=== PATIENT | female | born 1930 | race Two or more races ===

== ENCOUNTER 2016-08-05 15:22 | Inpatient (IN) | payer OTHER ==
[~2016-08-05] VITALS: Ht 162.6 cm; Wt 86.4 kg
[~2016-08-05 15:22] MED LIST: ALLO100T PO; ASPI81TA50 PO; CARV25TA2 PO; CHOL2000 PO; CYCL10TA2 PO; DILT180C29 PO; FOLI0.8T3 PO; FURO80TA72 PO; HYDR-2868 PO; INSU100C4 SQ; INSU100V8 SQ; LATA2.5D3 OP; SEVE2.4P PO; SEVE800T9 PO; SIMV10TA3 PO
[2016-08-05 19:00] VITALS: BP 145/51
[2016-08-05] MEDS ORDERED: MAG HYDROX/ALUMINUM HYD/SIMETH 30 ML ORAL.SUSP PO PRN (20:00)
[2016-08-05] MEDS ORDERED: FENTANYL PF 100 MCG/2 ML VIAL. IV PRN (20:00)
[2016-08-05] MEDS ORDERED: CALCIUM CARBONATE 500 MG TAB.CHEW PO PRN (20:00)
[2016-08-05] MEDS ORDERED: OXYCODONE IR 5 MG TABLET. PO PRN (20:00)
[2016-08-05] MEDS ORDERED: MAGNESIUM HYDROXIDE 2,400 MG/30 ML ORAL.SUSP. PO PRN (20:00)
[2016-08-05] MEDS ORDERED: BISACODYL 10 MG SUPP.RECT. PR PRN (20:00)
[2016-08-05] MEDS ORDERED: PROCHLORPERAZINE 10 MG/2 ML VIAL. IV PRN (20:00)
[2016-08-05] MEDS ORDERED: ACETAMINOPHEN 325 MG TABLET. PO PRN (20:00)
[2016-08-05] MEDS ORDERED: ONDANSETRON PF 4 MG/2 ML VIAL. IV PRN (20:00)
[2016-08-05] MEDS ORDERED: LACTULOSE 20 GM/30 ML SOLUTION. PO PRN (20:00)
[2016-08-05] MEDS ORDERED: PROCHLORPERAZINE 25 MG SUPP.RECT. PR PRN (20:00)
[2016-08-05] MEDS ORDERED: SEVELAMER CARBONATE 800 MG TABLET. PO SCH (21:00)
[2016-08-05] MEDS: LATANOPROST 0.005% OPHTH SOLUTION 2.5ML BOTTLE. OU SCH (21:34)
[2016-08-05] MEDS: CEFTRIAXONE SODIUM 1 GM in IV NORMAL SALINE 50ML 50 ML IV SCH (21:34)
[2016-08-05] MEDS: CYCLOBENZAPRINE 10 MG TABLET. PO SCH (21:35)
[2016-08-05] MEDS: SEVELAMER CARBONATE 2.4 GM PACKET. PO SCH (21:35)
[2016-08-05] MEDS: DOCUSATE SODIUM 100 MG CAPSULE. PO SCH (21:35)
[2016-08-05] MEDS: BENZONATATE 100 MG CAPSULE. PO SCH (21:35)
[2016-08-05] MEDS: INSULIN DETEMIR 300 UNITS/3 ML INSULN.PEN. SQ SCH (21:46)
[2016-08-05] MEDS: HEPARIN PF for SUB-Q USE 5,000 UNIT/0.5 ML VIAL. SQ SCH (21:46)
[2016-08-05] MEDS: AZITHROMYCIN 250 MG in IV NORMAL SALINE 250ML 250 ML IV SCH (22:21)
[2016-08-05] MEDS: IPRATRPIUM/ALBUTEROL 0.5/2.5MG 3 ML NEBU. NEB SCH (22:26)
[2016-08-05] MEDS ORDERED: SODI15OR PO (22:38)
[2016-08-05] MEDS ORDERED: ONDA4TAB12 PO (22:38)
[2016-08-05 23:25] VITALS: BP 105/37
[2016-08-06 03:25] VITALS: BP 119/47
[2016-08-06 06:05] LABS: CALCIUM 7.6 mg/dL (8.5-10.1); CREATININE 6.8 mg/dL (0.6-1.0); GFR 5.8; POTASSIUM 4.9 mmol/L (3.5-5.1)
[2016-08-06] MEDS: HEPARIN PF for SUB-Q USE 5,000 UNIT/0.5 ML VIAL. SQ SCH ×4 (06:14→21:12)
[2016-08-06 07:00] VITALS: BP 115/67
[2016-08-06] MEDS: FUROSEMIDE 80 MG TABLET. PO SCH ×2 (08:01→14:00)
[2016-08-06] MEDS: DILTIAZEM HCL 180 MG CAP.ER.24H PO SCH (08:01)
[2016-08-06] MEDS: ASPIRIN ENTERIC COATED 81 MG TABLET.DR. PO SCH (08:01)
[2016-08-06] MEDS: DOCUSATE SODIUM 100 MG CAPSULE. PO SCH ×2 (08:01→21:03)
[2016-08-06] MEDS: BENZONATATE 100 MG CAPSULE. PO SCH ×3 (08:02→21:03)
[2016-08-06] MEDS: CHOLECALCIFEROL (VITAMIN D3) 1,000 UNIT TABLET PO SCH (08:02)
[2016-08-06] MEDS: CYCLOBENZAPRINE 10 MG TABLET. PO SCH ×3 (08:02→21:03)
[2016-08-06] MEDS: SEVELAMER CARBONATE 2.4 GM PACKET. PO SCH ×3 (08:02→21:03)
[2016-08-06] MEDS ORDERED: ACETAMINOPHEN 325 MG TABLET. PO PRN (09:00)
[2016-08-06] MEDS ORDERED: ALBUTEROL SULFATE 2.5 MG/3 ML NEBU. NEB PRN (09:00)
[2016-08-06] MEDS ORDERED: hydrALAZINE 20 MG/ML VIAL. IVP PRN (09:00)
[2016-08-06] MEDS ORDERED: ONDANSETRON PF 4 MG/2 ML VIAL. IV PRN (09:00)
--- NOTE | 2016-08-06 10:39 | PDOC1 ---
History and Physical Past Medical History Cardiovascular: CAD, HTN Pulmonary: Bronchitis GI: No pertinent hx Renal/: Chronic renal insuff, Chronic renal failure, UTI Endocrine: Diabetes Past Surgical History Past Surgical History: CABG Family History Family History: Heart Disease, High Cholestrol, Hypertension Social History ALCOHOL: none Drugs: None Current Problem List Problem List Problems Medical Problems: (1) ESRD (end stage renal disease) Status: Acute Current Medications Current Medications Current Medications Medications (Trade) Dose Ordered Sig/Homa Start Time Stop Time Status Last Admin Dose Admin Acetaminophen (Tylenol) 325 mg PRN Q6HRS PRN 08/06/16 09:00 Al Hydroxide/Mg Hydroxide (Mylanta Plus Xs) 30 ml PRN Q3HRS PRN 08/05/16 20:00 Albuterol Sulfate (Ventolin Neb Soln) 2.5 mg PRN Q4HRS PRN 08/06/16 09:00 Albuterol/ Ipratropium 3 ml 3 ml RTQID 08/05/16 20:00 08/05/16 22:26 3 ML Allopurinol (Zyloprim) 100 mg DAILYWSUP 08/06/16 17:00 Aspirin (Ecotrin) 81 mg DAILY 08/06/16 09:00 08/06/16 08:01 81 MG Azithromycin/ Sodium Chloride (Zithromax/Iv Sodium Chloride 0.9% 250ml) 250 ml @ 250 mls/hr Q24H 08/05/16 21:00 08/05/16 22:21 250 MLS/HR Benzonatate (Tessalon Perle) 100 mg [id number] 08/05/16 21:00 08/06/16 08:02 100 MG Bisacodyl (Dulcolax Supp) 10 mg PRN DAILY PRN 08/05/16 20:00 Calcium Carbonate/ Glycine (Tums) 500 mg PRN Q3HRS PRN 08/05/16 20:00 Carvedilol (Coreg) 12.5 mg DAILYWLUN 08/06/16 12:00 Ceftriaxone Sodium 1 gm/ Sodium Chloride 50 ml @ 100 mls/hr Q24H 08/05/16 20:00 08/05/16 21:34 100 MLS/HR Cyclobenzaprine HCl (Flexeril) 10 mg TID 08/05/16 21:00 08/06/16 08:02 10 MG Diltiazem HCl (Cardizem 24hr Cd) 180 mg DAILY 08/06/16 09:00 08/06/16 08:01 180 MG Docusate Sodium (Colace) 100 mg BID 08/05/16 21:00 08/06/16 08:01 100 MG Fentanyl Citrate (Fentanyl 2ml Vial) 25 mcg PRN Q2HR PRN 08/05/16 20:00 Furosemide (Lasix) 80 mg [id number] 08/06/16 09:00 08/06/16 08:01 80 MG Heparin Sodium (Porcine) 5,000 unit Q8HRS 08/05/16 22:00 08/06/16 06:14 5,000 UNIT Hydralazine HCl (Apresoline) 10 mg PRN Q4HRS PRN 08/06/16 09:00 Insulin Detemir (Levemir) 25 units QHS 08/05/16 21:00 08/05/16 21:46 25 UNITS Lactulose 20 gm PRN Q12HR PRN 08/05/16 20:00 Latanoprost (Xalatan) 1 drop HS 08/05/16 21:00 08/05/16 21:34 1 DROP Magnesium Hydroxide (Milk Of Magnesia) 2,400 mg PRN Q12HR PRN 08/05/16 20:00 Ondansetron HCl (Zofran) 4 mg PRN Q8HRS PRN 08/06/16 09:00 Oxycodone HCl (Roxicodone) 5 mg PRN Q3HRS PRN 08/05/16 20:00 Prochlorperazine (Compazine) 25 mg PRN Q12HR PRN 08/05/16 20:00 Prochlorperazine Edisylate (Compazine) 10 mg PRN Q6HRS PRN 08/05/16 20:00 Sevelamer Carbonate (Renvela) 400 mg TID 08/05/16 21:00 UNV Vitamin B Complex/ Vitamin C (Bela-Roland) 1 tab DAILYBFRSUP 08/06/16 17:00 Vitamin D (Vitamin D3) 2,000 unit DAILY 08/06/16 09:00 08/06/16 08:02 2,000 UNIT Allergies Allergies Allergies Coded Allergies Type Severity Reaction Last Updated Verified morphine Allergy Intermediate 10/25/14 Yes ROS Review of System CONSTITUTIONAL: No fever or chills EYES: No recent changes SKIN: No rash or itching CARDIOVASCULAR: No chest pain, syncope, palpitations, or edema RESPIRATORY: SOB or cough GASTROINTESTINAL: No nausea, vomiting or abdominal pain NEUROLOGICAL: No headaches or weakness ENDOCRINE: No cold or heat intolerance GENITOURINARY: No urgency or frequency of urination MUSCULOSKELETAL: No back pain or joint pain LYMPHATICS: No enlarged lymph nodes PSYCHIATRIC: No anxiety or depression Physical Exam Physical Exam GEN.: No apparent distress. Alert and oriented. HEENT: Head is normocephalic, atraumatic NECK: Supple. no JVD LUNGS: INSPIRATORY AND EXP WHEEZING. HEART: RRR, S1, S2 present. Peripheral pulses intact ABDOMEN: Soft, nontender. Positive bowel sounds. EXTREMITIES: Without any cyanosis. NEUROLOGIC: Normal speech, normal tone PSYCHIATRIC: Normal affect, normal mood. SKIN: No ulcerations Vitals Vitals Vital Signs Date Time Temp Pulse Resp B/P Pulse Ox O2 Delivery O2 Flow Rate FiO2 08/06/16 08:01 103 115/67 08/06/16 07:00 97.9 16 94 Nasal Cannula 2.0 97.9 Labs Labs Laboratory Tests Test 08/05/16 20:55 08/06/16 05:00 08/06/16 07:15 Glucose (Fingerstick) 297mg/dL (70-99) 259mg/dL (70-99) Sodium Level 137mmol/L (136-145) Potassium Level 4.9mmol/L (3.5-5.1) Chloride Level 96mmol/L (98-107) Carbon Dioxide Level 18mmol/L (21-32) Anion Gap 23 (6-14) Blood Urea Nitrogen 79mg/dL (7-20) Creatinine 6.8mg/dL (0.6-1.0) Estimated GFR (Cockcroft-Gault) 5.8 Glucose Level 320mg/dL (70-99) Calcium Level 7.6mg/dL (8.5-10.1) Laboratory Tests Test 08/05/16 20:55 08/06/16 05:00 08/06/16 07:15 Glucose (Fingerstick) 297mg/dL (70-99) 259mg/dL (70-99) Sodium Level 137mmol/L (136-145) Potassium Level 4.9mmol/L (3.5-5.1) Chloride Level 96mmol/L (98-107) Carbon Dioxide Level 18mmol/L (21-32) Anion Gap 23 (6-14) Blood Urea Nitrogen 79mg/dL (7-20) Creatinine 6.8mg/dL (0.6-1.0) Estimated GFR (Cockcroft-Gault) 5.8 Glucose Level 320mg/dL (70-99) Calcium Level 7.6mg/dL (8.5-10.1) VTE Prophylaxis Ordered VTE Prophylaxis Devices: Yes VTE Pharmacological Prophylaxi: Yes DIMAS LITTLEJOHN MD Aug 06, 2016 10:39
[2016-08-06] MEDS ORDERED: DEXTROSE 50% 25 GM / 50ML DISP.SYRIN. IV PRN (10:45)
[2016-08-06 10:49] VITALS: BP 107/60
[2016-08-06] MEDS ORDERED: GUAIFENESIN 200 MG/10 ML LIQUID. PO PRN (11:00)
[2016-08-06] MEDS: IPRATRPIUM/ALBUTEROL 0.5/2.5MG 3 ML NEBU. NEB SCH ×3 (11:22→20:01)
--- NOTE | 2016-08-06 11:27 | PDOC2 ---
CONSULT Date of Consult Date of Consult DATE: 08/06/16 TIME: 11:23 Reason for Consult Reason for Consult: ESRD Referring Physician Referring Physician: MOIZ Identification/Chief Complaint Chief Complaint SOB Source Source: Chart review, Patient History of Present Illness Reason for Visit: THIS IS AN 85 YR OLD ADMITTED WITH COUGHING AND SOB AND PROB DX OF CAP. SHE HAS ESRD AND IS ON HD IN [place] ON MWF. HER LAST TX WAS SATURDAY. LABS ARE C/W ESRD Past Medical History Cardiovascular: CAD, HTN Pulmonary: Bronchitis GI: No pertinent hx Musculoskeletal: low back pain Renal/: Chronic renal insuff, Chronic renal failure, UTI Endocrine: Diabetes, Hyperparathyroidism Past Surgical History Past Surgical History RIGHT ARM AVF Past Surgical History: CABG Family History Family History: Heart Disease, High Cholestrol, Hypertension Social History ALCOHOL: none Drugs: None Current Problem List Problem List Problems Medical Problems: (1) ESRD (end stage renal disease) Status: Acute Current Medications Current Medications Current Medications Ondansetron HCl (Zofran) 4 mg PRN Q6HRS PRN IV NAUSEA/VOMITING Last administered on 08/05/16 21:38; Start 08/05/16 at 20:00 Prochlorperazine Edisylate (Compazine) 10 mg PRN Q6HRS PRN IV NAUSEA/VOMITING; Start 08/05/16 at 20:00 Prochlorperazine (Compazine) 25 mg PRN Q12HR PRN [place] NAUSEA/VOMITING; Start 08/05 at 20:00 Al Hydroxide/Mg Hydroxide (Mylanta Plus Xs) 30 ml PRN Q3HRS PRN PO HEARTBURN / GAS; Start 08/05/16 at 20:00 Calcium Carbonate/ Glycine (Tums) 500 mg PRN Q3HRS PRN PO UPSET STOMACH; Start 08/05/16 at 20:00 Oxycodone HCl (Roxicodone) 5 mg PRN Q3HRS PRN PO BREAKTHROUGH PAIN; Start at 20:00 Acetaminophen (Tylenol) 650 mg PRN Q6HRS PRN PO MILD PAIN / TEMP; Start at 20:00 Docusate Sodium (Colace) 100 mg BID PO Last administered on 08/06/16 08:01; Start 08/05/16 at 21:00 Magnesium Hydroxide (Milk Of Magnesia) 2,400 mg PRN Q12HR PRN PO CONSTIPATION; Start 08/05/16 at 20:00 Lactulose 20 gm PRN Q12HR PRN PO CONSTIPATION; Start 08/05/16 at 20:00 Bisacodyl (Dulcolax Supp) 10 mg PRN DAILY PRN NH CONSTIPATION; Start 08/05/16 at 20:00 Heparin Sodium (Porcine) 5,000 unit Q8HRS SQ Last administered on 08/06/16 06: 14; Start 08/05/16 at 22:00 Albuterol/ Ipratropium 3 ml 3 ml RTQID NEB Last administered on 08/06/16 11:22 ; Start 08/05/16 at 20:00 Ceftriaxone Sodium 1 gm/ Sodium Chloride 50 ml @ 100 mls/hr Q24H IV Last administered on 08/05/16 21:34; Start 08/05/16 at 20:00 Azithromycin/ Sodium Chloride (Zithromax/Iv Sodium Chloride 0.9% 250ml) 250 ml @ 250 mls/hr Q24H IV Last administered on 08/05/16 22:21; Start 08/05/16 at 21: 00 Fentanyl Citrate (Fentanyl 2ml Vial) 25 mcg PRN Q2HR PRN IV PAIN; Start at 20:00 Allopurinol (Zyloprim) 100 mg DAILYWSUP PO ; Start 08/06/16 at 17:00 Aspirin (Ecotrin) 81 mg DAILY PO Last administered on 08/06/16 08:01; Start at 09:00 Cyclobenzaprine HCl (Flexeril) 10 mg TID PO Last administered on 08/06/16 08: 02; Start 08/05/16 at 21:00 Diltiazem HCl (Cardizem 24hr Cd) 180 mg DAILY PO Last administered on 08:01; Start 08/06/16 at 09:00 Vitamin B Complex/ Vitamin C (Bela-Roland) 1 tab DAILYBFRSUP PO ; Start 08/06/16 at 17:00 Furosemide (Lasix) 80 mg [id number] PO Last administered on 08/06/16 08:01; Start 08/06/16 at 09:00 Hydralazine HCl (Apresoline) 25 mg QTUTHSASU PO ; Start 08/07/16 at 16:00 Latanoprost (Xalatan) 1 drop HS OU Last administered on 08/05/16 21:34; Start 08/05/16 at 21:00 Sevelamer Carbonate (Renvela) 2.4 gm TID PO Last administered on 08/06/16 08: 02; Start 08/05/16 at 21:00 Sevelamer Carbonate (Renvela) 400 mg TID PO ; Start 08/05/16 at 21:00; Status UNV Carvedilol (Coreg) 12.5 mg DAILYWLUN PO ; Start 08/06/16 at 12:00 Vitamin D (Vitamin D3) 2,000 unit DAILY PO Last administered on 08/06/16 08:02 ; Start 08/06/16 at 09:00 Insulin Detemir (Levemir) 25 units QHS SQ Last administered on 08/05/16 21:46; Start 08/05/16 at 21:00 Benzonatate (Tessalon Perle) 100 mg [id number] PO Last administered on 08/06/16 08 :02; Start 08/05/16 at 21:00 Acetaminophen (Tylenol) 325 mg PRN Q6HRS PRN PO MILD PAIN / TEMP; Start at 09:00 Hydralazine HCl (Apresoline) 10 mg PRN Q4HRS PRN IVP ELEVATED BP, SEE COMMENTS ; Start 08/06/16 at 09:00 Ondansetron HCl (Zofran) 4 mg PRN Q8HRS PRN IV NAUSEA/VOMITING; Start 08/06/16 at 09:00 Albuterol Sulfate (Ventolin Neb Soln) 2.5 mg PRN Q4HRS PRN NEB SHORTNESS OF BREATH; Start 08/06/16 at 09:00 Heparin Sodium (Porcine) 5,000 unit Q8HRS SQ ; Start 08/06/16 at 14:00 Insulin Aspart (Novolog) 0-9 UNITS TIDWMEALS SQ ; Start 08/06/16 at 12:00 Dextrose (Dextrose 50%-Water Syringe) 12.5 gm PRN Q15MIN PRN IV SEE COMMENTS; Start 08/06/16 at 10:45 Guaifenesin (Robitussin) 200 mg PRN Q4HRS PRN PO COUGH; Start 08/06/16 at 11:00 Active Scripts Active Reported Ondansetron Odt (Ondansetron) 4 Mg Tab.rapdis 1 Tab PO PRN Q8HRS PRN Sodium Polystyrene Sulfonate 15 Gm/60 Ml Oral.susp 30 Gm PO WEEKLY Novolog (Insulin Aspart) 100 Unit/1 Ml Cartridge 0 SQ sliding scale: 140 - 180 = 1 unit 181 - 240 = 2 units 241 - 300 = 3 units 301 - 400 = 4 units 401 - 500 = 5 units Lantus (Insulin Glargine,Hum.rec.anlog) 100 Unit/1 Ml Vial 25 Unit SQ HS Renvela (Sevelamer Carbonate) 2.4 Gm Powd.pack 2.4 Gm PO TID take with 20 oz cranberry juice Nephro-Roland Tablet (Folic Acid/Vitamin B Comp W-C) 0.8 Mg Tablet 1 Tab PO DAILYBFRSUP Vitamin D (Cholecalciferol (Vitamin D3)) 2,000 Unit Capsule 1 Cap PO HS Latanoprost 2.5 Ml Drops 1 Drop OP HS Hydralazine Hcl 25 Mg Tablet 1 Tab PO QTUTHSASU Allopurinol 100 Mg Tablet 1 Tab PO DAILYWSUP Cyclobenzaprine Hcl 10 Mg Tablet 1 Tab PO TID Diltiazem 24HR Cd (Diltiazem Hcl) 180 Mg Cap.er.24h 1 Cap PO DAILY Lasix (Furosemide) 80 Mg Tablet 1 Tab PO BID Carvedilol 25 Mg Tablet 12.5 Tab PO DAILYWLUN Aspir-Low (Aspirin) 81 Mg Tablet. 1 Tab PO DAILY Allergies Allergies: Coded Allergies: morphine (Verified Allergy, Intermediate, 10/25/14) ROS General: YES: Fatigue, Malaise PSYCHOLOGICAL ROS: YES: Anxiety Eyes: Yes Blurry vision HEENT: YES: Heacaches Respiratory: YES: Cough, Shortness of breath, Sputum Changes Cardiovascular: yes Orthopnea Gastrointestinal: Yes Constipation Genitourinary: YES Other (ANURIA) Musculoskeletal: Yes Muscular Weakness Neurological: Yes Weakness Skin: Yes Dry Skin Physical Exam General: Alert, Cooperative HEENT: Atraumatic, PERRLA Lungs: Other (DECREASED AT BASES) Heart: Regular rate Abdomen: Normal bowel sounds Extremities: No clubbing, No edema Skin: No rashes Neuro: Normal speech, Cranial nerves 3-12 NL Psych/Mental Status: Mental status NL, Mood NL MUSCULOSKELETAL: No deformity, No swelling Vitals VITALS Vital Signs Date Time Temp Pulse Resp B/P Pulse Ox O2 Delivery O2 Flow Rate FiO2 08/06/16 10:49 97.9 104 17 107/60 100 Nasal Cannula 2.0 97.9 Labs Labs Laboratory Tests Test 08/05/16 20:55 08/06/16 05:00 08/06/16 07:15 Glucose (Fingerstick) 297mg/dL (70-99) 259mg/dL (70-99) Sodium Level 137mmol/L (136-145) Potassium Level 4.9mmol/L (3.5-5.1) Chloride Level 96mmol/L (98-107) Carbon Dioxide Level 18mmol/L (21-32) Anion Gap 23 (6-14) Blood Urea Nitrogen 79mg/dL (7-20) Creatinine 6.8mg/dL (0.6-1.0) Estimated GFR (Cockcroft-Gault) 5.8 Glucose Level 320mg/dL (70-99) Calcium Level 7.6mg/dL (8.5-10.1) Laboratory Tests Test 08/05/16 20:55 08/06/16 05:00 08/06/16 07:15 Glucose (Fingerstick) 297mg/dL (70-99) 259mg/dL (70-99) Sodium Level 137mmol/L (136-145) Potassium Level 4.9mmol/L (3.5-5.1) Chloride Level 96mmol/L (98-107) Carbon Dioxide Level 18mmol/L (21-32) Anion Gap 23 (6-14) Blood Urea Nitrogen 79mg/dL (7-20) Creatinine 6.8mg/dL (0.6-1.0) Estimated GFR (Cockcroft-Gault) 5.8 Glucose Level 320mg/dL (70-99) Calcium Level 7.6mg/dL (8.5-10.1) Assessment/Plan Assessment/Plan IMP CAP/BRONCHITIS ANEMIA ESRD PLAN ANTIBIOTICS HD TODAY UF TO [facility] UPDATED PT AND FAMILY NANCY CALERO MD Aug 06, 2016 11:27
[2016-08-06] MEDS: CARVEDILOL 12.5 MG TABLET. PO SCH (12:00)
[2016-08-06] MEDS: INSULIN ASPART 300 UNITS/3 ML INSULN.PEN SQ SCH ×2 (12:40→17:00)
[2016-08-06 13:17] LABS: OBC FLU VALID
--- NOTE | 2016-08-06 13:23 | HP ---
ADMIT DATE: 08/06/2016 CHIEF COMPLAINT: Cough, intractable. HISTORY OF PRESENT ILLNESS: An 85-year-old female patient with history of hypertension and diabetes who presented to the ER at [facility] for intractable cough. The patient has a history of end-stage renal disease, currently on hemodialysis. She says her complaints have been there from last Saturday. She is coughing up whitish expectoration. No other symptoms such as hematemesis or hemoptysis. She has never been diagnosed with COPD. 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 Initial chest x-ray did not show any signs of pneumonia. However, she has diffuse expiratory and inspiratory wheezes at the time of her presentation. At the time of my examination, the patient still complains of some cough and expectoration and difficulty to breathe. PAST MEDICAL HISTORY: Please see my electronic H and P. REVIEW OF SYSTEMS: Please see my electronic H and P. PHYSICAL EXAMINATION: Please see my electronic H and P. LABORATORY FINDINGS: Data reviewed from [facility]: WBC 14.6, hemoglobin 11.8, hematocrit is 35, MCV is 35, and platelets 90. Venous lactate is 2.8. Troponin is less than 0.01. Sodium is 140, potassium 4, chloride is 98, carbon dioxide 19, anion gap is 23, calcium is 8.1, and creatinine is 5.9. Chest x-ray: No acute process seen. ASSESSMENT AND PLAN: 1. Acute respiratory distress present on admission, unclear etiology, possible bronchitis with reactive airway disease versus any viral infectious process. 2. Diabetes mellitus with hyperglycemia. 3. End-stage renal disease. 4. History of coronary artery disease with coronary artery bypass graft. 5. Hypertension. PLAN: 1. The patient has been started on broad-spectrum antibiotics, and I will continue at this time and ask Pulmonary and Critical Care to evaluate her for further workup. 2. Nephrology has been consulted. 3. I will start her on home-dose of Levemir with sliding scale insulin. 4. Labs such as influenza PCR have been ordered. 5. DVT prophylaxis with heparin. 6. Repeat chest x-ray this morning is pending. 7. She has been kept on telemetry. Prognosis is guarded. Sputum cultures. Plan was discussed with the patient's daughter and the patient. They agreed with the current plan. DIMAS LITTLEJOHN MD DR: CAPO/regan JOB#: [id number] / [id number] YU
--- NOTE | 2016-08-06 14:24 | RAD ---
Portable chest, 08/06/2016: History: Pneumonia Comparison is made to a study from 11/30/2015. There has been a previous median sternotomy. The heart is enlarged. The pulmonary vascularity is normal. There is mild linear atelectasis in the right lung base and lingula, superimposed upon mild lingular scarring. No significant pleural fluid is identified. IMPRESSION: 1. Cardiomegaly and aortic atherosclerosis. 2. Mild right basilar and lingular atelectasis.
[2016-08-06 14:52] VITALS: BP 121/72
[2016-08-06 16:42] LABS: BASO # 0.1 x10^3/uL (0.0-0.2); BASO % 1 % (0-3); EOS % 0 % (0-3); HEMATOCRIT 31.5 % (36.0-47.0); HEMOGLOBIN 10.4 g/dL (12.0-15.5); LYMPH # 1.9 x10^3/uL (1.0-4.8); LYMPH % 20 % (24-48); MEAN CORPUSCULAR HEMOGLOBIN 36 pg (25-35); MEAN CORPUSCULAR HGB CONC 33 g/dL (31-37); MEAN CORPUSCULAR VOLUME 108 fL (79-100); MONO % 8 % (0-9); NEUT % 72 % (31-73); PLATELET COUNT 66 x10^3/uL (140-400); RED BLOOD COUNT 2.93 x10^6/uL (3.50-5.40); RED CELL DISTRIBUTION WIDTH 15.4 % (11.5-14.5); WHITE BLOOD COUNT 9.8 x10^3/uL (4.0-11.0)
[2016-08-06 16:55] LABS: INR 1.6 (0.8-1.1); PROTHROMBIN TIME PATIENT 17.7 SEC (11.7-14.0)
[2016-08-06] MEDS ORDERED: ALLOPURINOL 100 MG TABLET. PO SCH (17:00)
[2016-08-06] MEDS ORDERED: FOLIC/VIT B COMP W-C (RENAL) TABLET. PO SCH (17:00)
[2016-08-06 18:59] LABS: MAGNESIUM 2.3 mg/dL (1.8-2.4); PHOSPHORUS 8.1 mg/dL (2.6-4.7)
[2016-08-06 19:30] VITALS: BP 109/47
[2016-08-06] MEDS: CEFTRIAXONE SODIUM 1 GM in IV NORMAL SALINE 50ML 50 ML IV SCH (20:04)
--- NOTE | 2016-08-06 20:30 | PDOC ---
PULMONARY PROGRESS NOTES Vitals Vital Signs Date Time Temp Pulse Resp B/P Pulse Ox O2 Delivery O2 Flow Rate FiO2 08/06/16 20:02 Nasal Cannula 3.0 08/06/16 14:52 98.3 97 17 121/72 93 98.3 Lungs: Other Cardiovascular: S1, S2 Labs Laboratory Tests Test 08/05/16 20:55 08/06/16 05:00 08/06/16 07:15 08/06/16 11:11 Glucose (Fingerstick) 297mg/dL (70-99) 259mg/dL (70-99) 214mg/dL (70-99) Sodium Level 137mmol/L (136-145) Potassium Level 4.9mmol/L (3.5-5.1) Chloride Level 96mmol/L (98-107) Carbon Dioxide Level 18mmol/L (21-32) Anion Gap 23 (6-14) Blood Urea Nitrogen 79mg/dL (7-20) Creatinine 6.8mg/dL (0.6-1.0) Estimated GFR (Cockcroft-Gault) 5.8 Glucose Level 320mg/dL (70-99) Calcium Level 7.6mg/dL (8.5-10.1) Test 08/06/16 12:45 08/06/16 16:15 08/06/16 17:34 08/06/16 19:56 Influenza Type A Antigen Negative (NEGATIVE) Influenza Type B Antigen Negative (NEGATIVE) White Blood Count 9.8x10^3/uL (4.0-11.0) Red Blood Count 2.93x10^6/uL (3.50-5.40) Hemoglobin 10.4g/dL (12.0-15.5) Hematocrit 31.5% (36.0-47.0) Mean Corpuscular Volume 108fL (79-100) Mean Corpuscular Hemoglobin 36pg (25-35) Mean Corpuscular Hemoglobin Concent 33g/dL (31-37) Red Cell Distribution Width 15.4% (11.5-14.5) Platelet Count 66x10^3/uL (140-400) Neutrophils (%) (Auto) 72% (31-73) Lymphocytes (%) (Auto) 20% (24-48) Monocytes (%) (Auto) 8% (0-9) Eosinophils (%) (Auto) 0% (0-3) Basophils (%) (Auto) 1% (0-3) Neutrophils # (Auto) 7.0x10^3uL (1.8-7.7) Lymphocytes # (Auto) 1.9x10^3/uL (1.0-4.8) Monocytes # (Auto) 0.7x10^3/uL (0.0-1.1) Eosinophils # (Auto) 0.0x10^3/uL (0.0-0.7) Basophils # (Auto) 0.1x10^3/uL (0.0-0.2) Prothrombin Time 17.7SEC (11.7-14.0) Prothromb Time International Ratio 1.6 (0.8-1.1) Phosphorus Level 8.1mg/dL (2.6-4.7) Magnesium Level 2.3mg/dL (1.8-2.4) LN-Jml-A-Type Natriuretic Peptide > 13209ei/mL (0-449) Glucose (Fingerstick) 133mg/dL (70-99) 99mg/dL (70-99) Laboratory Tests Test 08/05/16 20:55 08/06/16 05:00 08/06/16 07:15 08/06/16 11:11 Glucose (Fingerstick) 297mg/dL (70-99) 259mg/dL (70-99) 214mg/dL (70-99) Sodium Level 137mmol/L (136-145) Potassium Level 4.9mmol/L (3.5-5.1) Chloride Level 96mmol/L (98-107) Carbon Dioxide Level 18mmol/L (21-32) Anion Gap 23 (6-14) Blood Urea Nitrogen 79mg/dL (7-20) Creatinine 6.8mg/dL (0.6-1.0) Estimated GFR (Cockcroft-Gault) 5.8 Glucose Level 320mg/dL (70-99) Calcium Level 7.6mg/dL (8.5-10.1) Test 08/06/16 12:45 08/06/16 16:15 08/06/16 17:34 08/06/16 19:56 Influenza Type A Antigen Negative (NEGATIVE) Influenza Type B Antigen Negative (NEGATIVE) White Blood Count 9.8x10^3/uL (4.0-11.0) Red Blood Count 2.93x10^6/uL (3.50-5.40) Hemoglobin 10.4g/dL (12.0-15.5) Hematocrit 31.5% (36.0-47.0) Mean Corpuscular Volume 108fL (79-100) Mean Corpuscular Hemoglobin 36pg (25-35) Mean Corpuscular Hemoglobin Concent 33g/dL (31-37) Red Cell Distribution Width 15.4% (11.5-14.5) Platelet Count 66x10^3/uL (140-400) Neutrophils (%) (Auto) 72% (31-73) Lymphocytes (%) (Auto) 20% (24-48) Monocytes (%) (Auto) 8% (0-9) Eosinophils (%) (Auto) 0% (0-3) Basophils (%) (Auto) 1% (0-3) Neutrophils # (Auto) 7.0x10^3uL (1.8-7.7) Lymphocytes # (Auto) 1.9x10^3/uL (1.0-4.8) Monocytes # (Auto) 0.7x10^3/uL (0.0-1.1) Eosinophils # (Auto) 0.0x10^3/uL (0.0-0.7) Basophils # (Auto) 0.1x10^3/uL (0.0-0.2) Prothrombin Time 17.7SEC (11.7-14.0) Prothromb Time International Ratio 1.6 (0.8-1.1) Phosphorus Level 8.1mg/dL (2.6-4.7) Magnesium Level 2.3mg/dL (1.8-2.4) PL-Yua-X-Type Natriuretic Peptide > 50567io/mL (0-449) Glucose (Fingerstick) 133mg/dL (70-99) 99mg/dL (70-99) Medications Active Scripts Medications Dose Route/Sig Days Date Category Dose Instructions Ondansetron Odt (Ondansetron) 4 Mg Tab.rapdis 1 Tab PO PRN Q8HRS PRN 08/05/16 Reported Sodium Polystyrene Sulfonate 15 Gm/60 Ml Oral.susp 30 Gm PO WEEKLY 08/05/16 Reported Novolog (Insulin Aspart) 100 Unit/1 Ml Cartridge 0 SQ 11/26/15 Reported sliding scale: 140 - 180 = 1 unit 181 - 240 = 2 units 241 - 300 = 3 units 301 - 400 = 4 units 401 - 500 = 5 units Lantus (Insulin Glargine,Hum.rec.anlog) 100 Unit/1 Ml Vial 25 Unit SQ HS 11/26/15 Reported Renvela (Sevelamer Carbonate) 2.4 Gm Powd.pack 2.4 Gm PO TID 11/26/15 Reported take with 20 oz cranberry juice Nephro-Roland Tablet (Folic Acid/Vitamin B Comp W-C) 0.8 Mg Tablet 1 Tab PO DAILYBFRSUP 11/26/15 Reported Vitamin D (Cholecalciferol (Vitamin D3)) 2,000 Unit Capsule 1 Cap PO HS 11/26/15 Reported Latanoprost 2.5 Ml Drops 1 Drop OP HS 11/26/15 Reported Hydralazine Hcl 25 Mg Tablet 1 Tab PO QTUTHSASU 11/26/15 Reported Allopurinol 100 Mg Tablet 1 Tab PO DAILYWSUP 11/26/15 Reported Cyclobenzaprine Hcl 10 Mg Tablet 1 Tab PO TID 11/26/15 Reported Diltiazem 24HR Cd (Diltiazem Hcl) 180 Mg Cap.er.24h 1 Cap PO DAILY 11/26/15 Reported Lasix (Furosemide) 80 Mg Tablet 1 Tab PO BID 11/26/15 Reported Carvedilol 25 Mg Tablet 12.5 Tab PO DAILYWLUN 11/26/15 Reported Aspir-Low (Aspirin) 81 Mg Tablet. 1 Tab PO DAILY 11/26/15 Reported Impression . FULL NOTE DICTATED AGREE WITH CURRENT RX OK OT D/C HOME IN AM ON PRED TAPER AND DOXY FOLLOW UP WITH PCP ADD PPI JULIANE MILLER MD Aug 06, 2016 20:30
[2016-08-06] MEDS ORDERED: DARBEPOETIN ALFA 60 MCG/0.3 ML DISP.SYRIN. SQ SCH (21:00)
[2016-08-06] MEDS: AZITHROMYCIN 250 MG in IV NORMAL SALINE 250ML 250 ML IV SCH (21:01)
[2016-08-06] MEDS: LATANOPROST 0.005% OPHTH SOLUTION 2.5ML BOTTLE. OU SCH (21:03)
[2016-08-06] MEDS: INSULIN DETEMIR 300 UNITS/3 ML INSULN.PEN. SQ SCH (21:06)
[2016-08-06 22:41] VITALS: BP 126/45
[2016-08-07 03:27] VITALS: BP 100/64
--- NOTE | 2016-08-07 05:48 | CONS ---
DATE OF CONSULTATION: 08/06/2016 ATTENDING PHYSICIAN: Dr. Miles. CONSULTING PHYSICIAN: Dr. Juliane Alonso. REASON FOR CONSULTATION: The patient is seen in Pulmonary consultation at the request of Dr. Miles for evaluation of cough and shortness of air. HISTORY OF PRESENT ILLNESS: The patient was admitted with coughing and shortness of air. She states that the cough has been severe to the point where it is interfering with sleep and most of her activities. She was also wheezing. She is normally on dialysis Saturday, Saturday and Saturday. She presented, had a chest x-ray, which I personally reviewed. The x-ray revealed some cardiomegaly with atelectasis, no infiltrates. The patient denies fever, chills or night sweats. She is up-to-date on her flu vaccination. PAST MEDICAL HISTORY: Otherwise remarkable for coronary artery disease; hypertension; bronchitis; chronic renal insufficiency, on hemodialysis; UTI; diabetes. PAST SURGICAL HISTORY: Status post coronary artery bypass grafting. FAMILY HISTORY: Heart disease, hyperlipidemia, hypertension. SOCIAL HISTORY: She has never smoked. Denies any alcohol intake. REVIEW OF SYSTEMS: As indicated above, otherwise, a 10-point system was reviewed and negative. The patient was ____ about reflux. She denies any reflux symptomatology. She does not drink lots of caffeinated beverages. ALLERGIES: MORPHINE. MEDICATIONS: List was reviewed. She is currently on antibiotics, nebulized treatments, Tessalon Perles, Coreg. She is not on an HENRY inhibitor. PHYSICAL EXAMINATION: GENERAL: She appears to be younger than stated age, in no respiratory distress. VITAL SIGNS: Stable, 2 liters of oxygen supplementation. HEENT: Eyes, the sclerae were nonicteric. NECK: Jugular venous distention was not elevated. No lymphadenopathy. CHEST: Full expansion. LUNGS: Adequate airway flow with no wheezes. CARDIOVASCULAR: Regular rate and rhythm with S1, S2, no S3. ABDOMEN: Soft, nontender, nondistended. EXTREMITIES: No clubbing, cyanosis or edema. NEUROLOGIC: The patient was awake, alert, following commands. A detailed neuro exam was not performed. LABORATORY DATA: Reviewed. Chest x-ray reviewed as indicated above. White count was normal. Electrolytes were noted. INR was 1.6. IMPRESSION: 1. Cough related to viral tracheobronchitis. 2. Abnormal x-ray with some atelectasis. 3. End-stage renal disease, on hemodialysis. 4. Possible reflux. PLAN: 1. Recommend switching to oral doxycycline and possibly discharge home in the a.m. on the taper prednisone. 2. Continue Tessalon Perles. 3. We will add a PPI. 4. The patient informed that the cough may last approximately 6-8 weeks, with time, it will certainly improve. I do appreciate the privilege in sharing in the patient's care. JULIANE ALONSO MD DR: [email or web address]/regan JOB#: [id number] / [id number]
[2016-08-07] MEDS: HEPARIN PF for SUB-Q USE 5,000 UNIT/0.5 ML VIAL. SQ SCH ×2 (05:54→14:00)
[2016-08-07 07:00] VITALS: BP 133/77
[2016-08-07] MEDS ORDERED: PANTOPRAZOLE 40 MG TABLET.DR. PO SCH (07:30)
[2016-08-07] MEDS: IPRATRPIUM/ALBUTEROL 0.5/2.5MG 3 ML NEBU. NEB SCH ×2 (07:30→11:27)
[2016-08-07] MEDS: INSULIN ASPART 300 UNITS/3 ML INSULN.PEN SQ SCH ×2 (07:51→12:45)
--- NOTE | 2016-08-07 09:01 | PDOC ---
PULMONARY PROGRESS NOTES Subjective pt better wants to go home Vitals Vital Signs Date Time Temp Pulse Resp B/P Pulse Ox O2 Delivery O2 Flow Rate FiO2 08/07/16 07:30 96 Nasal Cannula 3.0 08/07/16 07:00 98.4 122 16 133/77 98.4 ROS: No Nausea, No Chest Pain, No Abdominal Pain General: Alert Lungs: Crackles Cardiovascular: S1, S2 Abdomen: Soft Neuro Exam: Alert Extremities: No Edema Skin: Warm Labs Laboratory Tests Test 08/05/16 20:55 08/06/16 05:00 08/06/16 07:15 08/06/16 11:11 Glucose (Fingerstick) 297mg/dL (70-99) 259mg/dL (70-99) 214mg/dL (70-99) Sodium Level 137mmol/L (136-145) Potassium Level 4.9mmol/L (3.5-5.1) Chloride Level 96mmol/L (98-107) Carbon Dioxide Level 18mmol/L (21-32) Anion Gap 23 (6-14) Blood Urea Nitrogen 79mg/dL (7-20) Creatinine 6.8mg/dL (0.6-1.0) Estimated GFR (Cockcroft-Gault) 5.8 Glucose Level 320mg/dL (70-99) Calcium Level 7.6mg/dL (8.5-10.1) Test 08/06/16 12:45 08/06/16 16:15 08/06/16 17:34 08/06/16 19:56 Influenza Type A Antigen Negative (NEGATIVE) Influenza Type B Antigen Negative (NEGATIVE) White Blood Count 9.8x10^3/uL (4.0-11.0) Red Blood Count 2.93x10^6/uL (3.50-5.40) Hemoglobin 10.4g/dL (12.0-15.5) Hematocrit 31.5% (36.0-47.0) Mean Corpuscular Volume 108fL (79-100) Mean Corpuscular Hemoglobin 36pg (25-35) Mean Corpuscular Hemoglobin Concent 33g/dL (31-37) Red Cell Distribution Width 15.4% (11.5-14.5) Platelet Count 66x10^3/uL (140-400) Neutrophils (%) (Auto) 72% (31-73) Lymphocytes (%) (Auto) 20% (24-48) Monocytes (%) (Auto) 8% (0-9) Eosinophils (%) (Auto) 0% (0-3) Basophils (%) (Auto) 1% (0-3) Neutrophils # (Auto) 7.0x10^3uL (1.8-7.7) Lymphocytes # (Auto) 1.9x10^3/uL (1.0-4.8) Monocytes # (Auto) 0.7x10^3/uL (0.0-1.1) Eosinophils # (Auto) 0.0x10^3/uL (0.0-0.7) Basophils # (Auto) 0.1x10^3/uL (0.0-0.2) Prothrombin Time 17.7SEC (11.7-14.0) Prothromb Time International Ratio 1.6 (0.8-1.1) Phosphorus Level 8.1mg/dL (2.6-4.7) Magnesium Level 2.3mg/dL (1.8-2.4) VJ-Zfp-J-Type Natriuretic Peptide > 37675lh/mL (0-449) Glucose (Fingerstick) 133mg/dL (70-99) 99mg/dL (70-99) Test 08/07/16 07:13 08/07/16 07:29 Glucose (Fingerstick) 29mg/dL (70-99) 157mg/dL (70-99) Laboratory Tests Test 08/06/16 11:11 08/06/16 12:45 08/06/16 16:15 08/06/16 17:34 Glucose (Fingerstick) 214mg/dL (70-99) 133mg/dL (70-99) Influenza Type A Antigen Negative (NEGATIVE) Influenza Type B Antigen Negative (NEGATIVE) White Blood Count 9.8x10^3/uL (4.0-11.0) Red Blood Count 2.93x10^6/uL (3.50-5.40) Hemoglobin 10.4g/dL (12.0-15.5) Hematocrit 31.5% (36.0-47.0) Mean Corpuscular Volume 108fL (79-100) Mean Corpuscular Hemoglobin 36pg (25-35) Mean Corpuscular Hemoglobin Concent 33g/dL (31-37) Red Cell Distribution Width 15.4% (11.5-14.5) Platelet Count 66x10^3/uL (140-400) Neutrophils (%) (Auto) 72% (31-73) Lymphocytes (%) (Auto) 20% (24-48) Monocytes (%) (Auto) 8% (0-9) Eosinophils (%) (Auto) 0% (0-3) Basophils (%) (Auto) 1% (0-3) Neutrophils # (Auto) 7.0x10^3uL (1.8-7.7) Lymphocytes # (Auto) 1.9x10^3/uL (1.0-4.8) Monocytes # (Auto) 0.7x10^3/uL (0.0-1.1) Eosinophils # (Auto) 0.0x10^3/uL (0.0-0.7) Basophils # (Auto) 0.1x10^3/uL (0.0-0.2) Prothrombin Time 17.7SEC (11.7-14.0) Prothromb Time International Ratio 1.6 (0.8-1.1) Phosphorus Level 8.1mg/dL (2.6-4.7) Magnesium Level 2.3mg/dL (1.8-2.4) GZ-Tps-S-Type Natriuretic Peptide > 28974ap/mL (0-449) Test 08/06/16 19:56 08/07/16 07:13 08/07/16 07:29 Glucose (Fingerstick) 99mg/dL (70-99) 29mg/dL (70-99) 157mg/dL (70-99) Medications Active Scripts Medications Dose Route/Sig Days Date Category Dose Instructions Ondansetron Odt (Ondansetron) 4 Mg Tab.rapdis 1 Tab PO PRN Q8HRS PRN 08/05/16 Reported Sodium Polystyrene Sulfonate 15 Gm/60 Ml Oral.susp 30 Gm PO WEEKLY 08/05/16 Reported Novolog (Insulin Aspart) 100 Unit/1 Ml Cartridge 0 SQ 11/26/15 Reported sliding scale: 140 - 180 = 1 unit 181 - 240 = 2 units 241 - 300 = 3 units 301 - 400 = 4 units 401 - 500 = 5 units Lantus (Insulin Glargine,Hum.rec.anlog) 100 Unit/1 Ml Vial 25 Unit SQ HS 11/26/15 Reported Renvela (Sevelamer Carbonate) 2.4 Gm Powd.pack 2.4 Gm PO TID 11/26/15 Reported take with 20 oz cranberry juice Nephro-Roland Tablet (Folic Acid/Vitamin B Comp W-C) 0.8 Mg Tablet 1 Tab PO DAILYBFRSUP 11/26/15 Reported Vitamin D (Cholecalciferol (Vitamin D3)) 2,000 Unit Capsule 1 Cap PO HS 11/26/15 Reported Latanoprost 2.5 Ml Drops 1 Drop OP HS 11/26/15 Reported Hydralazine Hcl 25 Mg Tablet 1 Tab PO QTUTHSASU 11/26/15 Reported Allopurinol 100 Mg Tablet 1 Tab PO DAILYWSUP 11/26/15 Reported Cyclobenzaprine Hcl 10 Mg Tablet 1 Tab PO TID 11/26/15 Reported Diltiazem 24HR Cd (Diltiazem Hcl) 180 Mg Cap.er.24h 1 Cap PO DAILY 11/26/15 Reported Lasix (Furosemide) 80 Mg Tablet 1 Tab PO BID 11/26/15 Reported Carvedilol 25 Mg Tablet 12.5 Tab PO DAILYWLUN 11/26/15 Reported Aspir-Low (Aspirin) 81 Mg Tablet.dr 1 Tab PO DAILY 11/26/15 Reported Impression . 1. Cough related to viral tracheobronchitis. 2. Abnormal x-ray with some atelectasis. 3. End-stage renal disease, on hemodialysis. 4. Possible reflux. Plan . d/c home on current rx d/w and family at bedside 1. Recommend switching to oral doxycycline and pred 2. Continue Tessalon Perles. 3. continue PPI 4. The patient informed that the cough may last approximately 6-8 weeks, with time, it will certainly improve. JULIANE MILLER MD Aug 07, 2016 09:01
--- NOTE | 2016-08-07 09:18 | PDOC ---
PROGRESS NOTES Vitals Vitals Vital Signs Date Time Temp Pulse Resp B/P Pulse Ox O2 Delivery O2 Flow Rate FiO2 08/07/16 07:30 96 Nasal Cannula 3.0 08/07/16 07:00 98.4 122 16 133/77 98.4 Physical Exam General: Alert, Cooperative Heart: Regular rate Lungs: Other Abdomen: Normal bowel sounds Extremities: No clubbing, No edema Skin: No rashes Labs LABS Laboratory Tests Test 08/06/16 11:11 08/06/16 12:45 08/06/16 16:15 08/06/16 17:34 Glucose (Fingerstick) 214mg/dL (70-99) 133mg/dL (70-99) Influenza Type A Antigen Negative (NEGATIVE) Influenza Type B Antigen Negative (NEGATIVE) White Blood Count 9.8x10^3/uL (4.0-11.0) Red Blood Count 2.93x10^6/uL (3.50-5.40) Hemoglobin 10.4g/dL (12.0-15.5) Hematocrit 31.5% (36.0-47.0) Mean Corpuscular Volume 108fL (79-100) Mean Corpuscular Hemoglobin 36pg (25-35) Mean Corpuscular Hemoglobin Concent 33g/dL (31-37) Red Cell Distribution Width 15.4% (11.5-14.5) Platelet Count 66x10^3/uL (140-400) Neutrophils (%) (Auto) 72% (31-73) Lymphocytes (%) (Auto) 20% (24-48) Monocytes (%) (Auto) 8% (0-9) Eosinophils (%) (Auto) 0% (0-3) Basophils (%) (Auto) 1% (0-3) Neutrophils # (Auto) 7.0x10^3uL (1.8-7.7) Lymphocytes # (Auto) 1.9x10^3/uL (1.0-4.8) Monocytes # (Auto) 0.7x10^3/uL (0.0-1.1) Eosinophils # (Auto) 0.0x10^3/uL (0.0-0.7) Basophils # (Auto) 0.1x10^3/uL (0.0-0.2) Prothrombin Time 17.7SEC (11.7-14.0) Prothromb Time International Ratio 1.6 (0.8-1.1) Phosphorus Level 8.1mg/dL (2.6-4.7) Magnesium Level 2.3mg/dL (1.8-2.4) WJ-Xes-Y-Type Natriuretic Peptide > 87728fd/mL (0-449) Test 08/06/16 19:56 08/07/16 07:13 08/07/16 07:29 Glucose (Fingerstick) 99mg/dL (70-99) 29mg/dL (70-99) 157mg/dL (70-99) Assessment and Plan Assessmemt and Plan Problems Medical Problems: (1) ESRD (end stage renal disease) Status: Acute Problems: Comment Review of Relevant I have reviewed the following items smith (where applicable) has been applied. Labs Laboratory Tests Test 08/05/16 20:55 08/06/16 05:00 08/06/16 07:15 08/06/16 11:11 Glucose (Fingerstick) 297mg/dL (70-99) 259mg/dL (70-99) 214mg/dL (70-99) Sodium Level 137mmol/L (136-145) Potassium Level 4.9mmol/L (3.5-5.1) Chloride Level 96mmol/L (98-107) Carbon Dioxide Level 18mmol/L (21-32) Anion Gap 23 (6-14) Blood Urea Nitrogen 79mg/dL (7-20) Creatinine 6.8mg/dL (0.6-1.0) Estimated GFR (Cockcroft-Gault) 5.8 Glucose Level 320mg/dL (70-99) Calcium Level 7.6mg/dL (8.5-10.1) Test 08/06/16 12:45 08/06/16 16:15 08/06/16 17:34 08/06/16 19:56 Influenza Type A Antigen Negative (NEGATIVE) Influenza Type B Antigen Negative (NEGATIVE) White Blood Count 9.8x10^3/uL (4.0-11.0) Red Blood Count 2.93x10^6/uL (3.50-5.40) Hemoglobin 10.4g/dL (12.0-15.5) Hematocrit 31.5% (36.0-47.0) Mean Corpuscular Volume 108fL (79-100) Mean Corpuscular Hemoglobin 36pg (25-35) Mean Corpuscular Hemoglobin Concent 33g/dL (31-37) Red Cell Distribution Width 15.4% (11.5-14.5) Platelet Count 66x10^3/uL (140-400) Neutrophils (%) (Auto) 72% (31-73) Lymphocytes (%) (Auto) 20% (24-48) Monocytes (%) (Auto) 8% (0-9) Eosinophils (%) (Auto) 0% (0-3) Basophils (%) (Auto) 1% (0-3) Neutrophils # (Auto) 7.0x10^3uL (1.8-7.7) Lymphocytes # (Auto) 1.9x10^3/uL (1.0-4.8) Monocytes # (Auto) 0.7x10^3/uL (0.0-1.1) Eosinophils # (Auto) 0.0x10^3/uL (0.0-0.7) Basophils # (Auto) 0.1x10^3/uL (0.0-0.2) Prothrombin Time 17.7SEC (11.7-14.0) Prothromb Time International Ratio 1.6 (0.8-1.1) Phosphorus Level 8.1mg/dL (2.6-4.7) Magnesium Level 2.3mg/dL (1.8-2.4) FB-Mnj-C-Type Natriuretic Peptide > 39577kn/mL (0-449) Glucose (Fingerstick) 133mg/dL (70-99) 99mg/dL (70-99) Test 08/07/16 07:13 08/07/16 07:29 Glucose (Fingerstick) 29mg/dL (70-99) 157mg/dL (70-99) Laboratory Tests Test 08/06/16 11:11 08/06/16 12:45 08/06/16 16:15 08/06/16 17:34 Glucose (Fingerstick) 214mg/dL (70-99) 133mg/dL (70-99) Influenza Type A Antigen Negative (NEGATIVE) Influenza Type B Antigen Negative (NEGATIVE) White Blood Count 9.8x10^3/uL (4.0-11.0) Red Blood Count 2.93x10^6/uL (3.50-5.40) Hemoglobin 10.4g/dL (12.0-15.5) Hematocrit 31.5% (36.0-47.0) Mean Corpuscular Volume 108fL (79-100) Mean Corpuscular Hemoglobin 36pg (25-35) Mean Corpuscular Hemoglobin Concent 33g/dL (31-37) Red Cell Distribution Width 15.4% (11.5-14.5) Platelet Count 66x10^3/uL (140-400) Neutrophils (%) (Auto) 72% (31-73) Lymphocytes (%) (Auto) 20% (24-48) Monocytes (%) (Auto) 8% (0-9) Eosinophils (%) (Auto) 0% (0-3) Basophils (%) (Auto) 1% (0-3) Neutrophils # (Auto) 7.0x10^3uL (1.8-7.7) Lymphocytes # (Auto) 1.9x10^3/uL (1.0-4.8) Monocytes # (Auto) 0.7x10^3/uL (0.0-1.1) Eosinophils # (Auto) 0.0x10^3/uL (0.0-0.7) Basophils # (Auto) 0.1x10^3/uL (0.0-0.2) Prothrombin Time 17.7SEC (11.7-14.0) Prothromb Time International Ratio 1.6 (0.8-1.1) Phosphorus Level 8.1mg/dL (2.6-4.7) Magnesium Level 2.3mg/dL (1.8-2.4) NP-Hvq-T-Type Natriuretic Peptide > 68749pk/mL (0-449) Test 08/06/16 19:56 08/07/16 07:13 08/07/16 07:29 Glucose (Fingerstick) 99mg/dL (70-99) 29mg/dL (70-99) 157mg/dL (70-99) Medications Current Medications Ondansetron HCl (Zofran) 4 mg PRN Q6HRS PRN IV NAUSEA/VOMITING Last administered on 08/05/16t 21:38; Start 4/9/17 at 20:00; Stop 08/06/16 at 14:57; Status DC Prochlorperazine Edisylate (Compazine) 10 mg PRN Q6HRS PRN IV NAUSEA/VOMITING ( 2ND CHOICE); Start 08/05/16 at 20:00 Prochlorperazine (Compazine) 25 mg PRN Q12HR PRN GA NAUSEA/VOMITING; Start 08/05 at 20:00 Al Hydroxide/Mg Hydroxide (Mylanta Plus Xs) 30 ml PRN Q3HRS PRN PO HEARTBURN / GAS; Start 08/05/16 at 20:00 Calcium Carbonate/ Glycine (Tums) 500 mg PRN Q3HRS PRN PO UPSET STOMACH; Start 08/05/16 at 20:00 Oxycodone HCl (Roxicodone) 5 mg PRN Q3HRS PRN PO BREAKTHROUGH PAIN; Start at 20:00 Acetaminophen (Tylenol) 650 mg PRN Q6HRS PRN PO MILD PAIN / TEMP; Start at 20:00 Docusate Sodium (Colace) 100 mg BID PO Last administered on 08/06/16 21:03; Start 08/05/16 at 21:00 Magnesium Hydroxide (Milk Of Magnesia) 2,400 mg PRN Q12HR PRN PO CONSTIPATION; Start 08/05/16 at 20:00 Lactulose 20 gm PRN Q12HR PRN PO CONSTIPATION; Start 08/05/16 at 20:00 Bisacodyl (Dulcolax Supp) 10 mg PRN DAILY PRN GA CONSTIPATION; Start 08/05/16 at 20:00 Heparin Sodium (Porcine) 5,000 unit Q8HRS SQ Last administered on 08/06/16 14: 45; Start 08/05/16 at 22:00; Stop 08/06/16 at 14:57; Status DC Albuterol/ Ipratropium 3 ml 3 ml RTQID NEB Last administered on 08/07/16 07:30 ; Start 08/05/16 at 20:00 Ceftriaxone Sodium 1 gm/ Sodium Chloride 50 ml @ 100 mls/hr Q24H IV Last administered on 08/06/16 20:04; Start 08/05/16 at 20:00 Azithromycin/ Sodium Chloride (Zithromax/Iv Sodium Chloride 0.9% 250ml) 250 ml @ 250 mls/hr Q24H IV Last administered on 08/06/16 21:01; Start 08/05/16 at 21 :00 Fentanyl Citrate (Fentanyl 2ml Vial) 25 mcg PRN Q2HR PRN IV PAIN; Start at 20:00 Allopurinol (Zyloprim) 100 mg DAILYWSUP PO ; Start 08/06/16 at 17:00 Aspirin (Ecotrin) 81 mg DAILY PO Last administered on 08/06/16 08:01; Start at 09:00 Cyclobenzaprine HCl (Flexeril) 10 mg TID PO Last administered on 08/06/16 21: 03; Start 08/05/16 at 21:00 Diltiazem HCl (Cardizem 24hr Cd) 180 mg DAILY PO Last administered on 08:01; Start 08/06/16 at 09:00 Vitamin B Complex/ Vitamin C (Bela-Roland) 1 tab DAILYBFRSUP PO ; Start 08/06/16 at 17:00 Furosemide (Lasix) 80 mg [id number] PO Last administered on 08/06/16 08:01; Start 08/06/16 at 09:00 Hydralazine HCl (Apresoline) 25 mg QTUTHSASU PO ; Start 08/07/16 at 16:00 Latanoprost (Xalatan) 1 drop HS OU Last administered on 08/06/16 21:03; Start 08/05/16 at 21:00 Sevelamer Carbonate (Renvela) 2.4 gm TID PO Last administered on 08/06/16 21: 03; Start 08/05/16 at 21:00 Sevelamer Carbonate (Renvela) 400 mg TID PO ; Start 08/05/16 at 21:00; Status UNV Carvedilol (Coreg) 12.5 mg DAILYWLUN PO ; Start 08/06/16 at 12:00 Vitamin D (Vitamin D3) 2,000 unit DAILY PO Last administered on 08/06/16 08:02 ; Start 08/06/16 at 09:00 Insulin Detemir (Levemir) 25 units QHS SQ Last administered on 08/06/16 21:06 ; Start 08/05/16 at 21:00 Benzonatate (Tessalon Perle) 100 mg [id number] PO Last administered on 08/06/16 21 :03; Start 08/05/16 at 21:00 Acetaminophen (Tylenol) 325 mg PRN Q6HRS PRN PO MILD PAIN / TEMP; Start at 09:00 Hydralazine HCl (Apresoline) 10 mg PRN Q4HRS PRN IVP ELEVATED BP, SEE COMMENTS ; Start 08/06/16 at 09:00 Ondansetron HCl (Zofran) 4 mg PRN Q8HRS PRN IV NAUSEA/VOMITING (1ST CHOICE); Start 08/06/16 at 09:00 Albuterol Sulfate (Ventolin Neb Soln) 2.5 mg PRN Q4HRS PRN NEB SHORTNESS OF BREATH; Start 08/06/16 at 09:00 Heparin Sodium (Porcine) 5,000 unit Q8HRS SQ Last administered on 08/07/16 05: 54; Start 08/06/16 at 14:00 Insulin Aspart (Novolog) 0-9 UNITS TIDWMEALS SQ Last administered on 08/06/16 12:40; Start 08/06/16 at 12:00 Dextrose (Dextrose 50%-Water Syringe) 12.5 gm PRN Q15MIN PRN IV SEE COMMENTS Last administered on 08/07/16 07:17; Start 08/06/16 at 10:45 Guaifenesin (Robitussin) 200 mg PRN Q4HRS PRN PO COUGH; Start 08/06/16 at 11:00 Darbepoetin Donte (Aranesp) 60 mcg WEEKLYHS SQ Last administered on 08/06/16 21 :03; Start 08/06/16 at 21:00 Pantoprazole Sodium (Protonix) 40 mg DAILYAC PO ; Start 08/07/16 at 07:30 Active Scripts Active Reported Ondansetron Odt (Ondansetron) 4 Mg Tab.rapdis 1 Tab PO PRN Q8HRS PRN Sodium Polystyrene Sulfonate 15 Gm/60 Ml Oral.susp 30 Gm PO WEEKLY Novolog (Insulin Aspart) 100 Unit/1 Ml Cartridge 0 SQ sliding scale: 140 - 180 = 1 unit 181 - 240 = 2 units 241 - 300 = 3 units 301 - 400 = 4 units 401 - 500 = 5 units Lantus (Insulin Glargine,Hum.rec.anlog) 100 Unit/1 Ml Vial 25 Unit SQ HS Renvela (Sevelamer Carbonate) 2.4 Gm Powd.pack 2.4 Gm PO TID take with 20 oz cranberry juice Nephro-Roland Tablet (Folic Acid/Vitamin B Comp W-C) 0.8 Mg Tablet 1 Tab PO DAILYBFRSUP Vitamin D (Cholecalciferol (Vitamin D3)) 2,000 Unit Capsule 1 Cap PO HS Latanoprost 2.5 Ml Drops 1 Drop OP HS Hydralazine Hcl 25 Mg Tablet 1 Tab PO QTUTHSASU Allopurinol 100 Mg Tablet 1 Tab PO DAILYWSUP Cyclobenzaprine Hcl 10 Mg Tablet 1 Tab PO TID Diltiazem 24HR Cd (Diltiazem Hcl) 180 Mg Cap.er.24h 1 Cap PO DAILY Lasix (Furosemide) 80 Mg Tablet 1 Tab PO BID Carvedilol 25 Mg Tablet 12.5 Tab PO DAILYWLUN Aspir-Low (Aspirin) 81 Mg Tablet. 1 Tab PO DAILY Vitals/I & O Vital Sign - Last 24 Hours 08/06/16 08/06/16 08/06/16 08/06/16 10:49 11:22 12:00 14:52 Temp 97.9 98.3 97.9 98.3 Pulse 104 104 97 Resp B/P 107/60 107/60 121/72 Pulse Ox 100 96 93 O2 Delivery Nasal Cannula Nasal Cannula Nasal Cannula O2 Flow Rate 2.0 3.0 2.0 08/06/16 08/06/16 08/06/16 08/06/16 16:15 19:30 20:00 20:02 Temp 97.6 97.6 Pulse 96 Resp 18 B/P 109/47 Pulse Ox 95 O2 Delivery Nasal Cannula Nasal Cannula Nasal Cannula O2 Flow Rate 3.0 2.0 2.0 3.0 08/06/16 08/07/16 08/07/16 08/07/16 22:41 03:27 07:00 07:30 Temp 97.8 98.2 98.4 97.8 98.2 98.4 Pulse 101 76 122 Resp 18 18 16 B/P 126/45 100/64 133/77 Pulse Ox 95 98 95 96 O2 Delivery Nasal Cannula Nasal Cannula Nasal Cannula Nasal Cannula O2 Flow Rate 3.0 3.0 2.0 3.0 Intake and Output 08/06/16 08/06/16 08/07/16 14:59 22:59 06:59 Intake Total 360 ml 400 ml Balance 360 ml 400 ml DIMAS LITTLEJOHN MD Aug 07, 2016 09:18
[2016-08-07] MEDS: SEVELAMER CARBONATE 2.4 GM PACKET. PO SCH ×2 (09:21→15:03)
[2016-08-07] MEDS: ASPIRIN ENTERIC COATED 81 MG TABLET.DR. PO SCH (09:21)
[2016-08-07] MEDS: CHOLECALCIFEROL (VITAMIN D3) 1,000 UNIT TABLET PO SCH (09:21)
[2016-08-07] MEDS: FUROSEMIDE 80 MG TABLET. PO SCH ×2 (09:22→15:03)
[2016-08-07] MEDS: DILTIAZEM HCL 180 MG CAP.ER.24H PO SCH (09:22)
[2016-08-07] MEDS: BENZONATATE 100 MG CAPSULE. PO SCH ×2 (09:22→15:03)
[2016-08-07] MEDS: DOCUSATE SODIUM 100 MG CAPSULE. PO SCH (09:23)
[2016-08-07] MEDS: CYCLOBENZAPRINE 10 MG TABLET. PO SCH ×2 (09:23→15:03)
[2016-08-07 09:37] LABS: CALCIUM 8.3 mg/dL (8.5-10.1); CREATININE 4.7 mg/dL (0.6-1.0); GFR 8.9; POTASSIUM 3.4 mmol/L (3.5-5.1)
[2016-08-07 09:42] LABS: BASO # 0.1 x10^3/uL (0.0-0.2); BASO % 0 % (0-3); EOS % 0 % (0-3); HEMATOCRIT 37.6 % (36.0-47.0); HEMOGLOBIN 12.2 g/dL (12.0-15.5); LYMPH # 0.8 x10^3/uL (1.0-4.8); LYMPH % 6 % (24-48); MEAN CORPUSCULAR HEMOGLOBIN 34 pg (25-35); MEAN CORPUSCULAR HGB CONC 32 g/dL (31-37); MEAN CORPUSCULAR VOLUME 105 fL (79-100); MONO % 8 % (0-9); NEUT % 85 % (31-73); PLATELET COUNT 76 x10^3/uL (140-400); RED BLOOD COUNT 3.57 x10^6/uL (3.50-5.40); RED CELL DISTRIBUTION WIDTH 15.7 % (11.5-14.5); WHITE BLOOD COUNT 13.2 x10^3/uL (4.0-11.0)
[2016-08-07] MEDS ORDERED: DOXYCYCLINE HYCLATE 100 MG TABLET PO SCH (10:00)
[2016-08-07 11:00] VITALS: BP 113/63
[2016-08-07] MEDS ORDERED: PREDNISONE 20 MG TABLET PO ONE (11:30)
[2016-08-07] MEDS ORDERED: DEXT15CA37 PO (11:34)
[2016-08-07] MEDS ORDERED: DOXY100T PO (11:35)
--- NOTE | 2016-08-07 11:36 | PDOC ---
Renal-Progress Notes Subjective Notes Notes NONE History of Present Illness Hx of present illness NO CHANGE Vitals Vitals Vital Signs Date Time Temp Pulse Resp B/P Pulse Ox O2 Delivery O2 Flow Rate FiO2 08/07/16 11:27 91 Room Air 08/07/16 09:22 91 116/59 08/07/16 07:30 3.0 08/07/16 07:00 98.4 16 98.4 Weight Weight [ ] I.O. Intake and Output Intake and Output 08/07/16 06:59 Intake Total 760 ml Balance 760 ml Intake Oral 760 ml # Bowel Movements 1 Labs Labs Laboratory Tests Test 08/06/16 12:45 08/06/16 16:15 08/06/16 17:34 08/06/16 19:56 Influenza Type A Antigen Negative (NEGATIVE) Influenza Type B Antigen Negative (NEGATIVE) White Blood Count 9.8x10^3/uL (4.0-11.0) Red Blood Count 2.93x10^6/uL (3.50-5.40) Hemoglobin 10.4g/dL (12.0-15.5) Hematocrit 31.5% (36.0-47.0) Mean Corpuscular Volume 108fL (79-100) Mean Corpuscular Hemoglobin 36pg (25-35) Mean Corpuscular Hemoglobin Concent 33g/dL (31-37) Red Cell Distribution Width 15.4% (11.5-14.5) Platelet Count 66x10^3/uL (140-400) Neutrophils (%) (Auto) 72% (31-73) Lymphocytes (%) (Auto) 20% (24-48) Monocytes (%) (Auto) 8% (0-9) Eosinophils (%) (Auto) 0% (0-3) Basophils (%) (Auto) 1% (0-3) Neutrophils # (Auto) 7.0x10^3uL (1.8-7.7) Lymphocytes # (Auto) 1.9x10^3/uL (1.0-4.8) Monocytes # (Auto) 0.7x10^3/uL (0.0-1.1) Eosinophils # (Auto) 0.0x10^3/uL (0.0-0.7) Basophils # (Auto) 0.1x10^3/uL (0.0-0.2) Prothrombin Time 17.7SEC (11.7-14.0) Prothromb Time International Ratio 1.6 (0.8-1.1) Phosphorus Level 8.1mg/dL (2.6-4.7) Magnesium Level 2.3mg/dL (1.8-2.4) YF-Fsd-L-Type Natriuretic Peptide > 08003gc/mL (0-449) Glucose (Fingerstick) 133mg/dL (70-99) 99mg/dL (70-99) Test 08/07/16 07:13 08/07/16 07:29 08/07/16 08:55 08/07/16 11:00 Glucose (Fingerstick) 29mg/dL (70-99) 157mg/dL (70-99) 153mg/dL (70-99) White Blood Count 13.2x10^3/uL (4.0-11.0) Red Blood Count 3.57x10^6/uL (3.50-5.40) Hemoglobin 12.2g/dL (12.0-15.5) Hematocrit 37.6% (36.0-47.0) Mean Corpuscular Volume 105fL (79-100) Mean Corpuscular Hemoglobin 34pg (25-35) Mean Corpuscular Hemoglobin Concent 32g/dL (31-37) Red Cell Distribution Width 15.7% (11.5-14.5) Platelet Count 76x10^3/uL (140-400) Neutrophils (%) (Auto) 85% (31-73) Lymphocytes (%) (Auto) 6% (24-48) Monocytes (%) (Auto) 8% (0-9) Eosinophils (%) (Auto) 0% (0-3) Basophils (%) (Auto) 0% (0-3) Neutrophils # (Auto) 11.2x10^3uL (1.8-7.7) Lymphocytes # (Auto) 0.8x10^3/uL (1.0-4.8) Monocytes # (Auto) 1.1x10^3/uL (0.0-1.1) Eosinophils # (Auto) 0.0x10^3/uL (0.0-0.7) Basophils # (Auto) 0.1x10^3/uL (0.0-0.2) Sodium Level 143mmol/L (136-145) Potassium Level 3.4mmol/L (3.5-5.1) Chloride Level 98mmol/L (98-107) Carbon Dioxide Level 33mmol/L (21-32) Anion Gap 12 (6-14) Blood Urea Nitrogen 42mg/dL (7-20) Creatinine 4.7mg/dL (0.6-1.0) Estimated GFR (Cockcroft-Gault) 8.9 Glucose Level 82mg/dL (70-99) Calcium Level 8.3mg/dL (8.5-10.1) Review of Systems Constitutional: yes: alert Eyes: Yes: no symptom reported Cardiovascular: Yes no symptom reported Gastrointestional: Yes: no symptom reported Musculoskeletal: Yes: no symptom reported Psychiatric/Neurological: Yes: no symptom reported Physical Exam General Appearance: no apparent distress Respiratory: decreased breath sounds Heart: S1S2 Abdomen: soft, bowel sounds present Neurology: alert Assessment Assessment IMP BRONCHITIS ANEMIA ESRD PLAN ANTIBIOTICS HD TOMORROW NANCY CALERO MD Aug 07, 2016 11:36
[2016-08-07] MEDS: CARVEDILOL 12.5 MG TABLET. PO SCH (12:38)
[2016-08-07 14:54] VITALS: BP 113/57
[2016-08-07] MEDS ORDERED: HYDRALAZINE 25 MG TABLET PO SCH (16:00)
[2016-08-08] MEDS ORDERED: PREDNISONE 10 MG TABLET PO ONE (09:00)
== END 2016-08-07 15:45 | disposition home or self-care (01) | DRG 202 ==
LOC: 5 SOUTH 18:40
PROVIDERS: ADMIT Internal Medicine; ATTEND Internal Medicine
PROC: 5A1D00Z (ICD-10-PCS; principal; 2016-08-06)
DX: J20.8 Acute bronchitis due to other specified organisms (principal); N18.6 End stage renal disease; I13.2 Hypertensive heart and chronic kidney disease with heart failure and with stage 5 chronic kidney disease, or end stage renal disease; J98.11 Atelectasis; E11.22 Type 2 diabetes mellitus with diabetic chronic kidney disease; E11.65 Type 2 diabetes mellitus with hyperglycemia; D64.9 Anemia, unspecified; I25.10 Atherosclerotic heart disease of native coronary artery without angina pectoris; Z95.1 Presence of aortocoronary bypass graft; Z87.440 Personal history of urinary (tract) infections; Z99.2 Dependence on renal dialysis; Z82.49 Family history of ischemic heart disease and other diseases of the circulatory system
CPT/HCPCS: 36415; 71010; 80048; 82947; 83735; 83880; 84100; 85027; 85610; 87804; 94640; 94760; J0456; J0696; J0881; J1815; J2405; J7042; J7050; J7512; J7620; 97530; J7030

== ENCOUNTER 2016-08-12 17:35 | Inpatient (IN) | payer OTHER ==
[~2016-08-12] VITALS: Ht 162.6 cm; Wt 87.7 kg
[~2016-08-12 17:35] MED LIST changes: +DEXT15CA37 PO; +DOXY100T PO; +ONDA4TAB12 PO; +SODI15OR PO
[2016-08-12] MEDS ORDERED: IPRATRPIUM/ALBUTEROL 0.5/2.5MG 3 ML NEBU. NEB ONE (18:15)
--- NOTE | 2016-08-12 18:19 | PHYS DOC ---
Past Medical History Past Medical History: CHF, Diabetes-Type I, High Cholesterol, Renal Failure Past Surgical History: Coronary Bypass Surgery Additional Past Surgical Histo: CABG X5 2004, AV FISTULA RT ARM Alcohol Use: None Drug Use: None Adult General Chief Complaint Chief Complaint: MULTIPLE COMPLAINTS HPI HPI Patient is a 85 year old female who presents with complaint of shortness of breath. Patient states that she is has been having worsening symptoms over the past 2-3 days. Patient was recently admitted to the hospital on August 05, 2016 and treated for respiratory failure and renal failure. Patient was discharged on August 07, 2016. The patient has history of end-stage renal disease and last had dialysis on Saturday. Patient states over the weekend she has had worsening shortness of breath while at rest. The patient also notes that she has had worsening swelling to her legs and has had weeping edema from both feet. Patient has history congestive heart failure and has been on Lasix therapy the patient states that at this time she makes very little urine. Patient denies any chest pain or abdominal pain. Patient is wheelchair-bound and states that even at rest she is feeling very short of breath. Patient denies any fevers. Patient was discharged with doxycycline after being treated for pneumonia at her previous visit. Review of Systems Review of Systems Constitutional: Denies fever or chills [] Eyes: Denies change in visual acuity, redness, or eye pain [] HENT: Denies nasal congestion or sore throat [] Respiratory: Cough, shortness of breath [] Cardiovascular: Lower extremity edema, denies chest pain [] GI: Denies abdominal pain, nausea, vomiting, bloody stools or diarrhea [] : Denies dysuria or hematuria [] Musculoskeletal: Bilateral leg pain, Denies back pain or joint pain [] Integument: Denies rash or skin lesions [] Neurologic: Denies headache, focal weakness or sensory changes [] Current Medications Current Medications Current Medications Medications (Trade) Dose Ordered Sig/Homa Start Time Stop Time Status Last Admin Dose Admin Albuterol/ Ipratropium (Duoneb) 3 ml 1X ONCE 08/12/16 18:15 08/12/16 18:24 DC 08/12/16 18:29 3 ML Allergies Allergies Allergies Coded Allergies Type Severity Reaction Last Updated Verified morphine Allergy Intermediate 10/25/14 Yes Physical Exam Physical Exam Constitutional: Alert, afebrile, appears in moderate respiratory distress [] HENT: Normocephalic, atraumatic, bilateral external ears normal, oropharynx moist, no oral exudates, nose normal. [] Eyes: PERRLA, EOMI, conjunctiva normal, no discharge. [] Neck: Normal range of motion, no tenderness, supple, no stridor. [] Cardiovascular:Heart rate regular rhythm, no murmur [] Lungs & Thorax: Moderate to severe restriction of air movement bilaterally, expiratory wheezes bilaterally, rales bilaterally [] Abdomen: Bowel sounds normal, soft, no tenderness, no masses, no pulsatile masses. [] Skin: Warm, dry, no erythema, no rash. [] Back: No tenderness, no CVA tenderness. [] Extremities: Bilateral lower leg tenderness to palpation, no cyanosis, no clubbing, ROM intact, 3+ pitting edema with weeping present through bilateral feet. [] Neurologic: Alert and oriented X 3, normal motor function, normal sensory function, no focal deficits noted. [] Current Patient Data Vital Signs Vital Signs Date Time Temp Pulse Resp B/P Pulse Ox O2 Delivery O2 Flow Rate FiO2 08/12/16 18:31 92 Room Air 08/12/16 17:56 98.0 83 28 131/58 98.0 Lab Values Laboratory Tests Test 08/12/16 18:13 08/12/16 18:30 White Blood Count 12.1x10^3/uL (4.0-11.0) H Red Blood Count 3.56x10^6/uL (3.50-5.40) Hemoglobin 12.4g/dL (12.0-15.5) Hematocrit 38.2% (36.0-47.0) Mean Corpuscular Volume 107fL (79-100) H Mean Corpuscular Hemoglobin 35pg (25-35) Mean Corpuscular Hemoglobin Concent 32g/dL (31-37) Red Cell Distribution Width 16.0% (11.5-14.5) H Platelet Count 111x10^3/uL (140-400) L Neutrophils (%) (Auto) 74% (31-73) H Lymphocytes (%) (Auto) 14% (24-48) L Monocytes (%) (Auto) 8% (0-9) Eosinophils (%) (Auto) 4% (0-3) H Basophils (%) (Auto) 1% (0-3) Neutrophils # (Auto) 9.0x10^3uL (1.8-7.7) H Lymphocytes # (Auto) 1.6x10^3/uL (1.0-4.8) Monocytes # (Auto) 0.9x10^3/uL (0.0-1.1) Eosinophils # (Auto) 0.4x10^3/uL (0.0-0.7) Basophils # (Auto) 0.1x10^3/uL (0.0-0.2) Sodium Level 143mmol/L (136-145) Potassium Level 4.2mmol/L (3.5-5.1) Chloride Level 101mmol/L (98-107) Carbon Dioxide Level 25mmol/L (21-32) Anion Gap 17 (6-14) H Blood Urea Nitrogen 61mg/dL (7-20) H Creatinine 6.1mg/dL (0.6-1.0) H Estimated GFR (Cockcroft-Gault) 6.6 BUN/Creatinine Ratio 10 (6-20) Glucose Level 294mg/dL (70-99) H Calcium Level 8.4mg/dL (8.5-10.1) L Magnesium Level 1.9mg/dL (1.8-2.4) Total Bilirubin 0.8mg/dL (0.2-1.0) Aspartate Amino Transferase (AST) 44U/L (15-37) H Alanine Aminotransferase (ALT) 79U/L (14-59) H Alkaline Phosphatase 231U/L (46-116) H Creatine Kinase 76U/L (26-192) Creatine Kinase MB (Mass) 2.0ng/mL (0.0-3.6) Creatine Kinase MB Relative Index 2.6% (0-4) Troponin I Quantitative < 0.017ng/mL (0.000-0.055) UL-Pwh-J-Type Natriuretic Peptide > 17078ex/mL (0-449) H Total Protein 6.7g/dL (6.4-8.2) Albumin 3.4g/dL (3.4-5.0) Albumin/Globulin Ratio 1.0 (1.0-1.7) Laboratory Tests 08/12/16 18:13 Laboratory Tests 08/12/16 18:30 EKG EKG Interpreted by me: Heart rate 81, left bundle branch block, occasional PVCs, right axis deviation, no acute ST elevations or depression [] Radiology/Procedures Radiology/Procedures One view AP chest x-ray interpreted by me: Left lower lobe infiltrate versus atelectasis, cardiomegaly him no effusions [] Course & Med Decision Making Course & Med Decision Making Pertinent Labs and Imaging studies reviewed. (See chart for details) Patient given DuoNeb treatment in the emergency department with improvement in wheezing. Patient has clinical signs of fluid overload and due to worsening dyspnea at rest, the patient will need to be admitted to the hospital for further treatment. I spoke with Dr. Lutz who accepted care patient in hospital. Consults were placed to Dr. Giraldo of nephrology, Dr. Barbosa of cardiology, and Dr. Alonso of pulmonology to follow patient in hospital. Dragon Disclaimer Dragon Disclaimer This electronic medical record was generated, in whole or in part, using a voice recognition dictation system. Departure Departure Impression: Primary Impression: Fluid overload Additional Impressions: Congestive heart failure End stage renal disease Reactive airway disease Uncontrolled diabetes mellitus Disposition: ADMITTED INPATIENT Admitting Physician: Other Condition: GUARDED Referrals: UNKNOWN PCP NAME (PCP) Problem Qualifiers Primary Impression: Fluid overload Hypervolemia type: unspecified Qualified Code: E87.70 - Fluid overload, unspecified Additional Impressions: Congestive heart failure Congestive heart failure type: unspecified congestive heart failure type Congestive heart failure chronicity: unspecified congestive heart failure chronicity Qualified Code: I50.9 - Heart failure, unspecified Reactive airway disease Asthma severity: moderate persistent Asthma complication type: uncomplicated Qualified Code: J45.40 - Moderate persistent asthma, uncomplicated Uncontrolled diabetes mellitus Diabetes mellitus type: type 2 Diabetes mellitus complication status: with hyperglycemia Diabetes mellitus longterm insulin use: unspecified longterm insulin use status Qualified Code: E11.65 - Type 2 diabetes mellitus with hyperglycemia SARAH BOWLING MD Aug 12, 2016 18:19
[2016-08-12 18:40] LABS: BASO # 0.1 x10^3/uL (0.0-0.2); BASO % 1 % (0-3); EOS % 4 % (0-3); HEMATOCRIT 38.2 % (36.0-47.0); HEMOGLOBIN 12.4 g/dL (12.0-15.5); LYMPH # 1.6 x10^3/uL (1.0-4.8); LYMPH % 14 % (24-48); MEAN CORPUSCULAR HEMOGLOBIN 35 pg (25-35); MEAN CORPUSCULAR HGB CONC 32 g/dL (31-37); MEAN CORPUSCULAR VOLUME 107 fL (79-100); MONO % 8 % (0-9); NEUT % 74 % (31-73); PLATELET COUNT 111 x10^3/uL (140-400); RED BLOOD COUNT 3.56 x10^6/uL (3.50-5.40); WHITE BLOOD COUNT 12.1 x10^3/uL (4.0-11.0)
[2016-08-12 18:47] LABS: CALCIUM 8.4 mg/dL (8.5-10.1); CREATININE 6.1 mg/dL (0.6-1.0); GFR 6.6; POTASSIUM 4.2 mmol/L (3.5-5.1)
[2016-08-12 18:53] LABS: ALBUMIN 3.4 g/dL (3.4-5.0); MAGNESIUM 1.9 mg/dL (1.8-2.4); TOTAL BILIRUBIN 0.8 mg/dL (0.2-1.0); TOTAL PROTEIN 6.7 g/dL (6.4-8.2)
[2016-08-12 19:00] LABS: CKMB INDEX 2.6 % (0-4); CREATINE KINASE 76 U/L (26-192)
[2016-08-12] MEDS ORDERED: FENTANYL PF 100 MCG/2 ML VIAL. IV PRN (19:45)
[2016-08-12] MEDS ORDERED: ONDANSETRON PF 4 MG/2 ML VIAL. IV PRN (19:45)
[2016-08-12 20:05] VITALS: BP 119/67
[2016-08-12] MEDS: IPRATRPIUM/ALBUTEROL 0.5/2.5MG 3 ML NEBU. NEB SCH (20:25)
--- NOTE | 2016-08-12 20:42 | ACF ---
Admission Forms Criteria HEART FAILURE: COMMON COMPLICATIONS Clinical Indications for Inpatient Care (Place 'X' for any and all applicable criteria): Ongoing inpatient care may be indicated for heart failure with ANY ONE of the following (1)(2)(3)(4)(5): [ ]I. Ongoing need for care for primary condition requiring frequent therapy adjustments because of changes in cardiac function (eg, drug dosage changes for drugs that are renally metabolized) [ ]II. New-onset heart failure [ ]III. Heart failure with decreased urine output not responsive to attempts to optimize volume status [ ]IV. Acute cardiac ischemia causing or associated with failure [X]V. Complications of heart failure, including ANY ONE of the following: [ ]a) Pericardial effusion [ ]b) Symptomatic pleural effusion [ ]c) O2 saturation <90% or PO2 < 60 mm Hg (8.0 kPa) on room air or require baseline supplemental O2 [ ]d) Tachypnea [X]e) Dyspnea [ ]f) Syncope [ ]g) Change in mental status [ ]h) Acute renal insufficiency that is severe (reduction of more than 50% in estimated glomerular filtration rate from baseline) or progressive reduction of more than 25% in estimated glomerular filtration rate from baseline, with creatinine continuing to rise) [ ]i) Hemodynamic instability [ ]j) Anasarca [ ]k) Clinically significant metabolic abnormalities due to heart failure (eg, new-onset metabolic acidosis) Extended stay beyond goal length of stay for primary condition may be needed until ALL of the following are present(1)(3): [ ]a) Stable and effective diuretic regimen established (or patient on stable dialysis regimen if in chronic renal failure) [ ]b) Breathing comfortably at rest [ ]c) Saturation of arterial oxygen greater than 90% or at acceptable baseline [ ]d) Pulmonary edema absent or improved [ ]e) Hemodynamic stability [ ]f) Volume status acceptable on oral medication [ ]g) Peripheral or sacral edema absent or improved [ ]h) Renal function stable and manageable at a lower level of care [ ]i) Complications (eg, pleural effusion) resolved or manageable at a lower level of care [ ]j) Patient or caregiver has received written discharge instructions or educational material addressing activity level, diet, discharge medications, follow-up appointment, weight monitoring, and what to do if symptoms worsen The original [facility] content created by [employer] has been revised. The portions of the content which have been revised are identified through the use of italic text or in bold, and [facility] has neither reviewed nor approved the modified material.All other unmodified content is copyright [facility]. Please see references footnoted in the original [facility] edition 2016 Admission Criteria Met?: Yes JORGE MENA Aug 12, 2016 20:42
[2016-08-12 22:50] VITALS: BP 125/59
[2016-08-13 03:15] VITALS: BP 115/94
--- NOTE | 2016-08-13 06:17 | EKG ---
[facility] [address] [place] [address] Test Date: 2016-08-12 Test Time: 17:58:19 Pat Name: JOHNNY RENEE Department: Room: 201 1 Gender: F [employer]: : [id number] Requested By: SARAH BOWLING Order Number: [id number] Reading MD: Nila Rich Measurements Intervals [place] Rate: 81 P: MO: QRS: -101 QRSD: 128 T: 129 QT: 422 QTc: 496 Interpretive Statements ATRIAL FIBRILLATION PREMATURE VENTRICULAR CONTRACTION LOW LIMB LEAD VOLTAGE NON SPECIFIC INTRAVENTRICULAR BLOCK QRS(T) CONTOUR ABNORMALITY CONSISTENT WITH ANTERIOR INFARCT PROBABLY OLD Electronically Signed On 08-15-2016 10:16:51 CDT by Nila Rich
[2016-08-13 07:00] VITALS: BP 110/55
[2016-08-13] MEDS: IPRATRPIUM/ALBUTEROL 0.5/2.5MG 3 ML NEBU. NEB SCH ×4 (08:08→19:34)
--- NOTE | 2016-08-13 08:37 | RAD ---
Portable chest, 08/12/2016: History: Shortness of breath Comparison is made to a study from 08/06/2016. There has been a previous median sternotomy. The heart is enlarged. There is calcific plaquing of the aorta. The pulmonary vascularity is within normal limits. There is basilar linear scarring. There is mild discoid atelectasis in the right base. No pleural fluid is seen. IMPRESSION: 1. Cardiomegaly and aortic atherosclerosis. 2. Mild right basilar discoid atelectasis.
[2016-08-13] MEDS ORDERED: DEXTROMETHORPHAN HBR 15 MG PO PRN (09:45)
[2016-08-13] MEDS ORDERED: DEXTROSE 50% 25 GM / 50ML DISP.SYRIN. IV PRN (09:45)
[2016-08-13] MEDS ORDERED: ACETAMINOPHEN 325 MG TABLET. PO PRN (09:45)
[2016-08-13] MEDS ORDERED: TRAMADOL 50 MG TABLET. PO PRN (09:45)
[2016-08-13] MEDS ORDERED: ONDANSETRON PF 4 MG/2 ML VIAL. IV PRN (09:45)
[2016-08-13] MEDS: SEVELAMER CARBONATE 2.4 GM PACKET. PO SCH ×3 (10:00→18:18)
[2016-08-13] MEDS: CYCLOBENZAPRINE 10 MG TABLET. PO SCH ×3 (10:00→20:52)
[2016-08-13 10:58] VITALS: BP 136/67
[2016-08-13] MEDS ORDERED: INSULIN ASPART 300 UNITS/3 ML INSULN.PEN SQ SCH (12:00)
--- NOTE | 2016-08-13 12:41 | PDOC1 ---
History and Physical Date of Admission Date of Admission 08/13/16 Identification/Chief Complaint Chief Complaint bl feet edema Problems: Source Source: Chart review, Patient History of Present Illness History of Present Illness HPI HPI Patient is a 85 year old female with EF 20% last year, comes for bl feet edema. She was here 1 week ago for bronchitis, still dry cough, not getting worse. denies worsening sob. She feels bl feet getting more swelling with some wheeping since Sat and decided to come on Saturday. no fever, chills. Patient is wheelchair-bound and states that even at rest she is feeling very short of breath. Patient was discharged with doxycycline on 08/07. pt is on lasix bid, but produced urine output only 1-200 cc daily. oN HD MWF, not missing HD. Past Medical History Cardiovascular: CAD, HTN Pulmonary: Bronchitis GI: No pertinent hx Renal/: Chronic renal insuff, Chronic renal failure, UTI Endocrine: Diabetes, Hyperparathyroidism Past Surgical History Past Surgical History: CABG Family History Family History: Heart Disease, High Cholestrol, Hypertension Social History Smoke: No ALCOHOL: none Drugs: None Current Problem List Problem List Problems Medical Problems: (1) Congestive heart failure Status: Acute (2) End stage renal disease Status: Acute (3) Fluid overload Status: Acute (4) Reactive airway disease Status: Acute (5) Uncontrolled diabetes mellitus Status: Acute Current Medications Current Medications Current Medications Medications (Trade) Dose Ordered Sig/Homa Start Time Stop Time Status Last Admin Dose Admin Acetaminophen (Tylenol) 650 mg PRN Q6HRS PRN 08/13/16 09:45 Albuterol/ Ipratropium (Duoneb) 3 ml RTQID 08/12/16 20:00 08/13/16 19:59 08/13/16 11:55 3 ML Allopurinol (Zyloprim) 100 mg DAILYWSUP 08/13/16 17:00 Aspirin (Ecotrin) 81 mg DAILY 08/14/16 09:00 Carvedilol (Coreg) 12.5 mg DAILYWLUN 08/13/16 12:00 Cyclobenzaprine HCl (Flexeril) 10 mg TID 08/13/16 10:00 Dextrose (Dextrose 50%-Water Syringe) 12.5 gm PRN Q15MIN PRN 08/13/16 09:45 Diltiazem HCl (Cardizem 24hr Cd) 180 mg DAILY 08/13/16 10:00 Fentanyl Citrate (Fentanyl 2ml Vial) 50 mcg PRN Q2HR PRN 08/12/16 19:45 08/13/16 19:44 Furosemide (Lasix) 80 mg BID92 08/13/16 14:00 08/13/16 14:00 DC Guaifenesin/ Codeine Phosphate (Robitussin Ac) 5 ml PRN Q6HRS PRN 08/13/16 09:45 UNV Hydralazine HCl (Apresoline) 25 mg QTUTHSASU 08/14/16 16:00 Insulin Aspart (Novolog) 0-9 UNITS TIDWMEALS 08/13/16 12:00 Insulin Detemir (Levemir) 20 units QHS 08/13/16 21:00 Latanoprost (Xalatan) 1 drop HS 08/13/16 21:00 Non-Formulary Medication 30 gm WEEKLY 08/20/16 09:00 UNV Ondansetron HCl (Zofran) 4 mg PRN Q6HRS PRN 08/13/16 09:45 Sevelamer Carbonate (Renvela) 2.4 gm TID 08/13/16 10:00 Tramadol HCl (Ultram) 50 mg PRN Q6HRS PRN 08/13/16 09:45 UNV Vitamin B Complex/ Vitamin C (Bela-Roland) 1 tab DAILYBFRSUP 08/13/16 17:00 Vitamin D (Vitamin D3) 2,000 unit HS 08/13/16 21:00 Allergies Allergies Allergies Coded Allergies Type Severity Reaction Last Updated Verified morphine Allergy Intermediate 10/25/14 Yes ROS Review of System CONSTITUTIONAL: No fever or chills EYES: No recent changes SKIN: No rash or itching CARDIOVASCULAR: No chest pain, syncope, palpitations, or edema RESPIRATORY: No SOB or cough GASTROINTESTINAL: No nausea, vomiting or abdominal pain NEUROLOGICAL: No headaches or weakness ENDOCRINE: No cold or heat intolerance GENITOURINARY: No urgency or frequency of urination MUSCULOSKELETAL: No back pain or joint pain LYMPHATICS: No enlarged lymph nodes PSYCHIATRIC: No anxiety or depression Physical Exam Physical Exam GEN.: No apparent distress. Alert and oriented. HEENT: Head is normocephalic, atraumatic NECK: Supple. LUNGS: bl decreased bs, mild crackles HEART: RRR, S1, S2 present. Peripheral pulses intact ABDOMEN: Soft, nontender. Positive bowel sounds. EXTREMITIES: Without any cyanosis. bl leg , feet 3+ edema NEUROLOGIC: Normal speech, normal tone PSYCHIATRIC: Normal affect, normal mood. SKIN: No ulcerations Vitals Vitals Vital Signs Date Time Temp Pulse Resp B/P Pulse Ox O2 Delivery O2 Flow Rate FiO2 08/13/16 11:55 96 Nasal Cannula 2.0 08/13/16 10:58 97.7 84 16 136/67 97.7 Labs Labs Laboratory Tests Test 08/12/16 18:13 08/12/16 18:30 08/12/16 21:09 White Blood Count 12.1x10^3/uL (4.0-11.0) Red Blood Count 3.56x10^6/uL (3.50-5.40) Hemoglobin 12.4g/dL (12.0-15.5) Hematocrit 38.2% (36.0-47.0) Mean Corpuscular Volume 107fL (79-100) Mean Corpuscular Hemoglobin 35pg (25-35) Mean Corpuscular Hemoglobin Concent 32g/dL (31-37) Red Cell Distribution Width 16.0% (11.5-14.5) Platelet Count 111x10^3/uL (140-400) Neutrophils (%) (Auto) 74% (31-73) Lymphocytes (%) (Auto) 14% (24-48) Monocytes (%) (Auto) 8% (0-9) Eosinophils (%) (Auto) 4% (0-3) Basophils (%) (Auto) 1% (0-3) Neutrophils # (Auto) 9.0x10^3uL (1.8-7.7) Lymphocytes # (Auto) 1.6x10^3/uL (1.0-4.8) Monocytes # (Auto) 0.9x10^3/uL (0.0-1.1) Eosinophils # (Auto) 0.4x10^3/uL (0.0-0.7) Basophils # (Auto) 0.1x10^3/uL (0.0-0.2) Sodium Level 143mmol/L (136-145) Potassium Level 4.2mmol/L (3.5-5.1) Chloride Level 101mmol/L (98-107) Carbon Dioxide Level 25mmol/L (21-32) Anion Gap 17 (6-14) Blood Urea Nitrogen 61mg/dL (7-20) Creatinine 6.1mg/dL (0.6-1.0) Estimated GFR (Cockcroft-Gault) 6.6 BUN/Creatinine Ratio 10 (6-20) Glucose Level 294mg/dL (70-99) Calcium Level 8.4mg/dL (8.5-10.1) Magnesium Level 1.9mg/dL (1.8-2.4) Total Bilirubin 0.8mg/dL (0.2-1.0) Aspartate Amino Transf (AST/SGOT) 44U/L (15-37) Alanine Aminotransferase (ALT/SGPT) 79U/L (14-59) Alkaline Phosphatase 231U/L (46-116) Creatine Kinase 76U/L (26-192) Creatine Kinase MB (Mass) 2.0ng/mL (0.0-3.6) Creatine Kinase MB Relative Index 2.6% (0-4) Troponin I Quantitative < 0.017ng/mL (0.000-0.055) GP-Agm-O-Type Natriuretic Peptide > 20839fi/mL (0-449) Total Protein 6.7g/dL (6.4-8.2) Albumin 3.4g/dL (3.4-5.0) Albumin/Globulin Ratio 1.0 (1.0-1.7) Glucose (Fingerstick) 247mg/dL (70-99) Laboratory Tests Test 08/12/16 18:13 08/12/16 18:30 08/12/16 21:09 White Blood Count 12.1x10^3/uL (4.0-11.0) Red Blood Count 3.56x10^6/uL (3.50-5.40) Hemoglobin 12.4g/dL (12.0-15.5) Hematocrit 38.2% (36.0-47.0) Mean Corpuscular Volume 107fL (79-100) Mean Corpuscular Hemoglobin 35pg (25-35) Mean Corpuscular Hemoglobin Concent 32g/dL (31-37) Red Cell Distribution Width 16.0% (11.5-14.5) Platelet Count 111x10^3/uL (140-400) Neutrophils (%) (Auto) 74% (31-73) Lymphocytes (%) (Auto) 14% (24-48) Monocytes (%) (Auto) 8% (0-9) Eosinophils (%) (Auto) 4% (0-3) Basophils (%) (Auto) 1% (0-3) Neutrophils # (Auto) 9.0x10^3uL (1.8-7.7) Lymphocytes # (Auto) 1.6x10^3/uL (1.0-4.8) Monocytes # (Auto) 0.9x10^3/uL (0.0-1.1) Eosinophils # (Auto) 0.4x10^3/uL (0.0-0.7) Basophils # (Auto) 0.1x10^3/uL (0.0-0.2) Sodium Level 143mmol/L (136-145) Potassium Level 4.2mmol/L (3.5-5.1) Chloride Level 101mmol/L (98-107) Carbon Dioxide Level 25mmol/L (21-32) Anion Gap 17 (6-14) Blood Urea Nitrogen 61mg/dL (7-20) Creatinine 6.1mg/dL (0.6-1.0) Estimated GFR (Cockcroft-Gault) 6.6 BUN/Creatinine Ratio 10 (6-20) Glucose Level 294mg/dL (70-99) Calcium Level 8.4mg/dL (8.5-10.1) Magnesium Level 1.9mg/dL (1.8-2.4) Total Bilirubin 0.8mg/dL (0.2-1.0) Aspartate Amino Transf (AST/SGOT) 44U/L (15-37) Alanine Aminotransferase (ALT/SGPT) 79U/L (14-59) Alkaline Phosphatase 231U/L (46-116) Creatine Kinase 76U/L (26-192) Creatine Kinase MB (Mass) 2.0ng/mL (0.0-3.6) Creatine Kinase MB Relative Index 2.6% (0-4) Troponin I Quantitative < 0.017ng/mL (0.000-0.055) UA-Lsk-D-Type Natriuretic Peptide > 32542tm/mL (0-449) Total Protein 6.7g/dL (6.4-8.2) Albumin 3.4g/dL (3.4-5.0) Albumin/Globulin Ratio 1.0 (1.0-1.7) Glucose (Fingerstick) 247mg/dL (70-99) VTE Prophylaxis Ordered VTE Prophylaxis Devices: No VTE Pharmacological Prophylaxi: Yes Assessment/Plan Assessment/Plan 1. bl feet edema 2/2 fluid overloaded 2. chronic severe systolic/diastolic CHF 3. ESRDon HD mwf 4. DM1 5. htn 6. hld 7. h/o CAD post CABG 2003 8. Obesity 9. moderate MR, TR. PLAN: fu with annalise pulpaige, renal cont HD elevated bl feet cont home meds dvt ppx ptot KIM LAZAR MD Aug 13, 2016 12:41
--- NOTE | 2016-08-13 12:43 | PDOC2 ---
CONSULT Date of Consult Date of Consult DATE: 08/13/16 TIME: 12:34 Reason for Consult Reason for Consult: ESRD Referring Physician Referring Physician: DR. MASON Identification/Chief Complaint Chief Complaint SOB Problems: Source Source: Chart review, Patient History of Present Illness Reason for Visit: as dictated Past Medical History Cardiovascular: CAD, CHF (EF 20 % on most recent ECHO in our system), HTN, Valve insufficiency Pulmonary: Bronchitis GI: No pertinent hx Heme/Onc: Anemia NOS Renal/: Chronic renal insuff, Chronic renal failure, UTI Endocrine: Diabetes, Hyperparathyroidism Past Surgical History Past Surgical History: CABG Family History Family History: Heart Disease, High Cholestrol, Hypertension Social History ALCOHOL: none Drugs: None Current Problem List Problem List Problems Medical Problems: (1) Congestive heart failure Status: Acute (2) End stage renal disease Status: Acute (3) Fluid overload Status: Acute (4) Reactive airway disease Status: Acute (5) Uncontrolled diabetes mellitus Status: Acute Current Medications Current Medications Current Medications Albuterol/ Ipratropium (Duoneb) 3 ml 1X ONCE NEB Last administered on t 18:29; Start 08/12/16 at 18:15; Stop 08/12/16 at 18:24; Status DC Ondansetron HCl (Zofran) 4 mg PRN Q8HRS PRN IV NAUSEA/VOMITING; Start 08/12/16 at 19:45; Stop 08/13/16 at 19:44 Fentanyl Citrate (Fentanyl 2ml Vial) 50 mcg PRN Q2HR PRN IV PAIN; Start at 19:45; Stop 08/13/16 at 19:44 Albuterol/ Ipratropium (Duoneb) 3 ml RTQID NEB Last administered on 08/13/16t 11:55; Start 08/12/16 at 20:00; Stop 08/13/16 at 19:59 Allopurinol (Zyloprim) 100 mg DAILYWSUP PO ; Start 08/13/16 at 17:00 Aspirin (Ecotrin) 81 mg DAILY PO ; Start 08/14/16 at 09:00 Cyclobenzaprine HCl (Flexeril) 10 mg TID PO ; Start 08/13/16 at 10:00 Diltiazem HCl (Cardizem 24hr Cd) 180 mg DAILY PO ; Start 08/13/16 at 10:00 Vitamin B Complex/ Vitamin C (Bela-Roland) 1 tab DAILYBFRSUP PO ; Start 08/13/16 at 17:00 Furosemide (Lasix) 80 mg BID92 PO ; Start 08/13/16 at 14:00 Hydralazine HCl (Apresoline) 25 mg QTUTHSASU PO ; Start 08/14/16 at 16:00 Latanoprost (Xalatan) 1 drop HS OU ; Start 08/13/16 at 21:00 Sevelamer Carbonate (Renvela) 2.4 gm TID PO ; Start 08/13/16 at 10:00 Carvedilol (Coreg) 12.5 mg DAILYWLUN PO ; Start 08/13/16 at 12:00 Vitamin D (Vitamin D3) 2,000 unit HS PO ; Start 08/13/16 at 21:00 Non-Formulary Medication 15 mg TID PRN PRN PO COUGH; Start 08/13/16 at 09:45; Status UNV Non-Formulary Medication 25 unit HS SQ ; Start 08/13/16 at 21:00; Stop 08/13/16 at 21:00; Status DC Non-Formulary Medication 30 gm WEEKLY PO ; Start 08/20/16 at 09:00; Status UNV Insulin Detemir (Levemir) 20 units QHS SQ ; Start 08/13/16 at 21:00 Insulin Aspart (Novolog) 0-9 UNITS TIDWMEALS SQ ; Start 08/13/16 at 12:00 Dextrose (Dextrose 50%-Water Syringe) 12.5 gm PRN Q15MIN PRN IV SEE COMMENTS; Start 08/13/16 at 09:45 Acetaminophen (Tylenol) 650 mg PRN Q6HRS PRN PO FEVER; Start 08/13/16 at 09:45 Ondansetron HCl (Zofran) 4 mg PRN Q6HRS PRN IV NAUSEA/VOMITING; Start 08/13/16 at 09:45 Tramadol HCl (Ultram) 50 mg PRN Q6HRS PRN PO PAIN; Start 08/13/16 at 09:45; Status UNV Guaifenesin/ Codeine Phosphate (Robitussin Ac) 5 ml PRN Q6HRS PRN PO COUGH; Start 08/13/16 at 09:45; Status UNV Active Scripts Active Doxycycline Hyclate 100 Mg Tablet 100 Mg PO BID Robitussin (Dextromethorphan HBr) 15 Mg Capsule 15 Mg PO TID PRN PRN Reported Ondansetron Odt (Ondansetron) 4 Mg Tab.rapdis 1 Tab PO PRN Q8HRS PRN Sodium Polystyrene Sulfonate 15 Gm/60 Ml Oral.susp 30 Gm PO WEEKLY Novolog (Insulin Aspart) 100 Unit/1 Ml Cartridge 0 SQ sliding scale: 140 - 180 = 1 unit 181 - 240 = 2 units 241 - 300 = 3 units 301 - 400 = 4 units 401 - 500 = 5 units Lantus (Insulin Glargine,Hum.rec.anlog) 100 Unit/1 Ml Vial 25 Unit SQ HS Renvela (Sevelamer Carbonate) 2.4 Gm Powd.pack 2.4 Gm PO TID take with 20 oz cranberry juice Nephro-Roland Tablet (Folic Acid/Vitamin B Comp W-C) 0.8 Mg Tablet 1 Tab PO DAILYBFRSUP Vitamin D (Cholecalciferol (Vitamin D3)) 2,000 Unit Capsule 1 Cap PO HS Latanoprost 2.5 Ml Drops 1 Drop OP HS Hydralazine Hcl 25 Mg Tablet 1 Tab PO QTUTHSASU Allopurinol 100 Mg Tablet 1 Tab PO DAILYWSUP Cyclobenzaprine Hcl 10 Mg Tablet 1 Tab PO TID Diltiazem 24HR Cd (Diltiazem Hcl) 180 Mg Cap.er.24h 1 Cap PO DAILY Lasix (Furosemide) 80 Mg Tablet 1 Tab PO BID Carvedilol 25 Mg Tablet 12.5 Tab PO DAILYWLUN Aspir-Low (Aspirin) 81 Mg Tablet.dr 1 Tab PO DAILY Allergies Allergies: Coded Allergies: morphine (Verified Allergy, Intermediate, 10/25/14) ROS Review of System GEN: no Fevers no Chills EYES: no new Visual Complaints ENT: no EN Drainage no Hearing deficiets CVS: no Orthopnea no CP + Edema RESP: + SOB + EVANGELISTA GI: no Nausea no Vomiting : no Dysuria no Urgency HEME: no easy bruising no Palp Ly Nodes NEURO no Focal Weakness no Sz PSYCH: no Suicidal Ideation no Depression SKIN: no Rashes ENDO: no Polyuria or Polydipsia no Hot/Cold Intolerance MU SK: occ Arthraigia no Myalgia Physical Exam Physical Exam General Appearance: Awake Alert Oriented x 3 In no Distress Eyes: VIsion Unchanged Conjunctiva Normal EN: No EN Drainage Mucous Memb. moist Neck: no JVD + JVP Supple no Thyromegaly CVS: S1 S2 + Murmur No Gallop No Rub +3 Edema Resp: rare Rales + Rhonchi no Acc. Muscle use GI: BS +ve NO Bruit Non Tender Non Distended : no CVA tenderness; no Suprapubic Tenderness SKIN: no Rashes Breast Exam deferred Mu.Sk: Adequate ROM no Muscle Atrophy Heme: Unable to palpate Obvious LAD no palp Splenomegaly NEURO: Good Strength and Tone Cranial Nerves II - XII grossly intact Psych: ? Depressed no Active hallucination Vital Signs Vital Signs Date Time Temp Pulse Resp B/P Pulse Ox O2 Delivery O2 Flow Rate FiO2 08/13/16 11:55 96 Nasal Cannula 2.0 08/13/16 10:58 97.7 84 16 136/67 97.7 Assessment & Plan ESRD: Dialysis as below F 180 NR 3.5 Hrs 3 K 2.5 Ca 140 Na 40 HC03 Qb 350 + Qd 500+ Heparin 0 Units Uf 2-3 Kgs or to dry weight as tolerated May give 25-50 gms of 25% Albumin if needed to maintain Hemodynamic stability Treatment plan reviewed and discussed with representative Anemia: no Epogen for hgb > 10; Transfuse with next HD as needed. HTN: Current BP meds reviewed. See orders for changes. Bone & Mineral: follow phos and alter binder regimen prn SOB : CXR not revealing for obvious CHF per se; will challenge dry weight anyways Poor PO intake - ? FTT. - MAY HAVE CONTRIBUTED TO SOME WT LOSS TOO H/O CHF - clinically compensated currentlt ; ECHO to reval EF edema - Duplex to r/o DVTs. Await ECHO as ordered Discussed Plan of Care and prognosis etc. at length with family. Labs Labs Laboratory Tests Test 08/12/16 18:13 08/12/16 18:30 08/12/16 21:09 White Blood Count 12.1x10^3/uL (4.0-11.0) Red Blood Count 3.56x10^6/uL (3.50-5.40) Hemoglobin 12.4g/dL (12.0-15.5) Hematocrit 38.2% (36.0-47.0) Mean Corpuscular Volume 107fL (79-100) Mean Corpuscular Hemoglobin 35pg (25-35) Mean Corpuscular Hemoglobin Concent 32g/dL (31-37) Red Cell Distribution Width 16.0% (11.5-14.5) Platelet Count 111x10^3/uL (140-400) Neutrophils (%) (Auto) 74% (31-73) Lymphocytes (%) (Auto) 14% (24-48) Monocytes (%) (Auto) 8% (0-9) Eosinophils (%) (Auto) 4% (0-3) Basophils (%) (Auto) 1% (0-3) Neutrophils # (Auto) 9.0x10^3uL (1.8-7.7) Lymphocytes # (Auto) 1.6x10^3/uL (1.0-4.8) Monocytes # (Auto) 0.9x10^3/uL (0.0-1.1) Eosinophils # (Auto) 0.4x10^3/uL (0.0-0.7) Basophils # (Auto) 0.1x10^3/uL (0.0-0.2) Sodium Level 143mmol/L (136-145) Potassium Level 4.2mmol/L (3.5-5.1) Chloride Level 101mmol/L (98-107) Carbon Dioxide Level 25mmol/L (21-32) Anion Gap 17 (6-14) Blood Urea Nitrogen 61mg/dL (7-20) Creatinine 6.1mg/dL (0.6-1.0) Estimated GFR (Cockcroft-Gault) 6.6 BUN/Creatinine Ratio 10 (6-20) Glucose Level 294mg/dL (70-99) Calcium Level 8.4mg/dL (8.5-10.1) Magnesium Level 1.9mg/dL (1.8-2.4) Total Bilirubin 0.8mg/dL (0.2-1.0) Aspartate Amino Transf (AST/SGOT) 44U/L (15-37) Alanine Aminotransferase (ALT/SGPT) 79U/L (14-59) Alkaline Phosphatase 231U/L (46-116) Creatine Kinase 76U/L (26-192) Creatine Kinase MB (Mass) 2.0ng/mL (0.0-3.6) Creatine Kinase MB Relative Index 2.6% (0-4) Troponin I Quantitative < 0.017ng/mL (0.000-0.055) DK-Xpd-O-Type Natriuretic Peptide > 24352ge/mL (0-449) Total Protein 6.7g/dL (6.4-8.2) Albumin 3.4g/dL (3.4-5.0) Albumin/Globulin Ratio 1.0 (1.0-1.7) Glucose (Fingerstick) 247mg/dL (70-99) Laboratory Tests Test 08/12/16 18:13 08/12/16 18:30 08/12/16 21:09 White Blood Count 12.1x10^3/uL (4.0-11.0) Red Blood Count 3.56x10^6/uL (3.50-5.40) Hemoglobin 12.4g/dL (12.0-15.5) Hematocrit 38.2% (36.0-47.0) Mean Corpuscular Volume 107fL (79-100) Mean Corpuscular Hemoglobin 35pg (25-35) Mean Corpuscular Hemoglobin Concent 32g/dL (31-37) Red Cell Distribution Width 16.0% (11.5-14.5) Platelet Count 111x10^3/uL (140-400) Neutrophils (%) (Auto) 74% (31-73) Lymphocytes (%) (Auto) 14% (24-48) Monocytes (%) (Auto) 8% (0-9) Eosinophils (%) (Auto) 4% (0-3) Basophils (%) (Auto) 1% (0-3) Neutrophils # (Auto) 9.0x10^3uL (1.8-7.7) Lymphocytes # (Auto) 1.6x10^3/uL (1.0-4.8) Monocytes # (Auto) 0.9x10^3/uL (0.0-1.1) Eosinophils # (Auto) 0.4x10^3/uL (0.0-0.7) Basophils # (Auto) 0.1x10^3/uL (0.0-0.2) Sodium Level 143mmol/L (136-145) Potassium Level 4.2mmol/L (3.5-5.1) Chloride Level 101mmol/L (98-107) Carbon Dioxide Level 25mmol/L (21-32) Anion Gap 17 (6-14) Blood Urea Nitrogen 61mg/dL (7-20) Creatinine 6.1mg/dL (0.6-1.0) Estimated GFR (Cockcroft-Gault) 6.6 BUN/Creatinine Ratio 10 (6-20) Glucose Level 294mg/dL (70-99) Calcium Level 8.4mg/dL (8.5-10.1) Magnesium Level 1.9mg/dL (1.8-2.4) Total Bilirubin 0.8mg/dL (0.2-1.0) Aspartate Amino Transf (AST/SGOT) 44U/L (15-37) Alanine Aminotransferase (ALT/SGPT) 79U/L (14-59) Alkaline Phosphatase 231U/L (46-116) Creatine Kinase 76U/L (26-192) Creatine Kinase MB (Mass) 2.0ng/mL (0.0-3.6) Creatine Kinase MB Relative Index 2.6% (0-4) Troponin I Quantitative < 0.017ng/mL (0.000-0.055) YM-Ebb-Z-Type Natriuretic Peptide > 64878rd/mL (0-449) Total Protein 6.7g/dL (6.4-8.2) Albumin 3.4g/dL (3.4-5.0) Albumin/Globulin Ratio 1.0 (1.0-1.7) Glucose (Fingerstick) 247mg/dL (70-99) Images Images Portable chest, 08/12/2016: History: Shortness of breath Comparison is made to a study from 08/06/2016. There has been a previous median sternotomy. The heart is enlarged. There is calcific plaquing of the aorta. The pulmonary vascularity is within normal limits. There is basilar linear scarring. There is mild discoid atelectasis in the right base. No pleural fluid is seen. IMPRESSION: 1. Cardiomegaly and aortic atherosclerosis. 2. Mild right basilar discoid atelectasis. CHAO MOY MD Aug 13, 2016 12:43
--- NOTE | 2016-08-13 12:53 | PDOC2 ---
CONSULT Date of Consult Date of Consult DATE: 08/13/16 TIME: 12:52 Reason for Consult Reason for Consult: CHF, Fluid overload Identification/Chief Complaint Chief Complaint Lower extremity swelling Source Source: Chart review, Patient History of Present Illness Reason for Visit: 85 year old female who presents with shortness of breath with worsening symptoms over the past 2-3 days. Patient was recently admitted to the hospital on August 05, 2016 and treated for respiratory failure and renal failure. Patient was discharged on August 07, 2016 with doxycycline for pneumonia. The patient has PMH significant for CHF and ESRD with MWF schedule dialysis. She has not missed any sessions and her last dialysis session was Saturday. She makes very little urine. Patient states over the weekend she has had worsening shortness of breath while at rest. The patient also notes that she has had worsening swelling to her legs and has had weeping edema from both feet. She has been on lasix in the past with her CHF. Patient denies any chest pain or abdominal pain. Patient denies any fevers. She complains of a constant cough and of these itchy lesions throughout her chest and legs. Her PCP is Dr. Paulino. Dr. Epstein has recently prescribed her some medications for these "bites". Past Medical History Cardiovascular: CAD, CHF (EF 20 % on most recent ECHO in our system), HTN, Valve insufficiency Pulmonary: Bronchitis GI: No pertinent hx Heme/Onc: Anemia NOS Renal/: Chronic renal insuff, Chronic renal failure, UTI Endocrine: Diabetes, Hyperparathyroidism Past Surgical History Past Surgical History: CABG Family History Family History: Heart Disease, High Cholestrol, Hypertension Social History No ALCOHOL: none Drugs: None Current Problem List Problem List Problems Medical Problems: (1) Congestive heart failure Status: Acute (2) End stage renal disease Status: Acute (3) Fluid overload Status: Acute (4) Reactive airway disease Status: Acute (5) Uncontrolled diabetes mellitus Status: Acute Current Medications Current Medications Current Medications Albuterol/ Ipratropium (Duoneb) 3 ml 1X ONCE NEB Last administered on t 18:29; Start 08/12/16 at 18:15; Stop 08/12/16 at 18:24; Status DC Ondansetron HCl (Zofran) 4 mg PRN Q8HRS PRN IV NAUSEA/VOMITING; Start 08/12/16 at 19:45; Stop 08/13/16 at 19:44 Fentanyl Citrate (Fentanyl 2ml Vial) 50 mcg PRN Q2HR PRN IV PAIN; Start at 19:45; Stop 08/13/16 at 19:44 Albuterol/ Ipratropium (Duoneb) 3 ml RTQID NEB Last administered on 08/13/16t 11:55; Start 08/12/16 at 20:00; Stop 08/13/16 at 19:59 Allopurinol (Zyloprim) 100 mg DAILYWSUP PO ; Start 08/13/16 at 17:00 Aspirin (Ecotrin) 81 mg DAILY PO ; Start 08/14/16 at 09:00 Cyclobenzaprine HCl (Flexeril) 10 mg TID PO ; Start 08/13/16 at 10:00 Diltiazem HCl (Cardizem 24hr Cd) 180 mg DAILY PO ; Start 08/13/16 at 10:00 Vitamin B Complex/ Vitamin C (Bela-Roland) 1 tab DAILYBFRSUP PO ; Start 08/13/16 at 17:00 Furosemide (Lasix) 80 mg BID92 PO ; Start 08/13/16 at 14:00; Stop 08/13/16 at 14 :00; Status DC Hydralazine HCl (Apresoline) 25 mg QTUTHSASU PO ; Start 08/14/16 at 16:00 Latanoprost (Xalatan) 1 drop HS OU ; Start 08/13/16 at 21:00 Sevelamer Carbonate (Renvela) 2.4 gm TID PO ; Start 08/13/16 at 10:00 Carvedilol (Coreg) 12.5 mg DAILYWLUN PO ; Start 08/13/16 at 12:00 Vitamin D (Vitamin D3) 2,000 unit HS PO ; Start 08/13/16 at 21:00 Non-Formulary Medication 15 mg TID PRN PRN PO COUGH; Start 08/13/16 at 09:45; Status UNV Non-Formulary Medication 25 unit HS SQ ; Start 08/13/16 at 21:00; Stop 08/13/16 at 21:00; Status DC Non-Formulary Medication 30 gm WEEKLY PO ; Start 08/20/16 at 09:00; Status UNV Insulin Detemir (Levemir) 20 units QHS SQ ; Start 08/13/16 at 21:00 Insulin Aspart (Novolog) 0-9 UNITS TIDWMEALS SQ ; Start 08/13/16 at 12:00; Stop 08/13/16 at 12:44; Status DC Dextrose (Dextrose 50%-Water Syringe) 12.5 gm PRN Q15MIN PRN IV SEE COMMENTS; Start 08/13/16 at 09:45 Acetaminophen (Tylenol) 650 mg PRN Q6HRS PRN PO FEVER; Start 08/13/16 at 09:45 Ondansetron HCl (Zofran) 4 mg PRN Q6HRS PRN IV NAUSEA/VOMITING; Start 08/13/16 at 09:45 Tramadol HCl (Ultram) 50 mg PRN Q6HRS PRN PO PAIN; Start 08/13/16 at 09:45; Status UNV Guaifenesin/ Codeine Phosphate (Robitussin Ac) 5 ml PRN Q6HRS PRN PO COUGH; Start 08/13/16 at 09:45; Status UNV Insulin Aspart (Novolog) 0-9 UNITS QIDACHS SQ ; Start 08/13/16 at 16:30; Status UNV Heparin Sodium (Porcine) 5,000 unit Q8HRS SQ ; Start 08/13/16 at 14:00; Status UNV Active Scripts Active Doxycycline Hyclate 100 Mg Tablet 100 Mg PO BID Robitussin (Dextromethorphan HBr) 15 Mg Capsule 15 Mg PO TID PRN PRN Reported Ondansetron Odt (Ondansetron) 4 Mg Tab.rapdis 1 Tab PO PRN Q8HRS PRN Sodium Polystyrene Sulfonate 15 Gm/60 Ml Oral.susp 30 Gm PO WEEKLY Novolog (Insulin Aspart) 100 Unit/1 Ml Cartridge 0 SQ sliding scale: 140 - 180 = 1 unit 181 - 240 = 2 units 241 - 300 = 3 units 301 - 400 = 4 units 401 - 500 = 5 units Lantus (Insulin Glargine,Hum.rec.anlog) 100 Unit/1 Ml Vial 25 Unit SQ HS Renvela (Sevelamer Carbonate) 2.4 Gm Powd.pack 2.4 Gm PO TID take with 20 oz cranberry juice Nephro-Roland Tablet (Folic Acid/Vitamin B Comp W-C) 0.8 Mg Tablet 1 Tab PO DAILYBFRSUP Vitamin D (Cholecalciferol (Vitamin D3)) 2,000 Unit Capsule 1 Cap PO HS Latanoprost 2.5 Ml Drops 1 Drop OP HS Hydralazine Hcl 25 Mg Tablet 1 Tab PO QTUTHSASU Allopurinol 100 Mg Tablet 1 Tab PO DAILYWSUP Cyclobenzaprine Hcl 10 Mg Tablet 1 Tab PO TID Diltiazem 24HR Cd (Diltiazem Hcl) 180 Mg Cap.er.24h 1 Cap PO DAILY Lasix (Furosemide) 80 Mg Tablet 1 Tab PO BID Carvedilol 25 Mg Tablet 12.5 Tab PO DAILYWLUN Aspir-Low (Aspirin) 81 Mg Tablet.dr 1 Tab PO DAILY Allergies Allergies: Coded Allergies: morphine (Verified Allergy, Intermediate, 10/25/14) Physical Exam General: Alert, Oriented X3, Cooperative, No acute distress HEENT: Atraumatic, EOMI Lungs: Other (expiratory wheezes ) Heart: Regular rate, Normal S1, Normal S2 Abdomen: Normal bowel sounds, Soft, No tenderness Extremities: Other (3+ pitting edema lower extremities bilaterally; weeping bilaterally) Skin: Other (large patchy erythematous plaques on chest and lower extremities) Neuro: Normal speech, Normal tone Psych/Mental Status: Mental status NL, Mood NL Vitals VITALS Vital Signs Date Time Temp Pulse Resp B/P Pulse Ox O2 Delivery O2 Flow Rate FiO2 08/13/16 11:55 96 Nasal Cannula 2.0 08/13/16 10:58 97.7 84 16 136/67 97.7 Labs Labs Laboratory Tests Test 08/12/16 18:13 08/12/16 18:30 08/12/16 21:09 White Blood Count 12.1x10^3/uL (4.0-11.0) Red Blood Count 3.56x10^6/uL (3.50-5.40) Hemoglobin 12.4g/dL (12.0-15.5) Hematocrit 38.2% (36.0-47.0) Mean Corpuscular Volume 107fL (79-100) Mean Corpuscular Hemoglobin 35pg (25-35) Mean Corpuscular Hemoglobin Concent 32g/dL (31-37) Red Cell Distribution Width 16.0% (11.5-14.5) Platelet Count 111x10^3/uL (140-400) Neutrophils (%) (Auto) 74% (31-73) Lymphocytes (%) (Auto) 14% (24-48) Monocytes (%) (Auto) 8% (0-9) Eosinophils (%) (Auto) 4% (0-3) Basophils (%) (Auto) 1% (0-3) Neutrophils # (Auto) 9.0x10^3uL (1.8-7.7) Lymphocytes # (Auto) 1.6x10^3/uL (1.0-4.8) Monocytes # (Auto) 0.9x10^3/uL (0.0-1.1) Eosinophils # (Auto) 0.4x10^3/uL (0.0-0.7) Basophils # (Auto) 0.1x10^3/uL (0.0-0.2) Sodium Level 143mmol/L (136-145) Potassium Level 4.2mmol/L (3.5-5.1) Chloride Level 101mmol/L (98-107) Carbon Dioxide Level 25mmol/L (21-32) Anion Gap 17 (6-14) Blood Urea Nitrogen 61mg/dL (7-20) Creatinine 6.1mg/dL (0.6-1.0) Estimated GFR (Cockcroft-Gault) 6.6 BUN/Creatinine Ratio 10 (6-20) Glucose Level 294mg/dL (70-99) Calcium Level 8.4mg/dL (8.5-10.1) Magnesium Level 1.9mg/dL (1.8-2.4) Total Bilirubin 0.8mg/dL (0.2-1.0) Aspartate Amino Transf (AST/SGOT) 44U/L (15-37) Alanine Aminotransferase (ALT/SGPT) 79U/L (14-59) Alkaline Phosphatase 231U/L (46-116) Creatine Kinase 76U/L (26-192) Creatine Kinase MB (Mass) 2.0ng/mL (0.0-3.6) Creatine Kinase MB Relative Index 2.6% (0-4) Troponin I Quantitative < 0.017ng/mL (0.000-0.055) CV-Aiu-U-Type Natriuretic Peptide > 73568ow/mL (0-449) Total Protein 6.7g/dL (6.4-8.2) Albumin 3.4g/dL (3.4-5.0) Albumin/Globulin Ratio 1.0 (1.0-1.7) Glucose (Fingerstick) 247mg/dL (70-99) Laboratory Tests Test 08/12/16 18:13 08/12/16 18:30 08/12/16 21:09 White Blood Count 12.1x10^3/uL (4.0-11.0) Red Blood Count 3.56x10^6/uL (3.50-5.40) Hemoglobin 12.4g/dL (12.0-15.5) Hematocrit 38.2% (36.0-47.0) Mean Corpuscular Volume 107fL (79-100) Mean Corpuscular Hemoglobin 35pg (25-35) Mean Corpuscular Hemoglobin Concent 32g/dL (31-37) Red Cell Distribution Width 16.0% (11.5-14.5) Platelet Count 111x10^3/uL (140-400) Neutrophils (%) (Auto) 74% (31-73) Lymphocytes (%) (Auto) 14% (24-48) Monocytes (%) (Auto) 8% (0-9) Eosinophils (%) (Auto) 4% (0-3) Basophils (%) (Auto) 1% (0-3) Neutrophils # (Auto) 9.0x10^3uL (1.8-7.7) Lymphocytes # (Auto) 1.6x10^3/uL (1.0-4.8) Monocytes # (Auto) 0.9x10^3/uL (0.0-1.1) Eosinophils # (Auto) 0.4x10^3/uL (0.0-0.7) Basophils # (Auto) 0.1x10^3/uL (0.0-0.2) Sodium Level 143mmol/L (136-145) Potassium Level 4.2mmol/L (3.5-5.1) Chloride Level 101mmol/L (98-107) Carbon Dioxide Level 25mmol/L (21-32) Anion Gap 17 (6-14) Blood Urea Nitrogen 61mg/dL (7-20) Creatinine 6.1mg/dL (0.6-1.0) Estimated GFR (Cockcroft-Gault) 6.6 BUN/Creatinine Ratio 10 (6-20) Glucose Level 294mg/dL (70-99) Calcium Level 8.4mg/dL (8.5-10.1) Magnesium Level 1.9mg/dL (1.8-2.4) Total Bilirubin 0.8mg/dL (0.2-1.0) Aspartate Amino Transf (AST/SGOT) 44U/L (15-37) Alanine Aminotransferase (ALT/SGPT) 79U/L (14-59) Alkaline Phosphatase 231U/L (46-116) Creatine Kinase 76U/L (26-192) Creatine Kinase MB (Mass) 2.0ng/mL (0.0-3.6) Creatine Kinase MB Relative Index 2.6% (0-4) Troponin I Quantitative < 0.017ng/mL (0.000-0.055) KV-Zsh-H-Type Natriuretic Peptide > 43616xr/mL (0-449) Total Protein 6.7g/dL (6.4-8.2) Albumin 3.4g/dL (3.4-5.0) Albumin/Globulin Ratio 1.0 (1.0-1.7) Glucose (Fingerstick) 247mg/dL (70-99) Assessment/Plan Assessment/Plan Assessment: CHF CAD s/p CABG 2003 ESRD on MWF dialysis schedule HTN, controlled DM2 Plan: 1. Patient appears very fluid overloaded despite regular attendance at dialysis -Dialysis to remove excess fluid -D/C lasix 2. No echocardiogram recommended at this time. Echocardiogram 11/2015 - 20% EF, moderate MR, moderate TR, mild NE, elevated PA pressure at 43 3. Woundcare consult for itchy plaques and open sores on feet. Thank you for the opportunity to provide care for this patient. ELIAZAR TORRE MD Aug 13, 2016 12:53
[2016-08-13] MEDS ORDERED: IV NORMAL SALINE 1000ML BAG 1,000 ML IV PRN (13:11)
[2016-08-13] MEDS ORDERED: DIPHENHYDRAMINE 50 MG/ML VIAL. IV PRN ×2 (13:15)
[2016-08-13] MEDS ORDERED: CLONIDINE HCL 0.1 MG TABLET PO PRN (13:15)
[2016-08-13] MEDS ORDERED: ALBUMIN HUMAN 25% 200 ML IV PRN (13:15)
[2016-08-13] MEDS ORDERED: DIALYSIS PATIENT. MC PRN (13:15)
[2016-08-13] MEDS ORDERED: LABETALOL 20 MG/4 ML DISP.SYRIN. IVP PRN (13:15)
[2016-08-13] MEDS ORDERED: MAGNESIUM SULFATE 2GM 50 ML IV PRN (13:15)
[2016-08-13] MEDS ORDERED: ACETAMINOPHEN 500 MG TABLET PO PRN (13:15)
[2016-08-13] MEDS ORDERED: LIDOCAINE 1% PF 2 ML VIAL. ONE (13:35)
[2016-08-13] MEDS ORDERED: FUROSEMIDE 80 MG TABLET. PO SCH (14:00)
[2016-08-13] MEDS: HEPARIN PF for SUB-Q USE 5,000 UNIT/0.5 ML VIAL. SQ SCH ×2 (14:00→21:07)
[2016-08-13 14:12] LABS: BASO % 1 % (0-3); EOS % 6 % (0-3); HEMATOCRIT 34.1 % (36.0-47.0); HEMOGLOBIN 11.4 g/dL (12.0-15.5); LYMPH # 1.5 x10^3/uL (1.0-4.8); LYMPH % 31 % (24-48); MEAN CORPUSCULAR HEMOGLOBIN 35 pg (25-35); MEAN CORPUSCULAR HGB CONC 33 g/dL (31-37); MEAN CORPUSCULAR VOLUME 106 fL (79-100); MONO % 5 % (0-9); NEUT % 58 % (31-73); PLATELET COUNT 99 x10^3/uL (140-400); RED BLOOD COUNT 3.22 x10^6/uL (3.50-5.40); RED CELL DISTRIBUTION WIDTH 15.8 % (11.5-14.5); WHITE BLOOD COUNT 4.7 x10^3/uL (4.0-11.0)
[2016-08-13 14:19] LABS: CREATININE 5.9 mg/dL (0.6-1.0); GFR 6.8; POTASSIUM 3.4 mmol/L (3.5-5.1)
[2016-08-13 17:00] VITALS: BP 114/69
--- NOTE | 2016-08-13 17:58 | PDOC ---
PULMONARY PROGRESS NOTES Vitals Vital Signs Date Time Temp Pulse Resp B/P Pulse Ox O2 Delivery O2 Flow Rate FiO2 08/13/16 11:55 96 Nasal Cannula 2.0 08/13/16 10:58 97.7 84 16 136/67 97.7 General: Alert Lungs: Crackles Cardiovascular: S1, S2 Abdomen: Soft Extremities: No Edema Labs Laboratory Tests Test 08/12/16 18:13 08/12/16 18:30 08/12/16 21:09 08/13/16 08:17 White Blood Count 12.1x10^3/uL (4.0-11.0) Red Blood Count 3.56x10^6/uL (3.50-5.40) Hemoglobin 12.4g/dL (12.0-15.5) Hematocrit 38.2% (36.0-47.0) Mean Corpuscular Volume 107fL (79-100) Mean Corpuscular Hemoglobin 35pg (25-35) Mean Corpuscular Hemoglobin Concent 32g/dL (31-37) Red Cell Distribution Width 16.0% (11.5-14.5) Platelet Count 111x10^3/uL (140-400) Neutrophils (%) (Auto) 74% (31-73) Lymphocytes (%) (Auto) 14% (24-48) Monocytes (%) (Auto) 8% (0-9) Eosinophils (%) (Auto) 4% (0-3) Basophils (%) (Auto) 1% (0-3) Neutrophils # (Auto) 9.0x10^3uL (1.8-7.7) Lymphocytes # (Auto) 1.6x10^3/uL (1.0-4.8) Monocytes # (Auto) 0.9x10^3/uL (0.0-1.1) Eosinophils # (Auto) 0.4x10^3/uL (0.0-0.7) Basophils # (Auto) 0.1x10^3/uL (0.0-0.2) Sodium Level 143mmol/L (136-145) Potassium Level 4.2mmol/L (3.5-5.1) Chloride Level 101mmol/L (98-107) Carbon Dioxide Level 25mmol/L (21-32) Anion Gap 17 (6-14) Blood Urea Nitrogen 61mg/dL (7-20) Creatinine 6.1mg/dL (0.6-1.0) Estimated GFR (Cockcroft-Gault) 6.6 BUN/Creatinine Ratio 10 (6-20) Glucose Level 294mg/dL (70-99) Calcium Level 8.4mg/dL (8.5-10.1) Magnesium Level 1.9mg/dL (1.8-2.4) Total Bilirubin 0.8mg/dL (0.2-1.0) Aspartate Amino Transf (AST/SGOT) 44U/L (15-37) Alanine Aminotransferase (ALT/SGPT) 79U/L (14-59) Alkaline Phosphatase 231U/L (46-116) Creatine Kinase 76U/L (26-192) Creatine Kinase MB (Mass) 2.0ng/mL (0.0-3.6) Creatine Kinase MB Relative Index 2.6% (0-4) Troponin I Quantitative < 0.017ng/mL (0.000-0.055) QV-Srl-M-Type Natriuretic Peptide > 87641ys/mL (0-449) Total Protein 6.7g/dL (6.4-8.2) Albumin 3.4g/dL (3.4-5.0) Albumin/Globulin Ratio 1.0 (1.0-1.7) Glucose (Fingerstick) 247mg/dL (70-99) 244mg/dL (70-99) Test 08/13/16 12:17 08/13/16 13:50 Glucose (Fingerstick) 313mg/dL (70-99) White Blood Count 4.7x10^3/uL (4.0-11.0) Red Blood Count 3.22x10^6/uL (3.50-5.40) Hemoglobin 11.4g/dL (12.0-15.5) Hematocrit 34.1% (36.0-47.0) Mean Corpuscular Volume 106fL (79-100) Mean Corpuscular Hemoglobin 35pg (25-35) Mean Corpuscular Hemoglobin Concent 33g/dL (31-37) Red Cell Distribution Width 15.8% (11.5-14.5) Platelet Count 99x10^3/uL (140-400) Neutrophils (%) (Auto) 58% (31-73) Lymphocytes (%) (Auto) 31% (24-48) Monocytes (%) (Auto) 5% (0-9) Eosinophils (%) (Auto) 6% (0-3) Basophils (%) (Auto) 1% (0-3) Neutrophils # (Auto) 2.8x10^3uL (1.8-7.7) Lymphocytes # (Auto) 1.5x10^3/uL (1.0-4.8) Monocytes # (Auto) 0.2x10^3/uL (0.0-1.1) Eosinophils # (Auto) 0.3x10^3/uL (0.0-0.7) Basophils # (Auto) 0.0x10^3/uL (0.0-0.2) Sodium Level 142mmol/L (136-145) Potassium Level 3.4mmol/L (3.5-5.1) Chloride Level 101mmol/L (98-107) Carbon Dioxide Level 24mmol/L (21-32) Anion Gap 17 (6-14) Blood Urea Nitrogen 59mg/dL (7-20) Creatinine 5.9mg/dL (0.6-1.0) Estimated GFR (Cockcroft-Gault) 6.8 Glucose Level 284mg/dL (70-99) Calcium Level 8.0mg/dL (8.5-10.1) Laboratory Tests Test 08/12/16 18:13 08/12/16 18:30 08/12/16 21:09 08/13/16 08:17 White Blood Count 12.1x10^3/uL (4.0-11.0) Red Blood Count 3.56x10^6/uL (3.50-5.40) Hemoglobin 12.4g/dL (12.0-15.5) Hematocrit 38.2% (36.0-47.0) Mean Corpuscular Volume 107fL (79-100) Mean Corpuscular Hemoglobin 35pg (25-35) Mean Corpuscular Hemoglobin Concent 32g/dL (31-37) Red Cell Distribution Width 16.0% (11.5-14.5) Platelet Count 111x10^3/uL (140-400) Neutrophils (%) (Auto) 74% (31-73) Lymphocytes (%) (Auto) 14% (24-48) Monocytes (%) (Auto) 8% (0-9) Eosinophils (%) (Auto) 4% (0-3) Basophils (%) (Auto) 1% (0-3) Neutrophils # (Auto) 9.0x10^3uL (1.8-7.7) Lymphocytes # (Auto) 1.6x10^3/uL (1.0-4.8) Monocytes # (Auto) 0.9x10^3/uL (0.0-1.1) Eosinophils # (Auto) 0.4x10^3/uL (0.0-0.7) Basophils # (Auto) 0.1x10^3/uL (0.0-0.2) Sodium Level 143mmol/L (136-145) Potassium Level 4.2mmol/L (3.5-5.1) Chloride Level 101mmol/L (98-107) Carbon Dioxide Level 25mmol/L (21-32) Anion Gap 17 (6-14) Blood Urea Nitrogen 61mg/dL (7-20) Creatinine 6.1mg/dL (0.6-1.0) Estimated GFR (Cockcroft-Gault) 6.6 BUN/Creatinine Ratio 10 (6-20) Glucose Level 294mg/dL (70-99) Calcium Level 8.4mg/dL (8.5-10.1) Magnesium Level 1.9mg/dL (1.8-2.4) Total Bilirubin 0.8mg/dL (0.2-1.0) Aspartate Amino Transf (AST/SGOT) 44U/L (15-37) Alanine Aminotransferase (ALT/SGPT) 79U/L (14-59) Alkaline Phosphatase 231U/L (46-116) Creatine Kinase 76U/L (26-192) Creatine Kinase MB (Mass) 2.0ng/mL (0.0-3.6) Creatine Kinase MB Relative Index 2.6% (0-4) Troponin I Quantitative < 0.017ng/mL (0.000-0.055) QE-Cbh-P-Type Natriuretic Peptide > 15980qs/mL (0-449) Total Protein 6.7g/dL (6.4-8.2) Albumin 3.4g/dL (3.4-5.0) Albumin/Globulin Ratio 1.0 (1.0-1.7) Glucose (Fingerstick) 247mg/dL (70-99) 244mg/dL (70-99) Test 08/13/16 12:17 08/13/16 13:50 Glucose (Fingerstick) 313mg/dL (70-99) White Blood Count 4.7x10^3/uL (4.0-11.0) Red Blood Count 3.22x10^6/uL (3.50-5.40) Hemoglobin 11.4g/dL (12.0-15.5) Hematocrit 34.1% (36.0-47.0) Mean Corpuscular Volume 106fL (79-100) Mean Corpuscular Hemoglobin 35pg (25-35) Mean Corpuscular Hemoglobin Concent 33g/dL (31-37) Red Cell Distribution Width 15.8% (11.5-14.5) Platelet Count 99x10^3/uL (140-400) Neutrophils (%) (Auto) 58% (31-73) Lymphocytes (%) (Auto) 31% (24-48) Monocytes (%) (Auto) 5% (0-9) Eosinophils (%) (Auto) 6% (0-3) Basophils (%) (Auto) 1% (0-3) Neutrophils # (Auto) 2.8x10^3uL (1.8-7.7) Lymphocytes # (Auto) 1.5x10^3/uL (1.0-4.8) Monocytes # (Auto) 0.2x10^3/uL (0.0-1.1) Eosinophils # (Auto) 0.3x10^3/uL (0.0-0.7) Basophils # (Auto) 0.0x10^3/uL (0.0-0.2) Sodium Level 142mmol/L (136-145) Potassium Level 3.4mmol/L (3.5-5.1) Chloride Level 101mmol/L (98-107) Carbon Dioxide Level 24mmol/L (21-32) Anion Gap 17 (6-14) Blood Urea Nitrogen 59mg/dL (7-20) Creatinine 5.9mg/dL (0.6-1.0) Estimated GFR (Cockcroft-Gault) 6.8 Glucose Level 284mg/dL (70-99) Calcium Level 8.0mg/dL (8.5-10.1) Medications Active Scripts Medications Dose Route/Sig Days Date Category Dose Instructions Doxycycline Hyclate 100 Mg Tablet 100 Mg PO BID 08/07/16 Rx Robitussin (Dextromethorphan HBr) 15 Mg Capsule 15 Mg PO TID PRN PRN 08/07/16 Rx Ondansetron Odt (Ondansetron) 4 Mg Tab.rapdis 1 Tab PO PRN Q8HRS PRN 08/05/16 Reported Sodium Polystyrene Sulfonate 15 Gm/60 Ml Oral.susp 30 Gm PO WEEKLY 08/05/16 Reported Novolog (Insulin Aspart) 100 Unit/1 Ml Cartridge 0 SQ 11/26/15 Reported sliding scale: 140 - 180 = 1 unit 181 - 240 = 2 units 241 - 300 = 3 units 301 - 400 = 4 units 401 - 500 = 5 units Lantus (Insulin Glargine,Hum.rec.anlog) 100 Unit/1 Ml Vial 25 Unit SQ HS 11/26/15 Reported Renvela (Sevelamer Carbonate) 2.4 Gm Powd.pack 2.4 Gm PO TID 11/26/15 Reported take with 20 oz cranberry juice Nephro-Roland Tablet (Folic Acid/Vitamin B Comp W-C) 0.8 Mg Tablet 1 Tab PO DAILYBFRSUP 11/26/15 Reported Vitamin D (Cholecalciferol (Vitamin D3)) 2,000 Unit Capsule 1 Cap PO HS 11/26/15 Reported Latanoprost 2.5 Ml Drops 1 Drop OP HS 11/26/15 Reported Hydralazine Hcl 25 Mg Tablet 1 Tab PO QTUTHSASU 11/26/15 Reported Allopurinol 100 Mg Tablet 1 Tab PO DAILYWSUP 11/26/15 Reported Cyclobenzaprine Hcl 10 Mg Tablet 1 Tab PO TID 11/26/15 Reported Diltiazem 24HR Cd (Diltiazem Hcl) 180 Mg Cap.er.24h 1 Cap PO DAILY 11/26/15 Reported Lasix (Furosemide) 80 Mg Tablet 1 Tab PO BID 11/26/15 Reported Carvedilol 25 Mg Tablet 12.5 Tab PO DAILYWLUN 11/26/15 Reported Aspir-Low (Aspirin) 81 Mg Tablet.dr 1 Tab PO DAILY 11/26/15 Reported Impression . Paroxysmal coughing spells Possible viral in nature rule out aspiration see my consult JULIANE MILLER MD Aug 13, 2016 17:57
[2016-08-13] MEDS: ALLOPURINOL 100 MG TABLET. PO SCH (18:19)
[2016-08-13] MEDS: CARVEDILOL 12.5 MG TABLET. PO SCH (18:19)
[2016-08-13] MEDS: DILTIAZEM HCL 180 MG CAP.ER.24H PO SCH (18:19)
[2016-08-13] MEDS: FOLIC/VIT B COMP W-C (RENAL) TABLET. PO SCH (18:19)
[2016-08-13] MEDS: INSULIN ASPART 300 UNITS/3 ML INSULN.PEN SQ SCH ×2 (18:23→20:55)
[2016-08-13 19:15] VITALS: BP 128/62
[2016-08-13] MEDS: CHOLECALCIFEROL (VITAMIN D3) 1,000 UNIT TABLET PO SCH (20:52)
[2016-08-13] MEDS: LATANOPROST 0.005% OPHTH SOLUTION 2.5ML BOTTLE. OU SCH (20:52)
[2016-08-13] MEDS ORDERED: INSULIN DETEMIR 300 UNITS/3 ML INSULN.PEN. SQ SCH (21:00)
[2016-08-13] MEDS ORDERED: INSULIN GLARGINE HUM REC ANLOG 25 UNIT SQ SCH (21:00)
[2016-08-13 22:55] VITALS: BP 98/48
--- NOTE | 2016-08-14 00:04 | CONS ---
DATE OF CONSULTATION: HISTORY OF PRESENT ILLNESS: An 85-year-old fair-skinned female who I follow for her ESRD needs, she dialyzes Saturday, Saturday and Saturday was here about a week ago with increasing shortness of breath. She tells me she was diagnosed with pneumonia at that time. Discharge summary is not available at this time for evaluation. She is known to have an echocardiogram from 12/17/2015, shows an EF of 20%. ____ chest x-rays as reported and did not show significant vascular congestion per se. In this setting, she claims she had increasing shortness of breath ongoing issues with cough, some wheezing and she presented to the ER for further evaluation. She was admitted for the same. Today is her regular dialysis day. We were consulted for further evaluation of the same. She does admit to occasionally drinking fluids, but she did not think it is more excessive than what she used. She does not make as much urine, though at this time. She does admit to some amount of edema in her lower extremity; also, she thinks that this has been slowly gradually getting worse. Her LFTs are mildly elevated today. A recent echo was not available. This has been ordered and ____ findings of the same. CHAO MOY MD DR: YELITZA/regan JOB#: [id number] / [id number]
--- NOTE | 2016-08-14 01:47 | CONS ---
DATE OF CONSULTATION: 08/13/2016 ATTENDING PHYSICIAN: Dr. Lutz. REASON FOR CONSULTATION: The patient is seen in pulmonary consultation at the request of Dr. Lutz for shortness of air and wheezing. HISTORY OF PRESENT ILLNESS: The patient is an 85-year-old that is known to me from recent hospitalization. She was admitted back on 06 of August with significant paroxysmal coughing spells at that time. At that time, I felt that the cough was related to a viral tracheobronchitis. The patient presented now with increasing shortness of air, wheezing, cough, mostly nonproductive, abnormal x-ray compatible with CHF. She has end-stage renal disease. She just finished her dialysis. She is scheduled to undergo dialysis for the next 4 days. I queried her about reflux. She denies any reflux symptomatology. She only drinks one caffeinated beverage a day. She denies any postnasal drainage. She had no new medications have been added to her regimen. I reviewed her medication list. Nothing stands out that would cause the cough. She is currently not on an HENRY inhibitor. PAST MEDICAL HISTORY: End-stage renal disease, on hemodialysis, coronary artery disease, chronic congestive heart failure, hypertension, chronic diabetes. PAST SURGICAL HISTORY: Status post coronary artery bypass grafting. FAMILY HISTORY: Heart disease, hyperlipidemia, hypertension. SOCIAL HISTORY: She has never smoked. Denies any alcohol intake. ALLERGIES: MORPHINE. CURRENT MEDICATIONS: List was reviewed. Please see the MRAD. REVIEW OF SYSTEMS: As indicated above, otherwise a 10-point system was reviewed and negative. PHYSICAL EXAMINATION: VITAL SIGNS: The patient was in no significant respiratory distress on 2 L of oxygen supplementation, saturation greater than 92%. HEENT: Eyes, the sclerae were nonicteric. NECK: Jugular venous distention could not be assessed secondary to body habitus. CHEST: Full expansion. LUNGS: Crackles with no wheezes. CARDIOVASCULAR: Regular rate and rhythm with S1, S2, no S3. ABDOMEN: Soft, nontender, nondistended. EXTREMITIES: No clubbing, cyanosis or significant edema. NEUROLOGIC: The patient was awake, alert, following commands. A detailed neuro exam was not performed. LABORATORY DATA: Reviewed. White count was normal. Electrolytes were deranged. BUN and creatinine was elevated. Troponin was not elevated. BNP was elevated. Chest x-ray revealed some atelectasis in the right lower lobe with vascular congestion. IMPRESSION: 1. Paroxysmal coughing spells. The patient was admitted back on 08/06/2016. At that time, it was felt to be due to viral tracheobronchitis. At this juncture, I think it is multifactorial in nature secondary to acute on chronic CHF, possibly silent aspiration. No evidence of reflux or postnasal drainage. I reviewed her medication list, I do not see any medications that would be the culprit. 2. Acute on chronic heart failure. 3. Abnormal x-ray. 4. Bronchospasm, I suspect secondary to congestive heart failure. PLAN: 1. Continue negative fluid balance. 2. Consult Speech. 3. P.r.n. breathing treatments. 4. Follow clinical course and make further recommendations. I do appreciate the privilege in sharing the patient's care. JULIANE MILLER MD DR: JESÚS/regan JOB#: [id number] / [id number]
[2016-08-14] MEDS: GUAIFENESIN/CODEINE 100mg/10mg 5 ML LIQUID. PO PRN ×2 (02:33→21:01)
[2016-08-14 03:05] VITALS: BP 102/49
[2016-08-14 04:21] LABS: BASO # 0.1 x10^3/uL (0.0-0.2); BASO % 1 % (0-3); EOS % 4 % (0-3); HEMOGLOBIN 11.7 g/dL (12.0-15.5); LYMPH # 1.3 x10^3/uL (1.0-4.8); LYMPH % 12 % (24-48); MEAN CORPUSCULAR HEMOGLOBIN 35 pg (25-35); MEAN CORPUSCULAR HGB CONC 33 g/dL (31-37); MEAN CORPUSCULAR VOLUME 106 fL (79-100); MONO % 9 % (0-9); NEUT % 75 % (31-73); PLATELET COUNT 108 x10^3/uL (140-400); RED BLOOD COUNT 3.32 x10^6/uL (3.50-5.40); RED CELL DISTRIBUTION WIDTH 15.7 % (11.5-14.5); WHITE BLOOD COUNT 10.6 x10^3/uL (4.0-11.0)
[2016-08-14 04:33] LABS: ALBUMIN 2.9 g/dL (3.4-5.0); CALCIUM 8.5 mg/dL (8.5-10.1); CREATININE 4.3 mg/dL (0.6-1.0); GFR 9.8
[2016-08-14] MEDS: HEPARIN PF for SUB-Q USE 5,000 UNIT/0.5 ML VIAL. SQ SCH ×3 (05:27→21:14)
[2016-08-14 07:00] VITALS: BP 118/58
--- NOTE | 2016-08-14 07:27 | RAD ---
Bilateral lower extremity venous ultrasound, 08/13/2016: History: Bilateral leg swelling, shortness of breath Duplex evaluation of the deep veins in the lower extremities was performed including grayscale, color-flow and spectral Doppler analysis. The femoral and popliteal veins demonstrate normal compressibility and normal responses to distal augmentation maneuvers. The calf veins were incompletely delineated in this large patient. No calf vein DVT is seen. There is subcutaneous edema in the lower legs. IMPRESSION: There is no sonographic evidence of deep vein thrombosis in either lower extremity.
[2016-08-14] MEDS: INSULIN ASPART 300 UNITS/3 ML INSULN.PEN SQ SCH ×4 (07:30→21:16)
[2016-08-14] MEDS ORDERED: POTASSIUM CHLORIDE 20 MEQ TABLET.ER. PO ONE (09:00)
[2016-08-14] MEDS: DILTIAZEM HCL 180 MG CAP.ER.24H PO SCH (09:02)
[2016-08-14] MEDS: ASPIRIN ENTERIC COATED 81 MG TABLET.DR. PO SCH (09:03)
[2016-08-14] MEDS: CYCLOBENZAPRINE 10 MG TABLET. PO SCH ×3 (09:03→21:02)
[2016-08-14] MEDS: SEVELAMER CARBONATE 2.4 GM PACKET. PO SCH ×3 (09:08→21:03)
[2016-08-14] MEDS ORDERED: IV NORMAL SALINE 1000ML BAG 1,000 ML IV PRN ×2 (09:19)
[2016-08-14] MEDS ORDERED: LABETALOL 20 MG/4 ML DISP.SYRIN. IVP PRN (09:30)
[2016-08-14] MEDS ORDERED: ACETAMINOPHEN 500 MG TABLET PO PRN (09:30)
[2016-08-14] MEDS ORDERED: DIPHENHYDRAMINE 50 MG/ML VIAL. IV PRN ×2 (09:30)
[2016-08-14] MEDS ORDERED: DIALYSIS PATIENT. MC PRN (09:30)
[2016-08-14] MEDS ORDERED: CLONIDINE HCL 0.1 MG TABLET PO PRN (09:30)
[2016-08-14] MEDS ORDERED: LIDOCAINE 1% PF 2 ML VIAL. ONE (09:40)
--- NOTE | 2016-08-14 10:42 | PDOC ---
Dialysis Progress Note Dialysis Note Dialysis Note Seen on Hemodialysis, tolerating treatment Okay Vitals on Hemodialysis: 104/57 75 afeb General Appearance: Awake: Alert Oriented x 3 Neck: No JVD or JVP Chest: CTA Carlitos, rare post rales with occ rhonchi Heart: S1 S2 Abdomen - Soft NTND Extremities - No Edema ESRD: Dialysis as below F 180 NR 3.0 Hrs 4 K 2.5 Ca 140 Na 30 HC03 Qb 350 + Qd 500+ Heparin 0 Units Uf 2-3 Kgs or to dry weight as tolerated May give 25-50 gms of 25% Albumin if needed to maintain Hemodynamic stability Treatment plan reviewed and discussed with drum puller Vitals Vital Signs Vital Signs Date Time Temp Pulse Resp B/P Pulse Ox O2 Delivery O2 Flow Rate FiO2 08/14/16 09:02 87 118/57 08/14/16 08:05 Nasal Cannula 2.0 08/14/16 07:00 97.5 20 98 97.5 Labs Last Labs Laboratory Tests Test 08/12/16 18:13 08/12/16 18:30 08/12/16 21:09 08/13/16 08:17 White Blood Count 12.1x10^3/uL (4.0-11.0) Red Blood Count 3.56x10^6/uL (3.50-5.40) Hemoglobin 12.4g/dL (12.0-15.5) Hematocrit 38.2% (36.0-47.0) Mean Corpuscular Volume 107fL (79-100) Mean Corpuscular Hemoglobin 35pg (25-35) Mean Corpuscular Hemoglobin Concent 32g/dL (31-37) Red Cell Distribution Width 16.0% (11.5-14.5) Platelet Count 111x10^3/uL (140-400) Neutrophils (%) (Auto) 74% (31-73) Lymphocytes (%) (Auto) 14% (24-48) Monocytes (%) (Auto) 8% (0-9) Eosinophils (%) (Auto) 4% (0-3) Basophils (%) (Auto) 1% (0-3) Neutrophils # (Auto) 9.0x10^3uL (1.8-7.7) Lymphocytes # (Auto) 1.6x10^3/uL (1.0-4.8) Monocytes # (Auto) 0.9x10^3/uL (0.0-1.1) Eosinophils # (Auto) 0.4x10^3/uL (0.0-0.7) Basophils # (Auto) 0.1x10^3/uL (0.0-0.2) Sodium Level 143mmol/L (136-145) Potassium Level 4.2mmol/L (3.5-5.1) Chloride Level 101mmol/L (98-107) Carbon Dioxide Level 25mmol/L (21-32) Anion Gap 17 (6-14) Blood Urea Nitrogen 61mg/dL (7-20) Creatinine 6.1mg/dL (0.6-1.0) Estimated GFR (Cockcroft-Gault) 6.6 BUN/Creatinine Ratio 10 (6-20) Glucose Level 294mg/dL (70-99) Calcium Level 8.4mg/dL (8.5-10.1) Magnesium Level 1.9mg/dL (1.8-2.4) Total Bilirubin 0.8mg/dL (0.2-1.0) Aspartate Amino Transf (AST/SGOT) 44U/L (15-37) Alanine Aminotransferase (ALT/SGPT) 79U/L (14-59) Alkaline Phosphatase 231U/L (46-116) Creatine Kinase 76U/L (26-192) Creatine Kinase MB (Mass) 2.0ng/mL (0.0-3.6) Creatine Kinase MB Relative Index 2.6% (0-4) Troponin I Quantitative < 0.017ng/mL (0.000-0.055) LF-Ecu-T-Type Natriuretic Peptide > 19526hg/mL (0-449) Total Protein 6.7g/dL (6.4-8.2) Albumin 3.4g/dL (3.4-5.0) Albumin/Globulin Ratio 1.0 (1.0-1.7) Glucose (Fingerstick) 247mg/dL (70-99) 244mg/dL (70-99) Test 08/13/16 12:17 08/13/16 13:50 08/13/16 18:06 08/13/16 20:37 Glucose (Fingerstick) 313mg/dL (70-99) 196mg/dL (70-99) 262mg/dL (70-99) White Blood Count 4.7x10^3/uL (4.0-11.0) Red Blood Count 3.22x10^6/uL (3.50-5.40) Hemoglobin 11.4g/dL (12.0-15.5) Hematocrit 34.1% (36.0-47.0) Mean Corpuscular Volume 106fL (79-100) Mean Corpuscular Hemoglobin 35pg (25-35) Mean Corpuscular Hemoglobin Concent 33g/dL (31-37) Red Cell Distribution Width 15.8% (11.5-14.5) Platelet Count 99x10^3/uL (140-400) Neutrophils (%) (Auto) 58% (31-73) Lymphocytes (%) (Auto) 31% (24-48) Monocytes (%) (Auto) 5% (0-9) Eosinophils (%) (Auto) 6% (0-3) Basophils (%) (Auto) 1% (0-3) Neutrophils # (Auto) 2.8x10^3uL (1.8-7.7) Lymphocytes # (Auto) 1.5x10^3/uL (1.0-4.8) Monocytes # (Auto) 0.2x10^3/uL (0.0-1.1) Eosinophils # (Auto) 0.3x10^3/uL (0.0-0.7) Basophils # (Auto) 0.0x10^3/uL (0.0-0.2) Sodium Level 142mmol/L (136-145) Potassium Level 3.4mmol/L (3.5-5.1) Chloride Level 101mmol/L (98-107) Carbon Dioxide Level 24mmol/L (21-32) Anion Gap 17 (6-14) Blood Urea Nitrogen 59mg/dL (7-20) Creatinine 5.9mg/dL (0.6-1.0) Estimated GFR (Cockcroft-Gault) 6.8 Glucose Level 284mg/dL (70-99) Calcium Level 8.0mg/dL (8.5-10.1) Test 08/14/16 03:48 08/14/16 07:56 08/14/16 08:15 08/14/16 09:11 White Blood Count 10.6x10^3/uL (4.0-11.0) Red Blood Count 3.32x10^6/uL (3.50-5.40) Hemoglobin 11.7g/dL (12.0-15.5) Hematocrit 35.0% (36.0-47.0) Mean Corpuscular Volume 106fL (79-100) Mean Corpuscular Hemoglobin 35pg (25-35) Mean Corpuscular Hemoglobin Concent 33g/dL (31-37) Red Cell Distribution Width 15.7% (11.5-14.5) Platelet Count 108x10^3/uL (140-400) Neutrophils (%) (Auto) 75% (31-73) Lymphocytes (%) (Auto) 12% (24-48) Monocytes (%) (Auto) 9% (0-9) Eosinophils (%) (Auto) 4% (0-3) Basophils (%) (Auto) 1% (0-3) Neutrophils # (Auto) 7.9x10^3uL (1.8-7.7) Lymphocytes # (Auto) 1.3x10^3/uL (1.0-4.8) Monocytes # (Auto) 0.9x10^3/uL (0.0-1.1) Eosinophils # (Auto) 0.4x10^3/uL (0.0-0.7) Basophils # (Auto) 0.1x10^3/uL (0.0-0.2) Sodium Level 143mmol/L (136-145) Potassium Level 3.0mmol/L (3.5-5.1) Chloride Level 102mmol/L (98-107) Carbon Dioxide Level 34mmol/L (21-32) Anion Gap 7 (6-14) Blood Urea Nitrogen 34mg/dL (7-20) Creatinine 4.3mg/dL (0.6-1.0) Estimated GFR (Cockcroft-Gault) 9.8 Glucose Level 67mg/dL (70-99) Calcium Level 8.5mg/dL (8.5-10.1) Phosphorus Level 5.0mg/dL (2.6-4.7) Magnesium Level 1.9mg/dL (1.8-2.4) Albumin 2.9g/dL (3.4-5.0) Glucose (Fingerstick) 43mg/dL (70-99) 52mg/dL (70-99) 122mg/dL (70-99) Laboratory Tests Test 08/13/16 12:17 08/13/16 13:50 08/13/16 18:06 08/13/16 20:37 Glucose (Fingerstick) 313mg/dL (70-99) 196mg/dL (70-99) 262mg/dL (70-99) White Blood Count 4.7x10^3/uL (4.0-11.0) Red Blood Count 3.22x10^6/uL (3.50-5.40) Hemoglobin 11.4g/dL (12.0-15.5) Hematocrit 34.1% (36.0-47.0) Mean Corpuscular Volume 106fL (79-100) Mean Corpuscular Hemoglobin 35pg (25-35) Mean Corpuscular Hemoglobin Concent 33g/dL (31-37) Red Cell Distribution Width 15.8% (11.5-14.5) Platelet Count 99x10^3/uL (140-400) Neutrophils (%) (Auto) 58% (31-73) Lymphocytes (%) (Auto) 31% (24-48) Monocytes (%) (Auto) 5% (0-9) Eosinophils (%) (Auto) 6% (0-3) Basophils (%) (Auto) 1% (0-3) Neutrophils # (Auto) 2.8x10^3uL (1.8-7.7) Lymphocytes # (Auto) 1.5x10^3/uL (1.0-4.8) Monocytes # (Auto) 0.2x10^3/uL (0.0-1.1) Eosinophils # (Auto) 0.3x10^3/uL (0.0-0.7) Basophils # (Auto) 0.0x10^3/uL (0.0-0.2) Sodium Level 142mmol/L (136-145) Potassium Level 3.4mmol/L (3.5-5.1) Chloride Level 101mmol/L (98-107) Carbon Dioxide Level 24mmol/L (21-32) Anion Gap 17 (6-14) Blood Urea Nitrogen 59mg/dL (7-20) Creatinine 5.9mg/dL (0.6-1.0) Estimated GFR (Cockcroft-Gault) 6.8 Glucose Level 284mg/dL (70-99) Calcium Level 8.0mg/dL (8.5-10.1) Test 08/14/16 03:48 08/14/16 07:56 08/14/16 08:15 08/14/16 09:11 White Blood Count 10.6x10^3/uL (4.0-11.0) Red Blood Count 3.32x10^6/uL (3.50-5.40) Hemoglobin 11.7g/dL (12.0-15.5) Hematocrit 35.0% (36.0-47.0) Mean Corpuscular Volume 106fL (79-100) Mean Corpuscular Hemoglobin 35pg (25-35) Mean Corpuscular Hemoglobin Concent 33g/dL (31-37) Red Cell Distribution Width 15.7% (11.5-14.5) Platelet Count 108x10^3/uL (140-400) Neutrophils (%) (Auto) 75% (31-73) Lymphocytes (%) (Auto) 12% (24-48) Monocytes (%) (Auto) 9% (0-9) Eosinophils (%) (Auto) 4% (0-3) Basophils (%) (Auto) 1% (0-3) Neutrophils # (Auto) 7.9x10^3uL (1.8-7.7) Lymphocytes # (Auto) 1.3x10^3/uL (1.0-4.8) Monocytes # (Auto) 0.9x10^3/uL (0.0-1.1) Eosinophils # (Auto) 0.4x10^3/uL (0.0-0.7) Basophils # (Auto) 0.1x10^3/uL (0.0-0.2) Sodium Level 143mmol/L (136-145) Potassium Level 3.0mmol/L (3.5-5.1) Chloride Level 102mmol/L (98-107) Carbon Dioxide Level 34mmol/L (21-32) Anion Gap 7 (6-14) Blood Urea Nitrogen 34mg/dL (7-20) Creatinine 4.3mg/dL (0.6-1.0) Estimated GFR (Cockcroft-Gault) 9.8 Glucose Level 67mg/dL (70-99) Calcium Level 8.5mg/dL (8.5-10.1) Phosphorus Level 5.0mg/dL (2.6-4.7) Magnesium Level 1.9mg/dL (1.8-2.4) Albumin 2.9g/dL (3.4-5.0) Glucose (Fingerstick) 43mg/dL (70-99) 52mg/dL (70-99) 122mg/dL (70-99) Assessment Assessment Problems Medical Problems: (1) Congestive heart failure Status: Acute (2) End stage renal disease Status: Acute (3) Fluid overload Status: Acute (4) Reactive airway disease Status: Acute (5) Uncontrolled diabetes mellitus Status: Acute Problems: Plan Plan of Care Problems Medical Problems: (1) Congestive heart failure Status: Acute (2) End stage renal disease Status: Acute (3) Fluid overload Status: Acute (4) Reactive airway disease Status: Acute (5) Uncontrolled diabetes mellitus Status: Acute CHAO MOY MD Aug 14, 2016 10:42
[2016-08-14] MEDS: ALBUMIN HUMAN 25% 200 ML IV PRN ×2 (10:53→11:37)
[2016-08-14] MEDS ORDERED: LIDOCAINE 1% PF 2 ML VIAL. INJ ONE (11:00)
--- NOTE | 2016-08-14 12:33 | PDOC ---
PROGRESS NOTES Chief Complaint Chief Complaint 1. bl feet edema 2/2 fluid overloaded 2. chronic severe systolic/diastolic CHF 3. ESRDon HD mwf 4. DM1 5. htn 6. hld 7. h/o CAD post CABG 2003 8. Obesity 9. moderate MR, TR. 10. recent bronchitis with cough 11. hypokalemia PLAN: fu with card, pulm, renal cont HD daily as per renal x4ds elevated bl feet, wound care cont home meds replete K decrease levemir ot 15u qhs, SSI dvt ppx ptot History of Present Illness History of Present Illness still cough bl feet edema better with HD, no weeping hypoglycemia Vitals Vitals Vital Signs Date Time Temp Pulse Resp B/P Pulse Ox O2 Delivery O2 Flow Rate FiO2 08/14/16 09:02 87 118/57 08/14/16 08:05 Nasal Cannula 2.0 08/14/16 07:00 97.5 20 98 97.5 Physical Exam General: Alert, Oriented X3, Cooperative, No acute distress Heart: Regular rate, Normal S1, Normal S2 Lungs: Crackles Abdomen: Normal bowel sounds, Soft, No tenderness Extremities: Other (2+ pitting edema lower extremities bilaterally; weeping bilaterally) Skin: Other (large patchy erythematous plaques on chest and lower extremities) Labs LABS Laboratory Tests Test 08/13/16 13:50 08/13/16 18:06 08/13/16 20:37 08/14/16 03:48 White Blood Count 4.7x10^3/uL (4.0-11.0) 10.6x10^3/uL (4.0-11.0) Red Blood Count 3.22x10^6/uL (3.50-5.40) 3.32x10^6/uL (3.50-5.40) Hemoglobin 11.4g/dL (12.0-15.5) 11.7g/dL (12.0-15.5) Hematocrit 34.1% (36.0-47.0) 35.0% (36.0-47.0) Mean Corpuscular Volume 106fL (79-100) 106fL (79-100) Mean Corpuscular Hemoglobin 35pg (25-35) 35pg (25-35) Mean Corpuscular Hemoglobin Concent 33g/dL (31-37) 33g/dL (31-37) Red Cell Distribution Width 15.8% (11.5-14.5) 15.7% (11.5-14.5) Platelet Count 99x10^3/uL (140-400) 108x10^3/uL (140-400) Neutrophils (%) (Auto) 58% (31-73) 75% (31-73) Lymphocytes (%) (Auto) 31% (24-48) 12% (24-48) Monocytes (%) (Auto) 5% (0-9) 9% (0-9) Eosinophils (%) (Auto) 6% (0-3) 4% (0-3) Basophils (%) (Auto) 1% (0-3) 1% (0-3) Neutrophils # (Auto) 2.8x10^3uL (1.8-7.7) 7.9x10^3uL (1.8-7.7) Lymphocytes # (Auto) 1.5x10^3/uL (1.0-4.8) 1.3x10^3/uL (1.0-4.8) Monocytes # (Auto) 0.2x10^3/uL (0.0-1.1) 0.9x10^3/uL (0.0-1.1) Eosinophils # (Auto) 0.3x10^3/uL (0.0-0.7) 0.4x10^3/uL (0.0-0.7) Basophils # (Auto) 0.0x10^3/uL (0.0-0.2) 0.1x10^3/uL (0.0-0.2) Sodium Level 142mmol/L (136-145) 143mmol/L (136-145) Potassium Level 3.4mmol/L (3.5-5.1) 3.0mmol/L (3.5-5.1) Chloride Level 101mmol/L (98-107) 102mmol/L (98-107) Carbon Dioxide Level 24mmol/L (21-32) 34mmol/L (21-32) Anion Gap 17 (6-14) 7 (6-14) Blood Urea Nitrogen 59mg/dL (7-20) 34mg/dL (7-20) Creatinine 5.9mg/dL (0.6-1.0) 4.3mg/dL (0.6-1.0) Estimated GFR (Cockcroft-Gault) 6.8 9.8 Glucose Level 284mg/dL (70-99) 67mg/dL (70-99) Calcium Level 8.0mg/dL (8.5-10.1) 8.5mg/dL (8.5-10.1) Glucose (Fingerstick) 196mg/dL (70-99) 262mg/dL (70-99) Phosphorus Level 5.0mg/dL (2.6-4.7) Magnesium Level 1.9mg/dL (1.8-2.4) Albumin 2.9g/dL (3.4-5.0) Test 08/14/16 07:56 08/14/16 08:15 08/14/16 09:11 08/14/16 11:29 Glucose (Fingerstick) 43mg/dL (70-99) 52mg/dL (70-99) 122mg/dL (70-99) 176mg/dL (70-99) Review of Systems Review of Systems no fever, chills, sob or chest pain Assessment and Plan Assessmemt and Plan Problems Medical Problems: (1) Congestive heart failure Status: Acute (2) End stage renal disease Status: Acute (3) Fluid overload Status: Acute (4) Reactive airway disease Status: Acute (5) Uncontrolled diabetes mellitus Status: Acute Problems: Comment Review of Relevant I have reviewed the following items smith (where applicable) has been applied. Labs Laboratory Tests Test 08/12/16 18:13 08/12/16 18:30 08/12/16 21:09 08/13/16 08:17 White Blood Count 12.1x10^3/uL (4.0-11.0) Red Blood Count 3.56x10^6/uL (3.50-5.40) Hemoglobin 12.4g/dL (12.0-15.5) Hematocrit 38.2% (36.0-47.0) Mean Corpuscular Volume 107fL (79-100) Mean Corpuscular Hemoglobin 35pg (25-35) Mean Corpuscular Hemoglobin Concent 32g/dL (31-37) Red Cell Distribution Width 16.0% (11.5-14.5) Platelet Count 111x10^3/uL (140-400) Neutrophils (%) (Auto) 74% (31-73) Lymphocytes (%) (Auto) 14% (24-48) Monocytes (%) (Auto) 8% (0-9) Eosinophils (%) (Auto) 4% (0-3) Basophils (%) (Auto) 1% (0-3) Neutrophils # (Auto) 9.0x10^3uL (1.8-7.7) Lymphocytes # (Auto) 1.6x10^3/uL (1.0-4.8) Monocytes # (Auto) 0.9x10^3/uL (0.0-1.1) Eosinophils # (Auto) 0.4x10^3/uL (0.0-0.7) Basophils # (Auto) 0.1x10^3/uL (0.0-0.2) Sodium Level 143mmol/L (136-145) Potassium Level 4.2mmol/L (3.5-5.1) Chloride Level 101mmol/L (98-107) Carbon Dioxide Level 25mmol/L (21-32) Anion Gap 17 (6-14) Blood Urea Nitrogen 61mg/dL (7-20) Creatinine 6.1mg/dL (0.6-1.0) Estimated GFR (Cockcroft-Gault) 6.6 BUN/Creatinine Ratio 10 (6-20) Glucose Level 294mg/dL (70-99) Calcium Level 8.4mg/dL (8.5-10.1) Magnesium Level 1.9mg/dL (1.8-2.4) Total Bilirubin 0.8mg/dL (0.2-1.0) Aspartate Amino Transf (AST/SGOT) 44U/L (15-37) Alanine Aminotransferase (ALT/SGPT) 79U/L (14-59) Alkaline Phosphatase 231U/L (46-116) Creatine Kinase 76U/L (26-192) Creatine Kinase MB (Mass) 2.0ng/mL (0.0-3.6) Creatine Kinase MB Relative Index 2.6% (0-4) Troponin I Quantitative < 0.017ng/mL (0.000-0.055) WM-Ysn-[id number]-Type Natriuretic Peptide > 35295cu/mL (0-449) Total Protein 6.7g/dL (6.4-8.2) Albumin 3.4g/dL (3.4-5.0) Albumin/Globulin Ratio 1.0 (1.0-1.7) Glucose (Fingerstick) 247mg/dL (70-99) 244mg/dL (70-99) Test 08/13/16 12:17 08/13/16 13:50 08/13/16 18:06 08/13/16 20:37 Glucose (Fingerstick) 313mg/dL (70-99) 196mg/dL (70-99) 262mg/dL (70-99) White Blood Count 4.7x10^3/uL (4.0-11.0) Red Blood Count 3.22x10^6/uL (3.50-5.40) Hemoglobin 11.4g/dL (12.0-15.5) Hematocrit 34.1% (36.0-47.0) Mean Corpuscular Volume 106fL (79-100) Mean Corpuscular Hemoglobin 35pg (25-35) Mean Corpuscular Hemoglobin Concent 33g/dL (31-37) Red Cell Distribution Width 15.8% (11.5-14.5) Platelet Count 99x10^3/uL (140-400) Neutrophils (%) (Auto) 58% (31-73) Lymphocytes (%) (Auto) 31% (24-48) Monocytes (%) (Auto) 5% (0-9) Eosinophils (%) (Auto) 6% (0-3) Basophils (%) (Auto) 1% (0-3) Neutrophils # (Auto) 2.8x10^3uL (1.8-7.7) Lymphocytes # (Auto) 1.5x10^3/uL (1.0-4.8) Monocytes # (Auto) 0.2x10^3/uL (0.0-1.1) Eosinophils # (Auto) 0.3x10^3/uL (0.0-0.7) Basophils # (Auto) 0.0x10^3/uL (0.0-0.2) Sodium Level 142mmol/L (136-145) Potassium Level 3.4mmol/L (3.5-5.1) Chloride Level 101mmol/L (98-107) Carbon Dioxide Level 24mmol/L (21-32) Anion Gap 17 (6-14) Blood Urea Nitrogen 59mg/dL (7-20) Creatinine 5.9mg/dL (0.6-1.0) Estimated GFR (Cockcroft-Gault) 6.8 Glucose Level 284mg/dL (70-99) Calcium Level 8.0mg/dL (8.5-10.1) Test 08/14/16 03:48 08/14/16 07:56 08/14/16 08:15 08/14/16 09:11 White Blood Count 10.6x10^3/uL (4.0-11.0) Red Blood Count 3.32x10^6/uL (3.50-5.40) Hemoglobin 11.7g/dL (12.0-15.5) Hematocrit 35.0% (36.0-47.0) Mean Corpuscular Volume 106fL (79-100) Mean Corpuscular Hemoglobin 35pg (25-35) Mean Corpuscular Hemoglobin Concent 33g/dL (31-37) Red Cell Distribution Width 15.7% (11.5-14.5) Platelet Count 108x10^3/uL (140-400) Neutrophils (%) (Auto) 75% (31-73) Lymphocytes (%) (Auto) 12% (24-48) Monocytes (%) (Auto) 9% (0-9) Eosinophils (%) (Auto) 4% (0-3) Basophils (%) (Auto) 1% (0-3) Neutrophils # (Auto) 7.9x10^3uL (1.8-7.7) Lymphocytes # (Auto) 1.3x10^3/uL (1.0-4.8) Monocytes # (Auto) 0.9x10^3/uL (0.0-1.1) Eosinophils # (Auto) 0.4x10^3/uL (0.0-0.7) Basophils # (Auto) 0.1x10^3/uL (0.0-0.2) Sodium Level 143mmol/L (136-145) Potassium Level 3.0mmol/L (3.5-5.1) Chloride Level 102mmol/L (98-107) Carbon Dioxide Level 34mmol/L (21-32) Anion Gap 7 (6-14) Blood Urea Nitrogen 34mg/dL (7-20) Creatinine 4.3mg/dL (0.6-1.0) Estimated GFR (Cockcroft-Gault) 9.8 Glucose Level 67mg/dL (70-99) Calcium Level 8.5mg/dL (8.5-10.1) Phosphorus Level 5.0mg/dL (2.6-4.7) Magnesium Level 1.9mg/dL (1.8-2.4) Albumin 2.9g/dL (3.4-5.0) Glucose (Fingerstick) 43mg/dL (70-99) 52mg/dL (70-99) 122mg/dL (70-99) Test 08/14/16 11:29 Glucose (Fingerstick) 176mg/dL (70-99) Laboratory Tests Test 08/13/16 13:50 08/13/16 18:06 08/13/16 20:37 08/14/16 03:48 White Blood Count 4.7x10^3/uL (4.0-11.0) 10.6x10^3/uL (4.0-11.0) Red Blood Count 3.22x10^6/uL (3.50-5.40) 3.32x10^6/uL (3.50-5.40) Hemoglobin 11.4g/dL (12.0-15.5) 11.7g/dL (12.0-15.5) Hematocrit 34.1% (36.0-47.0) 35.0% (36.0-47.0) Mean Corpuscular Volume 106fL (79-100) 106fL (79-100) Mean Corpuscular Hemoglobin 35pg (25-35) 35pg (25-35) Mean Corpuscular Hemoglobin Concent 33g/dL (31-37) 33g/dL (31-37) Red Cell Distribution Width 15.8% (11.5-14.5) 15.7% (11.5-14.5) Platelet Count 99x10^3/uL (140-400) 108x10^3/uL (140-400) Neutrophils (%) (Auto) 58% (31-73) 75% (31-73) Lymphocytes (%) (Auto) 31% (24-48) 12% (24-48) Monocytes (%) (Auto) 5% (0-9) 9% (0-9) Eosinophils (%) (Auto) 6% (0-3) 4% (0-3) Basophils (%) (Auto) 1% (0-3) 1% (0-3) Neutrophils # (Auto) 2.8x10^3uL (1.8-7.7) 7.9x10^3uL (1.8-7.7) Lymphocytes # (Auto) 1.5x10^3/uL (1.0-4.8) 1.3x10^3/uL (1.0-4.8) Monocytes # (Auto) 0.2x10^3/uL (0.0-1.1) 0.9x10^3/uL (0.0-1.1) Eosinophils # (Auto) 0.3x10^3/uL (0.0-0.7) 0.4x10^3/uL (0.0-0.7) Basophils # (Auto) 0.0x10^3/uL (0.0-0.2) 0.1x10^3/uL (0.0-0.2) Sodium Level 142mmol/L (136-145) 143mmol/L (136-145) Potassium Level 3.4mmol/L (3.5-5.1) 3.0mmol/L (3.5-5.1) Chloride Level 101mmol/L (98-107) 102mmol/L (98-107) Carbon Dioxide Level 24mmol/L (21-32) 34mmol/L (21-32) Anion Gap 17 (6-14) 7 (6-14) Blood Urea Nitrogen 59mg/dL (7-20) 34mg/dL (7-20) Creatinine 5.9mg/dL (0.6-1.0) 4.3mg/dL (0.6-1.0) Estimated GFR (Cockcroft-Gault) 6.8 9.8 Glucose Level 284mg/dL (70-99) 67mg/dL (70-99) Calcium Level 8.0mg/dL (8.5-10.1) 8.5mg/dL (8.5-10.1) Glucose (Fingerstick) 196mg/dL (70-99) 262mg/dL (70-99) Phosphorus Level 5.0mg/dL (2.6-4.7) Magnesium Level 1.9mg/dL (1.8-2.4) Albumin 2.9g/dL (3.4-5.0) Test 08/14/16 07:56 08/14/16 08:15 08/14/16 09:11 08/14/16 11:29 Glucose (Fingerstick) 43mg/dL (70-99) 52mg/dL (70-99) 122mg/dL (70-99) 176mg/dL (70-99) Medications Current Medications Albuterol/ Ipratropium (Duoneb) 3 ml 1X ONCE NEB Last administered on 18:29; Start 08/12/16 at 18:15; Stop 08/12/16 at 18:24; Status DC Ondansetron HCl (Zofran) 4 mg PRN Q8HRS PRN IV NAUSEA/VOMITING; Start 08/12/16 at 19:45; Stop 08/13/16 at 19:44; Status DC Fentanyl Citrate (Fentanyl 2ml Vial) 50 mcg PRN Q2HR PRN IV PAIN; Start at 19:45; Stop 08/13/16 at 19:44; Status DC Albuterol/ Ipratropium (Duoneb) 3 ml RTQID NEB Last administered on 08/13/16 19:34; Start 08/12/16 at 20:00; Stop 08/13/16 at 19:59; Status DC Allopurinol (Zyloprim) 100 mg DAILYWSUP PO Last administered on 08/13/16 18:19 ; Start 08/13/16 at 17:00 Aspirin (Ecotrin) 81 mg DAILY PO Last administered on 08/14/16 09:03; Start at 09:00 Cyclobenzaprine HCl (Flexeril) 10 mg TID PO Last administered on 08/14/16 09: 03; Start 08/13/16 at 10:00 Diltiazem HCl (Cardizem 24hr Cd) 180 mg DAILY PO Last administered on 09:02; Start 08/13/16 at 10:00 Vitamin B Complex/ Vitamin C (Bela-Roland) 1 tab DAILYBFRSUP PO Last administered on 08/13/16 18:19; Start 08/13/16 at 17:00 Furosemide (Lasix) 80 mg BID92 PO ; Start 08/13/16 at 14:00; Stop 08/13/16 at 14 :00; Status DC Hydralazine HCl (Apresoline) 25 mg QTUTHSASU PO ; Start 08/14/16 at 16:00 Latanoprost (Xalatan) 1 drop HS OU Last administered on 08/13/16 20:52; Start 08/13/16 at 21:00 Sevelamer Carbonate (Renvela) 2.4 gm TID PO Last administered on 08/14/16 09: 08; Start 08/13/16 at 10:00 Carvedilol (Coreg) 12.5 mg DAILYWLUN PO Last administered on 08/13/16 18:19; Start 08/13/16 at 12:00 Vitamin D (Vitamin D3) 2,000 unit HS PO Last administered on 08/13/16 20:52; Start 08/13/16 at 21:00 Non-Formulary Medication 15 mg TID PRN PRN PO COUGH; Start 08/13/16 at 09:45; Status UNV Non-Formulary Medication 25 unit HS SQ ; Start 08/13/16 at 21:00; Stop 08/13/16 at 21:00; Status DC Sodium Polystyrene Sulfonate (Kayexalate) 30 gm WEEKLY PO ; Start 08/20/16 at 09 :00 Insulin Detemir (Levemir) 20 units QHS SQ Last administered on 08/13/16 20:54 ; Start 08/13/16 at 21:00; Stop 08/14/16 at 08:36; Status DC Insulin Aspart (Novolog) 0-9 UNITS TIDWMEALS SQ ; Start 08/13/16 at 12:00; Stop 08/13/16 at 12:44; Status DC Dextrose (Dextrose 50%-Water Syringe) 12.5 gm PRN Q15MIN PRN IV SEE COMMENTS; Start 08/13/16 at 09:45 Acetaminophen (Tylenol) 650 mg PRN Q6HRS PRN PO FEVER; Start 08/13/16 at 09:45 Ondansetron HCl (Zofran) 4 mg PRN Q6HRS PRN IV NAUSEA/VOMITING; Start 08/13/16 at 09:45 Tramadol HCl (Ultram) 50 mg PRN Q6HRS PRN PO PAIN; Start 08/13/16 at 09:45 Guaifenesin/ Codeine Phosphate (Robitussin Ac) 5 ml PRN Q6HRS PRN PO COUGH Last administered on 08/14/16 02:33; Start 08/13/16 at 09:45 Insulin Aspart (Novolog) 0-9 UNITS QIDACHS SQ Last administered on 08/13/16 20 :55; Start 08/13/16 at 16:30 Heparin Sodium (Porcine) 5000 unit 5,000 unit Q8HRS SQ Last administered on 05:27; Start 08/13/16 at 14:00 Magnesium Sulfate/ Dextrose 50 ml @ 25 mls/hr PRN DAILY PRN IV for Mag < 1.7 on am labs; Start 08/13/16 at 13:15 Sodium Chloride 1,000 ml @ 1,000 mls/hr Q1H PRN IV hypotension; Start 08/13/16 at 13:11; Stop 08/13/16 at 19:10; Status DC Albumin Human (Albuminar) 200 ml @ 200 mls/hr 1X PRN PRN IV Hypotension; Start 08/13/16 at 13:15; Stop 08/13/16 at 19:14; Status DC Acetaminophen (Tylenol) 500 mg 1X PRN PRN PO MILD PAIN / TEMP; Start 08/13/16 at 13:15; Stop 08/14/16 at 13:14 Diphenhydramine HCl (Benadryl) 25 mg 1X PRN PRN IV ITCHING; Start 08/13/16 at 13:15; Stop 08/14/16 at 13:14 Diphenhydramine HCl (Benadryl) 25 mg 1X PRN PRN IV ITCHING; Start 08/13/16 at 13:15; Stop 08/14/16 at 13:14 Labetalol HCl (Normodyne) 10 mg PRN Q1HR PRN IVP SBP > 180; Start 08/13/16 at 13:15; Stop 08/14/16 at 13:14 Clonidine HCl (Catapres) 0.1 mg 1X PRN PRN PO SBP > 180; Start 08/13/16 at 13: 15; Stop 08/14/16 at 13:14 Info (PHARMACY MONITORING -- do not chart) 1 each PRN DAILY PRN MC SEE COMMENTS ; Start 08/13/16 at 13:15 Lidocaine HCl (Xylocaine-Mpf 1% Vial) 2 ml STK-MED ONCE .ROUTE ; Start 08/13/16 at 13:35; Stop 08/13/16 at 13:36; Status DC Insulin Detemir (Levemir) 15 units QHS SQ ; Start 08/14/16 at 21:00 Potassium Chloride 40 meq 40 meq 1X ONCE PO ; Start 08/14/16 at 09:00; Stop at 09:00; Status DC Sodium Chloride 1,000 ml @ 1,000 mls/hr Q1H PRN IV hypotension; Start 08/14/16 at 09:19; Stop 08/14/16 at 15:18 Albumin Human (Albuminar) 200 ml @ 200 mls/hr 1X PRN PRN IV Hypotension Last administered on 08/14/16t 11:37; Start 08/14/16 at 09:30; Stop 08/14/16 at 15:29 Acetaminophen (Tylenol) 500 mg 1X PRN PRN PO MILD PAIN / TEMP; Start 08/14/16 at 09:30; Stop 08/15/16 at 09:29 Diphenhydramine HCl (Benadryl) 25 mg 1X PRN PRN IV ITCHING; Start 08/14/16 at 09:30; Stop 08/15/16 at 09:29 Diphenhydramine HCl (Benadryl) 25 mg 1X PRN PRN IV ITCHING; Start 08/14/16 at 09:30; Stop 08/15/16 at 09:29 Labetalol HCl (Normodyne) 10 mg PRN Q1HR PRN IVP SBP > 180; Start 08/14/16 at 09:30; Stop 08/15/16 at 09:29 Clonidine HCl 0.1 mg 0.1 mg 1X PRN PRN PO SBP > 180; Start 08/14/16 at 09:30; Stop 08/15/16 at 09:29 Sodium Chloride (Iv Sodium Chloride 0.9% 1000ml Bag) 1,000 ml @ 400 mls/hr Q2H30M PRN IV PATENCY; Start 08/14/16 at 09:19; Stop 08/14/16 at 21:18 Info (PHARMACY MONITORING -- do not chart) 1 each PRN DAILY PRN MC SEE COMMENTS ; Start 08/14/16 at 09:30 Lidocaine HCl (Xylocaine-Mpf 1% Vial) 2 ml STK-MED ONCE .ROUTE ; Start 08/14/16 at 09:40; Stop 08/14/16 at 09:41; Status DC Lidocaine HCl (Xylocaine-Mpf 1% Vial) 2 ml 1X ONCE INJ Last administered on t 10:54; Start 08/14/16 at 11:00; Stop 08/14/16 at 11:01; Status DC Active Scripts Active Doxycycline Hyclate 100 Mg Tablet 100 Mg PO BID Robitussin (Dextromethorphan HBr) 15 Mg Capsule 15 Mg PO TID PRN PRN Reported Ondansetron Odt (Ondansetron) 4 Mg Tab.rapdis 1 Tab PO PRN Q8HRS PRN Sodium Polystyrene Sulfonate 15 Gm/60 Ml Oral.susp 30 Gm PO WEEKLY Novolog (Insulin Aspart) 100 Unit/1 Ml Cartridge 0 SQ sliding scale: 140 - 180 = 1 unit 181 - 240 = 2 units 241 - 300 = 3 units 301 - 400 = 4 units 401 - 500 = 5 units Lantus (Insulin Glargine,Hum.rec.anlog) 100 Unit/1 Ml Vial 25 Unit SQ HS Renvela (Sevelamer Carbonate) 2.4 Gm Powd.pack 2.4 Gm PO TID take with 20 oz cranberry juice Nephro-Roland Tablet (Folic Acid/Vitamin B Comp W-C) 0.8 Mg Tablet 1 Tab PO DAILYBFRSUP Vitamin D (Cholecalciferol (Vitamin D3)) 2,000 Unit Capsule 1 Cap PO HS Latanoprost 2.5 Ml Drops 1 Drop OP HS Hydralazine Hcl 25 Mg Tablet 1 Tab PO QTUTHSASU Allopurinol 100 Mg Tablet 1 Tab PO DAILYWSUP Cyclobenzaprine Hcl 10 Mg Tablet 1 Tab PO TID Diltiazem 24HR Cd (Diltiazem Hcl) 180 Mg Cap.er.24h 1 Cap PO DAILY Lasix (Furosemide) 80 Mg Tablet 1 Tab PO BID Carvedilol 25 Mg Tablet 12.5 Tab PO DAILYWLUN Aspir-Low (Aspirin) 81 Mg Tablet.dr 1 Tab PO DAILY Vitals/I & O Vital Sign - Last 24 Hours 08/13/16 08/13/16 08/13/16 08/13/16 17:00 18:19 18:19 19:15 Temp 97.9 97.8 97.9 97.8 Pulse 108 108 108 104 Resp 16 22 B/P 114/69 114/69 114/69 128/62 Pulse Ox 98 94 O2 Delivery Nasal Cannula Nasal Cannula O2 Flow Rate 3.0 3.0 08/13/16 08/13/16 08/13/16 08/14/16 19:38 20:00 22:55 03:05 Temp 97.7 97.6 97.7 97.6 Pulse 92 81 Resp 20 B/P 98/48 102/49 Pulse Ox 98 94 97 O2 Delivery Nasal Cannula Nasal Cannula Nasal Cannula Nasal Cannula O2 Flow Rate 2.0 2.0 3.0 3.0 08/14/16 08/14/16 08/14/16 07:00 08:05 09:02 Temp 97.5 97.5 Pulse 72 87 Resp 20 B/P 118/58 118/57 Pulse Ox 98 O2 Delivery Nasal Cannula Nasal Cannula O2 Flow Rate 3.0 2.0 Intake and Output 08/13/16 08/13/16 08/14/16 15:00 23:00 07:00 Intake Total 90 ml 90 ml 380 ml Output Total 1 ml Balance 89 ml 90 ml 380 ml KIM LAZAR MD Aug 14, 2016 12:33
--- NOTE | 2016-08-14 13:32 | PDOC ---
PROGRESS NOTES Subjective Subjective Patient in dialysis today. Feeling better. SOB much improved, lower extremity swelling slightly improved. Easier to move in and out of bed now. Objective Objective Vital Signs Date Time Temp Pulse Resp B/P Pulse Ox O2 Delivery O2 Flow Rate FiO2 08/14/16 09:02 87 118/57 08/14/16 08:05 Nasal Cannula 2.0 08/14/16 07:00 97.5 20 98 97.5 Intake and Output 08/14/16 07:00 Intake Total 560 ml Output Total 1 ml Balance 559 ml Intake Oral 560 ml Output Stool Total 1 ml # Bowel Movements 1 Physical Exam Abdomen: Soft Heart: Regular rate, Normal S1, Normal S2 Extremities: Other (3+ pitting edema bilaterally lower extremities) General: Alert, Oriented X3, Cooperative, No acute distress HEENT: Atraumatic, EOMI Lungs: Clear to auscultation, Normal air movement Neuro: Normal speech Psych/Mental Status: Mental status NL, Mood NL Skin: Other COMMENT itchy erythematous areas on chest and feet, open sores on feet Assessment Assessment Assessment/Plan Assessment: CHF CAD s/p CABG 2003 ESRD on MWF dialysis schedule HTN, controlled DM2 Plan Plan of Care Plan: 1. Patient appears very fluid overloaded on admission despite regular attendance at dialysis. Now much improved. -Dialysis removed 2.6 L yesterday and 3L today. Will have dialysis again tomorrow following normal MWF schedule -D/C lasix 2. No echocardiogram recommended at this time. Echocardiogram 11/2015 - 20% EF, moderate MR, moderate TR, mild MO, elevated PA pressure at 43 3. Woundcare consult for itchy plaques and open sores on feet. Thank you for the opportunity to provide care for this patient. Comment Review of Relevant I have reviewed the following items smith (where applicable) has been applied. Labs Laboratory Tests Test 08/12/16 18:13 08/12/16 18:30 08/12/16 21:09 08/13/16 08:17 White Blood Count 12.1x10^3/uL (4.0-11.0) Red Blood Count 3.56x10^6/uL (3.50-5.40) Hemoglobin 12.4g/dL (12.0-15.5) Hematocrit 38.2% (36.0-47.0) Mean Corpuscular Volume 107fL (79-100) Mean Corpuscular Hemoglobin 35pg (25-35) Mean Corpuscular Hemoglobin Concent 32g/dL (31-37) Red Cell Distribution Width 16.0% (11.5-14.5) Platelet Count 111x10^3/uL (140-400) Neutrophils (%) (Auto) 74% (31-73) Lymphocytes (%) (Auto) 14% (24-48) Monocytes (%) (Auto) 8% (0-9) Eosinophils (%) (Auto) 4% (0-3) Basophils (%) (Auto) 1% (0-3) Neutrophils # (Auto) 9.0x10^3uL (1.8-7.7) Lymphocytes # (Auto) 1.6x10^3/uL (1.0-4.8) Monocytes # (Auto) 0.9x10^3/uL (0.0-1.1) Eosinophils # (Auto) 0.4x10^3/uL (0.0-0.7) Basophils # (Auto) 0.1x10^3/uL (0.0-0.2) Sodium Level 143mmol/L (136-145) Potassium Level 4.2mmol/L (3.5-5.1) Chloride Level 101mmol/L (98-107) Carbon Dioxide Level 25mmol/L (21-32) Anion Gap 17 (6-14) Blood Urea Nitrogen 61mg/dL (7-20) Creatinine 6.1mg/dL (0.6-1.0) Estimated GFR (Cockcroft-Gault) 6.6 BUN/Creatinine Ratio 10 (6-20) Glucose Level 294mg/dL (70-99) Calcium Level 8.4mg/dL (8.5-10.1) Magnesium Level 1.9mg/dL (1.8-2.4) Total Bilirubin 0.8mg/dL (0.2-1.0) Aspartate Amino Transf (AST/SGOT) 44U/L (15-37) Alanine Aminotransferase (ALT/SGPT) 79U/L (14-59) Alkaline Phosphatase 231U/L (46-116) Creatine Kinase 76U/L (26-192) Creatine Kinase MB (Mass) 2.0ng/mL (0.0-3.6) Creatine Kinase MB Relative Index 2.6% (0-4) Troponin I Quantitative < 0.017ng/mL (0.000-0.055) MU-Eyi-C-Type Natriuretic Peptide > 21827hq/mL (0-449) Total Protein 6.7g/dL (6.4-8.2) Albumin 3.4g/dL (3.4-5.0) Albumin/Globulin Ratio 1.0 (1.0-1.7) Glucose (Fingerstick) 247mg/dL (70-99) 244mg/dL (70-99) Test 08/13/16 12:17 08/13/16 13:50 08/13/16 18:06 08/13/16 20:37 Glucose (Fingerstick) 313mg/dL (70-99) 196mg/dL (70-99) 262mg/dL (70-99) White Blood Count 4.7x10^3/uL (4.0-11.0) Red Blood Count 3.22x10^6/uL (3.50-5.40) Hemoglobin 11.4g/dL (12.0-15.5) Hematocrit 34.1% (36.0-47.0) Mean Corpuscular Volume 106fL (79-100) Mean Corpuscular Hemoglobin 35pg (25-35) Mean Corpuscular Hemoglobin Concent 33g/dL (31-37) Red Cell Distribution Width 15.8% (11.5-14.5) Platelet Count 99x10^3/uL (140-400) Neutrophils (%) (Auto) 58% (31-73) Lymphocytes (%) (Auto) 31% (24-48) Monocytes (%) (Auto) 5% (0-9) Eosinophils (%) (Auto) 6% (0-3) Basophils (%) (Auto) 1% (0-3) Neutrophils # (Auto) 2.8x10^3uL (1.8-7.7) Lymphocytes # (Auto) 1.5x10^3/uL (1.0-4.8) Monocytes # (Auto) 0.2x10^3/uL (0.0-1.1) Eosinophils # (Auto) 0.3x10^3/uL (0.0-0.7) Basophils # (Auto) 0.0x10^3/uL (0.0-0.2) Sodium Level 142mmol/L (136-145) Potassium Level 3.4mmol/L (3.5-5.1) Chloride Level 101mmol/L (98-107) Carbon Dioxide Level 24mmol/L (21-32) Anion Gap 17 (6-14) Blood Urea Nitrogen 59mg/dL (7-20) Creatinine 5.9mg/dL (0.6-1.0) Estimated GFR (Cockcroft-Gault) 6.8 Glucose Level 284mg/dL (70-99) Calcium Level 8.0mg/dL (8.5-10.1) Test 08/14/16 03:48 08/14/16 07:56 08/14/16 08:15 08/14/16 09:11 White Blood Count 10.6x10^3/uL (4.0-11.0) Red Blood Count 3.32x10^6/uL (3.50-5.40) Hemoglobin 11.7g/dL (12.0-15.5) Hematocrit 35.0% (36.0-47.0) Mean Corpuscular Volume 106fL (79-100) Mean Corpuscular Hemoglobin 35pg (25-35) Mean Corpuscular Hemoglobin Concent 33g/dL (31-37) Red Cell Distribution Width 15.7% (11.5-14.5) Platelet Count 108x10^3/uL (140-400) Neutrophils (%) (Auto) 75% (31-73) Lymphocytes (%) (Auto) 12% (24-48) Monocytes (%) (Auto) 9% (0-9) Eosinophils (%) (Auto) 4% (0-3) Basophils (%) (Auto) 1% (0-3) Neutrophils # (Auto) 7.9x10^3uL (1.8-7.7) Lymphocytes # (Auto) 1.3x10^3/uL (1.0-4.8) Monocytes # (Auto) 0.9x10^3/uL (0.0-1.1) Eosinophils # (Auto) 0.4x10^3/uL (0.0-0.7) Basophils # (Auto) 0.1x10^3/uL (0.0-0.2) Sodium Level 143mmol/L (136-145) Potassium Level 3.0mmol/L (3.5-5.1) Chloride Level 102mmol/L (98-107) Carbon Dioxide Level 34mmol/L (21-32) Anion Gap 7 (6-14) Blood Urea Nitrogen 34mg/dL (7-20) Creatinine 4.3mg/dL (0.6-1.0) Estimated GFR (Cockcroft-Gault) 9.8 Glucose Level 67mg/dL (70-99) Calcium Level 8.5mg/dL (8.5-10.1) Phosphorus Level 5.0mg/dL (2.6-4.7) Magnesium Level 1.9mg/dL (1.8-2.4) Albumin 2.9g/dL (3.4-5.0) Glucose (Fingerstick) 43mg/dL (70-99) 52mg/dL (70-99) 122mg/dL (70-99) Test 08/14/16 11:29 Glucose (Fingerstick) 176mg/dL (70-99) Laboratory Tests Test 08/13/16 13:50 08/13/16 18:06 08/13/16 20:37 08/14/16 03:48 White Blood Count 4.7x10^3/uL (4.0-11.0) 10.6x10^3/uL (4.0-11.0) Red Blood Count 3.22x10^6/uL (3.50-5.40) 3.32x10^6/uL (3.50-5.40) Hemoglobin 11.4g/dL (12.0-15.5) 11.7g/dL (12.0-15.5) Hematocrit 34.1% (36.0-47.0) 35.0% (36.0-47.0) Mean Corpuscular Volume 106fL (79-100) 106fL (79-100) Mean Corpuscular Hemoglobin 35pg (25-35) 35pg (25-35) Mean Corpuscular Hemoglobin Concent 33g/dL (31-37) 33g/dL (31-37) Red Cell Distribution Width 15.8% (11.5-14.5) 15.7% (11.5-14.5) Platelet Count 99x10^3/uL (140-400) 108x10^3/uL (140-400) Neutrophils (%) (Auto) 58% (31-73) 75% (31-73) Lymphocytes (%) (Auto) 31% (24-48) 12% (24-48) Monocytes (%) (Auto) 5% (0-9) 9% (0-9) Eosinophils (%) (Auto) 6% (0-3) 4% (0-3) Basophils (%) (Auto) 1% (0-3) 1% (0-3) Neutrophils # (Auto) 2.8x10^3uL (1.8-7.7) 7.9x10^3uL (1.8-7.7) Lymphocytes # (Auto) 1.5x10^3/uL (1.0-4.8) 1.3x10^3/uL (1.0-4.8) Monocytes # (Auto) 0.2x10^3/uL (0.0-1.1) 0.9x10^3/uL (0.0-1.1) Eosinophils # (Auto) 0.3x10^3/uL (0.0-0.7) 0.4x10^3/uL (0.0-0.7) Basophils # (Auto) 0.0x10^3/uL (0.0-0.2) 0.1x10^3/uL (0.0-0.2) Sodium Level 142mmol/L (136-145) 143mmol/L (136-145) Potassium Level 3.4mmol/L (3.5-5.1) 3.0mmol/L (3.5-5.1) Chloride Level 101mmol/L (98-107) 102mmol/L (98-107) Carbon Dioxide Level 24mmol/L (21-32) 34mmol/L (21-32) Anion Gap 17 (6-14) 7 (6-14) Blood Urea Nitrogen 59mg/dL (7-20) 34mg/dL (7-20) Creatinine 5.9mg/dL (0.6-1.0) 4.3mg/dL (0.6-1.0) Estimated GFR (Cockcroft-Gault) 6.8 9.8 Glucose Level 284mg/dL (70-99) 67mg/dL (70-99) Calcium Level 8.0mg/dL (8.5-10.1) 8.5mg/dL (8.5-10.1) Glucose (Fingerstick) 196mg/dL (70-99) 262mg/dL (70-99) Phosphorus Level 5.0mg/dL (2.6-4.7) Magnesium Level 1.9mg/dL (1.8-2.4) Albumin 2.9g/dL (3.4-5.0) Test 08/14/16 07:56 08/14/16 08:15 08/14/16 09:11 08/14/16 11:29 Glucose (Fingerstick) 43mg/dL (70-99) 52mg/dL (70-99) 122mg/dL (70-99) 176mg/dL (70-99) Medications Current Medications Albuterol/ Ipratropium (Duoneb) 3 ml 1X ONCE NEB Last administered on 18:29; Start 08/12/16 at 18:15; Stop 08/12/16 at 18:24; Status DC Ondansetron HCl (Zofran) 4 mg PRN Q8HRS PRN IV NAUSEA/VOMITING; Start 08/12/16 at 19:45; Stop 08/13/16 at 19:44; Status DC Fentanyl Citrate (Fentanyl 2ml Vial) 50 mcg PRN Q2HR PRN IV PAIN; Start at 19:45; Stop 08/13/16 at 19:44; Status DC Albuterol/ Ipratropium (Duoneb) 3 ml RTQID NEB Last administered on 08/13/16 19:34; Start 08/12/16 at 20:00; Stop 08/13/16 at 19:59; Status DC Allopurinol (Zyloprim) 100 mg DAILYWSUP PO Last administered on 08/13/16 18:19 ; Start 08/13/16 at 17:00 Aspirin (Ecotrin) 81 mg DAILY PO Last administered on 08/14/16 09:03; Start at 09:00 Cyclobenzaprine HCl (Flexeril) 10 mg TID PO Last administered on 08/14/16 09: 03; Start 08/13/16 at 10:00 Diltiazem HCl (Cardizem 24hr Cd) 180 mg DAILY PO Last administered on 09:02; Start 08/13/16 at 10:00 Vitamin B Complex/ Vitamin C (Bela-Roland) 1 tab DAILYBFRSUP PO Last administered on 08/13/16 18:19; Start 08/13/16 at 17:00 Furosemide (Lasix) 80 mg BID92 PO ; Start 08/13/16 at 14:00; Stop 08/13/16 at 14 :00; Status DC Hydralazine HCl (Apresoline) 25 mg QTUTHSASU PO ; Start 08/14/16 at 16:00 Latanoprost (Xalatan) 1 drop HS OU Last administered on 08/13/16 20:52; Start 08/13/16 at 21:00 Sevelamer Carbonate (Renvela) 2.4 gm TID PO Last administered on 08/14/16 09: 08; Start 08/13/16 at 10:00 Carvedilol (Coreg) 12.5 mg DAILYWLUN PO Last administered on 08/13/16 18:19; Start 08/13/16 at 12:00 Vitamin D (Vitamin D3) 2,000 unit HS PO Last administered on 08/13/16 20:52; Start 08/13/16 at 21:00 Non-Formulary Medication 15 mg TID PRN PRN PO COUGH; Start 08/13/16 at 09:45; Status UNV Non-Formulary Medication 25 unit HS SQ ; Start 08/13/16 at 21:00; Stop 08/13/16 at 21:00; Status DC Sodium Polystyrene Sulfonate (Kayexalate) 30 gm WEEKLY PO ; Start 08/20/16 at 09 :00 Insulin Detemir (Levemir) 20 units QHS SQ Last administered on 08/13/16 20:54 ; Start 08/13/16 at 21:00; Stop 08/14/16 at 08:36; Status DC Insulin Aspart (Novolog) 0-9 UNITS TIDWMEALS SQ ; Start 08/13/16 at 12:00; Stop 08/13/16 at 12:44; Status DC Dextrose (Dextrose 50%-Water Syringe) 12.5 gm PRN Q15MIN PRN IV SEE COMMENTS; Start 08/13/16 at 09:45 Acetaminophen (Tylenol) 650 mg PRN Q6HRS PRN PO FEVER; Start 08/13/16 at 09:45 Ondansetron HCl (Zofran) 4 mg PRN Q6HRS PRN IV NAUSEA/VOMITING; Start 08/13/16 at 09:45 Tramadol HCl (Ultram) 50 mg PRN Q6HRS PRN PO PAIN; Start 08/13/16 at 09:45 Guaifenesin/ Codeine Phosphate (Robitussin Ac) 5 ml PRN Q6HRS PRN PO COUGH Last administered on 08/14/16 02:33; Start 08/13/16 at 09:45 Insulin Aspart (Novolog) 0-9 UNITS QIDACHS SQ Last administered on 08/13/16 20 :55; Start 08/13/16 at 16:30 Heparin Sodium (Porcine) 5000 unit 5,000 unit Q8HRS SQ Last administered on 05:27; Start 08/13/16 at 14:00 Magnesium Sulfate/ Dextrose 50 ml @ 25 mls/hr PRN DAILY PRN IV for Mag < 1.7 on am labs; Start 08/13/16 at 13:15 Sodium Chloride 1,000 ml @ 1,000 mls/hr Q1H PRN IV hypotension; Start 08/13/16 at 13:11; Stop 08/13/16 at 19:10; Status DC Albumin Human (Albuminar) 200 ml @ 200 mls/hr 1X PRN PRN IV Hypotension; Start 08/13/16 at 13:15; Stop 08/13/16 at 19:14; Status DC Acetaminophen (Tylenol) 500 mg 1X PRN PRN PO MILD PAIN / TEMP; Start 08/13/16 at 13:15; Stop 08/14/16 at 13:14; Status DC Diphenhydramine HCl (Benadryl) 25 mg 1X PRN PRN IV ITCHING; Start 08/13/16 at 13:15; Stop 08/14/16 at 13:14; Status DC Diphenhydramine HCl (Benadryl) 25 mg 1X PRN PRN IV ITCHING; Start 08/13/16 at 13:15; Stop 08/14/16 at 13:14; Status DC Labetalol HCl (Normodyne) 10 mg PRN Q1HR PRN IVP SBP > 180; Start 08/13/16 at 13:15; Stop 08/14/16 at 13:14; Status DC Clonidine HCl (Catapres) 0.1 mg 1X PRN PRN PO SBP > 180; Start 08/13/16 at 13: 15; Stop 08/14/16 at 13:14; Status DC Info (PHARMACY MONITORING -- do not chart) 1 each PRN DAILY PRN MC SEE COMMENTS ; Start 08/13/16 at 13:15 Lidocaine HCl (Xylocaine-Mpf 1% Vial) 2 ml STK-MED ONCE .ROUTE ; Start 08/13/16 at 13:35; Stop 08/13/16 at 13:36; Status DC Insulin Detemir (Levemir) 15 units QHS SQ ; Start 08/14/16 at 21:00 Potassium Chloride 40 meq 40 meq 1X ONCE PO ; Start 08/14/16 at 09:00; Stop at 09:00; Status DC Sodium Chloride 1,000 ml @ 1,000 mls/hr Q1H PRN IV hypotension; Start 08/14/16 at 09:19; Stop 08/14/16 at 15:18 Albumin Human (Albuminar) 200 ml @ 200 mls/hr 1X PRN PRN IV Hypotension Last administered on 08/14/16t 11:37; Start 08/14/16 at 09:30; Stop 08/14/16 at 15:29 Acetaminophen (Tylenol) 500 mg 1X PRN PRN PO MILD PAIN / TEMP; Start 08/14/16 at 09:30; Stop 08/15/16 at 09:29 Diphenhydramine HCl (Benadryl) 25 mg 1X PRN PRN IV ITCHING; Start 08/14/16 at 09:30; Stop 08/15/16 at 09:29 Diphenhydramine HCl (Benadryl) 25 mg 1X PRN PRN IV ITCHING; Start 08/14/16 at 09:30; Stop 08/15/16 at 09:29 Labetalol HCl (Normodyne) 10 mg PRN Q1HR PRN IVP SBP > 180; Start 08/14/16 at 09:30; Stop 08/15/16 at 09:29 Clonidine HCl 0.1 mg 0.1 mg 1X PRN PRN PO SBP > 180; Start 08/14/16 at 09:30; Stop 08/15/16 at 09:29 Sodium Chloride (Iv Sodium Chloride 0.9% 1000ml Bag) 1,000 ml @ 400 mls/hr Q2H30M PRN IV PATENCY; Start 08/14/16 at 09:19; Stop 08/14/16 at 21:18 Info (PHARMACY MONITORING -- do not chart) 1 each PRN DAILY PRN MC SEE COMMENTS ; Start 08/14/16 at 09:30 Lidocaine HCl (Xylocaine-Mpf 1% Vial) 2 ml STK-MED ONCE .ROUTE ; Start 08/14/16 at 09:40; Stop 08/14/16 at 09:41; Status DC Lidocaine HCl (Xylocaine-Mpf 1% Vial) 2 ml 1X ONCE INJ Last administered on t 10:54; Start 08/14/16 at 11:00; Stop 08/14/16 at 11:01; Status DC Active Scripts Active Doxycycline Hyclate 100 Mg Tablet 100 Mg PO BID Robitussin (Dextromethorphan HBr) 15 Mg Capsule 15 Mg PO TID PRN PRN Reported Ondansetron Odt (Ondansetron) 4 Mg Tab.rapdis 1 Tab PO PRN Q8HRS PRN Sodium Polystyrene Sulfonate 15 Gm/60 Ml Oral.susp 30 Gm PO WEEKLY Novolog (Insulin Aspart) 100 Unit/1 Ml Cartridge 0 SQ sliding scale: 140 - 180 = 1 unit 181 - 240 = 2 units 241 - 300 = 3 units 301 - 400 = 4 units 401 - 500 = 5 units Lantus (Insulin Glargine,Hum.rec.anlog) 100 Unit/1 Ml Vial 25 Unit SQ HS Renvela (Sevelamer Carbonate) 2.4 Gm Powd.pack 2.4 Gm PO TID take with 20 oz cranberry juice Nephro-Roland Tablet (Folic Acid/Vitamin B Comp W-C) 0.8 Mg Tablet 1 Tab PO DAILYBFRSUP Vitamin D (Cholecalciferol (Vitamin D3)) 2,000 Unit Capsule 1 Cap PO HS Latanoprost 2.5 Ml Drops 1 Drop OP HS Hydralazine Hcl 25 Mg Tablet 1 Tab PO QTUTHSASU Allopurinol 100 Mg Tablet 1 Tab PO DAILYWSUP Cyclobenzaprine Hcl 10 Mg Tablet 1 Tab PO TID Diltiazem 24HR Cd (Diltiazem Hcl) 180 Mg Cap.er.24h 1 Cap PO DAILY Lasix (Furosemide) 80 Mg Tablet 1 Tab PO BID Carvedilol 25 Mg Tablet 12.5 Tab PO DAILYWLUN Aspir-Low (Aspirin) 81 Mg Tablet. 1 Tab PO DAILY Vitals/I & O Vital Sign - Last 24 Hours 08/13/16 08/13/16 08/13/16 08/13/16 17:00 18:19 18:19 19:15 Temp 97.9 97.8 97.9 97.8 Pulse 108 108 108 104 Resp 16 22 B/P 114/69 114/69 114/69 128/62 Pulse Ox 98 94 O2 Delivery Nasal Cannula Nasal Cannula O2 Flow Rate 3.0 3.0 08/13/16 08/13/16 08/13/16 08/14/16 19:38 20:00 22:55 03:05 Temp 97.7 97.6 97.7 97.6 Pulse 92 81 Resp 22 20 B/P 98/48 102/49 Pulse Ox 98 94 97 O2 Delivery Nasal Cannula Nasal Cannula Nasal Cannula Nasal Cannula O2 Flow Rate 2.0 2.0 3.0 3.0 08/14/16 08/14/16 08/14/16 07:00 08:05 09:02 Temp 97.5 97.5 Pulse 72 87 Resp 20 B/P 118/58 118/57 Pulse Ox 98 O2 Delivery Nasal Cannula Nasal Cannula O2 Flow Rate 3.0 2.0 Intake and Output 08/13/16 08/13/16 08/14/16 15:00 23:00 07:00 Intake Total 90 ml 90 ml 380 ml Output Total 1 ml Balance 89 ml 90 ml 380 ml ELIAZAR TORRE MD Aug 14, 2016 13:31
[2016-08-14] MEDS: CARVEDILOL 12.5 MG TABLET. PO SCH (14:17)
[2016-08-14 15:00] VITALS: BP 115/63
[2016-08-14] MEDS: FOLIC/VIT B COMP W-C (RENAL) TABLET. PO SCH (15:17)
[2016-08-14] MEDS: HYDRALAZINE 25 MG TABLET PO SCH (15:17)
[2016-08-14] MEDS: ALLOPURINOL 100 MG TABLET. PO SCH (15:17)
--- NOTE | 2016-08-14 16:05 | PDOC ---
PULMONARY PROGRESS NOTES Subjective less cough Vitals Vital Signs Date Time Temp Pulse Resp B/P Pulse Ox O2 Delivery O2 Flow Rate FiO2 08/14/16 15:17 115/63 08/14/16 15:00 97.4 95 18 98 Nasal Cannula 3.0 97.4 General: Alert, No acute distress Lungs: Other (ant rhonchi) Cardiovascular: S1, S2 Abdomen: Soft Neuro Exam: Alert Extremities: Other (1=edema) Skin: Warm Labs Laboratory Tests Test 08/12/16 18:13 08/12/16 18:30 08/12/16 21:09 08/13/16 08:17 White Blood Count 12.1x10^3/uL (4.0-11.0) Red Blood Count 3.56x10^6/uL (3.50-5.40) Hemoglobin 12.4g/dL (12.0-15.5) Hematocrit 38.2% (36.0-47.0) Mean Corpuscular Volume 107fL (79-100) Mean Corpuscular Hemoglobin 35pg (25-35) Mean Corpuscular Hemoglobin Concent 32g/dL (31-37) Red Cell Distribution Width 16.0% (11.5-14.5) Platelet Count 111x10^3/uL (140-400) Neutrophils (%) (Auto) 74% (31-73) Lymphocytes (%) (Auto) 14% (24-48) Monocytes (%) (Auto) 8% (0-9) Eosinophils (%) (Auto) 4% (0-3) Basophils (%) (Auto) 1% (0-3) Neutrophils # (Auto) 9.0x10^3uL (1.8-7.7) Lymphocytes # (Auto) 1.6x10^3/uL (1.0-4.8) Monocytes # (Auto) 0.9x10^3/uL (0.0-1.1) Eosinophils # (Auto) 0.4x10^3/uL (0.0-0.7) Basophils # (Auto) 0.1x10^3/uL (0.0-0.2) Sodium Level 143mmol/L (136-145) Potassium Level 4.2mmol/L (3.5-5.1) Chloride Level 101mmol/L (98-107) Carbon Dioxide Level 25mmol/L (21-32) Anion Gap 17 (6-14) Blood Urea Nitrogen 61mg/dL (7-20) Creatinine 6.1mg/dL (0.6-1.0) Estimated GFR (Cockcroft-Gault) 6.6 BUN/Creatinine Ratio 10 (6-20) Glucose Level 294mg/dL (70-99) Calcium Level 8.4mg/dL (8.5-10.1) Magnesium Level 1.9mg/dL (1.8-2.4) Total Bilirubin 0.8mg/dL (0.2-1.0) Aspartate Amino Transf (AST/SGOT) 44U/L (15-37) Alanine Aminotransferase (ALT/SGPT) 79U/L (14-59) Alkaline Phosphatase 231U/L (46-116) Creatine Kinase 76U/L (26-192) Creatine Kinase MB (Mass) 2.0ng/mL (0.0-3.6) Creatine Kinase MB Relative Index 2.6% (0-4) Troponin I Quantitative < 0.017ng/mL (0.000-0.055) CB-Dve-Q-Type Natriuretic Peptide > 58167cm/mL (0-449) Total Protein 6.7g/dL (6.4-8.2) Albumin 3.4g/dL (3.4-5.0) Albumin/Globulin Ratio 1.0 (1.0-1.7) Glucose (Fingerstick) 247mg/dL (70-99) 244mg/dL (70-99) Test 08/13/16 12:17 08/13/16 13:50 08/13/16 18:06 08/13/16 20:37 Glucose (Fingerstick) 313mg/dL (70-99) 196mg/dL (70-99) 262mg/dL (70-99) White Blood Count 4.7x10^3/uL (4.0-11.0) Red Blood Count 3.22x10^6/uL (3.50-5.40) Hemoglobin 11.4g/dL (12.0-15.5) Hematocrit 34.1% (36.0-47.0) Mean Corpuscular Volume 106fL (79-100) Mean Corpuscular Hemoglobin 35pg (25-35) Mean Corpuscular Hemoglobin Concent 33g/dL (31-37) Red Cell Distribution Width 15.8% (11.5-14.5) Platelet Count 99x10^3/uL (140-400) Neutrophils (%) (Auto) 58% (31-73) Lymphocytes (%) (Auto) 31% (24-48) Monocytes (%) (Auto) 5% (0-9) Eosinophils (%) (Auto) 6% (0-3) Basophils (%) (Auto) 1% (0-3) Neutrophils # (Auto) 2.8x10^3uL (1.8-7.7) Lymphocytes # (Auto) 1.5x10^3/uL (1.0-4.8) Monocytes # (Auto) 0.2x10^3/uL (0.0-1.1) Eosinophils # (Auto) 0.3x10^3/uL (0.0-0.7) Basophils # (Auto) 0.0x10^3/uL (0.0-0.2) Sodium Level 142mmol/L (136-145) Potassium Level 3.4mmol/L (3.5-5.1) Chloride Level 101mmol/L (98-107) Carbon Dioxide Level 24mmol/L (21-32) Anion Gap 17 (6-14) Blood Urea Nitrogen 59mg/dL (7-20) Creatinine 5.9mg/dL (0.6-1.0) Estimated GFR (Cockcroft-Gault) 6.8 Glucose Level 284mg/dL (70-99) Calcium Level 8.0mg/dL (8.5-10.1) Test 08/14/16 03:48 08/14/16 07:56 08/14/16 08:15 08/14/16 09:11 White Blood Count 10.6x10^3/uL (4.0-11.0) Red Blood Count 3.32x10^6/uL (3.50-5.40) Hemoglobin 11.7g/dL (12.0-15.5) Hematocrit 35.0% (36.0-47.0) Mean Corpuscular Volume 106fL (79-100) Mean Corpuscular Hemoglobin 35pg (25-35) Mean Corpuscular Hemoglobin Concent 33g/dL (31-37) Red Cell Distribution Width 15.7% (11.5-14.5) Platelet Count 108x10^3/uL (140-400) Neutrophils (%) (Auto) 75% (31-73) Lymphocytes (%) (Auto) 12% (24-48) Monocytes (%) (Auto) 9% (0-9) Eosinophils (%) (Auto) 4% (0-3) Basophils (%) (Auto) 1% (0-3) Neutrophils # (Auto) 7.9x10^3uL (1.8-7.7) Lymphocytes # (Auto) 1.3x10^3/uL (1.0-4.8) Monocytes # (Auto) 0.9x10^3/uL (0.0-1.1) Eosinophils # (Auto) 0.4x10^3/uL (0.0-0.7) Basophils # (Auto) 0.1x10^3/uL (0.0-0.2) Sodium Level 143mmol/L (136-145) Potassium Level 3.0mmol/L (3.5-5.1) Chloride Level 102mmol/L (98-107) Carbon Dioxide Level 34mmol/L (21-32) Anion Gap 7 (6-14) Blood Urea Nitrogen 34mg/dL (7-20) Creatinine 4.3mg/dL (0.6-1.0) Estimated GFR (Cockcroft-Gault) 9.8 Glucose Level 67mg/dL (70-99) Calcium Level 8.5mg/dL (8.5-10.1) Phosphorus Level 5.0mg/dL (2.6-4.7) Magnesium Level 1.9mg/dL (1.8-2.4) Albumin 2.9g/dL (3.4-5.0) Glucose (Fingerstick) 43mg/dL (70-99) 52mg/dL (70-99) 122mg/dL (70-99) Test 08/14/16 11:29 08/14/16 14:15 Glucose (Fingerstick) 176mg/dL (70-99) 96mg/dL (70-99) Laboratory Tests Test 08/13/16 18:06 08/13/16 20:37 08/14/16 03:48 08/14/16 07:56 Glucose (Fingerstick) 196mg/dL (70-99) 262mg/dL (70-99) 43mg/dL (70-99) White Blood Count 10.6x10^3/uL (4.0-11.0) Red Blood Count 3.32x10^6/uL (3.50-5.40) Hemoglobin 11.7g/dL (12.0-15.5) Hematocrit 35.0% (36.0-47.0) Mean Corpuscular Volume 106fL (79-100) Mean Corpuscular Hemoglobin 35pg (25-35) Mean Corpuscular Hemoglobin Concent 33g/dL (31-37) Red Cell Distribution Width 15.7% (11.5-14.5) Platelet Count 108x10^3/uL (140-400) Neutrophils (%) (Auto) 75% (31-73) Lymphocytes (%) (Auto) 12% (24-48) Monocytes (%) (Auto) 9% (0-9) Eosinophils (%) (Auto) 4% (0-3) Basophils (%) (Auto) 1% (0-3) Neutrophils # (Auto) 7.9x10^3uL (1.8-7.7) Lymphocytes # (Auto) 1.3x10^3/uL (1.0-4.8) Monocytes # (Auto) 0.9x10^3/uL (0.0-1.1) Eosinophils # (Auto) 0.4x10^3/uL (0.0-0.7) Basophils # (Auto) 0.1x10^3/uL (0.0-0.2) Sodium Level 143mmol/L (136-145) Potassium Level 3.0mmol/L (3.5-5.1) Chloride Level 102mmol/L (98-107) Carbon Dioxide Level 34mmol/L (21-32) Anion Gap 7 (6-14) Blood Urea Nitrogen 34mg/dL (7-20) Creatinine 4.3mg/dL (0.6-1.0) Estimated GFR (Cockcroft-Gault) 9.8 Glucose Level 67mg/dL (70-99) Calcium Level 8.5mg/dL (8.5-10.1) Phosphorus Level 5.0mg/dL (2.6-4.7) Magnesium Level 1.9mg/dL (1.8-2.4) Albumin 2.9g/dL (3.4-5.0) Test 08/14/16 08:15 08/14/16 09:11 08/14/16 11:29 08/14/16 14:15 Glucose (Fingerstick) 52mg/dL (70-99) 122mg/dL (70-99) 176mg/dL (70-99) 96mg/dL (70-99) Medications Active Scripts Medications Dose Route/Sig Days Date Category Dose Instructions Doxycycline Hyclate 100 Mg Tablet 100 Mg PO BID 08/07/16 Rx Robitussin (Dextromethorphan HBr) 15 Mg Capsule 15 Mg PO TID PRN PRN 08/07/16 Rx Ondansetron Odt (Ondansetron) 4 Mg Tab.rapdis 1 Tab PO PRN Q8HRS PRN 08/05/16 Reported Sodium Polystyrene Sulfonate 15 Gm/60 Ml Oral.susp 30 Gm PO WEEKLY 08/05/16 Reported Novolog (Insulin Aspart) 100 Unit/1 Ml Cartridge 0 SQ 11/26/15 Reported sliding scale: 140 - 180 = 1 unit 181 - 240 = 2 units 241 - 300 = 3 units 301 - 400 = 4 units 401 - 500 = 5 units Lantus (Insulin Glargine,Hum.rec.anlog) 100 Unit/1 Ml Vial 25 Unit SQ HS 11/26/15 Reported Renvela (Sevelamer Carbonate) 2.4 Gm Powd.pack 2.4 Gm PO TID 11/26/15 Reported take with 20 oz cranberry juice Nephro-Roland Tablet (Folic Acid/Vitamin B Comp W-C) 0.8 Mg Tablet 1 Tab PO DAILYBFRSUP 11/26/15 Reported Vitamin D (Cholecalciferol (Vitamin D3)) 2,000 Unit Capsule 1 Cap PO HS 11/26/15 Reported Latanoprost 2.5 Ml Drops 1 Drop OP HS 11/26/15 Reported Hydralazine Hcl 25 Mg Tablet 1 Tab PO QTUTHSASU 11/26/15 Reported Allopurinol 100 Mg Tablet 1 Tab PO DAILYWSUP 11/26/15 Reported Cyclobenzaprine Hcl 10 Mg Tablet 1 Tab PO TID 11/26/15 Reported Diltiazem 24HR Cd (Diltiazem Hcl) 180 Mg Cap.er.24h 1 Cap PO DAILY 11/26/15 Reported Lasix (Furosemide) 80 Mg Tablet 1 Tab PO BID 11/26/15 Reported Carvedilol 25 Mg Tablet 12.5 Tab PO DAILYWLUN 11/26/15 Reported Aspir-Low (Aspirin) 81 Mg Tablet.dr 1 Tab PO DAILY 11/26/15 Reported Impression . 1. Paroxysmal coughing spells. The patient was admitted back on 08/06/2016. At that time, it was felt to be due to viral tracheobronchitis. At this juncture, I think it is multifactorial in nature . Possible bacterial bronchitis. possibly silent aspiration. No evidence of reflux or postnasal drainage. I reviewed her medication list, I do not see any medications that would be the culprit. No obvious CHF 2. Acute on chronic heart failure.EF 25% 3. Abnormal x-ray. 4. Bronchospasm, Plan . 1. Continue negative fluid balance. 2. Consult Speech. 3. add steroid Nebs 4. Follow clinical course and make further recommendations. 5. Antibiotic 6. Mucolytic GIAN SHAFFER MD Aug 14, 2016 16:05
--- NOTE | 2016-08-14 16:28 | CARD ---
APPROVED REPORT EXAM: Two-dimensional and M-mode echocardiogram with Doppler and color Doppler. Other Information Quality : Good INDICATION Dyspnea Congestive Heart Failure 2D DIMENSIONS RVDd3.3 (2.9-3.5cm)Left Atrium(2D)4.4 (1.6-4.0cm) IVSd1.1 (0.7-1.1cm)Aortic Root(2D)3.1 (2.0-3.7cm) LVDd5.0 (3.9-5.9cm)LVOT Diameter2.1 (1.8-2.4cm) PWd1.3 (0.7-1.1cm)LVDs4.5 (2.5-4.0cm) FS (%) 10.6 %SV27.5 ml LVEF(%)25.0 (>50%) Aortic Valve AoV Peak Manav.152.8cm/sAoV VTI27.6cm AO Peak GR.9.3mmHgLVOT Peak Manav.106.6cm/s LVOT VTI 19.00cmAO Mean GR.5mmHg SARAH (VMAX)2.98yi9GCX (VTI)2.45cm2 Tricuspid Valve TR P. Huwbdmyy101ea/sRAP [id number] TR Peak Gr.24ltDeQXTE33wmFl Pulmonary Vein S1 Wjamqvcc15.7cm/sD2 Cngbesni97.0cm/s LEFT VENTRICLE The left ventricle is normal size. There is mild concentric left ventricular hypertrophy. The Ejectio n Fraction is 25%. There is global hypokinesis of the left ventricle. Septal motion consistent with c onduction abnormality. RIGHT VENTRICLE The right ventricle is mildly hypertrophic The right ventricular systolic function is normal. ATRIA The left atrium is mildly dilated. The right atrium is mildly dilated. The interatrial septum is inta ct with no evidence for an atrial septal defect or patent foramen ovale as noted on 2-D or Doppler im aging. AORTIC VALVE The aortic valve is calcified but opens well. Doppler and Color Flow revealed no significant aortic r egurgitation. There is no significant aortic valvular stenosis. MITRAL VALVE The mitral valve is normal in structure There is no evidence of mitral valve prolapse. There is no mi tral valve stenosis. Doppler and Color-flow revealed mild to moderate mitral regurgitation. TRICUSPID VALVE The tricuspid valve is normal in structure Doppler and Color Flow revealed moderate to severe tricusp id regurgitation. There is moderate-severe pulmonary hypertension. The PA pressure was estimated at 5 3 mmHg. There is no tricuspid valve stenosis. PULMONIC VALVE The pulmonary valve is normal in structure Doppler and Color Flow revealed mild pulmonic valvular reg urgitation. There is no pulmonic valvular stenosis. GREAT VESSELS The aortic root is normal in size. The ascending aorta is normal in size. The IVC is dilated and jake apses <50% with inspiration. PERICARDIAL EFFUSION There is no evidence of significant pericardial effusion. Critical Notification Critical Value: No <Conclusion> The Ejection Fraction is 25%. There is global hypokinesis of the left ventricle. Septal motion consistent with conduction abnormality. There is mild concentric left ventricular hypertrophy. The right ventricle is mildly hypertrophic The left atrium is mildly dilated. The right atrium is mildly dilated. The aortic valve is calcified but opens well. Doppler and Color-flow revealed mild to moderate mitral regurgitation. Doppler and Color Flow revealed moderate to severe tricuspid regurgitation. There is moderate-severe pulmonary hypertension. The PA pressure was estimated at 53 mmHg. Doppler and Color Flow revealed mild pulmonic valvular regurgitation. There is no evidence of significant pericardial effusion.
[2016-08-14] MEDS: CEFTRIAXONE SODIUM 1 GM in IV NORMAL SALINE 50ML 50 ML IV SCH (16:47)
[2016-08-14] MEDS: IPRATRPIUM/ALBUTEROL 0.5/2.5MG 3 ML NEBU. NEB SCH (18:07)
[2016-08-14] MEDS: BUDESONIDE 0.5 MG/2 ML NEBU. NEB SCH (18:07)
[2016-08-14 19:15] VITALS: BP 98/55
[2016-08-14] MEDS: LATANOPROST 0.005% OPHTH SOLUTION 2.5ML BOTTLE. OU SCH (21:01)
[2016-08-14] MEDS: CHOLECALCIFEROL (VITAMIN D3) 1,000 UNIT TABLET PO SCH (21:02)
[2016-08-14] MEDS: GUAIFENESIN ER 600 MG TABLET.ER PO SCH (21:02)
[2016-08-14] MEDS: INSULIN DETEMIR 300 UNITS/3 ML INSULN.PEN. SQ SCH (21:15)
[2016-08-14 23:00] VITALS: BP 101/50
[2016-08-15 03:05] VITALS: BP 104/70
[2016-08-15] MEDS: HEPARIN PF for SUB-Q USE 5,000 UNIT/0.5 ML VIAL. SQ SCH ×3 (06:11→21:21)
[2016-08-15] MEDS: INSULIN ASPART 300 UNITS/3 ML INSULN.PEN SQ SCH ×4 (07:30→20:59)
[2016-08-15] MEDS: BUDESONIDE 0.5 MG/2 ML NEBU. NEB SCH ×2 (07:32→19:57)
[2016-08-15] MEDS: IPRATRPIUM/ALBUTEROL 0.5/2.5MG 3 ML NEBU. NEB SCH ×4 (07:32→19:57)
[2016-08-15] MEDS ORDERED: IV NORMAL SALINE 1000ML BAG 1,000 ML IV PRN ×2 (07:34)
[2016-08-15] MEDS ORDERED: LIDOCAINE 1% PF 2 ML VIAL. ONE (07:37)
[2016-08-15] MEDS ORDERED: CLONIDINE HCL 0.1 MG TABLET PO PRN (07:45)
[2016-08-15] MEDS ORDERED: DIPHENHYDRAMINE 50 MG/ML VIAL. IV PRN ×2 (07:45)
[2016-08-15] MEDS ORDERED: LABETALOL 20 MG/4 ML DISP.SYRIN. IVP PRN (07:45)
[2016-08-15] MEDS ORDERED: ALBUMIN HUMAN 25% 200 ML IV PRN (07:45)
[2016-08-15] MEDS ORDERED: ACETAMINOPHEN 500 MG TABLET PO PRN (07:45)
[2016-08-15] MEDS ORDERED: DIALYSIS PATIENT. MC PRN (07:45)
[2016-08-15] MEDS ORDERED: LIDOCAINE 1% PF 2 ML VIAL. INJ ONE (08:30)
[2016-08-15] MEDS: SEVELAMER CARBONATE 2.4 GM PACKET. PO SCH ×3 (09:00→20:53)
[2016-08-15] MEDS: CYCLOBENZAPRINE 10 MG TABLET. PO SCH ×3 (09:00→20:53)
--- NOTE | 2016-08-15 09:49 | PDOC ---
Dialysis Progress Note Dialysis Note Dialysis Note Seen on Hemodialysis, tolerating treatment Okay Vitals on Hemodialysis: 116/56 88 afeb General Appearance: Awake: Alert Oriented x 3 Neck: No JVD or JVP Chest: CTA Carlitos, rare post rales with occ rhonchi Heart: S1 S2 Abdomen - Soft NTND Extremities - No Edema ESRD: Dialysis as below F 180 NR 3.0 Hrs 3 K 2.5 Ca 140 Na 30 HC03 Qb 350 + Qd 500+ Heparin 0 Units Uf 2-3 Kgs or to dry weight as tolerated May give 25-50 gms of 25% Albumin if needed to maintain Hemodynamic stability Treatment plan reviewed and discussed with special delivery messenger Vitals Vital Signs Vital Signs Date Time Temp Pulse Resp B/P Pulse Ox O2 Delivery O2 Flow Rate FiO2 08/15/16 07:33 95 Nasal Cannula 2.0 08/15/16 03:05 98.0 93 18 104/70 98.0 Labs Last Labs Laboratory Tests Test 08/13/16 12:17 08/13/16 13:50 08/13/16 18:06 08/13/16 20:37 Glucose (Fingerstick) 313mg/dL (70-99) 196mg/dL (70-99) 262mg/dL (70-99) White Blood Count 4.7x10^3/uL (4.0-11.0) Red Blood Count 3.22x10^6/uL (3.50-5.40) Hemoglobin 11.4g/dL (12.0-15.5) Hematocrit 34.1% (36.0-47.0) Mean Corpuscular Volume 106fL (79-100) Mean Corpuscular Hemoglobin 35pg (25-35) Mean Corpuscular Hemoglobin Concent 33g/dL (31-37) Red Cell Distribution Width 15.8% (11.5-14.5) Platelet Count 99x10^3/uL (140-400) Neutrophils (%) (Auto) 58% (31-73) Lymphocytes (%) (Auto) 31% (24-48) Monocytes (%) (Auto) 5% (0-9) Eosinophils (%) (Auto) 6% (0-3) Basophils (%) (Auto) 1% (0-3) Neutrophils # (Auto) 2.8x10^3uL (1.8-7.7) Lymphocytes # (Auto) 1.5x10^3/uL (1.0-4.8) Monocytes # (Auto) 0.2x10^3/uL (0.0-1.1) Eosinophils # (Auto) 0.3x10^3/uL (0.0-0.7) Basophils # (Auto) 0.0x10^3/uL (0.0-0.2) Sodium Level 142mmol/L (136-145) Potassium Level 3.4mmol/L (3.5-5.1) Chloride Level 101mmol/L (98-107) Carbon Dioxide Level 24mmol/L (21-32) Anion Gap 17 (6-14) Blood Urea Nitrogen 59mg/dL (7-20) Creatinine 5.9mg/dL (0.6-1.0) Estimated GFR (Cockcroft-Gault) 6.8 Glucose Level 284mg/dL (70-99) Calcium Level 8.0mg/dL (8.5-10.1) Test 08/14/16 03:48 08/14/16 07:56 08/14/16 08:15 08/14/16 09:11 White Blood Count 10.6x10^3/uL (4.0-11.0) Red Blood Count 3.32x10^6/uL (3.50-5.40) Hemoglobin 11.7g/dL (12.0-15.5) Hematocrit 35.0% (36.0-47.0) Mean Corpuscular Volume 106fL (79-100) Mean Corpuscular Hemoglobin 35pg (25-35) Mean Corpuscular Hemoglobin Concent 33g/dL (31-37) Red Cell Distribution Width 15.7% (11.5-14.5) Platelet Count 108x10^3/uL (140-400) Neutrophils (%) (Auto) 75% (31-73) Lymphocytes (%) (Auto) 12% (24-48) Monocytes (%) (Auto) 9% (0-9) Eosinophils (%) (Auto) 4% (0-3) Basophils (%) (Auto) 1% (0-3) Neutrophils # (Auto) 7.9x10^3uL (1.8-7.7) Lymphocytes # (Auto) 1.3x10^3/uL (1.0-4.8) Monocytes # (Auto) 0.9x10^3/uL (0.0-1.1) Eosinophils # (Auto) 0.4x10^3/uL (0.0-0.7) Basophils # (Auto) 0.1x10^3/uL (0.0-0.2) Sodium Level 143mmol/L (136-145) Potassium Level 3.0mmol/L (3.5-5.1) Chloride Level 102mmol/L (98-107) Carbon Dioxide Level 34mmol/L (21-32) Anion Gap 7 (6-14) Blood Urea Nitrogen 34mg/dL (7-20) Creatinine 4.3mg/dL (0.6-1.0) Estimated GFR (Cockcroft-Gault) 9.8 Glucose Level 67mg/dL (70-99) Calcium Level 8.5mg/dL (8.5-10.1) Phosphorus Level 5.0mg/dL (2.6-4.7) Magnesium Level 1.9mg/dL (1.8-2.4) Albumin 2.9g/dL (3.4-5.0) Glucose (Fingerstick) 43mg/dL (70-99) 52mg/dL (70-99) 122mg/dL (70-99) Test 08/14/16 11:29 08/14/16 14:15 08/14/16 17:06 08/14/16 20:37 Glucose (Fingerstick) 176mg/dL (70-99) 96mg/dL (70-99) 193mg/dL (70-99) 189mg/dL (70-99) Laboratory Tests Test 08/14/16 11:29 08/14/16 14:15 08/14/16 17:06 08/14/16 20:37 Glucose (Fingerstick) 176mg/dL (70-99) 96mg/dL (70-99) 193mg/dL (70-99) 189mg/dL (70-99) Assessment Assessment Problems Medical Problems: (1) Congestive heart failure Status: Acute (2) End stage renal disease Status: Acute (3) Fluid overload Status: Acute (4) Reactive airway disease Status: Acute (5) Uncontrolled diabetes mellitus Status: Acute Problems: Plan Plan of Care Problems Medical Problems: (1) Congestive heart failure Status: Acute (2) End stage renal disease Status: Acute (3) Fluid overload Status: Acute (4) Reactive airway disease Status: Acute (5) Uncontrolled diabetes mellitus Status: Acute CHAO MOY MD Aug 15, 2016 09:49
[2016-08-15] MEDS ORDERED: BARIUM SULFATE 40% (APPLE) 148 GM PWD. PO ONE (12:15)
[2016-08-15 12:21] VITALS: BP 110/71
--- NOTE | 2016-08-15 12:33 | PDOC ---
PROGRESS NOTES Chief Complaint Chief Complaint 1. bl feet edema 2/2 fluid overloaded 2. chronic severe systolic/diastolic CHF 3. ESRDon HD mwf 4. DM1 5. htn 6. hld 7. h/o CAD post CABG 2003 8. Obesity 9. moderate MR, TR. 10. recent bronchitis with cough 11. hypokalemia PLAN: fu with card, pulm, renal cont HD daily as per renal x4ds elevated bl feet, wound care ceftriaxone as per pulm cont home meds replete K decrease levemir ot 15u qhs, SSI dvt ppx ptot hope dc tmr History of Present Illness History of Present Illness still cough bl feet edema better with HD, no weeping hypoglycemia Vitals Vitals Vital Signs Date Time Temp Pulse Resp B/P Pulse Ox O2 Delivery O2 Flow Rate FiO2 08/15/16 12:21 97.6 79 18 110/71 98 Nasal Cannula 3.0 97.6 Physical Exam General: Alert, Oriented X3, Cooperative, No acute distress Heart: Regular rate, Normal S1, Normal S2 Lungs: Other (ant rhonchi) Abdomen: Soft Extremities: Other (3+ pitting edema bilaterally lower extremities) Skin: Other Labs LABS Laboratory Tests Test 08/14/16 14:15 08/14/16 17:06 08/14/16 20:37 08/15/16 10:44 Glucose (Fingerstick) 96mg/dL (70-99) 193mg/dL (70-99) 189mg/dL (70-99) 88mg/dL (70-99) Test 08/15/16 11:51 Glucose (Fingerstick) 73mg/dL (70-99) Review of Systems Review of Systems no fever, chills, sob or chest pain Assessment and Plan Assessmemt and Plan Problems Medical Problems: (1) Congestive heart failure Status: Acute (2) End stage renal disease Status: Acute (3) Fluid overload Status: Acute (4) Reactive airway disease Status: Acute (5) Uncontrolled diabetes mellitus Status: Acute Problems: Comment Review of Relevant I have reviewed the following items smith (where applicable) has been applied. Labs Laboratory Tests Test 08/13/16 13:50 08/13/16 18:06 08/13/16 20:37 08/14/16 03:48 White Blood Count 4.7x10^3/uL (4.0-11.0) 10.6x10^3/uL (4.0-11.0) Red Blood Count 3.22x10^6/uL (3.50-5.40) 3.32x10^6/uL (3.50-5.40) Hemoglobin 11.4g/dL (12.0-15.5) 11.7g/dL (12.0-15.5) Hematocrit 34.1% (36.0-47.0) 35.0% (36.0-47.0) Mean Corpuscular Volume 106fL (79-100) 106fL (79-100) Mean Corpuscular Hemoglobin 35pg (25-35) 35pg (25-35) Mean Corpuscular Hemoglobin Concent 33g/dL (31-37) 33g/dL (31-37) Red Cell Distribution Width 15.8% (11.5-14.5) 15.7% (11.5-14.5) Platelet Count 99x10^3/uL (140-400) 108x10^3/uL (140-400) Neutrophils (%) (Auto) 58% (31-73) 75% (31-73) Lymphocytes (%) (Auto) 31% (24-48) 12% (24-48) Monocytes (%) (Auto) 5% (0-9) 9% (0-9) Eosinophils (%) (Auto) 6% (0-3) 4% (0-3) Basophils (%) (Auto) 1% (0-3) 1% (0-3) Neutrophils # (Auto) 2.8x10^3uL (1.8-7.7) 7.9x10^3uL (1.8-7.7) Lymphocytes # (Auto) 1.5x10^3/uL (1.0-4.8) 1.3x10^3/uL (1.0-4.8) Monocytes # (Auto) 0.2x10^3/uL (0.0-1.1) 0.9x10^3/uL (0.0-1.1) Eosinophils # (Auto) 0.3x10^3/uL (0.0-0.7) 0.4x10^3/uL (0.0-0.7) Basophils # (Auto) 0.0x10^3/uL (0.0-0.2) 0.1x10^3/uL (0.0-0.2) Sodium Level 142mmol/L (136-145) 143mmol/L (136-145) Potassium Level 3.4mmol/L (3.5-5.1) 3.0mmol/L (3.5-5.1) Chloride Level 101mmol/L (98-107) 102mmol/L (98-107) Carbon Dioxide Level 24mmol/L (21-32) 34mmol/L (21-32) Anion Gap 17 (6-14) 7 (6-14) Blood Urea Nitrogen 59mg/dL (7-20) 34mg/dL (7-20) Creatinine 5.9mg/dL (0.6-1.0) 4.3mg/dL (0.6-1.0) Estimated GFR (Cockcroft-Gault) 6.8 9.8 Glucose Level 284mg/dL (70-99) 67mg/dL (70-99) Calcium Level 8.0mg/dL (8.5-10.1) 8.5mg/dL (8.5-10.1) Glucose (Fingerstick) 196mg/dL (70-99) 262mg/dL (70-99) Phosphorus Level 5.0mg/dL (2.6-4.7) Magnesium Level 1.9mg/dL (1.8-2.4) Albumin 2.9g/dL (3.4-5.0) Test 08/14/16 07:56 08/14/16 08:15 08/14/16 09:11 08/14/16 11:29 Glucose (Fingerstick) 43mg/dL (70-99) 52mg/dL (70-99) 122mg/dL (70-99) 176mg/dL (70-99) Test 08/14/16 14:15 08/14/16 17:06 08/14/16 20:37 08/15/16 10:44 Glucose (Fingerstick) 96mg/dL (70-99) 193mg/dL (70-99) 189mg/dL (70-99) 88mg/dL (70-99) Test 08/15/16 11:51 Glucose (Fingerstick) 73mg/dL (70-99) Laboratory Tests Test 08/14/16 14:15 08/14/16 17:06 08/14/16 20:37 08/15/16 10:44 Glucose (Fingerstick) 96mg/dL (70-99) 193mg/dL (70-99) 189mg/dL (70-99) 88mg/dL (70-99) Test 08/15/16 11:51 Glucose (Fingerstick) 73mg/dL (70-99) Medications Current Medications Albuterol/ Ipratropium (Duoneb) 3 ml 1X ONCE NEB Last administered on 18:29; Start 08/12/16 at 18:15; Stop 08/12/16 at 18:24; Status DC Ondansetron HCl (Zofran) 4 mg PRN Q8HRS PRN IV NAUSEA/VOMITING; Start 08/12/16 at 19:45; Stop 08/13/16 at 19:44; Status DC Fentanyl Citrate (Fentanyl 2ml Vial) 50 mcg PRN Q2HR PRN IV PAIN; Start at 19:45; Stop 08/13/16 at 19:44; Status DC Albuterol/ Ipratropium (Duoneb) 3 ml RTQID NEB Last administered on 08/13/16 19:34; Start 08/12/16 at 20:00; Stop 08/13/16 at 19:59; Status DC Allopurinol (Zyloprim) 100 mg DAILYWSUP PO Last administered on 08/14/16 15:17 ; Start 08/13/16 at 17:00 Aspirin (Ecotrin) 81 mg DAILY PO Last administered on 08/14/16 09:03; Start at 09:00 Cyclobenzaprine HCl (Flexeril) 10 mg TID PO Last administered on 08/14/16 21: 02; Start 08/13/16 at 10:00 Diltiazem HCl (Cardizem 24hr Cd) 180 mg DAILY PO Last administered on 09:02; Start 08/13/16 at 10:00 Vitamin B Complex/ Vitamin C (Bela-Roland) 1 tab DAILYBFRSUP PO Last administered on 08/14/16 15:17; Start 08/13/16 at 17:00 Furosemide (Lasix) 80 mg BID92 PO ; Start 08/13/16 at 14:00; Stop 08/13/16 at 14 :00; Status DC Hydralazine HCl (Apresoline) 25 mg QTUTHSASU PO Last administered on 08/14/16 15:17; Start 08/14/16 at 16:00 Latanoprost (Xalatan) 1 drop HS OU Last administered on 08/14/16 21:01; Start 08/13/16 at 21:00 Sevelamer Carbonate (Renvela) 2.4 gm TID PO Last administered on 08/14/16 21: 03; Start 08/13/16 at 10:00 Carvedilol (Coreg) 12.5 mg DAILYWLUN PO Last administered on 08/14/16 14:17; Start 08/13/16 at 12:00 Vitamin D (Vitamin D3) 2,000 unit HS PO Last administered on 08/14/16 21:02; Start 08/13/16 at 21:00 Non-Formulary Medication 15 mg TID PRN PRN PO COUGH; Start 08/13/16 at 09:45; Status UNV Non-Formulary Medication 25 unit HS SQ ; Start 08/13/16 at 21:00; Stop 08/13/16 at 21:00; Status DC Sodium Polystyrene Sulfonate (Kayexalate) 30 gm WEEKLY PO ; Start 08/20/16 at 09 :00 Insulin Detemir (Levemir) 20 units QHS SQ Last administered on 08/13/16 20:54 ; Start 08/13/16 at 21:00; Stop 08/14/16 at 08:36; Status DC Insulin Aspart (Novolog) 0-9 UNITS TIDWMEALS SQ ; Start 08/13/16 at 12:00; Stop 08/13/16 at 12:44; Status DC Dextrose (Dextrose 50%-Water Syringe) 12.5 gm PRN Q15MIN PRN IV SEE COMMENTS; Start 08/13/16 at 09:45 Acetaminophen (Tylenol) 650 mg PRN Q6HRS PRN PO FEVER; Start 08/13/16 at 09:45 Ondansetron HCl (Zofran) 4 mg PRN Q6HRS PRN IV NAUSEA/VOMITING; Start 08/13/16 at 09:45 Tramadol HCl (Ultram) 50 mg PRN Q6HRS PRN PO PAIN; Start 08/13/16 at 09:45 Guaifenesin/ Codeine Phosphate (Robitussin Ac) 5 ml PRN Q6HRS PRN PO COUGH Last administered on 08/14/16 21:01; Start 08/13/16 at 09:45 Insulin Aspart (Novolog) 0-9 UNITS QIDACHS SQ Last administered on 08/14/16 21 :16; Start 08/13/16 at 16:30 Heparin Sodium (Porcine) 5000 unit 5,000 unit Q8HRS SQ Last administered on 06:11; Start 08/13/16 at 14:00 Magnesium Sulfate/ Dextrose 50 ml @ 25 mls/hr PRN DAILY PRN IV for Mag < 1.7 on am labs; Start 08/13/16 at 13:15 Sodium Chloride 1,000 ml @ 1,000 mls/hr Q1H PRN IV hypotension; Start 08/13/16 at 13:11; Stop 08/13/16 at 19:10; Status DC Albumin Human (Albuminar) 200 ml @ 200 mls/hr 1X PRN PRN IV Hypotension; Start 08/13/16 at 13:15; Stop 08/13/16 at 19:14; Status DC Acetaminophen (Tylenol) 500 mg 1X PRN PRN PO MILD PAIN / TEMP; Start 08/13/16 at 13:15; Stop 08/14/16 at 13:14; Status DC Diphenhydramine HCl (Benadryl) 25 mg 1X PRN PRN IV ITCHING; Start 08/13/16 at 13:15; Stop 08/14/16 at 13:14; Status DC Diphenhydramine HCl (Benadryl) 25 mg 1X PRN PRN IV ITCHING; Start 08/13/16 at 13:15; Stop 08/14/16 at 13:14; Status DC Labetalol HCl (Normodyne) 10 mg PRN Q1HR PRN IVP SBP > 180; Start 08/13/16 at 13:15; Stop 08/14/16 at 13:14; Status DC Clonidine HCl (Catapres) 0.1 mg 1X PRN PRN PO SBP > 180; Start 08/13/16 at 13: 15; Stop 08/14/16 at 13:14; Status DC Info (PHARMACY MONITORING -- do not chart) 1 each PRN DAILY PRN MC SEE COMMENTS ; Start 08/13/16 at 13:15; Stop 08/14/16 at 15:19; Status DC Lidocaine HCl (Xylocaine-Mpf 1% Vial) 2 ml STK-MED ONCE .ROUTE ; Start 08/13/16 at 13:35; Stop 08/13/16 at 13:36; Status DC Insulin Detemir (Levemir) 15 units QHS SQ Last administered on 08/14/16t 21:15 ; Start 08/14/16 at 21:00 Potassium Chloride 40 meq 40 meq 1X ONCE PO ; Start 08/14/16 at 09:00; Stop at 09:00; Status DC Sodium Chloride 1,000 ml @ 1,000 mls/hr Q1H PRN IV hypotension; Start 08/14/16 at 09:19; Stop 08/14/16 at 15:18; Status DC Albumin Human (Albuminar) 200 ml @ 200 mls/hr 1X PRN PRN IV Hypotension Last administered on 08/14/16t 11:37; Start 08/14/16 at 09:30; Stop 08/14/16 at 15:29 ; Status DC Acetaminophen (Tylenol) 500 mg 1X PRN PRN PO MILD PAIN / TEMP; Start 08/14/16 at 09:30; Stop 08/15/16 at 09:29; Status DC Diphenhydramine HCl (Benadryl) 25 mg 1X PRN PRN IV ITCHING; Start 08/14/16 at 09:30; Stop 08/15/16 at 09:29; Status DC Diphenhydramine HCl (Benadryl) 25 mg 1X PRN PRN IV ITCHING; Start 08/14/16 at 09:30; Stop 08/15/16 at 09:29; Status DC Labetalol HCl (Normodyne) 10 mg PRN Q1HR PRN IVP SBP > 180; Start 08/14/16 at 09:30; Stop 08/15/16 at 09:29; Status DC Clonidine HCl 0.1 mg 0.1 mg 1X PRN PRN PO SBP > 180; Start 08/14/16 at 09:30; Stop 08/15/16 at 09:29; Status DC Sodium Chloride (Iv Sodium Chloride 0.9% 1000ml Bag) 1,000 ml @ 400 mls/hr Q2H30M PRN IV PATENCY; Start 08/14/16 at 09:19; Stop 08/14/16 at 21:18; Status DC Info (PHARMACY MONITORING -- do not chart) 1 each PRN DAILY PRN MC SEE COMMENTS ; Start 08/14/16 at 09:30 Lidocaine HCl (Xylocaine-Mpf 1% Vial) 2 ml STK-MED ONCE .ROUTE ; Start 08/14/16 at 09:40; Stop 08/14/16 at 09:41; Status DC Lidocaine HCl 2 ml 2 ml 1X ONCE INJ Last administered on 08/14/16 10:54; Start 08/14/16 at 11:00; Stop 08/14/16 at 11:01; Status DC Ceftriaxone Sodium/Sodium Chloride (Rocephin/Iv Sodium Chloride 0.9% 50ml) 50 ml @ 100 mls/hr Q24H IV Last administered on 08/14/16 16:47; Start 08/14/16 at 16:30 Albuterol/ Ipratropium (Duoneb) 3 ml RTQID NEB Last administered on 08/15/16 07:32; Start 08/14/16 at 18:00 Budesonide (Pulmicort) 0.5 mg RTBID NEB Last administered on 08/15/16 07:32; Start 08/14/16 at 18:00 Guaifenesin 600 mg 600 mg BID PO Last administered on 08/14/16 21:02; Start at 21:00 Sodium Chloride 1,000 ml @ 1,000 mls/hr Q1H PRN IV hypotension; Start 08/15/16 at 07:34; Stop 08/15/16 at 13:33 Albumin Human (Albuminar) 200 ml @ 200 mls/hr 1X PRN PRN IV Hypotension; Start 08/15/16 at 07:45; Stop 08/15/16 at 13:44 Acetaminophen (Tylenol) 500 mg 1X PRN PRN PO MILD PAIN / TEMP; Start 08/15/16 at 07:45; Stop 08/16/16 at 07:44 Diphenhydramine HCl (Benadryl) 25 mg 1X PRN PRN IV ITCHING; Start 08/15/16 at 07:45; Stop 08/16/16 at 07:44 Diphenhydramine HCl (Benadryl) 25 mg 1X PRN PRN IV ITCHING; Start 08/15/16 at 07:45; Stop 08/16/16 at 07:44 Labetalol HCl (Normodyne) 10 mg PRN Q1HR PRN IVP SBP > 180; Start 08/15/16 at 07:45; Stop 08/16/16 at 07:44 Clonidine HCl 0.1 mg 0.1 mg 1X PRN PRN PO SBP > 180; Start 08/15/16 at 07:45; Stop 08/16/16 at 07:44 Sodium Chloride (Iv Sodium Chloride 0.9% 1000ml Bag) 1,000 ml @ 400 mls/hr Q2H30M PRN IV PATENCY; Start 08/15/16 at 07:34; Stop 08/15/16 at 19:33 Info (PHARMACY MONITORING -- do not chart) 1 each PRN DAILY PRN MC SEE COMMENTS ; Start 08/15/16 at 07:45 Lidocaine HCl (Xylocaine-Mpf 1% Vial) 2 ml STK-MED ONCE .ROUTE ; Start 08/15/16 at 07:37; Stop 08/15/16 at 07:38; Status DC Lidocaine HCl (Xylocaine-Mpf 1% Vial) 2 ml 1X ONCE INJ Last administered on t 08:30; Start 08/15/16 at 08:30; Stop 08/15/16 at 08:31; Status DC Barium Sulfate (Varibar Thin Liquid Apple) 148 gm 1X ONCE PO ; Start 08/15/16 at 12:15; Stop 08/15/16 at 12:16; Status DC Active Scripts Active Doxycycline Hyclate 100 Mg Tablet 100 Mg PO BID Robitussin (Dextromethorphan HBr) 15 Mg Capsule 15 Mg PO TID PRN PRN Reported Ondansetron Odt (Ondansetron) 4 Mg Tab.rapdis 1 Tab PO PRN Q8HRS PRN Sodium Polystyrene Sulfonate 15 Gm/60 Ml Oral.susp 30 Gm PO WEEKLY Novolog (Insulin Aspart) 100 Unit/1 Ml Cartridge 0 SQ sliding scale: 140 - 180 = 1 unit 181 - 240 = 2 units 241 - 300 = 3 units 301 - 400 = 4 units 401 - 500 = 5 units Lantus (Insulin Glargine,Hum.rec.anlog) 100 Unit/1 Ml Vial 25 Unit SQ HS Renvela (Sevelamer Carbonate) 2.4 Gm Powd.pack 2.4 Gm PO TID take with 20 oz cranberry juice Nephro-Roland Tablet (Folic Acid/Vitamin B Comp W-C) 0.8 Mg Tablet 1 Tab PO DAILYBFRSUP Vitamin D (Cholecalciferol (Vitamin D3)) 2,000 Unit Capsule 1 Cap PO HS Latanoprost 2.5 Ml Drops 1 Drop OP HS Hydralazine Hcl 25 Mg Tablet 1 Tab PO QTUTHSASU Allopurinol 100 Mg Tablet 1 Tab PO DAILYWSUP Cyclobenzaprine Hcl 10 Mg Tablet 1 Tab PO TID Diltiazem 24HR Cd (Diltiazem Hcl) 180 Mg Cap.er.24h 1 Cap PO DAILY Lasix (Furosemide) 80 Mg Tablet 1 Tab PO BID Carvedilol 25 Mg Tablet 12.5 Tab PO DAILYWLUN Aspir-Low (Aspirin) 81 Mg Tablet. 1 Tab PO DAILY Vitals/I & O Vital Sign - Last 24 Hours 08/14/16 08/14/16 08/14/16 08/14/16 14:17 15:00 15:17 18:08 Temp 97.4 97.4 Pulse 92 95 Resp 18 B/P 104/67 115/63 115/63 Pulse Ox 98 95 O2 Delivery Nasal Cannula Nasal Cannula O2 Flow Rate 3.0 2.0 08/14/16 08/14/16 08/14/16 08/15/16 19:15 19:15 23:00 03:05 Temp 97.7 98.0 98.0 97.7 98.0 98.0 Pulse 92 89 93 Resp 22 20 18 B/P 98/55 101/50 104/70 Pulse Ox 97 96 98 O2 Delivery Nasal Cannula Nasal Cannula Nasal Cannula Nasal Cannula O2 Flow Rate 2.0 3.0 3.0 3.0 08/15/16 08/15/16 08/15/16 07:33 08:00 12:21 Temp 97.6 97.6 Pulse 79 Resp 18 B/P 110/71 Pulse Ox 95 98 O2 Delivery Nasal Cannula Nasal Cannula Nasal Cannula O2 Flow Rate 2.0 2.0 3.0 Intake and Output 08/14/16 08/14/16 08/15/16 15:00 23:00 07:00 Intake Total 550 ml 240 ml Output Total 1 ml 0 ml Balance 549 ml 240 ml KIM LAZAR MD Aug 15, 2016 12:33
--- NOTE | 2016-08-15 13:28 | PDOC ---
PROGRESS NOTES Subjective Subjective Patient was in dialysis this AM. No complaints. Edema and SOB much improved. Objective Objective Vital Signs Date Time Temp Pulse Resp B/P Pulse Ox O2 Delivery O2 Flow Rate FiO2 08/15/16 12:21 97.6 79 18 110/71 98 Nasal Cannula 3.0 97.6 Intake and Output 08/15/16 07:00 Intake Total 790 ml Output Total 1 ml Balance 789 ml Intake Oral 790 ml Output Urine Total 0 ml Stool Total 1 ml # Voids 1 Physical Exam Abdomen: Soft Heart: Other (irregularly irregular) Extremities: Other (1+ pitting edema bilateral lower extremities) General: Alert, Oriented X3, Cooperative, No acute distress HEENT: Atraumatic, EOMI Lungs: Clear to auscultation Neuro: Normal speech Psych/Mental Status: Mental status NL, Mood NL Assessment Assessment CHF CAD s/p CABG 2003 ESRD on MWF dialysis schedule HTN, controlled DM2 Plan Plan of Care Patient appeared very fluid overloaded on admission despite regular attendance at dialysis. Now much improved. -Dialysis removed 2.6 L Saturday and 3L yesterday. Resume normal MWF schedule -D/C lasix No echocardiogram recommended at this time. -Echocardiogram 11/2015 - 20% EF, moderate MR, moderate TR, mild CT, elevated PA pressure at 43 Patient is stable from cardiac standpoint. May go home when Nephrology deems appropriate. Thank you for the opportunity to provide care for this patient. Comment Review of Relevant I have reviewed the following items smith (where applicable) has been applied. Labs Laboratory Tests Test 08/13/16 13:50 08/13/16 18:06 08/13/16 20:37 08/14/16 03:48 White Blood Count 4.7x10^3/uL (4.0-11.0) 10.6x10^3/uL (4.0-11.0) Red Blood Count 3.22x10^6/uL (3.50-5.40) 3.32x10^6/uL (3.50-5.40) Hemoglobin 11.4g/dL (12.0-15.5) 11.7g/dL (12.0-15.5) Hematocrit 34.1% (36.0-47.0) 35.0% (36.0-47.0) Mean Corpuscular Volume 106fL (79-100) 106fL (79-100) Mean Corpuscular Hemoglobin 35pg (25-35) 35pg (25-35) Mean Corpuscular Hemoglobin Concent 33g/dL (31-37) 33g/dL (31-37) Red Cell Distribution Width 15.8% (11.5-14.5) 15.7% (11.5-14.5) Platelet Count 99x10^3/uL (140-400) 108x10^3/uL (140-400) Neutrophils (%) (Auto) 58% (31-73) 75% (31-73) Lymphocytes (%) (Auto) 31% (24-48) 12% (24-48) Monocytes (%) (Auto) 5% (0-9) 9% (0-9) Eosinophils (%) (Auto) 6% (0-3) 4% (0-3) Basophils (%) (Auto) 1% (0-3) 1% (0-3) Neutrophils # (Auto) 2.8x10^3uL (1.8-7.7) 7.9x10^3uL (1.8-7.7) Lymphocytes # (Auto) 1.5x10^3/uL (1.0-4.8) 1.3x10^3/uL (1.0-4.8) Monocytes # (Auto) 0.2x10^3/uL (0.0-1.1) 0.9x10^3/uL (0.0-1.1) Eosinophils # (Auto) 0.3x10^3/uL (0.0-0.7) 0.4x10^3/uL (0.0-0.7) Basophils # (Auto) 0.0x10^3/uL (0.0-0.2) 0.1x10^3/uL (0.0-0.2) Sodium Level 142mmol/L (136-145) 143mmol/L (136-145) Potassium Level 3.4mmol/L (3.5-5.1) 3.0mmol/L (3.5-5.1) Chloride Level 101mmol/L (98-107) 102mmol/L (98-107) Carbon Dioxide Level 24mmol/L (21-32) 34mmol/L (21-32) Anion Gap 17 (6-14) 7 (6-14) Blood Urea Nitrogen 59mg/dL (7-20) 34mg/dL (7-20) Creatinine 5.9mg/dL (0.6-1.0) 4.3mg/dL (0.6-1.0) Estimated GFR (Cockcroft-Gault) 6.8 9.8 Glucose Level 284mg/dL (70-99) 67mg/dL (70-99) Calcium Level 8.0mg/dL (8.5-10.1) 8.5mg/dL (8.5-10.1) Glucose (Fingerstick) 196mg/dL (70-99) 262mg/dL (70-99) Phosphorus Level 5.0mg/dL (2.6-4.7) Magnesium Level 1.9mg/dL (1.8-2.4) Albumin 2.9g/dL (3.4-5.0) Test 08/14/16 07:56 08/14/16 08:15 08/14/16 09:11 08/14/16 11:29 Glucose (Fingerstick) 43mg/dL (70-99) 52mg/dL (70-99) 122mg/dL (70-99) 176mg/dL (70-99) Test 08/14/16 14:15 08/14/16 17:06 08/14/16 20:37 08/15/16 10:44 Glucose (Fingerstick) 96mg/dL (70-99) 193mg/dL (70-99) 189mg/dL (70-99) 88mg/dL (70-99) Test 08/15/16 11:51 Glucose (Fingerstick) 73mg/dL (70-99) Laboratory Tests Test 08/14/16 14:15 08/14/16 17:06 08/14/16 20:37 08/15/16 10:44 Glucose (Fingerstick) 96mg/dL (70-99) 193mg/dL (70-99) 189mg/dL (70-99) 88mg/dL (70-99) Test 08/15/16 11:51 Glucose (Fingerstick) 73mg/dL (70-99) Medications Current Medications Albuterol/ Ipratropium (Duoneb) 3 ml 1X ONCE NEB Last administered on 18:29; Start 08/12/16 at 18:15; Stop 08/12/16 at 18:24; Status DC Ondansetron HCl (Zofran) 4 mg PRN Q8HRS PRN IV NAUSEA/VOMITING; Start 08/12/16 at 19:45; Stop 08/13/16 at 19:44; Status DC Fentanyl Citrate (Fentanyl 2ml Vial) 50 mcg PRN Q2HR PRN IV PAIN; Start at 19:45; Stop 08/13/16 at 19:44; Status DC Albuterol/ Ipratropium (Duoneb) 3 ml RTQID NEB Last administered on 08/13/16 19:34; Start 08/12/16 at 20:00; Stop 08/13/16 at 19:59; Status DC Allopurinol (Zyloprim) 100 mg DAILYWSUP PO Last administered on 08/14/16 15:17 ; Start 08/13/16 at 17:00 Aspirin (Ecotrin) 81 mg DAILY PO Last administered on 08/14/16 09:03; Start at 09:00 Cyclobenzaprine HCl (Flexeril) 10 mg TID PO Last administered on 08/14/16 21: 02; Start 08/13/16 at 10:00 Diltiazem HCl (Cardizem 24hr Cd) 180 mg DAILY PO Last administered on 09:02; Start 08/13/16 at 10:00 Vitamin B Complex/ Vitamin C (Bela-Roland) 1 tab DAILYBFRSUP PO Last administered on 08/14/16 15:17; Start 08/13/16 at 17:00 Furosemide (Lasix) 80 mg BID92 PO ; Start 08/13/16 at 14:00; Stop 08/13/16 at 14 :00; Status DC Hydralazine HCl (Apresoline) 25 mg QTUTHSASU PO Last administered on 08/14/16 15:17; Start 08/14/16 at 16:00 Latanoprost (Xalatan) 1 drop HS OU Last administered on 08/14/16 21:01; Start 08/13/16 at 21:00 Sevelamer Carbonate (Renvela) 2.4 gm TID PO Last administered on 08/14/16 21: 03; Start 08/13/16 at 10:00 Carvedilol (Coreg) 12.5 mg DAILYWLUN PO Last administered on 08/14/16 14:17; Start 08/13/16 at 12:00 Vitamin D (Vitamin D3) 2,000 unit HS PO Last administered on 08/14/16 21:02; Start 08/13/16 at 21:00 Non-Formulary Medication 15 mg TID PRN PRN PO COUGH; Start 08/13/16 at 09:45; Status UNV Non-Formulary Medication 25 unit HS SQ ; Start 08/13/16 at 21:00; Stop 08/13/16 at 21:00; Status DC Sodium Polystyrene Sulfonate (Kayexalate) 30 gm WEEKLY PO ; Start 08/20/16 at 09 :00 Insulin Detemir (Levemir) 20 units QHS SQ Last administered on 08/13/16 20:54 ; Start 08/13/16 at 21:00; Stop 08/14/16 at 08:36; Status DC Insulin Aspart (Novolog) 0-9 UNITS TIDWMEALS SQ ; Start 08/13/16 at 12:00; Stop 08/13/16 at 12:44; Status DC Dextrose (Dextrose 50%-Water Syringe) 12.5 gm PRN Q15MIN PRN IV SEE COMMENTS; Start 08/13/16 at 09:45 Acetaminophen (Tylenol) 650 mg PRN Q6HRS PRN PO FEVER; Start 08/13/16 at 09:45 Ondansetron HCl (Zofran) 4 mg PRN Q6HRS PRN IV NAUSEA/VOMITING; Start 08/13/16 at 09:45 Tramadol HCl (Ultram) 50 mg PRN Q6HRS PRN PO PAIN; Start 08/13/16 at 09:45 Guaifenesin/ Codeine Phosphate (Robitussin Ac) 5 ml PRN Q6HRS PRN PO COUGH Last administered on 08/14/16 21:01; Start 08/13/16 at 09:45 Insulin Aspart (Novolog) 0-9 UNITS QIDACHS SQ Last administered on 08/14/16t 21 :16; Start 08/13/16 at 16:30 Heparin Sodium (Porcine) 5000 unit 5,000 unit Q8HRS SQ Last administered on t 06:11; Start 08/13/16 at 14:00 Magnesium Sulfate/ Dextrose 50 ml @ 25 mls/hr PRN DAILY PRN IV for Mag < 1.7 on am labs; Start 08/13/16 at 13:15 Sodium Chloride 1,000 ml @ 1,000 mls/hr Q1H PRN IV hypotension; Start 08/13/16 at 13:11; Stop 08/13/16 at 19:10; Status DC Albumin Human (Albuminar) 200 ml @ 200 mls/hr 1X PRN PRN IV Hypotension; Start 08/13/16 at 13:15; Stop 08/13/16 at 19:14; Status DC Acetaminophen (Tylenol) 500 mg 1X PRN PRN PO MILD PAIN / TEMP; Start 08/13/16 at 13:15; Stop 08/14/16 at 13:14; Status DC Diphenhydramine HCl (Benadryl) 25 mg 1X PRN PRN IV ITCHING; Start 08/13/16 at 13:15; Stop 08/14/16 at 13:14; Status DC Diphenhydramine HCl (Benadryl) 25 mg 1X PRN PRN IV ITCHING; Start 08/13/16 at 13:15; Stop 08/14/16 at 13:14; Status DC Labetalol HCl (Normodyne) 10 mg PRN Q1HR PRN IVP SBP > 180; Start 08/13/16 at 13:15; Stop 08/14/16 at 13:14; Status DC Clonidine HCl (Catapres) 0.1 mg 1X PRN PRN PO SBP > 180; Start 08/13/16 at 13: 15; Stop 08/14/16 at 13:14; Status DC Info (PHARMACY MONITORING -- do not chart) 1 each PRN DAILY PRN MC SEE COMMENTS ; Start 08/13/16 at 13:15; Stop 08/14/16 at 15:19; Status DC Lidocaine HCl (Xylocaine-Mpf 1% Vial) 2 ml STK-MED ONCE .ROUTE ; Start 08/13/16 at 13:35; Stop 08/13/16 at 13:36; Status DC Insulin Detemir (Levemir) 15 units QHS SQ Last administered on 08/14/16t 21:15 ; Start 08/14/16 at 21:00 Potassium Chloride 40 meq 40 meq 1X ONCE PO ; Start 08/14/16 at 09:00; Stop at 09:00; Status DC Sodium Chloride 1,000 ml @ 1,000 mls/hr Q1H PRN IV hypotension; Start 08/14/16 at 09:19; Stop 08/14/16 at 15:18; Status DC Albumin Human (Albuminar) 200 ml @ 200 mls/hr 1X PRN PRN IV Hypotension Last administered on 08/14/16 11:37; Start 08/14/16 at 09:30; Stop 08/14/16 at 15:29 ; Status DC Acetaminophen (Tylenol) 500 mg 1X PRN PRN PO MILD PAIN / TEMP; Start 08/14/16 at 09:30; Stop 08/15/16 at 09:29; Status DC Diphenhydramine HCl (Benadryl) 25 mg 1X PRN PRN IV ITCHING; Start 08/14/16 at 09:30; Stop 08/15/16 at 09:29; Status DC Diphenhydramine HCl (Benadryl) 25 mg 1X PRN PRN IV ITCHING; Start 08/14/16 at 09:30; Stop 08/15/16 at 09:29; Status DC Labetalol HCl (Normodyne) 10 mg PRN Q1HR PRN IVP SBP > 180; Start 08/14/16 at 09:30; Stop 08/15/16 at 09:29; Status DC Clonidine HCl 0.1 mg 0.1 mg 1X PRN PRN PO SBP > 180; Start 08/14/16 at 09:30; Stop 08/15/16 at 09:29; Status DC Sodium Chloride (Iv Sodium Chloride 0.9% 1000ml Bag) 1,000 ml @ 400 mls/hr Q2H30M PRN IV PATENCY; Start 08/14/16 at 09:19; Stop 08/14/16 at 21:18; Status DC Info (PHARMACY MONITORING -- do not chart) 1 each PRN DAILY PRN MC SEE COMMENTS ; Start 08/14/16 at 09:30; Stop 08/15/16 at 13:22; Status DC Lidocaine HCl (Xylocaine-Mpf 1% Vial) 2 ml STK-MED ONCE .ROUTE ; Start 08/14/16 at 09:40; Stop 08/14/16 at 09:41; Status DC Lidocaine HCl 2 ml 2 ml 1X ONCE INJ Last administered on 08/14/16 10:54; Start 08/14/16 at 11:00; Stop 08/14/16 at 11:01; Status DC Ceftriaxone Sodium/Sodium Chloride (Rocephin/Iv Sodium Chloride 0.9% 50ml) 50 ml @ 100 mls/hr Q24H IV Last administered on 08/14/16 16:47; Start 08/14/16 at 16:30 Albuterol/ Ipratropium (Duoneb) 3 ml RTQID NEB Last administered on 08/15/16 07:32; Start 08/14/16 at 18:00 Budesonide (Pulmicort) 0.5 mg RTBID NEB Last administered on 08/15/16 07:32; Start 08/14/16 at 18:00 Guaifenesin 600 mg 600 mg BID PO Last administered on 08/14/16 21:02; Start at 21:00 Sodium Chloride 1,000 ml @ 1,000 mls/hr Q1H PRN IV hypotension; Start 08/15/16 at 07:34; Stop 08/15/16 at 13:33 Albumin Human (Albuminar) 200 ml @ 200 mls/hr 1X PRN PRN IV Hypotension; Start 08/15/16 at 07:45; Stop 08/15/16 at 13:44 Acetaminophen (Tylenol) 500 mg 1X PRN PRN PO MILD PAIN / TEMP; Start 08/15/16 at 07:45; Stop 08/16/16 at 07:44 Diphenhydramine HCl (Benadryl) 25 mg 1X PRN PRN IV ITCHING; Start 08/15/16 at 07:45; Stop 08/16/16 at 07:44 Diphenhydramine HCl (Benadryl) 25 mg 1X PRN PRN IV ITCHING; Start 08/15/16 at 07:45; Stop 08/16/16 at 07:44 Labetalol HCl (Normodyne) 10 mg PRN Q1HR PRN IVP SBP > 180; Start 08/15/16 at 07:45; Stop 08/16/16 at 07:44 Clonidine HCl 0.1 mg 0.1 mg 1X PRN PRN PO SBP > 180; Start 08/15/16 at 07:45; Stop 08/16/16 at 07:44 Sodium Chloride (Iv Sodium Chloride 0.9% 1000ml Bag) 1,000 ml @ 400 mls/hr Q2H30M PRN IV PATENCY; Start 08/15/16 at 07:34; Stop 08/15/16 at 19:33 Info (PHARMACY MONITORING -- do not chart) 1 each PRN DAILY PRN MC SEE COMMENTS ; Start 08/15/16 at 07:45 Lidocaine HCl (Xylocaine-Mpf 1% Vial) 2 ml STK-MED ONCE .ROUTE ; Start 08/15/16 at 07:37; Stop 08/15/16 at 07:38; Status DC Lidocaine HCl (Xylocaine-Mpf 1% Vial) 2 ml 1X ONCE INJ Last administered on t 08:30; Start 08/15/16 at 08:30; Stop 08/15/16 at 08:31; Status DC Barium Sulfate (Varibar Thin Liquid Apple) 148 gm 1X ONCE PO ; Start 08/15/16 at 12:15; Stop 08/15/16 at 12:16; Status DC Active Scripts Active Doxycycline Hyclate 100 Mg Tablet 100 Mg PO BID Robitussin (Dextromethorphan HBr) 15 Mg Capsule 15 Mg PO TID PRN PRN Reported Ondansetron Odt (Ondansetron) 4 Mg Tab.rapdis 1 Tab PO PRN Q8HRS PRN Sodium Polystyrene Sulfonate 15 Gm/60 Ml Oral.susp 30 Gm PO WEEKLY Novolog (Insulin Aspart) 100 Unit/1 Ml Cartridge 0 SQ sliding scale: 140 - 180 = 1 unit 181 - 240 = 2 units 241 - 300 = 3 units 301 - 400 = 4 units 401 - 500 = 5 units Lantus (Insulin Glargine,Hum.rec.anlog) 100 Unit/1 Ml Vial 25 Unit SQ HS Renvela (Sevelamer Carbonate) 2.4 Gm Powd.pack 2.4 Gm PO TID take with 20 oz cranberry juice Nephro-Roland Tablet (Folic Acid/Vitamin B Comp W-C) 0.8 Mg Tablet 1 Tab PO DAILYBFRSUP Vitamin D (Cholecalciferol (Vitamin D3)) 2,000 Unit Capsule 1 Cap PO HS Latanoprost 2.5 Ml Drops 1 Drop OP HS Hydralazine Hcl 25 Mg Tablet 1 Tab PO QTUTHSASU Allopurinol 100 Mg Tablet 1 Tab PO DAILYWSUP Cyclobenzaprine Hcl 10 Mg Tablet 1 Tab PO TID Diltiazem 24HR Cd (Diltiazem Hcl) 180 Mg Cap.er.24h 1 Cap PO DAILY Lasix (Furosemide) 80 Mg Tablet 1 Tab PO BID Carvedilol 25 Mg Tablet 12.5 Tab PO DAILYWLUN Aspir-Low (Aspirin) 81 Mg Tablet.dr 1 Tab PO DAILY Vitals/I & O Vital Sign - Last 24 Hours 08/14/16 08/14/16 08/14/16 08/14/16 14:17 15:00 15:17 18:08 Temp 97.4 97.4 Pulse 92 95 Resp 18 B/P 104/67 115/63 115/63 Pulse Ox 98 95 O2 Delivery Nasal Cannula Nasal Cannula O2 Flow Rate 3.0 2.0 08/14/16 08/14/16 08/14/16 08/15/16 19:15 19:15 23:00 03:05 Temp 97.7 98.0 98.0 97.7 98.0 98.0 Pulse 92 89 93 Resp 22 20 18 B/P 98/55 101/50 104/70 Pulse Ox 97 96 98 O2 Delivery Nasal Cannula Nasal Cannula Nasal Cannula Nasal Cannula O2 Flow Rate 2.0 3.0 3.0 3.0 08/15/16 08/15/16 08/15/16 07:33 08:00 12:21 Temp 97.6 97.6 Pulse 79 Resp 18 B/P 110/71 Pulse Ox 95 98 O2 Delivery Nasal Cannula Nasal Cannula Nasal Cannula O2 Flow Rate 2.0 2.0 3.0 Intake and Output 08/14/16 08/14/16 08/15/16 15:00 23:00 07:00 Intake Total 550 ml 240 ml Output Total 1 ml 0 ml Balance 549 ml 240 ml ELIAZAR TORRE MD Aug 15, 2016 13:28
[2016-08-15] MEDS: GUAIFENESIN ER 600 MG TABLET.ER PO SCH ×2 (13:47→20:53)
[2016-08-15] MEDS: CARVEDILOL 12.5 MG TABLET. PO SCH (13:48)
[2016-08-15] MEDS: ASPIRIN ENTERIC COATED 81 MG TABLET.DR. PO SCH (13:48)
[2016-08-15] MEDS: DILTIAZEM HCL 180 MG CAP.ER.24H PO SCH (13:48)
[2016-08-15] MEDS: GUAIFENESIN/CODEINE 100mg/10mg 5 ML LIQUID. PO PRN (13:49)
[2016-08-15 14:14] LABS: ALBUMIN 3.5 g/dL (3.4-5.0); CALCIUM 9.2 mg/dL (8.5-10.1); CREATININE 2.2 mg/dL (0.6-1.0); GFR 21.3; PHOSPHORUS 2.9 mg/dL (2.6-4.7); POTASSIUM 3.6 mmol/L (3.5-5.1)
[2016-08-15 15:00] VITALS: BP 150/54
--- NOTE | 2016-08-15 15:57 | RAD ---
Video dysphasia study, 08/15/2016: History: Dysphasia The swallowing mechanism was examined fluoroscopically in the lateral projection while the patient ingested a variety of food materials mixed with barium. 2.2 minutes of fluoroscopy time was utilized. A single fluoroscopic video loop was recorded by a member of the speech Department. The patient demonstrated good oral control of the barium materials. When ingesting the thin liquids there was only transient laryngeal penetration. The majority of the barium bolus passed normally through the cervical esophagus. No aspiration was demonstrated. The patient ingested the thicker materials and barium coated solids without difficulty. There was only mild occasional vallecular or pyriform sinus residue. No aspiration was observed. IMPRESSION: No evidence of aspiration.
[2016-08-15] MEDS: FOLIC/VIT B COMP W-C (RENAL) TABLET. PO SCH (18:17)
[2016-08-15] MEDS: CEFTRIAXONE SODIUM 1 GM in IV NORMAL SALINE 50ML 50 ML IV SCH (18:17)
[2016-08-15] MEDS: ALLOPURINOL 100 MG TABLET. PO SCH (18:17)
[2016-08-15 19:00] VITALS: BP 111/49
[2016-08-15] MEDS: CHOLECALCIFEROL (VITAMIN D3) 1,000 UNIT TABLET PO SCH (20:53)
[2016-08-15] MEDS: LATANOPROST 0.005% OPHTH SOLUTION 2.5ML BOTTLE. OU SCH (20:53)
[2016-08-15] MEDS: INSULIN DETEMIR 300 UNITS/3 ML INSULN.PEN. SQ SCH (20:59)
[2016-08-15 22:50] VITALS: BP 105/51
[2016-08-16 03:16] VITALS: BP 100/55
[2016-08-16 04:22] LABS: ALBUMIN 3.4 g/dL (3.4-5.0); CALCIUM 9.2 mg/dL (8.5-10.1); CREATININE 3.3 mg/dL (0.6-1.0); GFR 13.3; PHOSPHORUS 4.2 mg/dL (2.6-4.7)
[2016-08-16] MEDS: HEPARIN PF for SUB-Q USE 5,000 UNIT/0.5 ML VIAL. SQ SCH ×2 (06:28→13:22)
[2016-08-16 07:00] VITALS: BP 113/56
[2016-08-16] MEDS: INSULIN ASPART 300 UNITS/3 ML INSULN.PEN SQ SCH ×3 (07:30→16:30)
[2016-08-16] MEDS: IPRATRPIUM/ALBUTEROL 0.5/2.5MG 3 ML NEBU. NEB SCH ×3 (07:36→15:48)
[2016-08-16] MEDS: BUDESONIDE 0.5 MG/2 ML NEBU. NEB SCH (07:37)
[2016-08-16] MEDS: CYCLOBENZAPRINE 10 MG TABLET. PO SCH ×2 (09:01→13:15)
[2016-08-16] MEDS: ASPIRIN ENTERIC COATED 81 MG TABLET.DR. PO SCH (09:01)
[2016-08-16] MEDS: DILTIAZEM HCL 180 MG CAP.ER.24H PO SCH (09:01)
[2016-08-16] MEDS: SEVELAMER CARBONATE 2.4 GM PACKET. PO SCH ×2 (09:02→13:15)
[2016-08-16] MEDS: GUAIFENESIN ER 600 MG TABLET.ER PO SCH (09:04)
--- NOTE | 2016-08-16 10:00 | PDOC ---
PULMONARY PROGRESS NOTES Subjective less cough Vitals Vital Signs Date Time Temp Pulse Resp B/P Pulse Ox O2 Delivery O2 Flow Rate FiO2 08/16/16 09:01 93 113/56 08/16/16 08:36 Nasal Cannula 2.0 08/16/16 07:00 97.4 19 98 97.4 General: Alert, No acute distress Lungs: Other (ant rhonchi) Cardiovascular: S1, S2 Abdomen: Soft Neuro Exam: Alert Extremities: Other (1=edema) Skin: Warm Labs Laboratory Tests Test 08/14/16 11:29 08/14/16 14:15 08/14/16 17:06 08/14/16 20:37 Glucose (Fingerstick) 176mg/dL (70-99) 96mg/dL (70-99) 193mg/dL (70-99) 189mg/dL (70-99) Test 08/15/16 10:44 08/15/16 11:51 08/15/16 13:45 08/15/16 17:02 Glucose (Fingerstick) 88mg/dL (70-99) 73mg/dL (70-99) 238mg/dL (70-99) Sodium Level 141mmol/L (136-145) Potassium Level 3.6mmol/L (3.5-5.1) Chloride Level 101mmol/L (98-107) Carbon Dioxide Level 31mmol/L (21-32) Anion Gap 9 (6-14) Blood Urea Nitrogen 10mg/dL (7-20) Creatinine 2.2mg/dL (0.6-1.0) Estimated GFR (Cockcroft-Gault) 21.3 Glucose Level 142mg/dL (70-99) Calcium Level 9.2mg/dL (8.5-10.1) Phosphorus Level 2.9mg/dL (2.6-4.7) Magnesium Level 1.5mg/dL (1.8-2.4) Albumin 3.5g/dL (3.4-5.0) Test 08/15/16 20:51 08/16/16 03:15 Glucose (Fingerstick) 121mg/dL (70-99) Sodium Level 140mmol/L (136-145) Potassium Level 4.0mmol/L (3.5-5.1) Chloride Level 101mmol/L (98-107) Carbon Dioxide Level 28mmol/L (21-32) Anion Gap 11 (6-14) Blood Urea Nitrogen 22mg/dL (7-20) Creatinine 3.3mg/dL (0.6-1.0) Estimated GFR (Cockcroft-Gault) 13.3 Glucose Level 62mg/dL (70-99) Calcium Level 9.2mg/dL (8.5-10.1) Phosphorus Level 4.2mg/dL (2.6-4.7) Magnesium Level 1.7mg/dL (1.8-2.4) Albumin 3.4g/dL (3.4-5.0) Laboratory Tests Test 08/15/16 10:44 08/15/16 11:51 08/15/16 13:45 08/15/16 17:02 Glucose (Fingerstick) 88mg/dL (70-99) 73mg/dL (70-99) 238mg/dL (70-99) Sodium Level 141mmol/L (136-145) Potassium Level 3.6mmol/L (3.5-5.1) Chloride Level 101mmol/L (98-107) Carbon Dioxide Level 31mmol/L (21-32) Anion Gap 9 (6-14) Blood Urea Nitrogen 10mg/dL (7-20) Creatinine 2.2mg/dL (0.6-1.0) Estimated GFR (Cockcroft-Gault) 21.3 Glucose Level 142mg/dL (70-99) Calcium Level 9.2mg/dL (8.5-10.1) Phosphorus Level 2.9mg/dL (2.6-4.7) Magnesium Level 1.5mg/dL (1.8-2.4) Albumin 3.5g/dL (3.4-5.0) Test 08/15/16 20:51 08/16/16 03:15 Glucose (Fingerstick) 121mg/dL (70-99) Sodium Level 140mmol/L (136-145) Potassium Level 4.0mmol/L (3.5-5.1) Chloride Level 101mmol/L (98-107) Carbon Dioxide Level 28mmol/L (21-32) Anion Gap 11 (6-14) Blood Urea Nitrogen 22mg/dL (7-20) Creatinine 3.3mg/dL (0.6-1.0) Estimated GFR (Cockcroft-Gault) 13.3 Glucose Level 62mg/dL (70-99) Calcium Level 9.2mg/dL (8.5-10.1) Phosphorus Level 4.2mg/dL (2.6-4.7) Magnesium Level 1.7mg/dL (1.8-2.4) Albumin 3.4g/dL (3.4-5.0) Medications Active Scripts Medications Dose Route/Sig Days Date Category Dose Instructions Doxycycline Hyclate 100 Mg Tablet 100 Mg PO BID 08/07/16 Rx Robitussin (Dextromethorphan HBr) 15 Mg Capsule 15 Mg PO TID PRN PRN 08/07/16 Rx Ondansetron Odt (Ondansetron) 4 Mg Tab.rapdis 1 Tab PO PRN Q8HRS PRN 08/05/16 Reported Sodium Polystyrene Sulfonate 15 Gm/60 Ml Oral.susp 30 Gm PO WEEKLY 08/05/16 Reported Novolog (Insulin Aspart) 100 Unit/1 Ml Cartridge 0 SQ 11/26/15 Reported sliding scale: 140 - 180 = 1 unit 181 - 240 = 2 units 241 - 300 = 3 units 301 - 400 = 4 units 401 - 500 = 5 units Lantus (Insulin Glargine,Hum.rec.anlog) 100 Unit/1 Ml Vial 25 Unit SQ HS 11/26/15 Reported Renvela (Sevelamer Carbonate) 2.4 Gm Powd.pack 2.4 Gm PO TID 11/26/15 Reported take with 20 oz cranberry juice Nephro-Roland Tablet (Folic Acid/Vitamin B Comp W-C) 0.8 Mg Tablet 1 Tab PO DAILYBFRSUP 11/26/15 Reported Vitamin D (Cholecalciferol (Vitamin D3)) 2,000 Unit Capsule 1 Cap PO HS 11/26/15 Reported Latanoprost 2.5 Ml Drops 1 Drop OP HS 11/26/15 Reported Hydralazine Hcl 25 Mg Tablet 1 Tab PO QTUTHSASU 11/26/15 Reported Allopurinol 100 Mg Tablet 1 Tab PO DAILYWSUP 11/26/15 Reported Cyclobenzaprine Hcl 10 Mg Tablet 1 Tab PO TID 11/26/15 Reported Diltiazem 24HR Cd (Diltiazem Hcl) 180 Mg Cap.er.24h 1 Cap PO DAILY 11/26/15 Reported Lasix (Furosemide) 80 Mg Tablet 1 Tab PO BID 11/26/15 Reported Carvedilol 25 Mg Tablet 12.5 Tab PO DAILYWLUN 11/26/15 Reported Aspir-Low (Aspirin) 81 Mg Tablet. 1 Tab PO DAILY 11/26/15 Reported Impression . 1. Paroxysmal coughing spells. The patient was admitted back on 08/06/2016. At that time, it was felt to be due to viral tracheobronchitis. At this juncture, I think it is multifactorial in nature . Possible bacterial bronchitis. possibly silent aspiration. No evidence of reflux or postnasal drainage. I reviewed her medication list, I do not see any medications that would be the culprit. No obvious CHF 2. Acute on chronic heart failure.EF 25% 3. Abnormal x-ray. 4. Bronchospasm, Plan . 1. Continue negative fluid balance. 2. Speech.f/u 3. steroid Nebs 4. clinically better 5. Antibiotic 6. Mucolytic ok with home GIAN SHAFFER MD Aug 16, 2016 10:00
[2016-08-16 10:39] VITALS: BP 111/59
--- NOTE | 2016-08-16 11:34 | PDOC ---
SUBJECTIVE ROS ESRD breathing better today, still coughing CVS: no Orthopnea, no CP RESP: no SOB, no EVANGELISTA GI: no Nausea, no Vomiting : no Dysuria, no Urgency OBJECTIVE Vital Signs Vital Signs Date Time Temp Pulse Resp B/P Pulse Ox O2 Delivery O2 Flow Rate FiO2 08/16/16 10:39 97.8 97 21 111/59 97 Nasal Cannula 2.0 97.8 I & 0 Intake and Output 08/16/16 06:59 Intake Total 850 ml Output Total 100 ml Balance 750 ml Intake Oral 850 ml Output Urine Total 100 ml PHYSICAL EXAM Physical Exam General Appearance: Awake Alert Oriented x 3 In no Distress Eyes: VIsion Unchanged Conjunctiva Normal EN: No EN Drainage Mucous Memb. moist Neck: no JVD + JVP Supple no Thyromegaly CVS: S1 S2 + Murmur No Gallop No Rub +3 Edema Resp: rare Rales + Rhonchi no Acc. Muscle use GI: BS +ve NO Bruit Non Tender Non Distended : no CVA tenderness; no Suprapubic Tenderness DIAGNOSIS/ASSESSMENT Assessment & Plan ESRD: Current fluid and E-lyte status does not necessitate emergent need for dialysis. Will re-evaluate for dialysis in the am and continue on MWF schedule. Anemia: no Epogen for hgb > 10; Transfuse with next HD as needed. Marginal BP: suspect due to Cardiomyopahty - defer to Cardiology to optimize Rx since Low BP will limit UF at OP HD Bone & Mineral: follow phos and alter binder regimen prn SOB : much improved after decreasing dry weight H/O CHF - EF 20-25 % noted edema - much improved with UF on HD Discussed Plan of Care and prognosis etc. at length with pt - OK to D/c From renal standpoint. Problems: COMMENT/RELEVANT DATA Meds Current Medications Medications (Trade) Dose Ordered Sig/Homa Start Time Stop Time Status Last Admin Dose Admin Acetaminophen (Tylenol) 500 mg 1X PRN PRN 08/15/16 07:45 08/16/16 07:44 DC Albumin Human (Albuminar) 200 ml @ 200 mls/hr 1X PRN PRN 08/15/16 07:45 08/15/16 13:44 DC Albuterol/ Ipratropium (Duoneb) 3 ml RTQID 08/14/16 18:00 08/16/16 07:36 3 ML Allopurinol (Zyloprim) 100 mg DAILYWSUP 08/13/16 17:00 08/15/16 18:17 100 MG Aspirin (Ecotrin) 81 mg DAILY 08/14/16 09:00 08/16/16 09:01 81 MG Barium Sulfate (Varibar Thin Liquid Apple) 148 gm 1X ONCE 08/15/16 12:15 08/15/16 12:16 DC 08/15/16 12:15 148 GM Budesonide (Pulmicort) 0.5 mg RTBID 08/14/16 18:00 08/16/16 07:37 0.5 MG Carvedilol (Coreg) 12.5 mg DAILYWLUN 08/13/16 12:00 08/15/16 13:48 12.5 MG Ceftriaxone Sodium/Sodium Chloride (Rocephin/Iv Sodium Chloride 0.9% 50ml) 50 ml @ 100 mls/hr Q24H 08/14/16 16:30 08/15/16 18:17 100 MLS/HR Clonidine HCl (Catapres) 0.1 mg 1X PRN PRN 08/14/16 09:30 08/15/16 09:29 DC Clonidine HCl 0.1 mg 0.1 mg 1X PRN PRN 08/15/16 07:45 08/16/16 07:44 DC Cyclobenzaprine HCl (Flexeril) 10 mg TID 08/13/16 10:00 08/16/16 09:01 10 MG Dextrose (Dextrose 50%-Water Syringe) 12.5 gm PRN Q15MIN PRN 08/13/16 09:45 Diltiazem HCl (Cardizem 24hr Cd) 180 mg DAILY 08/13/16 10:00 08/16/16 09:01 180 MG Diphenhydramine HCl (Benadryl) 25 mg 1X PRN PRN 08/15/16 07:45 08/16/16 07:44 DC Fentanyl Citrate (Fentanyl 2ml Vial) 50 mcg PRN Q2HR PRN 08/12/16 19:45 08/13/16 19:44 DC Furosemide (Lasix) 80 mg [id number] 08/13/16 14:00 08/13/16 14:00 DC Guaifenesin 600 mg 600 mg BID 08/14/16 21:00 08/16/16 09:04 600 MG Guaifenesin/ Codeine Phosphate (Robitussin Ac) 5 ml PRN Q6HRS PRN 08/13/16 09:45 08/15/16 13:49 5 ML Heparin Sodium (Porcine) 5000 unit 5,000 unit Q8HRS 08/13/16 14:00 08/16/16 06:28 5,000 UNIT Hydralazine HCl (Apresoline) 25 mg QTUTHSASU 08/14/16 16:00 08/14/16 15:17 25 MG Info (PHARMACY MONITORING -- do not chart) 1 each PRN DAILY PRN 08/15/16 07:45 Insulin Aspart (Novolog) 0-9 UNITS QIDACHS 08/13/16 16:30 08/15/16 18:16 5 UNITS Insulin Detemir (Levemir) 15 units QHS 08/14/16 21:00 08/15/16 20:59 15 UNITS Labetalol HCl (Normodyne) 10 mg PRN Q1HR PRN 08/15/16 07:45 08/16/16 07:44 DC Latanoprost (Xalatan) 1 drop HS 08/13/16 21:00 08/15/16 20:53 1 DROP Lidocaine HCl (Xylocaine-Mpf 1% Vial) 2 ml 1X ONCE 08/15/16 08:30 08/15/16 08:31 DC 08/15/16 08:30 2 ML Lidocaine HCl 2 ml 2 ml 1X ONCE 08/14/16 11:00 08/14/16 11:01 DC 08/14/16 10:54 2 ML Magnesium Sulfate/ Dextrose (Magnesium Sulfate PREMIX 2GM) 50 ml @ 25 mls/hr PRN DAILY PRN 08/13/16 13:15 Non-Formulary Medication 25 unit HS 08/13/16 21:00 08/13/16 21:00 DC Ondansetron HCl (Zofran) 4 mg PRN Q6HRS PRN 08/13/16 09:45 Potassium Chloride (Klor-Con) 40 meq 1X ONCE 08/14/16 09:00 08/14/16 09:00 DC Sevelamer Carbonate (Renvela) 2.4 gm TID 08/13/16 10:00 08/16/16 09:02 2.4 GM Sodium Polystyrene Sulfonate (Kayexalate) 30 gm WEEKLY 08/20/16 09:00 Sodium Chloride (Iv Sodium Chloride 0.9% 1000ml Bag) 1,000 ml @ 400 mls/hr Q2H30M PRN 08/15/16 07:34 08/15/16 19:33 DC Tramadol HCl (Ultram) 50 mg PRN Q6HRS PRN 08/13/16 09:45 Vitamin B Complex/ Vitamin C (Bela-Roland) 1 tab DAILYBFRSUP 08/13/16 17:00 08/15/16 18:17 1 TAB Vitamin D (Vitamin D3) 2,000 unit HS 08/13/16 21:00 08/15/16 20:53 2,000 UNIT Lab Laboratory Tests Test 08/15/16 11:51 08/15/16 13:45 08/15/16 17:02 08/15/16 20:51 Glucose (Fingerstick) 73mg/dL (70-99) 238mg/dL (70-99) 121mg/dL (70-99) Sodium Level 141mmol/L (136-145) Potassium Level 3.6mmol/L (3.5-5.1) Chloride Level 101mmol/L (98-107) Carbon Dioxide Level 31mmol/L (21-32) Anion Gap 9 (6-14) Blood Urea Nitrogen 10mg/dL (7-20) Creatinine 2.2mg/dL (0.6-1.0) Estimated GFR (Cockcroft-Gault) 21.3 Glucose Level 142mg/dL (70-99) Calcium Level 9.2mg/dL (8.5-10.1) Phosphorus Level 2.9mg/dL (2.6-4.7) Magnesium Level 1.5mg/dL (1.8-2.4) Albumin 3.5g/dL (3.4-5.0) Test 08/16/16 03:15 08/16/16 10:34 Sodium Level 140mmol/L (136-145) Potassium Level 4.0mmol/L (3.5-5.1) Chloride Level 101mmol/L (98-107) Carbon Dioxide Level 28mmol/L (21-32) Anion Gap 11 (6-14) Blood Urea Nitrogen 22mg/dL (7-20) Creatinine 3.3mg/dL (0.6-1.0) Estimated GFR (Cockcroft-Gault) 13.3 Glucose Level 62mg/dL (70-99) Calcium Level 9.2mg/dL (8.5-10.1) Phosphorus Level 4.2mg/dL (2.6-4.7) Magnesium Level 1.7mg/dL (1.8-2.4) Albumin 3.4g/dL (3.4-5.0) Glucose (Fingerstick) 147mg/dL (70-99) CHAO MOY MD Aug 16, 2016 11:34
[2016-08-16] MEDS ORDERED: INSU100I27 SQ (11:59)
[2016-08-16] MEDS ORDERED: AMOX1TAB11 PO (11:59)
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
[2016-08-16] MEDS ORDERED: AMOXICILLIN/K CLAV 500/125MG TABLET. PO SCH (13:00)
[2016-08-16] MEDS: CARVEDILOL 12.5 MG TABLET. PO SCH (13:15)
[2016-08-16] MEDS: GUAIFENESIN/CODEINE 100mg/10mg 5 ML LIQUID. PO PRN (13:23)
[2016-08-16 14:51] VITALS: BP 115/59
[2016-08-16 16:48] VITALS: BP 115/59
[2016-08-16] MEDS: HYDRALAZINE 25 MG TABLET PO SCH (16:48)
[2016-08-20] MEDS ORDERED: SODIUM POLYSTYRENE SULFONATE 15 GM/60 ML ORAL.SUSP. PO SCH (09:00)
== END 2016-08-16 17:19 | disposition home or self-care (01) | DRG 291 ==
LOC: ER 17:35 → 2 NORTH 18:57
PROVIDERS: ADMIT Internal Medicine Hematology & Oncology; ATTEND Internal Medicine Hematology & Oncology
PROC: 5A1D60Z (ICD-10-PCS; principal; 2016-08-13)
DX: I50.43 Acute on chronic combined systolic (congestive) and diastolic (congestive) heart failure (principal); N18.6 End stage renal disease; I13.2 Hypertensive heart and chronic kidney disease with heart failure and with stage 5 chronic kidney disease, or end stage renal disease; J98.11 Atelectasis; R65.10 Systemic inflammatory response syndrome (SIRS) of non-infectious origin without acute organ dysfunction; E10.22 Type 1 diabetes mellitus with diabetic chronic kidney disease; E10.649 Type 1 diabetes mellitus with hypoglycemia without coma; E10.65 Type 1 diabetes mellitus with hyperglycemia; E66.9 Obesity, unspecified; E78.00 Pure hypercholesterolemia, unspecified; I34.0 Nonrheumatic mitral (valve) insufficiency; I36.1 Nonrheumatic tricuspid (valve) insufficiency; E78.5 Hyperlipidemia, unspecified; E87.6 Hypokalemia; I25.10 Atherosclerotic heart disease of native coronary artery without angina pectoris; Z68.33 Body mass index [BMI] 33.0-33.9, adult; Z79.4 Long term (current) use of insulin; Z82.49 Family history of ischemic heart disease and other diseases of the circulatory system; Z95.1 Presence of aortocoronary bypass graft; Z99.2 Dependence on renal dialysis; Z99.3 Dependence on wheelchair; Z79.899 Other long term (current) drug therapy; Z88.5 Allergy status to narcotic agent
CPT/HCPCS: 36415; 71010; 74230; 80048; 80053; 80069; 82553; 82947; 83735; 83880; 84484; 85027; 93005; 93306; 93970; 94250; 94640; 94760; J0696; J1815; J7620; P9046; 92526; 92610; 92611; 97110; 97530; 97535; 99285-25

== ENCOUNTER 2017-05-02 11:56 | Inpatient (IN) | payer OTHER ==
[2017-05-02 12:46] LABS: ADD MAN DIFF? NO
[2017-05-02 12:52] LABS: BASO # 0.1 x10^3/uL (0.0-0.2); BASO % 1 % (0-3); EOS # 0.1 x10^3/uL (0.0-0.7); EOS % 0 % (0-3); HEMATOCRIT 33.9 % (36.0-47.0); HEMOGLOBIN 11.1 g/dL (12.0-15.5); LYMPH # 1.9 x10^3/uL (1.0-4.8); LYMPH % 15 % (24-48); MEAN CORPUSCULAR HEMOGLOBIN 36 pg (25-35); MEAN CORPUSCULAR HGB CONC 33 g/dL (31-37); MEAN CORPUSCULAR VOLUME 110 fL (79-100); MONO # 0.8 x10^3/uL (0.0-1.1); MONO % 6 % (0-9); NEUT % 78 % (31-73); PLATELET COUNT 120 x10^3/uL (140-400); RED BLOOD COUNT 3.09 x10^6/uL (3.50-5.40); RED CELL DISTRIBUTION WIDTH 15.7 % (11.5-14.5); WHITE BLOOD COUNT 12.8 x10^3/uL (4.0-11.0)
[2017-05-02 13:03] LABS: INR 1.4 (0.8-1.1); PROTHROMBIN TIME PATIENT 16.4 SEC (11.7-14.0)
[2017-05-02 13:19] LABS: ALBUMIN 2.9 g/dL (3.4-5.0); ALK PHOS 155 U/L (46-116); ALT (SGPT) 17 U/L (14-59); ANION GAP 16 (6-14); AST (SGOT) 31 U/L (15-37); BLOOD UREA NITROGEN 73 mg/dL (7-20); CALCIUM 7.7 mg/dL (8.5-10.1); CARBON DIOXIDE 25 mmol/L (21-32); CHLORIDE 93 mmol/L (98-107); CREATININE 7.6 mg/dL (0.6-1.0); DIRECT BILIRUBIN 0.3 mg/dL (0.0-0.2); GFR 5.1; GLUCOSE 95 mg/dL (70-99); LIPASE 96 U/L (73-393); MAGNESIUM 2.6 mg/dL (1.8-2.4); SODIUM 134 mmol/L (136-145); TOTAL PROTEIN 6.9 g/dL (6.4-8.2)
[2017-05-02 13:21] LABS: CKMB MASS 2.5 ng/mL (0.0-3.6); CREATINE KINASE 28 U/L (26-192)
[2017-05-02 13:22] LABS: TROPONINI 0.458 ng/mL (0.000-0.055)
[2017-05-02 13:23] LABS: NT-PRO BNP > 35000 pg/mL (0-449); THYROID STIM HORMONE (TSH) 1.914 uIU/mL (0.358-3.74)
[2017-05-02 13:23] LABS: POTASSIUM 6.3 mmol/L (3.5-5.1)
[2017-05-02] MEDS ORDERED: PIP/TAZO PER PHARMACY MC (14:00)
[2017-05-02] MEDS ORDERED: ONDANSETRON PF 4 MG/2 ML VIAL. IV (14:00)
[2017-05-02 14:05] LABS: POC GLUCOSE 59 mg/dL (70-99)
[2017-05-02] MEDS: VANCOMYCIN PER PHARMACY MC (14:12)
[2017-05-02] MEDS: VANCOMYCIN 1.5 GM in IV DEXTROSE 5 %-0.2 % NACL 500 ML IV (14:26)
[2017-05-02] MEDS: PIPERACILLIN/TAZO IV Push 3.375 GM VIAL. IVP (14:47)
[2017-05-02 14:52] LABS: POC GLUCOSE 88 mg/dL (70-99)
[2017-05-02] MEDS: IPRATRPIUM/ALBUTEROL 0.5/2.5MG 3 ML NEBU. NEB ×2 (16:26→21:00)
[2017-05-02] MEDS: LIDOCAINE (700MG/PATCH) PATCH. TP (16:30)
[2017-05-02] MEDS: ALLOPURINOL 100 MG TABLET. PO (16:30)
[2017-05-02 16:48] LABS: POC GLUCOSE 316 mg/dL (70-99)
[2017-05-02] MEDS: CHOLECALCIFEROL (VITAMIN D3) 1,000 UNIT TABLET PO (17:00)
[2017-05-02] MEDS: CYCLOBENZAPRINE 10 MG TABLET. PO ×2 (17:00→21:00)
[2017-05-02] MEDS: INSULIN ASPART 300 UNITS/3 ML INSULN.PEN SQ (17:00)
[2017-05-02] MEDS: CALCITRIOL 0.25 MCG CAPSULE. PO (17:00)
[2017-05-02] MEDS: FOLIC/VIT B COMP W-C (RENAL) TABLET. PO (17:00)
[2017-05-02] MEDS: SEVELAMER CARBONATE 2.4 GM PACKET. PO (17:00)
[2017-05-02] MEDS ORDERED: IV NORMAL SALINE 1000ML BAG 1,000 ML IV (17:38)
[2017-05-02] MEDS ORDERED: DIALYSIS PATIENT. MC ×2 (17:45)
[2017-05-02] MEDS: LATANOPROST 0.005% OPHTH SOLUTION 2.5ML BOTTLE. OU (21:00)
[2017-05-02] MEDS ORDERED: NON FORMULARY ITEM (Melatonin 6 MG) PO (21:00)
[2017-05-02] MEDS ORDERED: NON FORMULARY ITEM (Bimatoprost (Lumigan) 1 DROP) EACHEYE (21:00)
[2017-05-02 21:36] LABS: POC GLUCOSE 78 mg/dL (70-99)
[2017-05-02] MEDS: PIPERACILLIN/TAZO IV Push 2.25 GM VIAL. IVP (22:42)
[2017-05-02] MEDS: CARVEDILOL 12.5 MG TABLET. PO (22:43)
[2017-05-02] MEDS: ASPIRIN ENTERIC COATED 81 MG TABLET.DR. PO (22:43)
[2017-05-02] MEDS: AMITRIPTYLINE HCL 25 MG TABLET. PO (22:43)
[2017-05-02] MEDS: CINACALCET HCL 30 MG TABLET PO (22:43)
[2017-05-02] MEDS: DICLOFENAC SODIUM 1% TOPICAL GEL 100GM TUBE. TP ×2 (22:44→23:50)
[2017-05-02 23:17] LABS: TROPONINI 0.329 ng/mL (0.000-0.055)
[2017-05-03 03:15] LABS: ADD MAN DIFF? NO
[2017-05-03 03:30] LABS: BASO # 0.1 x10^3/uL (0.0-0.2); BASO % 1 % (0-3); EOS % 0 % (0-3); HEMATOCRIT 35.6 % (36.0-47.0); HEMOGLOBIN 11.5 g/dL (12.0-15.5); LYMPH # 1.7 x10^3/uL (1.0-4.8); LYMPH % 14 % (24-48); MEAN CORPUSCULAR HEMOGLOBIN 36 pg (25-35); MEAN CORPUSCULAR HGB CONC 32 g/dL (31-37); MEAN CORPUSCULAR VOLUME 111 fL (79-100); MONO # 0.7 x10^3/uL (0.0-1.1); MONO % 6 % (0-9); NEUT # 9.8 x10^3uL (1.8-7.7); NEUT % 79 % (31-73); PLATELET COUNT 124 x10^3/uL (140-400); RED BLOOD COUNT 3.21 x10^6/uL (3.50-5.40); RED CELL DISTRIBUTION WIDTH 15.6 % (11.5-14.5); WHITE BLOOD COUNT 12.3 x10^3/uL (4.0-11.0)
[2017-05-03 03:39] LABS: ANION GAP 10 (6-14); BLOOD UREA NITROGEN 28 mg/dL (7-20); CALCIUM 8.5 mg/dL (8.5-10.1); CARBON DIOXIDE 34 mmol/L (21-32); CHLORIDE 97 mmol/L (98-107); CREATININE 3.9 mg/dL (0.6-1.0); GLUCOSE 86 mg/dL (70-99); POTASSIUM 3.9 mmol/L (3.5-5.1); SODIUM 141 mmol/L (136-145)
[2017-05-03 03:48] LABS: TROPONINI 0.355 ng/mL (0.000-0.055)
[2017-05-03] MEDS: PIPERACILLIN/TAZO IV Push 2.25 GM VIAL. IVP ×3 (05:20→21:25)
[2017-05-03 08:25] LABS: POC GLUCOSE 192 mg/dL (70-99)
[2017-05-03] MEDS: ASPIRIN ENTERIC COATED 81 MG TABLET.DR. PO (08:55)
[2017-05-03] MEDS: DICLOFENAC SODIUM 1% TOPICAL GEL 100GM TUBE. TP ×4 (08:55→20:36)
[2017-05-03] MEDS: CARVEDILOL 12.5 MG TABLET. PO ×2 (08:56→17:00)
[2017-05-03] MEDS: CYCLOBENZAPRINE 10 MG TABLET. PO ×3 (08:56→20:36)
[2017-05-03] MEDS: CALCITRIOL 0.25 MCG CAPSULE. PO (08:56)
[2017-05-03] MEDS: ALLOPURINOL 100 MG TABLET. PO (08:56)
[2017-05-03] MEDS: CINACALCET HCL 30 MG TABLET PO (08:56)
[2017-05-03] MEDS: SEVELAMER CARBONATE 2.4 GM PACKET. PO ×3 (08:56→17:00)
[2017-05-03] MEDS: CHOLECALCIFEROL (VITAMIN D3) 1,000 UNIT TABLET PO (08:56)
[2017-05-03] MEDS: LACTOBACILLUS RHAMNOSUS GG 1 CAPSULE. PO ×2 (08:57→20:36)
[2017-05-03] MEDS: LIDOCAINE (700MG/PATCH) PATCH. TP (09:00)
[2017-05-03] MEDS: INSULIN ASPART 300 UNITS/3 ML INSULN.PEN SQ ×3 (09:02→17:00)
[2017-05-03] MEDS: INSULIN DETEMIR 300 UNITS/3 ML INSULN.PEN. SQ (09:03)
[2017-05-03] MEDS: IPRATRPIUM/ALBUTEROL 0.5/2.5MG 3 ML NEBU. NEB ×4 (10:02→20:54)
[2017-05-03] MEDS: traMADol 50 MG TABLET PO (10:29)
[2017-05-03] MEDS: VANCOMYCIN PER PHARMACY MC ×2 (10:43→16:14)
[2017-05-03] MEDS: FUROSEMIDE 40 MG/4 ML VIAL. IVP (11:30)
[2017-05-03 11:45] LABS: POC GLUCOSE 201 mg/dL (70-99)
[2017-05-03] MEDS ORDERED: IV NORMAL SALINE 1000ML BAG 1,000 ML IV (16:28)
[2017-05-03] MEDS ORDERED: ALBUMIN HUMAN 25% 200 ML IV (16:30)
[2017-05-03] MEDS ORDERED: DIALYSIS PATIENT. MC (16:30)
[2017-05-03] MEDS: FOLIC/VIT B COMP W-C (RENAL) TABLET. PO (17:00)
[2017-05-03] MEDS: VANCOMYCIN RANDOM LEVEL. MC (20:00)
[2017-05-03] MEDS: AMITRIPTYLINE HCL 25 MG TABLET. PO (20:36)
[2017-05-03] MEDS: LATANOPROST 0.005% OPHTH SOLUTION 2.5ML BOTTLE. OU (20:37)
[2017-05-03 22:15] LABS: MRSA BY PCR Negative (Negative)
[2017-05-03] MEDS: VANCOMYCIN 500 MG in IV NORMAL SALINE 100ML 100 ML IV (22:30)
[2017-05-04] MEDS: VANCOMYCIN PER PHARMACY MC ×2 (02:16→13:37)
[2017-05-04] MEDS: PIPERACILLIN/TAZO IV Push 2.25 GM VIAL. IVP ×3 (05:43→22:01)
[2017-05-04 05:46] LABS: ADD MAN DIFF? NO
[2017-05-04 06:19] LABS: BASO # 0.1 x10^3/uL (0.0-0.2); BASO % 1 % (0-3); EOS # 0.2 x10^3/uL (0.0-0.7); EOS % 2 % (0-3); HEMATOCRIT 30.4 % (36.0-47.0); HEMOGLOBIN 9.9 g/dL (12.0-15.5); LYMPH % 9 % (24-48); MEAN CORPUSCULAR HEMOGLOBIN 36 pg (25-35); MEAN CORPUSCULAR HGB CONC 33 g/dL (31-37); MEAN CORPUSCULAR VOLUME 111 fL (79-100); MONO # 0.7 x10^3/uL (0.0-1.1); MONO % 6 % (0-9); NEUT # 9.2 x10^3uL (1.8-7.7); NEUT % 83 % (31-73); PLATELET COUNT 97 x10^3/uL (140-400); RED BLOOD COUNT 2.74 x10^6/uL (3.50-5.40); RED CELL DISTRIBUTION WIDTH 15.7 % (11.5-14.5); WHITE BLOOD COUNT 11.1 x10^3/uL (4.0-11.0)
[2017-05-04 06:54] LABS: ALBUMIN 2.7 g/dL (3.4-5.0); ALBUMIN/GLOBULIN RATIO 0.9 (1.0-1.7); ALK PHOS 154 U/L (46-116); ALT (SGPT) 19 U/L (14-59); ANION GAP 9 (6-14); AST (SGOT) 23 U/L (15-37); BLOOD UREA NITROGEN 20 mg/dL (7-20); BUN/CREATININE RATIO 7 (6-20); CALCIUM 7.7 mg/dL (8.5-10.1); CARBON DIOXIDE 31 mmol/L (21-32); CHLORIDE 98 mmol/L (98-107); CREATININE 2.9 mg/dL (0.6-1.0); GFR 15.4; GLUCOSE 86 mg/dL (70-99); POTASSIUM 4.5 mmol/L (3.5-5.1); SODIUM 138 mmol/L (136-145); TOTAL PROTEIN 5.7 g/dL (6.4-8.2)
[2017-05-04] MEDS: IPRATRPIUM/ALBUTEROL 0.5/2.5MG 3 ML NEBU. NEB ×4 (07:15→19:22)
[2017-05-04] MEDS: INSULIN ASPART 300 UNITS/3 ML INSULN.PEN SQ ×3 (08:00→18:09)
[2017-05-04] MEDS: CARVEDILOL 12.5 MG TABLET. PO ×2 (08:00→18:05)
[2017-05-04 08:24] LABS: POC GLUCOSE 75 mg/dL (70-99)
[2017-05-04] MEDS: INSULIN DETEMIR 300 UNITS/3 ML INSULN.PEN. SQ (08:39)
[2017-05-04] MEDS: SEVELAMER CARBONATE 2.4 GM PACKET. PO ×3 (08:40→18:06)
[2017-05-04] MEDS: CALCITRIOL 0.25 MCG CAPSULE. PO (08:41)
[2017-05-04] MEDS: ASPIRIN ENTERIC COATED 81 MG TABLET.DR. PO (08:41)
[2017-05-04] MEDS: CYCLOBENZAPRINE 10 MG TABLET. PO ×3 (08:41→21:00)
[2017-05-04] MEDS: CINACALCET HCL 30 MG TABLET PO (08:41)
[2017-05-04] MEDS: ALLOPURINOL 100 MG TABLET. PO (08:41)
[2017-05-04] MEDS: CHOLECALCIFEROL (VITAMIN D3) 1,000 UNIT TABLET PO (08:41)
[2017-05-04] MEDS: DICLOFENAC SODIUM 1% TOPICAL GEL 100GM TUBE. TP ×4 (08:43→22:00)
[2017-05-04] MEDS: LIDOCAINE (700MG/PATCH) PATCH. TP (08:43)
[2017-05-04] MEDS: LACTOBACILLUS RHAMNOSUS GG 1 CAPSULE. PO ×2 (08:43→22:00)
[2017-05-04] MEDS: FUROSEMIDE 40 MG/4 ML VIAL. IVP (09:00)
[2017-05-04 11:48] LABS: POC GLUCOSE 138 mg/dL (70-99)
[2017-05-04 14:17] LABS: BASE EXCESS ABG 6 mmol/L (-3-3); HCO3 ABG 30 mmol/L (21-28); PCO2 ABG 38 mmHg (35-46); PH ABG 7.51 (7.35-7.45); PO2 ABG 51 mmHg (65-108); SAT O2 ABG 88 % (92-99)
[2017-05-04 14:21] LABS: FIO2 ABG 21
[2017-05-04] MEDS: VANCOMYCIN 500 MG in IV NORMAL SALINE 100ML 100 ML IV (16:00)
[2017-05-04 17:24] LABS: POC GLUCOSE 125 mg/dL (70-99)
[2017-05-04] MEDS: FOLIC/VIT B COMP W-C (RENAL) TABLET. PO (18:05)
[2017-05-04 20:11] LABS: POC GLUCOSE 69 mg/dL (70-99)
[2017-05-04 21:13] LABS: POC GLUCOSE 60 mg/dL (70-99)
[2017-05-04 21:36] LABS: POC GLUCOSE 97 mg/dL (70-99)
[2017-05-04] MEDS: AMITRIPTYLINE HCL 25 MG TABLET. PO (21:59)
[2017-05-04] MEDS: LATANOPROST 0.005% OPHTH SOLUTION 2.5ML BOTTLE. OU (22:00)
[2017-05-05 05:38] LABS: ADD MAN DIFF? NO
[2017-05-05 05:52] LABS: BASO # 0.1 x10^3/uL (0.0-0.2); BASO % 1 % (0-3); EOS # 0.3 x10^3/uL (0.0-0.7); EOS % 3 % (0-3); HEMATOCRIT 31.3 % (36.0-47.0); HEMOGLOBIN 10.3 g/dL (12.0-15.5); LYMPH # 1.6 x10^3/uL (1.0-4.8); LYMPH % 17 % (24-48); MEAN CORPUSCULAR HEMOGLOBIN 36 pg (25-35); MEAN CORPUSCULAR HGB CONC 33 g/dL (31-37); MEAN CORPUSCULAR VOLUME 111 fL (79-100); MONO # 0.7 x10^3/uL (0.0-1.1); MONO % 7 % (0-9); NEUT # 6.6 x10^3uL (1.8-7.7); NEUT % 71 % (31-73); PLATELET COUNT 84 x10^3/uL (140-400); RED BLOOD COUNT 2.83 x10^6/uL (3.50-5.40); RED CELL DISTRIBUTION WIDTH 15.8 % (11.5-14.5); WHITE BLOOD COUNT 9.3 x10^3/uL (4.0-11.0)
[2017-05-05] MEDS: PIPERACILLIN/TAZO IV Push 2.25 GM VIAL. IVP ×3 (06:14→21:30)
[2017-05-05 06:32] LABS: ALBUMIN 2.4 g/dL (3.4-5.0); ALBUMIN/GLOBULIN RATIO 0.7 (1.0-1.7); ALK PHOS 127 U/L (46-116); ALT (SGPT) 16 U/L (14-59); ANION GAP 10 (6-14); AST (SGOT) 19 U/L (15-37); BLOOD UREA NITROGEN 32 mg/dL (7-20); BUN/CREATININE RATIO 8 (6-20); CALCIUM 8.1 mg/dL (8.5-10.1); CARBON DIOXIDE 31 mmol/L (21-32); CHLORIDE 96 mmol/L (98-107); CREATININE 4.1 mg/dL (0.6-1.0); GFR 10.3; GLUCOSE 103 mg/dL (70-99); POTASSIUM 5.1 mmol/L (3.5-5.1); SODIUM 137 mmol/L (136-145); TOTAL BILIRUBIN 0.9 mg/dL (0.2-1.0); TOTAL PROTEIN 5.9 g/dL (6.4-8.2)
[2017-05-05] MEDS: IPRATRPIUM/ALBUTEROL 0.5/2.5MG 3 ML NEBU. NEB ×4 (07:29→19:41)
[2017-05-05] MEDS: INSULIN ASPART 300 UNITS/3 ML INSULN.PEN SQ ×3 (08:00→17:00)
[2017-05-05] MEDS: CARVEDILOL 12.5 MG TABLET. PO ×2 (08:00→17:00)
[2017-05-05 08:11] LABS: POC GLUCOSE 106 mg/dL (70-99)
[2017-05-05] MEDS: LACTOBACILLUS RHAMNOSUS GG 1 CAPSULE. PO ×2 (09:48→21:31)
[2017-05-05] MEDS: DICLOFENAC SODIUM 1% TOPICAL GEL 100GM TUBE. TP ×4 (09:48→21:31)
[2017-05-05] MEDS: INSULIN DETEMIR 300 UNITS/3 ML INSULN.PEN. SQ (09:48)
[2017-05-05] MEDS: ASPIRIN ENTERIC COATED 81 MG TABLET.DR. PO (09:49)
[2017-05-05] MEDS: CYCLOBENZAPRINE 10 MG TABLET. PO ×3 (09:49→21:31)
[2017-05-05] MEDS: CHOLECALCIFEROL (VITAMIN D3) 1,000 UNIT TABLET PO (09:49)
[2017-05-05] MEDS: SEVELAMER CARBONATE 2.4 GM PACKET. PO ×3 (09:49→18:50)
[2017-05-05] MEDS: ALLOPURINOL 100 MG TABLET. PO (09:49)
[2017-05-05] MEDS: CINACALCET HCL 30 MG TABLET PO (09:49)
[2017-05-05] MEDS: CALCITRIOL 0.25 MCG CAPSULE. PO (09:49)
[2017-05-05] MEDS: LIDOCAINE (700MG/PATCH) PATCH. TP (09:49)
[2017-05-05] MEDS ORDERED: NOREPINEPHRIN PREMIX 250 ML IV (10:00)
[2017-05-05 10:34] LABS: BASE EXCESS ABG 2 mmol/L (-3-3); HCO3 ABG 25 mmol/L (21-28); PCO2 ABG 34 mmHg (35-46); PH ABG 7.48 (7.35-7.45); PO2 ABG 61 mmHg (65-108); SAT O2 ABG 91 % (92-99)
[2017-05-05 13:12] LABS: POC GLUCOSE 181 mg/dL (70-99)
[2017-05-05] MEDS ORDERED: ONDANSETRON PF 4 MG/2 ML VIAL. (15:18)
[2017-05-05] MEDS: ONDANSETRON PF 4 MG/2 ML VIAL. IV (15:23)
[2017-05-05] MEDS: ALBUMIN HUMAN 25% 100 ML IV (15:58)
[2017-05-05] MEDS ORDERED: DIALYSIS PATIENT. MC ×2 (16:00)
[2017-05-05] MEDS ORDERED: IV NORMAL SALINE 1000ML BAG 1,000 ML IV ×2 (16:00)
[2017-05-05] MEDS: FOLIC/VIT B COMP W-C (RENAL) TABLET. PO (17:00)
[2017-05-05 17:44] LABS: POC GLUCOSE 80 mg/dL (70-99)
[2017-05-05] MEDS: LATANOPROST 0.005% OPHTH SOLUTION 2.5ML BOTTLE. OU (21:31)
[2017-05-05] MEDS: AMITRIPTYLINE HCL 25 MG TABLET. PO (21:31)
[2017-05-05] MEDS: ALBUTEROL SULFATE 2.5 MG/3 ML NEBU. NEB (23:14)
[2017-05-06 05:36] LABS: ADD MAN DIFF? NO
[2017-05-06 05:40] LABS: HEMATOCRIT 33.1 % (36.0-47.0); HEMOGLOBIN 10.8 g/dL (12.0-15.5); MEAN CORPUSCULAR VOLUME 113 fL (79-100); RED BLOOD COUNT 2.95 x10^6/uL (3.50-5.40); WHITE BLOOD COUNT 10.4 x10^3/uL (4.0-11.0)
[2017-05-06 05:41] LABS: BASO # 0.1 x10^3/uL (0.0-0.2); BASO % 1 % (0-3); EOS # 0.3 x10^3/uL (0.0-0.7); EOS % 3 % (0-3); LYMPH # 1.2 x10^3/uL (1.0-4.8); LYMPH % 12 % (24-48); MEAN CORPUSCULAR HEMOGLOBIN 37 pg (25-35); MEAN CORPUSCULAR HGB CONC 33 g/dL (31-37); MONO # 0.8 x10^3/uL (0.0-1.1); MONO % 8 % (0-9); NEUT # 7.9 x10^3uL (1.8-7.7); NEUT % 76 % (31-73); PLATELET COUNT 93 x10^3/uL (140-400); RED CELL DISTRIBUTION WIDTH 15.9 % (11.5-14.5)
[2017-05-06] MEDS: PIPERACILLIN/TAZO IV Push 2.25 GM VIAL. IVP ×3 (05:50→22:34)
[2017-05-06 06:07] LABS: ALBUMIN 2.8 g/dL (3.4-5.0); ALBUMIN/GLOBULIN RATIO 0.8 (1.0-1.7); ALK PHOS 147 U/L (46-116); ALT (SGPT) 15 U/L (14-59); ANION GAP 8 (6-14); AST (SGOT) 17 U/L (15-37); BLOOD UREA NITROGEN 20 mg/dL (7-20); BUN/CREATININE RATIO 7 (6-20); CALCIUM 8.6 mg/dL (8.5-10.1); CARBON DIOXIDE 31 mmol/L (21-32); CHLORIDE 100 mmol/L (98-107); GFR 14.8; GLUCOSE 109 mg/dL (70-99); POTASSIUM 4.4 mmol/L (3.5-5.1); SODIUM 139 mmol/L (136-145); TOTAL BILIRUBIN 0.8 mg/dL (0.2-1.0); TOTAL PROTEIN 6.4 g/dL (6.4-8.2)
[2017-05-06] MEDS: INSULIN ASPART 300 UNITS/3 ML INSULN.PEN SQ ×3 (08:00→17:13)
[2017-05-06] MEDS: CARVEDILOL 12.5 MG TABLET. PO ×2 (08:00→17:00)
[2017-05-06] MEDS: CINACALCET HCL 30 MG TABLET PO (08:07)
[2017-05-06] MEDS: SEVELAMER CARBONATE 2.4 GM PACKET. PO ×3 (08:08→17:05)
[2017-05-06] MEDS: ASPIRIN ENTERIC COATED 81 MG TABLET.DR. PO (08:08)
[2017-05-06] MEDS: CHOLECALCIFEROL (VITAMIN D3) 1,000 UNIT TABLET PO (08:08)
[2017-05-06] MEDS: LACTOBACILLUS RHAMNOSUS GG 1 CAPSULE. PO ×2 (08:08→20:45)
[2017-05-06] MEDS: CYCLOBENZAPRINE 10 MG TABLET. PO ×3 (08:08→20:45)
[2017-05-06] MEDS: ALLOPURINOL 100 MG TABLET. PO (08:08)
[2017-05-06] MEDS: CALCITRIOL 0.25 MCG CAPSULE. PO (08:08)
[2017-05-06] MEDS: INSULIN DETEMIR 300 UNITS/3 ML INSULN.PEN. SQ (08:12)
[2017-05-06] MEDS: DICLOFENAC SODIUM 1% TOPICAL GEL 100GM TUBE. TP ×4 (08:13→20:45)
[2017-05-06] MEDS: LIDOCAINE (700MG/PATCH) PATCH. TP (08:13)
[2017-05-06 08:24] LABS: POC GLUCOSE 90 mg/dL (70-99)
[2017-05-06] MEDS ORDERED: ACETAMINOPHEN 500 MG TABLET PO (08:30)
[2017-05-06] MEDS: IPRATRPIUM/ALBUTEROL 0.5/2.5MG 3 ML NEBU. NEB ×4 (08:59→19:57)
[2017-05-06] MEDS: VANCOMYCIN PER PHARMACY MC (11:25)
[2017-05-06] MEDS ORDERED: DIALYSIS PATIENT. MC ×2 (11:45)
[2017-05-06] MEDS: ALBUMIN HUMAN 25% 100 ML IV (12:33)
[2017-05-06 13:05] LABS: POC GLUCOSE 119 mg/dL (70-99)
[2017-05-06] MEDS: FOLIC/VIT B COMP W-C (RENAL) TABLET. PO (17:05)
[2017-05-06] MEDS: VANCOMYCIN 500 MG in IV NORMAL SALINE 100ML 100 ML IV (17:06)
[2017-05-06 17:23] LABS: POC GLUCOSE 201 mg/dL (70-99)
[2017-05-06] MEDS: traMADol 50 MG TABLET PO (19:08)
[2017-05-06] MEDS: LATANOPROST 0.005% OPHTH SOLUTION 2.5ML BOTTLE. OU (20:45)
[2017-05-06] MEDS: AMITRIPTYLINE HCL 25 MG TABLET. PO (20:45)
[2017-05-06 21:09] LABS: POC GLUCOSE 94 mg/dL (70-99)
[2017-05-07] MEDS: PIPERACILLIN/TAZO IV Push 2.25 GM VIAL. IVP (05:31)
[2017-05-07] MEDS ORDERED: IV NORMAL SALINE 1000ML BAG 1,000 ML IV (07:32)
[2017-05-07] MEDS: IPRATRPIUM/ALBUTEROL 0.5/2.5MG 3 ML NEBU. NEB ×4 (07:41→19:37)
[2017-05-07] MEDS ORDERED: DIALYSIS PATIENT. MC ×2 (07:45)
[2017-05-07] MEDS: CARVEDILOL 12.5 MG TABLET. PO ×2 (08:00→16:16)
[2017-05-07 08:05] LABS: ADD MAN DIFF? NO
[2017-05-07 08:10] LABS: BASO # 0.1 x10^3/uL (0.0-0.2); BASO % 1 % (0-3); EOS # 0.3 x10^3/uL (0.0-0.7); EOS % 3 % (0-3); LYMPH # 1.4 x10^3/uL (1.0-4.8); LYMPH % 14 % (24-48); MEAN CORPUSCULAR HEMOGLOBIN 37 pg (25-35); MEAN CORPUSCULAR HGB CONC 32 g/dL (31-37); MEAN CORPUSCULAR VOLUME 113 fL (79-100); MONO # 0.8 x10^3/uL (0.0-1.1); MONO % 8 % (0-9); NEUT # 7.2 x10^3uL (1.8-7.7); NEUT % 74 % (31-73); PLATELET COUNT 82 x10^3/uL (140-400); RED CELL DISTRIBUTION WIDTH 16.4 % (11.5-14.5); WHITE BLOOD COUNT 9.7 x10^3/uL (4.0-11.0)
[2017-05-07] MEDS: ASPIRIN ENTERIC COATED 81 MG TABLET.DR. PO (08:17)
[2017-05-07] MEDS: SEVELAMER CARBONATE 2.4 GM PACKET. PO ×3 (08:17→17:15)
[2017-05-07] MEDS: CHOLECALCIFEROL (VITAMIN D3) 1,000 UNIT TABLET PO (08:17)
[2017-05-07] MEDS: CALCITRIOL 0.25 MCG CAPSULE. PO (08:17)
[2017-05-07] MEDS: CYCLOBENZAPRINE 10 MG TABLET. PO ×3 (08:17→21:09)
[2017-05-07] MEDS: LACTOBACILLUS RHAMNOSUS GG 1 CAPSULE. PO ×2 (08:17→21:09)
[2017-05-07] MEDS: CINACALCET HCL 30 MG TABLET PO (08:17)
[2017-05-07] MEDS: LIDOCAINE (700MG/PATCH) PATCH. TP (08:18)
[2017-05-07] MEDS: DICLOFENAC SODIUM 1% TOPICAL GEL 100GM TUBE. TP ×5 (08:19→21:09)
[2017-05-07] MEDS: INSULIN ASPART 300 UNITS/3 ML INSULN.PEN SQ ×3 (08:21→17:00)
[2017-05-07] MEDS: INSULIN DETEMIR 300 UNITS/3 ML INSULN.PEN. SQ (08:22)
[2017-05-07] MEDS: ALLOPURINOL 100 MG TABLET. PO (08:27)
[2017-05-07 08:44] LABS: POC GLUCOSE 215 mg/dL (70-99)
[2017-05-07 09:06] LABS: ALBUMIN/GLOBULIN RATIO 0.9 (1.0-1.7); ALK PHOS 144 U/L (46-116); ALT (SGPT) 14 U/L (14-59); ANION GAP 10 (6-14); AST (SGOT) 17 U/L (15-37); BLOOD UREA NITROGEN 21 mg/dL (7-20); BUN/CREATININE RATIO 7 (6-20); CALCIUM 9.1 mg/dL (8.5-10.1); CARBON DIOXIDE 30 mmol/L (21-32); CHLORIDE 99 mmol/L (98-107); CREATININE 3.1 mg/dL (0.6-1.0); GFR 14.3; GLUCOSE 225 mg/dL (70-99); POTASSIUM 4.6 mmol/L (3.5-5.1); SODIUM 139 mmol/L (136-145); TOTAL BILIRUBIN 0.9 mg/dL (0.2-1.0); TOTAL PROTEIN 6.5 g/dL (6.4-8.2)
[2017-05-07] MEDS: cefTRIAXone IV Push 1 GM VIAL. IVP (11:12)
[2017-05-07 12:32] LABS: POC GLUCOSE 199 mg/dL (70-99)
[2017-05-07] MEDS: FOLIC/VIT B COMP W-C (RENAL) TABLET. PO (17:15)
[2017-05-07 17:30] LABS: POC GLUCOSE 96 mg/dL (70-99)
[2017-05-07] MEDS: AMITRIPTYLINE HCL 25 MG TABLET. PO (21:09)
[2017-05-07] MEDS: LATANOPROST 0.005% OPHTH SOLUTION 2.5ML BOTTLE. OU (21:10)
[2017-05-07 21:18] LABS: POC GLUCOSE 188 mg/dL (70-99)
[2017-05-08] MEDS: IPRATRPIUM/ALBUTEROL 0.5/2.5MG 3 ML NEBU. NEB ×4 (07:33→20:09)
[2017-05-08] MEDS: CARVEDILOL 12.5 MG TABLET. PO ×2 (08:00→17:32)
[2017-05-08] MEDS: SEVELAMER CARBONATE 2.4 GM PACKET. PO ×3 (08:00→17:32)
[2017-05-08] MEDS: INSULIN ASPART 300 UNITS/3 ML INSULN.PEN SQ ×3 (08:00→17:38)
[2017-05-08 08:01] LABS: ADD MAN DIFF? NO
[2017-05-08 08:21] LABS: BASO % 0 % (0-3); EOS # 0.4 x10^3/uL (0.0-0.7); EOS % 3 % (0-3); HEMATOCRIT 34.4 % (36.0-47.0); HEMOGLOBIN 11.1 g/dL (12.0-15.5); LYMPH # 1.5 x10^3/uL (1.0-4.8); LYMPH % 13 % (24-48); MEAN CORPUSCULAR HEMOGLOBIN 36 pg (25-35); MEAN CORPUSCULAR HGB CONC 32 g/dL (31-37); MEAN CORPUSCULAR VOLUME 112 fL (79-100); MONO # 0.8 x10^3/uL (0.0-1.1); MONO % 7 % (0-9); NEUT % 77 % (31-73); PLATELET COUNT 97 x10^3/uL (140-400); RED BLOOD COUNT 3.07 x10^6/uL (3.50-5.40); RED CELL DISTRIBUTION WIDTH 16.4 % (11.5-14.5); WHITE BLOOD COUNT 11.7 x10^3/uL (4.0-11.0)
[2017-05-08 08:24] LABS: ALBUMIN/GLOBULIN RATIO 0.8 (1.0-1.7); ALK PHOS 155 U/L (46-116); ALT (SGPT) 12 U/L (14-59); ANION GAP 14 (6-14); AST (SGOT) 15 U/L (15-37); BLOOD UREA NITROGEN 33 mg/dL (7-20); BUN/CREATININE RATIO 8 (6-20); CALCIUM 9.2 mg/dL (8.5-10.1); CARBON DIOXIDE 28 mmol/L (21-32); CHLORIDE 97 mmol/L (98-107); CREATININE 4.3 mg/dL (0.6-1.0); GFR 9.8; GLUCOSE 114 mg/dL (70-99); POTASSIUM 4.6 mmol/L (3.5-5.1); SODIUM 139 mmol/L (136-145); TOTAL BILIRUBIN 0.8 mg/dL (0.2-1.0); TOTAL PROTEIN 6.9 g/dL (6.4-8.2)
[2017-05-08] MEDS ORDERED: LIDOCAINE 1% PF 2 ML VIAL. (08:56)
[2017-05-08] MEDS: DICLOFENAC SODIUM 1% TOPICAL GEL 100GM TUBE. TP ×4 (09:00→20:50)
[2017-05-08] MEDS: CYCLOBENZAPRINE 10 MG TABLET. PO ×3 (09:00→20:50)
[2017-05-08] MEDS: LIDOCAINE 1% PF 2 ML VIAL. INJ (09:00)
[2017-05-08] MEDS: LACTOBACILLUS RHAMNOSUS GG 1 CAPSULE. PO ×2 (09:00→20:50)
[2017-05-08 11:57] LABS: PLT ESTIMATE DECREASED (ADEQUATE)
[2017-05-08 11:58] LABS: HYPOCHROMIA SLIGHT
[2017-05-08 12:44] LABS: POC GLUCOSE 116 mg/dL (70-99)
[2017-05-08] MEDS: CALCITRIOL 0.25 MCG CAPSULE. PO (13:14)
[2017-05-08] MEDS: ALLOPURINOL 100 MG TABLET. PO (13:14)
[2017-05-08] MEDS: CHOLECALCIFEROL (VITAMIN D3) 1,000 UNIT TABLET PO (13:14)
[2017-05-08] MEDS: CINACALCET HCL 30 MG TABLET PO (13:14)
[2017-05-08] MEDS: ASPIRIN ENTERIC COATED 81 MG TABLET.DR. PO (13:14)
[2017-05-08] MEDS: LIDOCAINE (700MG/PATCH) PATCH. TP (13:15)
[2017-05-08] MEDS: cefTRIAXone IV Push 1 GM VIAL. IVP (13:15)
[2017-05-08] MEDS: INSULIN DETEMIR 300 UNITS/3 ML INSULN.PEN. SQ (13:34)
[2017-05-08 13:36] LABS: POC GLUCOSE 117 mg/dL (70-99)
[2017-05-08] MEDS ORDERED: VANCOMYCIN 500 MG in IV NORMAL SALINE 100ML 100 ML IV (16:00)
[2017-05-08 16:50] LABS: POC GLUCOSE 195 mg/dL (70-99)
[2017-05-08] MEDS: FOLIC/VIT B COMP W-C (RENAL) TABLET. PO (17:31)
[2017-05-08] MEDS: AMITRIPTYLINE HCL 25 MG TABLET. PO (20:50)
[2017-05-08] MEDS: LATANOPROST 0.005% OPHTH SOLUTION 2.5ML BOTTLE. OU (20:50)
[2017-05-08 21:06] LABS: POC GLUCOSE 158 mg/dL (70-99)
[2017-05-09 06:41] LABS: ADD MAN DIFF? NO
[2017-05-09 06:49] LABS: BASO # 0.1 x10^3/uL (0.0-0.2); BASO % 1 % (0-3); EOS # 0.3 x10^3/uL (0.0-0.7); EOS % 3 % (0-3); HEMATOCRIT 32.9 % (36.0-47.0); HEMOGLOBIN 10.8 g/dL (12.0-15.5); LYMPH # 1.4 x10^3/uL (1.0-4.8); LYMPH % 15 % (24-48); MEAN CORPUSCULAR HEMOGLOBIN 37 pg (25-35); MEAN CORPUSCULAR HGB CONC 33 g/dL (31-37); MEAN CORPUSCULAR VOLUME 113 fL (79-100); MONO # 0.8 x10^3/uL (0.0-1.1); MONO % 9 % (0-9); NEUT # 6.9 x10^3uL (1.8-7.7); NEUT % 73 % (31-73); PLATELET COUNT 97 x10^3/uL (140-400); RED BLOOD COUNT 2.92 x10^6/uL (3.50-5.40); RED CELL DISTRIBUTION WIDTH 16.9 % (11.5-14.5); WHITE BLOOD COUNT 9.6 x10^3/uL (4.0-11.0)
[2017-05-09 07:14] LABS: ALBUMIN 2.8 g/dL (3.4-5.0); ALBUMIN/GLOBULIN RATIO 0.8 (1.0-1.7); ALK PHOS 151 U/L (46-116); ALT (SGPT) 13 U/L (14-59); ANION GAP 6 (6-14); AST (SGOT) 17 U/L (15-37); BLOOD UREA NITROGEN 23 mg/dL (7-20); BUN/CREATININE RATIO 8 (6-20); CALCIUM 9.7 mg/dL (8.5-10.1); CARBON DIOXIDE 32 mmol/L (21-32); CHLORIDE 102 mmol/L (98-107); GFR 14.8; GLUCOSE 83 mg/dL (70-99); POTASSIUM 4.3 mmol/L (3.5-5.1); SODIUM 140 mmol/L (136-145); TOTAL BILIRUBIN 0.9 mg/dL (0.2-1.0); TOTAL PROTEIN 6.3 g/dL (6.4-8.2)
[2017-05-09] MEDS: IPRATRPIUM/ALBUTEROL 0.5/2.5MG 3 ML NEBU. NEB ×2 (07:41→11:28)
[2017-05-09 08:06] LABS: POC GLUCOSE 80 mg/dL (70-99)
[2017-05-09] MEDS: ALLOPURINOL 100 MG TABLET. PO (08:08)
[2017-05-09] MEDS: CALCITRIOL 0.25 MCG CAPSULE. PO (08:08)
[2017-05-09] MEDS: ASPIRIN ENTERIC COATED 81 MG TABLET.DR. PO (08:09)
[2017-05-09] MEDS: LACTOBACILLUS RHAMNOSUS GG 1 CAPSULE. PO ×2 (08:09→20:33)
[2017-05-09] MEDS: CHOLECALCIFEROL (VITAMIN D3) 1,000 UNIT TABLET PO (08:09)
[2017-05-09] MEDS: CARVEDILOL 12.5 MG TABLET. PO ×2 (08:09→17:04)
[2017-05-09] MEDS: CINACALCET HCL 30 MG TABLET PO (08:10)
[2017-05-09] MEDS: CYCLOBENZAPRINE 10 MG TABLET. PO ×3 (08:10→20:33)
[2017-05-09] MEDS: LIDOCAINE (700MG/PATCH) PATCH. TP (08:10)
[2017-05-09] MEDS: SEVELAMER CARBONATE 2.4 GM PACKET. PO ×3 (08:11→17:03)
[2017-05-09] MEDS: INSULIN ASPART 300 UNITS/3 ML INSULN.PEN SQ ×3 (08:12→17:10)
[2017-05-09] MEDS: DICLOFENAC SODIUM 1% TOPICAL GEL 100GM TUBE. TP ×4 (08:13→20:33)
[2017-05-09 08:16] LABS: PROCALCITONIN 0.21 ng/mL (0.00-0.10)
[2017-05-09] MEDS: INSULIN DETEMIR 300 UNITS/3 ML INSULN.PEN. SQ (08:19)
[2017-05-09] MEDS: cefTRIAXone IV Push 1 GM VIAL. IVP (11:15)
[2017-05-09 11:44] LABS: POC GLUCOSE 208 mg/dL (70-99)
[2017-05-09 16:38] LABS: POC GLUCOSE 164 mg/dL (70-99)
[2017-05-09] MEDS: FOLIC/VIT B COMP W-C (RENAL) TABLET. PO (17:02)
[2017-05-09] MEDS: AMITRIPTYLINE HCL 25 MG TABLET. PO (20:33)
[2017-05-09] MEDS: LATANOPROST 0.005% OPHTH SOLUTION 2.5ML BOTTLE. OU (20:33)
[2017-05-09 20:54] LABS: POC GLUCOSE 119 mg/dL (70-99)
[2017-05-10] MEDS: INSULIN ASPART 300 UNITS/3 ML INSULN.PEN SQ ×3 (08:00→17:00)
[2017-05-10] MEDS: CARVEDILOL 12.5 MG TABLET. PO ×2 (08:00→17:00)
[2017-05-10 08:05] LABS: POC GLUCOSE 59 mg/dL (70-99)
[2017-05-10 08:05] LABS: POC GLUCOSE 81 mg/dL (70-99)
[2017-05-10 08:08] LABS: ADD MAN DIFF? NO
[2017-05-10 08:25] LABS: BASO # 0.1 x10^3/uL (0.0-0.2); BASO % 1 % (0-3); EOS # 0.4 x10^3/uL (0.0-0.7); EOS % 4 % (0-3); HEMATOCRIT 31.8 % (36.0-47.0); HEMOGLOBIN 10.4 g/dL (12.0-15.5); LYMPH # 1.5 x10^3/uL (1.0-4.8); LYMPH % 14 % (24-48); MEAN CORPUSCULAR HEMOGLOBIN 37 pg (25-35); MEAN CORPUSCULAR HGB CONC 33 g/dL (31-37); MEAN CORPUSCULAR VOLUME 113 fL (79-100); MONO # 0.9 x10^3/uL (0.0-1.1); MONO % 8 % (0-9); NEUT # 7.9 x10^3uL (1.8-7.7); NEUT % 73 % (31-73); PLATELET COUNT 101 x10^3/uL (140-400); RED BLOOD COUNT 2.81 x10^6/uL (3.50-5.40); RED CELL DISTRIBUTION WIDTH 17.5 % (11.5-14.5); WHITE BLOOD COUNT 10.8 x10^3/uL (4.0-11.0)
[2017-05-10 08:38] LABS: ALBUMIN 2.8 g/dL (3.4-5.0); ALBUMIN/GLOBULIN RATIO 0.8 (1.0-1.7); ALK PHOS 155 U/L (46-116); ANION GAP 9 (6-14); AST (SGOT) 12 U/L (15-37); BLOOD UREA NITROGEN 42 mg/dL (7-20); BUN/CREATININE RATIO 10 (6-20); CALCIUM 9.9 mg/dL (8.5-10.1); CARBON DIOXIDE 29 mmol/L (21-32); CHLORIDE 98 mmol/L (98-107); CREATININE 4.2 mg/dL (0.6-1.0); GFR 10.1; GLUCOSE 92 mg/dL (70-99); POTASSIUM 4.8 mmol/L (3.5-5.1); SODIUM 136 mmol/L (136-145); TOTAL BILIRUBIN 0.9 mg/dL (0.2-1.0); TOTAL PROTEIN 6.4 g/dL (6.4-8.2)
[2017-05-10] MEDS: CYCLOBENZAPRINE 10 MG TABLET. PO ×2 (08:43→14:00)
[2017-05-10] MEDS: LACTOBACILLUS RHAMNOSUS GG 1 CAPSULE. PO (08:43)
[2017-05-10] MEDS: CINACALCET HCL 30 MG TABLET PO (08:43)
[2017-05-10] MEDS: CALCITRIOL 0.25 MCG CAPSULE. PO (08:43)
[2017-05-10] MEDS: ASPIRIN ENTERIC COATED 81 MG TABLET.DR. PO (08:43)
[2017-05-10] MEDS: LIDOCAINE (700MG/PATCH) PATCH. TP (08:45)
[2017-05-10] MEDS: CHOLECALCIFEROL (VITAMIN D3) 1,000 UNIT TABLET PO (08:45)
[2017-05-10] MEDS: ALLOPURINOL 100 MG TABLET. PO (08:45)
[2017-05-10] MEDS: SEVELAMER CARBONATE 2.4 GM PACKET. PO ×3 (08:45→17:19)
[2017-05-10] MEDS: DICLOFENAC SODIUM 1% TOPICAL GEL 100GM TUBE. TP ×3 (08:45→17:00)
[2017-05-10] MEDS: INSULIN DETEMIR 300 UNITS/3 ML INSULN.PEN. SQ (08:46)
[2017-05-10 08:47] LABS: ALT (SGPT) 7 U/L (14-59)
[2017-05-10 11:20] LABS: POC GLUCOSE 102 mg/dL (70-99)
[2017-05-10] MEDS ORDERED: IV NORMAL SALINE 1000ML BAG 1,000 ML IV ×2 (12:58)
[2017-05-10] MEDS ORDERED: DIALYSIS PATIENT. MC (13:00)
[2017-05-10] MEDS: CEFPODOXIME PROXETIL 100 MG TABLET. PO (17:19)
[2017-05-10] MEDS: FOLIC/VIT B COMP W-C (RENAL) TABLET. PO (17:19)
[2017-05-10 19:02] LABS: POC GLUCOSE 76 mg/dL (70-99)
== END 2017-05-10 19:10 | disposition home or self-care (01) | DRG 871 ==
LOC: 1 WEST ICU 05-05 12:09 → 5 SOUTH 05-07 23:05 → ER 11:56 → 2 NORTH 12:30
PROC: 5A1D70Z Performance of Urinary Filtration, Intermittent, Less than 6 Hours Per Day (ICD-10-PCS; principal; 2017-05-02)
PROC: 5A1D70Z Performance of Urinary Filtration, Intermittent, Less than 6 Hours Per Day (ICD-10-PCS; 2017-05-03)
PROC: 5A1D70Z Performance of Urinary Filtration, Intermittent, Less than 6 Hours Per Day (ICD-10-PCS; 2017-05-05)
PROC: 5A1D70Z Performance of Urinary Filtration, Intermittent, Less than 6 Hours Per Day (ICD-10-PCS; 2017-05-06)
PROC: 5A1D70Z Performance of Urinary Filtration, Intermittent, Less than 6 Hours Per Day (ICD-10-PCS; 2017-05-07)
PROC: 5A1D70Z Performance of Urinary Filtration, Intermittent, Less than 6 Hours Per Day (ICD-10-PCS; 2017-05-10)
DX: A41.9 Sepsis, unspecified organism (principal); I50.43 Acute on chronic combined systolic (congestive) and diastolic (congestive) heart failure; J96.01 Acute respiratory failure with hypoxia; E43 Unspecified severe protein-calorie malnutrition; R65.21 Severe sepsis with septic shock; J15.6 Pneumonia due to other Gram-negative bacteria; D69.6 Thrombocytopenia, unspecified; E10.22 Type 1 diabetes mellitus with diabetic chronic kidney disease; I13.2 Hypertensive heart and chronic kidney disease with heart failure and with stage 5 chronic kidney disease, or end stage renal disease; E87.5 Hyperkalemia; N18.6 End stage renal disease; J44.0 Chronic obstructive pulmonary disease with (acute) lower respiratory infection; I24.8 Other forms of acute ischemic heart disease; D63.1 Anemia in chronic kidney disease; E78.5 Hyperlipidemia, unspecified; E86.1 Hypovolemia; F02.80 Dementia in other diseases classified elsewhere, unspecified severity, without behavioral disturbance, psychotic disturbance, mood disturbance, and anxiety; G30.9 Alzheimer's disease, unspecified; I25.10 Atherosclerotic heart disease of native coronary artery without angina pectoris; I25.5 Ischemic cardiomyopathy; I27.29 Other secondary pulmonary hypertension; I34.0 Nonrheumatic mitral (valve) insufficiency; J20.9 Acute bronchitis, unspecified; Z66 Do not resuscitate; Z79.4 Long term (current) use of insulin; Z79.82 Long term (current) use of aspirin; Z82.49 Family history of ischemic heart disease and other diseases of the circulatory system; Z83.3 Family history of diabetes mellitus; Z95.1 Presence of aortocoronary bypass graft; Z99.2 Dependence on renal dialysis; Z87.440 Personal history of urinary (tract) infections; Z88.8 Allergy status to other drugs, medicaments and biological substances
CPT/HCPCS: 36415; 36600; 71045; 80048; 80053; 80076; 80202; 82553; 82805; 82962; 83690; 83735; 83880; 84145; 84443; 84484; 85025; 85610; 87040; 87641; 93005; 93306; 94640; 94760; 96365; 96375; 97162-GP; 97166-GO; 97168-GO; 99285; 99285-25; J0696; J1815; J2405; J2543; J3370; J7613; J7620; P9046

== ENCOUNTER 2017-11-06 02:41 | Inpatient (IN) | payer OTHER, MEDICARE ==
[2017-11-06 03:05] LABS: POC GLUCOSE 203 mg/dL (70-99)
[2017-11-06 03:08] LABS: BILIRUBIN,URINE NEGATIVE (NEG); CLARITY,URINE CLOUDY; COLOR,URINE AMBER; GLUCOSE,URINE NEGATIVE (NEG); NITRITE,URINE NEGATIVE (NEG); PH,URINE 7.5; PROTEIN,URINE 100 mg/dL (NEG-TRACE); UROBILINOGEN,URINE 0.2 mg/dL (0.2 mg/dL)
[2017-11-06 03:15] LABS: ADD MAN DIFF? NO
[2017-11-06 03:20] LABS: BASO # 0.1 x10^3/uL (0.0-0.2); BASO % 1 % (0-3); EOS # 0.2 x10^3/uL (0.0-0.7); EOS % 2 % (0-3); HEMATOCRIT 33.1 % (36.0-47.0); HEMOGLOBIN 11.3 g/dL (12.0-15.5); LYMPH # 1.8 x10^3/uL (1.0-4.8); LYMPH % 15 % (24-48); MEAN CORPUSCULAR HEMOGLOBIN 38 pg (25-35); MEAN CORPUSCULAR HGB CONC 34 g/dL (31-37); MEAN CORPUSCULAR VOLUME 111 fL (79-100); MONO # 0.7 x10^3/uL (0.0-1.1); MONO % 6 % (0-9); NEUT # 9.6 x10^3uL (1.8-7.7); NEUT % 77 % (31-73); PLATELET COUNT 295 x10^3/uL (140-400); RED BLOOD COUNT 2.99 x10^6/uL (3.50-5.40); RED CELL DISTRIBUTION WIDTH 14.2 % (11.5-14.5); WHITE BLOOD COUNT 12.5 x10^3/uL (4.0-11.0)
[2017-11-06 03:21] LABS: AMORPHOUS SEDIMENT,UR PRESENT /HPF; BACTERIA,URINE FEW /HPF (0-FEW); RBC,URINE OCC /HPF (0-2); SQUAMOUS EPITHELIAL CELL,UR MOD /LPF; WBC,URINE TNTC /HPF (0-4)
[2017-11-06 03:31] LABS: INR 1.2 (0.8-1.1); PROTHROMBIN TIME PATIENT 14.4 SEC (11.7-14.0)
[2017-11-06 03:32] LABS: PARTIAL THROMBOPLASTIN TIME 39 SEC (24-38)
[2017-11-06 03:38] LABS: TROPONINI 0.038 ng/mL (0.000-0.055)
[2017-11-06 03:39] LABS: ANION GAP 9 (6-14); BLOOD UREA NITROGEN 52 mg/dL (7-20); BUN/CREATININE RATIO 9 (6-20); CALCIUM 10.2 mg/dL (8.5-10.1); CARBON DIOXIDE 30 mmol/L (21-32); CHLORIDE 98 mmol/L (98-107); CREATININE 5.7 mg/dL (0.6-1.0); GFR 7.1; GLUCOSE 226 mg/dL (70-99); POTASSIUM 4.8 mmol/L (3.5-5.1); SODIUM 137 mmol/L (136-145)
[2017-11-06 03:45] LABS: ALBUMIN/GLOBULIN RATIO 0.7 (1.0-1.7); ALK PHOS 264 U/L (46-116); ALT (SGPT) 17 U/L (14-59); AST (SGOT) 18 U/L (15-37); MAGNESIUM 2.3 mg/dL (1.8-2.4); TOTAL BILIRUBIN 0.6 mg/dL (0.2-1.0); TOTAL PROTEIN 7.2 g/dL (6.4-8.2)
[2017-11-06 04:43] LABS: PLT ESTIMATE ADEQUATE (ADEQUATE); POLYCHROMASIA SLIGHT
[2017-11-06] MEDS: cefTRIAXone IV Push 1 GM VIAL. IVP (05:03)
[2017-11-06] MEDS ORDERED: ONDANSETRON PF 4 MG/2 ML VIAL. IV (05:15)
[2017-11-06 05:28] LABS: POC GLUCOSE 174 mg/dL (70-99)
[2017-11-06 06:04] LABS: LACTIC ACID 1.6 mmol/L (0.4-2.0)
[2017-11-06] MEDS: IV NORMAL SALINE 500ML BAG 500 ML IV (06:15)
[2017-11-06] MEDS: NALOXONE 0.4 MG/ML VIAL. IV (06:16)
[2017-11-06] MEDS: VANCOMYCIN 750 MG in IV DEXTROSE 5% 250 ML IV (07:10)
[2017-11-06] MEDS ORDERED: DEXTROSE 50% 25 GM / 50ML DISP.SYRIN. IV (10:30)
[2017-11-06 11:41] LABS: POC GLUCOSE 172 mg/dL (70-99)
[2017-11-06] MEDS: INSULIN LISPRO 300 UNITS/3 ML INSULN.PEN. SQ ×2 (11:49→17:00)
[2017-11-06] MEDS: fentaNYL PF VIAL 100 MCG/2 ML VIAL IV ×3 (11:56→20:34)
[2017-11-06] MEDS ORDERED: IV NORMAL SALINE 1000ML BAG 1,000 ML IV ×2 (16:02)
[2017-11-06] MEDS ORDERED: ALBUMIN HUMAN 25% 200 ML IV (16:15)
[2017-11-06] MEDS ORDERED: ACETAMINOPHEN 500 MG TABLET PO (16:15)
[2017-11-06] MEDS ORDERED: diphenhydrAMINE 50 MG/ML VIAL IV ×2 (16:15)
[2017-11-06] MEDS ORDERED: cloNIDine HCL 0.1 MG TABLET PO (16:15)
[2017-11-06] MEDS ORDERED: DIALYSIS PATIENT. MC (16:15)
[2017-11-06] MEDS ORDERED: LABETALOL 20 MG/4 ML DISP.SYRIN. IVP (16:15)
[2017-11-06 17:10] LABS: POC GLUCOSE 142 mg/dL (70-99)
[2017-11-06] MEDS: DARBEPOETIN ALFA 60 MCG/0.3 ML DISP.SYRIN. SQ (20:33)
[2017-11-06 20:41] LABS: POC GLUCOSE 86 mg/dL (70-99)
[2017-11-06] MEDS: INSULIN GLARGINE 300 UNITS/3 ML INSULN.PEN. SQ (21:00)
[2017-11-07 02:15] LABS: MRSA BY PCR Negative (Negative)
[2017-11-07] MEDS ORDERED: cefTRIAXone IV Push 1 GM VIAL. IVP (05:00)
[2017-11-07] MEDS: CEFEPIME HCL IV (05:20)
[2017-11-07] MEDS: NORMAL SALINE IV (05:20)
[2017-11-07 05:26] LABS: ADD MAN DIFF? NO
[2017-11-07 05:34] LABS: BASO # 0.1 x10^3/uL (0.0-0.2); BASO % 1 % (0-3); EOS # 0.2 x10^3/uL (0.0-0.7); EOS % 2 % (0-3); HEMOGLOBIN 10.4 g/dL (12.0-15.5); LYMPH # 0.9 x10^3/uL (1.0-4.8); LYMPH % 8 % (24-48); MEAN CORPUSCULAR HEMOGLOBIN 37 pg (25-35); MEAN CORPUSCULAR HGB CONC 34 g/dL (31-37); MEAN CORPUSCULAR VOLUME 110 fL (79-100); MONO # 0.6 x10^3/uL (0.0-1.1); MONO % 5 % (0-9); NEUT # 9.3 x10^3uL (1.8-7.7); NEUT % 84 % (31-73); PLATELET COUNT 246 x10^3/uL (140-400); RED BLOOD COUNT 2.82 x10^6/uL (3.50-5.40); RED CELL DISTRIBUTION WIDTH 14.2 % (11.5-14.5)
[2017-11-07 05:54] LABS: ALBUMIN 2.5 g/dL (3.4-5.0); ALBUMIN/GLOBULIN RATIO 0.7 (1.0-1.7); ALK PHOS 166 U/L (46-116); ALT (SGPT) 13 U/L (14-59); ANION GAP 8 (6-14); AST (SGOT) 16 U/L (15-37); BLOOD UREA NITROGEN 25 mg/dL (7-20); BUN/CREATININE RATIO 7 (6-20); CALCIUM 9.3 mg/dL (8.5-10.1); CARBON DIOXIDE 28 mmol/L (21-32); CHLORIDE 104 mmol/L (98-107); CREATININE 3.5 mg/dL (0.6-1.0); GFR 12.4; GLUCOSE 111 mg/dL (70-99); POTASSIUM 4.8 mmol/L (3.5-5.1); SODIUM 140 mmol/L (136-145); TOTAL BILIRUBIN 0.6 mg/dL (0.2-1.0)
[2017-11-07] MEDS: INSULIN LISPRO 300 UNITS/3 ML INSULN.PEN. SQ ×3 (08:00→17:00)
[2017-11-07 08:43] LABS: POC GLUCOSE 132 mg/dL (70-99)
[2017-11-07 11:35] LABS: POC GLUCOSE 157 mg/dL (70-99)
[2017-11-07] MEDS ORDERED: oxyCODONE/APAP 10/325 1 TAB TABLET PO (12:45)
[2017-11-07] MEDS ORDERED: ONDANSETRON ODT 4 MG TAB.RAPDIS. PO (12:45)
[2017-11-07] MEDS: CYCLOBENZAPRINE 10 MG TABLET. PO ×3 (13:30→21:44)
[2017-11-07] MEDS: oxyCODONE ER 10 MG TAB.ER.12H PO (13:30)
[2017-11-07] MEDS: CINACALCET HCL 30 MG TABLET PO (14:45)
[2017-11-07] MEDS: PANTOPRAZOLE 40 MG TABLET.DR. PO (14:45)
[2017-11-07] MEDS: CALCITRIOL 0.25 MCG CAPSULE. PO (14:45)
[2017-11-07] MEDS: ASPIRIN ENTERIC COATED 81 MG TABLET.DR. PO (14:45)
[2017-11-07] MEDS: SEVELAMER CARBONATE 2.4 GM PACKET. PO ×2 (14:46→17:00)
[2017-11-07] MEDS: CHOLECALCIFEROL (VITAMIN D3) 1,000 UNIT TABLET PO (14:46)
[2017-11-07] MEDS: FOLIC/VIT B COMP W-C (RENAL) TABLET. PO (17:59)
[2017-11-07] MEDS: CARVEDILOL 12.5 MG TABLET. PO (17:59)
[2017-11-07] MEDS: DICLOFENAC SODIUM 1% TOPICAL GEL 100GM TUBE. TP (21:00)
[2017-11-07] MEDS ORDERED: LATANOPROST OP (21:00)
[2017-11-07 21:05] LABS: POC GLUCOSE 187 mg/dL (70-99)
[2017-11-07 21:05] LABS: POC GLUCOSE 214 mg/dL (70-99)
[2017-11-07] MEDS: LACTOBACILLUS RHAMNOSUS GG 1 CAPSULE. PO (21:43)
[2017-11-07] MEDS: LATANOPROST 0.005% OPHTH SOLUTION 2.5ML BOTTLE. OU (21:44)
[2017-11-07] MEDS: AMITRIPTYLINE HCL 25 MG TABLET. PO (21:44)
[2017-11-07] MEDS: INSULIN GLARGINE 300 UNITS/3 ML INSULN.PEN. SQ (21:55)
[2017-11-08 04:57] LABS: HEMATOCRIT 31.6 % (36.0-47.0); HEMOGLOBIN 10.7 g/dL (12.0-15.5); MEAN CORPUSCULAR HEMOGLOBIN 38 pg (25-35); MEAN CORPUSCULAR HGB CONC 34 g/dL (31-37); MEAN CORPUSCULAR VOLUME 111 fL (79-100); PLATELET COUNT 214 x10^3/uL (140-400); RED BLOOD COUNT 2.86 x10^6/uL (3.50-5.40); RED CELL DISTRIBUTION WIDTH 14.3 % (11.5-14.5)
[2017-11-08 05:04] LABS: ANION GAP 6 (6-14); BLOOD UREA NITROGEN 41 mg/dL (7-20); CALCIUM 9.1 mg/dL (8.5-10.1); CARBON DIOXIDE 27 mmol/L (21-32); CHLORIDE 101 mmol/L (98-107); CREATININE 5.1 mg/dL (0.6-1.0); GLUCOSE 198 mg/dL (70-99); POTASSIUM 5.6 mmol/L (3.5-5.1); SODIUM 134 mmol/L (136-145)
[2017-11-08] MEDS: NORMAL SALINE IV (05:17)
[2017-11-08] MEDS: CEFEPIME HCL IV (05:17)
[2017-11-08] MEDS: PANTOPRAZOLE 40 MG TABLET.DR. PO (07:30)
[2017-11-08] MEDS: SEVELAMER CARBONATE 2.4 GM PACKET. PO ×2 (08:00→12:00)
[2017-11-08] MEDS: CARVEDILOL 12.5 MG TABLET. PO (08:00)
[2017-11-08] MEDS: INSULIN LISPRO 300 UNITS/3 ML INSULN.PEN. SQ ×3 (08:00→17:00)
[2017-11-08 08:36] LABS: POC GLUCOSE 153 mg/dL (70-99)
[2017-11-08] MEDS ORDERED: IV NORMAL SALINE 1000ML BAG 1,000 ML IV ×2 (08:55)
[2017-11-08] MEDS ORDERED: DIALYSIS PATIENT. MC ×2 (09:00)
[2017-11-08] MEDS: CHOLECALCIFEROL (VITAMIN D3) 1,000 UNIT TABLET PO (09:00)
[2017-11-08] MEDS: CYCLOBENZAPRINE 10 MG TABLET. PO ×3 (09:00→17:00)
[2017-11-08] MEDS ORDERED: diphenhydrAMINE 50 MG/ML VIAL IV ×2 (09:00)
[2017-11-08] MEDS: DICLOFENAC SODIUM 1% TOPICAL GEL 100GM TUBE. TP (09:00)
[2017-11-08] MEDS: LACTOBACILLUS RHAMNOSUS GG 1 CAPSULE. PO (09:00)
[2017-11-08] MEDS: CINACALCET HCL 30 MG TABLET PO (14:52)
[2017-11-08] MEDS: CALCITRIOL 0.25 MCG CAPSULE. PO (14:52)
[2017-11-08] MEDS: ASPIRIN ENTERIC COATED 81 MG TABLET.DR. PO (14:52)
[2017-11-08] MEDS: traMADol 50 MG TABLET PO (14:52)
[2017-11-08] MEDS: IBUPROFEN 800 MG TABLET. PO (14:52)
[2017-11-08 16:42] LABS: POC GLUCOSE 138 mg/dL (70-99)
== END 2017-11-08 19:05 | DRG 871 ==
LOC: ER 02:41 → 2 SOUTH 11-07 17:45 → 1 WEST ICU 04:58
PROC: 5A1D70Z Performance of Urinary Filtration, Intermittent, Less than 6 Hours Per Day (ICD-10-PCS; principal; 2017-11-06)
PROC: 5A1D70Z Performance of Urinary Filtration, Intermittent, Less than 6 Hours Per Day (ICD-10-PCS; 2017-11-08)
DX: A41.9 Sepsis, unspecified organism (principal); G93.41 Metabolic encephalopathy; N18.6 End stage renal disease; I13.2 Hypertensive heart and chronic kidney disease with heart failure and with stage 5 chronic kidney disease, or end stage renal disease; N39.0 Urinary tract infection, site not specified; I50.32 Chronic diastolic (congestive) heart failure; E78.00 Pure hypercholesterolemia, unspecified; E78.5 Hyperlipidemia, unspecified; M19.90 Unspecified osteoarthritis, unspecified site; I25.10 Atherosclerotic heart disease of native coronary artery without angina pectoris; I25.2 Old myocardial infarction; J44.9 Chronic obstructive pulmonary disease, unspecified; E21.3 Hyperparathyroidism, unspecified; D64.9 Anemia, unspecified; E11.22 Type 2 diabetes mellitus with diabetic chronic kidney disease; K72.90 Hepatic failure, unspecified without coma; F03.90 Unspecified dementia, unspecified severity, without behavioral disturbance, psychotic disturbance, mood disturbance, and anxiety; I25.5 Ischemic cardiomyopathy; I48.91 Unspecified atrial fibrillation; S83.207A Unspecified tear of unspecified meniscus, current injury, left knee, initial encounter; X58.XXXA Exposure to other specified factors, initial encounter; Z95.1 Presence of aortocoronary bypass graft; Z88.5 Allergy status to narcotic agent; Z82.49 Family history of ischemic heart disease and other diseases of the circulatory system; Z99.2 Dependence on renal dialysis; Z79.4 Long term (current) use of insulin; Z83.3 Family history of diabetes mellitus; Z86.14 Personal history of Methicillin resistant Staphylococcus aureus infection; Y93.89 Activity, other specified; Y92.89 Other specified places as the place of occurrence of the external cause; Y99.8 Other external cause status
CPT/HCPCS: 36415; 70450; 71045; 72148; 80048; 80053; 81001; 82962; 83605; 83735; 84443; 84484; 85025; 85027; 85610; 85730; 87040; 87086; 87641; 92526-GN; 92610-GN; 93005; 96374; 96375; 97162-GP; 97166-GO; 99285; 99285-25; J0692; J0696; J0881; J1815; J2310; J3010; J3370; J7040

== ENCOUNTER 2018-04-16 14:46 | Emergency (ER) | payer OTHER ==
[~2018-04-16] VITALS: Ht 165.1 cm; Wt 82.1 kg
[2018-04-16 14:46] VITALS: BP 143/65
[~2018-04-16 14:46] MED LIST changes: +AMIT25TA PO; +AMOX1TAB11 PO; +BIMA2.5D EACHEYE; +BISA10SU55 RC; +CALC0.25 PO; +CARV12.511 PO; +CEFP100T PO; +CINA30TA2 PO; +DICL100G18 TP; +FERR325T14 PO; +GUAI118L13 PO; +HYDR-2761 PO; +HYDR28CR62 TP; +IBUP-1060 PO; +INSU100I13 SQ; +INSU100I27 SQ; +INSU100V13 SQ; +LATA2.5D3 EACHEYE; +LATA7.5D OP; +LIDO700A39 TP; +MAGN400O7 PO; +MELA5TAB21 PO; +ONDA4TAB10 PO; +OXYC10TA PO; +OXYC1TAB22 PO; +PANT20TA2 PO; +POTA10TA12 PO; +TRAM50TA PO
[2018-04-16] MEDS ORDERED: HYDROcodone/APAP 5/325MG 1 TAB TABLET PO ONE (15:30)
[2018-04-16] MEDS ORDERED: ONDANSETRON ODT 4 MG TAB.RAPDIS. PO ONE (15:30)
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
[2018-04-16] MEDS ORDERED: DIPHTH,PERTUSS(ACELL),TET TOX 0.5 ML DISP.SYRIN. VAX IM ONE (15:45)
[2018-04-16] MEDS ORDERED: LIDOCAINE WITH 8.4% SOD BICARB 3 ML DISP.SYRIN. INJ ONE (15:45)
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
[2018-04-16] MEDS ORDERED: ASPI325T8 PO (17:49)
== END 2018-04-16 18:58 | disposition home or self-care (01) ==
LOC: ER 14:46
DX: S90.411A Abrasion, right great toe, initial encounter (principal); M79.671 Pain in right foot; M25.512 Pain in left shoulder; Z88.5 Allergy status to narcotic agent; E78.00 Pure hypercholesterolemia, unspecified; I13.0 Hypertensive heart and chronic kidney disease with heart failure and stage 1 through stage 4 chronic kidney disease, or unspecified chronic kidney disease; E10.22 Type 1 diabetes mellitus with diabetic chronic kidney disease; N18.9 Chronic kidney disease, unspecified; I50.9 Heart failure, unspecified; Z95.1 Presence of aortocoronary bypass graft; V00.811A Fall from moving wheelchair (powered), initial encounter; Y93.89 Activity, other specified; Y92.89 Other specified places as the place of occurrence of the external cause; Y99.8 Other external cause status
CPT/HCPCS: 73030; 73630; 82962; 90471; 90715; 99284; Q0162

== ENCOUNTER 2018-07-10 12:18 | Inpatient (IN) | payer OTHER ==
[~2018-07-10] VITALS: Ht 165.1 cm; Wt 85.1 kg
[~2018-07-10 12:18] MED LIST changes: +ASPI325T8 PO
[2018-07-10] MEDS ORDERED: IPRATRPIUM/ALBUTEROL 0.5/2.5MG 3 ML NEBU. NEB ONE (13:30)
--- NOTE | 2018-07-10 14:02 | PHYS DOC ---
Past Medical History Past Medical History: CHF, Diabetes-Type I, High Cholesterol, Renal Failure Past Surgical History: Coronary Bypass Surgery Additional Past Surgical Histo: CABG X5 2004, AV FISTULA RT ARM Alcohol Use: None Drug Use: None Adult General Chief Complaint Chief Complaint: SHORTNESS OF BREATH [facility] HPI Patient is an 87-year-old female who arrives via EMS from her dialysis facility. She reportedly went for hemodialysis today, but she states she has had a cough for several weeks, and she was sent to the emergency department for evaluation of her cough. She does admit some shortness of breath. She denies any pain, including any chest pain, dizziness or lightheadedness. She has not had any nausea or vomiting. There are no alleviating or exacerbating factors to her symptoms otherwise. Review of Systems Review of Systems Constitutional: Denies fever or chills [] Eyes: Denies change in visual acuity, redness, or eye pain [] HENT: Denies nasal congestion or sore throat [] Respiratory: Reports cough and shortness of breath [] Cardiovascular: No additional information not addressed in HPI [] GI: Denies abdominal pain, nausea, vomiting, bloody stools or diarrhea [] : Denies dysuria or hematuria [] Musculoskeletal: Denies back pain or joint pain [] Integument: Denies rash or skin lesions [] Neurologic: Denies headache, focal weakness or sensory changes [] Endocrine: Denies polyuria or polydipsia [] All other systems were reviewed and found to be within normal limits, except as documented in this note. Current Medications Current Medications Current Medications Medications (Trade) Dose Ordered Sig/[facility] Start Time Stop Time Status Last Admin Dose Admin Albuterol/ Ipratropium (Duoneb) 3 ml 1X ONCE 07/10/18 13:30 07/10/18 13:31 DC 07/10/18 13:47 3 ML Allergies Allergies Allergies Coded Allergies Type Severity Reaction Last Updated Verified morphine Adverse Reaction Intermediate HALLUCINATIONS 08/13/16 Yes Physical Exam Physical Exam PHYSICAL EXAM: CONSTITUTIONAL: Well developed, well nourished HEAD: normocephalic, atraumatic EENT: PERRL, EOMI. Conjunctivae normal color, sclerae non-icteric; moist mucous membranes. NECK: Supple, non-tender; no meningismus. LUNGS: There are globally diminished breath sounds with some scattered wheezes. The patient is mildly dyspneic.. HEART: Irregularly irregular rhythm, no audible murmur CHEST: No deformity; non-tender ABDOMEN: The abdomen is soft, and non-tender, no masses or bruits. EXTREM: Normal ROM; no deformity, no calf tenderness. Normal pulses palpable in all extremities. There is 3+ bilateral tight pitting pedal edema. SKIN: No rash; no diaphoresis NEURO: Alert; normal speech and cognition; CN's grossly intact; strength grossly intact without focal deficit. BACK: No CVA TTP. Current Patient Data Vital Signs Vital Signs Date Time Temp Pulse Resp B/P (MAP) Pulse Ox O2 Delivery O2 Flow Rate FiO2 07/10/18 13:45 100 Room Air 07/10/18 12:24 99.5 85 18 111/55 (73) 99.5 Lab Values Laboratory Tests Test 07/10/18 13:38 07/10/18 13:47 Influenza Type A Antigen Negative (NEGATIVE) Influenza Type B Antigen Negative (NEGATIVE) White Blood Count 7.7 x10^3/uL (4.0-11.0) Red Blood Count 3.35 x10^6/uL (3.50-5.40) L Hemoglobin 11.8 g/dL (12.0-15.5) L Hematocrit 35.3 % (36.0-47.0) L Mean Corpuscular Volume 105 fL (79-100) H Mean Corpuscular Hemoglobin 35 pg (25-35) Mean Corpuscular Hemoglobin Concent 33 g/dL (31-37) Red Cell Distribution Width 15.3 % (11.5-14.5) H Platelet Count 117 x10^3/uL (140-400) L Neutrophils (%) (Auto) 78 % (31-73) H Lymphocytes (%) (Auto) 10 % (24-48) L Monocytes (%) (Auto) 11 % (0-9) H Eosinophils (%) (Auto) 0 % (0-3) Basophils (%) (Auto) 1 % (0-3) Neutrophils # (Auto) 6.0 x10^3uL (1.8-7.7) Lymphocytes # (Auto) 0.7 x10^3/uL (1.0-4.8) L Monocytes # (Auto) 0.9 x10^3/uL (0.0-1.1) Eosinophils # (Auto) 0.0 x10^3/uL (0.0-0.7) Basophils # (Auto) 0.1 x10^3/uL (0.0-0.2) Platelet Estimate Pending Prothrombin Time 15.3 SEC (11.7-14.0) H Prothrombin Time INR 1.2 (0.8-1.1) H Sodium Level 139 mmol/L (136-145) Potassium Level 5.6 mmol/L (3.5-5.1) H Chloride Level 99 mmol/L (98-107) Carbon Dioxide Level 29 mmol/L (21-32) Anion Gap 11 (6-14) Blood Urea Nitrogen 46 mg/dL (7-20) H Creatinine 6.4 mg/dL (0.6-1.0) H Estimated GFR (Cockcroft-Gault) 7.5 BUN/Creatinine Ratio 7 (6-20) Glucose Level 119 mg/dL (70-99) H Lactic Acid Level 1.8 mmol/L (0.4-2.0) Calcium Level 10.0 mg/dL (8.5-10.1) Total Bilirubin 0.9 mg/dL (0.2-1.0) Aspartate Amino Transferase (AST) 18 U/L (15-37) Alanine Aminotransferase (ALT) 12 U/L (14-59) L Alkaline Phosphatase 261 U/L (46-116) H Troponin I Quantitative 0.080 ng/mL (0.000-0.055) WG-Gtg-M-Type Natriuretic Peptide 70557 pg/mL (0-449) H Total Protein 6.9 g/dL (6.4-8.2) Albumin 3.1 g/dL (3.4-5.0) L Albumin/Globulin Ratio 0.8 (1.0-1.7) L Laboratory Tests 07/10/18 13:47 Laboratory Tests 07/10/18 13:47 EKG EKG [Atrial fibrillation at a rate of 94 beats for minute, normal axis, normal intervals, poor anterior R-wave progression with nonspecific ST/T changes.] EKG is not significantly changed compared to patient's prior EKG. Radiology/Procedures Radiology/Procedures [PROCEDURE: PORTABLE CHEST 1V PORTABLE CHEST 1V History: shortness of breath, cough. Comparison with November 06, 2017 heart size remains enlarged. Aortic calcification and ectasia is again identified. Interstitial opacities in both lungs are identified, slightly improved since previous exam. Left lung base opacity is are again identified although slightly improved as well. Probable small pleural effusions. No pneumothorax. Postsurgical changes again seen. No dense lobar airspace consolidation. IMPRESSION: 1. Cardiac silhouette remains enlarged. 2. Diffuse interstitial opacities are again identified although slightly improved. Compatible with chronic fibrosis with or without a component of mild acute edema. 3. Mild infiltrate or atelectasis in left lung base, improved since previous exam. ] Course & Med Decision Making Course & Med Decision Making Pertinent Labs and Imaging studies reviewed. (See chart for details) [2:45 PM:The patient's condition remains stable. I spoke with the hospitalist , who accepted the patient to the hospital for further evaluation and treatment. ] Dragon Disclaimer Dragon Disclaimer This electronic medical record was generated, in whole or in part, using a voice recognition dictation system. Departure Departure Impression: Primary Impression: Dyspnea Additional Impressions: Cough ESRD (end stage renal disease) Disposition: 09 ADMITTED INPATIENT Admitting Physician: Chela Escobar Condition: STABLE Referrals: KASSIE BAIG MD (PCP) Problem Qualifiers LATOSHA LEE MD Jul 10, 2018 14:02
[2018-07-10 14:03] LABS: BASO # 0.1 x10^3/uL (0.0-0.2); BASO % 1 % (0-3); EOS % 0 % (0-3); HEMATOCRIT 35.3 % (36.0-47.0); HEMOGLOBIN 11.8 g/dL (12.0-15.5); LYMPH # 0.7 x10^3/uL (1.0-4.8); LYMPH % 10 % (24-48); MEAN CORPUSCULAR HEMOGLOBIN 35 pg (25-35); MEAN CORPUSCULAR HGB CONC 33 g/dL (31-37); MEAN CORPUSCULAR VOLUME 105 fL (79-100); MONO # 0.9 x10^3/uL (0.0-1.1); MONO % 11 % (0-9); NEUT % 78 % (31-73); PLATELET COUNT 117 x10^3/uL (140-400); RED BLOOD COUNT 3.35 x10^6/uL (3.50-5.40); RED CELL DISTRIBUTION WIDTH 15.3 % (11.5-14.5); WHITE BLOOD COUNT 7.7 x10^3/uL (4.0-11.0)
[2018-07-10 14:06] LABS: PROTHROMBIN TIME PATIENT 15.3 SEC (11.7-14.0)
[2018-07-10 14:08] LABS: CREATININE 6.4 mg/dL (0.6-1.0); GFR 7.5; POTASSIUM 5.6 mmol/L (3.5-5.1)
[2018-07-10 14:15] LABS: ALBUMIN 3.1 g/dL (3.4-5.0); ALBUMIN/GLOBULIN RATIO 0.8 (1.0-1.7); TOTAL BILIRUBIN 0.9 mg/dL (0.2-1.0); TOTAL PROTEIN 6.9 g/dL (6.4-8.2)
[2018-07-10 14:18] LABS: INFLUENZA A PATIENT NEGATIVE (NEGATIVE); INFLUENZA B PATIENT NEGATIVE (NEGATIVE)
--- NOTE | 2018-07-10 14:32 | RAD ---
PORTABLE CHEST 1V History: shortness of breath, cough. Comparison with November 06, 2017 heart size remains enlarged. Aortic calcification and ectasia is again identified. Interstitial opacities in both lungs are identified, slightly improved since previous exam. Left lung base opacity is are again identified although slightly improved as well. Probable small pleural effusions. No pneumothorax. Postsurgical changes again seen. No dense lobar airspace consolidation. IMPRESSION: 1. Cardiac silhouette remains enlarged. 2. Diffuse interstitial opacities are again identified although slightly improved. Compatible with chronic fibrosis with or without a component of mild acute edema. 3. Mild infiltrate or atelectasis in left lung base, improved since previous exam. Electronically signed by: Daniel Yanes MD (07/10/2018 2:29 PM) [id number]
[2018-07-10] MEDS ORDERED: oxyCODONE/APAP 10/325 1 TAB TABLET PO PRN (15:15)
[2018-07-10] MEDS ORDERED: ONDANSETRON ODT 4 MG TAB.RAPDIS. PO PRN ×2 (15:15→15:30)
[2018-07-10] MEDS ORDERED: ONDANSETRON PF 4 MG/2 ML VIAL. IV PRN (15:30)
[2018-07-10] MEDS ORDERED: DEXTROSE 50% 25 GM / 50ML DISP.SYRIN. IV PRN (15:30)
[2018-07-10] MEDS ORDERED: CALCIUM CARBONATE 500 MG TAB.CHEW PO PRN (15:30)
--- NOTE | 2018-07-10 15:32 | PDOC1 ---
History and Physical Date of Admission Date of Admission DATE: 07/10/18 TIME: 15:27 Identification/Chief Complaint Chief Complaint soa, cough Source Source: Caregiver, Chart review, Patient History of Present Illness History of Present Illness 87 y.o Female, DNR, resident of [facility] x 1 yr now, HD today but did not finished bec of SOA and cough x few weeks, Denies known sick contact but lives in SNU. NO CP, no fevers. labs look ok. CXR shows congestion, Does not make urine really anymore, HD x 8 yrs now from DM and HTN. Admitted with renal to get hD, I will check for flu, Ambulates with wheelchair, . LEgs swollen, more tight than usual Past Medical History Cardiovascular: CAD, CHF, HTN, [place], Valve insufficiency Pulmonary: Bronchitis, COPD GI: No pertinent hx Heme/Onc: Anemia NOS Rheumatologic: No pertinent hx Infectious disease: No pertinent hx Renal/: Chronic renal insuff, UTI Endocrine: Diabetes, Hyperparathyroidism Past Surgical History Past Surgical History: CABG Family History Family History: Heart Disease, High Cholestrol, Hypertension Social History Smoke: No ALCOHOL: none Drugs: None Current Problem List Problem List Problems Medical Problems: (1) Cough Status: Acute (2) Dyspnea Status: Acute (3) ESRD (end stage renal disease) Status: Acute Current Medications Current Medications Current Medications Albuterol/ Ipratropium (Duoneb) 3 ml 1X ONCE NEB Last administered on at 13:47; Start 07/10/18 at 13:30; Stop 07/10/18 at 13:31; Status DC Amitriptyline HCl (Elavil) 25 mg QHS PO ; Start 07/10/18 at 21:00; Status UNV Aspirin (Tracee Aspirin) 325 mg DAILY PO ; Start 07/11/18 at 09:00; Status UNV Aspirin (Ecotrin) 81 mg DAILY PO ; Start 07/11/18 at 09:00; Status UNV Carvedilol (Coreg) 12.5 mg BIDWMEALS PO ; Start 07/10/18 at 17:00; Status UNV Cinacalcet (Sensipar) 30 mg DAILY PO ; Start 07/11/18 at 09:00; Status UNV Cyclobenzaprine HCl (Flexeril) 10 mg QID PO ; Start 07/10/18 at 17:00; Status UNV Diclofenac Sodium (Voltaren) 1 grisel BID TP ; Start 07/10/18 at 21:00; Status UNV Vitamin B Complex/ Vitamin C (Bela-Roland) 1 tab DAILYBFRSUP PO ; Start 07/10/18 at 17:00; Status UNV Ondansetron HCl (Zofran Odt) 4 mg Q6HRS PRN PO NAUSEA/VOMITING; Start 07/10/18 at 15:15; Status UNV Oxycodone/ Acetaminophen (Percocet 10/325) 1 tab PRN Q6HRS PRN PO PAIN; Start 07/10/18 at 15:15; Status UNV Sevelamer Carbonate (Renvela) 2.4 gm TIDWMEALS PO ; Start 07/10/18 at 17:00; Status UNV Tramadol HCl (Ultram) 50 mg PRN Q6HRS PO ; Start 07/10/18 at 15:15; Status UNV Non-Formulary Medication (Bimatoprost (Lumigan)) 1 drop QHS EACHEYE ; Start at 21:00; Status UNV Non-Formulary Medication (Calcitriol ) 1 cap DAILY PO ; Start 07/11/18 at 09:00 ; Status UNV Non-Formulary Medication (Cholecalciferol (Vitamin D3) (Vitamin D)) 1 cap DAILY PO ; Start 07/11/18 at 09:00; Status UNV Non-Formulary Medication (Ibuprofen ) 800 mg PRN Q8HRS PRN PO INFLAMMATION; Start 07/10/18 at 15:15; Status UNV Non-Formulary Medication (Insulin Aspart (Novolog)) 5 unit BIDAC SQ ; Start at 16:30; Status UNV Non-Formulary Medication (Latanoprost/Pf (Latanoprost 0.005% Eye Drop)) 7.5 ml QHS OP ; Start 07/10/18 at 21:00; Status UNV Non-Formulary Medication (Oxycodone Hcl (Oxycodone Hcl Immed.release)) 1 tab Q12HR PO ; Start 07/10/18 at 21:00; Status UNV Non-Formulary Medication (Pantoprazole Sodium (Protonix)) 40 mg DAILY PO ; Start 07/11/18 at 09:00; Status UNV Insulin Glargine (Lantus) 8 units QHS SQ ; Start 07/10/18 at 21:00; Status UNV Insulin Human Lispro (HumaLOG) 0-9 UNITS TIDWMEALS SQ ; Start 07/10/18 at 17:00 ; Status UNV Dextrose (Dextrose 50%-Water Syringe) 12.5 gm PRN Q15MIN PRN IV SEE COMMENTS; Start 07/10/18 at 15:30; Status UNV Acetaminophen (Tylenol) 500 mg PRN Q6HRS PRN PO MILD PAIN / TEMP; Start at 15:30; Status UNV Calcium Carbonate/ Glycine (Tums) 500 mg PRN AFTMEALHC PRN PO INDIGESTION; Start 07/10/18 at 15:30; Status UNV Ondansetron HCl (Zofran) 4 mg PRN Q6HRS PRN IV NAUSEA/VOMITING; Start 07/10/18 at 15:30; Status UNV Ondansetron HCl (Zofran Odt) 4 mg PRN Q6HRS PRN PO NAUSEA/VOMITING; Start 07/10 at 15:30; Status UNV Albuterol/ Ipratropium (Duoneb) 3 ml RTQID NEB ; Start 07/10/18 at 16:00; Status UNV Guaifenesin (Robitussin Dm) 10 ml PRN Q6HRS PRN PO COUGH; Start 07/10/18 at 15: 30; Status UNV Active Scripts Active Aspirin 325 Mg Tablet 1 Tab PO DAILY Tramadol Hcl 50 Mg Tablet 1 Tab PO PRN Q6HRS Reported Ibuprofen 800 Mg Tablet 800 Mg PO PRN Q8HRS PRN Percocet 10-325 Mg Tablet (Oxycodone/Acetaminophen) 1 Each Tablet 1 Tab PO PRN Q6HRS PRN Oxycodone Hcl Immed.release (Oxycodone Hcl) 10 Mg Tablet 1 Tab PO Q12HR Protonix (Pantoprazole Sodium) 20 Mg Tablet.dr 40 Mg PO DAILY Latanoprost 0.005% Eye Drop (Latanoprost/Pf) 7.5 Ml Drops 7.5 Ml OP QHS Voltaren (Diclofenac Sodium) 100 Gm Gel..gram. 1 Gm TP BID Levemir (Insulin Detemir) 100 Unit/1 Ml Vial 8 Unit SQ Novolog (Insulin Aspart) 100 Unit/1 Ml Cartridge 5 Unit SQ BIDAC Zofran Odt (Ondansetron) 4 Mg Tab.rapdis 4 Mg PO Q6HRS PRN Carvedilol (Carvedilol) 12.5 Mg Tablet 12.5 Mg PO BIDWMEALS Cortizone-10 1% Creme (Hydrocortisone/Aloe Vera) 28 Gm Cream..g. Unknown Dose TP PRN DAILY Sensipar (Cinacalcet Hcl) 30 Mg Tablet 1 Tab PO DAILY Renvela (Sevelamer Carbonate) 2.4 Gm Powd.pack 2.4 Gm PO TIDWMEALS Lumigan (Bimatoprost) 2.5 Ml Drops 1 Drop EACHEYE QHS Amitriptyline Hcl 25 Mg Tablet 1 Tab PO QHS Calcitriol 0.25 Mcg Capsule 1 Cap PO DAILY Nephro-Roland Tablet (Folic Acid/Vitamin B Comp W-C) 0.8 Mg Tablet 1 Tab PO DAILYBFRSUP Vitamin D (Cholecalciferol (Vitamin D3)) 2,000 Unit Capsule 1 Cap PO DAILY Cyclobenzaprine Hcl 10 Mg Tablet 1 Tab PO QID Aspir-Low (Aspirin) 81 Mg Tablet. 1 Tab PO DAILY Allergies Allergies: Coded Allergies: morphine (Verified Adverse Reaction, Intermediate, HALLUCINATIONS, 08/13/16 ) ROS Review of System as per HPI, all else neg 14 pt Physical Exam General: No acute distress, Other (coughing in phrases) HEENT: Atraumatic Lungs: Normal air movement, Other (dec SB, crackles, no wheezes, SCE) Heart: S1S2, RRR, no thrills, no rubs, no gallops, no murmurs Cardiovascular: S1, S2 Breasts: Normal, Rt breast nml w/o mass, Lt breast nml w/o mass, Nipples normal Abdomen: Normal bowel sounds, Soft, No tenderness, No hepatosplenomegaly, No masses Extremities: Other (tight and swollen, no breaks) Skin: No rashes, No breakdown, No significant lesion Neuro: Normal gait, Normal speech, Strength at 5/5 X4 ext, Normal tone, Sensation intact, Cranial nerves 3-12 NL, Reflexes 2+ Psych/Mental Status: Mental status NL, Mood NL Vitals Vitals Vital Signs Date Time Temp Pulse Resp B/P (MAP) Pulse Ox O2 Delivery O2 Flow Rate FiO2 07/10/18 13:45 100 Room Air 07/10/18 13:30 88 22 113/64 (80) 07/10/18 12:24 99.5 99.5 Labs Labs Laboratory Tests Test 07/10/18 13:38 07/10/18 13:47 Influenza Type A Antigen Negative (NEGATIVE) Influenza Type B Antigen Negative (NEGATIVE) White Blood Count 7.7 x10^3/uL (4.0-11.0) Red Blood Count 3.35 x10^6/uL (3.50-5.40) Hemoglobin 11.8 g/dL (12.0-15.5) Hematocrit 35.3 % (36.0-47.0) Mean Corpuscular Volume 105 fL (79-100) Mean Corpuscular Hemoglobin 35 pg (25-35) Mean Corpuscular Hemoglobin Concent 33 g/dL (31-37) Red Cell Distribution Width 15.3 % (11.5-14.5) Platelet Count 117 x10^3/uL (140-400) Neutrophils (%) (Auto) 78 % (31-73) Lymphocytes (%) (Auto) 10 % (24-48) Monocytes (%) (Auto) 11 % (0-9) Eosinophils (%) (Auto) 0 % (0-3) Basophils (%) (Auto) 1 % (0-3) Neutrophils # (Auto) 6.0 x10^3uL (1.8-7.7) Lymphocytes # (Auto) 0.7 x10^3/uL (1.0-4.8) Monocytes # (Auto) 0.9 x10^3/uL (0.0-1.1) Eosinophils # (Auto) 0.0 x10^3/uL (0.0-0.7) Basophils # (Auto) 0.1 x10^3/uL (0.0-0.2) Prothrombin Time 15.3 SEC (11.7-14.0) Prothromb Time International Ratio 1.2 (0.8-1.1) Sodium Level 139 mmol/L (136-145) Potassium Level 5.6 mmol/L (3.5-5.1) Chloride Level 99 mmol/L (98-107) Carbon Dioxide Level 29 mmol/L (21-32) Anion Gap 11 (6-14) Blood Urea Nitrogen 46 mg/dL (7-20) Creatinine 6.4 mg/dL (0.6-1.0) Estimated GFR (Cockcroft-Gault) 7.5 BUN/Creatinine Ratio 7 (6-20) Glucose Level 119 mg/dL (70-99) Lactic Acid Level 1.8 mmol/L (0.4-2.0) Calcium Level 10.0 mg/dL (8.5-10.1) Total Bilirubin 0.9 mg/dL (0.2-1.0) Aspartate Amino Transf (AST/SGOT) 18 U/L (15-37) Alanine Aminotransferase (ALT/SGPT) 12 U/L (14-59) Alkaline Phosphatase 261 U/L (46-116) Troponin I Quantitative 0.080 ng/mL (0.000-0.055) BJ-Vvd-B-Type Natriuretic Peptide 23575 pg/mL (0-449) Total Protein 6.9 g/dL (6.4-8.2) Albumin 3.1 g/dL (3.4-5.0) Albumin/Globulin Ratio 0.8 (1.0-1.7) Laboratory Tests Test 07/10/18 13:38 07/10/18 13:47 Influenza Type A Antigen Negative (NEGATIVE) Influenza Type B Antigen Negative (NEGATIVE) White Blood Count 7.7 x10^3/uL (4.0-11.0) Red Blood Count 3.35 x10^6/uL (3.50-5.40) Hemoglobin 11.8 g/dL (12.0-15.5) Hematocrit 35.3 % (36.0-47.0) Mean Corpuscular Volume 105 fL (79-100) Mean Corpuscular Hemoglobin 35 pg (25-35) Mean Corpuscular Hemoglobin Concent 33 g/dL (31-37) Red Cell Distribution Width 15.3 % (11.5-14.5) Platelet Count 117 x10^3/uL (140-400) Neutrophils (%) (Auto) 78 % (31-73) Lymphocytes (%) (Auto) 10 % (24-48) Monocytes (%) (Auto) 11 % (0-9) Eosinophils (%) (Auto) 0 % (0-3) Basophils (%) (Auto) 1 % (0-3) Neutrophils # (Auto) 6.0 x10^3uL (1.8-7.7) Lymphocytes # (Auto) 0.7 x10^3/uL (1.0-4.8) Monocytes # (Auto) 0.9 x10^3/uL (0.0-1.1) Eosinophils # (Auto) 0.0 x10^3/uL (0.0-0.7) Basophils # (Auto) 0.1 x10^3/uL (0.0-0.2) Prothrombin Time 15.3 SEC (11.7-14.0) Prothromb Time International Ratio 1.2 (0.8-1.1) Sodium Level 139 mmol/L (136-145) Potassium Level 5.6 mmol/L (3.5-5.1) Chloride Level 99 mmol/L (98-107) Carbon Dioxide Level 29 mmol/L (21-32) Anion Gap 11 (6-14) Blood Urea Nitrogen 46 mg/dL (7-20) Creatinine 6.4 mg/dL (0.6-1.0) Estimated GFR (Cockcroft-Gault) 7.5 BUN/Creatinine Ratio 7 (6-20) Glucose Level 119 mg/dL (70-99) Lactic Acid Level 1.8 mmol/L (0.4-2.0) Calcium Level 10.0 mg/dL (8.5-10.1) Total Bilirubin 0.9 mg/dL (0.2-1.0) Aspartate Amino Transf (AST/SGOT) 18 U/L (15-37) Alanine Aminotransferase (ALT/SGPT) 12 U/L (14-59) Alkaline Phosphatase 261 U/L (46-116) Troponin I Quantitative 0.080 ng/mL (0.000-0.055) CN-Mvn-W-Type Natriuretic Peptide 90259 pg/mL (0-449) Total Protein 6.9 g/dL (6.4-8.2) Albumin 3.1 g/dL (3.4-5.0) Albumin/Globulin Ratio 0.8 (1.0-1.7) VTE Prophylaxis Ordered VTE Prophylaxis Devices: Yes VTE Pharmacological Prophylaxi: Yes Assessment/Plan Assessment/Plan 1. ESRD on HD 2. CHF 3. AOCD 4. SNU resident 5. COugh, SOA 6. HX fibrosis?? 7. DM PLAN: Admit 2 mN, HD per renal Cant give lasix - no urine any more CHeck for flu 22 home meds reconciled Supprotive meds BAck to HCR on dc DNR ERINN ROCKWELL MD Jul 10, 2018 15:32
--- NOTE | 2018-07-10 15:48 | EKG ---
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
[2018-07-10 15:52] LABS: % BASOS 1 % (0-3); % LYMPHS 11 % (24-48); % MONOS 10 % (0-10); % SEGS 78 % (35-66)
[2018-07-10 15:53] LABS: PLT ESTIMATE DECREASED (ADEQUATE)
[2018-07-10] MEDS: ASPIRIN 325 MG TABLET PO SCH (16:00)
[2018-07-10] MEDS: CALCITRIOL 0.25 MCG CAPSULE. PO SCH (16:00)
[2018-07-10] MEDS: CINACALCET HCL 30 MG TABLET PO SCH ×2 (16:00→17:41)
[2018-07-10] MEDS: IPRATRPIUM/ALBUTEROL 0.5/2.5MG 3 ML NEBU. NEB SCH ×2 (16:00→19:59)
[2018-07-10 16:15] VITALS: BP 108/44
[2018-07-10] MEDS: PANTOPRAZOLE 40 MG TABLET.DR. PO SCH (16:30)
[2018-07-10] MEDS: INSULIN LISPRO 300 UNITS/3 ML INSULN.PEN. SQ SCH ×2 (17:00)
[2018-07-10] MEDS: guaiFENesin DM 200MG/20MG 10 ML SYRUP PO PRN (17:41)
[2018-07-10] MEDS: SEVELAMER CARBONATE 2.4 GM PACKET. PO SCH (17:43)
[2018-07-10] MEDS: CYCLOBENZAPRINE 10 MG TABLET. PO SCH ×2 (17:44→20:52)
[2018-07-10] MEDS: FOLIC/VIT B COMP W-C (RENAL) TABLET. PO SCH (17:44)
[2018-07-10] MEDS: CARVEDILOL 12.5 MG TABLET. PO SCH (17:55)
[2018-07-10 18:00] VITALS: BP 135/52
[2018-07-10 19:53] VITALS: BP 104/44
[2018-07-10] MEDS: LATANOPROST 0.005% OPHTH SOLUTION 2.5ML BOTTLE. OU SCH (20:51)
[2018-07-10] MEDS: AMITRIPTYLINE HCL 25 MG TABLET. PO SCH (20:51)
[2018-07-10] MEDS: DICLOFENAC SODIUM 1% TOPICAL GEL 100GM TUBE. TP SCH (20:52)
[2018-07-10] MEDS: INSULIN GLARGINE 300 UNITS/3 ML INSULN.PEN. SQ SCH (20:53)
[2018-07-10] MEDS ORDERED: NON FORMULARY ITEM (Bimatoprost (Lumigan) 1 DROP) EACHEYE SCH (21:00)
[2018-07-10] MEDS ORDERED: NON FORMULARY ITEM (Oxycodone Hcl (Oxycodone Hcl Immed.release) 1 TAB) PO SCH (21:00)
[2018-07-10 23:23] VITALS: BP 90/37
[2018-07-11] VITALS (9 sets, daily range): BP systolic 69–134; BP diastolic 31–62
[2018-07-11] MEDS ORDERED: IV NORMAL SALINE 1000ML BAG 1,000 ML IV PRN ×2 (07:22)
[2018-07-11] MEDS: IPRATRPIUM/ALBUTEROL 0.5/2.5MG 3 ML NEBU. NEB SCH ×4 (07:25→20:45)
[2018-07-11] MEDS ORDERED: DIALYSIS PATIENT. MC PRN ×2 (07:30)
--- NOTE | 2018-07-11 07:50 | NUR ---
Pt transported to dialysis per bed.
[2018-07-11] MEDS: SEVELAMER CARBONATE 2.4 GM PACKET. PO SCH ×3 (08:00→17:00)
[2018-07-11] MEDS: CARVEDILOL 12.5 MG TABLET. PO SCH ×2 (08:00→17:00)
[2018-07-11] MEDS: INSULIN LISPRO 300 UNITS/3 ML INSULN.PEN. SQ SCH ×5 (08:00→17:00)
[2018-07-11] MEDS: CYCLOBENZAPRINE 10 MG TABLET. PO SCH ×5 (09:00→21:05)
[2018-07-11] MEDS ORDERED: ASPIRIN ENTERIC COATED 81 MG TABLET.DR. PO SCH (09:00)
--- NOTE | 2018-07-11 11:08 | NUR ---
SW following pt for anticipated dc needs. Chart reviewed and discussed with RN. SW confirmed with Tati pt is [facility], phone: [phone]; fax [phone], and is able to return to upon dc. SW will continue to follow.
--- NOTE | 2018-07-11 11:14 | PDOC2 ---
CONSULT Date of Consult Date of Consult DATE: 07/11/18 TIME: 11:10 Reason for Consult Reason for Consult: SOB AND ESRD Referring Physician Referring Physician: MOIZ Identification/Chief Complaint Chief Complaint SOB Source Source: Chart review, Patient History of Present Illness Reason for Visit: THIS IS AN 87 YR OLD ESRD PT WITH SOB AND SOME CONFUSION PER HER HD UNIT. SHE HAS ESRD DUE TO DM II AND HTN. SHE WENT TO HER HD UNIT YESTERDAY AND HER PELLETISING EXTRUDER OPERATOR INFORMED THE UNIT STAFF THAT SHE WAS SOMEWHAT CONFUSED AND SHE WAS THEN SENT TO THE ER FOR EVALUATION. SHE IS ADMITTED FOR EVAL OF CONFUSION AND SOB. LABS C/W ESRD AND MILD HYPERKALEMIA Past Medical History Cardiovascular: CAD, CHF, HTN, [place], Valve insufficiency Pulmonary: Bronchitis, COPD GI: No pertinent hx Heme/Onc: Anemia NOS Rheumatologic: No pertinent hx Infectious disease: No pertinent hx Renal/: Chronic renal insuff, UTI Endocrine: Diabetes, Hyperparathyroidism Past Surgical History Past Surgical History: CABG Family History Family History: Heart Disease, High Cholestrol, Hypertension Social History No ALCOHOL: none Drugs: None Lives: Skilled Nursing Current Problem List Problem List Problems Medical Problems: (1) Cough Status: Acute (2) Dyspnea Status: Acute (3) ESRD (end stage renal disease) Status: Acute Current Medications Current Medications Current Medications Albuterol/ Ipratropium (Duoneb) 3 ml 1X ONCE NEB Last administered on at 13:47; Start 07/10/18 at 13:30; Stop 07/10/18 at 13:31; Status DC Amitriptyline HCl (Elavil) 25 mg QHS PO Last administered on 07/10/18at 20:51; Start 07/10/18 at 21:00 Aspirin (Tracee Aspirin) 325 mg DAILY PO ; Start 07/10/18 at 16:00 Aspirin (Ecotrin) 81 mg DAILY PO ; Start 07/11/18 at 09:00; Stop 07/11/18 at 09: 00; Status DC Carvedilol (Coreg) 12.5 mg BIDWMEALS PO Last administered on 07/10/18at 17:55; Start 07/10/18 at 17:00 Cinacalcet (Sensipar) 30 mg DAILY PO ; Start 07/10/18 at 16:00 Cyclobenzaprine HCl (Flexeril) 10 mg QID PO Last administered on 07/10/18at 20: 52; Start 07/10/18 at 17:00 Diclofenac Sodium (Voltaren) 1 grisel BID TP Last administered on 07/10/18at 20:52 ; Start 07/10/18 at 21:00 Vitamin B Complex/ Vitamin C (Bela-Roland) 1 tab DAILYBFRSUP PO Last administered on 07/10/18at 17:44; Start 07/10/18 at 17:00 Ondansetron HCl (Zofran Odt) 4 mg PRN Q6HRS PRN PO NAUSEA/VOMITING; Start 07/10 at 15:15; Status Cancel Oxycodone/ Acetaminophen (Percocet 10/325) 1 tab PRN Q6HRS PRN PO SEVERE PAIN; Start 07/10/18 at 15:15 Sevelamer Carbonate (Renvela) 2.4 gm TIDWMEALS PO Last administered on at 17:43; Start 07/10/18 at 17:00 Tramadol HCl (Ultram) 50 mg PRN Q6HRS PRN PO MILD TO MODERATE PAIN; Start 07/10 at 15:15 Non-Formulary Medication (Bimatoprost (Lumigan)) 1 drop QHS EACHEYE ; Start at 21:00; Stop 07/10/18 at 21:00; Status DC Calcitriol (Rocaltrol) 0.25 mcg DAILY PO ; Start 07/10/18 at 16:00 Vitamin D (Vitamin D3) 2,000 unit DAILY PO ; Start 07/11/18 at 09:00 Ibuprofen (Motrin) 800 mg PRN Q8HRS PRN PO INFLAMMATION; Start 07/10/18 at 15: 45 Insulin Human Lispro (HumaLOG) 5 units BIDWMEALS SQ ; Start 07/10/18 at 17:00 Latanoprost (Xalatan) 1 drop QHS OU Last administered on 07/10/18at 20:51; Start 07/10/18 at 21:00 Non-Formulary Medication (Oxycodone Hcl (Oxycodone Hcl Immed.release)) 1 tab Q12HR PO ; Start 07/10/18 at 21:00; Stop 07/10/18 at 21:00; Status DC Pantoprazole Sodium (Protonix) 40 mg DAILYAC PO ; Start 07/10/18 at 16:30 Insulin Glargine (Lantus) 8 units QHS SQ ; Start 07/10/18 at 21:00 Insulin Human Lispro (HumaLOG) 0-9 UNITS TIDWMEALS SQ ; Start 07/10/18 at 17:00 Dextrose (Dextrose 50%-Water Syringe) 12.5 gm PRN Q15MIN PRN IV SEE COMMENTS; Start 07/10/18 at 15:30 Acetaminophen (Tylenol) 500 mg PRN Q6HRS PRN PO MILD PAIN / TEMP; Start at 15:30 Calcium Carbonate/ Glycine (Tums) 500 mg PRN AFTMEALHC PRN PO INDIGESTION; Start 07/10/18 at 15:30 Ondansetron HCl (Zofran) 4 mg PRN Q6HRS PRN IV NAUSEA/VOMITING; Start 07/10/18 at 15:30 Ondansetron HCl (Zofran Odt) 4 mg PRN Q6HRS PRN PO NAUSEA/VOMITING; Start 07/10 at 15:30 Albuterol/ Ipratropium (Duoneb) 3 ml RTQID NEB Last administered on 07/11/18at 07:25; Start 07/10/18 at 16:00 Guaifenesin (Robitussin Dm) 10 ml PRN Q6HRS PRN PO COUGH Last administered on at 17:41; Start 07/10/18 at 15:30 Sodium Chloride 1,000 ml @ 1,000 mls/hr Q1H PRN IV hypotension; Start 07/11/18 at 07:22; Stop 07/11/18 at 13:21 Sodium Chloride 1,000 ml @ 400 mls/hr Q2H30M PRN IV PATENCY; Start 07/11/18 at 07:22; Stop 07/11/18 at 19:21 Info (PHARMACY MONITORING -- do not chart) 1 each PRN DAILY PRN MC SEE COMMENTS ; Start 07/11/18 at 07:30; Status UNV Info (PHARMACY MONITORING -- do not chart) 1 each PRN DAILY PRN MC SEE COMMENTS ; Start 07/11/18 at 07:30 Active Scripts Active Aspirin 325 Mg Tablet 1 Tab PO DAILY Tramadol Hcl 50 Mg Tablet 1 Tab PO PRN Q6HRS Reported Ibuprofen 800 Mg Tablet 800 Mg PO PRN Q8HRS PRN Percocet 10-325 Mg Tablet (Oxycodone/Acetaminophen) 1 Each Tablet 1 Tab PO PRN Q6HRS PRN Oxycodone Hcl Immed.release (Oxycodone Hcl) 10 Mg Tablet 1 Tab PO Q12HR Protonix (Pantoprazole Sodium) 20 Mg Tablet.dr 40 Mg PO DAILY Latanoprost 0.005% Eye Drop (Latanoprost/Pf) 7.5 Ml Drops 7.5 Ml OP QHS Voltaren (Diclofenac Sodium) 100 Gm Gel..gram. 1 Gm TP BID Levemir (Insulin Detemir) 100 Unit/1 Ml Vial 8 Unit SQ Novolog (Insulin Aspart) 100 Unit/1 Ml Cartridge 5 Unit SQ BIDAC Zofran Odt (Ondansetron) 4 Mg Tab.rapdis 4 Mg PO Q6HRS PRN Carvedilol (Carvedilol) 12.5 Mg Tablet 12.5 Mg PO BIDWMEALS Cortizone-10 1% Creme (Hydrocortisone/Aloe Vera) 28 Gm Cream..g. Unknown Dose TP PRN DAILY Sensipar (Cinacalcet Hcl) 30 Mg Tablet 1 Tab PO DAILY Renvela (Sevelamer Carbonate) 2.4 Gm Powd.pack 2.4 Gm PO TIDWMEALS Lumigan (Bimatoprost) 2.5 Ml Drops 1 Drop EACHEYE QHS Amitriptyline Hcl 25 Mg Tablet 1 Tab PO QHS Calcitriol 0.25 Mcg Capsule 1 Cap PO DAILY Nephro-Roland Tablet (Folic Acid/Vitamin B Comp W-C) 0.8 Mg Tablet 1 Tab PO DAILYBFRSUP Vitamin D (Cholecalciferol (Vitamin D3)) 2,000 Unit Capsule 1 Cap PO DAILY Cyclobenzaprine Hcl 10 Mg Tablet 1 Tab PO QID Aspir-Low (Aspirin) 81 Mg Tablet. 1 Tab PO DAILY Allergies Allergies: Coded Allergies: morphine (Verified Adverse Reaction, Intermediate, HALLUCINATIONS, 08/13/16 ) ROS Review of System UNRELIABLE EARLIER WITH SOME MILD CONFUSION Physical Exam General: Alert, Cooperative, No acute distress HEENT: Atraumatic, PERRLA Lungs: Clear to auscultation Heart: Regular rate, Normal S1, Normal S2, Gallops Abdomen: Normal bowel sounds, Soft, No tenderness Extremities: No clubbing, No cyanosis, Other (MILD CHRONIC LE EDEMA BILATERALLY ) Skin: No rashes, No breakdown Neuro: Other (MILD CONFUSION) Psych/Mental Status: Other (FLAT AFFECT) MUSCULOSKELETAL: No joint tenderness, No deformity Vitals VITALS Vital Signs Date Time Temp Pulse Resp B/P (MAP) Pulse Ox O2 Delivery O2 Flow Rate FiO2 07/11/18 07:29 92 Room Air 07/11/18 07:28 98.1 89 16 102/49 (66) 98.1 Labs Labs Laboratory Tests Test 07/10/18 13:38 07/10/18 13:47 07/10/18 16:56 07/10/18 20:38 Influenza Type A Antigen Negative (NEGATIVE) Influenza Type B Antigen Negative (NEGATIVE) White Blood Count 7.7 x10^3/uL (4.0-11.0) Red Blood Count 3.35 x10^6/uL (3.50-5.40) Hemoglobin 11.8 g/dL (12.0-15.5) Hematocrit 35.3 % (36.0-47.0) Mean Corpuscular Volume 105 fL (79-100) Mean Corpuscular Hemoglobin 35 pg (25-35) Mean Corpuscular Hemoglobin Concent 33 g/dL (31-37) Red Cell Distribution Width 15.3 % (11.5-14.5) Platelet Count 117 x10^3/uL (140-400) Neutrophils (%) (Auto) 78 % (31-73) Lymphocytes (%) (Auto) 10 % (24-48) Monocytes (%) (Auto) 11 % (0-9) Eosinophils (%) (Auto) 0 % (0-3) Basophils (%) (Auto) 1 % (0-3) Neutrophils # (Auto) 6.0 x10^3uL (1.8-7.7) Lymphocytes # (Auto) 0.7 x10^3/uL (1.0-4.8) Monocytes # (Auto) 0.9 x10^3/uL (0.0-1.1) Eosinophils # (Auto) 0.0 x10^3/uL (0.0-0.7) Basophils # (Auto) 0.1 x10^3/uL (0.0-0.2) Segmented Neutrophils % 78 % (35-66) Lymphocytes % 11 % (24-48) Monocytes % 10 % (0-10) Basophils % 1 % (0-3) Platelet Estimate Decreased (ADEQUATE) Macrocytosis Slight Prothrombin Time 15.3 SEC (11.7-14.0) Prothromb Time International Ratio 1.2 (0.8-1.1) Sodium Level 139 mmol/L (136-145) Potassium Level 5.6 mmol/L (3.5-5.1) Chloride Level 99 mmol/L (98-107) Carbon Dioxide Level 29 mmol/L (21-32) Anion Gap 11 (6-14) Blood Urea Nitrogen 46 mg/dL (7-20) Creatinine 6.4 mg/dL (0.6-1.0) Estimated GFR (Cockcroft-Gault) 7.5 BUN/Creatinine Ratio 7 (6-20) Glucose Level 119 mg/dL (70-99) Lactic Acid Level 1.8 mmol/L (0.4-2.0) Calcium Level 10.0 mg/dL (8.5-10.1) Total Bilirubin 0.9 mg/dL (0.2-1.0) Aspartate Amino Transf (AST/SGOT) 18 U/L (15-37) Alanine Aminotransferase (ALT/SGPT) 12 U/L (14-59) Alkaline Phosphatase 261 U/L (46-116) Troponin I Quantitative 0.080 ng/mL (0.000-0.055) RR-Izn-J-Type Natriuretic Peptide 88727 pg/mL (0-449) Total Protein 6.9 g/dL (6.4-8.2) Albumin 3.1 g/dL (3.4-5.0) Albumin/Globulin Ratio 0.8 (1.0-1.7) Glucose (Fingerstick) 124 mg/dL (70-99) 146 mg/dL (70-99) Test 07/11/18 07:25 Glucose (Fingerstick) 173 mg/dL (70-99) Laboratory Tests Test 07/10/18 13:38 07/10/18 13:47 07/10/18 16:56 07/10/18 20:38 Influenza Type A Antigen Negative (NEGATIVE) Influenza Type B Antigen Negative (NEGATIVE) White Blood Count 7.7 x10^3/uL (4.0-11.0) Red Blood Count 3.35 x10^6/uL (3.50-5.40) Hemoglobin 11.8 g/dL (12.0-15.5) Hematocrit 35.3 % (36.0-47.0) Mean Corpuscular Volume 105 fL (79-100) Mean Corpuscular Hemoglobin 35 pg (25-35) Mean Corpuscular Hemoglobin Concent 33 g/dL (31-37) Red Cell Distribution Width 15.3 % (11.5-14.5) Platelet Count 117 x10^3/uL (140-400) Neutrophils (%) (Auto) 78 % (31-73) Lymphocytes (%) (Auto) 10 % (24-48) Monocytes (%) (Auto) 11 % (0-9) Eosinophils (%) (Auto) 0 % (0-3) Basophils (%) (Auto) 1 % (0-3) Neutrophils # (Auto) 6.0 x10^3uL (1.8-7.7) Lymphocytes # (Auto) 0.7 x10^3/uL (1.0-4.8) Monocytes # (Auto) 0.9 x10^3/uL (0.0-1.1) Eosinophils # (Auto) 0.0 x10^3/uL (0.0-0.7) Basophils # (Auto) 0.1 x10^3/uL (0.0-0.2) Segmented Neutrophils % 78 % (35-66) Lymphocytes % 11 % (24-48) Monocytes % 10 % (0-10) Basophils % 1 % (0-3) Platelet Estimate Decreased (ADEQUATE) Macrocytosis Slight Prothrombin Time 15.3 SEC (11.7-14.0) Prothromb Time International Ratio 1.2 (0.8-1.1) Sodium Level 139 mmol/L (136-145) Potassium Level 5.6 mmol/L (3.5-5.1) Chloride Level 99 mmol/L (98-107) Carbon Dioxide Level 29 mmol/L (21-32) Anion Gap 11 (6-14) Blood Urea Nitrogen 46 mg/dL (7-20) Creatinine 6.4 mg/dL (0.6-1.0) Estimated GFR (Cockcroft-Gault) 7.5 BUN/Creatinine Ratio 7 (6-20) Glucose Level 119 mg/dL (70-99) Lactic Acid Level 1.8 mmol/L (0.4-2.0) Calcium Level 10.0 mg/dL (8.5-10.1) Total Bilirubin 0.9 mg/dL (0.2-1.0) Aspartate Amino Transf (AST/SGOT) 18 U/L (15-37) Alanine Aminotransferase (ALT/SGPT) 12 U/L (14-59) Alkaline Phosphatase 261 U/L (46-116) Troponin I Quantitative 0.080 ng/mL (0.000-0.055) LU-Mkz-[id number]-Type Natriuretic Peptide 92490 pg/mL (0-449) Total Protein 6.9 g/dL (6.4-8.2) Albumin 3.1 g/dL (3.4-5.0) Albumin/Globulin Ratio 0.8 (1.0-1.7) Glucose (Fingerstick) 124 mg/dL (70-99) 146 mg/dL (70-99) Test 07/11/18 07:25 Glucose (Fingerstick) 173 mg/dL (70-99) Assessment/Plan Assessment/Plan IMP ESRD ANEMIA DM II HTN ENCEPHALOPATHY-RESOLVED DYSPNEA-HYPERVOLEMIA PLAN HD TODAY UF TO DW HD AGAIN TOMORROW FOR TTS BASILIA WHEN NEEDED WILL FOLLOW NANCY CALERO MD Jul 11, 2018 11:14
[2018-07-11] MEDS: guaiFENesin DM 200MG/20MG 10 ML SYRUP PO PRN ×2 (12:37→19:49)
[2018-07-11] MEDS: DICLOFENAC SODIUM 1% TOPICAL GEL 100GM TUBE. TP SCH ×3 (12:52→20:03)
[2018-07-11] MEDS: PANTOPRAZOLE 40 MG TABLET.DR. PO SCH (12:52)
[2018-07-11] MEDS: CINACALCET HCL 30 MG TABLET PO SCH (12:53)
[2018-07-11] MEDS: CALCITRIOL 0.25 MCG CAPSULE. PO SCH (12:53)
[2018-07-11] MEDS: ASPIRIN 325 MG TABLET PO SCH (12:53)
[2018-07-11] MEDS: CHOLECALCIFEROL (VITAMIN D3) 1,000 UNIT TABLET PO SCH (12:53)
[2018-07-11] MEDS: BENZONATATE 100 MG CAPSULE. PO SCH ×2 (13:00→19:55)
--- NOTE | 2018-07-11 13:00 | NUR ---
Pt was complaining of abdominal pain related to a cough. Received instructions to give oxycodone from Dr Guerra to treat the pain. Medication was effective. Pt resting comfortable. Daughter was upset about pt receiving medication since she is on dialysis and does not clear narcotics quickly. I spoke to Dr Guerra and medication was discontinued and tramadol will be used. Vital signs remain stable. Will continue to monitor.
--- NOTE | 2018-07-11 14:30 | CONS ---
DATE OF CONSULTATION: PULMONARY CONSULTATION ATTENDING PHYSICIAN: Dr. Escobar. REASON FOR CONSULTATION: Dyspnea, abnormal chest x-ray. HISTORY OF PRESENT ILLNESS: The patient is an 87-year-old who has history of end-stage renal disease, on hemodialysis. She has a history of diastolic CHF. She was brought into the hospital after she had some subjective shortness of breath. She also had a cough for the last few weeks. No fever, no chills reported. No headaches, no nausea or vomiting, no diarrhea reported. She received narcotic pain medication, as a result she was sleepy and I could not obtain much history from the patient and her daughter answered most of the questions. I have reviewed the patient's chest x-ray and it reveals mildly prominent interstitial markings. The radiologist felt that it was fibrosis. There were some similar findings in October. I have been asked to see her for further evaluation. PAST MEDICAL HISTORY: History of CAD, history of diastolic CHF, hypertension, MT, valvular insufficiency, end-stage renal disease, on hemodialysis, diabetes and hyperparathyroidism. PAST SURGICAL HISTORY: CABG. FAMILY HISTORY: Heart disease, dyslipidemia, hypertension. SOCIAL HISTORY: Nonsmoker. ALLERGIES: MORPHINE. MEDICATIONS: All reviewed as listed in the MRAD including nebulizer. REVIEW OF SYSTEMS: Unable to obtain from the patient. PHYSICAL EXAMINATION: VITAL SIGNS: Reviewed. Pulse ox 96% on room air, afebrile. GENERAL: She does not respond to much questions, but she is arousable. NECK: Supple. LUNGS: Clear. CARDIOVASCULAR: With a regular rate. ABDOMEN: Soft, nontender. EXTREMITIES: With trace pitting edema. LABORATORY DATA: Reviewed. White cell count 7.7, hemoglobin 11.8. Influenza screen negative. INR 1.2. IMPRESSION: 1. Mildly prominent interstitial markings, probably related to mild interstitial edema. Clinically, less likely congestive heart failure. We will obtain noncontrast CT chest for further evaluation. 2. Encephalopathy, narcotic-induced. I have recommended to discontinue any narcotic pain medication. 3. End-stage renal disease, on hemodialysis. 4. Diastolic dysfunction. We will obtain echo to better assess for any valvular heart disease. RECOMMENDATIONS: 1. We will obtain noncontrast CT chest. 2. Discontinue all narcotics. 3. We will make further recommendations after review of the CT chest. 4. We would recommend increase ultrafiltration with hemodialysis. 5. P.r.n. nebulizer treatment. 6. Discussed with the patient's daughter and RN. We will follow along with you. GIAN SHAFFER MD DR: ERICKA/regan JOB#: [id number] / [id number]
--- NOTE | 2018-07-11 15:19 | PDOC ---
PROGRESS NOTES Chief Complaint Chief Complaint 1. ESRD on HD 2. CHF, with diastolic failrue 3. COPD with bronchitis, 4. [facility] resident, weakness and debility 5. COugh, SOA 6. pulmonary fibrosis 7. DM2 History of Present Illness History of Present Illness wheezing and cough today, cont anti-tussives, add, consult PULM, known fibrosis. PT and OT Supprotive meds DNR Vitals Vitals Vital Signs Date Time Temp Pulse Resp B/P (MAP) Pulse Ox O2 Delivery O2 Flow Rate FiO2 07/11/18 14:55 97.5 76 17 80/31 (47) 93 Room Air 2.0 97.5 Physical Exam General: Alert, Cooperative, No acute distress Heart: Regular rate, Normal S1, Normal S2, Gallops Lungs: Clear Abdomen: Normal bowel sounds, Soft, No tenderness Extremities: No clubbing, No cyanosis, Other (MILD CHRONIC LE EDEMA BILATERALLY ) Skin: No rashes, No breakdown Labs LABS Laboratory Tests Test 07/10/18 16:56 07/10/18 20:38 07/11/18 07:25 07/11/18 12:49 Glucose (Fingerstick) 124 mg/dL (70-99) 146 mg/dL (70-99) 173 mg/dL (70-99) 114 mg/dL (70-99) Assessment and Plan Assessmemt and Plan Problems Medical Problems: (1) Cough Status: Acute (2) Dyspnea Status: Acute (3) ESRD (end stage renal disease) Status: Acute Comment Review of Relevant I have reviewed the following items smith (where applicable) has been applied. Labs Laboratory Tests Test 07/10/18 13:38 07/10/18 13:47 07/10/18 16:56 07/10/18 20:38 Influenza Type A Antigen Negative (NEGATIVE) Influenza Type B Antigen Negative (NEGATIVE) White Blood Count 7.7 x10^3/uL (4.0-11.0) Red Blood Count 3.35 x10^6/uL (3.50-5.40) Hemoglobin 11.8 g/dL (12.0-15.5) Hematocrit 35.3 % (36.0-47.0) Mean Corpuscular Volume 105 fL (79-100) Mean Corpuscular Hemoglobin 35 pg (25-35) Mean Corpuscular Hemoglobin Concent 33 g/dL (31-37) Red Cell Distribution Width 15.3 % (11.5-14.5) Platelet Count 117 x10^3/uL (140-400) Neutrophils (%) (Auto) 78 % (31-73) Lymphocytes (%) (Auto) 10 % (24-48) Monocytes (%) (Auto) 11 % (0-9) Eosinophils (%) (Auto) 0 % (0-3) Basophils (%) (Auto) 1 % (0-3) Neutrophils # (Auto) 6.0 x10^3uL (1.8-7.7) Lymphocytes # (Auto) 0.7 x10^3/uL (1.0-4.8) Monocytes # (Auto) 0.9 x10^3/uL (0.0-1.1) Eosinophils # (Auto) 0.0 x10^3/uL (0.0-0.7) Basophils # (Auto) 0.1 x10^3/uL (0.0-0.2) Segmented Neutrophils % 78 % (35-66) Lymphocytes % 11 % (24-48) Monocytes % 10 % (0-10) Basophils % 1 % (0-3) Platelet Estimate Decreased (ADEQUATE) Macrocytosis Slight Prothrombin Time 15.3 SEC (11.7-14.0) Prothromb Time International Ratio 1.2 (0.8-1.1) Sodium Level 139 mmol/L (136-145) Potassium Level 5.6 mmol/L (3.5-5.1) Chloride Level 99 mmol/L (98-107) Carbon Dioxide Level 29 mmol/L (21-32) Anion Gap 11 (6-14) Blood Urea Nitrogen 46 mg/dL (7-20) Creatinine 6.4 mg/dL (0.6-1.0) Estimated GFR (Cockcroft-Gault) 7.5 BUN/Creatinine Ratio 7 (6-20) Glucose Level 119 mg/dL (70-99) Lactic Acid Level 1.8 mmol/L (0.4-2.0) Calcium Level 10.0 mg/dL (8.5-10.1) Total Bilirubin 0.9 mg/dL (0.2-1.0) Aspartate Amino Transf (AST/SGOT) 18 U/L (15-37) Alanine Aminotransferase (ALT/SGPT) 12 U/L (14-59) Alkaline Phosphatase 261 U/L (46-116) Troponin I Quantitative 0.080 ng/mL (0.000-0.055) BX-Hwa-H-Type Natriuretic Peptide 17922 pg/mL (0-449) Total Protein 6.9 g/dL (6.4-8.2) Albumin 3.1 g/dL (3.4-5.0) Albumin/Globulin Ratio 0.8 (1.0-1.7) Glucose (Fingerstick) 124 mg/dL (70-99) 146 mg/dL (70-99) Test 07/11/18 07:25 07/11/18 12:49 Glucose (Fingerstick) 173 mg/dL (70-99) 114 mg/dL (70-99) Laboratory Tests Test 07/10/18 16:56 07/10/18 20:38 07/11/18 07:25 07/11/18 12:49 Glucose (Fingerstick) 124 mg/dL (70-99) 146 mg/dL (70-99) 173 mg/dL (70-99) 114 mg/dL (70-99) Microbiology 07/10/18 Blood Culture - Preliminary, Resulted NO GROWTH AFTER 1 DAY Medications Current Medications Albuterol/ Ipratropium (Duoneb) 3 ml 1X ONCE NEB Last administered on at 13:47; Start 07/10/18 at 13:30; Stop 07/10/18 at 13:31; Status DC Amitriptyline HCl (Elavil) 25 mg QHS PO Last administered on 07/10/18at 20:51; Start 07/10/18 at 21:00 Aspirin (Tracee Aspirin) 325 mg DAILY PO Last administered on 07/11/18 12:53; Start 07/10/18 at 16:00 Aspirin (Ecotrin) 81 mg DAILY PO ; Start 07/11/18 at 09:00; Stop 07/11/18 at 09: 00; Status DC Carvedilol (Coreg) 12.5 mg BIDWMEALS PO Last administered on 07/10/18at 17:55; Start 07/10/18 at 17:00 Cinacalcet (Sensipar) 30 mg DAILY PO Last administered on 07/11/18at 12:53; Start 07/10/18 at 16:00 Cyclobenzaprine HCl (Flexeril) 10 mg QID PO Last administered on 07/11/18 13: 00; Start 07/10/18 at 17:00 Diclofenac Sodium (Voltaren) 1 grisel BID TP Last administered on 07/11/18 12:52 ; Start 07/10/18 at 21:00 Vitamin B Complex/ Vitamin C (Bela-Roland) 1 tab DAILYBFRSUP PO Last administered on 07/10/18at 17:44; Start 07/10/18 at 17:00 Ondansetron HCl (Zofran Odt) 4 mg PRN Q6HRS PRN PO NAUSEA/VOMITING; Start 07/10 at 15:15; Status Cancel Oxycodone/ Acetaminophen (Percocet 10/325) 1 tab PRN Q6HRS PRN PO SEVERE PAIN Last administered on 07/11/18 12:39; Start 07/10/18 at 15:15; Stop 07/11/18 at 13:50; Status DC Sevelamer Carbonate (Renvela) 2.4 gm TIDWMEALS PO Last administered on 12:53; Start 07/10/18 at 17:00 Tramadol HCl (Ultram) 50 mg PRN Q6HRS PRN PO MILD TO MODERATE PAIN; Start 07/10 at 15:15 Non-Formulary Medication (Bimatoprost (Lumigan)) 1 drop QHS EACHEYE ; Start at 21:00; Stop 07/10/18 at 21:00; Status DC Calcitriol (Rocaltrol) 0.25 mcg DAILY PO Last administered on 07/11/18at 12:53; Start 07/10/18 at 16:00 Vitamin D (Vitamin D3) 2,000 unit DAILY PO Last administered on 07/11/18 12:53 ; Start 07/11/18 at 09:00 Ibuprofen (Motrin) 800 mg PRN Q8HRS PRN PO INFLAMMATION; Start 07/10/18 at 15: 45 Insulin Human Lispro (HumaLOG) 5 units BIDWMEALS SQ ; Start 07/10/18 at 17:00 Latanoprost (Xalatan) 1 drop QHS OU Last administered on 07/10/18at 20:51; Start 07/10/18 at 21:00 Non-Formulary Medication (Oxycodone Hcl (Oxycodone Hcl Immed.release)) 1 tab Q12HR PO ; Start 07/10/18 at 21:00; Stop 07/10/18 at 21:00; Status DC Pantoprazole Sodium (Protonix) 40 mg DAILYAC PO Last administered on 07/11/18at 12:52; Start 07/10/18 at 16:30 Insulin Glargine (Lantus) 8 units QHS SQ ; Start 07/10/18 at 21:00 Insulin Human Lispro (HumaLOG) 0-9 UNITS TIDWMEALS SQ ; Start 07/10/18 at 17:00 Dextrose (Dextrose 50%-Water Syringe) 12.5 gm PRN Q15MIN PRN IV SEE COMMENTS; Start 07/10/18 at 15:30 Acetaminophen (Tylenol) 500 mg PRN Q6HRS PRN PO MILD PAIN / TEMP; Start at 15:30 Calcium Carbonate/ Glycine (Tums) 500 mg PRN AFTMEALHC PRN PO INDIGESTION; Start 07/10/18 at 15:30 Ondansetron HCl (Zofran) 4 mg PRN Q6HRS PRN IV NAUSEA/VOMITING; Start 07/10/18 at 15:30 Ondansetron HCl (Zofran Odt) 4 mg PRN Q6HRS PRN PO NAUSEA/VOMITING; Start 07/10 at 15:30 Albuterol/ Ipratropium (Duoneb) 3 ml RTQID NEB Last administered on 07/11/18at 12:37; Start 07/10/18 at 16:00 Guaifenesin (Robitussin Dm) 10 ml PRN Q6HRS PRN PO COUGH Last administered on at 12:37; Start 07/10/18 at 15:30 Sodium Chloride 1,000 ml @ 1,000 mls/hr Q1H PRN IV hypotension; Start 07/11/18 at 07:22; Stop 07/11/18 at 13:21; Status DC Sodium Chloride 1,000 ml @ 400 mls/hr Q2H30M PRN IV PATENCY; Start 07/11/18 at 07:22; Stop 07/11/18 at 19:21 Info (PHARMACY MONITORING -- do not chart) 1 each PRN DAILY PRN MC SEE COMMENTS ; Start 07/11/18 at 07:30; Status UNV Info (PHARMACY MONITORING -- do not chart) 1 each PRN DAILY PRN MC SEE COMMENTS ; Start 07/11/18 at 07:30 Benzonatate (Tessalon Perle) 100 mg [id number] PO Last administered on 07/11/18at 13 :00; Start 07/11/18 at 14:00 Active Scripts Active Aspirin 325 Mg Tablet 1 Tab PO DAILY Tramadol Hcl 50 Mg Tablet 1 Tab PO PRN Q6HRS Reported Ibuprofen 800 Mg Tablet 800 Mg PO PRN Q8HRS PRN Percocet 10-325 Mg Tablet (Oxycodone/Acetaminophen) 1 Each Tablet 1 Tab PO PRN Q6HRS PRN Oxycodone Hcl Immed.release (Oxycodone Hcl) 10 Mg Tablet 1 Tab PO Q12HR Protonix (Pantoprazole Sodium) 20 Mg Tablet.dr 40 Mg PO DAILY Latanoprost 0.005% Eye Drop (Latanoprost/Pf) 7.5 Ml Drops 7.5 Ml OP QHS Voltaren (Diclofenac Sodium) 100 Gm Gel..gram. 1 Gm TP BID Levemir (Insulin Detemir) 100 Unit/1 Ml Vial 8 Unit SQ Novolog (Insulin Aspart) 100 Unit/1 Ml Cartridge 5 Unit SQ BIDAC Zofran Odt (Ondansetron) 4 Mg Tab.rapdis 4 Mg PO Q6HRS PRN Carvedilol (Carvedilol) 12.5 Mg Tablet 12.5 Mg PO BIDWMEALS Cortizone-10 1% Creme (Hydrocortisone/Aloe Vera) 28 Gm Cream..g. Unknown Dose TP PRN DAILY Sensipar (Cinacalcet Hcl) 30 Mg Tablet 1 Tab PO DAILY Renvela (Sevelamer Carbonate) 2.4 Gm Powd.pack 2.4 Gm PO TIDWMEALS Lumigan (Bimatoprost) 2.5 Ml Drops 1 Drop EACHEYE QHS Amitriptyline Hcl 25 Mg Tablet 1 Tab PO QHS Calcitriol 0.25 Mcg Capsule 1 Cap PO DAILY Nephro-Roland Tablet (Folic Acid/Vitamin B Comp W-C) 0.8 Mg Tablet 1 Tab PO DAILYBFRSUP Vitamin D (Cholecalciferol (Vitamin D3)) 2,000 Unit Capsule 1 Cap PO DAILY Cyclobenzaprine Hcl 10 Mg Tablet 1 Tab PO QID Aspir-Low (Aspirin) 81 Mg Tablet. 1 Tab PO DAILY Vitals/I & O Vital Sign - Last 24 Hours 07/10/18 07/10/18 07/10/18 07/10/18 15:30 16:15 16:18 17:55 Temp 98.0 98.0 Pulse 86 63 87 Resp 22 18 B/P (MAP) 110/59 (76) 108/44 (65) 135/52 Pulse Ox 100 95 O2 Delivery Room Air Room Air Room Air 07/10/18 07/10/18 07/10/18 07/10/18 18:00 19:53 20:00 20:00 Temp 99.5 99.5 Pulse 87 82 Resp 17 16 B/P (MAP) 135/52 (79) 104/44 (64) Pulse Ox 94 94 100 O2 Delivery Room Air Room Air Room Air Room Air 07/10/18 07/11/18 07/11/18 07/11/18 23:23 03:04 07:00 07:28 Temp 98.1 97.9 98.1 98.1 97.9 98.1 Pulse 68 72 89 Resp 16 16 16 B/P (MAP) 90/37 (54) 94/40 (58) 102/49 (66) Pulse Ox 90 92 92 O2 Delivery Room Air Room Air Room Air Room Air 07/11/18 07/11/18 07/11/18 07/11/18 07:29 12:39 12:40 13:39 Resp 18 17 Pulse Ox 92 95 95 96 O2 Delivery Room Air Room Air Room Air Room Air 07/11/18 14:55 Temp 97.5 97.5 Pulse 76 Resp 17 B/P (MAP) 80/31 (47) Pulse Ox 93 O2 Delivery Room Air O2 Flow Rate 2.0 Intake and Output 07/10/18 07/10/18 07/11/18 14:59 22:59 06:59 Intake Total 50 ml 120 ml Balance 50 ml 120 ml PARKER MASON MD Jul 11, 2018 15:19
--- NOTE | 2018-07-11 16:18 | RAD ---
CT of the chest without contrast compared to portable chest x-ray dated July 10, 2018 for CHF versus fibrosis. TECHNIQUE: Contiguous helical 5 mm axial images are obtained from the thoracic inlet to the base of the diaphragm. No IV contrast was administered. FINDINGS: There is atelectasis in the lung bases. There is patchy diffuse ground glass opacification primarily in the bilateral upper lobes, with central peribronchial thickening throughout all distributions. Findings likely reflect infectious or inflammatory pneumonitis and bronchitis. No suspicious lung nodules or masses are seen. There is fullness of the central vascularity with cephalization, however no pleural effusions or Marilyn B lines are present to suggest pulmonary edema. The main pulmonary artery is enlarged relative to the aorta suggesting chronic pulmonary artery hypertension. Cardiomegaly is noted with a right atrial predominance. Extensive coronary artery calcifications are seen in multiple distributions. No suspicious mediastinal, hilar, or axillary lymphadenopathy is seen. Perihepatic and left upper quadrant ascites is present. Kidneys are diminutive and atrophic. There are extensive vascular calcifications throughout all arterial distributions including coronary, mesenteric, and renal. Evaluation of the upper abdominal organs is limited by lack of IV contrast. Pancreas is markedly atrophic. There are postsurgical changes of a median sternotomy. Compression deformities are seen at T12 and L1, age indeterminate. IMPRESSION: 1. Cardiomegaly with central vascular congestion, but no evidence of ronn pulmonary edema or congestive heart failure. 2. Patchy groundglass opacification predominantly involving both upper lobes, with diffuse perihilar bronchial thickening bilaterally. These findings suggest infectious or inflammatory bronchitis and pneumonitis. 3. Pulmonary hypertension. 4. Extensive multifocal vasculopathy involving the coronary, mesenteric, and renal arterial circulations. 5. Abdominal ascites. 6. Bilateral severe renal atrophy. 7. Age-indeterminate compression fractures of T12 and L1. PQRS Compliance Statement: One or more of the following individualized dose reduction techniques were utilized for this examination: 1. Automated exposure control 2. Adjustment of the mA and/or kV according to patient size 3. Use of iterative reconstruction technique Electronically signed by: George Walsh MD (07/11/2018 4:15 PM) [id number]
[2018-07-11] MEDS: FOLIC/VIT B COMP W-C (RENAL) TABLET. PO SCH (17:00)
--- NOTE | 2018-07-11 17:31 | CARD ---
MR#: [id number] Date of Study: 07/11/2018 Ordering Physician: ERINN ROCKWELL, Referring Physician: ERINN ROCKWELL Tech: Mavis Nunez [facility] APPROVED REPORT EXAM: Two-dimensional and M-mode echocardiogram with Doppler and color Doppler. Other Information Quality : Technically LimitedHR: 72bpm Rhythm : NSRTechnically limited study due to body habitus. INDICATION Dyspnea 2D DIMENSIONS RVDd4.1 (2.9-3.5cm)Left Atrium(2D)4.0 (1.6-4.0cm) IVSd1.1 (0.7-1.1cm)Aortic Root(2D)3.5 (2.0-3.7cm) LVDd4.7 (3.9-5.9cm)LVOT Diameter1.9 (1.8-2.4cm) PWd0.9 (0.7-1.1cm)LVDs3.9 (2.5-4.0cm) FS (%) 18.3 %SV39.3 ml LVEF(%)38.0 (>50%) Aortic Valve AoV Peak Manav.143.0cm/sAoV VTI25.6cm AO Peak GR.8.2mmHgLVOT VTI 19.03cm AO Mean GR.4mmHgAVA (VMAX)2.10cm2 SARAH (VTI)2.10cm2 Mitral Valve MV E Bymvmkpf53.4cm/sMV E Peak Gr.56mmHg MV DECEL [id number] A Gtqijopb99.4cm/s MV E Mean Gr.2mmHgE/A Ratio3.3 MV A [id number] Tricuspid Valve TR P. Gfzhnpnm333xg/sRAP [id number] TR Peak Gr.41ekVtJGAB21wvEw LEFT VENTRICLE The left ventricle is normal size. There is normal left ventricular wall thickness. The systolic func tion is mildly to moderately impaired. The Ejection Fraction is 40%. There is a flattened septum cons istent with right ventricle volume and pressure overload. There is global hypokinesis of the left grecia tricle. Tissue Doppler imaging reveals moderate left ventricular diastolic dysfunction. RIGHT VENTRICLE The right ventricle is moderately dilated. The right ventricle is mildly hypertrophied. Systolic func tion is mildly reduced. ATRIA The left atrium is mildly dilated. The right atrium is moderately dilated. The interatrial septum is intact with no evidence for an atrial septal defect or patent foramen ovale as noted on 2-D or Dopple r imaging. AORTIC VALVE The aortic valve is trileaflet. It appears sclerotic. Doppler and Color Flow revealed no significant aortic regurgitation. There is no significant aortic valvular stenosis. MITRAL VALVE Mitral annular calcification is mild to moderate. There is no evidence of mitral valve prolapse. Ther e is no mitral valve stenosis. Doppler and Color-flow revealed mild mitral regurgitation. TRICUSPID VALVE The tricuspid valve is normal in structure and function. Doppler and Color Flow revealed severe tricu spid regurgitation. The PA pressure was estimated to be at least 51 mmHg but probably underestimated due to the wide open appearing regurgitation. There is no tricuspid valve prolapse or vegetation. The re is no tricuspid valve stenosis. PULMONIC VALVE The pulmonic valve is not well visualized. GREAT VESSELS The aortic root is normal in size. The ascending aorta is normal in size. The IVC is dilated and jake apses <50% with inspiration. PERICARDIAL EFFUSION There is no evidence of significant pericardial effusion. Critical Notification Critical Value: No <Conclusion> The systolic function is mildly to moderately impaired. The Ejection Fraction is 40%. There is a flattened septum consistent with right ventricle volume and pressure overload. There is gl obal hypokinesis of the left ventricle. The right ventricle is moderately dilated. Doppler and Color Flow revealed severe tricuspid regurgitation. The PA pressure was estimated to be a t least 51 mmHg but probably underestimated due severe regurgitation. Signed by : Ryan Guerrero, Electronically Approved : 07/11/2018 17:31:00
--- NOTE | 2018-07-11 18:40 | NUR ---
Pt is awake and alert. Reports "she was sleeping good." Pt took some water but not interested in eating. Daughter is at bedside and visiting with pt.
[2018-07-11] MEDS: traMADol 50 MG TABLET PO PRN (19:54)
[2018-07-11] MEDS: LATANOPROST 0.005% OPHTH SOLUTION 2.5ML BOTTLE. OU SCH (19:54)
[2018-07-11] MEDS: AMITRIPTYLINE HCL 25 MG TABLET. PO SCH (19:55)
[2018-07-11] MEDS: INSULIN GLARGINE 300 UNITS/3 ML INSULN.PEN. SQ SCH (21:05)
[2018-07-12] MEDS: guaiFENesin DM 200MG/20MG 10 ML SYRUP PO PRN ×3 (02:47→20:21)
[2018-07-12] MEDS: traMADol 50 MG TABLET PO PRN (02:48)
[2018-07-12 03:10] VITALS: BP 98/30
[2018-07-12 05:44] LABS: BASO % 1 % (0-3); EOS # 0.1 x10^3/uL (0.0-0.7); EOS % 2 % (0-3); HEMATOCRIT 33.6 % (36.0-47.0); HEMOGLOBIN 11.1 g/dL (12.0-15.5); LYMPH # 0.4 x10^3/uL (1.0-4.8); LYMPH % 7 % (24-48); MEAN CORPUSCULAR HEMOGLOBIN 35 pg (25-35); MEAN CORPUSCULAR HGB CONC 33 g/dL (31-37); MEAN CORPUSCULAR VOLUME 106 fL (79-100); MONO # 0.7 x10^3/uL (0.0-1.1); MONO % 12 % (0-9); NEUT # 4.7 x10^3uL (1.8-7.7); NEUT % 80 % (31-73); PLATELET COUNT 104 x10^3/uL (140-400); RED BLOOD COUNT 3.15 x10^6/uL (3.50-5.40); RED CELL DISTRIBUTION WIDTH 15.7 % (11.5-14.5); WHITE BLOOD COUNT 5.9 x10^3/uL (4.0-11.0)
[2018-07-12 06:09] LABS: ALBUMIN 2.8 g/dL (3.4-5.0); ALBUMIN/GLOBULIN RATIO 0.8 (1.0-1.7); CALCIUM 8.5 mg/dL (8.5-10.1); GFR 9.9; POTASSIUM 4.9 mmol/L (3.5-5.1); TOTAL BILIRUBIN 0.9 mg/dL (0.2-1.0); TOTAL PROTEIN 6.3 g/dL (6.4-8.2)
[2018-07-12 07:00] VITALS: BP_SYST 145; BP_SYST 70; BP_DIAS 38; BP_DIAS 74
[2018-07-12] MEDS: IPRATRPIUM/ALBUTEROL 0.5/2.5MG 3 ML NEBU. NEB SCH ×4 (07:39→19:38)
[2018-07-12] MEDS ORDERED: IV NORMAL SALINE 1000ML BAG 1,000 ML IV PRN ×2 (07:48)
[2018-07-12] MEDS: SEVELAMER CARBONATE 2.4 GM PACKET. PO SCH ×3 (08:00→17:59)
[2018-07-12] MEDS: INSULIN LISPRO 300 UNITS/3 ML INSULN.PEN. SQ SCH ×5 (08:00→17:00)
[2018-07-12] MEDS: CARVEDILOL 12.5 MG TABLET. PO SCH (08:00)
[2018-07-12] MEDS ORDERED: DIALYSIS PATIENT. MC PRN ×2 (08:00)
[2018-07-12] MEDS: CYCLOBENZAPRINE 10 MG TABLET. PO SCH (09:00)
--- NOTE | 2018-07-12 09:36 | PDOC ---
PULMONARY PROGRESS NOTES Subjective on hd, is tired, bp low, has cough, sputum, no sob Vitals Vital Signs Date Time Temp Pulse Resp B/P (MAP) Pulse Ox O2 Delivery O2 Flow Rate FiO2 07/12/18 07:41 99 Nasal Cannula 2.0 07/12/18 07:00 98.3 77 18 70/38 (49) 98.3 ROS: No Nausea General: Alert, No acute distress HEENT: Other (nc at perrl) Lungs: Crackles Cardiovascular: S1, S2 Abdomen: Soft Neuro Exam: Alert Extremities: Other Skin: Warm Labs Laboratory Tests Test 07/10/18 13:38 07/10/18 13:47 07/10/18 16:00 07/10/18 16:56 Influenza Type A Antigen Negative (NEGATIVE) Influenza Type B Antigen Negative (NEGATIVE) White Blood Count 7.7 x10^3/uL (4.0-11.0) Red Blood Count 3.35 x10^6/uL (3.50-5.40) Hemoglobin 11.8 g/dL (12.0-15.5) Hematocrit 35.3 % (36.0-47.0) Mean Corpuscular Volume 105 fL (79-100) Mean Corpuscular Hemoglobin 35 pg (25-35) Mean Corpuscular Hemoglobin Concent 33 g/dL (31-37) Red Cell Distribution Width 15.3 % (11.5-14.5) Platelet Count 117 x10^3/uL (140-400) Neutrophils (%) (Auto) 78 % (31-73) Lymphocytes (%) (Auto) 10 % (24-48) Monocytes (%) (Auto) 11 % (0-9) Eosinophils (%) (Auto) 0 % (0-3) Basophils (%) (Auto) 1 % (0-3) Neutrophils # (Auto) 6.0 x10^3uL (1.8-7.7) Lymphocytes # (Auto) 0.7 x10^3/uL (1.0-4.8) Monocytes # (Auto) 0.9 x10^3/uL (0.0-1.1) Eosinophils # (Auto) 0.0 x10^3/uL (0.0-0.7) Basophils # (Auto) 0.1 x10^3/uL (0.0-0.2) Segmented Neutrophils % 78 % (35-66) Lymphocytes % 11 % (24-48) Monocytes % 10 % (0-10) Basophils % 1 % (0-3) Platelet Estimate Decreased (ADEQUATE) Macrocytosis Slight Prothrombin Time 15.3 SEC (11.7-14.0) Prothromb Time International Ratio 1.2 (0.8-1.1) Sodium Level 139 mmol/L (136-145) Potassium Level 5.6 mmol/L (3.5-5.1) Chloride Level 99 mmol/L (98-107) Carbon Dioxide Level 29 mmol/L (21-32) Anion Gap 11 (6-14) Blood Urea Nitrogen 46 mg/dL (7-20) Creatinine 6.4 mg/dL (0.6-1.0) Estimated GFR (Cockcroft-Gault) 7.5 BUN/Creatinine Ratio 7 (6-20) Glucose Level 119 mg/dL (70-99) Lactic Acid Level 1.8 mmol/L (0.4-2.0) Calcium Level 10.0 mg/dL (8.5-10.1) Total Bilirubin 0.9 mg/dL (0.2-1.0) Aspartate Amino Transf (AST/SGOT) 18 U/L (15-37) Alanine Aminotransferase (ALT/SGPT) 12 U/L (14-59) Alkaline Phosphatase 261 U/L (46-116) Troponin I Quantitative 0.080 ng/mL (0.000-0.055) UC-Ftm-L-Type Natriuretic Peptide 52969 pg/mL (0-449) Total Protein 6.9 g/dL (6.4-8.2) Albumin 3.1 g/dL (3.4-5.0) Albumin/Globulin Ratio 0.8 (1.0-1.7) Nasal Screen MRSA (PCR) Negative (Negative) Glucose (Fingerstick) 124 mg/dL (70-99) Test 07/10/18 20:38 07/11/18 07:25 07/11/18 12:49 07/11/18 16:39 Glucose (Fingerstick) 146 mg/dL (70-99) 173 mg/dL (70-99) 114 mg/dL (70-99) 103 mg/dL (70-99) Test 07/11/18 20:52 07/12/18 04:11 07/12/18 05:15 07/12/18 07:12 Glucose (Fingerstick) 109 mg/dL (70-99) 93 mg/dL (70-99) White Blood Count 5.9 x10^3/uL (4.0-11.0) Red Blood Count 3.15 x10^6/uL (3.50-5.40) Hemoglobin 11.1 g/dL (12.0-15.5) Hematocrit 33.6 % (36.0-47.0) Mean Corpuscular Volume 106 fL (79-100) Mean Corpuscular Hemoglobin 35 pg (25-35) Mean Corpuscular Hemoglobin Concent 33 g/dL (31-37) Red Cell Distribution Width 15.7 % (11.5-14.5) Platelet Count 104 x10^3/uL (140-400) Neutrophils (%) (Auto) 80 % (31-73) Lymphocytes (%) (Auto) 7 % (24-48) Monocytes (%) (Auto) 12 % (0-9) Eosinophils (%) (Auto) 2 % (0-3) Basophils (%) (Auto) 1 % (0-3) Neutrophils # (Auto) 4.7 x10^3uL (1.8-7.7) Lymphocytes # (Auto) 0.4 x10^3/uL (1.0-4.8) Monocytes # (Auto) 0.7 x10^3/uL (0.0-1.1) Eosinophils # (Auto) 0.1 x10^3/uL (0.0-0.7) Basophils # (Auto) 0.0 x10^3/uL (0.0-0.2) Sodium Level 137 mmol/L (136-145) Potassium Level 4.9 mmol/L (3.5-5.1) Chloride Level 98 mmol/L (98-107) Carbon Dioxide Level 32 mmol/L (21-32) Anion Gap 7 (6-14) Blood Urea Nitrogen 31 mg/dL (7-20) Creatinine 5.0 mg/dL (0.6-1.0) Estimated GFR (Cockcroft-Gault) 9.9 BUN/Creatinine Ratio 6 (6-20) Glucose Level 98 mg/dL (70-99) Calcium Level 8.5 mg/dL (8.5-10.1) Total Bilirubin 0.9 mg/dL (0.2-1.0) Aspartate Amino Transf (AST/SGOT) 34 U/L (15-37) Alanine Aminotransferase (ALT/SGPT) 16 U/L (14-59) Alkaline Phosphatase 200 U/L (46-116) Total Protein 6.3 g/dL (6.4-8.2) Albumin 2.8 g/dL (3.4-5.0) Albumin/Globulin Ratio 0.8 (1.0-1.7) Laboratory Tests Test 07/11/18 12:49 07/11/18 16:39 07/11/18 20:52 07/12/18 04:11 Glucose (Fingerstick) 114 mg/dL (70-99) 103 mg/dL (70-99) 109 mg/dL (70-99) White Blood Count 5.9 x10^3/uL (4.0-11.0) Red Blood Count 3.15 x10^6/uL (3.50-5.40) Hemoglobin 11.1 g/dL (12.0-15.5) Hematocrit 33.6 % (36.0-47.0) Mean Corpuscular Volume 106 fL (79-100) Mean Corpuscular Hemoglobin 35 pg (25-35) Mean Corpuscular Hemoglobin Concent 33 g/dL (31-37) Red Cell Distribution Width 15.7 % (11.5-14.5) Platelet Count 104 x10^3/uL (140-400) Neutrophils (%) (Auto) 80 % (31-73) Lymphocytes (%) (Auto) 7 % (24-48) Monocytes (%) (Auto) 12 % (0-9) Eosinophils (%) (Auto) 2 % (0-3) Basophils (%) (Auto) 1 % (0-3) Neutrophils # (Auto) 4.7 x10^3uL (1.8-7.7) Lymphocytes # (Auto) 0.4 x10^3/uL (1.0-4.8) Monocytes # (Auto) 0.7 x10^3/uL (0.0-1.1) Eosinophils # (Auto) 0.1 x10^3/uL (0.0-0.7) Basophils # (Auto) 0.0 x10^3/uL (0.0-0.2) Test 07/12/18 05:15 07/12/18 07:12 Sodium Level 137 mmol/L (136-145) Potassium Level 4.9 mmol/L (3.5-5.1) Chloride Level 98 mmol/L (98-107) Carbon Dioxide Level 32 mmol/L (21-32) Anion Gap 7 (6-14) Blood Urea Nitrogen 31 mg/dL (7-20) Creatinine 5.0 mg/dL (0.6-1.0) Estimated GFR (Cockcroft-Gault) 9.9 BUN/Creatinine Ratio 6 (6-20) Glucose Level 98 mg/dL (70-99) Calcium Level 8.5 mg/dL (8.5-10.1) Total Bilirubin 0.9 mg/dL (0.2-1.0) Aspartate Amino Transf (AST/SGOT) 34 U/L (15-37) Alanine Aminotransferase (ALT/SGPT) 16 U/L (14-59) Alkaline Phosphatase 200 U/L (46-116) Total Protein 6.3 g/dL (6.4-8.2) Albumin 2.8 g/dL (3.4-5.0) Albumin/Globulin Ratio 0.8 (1.0-1.7) Glucose (Fingerstick) 93 mg/dL (70-99) Medications Active Scripts Medications Dose Route/Sig Max Daily Dose Days Date Category Aspirin 325 Mg Tablet 1 Tab PO DAILY 04/16/18 Rx Ibuprofen 800 Mg Tablet 800 Mg PO PRN Q8HRS PRN 11/06/17 Reported Percocet 10-325 Mg Tablet (Oxycodone/Acetaminophen) 1 Each Tablet 1 Tab PO PRN Q6HRS PRN 11/06/17 Reported Oxycodone Hcl Immed.release (Oxycodone Hcl) 10 Mg Tablet 1 Tab PO Q12HR 11/06/17 Reported Protonix (Pantoprazole Sodium) 20 Mg Tablet.dr 40 Mg PO DAILY 11/06/17 Reported Latanoprost 0.005% Eye Drop (Latanoprost/Pf) 7.5 Ml Drops 7.5 Ml OP QHS 11/06/17 Reported Voltaren (Diclofenac Sodium) 100 Gm Gel..gram. 1 Gm TP BID 7/11/18 Reported Levemir (Insulin Detemir) 100 Unit/1 Ml Vial 8 Unit SQ 10/30/17 Reported Novolog (Insulin Aspart) 100 Unit/1 Ml Cartridge 5 Unit SQ BIDAC 10/30/17 Reported Zofran Odt (Ondansetron) 4 Mg Tab.rapdis 4 Mg PO Q6HRS PRN 10/30/17 Reported Carvedilol (Carvedilol) 12.5 Mg Tablet 12.5 Mg PO BIDWMEALS 10/30/17 Reported Tramadol Hcl 50 Mg Tablet 1 Tab PO PRN Q6HRS 03/28/17 Rx Cortizone-10 1% Creme (Hydrocortisone/Aloe Vera) 28 Gm Cream..g. Unknown Dose TP PRN DAILY 03/26/17 Reported Sensipar (Cinacalcet Hcl) 30 Mg Tablet 1 Tab PO DAILY 02/04/17 Reported Renvela (Sevelamer Carbonate) 2.4 Gm Powd.pack 2.4 Gm PO TIDWMEALS 02/04/17 Reported Lumigan (Bimatoprost) 2.5 Ml Drops 1 Drop EACHEYE QHS 02/04/17 Reported Amitriptyline Hcl 25 Mg Tablet 1 Tab PO QHS 01/18/17 Reported Calcitriol 0.25 Mcg Capsule 1 Cap PO DAILY 01/18/17 Reported Nephro-Roland Tablet (Folic Acid/Vitamin B Comp W-C) 0.8 Mg Tablet 1 Tab PO DAILYBFRSUP 11/26/15 Reported Vitamin D (Cholecalciferol (Vitamin D3)) 2,000 Unit Capsule 1 Cap PO DAILY 11/26/15 Reported Cyclobenzaprine Hcl 10 Mg Tablet 1 Tab PO QID 11/26/15 Reported Aspir-Low (Aspirin) 81 Mg Tablet.dr 1 Tab PO DAILY 11/26/[address] 1. Cardiomegaly with central vascular congestion, but no evidence of ronn pulmonary edema or congestive heart failure. 2. Patchy groundglass opacification predominantly involving both upper lobes, with diffuse perihilar bronchial thickening bilaterally. These findings suggest infectious or inflammatory bronchitis and pneumonitis. 3. Pulmonary hypertension. 4. Extensive multifocal vasculopathy involving the coronary, mesenteric, and renal arterial circulations. 5. Abdominal ascites. 6. Bilateral severe renal atrophy. Impression . IMPRESSION: 1. Mildly prominent interstitial markings, probably related to mild interstitial edema. Clinically, less likely congestive heart failure. ? pneumonitis, acute bronchitis 2. Encephalopathy, narcotic-induced. I have recommended to discontinue any narcotic pain medication. 3. End-stage renal disease, on hemodialysis. 4. Diastolic dysfunction. We will obtain echo to better assess for any valvular heart disease. Plan . RECOMMENDATIONS: 1. noncontrast CT chest reviewed, ?pneumonitis/bronchitis, will add rocephin. 2. Discontinue all narcotics. 3. add bronchodilator 4. ultrafiltration with hemodialysis per nephro. Discussed with RN. We will follow along with you. CLARITA GRANADOS MD Jul 12, 2018 09:36
--- NOTE | 2018-07-12 11:20 | PDOC ---
PROGRESS NOTES Chief Complaint Chief Complaint 1. ESRD on HD 2. CHF, with diastolic failrue 3. COPD with bronchitis, 4. [facility] resident, weakness and debility 5. COugh, SOA 6. pulmonary fibrosis 7. DM2 History of Present Illness History of Present Illness wheezing and cough today, she feels weak, has been lethargic, blood pressure low today, will change coreg dose to lowest, hold elavil and flexeril, consult CV due to HD this AM, some fluid overload on lung, but hypotensive PT and OT if able DNR Vitals Vitals Vital Signs Date Time Temp Pulse Resp B/P (MAP) Pulse Ox O2 Delivery O2 Flow Rate FiO2 07/12/18 08:00 Nasal Cannula 2.0 07/12/18 07:41 99 07/12/18 07:00 98.3 77 18 70/38 (49) 98.3 Physical Exam Physical Exam poorly oriented 06/02 General: Alert, Cooperative, No acute distress, mild distress Heart: Regular rate, Normal S1, Normal S2, Gallops Lungs: Crackles Abdomen: Normal bowel sounds, Soft, No tenderness Extremities: No clubbing, No cyanosis, Other (MILD CHRONIC LE EDEMA BILATERALLY ) Skin: No rashes, No breakdown Labs LABS Laboratory Tests Test 07/11/18 12:49 07/11/18 16:39 07/11/18 20:52 07/12/18 04:11 Glucose (Fingerstick) 114 mg/dL (70-99) 103 mg/dL (70-99) 109 mg/dL (70-99) White Blood Count 5.9 x10^3/uL (4.0-11.0) Red Blood Count 3.15 x10^6/uL (3.50-5.40) Hemoglobin 11.1 g/dL (12.0-15.5) Hematocrit 33.6 % (36.0-47.0) Mean Corpuscular Volume 106 fL (79-100) Mean Corpuscular Hemoglobin 35 pg (25-35) Mean Corpuscular Hemoglobin Concent 33 g/dL (31-37) Red Cell Distribution Width 15.7 % (11.5-14.5) Platelet Count 104 x10^3/uL (140-400) Neutrophils (%) (Auto) 80 % (31-73) Lymphocytes (%) (Auto) 7 % (24-48) Monocytes (%) (Auto) 12 % (0-9) Eosinophils (%) (Auto) 2 % (0-3) Basophils (%) (Auto) 1 % (0-3) Neutrophils # (Auto) 4.7 x10^3uL (1.8-7.7) Lymphocytes # (Auto) 0.4 x10^3/uL (1.0-4.8) Monocytes # (Auto) 0.7 x10^3/uL (0.0-1.1) Eosinophils # (Auto) 0.1 x10^3/uL (0.0-0.7) Basophils # (Auto) 0.0 x10^3/uL (0.0-0.2) Test 07/12/18 05:15 07/12/18 07:12 Sodium Level 137 mmol/L (136-145) Potassium Level 4.9 mmol/L (3.5-5.1) Chloride Level 98 mmol/L (98-107) Carbon Dioxide Level 32 mmol/L (21-32) Anion Gap 7 (6-14) Blood Urea Nitrogen 31 mg/dL (7-20) Creatinine 5.0 mg/dL (0.6-1.0) Estimated GFR (Cockcroft-Gault) 9.9 BUN/Creatinine Ratio 6 (6-20) Glucose Level 98 mg/dL (70-99) Calcium Level 8.5 mg/dL (8.5-10.1) Total Bilirubin 0.9 mg/dL (0.2-1.0) Aspartate Amino Transf (AST/SGOT) 34 U/L (15-37) Alanine Aminotransferase (ALT/SGPT) 16 U/L (14-59) Alkaline Phosphatase 200 U/L (46-116) Total Protein 6.3 g/dL (6.4-8.2) Albumin 2.8 g/dL (3.4-5.0) Albumin/Globulin Ratio 0.8 (1.0-1.7) Glucose (Fingerstick) 93 mg/dL (70-99) Assessment and Plan Assessmemt and Plan Problems Medical Problems: (1) Cough Status: Acute (2) Dyspnea Status: Acute (3) ESRD (end stage renal disease) Status: Acute Comment Review of Relevant I have reviewed the following items smith (where applicable) has been applied. Labs Laboratory Tests Test 07/10/18 13:38 07/10/18 13:47 07/10/18 16:00 07/10/18 16:56 Influenza Type A Antigen Negative (NEGATIVE) Influenza Type B Antigen Negative (NEGATIVE) White Blood Count 7.7 x10^3/uL (4.0-11.0) Red Blood Count 3.35 x10^6/uL (3.50-5.40) Hemoglobin 11.8 g/dL (12.0-15.5) Hematocrit 35.3 % (36.0-47.0) Mean Corpuscular Volume 105 fL (79-100) Mean Corpuscular Hemoglobin 35 pg (25-35) Mean Corpuscular Hemoglobin Concent 33 g/dL (31-37) Red Cell Distribution Width 15.3 % (11.5-14.5) Platelet Count 117 x10^3/uL (140-400) Neutrophils (%) (Auto) 78 % (31-73) Lymphocytes (%) (Auto) 10 % (24-48) Monocytes (%) (Auto) 11 % (0-9) Eosinophils (%) (Auto) 0 % (0-3) Basophils (%) (Auto) 1 % (0-3) Neutrophils # (Auto) 6.0 x10^3uL (1.8-7.7) Lymphocytes # (Auto) 0.7 x10^3/uL (1.0-4.8) Monocytes # (Auto) 0.9 x10^3/uL (0.0-1.1) Eosinophils # (Auto) 0.0 x10^3/uL (0.0-0.7) Basophils # (Auto) 0.1 x10^3/uL (0.0-0.2) Segmented Neutrophils % 78 % (35-66) Lymphocytes % 11 % (24-48) Monocytes % 10 % (0-10) Basophils % 1 % (0-3) Platelet Estimate Decreased (ADEQUATE) Macrocytosis Slight Prothrombin Time 15.3 SEC (11.7-14.0) Prothromb Time International Ratio 1.2 (0.8-1.1) Sodium Level 139 mmol/L (136-145) Potassium Level 5.6 mmol/L (3.5-5.1) Chloride Level 99 mmol/L (98-107) Carbon Dioxide Level 29 mmol/L (21-32) Anion Gap 11 (6-14) Blood Urea Nitrogen 46 mg/dL (7-20) Creatinine 6.4 mg/dL (0.6-1.0) Estimated GFR (Cockcroft-Gault) 7.5 BUN/Creatinine Ratio 7 (6-20) Glucose Level 119 mg/dL (70-99) Lactic Acid Level 1.8 mmol/L (0.4-2.0) Calcium Level 10.0 mg/dL (8.5-10.1) Total Bilirubin 0.9 mg/dL (0.2-1.0) Aspartate Amino Transf (AST/SGOT) 18 U/L (15-37) Alanine Aminotransferase (ALT/SGPT) 12 U/L (14-59) Alkaline Phosphatase 261 U/L (46-116) Troponin I Quantitative 0.080 ng/mL (0.000-0.055) SY-[id number]-M-Type Natriuretic Peptide 37806 pg/mL (0-449) Total Protein 6.9 g/dL (6.4-8.2) Albumin 3.1 g/dL (3.4-5.0) Albumin/Globulin Ratio 0.8 (1.0-1.7) Nasal Screen MRSA (PCR) Negative (Negative) Glucose (Fingerstick) 124 mg/dL (70-99) Test 07/10/18 20:38 07/11/18 07:25 07/11/18 12:49 07/11/18 16:39 Glucose (Fingerstick) 146 mg/dL (70-99) 173 mg/dL (70-99) 114 mg/dL (70-99) 103 mg/dL (70-99) Test 07/11/18 20:52 07/12/18 04:11 07/12/18 05:15 07/12/18 07:12 Glucose (Fingerstick) 109 mg/dL (70-99) 93 mg/dL (70-99) White Blood Count 5.9 x10^3/uL (4.0-11.0) Red Blood Count 3.15 x10^6/uL (3.50-5.40) Hemoglobin 11.1 g/dL (12.0-15.5) Hematocrit 33.6 % (36.0-47.0) Mean Corpuscular Volume 106 fL (79-100) Mean Corpuscular Hemoglobin 35 pg (25-35) Mean Corpuscular Hemoglobin Concent 33 g/dL (31-37) Red Cell Distribution Width 15.7 % (11.5-14.5) Platelet Count 104 x10^3/uL (140-400) Neutrophils (%) (Auto) 80 % (31-73) Lymphocytes (%) (Auto) 7 % (24-48) Monocytes (%) (Auto) 12 % (0-9) Eosinophils (%) (Auto) 2 % (0-3) Basophils (%) (Auto) 1 % (0-3) Neutrophils # (Auto) 4.7 x10^3uL (1.8-7.7) Lymphocytes # (Auto) 0.4 x10^3/uL (1.0-4.8) Monocytes # (Auto) 0.7 x10^3/uL (0.0-1.1) Eosinophils # (Auto) 0.1 x10^3/uL (0.0-0.7) Basophils # (Auto) 0.0 x10^3/uL (0.0-0.2) Sodium Level 137 mmol/L (136-145) Potassium Level 4.9 mmol/L (3.5-5.1) Chloride Level 98 mmol/L (98-107) Carbon Dioxide Level 32 mmol/L (21-32) Anion Gap 7 (6-14) Blood Urea Nitrogen 31 mg/dL (7-20) Creatinine 5.0 mg/dL (0.6-1.0) Estimated GFR (Cockcroft-Gault) 9.9 BUN/Creatinine Ratio 6 (6-20) Glucose Level 98 mg/dL (70-99) Calcium Level 8.5 mg/dL (8.5-10.1) Total Bilirubin 0.9 mg/dL (0.2-1.0) Aspartate Amino Transf (AST/SGOT) 34 U/L (15-37) Alanine Aminotransferase (ALT/SGPT) 16 U/L (14-59) Alkaline Phosphatase 200 U/L (46-116) Total Protein 6.3 g/dL (6.4-8.2) Albumin 2.8 g/dL (3.4-5.0) Albumin/Globulin Ratio 0.8 (1.0-1.7) Laboratory Tests Test 07/11/18 12:49 07/11/18 16:39 07/11/18 20:52 07/12/18 04:11 Glucose (Fingerstick) 114 mg/dL (70-99) 103 mg/dL (70-99) 109 mg/dL (70-99) White Blood Count 5.9 x10^3/uL (4.0-11.0) Red Blood Count 3.15 x10^6/uL (3.50-5.40) Hemoglobin 11.1 g/dL (12.0-15.5) Hematocrit 33.6 % (36.0-47.0) Mean Corpuscular Volume 106 fL (79-100) Mean Corpuscular Hemoglobin 35 pg (25-35) Mean Corpuscular Hemoglobin Concent 33 g/dL (31-37) Red Cell Distribution Width 15.7 % (11.5-14.5) Platelet Count 104 x10^3/uL (140-400) Neutrophils (%) (Auto) 80 % (31-73) Lymphocytes (%) (Auto) 7 % (24-48) Monocytes (%) (Auto) 12 % (0-9) Eosinophils (%) (Auto) 2 % (0-3) Basophils (%) (Auto) 1 % (0-3) Neutrophils # (Auto) 4.7 x10^3uL (1.8-7.7) Lymphocytes # (Auto) 0.4 x10^3/uL (1.0-4.8) Monocytes # (Auto) 0.7 x10^3/uL (0.0-1.1) Eosinophils # (Auto) 0.1 x10^3/uL (0.0-0.7) Basophils # (Auto) 0.0 x10^3/uL (0.0-0.2) Test 07/12/18 05:15 07/12/18 07:12 Sodium Level 137 mmol/L (136-145) Potassium Level 4.9 mmol/L (3.5-5.1) Chloride Level 98 mmol/L (98-107) Carbon Dioxide Level 32 mmol/L (21-32) Anion Gap 7 (6-14) Blood Urea Nitrogen 31 mg/dL (7-20) Creatinine 5.0 mg/dL (0.6-1.0) Estimated GFR (Cockcroft-Gault) 9.9 BUN/Creatinine Ratio 6 (6-20) Glucose Level 98 mg/dL (70-99) Calcium Level 8.5 mg/dL (8.5-10.1) Total Bilirubin 0.9 mg/dL (0.2-1.0) Aspartate Amino Transf (AST/SGOT) 34 U/L (15-37) Alanine Aminotransferase (ALT/SGPT) 16 U/L (14-59) Alkaline Phosphatase 200 U/L (46-116) Total Protein 6.3 g/dL (6.4-8.2) Albumin 2.8 g/dL (3.4-5.0) Albumin/Globulin Ratio 0.8 (1.0-1.7) Glucose (Fingerstick) 93 mg/dL (70-99) Microbiology 07/10/18 Blood Culture - Preliminary, Resulted NO GROWTH AFTER 1 DAY Medications Current Medications Albuterol/ Ipratropium (Duoneb) 3 ml 1X ONCE NEB Last administered on 13:47; Start 07/10/18 at 13:30; Stop 07/10/18 at 13:31; Status DC Amitriptyline HCl (Elavil) 25 mg QHS PO Last administered on 07/11/18 19:55; Start 07/10/18 at 21:00 Aspirin (Tracee Aspirin) 325 mg DAILY PO Last administered on 07/11/18 12:53; Start 07/10/18 at 16:00 Aspirin (Ecotrin) 81 mg DAILY PO ; Start 07/11/18 at 09:00; Stop 07/11/18 at 09: 00; Status DC Carvedilol (Coreg) 12.5 mg BIDWMEALS PO Last administered on 07/10/18 17:55; Start 07/10/18 at 17:00 Cinacalcet (Sensipar) 30 mg DAILY PO Last administered on 07/11/18 12:53; Start 07/10/18 at 16:00 Cyclobenzaprine HCl (Flexeril) 10 mg QID PO Last administered on 07/11/18 13: 00; Start 07/10/18 at 17:00 Diclofenac Sodium (Voltaren) 1 grisel BID TP Last administered on 3/15/19at 12:52 ; Start 07/10/18 at 21:00 Vitamin B Complex/ Vitamin C (Bela-Roland) 1 tab DAILYBFRSUP PO Last administered on 07/10/18at 17:44; Start 07/10/18 at 17:00 Ondansetron HCl (Zofran Odt) 4 mg PRN Q6HRS PRN PO NAUSEA/VOMITING; Start 07/10 at 15:15; Status Cancel Oxycodone/ Acetaminophen (Percocet 10/325) 1 tab PRN Q6HRS PRN PO SEVERE PAIN Last administered on 07/11/18 12:39; Start 07/10/18 at 15:15; Stop 07/11/18 at 13:50; Status DC Sevelamer Carbonate (Renvela) 2.4 gm TIDWMEALS PO Last administered on 12:53; Start 07/10/18 at 17:00 Tramadol HCl (Ultram) 50 mg PRN Q6HRS PRN PO MILD TO MODERATE PAIN Last administered on 07/12/18 02:48; Start 07/10/18 at 15:15 Non-Formulary Medication (Bimatoprost (Lumigan)) 1 drop QHS EACHEYE ; Start at 21:00; Stop 07/10/18 at 21:00; Status DC Calcitriol (Rocaltrol) 0.25 mcg DAILY PO Last administered on 07/11/18 12:53; Start 07/10/18 at 16:00 Vitamin D (Vitamin D3) 2,000 unit DAILY PO Last administered on 07/11/18 12:53 ; Start 07/11/18 at 09:00 Ibuprofen (Motrin) 800 mg PRN Q8HRS PRN PO INFLAMMATION; Start 07/10/18 at 15: 45 Insulin Human Lispro (HumaLOG) 5 units BIDWMEALS SQ ; Start 07/10/18 at 17:00 Latanoprost (Xalatan) 1 drop QHS OU Last administered on 07/11/18at 19:54; Start 07/10/18 at 21:00 Non-Formulary Medication (Oxycodone Hcl (Oxycodone Hcl Immed.release)) 1 tab Q12HR PO ; Start 07/10/18 at 21:00; Stop 07/10/18 at 21:00; Status DC Pantoprazole Sodium (Protonix) 40 mg DAILYAC PO Last administered on 07/11/18at 12:52; Start 07/10/18 at 16:30 Insulin Glargine (Lantus) 8 units QHS SQ ; Start 07/10/18 at 21:00 Insulin Human Lispro (HumaLOG) 0-9 UNITS TIDWMEALS SQ ; Start 07/10/18 at 17:00 Dextrose (Dextrose 50%-Water Syringe) 12.5 gm PRN Q15MIN PRN IV SEE COMMENTS; Start 07/10/18 at 15:30 Acetaminophen (Tylenol) 500 mg PRN Q6HRS PRN PO MILD PAIN / TEMP; Start at 15:30 Calcium Carbonate/ Glycine (Tums) 500 mg PRN AFTMEALHC PRN PO INDIGESTION; Start 07/10/18 at 15:30 Ondansetron HCl (Zofran) 4 mg PRN Q6HRS PRN IV NAUSEA/VOMITING; Start 07/10/18 at 15:30 Ondansetron HCl (Zofran Odt) 4 mg PRN Q6HRS PRN PO NAUSEA/VOMITING; Start 07/10 at 15:30 Albuterol/ Ipratropium (Duoneb) 3 ml RTQID NEB Last administered on 07/12/18at 07:39; Start 07/10/18 at 16:00 Guaifenesin (Robitussin Dm) 10 ml PRN Q6HRS PRN PO COUGH Last administered on at 02:47; Start 07/10/18 at 15:30 Sodium Chloride 1,000 ml @ 1,000 mls/hr Q1H PRN IV hypotension; Start 07/11/18 at 07:22; Stop 07/11/18 at 13:21; Status DC Sodium Chloride 1,000 ml @ 400 mls/hr Q2H30M PRN IV PATENCY; Start 07/11/18 at 07:22; Stop 07/11/18 at 19:21; Status DC Info (PHARMACY MONITORING -- do not chart) 1 each PRN DAILY PRN MC SEE COMMENTS ; Start 07/11/18 at 07:30; Status UNV Info (PHARMACY MONITORING -- do not chart) 1 each PRN DAILY PRN MC SEE COMMENTS ; Start 07/11/18 at 07:30; Stop 07/12/18 at 07:55; Status DC Benzonatate (Tessalon Perle) 100 mg [id number] PO Last administered on 07/11/18at 19 :55; Start 07/11/18 at 14:00 Sodium Chloride 1,000 ml @ 1,000 mls/hr Q1H PRN IV hypotension; Start 07/12/18 at 07:48; Stop 07/12/18 at 13:47 Sodium Chloride 1,000 ml @ 400 mls/hr Q2H30M PRN IV PATENCY; Start 07/12/18 at 07:48; Stop 07/12/18 at 19:47 Info (PHARMACY MONITORING -- do not chart) 1 each PRN DAILY PRN MC SEE COMMENTS ; Start 07/12/18 at 08:00 Info (PHARMACY MONITORING -- do not chart) 1 each PRN DAILY PRN MC SEE COMMENTS ; Start 07/12/18 at 08:00; Status UNV Ceftriaxone Sodium (Rocephin) 1 gm Q24H IVP ; Start 07/12/18 at 10:00 Albuterol/ Ipratropium (Duoneb) 3 ml RTQID NEB ; Start 07/12/18 at 12:00; Status UNV Active Scripts Active Aspirin 325 Mg Tablet 1 Tab PO DAILY Tramadol Hcl 50 Mg Tablet 1 Tab PO PRN Q6HRS Reported Ibuprofen 800 Mg Tablet 800 Mg PO PRN Q8HRS PRN Percocet 10-325 Mg Tablet (Oxycodone/Acetaminophen) 1 Each Tablet 1 Tab PO PRN Q6HRS PRN Oxycodone Hcl Immed.release (Oxycodone Hcl) 10 Mg Tablet 1 Tab PO Q12HR Protonix (Pantoprazole Sodium) 20 Mg Tablet.dr 40 Mg PO DAILY Latanoprost 0.005% Eye Drop (Latanoprost/Pf) 7.5 Ml Drops 7.5 Ml OP QHS Voltaren (Diclofenac Sodium) 100 Gm Gel..gram. 1 Gm TP BID Levemir (Insulin Detemir) 100 Unit/1 Ml Vial 8 Unit SQ Novolog (Insulin Aspart) 100 Unit/1 Ml Cartridge 5 Unit SQ BIDAC Zofran Odt (Ondansetron) 4 Mg Tab.rapdis 4 Mg PO Q6HRS PRN Carvedilol (Carvedilol) 12.5 Mg Tablet 12.5 Mg PO BIDWMEALS Cortizone-10 1% Creme (Hydrocortisone/Aloe Vera) 28 Gm Cream..g. Unknown Dose TP PRN DAILY Sensipar (Cinacalcet Hcl) 30 Mg Tablet 1 Tab PO DAILY Renvela (Sevelamer Carbonate) 2.4 Gm Powd.pack 2.4 Gm PO TIDWMEALS Lumigan (Bimatoprost) 2.5 Ml Drops 1 Drop EACHEYE QHS Amitriptyline Hcl 25 Mg Tablet 1 Tab PO QHS Calcitriol 0.25 Mcg Capsule 1 Cap PO DAILY Nephro-Roland Tablet (Folic Acid/Vitamin B Comp W-C) 0.8 Mg Tablet 1 Tab PO DAILYBFRSUP Vitamin D (Cholecalciferol (Vitamin D3)) 2,000 Unit Capsule 1 Cap PO DAILY Cyclobenzaprine Hcl 10 Mg Tablet 1 Tab PO QID Aspir-Low (Aspirin) 81 Mg Tablet. 1 Tab PO DAILY Vitals/I & O Vital Sign - Last 24 Hours 07/11/18 07/11/18 07/11/18 07/11/18 12:39 12:40 13:39 14:55 Temp 97.5 97.5 Pulse 76 Resp 18 17 17 B/P (MAP) 80/31 (47) Pulse Ox 95 95 96 93 O2 Delivery Room Air Room Air Room Air Room Air O2 Flow Rate 2.0 07/11/18 07/11/18 07/11/18 07/11/18 17:05 17:20 19:10 20:05 Temp 99.4 97.9 99.4 97.9 Pulse 70 75 Resp 18 B/P (MAP) 95/42 (59) 90/50 (63) Pulse Ox 100 99 92 O2 Delivery Nasal Cannula Nasal Cannula Nasal Cannula Nasal Cannula O2 Flow Rate 2.0 2.0 2.0 2.0 07/11/18 07/11/18 07/12/18 07/12/18 20:47 23:10 03:10 07:00 Temp 98.8 97.6 98.3 98.8 97.6 98.3 Pulse 76 63 77 Resp 20 20 18 B/P (MAP) 94/45 (61) 98/30 (52) 70/38 (49) Pulse Ox 98 95 93 96 O2 Delivery Nasal Cannula Nasal Cannula Nasal Cannula Nasal Cannula O2 Flow Rate 2.0 2.0 2.0 2.0 07/12/18 07/12/18 07:41 08:00 Pulse Ox 99 O2 Delivery Nasal Cannula Nasal Cannula O2 Flow Rate 2.0 2.0 Intake and Output 07/11/18 07/11/18 07/12/18 14:59 22:59 06:59 Intake Total 0 ml 100 ml 50 ml Output Total 0 ml 0 ml Balance 0 ml 100 ml 50 ml PARKER MASON MD Jul 12, 2018 11:20
--- NOTE | 2018-07-12 11:34 | PDOC ---
Renal-Progress Notes Subjective Notes Notes SOME COUGHING History of Present Illness Hx of present illness BETTER Vitals Vitals Vital Signs Date Time Temp Pulse Resp B/P (MAP) Pulse Ox O2 Delivery O2 Flow Rate FiO2 07/12/18 08:00 Nasal Cannula 2.0 07/12/18 07:41 99 07/12/18 07:00 98.3 77 18 70/38 (49) 98.3 Weight Weight [ ] I.O. Intake and Output Intake and Output 07/12/18 07:00 Intake Total 150 ml Output Total 0 ml Balance 150 ml Intake Oral 150 ml Output Urine Total 0 ml Labs Labs Laboratory Tests Test 07/11/18 12:49 07/11/18 16:39 07/11/18 20:52 07/12/18 04:11 Glucose (Fingerstick) 114 mg/dL (70-99) 103 mg/dL (70-99) 109 mg/dL (70-99) White Blood Count 5.9 x10^3/uL (4.0-11.0) Red Blood Count 3.15 x10^6/uL (3.50-5.40) Hemoglobin 11.1 g/dL (12.0-15.5) Hematocrit 33.6 % (36.0-47.0) Mean Corpuscular Volume 106 fL (79-100) Mean Corpuscular Hemoglobin 35 pg (25-35) Mean Corpuscular Hemoglobin Concent 33 g/dL (31-37) Red Cell Distribution Width 15.7 % (11.5-14.5) Platelet Count 104 x10^3/uL (140-400) Neutrophils (%) (Auto) 80 % (31-73) Lymphocytes (%) (Auto) 7 % (24-48) Monocytes (%) (Auto) 12 % (0-9) Eosinophils (%) (Auto) 2 % (0-3) Basophils (%) (Auto) 1 % (0-3) Neutrophils # (Auto) 4.7 x10^3uL (1.8-7.7) Lymphocytes # (Auto) 0.4 x10^3/uL (1.0-4.8) Monocytes # (Auto) 0.7 x10^3/uL (0.0-1.1) Eosinophils # (Auto) 0.1 x10^3/uL (0.0-0.7) Basophils # (Auto) 0.0 x10^3/uL (0.0-0.2) Test 07/12/18 05:15 07/12/18 07:12 Sodium Level 137 mmol/L (136-145) Potassium Level 4.9 mmol/L (3.5-5.1) Chloride Level 98 mmol/L (98-107) Carbon Dioxide Level 32 mmol/L (21-32) Anion Gap 7 (6-14) Blood Urea Nitrogen 31 mg/dL (7-20) Creatinine 5.0 mg/dL (0.6-1.0) Estimated GFR (Cockcroft-Gault) 9.9 BUN/Creatinine Ratio 6 (6-20) Glucose Level 98 mg/dL (70-99) Calcium Level 8.5 mg/dL (8.5-10.1) Total Bilirubin 0.9 mg/dL (0.2-1.0) Aspartate Amino Transf (AST/SGOT) 34 U/L (15-37) Alanine Aminotransferase (ALT/SGPT) 16 U/L (14-59) Alkaline Phosphatase 200 U/L (46-116) Total Protein 6.3 g/dL (6.4-8.2) Albumin 2.8 g/dL (3.4-5.0) Albumin/Globulin Ratio 0.8 (1.0-1.7) Glucose (Fingerstick) 93 mg/dL (70-99) Micro Micro Microbiology 07/10/18 Blood Culture - Preliminary, Resulted NO GROWTH AFTER 1 DAY Review of Systems Constitutional: yes: weakness, alert, oriented Ears/Nose/Throat: Yes: no symptom reported Pulmonary: Yes dyspnea Cardiovascular: Yes no symptom reported Gastrointestional: Yes: no symptom reported Genitourinary: Yes: no symptom reported Musculoskeletal: Yes: no symptom reported Skin: Yes no symptom reported Psychiatric/Neurological: Yes: no symptom reported Endocrine: Yes: no symptom reported Physical Exam General Appearance: no apparent distress Skin: warm Respiratory: decreased breath sounds Heart: S1S2 Abdomen: soft, bowel sounds present Genitourinary: bladder flat Extremities: pulses present Neurology: alert Assessment Assessment IMP ESRD ANEMIA DM II HTN ENCEPHALOPATHY-RESOLVED [id number] PLAN HD TODAY UF TO [facility] FOR TTS [facility] WHEN NEEDED WILL FOLLOW NANCY CALERO MD Jul 12, 2018 11:34
[2018-07-12] MEDS ORDERED: IPRATRPIUM/ALBUTEROL 0.5/2.5MG 3 ML NEBU. NEB SCH (12:00)
--- NOTE | 2018-07-12 12:49 | CONS ---
DATE OF CONSULTATION: 07/12/2018 REASON FOR CONSULTATION: Low blood pressure. HISTORY OF PRESENT ILLNESS: The patient is an 87-year-old woman with multiple comorbidities as noted below, presenting to the hospital with dyspnea. Cardiology was asked to evaluate her due to her history and low blood pressures. In speaking with the patient, she mostly complains of dyspnea at baseline and is mostly wheelchair dependent and lives in an assisted living facility with her . She has had, what she perceives to be, a cold and a cough for the last few weeks, which has been bothersome to her. She does have some orthopnea and lower extremity edema. She reports compliance with her medication and her dialysis sessions. PAST MEDICAL HISTORY: 1. Coronary artery disease, status post bypass, unknown grafts. 2. Hypertension. 3. End-stage renal disease. 4. Hypertension. 5. Diastolic heart failure. 6. Diabetes. FAMILY HISTORY: Noncontributory. SOCIAL HISTORY: No alcohol, tobacco or illicit drug use. She lives with her in an assisted living facility, as noted. ALLERGIES: MORPHINE. CURRENT CARDIAC MEDICATIONS: Carvedilol 3.125 mg b.i.d. REVIEW OF SYSTEMS: As noted above in the HPI, but otherwise negative. PHYSICAL EXAMINATION: VITAL SIGNS: Afebrile, 77, 18, 70/38 and 96% on 2 liters nasal cannula. GENERAL: She was alert and oriented to person, place and time. HEAD AND NECK EXAMINATION: Notable for elevated neck veins, suggestive of mild TR. HEART: Normal heart tones, but distant. LUNGS: Decreased breath sounds bilaterally. ABDOMEN: Obese, protuberant, tenderness to palpation in the lower quadrants. EXTREMITIES: With 1+ pitting edema bilaterally. NEUROLOGIC: No focal deficits, but overall she is quite weak. MUSCULOSKELETAL: No obvious trauma. DIAGNOSTIC STUDIES: Hemoglobin 11.1 and stable. Platelets 104,000. Potassium within normal limits. Initial troponin elevated at 0.80. CT of the chest performed yesterday reveals cardiomegaly with central vascular congestion. She has pulmonary hypertension and abdominal ascites. Echocardiogram performed on 07/11/2018 reveals mildly decreased ejection fraction at about 40%. She has right ventricular pressure overload and volume overload. She has severe tricuspid regurgitation as well. IMPRESSION: 1. [id number] systolic and diastolic heart failure in the setting of severe tricuspid regurgitation and cor pulmonale. 2. End-stage renal disease. 3. Hypotension. RECOMMENDATIONS: 1. At this present time, stop her carvedilol. 2. We will continue and try to dialyze as able. 3. If she has persistent hypotension, could add oral midodrine and/or put her on IV pressor therapy to decrease her volume, which should overall improve her cardiac efficiency. Thank you for this consultation. She is a complex patient with multiple comorbidities and I discussed everything with her at bedside. DENISE CRUZ MD DR: MICHAEL/regan JOB#: [id number] / [id number]
[2018-07-12] MEDS: BENZONATATE 100 MG CAPSULE. PO SCH ×3 (13:03→20:22)
[2018-07-12] MEDS: CINACALCET HCL 30 MG TABLET PO SCH (13:03)
[2018-07-12] MEDS: ASPIRIN 325 MG TABLET PO SCH (13:04)
[2018-07-12] MEDS: CALCITRIOL 0.25 MCG CAPSULE. PO SCH (13:04)
[2018-07-12] MEDS: CHOLECALCIFEROL (VITAMIN D3) 1,000 UNIT TABLET PO SCH (13:04)
[2018-07-12] MEDS: PANTOPRAZOLE 40 MG TABLET.DR. PO SCH (13:04)
[2018-07-12] MEDS: DICLOFENAC SODIUM 1% TOPICAL GEL 100GM TUBE. TP SCH ×2 (13:05→20:21)
[2018-07-12] MEDS: ACETAMINOPHEN 500 MG TABLET PO PRN (13:05)
[2018-07-12] MEDS: cefTRIAXone IV Push 1 GM VIAL. IVP SCH (13:14)
[2018-07-12 14:41] VITALS: BP 91/55
[2018-07-12] MEDS ORDERED: CARVEDILOL 3.125 MG TABLET. PO SCH (17:00)
[2018-07-12] MEDS: FOLIC/VIT B COMP W-C (RENAL) TABLET. PO SCH (18:00)
[2018-07-12 19:49] VITALS: BP 97/44
[2018-07-12] MEDS: LATANOPROST 0.005% OPHTH SOLUTION 2.5ML BOTTLE. OU SCH (20:21)
[2018-07-12] MEDS: INSULIN GLARGINE 300 UNITS/3 ML INSULN.PEN. SQ SCH (20:23)
[2018-07-12 23:49] VITALS: BP 96/41
[2018-07-13 03:40] VITALS: BP 81/48
[2018-07-13] MEDS: guaiFENesin DM 200MG/20MG 10 ML SYRUP PO PRN ×3 (03:54→20:59)
[2018-07-13] MEDS: IPRATRPIUM/ALBUTEROL 0.5/2.5MG 3 ML NEBU. NEB SCH ×4 (06:14→19:45)
[2018-07-13 07:00] VITALS: BP 98/37
[2018-07-13] MEDS: INSULIN LISPRO 300 UNITS/3 ML INSULN.PEN. SQ SCH ×5 (08:00→18:41)
[2018-07-13] MEDS: SEVELAMER CARBONATE 2.4 GM PACKET. PO SCH ×3 (08:06→18:34)
[2018-07-13] MEDS: BENZONATATE 100 MG CAPSULE. PO SCH ×3 (08:07→20:59)
[2018-07-13] MEDS: CINACALCET HCL 30 MG TABLET PO SCH (08:07)
[2018-07-13] MEDS: ASPIRIN 325 MG TABLET PO SCH (08:07)
[2018-07-13] MEDS: CHOLECALCIFEROL (VITAMIN D3) 1,000 UNIT TABLET PO SCH (08:08)
[2018-07-13] MEDS: IBUPROFEN 200 MG TABLET. PO PRN ×2 (08:08→18:34)
[2018-07-13] MEDS: CALCITRIOL 0.25 MCG CAPSULE. PO SCH (08:09)
[2018-07-13] MEDS: DICLOFENAC SODIUM 1% TOPICAL GEL 100GM TUBE. TP SCH ×2 (08:09→21:05)
[2018-07-13] MEDS: PANTOPRAZOLE 40 MG TABLET.DR. PO SCH (08:09)
--- NOTE | 2018-07-13 09:09 | PDOC ---
PULMONARY PROGRESS NOTES Subjective sob better, has cough, has back pain, is tired Vitals Vital Signs Date Time Temp Pulse Resp B/P (MAP) Pulse Ox O2 Delivery O2 Flow Rate FiO2 07/13/18 07:00 98.4 83 19 98/37 (57) 92 Nasal Cannula 2.0 98.4 ROS: No Nausea General: Alert, No acute distress HEENT: Other (nc at perrl) Lungs: Crackles Cardiovascular: S1, S2 Abdomen: Soft Neuro Exam: Alert Extremities: Other Skin: Warm Labs Laboratory Tests Test 07/11/18 12:49 07/11/18 16:39 07/11/18 20:52 07/12/18 04:11 Glucose (Fingerstick) 114 mg/dL (70-99) 103 mg/dL (70-99) 109 mg/dL (70-99) White Blood Count 5.9 x10^3/uL (4.0-11.0) Red Blood Count 3.15 x10^6/uL (3.50-5.40) Hemoglobin 11.1 g/dL (12.0-15.5) Hematocrit 33.6 % (36.0-47.0) Mean Corpuscular Volume 106 fL (79-100) Mean Corpuscular Hemoglobin 35 pg (25-35) Mean Corpuscular Hemoglobin Concent 33 g/dL (31-37) Red Cell Distribution Width 15.7 % (11.5-14.5) Platelet Count 104 x10^3/uL (140-400) Neutrophils (%) (Auto) 80 % (31-73) Lymphocytes (%) (Auto) 7 % (24-48) Monocytes (%) (Auto) 12 % (0-9) Eosinophils (%) (Auto) 2 % (0-3) Basophils (%) (Auto) 1 % (0-3) Neutrophils # (Auto) 4.7 x10^3uL (1.8-7.7) Lymphocytes # (Auto) 0.4 x10^3/uL (1.0-4.8) Monocytes # (Auto) 0.7 x10^3/uL (0.0-1.1) Eosinophils # (Auto) 0.1 x10^3/uL (0.0-0.7) Basophils # (Auto) 0.0 x10^3/uL (0.0-0.2) Test 07/12/18 05:15 07/12/18 07:12 07/12/18 16:18 07/12/18 20:22 Sodium Level 137 mmol/L (136-145) Potassium Level 4.9 mmol/L (3.5-5.1) Chloride Level 98 mmol/L (98-107) Carbon Dioxide Level 32 mmol/L (21-32) Anion Gap 7 (6-14) Blood Urea Nitrogen 31 mg/dL (7-20) Creatinine 5.0 mg/dL (0.6-1.0) Estimated GFR (Cockcroft-Gault) 9.9 BUN/Creatinine Ratio 6 (6-20) Glucose Level 98 mg/dL (70-99) Calcium Level 8.5 mg/dL (8.5-10.1) Total Bilirubin 0.9 mg/dL (0.2-1.0) Aspartate Amino Transf (AST/SGOT) 34 U/L (15-37) Alanine Aminotransferase (ALT/SGPT) 16 U/L (14-59) Alkaline Phosphatase 200 U/L (46-116) Total Protein 6.3 g/dL (6.4-8.2) Albumin 2.8 g/dL (3.4-5.0) Albumin/Globulin Ratio 0.8 (1.0-1.7) Glucose (Fingerstick) 93 mg/dL (70-99) 116 mg/dL (70-99) 87 mg/dL (70-99) Test 07/13/18 06:51 Glucose (Fingerstick) 97 mg/dL (70-99) Laboratory Tests Test 07/12/18 16:18 07/12/18 20:22 07/13/18 06:51 Glucose (Fingerstick) 116 mg/dL (70-99) 87 mg/dL (70-99) 97 mg/dL (70-99) Medications Active Scripts Medications Dose Route/Sig Max Daily Dose Days Date Category Aspirin 325 Mg Tablet 1 Tab PO DAILY 04/16/18 Rx Ibuprofen 800 Mg Tablet 800 Mg PO PRN Q8HRS PRN 11/06/17 Reported Percocet 10-325 Mg Tablet (Oxycodone/Acetaminophen) 1 Each Tablet 1 Tab PO PRN Q6HRS PRN 11/06/17 Reported Oxycodone Hcl Immed.release (Oxycodone Hcl) 10 Mg Tablet 1 Tab PO Q12HR 11/06/17 Reported Protonix (Pantoprazole Sodium) 20 Mg Tablet.dr 40 Mg PO DAILY 11/06/17 Reported Latanoprost 0.005% Eye Drop (Latanoprost/Pf) 7.5 Ml Drops 7.5 Ml OP QHS 11/06/17 Reported Voltaren (Diclofenac Sodium) 100 Gm Gel..gram. 1 Gm TP BID 11/06/17 Reported Levemir (Insulin Detemir) 100 Unit/1 Ml Vial 8 Unit SQ 10/30/17 Reported Novolog (Insulin Aspart) 100 Unit/1 Ml Cartridge 5 Unit SQ BIDAC 10/30/17 Reported Zofran Odt (Ondansetron) 4 Mg Tab.rapdis 4 Mg PO Q6HRS PRN 10/30/17 Reported Carvedilol (Carvedilol) 12.5 Mg Tablet 12.5 Mg PO BIDWMEALS 10/30/17 Reported Tramadol Hcl 50 Mg Tablet 1 Tab PO PRN Q6HRS 03/28/17 Rx Cortizone-10 1% Creme (Hydrocortisone/Aloe Vera) 28 Gm Cream..g. Unknown Dose TP PRN DAILY 03/26/17 Reported Sensipar (Cinacalcet Hcl) 30 Mg Tablet 1 Tab PO DAILY 02/04/17 Reported Renvela (Sevelamer Carbonate) 2.4 Gm Powd.pack 2.4 Gm PO TIDWMEALS 02/04/17 Reported Lumigan (Bimatoprost) 2.5 Ml Drops 1 Drop EACHEYE QHS 02/04/17 Reported Amitriptyline Hcl 25 Mg Tablet 1 Tab PO QHS 01/18/17 Reported Calcitriol 0.25 Mcg Capsule 1 Cap PO DAILY 01/18/17 Reported Nephro-Roland Tablet (Folic Acid/Vitamin B Comp W-C) 0.8 Mg Tablet 1 Tab PO DAILYBFRSUP 11/26/15 Reported Vitamin D (Cholecalciferol (Vitamin D3)) 2,000 Unit Capsule 1 Cap PO DAILY 11/26/15 Reported Cyclobenzaprine Hcl 10 Mg Tablet 1 Tab PO QID 11/26/15 Reported Aspir-Low (Aspirin) 81 Mg Tablet.dr 1 Tab PO DAILY 7/30/[address] 1. Cardiomegaly with central vascular congestion, but no evidence of ronn pulmonary edema or congestive heart failure. 2. Patchy groundglass opacification predominantly involving both upper lobes, with diffuse perihilar bronchial thickening bilaterally. These findings suggest infectious or inflammatory bronchitis and pneumonitis. 3. Pulmonary hypertension. 4. Extensive multifocal vasculopathy involving the coronary, mesenteric, and renal arterial circulations. 5. Abdominal ascites. 6. Bilateral severe renal atrophy. Impression . IMPRESSION: 1. Mildly prominent interstitial markings, probably related to mild interstitial edema. Clinically, less likely congestive heart failure. ? pneumonitis, acute bronchitis 2. Encephalopathy, narcotic-induced. I have recommended to discontinue any narcotic pain medication. 3. End-stage renal disease, on hemodialysis. 4. Diastolic dysfunction. We will obtain echo to better assess for any valvular heart disease. Plan . RECOMMENDATIONS: 1. noncontrast CT chest reviewed, ?pneumonitis/bronchitis, cont rocephin. 2. Discontinue all narcotics. 3. bronchodilator 4. ultrafiltration with hemodialysis per nephro. Discussed with RN. We will follow along with you. CLARITA GRANADOS MD Jul 13, 2018 09:09
[2018-07-13] MEDS: cefTRIAXone IV Push 1 GM VIAL. IVP SCH (10:28)
[2018-07-13] MEDS: ACETAMINOPHEN 500 MG TABLET PO PRN (10:28)
[2018-07-13 10:39] VITALS: BP 134/99
--- NOTE | 2018-07-13 11:51 | PDOC ---
Renal-Progress Notes Subjective Notes Notes LESS SOB History of Present Illness Hx of present illness STABLE Vitals Vitals Vital Signs Date Time Temp Pulse Resp B/P (MAP) Pulse Ox O2 Delivery O2 Flow Rate FiO2 07/13/18 11:11 97 Nasal Cannula 2.0 07/13/18 10:39 98.8 81 20 134/99 (111) 98.8 Weight Weight [ ] I.O. Intake and Output Intake and Output 07/13/18 06:59 Intake Total 690 ml Output Total 0 ml Balance 690 ml Intake Oral 690 ml Output Urine Total 0 ml Labs Labs Laboratory Tests Test 07/12/18 16:18 07/12/18 20:22 07/13/18 06:51 Glucose (Fingerstick) 116 mg/dL (70-99) 87 mg/dL (70-99) 97 mg/dL (70-99) Micro Micro Microbiology 07/10/18 Blood Culture - Preliminary, Resulted NO GROWTH AFTER 2 DAYS Review of Systems Constitutional: yes: weakness, alert, oriented Ears/Nose/Throat: Yes: no symptom reported Pulmonary: Yes dyspnea Cardiovascular: Yes no symptom reported Gastrointestional: Yes: no symptom reported Genitourinary: Yes: no symptom reported Musculoskeletal: Yes: no symptom reported Skin: Yes no symptom reported Psychiatric/Neurological: Yes: no symptom reported Endocrine: Yes: no symptom reported Physical Exam General Appearance: no apparent distress Skin: warm Respiratory: decreased breath sounds Heart: S1S2 Abdomen: soft, bowel sounds present Genitourinary: bladder flat Extremities: pulses present Neurology: alert Assessment Assessment IMP ESRD ANEMIA DM II HTN ENCEPHALOPATHY-RESOLVED [id number] PROB PNEUMONIA PLAN HD TTS BASILIA WHEN NEEDED ANTIBIOTIC FOR POSS PNEUMONIA WILL FOLLOW NANCY CALERO MD Jul 13, 2018 11:51
--- NOTE | 2018-07-13 12:56 | PDOC ---
Provider Note Provider Note I had a long discussion with the patient's daughter about her clinical status, current cardiac issues. She has known alf afib. We discussed anticoagulation. Patient and family wish to defer for now given risks. Very reasonable. Continue to hold coreg. Rate controlled. Supportive care for now. If tachy, consider metoprolol 12.5mg bid. Continue fluid removal through HD. Pls call with questions. f/u in the office in 4-6 weeks. Thanks DENISE CRUZ MD Jul 13, 2018 12:56
--- NOTE | 2018-07-13 13:25 | PDOC ---
PROGRESS NOTES Chief Complaint Chief Complaint 1. ESRD on HD 2. CHF, with diastolic failrue, with severe tricuspid regurgitation w . corpulmonale and pulm htn 3. COPD with bronchitis, 4. SNU resident, weakness and debility 5. COugh, SOA 6. pulmonary fibrosis 7. DM2 History of Present Illness History of Present Illness up with PT breathing easier family here again today to assist blood pressure much better today plan to SNU in AM, has been at resort, PT and OT if able DNR Vitals Vitals Vital Signs Date Time Temp Pulse Resp B/P (MAP) Pulse Ox O2 Delivery O2 Flow Rate FiO2 07/13/18 11:11 97 Nasal Cannula 2.0 07/13/18 10:39 98.8 81 20 134/99 (111) 98.8 Physical Exam Physical Exam poorly oriented 06/02 General: Alert, Cooperative, No acute distress, mild distress Heart: Regular rate, Normal S1, Normal S2, Gallops Lungs: Crackles Abdomen: Normal bowel sounds, Soft, No tenderness Extremities: No clubbing, No cyanosis, Other (MILD CHRONIC LE EDEMA BILATERALLY ) Skin: No rashes, No breakdown Labs LABS Laboratory Tests Test 07/12/18 16:18 07/12/18 20:22 07/13/18 06:51 07/13/18 11:52 Glucose (Fingerstick) 116 mg/dL (70-99) 87 mg/dL (70-99) 97 mg/dL (70-99) 215 mg/dL (70-99) Assessment and Plan Assessmemt and Plan Problems Medical Problems: (1) Cough Status: Acute (2) Dyspnea Status: Acute (3) ESRD (end stage renal disease) Status: Acute Comment Review of Relevant I have reviewed the following items smith (where applicable) has been applied. Labs Laboratory Tests Test 07/11/18 16:39 07/11/18 20:52 07/12/18 04:11 07/12/18 05:15 Glucose (Fingerstick) 103 mg/dL (70-99) 109 mg/dL (70-99) White Blood Count 5.9 x10^3/uL (4.0-11.0) Red Blood Count 3.15 x10^6/uL (3.50-5.40) Hemoglobin 11.1 g/dL (12.0-15.5) Hematocrit 33.6 % (36.0-47.0) Mean Corpuscular Volume 106 fL (79-100) Mean Corpuscular Hemoglobin 35 pg (25-35) Mean Corpuscular Hemoglobin Concent 33 g/dL (31-37) Red Cell Distribution Width 15.7 % (11.5-14.5) Platelet Count 104 x10^3/uL (140-400) Neutrophils (%) (Auto) 80 % (31-73) Lymphocytes (%) (Auto) 7 % (24-48) Monocytes (%) (Auto) 12 % (0-9) Eosinophils (%) (Auto) 2 % (0-3) Basophils (%) (Auto) 1 % (0-3) Neutrophils # (Auto) 4.7 x10^3uL (1.8-7.7) Lymphocytes # (Auto) 0.4 x10^3/uL (1.0-4.8) Monocytes # (Auto) 0.7 x10^3/uL (0.0-1.1) Eosinophils # (Auto) 0.1 x10^3/uL (0.0-0.7) Basophils # (Auto) 0.0 x10^3/uL (0.0-0.2) Sodium Level 137 mmol/L (136-145) Potassium Level 4.9 mmol/L (3.5-5.1) Chloride Level 98 mmol/L (98-107) Carbon Dioxide Level 32 mmol/L (21-32) Anion Gap 7 (6-14) Blood Urea Nitrogen 31 mg/dL (7-20) Creatinine 5.0 mg/dL (0.6-1.0) Estimated GFR (Cockcroft-Gault) 9.9 BUN/Creatinine Ratio 6 (6-20) Glucose Level 98 mg/dL (70-99) Calcium Level 8.5 mg/dL (8.5-10.1) Total Bilirubin 0.9 mg/dL (0.2-1.0) Aspartate Amino Transf (AST/SGOT) 34 U/L (15-37) Alanine Aminotransferase (ALT/SGPT) 16 U/L (14-59) Alkaline Phosphatase 200 U/L (46-116) Total Protein 6.3 g/dL (6.4-8.2) Albumin 2.8 g/dL (3.4-5.0) Albumin/Globulin Ratio 0.8 (1.0-1.7) Test 07/12/18 07:12 07/12/18 16:18 07/12/18 20:22 07/13/18 06:51 Glucose (Fingerstick) 93 mg/dL (70-99) 116 mg/dL (70-99) 87 mg/dL (70-99) 97 mg/dL (70-99) Test 07/13/18 11:52 Glucose (Fingerstick) 215 mg/dL (70-99) Laboratory Tests Test 07/12/18 16:18 07/12/18 20:22 07/13/18 06:51 07/13/18 11:52 Glucose (Fingerstick) 116 mg/dL (70-99) 87 mg/dL (70-99) 97 mg/dL (70-99) 215 mg/dL (70-99) Microbiology 07/10/18 Blood Culture - Preliminary, Resulted NO GROWTH AFTER 2 DAYS Medications Current Medications Albuterol/ Ipratropium (Duoneb) 3 ml 1X ONCE NEB Last administered on at 13:47; Start 07/10/18 at 13:30; Stop 07/10/18 at 13:31; Status DC Amitriptyline HCl (Elavil) 25 mg QHS PO Last administered on 07/11/18at 19:55; Start 07/10/18 at 21:00; Stop 07/12/18 at 11:19; Status DC Aspirin (Tracee Aspirin) 325 mg DAILY PO Last administered on 07/13/18at 08:07; Start 07/10/18 at 16:00 Aspirin (Ecotrin) 81 mg DAILY PO ; Start 07/11/18 at 09:00; Stop 07/11/18 at 09: 00; Status DC Carvedilol (Coreg) 12.5 mg BIDWMEALS PO Last administered on 07/10/18at 17:55; Start 07/10/18 at 17:00; Stop 07/12/18 at 11:19; Status DC Cinacalcet (Sensipar) 30 mg DAILY PO Last administered on 07/13/18at 08:07; Start 07/10/18 at 16:00 Cyclobenzaprine HCl (Flexeril) 10 mg QID PO Last administered on 07/11/18at 13: 00; Start 07/10/18 at 17:00; Stop 07/12/18 at 11:19; Status DC Diclofenac Sodium (Voltaren) 1 grisel BID TP Last administered on 07/13/18 08:09 ; Start 07/10/18 at 21:00 Vitamin B Complex/ Vitamin C (Bela-Roland) 1 tab DAILYBFRSUP PO Last administered on 07/12/18 18:00; Start 07/10/18 at 17:00 Ondansetron HCl (Zofran Odt) 4 mg PRN Q6HRS PRN PO NAUSEA/VOMITING; Start 07/10 at 15:15; Status Cancel Oxycodone/ Acetaminophen (Percocet 10/325) 1 tab PRN Q6HRS PRN PO SEVERE PAIN Last administered on 07/11/18at 12:39; Start 07/10/18 at 15:15; Stop 07/11/18 at 13:50; Status DC Sevelamer Carbonate (Renvela) 2.4 gm TIDWMEALS PO Last administered on at 12:01; Start 07/10/18 at 17:00 Tramadol HCl (Ultram) 50 mg PRN Q6HRS PRN PO MILD TO MODERATE PAIN Last administered on 07/12/18 02:48; Start 07/10/18 at 15:15 Non-Formulary Medication (Bimatoprost (Lumigan)) 1 drop QHS EACHEYE ; Start at 21:00; Stop 07/10/18 at 21:00; Status DC Calcitriol (Rocaltrol) 0.25 mcg DAILY PO Last administered on 07/13/18at 08:09; Start 07/10/18 at 16:00 Vitamin D (Vitamin D3) 2,000 unit DAILY PO Last administered on 07/13/18 08:08 ; Start 07/11/18 at 09:00 Ibuprofen (Motrin) 800 mg PRN Q8HRS PRN PO INFLAMMATION Last administered on 08:08; Start 07/10/18 at 15:45 Insulin Human Lispro (HumaLOG) 5 units BIDWMEALS SQ ; Start 07/10/18 at 17:00 Latanoprost (Xalatan) 1 drop QHS OU Last administered on 3/16/19at 20:21; Start 07/10/18 at 21:00 Non-Formulary Medication (Oxycodone Hcl (Oxycodone Hcl Immed.release)) 1 tab Q12HR PO ; Start 07/10/18 at 21:00; Stop 07/10/18 at 21:00; Status DC Pantoprazole Sodium (Protonix) 40 mg DAILYAC PO Last administered on 07/13/18 08:09; Start 07/10/18 at 16:30 Insulin Glargine (Lantus) 8 units QHS SQ ; Start 07/10/18 at 21:00 Insulin Human Lispro (HumaLOG) 0-9 UNITS TIDWMEALS SQ Last administered on 07/13at 13:14; Start 07/10/18 at 17:00 Dextrose (Dextrose 50%-Water Syringe) 12.5 gm PRN Q15MIN PRN IV SEE COMMENTS; Start 07/10/18 at 15:30 Acetaminophen (Tylenol) 500 mg PRN Q6HRS PRN PO MILD PAIN / TEMP Last administered on 07/13/18at 10:28; Start 07/10/18 at 15:30 Calcium Carbonate/ Glycine (Tums) 500 mg PRN AFTMEALHC PRN PO INDIGESTION; Start 07/10/18 at 15:30 Ondansetron HCl (Zofran) 4 mg PRN Q6HRS PRN IV NAUSEA/VOMITING; Start 07/10/18 at 15:30 Ondansetron HCl (Zofran Odt) 4 mg PRN Q6HRS PRN PO NAUSEA/VOMITING; Start 07/10 at 15:30 Albuterol/ Ipratropium (Duoneb) 3 ml RTQID NEB Last administered on 07/13/18at 11:11; Start 07/10/18 at 16:00 Guaifenesin (Robitussin Dm) 10 ml PRN Q6HRS PRN PO COUGH Last administered on at 10:28; Start 07/10/18 at 15:30 Sodium Chloride 1,000 ml @ 1,000 mls/hr Q1H PRN IV hypotension; Start 07/11/18 at 07:22; Stop 07/11/18 at 13:21; Status DC Sodium Chloride 1,000 ml @ 400 mls/hr Q2H30M PRN IV PATENCY; Start 07/11/18 at 07:22; Stop 07/11/18 at 19:21; Status DC Info (PHARMACY MONITORING -- do not chart) 1 each PRN DAILY PRN MC SEE COMMENTS ; Start 07/11/18 at 07:30; Status UNV Info (PHARMACY MONITORING -- do not chart) 1 each PRN DAILY PRN MC SEE COMMENTS ; Start 07/11/18 at 07:30; Stop 07/12/18 at 07:55; Status DC Benzonatate (Tessalon Perle) 100 mg [id number] PO Last administered on 07/13/18at 08 :07; Start 07/11/18 at 14:00 Sodium Chloride 1,000 ml @ 1,000 mls/hr Q1H PRN IV hypotension; Start 07/12/18 at 07:48; Stop 07/12/18 at 13:47; Status DC Sodium Chloride 1,000 ml @ 400 mls/hr Q2H30M PRN IV PATENCY; Start 07/12/18 at 07:48; Stop 07/12/18 at 19:47; Status DC Info (PHARMACY MONITORING -- do not chart) 1 each PRN DAILY PRN MC SEE COMMENTS ; Start 07/12/18 at 08:00 Info (PHARMACY MONITORING -- do not chart) 1 each PRN DAILY PRN MC SEE COMMENTS ; Start 07/12/18 at 08:00; Status UNV Ceftriaxone Sodium (Rocephin) 1 gm Q24H IVP Last administered on 07/13/18at 10: 28; Start 07/12/18 at 10:00 Albuterol/ Ipratropium (Duoneb) 3 ml RTQID NEB ; Start 07/12/18 at 12:00; Status UNV Carvedilol (Coreg) 3.125 mg BIDWMEALS PO ; Start 07/12/18 at 17:00; Stop at 17:00; Status DC Lactobacillus Rhamnosus (Culturelle) 1 cap BID PO ; Start 07/13/18 at 21:00 Active Scripts Active Aspirin 325 Mg Tablet 1 Tab PO DAILY Tramadol Hcl 50 Mg Tablet 1 Tab PO PRN Q6HRS Reported Ibuprofen 800 Mg Tablet 800 Mg PO PRN Q8HRS PRN Percocet 10-325 Mg Tablet (Oxycodone/Acetaminophen) 1 Each Tablet 1 Tab PO PRN Q6HRS PRN Oxycodone Hcl Immed.release (Oxycodone Hcl) 10 Mg Tablet 1 Tab PO Q12HR Protonix (Pantoprazole Sodium) 20 Mg Tablet.dr 40 Mg PO DAILY Latanoprost 0.005% Eye Drop (Latanoprost/Pf) 7.5 Ml Drops 7.5 Ml OP QHS Voltaren (Diclofenac Sodium) 100 Gm Gel..gram. 1 Gm TP BID Levemir (Insulin Detemir) 100 Unit/1 Ml Vial 8 Unit SQ Novolog (Insulin Aspart) 100 Unit/1 Ml Cartridge 5 Unit SQ BIDAC Zofran Odt (Ondansetron) 4 Mg Tab.rapdis 4 Mg PO Q6HRS PRN Carvedilol (Carvedilol) 12.5 Mg Tablet 12.5 Mg PO BIDWMEALS Cortizone-10 1% Creme (Hydrocortisone/Aloe Vera) 28 Gm Cream..g. Unknown Dose TP PRN DAILY Sensipar (Cinacalcet Hcl) 30 Mg Tablet 1 Tab PO DAILY Renvela (Sevelamer Carbonate) 2.4 Gm Powd.pack 2.4 Gm PO TIDWMEALS Lumigan (Bimatoprost) 2.5 Ml Drops 1 Drop EACHEYE QHS Amitriptyline Hcl 25 Mg Tablet 1 Tab PO QHS Calcitriol 0.25 Mcg Capsule 1 Cap PO DAILY Nephro-Roland Tablet (Folic Acid/Vitamin B Comp W-C) 0.8 Mg Tablet 1 Tab PO DAILYBFRSUP Vitamin D (Cholecalciferol (Vitamin D3)) 2,000 Unit Capsule 1 Cap PO DAILY Cyclobenzaprine Hcl 10 Mg Tablet 1 Tab PO QID Aspir-Low (Aspirin) 81 Mg Tablet. 1 Tab PO DAILY Vitals/I & O Vital Sign - Last 24 Hours 07/12/18 07/12/18 07/12/18 07/12/18 14:41 15:45 19:40 19:49 Temp 98.8 98.7 98.8 98.7 Pulse 57 89 Resp 18 16 B/P (MAP) 91/55 (67) 97/44 (61) Pulse Ox 95 97 97 92 O2 Delivery Nasal Cannula Nasal Cannula Nasal Cannula Nasal Cannula O2 Flow Rate 2.0 2.0 2.0 2.0 07/12/18 07/12/18 07/13/18 07/13/18 20:15 23:49 03:40 06:11 Temp 98.4 98.7 98.4 98.7 Pulse 81 85 Resp 16 20 B/P (MAP) 96/41 (59) 81/48 (59) Pulse Ox 93 91 97 O2 Delivery Nasal Cannula Nasal Cannula Nasal Cannula Nasal Cannula O2 Flow Rate 2.0 2.0 2.0 2.0 07/13/18 07/13/18 07/13/18 07/13/18 07:00 08:00 10:39 11:11 Temp 98.4 98.8 98.4 98.8 Pulse 83 81 Resp 19 20 B/P (MAP) 98/37 (57) 134/99 (111) Pulse Ox 92 100 97 O2 Delivery Nasal Cannula Nasal Cannula Nasal Cannula Nasal Cannula O2 Flow Rate 2.0 2.0 2.0 2.0 Intake and Output 07/12/18 07/12/18 07/13/18 15:00 23:00 07:00 Intake Total 0 ml 350 ml 340 ml Output Total 0 ml 0 ml Balance 0 ml 350 ml 340 ml PARKER MASON MD Jul 13, 2018 13:25
[2018-07-13 14:46] VITALS: BP 82/44
[2018-07-13] MEDS: FOLIC/VIT B COMP W-C (RENAL) TABLET. PO SCH (18:33)
[2018-07-13 19:20] VITALS: BP 76/39
[2018-07-13] MEDS: LATANOPROST 0.005% OPHTH SOLUTION 2.5ML BOTTLE. OU SCH (20:58)
[2018-07-13] MEDS: LACTOBACILLUS RHAMNOSUS GG 1 CAPSULE. PO SCH (20:59)
[2018-07-13] MEDS: INSULIN GLARGINE 300 UNITS/3 ML INSULN.PEN. SQ SCH (21:03)
[2018-07-13 23:46] VITALS: BP 83/37
[2018-07-14 03:03] VITALS: BP 86/50
[2018-07-14 07:00] VITALS: BP 89/43
[2018-07-14] MEDS: IPRATRPIUM/ALBUTEROL 0.5/2.5MG 3 ML NEBU. NEB SCH ×4 (07:26→19:36)
[2018-07-14] MEDS: INSULIN LISPRO 300 UNITS/3 ML INSULN.PEN. SQ SCH ×5 (08:00→17:00)
[2018-07-14] MEDS: SEVELAMER CARBONATE 2.4 GM PACKET. PO SCH ×3 (08:00→17:00)
[2018-07-14] MEDS: LACTOBACILLUS RHAMNOSUS GG 1 CAPSULE. PO SCH ×2 (09:00→21:49)
[2018-07-14] MEDS: BENZONATATE 100 MG CAPSULE. PO SCH ×3 (09:19→21:49)
[2018-07-14] MEDS: guaiFENesin DM 200MG/20MG 10 ML SYRUP PO PRN (09:23)
[2018-07-14] MEDS: DICLOFENAC SODIUM 1% TOPICAL GEL 100GM TUBE. TP SCH ×2 (09:23→21:49)
--- NOTE | 2018-07-14 09:51 | PDOC ---
PULMONARY PROGRESS NOTES Subjective sob better, has cough, has back pain, is tired Vitals Vital Signs Date Time Temp Pulse Resp B/P (MAP) Pulse Ox O2 Delivery O2 Flow Rate FiO2 07/14/18 07:27 93 Room Air 07/14/18 07:00 97.9 88 16 89/43 (58) 97.9 07/13/18 11:11 2.0 ROS: No Nausea General: Alert, No acute distress HEENT: Other (nc at perrl) Lungs: Wheezing (faint) Cardiovascular: S1, S2 Abdomen: Soft Neuro Exam: Alert Extremities: Other Skin: Warm Labs Laboratory Tests Test 07/12/18 16:18 07/12/18 20:22 07/13/18 06:51 07/13/18 11:52 Glucose (Fingerstick) 116 mg/dL (70-99) 87 mg/dL (70-99) 97 mg/dL (70-99) 215 mg/dL (70-99) Test 07/13/18 16:29 07/13/18 20:58 07/14/18 07:23 Glucose (Fingerstick) 139 mg/dL (70-99) 109 mg/dL (70-99) 97 mg/dL (70-99) Laboratory Tests Test 07/13/18 11:52 07/13/18 16:29 07/13/18 20:58 07/14/18 07:23 Glucose (Fingerstick) 215 mg/dL (70-99) 139 mg/dL (70-99) 109 mg/dL (70-99) 97 mg/dL (70-99) Medications Active Scripts Medications Dose Route/Sig Max Daily Dose Days Date Category Aspirin 325 Mg Tablet 1 Tab PO DAILY 04/16/18 Rx Ibuprofen 800 Mg Tablet 800 Mg PO PRN Q8HRS PRN 11/06/17 Reported Percocet 10-325 Mg Tablet (Oxycodone/Acetaminophen) 1 Each Tablet 1 Tab PO PRN Q6HRS PRN 11/06/17 Reported Oxycodone Hcl Immed.release (Oxycodone Hcl) 10 Mg Tablet 1 Tab PO Q12HR 11/06/17 Reported Protonix (Pantoprazole Sodium) 20 Mg Tablet.dr 40 Mg PO DAILY 11/06/17 Reported Latanoprost 0.005% Eye Drop (Latanoprost/Pf) 7.5 Ml Drops 7.5 Ml OP QHS 11/06/17 Reported Voltaren (Diclofenac Sodium) 100 Gm Gel..gram. 1 Gm TP BID 11/06/17 Reported Levemir (Insulin Detemir) 100 Unit/1 Ml Vial 8 Unit SQ 10/30/17 Reported Novolog (Insulin Aspart) 100 Unit/1 Ml Cartridge 5 Unit SQ BIDAC 10/30/17 Reported Zofran Odt (Ondansetron) 4 Mg Tab.rapdis 4 Mg PO Q6HRS PRN 10/30/17 Reported Carvedilol (Carvedilol) 12.5 Mg Tablet 12.5 Mg PO BIDWMEALS 10/30/17 Reported Tramadol Hcl 50 Mg Tablet 1 Tab PO PRN Q6HRS 03/28/17 Rx Cortizone-10 1% Creme (Hydrocortisone/Aloe Vera) 28 Gm Cream..g. Unknown Dose TP PRN DAILY 03/26/17 Reported Sensipar (Cinacalcet Hcl) 30 Mg Tablet 1 Tab PO DAILY 02/04/17 Reported Renvela (Sevelamer Carbonate) 2.4 Gm Powd.pack 2.4 Gm PO TIDWMEALS 02/04/17 Reported Lumigan (Bimatoprost) 2.5 Ml Drops 1 Drop EACHEYE QHS 02/04/17 Reported Amitriptyline Hcl 25 Mg Tablet 1 Tab PO QHS 01/18/17 Reported Calcitriol 0.25 Mcg Capsule 1 Cap PO DAILY 01/18/17 Reported Nephro-Roland Tablet (Folic Acid/Vitamin B Comp W-C) 0.8 Mg Tablet 1 Tab PO DAILYBFRSUP 11/26/15 Reported Vitamin D (Cholecalciferol (Vitamin D3)) 2,000 Unit Capsule 1 Cap PO DAILY 11/26/15 Reported Cyclobenzaprine Hcl 10 Mg Tablet 1 Tab PO QID 11/26/15 Reported Aspir-Low (Aspirin) 81 Mg Tablet.dr 1 Tab PO DAILY 11/26/[address] 1. Cardiomegaly with central vascular congestion, but no evidence of ronn pulmonary edema or congestive heart failure. 2. Patchy groundglass opacification predominantly involving both upper lobes, with diffuse perihilar bronchial thickening bilaterally. These findings suggest infectious or inflammatory bronchitis and pneumonitis. 3. Pulmonary hypertension. 4. Extensive multifocal vasculopathy involving the coronary, mesenteric, and renal arterial circulations. 5. Abdominal ascites. 6. Bilateral severe renal atrophy. Impression . IMPRESSION: 1. Mildly prominent interstitial markings, related to mild interstitial edema. 2. Encephalopathy, narcotic-induced. I have recommended to discontinue any narcotic pain medication. improved. 3. End-stage renal disease, on hemodialysis. 4. CMP (EF40%), Secondary pulmonary HTN 5. Abnormal ct chest c/w CHF Plan . RECOMMENDATIONS: 1. noncontrast CT chest reviewed, c/w CHF 2. Discontinued all narcotics. 3. bronchodilator 4. ultrafiltration with hemodialysis per nephro. 5. Mild wheezing due to CHF Discussed with RN. We will follow along with you. GIAN SHAFFER MD Jul 14, 2018 09:51
[2018-07-14] MEDS: CALCITRIOL 0.25 MCG CAPSULE. PO SCH (10:15)
[2018-07-14] MEDS: ASPIRIN 325 MG TABLET PO SCH (10:15)
[2018-07-14] MEDS: PANTOPRAZOLE 40 MG TABLET.DR. PO SCH (10:15)
[2018-07-14] MEDS: CINACALCET HCL 30 MG TABLET PO SCH (10:15)
[2018-07-14] MEDS: CHOLECALCIFEROL (VITAMIN D3) 1,000 UNIT TABLET PO SCH (10:15)
[2018-07-14 11:00] VITALS: BP 103/50
--- NOTE | 2018-07-14 11:14 | NUR ---
SW following pt. PT/OT recommends SNU. Palliative care consulted to address goals of care. RN reported pt wants to return to [facility] today. SW faxed updated clinicals to [facility]. Will continue to follow. Discussed with RN.
[2018-07-14] MEDS: cefTRIAXone IV Push 1 GM VIAL. IVP SCH (12:01)
[2018-07-14] MEDS ORDERED: HYDROmorphone 2 MG TABLET PO PRN (13:15)
--- NOTE | 2018-07-14 14:20 | NUR ---
AJKE spoke with Brady at [facility] [place] who will be coming to do bedside assessment. Will continue to follow. DOROTHY AMOR. Addendum: 07/14/18 at 1447 by ZEN JOSEPH JAKE requested Tati at [facility] [place] to submit for insurance auth. Discussed with pt's daughter extensively at bedside. Insurance auth for SNU pending. Will continue to follow.
[2018-07-14] MEDS ORDERED: HYDR2TAB31 PO (14:39)
[2018-07-14] MEDS ORDERED: ACET500T68 PO (14:39)
[2018-07-14] MEDS ORDERED: FENT1PAT13 TD (14:39)
--- NOTE | 2018-07-14 14:43 | SNU/HH DC ---
DISCHARGE ORDERS DISCHARGE INFORMATION: DISCHARGE DATE: Jul 15, 2018 FINAL DIAGNOSIS Problems Medical Problems: (1) Cough Status: Acute (2) Dyspnea Status: Acute (3) ESRD (end stage renal disease) Status: Acute CONDITION ON DISCHARGE: Stable CODE STATUS: Code Status: DNR/DNI POST DISCHARGE ORDERS: ACTIVITY ORDERS: Activity as tolerated WEIGHT BEARING STATUS: As tolerated BATHING ORDERS: Shower-keep dressing dry DIET AFTER DISCHARGE: Renal WOUND/INCISION CARE: Ice to area for comfort CHECKS AFTER DISCHARGE: CHECKS AFTER DISCHARGE: Check blood press - daily, Check blood sugar, ac/hs, Weigh Yourself Daily FOLLOW-UP: PHYSICIAN FOLLOW-UP: Nephrology - Dr. Jiang TREATMENT/EQUIPMENT ORDERS: ADAPTIVE EQUIPMENT NEEDED: Hemiwalker, Wheelchair Physical Therapy For: Evalulation/Treatment Occupational Therapy For: Evaluation/Treatment DISCHARGE MEDICATIONS: Home Meds Active Scripts Insulin Detemir (LEVEMIR) 100 Unit/1 Ml Vial, 5 UNIT SQ QHS for dm for 30 Days, #30 VIAL Hold for < 140mg/dL Prov:MAHSA REYNOSO MD 07/15/18 Insulin Aspart (NOVOLOG) 100 Unit/1 Ml Cartridge, 0-5 UNIT SQ TIDAC for DM for 30 Days, #30 EACH Sliding scale: 1u for every 50mg/dL > 150mg/dL Prov:MAHSA REYNOSO MD 07/15/18 Carvedilol (CARVEDILOL ) 12.5 Mg Tablet, 3.125 MG PO BIDWMEALS for CHF for 30 Days, #15 TAB Prov:MAHSA REYNOSO MD 07/15/18 Acetaminophen (ACETAMINOPHEN) 500 Mg Tablet, 500 MG PO PRN Q6HRS PRN for MILD PAIN / TEMP for 30 Days, #120 TAB Prov:MAHSA REYNOSO MD 07/14/18 Hydromorphone Hcl (DILAUDID) 2 Mg Tablet, 2 MG PO PRN TID PRN for SEVERE PAIN for 6 Days, #18 TAB Prov:MAHSA REYNOSO MD 07/14/18 Fentanyl (FENTANYL 12mcg/hr) 1 Each Patch.td72, 1 PATCH TD Q3DAYS for chronic pain for 30 Days, #10 PATCH Prov:MAHSA REYNOSO MD 07/14/18 Aspirin (ASPIRIN) 325 Mg Tablet, 1 TAB PO DAILY, #30 TAB 0 Refills Prov:ISERRA HOBBS MD 04/16/18 Reported Medications Pantoprazole Sodium (PROTONIX) 20 Mg Tablet.dr, 40 MG PO DAILY, TAB 11/06/17 Latanoprost/Pf (Latanoprost 0.005% Eye Drop) 7.5 Ml Drops, 7.5 ML OP QHS, DROP 11/06/17 Diclofenac Sodium (VOLTAREN) 100 Gm Gel..gram., 1 GM TP BID, #100 GM 2 Refills 11/06/17 Ondansetron (ZOFRAN ODT) 4 Mg Tab.rapdis, 4 MG PO Q6HRS PRN for NAUSEA/VOMITING , TAB 10/30/17 Cinacalcet Hcl (SENSIPAR) 30 Mg Tablet, 1 TAB PO DAILY, #30 TAB 11 Refills 02/04/17 Sevelamer Carbonate (RENVELA) 2.4 Gm Powd.pack, 2.4 GM PO TIDWMEALS, PACKET 02/04/17 Bimatoprost (LUMIGAN) 2.5 Ml Drops, 1 DROP EACHEYE QHS, #7.5 ML 3 Refills 02/04/17 Calcitriol (CALCITRIOL) 0.25 Mcg Capsule, 1 CAP PO DAILY for calcium replacement , #30 CAP 5 Refills 01/18/17 Folic Acid/Vitamin B Comp W-C (NEPHRO-RADHA TABLET) 0.8 Mg Tablet, 1 TAB PO DAILYBFRSUP, #90 TAB 3 Refills 11/26/15 Cholecalciferol (Vitamin D3) (VITAMIN D) 2,000 Unit Capsule, 1 CAP PO DAILY, # 30 CAP 3 Refills 11/26/15 Discontinued Reported Medications Ibuprofen (IBUPROFEN) 800 Mg Tablet, 800 MG PO PRN Q8HRS PRN for INFLAMMATION, TAB 11/06/17 Oxycodone/Apap 10-325 (PERCOCET 10-325 MG TABLET ) 1 Each Tablet, 1 TAB PO PRN Q6HRS PRN for PAIN, TAB 0 Refills 11/06/17 Oxycodone Hcl (OXYCODONE HCL IMMED.RELEASE) 10 Mg Tablet, 1 TAB PO Q12HR, #90 TAB 11/06/17 Hydrocortisone/Aloe Vera (Cortizone-10 1% Creme) 28 Gm Cream..g., TP PRN DAILY, EACH 03/26/17 Amitriptyline Hcl (AMITRIPTYLINE HCL) 25 Mg Tablet, 1 TAB PO QHS for depression , #30 TAB 5 Refills 01/18/17 Cyclobenzaprine Hcl (CYCLOBENZAPRINE HCL) 10 Mg Tablet, 1 TAB PO QID for muscle relaxer, #90 TAB 11/26/15 Aspirin (ASPIR-LOW) 81 Mg Tablet., 1 TAB PO DAILY for blood thinner, #30 TAB 3 Refills 11/26/15 MAHSA REYNOSO MD Jul 14, 2018 14:43
--- NOTE | 2018-07-14 14:58 | PDOC2 ---
PALLIATIVE CARE Palliative Care Note Palliative Care Requested by Dr. Guerrero/ Case Management to discuss goals of care. Patient admitted from [facility] on 07/10 with cough weakness, dyspnea. HX of ESRD--on dialysis x 8 years, CHF--EF 40% DM, HTN. Patient alert. Denies pain. Spoke with patient and daughter Racheal Reviewed current medical condition. Discussed with Dr. Clinton Daughter concerned about the amount of pain medication is receiving. Spoke with [facility] concerning amount of Tramadol patient had been receiving prior to admission. According to their records patient was taking Tramadol 50 mg tab on average every 2-4 days. (ordered every 6 hours prn) Patient has caregiver that comes to the [facility] every morning and every evening for a couple of hours to assist with care ( also lives there) Per Nancy at [facility] patient was requiring 2 person assist most of the time. Discussed options for care and difference between palliative and hospice. Patient and daughter want to continue with current treatment plan. (No Hospice) Returning to [facility]. Will need SNU for strengthening. Other options would be 19/11 care paid by pt/family. Confirmed DNR/DNI. Outside the Hospital form completed. Dr. Clinton discussed with daughter pain medication options. Plan: Return to [facility] ---SNU DNR/DNI per patient wishes. HARRISON STUART Jul 14, 2018 14:58
[2018-07-14 15:00] VITALS: BP 130/52
[2018-07-14] MEDS ORDERED: fentaNYL 12MCG/HR PATCH 1 PATCH PATCH.TD72 TD SCH (15:00)
[2018-07-14] MEDS: FOLIC/VIT B COMP W-C (RENAL) TABLET. PO SCH (17:00)
[2018-07-14 19:10] VITALS: BP 99/68
[2018-07-14] MEDS: LATANOPROST 0.005% OPHTH SOLUTION 2.5ML BOTTLE. OU SCH (21:49)
[2018-07-14] MEDS: INSULIN GLARGINE 300 UNITS/3 ML INSULN.PEN. SQ SCH (21:59)
--- NOTE | 2018-07-14 22:29 | PDOC ---
PROGRESS NOTES Chief Complaint Chief Complaint 1. ESRD on HD 2. CHF, with diastolic failrue, with severe tricuspid regurgitation w . corpulmonale and pulm htn 3. COPD with bronchitis, 4. SNU resident, weakness and debility 5. COugh, SOA 6. pulmonary fibrosis 7. DM2 History of Present Illness History of Present Illness up with PT breathing easier family here again today to assist blood pressure much better today Daughter bedside concerned her mother is confused. Patient simply concerned with her pain and states she is contemplating stopping dialysis. Long time spent discussing pain management. Fentanyl patch today 12mcg Palliative care to see. PT and OT if able for skilled services on D/C DNR/DNI Vitals Vitals Vital Signs Date Time Temp Pulse Resp B/P (MAP) Pulse Ox O2 Delivery O2 Flow Rate FiO2 07/14/18 19:38 94 Room Air 07/14/18 19:10 97.9 84 18 99/68 (78) 97.9 07/14/18 18:46 2.0 Physical Exam Physical Exam poorly oriented 2/ General: Alert, Cooperative, No acute distress, mild distress Heart: Regular rate, Normal S1, Normal S2, Gallops Lungs: Wheezing (faint) Abdomen: Normal bowel sounds, Soft, No tenderness Extremities: No clubbing, No cyanosis, Other (MILD CHRONIC LE EDEMA BILATERALLY ) Skin: No rashes, No breakdown Labs LABS Laboratory Tests Test 07/14/18 07:23 07/14/18 12:06 07/14/18 16:49 07/14/18 20:50 Glucose (Fingerstick) 97 mg/dL (70-99) 175 mg/dL (70-99) 171 mg/dL (70-99) 169 mg/dL (70-99) Assessment and Plan Assessmemt and Plan Problems Medical Problems: (1) Cough Status: Acute (2) Dyspnea Status: Acute (3) ESRD (end stage renal disease) Status: Acute Comment Review of Relevant I have reviewed the following items smith (where applicable) has been applied. Labs Laboratory Tests Test 07/13/18 06:51 07/13/18 11:52 07/13/18 16:29 07/13/18 20:58 Glucose (Fingerstick) 97 mg/dL (70-99) 215 mg/dL (70-99) 139 mg/dL (70-99) 109 mg/dL (70-99) Test 07/14/18 07:23 07/14/18 12:06 07/14/18 16:49 07/14/18 20:50 Glucose (Fingerstick) 97 mg/dL (70-99) 175 mg/dL (70-99) 171 mg/dL (70-99) 169 mg/dL (70-99) Laboratory Tests Test 07/14/18 07:23 07/14/18 12:06 07/14/18 16:49 07/14/18 20:50 Glucose (Fingerstick) 97 mg/dL (70-99) 175 mg/dL (70-99) 171 mg/dL (70-99) 169 mg/dL (70-99) Microbiology 07/10/18 Blood Culture - Preliminary, Resulted NO GROWTH AFTER 4 DAYS Medications Current Medications Albuterol/ Ipratropium (Duoneb) 3 ml 1X ONCE NEB Last administered on at 13:47; Start 07/10/18 at 13:30; Stop 07/10/18 at 13:31; Status DC Amitriptyline HCl (Elavil) 25 mg QHS PO Last administered on 07/11/18at 19:55; Start 07/10/18 at 21:00; Stop 07/12/18 at 11:19; Status DC Aspirin (Tracee Aspirin) 325 mg DAILY PO Last administered on 07/14/18at 10:15; Start 07/10/18 at 16:00 Aspirin (Ecotrin) 81 mg DAILY PO ; Start 07/11/18 at 09:00; Stop 07/11/18 at 09: 00; Status DC Carvedilol (Coreg) 12.5 mg BIDWMEALS PO Last administered on 07/10/18at 17:55; Start 07/10/18 at 17:00; Stop 07/12/18 at 11:19; Status DC Cinacalcet (Sensipar) 30 mg DAILY PO Last administered on 07/14/18at 10:15; Start 07/10/18 at 16:00 Cyclobenzaprine HCl (Flexeril) 10 mg QID PO Last administered on 07/11/18at 13: 00; Start 07/10/18 at 17:00; Stop 07/12/18 at 11:19; Status DC Diclofenac Sodium (Voltaren) 1 grisel BID TP Last administered on 07/14/18 21:49 ; Start 07/10/18 at 21:00 Vitamin B Complex/ Vitamin C (Bela-Roland) 1 tab DAILYBFRSUP PO Last administered on 07/14/18 17:00; Start 07/10/18 at 17:00 Ondansetron HCl (Zofran Odt) 4 mg PRN Q6HRS PRN PO NAUSEA/VOMITING; Start 07/10 at 15:15; Status Cancel Oxycodone/ Acetaminophen (Percocet 10/325) 1 tab PRN Q6HRS PRN PO SEVERE PAIN Last administered on 07/11/18 12:39; Start 07/10/18 at 15:15; Stop 07/11/18 at 13:50; Status DC Sevelamer Carbonate (Renvela) 2.4 gm TIDWMEALS PO Last administered on 17:00; Start 07/10/18 at 17:00 Tramadol HCl (Ultram) 50 mg PRN Q6HRS PRN PO MODERATE PAIN Last administered on 07/12/18 02:48; Start 07/10/18 at 15:15 Non-Formulary Medication (Bimatoprost (Lumigan)) 1 drop QHS EACHEYE ; Start at 21:00; Stop 07/10/18 at 21:00; Status DC Calcitriol (Rocaltrol) 0.25 mcg DAILY PO Last administered on 07/14/18 10:15; Start 07/10/18 at 16:00 Vitamin D (Vitamin D3) 2,000 unit DAILY PO Last administered on 07/14/18 10:15 ; Start 07/11/18 at 09:00 Ibuprofen (Motrin) 800 mg PRN Q8HRS PRN PO INFLAMMATION Last administered on 18:34; Start 07/10/18 at 15:45 Insulin Human Lispro (HumaLOG) 5 units BIDWMEALS SQ ; Start 07/10/18 at 17:00 Latanoprost (Xalatan) 1 drop QHS OU Last administered on 07/14/18 21:49; Start 07/10/18 at 21:00 Non-Formulary Medication (Oxycodone Hcl (Oxycodone Hcl Immed.release)) 1 tab Q12HR PO ; Start 07/10/18 at 21:00; Stop 07/10/18 at 21:00; Status DC Pantoprazole Sodium (Protonix) 40 mg DAILYAC PO Last administered on 07/14/18at 10:15; Start 07/10/18 at 16:30 Insulin Glargine (Lantus) 8 units QHS SQ Last administered on 07/14/18at 21:59; Start 07/10/18 at 21:00 Insulin Human Lispro (HumaLOG) 0-9 UNITS TIDWMEALS SQ Last administered on 07/13at 18:41; Start 07/10/18 at 17:00 Dextrose (Dextrose 50%-Water Syringe) 12.5 gm PRN Q15MIN PRN IV SEE COMMENTS; Start 07/10/18 at 15:30 Acetaminophen (Tylenol) 500 mg PRN Q6HRS PRN PO MILD PAIN / TEMP Last administered on 07/13/18at 10:28; Start 07/10/18 at 15:30 Calcium Carbonate/ Glycine (Tums) 500 mg PRN AFTMEALHC PRN PO INDIGESTION; Start 07/10/18 at 15:30 Ondansetron HCl (Zofran) 4 mg PRN Q6HRS PRN IV NAUSEA/VOMITING; Start 07/10/18 at 15:30 Ondansetron HCl (Zofran Odt) 4 mg PRN Q6HRS PRN PO NAUSEA/VOMITING; Start 07/10 at 15:30 Albuterol/ Ipratropium (Duoneb) 3 ml RTQID NEB Last administered on 07/14/18at 19:36; Start 07/10/18 at 16:00 Guaifenesin (Robitussin Dm) 10 ml PRN Q6HRS PRN PO COUGH Last administered on at 09:23; Start 07/10/18 at 15:30 Sodium Chloride 1,000 ml @ 1,000 mls/hr Q1H PRN IV hypotension; Start 07/11/18 at 07:22; Stop 07/11/18 at 13:21; Status DC Sodium Chloride 1,000 ml @ 400 mls/hr Q2H30M PRN IV PATENCY; Start 07/11/18 at 07:22; Stop 07/11/18 at 19:21; Status DC Info (PHARMACY MONITORING -- do not chart) 1 each PRN DAILY PRN MC SEE COMMENTS ; Start 07/11/18 at 07:30; Status UNV Info (PHARMACY MONITORING -- do not chart) 1 each PRN DAILY PRN MC SEE COMMENTS ; Start 07/11/18 at 07:30; Stop 07/12/18 at 07:55; Status DC Benzonatate (Tessalon Perle) 100 mg [id number] PO Last administered on 07/14/18at 21 :49; Start 07/11/18 at 14:00 Sodium Chloride 1,000 ml @ 1,000 mls/hr Q1H PRN IV hypotension; Start 07/12/18 at 07:48; Stop 07/12/18 at 13:47; Status DC Sodium Chloride 1,000 ml @ 400 mls/hr Q2H30M PRN IV PATENCY; Start 07/12/18 at 07:48; Stop 07/12/18 at 19:47; Status DC Info (PHARMACY MONITORING -- do not chart) 1 each PRN DAILY PRN MC SEE COMMENTS ; Start 07/12/18 at 08:00 Info (PHARMACY MONITORING -- do not chart) 1 each PRN DAILY PRN MC SEE COMMENTS ; Start 07/12/18 at 08:00; Status UNV Ceftriaxone Sodium (Rocephin) 1 gm Q24H IVP Last administered on 07/14/18at 12: 01; Start 07/12/18 at 10:00 Albuterol/ Ipratropium (Duoneb) 3 ml RTQID NEB ; Start 07/12/18 at 12:00; Status UNV Carvedilol (Coreg) 3.125 mg BIDWMEALS PO ; Start 07/12/18 at 17:00; Stop at 17:00; Status DC Lactobacillus Rhamnosus (Culturelle) 1 cap BID PO Last administered on at 21:49; Start 07/13/18 at 21:00 Hydromorphone HCl (Dilaudid) 2 mg PRN TID PRN PO SEVERE PAIN; Start 07/14/18 at 13:15 Fentanyl (Duragesic 12mcg/ Hr Patch) 1 patch Q3DAYS TD Last administered on at 14:46; Start 07/14/18 at 15:00 Active Scripts Active Acetaminophen 500 Mg Tablet 500 Mg PO PRN Q6HRS PRN 30 Days Dilaudid (Hydromorphone Hcl) 2 Mg Tablet 2 Mg PO PRN TID PRN 6 Days FENTANYL 12mcg/hr (Fentanyl) 1 Each Patch.td72 1 Patch TD Q3DAYS 30 Days Aspirin 325 Mg Tablet 1 Tab PO DAILY Tramadol Hcl 50 Mg Tablet 1 Tab PO PRN Q6HRS Reported Protonix (Pantoprazole Sodium) 20 Mg Tablet.dr 40 Mg PO DAILY Latanoprost 0.005% Eye Drop (Latanoprost/Pf) 7.5 Ml Drops 7.5 Ml OP QHS Voltaren (Diclofenac Sodium) 100 Gm Gel..gram. 1 Gm TP BID Levemir (Insulin Detemir) 100 Unit/1 Ml Vial 8 Unit SQ Novolog (Insulin Aspart) 100 Unit/1 Ml Cartridge 5 Unit SQ BIDAC Zofran Odt (Ondansetron) 4 Mg Tab.rapdis 4 Mg PO Q6HRS PRN Carvedilol (Carvedilol) 12.5 Mg Tablet 12.5 Mg PO BIDWMEALS Sensipar (Cinacalcet Hcl) 30 Mg Tablet 1 Tab PO DAILY Renvela (Sevelamer Carbonate) 2.4 Gm Powd.pack 2.4 Gm PO TIDWMEALS Lumigan (Bimatoprost) 2.5 Ml Drops 1 Drop EACHEYE QHS Calcitriol 0.25 Mcg Capsule 1 Cap PO DAILY Nephro-Roland Tablet (Folic Acid/Vitamin B Comp W-C) 0.8 Mg Tablet 1 Tab PO DAILYBFRSUP Vitamin D (Cholecalciferol (Vitamin D3)) 2,000 Unit Capsule 1 Cap PO DAILY Vitals/I & O Vital Sign - Last 24 Hours 07/13/18 07/14/18 07/14/18 07/14/18 23:46 03:03 07:00 07:27 Temp 97.5 98.1 97.9 97.5 98.1 97.9 Pulse 86 76 88 Resp 16 16 16 B/P (MAP) 83/37 (52) 86/50 (62) 89/43 (58) Pulse Ox 93 91 93 93 O2 Delivery Room Air Room Air Room Air Room Air 07/14/18 07/14/18 07/14/1819 08:00 11:00 11:11 14:46 Temp 98.5 98.5 Pulse 90 Resp 18 17 B/P (MAP) 103/50 (67) Pulse Ox 94 91 O2 Delivery Room Air Room Air Room Air Room Air O2 Flow Rate 2.0 07/14/18 07/14/18 07/14/18 07/14/18 15:00 15:53 18:46 19:10 Temp 98.2 97.9 98.2 97.9 Pulse 84 84 Resp 18 18 B/P (MAP) 130/52 (78) 99/68 (78) Pulse Ox 94 94 93 O2 Delivery Room Air Room Air Room Air Room Air O2 Flow Rate 2.0 07/14/18 19:38 Pulse Ox 94 O2 Delivery Room Air Intake and Output 07/13/18 07/13/18 07/14/18 15:00 23:00 07:00 Intake Total 200 ml 200 ml 200 ml Output Total 0 ml 0 ml Balance 200 ml 200 ml 200 ml MAHSA REYNOSO MD Jul 14, 2018 22:29
[2018-07-14 23:10] VITALS: BP 103/55
[2018-07-15 03:10] VITALS: BP 77/50
[2018-07-15 05:10] VITALS: BP 87/53
[2018-07-15 07:05] VITALS: BP 96/47
[2018-07-15] MEDS: IPRATRPIUM/ALBUTEROL 0.5/2.5MG 3 ML NEBU. NEB SCH ×2 (07:37→12:00)
[2018-07-15] MEDS ORDERED: IV NORMAL SALINE 1000ML BAG 1,000 ML IV PRN ×2 (07:41)
[2018-07-15] MEDS ORDERED: DIALYSIS PATIENT. MC PRN ×2 (07:45)
[2018-07-15 07:46] LABS: CALCIUM 7.5 mg/dL (8.5-10.1); CREATININE 6.2 mg/dL (0.6-1.0); GFR 7.7; POTASSIUM 4.7 mmol/L (3.5-5.1)
[2018-07-15] MEDS: INSULIN LISPRO 300 UNITS/3 ML INSULN.PEN. SQ SCH ×3 (08:00→12:00)
[2018-07-15] MEDS: SEVELAMER CARBONATE 2.4 GM PACKET. PO SCH ×2 (08:00→12:40)
--- NOTE | 2018-07-15 08:02 | PDOC ---
PROGRESS NOTES Chief Complaint Chief Complaint 1. ESRD on HD 2. CHF, with diastolic failrue, with severe tricuspid regurgitation w . corpulmonale and pulm htn 3. COPD with bronchitis, 4. SNU resident, weakness and debility 5. COugh, SOA 6. pulmonary fibrosis 7. DM2 History of Present Illness History of Present Illness 87 y.o Female, DNR, resident of [facility] x 1 yr now, HD today but did not finished bec of SOA and cough x few weeks, Denies known sick contact but lives in SNU. NO CP, no fevers. labs look ok. CXR shows congestion, Does not make urine really anymore, HD x 8 yrs now from DM and HTN. Admitted with renal to get HD, I will check for flu, Ambulates with wheelchair, . Legs swollen, more tight than usual up with PT breathing easier family here again today to assist blood pressure much better today Daughter bedside concerned her mother is confused. Patient simply concerned with her pain and states she is contemplating stopping dialysis. Long time spent discussing pain management and medications overall with her daughter, who has been difficult to work with nursing staff and very demanding, asking for us to manage her mother after discharge, I have reassured her that we can only manage her while inpatient here at [facility]. Fentanyl patch today 12mcg Palliative care to see. PT and OT if able for skilled services on D/C DNR/DNI Vitals Vitals Vital Signs Date Time Temp Pulse Resp B/P (MAP) Pulse Ox O2 Delivery O2 Flow Rate FiO2 07/15/18 07:38 94 Room Air 07/15/18 07:05 98.1 80 18 96/47 (63) 98.1 07/14/18 18:46 2.0 Physical Exam Physical Exam poorly oriented 06/02 General: Alert, Cooperative, No acute distress, mild distress Heart: Regular rate, Normal S1, Normal S2, Gallops Lungs: Wheezing (faint) Abdomen: Normal bowel sounds, Soft, No tenderness Extremities: No clubbing, No cyanosis, Other (MILD CHRONIC LE EDEMA BILATERALLY ) Skin: No rashes, No breakdown Labs LABS Laboratory Tests Test 07/14/18 12:06 07/14/18 16:49 07/14/18 20:50 07/15/18 04:30 Glucose (Fingerstick) 175 mg/dL (70-99) 171 mg/dL (70-99) 169 mg/dL (70-99) Sodium Level 133 mmol/L (136-145) Potassium Level 4.7 mmol/L (3.5-5.1) Chloride Level 95 mmol/L (98-107) Carbon Dioxide Level 26 mmol/L (21-32) Anion Gap 12 (6-14) Blood Urea Nitrogen 49 mg/dL (7-20) Creatinine 6.2 mg/dL (0.6-1.0) Estimated GFR (Cockcroft-Gault) 7.7 Glucose Level 154 mg/dL (70-99) Calcium Level 7.5 mg/dL (8.5-10.1) Test 07/15/18 07:10 Glucose (Fingerstick) 129 mg/dL (70-99) Assessment and Plan Assessmemt and Plan Problems Medical Problems: (1) Cough Status: Acute (2) Dyspnea Status: Acute (3) ESRD (end stage renal disease) Status: Acute Comment Review of Relevant I have reviewed the following items smith (where applicable) has been applied. Labs Laboratory Tests Test 07/13/18 11:52 07/13/18 16:29 07/13/18 20:58 07/14/18 07:23 Glucose (Fingerstick) 215 mg/dL (70-99) 139 mg/dL (70-99) 109 mg/dL (70-99) 97 mg/dL (70-99) Test 07/14/18 12:06 07/14/18 16:49 07/14/18 20:50 07/15/18 04:30 Glucose (Fingerstick) 175 mg/dL (70-99) 171 mg/dL (70-99) 169 mg/dL (70-99) Sodium Level 133 mmol/L (136-145) Potassium Level 4.7 mmol/L (3.5-5.1) Chloride Level 95 mmol/L (98-107) Carbon Dioxide Level 26 mmol/L (21-32) Anion Gap 12 (6-14) Blood Urea Nitrogen 49 mg/dL (7-20) Creatinine 6.2 mg/dL (0.6-1.0) Estimated GFR (Cockcroft-Gault) 7.7 Glucose Level 154 mg/dL (70-99) Calcium Level 7.5 mg/dL (8.5-10.1) Test 07/15/18 07:10 Glucose (Fingerstick) 129 mg/dL (70-99) Laboratory Tests Test 07/14/18 12:06 07/14/18 16:49 07/14/18 20:50 07/15/18 04:30 Glucose (Fingerstick) 175 mg/dL (70-99) 171 mg/dL (70-99) 169 mg/dL (70-99) Sodium Level 133 mmol/L (136-145) Potassium Level 4.7 mmol/L (3.5-5.1) Chloride Level 95 mmol/L (98-107) Carbon Dioxide Level 26 mmol/L (21-32) Anion Gap 12 (6-14) Blood Urea Nitrogen 49 mg/dL (7-20) Creatinine 6.2 mg/dL (0.6-1.0) Estimated GFR (Cockcroft-Gault) 7.7 Glucose Level 154 mg/dL (70-99) Calcium Level 7.5 mg/dL (8.5-10.1) Test 07/15/18 07:10 Glucose (Fingerstick) 129 mg/dL (70-99) Microbiology 07/10/18 Blood Culture - Preliminary, Resulted NO GROWTH AFTER 4 DAYS Medications Current Medications Albuterol/ Ipratropium (Duoneb) 3 ml 1X ONCE NEB Last administered on at 13:47; Start 07/10/18 at 13:30; Stop 07/10/18 at 13:31; Status DC Amitriptyline HCl (Elavil) 25 mg QHS PO Last administered on 07/11/18at 19:55; Start 07/10/18 at 21:00; Stop 07/12/18 at 11:19; Status DC Aspirin (Tracee Aspirin) 325 mg DAILY PO Last administered on 07/14/18at 10:15; Start 07/10/18 at 16:00 Aspirin (Ecotrin) 81 mg DAILY PO ; Start 07/11/18 at 09:00; Stop 07/11/18 at 09: 00; Status DC Carvedilol (Coreg) 12.5 mg BIDWMEALS PO Last administered on 07/10/18at 17:55; Start 07/10/18 at 17:00; Stop 07/12/18 at 11:19; Status DC Cinacalcet (Sensipar) 30 mg DAILY PO Last administered on 07/14/18 10:15; Start 07/10/18 at 16:00 Cyclobenzaprine HCl (Flexeril) 10 mg QID PO Last administered on 07/11/18 13: 00; Start 07/10/18 at 17:00; Stop 07/12/18 at 11:19; Status DC Diclofenac Sodium (Voltaren) 1 grisel BID TP Last administered on 07/14/18 21:49 ; Start 07/10/18 at 21:00 Vitamin B Complex/ Vitamin C (Bela-Roland) 1 tab DAILYBFRSUP PO Last administered on 07/14/18 17:00; Start 07/10/18 at 17:00 Ondansetron HCl (Zofran Odt) 4 mg PRN Q6HRS PRN PO NAUSEA/VOMITING; Start 07/10 at 15:15; Status Cancel Oxycodone/ Acetaminophen (Percocet 10/325) 1 tab PRN Q6HRS PRN PO SEVERE PAIN Last administered on 07/11/18 12:39; Start 07/10/18 at 15:15; Stop 07/11/18 at 13:50; Status DC Sevelamer Carbonate (Renvela) 2.4 gm TIDWMEALS PO Last administered on 17:00; Start 07/10/18 at 17:00 Tramadol HCl (Ultram) 50 mg PRN Q6HRS PRN PO MODERATE PAIN Last administered on 07/12/18 02:48; Start 07/10/18 at 15:15 Non-Formulary Medication (Bimatoprost (Lumigan)) 1 drop QHS EACHEYE ; Start at 21:00; Stop 07/10/18 at 21:00; Status DC Calcitriol (Rocaltrol) 0.25 mcg DAILY PO Last administered on 07/14/18 10:15; Start 07/10/18 at 16:00 Vitamin D (Vitamin D3) 2,000 unit DAILY PO Last administered on 07/14/18 10:15 ; Start 07/11/18 at 09:00 Ibuprofen (Motrin) 800 mg PRN Q8HRS PRN PO INFLAMMATION Last administered on at 18:34; Start 07/10/18 at 15:45 Insulin Human Lispro (HumaLOG) 5 units BIDWMEALS SQ ; Start 07/10/18 at 17:00 Latanoprost (Xalatan) 1 drop QHS OU Last administered on 07/14/18 21:49; Start 07/10/18 at 21:00 Non-Formulary Medication (Oxycodone Hcl (Oxycodone Hcl Immed.release)) 1 tab Q12HR PO ; Start 07/10/18 at 21:00; Stop 07/10/18 at 21:00; Status DC Pantoprazole Sodium (Protonix) 40 mg DAILYAC PO Last administered on 07/14/18 10:15; Start 07/10/18 at 16:30 Insulin Glargine (Lantus) 8 units QHS SQ Last administered on 07/14/18 21:59; Start 07/10/18 at 21:00 Insulin Human Lispro (HumaLOG) 0-9 UNITS TIDWMEALS SQ Last administered on 07/13 18:41; Start 07/10/18 at 17:00 Dextrose (Dextrose 50%-Water Syringe) 12.5 gm PRN Q15MIN PRN IV SEE COMMENTS; Start 07/10/18 at 15:30 Acetaminophen (Tylenol) 500 mg PRN Q6HRS PRN PO MILD PAIN / TEMP Last administered on 07/13/18 10:28; Start 07/10/18 at 15:30 Calcium Carbonate/ Glycine (Tums) 500 mg PRN AFTMEALHC PRN PO INDIGESTION; Start 07/10/18 at 15:30 Ondansetron HCl (Zofran) 4 mg PRN Q6HRS PRN IV NAUSEA/VOMITING; Start 07/10/18 at 15:30 Ondansetron HCl (Zofran Odt) 4 mg PRN Q6HRS PRN PO NAUSEA/VOMITING; Start 07/10 at 15:30 Albuterol/ Ipratropium (Duoneb) 3 ml RTQID NEB Last administered on 07/15/18at 07:37; Start 07/10/18 at 16:00 Guaifenesin (Robitussin Dm) 10 ml PRN Q6HRS PRN PO COUGH Last administered on 09:23; Start 07/10/18 at 15:30 Sodium Chloride 1,000 ml @ 1,000 mls/hr Q1H PRN IV hypotension; Start 07/11/18 at 07:22; Stop 07/11/18 at 13:21; Status DC Sodium Chloride 1,000 ml @ 400 mls/hr Q2H30M PRN IV PATENCY; Start 07/11/18 at 07:22; Stop 07/11/18 at 19:21; Status DC Info (PHARMACY MONITORING -- do not chart) 1 each PRN DAILY PRN MC SEE COMMENTS ; Start 07/11/18 at 07:30; Status UNV Info (PHARMACY MONITORING -- do not chart) 1 each PRN DAILY PRN MC SEE COMMENTS ; Start 07/11/18 at 07:30; Stop 07/12/18 at 07:55; Status DC Benzonatate (Tessalon Perle) 100 mg [id number] PO Last administered on 07/14/18at 21 :49; Start 07/11/18 at 14:00 Sodium Chloride 1,000 ml @ 1,000 mls/hr Q1H PRN IV hypotension; Start 07/12/18 at 07:48; Stop 07/12/18 at 13:47; Status DC Sodium Chloride 1,000 ml @ 400 mls/hr Q2H30M PRN IV PATENCY; Start 07/12/18 at 07:48; Stop 07/12/18 at 19:47; Status DC Info (PHARMACY MONITORING -- do not chart) 1 each PRN DAILY PRN MC SEE COMMENTS ; Start 07/12/18 at 08:00; Status Cancel Info (PHARMACY MONITORING -- do not chart) 1 each PRN DAILY PRN MC SEE COMMENTS ; Start 07/12/18 at 08:00; Status UNV Ceftriaxone Sodium (Rocephin) 1 gm Q24H IVP Last administered on 07/14/18at 12: 01; Start 07/12/18 at 10:00 Albuterol/ Ipratropium (Duoneb) 3 ml RTQID NEB ; Start 07/12/18 at 12:00; Status UNV Carvedilol (Coreg) 3.125 mg BIDWMEALS PO ; Start 07/12/18 at 17:00; Stop at 17:00; Status DC Lactobacillus Rhamnosus (Culturelle) 1 cap BID PO Last administered on at 21:49; Start 07/13/18 at 21:00 Hydromorphone HCl (Dilaudid) 2 mg PRN TID PRN PO SEVERE PAIN; Start 07/14/18 at 13:15 Fentanyl (Duragesic 12mcg/ Hr Patch) 1 patch Q3DAYS TD Last administered on at 14:46; Start 07/14/18 at 15:00 Sodium Chloride 1,000 ml @ 1,000 mls/hr Q1H PRN IV hypotension; Start 07/15/18 at 07:41; Stop 07/15/18 at 13:40 Sodium Chloride 1,000 ml @ 400 mls/hr Q2H30M PRN IV PATENCY; Start 07/15/18 at 07:41; Stop 07/15/18 at 19:40 Info (PHARMACY MONITORING -- do not chart) 1 each PRN DAILY PRN MC SEE COMMENTS ; Start 07/15/18 at 07:45; Status UNV Info (PHARMACY MONITORING -- do not chart) 1 each PRN DAILY PRN MC SEE COMMENTS ; Start 07/15/18 at 07:45 Active Scripts Active Acetaminophen 500 Mg Tablet 500 Mg PO PRN Q6HRS PRN 30 Days Dilaudid (Hydromorphone Hcl) 2 Mg Tablet 2 Mg PO PRN TID PRN 6 Days FENTANYL 12mcg/hr (Fentanyl) 1 Each Patch.td72 1 Patch TD Q3DAYS 30 Days Aspirin 325 Mg Tablet 1 Tab PO DAILY Tramadol Hcl 50 Mg Tablet 1 Tab PO PRN Q6HRS Reported Protonix (Pantoprazole Sodium) 20 Mg Tablet.dr 40 Mg PO DAILY Latanoprost 0.005% Eye Drop (Latanoprost/Pf) 7.5 Ml Drops 7.5 Ml OP QHS Voltaren (Diclofenac Sodium) 100 Gm Gel..gram. 1 Gm TP BID Levemir (Insulin Detemir) 100 Unit/1 Ml Vial 8 Unit SQ Novolog (Insulin Aspart) 100 Unit/1 Ml Cartridge 5 Unit SQ BIDAC Zofran Odt (Ondansetron) 4 Mg Tab.rapdis 4 Mg PO Q6HRS PRN Carvedilol (Carvedilol) 12.5 Mg Tablet 12.5 Mg PO BIDWMEALS Sensipar (Cinacalcet Hcl) 30 Mg Tablet 1 Tab PO DAILY Renvela (Sevelamer Carbonate) 2.4 Gm Powd.pack 2.4 Gm PO TIDWMEALS Lumigan (Bimatoprost) 2.5 Ml Drops 1 Drop EACHEYE QHS Calcitriol 0.25 Mcg Capsule 1 Cap PO DAILY Nephro-Roland Tablet (Folic Acid/Vitamin B Comp W-C) 0.8 Mg Tablet 1 Tab PO DAILYBFRSUP Vitamin D (Cholecalciferol (Vitamin D3)) 2,000 Unit Capsule 1 Cap PO DAILY Vitals/I & O Vital Sign - Last 24 Hours 07/14/18 07/14/18 07/14/18 07/14/18 11:00 11:11 14:46 15:00 Temp 98.5 98.2 98.5 98.2 Pulse 90 84 Resp 18 17 18 B/P (MAP) 103/50 (67) 130/52 (78) Pulse Ox 94 91 94 O2 Delivery Room Air Room Air Room Air Room Air 07/14/18 07/14/18 07/14/18 07/14/18 15:53 18:46 19:10 19:38 Temp 97.9 97.9 Pulse 84 Resp 18 B/P (MAP) 99/68 (78) Pulse Ox 94 93 94 O2 Delivery Room Air Room Air Room Air Room Air O2 Flow Rate 2.0 07/14/18 07/14/18 07/15/18 07/15/18 20:00 23:10 03:10 05:10 Temp 98.0 98.1 98.0 98.1 Pulse 91 81 81 Resp 18 18 18 B/P (MAP) 103/55 (71) 77/50 (59) 87/53 (64) Pulse Ox 92 90 O2 Delivery Room Air Room Air Room Air 07/15/18 07/15/18 07:05 07:38 Temp 98.1 98.1 Pulse 80 Resp 18 B/P (MAP) 96/47 (63) Pulse Ox 91 94 O2 Delivery Room Air Room Air Intake and Output 07/14/18 07/14/18 07/15/18 15:00 23:00 07:00 Intake Total 230 ml 360 ml 120 ml Output Total 0 ml Balance 230 ml 360 ml 120 ml MAHSA REYNOSO MD Jul 15, 2018 08:02
[2018-07-15] MEDS: DICLOFENAC SODIUM 1% TOPICAL GEL 100GM TUBE. TP SCH (09:00)
[2018-07-15] MEDS: BENZONATATE 100 MG CAPSULE. PO SCH ×2 (09:00→12:42)
--- NOTE | 2018-07-15 09:36 | PDOC ---
SUBJECTIVE ROS Seen on HD, tolerating well, No complaints OBJECTIVE Vital Signs Vital Signs Date Time Temp Pulse Resp B/P (MAP) Pulse Ox O2 Delivery O2 Flow Rate FiO2 07/15/18 07:38 94 Room Air 07/15/18 07:05 98.1 80 18 96/47 (63) 98.1 07/14/18 18:46 2.0 I & 0 Intake and Output 07/15/18 06:59 Intake Total 710 ml Output Total 0 ml Balance 710 ml Intake Oral 710 ml Output Urine Total 0 ml PHYSICAL EXAM Physical Exam General: No acute distress HEENT- OM moist Heart: Regular rate, Normal S1, Normal S2, Gallops Lungs: CTA bilat, Non labored Abdomen:Soft, No tenderness Extremities: Mild Chr LE edema Skin: No rashe No Jeffers DIAGNOSIS/ASSESSMENT Assessment & Plan ESRD- On HD TTS- Dr. Jiang Seen on HD, tolerating well, continue as ordered Discussed with carriage feeder Anemia- Hgb stable No indication for BASILIA Hyponatremia- Mild CHF- with diastolic failrue Severe tricuspid regurgitation/ corpulmonale and pulm htn COPD with bronchitis, Pulmonary fibrosis DM2 COMMENT/RELEVANT DATA Meds Current Medications Medications (Trade) Dose Ordered Sig/Homa Start Time Stop Time Status Last Admin Dose Admin Acetaminophen (Tylenol) 500 mg PRN Q6HRS PRN 07/10/18 15:30 07/13/18 10:28 500 MG Albuterol/ Ipratropium (Duoneb) 3 ml RTQID 07/12/18 12:00 UNV Amitriptyline HCl (Elavil) 25 mg QHS 07/10/18 21:00 07/12/18 11:19 DC 07/11/18 19:55 25 MG Aspirin (Tracee Aspirin) 325 mg DAILY 07/10/18 16:00 07/14/18 10:15 325 MG Aspirin (Ecotrin) 81 mg DAILY 07/11/18 09:00 07/11/18 09:00 DC Benzonatate (Tessalon Perle) 100 mg [id number] 07/11/18 14:00 07/14/18 21:49 100 MG Calcitriol (Rocaltrol) 0.25 mcg DAILY 07/10/18 16:00 07/14/18 10:15 0.25 MCG Calcium Carbonate/ Glycine (Tums) 500 mg PRN AFTMEALHC PRN 07/10/18 15:30 Carvedilol (Coreg) 3.125 mg BIDWMEALS 07/12/18 17:00 07/12/18 17:00 DC Ceftriaxone Sodium (Rocephin) 1 gm Q24H 07/12/18 10:00 07/14/18 12:01 1 GM Cinacalcet (Sensipar) 30 mg DAILY 07/10/18 16:00 07/14/18 10:15 30 MG Cyclobenzaprine HCl (Flexeril) 10 mg QID 07/10/18 17:00 07/12/18 11:19 DC 07/11/18 13:00 10 MG Dextrose (Dextrose 50%-Water Syringe) 12.5 gm PRN Q15MIN PRN 07/10/18 15:30 Diclofenac Sodium (Voltaren) 1 grisel BID 07/10/18 21:00 07/14/18 21:49 1 GRISEL Fentanyl (Duragesic 12mcg/ Hr Patch) 1 patch Q3DAYS 07/14/18 15:00 07/14/18 14:46 1 PATCH Guaifenesin (Robitussin Dm) 10 ml PRN Q6HRS PRN 07/10/18 15:30 07/14/18 09:23 10 ML Hydromorphone HCl (Dilaudid) 2 mg PRN TID PRN 07/14/18 13:15 Ibuprofen (Motrin) 800 mg PRN Q8HRS PRN 07/10/18 15:45 07/13/18 18:34 800 MG Info (PHARMACY MONITORING -- do not chart) 1 each PRN DAILY PRN 07/15/18 07:45 Insulin Glargine (Lantus) 8 units QHS 07/10/18 21:00 07/14/18 21:59 8 UNITS Insulin Human Lispro (HumaLOG) 0-9 UNITS TIDWMEALS 07/10/18 17:00 07/13/18 18:41 3 UNITS Lactobacillus Rhamnosus (Culturelle) 1 cap BID 07/13/18 21:00 07/14/18 21:49 1 CAP Latanoprost (Xalatan) 1 drop QHS 07/10/18 21:00 07/14/18 21:49 1 DROP Non-Formulary Medication (Bimatoprost (Lumigan)) 1 drop QHS 07/10/18 21:00 07/10/18 21:00 DC Non-Formulary Medication (Oxycodone Hcl (Oxycodone Hcl Immed.release)) 1 tab Q12HR 07/10/18 21:00 07/10/18 21:00 DC Ondansetron HCl (Zofran Odt) 4 mg PRN Q6HRS PRN 07/10/18 15:30 Ondansetron HCl (Zofran) 4 mg PRN Q6HRS PRN 07/10/18 15:30 Oxycodone/ Acetaminophen (Percocet 10/325) 1 tab PRN Q6HRS PRN 07/10/18 15:15 07/11/18 13:50 DC 07/11/18 12:39 1 TAB Pantoprazole Sodium (Protonix) 40 mg DAILYAC 07/10/18 16:30 07/14/18 10:15 40 MG Sevelamer Carbonate (Renvela) 2.4 gm TIDWMEALS 07/10/18 17:00 07/14/18 17:00 2.4 GM Sodium Chloride 1,000 ml @ 400 mls/hr Q2H30M PRN 07/15/18 07:41 07/15/18 19:40 Tramadol HCl (Ultram) 50 mg PRN Q6HRS PRN 07/10/18 15:15 07/12/18 02:48 50 MG Vitamin B Complex/ Vitamin C (Bela-Roland) 1 tab DAILYBFRSUP 07/10/18 17:00 07/14/18 17:00 1 TAB Vitamin D (Vitamin D3) 2,000 unit DAILY 07/11/18 09:00 07/14/18 10:15 2,000 UNIT Lab Laboratory Tests Test 07/14/18 12:06 07/14/18 16:49 07/14/18 20:50 07/15/18 04:30 Glucose (Fingerstick) 175 mg/dL (70-99) 171 mg/dL (70-99) 169 mg/dL (70-99) Sodium Level 133 mmol/L (136-145) Potassium Level 4.7 mmol/L (3.5-5.1) Chloride Level 95 mmol/L (98-107) Carbon Dioxide Level 26 mmol/L (21-32) Anion Gap 12 (6-14) Blood Urea Nitrogen 49 mg/dL (7-20) Creatinine 6.2 mg/dL (0.6-1.0) Estimated GFR (Cockcroft-Gault) 7.7 Glucose Level 154 mg/dL (70-99) Calcium Level 7.5 mg/dL (8.5-10.1) Test 07/15/18 07:10 Glucose (Fingerstick) 129 mg/dL (70-99) Results All relevant outside records, renal labs, imaging studies, telemetry/EKG's were reviewed. ASHU GARDINER MD Jul 15, 2018 09:36
[2018-07-15] MEDS: cefTRIAXone IV Push 1 GM VIAL. IVP SCH (10:00)
[2018-07-15] MEDS: CALCITRIOL 0.25 MCG CAPSULE. PO SCH (12:42)
[2018-07-15] MEDS: CINACALCET HCL 30 MG TABLET PO SCH (12:43)
[2018-07-15] MEDS: CHOLECALCIFEROL (VITAMIN D3) 1,000 UNIT TABLET PO SCH (12:43)
[2018-07-15] MEDS: PANTOPRAZOLE 40 MG TABLET.DR. PO SCH (12:43)
[2018-07-15] MEDS: ASPIRIN 325 MG TABLET PO SCH (12:43)
[2018-07-15] MEDS: LACTOBACILLUS RHAMNOSUS GG 1 CAPSULE. PO SCH (12:43)
[2018-07-15] MEDS ORDERED: CARV12.511 PO (13:29)
[2018-07-15] MEDS ORDERED: INSU100V13 SQ (13:29)
[2018-07-15] MEDS ORDERED: INSU100C4 SQ (13:29)
--- NOTE | 2018-07-15 13:31 | NUR ---
JAKE following pt. Insurance has approved SNU. Orders faxed to [facility]. Pt will transport via [facility] at 1400. Pt's choice and rights forms signed by pt's daughter and copies placed on chart. Pt's daughter was upset a applications sales representative from [facility] did not visit pt yesterday. JAKE notified concerns to Tati at [facility] and requested to have someone from [facility] call daughter. RN notified. Packet on chart.
[2018-07-15 14:15] VITALS: BP 106/63
--- NOTE | 2018-07-15 14:47 | NUR ---
Discharge Note: JOHNNY RENEE [address] [place] [address] Discharge instructions and discharge home medications reviewed with Other facility and a copy given. All questions have been answered and understanding verbalized. The following instructions and handouts were given: Diet, activity, medication list and follow up instructions called to [facility]. Report called to Glenna AMOR. Daughter also updated on these instructions. Discontinued lines and drains: Peripheral IV discontinued on 07/14/18. Patient discharged to Assisted Facility with Ambulance Personnel via [facility]
--- NOTE | 2018-07-15 15:49 | PDOC3 ---
Discharge Summary Visit Information Date of Admission: Jul 10, 2018 Date of Discharge: Jul 15, 2018 Admitting Diagnosis: Bronchitis, confusion, ESRD on HD Final Diagnosis Problems Medical Problems: (1) Cough Status: Acute (2) Dyspnea Status: Acute (3) ESRD (end stage renal disease) Status: Acute Brief Hospital Course Allergies Allergies Coded Allergies Type Severity Reaction Last Updated Verified morphine Adverse Reaction Intermediate HALLUCINATIONS 08/13/16 Yes Vital Signs Vital Signs Date Time Temp Pulse Resp B/P (MAP) Pulse Ox O2 Delivery O2 Flow Rate FiO2 07/15/18 14:15 88 17 106/63 (77) 92 Room Air 07/15/18 07:05 98.1 98.1 07/14/18 18:46 2.0 Lab Results Laboratory Tests Test 07/13/18 16:29 07/13/18 20:58 07/14/18 07:23 07/14/18 12:06 Glucose (Fingerstick) 139 mg/dL (70-99) 109 mg/dL (70-99) 97 mg/dL (70-99) 175 mg/dL (70-99) Test 07/14/18 16:49 07/14/18 20:50 07/15/18 04:30 07/15/18 07:10 Glucose (Fingerstick) 171 mg/dL (70-99) 169 mg/dL (70-99) 129 mg/dL (70-99) Sodium Level 133 mmol/L (136-145) Potassium Level 4.7 mmol/L (3.5-5.1) Chloride Level 95 mmol/L (98-107) Carbon Dioxide Level 26 mmol/L (21-32) Anion Gap 12 (6-14) Blood Urea Nitrogen 49 mg/dL (7-20) Creatinine 6.2 mg/dL (0.6-1.0) Estimated GFR (Cockcroft-Gault) 7.7 Glucose Level 154 mg/dL (70-99) Calcium Level 7.5 mg/dL (8.5-10.1) Test 07/15/18 12:30 Glucose (Fingerstick) 82 mg/dL (70-99) Laboratory Tests Test 07/14/18 16:49 07/14/18 20:50 07/15/18 04:30 07/15/18 07:10 Glucose (Fingerstick) 171 mg/dL (70-99) 169 mg/dL (70-99) 129 mg/dL (70-99) Sodium Level 133 mmol/L (136-145) Potassium Level 4.7 mmol/L (3.5-5.1) Chloride Level 95 mmol/L (98-107) Carbon Dioxide Level 26 mmol/L (21-32) Anion Gap 12 (6-14) Blood Urea Nitrogen 49 mg/dL (7-20) Creatinine 6.2 mg/dL (0.6-1.0) Estimated GFR (Cockcroft-Gault) 7.7 Glucose Level 154 mg/dL (70-99) Calcium Level 7.5 mg/dL (8.5-10.1) Test 07/15/18 12:30 Glucose (Fingerstick) 82 mg/dL (70-99) Brief Hospital Course The patient is an 87-year-old who has history of end-stage renal disease, on hemodialysis. She has a history of diastolic CHF. She was brought into the hospital after she had some subjective shortness of breath. She also had a cough for the last few weeks. No fever, no chills reported. No headaches, no nausea or vomiting, no diarrhea reported. She received narcotic pain medication , as a result she was sleepy and I could not obtain much history from the patient and her daughter answered most of the questions. I have reviewed the patient's chest x-ray and it reveals mildly prominent interstitial markings. The radiologist felt that it was fibrosis. There were some similar findings in October. Seen by pulmonology and ID, treated for bronchitis. Was seen by nephrology and palliative care as well. She improved with 5 days of treatment inpatient. Greater than 30 minutes spent on discharge including counseling her daughter. 1. ESRD on HD 2. CHF, with diastolic failrue, with severe tricuspid regurgitation w . corpulmonale and pulm htn 3. COPD with bronchitis, 4. SNU resident, weakness and debility 5. COugh, SOA 6. pulmonary fibrosis 7. DM2 Denies known sick contact but lives in SNU. NO CP, no fevers. labs look ok. CXR shows congestion, Does not make urine really anymore, HD x 8 yrs now from DM and HTN. Admitted with renal to get hD, I will check for flu, Ambulates with wheelchair, . LEgs swollen, more tight than usual up with PT breathing easier family here again today to assist blood pressure much better today Daughter bedside concerned her mother is confused. Patient simply concerned with her pain and states she is contemplating stopping dialysis. Long time spent discussing pain management. Fentanyl patch today 12mcg Palliative care to see. PT and OT for skilled services on D/C DNR/DNI Discharge Information Condition at Discharge: Improved Follow Up: Weeks (2) Disposition/Orders: D/C to Another Facility (HCR) Scheduled Aspirin (Aspirin) 325 Mg Tablet, 1 TAB PO DAILY, #30 Ref 0 Prescribed by: SIERRA HOBBS MD on 04/16/18 1749 Last Action: Continued on 07/10/181515 by ERINN ROCKWELL Bimatoprost (Lumigan) 2.5 Ml Drops, 1 DROP EACHEYE QHS, #7.5 Ref 3 (Reported) Entered as Reported by: MUNDO TODD on 02/04/171833 Last Action: Converted on 07/10/181515 by ERINN ROCKWELL Calcitriol (Calcitriol) 0.25 Mcg Capsule, 1 CAP PO DAILY for calcium replacement , #30 Ref 5 (Reported) Entered as Reported by: ESTEE MYERS on 01/18/171515 Last Action: Converted on 07/10/181515 by ERINN ROCKWELL Carvedilol (Carvedilol ) 12.5 Mg Tablet, 3.125 MG PO BIDWMEALS for CHF for 30 Days, #15 Prescribed by: MAHSA REYNOSO MD on 07/15/18 1329 Cholecalciferol (Vitamin D3) (Vitamin D) 2,000 Unit Capsule, 1 CAP PO DAILY, # 30 Ref 3 (Reported) Entered as Reported by: HECTOR CLEVELAND on 11/26/151950 Last Action: Converted on 07/10/181515 by ERINN ROCKWELL Cinacalcet Hcl (Sensipar) 30 Mg Tablet, 1 TAB PO DAILY, #30 Ref 11 (Reported) Entered as Reported by: MUNDO TODD on 02/04/171833 Last Action: Continued on 07/10/181515 by ERINN ROCKWELL Diclofenac Sodium (Voltaren) 100 Gm Gel..gram., 1 GM TP BID, #100 Ref 2 ( Reported) Entered as Reported by: COLLEEN PAREDES on 11/06/17754 Last Action: Continued on 07/10/181515 by ERINN ROCKWELL Fentanyl (FENTANYL 12mcg/hr) 1 Each Patch.td72, 1 PATCH TD Q3DAYS for chronic pain for 30 Days, #10 Prescribed by: MAHSA REYNOSO MD on 07/14/18 1439 Folic Acid/Vitamin B Comp W-C (Nephro-Roland Tablet) 0.8 Mg Tablet, 1 TAB PO DAILYBFRSUP, #90 Ref 3 (Reported) Entered as Reported by: HECTOR CLEVELAND on 11/26/151950 Last Action: Continued on 07/10/181515 by ERINN ROCKWELL Insulin Aspart (Novolog) 100 Unit/1 Ml Cartridge, 0-5 UNIT SQ TIDAC for DM for 30 Days, #30 Sliding scale: 1u for every 50mg/dL > 150mg/dL Prescribed by: MAHSA REYNOSO MD on 07/15/18 1329 Insulin Detemir (Levemir) 100 Unit/1 Ml Vial, 5 UNIT SQ QHS for dm for 30 Days, #30 Hold for < 140mg/dL Prescribed by: MAHSA REYNOSO MD on 07/15/18 1329 Latanoprost/Pf (Latanoprost 0.005% Eye Drop) 7.5 Ml Drops, 7.5 ML OP QHS, ( Reported) Entered as Reported by: COLLEEN PAREDES on 11/06/17754 Last Action: Converted on 07/10/181515 by ERINN ROCKWELL Pantoprazole Sodium (Protonix) 20 Mg Tablet.dr, 40 MG PO DAILY, (Reported) Entered as Reported by: COLLEEN PAREDES on 11/06/17754 Last Action: Converted on 07/10/181515 by ERINN ROCKWELL Sevelamer Carbonate (Renvela) 2.4 Gm Powd.pack, 2.4 GM PO TIDWMEALS, (Reported) Entered as Reported by: MUNDO TODD on 02/04/17 5426 Last Action: Continued on 07/10/181515 by ERINN ROCKWELL Scheduled PRN Acetaminophen (Acetaminophen) 500 Mg Tablet, 500 MG PO PRN Q6HRS PRN for MILD PAIN / TEMP for 30 Days, #120 Prescribed by: MAHSA REYNOSO MD on 07/14/18 1439 Hydromorphone Hcl (Dilaudid) 2 Mg Tablet, 2 MG PO PRN TID PRN for SEVERE PAIN for 6 Days, #18 Prescribed by: MAHSA REYNOSO MD on 07/14/18 1439 Ondansetron (Zofran Odt) 4 Mg Tab.rapdis, 4 MG PO Q6HRS PRN for NAUSEA/VOMITING, (Reported) Entered as Reported by: SONG PATTON on 10/30/17 0831 Last Action: Continued on 07/10/181515 by ERINN ROCKWELL Discontinued Medications Amitriptyline Hcl (Amitriptyline Hcl) 25 Mg Tablet, 1 TAB PO QHS for depression , #30 Ref 5 (Reported) Entered as Reported by: ESETE MYERS on 01/18/171515 Last Action: Continued on 07/10/181515 by ERINN ROCKWELL Aspirin (Aspir-Low) 81 Mg Tablet.dr, 1 TAB PO DAILY for blood thinner, #30 Ref 3 (Reported) Entered as Reported by: HECTOR CLEVELAND on 11/26/151950 Last Action: Continued on 07/10/181515 by ERINN ROCKWELL Cyclobenzaprine Hcl (Cyclobenzaprine Hcl) 10 Mg Tablet, 1 TAB PO QID for muscle relaxer, #90 (Reported) Entered as Reported by: HECTOR CLEVELAND on 11/26/151950 Last Action: Continued on 07/10/181515 by ERINN ROCKWELL Hydrocortisone/Aloe Vera (Cortizone-10 1% Creme) 28 Gm Cream..g., Unknown Dose TP PRN DAILY, (Reported) Entered as Reported by: ANTWON HODGE on 03/26/17 1643 Last Action: HELD on 07/10/181515 by ERINN ROCKWELL Ibuprofen (Ibuprofen) 800 Mg Tablet, 800 MG PO PRN Q8HRS PRN for INFLAMMATION, ( Reported) Entered as Reported by: COLLEEN PAREDES on 11/06/17 0755 Last Action: Converted on 07/10/181515 by ERINN ROCKWELL Oxycodone Hcl (Oxycodone Hcl Immed.release) 10 Mg Tablet, 1 TAB PO Q12HR, #90 ( Reported) Entered as Reported by: COLLEEN PAREDES on 11/06/17754 Last Action: Converted on 07/10/181515 by ERINN ROCKWELL Oxycodone/Apap 10-325 (Percocet 10-325 Mg Tablet ) 1 Each Tablet, 1 TAB PO PRN Q6HRS PRN for PAIN, Ref 0 (Reported) Entered as Reported by: COLLEEN PAREDES on 11/06/17754 Last Action: Continued on 07/10/181515 by MAHSA MILLER MD Jul 15, 2018 15:49
== END 2018-07-15 14:30 | DRG 91 ==
LOC: ER 12:18 → 6 SOUTH 15:00
PROVIDERS: ADMIT Internal Medicine; ATTEND Internal Medicine
PROC: 5A1D70Z Performance of Urinary Filtration, Intermittent, Less than 6 Hours Per Day (ICD-10-PCS; principal; 2018-07-11)
PROC: 5A1D70Z Performance of Urinary Filtration, Intermittent, Less than 6 Hours Per Day (ICD-10-PCS; 2018-07-12)
PROC: 5A1D70Z Performance of Urinary Filtration, Intermittent, Less than 6 Hours Per Day (ICD-10-PCS; 2018-07-15)
DX: G92 Toxic encephalopathy (principal); I50.43 Acute on chronic combined systolic (congestive) and diastolic (congestive) heart failure; N18.6 End stage renal disease; I13.2 Hypertensive heart and chronic kidney disease with heart failure and with stage 5 chronic kidney disease, or end stage renal disease; J44.0 Chronic obstructive pulmonary disease with (acute) lower respiratory infection; D63.8 Anemia in other chronic diseases classified elsewhere; E87.5 Hyperkalemia; J20.9 Acute bronchitis, unspecified; E78.00 Pure hypercholesterolemia, unspecified; Z66 Do not resuscitate; I25.10 Atherosclerotic heart disease of native coronary artery without angina pectoris; E21.3 Hyperparathyroidism, unspecified; E11.22 Type 2 diabetes mellitus with diabetic chronic kidney disease; I25.2 Old myocardial infarction; T40.605A Adverse effect of unspecified narcotics, initial encounter; I95.9 Hypotension, unspecified; Z51.5 Encounter for palliative care; I07.1 Rheumatic tricuspid insufficiency; I27.81 Cor pulmonale (chronic); I27.29 Other secondary pulmonary hypertension; J84.10 Pulmonary fibrosis, unspecified; Z79.4 Long term (current) use of insulin; Z82.49 Family history of ischemic heart disease and other diseases of the circulatory system; Y92.89 Other specified places as the place of occurrence of the external cause; Z99.2 Dependence on renal dialysis; Z95.1 Presence of aortocoronary bypass graft; Z88.5 Allergy status to narcotic agent; Z99.3 Dependence on wheelchair
CPT/HCPCS: 36415; 71045; 71250; 80048; 80053; 82962; 83605; 83880; 84484; 85007; 85025; 85610; 87040; 87641; 87804; 93005; 93306; 94640; 94760; J0696; J1815; J7620; 97110; 97530; 99285-25

== ENCOUNTER 2018-07-19 12:34 | Inpatient (IN) | payer OTHER ==
[~2018-07-19] VITALS: Ht 165.1 cm; Wt 85.9 kg
[~2018-07-19 12:34] MED LIST changes: +ACET500T68 PO; +FENT1PAT13 TD; +HYDR2TAB31 PO
[2018-07-19] MEDS ORDERED: IPRATRPIUM/ALBUTEROL 0.5/2.5MG 3 ML NEBU. NEB ONE (12:45)
--- NOTE | 2018-07-19 12:47 | PHYS DOC ---
Past Medical History Past Medical History: CHF, Diabetes-Type I, High Cholesterol, Renal Failure Past Surgical History: Coronary Bypass Surgery Additional Past Surgical Histo: CABG X5 2004, AV FISTULA RT ARM Alcohol Use: None Drug Use: None Adult General HPI HPI Patient is a 87 year old female who presents with difficulty breathing for the past week, and low blood pressure while at dialysis today. Patient was not dialyzed because the facility was unable to access her fistula. This is been present for at least a week. Patient was recently treated for pneumonia. Patient denies any fevers. She resides at an assisted care facility. Nothing seems to make the symptoms better or worse.[] Review of Systems Review of Systems Constitutional: Denies fever or chills [] Eyes: Denies change in visual acuity, redness, or eye pain [] HENT: Denies nasal congestion or sore throat [] Respiratory: See history of present illness[] Cardiovascular: No chest pain or palpitations[] GI: Denies abdominal pain, nausea, vomiting, bloody stools or diarrhea [] : Denies dysuria or hematuria [] Musculoskeletal: Denies back pain or joint pain [] Integument: Denies rash or skin lesions [] Neurologic: Denies headache, focal weakness or sensory changes [] Endocrine: Denies polyuria or polydipsia [] All other systems were reviewed and found to be within normal limits, except as documented in this note. Current Medications Current Medications Current Medications Medications (Trade) Dose Ordered Sig/Homa Start Time Stop Time Status Last Admin Dose Admin Albuterol/ Ipratropium (Duoneb) 3 ml 1X ONCE 07/19/18 12:45 07/19/18 12:46 DC 07/19/18 12:57 3 ML Allergies Allergies Allergies Coded Allergies Type Severity Reaction Last Updated Verified morphine Adverse Reaction Intermediate HALLUCINATIONS 08/13/16 Yes Physical Exam Physical Exam Constitutional: Well developed, well nourished, no acute distress, non-toxic appearance. [] HENT: Normocephalic, atraumatic, bilateral external ears normal, oropharynx moist, no oral exudates, nose normal. [] Eyes: PERRLA, EOMI, conjunctiva normal, no discharge. [] Neck: Normal range of motion, no tenderness, supple, no stridor. [] Cardiovascular:Heart rate regular rhythm, no murmur [] Lungs & Thorax: Bilateral breath sounds with wheezes and rails throughout.[] Abdomen: Bowel sounds normal, soft, no tenderness, no masses, no pulsatile masses. [] Skin: Warm, dry, no erythema, no rash. [] Back: No tenderness, no CVA tenderness. [] Extremities: No tenderness, no cyanosis, no clubbing, ROM intact, 1-2+ pretibial edema. There is a thrill in the right arm fistula. [] Neurologic: Alert and oriented X 3, normal motor function, normal sensory function, no focal deficits noted. [] Psychologic: Affect normal, judgement normal, mood normal. [] Current Patient Data Vital Signs Vital Signs Date Time Temp Pulse Resp B/P (MAP) Pulse Ox O2 Delivery O2 Flow Rate FiO2 07/19/18 12:58 Nasal Cannula 2.0 07/19/18 12:34 97.6 72 26 91/54 (66) 87 97.6 Lab Values Laboratory Tests Test 07/19/18 13:11 07/19/18 13:18 Influenza Type A Antigen Negative (NEGATIVE) Influenza Type B Antigen Negative (NEGATIVE) White Blood Count 11.3 x10^3/uL (4.0-11.0) H Red Blood Count 3.38 x10^6/uL (3.50-5.40) L Hemoglobin 11.5 g/dL (12.0-15.5) L Hematocrit 35.5 % (36.0-47.0) L Mean Corpuscular Volume 105 fL (79-100) H Mean Corpuscular Hemoglobin 34 pg (25-35) Mean Corpuscular Hemoglobin Concent 32 g/dL (31-37) Red Cell Distribution Width 15.9 % (11.5-14.5) H Platelet Count 146 x10^3/uL (140-400) Neutrophils (%) (Auto) 83 % (31-73) H Lymphocytes (%) (Auto) 8 % (24-48) L Monocytes (%) (Auto) 7 % (0-9) Eosinophils (%) (Auto) 2 % (0-3) Basophils (%) (Auto) 1 % (0-3) Neutrophils # (Auto) 9.4 x10^3uL (1.8-7.7) H Lymphocytes # (Auto) 0.9 x10^3/uL (1.0-4.8) L Monocytes # (Auto) 0.8 x10^3/uL (0.0-1.1) Eosinophils # (Auto) 0.2 x10^3/uL (0.0-0.7) Basophils # (Auto) 0.1 x10^3/uL (0.0-0.2) Prothrombin Time 16.5 SEC (11.7-14.0) H Prothrombin Time INR 1.4 (0.8-1.1) H Sodium Level 134 mmol/L (136-145) L Potassium Level 3.7 mmol/L (3.5-5.1) Chloride Level 96 mmol/L (98-107) L Carbon Dioxide Level 29 mmol/L (21-32) Anion Gap 9 (6-14) Blood Urea Nitrogen 32 mg/dL (7-20) H Creatinine 4.7 mg/dL (0.6-1.0) H Estimated GFR (Cockcroft-Gault) 10.7 BUN/Creatinine Ratio 7 (6-20) Glucose Level 186 mg/dL (70-99) H Calcium Level 8.2 mg/dL (8.5-10.1) L Total Bilirubin 1.0 mg/dL (0.2-1.0) Aspartate Amino Transferase (AST) 36 U/L (15-37) Alanine Aminotransferase (ALT) 19 U/L (14-59) Alkaline Phosphatase 202 U/L (46-116) H Troponin I Quantitative 0.027 ng/mL (0.000-0.055) TC-Bzf-B-Type Natriuretic Peptide > 52088 pg/mL (0-449) H Total Protein 6.2 g/dL (6.4-8.2) L Albumin 2.3 g/dL (3.4-5.0) L Albumin/Globulin Ratio 0.6 (1.0-1.7) L Laboratory Tests 07/19/18 13:18 Laboratory Tests 07/19/18 13:18 EKG EKG EKG shows atrial fibrillation, 73 bpm, right axis, QTC of 489 ms, no ST elevation, when compared with EKG of 07/10/2018 no acute changes. Interpreted by me at 1253[] Radiology/Procedures Radiology/Procedures PORTABLE CHEST 1V History: SHORT OF BREATH, COUGH Comparison: July 10, 2018 Findings: AP portable view of the chest is submitted. Cardiac silhouette is enlarged although stable. There again has been sternotomy. Mildly opacity of the mid left hemithorax is stable to less prominent. There is no new infiltrate. There is no significant pleural fluid or pneumothorax. Impression: 1. Mild linear atelectasis or fibrotic change of the mid left hemithorax is stable to less prominent. There is again enlargement of the pericardial cardiac silhouette.[] Course & Med Decision Making Course & Med Decision Making Pertinent Labs and Imaging studies reviewed. (See chart for details) ED course: Patient arrived, was placed in bed, and tolerated exam well. Patient' s blood pressure improved to the 130s systolic without any intervention. Her BNP and chest x-ray are noted. The hospitalist was consulted for admission along with nephrology for dialysis given that the patient seems to be in a fluid overloaded state and by previous records review does not respond to Lasix by making urine. Findings were discussed with the patient who voiced understanding. All questions were answered. She was admitted in improved condition. Medical decision making: Patient with hypotensive episode and was still mildly hypotensive with the 90s systolic blood pressure when she arrived, that improved over time. This does not appear to be evidence of an acute infection, no evidence of an acute coronary syndrome at this time. Believe this to be more of a volume overloaded state.[] Dragon Disclaimer Dragon Disclaimer This electronic medical record was generated, in whole or in part, using a voice recognition dictation system. Departure Departure Impression: Primary Impression: Congestive heart failure Additional Impression: ESRD (end stage renal disease) on dialysis Disposition: ADMITTED INPATIENT Admitting Physician: Chela Escobar Condition: IMPROVED Referrals: KASSIE BAIG MD (PCP) Problem Qualifiers Primary Impression: Congestive heart failure Heart failure type: unspecified Heart failure chronicity: unspecified Qualified Codes: I50.9 - Heart failure, unspecified JULI CHACON DO Jul 19, 2018 12:47
--- NOTE | 2018-07-19 13:08 | RAD ---
PORTABLE CHEST 1V History: SHORT OF BREATH, COUGH Comparison: July 10, 2018 Findings: AP portable view of the chest is submitted. Cardiac silhouette is enlarged although stable. There again has been sternotomy. Mildly opacity of the mid left hemithorax is stable to less prominent. There is no new infiltrate. There is no significant pleural fluid or pneumothorax. Impression: 1. Mild linear atelectasis or fibrotic change of the mid left hemithorax is stable to less prominent. There is again enlargement of the pericardial cardiac silhouette. Electronically signed by: Sly Rubi MD (07/19/2018 1:05 PM) [facility]
[2018-07-19 13:28] LABS: BASO # 0.1 x10^3/uL (0.0-0.2); BASO % 1 % (0-3); EOS # 0.2 x10^3/uL (0.0-0.7); EOS % 2 % (0-3); HEMATOCRIT 35.5 % (36.0-47.0); HEMOGLOBIN 11.5 g/dL (12.0-15.5); LYMPH # 0.9 x10^3/uL (1.0-4.8); LYMPH % 8 % (24-48); MEAN CORPUSCULAR HEMOGLOBIN 34 pg (25-35); MEAN CORPUSCULAR HGB CONC 32 g/dL (31-37); MEAN CORPUSCULAR VOLUME 105 fL (79-100); MONO # 0.8 x10^3/uL (0.0-1.1); MONO % 7 % (0-9); NEUT # 9.4 x10^3uL (1.8-7.7); NEUT % 83 % (31-73); PLATELET COUNT 146 x10^3/uL (140-400); RED BLOOD COUNT 3.38 x10^6/uL (3.50-5.40); RED CELL DISTRIBUTION WIDTH 15.9 % (11.5-14.5); WHITE BLOOD COUNT 11.3 x10^3/uL (4.0-11.0)
[2018-07-19 13:34] LABS: INFLUENZA A PATIENT NEGATIVE (NEGATIVE); INFLUENZA B PATIENT NEGATIVE (NEGATIVE)
[2018-07-19 13:38] LABS: CALCIUM 8.2 mg/dL (8.5-10.1); CREATININE 4.7 mg/dL (0.6-1.0); GFR 10.7; POTASSIUM 3.7 mmol/L (3.5-5.1)
[2018-07-19 13:44] LABS: ALBUMIN 2.3 g/dL (3.4-5.0); ALBUMIN/GLOBULIN RATIO 0.6 (1.0-1.7); TOTAL PROTEIN 6.2 g/dL (6.4-8.2)
[2018-07-19 13:51] LABS: PROTHROMBIN TIME PATIENT 16.5 SEC (11.7-14.0)
[2018-07-19] MEDS ORDERED: ONDANSETRON PF 4 MG/2 ML VIAL. IV PRN (14:30)
[2018-07-19] MEDS ORDERED: ACETAMINOPHEN 325 MG TABLET. PO PRN (14:30)
[2018-07-19] MEDS ORDERED: NITROGLYCERIN SUBLINGUAL 0.4 MG BOTTLE OF 25. SL PRN (14:30)
--- NOTE | 2018-07-19 14:38 | PDOC1 ---
History and Physical Date of Admission Date of Admission DATE: 07/19/18 TIME: 14:35 Identification/Chief Complaint Chief Complaint SOA, cough, low BP, did not finish dialysis Source Source: Caregiver, Chart review, Patient History of Present Illness History of Present Illness 87-year-old female whom I just admitted from 07/10 thru 07/15, discharge 4 days ago to [facility], [facility] resident, comes back in again because of the above chief complaint. Did not finish dialysis because could not feel a bruit? There was also some reports of hypotension but now blood pressure 130s with no intervention at the ER The chest x-ray maybe showed some fluid overload, BNP 35,000, the rest of the labs are chronic stable. Potassium okay bicarbonate okay. Patient is a minimal historian, full code per chart, no family at bedside. Past Medical History Cardiovascular: CAD, CHF, HTN, AK, Valve insufficiency Pulmonary: Bronchitis, COPD GI: No pertinent hx Heme/Onc: Anemia NOS Rheumatologic: No pertinent hx Infectious disease: No pertinent hx Renal/: Chronic renal insuff, UTI Endocrine: Diabetes, Hyperparathyroidism Past Surgical History Past Surgical History: CABG Family History Family History: Heart Disease, High Cholestrol, Hypertension Social History Smoke: No ALCOHOL: none Drugs: None Current Problem List Problem List Problems Medical Problems: (1) Congestive heart failure Status: Acute Current Medications Current Medications Current Medications Albuterol/ Ipratropium (Duoneb) 3 ml 1X ONCE NEB Last administered on at 12:57; Start 07/19/18 at 12:45; Stop 07/19/18 at 12:46; Status DC Ondansetron HCl (Zofran) 4 mg PRN Q8HRS PRN IV NAUSEA/VOMITING; Start 07/19/18 at 14:30; Stop 07/20/18 at 14:29 Acetaminophen (Tylenol) 650 mg PRN Q4HRS PRN PO FEVER; Start 07/19/18 at 14:30 ; Stop 07/20/18 at 14:29 Nitroglycerin (Nitrostat) 0.4 mg PRN Q5MIN PRN SL CHEST PAIN; Start 07/19/18 at 14:30; Stop 07/20/18 at 14:29 Albuterol/ Ipratropium (Duoneb) 3 ml RTQID NEB ; Start 07/19/18 at 16:00; Stop 07/20/18 at 15:59 Aspirin (Tracee Aspirin) 325 mg DAILY PO ; Start 07/20/18 at 09:00; Status UNV Carvedilol (Coreg) 3.125 mg BIDWMEALS PO ; Start 07/19/18 at 17:00; Status UNV Cinacalcet (Sensipar) 30 mg DAILY PO ; Start 07/20/18 at 09:00; Status UNV Diclofenac Sodium (Voltaren) 1 grisel BID TP ; Start 07/19/18 at 21:00; Status UNV Fentanyl (Duragesic 12mcg/ Hr Patch) 1 patch Q3DAYS TD ; Start 07/22/18 at 09:00 ; Status UNV Vitamin B Complex/ Vitamin C (Bela-Roland) 1 tab DAILYBFRSUP PO ; Start 07/19/18 at 17:00; Status UNV Ondansetron HCl (Zofran Odt) 4 mg Q6HRS PRN PO NAUSEA/VOMITING; Start 07/19/18 at 14:45; Status UNV Sevelamer Carbonate (Renvela) 2.4 gm TIDWMEALS PO ; Start 07/19/18 at 17:00; Status UNV Non-Formulary Medication (Acetaminophen ) 500 mg PRN Q6HRS PRN PO MILD PAIN / TEMP; Start 07/19/18 at 14:45; Status UNV Non-Formulary Medication (Bimatoprost (Lumigan)) 1 drop QHS EACHEYE ; Start at 21:00; Status UNV Non-Formulary Medication (Calcitriol ) 1 cap DAILY PO ; Start 07/20/18 at 09:00 ; Status UNV Non-Formulary Medication (Cholecalciferol (Vitamin D3) (Vitamin D)) 1 cap DAILY PO ; Start 07/20/18 at 09:00; Status UNV Non-Formulary Medication (Hydromorphone Hcl (Dilaudid)) 2 mg PRN TID PRN PO SEVERE PAIN; Start 07/19/18 at 14:45; Status UNV Non-Formulary Medication (Insulin Detemir (Levemir)) 5 unit QHS SQ ; Start 07/19 at 21:00; Status UNV Non-Formulary Medication (Latanoprost/Pf (Latanoprost 0.005% Eye Drop)) 7.5 ml QHS OP ; Start 07/19/18 at 21:00; Status UNV Non-Formulary Medication (Pantoprazole Sodium (Protonix)) 40 mg DAILY PO ; Start 07/20/18 at 09:00; Status UNV Active Scripts Active Levemir (Insulin Detemir) 100 Unit/1 Ml Vial 5 Unit SQ QHS 30 Days Hold for < 140mg/dL Novolog (Insulin Aspart) 100 Unit/1 Ml Cartridge 0-5 Unit SQ TIDAC 30 Days Sliding scale: 1u for every 50mg/dL > 150mg/dL Carvedilol (Carvedilol) 12.5 Mg Tablet 3.125 Mg PO BIDWMEALS 30 Days Acetaminophen 500 Mg Tablet 500 Mg PO PRN Q6HRS PRN 30 Days Dilaudid (Hydromorphone Hcl) 2 Mg Tablet 2 Mg PO PRN TID PRN 6 Days FENTANYL 12mcg/hr (Fentanyl) 1 Each Patch.td72 1 Patch TD Q3DAYS 30 Days Aspirin 325 Mg Tablet 1 Tab PO DAILY Reported Protonix (Pantoprazole Sodium) 20 Mg Tablet.dr 40 Mg PO DAILY Latanoprost 0.005% Eye Drop (Latanoprost/Pf) 7.5 Ml Drops 7.5 Ml OP QHS Voltaren (Diclofenac Sodium) 100 Gm Gel..gram. 1 Gm TP BID Zofran Odt (Ondansetron) 4 Mg Tab.rapdis 4 Mg PO Q6HRS PRN Sensipar (Cinacalcet Hcl) 30 Mg Tablet 1 Tab PO DAILY Renvela (Sevelamer Carbonate) 2.4 Gm Powd.pack 2.4 Gm PO TIDWMEALS Lumigan (Bimatoprost) 2.5 Ml Drops 1 Drop EACHEYE QHS Calcitriol 0.25 Mcg Capsule 1 Cap PO DAILY Nephro-Roland Tablet (Folic Acid/Vitamin B Comp W-C) 0.8 Mg Tablet 1 Tab PO DAILYBFRSUP Vitamin D (Cholecalciferol (Vitamin D3)) 2,000 Unit Capsule 1 Cap PO DAILY Allergies Allergies: Coded Allergies: morphine (Verified Adverse Reaction, Intermediate, HALLUCINATIONS, 08/13/16 ) ROS Review of System Cough, weak, limited otherwise because of age Physical Exam General: No acute distress, Other (coughing) HEENT: Atraumatic, PERRLA Lungs: Normal air movement, Other (diminished bases but no wheezing) Cardiovascular: S1, S2 Breasts: Normal Abdomen: Normal bowel sounds, Soft, No tenderness, No hepatosplenomegaly, No masses Rectal Exam: not examined PELVIC: Nml ext genitalia Extremities: No clubbing, No cyanosis, No edema, Normal pulses, No tenderness/ swelling Skin: No rashes, No breakdown, No significant lesion Neuro: Normal gait, Normal speech, Strength at 5/5 X4 ext, Normal tone, Sensation intact, Cranial nerves 3-12 NL, Reflexes 2+ Psych/Mental Status: Mental status NL, Mood NL Vitals Vitals Vital Signs Date Time Temp Pulse Resp B/P (MAP) Pulse Ox O2 Delivery O2 Flow Rate FiO2 07/19/18 12:58 Nasal Cannula 2.0 07/19/18 12:34 97.6 72 26 91/54 (66) 87 97.6 Labs Labs Laboratory Tests Test 07/19/18 13:11 07/19/18 13:18 Influenza Type A Antigen Negative (NEGATIVE) Influenza Type B Antigen Negative (NEGATIVE) White Blood Count 11.3 x10^3/uL (4.0-11.0) Red Blood Count 3.38 x10^6/uL (3.50-5.40) Hemoglobin 11.5 g/dL (12.0-15.5) Hematocrit 35.5 % (36.0-47.0) Mean Corpuscular Volume 105 fL (79-100) Mean Corpuscular Hemoglobin 34 pg (25-35) Mean Corpuscular Hemoglobin Concent 32 g/dL (31-37) Red Cell Distribution Width 15.9 % (11.5-14.5) Platelet Count 146 x10^3/uL (140-400) Neutrophils (%) (Auto) 83 % (31-73) Lymphocytes (%) (Auto) 8 % (24-48) Monocytes (%) (Auto) 7 % (0-9) Eosinophils (%) (Auto) 2 % (0-3) Basophils (%) (Auto) 1 % (0-3) Neutrophils # (Auto) 9.4 x10^3uL (1.8-7.7) Lymphocytes # (Auto) 0.9 x10^3/uL (1.0-4.8) Monocytes # (Auto) 0.8 x10^3/uL (0.0-1.1) Eosinophils # (Auto) 0.2 x10^3/uL (0.0-0.7) Basophils # (Auto) 0.1 x10^3/uL (0.0-0.2) Prothrombin Time 16.5 SEC (11.7-14.0) Prothromb Time International Ratio 1.4 (0.8-1.1) Sodium Level 134 mmol/L (136-145) Potassium Level 3.7 mmol/L (3.5-5.1) Chloride Level 96 mmol/L (98-107) Carbon Dioxide Level 29 mmol/L (21-32) Anion Gap 9 (6-14) Blood Urea Nitrogen 32 mg/dL (7-20) Creatinine 4.7 mg/dL (0.6-1.0) Estimated GFR (Cockcroft-Gault) 10.7 BUN/Creatinine Ratio 7 (6-20) Glucose Level 186 mg/dL (70-99) Calcium Level 8.2 mg/dL (8.5-10.1) Total Bilirubin 1.0 mg/dL (0.2-1.0) Aspartate Amino Transf (AST/SGOT) 36 U/L (15-37) Alanine Aminotransferase (ALT/SGPT) 19 U/L (14-59) Alkaline Phosphatase 202 U/L (46-116) Troponin I Quantitative 0.027 ng/mL (0.000-0.055) RP-Arr-R-Type Natriuretic Peptide > 94170 pg/mL (0-449) Total Protein 6.2 g/dL (6.4-8.2) Albumin 2.3 g/dL (3.4-5.0) Albumin/Globulin Ratio 0.6 (1.0-1.7) Laboratory Tests Test 07/19/18 13:11 07/19/18 13:18 Influenza Type A Antigen Negative (NEGATIVE) Influenza Type B Antigen Negative (NEGATIVE) White Blood Count 11.3 x10^3/uL (4.0-11.0) Red Blood Count 3.38 x10^6/uL (3.50-5.40) Hemoglobin 11.5 g/dL (12.0-15.5) Hematocrit 35.5 % (36.0-47.0) Mean Corpuscular Volume 105 fL (79-100) Mean Corpuscular Hemoglobin 34 pg (25-35) Mean Corpuscular Hemoglobin Concent 32 g/dL (31-37) Red Cell Distribution Width 15.9 % (11.5-14.5) Platelet Count 146 x10^3/uL (140-400) Neutrophils (%) (Auto) 83 % (31-73) Lymphocytes (%) (Auto) 8 % (24-48) Monocytes (%) (Auto) 7 % (0-9) Eosinophils (%) (Auto) 2 % (0-3) Basophils (%) (Auto) 1 % (0-3) Neutrophils # (Auto) 9.4 x10^3uL (1.8-7.7) Lymphocytes # (Auto) 0.9 x10^3/uL (1.0-4.8) Monocytes # (Auto) 0.8 x10^3/uL (0.0-1.1) Eosinophils # (Auto) 0.2 x10^3/uL (0.0-0.7) Basophils # (Auto) 0.1 x10^3/uL (0.0-0.2) Prothrombin Time 16.5 SEC (11.7-14.0) Prothromb Time International Ratio 1.4 (0.8-1.1) Sodium Level 134 mmol/L (136-145) Potassium Level 3.7 mmol/L (3.5-5.1) Chloride Level 96 mmol/L (98-107) Carbon Dioxide Level 29 mmol/L (21-32) Anion Gap 9 (6-14) Blood Urea Nitrogen 32 mg/dL (7-20) Creatinine 4.7 mg/dL (0.6-1.0) Estimated GFR (Cockcroft-Gault) 10.7 BUN/Creatinine Ratio 7 (6-20) Glucose Level 186 mg/dL (70-99) Calcium Level 8.2 mg/dL (8.5-10.1) Total Bilirubin 1.0 mg/dL (0.2-1.0) Aspartate Amino Transf (AST/SGOT) 36 U/L (15-37) Alanine Aminotransferase (ALT/SGPT) 19 U/L (14-59) Alkaline Phosphatase 202 U/L (46-116) Troponin I Quantitative 0.027 ng/mL (0.000-0.055) KV-Hll-F-Type Natriuretic Peptide > 15663 pg/mL (0-449) Total Protein 6.2 g/dL (6.4-8.2) Albumin 2.3 g/dL (3.4-5.0) Albumin/Globulin Ratio 0.6 (1.0-1.7) VTE Prophylaxis Ordered VTE Prophylaxis Devices: Yes VTE Pharmacological Prophylaxi: Yes Assessment/Plan Assessment/Plan SOA, fluid overload-cannot rule out HCAP ESRD on dialysis-did not finish dialysis Existing AV fistula with good bruit Hypotension, resolved now hypertension Anemia of chronic disease Generalized weakness SNU resident Diabetes type 2 on low-dose insulin PLAN: Okay to cont all home meds - I have reconciled PT OT Sliding-scale insulin moderate dose Renal diet Renal consult for dialysis Zosyn per pharmacy Follow cultures Labs again tomorrow Back to [facility] and discharged Full code seen at ERINN SINGH MD Jul 19, 2018 14:38
[2018-07-19] MEDS ORDERED: FUROSEMIDE 40 MG/4 ML VIAL. IVP ONE (14:45)
[2018-07-19] MEDS ORDERED: PIP/TAZO PER PHARMACY MC PRN (14:45)
[2018-07-19] MEDS ORDERED: ACETAMINOPHEN 500 MG TABLET PO PRN (14:45)
[2018-07-19] MEDS ORDERED: ONDANSETRON ODT 4 MG TAB.RAPDIS. PO PRN (14:45)
[2018-07-19] MEDS: ASPIRIN 325 MG TABLET PO SCH (14:52)
[2018-07-19 15:00] VITALS: BP 130/40
[2018-07-19] MEDS ORDERED: fentaNYL 12MCG/HR PATCH 1 PATCH PATCH.TD72 TD SCH (15:00)
[2018-07-19] MEDS ORDERED: HYDROmorphone 2 MG TABLET PO PRN (15:00)
--- NOTE | 2018-07-19 15:30 | NUR ---
Patient arrived to room 200 from the ER around 1530. Patient A&OX3. No complaints of pain. Patient does have cough. 2L O2 NC placed on patient. The patient, JOHNNY BENÍTEZ, 87 y/o, F admitted by ERINN ROCKWELL MD, was given written information regarding hospital policies, unit procedures and contact persons. Valuables were checked and noted. Consults to cardiology & nephrology called. Family notified & has been up to see patient. [facility] also notified. Will continue to monitor.
[2018-07-19] MEDS ORDERED: IPRATRPIUM/ALBUTEROL 0.5/2.5MG 3 ML NEBU. NEB SCH (16:00)
[2018-07-19] MEDS: IPRATRPIUM/ALBUTEROL 0.5/2.5MG 3 ML NEBU. NEB SCH ×2 (16:18→19:54)
[2018-07-19] MEDS: guaiFENesin DM 200MG/20MG 10 ML SYRUP PO SCH ×2 (16:52→21:53)
[2018-07-19] MEDS: CINACALCET HCL 30 MG TABLET PO SCH (16:52)
[2018-07-19] MEDS: FOLIC/VIT B COMP W-C (RENAL) TABLET. PO SCH (16:52)
[2018-07-19] MEDS: SEVELAMER CARBONATE 2.4 GM PACKET. PO SCH (16:53)
[2018-07-19] MEDS: INSULIN LISPRO 300 UNITS/3 ML INSULN.PEN. SQ SCH (16:58)
[2018-07-19] MEDS: PIPERACILLIN/TAZOBACTAM 2.25 GM in IV NORMAL SALINE 50ML 50 ML IV SCH (16:59)
[2018-07-19] MEDS ORDERED: DOCU100C28 PO (17:00)
[2018-07-19] MEDS ORDERED: NA P133E2 RC (17:00)
[2018-07-19] MEDS ORDERED: MAGN400O7 PO (17:00)
[2018-07-19] MEDS ORDERED: POLY17PO29 PO (17:00)
[2018-07-19] MEDS ORDERED: BISA10SU55 RC (17:00)
[2018-07-19] MEDS ORDERED: CARV12.511 PO (17:00)
[2018-07-19] MEDS ORDERED: CARVEDILOL 3.125 MG TABLET. PO SCH (17:00)
[2018-07-19] MEDS ORDERED: IPRA3AMP29 NEB (17:00)
[2018-07-19] MEDS ORDERED: SENN-80 PO (17:00)
[2018-07-19] MEDS ORDERED: INSU100I17 SQ (17:00)
[2018-07-19] MEDS ORDERED: SODIUM PHOSPHATES 19/7GM 133 ML ENEMA. RC PRN (19:45)
[2018-07-19] MEDS ORDERED: MAGNESIUM HYDROXIDE 2,400 MG/30 ML ORAL.SUSP. PO PRN (19:45)
[2018-07-19] MEDS ORDERED: BISACODYL 10 MG SUPP.RECT. PR PRN (19:45)
[2018-07-19 20:45] VITALS: BP_SYST 73; BP_SYST 77; BP_DIAS 36; BP_DIAS 64
[2018-07-19] MEDS ORDERED: LATANOPROST OP SCH (21:00)
[2018-07-19] MEDS: POLYETHYLENE GLYCOL 3350 17 GM PACKET. PO SCH (21:54)
[2018-07-19] MEDS: INSULIN GLARGINE 300 UNITS/3 ML INSULN.PEN. SQ SCH (21:54)
[2018-07-19] MEDS: LATANOPROST 0.005% OPHTH SOLUTION 2.5ML BOTTLE. OU SCH (21:54)
[2018-07-19] MEDS: DOCUSATE SODIUM 100 MG CAPSULE. PO SCH (21:54)
[2018-07-19] MEDS: DICLOFENAC SODIUM 1% TOPICAL GEL 100GM TUBE. TP SCH (22:10)
[2018-07-19 22:11] VITALS: BP 84/40
[2018-07-20] VITALS (30 sets, daily range): BP systolic 77–133; BP diastolic 35–89
--- NOTE | 2018-07-20 | NUR ---
Dr. Saez contacted earlier and alerted of pt.s b/p. No new orders taken at this time and will continue to monitor.
[2018-07-20] MEDS: PIPERACILLIN/TAZOBACTAM 2.25 GM in IV NORMAL SALINE 50ML 50 ML IV SCH ×4 (00:07→21:52)
[2018-07-20 06:37] LABS: BASO % 0 % (0-3); EOS # 0.2 x10^3/uL (0.0-0.7); EOS % 2 % (0-3); HEMATOCRIT 32.4 % (36.0-47.0); HEMOGLOBIN 10.9 g/dL (12.0-15.5); LYMPH # 0.7 x10^3/uL (1.0-4.8); LYMPH % 7 % (24-48); MEAN CORPUSCULAR HEMOGLOBIN 35 pg (25-35); MEAN CORPUSCULAR HGB CONC 34 g/dL (31-37); MEAN CORPUSCULAR VOLUME 105 fL (79-100); MONO # 0.8 x10^3/uL (0.0-1.1); MONO % 8 % (0-9); NEUT # 8.5 x10^3uL (1.8-7.7); NEUT % 83 % (31-73); PLATELET COUNT 140 x10^3/uL (140-400); RED CELL DISTRIBUTION WIDTH 15.6 % (11.5-14.5); WHITE BLOOD COUNT 10.2 x10^3/uL (4.0-11.0)
[2018-07-20 06:55] LABS: ALBUMIN 2.1 g/dL (3.4-5.0); ALBUMIN/GLOBULIN RATIO 0.5 (1.0-1.7); CALCIUM 8.3 mg/dL (8.5-10.1); CREATININE 5.2 mg/dL (0.6-1.0); GFR 7.8; POTASSIUM 3.9 mmol/L (3.5-5.1); TOTAL BILIRUBIN 1.1 mg/dL (0.2-1.0)
[2018-07-20] MEDS: INSULIN LISPRO 300 UNITS/3 ML INSULN.PEN. SQ SCH ×3 (08:00→17:00)
[2018-07-20] MEDS: SEVELAMER CARBONATE 2.4 GM PACKET. PO SCH ×3 (08:00→17:23)
[2018-07-20] MEDS: guaiFENesin DM 200MG/20MG 10 ML SYRUP PO SCH ×4 (09:00→21:52)
--- NOTE | 2018-07-20 09:39 | NUR ---
Updated patient's daughter Ila on the phone this morning. She states that patient cannot have any pain medication & that last time she was here it almost "killed her". Discontinued all pain medication that was ordered.
--- NOTE | 2018-07-20 09:41 | NUR ---
Patient very tired/lethargic this morning. Responding but falls right back to sleep. Patient coughing more than yesterday too. Notified Dr. Ortega. Orders received. Will continue to monitor.
[2018-07-20] MEDS ORDERED: MAGNESIUM SULFATE 2GM 50 ML IV PRN (09:45)
--- NOTE | 2018-07-20 09:53 | PDOC2 ---
CONSULT Date of Consult Date of Consult DATE: 07/20/18 TIME: 09:36 Reason for Consult Reason for Consult: ESRD Referring Physician Referring Physician: Chela Escobar Identification/Chief Complaint Chief Complaint Patient is a pleasant 87-year-old female with significant past medical history is reviewed below. She is known to have been on dialysis for approximately 8 years. She is currently under the care of Dr. Jiang and dialyzes on a Saturday schedule at [facility]. She was at dialysis yesterday and developed hypotension. It was also felt that her fistula may not be working as well. She was also noted to be wheezing and was sent to the hospital for further evaluation. It should be noted that patient was recently admitted to this facility earlier this month and is now residing [place] [facility] facility to assist with rehabilitation and strengthening. It should be noted from prior discharge summary that it is felt that patient is contemplating stopping dialysis. She is currently in no respiratory distress but does have some wheezing and coughing. She is not orthopneic and is laying flat in bed currently. She denies fevers chills per se. She has not experienced any other problems with dialysis that she reports. On arrival here patient was noted to be somewhat hypotensive but appears to have rebounded from that currently. Source Source: Chart review, Patient Past Medical History Cardiovascular: CAD, CHF, HTN, RI, Valve insufficiency Pulmonary: Bronchitis, COPD GI: No pertinent hx Heme/Onc: Anemia NOS Rheumatologic: No pertinent hx Infectious disease: No pertinent hx Renal/: Chronic renal insuff, UTI Endocrine: Diabetes, Hyperparathyroidism Past Surgical History Past Surgical History: CABG Family History Family History: Heart Disease, High Cholestrol, Hypertension Social History No ALCOHOL: none Drugs: None Lives: Snf Current Problem List Problem List Problems Medical Problems: (1) Congestive heart failure Status: Acute Current Medications Current Medications Current Medications Albuterol/ Ipratropium (Duoneb) 3 ml 1X ONCE NEB Last administered on at 12:57; Start 07/19/18 at 12:45; Stop 07/19/18 at 12:46; Status DC Ondansetron HCl (Zofran) 4 mg PRN Q8HRS PRN IV NAUSEA/VOMITING; Start 07/19/18 at 14:30; Stop 07/20/18 at 14:29 Acetaminophen (Tylenol) 650 mg PRN Q4HRS PRN PO FEVER; Start 07/19/18 at 14:30 ; Stop 07/20/18 at 08:37; Status DC Nitroglycerin (Nitrostat) 0.4 mg PRN Q5MIN PRN SL CHEST PAIN; Start 07/19/18 at 14:30; Stop 07/20/18 at 14:29 Albuterol/ Ipratropium (Duoneb) 3 ml RTQID NEB ; Start 07/19/18 at 16:00; Stop 07/20/18 at 15:59; Status Cancel Aspirin (Tracee Aspirin) 325 mg DAILY PO Last administered on 07/19/18at 14:52; Start 07/19/18 at 15:00 Carvedilol (Coreg) 3.125 mg BIDWMEALS PO ; Start 07/19/18 at 17:00; Stop at 19:42; Status DC Cinacalcet (Sensipar) 30 mg DAILY PO Last administered on 07/19/18at 16:52; Start 07/19/18 at 15:00 Diclofenac Sodium (Voltaren) 1 grisel BID TP Last administered on 07/19/18at 22:10 ; Start 07/19/18 at 21:00 Fentanyl (Duragesic 12mcg/ Hr Patch) 1 patch Q3DAYS TD ; Start 07/19/18 at 15:00 ; Stop 07/19/18 at 19:42; Status DC Vitamin B Complex/ Vitamin C (Bela-Roland) 1 tab DAILYBFRSUP PO Last administered on 07/19/18at 16:52; Start 07/19/18 at 17:00 Ondansetron HCl (Zofran Odt) 4 mg PRN Q6HRS PRN PO NAUSEA/VOMITING; Start 07/19 at 14:45 Sevelamer Carbonate (Renvela) 2.4 gm TIDWMEALS PO Last administered on at 16:53; Start 07/19/18 at 17:00 Acetaminophen (Tylenol) 500 mg PRN Q6HRS PRN PO MILD PAIN / TEMP; Start at 14:45 Latanoprost (Xalatan) 1 drop QHS OU Last administered on 07/19/18at 21:54; Start 07/19/18 at 21:00 Calcitriol (Rocaltrol) 0.25 mcg DAILY PO ; Start 07/20/18 at 09:00 Vitamin D (Vitamin D3) 1,000 unit DAILY PO ; Start 07/20/18 at 09:00 Hydromorphone HCl (Dilaudid) 2 mg PRN Q8HRS PRN PO MODERATE PAIN, SEVERE PAIN; Start 07/19/18 at 15:00; Stop 07/20/18 at 09:31; Status DC Insulin Glargine (Lantus) 5 units QHS SQ Last administered on 07/19/18at 21:54; Start 07/19/18 at 21:00 Non-Formulary Medication (Latanoprost/Pf (Latanoprost 0.005% Eye Drop)) 7.5 ml QHS OP ; Start 07/19/18 at 21:00; Status UNV Pantoprazole Sodium (Protonix) 40 mg DAILYAC PO ; Start 07/20/18 at 07:30 Piperacillin Sod/ Tazobactam Sod (Zosyn Per Pharmacy) 1 each PRN DAILY PRN MC SEE COMMENTS; Start 07/19/18 at 14:45 Albuterol/ Ipratropium (Duoneb) 3 ml RTQID NEB Last administered on 07/19/18at 19:54; Start 07/19/18 at 16:00 Guaifenesin (Robitussin Dm) 10 ml QID PO Last administered on 07/19/18at 21:53; Start 07/19/18 at 17:00 Temazepam (Restoril) 7.5 mg PRN QHS PRN PO INSOMNIA; Start 07/19/18 at 14:45 Insulin Human Lispro (HumaLOG) 0-7 UNITS TIDWMEALS SQ Last administered on 07/19at 16:58; Start 07/19/18 at 17:00 Dextrose (Dextrose 50%-Water Syringe) 12.5 gm PRN Q15MIN PRN IV SEE COMMENTS; Start 07/19/18 at 14:45 Piperacillin Sod/ Tazobactam Sod 2.25 gm/Sodium Chloride 50 ml @ 100 mls/hr Q8H IV Last administered on 07/20/18at 08:20; Start 07/19/18 at 16:00 Furosemide (Lasix) 40 mg 1X ONCE IVP Last administered on 07/19/18at 14:52; Start 07/19/18 at 14:45; Stop 07/19/18 at 14:52; Status DC Docusate Sodium (Colace) 100 mg BID PO Last administered on 07/19/18at 21:54; Start 07/19/18 at 21:00 Magnesium Hydroxide (Milk Of Magnesia) 2,400 mg PRN DAILY PRN PO CONSTIPATION; Start 07/19/18 at 19:45 Sodium Monofluorophosphate (Fleet Adult) 133 ml PRN DAILY PRN RC CONSTIPATION; Start 07/19/18 at 19:45 Bisacodyl (Dulcolax Supp) 10 mg PRN DAILY PRN [place] CONSTIPATION; Start 07/19/18 at 19:45 Polyethylene Glycol (miraLAX PACKET) 17 gm BID PO Last administered on at 21:54; Start 07/19/18 at 21:00 Sennosides (Senna) 8.6 mg DAILY PO ; Start 07/20/18 at 09:00 Lactobacillus Rhamnosus (Culturelle) 1 cap BID PO ; Start 07/20/18 at 21:00 Active Scripts Active Levemir (Insulin Detemir) 100 Unit/1 Ml Vial 5 Unit SQ QHS 30 Days Hold for < 140mg/dL Acetaminophen 500 Mg Tablet 500 Mg PO PRN Q6HRS PRN 30 Days Aspirin 325 Mg Tablet 1 Tab PO DAILY Reported Senna (Sennosides) 8.6 Mg Tablet 8.6 Mg PO DAILY Novolog Flexpen (Insulin Aspart) 100 Unit/1 Ml Insuln.pen 1 Unit SQ TIDAC Miralax (Polyethylene Glycol 3350) 17 Gm Powd.pack 1 Packet PO BID Milk Of Magnesia (Magnesium Hydroxide) 400 Mg/5 Ml Oral.susp 30 Ml PO PRN DAILY Duoneb 0.5-3(2.5) Mg/3 Ml (Albuterol/Ipratropium) 3 Ml Ampul.neb 3 Ml NEB TID Fleet Enema (Na Phos,M-B/Na Phos,Di-Ba) 133 Ml Enema 1 Each RC PRN DAILY PRN Dulcolax (Bisacodyl) 10 Mg Supp.rect 10 Mg RC PRN DAILY PRN Docusate Sodium 100 Mg Capsule 1 Cap PO BID Carvedilol (Carvedilol) 12.5 Mg Tablet 12.5 Mg PO BIDWMEALS Protonix (Pantoprazole Sodium) 20 Mg Tablet.dr 40 Mg PO DAILY Voltaren (Diclofenac Sodium) 100 Gm Gel..gram. 1 Gm TP BID Zofran Odt (Ondansetron) 4 Mg Tab.rapdis 4 Mg PO Q6HRS PRN Sensipar (Cinacalcet Hcl) 30 Mg Tablet 1 Tab PO DAILY Renvela (Sevelamer Carbonate) 2.4 Gm Powd.pack 2.4 Gm PO TIDWMEALS Lumigan (Bimatoprost) 2.5 Ml Drops 1 Drop EACHEYE QHS Calcitriol 0.25 Mcg Capsule 1 Cap PO DAILY Nephro-Roland Tablet (Folic Acid/Vitamin B Comp W-C) 0.8 Mg Tablet 1 Tab PO DAILYBFRSUP Vitamin D (Cholecalciferol (Vitamin D3)) 2,000 Unit Capsule 1 Cap PO DAILY Allergies Allergies: Coded Allergies: morphine (Verified Adverse Reaction, Intermediate, HALLUCINATIONS, 08/13/16 ) ROS Review of System (Point review of systems conducted with the patient is grossly negative other than as mentioned in history of present illness Physical Exam Physical Exam General Appearance: Awake Alert Oriented x 3 In no visible Distress Eyes: VIsion Unchanged Conjunctiva Normal EN: No EN Drainage Mucous Memb. moist Neck: no JVD + JVP Supple no Thyromegaly CVS: S1 S2 Sys Murmur No Gallop No Rub no Edema Resp: ? Rales occ Rhonchi no Acc. Muscle use GI: BAS +ve NO Bruit Non Tender Non Distended : no CVA tenderness; no Suprapubic Tenderness SKIN: no visible Rashes Breast Exam deferred Mu.Sk: Adequate ROM no Muscle Atrophy, right upper arm AV fistula with good bruit and thrill Heme: Unable to palpate Obvious LAD no palp Splenomegaly NEURO: Good Strength and Tone Cranial Nerves II - XII grossly intact Psych: somewhat Depressed no Active hallucination Vital Signs Vital Signs Date Time Temp Pulse Resp B/P (MAP) Pulse Ox O2 Delivery O2 Flow Rate FiO2 07/20/18 08:20 94 Nasal Cannula 2.0 07/20/18 07:00 98.1 78 18 105/75 (85) 98.1 Assessment & Plan ESRD : Current FLuid and E-lyte status does not necessitate emergent need for Dialysis. Will re-evaluate for Dialysis in am and continue on TTSat schedule. Anemia of CKD/ ESRD: Epogen as ordered. Transfuse with next HD as needed. HypoTN: Doubt related to hypovolemia. Small IV 5% albumin boluses can be administered if maps dropped below 65. Not sure if vasculopathy is contributing to the same. She however does appear somewhat symptomatic with lethargy as described previously. Not sure if lethargy is attributable to upper respiratory tract infection or to lowish blood pressures currently. Hypoalbuminemia: IV albumin administration as above. Patient has had numerous hospitalizations in the recent past and some amount of failure to thrive due to the same as expected. Bone & Mineral: Follow phosphorus levels and alter binder regimen based on by mouth intake Discussed Plan of Care and prognosis etc. at length with Dr Paula Labs Labs Laboratory Tests Test 07/19/18 13:11 07/19/18 13:18 07/19/18 16:28 07/19/18 20:54 Influenza Type A Antigen Negative (NEGATIVE) Influenza Type B Antigen Negative (NEGATIVE) White Blood Count 11.3 x10^3/uL (4.0-11.0) Red Blood Count 3.38 x10^6/uL (3.50-5.40) Hemoglobin 11.5 g/dL (12.0-15.5) Hematocrit 35.5 % (36.0-47.0) Mean Corpuscular Volume 105 fL (79-100) Mean Corpuscular Hemoglobin 34 pg (25-35) Mean Corpuscular Hemoglobin Concent 32 g/dL (31-37) Red Cell Distribution Width 15.9 % (11.5-14.5) Platelet Count 146 x10^3/uL (140-400) Neutrophils (%) (Auto) 83 % (31-73) Lymphocytes (%) (Auto) 8 % (24-48) Monocytes (%) (Auto) 7 % (0-9) Eosinophils (%) (Auto) 2 % (0-3) Basophils (%) (Auto) 1 % (0-3) Neutrophils # (Auto) 9.4 x10^3uL (1.8-7.7) Lymphocytes # (Auto) 0.9 x10^3/uL (1.0-4.8) Monocytes # (Auto) 0.8 x10^3/uL (0.0-1.1) Eosinophils # (Auto) 0.2 x10^3/uL (0.0-0.7) Basophils # (Auto) 0.1 x10^3/uL (0.0-0.2) Prothrombin Time 16.5 SEC (11.7-14.0) Prothromb Time International Ratio 1.4 (0.8-1.1) Sodium Level 134 mmol/L (136-145) Potassium Level 3.7 mmol/L (3.5-5.1) Chloride Level 96 mmol/L (98-107) Carbon Dioxide Level 29 mmol/L (21-32) Anion Gap 9 (6-14) Blood Urea Nitrogen 32 mg/dL (7-20) Creatinine 4.7 mg/dL (0.6-1.0) Estimated GFR (Cockcroft-Gault) 10.7 BUN/Creatinine Ratio 7 (6-20) Glucose Level 186 mg/dL (70-99) Calcium Level 8.2 mg/dL (8.5-10.1) Total Bilirubin 1.0 mg/dL (0.2-1.0) Aspartate Amino Transf (AST/SGOT) 36 U/L (15-37) Alanine Aminotransferase (ALT/SGPT) 19 U/L (14-59) Alkaline Phosphatase 202 U/L (46-116) Troponin I Quantitative 0.027 ng/mL (0.000-0.055) PP-Ifk-F-Type Natriuretic Peptide > 73673 pg/mL (0-449) Total Protein 6.2 g/dL (6.4-8.2) Albumin 2.3 g/dL (3.4-5.0) Albumin/Globulin Ratio 0.6 (1.0-1.7) Glucose (Fingerstick) 155 mg/dL (70-99) 105 mg/dL (70-99) Test 07/20/18 04:55 07/20/18 08:14 White Blood Count 10.2 x10^3/uL (4.0-11.0) Red Blood Count 3.10 x10^6/uL (3.50-5.40) Hemoglobin 10.9 g/dL (12.0-15.5) Hematocrit 32.4 % (36.0-47.0) Mean Corpuscular Volume 105 fL (79-100) Mean Corpuscular Hemoglobin 35 pg (25-35) Mean Corpuscular Hemoglobin Concent 34 g/dL (31-37) Red Cell Distribution Width 15.6 % (11.5-14.5) Platelet Count 140 x10^3/uL (140-400) Neutrophils (%) (Auto) 83 % (31-73) Lymphocytes (%) (Auto) 7 % (24-48) Monocytes (%) (Auto) 8 % (0-9) Eosinophils (%) (Auto) 2 % (0-3) Basophils (%) (Auto) 0 % (0-3) Neutrophils # (Auto) 8.5 x10^3uL (1.8-7.7) Lymphocytes # (Auto) 0.7 x10^3/uL (1.0-4.8) Monocytes # (Auto) 0.8 x10^3/uL (0.0-1.1) Eosinophils # (Auto) 0.2 x10^3/uL (0.0-0.7) Basophils # (Auto) 0.0 x10^3/uL (0.0-0.2) Sodium Level 134 mmol/L (136-145) Potassium Level 3.9 mmol/L (3.5-5.1) Chloride Level 97 mmol/L (98-107) Carbon Dioxide Level 31 mmol/L (21-32) Anion Gap 6 (6-14) Blood Urea Nitrogen 37 mg/dL (7-20) Creatinine 5.2 mg/dL (0.6-1.0) Estimated GFR (Cockcroft-Gault) 7.8 BUN/Creatinine Ratio 7 (6-20) Glucose Level 86 mg/dL (70-99) Calcium Level 8.3 mg/dL (8.5-10.1) Total Bilirubin 1.1 mg/dL (0.2-1.0) Aspartate Amino Transf (AST/SGOT) 30 U/L (15-37) Alanine Aminotransferase (ALT/SGPT) 15 U/L (14-59) Alkaline Phosphatase 176 U/L (46-116) Total Protein 6.0 g/dL (6.4-8.2) Albumin 2.1 g/dL (3.4-5.0) Albumin/Globulin Ratio 0.5 (1.0-1.7) Glucose (Fingerstick) 92 mg/dL (70-99) Laboratory Tests Test 07/19/18 13:11 07/19/18 13:18 07/19/18 16:28 07/19/18 20:54 Influenza Type A Antigen Negative (NEGATIVE) Influenza Type B Antigen Negative (NEGATIVE) White Blood Count 11.3 x10^3/uL (4.0-11.0) Red Blood Count 3.38 x10^6/uL (3.50-5.40) Hemoglobin 11.5 g/dL (12.0-15.5) Hematocrit 35.5 % (36.0-47.0) Mean Corpuscular Volume 105 fL (79-100) Mean Corpuscular Hemoglobin 34 pg (25-35) Mean Corpuscular Hemoglobin Concent 32 g/dL (31-37) Red Cell Distribution Width 15.9 % (11.5-14.5) Platelet Count 146 x10^3/uL (140-400) Neutrophils (%) (Auto) 83 % (31-73) Lymphocytes (%) (Auto) 8 % (24-48) Monocytes (%) (Auto) 7 % (0-9) Eosinophils (%) (Auto) 2 % (0-3) Basophils (%) (Auto) 1 % (0-3) Neutrophils # (Auto) 9.4 x10^3uL (1.8-7.7) Lymphocytes # (Auto) 0.9 x10^3/uL (1.0-4.8) Monocytes # (Auto) 0.8 x10^3/uL (0.0-1.1) Eosinophils # (Auto) 0.2 x10^3/uL (0.0-0.7) Basophils # (Auto) 0.1 x10^3/uL (0.0-0.2) Prothrombin Time 16.5 SEC (11.7-14.0) Prothromb Time International Ratio 1.4 (0.8-1.1) Sodium Level 134 mmol/L (136-145) Potassium Level 3.7 mmol/L (3.5-5.1) Chloride Level 96 mmol/L (98-107) Carbon Dioxide Level 29 mmol/L (21-32) Anion Gap 9 (6-14) Blood Urea Nitrogen 32 mg/dL (7-20) Creatinine 4.7 mg/dL (0.6-1.0) Estimated GFR (Cockcroft-Gault) 10.7 BUN/Creatinine Ratio 7 (6-20) Glucose Level 186 mg/dL (70-99) Calcium Level 8.2 mg/dL (8.5-10.1) Total Bilirubin 1.0 mg/dL (0.2-1.0) Aspartate Amino Transf (AST/SGOT) 36 U/L (15-37) Alanine Aminotransferase (ALT/SGPT) 19 U/L (14-59) Alkaline Phosphatase 202 U/L (46-116) Troponin I Quantitative 0.027 ng/mL (0.000-0.055) LH-Pfz-J-Type Natriuretic Peptide > 06570 pg/mL (0-449) Total Protein 6.2 g/dL (6.4-8.2) Albumin 2.3 g/dL (3.4-5.0) Albumin/Globulin Ratio 0.6 (1.0-1.7) Glucose (Fingerstick) 155 mg/dL (70-99) 105 mg/dL (70-99) Test 07/20/18 04:55 07/20/18 08:14 White Blood Count 10.2 x10^3/uL (4.0-11.0) Red Blood Count 3.10 x10^6/uL (3.50-5.40) Hemoglobin 10.9 g/dL (12.0-15.5) Hematocrit 32.4 % (36.0-47.0) Mean Corpuscular Volume 105 fL (79-100) Mean Corpuscular Hemoglobin 35 pg (25-35) Mean Corpuscular Hemoglobin Concent 34 g/dL (31-37) Red Cell Distribution Width 15.6 % (11.5-14.5) Platelet Count 140 x10^3/uL (140-400) Neutrophils (%) (Auto) 83 % (31-73) Lymphocytes (%) (Auto) 7 % (24-48) Monocytes (%) (Auto) 8 % (0-9) Eosinophils (%) (Auto) 2 % (0-3) Basophils (%) (Auto) 0 % (0-3) Neutrophils # (Auto) 8.5 x10^3uL (1.8-7.7) Lymphocytes # (Auto) 0.7 x10^3/uL (1.0-4.8) Monocytes # (Auto) 0.8 x10^3/uL (0.0-1.1) Eosinophils # (Auto) 0.2 x10^3/uL (0.0-0.7) Basophils # (Auto) 0.0 x10^3/uL (0.0-0.2) Sodium Level 134 mmol/L (136-145) Potassium Level 3.9 mmol/L (3.5-5.1) Chloride Level 97 mmol/L (98-107) Carbon Dioxide Level 31 mmol/L (21-32) Anion Gap 6 (6-14) Blood Urea Nitrogen 37 mg/dL (7-20) Creatinine 5.2 mg/dL (0.6-1.0) Estimated GFR (Cockcroft-Gault) 7.8 BUN/Creatinine Ratio 7 (6-20) Glucose Level 86 mg/dL (70-99) Calcium Level 8.3 mg/dL (8.5-10.1) Total Bilirubin 1.1 mg/dL (0.2-1.0) Aspartate Amino Transf (AST/SGOT) 30 U/L (15-37) Alanine Aminotransferase (ALT/SGPT) 15 U/L (14-59) Alkaline Phosphatase 176 U/L (46-116) Total Protein 6.0 g/dL (6.4-8.2) Albumin 2.1 g/dL (3.4-5.0) Albumin/Globulin Ratio 0.5 (1.0-1.7) Glucose (Fingerstick) 92 mg/dL (70-99) Review All relevant outside records, renal labs, imaging studies, telemetry/EKG's were reviewed. Images Images ECHO The systolic function is mildly to moderately impaired. The Ejection Fraction is 40%. There is a flattened septum consistent with right ventricle volume and pressure overload. There is global hypokinesis of the left ventricle. The right ventricle is moderately dilated. Doppler and Color Flow revealed severe tricuspid regurgitation. The PA pressure was estimated to be at least 51 mmHg but probably underestimated due severe regurgitation. Most recent chest x-ray Impression: 1. Mild linear atelectasis or fibrotic change of the mid left hemithorax is stable to less prominent. There is again enlargement of the pericardial cardiac silhouette. CHAO MOY MD Jul 20, 2018 09:53
--- NOTE | 2018-07-20 10:01 | CONS ---
DATE OF CONSULTATION: 07/20/2018 ATTENDING PHYSICIAN: Dr. Alfredo. Misha REASON FOR CONSULTATION: Dyspnea. HISTORY OF PRESENT ILLNESS: The patient is an 87-year-old female with history of end-stage renal disease. She was discharged from 07/10/2018-07/15/2018 after 4 days of hospitalization. She went to [place]. She came back with complaint of shortness of breath, some wheezing and also a cough which has been nonproductive. She was noted to have low blood pressure. As a result, she could not finish the dialysis. During her recent stay, CT chest was reviewed by me and it shows some ground glass upper lobe infiltrates suggesting pneumonitis. There was mild evidence of CHF at that time. Her chest x-ray on this admission does not appear to have significant CHF. No nausea, vomiting, no headaches, no diarrhea, no dysuria, no focal weakness. PAST MEDICAL HISTORY: History of CAD, history of cardiomyopathy with an EF of 40%, history of secondary pulmonary hypertension, history of CHF, history of UTIs, diabetes, hyperparathyroidism, end-stage renal disease, on hemodialysis. PAST SURGICAL HISTORY: CABG. FAMILY HISTORY: Heart disease and hypertension. SOCIAL HISTORY: She does not smoke cigarettes. ALLERGIES: MORPHINE. CURRENT MEDICATIONS: Reviewed as listed in the MRAD including antibiotics, Zosyn. REVIEW OF SYSTEMS: Twelve-point system obtained. Pertinent positives discussed in my history of present illness, otherwise noncontributory. All systems that were negative were reviewed as well. PHYSICAL EXAMINATION: VITAL SIGNS: Her vital signs were reviewed. Blood pressure 105/71. She is afebrile, pulse ox is 94% on 2 liters. NECK: Supple. LUNGS: With faint expiratory wheezes. CARDIOVASCULAR: Regular rate and rhythm. ABDOMEN: Soft, nontender. EXTREMITIES: With no pitting edema. LABORATORY DATA: Reviewed. Influenza screen is negative. BUN 37, creatinine 5.2, albumin is 2.1, sodium 134. White cell count now 10.2, was 11.3 on admission. IMPRESSION: 1. Dyspnea with cough and mild bronchospasm, likely related to viral pneumonitis, triggering bronchospasm. She may have adult onset reactive airway disease. Clinically, less likely congestive heart failure. She was hypotensive during dialysis. 2. Recent abnormal CT chest on 07/11 suggesting upper lobe viral pneumonitis. She has some ground glass infiltrates at that time. 3. End-stage renal disease, on hemodialysis. 4. Underlying obesity. 5. Chronic hypoxic respiratory failure, on home oxygen 2 liters. RECOMMENDATIONS: 1. Continue with present oxygen. 2. Continue DuoNebs. 3. Add low dose Solu-Medrol. 4. Hemodialysis per Renal. 5. Continue antibiotics, Zosyn. 6. Discussed with RN and discussed with Dr. Hoang Grialdo. We will follow along with you. GIAN SHAFFER MD DR: ERICKA/regan JOB#: [id number] / [id number]
--- NOTE | 2018-07-20 10:48 | PDOC ---
PROGRESS NOTES Chief Complaint Chief Complaint 87-year-old female //admitted from 07/10 thru 07/15, discharge 4 days ago to [facility] , [facility] resident, Did not finish dialysis because could not feel a bruit? hypotension but now blood pressure 130s somewhat symptomatic with lethargy History of Present Illness History of Present Illness Assessment/Plan Assessment/Plan SOA, fluid overload-cannot rule out HCAP ESRD on dialysis-did not finish dialysis Existing AV fistula with good bruit Hypotension, resolved now hypertension Anemia of chronic disease Generalized weakness SNU resident Diabetes type 2 on low-dose insulin symptomatic with lethargy hypotension PLAN: DIALYSIS- PT OT Sliding-scale insulin moderate dose Renal diet Renal consult Zosyn per pharmacy Follow cultures FREQUENT LABS Back to [facility] on d/c Small IV 5% albumin boluses can be administered if maps dropped below 65 Full code 47 min visit time, pt exam chart review > 50% time with exam, chart review pt care coordination Vitals Vitals Vital Signs Date Time Temp Pulse Resp B/P (MAP) Pulse Ox O2 Delivery O2 Flow Rate FiO2 07/20/18 08:20 94 Nasal Cannula 2.0 07/20/18 07:00 98.1 78 18 105/75 (85) 98.1 Physical Exam Physical Exam Abdomen: Normal bowel sounds, Soft, No tenderness, No hepatosplenomegaly, No masses Rectal Exam: not examined Extremities: No clubbing, No cyanosis, No edema, Normal pulses, No tenderness/ swelling Skin: No rashes, No breakdown, No significant lesion Neuro: Normal speech, Strength at 5/5 X4 ext, Normal tone, Sensation intact, Cranial nerves 3-12 NL,GROSSLY Psych/Mental Status: Mental status NL, Mood NL General: Alert, Cooperative, No acute distress, Other (coughing) Lungs: Wheezing Abdomen: Normal bowel sounds, Soft, No tenderness, No hepatosplenomegaly, No masses Extremities: No clubbing, No cyanosis, No edema, Normal pulses, No tenderness/ swelling Skin: No rashes, No breakdown, No significant lesion Labs LABS Laboratory Tests Test 07/19/18 13:11 07/19/18 13:18 07/19/18 16:28 07/19/18 20:54 Influenza Type A Antigen Negative (NEGATIVE) Influenza Type B Antigen Negative (NEGATIVE) White Blood Count 11.3 x10^3/uL (4.0-11.0) Red Blood Count 3.38 x10^6/uL (3.50-5.40) Hemoglobin 11.5 g/dL (12.0-15.5) Hematocrit 35.5 % (36.0-47.0) Mean Corpuscular Volume 105 fL (79-100) Mean Corpuscular Hemoglobin 34 pg (25-35) Mean Corpuscular Hemoglobin Concent 32 g/dL (31-37) Red Cell Distribution Width 15.9 % (11.5-14.5) Platelet Count 146 x10^3/uL (140-400) Neutrophils (%) (Auto) 83 % (31-73) Lymphocytes (%) (Auto) 8 % (24-48) Monocytes (%) (Auto) 7 % (0-9) Eosinophils (%) (Auto) 2 % (0-3) Basophils (%) (Auto) 1 % (0-3) Neutrophils # (Auto) 9.4 x10^3uL (1.8-7.7) Lymphocytes # (Auto) 0.9 x10^3/uL (1.0-4.8) Monocytes # (Auto) 0.8 x10^3/uL (0.0-1.1) Eosinophils # (Auto) 0.2 x10^3/uL (0.0-0.7) Basophils # (Auto) 0.1 x10^3/uL (0.0-0.2) Prothrombin Time 16.5 SEC (11.7-14.0) Prothromb Time International Ratio 1.4 (0.8-1.1) Sodium Level 134 mmol/L (136-145) Potassium Level 3.7 mmol/L (3.5-5.1) Chloride Level 96 mmol/L (98-107) Carbon Dioxide Level 29 mmol/L (21-32) Anion Gap 9 (6-14) Blood Urea Nitrogen 32 mg/dL (7-20) Creatinine 4.7 mg/dL (0.6-1.0) Estimated GFR (Cockcroft-Gault) 10.7 BUN/Creatinine Ratio 7 (6-20) Glucose Level 186 mg/dL (70-99) Calcium Level 8.2 mg/dL (8.5-10.1) Total Bilirubin 1.0 mg/dL (0.2-1.0) Aspartate Amino Transf (AST/SGOT) 36 U/L (15-37) Alanine Aminotransferase (ALT/SGPT) 19 U/L (14-59) Alkaline Phosphatase 202 U/L (46-116) Troponin I Quantitative 0.027 ng/mL (0.000-0.055) SC-Flf-M-Type Natriuretic Peptide > 94079 pg/mL (0-449) Total Protein 6.2 g/dL (6.4-8.2) Albumin 2.3 g/dL (3.4-5.0) Albumin/Globulin Ratio 0.6 (1.0-1.7) Glucose (Fingerstick) 155 mg/dL (70-99) 105 mg/dL (70-99) Test 07/20/18 04:55 07/20/18 08:14 White Blood Count 10.2 x10^3/uL (4.0-11.0) Red Blood Count 3.10 x10^6/uL (3.50-5.40) Hemoglobin 10.9 g/dL (12.0-15.5) Hematocrit 32.4 % (36.0-47.0) Mean Corpuscular Volume 105 fL (79-100) Mean Corpuscular Hemoglobin 35 pg (25-35) Mean Corpuscular Hemoglobin Concent 34 g/dL (31-37) Red Cell Distribution Width 15.6 % (11.5-14.5) Platelet Count 140 x10^3/uL (140-400) Neutrophils (%) (Auto) 83 % (31-73) Lymphocytes (%) (Auto) 7 % (24-48) Monocytes (%) (Auto) 8 % (0-9) Eosinophils (%) (Auto) 2 % (0-3) Basophils (%) (Auto) 0 % (0-3) Neutrophils # (Auto) 8.5 x10^3uL (1.8-7.7) Lymphocytes # (Auto) 0.7 x10^3/uL (1.0-4.8) Monocytes # (Auto) 0.8 x10^3/uL (0.0-1.1) Eosinophils # (Auto) 0.2 x10^3/uL (0.0-0.7) Basophils # (Auto) 0.0 x10^3/uL (0.0-0.2) Sodium Level 134 mmol/L (136-145) Potassium Level 3.9 mmol/L (3.5-5.1) Chloride Level 97 mmol/L (98-107) Carbon Dioxide Level 31 mmol/L (21-32) Anion Gap 6 (6-14) Blood Urea Nitrogen 37 mg/dL (7-20) Creatinine 5.2 mg/dL (0.6-1.0) Estimated GFR (Cockcroft-Gault) 7.8 BUN/Creatinine Ratio 7 (6-20) Glucose Level 86 mg/dL (70-99) Calcium Level 8.3 mg/dL (8.5-10.1) Total Bilirubin 1.1 mg/dL (0.2-1.0) Aspartate Amino Transf (AST/SGOT) 30 U/L (15-37) Alanine Aminotransferase (ALT/SGPT) 15 U/L (14-59) Alkaline Phosphatase 176 U/L (46-116) Total Protein 6.0 g/dL (6.4-8.2) Albumin 2.1 g/dL (3.4-5.0) Albumin/Globulin Ratio 0.5 (1.0-1.7) Glucose (Fingerstick) 92 mg/dL (70-99) Assessment and Plan Assessmemt and Plan Problems Medical Problems: (1) Congestive heart failure Status: Acute Comment Review of Relevant I have reviewed the following items smith (where applicable) has been applied. Labs Laboratory Tests Test 07/19/18 13:11 07/19/18 13:18 07/19/18 16:28 07/19/18 20:54 Influenza Type A Antigen Negative (NEGATIVE) Influenza Type B Antigen Negative (NEGATIVE) White Blood Count 11.3 x10^3/uL (4.0-11.0) Red Blood Count 3.38 x10^6/uL (3.50-5.40) Hemoglobin 11.5 g/dL (12.0-15.5) Hematocrit 35.5 % (36.0-47.0) Mean Corpuscular Volume 105 fL (79-100) Mean Corpuscular Hemoglobin 34 pg (25-35) Mean Corpuscular Hemoglobin Concent 32 g/dL (31-37) Red Cell Distribution Width 15.9 % (11.5-14.5) Platelet Count 146 x10^3/uL (140-400) Neutrophils (%) (Auto) 83 % (31-73) Lymphocytes (%) (Auto) 8 % (24-48) Monocytes (%) (Auto) 7 % (0-9) Eosinophils (%) (Auto) 2 % (0-3) Basophils (%) (Auto) 1 % (0-3) Neutrophils # (Auto) 9.4 x10^3uL (1.8-7.7) Lymphocytes # (Auto) 0.9 x10^3/uL (1.0-4.8) Monocytes # (Auto) 0.8 x10^3/uL (0.0-1.1) Eosinophils # (Auto) 0.2 x10^3/uL (0.0-0.7) Basophils # (Auto) 0.1 x10^3/uL (0.0-0.2) Prothrombin Time 16.5 SEC (11.7-14.0) Prothromb Time International Ratio 1.4 (0.8-1.1) Sodium Level 134 mmol/L (136-145) Potassium Level 3.7 mmol/L (3.5-5.1) Chloride Level 96 mmol/L (98-107) Carbon Dioxide Level 29 mmol/L (21-32) Anion Gap 9 (6-14) Blood Urea Nitrogen 32 mg/dL (7-20) Creatinine 4.7 mg/dL (0.6-1.0) Estimated GFR (Cockcroft-Gault) 10.7 BUN/Creatinine Ratio 7 (6-20) Glucose Level 186 mg/dL (70-99) Calcium Level 8.2 mg/dL (8.5-10.1) Total Bilirubin 1.0 mg/dL (0.2-1.0) Aspartate Amino Transf (AST/SGOT) 36 U/L (15-37) Alanine Aminotransferase (ALT/SGPT) 19 U/L (14-59) Alkaline Phosphatase 202 U/L (46-116) Troponin I Quantitative 0.027 ng/mL (0.000-0.055) WE-Ezk-X-Type Natriuretic Peptide > 90504 pg/mL (0-449) Total Protein 6.2 g/dL (6.4-8.2) Albumin 2.3 g/dL (3.4-5.0) Albumin/Globulin Ratio 0.6 (1.0-1.7) Glucose (Fingerstick) 155 mg/dL (70-99) 105 mg/dL (70-99) Test 07/20/18 04:55 07/20/18 08:14 White Blood Count 10.2 x10^3/uL (4.0-11.0) Red Blood Count 3.10 x10^6/uL (3.50-5.40) Hemoglobin 10.9 g/dL (12.0-15.5) Hematocrit 32.4 % (36.0-47.0) Mean Corpuscular Volume 105 fL (79-100) Mean Corpuscular Hemoglobin 35 pg (25-35) Mean Corpuscular Hemoglobin Concent 34 g/dL (31-37) Red Cell Distribution Width 15.6 % (11.5-14.5) Platelet Count 140 x10^3/uL (140-400) Neutrophils (%) (Auto) 83 % (31-73) Lymphocytes (%) (Auto) 7 % (24-48) Monocytes (%) (Auto) 8 % (0-9) Eosinophils (%) (Auto) 2 % (0-3) Basophils (%) (Auto) 0 % (0-3) Neutrophils # (Auto) 8.5 x10^3uL (1.8-7.7) Lymphocytes # (Auto) 0.7 x10^3/uL (1.0-4.8) Monocytes # (Auto) 0.8 x10^3/uL (0.0-1.1) Eosinophils # (Auto) 0.2 x10^3/uL (0.0-0.7) Basophils # (Auto) 0.0 x10^3/uL (0.0-0.2) Sodium Level 134 mmol/L (136-145) Potassium Level 3.9 mmol/L (3.5-5.1) Chloride Level 97 mmol/L (98-107) Carbon Dioxide Level 31 mmol/L (21-32) Anion Gap 6 (6-14) Blood Urea Nitrogen 37 mg/dL (7-20) Creatinine 5.2 mg/dL (0.6-1.0) Estimated GFR (Cockcroft-Gault) 7.8 BUN/Creatinine Ratio 7 (6-20) Glucose Level 86 mg/dL (70-99) Calcium Level 8.3 mg/dL (8.5-10.1) Total Bilirubin 1.1 mg/dL (0.2-1.0) Aspartate Amino Transf (AST/SGOT) 30 U/L (15-37) Alanine Aminotransferase (ALT/SGPT) 15 U/L (14-59) Alkaline Phosphatase 176 U/L (46-116) Total Protein 6.0 g/dL (6.4-8.2) Albumin 2.1 g/dL (3.4-5.0) Albumin/Globulin Ratio 0.5 (1.0-1.7) Glucose (Fingerstick) 92 mg/dL (70-99) Laboratory Tests Test 07/19/18 13:11 07/19/18 13:18 07/19/18 16:28 07/19/18 20:54 Influenza Type A Antigen Negative (NEGATIVE) Influenza Type B Antigen Negative (NEGATIVE) White Blood Count 11.3 x10^3/uL (4.0-11.0) Red Blood Count 3.38 x10^6/uL (3.50-5.40) Hemoglobin 11.5 g/dL (12.0-15.5) Hematocrit 35.5 % (36.0-47.0) Mean Corpuscular Volume 105 fL (79-100) Mean Corpuscular Hemoglobin 34 pg (25-35) Mean Corpuscular Hemoglobin Concent 32 g/dL (31-37) Red Cell Distribution Width 15.9 % (11.5-14.5) Platelet Count 146 x10^3/uL (140-400) Neutrophils (%) (Auto) 83 % (31-73) Lymphocytes (%) (Auto) 8 % (24-48) Monocytes (%) (Auto) 7 % (0-9) Eosinophils (%) (Auto) 2 % (0-3) Basophils (%) (Auto) 1 % (0-3) Neutrophils # (Auto) 9.4 x10^3uL (1.8-7.7) Lymphocytes # (Auto) 0.9 x10^3/uL (1.0-4.8) Monocytes # (Auto) 0.8 x10^3/uL (0.0-1.1) Eosinophils # (Auto) 0.2 x10^3/uL (0.0-0.7) Basophils # (Auto) 0.1 x10^3/uL (0.0-0.2) Prothrombin Time 16.5 SEC (11.7-14.0) Prothromb Time International Ratio 1.4 (0.8-1.1) Sodium Level 134 mmol/L (136-145) Potassium Level 3.7 mmol/L (3.5-5.1) Chloride Level 96 mmol/L (98-107) Carbon Dioxide Level 29 mmol/L (21-32) Anion Gap 9 (6-14) Blood Urea Nitrogen 32 mg/dL (7-20) Creatinine 4.7 mg/dL (0.6-1.0) Estimated GFR (Cockcroft-Gault) 10.7 BUN/Creatinine Ratio 7 (6-20) Glucose Level 186 mg/dL (70-99) Calcium Level 8.2 mg/dL (8.5-10.1) Total Bilirubin 1.0 mg/dL (0.2-1.0) Aspartate Amino Transf (AST/SGOT) 36 U/L (15-37) Alanine Aminotransferase (ALT/SGPT) 19 U/L (14-59) Alkaline Phosphatase 202 U/L (46-116) Troponin I Quantitative 0.027 ng/mL (0.000-0.055) SA-Vvf-H-Type Natriuretic Peptide > 50325 pg/mL (0-449) Total Protein 6.2 g/dL (6.4-8.2) Albumin 2.3 g/dL (3.4-5.0) Albumin/Globulin Ratio 0.6 (1.0-1.7) Glucose (Fingerstick) 155 mg/dL (70-99) 105 mg/dL (70-99) Test 07/20/18 04:55 07/20/18 08:14 White Blood Count 10.2 x10^3/uL (4.0-11.0) Red Blood Count 3.10 x10^6/uL (3.50-5.40) Hemoglobin 10.9 g/dL (12.0-15.5) Hematocrit 32.4 % (36.0-47.0) Mean Corpuscular Volume 105 fL (79-100) Mean Corpuscular Hemoglobin 35 pg (25-35) Mean Corpuscular Hemoglobin Concent 34 g/dL (31-37) Red Cell Distribution Width 15.6 % (11.5-14.5) Platelet Count 140 x10^3/uL (140-400) Neutrophils (%) (Auto) 83 % (31-73) Lymphocytes (%) (Auto) 7 % (24-48) Monocytes (%) (Auto) 8 % (0-9) Eosinophils (%) (Auto) 2 % (0-3) Basophils (%) (Auto) 0 % (0-3) Neutrophils # (Auto) 8.5 x10^3uL (1.8-7.7) Lymphocytes # (Auto) 0.7 x10^3/uL (1.0-4.8) Monocytes # (Auto) 0.8 x10^3/uL (0.0-1.1) Eosinophils # (Auto) 0.2 x10^3/uL (0.0-0.7) Basophils # (Auto) 0.0 x10^3/uL (0.0-0.2) Sodium Level 134 mmol/L (136-145) Potassium Level 3.9 mmol/L (3.5-5.1) Chloride Level 97 mmol/L (98-107) Carbon Dioxide Level 31 mmol/L (21-32) Anion Gap 6 (6-14) Blood Urea Nitrogen 37 mg/dL (7-20) Creatinine 5.2 mg/dL (0.6-1.0) Estimated GFR (Cockcroft-Gault) 7.8 BUN/Creatinine Ratio 7 (6-20) Glucose Level 86 mg/dL (70-99) Calcium Level 8.3 mg/dL (8.5-10.1) Total Bilirubin 1.1 mg/dL (0.2-1.0) Aspartate Amino Transf (AST/SGOT) 30 U/L (15-37) Alanine Aminotransferase (ALT/SGPT) 15 U/L (14-59) Alkaline Phosphatase 176 U/L (46-116) Total Protein 6.0 g/dL (6.4-8.2) Albumin 2.1 g/dL (3.4-5.0) Albumin/Globulin Ratio 0.5 (1.0-1.7) Glucose (Fingerstick) 92 mg/dL (70-99) Medications Current Medications Albuterol/ Ipratropium (Duoneb) 3 ml 1X ONCE NEB Last administered on at 12:57; Start 07/19/18 at 12:45; Stop 07/19/18 at 12:46; Status DC Ondansetron HCl (Zofran) 4 mg PRN Q8HRS PRN IV NAUSEA/VOMITING; Start 07/19/18 at 14:30; Stop 07/20/18 at 14:29 Acetaminophen (Tylenol) 650 mg PRN Q4HRS PRN PO FEVER; Start 07/19/18 at 14:30 ; Stop 07/20/18 at 08:37; Status DC Nitroglycerin (Nitrostat) 0.4 mg PRN Q5MIN PRN SL CHEST PAIN; Start 07/19/18 at 14:30; Stop 07/20/18 at 14:29 Albuterol/ Ipratropium (Duoneb) 3 ml RTQID NEB ; Start 07/19/18 at 16:00; Stop 07/20/18 at 15:59; Status Cancel Aspirin (Tracee Aspirin) 325 mg DAILY PO Last administered on 07/19/18at 14:52; Start 07/19/18 at 15:00 Carvedilol (Coreg) 3.125 mg BIDWMEALS PO ; Start 07/19/18 at 17:00; Stop at 19:42; Status DC Cinacalcet (Sensipar) 30 mg DAILY PO Last administered on 07/19/18at 16:52; Start 07/19/18 at 15:00 Diclofenac Sodium (Voltaren) 1 grisel BID TP Last administered on 07/19/18at 22:10 ; Start 07/19/18 at 21:00 Fentanyl (Duragesic 12mcg/ Hr Patch) 1 patch Q3DAYS TD ; Start 07/19/18 at 15:00 ; Stop 07/19/18 at 19:42; Status DC Vitamin B Complex/ Vitamin C (Bela-Roland) 1 tab DAILYBFRSUP PO Last administered on 07/19/18at 16:52; Start 07/19/18 at 17:00 Ondansetron HCl (Zofran Odt) 4 mg PRN Q6HRS PRN PO NAUSEA/VOMITING; Start 07/19 at 14:45 Sevelamer Carbonate (Renvela) 2.4 gm TIDWMEALS PO Last administered on at 16:53; Start 07/19/18 at 17:00 Acetaminophen (Tylenol) 500 mg PRN Q6HRS PRN PO MILD PAIN / TEMP; Start at 14:45 Latanoprost (Xalatan) 1 drop QHS OU Last administered on 07/19/18at 21:54; Start 07/19/18 at 21:00 Calcitriol (Rocaltrol) 0.25 mcg DAILY PO ; Start 07/20/18 at 09:00 Vitamin D (Vitamin D3) 1,000 unit DAILY PO ; Start 07/20/18 at 09:00 Hydromorphone HCl (Dilaudid) 2 mg PRN Q8HRS PRN PO MODERATE PAIN, SEVERE PAIN; Start 07/19/18 at 15:00; Stop 07/20/18 at 09:31; Status DC Insulin Glargine (Lantus) 5 units QHS SQ Last administered on 07/19/18at 21:54; Start 07/19/18 at 21:00 Non-Formulary Medication (Latanoprost/Pf (Latanoprost 0.005% Eye Drop)) 7.5 ml QHS OP ; Start 07/19/18 at 21:00; Status UNV Pantoprazole Sodium (Protonix) 40 mg DAILYAC PO ; Start 07/20/18 at 07:30 Piperacillin Sod/ Tazobactam Sod (Zosyn Per Pharmacy) 1 each PRN DAILY PRN MC SEE COMMENTS; Start 07/19/18 at 14:45 Albuterol/ Ipratropium (Duoneb) 3 ml RTQID NEB Last administered on 07/19/18at 19:54; Start 07/19/18 at 16:00 Guaifenesin (Robitussin Dm) 10 ml QID PO Last administered on 07/19/18at 21:53; Start 07/19/18 at 17:00 Temazepam (Restoril) 7.5 mg PRN QHS PRN PO INSOMNIA; Start 07/19/18 at 14:45 Insulin Human Lispro (HumaLOG) 0-7 UNITS TIDWMEALS SQ Last administered on 07/19at 16:58; Start 07/19/18 at 17:00 Dextrose (Dextrose 50%-Water Syringe) 12.5 gm PRN Q15MIN PRN IV SEE COMMENTS; Start 07/19/18 at 14:45 Piperacillin Sod/ Tazobactam Sod 2.25 gm/Sodium Chloride 50 ml @ 100 mls/hr Q8H IV Last administered on 07/20/18at 08:20; Start 07/19/18 at 16:00 Furosemide (Lasix) 40 mg 1X ONCE IVP Last administered on 07/19/18at 14:52; Start 07/19/18 at 14:45; Stop 07/19/18 at 14:52; Status DC Docusate Sodium (Colace) 100 mg BID PO Last administered on 07/19/18at 21:54; Start 07/19/18 at 21:00 Magnesium Hydroxide (Milk Of Magnesia) 2,400 mg PRN DAILY PRN PO CONSTIPATION; Start 07/19/18 at 19:45 Sodium Monofluorophosphate (Fleet Adult) 133 ml PRN DAILY PRN RC CONSTIPATION; Start 07/19/18 at 19:45 Bisacodyl (Dulcolax Supp) 10 mg PRN DAILY PRN AR CONSTIPATION; Start 07/19/18 at 19:45 Polyethylene Glycol (miraLAX PACKET) 17 gm BID PO Last administered on at 21:54; Start 07/19/18 at 21:00 Sennosides (Senna) 8.6 mg DAILY PO ; Start 07/20/18 at 09:00 Lactobacillus Rhamnosus (Culturelle) 1 cap BID PO ; Start 07/20/18 at 21:00 Methylprednisolone Sodium Succinate (SOLU-Medrol 40MG VIAL) 40 mg Q8HRS IV ; Start 07/20/18 at 14:00 Albumin Human 250 ml @ 62.5 mls/hr PRN Q6HRS PRN IV for MAP < 65; Start at 09:45 Magnesium Sulfate 50 ml @ 25 mls/hr PRN DAILY PRN IV for Mag < 1.7 on am labs; Start 07/20/18 at 09:45 Active Scripts Active Levemir (Insulin Detemir) 100 Unit/1 Ml Vial 5 Unit SQ QHS 30 Days Hold for < 140mg/dL Acetaminophen 500 Mg Tablet 500 Mg PO PRN Q6HRS PRN 30 Days Aspirin 325 Mg Tablet 1 Tab PO DAILY Reported Senna (Sennosides) 8.6 Mg Tablet 8.6 Mg PO DAILY Novolog Flexpen (Insulin Aspart) 100 Unit/1 Ml Insuln.pen 1 Unit SQ TIDAC Miralax (Polyethylene Glycol 3350) 17 Gm Powd.pack 1 Packet PO BID Milk Of Magnesia (Magnesium Hydroxide) 400 Mg/5 Ml Oral.susp 30 Ml PO PRN DAILY Duoneb 0.5-3(2.5) Mg/3 Ml (Albuterol/Ipratropium) 3 Ml Ampul.neb 3 Ml NEB TID Fleet Enema (Na Phos,M-B/Na Phos,Di-Ba) 133 Ml Enema 1 Each RC PRN DAILY PRN Dulcolax (Bisacodyl) 10 Mg Supp.rect 10 Mg RC PRN DAILY PRN Docusate Sodium 100 Mg Capsule 1 Cap PO BID Carvedilol (Carvedilol) 12.5 Mg Tablet 12.5 Mg PO BIDWMEALS Protonix (Pantoprazole Sodium) 20 Mg Tablet.dr 40 Mg PO DAILY Voltaren (Diclofenac Sodium) 100 Gm Gel..gram. 1 Gm TP BID Zofran Odt (Ondansetron) 4 Mg Tab.rapdis 4 Mg PO Q6HRS PRN Sensipar (Cinacalcet Hcl) 30 Mg Tablet 1 Tab PO DAILY Renvela (Sevelamer Carbonate) 2.4 Gm Powd.pack 2.4 Gm PO TIDWMEALS Lumigan (Bimatoprost) 2.5 Ml Drops 1 Drop EACHEYE QHS Calcitriol 0.25 Mcg Capsule 1 Cap PO DAILY Nephro-Roland Tablet (Folic Acid/Vitamin B Comp W-C) 0.8 Mg Tablet 1 Tab PO DAILYBFRSUP Vitamin D (Cholecalciferol (Vitamin D3)) 2,000 Unit Capsule 1 Cap PO DAILY Vitals/I & O Vital Sign - Last 24 Hours 07/19/18 07/19/18 07/19/18 07/19/18 12:34 12:58 13:21 13:42 Temp 97.6 97.6 Pulse 72 64 Resp 26 B/P (MAP) 91/54 (66) 150/58 (88) 132/51 (78) Pulse Ox 87 100 O2 Delivery Room Air Nasal Cannula Nasal Cannula Nasal Cannula O2 Flow Rate 2.0 2.0 2.0 07/19/18 07/19/18 07/19/18 07/19/18 14:42 15:00 15:21 15:30 Temp 97.5 97.5 Pulse 68 65 66 Resp 20 B/P (MAP) 96/45 (62) 130/40 (70) 111/48 (69) Pulse Ox 100 99 O2 Delivery Nasal Cannula Nasal Cannula Nasal Cannula O2 Flow Rate 2.0 2.0 2.0 07/19/18 07/19/18 07/19/18 07/19/18 16:18 19:54 19:55 20:00 Temp 98.1 98.1 Pulse 65 Resp 19 B/P (MAP) Pulse Ox 91 94 98 O2 Delivery Nasal Cannula Nasal Cannula Nasal Cannula Nasal Cannula O2 Flow Rate 2.0 2.0 2.0 2.0 07/19/18 07/19/18 07/19/18 07/20/18 20:45 22:11 23:12 03:00 Temp 98.0 97.7 98.0 97.7 Pulse 65 60 78 Resp 20 22 B/P (MAP) 73/36 (48) 84/40 (55) 133/89 (104) Pulse Ox 99 98 O2 Delivery Nasal Cannula Nasal Cannula O2 Flow Rate 2.0 2.0 07/20/18 07/20/18 07/20/18 07:00 08:00 08:20 Temp 98.1 98.1 Pulse 78 Resp 18 B/P (MAP) 105/75 (85) Pulse Ox 97 94 O2 Delivery Room Air Nasal Cannula Nasal Cannula O2 Flow Rate 2.0 2.0 Intake and Output 07/19/18 07/19/18 07/20/18 15:00 23:00 07:00 Intake Total 200 ml 200 ml Balance 200 ml 200 ml DAY ROSADO MD Jul 20, 2018 10:48
--- NOTE | 2018-07-20 10:50 | RAD ---
Examination: PORTABLE CHEST 1V History: COUGH Comparison/Correlation: 07/19/2018 portable chest x-ray exam Findings: Portable upright frontal view chest was obtained. Sternal wires and mediastinal clips are present. Heart size is borderline to slightly enlarged. No pneumothorax. No infiltrate or pleural effusion. Osteopenia noted. Impression: No acute process. Cardiomegaly. Electronically signed by: Clifford Bey MD (07/20/2018 10:47 AM) [facility]
--- NOTE | 2018-07-20 11:25 | EKG ---
[facility] [address] [place] [address] Test Date: 2018-07-19 Test Time: 12:52:02 Pat Name: JOHNNY BENÍTEZ Department: Room: 200 1 Gender: Female Faculty Administrator: : [id number] Requested By: JULI CHACON Order Number: [id number] Reading MD: Ryan Guerrero MD Measurements Intervals [place] Rate: 73 P: [place]: QRS: -176 QRSD: 118 T: 93 QT: 440 QTc: 488 Interpretive Statements ATRIAL FIBRILLATION * POSSIBLE REVERSAL OF THE ARM LEADS LBBB PRIOR ANTERIOR INFARCT PROBABLE Electronically Signed On 07-21-2018 10:16:56 CDT by Ryan Guerrero MD
[2018-07-20] MEDS: IPRATRPIUM/ALBUTEROL 0.5/2.5MG 3 ML NEBU. NEB SCH ×3 (11:31→19:34)
[2018-07-20] MEDS: POLYETHYLENE GLYCOL 3350 17 GM PACKET. PO SCH ×2 (11:46→21:53)
[2018-07-20] MEDS: PANTOPRAZOLE 40 MG TABLET.DR. PO SCH (11:46)
[2018-07-20] MEDS: SENNOSIDES 8.6 MG TABLET PO SCH (11:47)
[2018-07-20] MEDS: CINACALCET HCL 30 MG TABLET PO SCH (11:48)
[2018-07-20] MEDS: ASPIRIN 325 MG TABLET PO SCH (11:48)
[2018-07-20] MEDS: CHOLECALCIFEROL (VITAMIN D3) 1,000 UNIT TABLET PO SCH (11:48)
[2018-07-20] MEDS: DOCUSATE SODIUM 100 MG CAPSULE. PO SCH ×2 (11:48→21:54)
[2018-07-20] MEDS: CALCITRIOL 0.25 MCG CAPSULE. PO SCH (11:48)
[2018-07-20] MEDS: DICLOFENAC SODIUM 1% TOPICAL GEL 100GM TUBE. TP SCH ×2 (11:53→21:53)
[2018-07-20] MEDS: methylPREDNISolone SOD SUCC PF 40 MG/ML VIAL. IV SCH ×2 (14:25→21:52)
--- NOTE | 2018-07-20 16:18 | PDOC2 ---
CONSULT Date of Consult Date of Consult DATE: 07/20/18 TIME: 16:13 Reason for Consult Reason for Consult: Hypotension and coronary artery disease. Referring Physician Referring Physician: Dr. Escobar Identification/Chief Complaint Chief Complaint Fatigue Source Source: Chart review, Patient History of Present Illness Reason for Visit: The patient is an 87-year-old female who was admitted through the emergency room due to episodes of hypotension and the inability to complete dialysis treatment. The patient has an extensive cardiac history including previous bypass surgery, hypertension and heart failure. An echocardiogram done on she was a mildly decreased ejection fraction 40% with severe tricuspid cuspid regurgitation and pulmonary artery pressure 51 mmHg. Patient continues to have borderline hypotension despite holding medications included factors. She is being evaluated by the renal service for possible hemodialysis. Past Medical History Cardiovascular: CAD, CHF, HTN, MO, Valve insufficiency Pulmonary: Bronchitis, COPD GI: No pertinent hx Heme/Onc: Anemia NOS Rheumatologic: No pertinent hx Infectious disease: No pertinent hx Renal/: Chronic renal insuff, UTI Endocrine: Diabetes, Hyperparathyroidism Past Surgical History Past Surgical History: CABG Family History Family History: Heart Disease, High Cholestrol, Hypertension Social History No ALCOHOL: none Drugs: None Lives: [facility] Current Problem List Problem List Problems Medical Problems: (1) Congestive heart failure Status: Acute Current Medications Current Medications Current Medications Albuterol/ Ipratropium (Duoneb) 3 ml 1X ONCE NEB Last administered on at 12:57; Start 07/19/18 at 12:45; Stop 07/19/18 at 12:46; Status DC Ondansetron HCl (Zofran) 4 mg PRN Q8HRS PRN IV NAUSEA/VOMITING; Start 07/19/18 at 14:30; Stop 07/20/18 at 14:29; Status DC Acetaminophen (Tylenol) 650 mg PRN Q4HRS PRN PO FEVER; Start 07/19/18 at 14:30 ; Stop 07/20/18 at 08:37; Status DC Nitroglycerin (Nitrostat) 0.4 mg PRN Q5MIN PRN SL CHEST PAIN; Start 07/19/18 at 14:30; Stop 07/20/18 at 14:29; Status DC Albuterol/ Ipratropium (Duoneb) 3 ml RTQID NEB ; Start 07/19/18 at 16:00; Stop 07/20/18 at 15:59; Status Cancel Aspirin (Tracee Aspirin) 325 mg DAILY PO Last administered on 07/20/18 11:48; Start 07/19/18 at 15:00 Carvedilol (Coreg) 3.125 mg BIDWMEALS PO ; Start 07/19/18 at 17:00; Stop at 19:42; Status DC Cinacalcet (Sensipar) 30 mg DAILY PO Last administered on 07/20/18 11:48; Start 07/19/18 at 15:00 Diclofenac Sodium (Voltaren) 1 grisel BID TP Last administered on 07/20/18 11:53 ; Start 07/19/18 at 21:00 Fentanyl (Duragesic 12mcg/ Hr Patch) 1 patch Q3DAYS TD ; Start 07/19/18 at 15:00 ; Stop 07/19/18 at 19:42; Status DC Vitamin B Complex/ Vitamin C (Bela-Roland) 1 tab DAILYBFRSUP PO Last administered on 07/19/18 16:52; Start 07/19/18 at 17:00 Ondansetron HCl (Zofran Odt) 4 mg PRN Q6HRS PRN PO NAUSEA/VOMITING; Start 07/19 at 14:45 Sevelamer Carbonate (Renvela) 2.4 gm TIDWMEALS PO Last administered on 11:56; Start 07/19/18 at 17:00 Acetaminophen (Tylenol) 500 mg PRN Q6HRS PRN PO MILD PAIN / TEMP; Start at 14:45 Latanoprost (Xalatan) 1 drop QHS OU Last administered on 07/19/18 21:54; Start 07/19/18 at 21:00 Calcitriol (Rocaltrol) 0.25 mcg DAILY PO Last administered on 07/20/18 11:48; Start 07/20/18 at 09:00 Vitamin D (Vitamin D3) 1,000 unit DAILY PO Last administered on 07/20/18 11:48 ; Start 07/20/18 at 09:00 Hydromorphone HCl (Dilaudid) 2 mg PRN Q8HRS PRN PO MODERATE PAIN, SEVERE PAIN; Start 07/19/18 at 15:00; Stop 07/20/18 at 09:31; Status DC Insulin Glargine (Lantus) 5 units QHS SQ Last administered on 07/19/18at 21:54; Start 07/19/18 at 21:00 Non-Formulary Medication (Latanoprost/Pf (Latanoprost 0.005% Eye Drop)) 7.5 ml QHS OP ; Start 07/19/18 at 21:00; Status UNV Pantoprazole Sodium (Protonix) 40 mg DAILYAC PO Last administered on 07/20/18at 11:46; Start 07/20/18 at 07:30 Piperacillin Sod/ Tazobactam Sod (Zosyn Per Pharmacy) 1 each PRN DAILY PRN MC SEE COMMENTS; Start 07/19/18 at 14:45 Albuterol/ Ipratropium (Duoneb) 3 ml RTQID NEB Last administered on 07/20/18at 15:51; Start 07/19/18 at 16:00 Guaifenesin (Robitussin Dm) 10 ml QID PO Last administered on 07/19/18at 21:53; Start 07/19/18 at 17:00 Temazepam (Restoril) 7.5 mg PRN QHS PRN PO INSOMNIA; Start 07/19/18 at 14:45 Insulin Human Lispro (HumaLOG) 0-7 UNITS TIDWMEALS SQ Last administered on 07/19at 16:58; Start 07/19/18 at 17:00 Dextrose (Dextrose 50%-Water Syringe) 12.5 gm PRN Q15MIN PRN IV SEE COMMENTS; Start 07/19/18 at 14:45 Piperacillin Sod/ Tazobactam Sod 2.25 gm/Sodium Chloride 50 ml @ 100 mls/hr Q8H IV Last administered on 07/20/18at 08:20; Start 07/19/18 at 16:00 Furosemide (Lasix) 40 mg 1X ONCE IVP Last administered on 07/19/18at 14:52; Start 07/19/18 at 14:45; Stop 07/19/18 at 14:52; Status DC Docusate Sodium (Colace) 100 mg BID PO Last administered on 07/20/18at 11:48; Start 07/19/18 at 21:00 Magnesium Hydroxide (Milk Of Magnesia) 2,400 mg PRN DAILY PRN PO CONSTIPATION; Start 07/19/18 at 19:45 Sodium Monofluorophosphate (Fleet Adult) 133 ml PRN DAILY PRN RC CONSTIPATION; Start 07/19/18 at 19:45 Bisacodyl (Dulcolax Supp) 10 mg PRN DAILY PRN MA CONSTIPATION; Start 07/19/18 at 19:45 Polyethylene Glycol (miraLAX PACKET) 17 gm BID PO Last administered on at 11:46; Start 07/19/18 at 21:00 Sennosides (Senna) 8.6 mg DAILY PO Last administered on 07/20/18at 11:47; Start 07/20/18 at 09:00 Lactobacillus Rhamnosus (Culturelle) 1 cap BID PO ; Start 07/20/18 at 21:00 Methylprednisolone Sodium Succinate (SOLU-Medrol 40MG VIAL) 40 mg Q8HRS IV Last administered on 07/20/18at 14:25; Start 07/20/18 at 14:00 Albumin Human 250 ml @ 62.5 mls/hr PRN Q6HRS PRN IV for MAP < 65; Start at 09:45 Magnesium Sulfate 50 ml @ 25 mls/hr PRN DAILY PRN IV for Mag < 1.7 on am labs; Start 07/20/18 at 09:45 Dopamine HCl/ Dextrose 250 ml @ 6.124 mls/ hr CONT PRN IV SEE I/O RECORD Last administered on 07/20/18at 12:51; Start 07/20/18 at 12:00 Active Scripts Active Levemir (Insulin Detemir) 100 Unit/1 Ml Vial 5 Unit SQ QHS 30 Days Hold for < 140mg/dL Acetaminophen 500 Mg Tablet 500 Mg PO PRN Q6HRS PRN 30 Days Aspirin 325 Mg Tablet 1 Tab PO DAILY Reported Senna (Sennosides) 8.6 Mg Tablet 8.6 Mg PO DAILY Novolog Flexpen (Insulin Aspart) 100 Unit/1 Ml Insuln.pen 1 Unit SQ TIDAC Miralax (Polyethylene Glycol 3350) 17 Gm Powd.pack 1 Packet PO BID Milk Of Magnesia (Magnesium Hydroxide) 400 Mg/5 Ml Oral.susp 30 Ml PO PRN DAILY Duoneb 0.5-3(2.5) Mg/3 Ml (Albuterol/Ipratropium) 3 Ml Ampul.neb 3 Ml NEB TID Fleet Enema (Na Phos,M-B/Na Phos,Di-Ba) 133 Ml Enema 1 Each RC PRN DAILY PRN Dulcolax (Bisacodyl) 10 Mg Supp.rect 10 Mg RC PRN DAILY PRN Docusate Sodium 100 Mg Capsule 1 Cap PO BID Carvedilol (Carvedilol) 12.5 Mg Tablet 12.5 Mg PO BIDWMEALS Protonix (Pantoprazole Sodium) 20 Mg Tablet.dr 40 Mg PO DAILY Voltaren (Diclofenac Sodium) 100 Gm Gel..gram. 1 Gm TP BID Zofran Odt (Ondansetron) 4 Mg Tab.rapdis 4 Mg PO Q6HRS PRN Sensipar (Cinacalcet Hcl) 30 Mg Tablet 1 Tab PO DAILY Renvela (Sevelamer Carbonate) 2.4 Gm Powd.pack 2.4 Gm PO TIDWMEALS Lumigan (Bimatoprost) 2.5 Ml Drops 1 Drop EACHEYE QHS Calcitriol 0.25 Mcg Capsule 1 Cap PO DAILY Nephro-Roland Tablet (Folic Acid/Vitamin B Comp W-C) 0.8 Mg Tablet 1 Tab PO DAILYBFRSUP Vitamin D (Cholecalciferol (Vitamin D3)) 2,000 Unit Capsule 1 Cap PO DAILY Allergies Allergies: Coded Allergies: morphine (Verified Adverse Reaction, Intermediate, HALLUCINATIONS, 08/13/16 ) ROS General: YES: Fatigue, Malaise Respiratory: YES: SOB with excertion Physical Exam General: mild distress HEENT: Atraumatic Lungs: Other (mildly decreased breath sounds) Heart: Regular rate Abdomen: Normal bowel sounds Vitals VITALS Vital Signs Date Time Temp Pulse Resp B/P (MAP) Pulse Ox O2 Delivery O2 Flow Rate FiO2 07/20/18 15:52 Nasal Cannula 2.0 07/20/18 14:50 98.1 76 78/46 (57) 97 98.1 07/20/18 11:00 16 Labs Labs Laboratory Tests Test 07/19/18 13:11 07/19/18 13:18 07/19/18 16:00 07/19/18 16:28 Influenza Type A Antigen Negative (NEGATIVE) Influenza Type B Antigen Negative (NEGATIVE) White Blood Count 11.3 x10^3/uL (4.0-11.0) Red Blood Count 3.38 x10^6/uL (3.50-5.40) Hemoglobin 11.5 g/dL (12.0-15.5) Hematocrit 35.5 % (36.0-47.0) Mean Corpuscular Volume 105 fL (79-100) Mean Corpuscular Hemoglobin 34 pg (25-35) Mean Corpuscular Hemoglobin Concent 32 g/dL (31-37) Red Cell Distribution Width 15.9 % (11.5-14.5) Platelet Count 146 x10^3/uL (140-400) Neutrophils (%) (Auto) 83 % (31-73) Lymphocytes (%) (Auto) 8 % (24-48) Monocytes (%) (Auto) 7 % (0-9) Eosinophils (%) (Auto) 2 % (0-3) Basophils (%) (Auto) 1 % (0-3) Neutrophils # (Auto) 9.4 x10^3uL (1.8-7.7) Lymphocytes # (Auto) 0.9 x10^3/uL (1.0-4.8) Monocytes # (Auto) 0.8 x10^3/uL (0.0-1.1) Eosinophils # (Auto) 0.2 x10^3/uL (0.0-0.7) Basophils # (Auto) 0.1 x10^3/uL (0.0-0.2) Prothrombin Time 16.5 SEC (11.7-14.0) Prothromb Time International Ratio 1.4 (0.8-1.1) Sodium Level 134 mmol/L (136-145) Potassium Level 3.7 mmol/L (3.5-5.1) Chloride Level 96 mmol/L (98-107) Carbon Dioxide Level 29 mmol/L (21-32) Anion Gap 9 (6-14) Blood Urea Nitrogen 32 mg/dL (7-20) Creatinine 4.7 mg/dL (0.6-1.0) Estimated GFR (Cockcroft-Gault) 10.7 BUN/Creatinine Ratio 7 (6-20) Glucose Level 186 mg/dL (70-99) Calcium Level 8.2 mg/dL (8.5-10.1) Total Bilirubin 1.0 mg/dL (0.2-1.0) Aspartate Amino Transf (AST/SGOT) 36 U/L (15-37) Alanine Aminotransferase (ALT/SGPT) 19 U/L (14-59) Alkaline Phosphatase 202 U/L (46-116) Troponin I Quantitative 0.027 ng/mL (0.000-0.055) SV-Orx-V-Type Natriuretic Peptide > 93786 pg/mL (0-449) Total Protein 6.2 g/dL (6.4-8.2) Albumin 2.3 g/dL (3.4-5.0) Albumin/Globulin Ratio 0.6 (1.0-1.7) Nasal Screen MRSA (PCR) Negative (Negative) Glucose (Fingerstick) 155 mg/dL (70-99) Test 07/19/18 20:54 07/20/18 04:55 07/20/18 08:14 07/20/18 10:59 Glucose (Fingerstick) 105 mg/dL (70-99) 92 mg/dL (70-99) 108 mg/dL (70-99) White Blood Count 10.2 x10^3/uL (4.0-11.0) Red Blood Count 3.10 x10^6/uL (3.50-5.40) Hemoglobin 10.9 g/dL (12.0-15.5) Hematocrit 32.4 % (36.0-47.0) Mean Corpuscular Volume 105 fL (79-100) Mean Corpuscular Hemoglobin 35 pg (25-35) Mean Corpuscular Hemoglobin Concent 34 g/dL (31-37) Red Cell Distribution Width 15.6 % (11.5-14.5) Platelet Count 140 x10^3/uL (140-400) Neutrophils (%) (Auto) 83 % (31-73) Lymphocytes (%) (Auto) 7 % (24-48) Monocytes (%) (Auto) 8 % (0-9) Eosinophils (%) (Auto) 2 % (0-3) Basophils (%) (Auto) 0 % (0-3) Neutrophils # (Auto) 8.5 x10^3uL (1.8-7.7) Lymphocytes # (Auto) 0.7 x10^3/uL (1.0-4.8) Monocytes # (Auto) 0.8 x10^3/uL (0.0-1.1) Eosinophils # (Auto) 0.2 x10^3/uL (0.0-0.7) Basophils # (Auto) 0.0 x10^3/uL (0.0-0.2) Sodium Level 134 mmol/L (136-145) Potassium Level 3.9 mmol/L (3.5-5.1) Chloride Level 97 mmol/L (98-107) Carbon Dioxide Level 31 mmol/L (21-32) Anion Gap 6 (6-14) Blood Urea Nitrogen 37 mg/dL (7-20) Creatinine 5.2 mg/dL (0.6-1.0) Estimated GFR (Cockcroft-Gault) 7.8 BUN/Creatinine Ratio 7 (6-20) Glucose Level 86 mg/dL (70-99) Calcium Level 8.3 mg/dL (8.5-10.1) Total Bilirubin 1.1 mg/dL (0.2-1.0) Aspartate Amino Transf (AST/SGOT) 30 U/L (15-37) Alanine Aminotransferase (ALT/SGPT) 15 U/L (14-59) Alkaline Phosphatase 176 U/L (46-116) Total Protein 6.0 g/dL (6.4-8.2) Albumin 2.1 g/dL (3.4-5.0) Albumin/Globulin Ratio 0.5 (1.0-1.7) Laboratory Tests Test 07/19/18 16:28 07/19/18 20:54 07/20/18 04:55 07/20/18 08:14 Glucose (Fingerstick) 155 mg/dL (70-99) 105 mg/dL (70-99) 92 mg/dL (70-99) White Blood Count 10.2 x10^3/uL (4.0-11.0) Red Blood Count 3.10 x10^6/uL (3.50-5.40) Hemoglobin 10.9 g/dL (12.0-15.5) Hematocrit 32.4 % (36.0-47.0) Mean Corpuscular Volume 105 fL (79-100) Mean Corpuscular Hemoglobin 35 pg (25-35) Mean Corpuscular Hemoglobin Concent 34 g/dL (31-37) Red Cell Distribution Width 15.6 % (11.5-14.5) Platelet Count 140 x10^3/uL (140-400) Neutrophils (%) (Auto) 83 % (31-73) Lymphocytes (%) (Auto) 7 % (24-48) Monocytes (%) (Auto) 8 % (0-9) Eosinophils (%) (Auto) 2 % (0-3) Basophils (%) (Auto) 0 % (0-3) Neutrophils # (Auto) 8.5 x10^3uL (1.8-7.7) Lymphocytes # (Auto) 0.7 x10^3/uL (1.0-4.8) Monocytes # (Auto) 0.8 x10^3/uL (0.0-1.1) Eosinophils # (Auto) 0.2 x10^3/uL (0.0-0.7) Basophils # (Auto) 0.0 x10^3/uL (0.0-0.2) Sodium Level 134 mmol/L (136-145) Potassium Level 3.9 mmol/L (3.5-5.1) Chloride Level 97 mmol/L (98-107) Carbon Dioxide Level 31 mmol/L (21-32) Anion Gap 6 (6-14) Blood Urea Nitrogen 37 mg/dL (7-20) Creatinine 5.2 mg/dL (0.6-1.0) Estimated GFR (Cockcroft-Gault) 7.8 BUN/Creatinine Ratio 7 (6-20) Glucose Level 86 mg/dL (70-99) Calcium Level 8.3 mg/dL (8.5-10.1) Total Bilirubin 1.1 mg/dL (0.2-1.0) Aspartate Amino Transf (AST/SGOT) 30 U/L (15-37) Alanine Aminotransferase (ALT/SGPT) 15 U/L (14-59) Alkaline Phosphatase 176 U/L (46-116) Total Protein 6.0 g/dL (6.4-8.2) Albumin 2.1 g/dL (3.4-5.0) Albumin/Globulin Ratio 0.5 (1.0-1.7) Test 07/20/18 10:59 Glucose (Fingerstick) 108 mg/dL (70-99) Assessment/Plan Assessment/Plan 1. Hypotension. Patient reports feeling better than yesterday. Recent echo shows an ejection fraction only mildly decreased at 40% but with severe tricuspid regurgitation and a pulmonary artery pressure 51 mmHg. Dialysis has been held due to hypotension. We'll continue to monitor lab. If the patient remains hypotensive we will start low-dose dopamine. 2. History of coronary bypass surgery. Ejection fraction of 40% as above. No chest pain. Continue present treatment. 3. Hypertension. Antihypertensive medications on hold. 4. End-stage renal disease. Hemodialysis as tolerated per the renal service. 5. Diabetes mellitus as per the primary service. Thank you for allowing us to participate in the care of your patient. NYA LAWRENCE MD Jul 20, 2018 16:18
[2018-07-20] MEDS: FOLIC/VIT B COMP W-C (RENAL) TABLET. PO SCH (17:23)
--- NOTE | 2018-07-20 18:04 | NUR ---
Dopamine drip was started at 1251 today, but was stopped around 1445 due to IV leaking, unsure of how much patient actually received due to this. BP still low. New IV access finally achieved by anesthesia at 1614 & Dopamine drip restarted. Will continue to monitor BP.
[2018-07-20] MEDS: INSULIN GLARGINE 300 UNITS/3 ML INSULN.PEN. SQ SCH (21:00)
[2018-07-20] MEDS: LATANOPROST 0.005% OPHTH SOLUTION 2.5ML BOTTLE. OU SCH (21:00)
[2018-07-20] MEDS: TEMAZEPAM 7.5 MG CAPSULE PO PRN (21:52)
[2018-07-20] MEDS: ALBUMIN HUMAN 5% 250 ML IV PRN (21:52)
[2018-07-20] MEDS: LACTOBACILLUS RHAMNOSUS GG 1 CAPSULE. PO SCH (21:53)
[2018-07-21] VITALS (7 sets, daily range): BP systolic 81–104; BP diastolic 33–67
--- NOTE | 2018-07-21 01:37 | RAD ---
AP portable chest radiograph 07/21/2018 Clinical History: PICC line placement. Two AP erect portable digital radiographs of the chest were obtained. Comparison study is dated 07/20/2018. A left arm PICC has been placed. The tip of the catheter overlies the right atrium of heart on the initial chest radiograph. This catheter was repositioned and a second chest radiograph was obtained. The tip of the left arm PICC after repositioning of the catheter overlies SVC/right atrial junction. The patient is post CABG procedure. The cardiac silhouette is mild to moderately enlarged. Atherosclerotic calcification of the thoracic aorta is seen. The thoracic aorta is tortuous. Prominence of pulmonary vasculature is seen consistent with CHF. Left lower lobe atelectasis and or infiltrate is noted. No pneumothorax or pleural effusion is seen. The osseous structures are unchanged. IMPRESSION: The tip of the left arm PICC overlies the SVC/right atrial junction. Electronically signed by: Wes Maddox MD (07/21/2018 1:34 AM) [id number]
[2018-07-21 05:30] LABS: BASO % 0 % (0-3); EOS % 0 % (0-3); HEMATOCRIT 34.6 % (36.0-47.0); HEMOGLOBIN 11.1 g/dL (12.0-15.5); LYMPH # 0.4 x10^3/uL (1.0-4.8); LYMPH % 4 % (24-48); MEAN CORPUSCULAR HEMOGLOBIN 34 pg (25-35); MEAN CORPUSCULAR HGB CONC 32 g/dL (31-37); MEAN CORPUSCULAR VOLUME 105 fL (79-100); MONO # 0.2 x10^3/uL (0.0-1.1); MONO % 2 % (0-9); NEUT # 11.1 x10^3uL (1.8-7.7); NEUT % 94 % (31-73); PLATELET COUNT 163 x10^3/uL (140-400); RED CELL DISTRIBUTION WIDTH 15.7 % (11.5-14.5); WHITE BLOOD COUNT 11.8 x10^3/uL (4.0-11.0)
[2018-07-21 05:47] LABS: ALBUMIN 2.4 g/dL (3.4-5.0); CALCIUM 7.9 mg/dL (8.5-10.1); CREATININE 6.4 mg/dL (0.6-1.0); GFR 6.2; MAGNESIUM 2.8 mg/dL (1.8-2.4); PHOSPHORUS 4.7 mg/dL (2.6-4.7); POTASSIUM 5.1 mmol/L (3.5-5.1)
[2018-07-21] MEDS: methylPREDNISolone SOD SUCC PF 40 MG/ML VIAL. IV SCH ×3 (06:14→19:36)
[2018-07-21] MEDS: IPRATRPIUM/ALBUTEROL 0.5/2.5MG 3 ML NEBU. NEB SCH ×3 (07:25→15:45)
[2018-07-21 07:41] LABS: % LYMPHS 4 % (24-48); % MONOS 2 % (0-10); % SEGS 94 % (35-66)
[2018-07-21 07:42] LABS: ANISOCYTOSIS SLIGHT; PLT ESTIMATE ADEQUATE (ADEQUATE)
[2018-07-21] MEDS: CHOLECALCIFEROL (VITAMIN D3) 1,000 UNIT TABLET PO SCH (08:37)
[2018-07-21] MEDS: ASPIRIN 325 MG TABLET PO SCH (08:37)
[2018-07-21] MEDS: DOCUSATE SODIUM 100 MG CAPSULE. PO SCH ×2 (08:37→19:37)
[2018-07-21] MEDS: SENNOSIDES 8.6 MG TABLET PO SCH (08:37)
[2018-07-21] MEDS: CINACALCET HCL 30 MG TABLET PO SCH (08:37)
[2018-07-21] MEDS: CALCITRIOL 0.25 MCG CAPSULE. PO SCH (08:37)
[2018-07-21] MEDS: FOLIC/VIT B COMP W-C (RENAL) TABLET. PO SCH (08:37)
[2018-07-21] MEDS: POLYETHYLENE GLYCOL 3350 17 GM PACKET. PO SCH ×2 (08:37→19:36)
[2018-07-21] MEDS: LACTOBACILLUS RHAMNOSUS GG 1 CAPSULE. PO SCH ×2 (08:37→19:36)
[2018-07-21] MEDS: PANTOPRAZOLE 40 MG TABLET.DR. PO SCH (08:37)
[2018-07-21] MEDS: guaiFENesin DM 200MG/20MG 10 ML SYRUP PO SCH ×4 (08:37→19:35)
[2018-07-21] MEDS: SEVELAMER CARBONATE 2.4 GM PACKET. PO SCH ×3 (08:37→17:50)
[2018-07-21] MEDS: DICLOFENAC SODIUM 1% TOPICAL GEL 100GM TUBE. TP SCH ×2 (08:38→19:36)
[2018-07-21] MEDS: PIPERACILLIN/TAZOBACTAM 2.25 GM in IV NORMAL SALINE 50ML 50 ML IV SCH ×2 (08:38→17:50)
[2018-07-21] MEDS: INSULIN LISPRO 300 UNITS/3 ML INSULN.PEN. SQ SCH ×3 (08:55→17:58)
--- NOTE | 2018-07-21 09:27 | PDOC ---
PULMONARY PROGRESS NOTES Vitals Vital Signs Date Time Temp Pulse Resp B/P (MAP) Pulse Ox O2 Delivery O2 Flow Rate FiO2 07/21/18 09:18 68 92/41 (58) 07/21/18 07:57 97.9 19 96 Nasal Cannula 3.0 97.9 General: Alert, No acute distress HEENT: Other Lungs: Wheezing Cardiovascular: S1, S2 Abdomen: Soft Extremities: Other Labs Laboratory Tests Test 07/19/18 13:11 07/19/18 13:18 07/19/18 16:00 07/19/18 16:28 Influenza Type A Antigen Negative (NEGATIVE) Influenza Type B Antigen Negative (NEGATIVE) White Blood Count 11.3 x10^3/uL (4.0-11.0) Red Blood Count 3.38 x10^6/uL (3.50-5.40) Hemoglobin 11.5 g/dL (12.0-15.5) Hematocrit 35.5 % (36.0-47.0) Mean Corpuscular Volume 105 fL (79-100) Mean Corpuscular Hemoglobin 34 pg (25-35) Mean Corpuscular Hemoglobin Concent 32 g/dL (31-37) Red Cell Distribution Width 15.9 % (11.5-14.5) Platelet Count 146 x10^3/uL (140-400) Neutrophils (%) (Auto) 83 % (31-73) Lymphocytes (%) (Auto) 8 % (24-48) Monocytes (%) (Auto) 7 % (0-9) Eosinophils (%) (Auto) 2 % (0-3) Basophils (%) (Auto) 1 % (0-3) Neutrophils # (Auto) 9.4 x10^3uL (1.8-7.7) Lymphocytes # (Auto) 0.9 x10^3/uL (1.0-4.8) Monocytes # (Auto) 0.8 x10^3/uL (0.0-1.1) Eosinophils # (Auto) 0.2 x10^3/uL (0.0-0.7) Basophils # (Auto) 0.1 x10^3/uL (0.0-0.2) Prothrombin Time 16.5 SEC (11.7-14.0) Prothromb Time International Ratio 1.4 (0.8-1.1) Sodium Level 134 mmol/L (136-145) Potassium Level 3.7 mmol/L (3.5-5.1) Chloride Level 96 mmol/L (98-107) Carbon Dioxide Level 29 mmol/L (21-32) Anion Gap 9 (6-14) Blood Urea Nitrogen 32 mg/dL (7-20) Creatinine 4.7 mg/dL (0.6-1.0) Estimated GFR (Cockcroft-Gault) 10.7 BUN/Creatinine Ratio 7 (6-20) Glucose Level 186 mg/dL (70-99) Calcium Level 8.2 mg/dL (8.5-10.1) Total Bilirubin 1.0 mg/dL (0.2-1.0) Aspartate Amino Transf (AST/SGOT) 36 U/L (15-37) Alanine Aminotransferase (ALT/SGPT) 19 U/L (14-59) Alkaline Phosphatase 202 U/L (46-116) Troponin I Quantitative 0.027 ng/mL (0.000-0.055) QK-Cys-S-Type Natriuretic Peptide > 46152 pg/mL (0-449) Total Protein 6.2 g/dL (6.4-8.2) Albumin 2.3 g/dL (3.4-5.0) Albumin/Globulin Ratio 0.6 (1.0-1.7) Nasal Screen MRSA (PCR) Negative (Negative) Glucose (Fingerstick) 155 mg/dL (70-99) Test 07/19/18 20:54 07/20/18 04:55 07/20/18 08:14 07/20/18 10:59 Glucose (Fingerstick) 105 mg/dL (70-99) 92 mg/dL (70-99) 108 mg/dL (70-99) White Blood Count 10.2 x10^3/uL (4.0-11.0) Red Blood Count 3.10 x10^6/uL (3.50-5.40) Hemoglobin 10.9 g/dL (12.0-15.5) Hematocrit 32.4 % (36.0-47.0) Mean Corpuscular Volume 105 fL (79-100) Mean Corpuscular Hemoglobin 35 pg (25-35) Mean Corpuscular Hemoglobin Concent 34 g/dL (31-37) Red Cell Distribution Width 15.6 % (11.5-14.5) Platelet Count 140 x10^3/uL (140-400) Neutrophils (%) (Auto) 83 % (31-73) Lymphocytes (%) (Auto) 7 % (24-48) Monocytes (%) (Auto) 8 % (0-9) Eosinophils (%) (Auto) 2 % (0-3) Basophils (%) (Auto) 0 % (0-3) Neutrophils # (Auto) 8.5 x10^3uL (1.8-7.7) Lymphocytes # (Auto) 0.7 x10^3/uL (1.0-4.8) Monocytes # (Auto) 0.8 x10^3/uL (0.0-1.1) Eosinophils # (Auto) 0.2 x10^3/uL (0.0-0.7) Basophils # (Auto) 0.0 x10^3/uL (0.0-0.2) Sodium Level 134 mmol/L (136-145) Potassium Level 3.9 mmol/L (3.5-5.1) Chloride Level 97 mmol/L (98-107) Carbon Dioxide Level 31 mmol/L (21-32) Anion Gap 6 (6-14) Blood Urea Nitrogen 37 mg/dL (7-20) Creatinine 5.2 mg/dL (0.6-1.0) Estimated GFR (Cockcroft-Gault) 7.8 BUN/Creatinine Ratio 7 (6-20) Glucose Level 86 mg/dL (70-99) Calcium Level 8.3 mg/dL (8.5-10.1) Total Bilirubin 1.1 mg/dL (0.2-1.0) Aspartate Amino Transf (AST/SGOT) 30 U/L (15-37) Alanine Aminotransferase (ALT/SGPT) 15 U/L (14-59) Alkaline Phosphatase 176 U/L (46-116) Total Protein 6.0 g/dL (6.4-8.2) Albumin 2.1 g/dL (3.4-5.0) Albumin/Globulin Ratio 0.5 (1.0-1.7) Test 07/20/18 16:54 07/20/18 20:48 07/21/18 04:25 07/21/18 07:25 Glucose (Fingerstick) 140 mg/dL (70-99) 208 mg/dL (70-99) 293 mg/dL (70-99) White Blood Count 11.8 x10^3/uL (4.0-11.0) Red Blood Count 3.30 x10^6/uL (3.50-5.40) Hemoglobin 11.1 g/dL (12.0-15.5) Hematocrit 34.6 % (36.0-47.0) Mean Corpuscular Volume 105 fL (79-100) Mean Corpuscular Hemoglobin 34 pg (25-35) Mean Corpuscular Hemoglobin Concent 32 g/dL (31-37) Red Cell Distribution Width 15.7 % (11.5-14.5) Platelet Count 163 x10^3/uL (140-400) Neutrophils (%) (Auto) 94 % (31-73) Lymphocytes (%) (Auto) 4 % (24-48) Monocytes (%) (Auto) 2 % (0-9) Eosinophils (%) (Auto) 0 % (0-3) Basophils (%) (Auto) 0 % (0-3) Neutrophils # (Auto) 11.1 x10^3uL (1.8-7.7) Lymphocytes # (Auto) 0.4 x10^3/uL (1.0-4.8) Monocytes # (Auto) 0.2 x10^3/uL (0.0-1.1) Eosinophils # (Auto) 0.0 x10^3/uL (0.0-0.7) Basophils # (Auto) 0.0 x10^3/uL (0.0-0.2) Segmented Neutrophils % 94 % (35-66) Lymphocytes % 4 % (24-48) Monocytes % 2 % (0-10) Platelet Estimate Adequate (ADEQUATE) Anisocytosis Slight Sodium Level 132 mmol/L (136-145) Potassium Level 5.1 mmol/L (3.5-5.1) Chloride Level 93 mmol/L (98-107) Carbon Dioxide Level 25 mmol/L (21-32) Anion Gap 14 (6-14) Blood Urea Nitrogen 53 mg/dL (7-20) Creatinine 6.4 mg/dL (0.6-1.0) Estimated GFR (Cockcroft-Gault) 6.2 Glucose Level 319 mg/dL (70-99) Calcium Level 7.9 mg/dL (8.5-10.1) Phosphorus Level 4.7 mg/dL (2.6-4.7) Magnesium Level 2.8 mg/dL (1.8-2.4) Albumin 2.4 g/dL (3.4-5.0) Laboratory Tests Test 07/20/18 10:59 07/20/18 16:54 07/20/18 20:48 07/21/18 04:25 Glucose (Fingerstick) 108 mg/dL (70-99) 140 mg/dL (70-99) 208 mg/dL (70-99) White Blood Count 11.8 x10^3/uL (4.0-11.0) Red Blood Count 3.30 x10^6/uL (3.50-5.40) Hemoglobin 11.1 g/dL (12.0-15.5) Hematocrit 34.6 % (36.0-47.0) Mean Corpuscular Volume 105 fL (79-100) Mean Corpuscular Hemoglobin 34 pg (25-35) Mean Corpuscular Hemoglobin Concent 32 g/dL (31-37) Red Cell Distribution Width 15.7 % (11.5-14.5) Platelet Count 163 x10^3/uL (140-400) Neutrophils (%) (Auto) 94 % (31-73) Lymphocytes (%) (Auto) 4 % (24-48) Monocytes (%) (Auto) 2 % (0-9) Eosinophils (%) (Auto) 0 % (0-3) Basophils (%) (Auto) 0 % (0-3) Neutrophils # (Auto) 11.1 x10^3uL (1.8-7.7) Lymphocytes # (Auto) 0.4 x10^3/uL (1.0-4.8) Monocytes # (Auto) 0.2 x10^3/uL (0.0-1.1) Eosinophils # (Auto) 0.0 x10^3/uL (0.0-0.7) Basophils # (Auto) 0.0 x10^3/uL (0.0-0.2) Segmented Neutrophils % 94 % (35-66) Lymphocytes % 4 % (24-48) Monocytes % 2 % (0-10) Platelet Estimate Adequate (ADEQUATE) Anisocytosis Slight Sodium Level 132 mmol/L (136-145) Potassium Level 5.1 mmol/L (3.5-5.1) Chloride Level 93 mmol/L (98-107) Carbon Dioxide Level 25 mmol/L (21-32) Anion Gap 14 (6-14) Blood Urea Nitrogen 53 mg/dL (7-20) Creatinine 6.4 mg/dL (0.6-1.0) Estimated GFR (Cockcroft-Gault) 6.2 Glucose Level 319 mg/dL (70-99) Calcium Level 7.9 mg/dL (8.5-10.1) Phosphorus Level 4.7 mg/dL (2.6-4.7) Magnesium Level 2.8 mg/dL (1.8-2.4) Albumin 2.4 g/dL (3.4-5.0) Test 07/21/18 07:25 Glucose (Fingerstick) 293 mg/dL (70-99) Medications Active Scripts Medications Dose Route/Sig Max Daily Dose Days Date Category Dose Instructions Senna (Sennosides) 8.6 Mg Tablet 8.6 Mg PO DAILY 07/19/18 Reported Novolog Flexpen (Insulin Aspart) 100 Unit/1 Ml Insuln.pen 1 Unit SQ TIDAC 07/19/18 Reported Miralax (Polyethylene Glycol 3350) 17 Gm Powd.pack 1 Packet PO BID 07/19/18 Reported Milk Of Magnesia (Magnesium Hydroxide) 400 Mg/5 Ml Oral.susp 30 Ml PO PRN DAILY 07/19/18 Reported Duoneb 0.5-3(2.5) Mg/3 Ml (Albuterol/Ipratropium) 3 Ml Ampul.neb 3 Ml NEB TID 07/19/18 Reported Fleet Enema (Na Phos,M-B/Na Phos,Di-Ba) 133 Ml Enema 1 Each RC PRN DAILY PRN 07/19/18 Reported Dulcolax (Bisacodyl) 10 Mg Supp.rect 10 Mg RC PRN DAILY PRN 07/19/18 Reported Docusate Sodium 100 Mg Capsule 1 Cap PO BID 07/19/18 Reported Carvedilol (Carvedilol) 12.5 Mg Tablet 12.5 Mg PO BIDWMEALS 07/19/18 Reported Levemir (Insulin Detemir) 100 Unit/1 Ml Vial 5 Unit SQ QHS 30 07/15/18 Rx Hold for < 140mg/dL Acetaminophen 500 Mg Tablet 500 Mg PO PRN Q6HRS PRN 30 07/14/18 Rx Aspirin 325 Mg Tablet 1 Tab PO DAILY 04/16/18 Rx Protonix (Pantoprazole Sodium) 20 Mg Tablet.dr 40 Mg PO DAILY 11/06/17 Reported Voltaren (Diclofenac Sodium) 100 Gm Gel..gram. 1 Gm TP BID 11/06/17 Reported Zofran Odt (Ondansetron) 4 Mg Tab.rapdis 4 Mg PO Q6HRS PRN 10/30/17 Reported Sensipar (Cinacalcet Hcl) 30 Mg Tablet 1 Tab PO DAILY 02/04/17 Reported Renvela (Sevelamer Carbonate) 2.4 Gm Powd.pack 2.4 Gm PO TIDWMEALS 02/04/17 Reported Lumigan (Bimatoprost) 2.5 Ml Drops 1 Drop EACHEYE QHS 02/04/17 Reported Calcitriol 0.25 Mcg Capsule 1 Cap PO DAILY 01/18/17 Reported Nephro-Roland Tablet (Folic Acid/Vitamin B Comp W-C) 0.8 Mg Tablet 1 Tab PO DAILYBFRSUP 11/26/15 Reported Vitamin D (Cholecalciferol (Vitamin D3)) 2,000 Unit Capsule 1 Cap PO DAILY 11/26/15 Reported JULIANE MILLER MD Jul 21, 2018 09:27
--- NOTE | 2018-07-21 10:43 | NUR ---
SS following for discharge planning. SS reviewed pt chart. Pt is from [facility] and has an apartment in there assisted living. SS contacted [facility], ; fax [phone], and was notified that pt has been a skilled rehabilitation resident and will need to return to skilled at discharge. PT/OT ordered. SS will await PT/OT evaluations and will phone and fax referral to [facility] once received. Pt has [employer] and will need insurance authorization to return to skilled.
--- NOTE | 2018-07-21 12:24 | PDOC ---
Renal-Progress Notes Subjective Notes Notes TIRED History of Present Illness Hx of present illness STABLE Vitals Vitals Vital Signs Date Time Temp Pulse Resp B/P (MAP) Pulse Ox O2 Delivery O2 Flow Rate FiO2 07/21/18 11:22 98 Nasal Cannula 2.0 07/21/18 11:00 97.6 68 18 95/40 (58) 97.6 Weight Weight [ ] I.O. Intake and Output Intake and Output 07/21/18 06:59 Intake Total 100 ml Output Total 0 ml Balance 100 ml Intake Oral 100 ml Output Urine Total 0 ml # Bowel Movements 1 Labs Labs Laboratory Tests Test 07/20/18 16:54 07/20/18 20:48 07/21/18 04:25 07/21/18 07:25 Glucose (Fingerstick) 140 mg/dL (70-99) 208 mg/dL (70-99) 293 mg/dL (70-99) White Blood Count 11.8 x10^3/uL (4.0-11.0) Red Blood Count 3.30 x10^6/uL (3.50-5.40) Hemoglobin 11.1 g/dL (12.0-15.5) Hematocrit 34.6 % (36.0-47.0) Mean Corpuscular Volume 105 fL (79-100) Mean Corpuscular Hemoglobin 34 pg (25-35) Mean Corpuscular Hemoglobin Concent 32 g/dL (31-37) Red Cell Distribution Width 15.7 % (11.5-14.5) Platelet Count 163 x10^3/uL (140-400) Neutrophils (%) (Auto) 94 % (31-73) Lymphocytes (%) (Auto) 4 % (24-48) Monocytes (%) (Auto) 2 % (0-9) Eosinophils (%) (Auto) 0 % (0-3) Basophils (%) (Auto) 0 % (0-3) Neutrophils # (Auto) 11.1 x10^3uL (1.8-7.7) Lymphocytes # (Auto) 0.4 x10^3/uL (1.0-4.8) Monocytes # (Auto) 0.2 x10^3/uL (0.0-1.1) Eosinophils # (Auto) 0.0 x10^3/uL (0.0-0.7) Basophils # (Auto) 0.0 x10^3/uL (0.0-0.2) Segmented Neutrophils % 94 % (35-66) Lymphocytes % 4 % (24-48) Monocytes % 2 % (0-10) Platelet Estimate Adequate (ADEQUATE) Anisocytosis Slight Sodium Level 132 mmol/L (136-145) Potassium Level 5.1 mmol/L (3.5-5.1) Chloride Level 93 mmol/L (98-107) Carbon Dioxide Level 25 mmol/L (21-32) Anion Gap 14 (6-14) Blood Urea Nitrogen 53 mg/dL (7-20) Creatinine 6.4 mg/dL (0.6-1.0) Estimated GFR (Cockcroft-Gault) 6.2 Glucose Level 319 mg/dL (70-99) Calcium Level 7.9 mg/dL (8.5-10.1) Phosphorus Level 4.7 mg/dL (2.6-4.7) Magnesium Level 2.8 mg/dL (1.8-2.4) Albumin 2.4 g/dL (3.4-5.0) Test 07/21/18 11:41 Glucose (Fingerstick) 285 mg/dL (70-99) Review of Systems Constitutional: yes: weakness, alert Ears/Nose/Throat: Yes: dysphagia Cardiovascular: Yes no symptom reported Gastrointestional: Yes: constipation Genitourinary: Yes: no symptom reported Musculoskeletal: Yes: muscle stiffness Skin: Yes no symptom reported Psychiatric/Neurological: Yes: no symptom reported Endocrine: Yes: no symptom reported Physical Exam General Appearance: no apparent distress Skin: warm Respiratory: decreased breath sounds Heart: S1S2, RRR Abdomen: soft Genitourinary: bladder flat, no mass Extremities: pulses present, no edema, atrophy Neurology: alert, oriented Assessment Assessment IMP MILD HYPERVOLEMIA ESRD-TTS ANEMIA HYPOTENSION-RESOLVED DECONDITIONING DM II PLAN HD TODAY UF TO DW [facility] WHEN NEEDED WILL FOLLOW NANCY CALERO MD Jul 21, 2018 12:24
[2018-07-21] MEDS ORDERED: IV NORMAL SALINE 1000ML BAG 1,000 ML IV PRN ×2 (13:00)
--- NOTE | 2018-07-21 13:27 | PDOC ---
CARDIO Progress Notes Date and Time Date of Service 07/21/18 Time of Evaluation 1140 Subjective Subjective: No Chest Pain, No shortness of breath Vitals Vitals Vital Signs Date Time Temp Pulse Resp B/P (MAP) Pulse Ox O2 Delivery O2 Flow Rate FiO2 07/21/18 11:22 98 Nasal Cannula 2.0 07/21/18 11:00 97.6 68 18 95/40 (58) 97.6 Weight Weight [ ] Input and Output Intake and Output Intake and Output 07/21/18 07:00 Intake Total 100 ml Output Total 0 ml Balance 100 ml Intake Oral 100 ml Output Urine Total 0 ml # Bowel Movements 1 Laboratory Labs Laboratory Tests Test 07/20/18 16:54 07/20/18 20:48 07/21/18 04:25 07/21/18 07:25 Glucose (Fingerstick) 140 mg/dL (70-99) 208 mg/dL (70-99) 293 mg/dL (70-99) White Blood Count 11.8 x10^3/uL (4.0-11.0) Red Blood Count 3.30 x10^6/uL (3.50-5.40) Hemoglobin 11.1 g/dL (12.0-15.5) Hematocrit 34.6 % (36.0-47.0) Mean Corpuscular Volume 105 fL (79-100) Mean Corpuscular Hemoglobin 34 pg (25-35) Mean Corpuscular Hemoglobin Concent 32 g/dL (31-37) Red Cell Distribution Width 15.7 % (11.5-14.5) Platelet Count 163 x10^3/uL (140-400) Neutrophils (%) (Auto) 94 % (31-73) Lymphocytes (%) (Auto) 4 % (24-48) Monocytes (%) (Auto) 2 % (0-9) Eosinophils (%) (Auto) 0 % (0-3) Basophils (%) (Auto) 0 % (0-3) Neutrophils # (Auto) 11.1 x10^3uL (1.8-7.7) Lymphocytes # (Auto) 0.4 x10^3/uL (1.0-4.8) Monocytes # (Auto) 0.2 x10^3/uL (0.0-1.1) Eosinophils # (Auto) 0.0 x10^3/uL (0.0-0.7) Basophils # (Auto) 0.0 x10^3/uL (0.0-0.2) Segmented Neutrophils % 94 % (35-66) Lymphocytes % 4 % (24-48) Monocytes % 2 % (0-10) Platelet Estimate Adequate (ADEQUATE) Anisocytosis Slight Sodium Level 132 mmol/L (136-145) Potassium Level 5.1 mmol/L (3.5-5.1) Chloride Level 93 mmol/L (98-107) Carbon Dioxide Level 25 mmol/L (21-32) Anion Gap 14 (6-14) Blood Urea Nitrogen 53 mg/dL (7-20) Creatinine 6.4 mg/dL (0.6-1.0) Estimated GFR (Cockcroft-Gault) 6.2 Glucose Level 319 mg/dL (70-99) Calcium Level 7.9 mg/dL (8.5-10.1) Phosphorus Level 4.7 mg/dL (2.6-4.7) Magnesium Level 2.8 mg/dL (1.8-2.4) Albumin 2.4 g/dL (3.4-5.0) Test 07/21/18 11:41 Glucose (Fingerstick) 285 mg/dL (70-99) Review of Systems Constitutional: yes: weakness, alert Ears/Nose/Throat: Yes: dysphagia Cardiovascular: Yes no symptom reported Gastrointestional: Yes: constipation Genitourinary: Yes: no symptom reported Musculoskeletal: Yes: muscle stiffness Skin: Yes no symptom reported Psychiatric/Neurological: Yes: no symptom reported Endocrine: Yes: no symptom reported Physical Exam HEENT: Neck Supple W Full Motion Chest: Symmetric Heart: S1S2, irregularly irregular Neurology: alert, oriented Assessment Assessment 1. Hypotension. BP remains marginal. Received albumin in HD. Remains on dopamine. Recent echo with LVEF 40% with severe TR. 2. H/o CAD s/p CABG CABG. Ejection fraction of 40% as above. CP free 3. Hypertension; with present hypotension as noted above 4. ESRD on HD 5. Chronic diastolic HF; appears compensated 6. Probable PNA 7. DM, II; uncontrolled. as per PCP 8. Persistent AFIB; rate controlled without therapy. ASA for stroke prophylaxis. Poor candidate for OAC DOMINIC AMARO APRN Jul 21, 2018 13:27
[2018-07-21] MEDS ORDERED: DIALYSIS PATIENT. MC PRN ×2 (13:30)
[2018-07-21] MEDS ORDERED: ALBUMIN HUMAN 25% 100 ML IV ONE (13:30)
--- NOTE | 2018-07-21 13:54 | PDOC ---
PROGRESS NOTES Chief Complaint Chief Complaint 87-year-old female //admitted from 07/10 thru 07/15, discharge 4 days [employer] to [facility] , [facility] resident, Did not finish dialysis because could not feel a bruit? hypotension but now blood pressure 90'Ss somewhat symptomatic with lethargy History of Present Illness History of Present Illness Assessment/Plan Assessment/Plan SOA, fluid overload-cannot rule out HCAP ESRD on dialysis-did not finish dialysis Existing AV fistula with good bruit Hypotension, resolved now hypertension Anemia of chronic disease Generalized weakness SNU resident Diabetes type 2 on low-dose insulin symptomatic with lethargy hypotension CXR 07/21 The patient is post CABG procedure. The cardiac silhouette is mild to moderately enlarged. Atherosclerotic calcification of the thoracic aorta is seen. The thoracic aorta is tortuous. Prominence of pulmonary vasculature is seen consistent with CHF. Left lower lobe atelectasis and or infiltrate is noted. No pneumothorax or pleural effusion is seen. The osseous structures are unchanged.? ASPIRATION SILENT PLAN: DOPAMINE DRIP BP SUPPORT ID CONSULT VIRAL RESP PANEL RSV DIALYSIS- PT OT Sliding-scale insulin moderate dose Renal diet Renal consult Zosyn per pharmacy Follow cultures FREQUENT LABS Back to [facility] on d/c Small IV 5% albumin boluses can be administered if maps dropped below 65 Full code SWALLOW EVAL PASSED 43 min visit time, pt exam chart review > 50% time with exam, chart review pt care coordination, GUARDED PROGNOSIS PER MY CHART REVIEW Vitals Vitals Vital Signs Date Time Temp Pulse Resp B/P (MAP) Pulse Ox O2 Delivery O2 Flow Rate FiO2 07/21/18 11:22 98 Nasal Cannula 2.0 07/21/18 11:00 97.6 68 18 95/40 (58) 97.6 Physical Exam Physical Exam Abdomen: Normal bowel sounds, Soft, No tenderness, No hepatosplenomegaly, No masses Rectal Exam: not examined Extremities: No clubbing, No cyanosis, No edema, Normal pulses, No tenderness/ swelling Skin: No rashes, No breakdown, No significant lesion Neuro: Normal speech, Strength at 5/5 X4 ext, Normal tone, Sensation intact, Cranial nerves 3-12 NL,GROSSLY Psych/Mental Status: Mental status NL, Mood NL General: Alert, Oriented X3, Cooperative, mild distress Heart: Regular rate Lungs: Wheezing, Crackles Abdomen: Normal bowel sounds Extremities: No clubbing, No cyanosis, No edema, Normal pulses, No tenderness/ swelling Skin: No rashes, No breakdown, No significant lesion Labs LABS Laboratory Tests Test 07/20/18 16:54 07/20/18 20:48 07/21/18 04:25 07/21/18 07:25 Glucose (Fingerstick) 140 mg/dL (70-99) 208 mg/dL (70-99) 293 mg/dL (70-99) White Blood Count 11.8 x10^3/uL (4.0-11.0) Red Blood Count 3.30 x10^6/uL (3.50-5.40) Hemoglobin 11.1 g/dL (12.0-15.5) Hematocrit 34.6 % (36.0-47.0) Mean Corpuscular Volume 105 fL (79-100) Mean Corpuscular Hemoglobin 34 pg (25-35) Mean Corpuscular Hemoglobin Concent 32 g/dL (31-37) Red Cell Distribution Width 15.7 % (11.5-14.5) Platelet Count 163 x10^3/uL (140-400) Neutrophils (%) (Auto) 94 % (31-73) Lymphocytes (%) (Auto) 4 % (24-48) Monocytes (%) (Auto) 2 % (0-9) Eosinophils (%) (Auto) 0 % (0-3) Basophils (%) (Auto) 0 % (0-3) Neutrophils # (Auto) 11.1 x10^3uL (1.8-7.7) Lymphocytes # (Auto) 0.4 x10^3/uL (1.0-4.8) Monocytes # (Auto) 0.2 x10^3/uL (0.0-1.1) Eosinophils # (Auto) 0.0 x10^3/uL (0.0-0.7) Basophils # (Auto) 0.0 x10^3/uL (0.0-0.2) Segmented Neutrophils % 94 % (35-66) Lymphocytes % 4 % (24-48) Monocytes % 2 % (0-10) Platelet Estimate Adequate (ADEQUATE) Anisocytosis Slight Sodium Level 132 mmol/L (136-145) Potassium Level 5.1 mmol/L (3.5-5.1) Chloride Level 93 mmol/L (98-107) Carbon Dioxide Level 25 mmol/L (21-32) Anion Gap 14 (6-14) Blood Urea Nitrogen 53 mg/dL (7-20) Creatinine 6.4 mg/dL (0.6-1.0) Estimated GFR (Cockcroft-Gault) 6.2 Glucose Level 319 mg/dL (70-99) Calcium Level 7.9 mg/dL (8.5-10.1) Phosphorus Level 4.7 mg/dL (2.6-4.7) Magnesium Level 2.8 mg/dL (1.8-2.4) Albumin 2.4 g/dL (3.4-5.0) Test 07/21/18 11:41 Glucose (Fingerstick) 285 mg/dL (70-99) Assessment and Plan Assessmemt and Plan Problems Medical Problems: (1) Congestive heart failure Status: Acute Comment Review of Relevant I have reviewed the following items smith (where applicable) has been applied. Labs Laboratory Tests Test 07/19/18 16:00 07/19/18 16:28 07/19/18 20:54 07/20/18 04:55 Nasal Screen MRSA (PCR) Negative (Negative) Glucose (Fingerstick) 155 mg/dL (70-99) 105 mg/dL (70-99) White Blood Count 10.2 x10^3/uL (4.0-11.0) Red Blood Count 3.10 x10^6/uL (3.50-5.40) Hemoglobin 10.9 g/dL (12.0-15.5) Hematocrit 32.4 % (36.0-47.0) Mean Corpuscular Volume 105 fL (79-100) Mean Corpuscular Hemoglobin 35 pg (25-35) Mean Corpuscular Hemoglobin Concent 34 g/dL (31-37) Red Cell Distribution Width 15.6 % (11.5-14.5) Platelet Count 140 x10^3/uL (140-400) Neutrophils (%) (Auto) 83 % (31-73) Lymphocytes (%) (Auto) 7 % (24-48) Monocytes (%) (Auto) 8 % (0-9) Eosinophils (%) (Auto) 2 % (0-3) Basophils (%) (Auto) 0 % (0-3) Neutrophils # (Auto) 8.5 x10^3uL (1.8-7.7) Lymphocytes # (Auto) 0.7 x10^3/uL (1.0-4.8) Monocytes # (Auto) 0.8 x10^3/uL (0.0-1.1) Eosinophils # (Auto) 0.2 x10^3/uL (0.0-0.7) Basophils # (Auto) 0.0 x10^3/uL (0.0-0.2) Sodium Level 134 mmol/L (136-145) Potassium Level 3.9 mmol/L (3.5-5.1) Chloride Level 97 mmol/L (98-107) Carbon Dioxide Level 31 mmol/L (21-32) Anion Gap 6 (6-14) Blood Urea Nitrogen 37 mg/dL (7-20) Creatinine 5.2 mg/dL (0.6-1.0) Estimated GFR (Cockcroft-Gault) 7.8 BUN/Creatinine Ratio 7 (6-20) Glucose Level 86 mg/dL (70-99) Calcium Level 8.3 mg/dL (8.5-10.1) Total Bilirubin 1.1 mg/dL (0.2-1.0) Aspartate Amino Transf (AST/SGOT) 30 U/L (15-37) Alanine Aminotransferase (ALT/SGPT) 15 U/L (14-59) Alkaline Phosphatase 176 U/L (46-116) Total Protein 6.0 g/dL (6.4-8.2) Albumin 2.1 g/dL (3.4-5.0) Albumin/Globulin Ratio 0.5 (1.0-1.7) Test 07/20/18 08:14 07/20/18 10:59 07/20/18 16:54 07/20/18 20:48 Glucose (Fingerstick) 92 mg/dL (70-99) 108 mg/dL (70-99) 140 mg/dL (70-99) 208 mg/dL (70-99) Test 07/21/18 04:25 07/21/18 07:25 07/21/18 11:41 White Blood Count 11.8 x10^3/uL (4.0-11.0) Red Blood Count 3.30 x10^6/uL (3.50-5.40) Hemoglobin 11.1 g/dL (12.0-15.5) Hematocrit 34.6 % (36.0-47.0) Mean Corpuscular Volume 105 fL (79-100) Mean Corpuscular Hemoglobin 34 pg (25-35) Mean Corpuscular Hemoglobin Concent 32 g/dL (31-37) Red Cell Distribution Width 15.7 % (11.5-14.5) Platelet Count 163 x10^3/uL (140-400) Neutrophils (%) (Auto) 94 % (31-73) Lymphocytes (%) (Auto) 4 % (24-48) Monocytes (%) (Auto) 2 % (0-9) Eosinophils (%) (Auto) 0 % (0-3) Basophils (%) (Auto) 0 % (0-3) Neutrophils # (Auto) 11.1 x10^3uL (1.8-7.7) Lymphocytes # (Auto) 0.4 x10^3/uL (1.0-4.8) Monocytes # (Auto) 0.2 x10^3/uL (0.0-1.1) Eosinophils # (Auto) 0.0 x10^3/uL (0.0-0.7) Basophils # (Auto) 0.0 x10^3/uL (0.0-0.2) Segmented Neutrophils % 94 % (35-66) Lymphocytes % 4 % (24-48) Monocytes % 2 % (0-10) Platelet Estimate Adequate (ADEQUATE) Anisocytosis Slight Sodium Level 132 mmol/L (136-145) Potassium Level 5.1 mmol/L (3.5-5.1) Chloride Level 93 mmol/L (98-107) Carbon Dioxide Level 25 mmol/L (21-32) Anion Gap 14 (6-14) Blood Urea Nitrogen 53 mg/dL (7-20) Creatinine 6.4 mg/dL (0.6-1.0) Estimated GFR (Cockcroft-Gault) 6.2 Glucose Level 319 mg/dL (70-99) Calcium Level 7.9 mg/dL (8.5-10.1) Phosphorus Level 4.7 mg/dL (2.6-4.7) Magnesium Level 2.8 mg/dL (1.8-2.4) Albumin 2.4 g/dL (3.4-5.0) Glucose (Fingerstick) 293 mg/dL (70-99) 285 mg/dL (70-99) Laboratory Tests Test 07/20/18 16:54 07/20/18 20:48 07/21/18 04:25 07/21/18 07:25 Glucose (Fingerstick) 140 mg/dL (70-99) 208 mg/dL (70-99) 293 mg/dL (70-99) White Blood Count 11.8 x10^3/uL (4.0-11.0) Red Blood Count 3.30 x10^6/uL (3.50-5.40) Hemoglobin 11.1 g/dL (12.0-15.5) Hematocrit 34.6 % (36.0-47.0) Mean Corpuscular Volume 105 fL (79-100) Mean Corpuscular Hemoglobin 34 pg (25-35) Mean Corpuscular Hemoglobin Concent 32 g/dL (31-37) Red Cell Distribution Width 15.7 % (11.5-14.5) Platelet Count 163 x10^3/uL (140-400) Neutrophils (%) (Auto) 94 % (31-73) Lymphocytes (%) (Auto) 4 % (24-48) Monocytes (%) (Auto) 2 % (0-9) Eosinophils (%) (Auto) 0 % (0-3) Basophils (%) (Auto) 0 % (0-3) Neutrophils # (Auto) 11.1 x10^3uL (1.8-7.7) Lymphocytes # (Auto) 0.4 x10^3/uL (1.0-4.8) Monocytes # (Auto) 0.2 x10^3/uL (0.0-1.1) Eosinophils # (Auto) 0.0 x10^3/uL (0.0-0.7) Basophils # (Auto) 0.0 x10^3/uL (0.0-0.2) Segmented Neutrophils % 94 % (35-66) Lymphocytes % 4 % (24-48) Monocytes % 2 % (0-10) Platelet Estimate Adequate (ADEQUATE) Anisocytosis Slight Sodium Level 132 mmol/L (136-145) Potassium Level 5.1 mmol/L (3.5-5.1) Chloride Level 93 mmol/L (98-107) Carbon Dioxide Level 25 mmol/L (21-32) Anion Gap 14 (6-14) Blood Urea Nitrogen 53 mg/dL (7-20) Creatinine 6.4 mg/dL (0.6-1.0) Estimated GFR (Cockcroft-Gault) 6.2 Glucose Level 319 mg/dL (70-99) Calcium Level 7.9 mg/dL (8.5-10.1) Phosphorus Level 4.7 mg/dL (2.6-4.7) Magnesium Level 2.8 mg/dL (1.8-2.4) Albumin 2.4 g/dL (3.4-5.0) Test 07/21/18 11:41 Glucose (Fingerstick) 285 mg/dL (70-99) Medications Current Medications Albuterol/ Ipratropium (Duoneb) 3 ml 1X ONCE NEB Last administered on at 12:57; Start 07/19/18 at 12:45; Stop 07/19/18 at 12:46; Status DC Ondansetron HCl (Zofran) 4 mg PRN Q8HRS PRN IV NAUSEA/VOMITING; Start 07/19/18 at 14:30; Stop 07/20/18 at 14:29; Status DC Acetaminophen (Tylenol) 650 mg PRN Q4HRS PRN PO FEVER; Start 07/19/18 at 14:30 ; Stop 07/20/18 at 08:37; Status DC Nitroglycerin (Nitrostat) 0.4 mg PRN Q5MIN PRN SL CHEST PAIN; Start 07/19/18 at 14:30; Stop 07/20/18 at 14:29; Status DC Albuterol/ Ipratropium (Duoneb) 3 ml RTQID NEB ; Start 07/19/18 at 16:00; Stop 07/20/18 at 15:59; Status Cancel Aspirin (Tracee Aspirin) 325 mg DAILY PO Last administered on 07/21/18at 08:37; Start 07/19/18 at 15:00 Carvedilol (Coreg) 3.125 mg BIDWMEALS PO ; Start 07/19/18 at 17:00; Stop at 19:42; Status DC Cinacalcet (Sensipar) 30 mg DAILY PO Last administered on 07/21/18at 08:37; Start 07/19/18 at 15:00 Diclofenac Sodium (Voltaren) 1 grisel BID TP Last administered on 07/21/18 08:38 ; Start 07/19/18 at 21:00 Fentanyl (Duragesic 12mcg/ Hr Patch) 1 patch Q3DAYS TD ; Start 07/19/18 at 15:00 ; Stop 07/19/18 at 19:42; Status DC Vitamin B Complex/ Vitamin C (Bela-Roland) 1 tab DAILYBFRSUP PO Last administered on 07/21/18 08:37; Start 07/19/18 at 17:00 Ondansetron HCl (Zofran Odt) 4 mg PRN Q6HRS PRN PO NAUSEA/VOMITING; Start 07/19 at 14:45 Sevelamer Carbonate (Renvela) 2.4 gm TIDWMEALS PO Last administered on 08:37; Start 07/19/18 at 17:00 Acetaminophen (Tylenol) 500 mg PRN Q6HRS PRN PO MILD PAIN / TEMP; Start at 14:45 Latanoprost (Xalatan) 1 drop QHS OU Last administered on 07/19/18 21:54; Start 07/19/18 at 21:00 Calcitriol (Rocaltrol) 0.25 mcg DAILY PO Last administered on 07/21/18 08:37; Start 07/20/18 at 09:00 Vitamin D (Vitamin D3) 1,000 unit DAILY PO Last administered on 07/21/18 08:37 ; Start 07/20/18 at 09:00 Hydromorphone HCl (Dilaudid) 2 mg PRN Q8HRS PRN PO MODERATE PAIN, SEVERE PAIN; Start 07/19/18 at 15:00; Stop 07/20/18 at 09:31; Status DC Insulin Glargine (Lantus) 5 units QHS SQ Last administered on 07/19/18 21:54; Start 07/19/18 at 21:00 Non-Formulary Medication (Latanoprost/Pf (Latanoprost 0.005% Eye Drop)) 7.5 ml QHS OP ; Start 07/19/18 at 21:00; Status UNV Pantoprazole Sodium (Protonix) 40 mg DAILYAC PO Last administered on 07/21/18 08:37; Start 07/20/18 at 07:30 Piperacillin Sod/ Tazobactam Sod (Zosyn Per Pharmacy) 1 each PRN DAILY PRN MC SEE COMMENTS; Start 07/19/18 at 14:45 Albuterol/ Ipratropium (Duoneb) 3 ml RTQID NEB Last administered on 07/21/18 11:31; Start 07/19/18 at 16:00 Guaifenesin (Robitussin Dm) 10 ml QID PO Last administered on 07/21/18 08:37; Start 07/19/18 at 17:00 Temazepam (Restoril) 7.5 mg PRN QHS PRN PO INSOMNIA Last administered on 21:52; Start 07/19/18 at 14:45 Insulin Human Lispro (HumaLOG) 0-7 UNITS TIDWMEALS SQ Last administered on 07/21 08:55; Start 07/19/18 at 17:00 Dextrose (Dextrose 50%-Water Syringe) 12.5 gm PRN Q15MIN PRN IV SEE COMMENTS; Start 07/19/18 at 14:45 Piperacillin Sod/ Tazobactam Sod 2.25 gm/Sodium Chloride 50 ml @ 100 mls/hr Q8H IV Last administered on 07/21/18 08:38; Start 07/19/18 at 16:00 Furosemide (Lasix) 40 mg 1X ONCE IVP Last administered on 07/19/18at 14:52; Start 07/19/18 at 14:45; Stop 07/19/18 at 14:52; Status DC Docusate Sodium (Colace) 100 mg BID PO Last administered on 07/21/18 08:37; Start 07/19/18 at 21:00 Magnesium Hydroxide (Milk Of Magnesia) 2,400 mg PRN DAILY PRN PO CONSTIPATION; Start 07/19/18 at 19:45 Sodium Monofluorophosphate (Fleet Adult) 133 ml PRN DAILY PRN RC CONSTIPATION; Start 07/19/18 at 19:45 Bisacodyl (Dulcolax Supp) 10 mg PRN DAILY PRN WV CONSTIPATION; Start 07/19/18 at 19:45 Polyethylene Glycol (miraLAX PACKET) 17 gm BID PO Last administered on 3/25/ 19at 08:37; Start 07/19/18 at 21:00 Sennosides (Senna) 8.6 mg DAILY PO Last administered on 07/21/18 08:37; Start 07/20/18 at 09:00 Lactobacillus Rhamnosus (Culturelle) 1 cap BID PO Last administered on 08:37; Start 07/20/18 at 21:00 Methylprednisolone Sodium Succinate (SOLU-Medrol 40MG VIAL) 40 mg Q8HRS IV Last administered on 07/21/18at 06:14; Start 07/20/18 at 14:00 Albumin Human 250 ml @ 62.5 mls/hr PRN Q6HRS PRN IV for MAP < 65 Last administered on 07/20/18at 21:52; Start 07/20/18 at 09:45 Magnesium Sulfate 50 ml @ 25 mls/hr PRN DAILY PRN IV for Mag < 1.7 on am labs; Start 07/20/18 at 09:45 Dopamine HCl/ Dextrose 250 ml @ 6.124 mls/ hr CONT PRN IV SEE I/O RECORD Last administered on 07/21/18at 06:15; Start 07/20/18 at 12:00 Sodium Chloride 1,000 ml @ 1,000 mls/hr Q1H PRN IV hypotension; Start 07/21/18 at 13:00; Stop 07/21/18 at 18:59 Sodium Chloride 1,000 ml @ 400 mls/hr Q2H30M PRN IV PATENCY; Start 07/21/18 at 13:00; Stop 07/22/18 at 00:59 Info (PHARMACY MONITORING -- do not chart) 1 each PRN DAILY PRN MC SEE COMMENTS ; Start 07/21/18 at 13:30; Status UNV Info (PHARMACY MONITORING -- do not chart) 1 each PRN DAILY PRN MC SEE COMMENTS ; Start 07/21/18 at 13:30 Albumin Human 100 ml @ 100 mls/hr 1X ONCE IV ; Start 07/21/18 at 13:30; Stop 07/21/18 at 14:29 Active Scripts Active Levemir (Insulin Detemir) 100 Unit/1 Ml Vial 5 Unit SQ QHS 30 Days Hold for < 140mg/dL Acetaminophen 500 Mg Tablet 500 Mg PO PRN Q6HRS PRN 30 Days Aspirin 325 Mg Tablet 1 Tab PO DAILY Reported Senna (Sennosides) 8.6 Mg Tablet 8.6 Mg PO DAILY Novolog Flexpen (Insulin Aspart) 100 Unit/1 Ml Insuln.pen 1 Unit SQ TIDAC Miralax (Polyethylene Glycol 3350) 17 Gm Powd.pack 1 Packet PO BID Milk Of Magnesia (Magnesium Hydroxide) 400 Mg/5 Ml Oral.susp 30 Ml PO PRN DAILY Duoneb 0.5-3(2.5) Mg/3 Ml (Albuterol/Ipratropium) 3 Ml Ampul.neb 3 Ml NEB TID Fleet Enema (Na Phos,M-B/Na Phos,Di-Ba) 133 Ml Enema 1 Each RC PRN DAILY PRN Dulcolax (Bisacodyl) 10 Mg Supp.rect 10 Mg RC PRN DAILY PRN Docusate Sodium 100 Mg Capsule 1 Cap PO BID Carvedilol (Carvedilol) 12.5 Mg Tablet 12.5 Mg PO BIDWMEALS Protonix (Pantoprazole Sodium) 20 Mg Tablet.dr 40 Mg PO DAILY Voltaren (Diclofenac Sodium) 100 Gm Gel..gram. 1 Gm TP BID Zofran Odt (Ondansetron) 4 Mg Tab.rapdis 4 Mg PO Q6HRS PRN Sensipar (Cinacalcet Hcl) 30 Mg Tablet 1 Tab PO DAILY Renvela (Sevelamer Carbonate) 2.4 Gm Powd.pack 2.4 Gm PO TIDWMEALS Lumigan (Bimatoprost) 2.5 Ml Drops 1 Drop EACHEYE QHS Calcitriol 0.25 Mcg Capsule 1 Cap PO DAILY Nephro-Roland Tablet (Folic Acid/Vitamin B Comp W-C) 0.8 Mg Tablet 1 Tab PO DAILYBFRSUP Vitamin D (Cholecalciferol (Vitamin D3)) 2,000 Unit Capsule 1 Cap PO DAILY Vitals/I & O Vital Sign - Last 24 Hours 07/20/18 07/20/18 07/20/18 07/20/18 14:02 14:06 14:17 14:32 Pulse 76 78 78 76 B/P (MAP) 81/35 (50) 78/46 (57) 78/44 (55) 89/41 (57) 07/20/18 07/20/18 07/20/18 07/20/18 14:50 15:22 15:52 16:30 Temp 98.1 98.1 Pulse 76 74 76 B/P (MAP) 78/46 (57) 91/37 (55) 102/47 (65) Pulse Ox 97 O2 Delivery Nasal Cannula Nasal Cannula O2 Flow Rate 2.0 2.0 07/20/18 07/20/18 07/20/18 07/20/18 16:45 17:00 17:15 17:30 Pulse 74 76 92 90 B/P (MAP) 86/45 (59) 84/52 (63) 95/61 (72) 105/48 (67) 07/20/18 07/20/18 07/20/18 07/20/18 17:45 18:00 18:15 18:30 Pulse 84 82 80 82 B/P (MAP) 107/51 (69) 109/49 (69) 87/50 (62) 96/50 (65) 07/20/18 07/20/18 07/20/18 07/20/18 18:45 19:00 19:15 19:30 Pulse 84 84 82 84 B/P (MAP) 98/55 (69) 96/41 (59) 93/47 (62) 84/44 (57) 07/20/18 07/20/18 07/20/18 07/20/18 19:34 20:00 20:19 23:52 Temp 98.5 98.2 98.5 98.2 Pulse 85 97 Resp 22 22 B/P (MAP) 82/41 (55) 99/47 (64) Pulse Ox 94 94 95 O2 Delivery Nasal Cannula Nasal Cannula Nasal Cannula Nasal Cannula O2 Flow Rate 2.0 3.0 3.0 3.0 07/21/18 07/21/18 07/21/18 07/21/18 03:30 07:25 07:43 07:45 Temp 98.0 98.0 Pulse 72 70 Resp 22 B/P (MAP) 104/67 (79) 93/33 (53) Pulse Ox 93 96 O2 Delivery Nasal Cannula Nasal Cannula Nasal Cannula O2 Flow Rate 3.0 2.0 2.0 07/21/18 07/21/18 07/21/18 07/21/18 07:57 09:18 11:00 11:22 Temp 97.9 97.6 97.9 97.6 Pulse 68 68 68 Resp 19 18 B/P (MAP) 92/41 (58) 95/40 (58) Pulse Ox 96 98 98 O2 Delivery Nasal Cannula Nasal Cannula Nasal Cannula O2 Flow Rate 3.0 3.0 2.0 Intake and Output 07/20/18 07/20/18 07/21/18 14:59 22:59 06:59 Intake Total 100 ml Output Total 0 ml 0 ml 0 ml Balance 0 ml 0 ml 100 ml DAY ROSADO MD Jul 21, 2018 13:54
[2018-07-21] MEDS: TEMAZEPAM 7.5 MG CAPSULE PO PRN (19:35)
[2018-07-21] MEDS: LATANOPROST 0.005% OPHTH SOLUTION 2.5ML BOTTLE. OU SCH (19:36)
[2018-07-21] MEDS: ALBUMIN HUMAN 5% 250 ML IV PRN (20:45)
[2018-07-21] MEDS: INSULIN GLARGINE 300 UNITS/3 ML INSULN.PEN. SQ SCH (20:55)
[2018-07-22 03:35] VITALS: BP 102/54
[2018-07-22] MEDS: PIPERACILLIN/TAZOBACTAM 2.25 GM in IV NORMAL SALINE 50ML 50 ML IV SCH ×4 (05:10→20:59)
[2018-07-22] MEDS: methylPREDNISolone SOD SUCC PF 40 MG/ML VIAL. IV SCH ×3 (05:10→21:00)
[2018-07-22 05:32] LABS: BASO # 0.1 x10^3/uL (0.0-0.2); BASO % 1 % (0-3); EOS % 0 % (0-3); HEMATOCRIT 32.7 % (36.0-47.0); HEMOGLOBIN 10.8 g/dL (12.0-15.5); LYMPH # 0.5 x10^3/uL (1.0-4.8); LYMPH % 4 % (24-48); MEAN CORPUSCULAR HEMOGLOBIN 34 pg (25-35); MEAN CORPUSCULAR HGB CONC 33 g/dL (31-37); MEAN CORPUSCULAR VOLUME 103 fL (79-100); MONO # 0.6 x10^3/uL (0.0-1.1); MONO % 5 % (0-9); NEUT # 10.9 x10^3uL (1.8-7.7); NEUT % 90 % (31-73); PLATELET COUNT 138 x10^3/uL (140-400); RED BLOOD COUNT 3.16 x10^6/uL (3.50-5.40); RED CELL DISTRIBUTION WIDTH 15.4 % (11.5-14.5); WHITE BLOOD COUNT 12.2 x10^3/uL (4.0-11.0)
[2018-07-22 05:45] LABS: ALBUMIN 3.1 g/dL (3.4-5.0); CALCIUM 7.9 mg/dL (8.5-10.1); CREATININE 4.1 mg/dL (0.6-1.0); GFR 10.3; MAGNESIUM 2.6 mg/dL (1.8-2.4); POTASSIUM 4.3 mmol/L (3.5-5.1)
[2018-07-22 07:00] VITALS: BP 95/56
[2018-07-22] MEDS: IPRATRPIUM/ALBUTEROL 0.5/2.5MG 3 ML NEBU. NEB SCH ×5 (07:29→20:00)
[2018-07-22] MEDS: SEVELAMER CARBONATE 2.4 GM PACKET. PO SCH ×3 (07:59→17:15)
[2018-07-22] MEDS: CALCITRIOL 0.25 MCG CAPSULE. PO SCH (08:00)
[2018-07-22] MEDS: CINACALCET HCL 30 MG TABLET PO SCH (08:00)
[2018-07-22] MEDS: ASPIRIN 325 MG TABLET PO SCH (08:00)
[2018-07-22] MEDS: CHOLECALCIFEROL (VITAMIN D3) 1,000 UNIT TABLET PO SCH (08:00)
[2018-07-22] MEDS: LACTOBACILLUS RHAMNOSUS GG 1 CAPSULE. PO SCH ×2 (08:01→20:42)
[2018-07-22] MEDS: DOCUSATE SODIUM 100 MG CAPSULE. PO SCH ×2 (08:01→20:42)
[2018-07-22] MEDS: PANTOPRAZOLE 40 MG TABLET.DR. PO SCH (08:01)
[2018-07-22] MEDS: SENNOSIDES 8.6 MG TABLET PO SCH (08:02)
[2018-07-22] MEDS: DICLOFENAC SODIUM 1% TOPICAL GEL 100GM TUBE. TP SCH ×2 (08:02→20:42)
[2018-07-22] MEDS: guaiFENesin DM 200MG/20MG 10 ML SYRUP PO SCH ×4 (08:02→20:42)
[2018-07-22] MEDS: POLYETHYLENE GLYCOL 3350 17 GM PACKET. PO SCH ×2 (08:02→20:42)
[2018-07-22] MEDS: INSULIN LISPRO 300 UNITS/3 ML INSULN.PEN. SQ SCH ×3 (08:12→17:23)
--- NOTE | 2018-07-22 09:19 | PDOC ---
PULMONARY PROGRESS NOTES Subjective PT NOT MORE SOA NOT DIZZY ON DOPAMINE FOR HYPOTENSION Vitals Vital Signs Date Time Temp Pulse Resp B/P (MAP) Pulse Ox O2 Delivery O2 Flow Rate FiO2 07/22/18 08:00 Nasal Cannula 2.0 07/22/18 07:00 98.1 76 20 95/56 (69) 97 98.1 ROS: No Nausea, No Chest Pain, No Abdominal Pain, No Increase Cough General: Alert, No acute distress Lungs: Wheezing Cardiovascular: S1, S2 Abdomen: Soft Neuro Exam: Alert Extremities: Other Skin: Warm Labs Laboratory Tests Test 07/20/18 10:59 07/20/18 16:54 07/20/18 20:48 07/21/18 04:25 Glucose (Fingerstick) 108 mg/dL (70-99) 140 mg/dL (70-99) 208 mg/dL (70-99) White Blood Count 11.8 x10^3/uL (4.0-11.0) Red Blood Count 3.30 x10^6/uL (3.50-5.40) Hemoglobin 11.1 g/dL (12.0-15.5) Hematocrit 34.6 % (36.0-47.0) Mean Corpuscular Volume 105 fL (79-100) Mean Corpuscular Hemoglobin 34 pg (25-35) Mean Corpuscular Hemoglobin Concent 32 g/dL (31-37) Red Cell Distribution Width 15.7 % (11.5-14.5) Platelet Count 163 x10^3/uL (140-400) Neutrophils (%) (Auto) 94 % (31-73) Lymphocytes (%) (Auto) 4 % (24-48) Monocytes (%) (Auto) 2 % (0-9) Eosinophils (%) (Auto) 0 % (0-3) Basophils (%) (Auto) 0 % (0-3) Neutrophils # (Auto) 11.1 x10^3uL (1.8-7.7) Lymphocytes # (Auto) 0.4 x10^3/uL (1.0-4.8) Monocytes # (Auto) 0.2 x10^3/uL (0.0-1.1) Eosinophils # (Auto) 0.0 x10^3/uL (0.0-0.7) Basophils # (Auto) 0.0 x10^3/uL (0.0-0.2) Segmented Neutrophils % 94 % (35-66) Lymphocytes % 4 % (24-48) Monocytes % 2 % (0-10) Platelet Estimate Adequate (ADEQUATE) Anisocytosis Slight Sodium Level 132 mmol/L (136-145) Potassium Level 5.1 mmol/L (3.5-5.1) Chloride Level 93 mmol/L (98-107) Carbon Dioxide Level 25 mmol/L (21-32) Anion Gap 14 (6-14) Blood Urea Nitrogen 53 mg/dL (7-20) Creatinine 6.4 mg/dL (0.6-1.0) Estimated GFR (Cockcroft-Gault) 6.2 Glucose Level 319 mg/dL (70-99) Calcium Level 7.9 mg/dL (8.5-10.1) Phosphorus Level 4.7 mg/dL (2.6-4.7) Magnesium Level 2.8 mg/dL (1.8-2.4) Albumin 2.4 g/dL (3.4-5.0) Test 07/21/18 07:25 07/21/18 11:41 07/21/18 16:32 07/21/18 17:50 Glucose (Fingerstick) 293 mg/dL (70-99) 285 mg/dL (70-99) 156 mg/dL (70-99) 201 mg/dL (70-99) Test 07/21/18 20:53 07/22/18 05:05 07/22/18 07:12 Glucose (Fingerstick) 240 mg/dL (70-99) 297 mg/dL (70-99) White Blood Count 12.2 x10^3/uL (4.0-11.0) Red Blood Count 3.16 x10^6/uL (3.50-5.40) Hemoglobin 10.8 g/dL (12.0-15.5) Hematocrit 32.7 % (36.0-47.0) Mean Corpuscular Volume 103 fL (79-100) Mean Corpuscular Hemoglobin 34 pg (25-35) Mean Corpuscular Hemoglobin Concent 33 g/dL (31-37) Red Cell Distribution Width 15.4 % (11.5-14.5) Platelet Count 138 x10^3/uL (140-400) Neutrophils (%) (Auto) 90 % (31-73) Lymphocytes (%) (Auto) 4 % (24-48) Monocytes (%) (Auto) 5 % (0-9) Eosinophils (%) (Auto) 0 % (0-3) Basophils (%) (Auto) 1 % (0-3) Neutrophils # (Auto) 10.9 x10^3uL (1.8-7.7) Lymphocytes # (Auto) 0.5 x10^3/uL (1.0-4.8) Monocytes # (Auto) 0.6 x10^3/uL (0.0-1.1) Eosinophils # (Auto) 0.0 x10^3/uL (0.0-0.7) Basophils # (Auto) 0.1 x10^3/uL (0.0-0.2) Sodium Level 135 mmol/L (136-145) Potassium Level 4.3 mmol/L (3.5-5.1) Chloride Level 95 mmol/L (98-107) Carbon Dioxide Level 27 mmol/L (21-32) Anion Gap 13 (6-14) Blood Urea Nitrogen 34 mg/dL (7-20) Creatinine 4.1 mg/dL (0.6-1.0) Estimated GFR (Cockcroft-Gault) 10.3 Glucose Level 328 mg/dL (70-99) Calcium Level 7.9 mg/dL (8.5-10.1) Phosphorus Level 4.0 mg/dL (2.6-4.7) Magnesium Level 2.6 mg/dL (1.8-2.4) Albumin 3.1 g/dL (3.4-5.0) Laboratory Tests Test 07/21/18 11:41 07/21/18 16:32 07/21/18 17:50 07/21/18 20:53 Glucose (Fingerstick) 285 mg/dL (70-99) 156 mg/dL (70-99) 201 mg/dL (70-99) 240 mg/dL (70-99) Test 07/22/18 05:05 07/22/18 07:12 White Blood Count 12.2 x10^3/uL (4.0-11.0) Red Blood Count 3.16 x10^6/uL (3.50-5.40) Hemoglobin 10.8 g/dL (12.0-15.5) Hematocrit 32.7 % (36.0-47.0) Mean Corpuscular Volume 103 fL (79-100) Mean Corpuscular Hemoglobin 34 pg (25-35) Mean Corpuscular Hemoglobin Concent 33 g/dL (31-37) Red Cell Distribution Width 15.4 % (11.5-14.5) Platelet Count 138 x10^3/uL (140-400) Neutrophils (%) (Auto) 90 % (31-73) Lymphocytes (%) (Auto) 4 % (24-48) Monocytes (%) (Auto) 5 % (0-9) Eosinophils (%) (Auto) 0 % (0-3) Basophils (%) (Auto) 1 % (0-3) Neutrophils # (Auto) 10.9 x10^3uL (1.8-7.7) Lymphocytes # (Auto) 0.5 x10^3/uL (1.0-4.8) Monocytes # (Auto) 0.6 x10^3/uL (0.0-1.1) Eosinophils # (Auto) 0.0 x10^3/uL (0.0-0.7) Basophils # (Auto) 0.1 x10^3/uL (0.0-0.2) Sodium Level 135 mmol/L (136-145) Potassium Level 4.3 mmol/L (3.5-5.1) Chloride Level 95 mmol/L (98-107) Carbon Dioxide Level 27 mmol/L (21-32) Anion Gap 13 (6-14) Blood Urea Nitrogen 34 mg/dL (7-20) Creatinine 4.1 mg/dL (0.6-1.0) Estimated GFR (Cockcroft-Gault) 10.3 Glucose Level 328 mg/dL (70-99) Calcium Level 7.9 mg/dL (8.5-10.1) Phosphorus Level 4.0 mg/dL (2.6-4.7) Magnesium Level 2.6 mg/dL (1.8-2.4) Albumin 3.1 g/dL (3.4-5.0) Glucose (Fingerstick) 297 mg/dL (70-99) Medications Active Scripts Medications Dose Route/Sig Max Daily Dose Days Date Category Dose Instructions Senna (Sennosides) 8.6 Mg Tablet 8.6 Mg PO DAILY 07/19/18 Reported Novolog Flexpen (Insulin Aspart) 100 Unit/1 Ml Insuln.pen 1 Unit SQ TIDAC 07/19/18 Reported Miralax (Polyethylene Glycol 3350) 17 Gm Powd.pack 1 Packet PO BID 07/19/18 Reported Milk Of Magnesia (Magnesium Hydroxide) 400 Mg/5 Ml Oral.susp 30 Ml PO PRN DAILY 07/19/18 Reported Duoneb 0.5-3(2.5) Mg/3 Ml (Albuterol/Ipratropium) 3 Ml Ampul.neb 3 Ml NEB TID 07/19/18 Reported Fleet Enema (Na Phos,M-B/Na Phos,Di-Ba) 133 Ml Enema 1 Each RC PRN DAILY PRN 07/19/18 Reported Dulcolax (Bisacodyl) 10 Mg Supp.rect 10 Mg RC PRN DAILY PRN 07/19/18 Reported Docusate Sodium 100 Mg Capsule 1 Cap PO BID 07/19/18 Reported Carvedilol (Carvedilol) 12.5 Mg Tablet 12.5 Mg PO BIDWMEALS 07/19/18 Reported Levemir (Insulin Detemir) 100 Unit/1 Ml Vial 5 Unit SQ QHS 30 07/15/18 Rx Hold for < 140mg/dL Acetaminophen 500 Mg Tablet 500 Mg PO PRN Q6HRS PRN 30 07/14/18 Rx Aspirin 325 Mg Tablet 1 Tab PO DAILY 04/16/18 Rx Protonix (Pantoprazole Sodium) 20 Mg Tablet.dr 40 Mg PO DAILY 11/06/17 Reported Voltaren (Diclofenac Sodium) 100 Gm Gel..gram. 1 Gm TP BID 11/06/17 Reported Zofran Odt (Ondansetron) 4 Mg Tab.rapdis 4 Mg PO Q6HRS PRN 10/30/17 Reported Sensipar (Cinacalcet Hcl) 30 Mg Tablet 1 Tab PO DAILY 02/04/17 Reported Renvela (Sevelamer Carbonate) 2.4 Gm Powd.pack 2.4 Gm PO TIDWMEALS 02/04/17 Reported Lumigan (Bimatoprost) 2.5 Ml Drops 1 Drop EACHEYE QHS 02/04/17 Reported Calcitriol 0.25 Mcg Capsule 1 Cap PO DAILY 01/18/17 Reported Nephro-Roland Tablet (Folic Acid/Vitamin B Comp W-C) 0.8 Mg Tablet 1 Tab PO DAILYBFRSUP 11/26/15 Reported Vitamin D (Cholecalciferol (Vitamin D3)) 2,000 Unit Capsule 1 Cap PO DAILY 11/26/15 Reported Impression . IMPRESSION: 1. Dyspnea with cough and mild bronchospasm, likely related to viral pneumonitis, triggering bronchospasm. She may have adult onset reactive airway disease. 2. Recent abnormal CT chest on 07/11 suggesting upper lobe viral pneumonitis. She has some ground glass infiltrates at that time. 3. End-stage renal disease, on hemodialysis. 4. Underlying obesity. 5. Chronic hypoxic respiratory failure, on home oxygen 2 liters. 6 HYPOTENSION Plan . PRESSORS CONTINUE THE SAME SPOKE WITH PALLIATIVE CARE 1. Continue with present oxygen. 2. Continue DuoNebs. 3. Add low dose Solu-Medrol. 4. Hemodialysis per Renal. 5. Continue antibiotics, Zosyn. JULIANE MILLER MD Jul 22, 2018 09:19
--- NOTE | 2018-07-22 09:39 | PDOC ---
Provider Note Provider Note ID consult dictated CHRISTOPH MOY MD Jul 22, 2018 09:39
--- NOTE | 2018-07-22 10:48 | PDOC ---
CARDIO Progress Notes Date and Time Date of Service Time of Evaluation 1020 Subjective Subjective: No Chest Pain, No shortness of breath, No Palpitations, No Dizziness Vitals Vitals Vital Signs Date Time Temp Pulse Resp B/P (MAP) Pulse Ox O2 Delivery O2 Flow Rate FiO2 07/22/18 08:00 Nasal Cannula 2.0 07/22/18 07:00 98.1 76 20 95/56 (69) 97 98.1 Weight Weight [ ] Input and Output Intake and Output Intake and Output 07/22/18 06:59 Intake Total 560 ml Output Total 0 ml Balance 560 ml Intake Oral 560 ml Output Urine Total 0 ml # Bowel Movements 1 Laboratory Labs Laboratory Tests Test 07/21/18 11:41 07/21/18 16:32 07/21/18 17:50 07/21/18 20:53 Glucose (Fingerstick) 285 mg/dL (70-99) 156 mg/dL (70-99) 201 mg/dL (70-99) 240 mg/dL (70-99) Test 07/22/18 05:05 07/22/18 07:12 White Blood Count 12.2 x10^3/uL (4.0-11.0) Red Blood Count 3.16 x10^6/uL (3.50-5.40) Hemoglobin 10.8 g/dL (12.0-15.5) Hematocrit 32.7 % (36.0-47.0) Mean Corpuscular Volume 103 fL (79-100) Mean Corpuscular Hemoglobin 34 pg (25-35) Mean Corpuscular Hemoglobin Concent 33 g/dL (31-37) Red Cell Distribution Width 15.4 % (11.5-14.5) Platelet Count 138 x10^3/uL (140-400) Neutrophils (%) (Auto) 90 % (31-73) Lymphocytes (%) (Auto) 4 % (24-48) Monocytes (%) (Auto) 5 % (0-9) Eosinophils (%) (Auto) 0 % (0-3) Basophils (%) (Auto) 1 % (0-3) Neutrophils # (Auto) 10.9 x10^3uL (1.8-7.7) Lymphocytes # (Auto) 0.5 x10^3/uL (1.0-4.8) Monocytes # (Auto) 0.6 x10^3/uL (0.0-1.1) Eosinophils # (Auto) 0.0 x10^3/uL (0.0-0.7) Basophils # (Auto) 0.1 x10^3/uL (0.0-0.2) Sodium Level 135 mmol/L (136-145) Potassium Level 4.3 mmol/L (3.5-5.1) Chloride Level 95 mmol/L (98-107) Carbon Dioxide Level 27 mmol/L (21-32) Anion Gap 13 (6-14) Blood Urea Nitrogen 34 mg/dL (7-20) Creatinine 4.1 mg/dL (0.6-1.0) Estimated GFR (Cockcroft-Gault) 10.3 Glucose Level 328 mg/dL (70-99) Calcium Level 7.9 mg/dL (8.5-10.1) Phosphorus Level 4.0 mg/dL (2.6-4.7) Magnesium Level 2.6 mg/dL (1.8-2.4) Albumin 3.1 g/dL (3.4-5.0) Glucose (Fingerstick) 297 mg/dL (70-99) Review of Systems Constitutional: yes: weakness, alert Ears/Nose/Throat: Yes: dysphagia Cardiovascular: Yes no symptom reported Gastrointestional: Yes: constipation Genitourinary: Yes: no symptom reported Musculoskeletal: Yes: muscle stiffness Skin: Yes no symptom reported Psychiatric/Neurological: Yes: no symptom reported Endocrine: Yes: no symptom reported Physical Exam HEENT: Neck Supple W Full Motion Chest: Symmetric LUNGS: Other (basilar crackles) Heart: S1S2, irregularly irregular (AFIB rate controlled) Extremities: Other (trace LE edema) Neurology: alert, oriented, follow commands Assessment Assessment 1. Hypotension. Bp stable but still marginal.. Recent echo with LVEF 40% with severe TR. poor surgical candidate. 2. H/o CAD s/p CABG CABG. Ejection fraction of 40% as above. CP free 3. Hypertension; with present hypotension as noted above 4. ESRD on HD 5. Chronic diastolic CHF; Compensated 6. Probable PNA 7. DM, II; uncontrolled. as per PCP 8. Persistent AFIB; rate controlled without therapy 9. Debility/WC bound Recommendations 1. Continue to hold BP meds. Titrate off dopamine and note response. 2. Poor PO intake, discussed with RN, push fluids. 3. Awaiting CT chest 4. Up in chair, OT/PT 5. ASA for stroke prophylaxis. Noted to be poor candidate for OAC. 6. Goals of care need addressed with palliative if not yet done. 7. IV bolus. Will likely end up with midodrine. Will start on digoxin PO to be given after HD TIW. NATHAN TRINH APRN Jul 22, 2018 10:48
--- NOTE | 2018-07-22 10:53 | PDOC ---
PROGRESS NOTES Chief Complaint Chief Complaint 87-year-old female //admitted from 07/10 thru 07/15, discharge 4 days [facility] to [facility] , [facility] resident, Did not finish dialysis because could not feel a bruit? hypotension but now blood pressure 90'Ss somewhat symptomatic with lethargy History of Present Illness History of Present Illness Assessment/Plan Assessment/Plan SOA, fluid overload-cannot rule out HCAP ESRD on dialysis-did not finish dialysis Existing AV fistula with good bruit Hypotension, resolved now hypertension Anemia of chronic disease Generalized weakness SNU resident Diabetes type 2 on low-dose insulin symptomatic with lethargy hypotension not improved CXR 07/21 The patient is post CABG procedure. The cardiac silhouette is mild to moderately enlarged. Atherosclerotic calcification of the thoracic aorta is seen. The thoracic aorta is tortuous. Prominence of pulmonary vasculature is seen consistent with CHF. Left lower lobe atelectasis and or infiltrate is noted. No pneumothorax or pleural effusion is seen. The osseous structures are unchanged.? ASPIRATION SILENT 07/22 ct chest patchy ground glass opacification of the lungs. Interval development of small pleural effusions right greater than left, with underlying atelectasis. The appearance suggests mild congestive failure, however an atypical infectious process, or inflammatory etiology is possible. PLAN: DOPAMINE DRIP BP SUPPORT ID CONSULT VIRAL RESP PANEL RSV DIALYSIS- PT OT Sliding-scale insulin moderate dose Renal diet Renal consult Zosyn per pharmacy Follow cultures FREQUENT LABS Back to [facility] on d/c Small IV 5% albumin boluses can be administered if maps dropped below 65 Full code SWALLOW EVAL PASSED 46 min visit time, pt exam chart review > 50% time with exam, chart review pt care coordination, GUARDED PROGNOSIS PER MY CHART REVIEW Vitals Vitals Vital Signs Date Time Temp Pulse Resp B/P (MAP) Pulse Ox O2 Delivery O2 Flow Rate FiO2 07/22/18 08:00 Nasal Cannula 2.0 07/22/18 07:00 98.1 76 20 95/56 (69) 97 98.1 Physical Exam Physical Exam Abdomen: Normal bowel sounds, Soft, No tenderness, No hepatosplenomegaly, No masses Rectal Exam: not examined Extremities: No clubbing, No cyanosis, No edema, Normal pulses, No tenderness/ swelling Skin: No rashes, No breakdown, No significant lesion Neuro: Normal speech, Strength at 5/5 X4 ext, Normal tone, Sensation intact, Cranial nerves 3-12 NL,GROSSLY Psych/Mental Status: Mental status NL, Mood NL General: Alert, Oriented X3, Cooperative, mild distress Heart: Regular rate, Normal S1 Lungs: Wheezing, Crackles (less crackles) Abdomen: Normal bowel sounds, No masses Extremities: No clubbing, No cyanosis, No edema, Normal pulses, No tenderness/ swelling Skin: No rashes, No breakdown, No significant lesion Labs LABS CT of the chest without contrast 07/22/2018 INDICATION: Pneumonia. COMPARISON STUDY: CT of the chest without contrast July 11, 2018. TECHNIQUE: Multidetector CT imaging of the chest was performed without contrast FINDINGS: Significant cardiomegaly again noted.. Severe diffuse coronary calcification is again noted. Ectasia of ascending thoracic aorta is seen. Diffuse vascular vascular disease noted. No significant pericardial effusion is identified. Pulmonary arteries are top normal in diameter. Findings can be associated with pulmonary hypertension in the appropriate setting. Scattered mild mediastinal adenopathy is unchanged. There is been interval development of small bilateral pleural effusions right greater than left. Underlying atelectasis is noted. Persistent mild consolidation in the right middle lobe and lower lobe is seen. Mild heterogenous attenuation of the lungs again noted. Mild areas of intralobular septal thickening are seen. 6 mm groundglass nodule in the right upper lobe is unchanged. Limited visualization of the upper abdomen demonstrates minimal perihepatic ascites no acute osseous changes are identified. Compression deformity of the T12 and L1 vertebra noted. This is unchanged. IMPRESSION: 1. Cardiomegaly and central vascular congestion with mild intralobular septal thickening and patchy ground glass opacification of the lungs. Interval development of small pleural effusions right greater than left, with underlying atelectasis. The appearance suggests mild congestive failure, however an atypical infectious process, or inflammatory etiology is possible. 2. 6 mm groundglass nodule, right lobe is unchanged. 6 month follow-up CT recommended Laboratory Tests Test 07/21/18 11:41 07/21/18 16:32 07/21/18 17:50 07/21/18 20:53 Glucose (Fingerstick) 285 mg/dL (70-99) 156 mg/dL (70-99) 201 mg/dL (70-99) 240 mg/dL (70-99) Test 07/22/18 05:05 07/22/18 07:12 White Blood Count 12.2 x10^3/uL (4.0-11.0) Red Blood Count 3.16 x10^6/uL (3.50-5.40) Hemoglobin 10.8 g/dL (12.0-15.5) Hematocrit 32.7 % (36.0-47.0) Mean Corpuscular Volume 103 fL (79-100) Mean Corpuscular Hemoglobin 34 pg (25-35) Mean Corpuscular Hemoglobin Concent 33 g/dL (31-37) Red Cell Distribution Width 15.4 % (11.5-14.5) Platelet Count 138 x10^3/uL (140-400) Neutrophils (%) (Auto) 90 % (31-73) Lymphocytes (%) (Auto) 4 % (24-48) Monocytes (%) (Auto) 5 % (0-9) Eosinophils (%) (Auto) 0 % (0-3) Basophils (%) (Auto) 1 % (0-3) Neutrophils # (Auto) 10.9 x10^3uL (1.8-7.7) Lymphocytes # (Auto) 0.5 x10^3/uL (1.0-4.8) Monocytes # (Auto) 0.6 x10^3/uL (0.0-1.1) Eosinophils # (Auto) 0.0 x10^3/uL (0.0-0.7) Basophils # (Auto) 0.1 x10^3/uL (0.0-0.2) Sodium Level 135 mmol/L (136-145) Potassium Level 4.3 mmol/L (3.5-5.1) Chloride Level 95 mmol/L (98-107) Carbon Dioxide Level 27 mmol/L (21-32) Anion Gap 13 (6-14) Blood Urea Nitrogen 34 mg/dL (7-20) Creatinine 4.1 mg/dL (0.6-1.0) Estimated GFR (Cockcroft-Gault) 10.3 Glucose Level 328 mg/dL (70-99) Calcium Level 7.9 mg/dL (8.5-10.1) Phosphorus Level 4.0 mg/dL (2.6-4.7) Magnesium Level 2.6 mg/dL (1.8-2.4) Albumin 3.1 g/dL (3.4-5.0) Glucose (Fingerstick) 297 mg/dL (70-99) Assessment and Plan Assessmemt and Plan Problems Medical Problems: (1) Congestive heart failure Status: Acute Comment Review of Relevant I have reviewed the following items smith (where applicable) has been applied. Labs Laboratory Tests Test 07/20/18 10:59 07/20/18 16:54 07/20/18 20:48 07/21/18 04:25 Glucose (Fingerstick) 108 mg/dL (70-99) 140 mg/dL (70-99) 208 mg/dL (70-99) White Blood Count 11.8 x10^3/uL (4.0-11.0) Red Blood Count 3.30 x10^6/uL (3.50-5.40) Hemoglobin 11.1 g/dL (12.0-15.5) Hematocrit 34.6 % (36.0-47.0) Mean Corpuscular Volume 105 fL (79-100) Mean Corpuscular Hemoglobin 34 pg (25-35) Mean Corpuscular Hemoglobin Concent 32 g/dL (31-37) Red Cell Distribution Width 15.7 % (11.5-14.5) Platelet Count 163 x10^3/uL (140-400) Neutrophils (%) (Auto) 94 % (31-73) Lymphocytes (%) (Auto) 4 % (24-48) Monocytes (%) (Auto) 2 % (0-9) Eosinophils (%) (Auto) 0 % (0-3) Basophils (%) (Auto) 0 % (0-3) Neutrophils # (Auto) 11.1 x10^3uL (1.8-7.7) Lymphocytes # (Auto) 0.4 x10^3/uL (1.0-4.8) Monocytes # (Auto) 0.2 x10^3/uL (0.0-1.1) Eosinophils # (Auto) 0.0 x10^3/uL (0.0-0.7) Basophils # (Auto) 0.0 x10^3/uL (0.0-0.2) Segmented Neutrophils % 94 % (35-66) Lymphocytes % 4 % (24-48) Monocytes % 2 % (0-10) Platelet Estimate Adequate (ADEQUATE) Anisocytosis Slight Sodium Level 132 mmol/L (136-145) Potassium Level 5.1 mmol/L (3.5-5.1) Chloride Level 93 mmol/L (98-107) Carbon Dioxide Level 25 mmol/L (21-32) Anion Gap 14 (6-14) Blood Urea Nitrogen 53 mg/dL (7-20) Creatinine 6.4 mg/dL (0.6-1.0) Estimated GFR (Cockcroft-Gault) 6.2 Glucose Level 319 mg/dL (70-99) Calcium Level 7.9 mg/dL (8.5-10.1) Phosphorus Level 4.7 mg/dL (2.6-4.7) Magnesium Level 2.8 mg/dL (1.8-2.4) Albumin 2.4 g/dL (3.4-5.0) Test 07/21/18 07:25 07/21/18 11:41 07/21/18 16:32 07/21/18 17:50 Glucose (Fingerstick) 293 mg/dL (70-99) 285 mg/dL (70-99) 156 mg/dL (70-99) 201 mg/dL (70-99) Test 07/21/18 20:53 07/22/18 05:05 07/22/18 07:12 Glucose (Fingerstick) 240 mg/dL (70-99) 297 mg/dL (70-99) White Blood Count 12.2 x10^3/uL (4.0-11.0) Red Blood Count 3.16 x10^6/uL (3.50-5.40) Hemoglobin 10.8 g/dL (12.0-15.5) Hematocrit 32.7 % (36.0-47.0) Mean Corpuscular Volume 103 fL (79-100) Mean Corpuscular Hemoglobin 34 pg (25-35) Mean Corpuscular Hemoglobin Concent 33 g/dL (31-37) Red Cell Distribution Width 15.4 % (11.5-14.5) Platelet Count 138 x10^3/uL (140-400) Neutrophils (%) (Auto) 90 % (31-73) Lymphocytes (%) (Auto) 4 % (24-48) Monocytes (%) (Auto) 5 % (0-9) Eosinophils (%) (Auto) 0 % (0-3) Basophils (%) (Auto) 1 % (0-3) Neutrophils # (Auto) 10.9 x10^3uL (1.8-7.7) Lymphocytes # (Auto) 0.5 x10^3/uL (1.0-4.8) Monocytes # (Auto) 0.6 x10^3/uL (0.0-1.1) Eosinophils # (Auto) 0.0 x10^3/uL (0.0-0.7) Basophils # (Auto) 0.1 x10^3/uL (0.0-0.2) Sodium Level 135 mmol/L (136-145) Potassium Level 4.3 mmol/L (3.5-5.1) Chloride Level 95 mmol/L (98-107) Carbon Dioxide Level 27 mmol/L (21-32) Anion Gap 13 (6-14) Blood Urea Nitrogen 34 mg/dL (7-20) Creatinine 4.1 mg/dL (0.6-1.0) Estimated GFR (Cockcroft-Gault) 10.3 Glucose Level 328 mg/dL (70-99) Calcium Level 7.9 mg/dL (8.5-10.1) Phosphorus Level 4.0 mg/dL (2.6-4.7) Magnesium Level 2.6 mg/dL (1.8-2.4) Albumin 3.1 g/dL (3.4-5.0) Laboratory Tests Test 07/21/18 11:41 07/21/18 16:32 07/21/18 17:50 07/21/18 20:53 Glucose (Fingerstick) 285 mg/dL (70-99) 156 mg/dL (70-99) 201 mg/dL (70-99) 240 mg/dL (70-99) Test 07/22/18 05:05 07/22/18 07:12 White Blood Count 12.2 x10^3/uL (4.0-11.0) Red Blood Count 3.16 x10^6/uL (3.50-5.40) Hemoglobin 10.8 g/dL (12.0-15.5) Hematocrit 32.7 % (36.0-47.0) Mean Corpuscular Volume 103 fL (79-100) Mean Corpuscular Hemoglobin 34 pg (25-35) Mean Corpuscular Hemoglobin Concent 33 g/dL (31-37) Red Cell Distribution Width 15.4 % (11.5-14.5) Platelet Count 138 x10^3/uL (140-400) Neutrophils (%) (Auto) 90 % (31-73) Lymphocytes (%) (Auto) 4 % (24-48) Monocytes (%) (Auto) 5 % (0-9) Eosinophils (%) (Auto) 0 % (0-3) Basophils (%) (Auto) 1 % (0-3) Neutrophils # (Auto) 10.9 x10^3uL (1.8-7.7) Lymphocytes # (Auto) 0.5 x10^3/uL (1.0-4.8) Monocytes # (Auto) 0.6 x10^3/uL (0.0-1.1) Eosinophils # (Auto) 0.0 x10^3/uL (0.0-0.7) Basophils # (Auto) 0.1 x10^3/uL (0.0-0.2) Sodium Level 135 mmol/L (136-145) Potassium Level 4.3 mmol/L (3.5-5.1) Chloride Level 95 mmol/L (98-107) Carbon Dioxide Level 27 mmol/L (21-32) Anion Gap 13 (6-14) Blood Urea Nitrogen 34 mg/dL (7-20) Creatinine 4.1 mg/dL (0.6-1.0) Estimated GFR (Cockcroft-Gault) 10.3 Glucose Level 328 mg/dL (70-99) Calcium Level 7.9 mg/dL (8.5-10.1) Phosphorus Level 4.0 mg/dL (2.6-4.7) Magnesium Level 2.6 mg/dL (1.8-2.4) Albumin 3.1 g/dL (3.4-5.0) Glucose (Fingerstick) 297 mg/dL (70-99) Medications Current Medications Albuterol/ Ipratropium (Duoneb) 3 ml 1X ONCE NEB Last administered on at 12:57; Start 07/19/18 at 12:45; Stop 07/19/18 at 12:46; Status DC Ondansetron HCl (Zofran) 4 mg PRN Q8HRS PRN IV NAUSEA/VOMITING; Start 07/19/18 at 14:30; Stop 07/20/18 at 14:29; Status DC Acetaminophen (Tylenol) 650 mg PRN Q4HRS PRN PO FEVER; Start 07/19/18 at 14:30 ; Stop 07/20/18 at 08:37; Status DC Nitroglycerin (Nitrostat) 0.4 mg PRN Q5MIN PRN SL CHEST PAIN; Start 07/19/18 at 14:30; Stop 07/20/18 at 14:29; Status DC Albuterol/ Ipratropium (Duoneb) 3 ml RTQID NEB ; Start 07/19/18 at 16:00; Stop 07/20/18 at 15:59; Status Cancel Aspirin (Tracee Aspirin) 325 mg DAILY PO Last administered on 07/22/18at 08:00; Start 07/19/18 at 15:00 Carvedilol (Coreg) 3.125 mg BIDWMEALS PO ; Start 07/19/18 at 17:00; Stop at 19:42; Status DC Cinacalcet (Sensipar) 30 mg DAILY PO Last administered on 07/22/18at 08:00; Start 07/19/18 at 15:00 Diclofenac Sodium (Voltaren) 1 grisel BID TP Last administered on 07/21/18at 19:36 ; Start 07/19/18 at 21:00 Fentanyl (Duragesic 12mcg/ Hr Patch) 1 patch Q3DAYS TD ; Start 07/19/18 at 15:00 ; Stop 07/19/18 at 19:42; Status DC Vitamin B Complex/ Vitamin C (Bela-Roland) 1 tab DAILYBFRSUP PO Last administered on 07/21/18at 08:37; Start 07/19/18 at 17:00 Ondansetron HCl (Zofran Odt) 4 mg PRN Q6HRS PRN PO NAUSEA/VOMITING; Start 07/19 at 14:45 Sevelamer Carbonate (Renvela) 2.4 gm TIDWMEALS PO Last administered on at 07:59; Start 07/19/18 at 17:00 Acetaminophen (Tylenol) 500 mg PRN Q6HRS PRN PO MILD PAIN / TEMP; Start at 14:45 Latanoprost (Xalatan) 1 drop QHS OU Last administered on 07/21/18 19:36; Start 07/19/18 at 21:00 Calcitriol (Rocaltrol) 0.25 mcg DAILY PO Last administered on 07/22/18 08:00; Start 07/20/18 at 09:00 Vitamin D (Vitamin D3) 1,000 unit DAILY PO Last administered on 07/22/18 08:00 ; Start 07/20/18 at 09:00 Hydromorphone HCl (Dilaudid) 2 mg PRN Q8HRS PRN PO MODERATE PAIN, SEVERE PAIN; Start 07/19/18 at 15:00; Stop 07/20/18 at 09:31; Status DC Insulin Glargine (Lantus) 5 units QHS SQ Last administered on 07/21/18 20:55; Start 07/19/18 at 21:00 Non-Formulary Medication (Latanoprost/Pf (Latanoprost 0.005% Eye Drop)) 7.5 ml QHS OP ; Start 07/19/18 at 21:00; Status UNV Pantoprazole Sodium (Protonix) 40 mg DAILYAC PO Last administered on 07/22/18 08:01; Start 07/20/18 at 07:30 Piperacillin Sod/ Tazobactam Sod (Zosyn Per Pharmacy) 1 each PRN DAILY PRN MC SEE COMMENTS; Start 07/19/18 at 14:45 Albuterol/ Ipratropium (Duoneb) 3 ml RTQID NEB Last administered on 07/22/18 07:29; Start 07/19/18 at 16:00 Guaifenesin (Robitussin Dm) 10 ml QID PO Last administered on 07/21/18 19:35; Start 07/19/18 at 17:00 Temazepam (Restoril) 7.5 mg PRN QHS PRN PO INSOMNIA Last administered on 19:35; Start 07/19/18 at 14:45 Insulin Human Lispro (HumaLOG) 0-7 UNITS TIDWMEALS SQ Last administered on 07/22at 08:12; Start 07/19/18 at 17:00 Dextrose (Dextrose 50%-Water Syringe) 12.5 gm PRN Q15MIN PRN IV SEE COMMENTS; Start 07/19/18 at 14:45 Piperacillin Sod/ Tazobactam Sod 2.25 gm/Sodium Chloride 50 ml @ 100 mls/hr Q8H IV Last administered on 07/22/18 08:01; Start 07/19/18 at 16:00 Furosemide (Lasix) 40 mg 1X ONCE IVP Last administered on 07/19/18 14:52; Start 07/19/18 at 14:45; Stop 07/19/18 at 14:52; Status DC Docusate Sodium (Colace) 100 mg BID PO Last administered on 07/22/18 08:01; Start 07/19/18 at 21:00 Magnesium Hydroxide (Milk Of Magnesia) 2,400 mg PRN DAILY PRN PO CONSTIPATION; Start 07/19/18 at 19:45 Sodium Monofluorophosphate (Fleet Adult) 133 ml PRN DAILY PRN RC CONSTIPATION; Start 07/19/18 at 19:45 Bisacodyl (Dulcolax Supp) 10 mg PRN DAILY PRN NC CONSTIPATION; Start 07/19/18 at 19:45 Polyethylene Glycol (miraLAX PACKET) 17 gm BID PO Last administered on 19:36; Start 07/19/18 at 21:00 Sennosides (Senna) 8.6 mg DAILY PO Last administered on 07/21/18 08:37; Start 07/20/18 at 09:00 Lactobacillus Rhamnosus (Culturelle) 1 cap BID PO Last administered on 08:01; Start 07/20/18 at 21:00 Methylprednisolone Sodium Succinate (SOLU-Medrol 40MG VIAL) 40 mg Q8HRS IV Last administered on 07/22/18 05:10; Start 07/20/18 at 14:00 Albumin Human 250 ml @ 62.5 mls/hr PRN Q6HRS PRN IV for MAP < 65 Last administered on 07/21/18 20:45; Start 07/20/18 at 09:45 Magnesium Sulfate 50 ml @ 25 mls/hr PRN DAILY PRN IV for Mag < 1.7 on am labs; Start 07/20/18 at 09:45 Dopamine HCl/ Dextrose 250 ml @ 6.124 mls/ hr CONT PRN IV SEE I/O RECORD Last administered on 3/25/19at 20:44; Start 07/20/18 at 12:00 Sodium Chloride 1,000 ml @ 1,000 mls/hr Q1H PRN IV hypotension; Start 07/21/18 at 13:00; Stop 07/21/18 at 18:59; Status DC Sodium Chloride 1,000 ml @ 400 mls/hr Q2H30M PRN IV PATENCY; Start 07/21/18 at 13:00; Stop 07/22/18 at 00:59; Status DC Info (PHARMACY MONITORING -- do not chart) 1 each PRN DAILY PRN MC SEE COMMENTS ; Start 07/21/18 at 13:30; Status UNV Info (PHARMACY MONITORING -- do not chart) 1 each PRN DAILY PRN MC SEE COMMENTS ; Start 07/21/18 at 13:30 Albumin Human 100 ml @ 100 mls/hr 1X ONCE IV Last administered on 07/21/18at 14:00; Start 07/21/18 at 13:30; Stop 07/21/18 at 14:29; Status DC Active Scripts Active Levemir (Insulin Detemir) 100 Unit/1 Ml Vial 5 Unit SQ QHS 30 Days Hold for < 140mg/dL Acetaminophen 500 Mg Tablet 500 Mg PO PRN Q6HRS PRN 30 Days Aspirin 325 Mg Tablet 1 Tab PO DAILY Reported Senna (Sennosides) 8.6 Mg Tablet 8.6 Mg PO DAILY Novolog Flexpen (Insulin Aspart) 100 Unit/1 Ml Insuln.pen 1 Unit SQ TIDAC Miralax (Polyethylene Glycol 3350) 17 Gm Powd.pack 1 Packet PO BID Milk Of Magnesia (Magnesium Hydroxide) 400 Mg/5 Ml Oral.susp 30 Ml PO PRN DAILY Duoneb 0.5-3(2.5) Mg/3 Ml (Albuterol/Ipratropium) 3 Ml Ampul.neb 3 Ml NEB TID Fleet Enema (Na Phos,M-B/Na Phos,Di-Ba) 133 Ml Enema 1 Each RC PRN DAILY PRN Dulcolax (Bisacodyl) 10 Mg Supp.rect 10 Mg RC PRN DAILY PRN Docusate Sodium 100 Mg Capsule 1 Cap PO BID Carvedilol (Carvedilol) 12.5 Mg Tablet 12.5 Mg PO BIDWMEALS Protonix (Pantoprazole Sodium) 20 Mg Tablet.dr 40 Mg PO DAILY Voltaren (Diclofenac Sodium) 100 Gm Gel..gram. 1 Gm TP BID Zofran Odt (Ondansetron) 4 Mg Tab.rapdis 4 Mg PO Q6HRS PRN Sensipar (Cinacalcet Hcl) 30 Mg Tablet 1 Tab PO DAILY Renvela (Sevelamer Carbonate) 2.4 Gm Powd.pack 2.4 Gm PO TIDWMEALS Lumigan (Bimatoprost) 2.5 Ml Drops 1 Drop EACHEYE QHS Calcitriol 0.25 Mcg Capsule 1 Cap PO DAILY Nephro-Roland Tablet (Folic Acid/Vitamin B Comp W-C) 0.8 Mg Tablet 1 Tab PO DAILYBFRSUP Vitamin D (Cholecalciferol (Vitamin D3)) 2,000 Unit Capsule 1 Cap PO DAILY Vitals/I & O Vital Sign - Last 24 Hours 07/21/18 07/21/18 07/21/18 07/21/18 11:00 11:22 15:00 17:09 Temp 97.6 97.6 Pulse 68 82 Resp 18 B/P (MAP) 95/40 (58) 95/39 (57) Pulse Ox 98 98 O2 Delivery Nasal Cannula Nasal Cannula Room Air O2 Flow Rate 3.0 2.0 07/21/18 07/21/18 07/21/18 07/21/18 19:10 20:00 20:08 23:05 Temp 97.6 98.5 97.6 98.5 Pulse 77 73 Resp 20 18 B/P (MAP) 81/57 (65) 93/47 (62) Pulse Ox 96 99 94 O2 Delivery Nasal Cannula Nasal Cannula Nasal Cannula Nasal Cannula O2 Flow Rate 2.0 2.0 2.0 2.0 07/22/18 07/22/18 07/22/18 03:35 07:00 08:00 Temp 98.1 98.1 98.1 98.1 Pulse 81 76 Resp 18 20 B/P (MAP) 102/54 (70) 95/56 (69) Pulse Ox 96 97 O2 Delivery Nasal Cannula Nasal Cannula Nasal Cannula O2 Flow Rate 2.0 2.0 2.0 Intake and Output 07/21/18 07/21/18 07/22/18 14:59 22:59 06:59 Intake Total 240 ml 100 ml 220 ml Output Total 0 ml Balance 240 ml 100 ml 220 ml DAY ROSADO MD Jul 22, 2018 10:53
[2018-07-22 11:00] VITALS: BP 77/40
[2018-07-22] MEDS ORDERED: IV NORMAL SALINE 500ML BAG 500 ML IV ONE (11:15)
--- NOTE | 2018-07-22 11:28 | RAD ---
CT of the chest without contrast 07/22/2018 INDICATION: Pneumonia. COMPARISON STUDY: CT of the chest without contrast July 11, 2018. TECHNIQUE: Multidetector CT imaging of the chest was performed without contrast FINDINGS: Significant cardiomegaly again noted.. Severe diffuse coronary calcification is again noted. Ectasia of ascending thoracic aorta is seen. Diffuse vascular vascular disease noted. No significant pericardial effusion is identified. Pulmonary arteries are top normal in diameter. Findings can be associated with pulmonary hypertension in the appropriate setting. Scattered mild mediastinal adenopathy is unchanged. There is been interval development of small bilateral pleural effusions right greater than left. Underlying atelectasis is noted. Persistent mild consolidation in the right middle lobe and lower lobe is seen. Mild heterogenous attenuation of the lungs again noted. Mild areas of intralobular septal thickening are seen. 6 mm groundglass nodule in the right upper lobe is unchanged. Limited visualization of the upper abdomen demonstrates minimal perihepatic ascites no acute osseous changes are identified. Compression deformity of the T12 and L1 vertebra noted. This is unchanged. IMPRESSION: 1. Cardiomegaly and central vascular congestion with mild intralobular septal thickening and patchy ground glass opacification of the lungs. Interval development of small pleural effusions right greater than left, with underlying atelectasis. The appearance suggests mild congestive failure, however an atypical infectious process, or inflammatory etiology is possible. 2. 6 mm groundglass nodule, right lobe is unchanged. 6 month follow-up CT recommended CT DOSING PQRS STATEMENT: One or more of the following individualized dose reduction techniques were utilized for this examination: 1. Automated exposure control 2. Adjustment of the mA and/or kV according to patient size 3. Use of iterative reconstruction technique Electronically signed by: Wally Rascon MD (07/22/2018 11:26 AM) [id number]
[2018-07-22] MEDS ORDERED: DIGOXIN 125 MCG TABLET. PO ONE (12:00)
--- NOTE | 2018-07-22 12:15 | PDOC ---
Renal-Progress Notes Subjective Notes Notes TIRED History of Present Illness Hx of present illness NO CHANGE Vitals Vitals Vital Signs Date Time Temp Pulse Resp B/P (MAP) Pulse Ox O2 Delivery O2 Flow Rate FiO2 07/22/18 11:00 98.0 72 18 77/40 (52) 96 Nasal Cannula 2.0 98.0 Weight Weight [ ] I.O. Intake and Output Intake and Output 07/22/18 06:59 Intake Total 560 ml Output Total 0 ml Balance 560 ml Intake Oral 560 ml Output Urine Total 0 ml # Bowel Movements 1 Labs Labs Laboratory Tests Test 07/21/18 16:32 07/21/18 17:50 07/21/18 20:53 07/22/18 05:05 Glucose (Fingerstick) 156 mg/dL (70-99) 201 mg/dL (70-99) 240 mg/dL (70-99) White Blood Count 12.2 x10^3/uL (4.0-11.0) Red Blood Count 3.16 x10^6/uL (3.50-5.40) Hemoglobin 10.8 g/dL (12.0-15.5) Hematocrit 32.7 % (36.0-47.0) Mean Corpuscular Volume 103 fL (79-100) Mean Corpuscular Hemoglobin 34 pg (25-35) Mean Corpuscular Hemoglobin Concent 33 g/dL (31-37) Red Cell Distribution Width 15.4 % (11.5-14.5) Platelet Count 138 x10^3/uL (140-400) Neutrophils (%) (Auto) 90 % (31-73) Lymphocytes (%) (Auto) 4 % (24-48) Monocytes (%) (Auto) 5 % (0-9) Eosinophils (%) (Auto) 0 % (0-3) Basophils (%) (Auto) 1 % (0-3) Neutrophils # (Auto) 10.9 x10^3uL (1.8-7.7) Lymphocytes # (Auto) 0.5 x10^3/uL (1.0-4.8) Monocytes # (Auto) 0.6 x10^3/uL (0.0-1.1) Eosinophils # (Auto) 0.0 x10^3/uL (0.0-0.7) Basophils # (Auto) 0.1 x10^3/uL (0.0-0.2) Sodium Level 135 mmol/L (136-145) Potassium Level 4.3 mmol/L (3.5-5.1) Chloride Level 95 mmol/L (98-107) Carbon Dioxide Level 27 mmol/L (21-32) Anion Gap 13 (6-14) Blood Urea Nitrogen 34 mg/dL (7-20) Creatinine 4.1 mg/dL (0.6-1.0) Estimated GFR (Cockcroft-Gault) 10.3 Glucose Level 328 mg/dL (70-99) Calcium Level 7.9 mg/dL (8.5-10.1) Phosphorus Level 4.0 mg/dL (2.6-4.7) Magnesium Level 2.6 mg/dL (1.8-2.4) Albumin 3.1 g/dL (3.4-5.0) Test 07/22/18 07:12 07/22/18 11:26 Glucose (Fingerstick) 297 mg/dL (70-99) 252 mg/dL (70-99) Review of Systems Constitutional: yes: weakness, alert Ears/Nose/Throat: Yes: dysphagia Cardiovascular: Yes no symptom reported Gastrointestional: Yes: constipation Genitourinary: Yes: no symptom reported Musculoskeletal: Yes: muscle stiffness Skin: Yes no symptom reported Psychiatric/Neurological: Yes: no symptom reported Endocrine: Yes: no symptom reported Physical Exam General Appearance: no apparent distress Skin: warm Respiratory: decreased breath sounds Heart: S1S2, RRR Abdomen: soft Genitourinary: bladder flat, no mass Extremities: pulses present, no edema, atrophy Neurology: alert, oriented, follow commands Assessment Assessment IMP HYPOTENSION MILD HYPERVOLEMIA-RESOLVED ESRD-TTS ANEMIA DECONDITIONING DM II PLAN NO HD TODAY NEXT HD ON SATURDAY FLUID BOLUS D/W CARDIOLOGY NANCY NICHOLSON MD Jul 22, 2018 12:15
--- NOTE | 2018-07-22 12:44 | PDOC2 ---
PALLIATIVE CARE Palliative Care Note Palliative Care Consult requested by Dr. Ortega to address goals of care Patient know to PC from previous admission. Medical Assessment per medical record; SOA, fluid overload-cannot rule out HCAP ESRD on dialysis-did not finish dialysis Existing AV fistula with good bruit Hypotension, Anemia of chronic disease Generalized weakness [facility] resident Diabetes type 2 on low-dose insulin symptomatic with lethargy hypotension Patient on Dopamine gtt B/P 70's. Encourage fluids Patient more alert. Denies pain or SOB Patient wants to continue with full aggressive care including dialysis and management of cardiac conditions. Daughter from [facility]. at bedside. Code Status; DNR/DNI confirmed. Spoke with Dr. Jiang and Cardiology [employer]. Addition/adjustment made to medications. No dialysis today or tomorrow. Will confirm plan when daughter arrives. 1430 Spoke with family (, daughter, son). Reviewed medical condition and plans from cardiology and nephrology. Family wants to continue current treatment plan. HARRISON STUART Jul 22, 2018 12:44
[2018-07-22] MEDS: MIDODRINE 2.5 MG TABLET PO SCH ×2 (14:12→19:07)
[2018-07-22 15:00] VITALS: BP 93/41
[2018-07-22] MEDS ORDERED: ACET325T9 PO (15:15)
[2018-07-22] MEDS ORDERED: AMLO10TA8 PO (15:15)
[2018-07-22] MEDS: FOLIC/VIT B COMP W-C (RENAL) TABLET. PO SCH (17:16)
[2018-07-22 19:00] VITALS: BP 95/45
--- NOTE | 2018-07-22 19:57 | NUR ---
This RN spoke with Dr Nair. Smith to do an over the wire exchange to secure double lumen PICC. Patient currently has single lumen PICC now. RN notified [employer] for contact to [facility].
[2018-07-22] MEDS: LATANOPROST 0.005% OPHTH SOLUTION 2.5ML BOTTLE. OU SCH (20:41)
[2018-07-22] MEDS: TEMAZEPAM 7.5 MG CAPSULE PO PRN (20:42)
[2018-07-22] MEDS: INSULIN GLARGINE 300 UNITS/3 ML INSULN.PEN. SQ SCH (20:44)
[2018-07-22 23:00] VITALS: BP 93/63
--- NOTE | 2018-07-22 23:15 | CONS ---
DATE OF CONSULTATION: 07/22/2018 REFERRING PHYSICIAN: Dr. Ortega. REASON FOR CONSULTATION: Pneumonitis. HISTORY OF PRESENT ILLNESS: An 87-year-old female with history of end-stage renal disease, on hemodialysis, who missed her dialysis session, presented to the ER on 07/19/2018 with difficulty breathing week prior to admission and was found to have low blood pressure while at dialysis the same day. The patient was recently treated for pneumonia. She denied any fevers or chills. She is a custodial resident. The patient had leukocytosis with a high BNP. Influenza screen was negative. Chest x-ray showed mild linear atelectasis or fibrotic change of the mid left hemothorax. There is enlargement of the pericardial cardiac silhouette. The patient was admitted with a working diagnosis of CHF. She also had some wheezing. Pulmonary was consulted. She was started on IV Zosyn and received Solu-Medrol. Recent CT on 07/11 had suggested upper lobe viral pneumonitis with ground-glass infiltrate at that time. ID consult has been requested for antibiotic management. Today, the patient says she is feeling better, still has some cough. Breathing has improved. No wheezing. Denies any fevers, chills, nausea, vomiting, diarrhea, abdominal pain, headache, visual disturbances, oral sores, difficulty swallowing, focal weakness. PAST MEDICAL HISTORY: End-stage renal disease, on hemodialysis through right upper extremity fistula; hyperparathyroidism; diabetes; history of UTIs; history of CHF; secondary pulmonary hypertension; coronary artery disease; cardiomyopathy, status post CABG. FAMILY HISTORY: As per HPI. SOCIAL HISTORY: Denies smoking, ETOH, or illicit drug use. [facility] resident. ALLERGIES: MORPHINE. CURRENT MEDICATIONS: Zosyn. Other medications reviewed in medication list. REVIEW OF SYSTEMS: Negative except for above in HPI. PHYSICAL EXAMINATION: VITAL SIGNS: Temperature 98.1, pulse 76, respiration rate 20, blood pressure 95/56, oxygen saturation 97% on 2 liters nasal cannula. GENERAL: Alert, oriented x 3 female, lying in bed comfortably, in no acute distress, cooperative. HEENT: Normocephalic, atraumatic, anicteric. No thrush. Oral mucosa moist. NECK: Supple. No JVD. LUNGS: A few expiratory wheezing. HEART: S1, S2. No gallops or murmurs. ABDOMEN: Soft, obese. Bowel sounds present. EXTREMITIES: No edema, no cyanosis. DERMATOLOGIC: No generalized rash. Chronic skin changes present in both lower extremities. No evidence of infection. Right upper extremity fistula site looks okay. CENTRAL NERVOUS SYSTEM: Alert and oriented. Grossly nonfocal. LABORATORY DATA: Reviewed. Influenza screen negative. WBC 12.2, hemoglobin 10.8, hematocrit 32.7, platelets 138. Sodium 135, potassium 4.3, chloride 95, bicarbonate 27, BUN 34, creatinine 4.1, glucose 328. BNP is greater than 35,000. MRSA screen negative. MICROBIOLOGY: None. IMAGING: CT chest pending at this time. Chest x-ray shows the tip of the left arm PICC overlies SVC and right atrial junction. Left lower lobe atelectasis and/or infiltrate is noted. No pneumothorax or pleural effusion is seen. Atherosclerotic calcification of the thoracic aorta is seen. IMPRESSION: 1. Dyspnea with cough and bronchospasm with recent viral pneumonia with possible secondary infection, also had high BNP. 2. Hypotensive during dialysis. 3. Leukocytosis, on steroids. 4. End-stage renal disease, on hemodialysis. 5. Obesity. 6. Chronic hypoxic respiratory failure, on home O2 at 2 liters. 7. Anemia of chronic kidney disease. RECOMMENDATIONS: 1. Continue Zosyn. 2. Follow up CT chest. 3. We will deescalate soon. 4. Continue supportive care. 5. Follow up labs and cultures. 6. Discussed with RN. Thank you for consulting Infectious Diseases to participate in this patient's care. CHRISTOPH MOY MD DR: NENO/regan JOB#: [id number] / [id number]
[2018-07-23] VITALS (12 sets, daily range): BP systolic 70–138; BP diastolic 42–84
--- NOTE | 2018-07-23 03:15 | RAD ---
AP portable chest radiograph 07/23/2018 Clinical History: Post PICC line placement. An AP erect portable digital radiograph of the chest was obtained. Comparison study is dated 07/21/2018. The left arm PICC has apparently been replaced. The tip of the catheter extends to overlie the SVC/right atrial junction. The patient is post CABG procedure. The cardiac silhouette is mild to moderately enlarged. Atherosclerotic calcification of the thoracic aorta is seen. The thoracic aorta is tortuous. Prominence of pulmonary vasculature is seen involving both lungs consistent with CHF essentially unchanged. Left midlung subsegmental atelectasis and left lower lobe subsegmental atelectasis is again seen. There are probable small bilateral pleural effusions. No pneumothorax is seen. The osseous structures are unchanged. Impression: The tip of the left arm PICC extends to overlie the SVC/right atrial junction. Electronically signed by: Wes Maddox MD (07/23/2018 3:11 AM) [id number]
[2018-07-23] MEDS: methylPREDNISolone SOD SUCC PF 40 MG/ML VIAL. IV SCH ×3 (05:22→21:49)
[2018-07-23] MEDS: MIDODRINE 2.5 MG TABLET PO SCH ×3 (05:24→17:57)
[2018-07-23 05:41] LABS: BASO % 0 % (0-3); EOS % 0 % (0-3); HEMATOCRIT 36.5 % (36.0-47.0); HEMOGLOBIN 11.6 g/dL (12.0-15.5); LYMPH # 0.6 x10^3/uL (1.0-4.8); LYMPH % 4 % (24-48); MEAN CORPUSCULAR HEMOGLOBIN 33 pg (25-35); MEAN CORPUSCULAR HGB CONC 32 g/dL (31-37); MEAN CORPUSCULAR VOLUME 104 fL (79-100); MONO # 0.4 x10^3/uL (0.0-1.1); MONO % 3 % (0-9); NEUT # 11.7 x10^3uL (1.8-7.7); NEUT % 92 % (31-73); PLATELET COUNT 143 x10^3/uL (140-400); RED BLOOD COUNT 3.51 x10^6/uL (3.50-5.40); WHITE BLOOD COUNT 12.7 x10^3/uL (4.0-11.0)
[2018-07-23 05:53] LABS: ALBUMIN 2.7 g/dL (3.4-5.0); CALCIUM 8.2 mg/dL (8.5-10.1); CREATININE 4.7 mg/dL (0.6-1.0); GFR 8.8; MAGNESIUM 2.7 mg/dL (1.8-2.4); PHOSPHORUS 3.5 mg/dL (2.6-4.7); POTASSIUM 4.6 mmol/L (3.5-5.1)
[2018-07-23] MEDS: IPRATRPIUM/ALBUTEROL 0.5/2.5MG 3 ML NEBU. NEB SCH ×4 (07:42→19:52)
[2018-07-23] MEDS: CALCITRIOL 0.25 MCG CAPSULE. PO SCH (08:34)
[2018-07-23] MEDS: LACTOBACILLUS RHAMNOSUS GG 1 CAPSULE. PO SCH ×2 (08:34→21:48)
[2018-07-23] MEDS: CINACALCET HCL 30 MG TABLET PO SCH (08:34)
[2018-07-23] MEDS: DOCUSATE SODIUM 100 MG CAPSULE. PO SCH ×2 (08:34→21:48)
[2018-07-23] MEDS: PANTOPRAZOLE 40 MG TABLET.DR. PO SCH (08:35)
[2018-07-23] MEDS: ASPIRIN 325 MG TABLET PO SCH (08:35)
[2018-07-23] MEDS: CHOLECALCIFEROL (VITAMIN D3) 1,000 UNIT TABLET PO SCH (08:35)
[2018-07-23] MEDS: PIPERACILLIN/TAZOBACTAM 2.25 GM in IV NORMAL SALINE 50ML 50 ML IV SCH ×2 (08:36→15:49)
[2018-07-23] MEDS: SEVELAMER CARBONATE 2.4 GM PACKET. PO SCH ×3 (08:37→17:58)
[2018-07-23] MEDS: INSULIN LISPRO 300 UNITS/3 ML INSULN.PEN. SQ SCH ×3 (08:37→18:06)
[2018-07-23] MEDS: guaiFENesin DM 200MG/20MG 10 ML SYRUP PO SCH ×4 (08:38→21:00)
[2018-07-23] MEDS: SENNOSIDES 8.6 MG TABLET PO SCH (08:38)
[2018-07-23] MEDS: POLYETHYLENE GLYCOL 3350 17 GM PACKET. PO SCH ×2 (08:42→21:00)
--- NOTE | 2018-07-23 08:57 | PDOC ---
Infectious Disease Note Subjective: Subjective Pt without complaints still has some cough no fever or chills ROS: ROS Negative except for above. Vital Signs: Vital Signs Vital Signs Date Time Temp Pulse Resp B/P (MAP) Pulse Ox O2 Delivery O2 Flow Rate FiO2 07/23/18 07:42 95 Room Air 07/23/18 07:00 98.2 82 18 112/48 (69) 2.0 98.2 Physical Exam: PHYSICAL EXAM GENERAL: Alert, oriented x 3 female, lying in bed comfortably, in no acute distress, cooperative. HEENT: Normocephalic, atraumatic, anicteric. No thrush. Oral mucosa moist. NECK: Supple. No JVD. LUNGS: A few expiratory wheezing. HEART: S1, S2. No gallops or murmurs. ABDOMEN: Soft, obese. Bowel sounds present. EXTREMITIES: No edema, no cyanosis. DERMATOLOGIC: No generalized rash. Chronic skin changes present in both lower extremities. No evidence of infection. Right upper extremity fistula site looks okay. CENTRAL NERVOUS SYSTEM: Alert and oriented. Grossly nonfocal. Medications: Inpatient Meds: Current Medications Medications (Trade) Dose Ordered Sig/Homa Start Time Stop Time Status Last Admin Dose Admin Acetaminophen (Tylenol) 500 mg PRN Q6HRS PRN 07/19/18 14:45 Albumin Human 100 ml @ 100 mls/hr 1X ONCE 07/21/18 13:30 07/21/18 14:29 DC 07/21/18 14:00 100 MLS/HR Albuterol/ Ipratropium (Duoneb) 3 ml RTQID 07/19/18 16:00 07/23/18 07:42 3 ML Aspirin (Tracee Aspirin) 325 mg DAILY 07/19/18 15:00 07/23/18 08:35 325 MG Bisacodyl (Dulcolax Supp) 10 mg PRN DAILY PRN 07/19/18 19:45 Calcitriol (Rocaltrol) 0.25 mcg DAILY 07/20/18 09:00 07/23/18 08:34 0.25 MCG Carvedilol (Coreg) 3.125 mg BIDWMEALS 07/19/18 17:00 07/19/18 19:42 DC Cinacalcet (Sensipar) 30 mg DAILY 07/19/18 15:00 07/23/18 08:34 30 MG Dextrose (Dextrose 50%-Water Syringe) 12.5 gm PRN Q15MIN PRN 07/19/18 14:45 Diclofenac Sodium (Voltaren) 1 grisel BID 07/19/18 21:00 07/22/18 20:42 1 GRISEL Digoxin (Lanoxin) 125 mcg 1X ONCE 07/22/18 12:00 07/22/18 12:01 DC 07/22/18 12:26 125 MCG Docusate Sodium (Colace) 100 mg BID 07/19/18 21:00 07/23/18 08:34 100 MG Dopamine HCl/ Dextrose 250 ml @ 6.124 mls/ hr CONT PRN 07/20/18 12:00 07/22/18 17:13 15.309 MLS/HR Fentanyl (Duragesic 12mcg/ Hr Patch) 1 patch Q3DAYS 07/19/18 15:00 07/19/18 19:42 DC Furosemide (Lasix) 40 mg 1X ONCE 07/19/18 14:45 07/19/18 14:52 DC 07/19/18 14:52 40 MG Guaifenesin (Robitussin Dm) 10 ml QID 07/19/18 17:00 07/22/18 20:42 10 ML Hydromorphone HCl (Dilaudid) 2 mg PRN Q8HRS PRN 07/19/18 15:00 07/20/18 09:31 DC Info (PHARMACY MONITORING -- do not chart) 1 each PRN DAILY PRN 07/21/18 13:30 Insulin Glargine (Lantus) 5 units QHS 07/19/18 21:00 07/22/18 20:44 5 UNITS Insulin Human Lispro (HumaLOG) 0-7 UNITS TIDWMEALS 07/19/18 17:00 07/23/18 08:37 7 UNITS Lactobacillus Rhamnosus (Culturelle) 1 cap BID 07/20/18 21:00 07/23/18 08:34 1 CAP Latanoprost (Xalatan) 1 drop QHS 07/19/18 21:00 07/22/18 20:41 1 DROP Magnesium Hydroxide (Milk Of Magnesia) 2,400 mg PRN DAILY PRN 07/19/18 19:45 Magnesium Sulfate 50 ml @ 25 mls/hr PRN DAILY PRN 07/20/18 09:45 Methylprednisolone Sodium Succinate (SOLU-Medrol 40MG VIAL) 40 mg Q8HRS 07/20/18 14:00 07/23/18 05:22 40 MG Midodrine (Proamatine) 2.5 mg [id number] 07/22/18 13:00 07/23/18 05:24 2.5 MG Nitroglycerin (Nitrostat) 0.4 mg PRN Q5MIN PRN 07/19/18 14:30 07/20/18 14:29 DC Non-Formulary Medication (Latanoprost/Pf (Latanoprost 0.005% Eye Drop)) 7.5 ml QHS 07/19/18 21:00 UNV Ondansetron HCl (Zofran Odt) 4 mg PRN Q6HRS PRN 07/19/18 14:45 Ondansetron HCl (Zofran) 4 mg PRN Q8HRS PRN 07/19/18 14:30 07/20/18 14:29 DC Pantoprazole Sodium (Protonix) 40 mg DAILYAC 07/20/18 07:30 07/23/18 08:35 40 MG Piperacillin Sod/ Tazobactam Sod (Zosyn Per Pharmacy) 1 each PRN DAILY PRN 07/19/18 14:45 Piperacillin Sod/ Tazobactam Sod 2.25 gm/Sodium Chloride 50 ml @ 100 mls/hr Q8H 07/19/18 16:00 07/23/18 08:36 100 MLS/HR Polyethylene Glycol (miraLAX PACKET) 17 gm BID 07/19/18 21:00 07/23/18 08:42 17 GM Sennosides (Senna) 8.6 mg DAILY 07/20/18 09:00 07/21/18 08:37 8.6 MG Sevelamer Carbonate (Renvela) 2.4 gm TIDWMEALS 07/19/18 17:00 07/23/18 08:37 2.4 GM Sodium Monofluorophosphate (Fleet Adult) 133 ml PRN DAILY PRN 07/19/18 19:45 07/22/18 12:17 DC Sodium Chloride 500 ml @ 500 mls/hr 1X ONCE 07/22/18 11:15 07/22/18 12:14 DC 07/22/18 11:14 500 MLS/HR Temazepam (Restoril) 7.5 mg PRN QHS PRN 07/19/18 14:45 07/22/18 20:42 7.5 MG Vitamin B Complex/ Vitamin C (Bela-Roland) 1 tab DAILYBFRSUP 07/19/18 17:00 07/22/18 17:16 1 TAB Vitamin D (Vitamin D3) 1,000 unit DAILY 07/20/18 09:00 07/23/18 08:35 1,000 UNIT Labs: Lab Laboratory Tests Test 07/22/18 11:26 07/22/18 16:33 07/22/18 20:35 07/23/18 05:20 Glucose (Fingerstick) 252 mg/dL (70-99) 272 mg/dL (70-99) 275 mg/dL (70-99) White Blood Count 12.7 x10^3/uL (4.0-11.0) Red Blood Count 3.51 x10^6/uL (3.50-5.40) Hemoglobin 11.6 g/dL (12.0-15.5) Hematocrit 36.5 % (36.0-47.0) Mean Corpuscular Volume 104 fL (79-100) Mean Corpuscular Hemoglobin 33 pg (25-35) Mean Corpuscular Hemoglobin Concent 32 g/dL (31-37) Red Cell Distribution Width 16.0 % (11.5-14.5) Platelet Count 143 x10^3/uL (140-400) Neutrophils (%) (Auto) 92 % (31-73) Lymphocytes (%) (Auto) 4 % (24-48) Monocytes (%) (Auto) 3 % (0-9) Eosinophils (%) (Auto) 0 % (0-3) Basophils (%) (Auto) 0 % (0-3) Neutrophils # (Auto) 11.7 x10^3uL (1.8-7.7) Lymphocytes # (Auto) 0.6 x10^3/uL (1.0-4.8) Monocytes # (Auto) 0.4 x10^3/uL (0.0-1.1) Eosinophils # (Auto) 0.0 x10^3/uL (0.0-0.7) Basophils # (Auto) 0.0 x10^3/uL (0.0-0.2) Sodium Level 131 mmol/L (136-145) Potassium Level 4.6 mmol/L (3.5-5.1) Chloride Level 92 mmol/L (98-107) Carbon Dioxide Level 27 mmol/L (21-32) Anion Gap 12 (6-14) Blood Urea Nitrogen 52 mg/dL (7-20) Creatinine 4.7 mg/dL (0.6-1.0) Estimated GFR (Cockcroft-Gault) 8.8 Glucose Level 338 mg/dL (70-99) Calcium Level 8.2 mg/dL (8.5-10.1) Phosphorus Level 3.5 mg/dL (2.6-4.7) Magnesium Level 2.7 mg/dL (1.8-2.4) Albumin 2.7 g/dL (3.4-5.0) Test 07/23/18 08:15 Glucose (Fingerstick) 304 mg/dL (70-99) Objective: Assessment: 1. Dyspnea with cough and bronchospasm with recent viral pneumonia with possible secondary infection, also had high BNP. 2. Hypotensive during dialysis. on dopamine 3. Leukocytosis, on steroids. 4. End-stage renal disease, on hemodialysis. 5. Obesity. 6. Chronic hypoxic respiratory failure, on home O2 at 2 liters. 7. Anemia of chronic kidney disease. Plan: Plan of Care CONT Zosyn for now, deescalate soon Elevate LUE Continue supportive care. Follow up labs and cultures. D/W family at bedside CHRISTOPH MOY MD Jul 23, 2018 08:57
[2018-07-23] MEDS: DICLOFENAC SODIUM 1% TOPICAL GEL 100GM TUBE. TP SCH ×2 (09:00→21:49)
--- NOTE | 2018-07-23 09:20 | PDOC ---
PULMONARY PROGRESS NOTES Subjective PT NOT MORE SOA UPPE EXT SWELLING ON LEFT DAUGHTER CONCERNED NOT DIZZY ON DOPAMINE FOR HYPOTENSION Vitals Vital Signs Date Time Temp Pulse Resp B/P (MAP) Pulse Ox O2 Delivery O2 Flow Rate FiO2 07/23/18 07:42 95 Room Air 07/23/18 07:00 98.2 82 18 112/48 (69) 2.0 98.2 ROS: No Nausea, No Chest Pain, No Abdominal Pain, No Increase Cough General: Alert, No acute distress Lungs: Wheezing, Crackles (less crackles) Cardiovascular: S1, S2 Abdomen: Soft Neuro Exam: Alert Extremities: Other (EDEMA L) Skin: Warm Labs Laboratory Tests Test 07/21/18 11:41 07/21/18 16:32 07/21/18 17:50 07/21/18 20:53 Glucose (Fingerstick) 285 mg/dL (70-99) 156 mg/dL (70-99) 201 mg/dL (70-99) 240 mg/dL (70-99) Test 07/22/18 05:05 07/22/18 07:12 07/22/18 11:26 07/22/18 16:33 White Blood Count 12.2 x10^3/uL (4.0-11.0) Red Blood Count 3.16 x10^6/uL (3.50-5.40) Hemoglobin 10.8 g/dL (12.0-15.5) Hematocrit 32.7 % (36.0-47.0) Mean Corpuscular Volume 103 fL (79-100) Mean Corpuscular Hemoglobin 34 pg (25-35) Mean Corpuscular Hemoglobin Concent 33 g/dL (31-37) Red Cell Distribution Width 15.4 % (11.5-14.5) Platelet Count 138 x10^3/uL (140-400) Neutrophils (%) (Auto) 90 % (31-73) Lymphocytes (%) (Auto) 4 % (24-48) Monocytes (%) (Auto) 5 % (0-9) Eosinophils (%) (Auto) 0 % (0-3) Basophils (%) (Auto) 1 % (0-3) Neutrophils # (Auto) 10.9 x10^3uL (1.8-7.7) Lymphocytes # (Auto) 0.5 x10^3/uL (1.0-4.8) Monocytes # (Auto) 0.6 x10^3/uL (0.0-1.1) Eosinophils # (Auto) 0.0 x10^3/uL (0.0-0.7) Basophils # (Auto) 0.1 x10^3/uL (0.0-0.2) Sodium Level 135 mmol/L (136-145) Potassium Level 4.3 mmol/L (3.5-5.1) Chloride Level 95 mmol/L (98-107) Carbon Dioxide Level 27 mmol/L (21-32) Anion Gap 13 (6-14) Blood Urea Nitrogen 34 mg/dL (7-20) Creatinine 4.1 mg/dL (0.6-1.0) Estimated GFR (Cockcroft-Gault) 10.3 Glucose Level 328 mg/dL (70-99) Calcium Level 7.9 mg/dL (8.5-10.1) Phosphorus Level 4.0 mg/dL (2.6-4.7) Magnesium Level 2.6 mg/dL (1.8-2.4) Albumin 3.1 g/dL (3.4-5.0) Glucose (Fingerstick) 297 mg/dL (70-99) 252 mg/dL (70-99) 272 mg/dL (70-99) Test 07/22/18 20:35 07/23/18 05:20 07/23/18 08:15 Glucose (Fingerstick) 275 mg/dL (70-99) 304 mg/dL (70-99) White Blood Count 12.7 x10^3/uL (4.0-11.0) Red Blood Count 3.51 x10^6/uL (3.50-5.40) Hemoglobin 11.6 g/dL (12.0-15.5) Hematocrit 36.5 % (36.0-47.0) Mean Corpuscular Volume 104 fL (79-100) Mean Corpuscular Hemoglobin 33 pg (25-35) Mean Corpuscular Hemoglobin Concent 32 g/dL (31-37) Red Cell Distribution Width 16.0 % (11.5-14.5) Platelet Count 143 x10^3/uL (140-400) Neutrophils (%) (Auto) 92 % (31-73) Lymphocytes (%) (Auto) 4 % (24-48) Monocytes (%) (Auto) 3 % (0-9) Eosinophils (%) (Auto) 0 % (0-3) Basophils (%) (Auto) 0 % (0-3) Neutrophils # (Auto) 11.7 x10^3uL (1.8-7.7) Lymphocytes # (Auto) 0.6 x10^3/uL (1.0-4.8) Monocytes # (Auto) 0.4 x10^3/uL (0.0-1.1) Eosinophils # (Auto) 0.0 x10^3/uL (0.0-0.7) Basophils # (Auto) 0.0 x10^3/uL (0.0-0.2) Sodium Level 131 mmol/L (136-145) Potassium Level 4.6 mmol/L (3.5-5.1) Chloride Level 92 mmol/L (98-107) Carbon Dioxide Level 27 mmol/L (21-32) Anion Gap 12 (6-14) Blood Urea Nitrogen 52 mg/dL (7-20) Creatinine 4.7 mg/dL (0.6-1.0) Estimated GFR (Cockcroft-Gault) 8.8 Glucose Level 338 mg/dL (70-99) Calcium Level 8.2 mg/dL (8.5-10.1) Phosphorus Level 3.5 mg/dL (2.6-4.7) Magnesium Level 2.7 mg/dL (1.8-2.4) Albumin 2.7 g/dL (3.4-5.0) Laboratory Tests Test 07/22/18 11:26 07/22/18 16:33 07/22/18 20:35 07/23/18 05:20 Glucose (Fingerstick) 252 mg/dL (70-99) 272 mg/dL (70-99) 275 mg/dL (70-99) White Blood Count 12.7 x10^3/uL (4.0-11.0) Red Blood Count 3.51 x10^6/uL (3.50-5.40) Hemoglobin 11.6 g/dL (12.0-15.5) Hematocrit 36.5 % (36.0-47.0) Mean Corpuscular Volume 104 fL (79-100) Mean Corpuscular Hemoglobin 33 pg (25-35) Mean Corpuscular Hemoglobin Concent 32 g/dL (31-37) Red Cell Distribution Width 16.0 % (11.5-14.5) Platelet Count 143 x10^3/uL (140-400) Neutrophils (%) (Auto) 92 % (31-73) Lymphocytes (%) (Auto) 4 % (24-48) Monocytes (%) (Auto) 3 % (0-9) Eosinophils (%) (Auto) 0 % (0-3) Basophils (%) (Auto) 0 % (0-3) Neutrophils # (Auto) 11.7 x10^3uL (1.8-7.7) Lymphocytes # (Auto) 0.6 x10^3/uL (1.0-4.8) Monocytes # (Auto) 0.4 x10^3/uL (0.0-1.1) Eosinophils # (Auto) 0.0 x10^3/uL (0.0-0.7) Basophils # (Auto) 0.0 x10^3/uL (0.0-0.2) Sodium Level 131 mmol/L (136-145) Potassium Level 4.6 mmol/L (3.5-5.1) Chloride Level 92 mmol/L (98-107) Carbon Dioxide Level 27 mmol/L (21-32) Anion Gap 12 (6-14) Blood Urea Nitrogen 52 mg/dL (7-20) Creatinine 4.7 mg/dL (0.6-1.0) Estimated GFR (Cockcroft-Gault) 8.8 Glucose Level 338 mg/dL (70-99) Calcium Level 8.2 mg/dL (8.5-10.1) Phosphorus Level 3.5 mg/dL (2.6-4.7) Magnesium Level 2.7 mg/dL (1.8-2.4) Albumin 2.7 g/dL (3.4-5.0) Test 07/23/18 08:15 Glucose (Fingerstick) 304 mg/dL (70-99) Medications Active Scripts Medications Dose Route/Sig Max Daily Dose Days Date Category Dose Instructions Senna (Sennosides) 8.6 Mg Tablet 8.6 Mg PO DAILY 07/19/18 Reported Novolog Flexpen (Insulin Aspart) 100 Unit/1 Ml Insuln.pen 1 Unit SQ TIDAC 07/19/18 Reported Miralax (Polyethylene Glycol 3350) 17 Gm Powd.pack 1 Packet PO BID 07/19/18 Reported Milk Of Magnesia (Magnesium Hydroxide) 400 Mg/5 Ml Oral.susp 30 Ml PO PRN DAILY 07/19/18 Reported Duoneb 0.5-3(2.5) Mg/3 Ml (Albuterol/Ipratropium) 3 Ml Ampul.neb 3 Ml NEB TID 07/19/18 Reported Fleet Enema (Na Phos,M-B/Na Phos,Di-Ba) 133 Ml Enema 1 Each RC PRN DAILY PRN 07/19/18 Reported Dulcolax (Bisacodyl) 10 Mg Supp.rect 10 Mg RC PRN DAILY PRN 07/19/18 Reported Docusate Sodium 100 Mg Capsule 1 Cap PO BID 07/19/18 Reported Carvedilol (Carvedilol) 12.5 Mg Tablet 12.5 Mg PO BIDWMEALS 07/19/18 Reported Levemir (Insulin Detemir) 100 Unit/1 Ml Vial 5 Unit SQ QHS 30 07/15/18 Rx Hold for < 140mg/dL Acetaminophen 500 Mg Tablet 500 Mg PO PRN Q6HRS PRN 30 07/14/18 Rx Aspirin 325 Mg Tablet 1 Tab PO DAILY 04/16/18 Rx Protonix (Pantoprazole Sodium) 20 Mg Tablet.dr 40 Mg PO DAILY 11/06/17 Reported Voltaren (Diclofenac Sodium) 100 Gm Gel..gram. 1 Gm TP BID 11/06/17 Reported Zofran Odt (Ondansetron) 4 Mg Tab.rapdis 4 Mg PO Q6HRS PRN 10/30/17 Reported Sensipar (Cinacalcet Hcl) 30 Mg Tablet 1 Tab PO DAILY 02/04/17 Reported Renvela (Sevelamer Carbonate) 2.4 Gm Powd.pack 2.4 Gm PO TIDWMEALS 02/04/17 Reported Lumigan (Bimatoprost) 2.5 Ml Drops 1 Drop EACHEYE QHS 02/04/17 Reported Calcitriol 0.25 Mcg Capsule 1 Cap PO DAILY 01/18/17 Reported Nephro-Roland Tablet (Folic Acid/Vitamin B Comp W-C) 0.8 Mg Tablet 1 Tab PO DAILYBFRSUP 11/26/15 Reported Vitamin D (Cholecalciferol (Vitamin D3)) 2,000 Unit Capsule 1 Cap PO DAILY 11/26/15 Reported Impression . IMPRESSION: 1. Dyspnea with cough and mild bronchospasm, likely related to viral pneumonitis, triggering bronchospasm. She may have adult onset reactive airway disease. 2. Recent abnormal CT chest on 07/11 suggesting upper lobe viral pneumonitis. She has some ground glass infiltrates at that time. 3. End-stage renal disease, on hemodialysis. 4. Underlying obesity. 5. Chronic hypoxic respiratory failure, on home oxygen 2 liters. 6 HYPOTENSION 7. LEONIE EXT EDEMA Plan . WILL RULE OUT DVT UPPER EXT PRESSORS CONTINUE THE SAME SPOKE WITH PALLIATIVE CARE D/W DAUGHTER AT BEDSIDE JULIANE MILLER MD Jul 23, 2018 09:20
--- NOTE | 2018-07-23 09:28 | PDOC ---
CARDIO Progress Notes Date and Time Date of Service 07/23/2018 Time of Evaluation 0910 Subjective Subjective: No Chest Pain, No shortness of breath, No Palpitations Vitals Vitals Vital Signs Date Time Temp Pulse Resp B/P (MAP) Pulse Ox O2 Delivery O2 Flow Rate FiO2 07/23/18 07:42 95 Room Air 07/23/18 07:00 98.2 82 18 112/48 (69) 2.0 98.2 Weight Weight [ ] Input and Output Intake and Output Intake and Output 07/23/18 07:00 Intake Total 120 ml Output Total 0 ml Balance 120 ml Intake Oral 120 ml Output Urine Total 0 ml Laboratory Labs Laboratory Tests Test 07/22/18 11:26 07/22/18 16:33 07/22/18 20:35 07/23/18 05:20 Glucose (Fingerstick) 252 mg/dL (70-99) 272 mg/dL (70-99) 275 mg/dL (70-99) White Blood Count 12.7 x10^3/uL (4.0-11.0) Red Blood Count 3.51 x10^6/uL (3.50-5.40) Hemoglobin 11.6 g/dL (12.0-15.5) Hematocrit 36.5 % (36.0-47.0) Mean Corpuscular Volume 104 fL (79-100) Mean Corpuscular Hemoglobin 33 pg (25-35) Mean Corpuscular Hemoglobin Concent 32 g/dL (31-37) Red Cell Distribution Width 16.0 % (11.5-14.5) Platelet Count 143 x10^3/uL (140-400) Neutrophils (%) (Auto) 92 % (31-73) Lymphocytes (%) (Auto) 4 % (24-48) Monocytes (%) (Auto) 3 % (0-9) Eosinophils (%) (Auto) 0 % (0-3) Basophils (%) (Auto) 0 % (0-3) Neutrophils # (Auto) 11.7 x10^3uL (1.8-7.7) Lymphocytes # (Auto) 0.6 x10^3/uL (1.0-4.8) Monocytes # (Auto) 0.4 x10^3/uL (0.0-1.1) Eosinophils # (Auto) 0.0 x10^3/uL (0.0-0.7) Basophils # (Auto) 0.0 x10^3/uL (0.0-0.2) Sodium Level 131 mmol/L (136-145) Potassium Level 4.6 mmol/L (3.5-5.1) Chloride Level 92 mmol/L (98-107) Carbon Dioxide Level 27 mmol/L (21-32) Anion Gap 12 (6-14) Blood Urea Nitrogen 52 mg/dL (7-20) Creatinine 4.7 mg/dL (0.6-1.0) Estimated GFR (Cockcroft-Gault) 8.8 Glucose Level 338 mg/dL (70-99) Calcium Level 8.2 mg/dL (8.5-10.1) Phosphorus Level 3.5 mg/dL (2.6-4.7) Magnesium Level 2.7 mg/dL (1.8-2.4) Albumin 2.7 g/dL (3.4-5.0) Test 07/23/18 08:15 Glucose (Fingerstick) 304 mg/dL (70-99) Review of Systems Constitutional: yes: weakness, alert Ears/Nose/Throat: Yes: dysphagia Cardiovascular: Yes no symptom reported Gastrointestional: Yes: constipation Genitourinary: Yes: no symptom reported Musculoskeletal: Yes: muscle stiffness Skin: Yes no symptom reported Psychiatric/Neurological: Yes: no symptom reported Endocrine: Yes: no symptom reported Physical Exam HEENT: Neck Supple W Full Motion Chest: Symmetric LUNGS: Other (basilar crackles) Heart: S1S2, irregularly irregular (AFIB rate controlled) Extremities: Other (trace LE edema) Neurology: alert, oriented, follow commands Assessment Assessment 1. Hypotension. BP better 2. H/o CAD s/p CABG CABG. Ejection fraction of 40% as above. CP free 3. Hypertension; with present hypotension as noted above 4. ESRD on HD 5. Chronic diastolic CHF; Compensated 6. DM, II; uncontrolled. as per PCP 7. Persistent AFIB; rate controlled 8. Debility/WC bound 9. Severe TR: poor surgical candidate Recommendations 1. Continue to hold BP meds. Wean off dopamine. Start on midodrine and note response. 2. Continue to push PO fluids 3. ASA for stroke prophylaxis. Noted to be poor candidate for OAC. 4. Fluid off loading per HD 5. Continue digoxin PO to be given after HD TIW. 6. Follow up in office. NATHAN TRINH APRN Jul 23, 2018 09:28
--- NOTE | 2018-07-23 11:04 | PDOC ---
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 hypotension but now blood pressure 90'Ss somewhat symptomatic with lethargy 07/23 INC DYSPHONIA NEEDS SWALLOW STUDY History of Present Illness History of Present Illness Assessment/Plan Assessment/Plan SOA, fluid overload-cannot rule out HCAP ESRD on dialysis-did not finish dialysis Existing AV fistula with good bruit Hypotension, resolved now hypertension Anemia of chronic disease Generalized weakness SNU resident Diabetes type 2 on low-dose insulin symptomatic with lethargy hypotension not improved CXR 07/21 The patient is post CABG procedure. The cardiac silhouette is mild to moderately enlarged. Atherosclerotic calcification of the thoracic aorta is seen. The thoracic aorta is tortuous. Prominence of pulmonary vasculature is seen consistent with CHF. Left lower lobe atelectasis and or infiltrate is noted. No pneumothorax or pleural effusion is seen. The osseous structures are unchanged.? ASPIRATION SILENT 07/22 ct chest patchy ground glass opacification of the lungs. Interval development of small pleural effusions right greater than left, with underlying atelectasis. The appearance suggests mild congestive failure, however an atypical infectious process, or inflammatory etiology is possible. MOD-SEVERE protein-caloric malnutrition PLAN: DOPAMINE DRIP BP SUPPORT WEAN ID CONSULT VIRAL RESP PANEL RSV DIALYSIS- PT OT Sliding-scale insulin moderate dose Renal diet Renal FOLLOWING Zosyn per pharmacy Follow cultures FREQUENT LABS Back to [facility] on d/c Small IV 5% albumin boluses can be administered if maps dropped below 65 Full code SWALLOW , VIDEO TOMORROW D/W ST 36 min visit time, pt exam chart review > 50% time with exam, chart review pt care coordination, GUARDED PROGNOSIS PER MY CHART REVIEW Vitals Vitals Vital Signs Date Time Temp Pulse Resp B/P (MAP) Pulse Ox O2 Delivery O2 Flow Rate FiO2 07/23/18 08:00 Nasal Cannula 2.0 07/23/18 07:42 95 07/23/18 07:00 98.2 82 18 112/48 (69) 98.2 Physical Exam Physical Exam GENERAL: Alert, oriented x 3 female, lying in bed comfortably, in no acute distress, cooperative. HEENT: Normocephalic, atraumatic, anicteric. No thrush. Oral mucosa moist. NECK: Supple. No JVD. LUNGS: A few expiratory wheezing. HEART: S1, S2. No gallops or murmurs. ABDOMEN: Soft, obese. Bowel sounds present. EXTREMITIES: No edema, no cyanosis. DERMATOLOGIC: No generalized rash. Chronic skin changes present in both lower extremities. No evidence of infection. Right upper extremity fistula site looks okay. CENTRAL NERVOUS SYSTEM: Alert and oriented. Grossly nonfocal. General: Alert, Oriented X3, Cooperative, mild distress Heart: Regular rate, Normal S1 Lungs: Wheezing, Crackles (less crackles) Abdomen: Normal bowel sounds, No masses Extremities: No clubbing, No cyanosis, No edema, Normal pulses, No tenderness/ swelling Skin: No rashes, No breakdown, No significant lesion Labs LABS AP portable chest radiograph 07/23/2018 Clinical History: Post PICC line placement. An AP erect portable digital radiograph of the chest was obtained. Comparison study is dated 07/21/2018. The left arm PICC has apparently been replaced. The tip of the catheter extends to overlie the SVC/right atrial junction. The patient is post CABG procedure. The cardiac silhouette is mild to moderately enlarged. Atherosclerotic calcification of the thoracic aorta is seen. The thoracic aorta is tortuous. Prominence of pulmonary vasculature is seen involving both lungs consistent with CHF essentially unchanged. Left midlung subsegmental atelectasis and left lower lobe subsegmental atelectasis is again seen. There are probable small bilateral pleural effusions. No pneumothorax is seen. The osseous structures are unchanged. Impression: The tip of the left arm PICC extends to overlie the SVC/right atrial junction. Electronically signed by: Wes Maddox MD (07/23/2018 3:11 AM) [facility] Laboratory Tests Test 07/22/18 11:26 07/22/18 16:33 07/22/18 20:35 07/23/18 05:20 Glucose (Fingerstick) 252 mg/dL (70-99) 272 mg/dL (70-99) 275 mg/dL (70-99) White Blood Count 12.7 x10^3/uL (4.0-11.0) Red Blood Count 3.51 x10^6/uL (3.50-5.40) Hemoglobin 11.6 g/dL (12.0-15.5) Hematocrit 36.5 % (36.0-47.0) Mean Corpuscular Volume 104 fL (79-100) Mean Corpuscular Hemoglobin 33 pg (25-35) Mean Corpuscular Hemoglobin Concent 32 g/dL (31-37) Red Cell Distribution Width 16.0 % (11.5-14.5) Platelet Count 143 x10^3/uL (140-400) Neutrophils (%) (Auto) 92 % (31-73) Lymphocytes (%) (Auto) 4 % (24-48) Monocytes (%) (Auto) 3 % (0-9) Eosinophils (%) (Auto) 0 % (0-3) Basophils (%) (Auto) 0 % (0-3) Neutrophils # (Auto) 11.7 x10^3uL (1.8-7.7) Lymphocytes # (Auto) 0.6 x10^3/uL (1.0-4.8) Monocytes # (Auto) 0.4 x10^3/uL (0.0-1.1) Eosinophils # (Auto) 0.0 x10^3/uL (0.0-0.7) Basophils # (Auto) 0.0 x10^3/uL (0.0-0.2) Sodium Level 131 mmol/L (136-145) Potassium Level 4.6 mmol/L (3.5-5.1) Chloride Level 92 mmol/L (98-107) Carbon Dioxide Level 27 mmol/L (21-32) Anion Gap 12 (6-14) Blood Urea Nitrogen 52 mg/dL (7-20) Creatinine 4.7 mg/dL (0.6-1.0) Estimated GFR (Cockcroft-Gault) 8.8 Glucose Level 338 mg/dL (70-99) Calcium Level 8.2 mg/dL (8.5-10.1) Phosphorus Level 3.5 mg/dL (2.6-4.7) Magnesium Level 2.7 mg/dL (1.8-2.4) Albumin 2.7 g/dL (3.4-5.0) Test 07/23/18 08:15 Glucose (Fingerstick) 304 mg/dL (70-99) Assessment and Plan Assessmemt and Plan Problems Medical Problems: (1) Congestive heart failure Status: Acute Comment Review of Relevant I have reviewed the following items smith (where applicable) has been applied. Labs Laboratory Tests Test 07/21/18 11:41 07/21/18 16:32 07/21/18 17:50 07/21/18 20:53 Glucose (Fingerstick) 285 mg/dL (70-99) 156 mg/dL (70-99) 201 mg/dL (70-99) 240 mg/dL (70-99) Test 07/22/18 05:05 07/22/18 07:12 07/22/18 11:26 07/22/18 16:33 White Blood Count 12.2 x10^3/uL (4.0-11.0) Red Blood Count 3.16 x10^6/uL (3.50-5.40) Hemoglobin 10.8 g/dL (12.0-15.5) Hematocrit 32.7 % (36.0-47.0) Mean Corpuscular Volume 103 fL (79-100) Mean Corpuscular Hemoglobin 34 pg (25-35) Mean Corpuscular Hemoglobin Concent 33 g/dL (31-37) Red Cell Distribution Width 15.4 % (11.5-14.5) Platelet Count 138 x10^3/uL (140-400) Neutrophils (%) (Auto) 90 % (31-73) Lymphocytes (%) (Auto) 4 % (24-48) Monocytes (%) (Auto) 5 % (0-9) Eosinophils (%) (Auto) 0 % (0-3) Basophils (%) (Auto) 1 % (0-3) Neutrophils # (Auto) 10.9 x10^3uL (1.8-7.7) Lymphocytes # (Auto) 0.5 x10^3/uL (1.0-4.8) Monocytes # (Auto) 0.6 x10^3/uL (0.0-1.1) Eosinophils # (Auto) 0.0 x10^3/uL (0.0-0.7) Basophils # (Auto) 0.1 x10^3/uL (0.0-0.2) Sodium Level 135 mmol/L (136-145) Potassium Level 4.3 mmol/L (3.5-5.1) Chloride Level 95 mmol/L (98-107) Carbon Dioxide Level 27 mmol/L (21-32) Anion Gap 13 (6-14) Blood Urea Nitrogen 34 mg/dL (7-20) Creatinine 4.1 mg/dL (0.6-1.0) Estimated GFR (Cockcroft-Gault) 10.3 Glucose Level 328 mg/dL (70-99) Calcium Level 7.9 mg/dL (8.5-10.1) Phosphorus Level 4.0 mg/dL (2.6-4.7) Magnesium Level 2.6 mg/dL (1.8-2.4) Albumin 3.1 g/dL (3.4-5.0) Glucose (Fingerstick) 297 mg/dL (70-99) 252 mg/dL (70-99) 272 mg/dL (70-99) Test 07/22/18 20:35 07/23/18 05:20 07/23/18 08:15 Glucose (Fingerstick) 275 mg/dL (70-99) 304 mg/dL (70-99) White Blood Count 12.7 x10^3/uL (4.0-11.0) Red Blood Count 3.51 x10^6/uL (3.50-5.40) Hemoglobin 11.6 g/dL (12.0-15.5) Hematocrit 36.5 % (36.0-47.0) Mean Corpuscular Volume 104 fL (79-100) Mean Corpuscular Hemoglobin 33 pg (25-35) Mean Corpuscular Hemoglobin Concent 32 g/dL (31-37) Red Cell Distribution Width 16.0 % (11.5-14.5) Platelet Count 143 x10^3/uL (140-400) Neutrophils (%) (Auto) 92 % (31-73) Lymphocytes (%) (Auto) 4 % (24-48) Monocytes (%) (Auto) 3 % (0-9) Eosinophils (%) (Auto) 0 % (0-3) Basophils (%) (Auto) 0 % (0-3) Neutrophils # (Auto) 11.7 x10^3uL (1.8-7.7) Lymphocytes # (Auto) 0.6 x10^3/uL (1.0-4.8) Monocytes # (Auto) 0.4 x10^3/uL (0.0-1.1) Eosinophils # (Auto) 0.0 x10^3/uL (0.0-0.7) Basophils # (Auto) 0.0 x10^3/uL (0.0-0.2) Sodium Level 131 mmol/L (136-145) Potassium Level 4.6 mmol/L (3.5-5.1) Chloride Level 92 mmol/L (98-107) Carbon Dioxide Level 27 mmol/L (21-32) Anion Gap 12 (6-14) Blood Urea Nitrogen 52 mg/dL (7-20) Creatinine 4.7 mg/dL (0.6-1.0) Estimated GFR (Cockcroft-Gault) 8.8 Glucose Level 338 mg/dL (70-99) Calcium Level 8.2 mg/dL (8.5-10.1) Phosphorus Level 3.5 mg/dL (2.6-4.7) Magnesium Level 2.7 mg/dL (1.8-2.4) Albumin 2.7 g/dL (3.4-5.0) Laboratory Tests Test 07/22/18 11:26 07/22/18 16:33 07/22/18 20:35 07/23/18 05:20 Glucose (Fingerstick) 252 mg/dL (70-99) 272 mg/dL (70-99) 275 mg/dL (70-99) White Blood Count 12.7 x10^3/uL (4.0-11.0) Red Blood Count 3.51 x10^6/uL (3.50-5.40) Hemoglobin 11.6 g/dL (12.0-15.5) Hematocrit 36.5 % (36.0-47.0) Mean Corpuscular Volume 104 fL (79-100) Mean Corpuscular Hemoglobin 33 pg (25-35) Mean Corpuscular Hemoglobin Concent 32 g/dL (31-37) Red Cell Distribution Width 16.0 % (11.5-14.5) Platelet Count 143 x10^3/uL (140-400) Neutrophils (%) (Auto) 92 % (31-73) Lymphocytes (%) (Auto) 4 % (24-48) Monocytes (%) (Auto) 3 % (0-9) Eosinophils (%) (Auto) 0 % (0-3) Basophils (%) (Auto) 0 % (0-3) Neutrophils # (Auto) 11.7 x10^3uL (1.8-7.7) Lymphocytes # (Auto) 0.6 x10^3/uL (1.0-4.8) Monocytes # (Auto) 0.4 x10^3/uL (0.0-1.1) Eosinophils # (Auto) 0.0 x10^3/uL (0.0-0.7) Basophils # (Auto) 0.0 x10^3/uL (0.0-0.2) Sodium Level 131 mmol/L (136-145) Potassium Level 4.6 mmol/L (3.5-5.1) Chloride Level 92 mmol/L (98-107) Carbon Dioxide Level 27 mmol/L (21-32) Anion Gap 12 (6-14) Blood Urea Nitrogen 52 mg/dL (7-20) Creatinine 4.7 mg/dL (0.6-1.0) Estimated GFR (Cockcroft-Gault) 8.8 Glucose Level 338 mg/dL (70-99) Calcium Level 8.2 mg/dL (8.5-10.1) Phosphorus Level 3.5 mg/dL (2.6-4.7) Magnesium Level 2.7 mg/dL (1.8-2.4) Albumin 2.7 g/dL (3.4-5.0) Test 07/23/18 08:15 Glucose (Fingerstick) 304 mg/dL (70-99) Medications Current Medications Albuterol/ Ipratropium (Duoneb) 3 ml 1X ONCE NEB Last administered on at 12:57; Start 07/19/18 at 12:45; Stop 07/19/18 at 12:46; Status DC Ondansetron HCl (Zofran) 4 mg PRN Q8HRS PRN IV NAUSEA/VOMITING; Start 07/19/18 at 14:30; Stop 07/20/18 at 14:29; Status DC Acetaminophen (Tylenol) 650 mg PRN Q4HRS PRN PO FEVER; Start 07/19/18 at 14:30 ; Stop 07/20/18 at 08:37; Status DC Nitroglycerin (Nitrostat) 0.4 mg PRN Q5MIN PRN SL CHEST PAIN; Start 07/19/18 at 14:30; Stop 07/20/18 at 14:29; Status DC Albuterol/ Ipratropium (Duoneb) 3 ml RTQID NEB ; Start 07/19/18 at 16:00; Stop 07/20/18 at 15:59; Status Cancel Aspirin (Tracee Aspirin) 325 mg DAILY PO Last administered on 07/23/18 08:35; Start 07/19/18 at 15:00 Carvedilol (Coreg) 3.125 mg BIDWMEALS PO ; Start 07/19/18 at 17:00; Stop at 19:42; Status DC Cinacalcet (Sensipar) 30 mg DAILY PO Last administered on 07/23/18 08:34; Start 07/19/18 at 15:00 Diclofenac Sodium (Voltaren) 1 grisel BID TP Last administered on 07/22/18 20:42 ; Start 07/19/18 at 21:00 Fentanyl (Duragesic 12mcg/ Hr Patch) 1 patch Q3DAYS TD ; Start 07/19/18 at 15:00 ; Stop 07/19/18 at 19:42; Status DC Vitamin B Complex/ Vitamin C (Bela-Roland) 1 tab DAILYBFRSUP PO Last administered on 07/22/18 17:16; Start 07/19/18 at 17:00 Ondansetron HCl (Zofran Odt) 4 mg PRN Q6HRS PRN PO NAUSEA/VOMITING; Start 07/19 at 14:45 Sevelamer Carbonate (Renvela) 2.4 gm TIDWMEALS PO Last administered on 08:37; Start 07/19/18 at 17:00 Acetaminophen (Tylenol) 500 mg PRN Q6HRS PRN PO MILD PAIN / TEMP; Start at 14:45 Latanoprost (Xalatan) 1 drop QHS OU Last administered on 07/22/18 20:41; Start 07/19/18 at 21:00 Calcitriol (Rocaltrol) 0.25 mcg DAILY PO Last administered on 07/23/18 08:34; Start 07/20/18 at 09:00 Vitamin D (Vitamin D3) 1,000 unit DAILY PO Last administered on 07/23/18 08:35 ; Start 07/20/18 at 09:00 Hydromorphone HCl (Dilaudid) 2 mg PRN Q8HRS PRN PO MODERATE PAIN, SEVERE PAIN; Start 07/19/18 at 15:00; Stop 07/20/18 at 09:31; Status DC Insulin Glargine (Lantus) 5 units QHS SQ Last administered on 07/22/18 20:44; Start 07/19/18 at 21:00 Non-Formulary Medication (Latanoprost/Pf (Latanoprost 0.005% Eye Drop)) 7.5 ml QHS OP ; Start 07/19/18 at 21:00; Status UNV Pantoprazole Sodium (Protonix) 40 mg DAILYAC PO Last administered on 07/23/18 08:35; Start 07/20/18 at 07:30 Piperacillin Sod/ Tazobactam Sod (Zosyn Per Pharmacy) 1 each PRN DAILY PRN MC SEE COMMENTS; Start 07/19/18 at 14:45 Albuterol/ Ipratropium (Duoneb) 3 ml RTQID NEB Last administered on 07/23/18 07:42; Start 07/19/18 at 16:00 Guaifenesin (Robitussin Dm) 10 ml QID PO Last administered on 07/22/18 20:42; Start 07/19/18 at 17:00 Temazepam (Restoril) 7.5 mg PRN QHS PRN PO INSOMNIA Last administered on 20:42; Start 07/19/18 at 14:45 Insulin Human Lispro (HumaLOG) 0-7 UNITS TIDWMEALS SQ Last administered on 07/23 08:37; Start 07/19/18 at 17:00 Dextrose (Dextrose 50%-Water Syringe) 12.5 gm PRN Q15MIN PRN IV SEE COMMENTS; Start 07/19/18 at 14:45 Piperacillin Sod/ Tazobactam Sod 2.25 gm/Sodium Chloride 50 ml @ 100 mls/hr Q8H IV Last administered on 07/23/18 08:36; Start 07/19/18 at 16:00 Furosemide (Lasix) 40 mg 1X ONCE IVP Last administered on 07/19/18 14:52; Start 07/19/18 at 14:45; Stop 07/19/18 at 14:52; Status DC Docusate Sodium (Colace) 100 mg BID PO Last administered on 07/23/18 08:34; Start 07/19/18 at 21:00 Magnesium Hydroxide (Milk Of Magnesia) 2,400 mg PRN DAILY PRN PO CONSTIPATION; Start 07/19/18 at 19:45 Sodium Monofluorophosphate (Fleet Adult) 133 ml PRN DAILY PRN RC CONSTIPATION; Start 07/19/18 at 19:45; Stop 07/22/18 at 12:17; Status DC Bisacodyl (Dulcolax Supp) 10 mg PRN DAILY PRN MO CONSTIPATION 1ST CHOICE; Start 07/19/18 at 19:45 Polyethylene Glycol (miraLAX PACKET) 17 gm BID PO Last administered on at 08:42; Start 07/19/18 at 21:00 Sennosides (Senna) 8.6 mg DAILY PO Last administered on 07/21/18 08:37; Start 07/20/18 at 09:00 Lactobacillus Rhamnosus (Culturelle) 1 cap BID PO Last administered on 08:34; Start 07/20/18 at 21:00 Methylprednisolone Sodium Succinate (SOLU-Medrol 40MG VIAL) 40 mg Q8HRS IV Last administered on 07/23/18at 05:22; Start 07/20/18 at 14:00 Albumin Human 250 ml @ 62.5 mls/hr PRN Q6HRS PRN IV for MAP < 65 Last administered on 07/21/18 20:45; Start 07/20/18 at 09:45 Magnesium Sulfate 50 ml @ 25 mls/hr PRN DAILY PRN IV for Mag < 1.7 on am labs; Start 07/20/18 at 09:45 Dopamine HCl/ Dextrose 250 ml @ 6.124 mls/ hr CONT PRN IV SEE I/O RECORD Last administered on 07/22/18at 17:13; Start 07/20/18 at 12:00 Sodium Chloride 1,000 ml @ 1,000 mls/hr Q1H PRN IV hypotension; Start 07/21/18 at 13:00; Stop 07/21/18 at 18:59; Status DC Sodium Chloride 1,000 ml @ 400 mls/hr Q2H30M PRN IV PATENCY; Start 07/21/18 at 13:00; Stop 07/22/18 at 00:59; Status DC Info (PHARMACY MONITORING -- do not chart) 1 each PRN DAILY PRN MC SEE COMMENTS ; Start 07/21/18 at 13:30; Status UNV Info (PHARMACY MONITORING -- do not chart) 1 each PRN DAILY PRN MC SEE COMMENTS ; Start 07/21/18 at 13:30 Albumin Human 100 ml @ 100 mls/hr 1X ONCE IV Last administered on 07/21/18at 14:00; Start 07/21/18 at 13:30; Stop 07/21/18 at 14:29; Status DC Sodium Chloride 500 ml @ 500 mls/hr 1X ONCE IV Last administered on at 11:14; Start 07/22/18 at 11:15; Stop 07/22/18 at 12:14; Status DC Digoxin (Lanoxin) 125 mcg QMWF@1600 PO ; Start 07/23/18 at 16:00 Digoxin (Lanoxin) 125 mcg 1X ONCE PO Last administered on 07/22/18at 12:26; Start 07/22/18 at 12:00; Stop 07/22/18 at 12:01; Status DC Midodrine (Proamatine) 2.5 mg [id number] PO Last administered on 07/23/18at 05:24; Start 07/22/18 at 13:00 Active Scripts Active Levemir (Insulin Detemir) 100 Unit/1 Ml Vial 5 Unit SQ QHS 30 Days Hold for < 140mg/dL Aspirin 325 Mg Tablet 1 Tab PO DAILY Reported Amlodipine Besylate 10 Mg Tablet 10 Mg PO DAILY Tylenol (Acetaminophen) 325 Mg Tablet 2 Tab PO PRN Q6HRS PRN Senna (Sennosides) 8.6 Mg Tablet 8.6 Mg PO DAILY Novolog Flexpen (Insulin Aspart) 100 Unit/1 Ml Insuln.pen 1 Unit SQ TIDAC Miralax (Polyethylene Glycol 3350) 17 Gm Powd.pack 1 Packet PO BID Milk Of Magnesia (Magnesium Hydroxide) 400 Mg/5 Ml Oral.susp 30 Ml PO PRN DAILY Duoneb 0.5-3(2.5) Mg/3 Ml (Albuterol/Ipratropium) 3 Ml Ampul.neb 3 Ml NEB TID Fleet Enema (Na Phos,M-B/Na Phos,Di-Ba) 133 Ml Enema 1 Each RC PRN DAILY PRN Dulcolax (Bisacodyl) 10 Mg Supp.rect 10 Mg RC PRN DAILY PRN Docusate Sodium 100 Mg Capsule 1 Cap PO BID Carvedilol (Carvedilol) 12.5 Mg Tablet 12.5 Mg PO BIDWMEALS Protonix (Pantoprazole Sodium) 20 Mg Tablet.dr 40 Mg PO DAILY Voltaren (Diclofenac Sodium) 100 Gm Gel..gram. 1 Gm TP BID Zofran Odt (Ondansetron) 4 Mg Tab.rapdis 4 Mg PO Q6HRS PRN Sensipar (Cinacalcet Hcl) 30 Mg Tablet 1 Tab PO DAILY Renvela (Sevelamer Carbonate) 2.4 Gm Powd.pack 2.4 Gm PO TIDWMEALS Lumigan (Bimatoprost) 2.5 Ml Drops 1 Drop EACHEYE QHS Calcitriol 0.25 Mcg Capsule 1 Cap PO DAILY Nephro-Roland Tablet (Folic Acid/Vitamin B Comp W-C) 0.8 Mg Tablet 1 Tab PO DAILYBFRSUP Vitamin D (Cholecalciferol (Vitamin D3)) 2,000 Unit Capsule 1 Cap PO DAILY Vitals/I & O Vital Sign - Last 24 Hours 07/22/18 07/22/18 07/22/18 07/22/18 12:26 13:04 14:12 15:00 Temp 98.2 98.2 Pulse 84 80 89 Resp 18 B/P (MAP) 77/40 93/41 93/41 (58) Pulse Ox 96 O2 Delivery Nasal Cannula Nasal Cannula O2 Flow Rate 2.0 2.0 07/22/18 07/22/18 07/22/18 07/22/18 15:57 19:00 19:07 20:00 Temp 98.2 98.2 Pulse 82 85 Resp 18 B/P (MAP) 95/45 (62) 83/61 Pulse Ox 93 O2 Delivery Room Air Nasal Cannula Nasal Cannula O2 Flow Rate 2.0 2.0 07/22/18 07/23/18 07/23/18 07/23/18 23:00 03:00 05:24 07:00 Temp 98.3 97.6 98.2 98.3 97.6 98.2 Pulse 88 82 82 82 Resp 18 18 18 B/P (MAP) 93/63 (73) 138/57 (84) 138/57 112/48 (69) Pulse Ox 93 90 91 O2 Delivery Nasal Cannula Nasal Cannula Nasal Cannula O2 Flow Rate 2.0 2.0 2.0 07/23/18 07/23/18 07:42 08:00 Pulse Ox 95 O2 Delivery Room Air Nasal Cannula O2 Flow Rate 2.0 Intake and Output 07/22/18 07/22/18 07/23/18 15:00 23:00 07:00 Intake Total 120 ml Output Total 0 ml 0 ml Balance 120 ml 0 ml DAY ROSADO MD Jul 23, 2018 11:04
--- NOTE | 2018-07-23 12:10 | NUR ---
SS following up with discharge planning. SS discussed with Palliative Care RN. SS phoned and faxed screen to [facility], ; fax [phone], to check insurance benefits with [employer]. SS will await insurance determination and will proceed accordingly. Physician notified.
--- NOTE | 2018-07-23 13:50 | PDOC ---
Renal-Progress Notes Subjective Notes Notes HAVING DIFFICULTY SWALLOWING STILL WITH COUGHING History of Present Illness Hx of present illness STILL HYPOTENSIVE BUT STABLE Vitals Vitals Vital Signs Date Time Temp Pulse Resp B/P (MAP) Pulse Ox O2 Delivery O2 Flow Rate FiO2 07/23/18 13:09 72 82/42 07/23/18 11:55 Room Air 07/23/18 11:00 98.0 18 92 2.0 98.0 Weight Weight [ ] I.O. Intake and Output Intake and Output 07/23/18 07:00 Intake Total 120 ml Output Total 0 ml Balance 120 ml Intake Oral 120 ml Output Urine Total 0 ml Labs Labs Laboratory Tests Test 07/22/18 16:33 07/22/18 20:35 07/23/18 05:20 07/23/18 08:15 Glucose (Fingerstick) 272 mg/dL (70-99) 275 mg/dL (70-99) 304 mg/dL (70-99) White Blood Count 12.7 x10^3/uL (4.0-11.0) Red Blood Count 3.51 x10^6/uL (3.50-5.40) Hemoglobin 11.6 g/dL (12.0-15.5) Hematocrit 36.5 % (36.0-47.0) Mean Corpuscular Volume 104 fL (79-100) Mean Corpuscular Hemoglobin 33 pg (25-35) Mean Corpuscular Hemoglobin Concent 32 g/dL (31-37) Red Cell Distribution Width 16.0 % (11.5-14.5) Platelet Count 143 x10^3/uL (140-400) Neutrophils (%) (Auto) 92 % (31-73) Lymphocytes (%) (Auto) 4 % (24-48) Monocytes (%) (Auto) 3 % (0-9) Eosinophils (%) (Auto) 0 % (0-3) Basophils (%) (Auto) 0 % (0-3) Neutrophils # (Auto) 11.7 x10^3uL (1.8-7.7) Lymphocytes # (Auto) 0.6 x10^3/uL (1.0-4.8) Monocytes # (Auto) 0.4 x10^3/uL (0.0-1.1) Eosinophils # (Auto) 0.0 x10^3/uL (0.0-0.7) Basophils # (Auto) 0.0 x10^3/uL (0.0-0.2) Sodium Level 131 mmol/L (136-145) Potassium Level 4.6 mmol/L (3.5-5.1) Chloride Level 92 mmol/L (98-107) Carbon Dioxide Level 27 mmol/L (21-32) Anion Gap 12 (6-14) Blood Urea Nitrogen 52 mg/dL (7-20) Creatinine 4.7 mg/dL (0.6-1.0) Estimated GFR (Cockcroft-Gault) 8.8 Glucose Level 338 mg/dL (70-99) Calcium Level 8.2 mg/dL (8.5-10.1) Phosphorus Level 3.5 mg/dL (2.6-4.7) Magnesium Level 2.7 mg/dL (1.8-2.4) Albumin 2.7 g/dL (3.4-5.0) Test 07/23/18 11:47 Glucose (Fingerstick) 265 mg/dL (70-99) Review of Systems Constitutional: yes: weakness, alert Ears/Nose/Throat: Yes: dysphagia Cardiovascular: Yes no symptom reported Gastrointestional: Yes: constipation Genitourinary: Yes: no symptom reported Musculoskeletal: Yes: muscle stiffness Skin: Yes no symptom reported Psychiatric/Neurological: Yes: no symptom reported Endocrine: Yes: no symptom reported Physical Exam General Appearance: no apparent distress Skin: warm Respiratory: decreased breath sounds Heart: S1S2, RRR Abdomen: soft Genitourinary: bladder flat, no mass Extremities: pulses present, no edema, atrophy Neurology: alert, oriented, follow commands Assessment Assessment IMP HYPOTENSION MILD HYPERVOLEMIA-RESOLVED ESRD-TTS ANEMIA DECONDITIONING DM II DYSPHAGIA PLAN HD TOMORROW MIDODRINE MAY NEED TO REPEAT SWALLOW NANCY EASTMAN MD Jul 23, 2018 13:50
[2018-07-23] MEDS ORDERED: IV NORMAL SALINE 500ML BAG 500 ML IV ONE (15:00)
[2018-07-23] MEDS ORDERED: DIGOXIN 125 MCG TABLET. PO SCH (16:00)
[2018-07-23] MEDS: FOLIC/VIT B COMP W-C (RENAL) TABLET. PO SCH (17:57)
--- NOTE | 2018-07-23 18:56 | NUR ---
Report given to MT Moon in ICU. Patient transferred to room 115 under stable condition with 3 RN's at bedside.
[2018-07-23] MEDS: LATANOPROST 0.005% OPHTH SOLUTION 2.5ML BOTTLE. OU SCH (21:49)
[2018-07-23] MEDS: INSULIN GLARGINE 300 UNITS/3 ML INSULN.PEN. SQ SCH (21:54)
[2018-07-24] VITALS (31 sets, daily range): BP systolic 77–143; BP diastolic 40–103
[2018-07-24] MEDS: PIPERACILLIN/TAZOBACTAM 2.25 GM in IV NORMAL SALINE 50ML 50 ML IV SCH (00:10)
[2018-07-24 05:20] LABS: BASO # 0.1 x10^3/uL (0.0-0.2); BASO % 0 % (0-3); EOS % 0 % (0-3); HEMATOCRIT 37.9 % (36.0-47.0); HEMOGLOBIN 12.1 g/dL (12.0-15.5); LYMPH # 0.8 x10^3/uL (1.0-4.8); LYMPH % 6 % (24-48); MEAN CORPUSCULAR HEMOGLOBIN 33 pg (25-35); MEAN CORPUSCULAR HGB CONC 32 g/dL (31-37); MEAN CORPUSCULAR VOLUME 103 fL (79-100); MONO # 0.7 x10^3/uL (0.0-1.1); MONO % 5 % (0-9); NEUT % 89 % (31-73); PLATELET COUNT 148 x10^3/uL (140-400); RED BLOOD COUNT 3.67 x10^6/uL (3.50-5.40); RED CELL DISTRIBUTION WIDTH 15.7 % (11.5-14.5); WHITE BLOOD COUNT 13.6 x10^3/uL (4.0-11.0)
[2018-07-24 05:33] LABS: ALBUMIN 2.8 g/dL (3.4-5.0); ALBUMIN/GLOBULIN RATIO 0.8 (1.0-1.7); CALCIUM 8.1 mg/dL (8.5-10.1); CREATININE 5.5 mg/dL (0.6-1.0); GFR 7.4; MAGNESIUM 2.6 mg/dL (1.8-2.4); PHOSPHORUS 3.7 mg/dL (2.6-4.7); POTASSIUM 5.1 mmol/L (3.5-5.1); TOTAL BILIRUBIN 1.2 mg/dL (0.2-1.0); TOTAL PROTEIN 6.4 g/dL (6.4-8.2)
[2018-07-24] MEDS: methylPREDNISolone SOD SUCC PF 40 MG/ML VIAL. IV SCH ×3 (06:20→22:12)
[2018-07-24] MEDS: MIDODRINE 2.5 MG TABLET PO SCH ×3 (06:22→17:40)
[2018-07-24] MEDS ORDERED: IV NORMAL SALINE 1000ML BAG 1,000 ML IV PRN ×2 (06:59)
[2018-07-24] MEDS ORDERED: DIALYSIS PATIENT. MC PRN ×2 (07:00)
[2018-07-24] MEDS ORDERED: ALBUMIN HUMAN 25% 200 ML IV PRN (07:00)
[2018-07-24] MEDS: SEVELAMER CARBONATE 2.4 GM PACKET. PO SCH ×3 (08:00→17:00)
[2018-07-24] MEDS: INSULIN LISPRO 300 UNITS/3 ML INSULN.PEN. SQ SCH ×3 (08:00→17:29)
--- NOTE | 2018-07-24 08:00 | PDOC ---
Infectious Disease Note Subjective: Subjective Pt is transferred to ICU for hypotension Pt this am is undergoing dialysis, she has no complaints says cough has improved no fever or chills no n/v/d/sob ROS: ROS D/W RN Vital Signs: Vital Signs Vital Signs Date Time Temp Pulse Resp B/P (MAP) Pulse Ox O2 Delivery O2 Flow Rate FiO2 07/24/18 06:30 86 134/103 (113) 07/24/18 06:00 27 99 Nasal Cannula 4.0 07/24/18 04:00 97.4 97.4 Physical Exam: PHYSICAL EXAM GENERAL: Alert, oriented x 3 female, lying in bed comfortably, in no acute distress, cooperative. HEENT: Normocephalic, atraumatic, anicteric. No thrush. Oral mucosa dry NECK: Supple. No JVD. LUNGS: Dec bs at bases otherwise clear anteriorly HEART: S1, S2. No gallops or murmurs. ABDOMEN: Soft, obese. Bowel sounds present. EXTREMITIES: No edema, no cyanosis. DERMATOLOGIC: No generalized rash. Chronic skin changes present in both lower extremities. No evidence of infection. Right upper extremity fistula site looks okay. CENTRAL NERVOUS SYSTEM: Alert and oriented. Grossly nonfocal. Medications: Inpatient Meds: Current Medications Medications (Trade) Dose Ordered Sig/Homa Start Time Stop Time Status Last Admin Dose Admin Acetaminophen (Tylenol) 500 mg PRN Q6HRS PRN 07/19/18 14:45 Albumin Human 200 ml @ 200 mls/hr 1X PRN PRN 07/24/18 07:00 07/24/18 12:59 Albuterol/ Ipratropium (Duoneb) 3 ml RTQID 07/19/18 16:00 07/23/18 19:52 3 ML Aspirin (Tracee Aspirin) 325 mg DAILY 07/19/18 15:00 07/23/18 08:35 325 MG Bisacodyl (Dulcolax Supp) 10 mg PRN DAILY PRN 07/19/18 19:45 Calcitriol (Rocaltrol) 0.25 mcg DAILY 07/20/18 09:00 07/23/18 08:34 0.25 MCG Carvedilol (Coreg) 3.125 mg BIDWMEALS 07/19/18 17:00 07/19/18 19:42 DC Cinacalcet (Sensipar) 30 mg DAILY 07/19/18 15:00 07/23/18 08:34 30 MG Dextrose (Dextrose 50%-Water Syringe) 12.5 gm PRN Q15MIN PRN 07/19/18 14:45 Diclofenac Sodium (Voltaren) 1 grisel BID 07/19/18 21:00 07/23/18 21:49 1 GRISEL Digoxin (Lanoxin) 125 mcg QTUTHSA 07/24/18 16:00 Docusate Sodium (Colace) 100 mg BID 07/19/18 21:00 07/23/18 21:48 100 MG Dopamine HCl/ Dextrose 250 ml @ 6.124 mls/ hr CONT PRN 07/20/18 12:00 07/24/18 00:09 45.926 MLS/HR Fentanyl (Duragesic 12mcg/ Hr Patch) 1 patch Q3DAYS 07/19/18 15:00 07/19/18 19:42 DC Furosemide (Lasix) 40 mg 1X ONCE 07/19/18 14:45 07/19/18 14:52 DC 07/19/18 14:52 40 MG Guaifenesin (Robitussin Dm) 10 ml QID 07/19/18 17:00 07/23/18 17:58 10 ML Hydromorphone HCl (Dilaudid) 2 mg PRN Q8HRS PRN 07/19/18 15:00 07/20/18 09:31 DC Info (PHARMACY MONITORING -- do not chart) 1 each PRN DAILY PRN 07/24/18 07:00 UNV Insulin Glargine (Lantus) 5 units QHS 07/19/18 21:00 07/23/18 21:54 5 UNITS Insulin Human Lispro (HumaLOG) 0-7 UNITS TIDWMEALS 07/19/18 17:00 07/23/18 18:06 6 UNITS Lactobacillus Rhamnosus (Culturelle) 1 cap BID 07/20/18 21:00 07/23/18 21:48 1 CAP Latanoprost (Xalatan) 1 drop QHS 07/19/18 21:00 07/23/18 21:49 1 DROP Magnesium Hydroxide (Milk Of Magnesia) 2,400 mg PRN DAILY PRN 07/19/18 19:45 Magnesium Sulfate 50 ml @ 25 mls/hr PRN DAILY PRN 07/20/18 09:45 Methylprednisolone Sodium Succinate (SOLU-Medrol 40MG VIAL) 40 mg Q8HRS 07/20/18 14:00 07/24/18 06:20 40 MG Midodrine (Proamatine) 2.5 mg [id number] 07/22/18 13:00 07/24/18 06:22 2.5 MG Nitroglycerin (Nitrostat) 0.4 mg PRN Q5MIN PRN 07/19/18 14:30 07/20/18 14:29 DC Non-Formulary Medication (Latanoprost/Pf (Latanoprost 0.005% Eye Drop)) 7.5 ml QHS 07/19/18 21:00 UNV Ondansetron HCl (Zofran Odt) 4 mg PRN Q6HRS PRN 07/19/18 14:45 Ondansetron HCl (Zofran) 4 mg PRN Q8HRS PRN 07/19/18 14:30 07/20/18 14:29 DC Pantoprazole Sodium (Protonix) 40 mg DAILYAC 07/20/18 07:30 07/23/18 08:35 40 MG Piperacillin Sod/ Tazobactam Sod (Zosyn Per Pharmacy) 1 each PRN DAILY PRN 07/19/18 14:45 Piperacillin Sod/ Tazobactam Sod 2.25 gm/Sodium Chloride 50 ml @ 100 mls/hr Q8H 07/19/18 16:00 07/24/18 00:10 100 MLS/HR Polyethylene Glycol (miraLAX PACKET) 17 gm BID 07/19/18 21:00 07/23/18 08:42 17 GM Sennosides (Senna) 8.6 mg DAILY 07/20/18 09:00 07/21/18 08:37 8.6 MG Sevelamer Carbonate (Renvela) 2.4 gm TIDWMEALS 07/19/18 17:00 07/23/18 17:58 2.4 GM Sodium Monofluorophosphate (Fleet Adult) 133 ml PRN DAILY PRN 07/19/18 19:45 07/22/18 12:17 DC Sodium Chloride 1,000 ml @ 400 mls/hr Q2H30M PRN 07/24/18 06:59 07/24/18 18:58 Temazepam (Restoril) 7.5 mg PRN QHS PRN 07/19/18 14:45 07/22/18 20:42 7.5 MG Vitamin B Complex/ Vitamin C (Bela-Roland) 1 tab DAILYBFRSUP 07/19/18 17:00 07/23/18 17:57 1 TAB Vitamin D (Vitamin D3) 1,000 unit DAILY 07/20/18 09:00 07/23/18 08:35 1,000 UNIT Labs: Lab Laboratory Tests Test 07/23/18 08:15 07/23/18 11:47 07/23/18 17:14 07/23/18 21:46 Glucose (Fingerstick) 304 mg/dL (70-99) 265 mg/dL (70-99) 259 mg/dL (70-99) 235 mg/dL (70-99) Test 07/24/18 04:45 White Blood Count 13.6 x10^3/uL (4.0-11.0) Red Blood Count 3.67 x10^6/uL (3.50-5.40) Hemoglobin 12.1 g/dL (12.0-15.5) Hematocrit 37.9 % (36.0-47.0) Mean Corpuscular Volume 103 fL (79-100) Mean Corpuscular Hemoglobin 33 pg (25-35) Mean Corpuscular Hemoglobin Concent 32 g/dL (31-37) Red Cell Distribution Width 15.7 % (11.5-14.5) Platelet Count 148 x10^3/uL (140-400) Neutrophils (%) (Auto) 89 % (31-73) Lymphocytes (%) (Auto) 6 % (24-48) Monocytes (%) (Auto) 5 % (0-9) Eosinophils (%) (Auto) 0 % (0-3) Basophils (%) (Auto) 0 % (0-3) Neutrophils # (Auto) 12.0 x10^3uL (1.8-7.7) Lymphocytes # (Auto) 0.8 x10^3/uL (1.0-4.8) Monocytes # (Auto) 0.7 x10^3/uL (0.0-1.1) Eosinophils # (Auto) 0.0 x10^3/uL (0.0-0.7) Basophils # (Auto) 0.1 x10^3/uL (0.0-0.2) Sodium Level 132 mmol/L (136-145) Potassium Level 5.1 mmol/L (3.5-5.1) Chloride Level 92 mmol/L (98-107) Carbon Dioxide Level 22 mmol/L (21-32) Anion Gap 18 (6-14) Blood Urea Nitrogen 68 mg/dL (7-20) Creatinine 5.5 mg/dL (0.6-1.0) Estimated GFR (Cockcroft-Gault) 7.4 BUN/Creatinine Ratio 12 (6-20) Glucose Level 297 mg/dL (70-99) Calcium Level 8.1 mg/dL (8.5-10.1) Phosphorus Level 3.7 mg/dL (2.6-4.7) Magnesium Level 2.6 mg/dL (1.8-2.4) Total Bilirubin 1.2 mg/dL (0.2-1.0) Aspartate Amino Transf (AST/SGOT) 24 U/L (15-37) Alanine Aminotransferase (ALT/SGPT) 12 U/L (14-59) Alkaline Phosphatase 166 U/L (46-116) Total Protein 6.4 g/dL (6.4-8.2) Albumin 2.8 g/dL (3.4-5.0) Albumin/Globulin Ratio 0.8 (1.0-1.7) Objective: Assessment: 1. Dyspnea with cough and bronchospasm with recent viral pneumonia with possible secondary infection, also had high BNP. 2. Hypotensive during dialysis. cont to require pressors 3. Leukocytosis, on steroids. 4. End-stage renal disease, on hemodialysis. 5. Obesity. 6. Chronic hypoxic respiratory failure, on home O2 at 2 liters. 7. Anemia of chronic kidney disease. Plan: Plan of Care DC Zosyn start augmentin,monitor closely Elevate LUE F/U U/S LUE Continue supportive care. Follow up labs and cultures. D/W Nursing CHRISTOPH MOY MD Jul 24, 2018 08:00
[2018-07-24] MEDS: IPRATRPIUM/ALBUTEROL 0.5/2.5MG 3 ML NEBU. NEB SCH ×4 (08:08→20:15)
[2018-07-24] MEDS: guaiFENesin DM 200MG/20MG 10 ML SYRUP PO SCH ×4 (09:00→20:34)
[2018-07-24] MEDS: POLYETHYLENE GLYCOL 3350 17 GM PACKET. PO SCH ×2 (09:00→20:34)
--- NOTE | 2018-07-24 09:19 | PDOC ---
PROGRESS NOTES Chief Complaint Chief Complaint 87-year-old female //admitted from 07/10 thru 07/15, discharge 4 days [facility] to [facility] , [facility] resident, Did not finish dialysis because could not feel a bruit? hypotension but now blood pressure 90'Ss somewhat symptomatic with lethargy 07/23 INC DYSPHONIA NEEDS SWALLOW STUDY 07/24 d/w pat, CONSIDER Palliative care transition, family meeting needed History of Present Illness History of Present Illness Assessment/Plan Assessment/Plan SOA, fluid overload-cannot rule out HCAP ESRD on dialysis-did not finish dialysis Existing AV fistula with good bruit Hypotension, resolved now hypertension Anemia of chronic disease Generalized weakness SNU resident Diabetes type 2 on low-dose insulin symptomatic with lethargy hypotension not improved on dopamine, not able to wean CXR 07/21 The patient is post CABG procedure. The cardiac silhouette is mild to moderately enlarged. Atherosclerotic calcification of the thoracic aorta is seen. The thoracic aorta is tortuous. Prominence of pulmonary vasculature is seen consistent with CHF. Left lower lobe atelectasis and or infiltrate is noted. No pneumothorax or pleural effusion is seen. The osseous structures are unchanged.? ASPIRATION SILENT 07/22 ct chest patchy ground glass opacification of the lungs. Interval development of small pleural effusions right greater than left, with underlying atelectasis. The appearance suggests mild congestive failure, however an atypical infectious process, or inflammatory etiology is possible. MOD-SEVERE protein-caloric malnutrition PLAN: DOPAMINE DRIP BP SUPPORT, WEANING not successful ID CONSULT VIRAL RESP PANEL RSV DIALYSIS- PT OT Sliding-scale insulin moderate dose Renal diet Renal FOLLOWING Zosyn per pharmacy Follow cultures FREQUENT LABS Back to [facility] on d/c Small IV 5% albumin boluses can be administered if maps dropped below 65 Full code SWALLOW , VIDEO on hold D/W ST 38 min visit time, pt exam chart review > 50% time with exam, chart review pt care coordination, GUARDED // poor PROGNOSIS PER MY CHART REVIEW Vitals Vitals Vital Signs Date Time Temp Pulse Resp B/P (MAP) Pulse Ox O2 Delivery O2 Flow Rate FiO2 07/24/18 08:08 93 Nasal Cannula 2.0 07/24/18 06:30 86 134/103 (113) 07/24/18 06:00 27 07/24/18 04:00 97.4 97.4 Physical Exam Physical Exam GENERAL: Alert, oriented x 3 female, lying in bed comfortably, in no acute distress, cooperative. HEENT: Normocephalic, atraumatic, anicteric. No thrush. Oral mucosa dry NECK: Supple. No JVD. LUNGS: Dec bs at bases otherwise clear anteriorly HEART: S1, S2. No gallops or murmurs. ABDOMEN: Soft, obese. Bowel sounds present. EXTREMITIES: No edema, no cyanosis. DERMATOLOGIC: No generalized rash. Chronic skin changes present in both lower extremities. No evidence of infection. Right upper extremity fistula site looks okay. CENTRAL NERVOUS SYSTEM: Alert and oriented. Grossly nonfocal. General: Alert, Oriented X3, Cooperative, mild distress Heart: Regular rate, Normal S1 Lungs: Wheezing, Crackles (less crackles) Abdomen: Normal bowel sounds, No masses Extremities: No clubbing, No cyanosis, No edema, Normal pulses, No tenderness/ swelling Skin: No rashes, No breakdown, No significant lesion Labs LABS Laboratory Tests Test 07/23/18 11:47 07/23/18 17:14 07/23/18 21:46 07/24/18 04:45 Glucose (Fingerstick) 265 mg/dL (70-99) 259 mg/dL (70-99) 235 mg/dL (70-99) White Blood Count 13.6 x10^3/uL (4.0-11.0) Red Blood Count 3.67 x10^6/uL (3.50-5.40) Hemoglobin 12.1 g/dL (12.0-15.5) Hematocrit 37.9 % (36.0-47.0) Mean Corpuscular Volume 103 fL (79-100) Mean Corpuscular Hemoglobin 33 pg (25-35) Mean Corpuscular Hemoglobin Concent 32 g/dL (31-37) Red Cell Distribution Width 15.7 % (11.5-14.5) Platelet Count 148 x10^3/uL (140-400) Neutrophils (%) (Auto) 89 % (31-73) Lymphocytes (%) (Auto) 6 % (24-48) Monocytes (%) (Auto) 5 % (0-9) Eosinophils (%) (Auto) 0 % (0-3) Basophils (%) (Auto) 0 % (0-3) Neutrophils # (Auto) 12.0 x10^3uL (1.8-7.7) Lymphocytes # (Auto) 0.8 x10^3/uL (1.0-4.8) Monocytes # (Auto) 0.7 x10^3/uL (0.0-1.1) Eosinophils # (Auto) 0.0 x10^3/uL (0.0-0.7) Basophils # (Auto) 0.1 x10^3/uL (0.0-0.2) Sodium Level 132 mmol/L (136-145) Potassium Level 5.1 mmol/L (3.5-5.1) Chloride Level 92 mmol/L (98-107) Carbon Dioxide Level 22 mmol/L (21-32) Anion Gap 18 (6-14) Blood Urea Nitrogen 68 mg/dL (7-20) Creatinine 5.5 mg/dL (0.6-1.0) Estimated GFR (Cockcroft-Gault) 7.4 BUN/Creatinine Ratio 12 (6-20) Glucose Level 297 mg/dL (70-99) Calcium Level 8.1 mg/dL (8.5-10.1) Phosphorus Level 3.7 mg/dL (2.6-4.7) Magnesium Level 2.6 mg/dL (1.8-2.4) Total Bilirubin 1.2 mg/dL (0.2-1.0) Aspartate Amino Transf (AST/SGOT) 24 U/L (15-37) Alanine Aminotransferase (ALT/SGPT) 12 U/L (14-59) Alkaline Phosphatase 166 U/L (46-116) Total Protein 6.4 g/dL (6.4-8.2) Albumin 2.8 g/dL (3.4-5.0) Albumin/Globulin Ratio 0.8 (1.0-1.7) Test 07/24/18 08:39 Glucose (Fingerstick) 191 mg/dL (70-99) Assessment and Plan Assessmemt and Plan Problems Medical Problems: (1) Congestive heart failure Status: Acute Comment Review of Relevant I have reviewed the following items smith (where applicable) has been applied. Labs Laboratory Tests Test 07/22/18 10:30 07/22/18 11:26 07/22/18 16:33 07/22/18 20:35 Miscellaneous Test Comment (.) Glucose (Fingerstick) 252 mg/dL (70-99) 272 mg/dL (70-99) 275 mg/dL (70-99) Test 07/23/18 05:20 07/23/18 08:15 07/23/18 11:47 07/23/18 17:14 White Blood Count 12.7 x10^3/uL (4.0-11.0) Red Blood Count 3.51 x10^6/uL (3.50-5.40) Hemoglobin 11.6 g/dL (12.0-15.5) Hematocrit 36.5 % (36.0-47.0) Mean Corpuscular Volume 104 fL (79-100) Mean Corpuscular Hemoglobin 33 pg (25-35) Mean Corpuscular Hemoglobin Concent 32 g/dL (31-37) Red Cell Distribution Width 16.0 % (11.5-14.5) Platelet Count 143 x10^3/uL (140-400) Neutrophils (%) (Auto) 92 % (31-73) Lymphocytes (%) (Auto) 4 % (24-48) Monocytes (%) (Auto) 3 % (0-9) Eosinophils (%) (Auto) 0 % (0-3) Basophils (%) (Auto) 0 % (0-3) Neutrophils # (Auto) 11.7 x10^3uL (1.8-7.7) Lymphocytes # (Auto) 0.6 x10^3/uL (1.0-4.8) Monocytes # (Auto) 0.4 x10^3/uL (0.0-1.1) Eosinophils # (Auto) 0.0 x10^3/uL (0.0-0.7) Basophils # (Auto) 0.0 x10^3/uL (0.0-0.2) Sodium Level 131 mmol/L (136-145) Potassium Level 4.6 mmol/L (3.5-5.1) Chloride Level 92 mmol/L (98-107) Carbon Dioxide Level 27 mmol/L (21-32) Anion Gap 12 (6-14) Blood Urea Nitrogen 52 mg/dL (7-20) Creatinine 4.7 mg/dL (0.6-1.0) Estimated GFR (Cockcroft-Gault) 8.8 Glucose Level 338 mg/dL (70-99) Calcium Level 8.2 mg/dL (8.5-10.1) Phosphorus Level 3.5 mg/dL (2.6-4.7) Magnesium Level 2.7 mg/dL (1.8-2.4) Albumin 2.7 g/dL (3.4-5.0) Glucose (Fingerstick) 304 mg/dL (70-99) 265 mg/dL (70-99) 259 mg/dL (70-99) Test 07/23/18 21:46 07/24/18 04:45 07/24/18 08:39 Glucose (Fingerstick) 235 mg/dL (70-99) 191 mg/dL (70-99) White Blood Count 13.6 x10^3/uL (4.0-11.0) Red Blood Count 3.67 x10^6/uL (3.50-5.40) Hemoglobin 12.1 g/dL (12.0-15.5) Hematocrit 37.9 % (36.0-47.0) Mean Corpuscular Volume 103 fL (79-100) Mean Corpuscular Hemoglobin 33 pg (25-35) Mean Corpuscular Hemoglobin Concent 32 g/dL (31-37) Red Cell Distribution Width 15.7 % (11.5-14.5) Platelet Count 148 x10^3/uL (140-400) Neutrophils (%) (Auto) 89 % (31-73) Lymphocytes (%) (Auto) 6 % (24-48) Monocytes (%) (Auto) 5 % (0-9) Eosinophils (%) (Auto) 0 % (0-3) Basophils (%) (Auto) 0 % (0-3) Neutrophils # (Auto) 12.0 x10^3uL (1.8-7.7) Lymphocytes # (Auto) 0.8 x10^3/uL (1.0-4.8) Monocytes # (Auto) 0.7 x10^3/uL (0.0-1.1) Eosinophils # (Auto) 0.0 x10^3/uL (0.0-0.7) Basophils # (Auto) 0.1 x10^3/uL (0.0-0.2) Sodium Level 132 mmol/L (136-145) Potassium Level 5.1 mmol/L (3.5-5.1) Chloride Level 92 mmol/L (98-107) Carbon Dioxide Level 22 mmol/L (21-32) Anion Gap 18 (6-14) Blood Urea Nitrogen 68 mg/dL (7-20) Creatinine 5.5 mg/dL (0.6-1.0) Estimated GFR (Cockcroft-Gault) 7.4 BUN/Creatinine Ratio 12 (6-20) Glucose Level 297 mg/dL (70-99) Calcium Level 8.1 mg/dL (8.5-10.1) Phosphorus Level 3.7 mg/dL (2.6-4.7) Magnesium Level 2.6 mg/dL (1.8-2.4) Total Bilirubin 1.2 mg/dL (0.2-1.0) Aspartate Amino Transf (AST/SGOT) 24 U/L (15-37) Alanine Aminotransferase (ALT/SGPT) 12 U/L (14-59) Alkaline Phosphatase 166 U/L (46-116) Total Protein 6.4 g/dL (6.4-8.2) Albumin 2.8 g/dL (3.4-5.0) Albumin/Globulin Ratio 0.8 (1.0-1.7) Laboratory Tests Test 07/23/18 11:47 07/23/18 17:14 07/23/18 21:46 07/24/18 04:45 Glucose (Fingerstick) 265 mg/dL (70-99) 259 mg/dL (70-99) 235 mg/dL (70-99) White Blood Count 13.6 x10^3/uL (4.0-11.0) Red Blood Count 3.67 x10^6/uL (3.50-5.40) Hemoglobin 12.1 g/dL (12.0-15.5) Hematocrit 37.9 % (36.0-47.0) Mean Corpuscular Volume 103 fL (79-100) Mean Corpuscular Hemoglobin 33 pg (25-35) Mean Corpuscular Hemoglobin Concent 32 g/dL (31-37) Red Cell Distribution Width 15.7 % (11.5-14.5) Platelet Count 148 x10^3/uL (140-400) Neutrophils (%) (Auto) 89 % (31-73) Lymphocytes (%) (Auto) 6 % (24-48) Monocytes (%) (Auto) 5 % (0-9) Eosinophils (%) (Auto) 0 % (0-3) Basophils (%) (Auto) 0 % (0-3) Neutrophils # (Auto) 12.0 x10^3uL (1.8-7.7) Lymphocytes # (Auto) 0.8 x10^3/uL (1.0-4.8) Monocytes # (Auto) 0.7 x10^3/uL (0.0-1.1) Eosinophils # (Auto) 0.0 x10^3/uL (0.0-0.7) Basophils # (Auto) 0.1 x10^3/uL (0.0-0.2) Sodium Level 132 mmol/L (136-145) Potassium Level 5.1 mmol/L (3.5-5.1) Chloride Level 92 mmol/L (98-107) Carbon Dioxide Level 22 mmol/L (21-32) Anion Gap 18 (6-14) Blood Urea Nitrogen 68 mg/dL (7-20) Creatinine 5.5 mg/dL (0.6-1.0) Estimated GFR (Cockcroft-Gault) 7.4 BUN/Creatinine Ratio 12 (6-20) Glucose Level 297 mg/dL (70-99) Calcium Level 8.1 mg/dL (8.5-10.1) Phosphorus Level 3.7 mg/dL (2.6-4.7) Magnesium Level 2.6 mg/dL (1.8-2.4) Total Bilirubin 1.2 mg/dL (0.2-1.0) Aspartate Amino Transf (AST/SGOT) 24 U/L (15-37) Alanine Aminotransferase (ALT/SGPT) 12 U/L (14-59) Alkaline Phosphatase 166 U/L (46-116) Total Protein 6.4 g/dL (6.4-8.2) Albumin 2.8 g/dL (3.4-5.0) Albumin/Globulin Ratio 0.8 (1.0-1.7) Test 07/24/18 08:39 Glucose (Fingerstick) 191 mg/dL (70-99) Medications Current Medications Albuterol/ Ipratropium (Duoneb) 3 ml 1X ONCE NEB Last administered on at 12:57; Start 07/19/18 at 12:45; Stop 07/19/18 at 12:46; Status DC Ondansetron HCl (Zofran) 4 mg PRN Q8HRS PRN IV NAUSEA/VOMITING; Start 07/19/18 at 14:30; Stop 07/20/18 at 14:29; Status DC Acetaminophen (Tylenol) 650 mg PRN Q4HRS PRN PO FEVER; Start 07/19/18 at 14:30 ; Stop 07/20/18 at 08:37; Status DC Nitroglycerin (Nitrostat) 0.4 mg PRN Q5MIN PRN SL CHEST PAIN; Start 07/19/18 at 14:30; Stop 07/20/18 at 14:29; Status DC Albuterol/ Ipratropium (Duoneb) 3 ml RTQID NEB ; Start 07/19/18 at 16:00; Stop 07/20/18 at 15:59; Status Cancel Aspirin (Tracee Aspirin) 325 mg DAILY PO Last administered on 07/23/18at 08:35; Start 07/19/18 at 15:00 Carvedilol (Coreg) 3.125 mg BIDWMEALS PO ; Start 07/19/18 at 17:00; Stop at 19:42; Status DC Cinacalcet (Sensipar) 30 mg DAILY PO Last administered on 07/23/18at 08:34; Start 07/19/18 at 15:00 Diclofenac Sodium (Voltaren) 1 grisel BID TP Last administered on 07/23/18 21:49 ; Start 07/19/18 at 21:00 Fentanyl (Duragesic 12mcg/ Hr Patch) 1 patch Q3DAYS TD ; Start 07/19/18 at 15:00 ; Stop 07/19/18 at 19:42; Status DC Vitamin B Complex/ Vitamin C (Bela-Roland) 1 tab DAILYBFRSUP PO Last administered on 07/23/18 17:57; Start 07/19/18 at 17:00 Ondansetron HCl (Zofran Odt) 4 mg PRN Q6HRS PRN PO NAUSEA/VOMITING; Start 07/19 at 14:45 Sevelamer Carbonate (Renvela) 2.4 gm TIDWMEALS PO Last administered on 17:58; Start 07/19/18 at 17:00 Acetaminophen (Tylenol) 500 mg PRN Q6HRS PRN PO MILD PAIN / TEMP; Start at 14:45 Latanoprost (Xalatan) 1 drop QHS OU Last administered on 07/23/18 21:49; Start 07/19/18 at 21:00 Calcitriol (Rocaltrol) 0.25 mcg DAILY PO Last administered on 07/23/18 08:34; Start 07/20/18 at 09:00 Vitamin D (Vitamin D3) 1,000 unit DAILY PO Last administered on 07/23/18 08:35 ; Start 07/20/18 at 09:00 Hydromorphone HCl (Dilaudid) 2 mg PRN Q8HRS PRN PO MODERATE PAIN, SEVERE PAIN; Start 07/19/18 at 15:00; Stop 07/20/18 at 09:31; Status DC Insulin Glargine (Lantus) 5 units QHS SQ Last administered on 07/23/18 21:54; Start 07/19/18 at 21:00 Non-Formulary Medication (Latanoprost/Pf (Latanoprost 0.005% Eye Drop)) 7.5 ml QHS OP ; Start 07/19/18 at 21:00; Status UNV Pantoprazole Sodium (Protonix) 40 mg DAILYAC PO Last administered on 07/23/18 08:35; Start 07/20/18 at 07:30 Piperacillin Sod/ Tazobactam Sod (Zosyn Per Pharmacy) 1 each PRN DAILY PRN MC SEE COMMENTS; Start 07/19/18 at 14:45 Albuterol/ Ipratropium (Duoneb) 3 ml RTQID NEB Last administered on 07/24/18 08:08; Start 07/19/18 at 16:00 Guaifenesin (Robitussin Dm) 10 ml QID PO Last administered on 07/23/18 17:58; Start 07/19/18 at 17:00 Temazepam (Restoril) 7.5 mg PRN QHS PRN PO INSOMNIA Last administered on 20:42; Start 07/19/18 at 14:45 Insulin Human Lispro (HumaLOG) 0-7 UNITS TIDWMEALS SQ Last administered on 07/23 18:06; Start 07/19/18 at 17:00 Dextrose (Dextrose 50%-Water Syringe) 12.5 gm PRN Q15MIN PRN IV SEE COMMENTS; Start 07/19/18 at 14:45 Piperacillin Sod/ Tazobactam Sod 2.25 gm/Sodium Chloride 50 ml @ 100 mls/hr Q8H IV Last administered on 07/24/18at 00:10; Start 07/19/18 at 16:00; Stop at 08:08; Status DC Furosemide (Lasix) 40 mg 1X ONCE IVP Last administered on 07/19/18at 14:52; Start 07/19/18 at 14:45; Stop 07/19/18 at 14:52; Status DC Docusate Sodium (Colace) 100 mg BID PO Last administered on 07/23/18 21:48; Start 07/19/18 at 21:00 Magnesium Hydroxide (Milk Of Magnesia) 2,400 mg PRN DAILY PRN PO CONSTIPATION; Start 07/19/18 at 19:45 Sodium Monofluorophosphate (Fleet Adult) 133 ml PRN DAILY PRN RC CONSTIPATION; Start 07/19/18 at 19:45; Stop 07/22/18 at 12:17; Status DC Bisacodyl (Dulcolax Supp) 10 mg PRN DAILY PRN CA CONSTIPATION 1ST CHOICE; Start 07/19/18 at 19:45 Polyethylene Glycol (miraLAX PACKET) 17 gm BID PO Last administered on at 08:42; Start 07/19/18 at 21:00 Sennosides (Senna) 8.6 mg DAILY PO Last administered on 07/21/18at 08:37; Start 07/20/18 at 09:00 Lactobacillus Rhamnosus (Culturelle) 1 cap BID PO Last administered on 21:48; Start 07/20/18 at 21:00 Methylprednisolone Sodium Succinate (SOLU-Medrol 40MG VIAL) 40 mg Q8HRS IV Last administered on 07/24/18 06:20; Start 07/20/18 at 14:00 Albumin Human 250 ml @ 62.5 mls/hr PRN Q6HRS PRN IV for MAP < 65 Last administered on 07/21/18at 20:45; Start 07/20/18 at 09:45 Magnesium Sulfate 50 ml @ 25 mls/hr PRN DAILY PRN IV for Mag < 1.7 on am labs; Start 07/20/18 at 09:45 Dopamine HCl/ Dextrose 250 ml @ 6.124 mls/ hr CONT PRN IV SEE I/O RECORD Last administered on 07/24/18at 08:43; Start 07/20/18 at 12:00 Sodium Chloride 1,000 ml @ 1,000 mls/hr Q1H PRN IV hypotension; Start 07/21/18 at 13:00; Stop 07/21/18 at 18:59; Status DC Sodium Chloride 1,000 ml @ 400 mls/hr Q2H30M PRN IV PATENCY; Start 07/21/18 at 13:00; Stop 07/22/18 at 00:59; Status DC Info (PHARMACY MONITORING -- do not chart) 1 each PRN DAILY PRN MC SEE COMMENTS ; Start 07/21/18 at 13:30; Status UNV Info (PHARMACY MONITORING -- do not chart) 1 each PRN DAILY PRN MC SEE COMMENTS ; Start 07/21/18 at 13:30; Stop 07/24/18 at 07:10; Status DC Albumin Human 100 ml @ 100 mls/hr 1X ONCE IV Last administered on 07/21/18at 14:00; Start 07/21/18 at 13:30; Stop 07/21/18 at 14:29; Status DC Sodium Chloride 500 ml @ 500 mls/hr 1X ONCE IV Last administered on at 11:14; Start 07/22/18 at 11:15; Stop 07/22/18 at 12:14; Status DC Digoxin (Lanoxin) 125 mcg QMWF@1600 PO ; Start 07/23/18 at 16:00; Stop 07/23/18 at 16:00; Status DC Digoxin (Lanoxin) 125 mcg 1X ONCE PO Last administered on 07/22/18at 12:26; Start 07/22/18 at 12:00; Stop 07/22/18 at 12:01; Status DC Midodrine (Proamatine) 2.5 mg [id number] PO Last administered on 07/24/18at 06:22; Start 07/22/18 at 13:00 Digoxin (Lanoxin) 125 mcg QTUTHSA PO ; Start 07/24/18 at 16:00 Sodium Chloride 500 ml @ 500 mls/hr 1X ONCE IV Last administered on at 15:42; Start 07/23/18 at 15:00; Stop 07/23/18 at 15:59; Status DC Sodium Chloride 1,000 ml @ 1,000 mls/hr Q1H PRN IV hypotension; Start 07/24/18 at 06:59; Stop 07/24/18 at 12:58 Albumin Human 200 ml @ 200 mls/hr 1X PRN PRN IV Hypotension Last administered on 07/24/18at 08:09; Start 07/24/18 at 07:00; Stop 07/24/18 at 12:59 Sodium Chloride 1,000 ml @ 400 mls/hr Q2H30M PRN IV PATENCY; Start 07/24/18 at 06:59; Stop 07/24/18 at 18:58 Info (PHARMACY MONITORING -- do not chart) 1 each PRN DAILY PRN MC SEE COMMENTS ; Start 07/24/18 at 07:00 Info (PHARMACY MONITORING -- do not chart) 1 each PRN DAILY PRN MC SEE COMMENTS ; Start 07/24/18 at 07:00; Status UNV Amoxicillin/ Clavulanate Potassium (Augmentin 500/ 125mg) 1 tab BID PO ; Start 07/24/18 at 09:00 Active Scripts Active Levemir (Insulin Detemir) 100 Unit/1 Ml Vial 5 Unit SQ QHS 30 Days Hold for < 140mg/dL Aspirin 325 Mg Tablet 1 Tab PO DAILY Reported Amlodipine Besylate 10 Mg Tablet 10 Mg PO DAILY Tylenol (Acetaminophen) 325 Mg Tablet 2 Tab PO PRN Q6HRS PRN Senna (Sennosides) 8.6 Mg Tablet 8.6 Mg PO DAILY Novolog Flexpen (Insulin Aspart) 100 Unit/1 Ml Insuln.pen 1 Unit SQ TIDAC Miralax (Polyethylene Glycol 3350) 17 Gm Powd.pack 1 Packet PO BID Milk Of Magnesia (Magnesium Hydroxide) 400 Mg/5 Ml Oral.susp 30 Ml PO PRN DAILY Duoneb 0.5-3(2.5) Mg/3 Ml (Albuterol/Ipratropium) 3 Ml Ampul.neb 3 Ml NEB TID Fleet Enema (Na Phos,M-B/Na Phos,Di-Ba) 133 Ml Enema 1 Each RC PRN DAILY PRN Dulcolax (Bisacodyl) 10 Mg Supp.rect 10 Mg RC PRN DAILY PRN Docusate Sodium 100 Mg Capsule 1 Cap PO BID Carvedilol (Carvedilol) 12.5 Mg Tablet 12.5 Mg PO BIDWMEALS Protonix (Pantoprazole Sodium) 20 Mg Tablet.dr 40 Mg PO DAILY Voltaren (Diclofenac Sodium) 100 Gm Gel..gram. 1 Gm TP BID Zofran Odt (Ondansetron) 4 Mg Tab.rapdis 4 Mg PO Q6HRS PRN Sensipar (Cinacalcet Hcl) 30 Mg Tablet 1 Tab PO DAILY Renvela (Sevelamer Carbonate) 2.4 Gm Powd.pack 2.4 Gm PO TIDWMEALS Lumigan (Bimatoprost) 2.5 Ml Drops 1 Drop EACHEYE QHS Calcitriol 0.25 Mcg Capsule 1 Cap PO DAILY Nephro-Roland Tablet (Folic Acid/Vitamin B Comp W-C) 0.8 Mg Tablet 1 Tab PO DAILYBFRSUP Vitamin D (Cholecalciferol (Vitamin D3)) 2,000 Unit Capsule 1 Cap PO DAILY Vitals/I & O Vital Sign - Last 24 Hours 07/23/18 07/23/18 07/23/18 07/23/18 11:00 11:55 13:09 15:00 Temp 98.0 98.0 98.0 98.0 Pulse 72 72 69 Resp 18 14 B/P (MAP) 82/42 73/52 (59) Pulse Ox 92 91 O2 Delivery Nasal Cannula Room Air Nasal Cannula O2 Flow Rate 2.0 2.0 07/23/18 07/23/18 07/23/18 07/23/18 15:52 17:29 17:57 19:00 Pulse 83 87 85 Resp 18 B/P (MAP) 70/42 (51) 96/68 Pulse Ox 90 O2 Delivery Room Air Room Air 07/23/18 07/23/18 07/23/18 07/23/18 19:15 19:45 19:54 20:00 Pulse 88 86 B/P (MAP) 127/84 (98) 128/81 (97) Pulse Ox 94 O2 Delivery Nasal Cannula Nasal Cannula O2 Flow Rate 2.0 2.0 07/23/18 07/23/18 07/23/18 07/23/18 20:00 20:45 21:00 21:45 Temp 96.8 96.8 Pulse 85 96 92 90 Resp B/P (MAP) 107/74 (85) 81/44 (56) 91/66 (74) Pulse Ox 94 93 O2 Delivery Nasal Cannula Nasal Cannula O2 Flow Rate 2.0 2.0 07/23/18 07/23/18 07/23/18 07/24/18 22:00 22:45 23:00 00:00 Pulse 90 86 94 Resp B/P (MAP) 98/75 (83) 77/44 (55) 92/66 (75) Pulse Ox 94 95 O2 Delivery Nasal Cannula Nasal Cannula Nasal Cannula O2 Flow Rate 2.0 2.0 4.0 07/24/18 07/24/18 07/24/18 07/24/18 00:00 00:15 00:45 01:00 Temp 97.1 97.1 Pulse 96 92 90 90 B/P (MAP) 136/66 (89) 114/77 (89) 143/67 (92) 96/64 (75) Pulse Ox 96 97 O2 Delivery Nasal Cannula Nasal Cannula O2 Flow Rate 4.0 4.0 07/24/18 07/24/18 07/24/18 07/24/18 01:15 01:45 02:00 03:00 Pulse 84 85 98 88 Resp B/P (MAP) 119/67 (84) 128/58 (81) 125/47 (73) 106/51 (69) Pulse Ox 98 98 O2 Delivery Nasal Cannula Nasal Cannula O2 Flow Rate 4.0 4.0 07/24/18 07/24/18 07/24/18 07/24/18 04:00 04:00 05:00 06:00 Temp 97.4 97.4 Pulse 90 94 92 Resp B/P (MAP) 127/94 (105) 87/62 (70) 111/80 (90) Pulse Ox 99 100 99 O2 Delivery Nasal Cannula Nasal Cannula Nasal Cannula Nasal Cannula O2 Flow Rate 4.0 4.0 4.0 4.0 07/24/18 07/24/18 07/24/18 07/24/18 06:15 06:22 06:30 08:08 Pulse 90 96 86 B/P (MAP) 130/60 (83) 130/60 134/103 (113) Pulse Ox 93 O2 Delivery Nasal Cannula O2 Flow Rate 2.0 Intake and Output 07/23/18 07/23/18 07/24/18 15:00 23:00 07:00 Intake Total 586 ml Output Total 0 ml 0 ml Balance 0 ml 586 ml DAY ROSADO MD Jul 24, 2018 09:19
--- NOTE | 2018-07-24 11:03 | PDOC ---
PULMONARY PROGRESS NOTES Subjective PT TRANSFERRED TO ICU FOR HYPOTENSION ON DOPAMINE Vitals Vital Signs Date Time Temp Pulse Resp B/P (MAP) Pulse Ox O2 Delivery O2 Flow Rate FiO2 07/24/18 10:00 81 18 111/48 (69) 100 Nasal Cannula 2.0 07/24/18 07:00 97.6 97.6 ROS: No Nausea, No Chest Pain, No Abdominal Pain, No Increase Cough General: Alert, No acute distress Lungs: Wheezing, Crackles (less crackles) Cardiovascular: S1, S2 Abdomen: Soft Neuro Exam: Alert Extremities: Other (EDEMA L) Skin: Warm Labs Laboratory Tests Test 07/22/18 11:26 07/22/18 16:33 07/22/18 20:35 07/23/18 05:20 Glucose (Fingerstick) 252 mg/dL (70-99) 272 mg/dL (70-99) 275 mg/dL (70-99) White Blood Count 12.7 x10^3/uL (4.0-11.0) Red Blood Count 3.51 x10^6/uL (3.50-5.40) Hemoglobin 11.6 g/dL (12.0-15.5) Hematocrit 36.5 % (36.0-47.0) Mean Corpuscular Volume 104 fL (79-100) Mean Corpuscular Hemoglobin 33 pg (25-35) Mean Corpuscular Hemoglobin Concent 32 g/dL (31-37) Red Cell Distribution Width 16.0 % (11.5-14.5) Platelet Count 143 x10^3/uL (140-400) Neutrophils (%) (Auto) 92 % (31-73) Lymphocytes (%) (Auto) 4 % (24-48) Monocytes (%) (Auto) 3 % (0-9) Eosinophils (%) (Auto) 0 % (0-3) Basophils (%) (Auto) 0 % (0-3) Neutrophils # (Auto) 11.7 x10^3uL (1.8-7.7) Lymphocytes # (Auto) 0.6 x10^3/uL (1.0-4.8) Monocytes # (Auto) 0.4 x10^3/uL (0.0-1.1) Eosinophils # (Auto) 0.0 x10^3/uL (0.0-0.7) Basophils # (Auto) 0.0 x10^3/uL (0.0-0.2) Sodium Level 131 mmol/L (136-145) Potassium Level 4.6 mmol/L (3.5-5.1) Chloride Level 92 mmol/L (98-107) Carbon Dioxide Level 27 mmol/L (21-32) Anion Gap 12 (6-14) Blood Urea Nitrogen 52 mg/dL (7-20) Creatinine 4.7 mg/dL (0.6-1.0) Estimated GFR (Cockcroft-Gault) 8.8 Glucose Level 338 mg/dL (70-99) Calcium Level 8.2 mg/dL (8.5-10.1) Phosphorus Level 3.5 mg/dL (2.6-4.7) Magnesium Level 2.7 mg/dL (1.8-2.4) Albumin 2.7 g/dL (3.4-5.0) Test 07/23/18 08:15 07/23/18 11:47 07/23/18 17:14 07/23/18 21:46 Glucose (Fingerstick) 304 mg/dL (70-99) 265 mg/dL (70-99) 259 mg/dL (70-99) 235 mg/dL (70-99) Test 07/24/18 04:45 07/24/18 08:39 White Blood Count 13.6 x10^3/uL (4.0-11.0) Red Blood Count 3.67 x10^6/uL (3.50-5.40) Hemoglobin 12.1 g/dL (12.0-15.5) Hematocrit 37.9 % (36.0-47.0) Mean Corpuscular Volume 103 fL (79-100) Mean Corpuscular Hemoglobin 33 pg (25-35) Mean Corpuscular Hemoglobin Concent 32 g/dL (31-37) Red Cell Distribution Width 15.7 % (11.5-14.5) Platelet Count 148 x10^3/uL (140-400) Neutrophils (%) (Auto) 89 % (31-73) Lymphocytes (%) (Auto) 6 % (24-48) Monocytes (%) (Auto) 5 % (0-9) Eosinophils (%) (Auto) 0 % (0-3) Basophils (%) (Auto) 0 % (0-3) Neutrophils # (Auto) 12.0 x10^3uL (1.8-7.7) Lymphocytes # (Auto) 0.8 x10^3/uL (1.0-4.8) Monocytes # (Auto) 0.7 x10^3/uL (0.0-1.1) Eosinophils # (Auto) 0.0 x10^3/uL (0.0-0.7) Basophils # (Auto) 0.1 x10^3/uL (0.0-0.2) Sodium Level 132 mmol/L (136-145) Potassium Level 5.1 mmol/L (3.5-5.1) Chloride Level 92 mmol/L (98-107) Carbon Dioxide Level 22 mmol/L (21-32) Anion Gap 18 (6-14) Blood Urea Nitrogen 68 mg/dL (7-20) Creatinine 5.5 mg/dL (0.6-1.0) Estimated GFR (Cockcroft-Gault) 7.4 BUN/Creatinine Ratio 12 (6-20) Glucose Level 297 mg/dL (70-99) Calcium Level 8.1 mg/dL (8.5-10.1) Phosphorus Level 3.7 mg/dL (2.6-4.7) Magnesium Level 2.6 mg/dL (1.8-2.4) Total Bilirubin 1.2 mg/dL (0.2-1.0) Aspartate Amino Transf (AST/SGOT) 24 U/L (15-37) Alanine Aminotransferase (ALT/SGPT) 12 U/L (14-59) Alkaline Phosphatase 166 U/L (46-116) Total Protein 6.4 g/dL (6.4-8.2) Albumin 2.8 g/dL (3.4-5.0) Albumin/Globulin Ratio 0.8 (1.0-1.7) Glucose (Fingerstick) 191 mg/dL (70-99) Laboratory Tests Test 07/23/18 11:47 07/23/18 17:14 07/23/18 21:46 07/24/18 04:45 Glucose (Fingerstick) 265 mg/dL (70-99) 259 mg/dL (70-99) 235 mg/dL (70-99) White Blood Count 13.6 x10^3/uL (4.0-11.0) Red Blood Count 3.67 x10^6/uL (3.50-5.40) Hemoglobin 12.1 g/dL (12.0-15.5) Hematocrit 37.9 % (36.0-47.0) Mean Corpuscular Volume 103 fL (79-100) Mean Corpuscular Hemoglobin 33 pg (25-35) Mean Corpuscular Hemoglobin Concent 32 g/dL (31-37) Red Cell Distribution Width 15.7 % (11.5-14.5) Platelet Count 148 x10^3/uL (140-400) Neutrophils (%) (Auto) 89 % (31-73) Lymphocytes (%) (Auto) 6 % (24-48) Monocytes (%) (Auto) 5 % (0-9) Eosinophils (%) (Auto) 0 % (0-3) Basophils (%) (Auto) 0 % (0-3) Neutrophils # (Auto) 12.0 x10^3uL (1.8-7.7) Lymphocytes # (Auto) 0.8 x10^3/uL (1.0-4.8) Monocytes # (Auto) 0.7 x10^3/uL (0.0-1.1) Eosinophils # (Auto) 0.0 x10^3/uL (0.0-0.7) Basophils # (Auto) 0.1 x10^3/uL (0.0-0.2) Sodium Level 132 mmol/L (136-145) Potassium Level 5.1 mmol/L (3.5-5.1) Chloride Level 92 mmol/L (98-107) Carbon Dioxide Level 22 mmol/L (21-32) Anion Gap 18 (6-14) Blood Urea Nitrogen 68 mg/dL (7-20) Creatinine 5.5 mg/dL (0.6-1.0) Estimated GFR (Cockcroft-Gault) 7.4 BUN/Creatinine Ratio 12 (6-20) Glucose Level 297 mg/dL (70-99) Calcium Level 8.1 mg/dL (8.5-10.1) Phosphorus Level 3.7 mg/dL (2.6-4.7) Magnesium Level 2.6 mg/dL (1.8-2.4) Total Bilirubin 1.2 mg/dL (0.2-1.0) Aspartate Amino Transf (AST/SGOT) 24 U/L (15-37) Alanine Aminotransferase (ALT/SGPT) 12 U/L (14-59) Alkaline Phosphatase 166 U/L (46-116) Total Protein 6.4 g/dL (6.4-8.2) Albumin 2.8 g/dL (3.4-5.0) Albumin/Globulin Ratio 0.8 (1.0-1.7) Test 07/24/18 08:39 Glucose (Fingerstick) 191 mg/dL (70-99) Medications Active Scripts Medications Dose Route/Sig Max Daily Dose Days Date Category Dose Instructions Senna (Sennosides) 8.6 Mg Tablet 8.6 Mg PO DAILY 07/19/18 Reported Novolog Flexpen (Insulin Aspart) 100 Unit/1 Ml Insuln.pen 1 Unit SQ TIDAC 07/19/18 Reported Miralax (Polyethylene Glycol 3350) 17 Gm Powd.pack 1 Packet PO BID 07/19/18 Reported Milk Of Magnesia (Magnesium Hydroxide) 400 Mg/5 Ml Oral.susp 30 Ml PO PRN DAILY 07/19/18 Reported Duoneb 0.5-3(2.5) Mg/3 Ml (Albuterol/Ipratropium) 3 Ml Ampul.neb 3 Ml NEB TID 07/19/18 Reported Fleet Enema (Na Phos,M-B/Na Phos,Di-Ba) 133 Ml Enema 1 Each RC PRN DAILY PRN 07/19/18 Reported Dulcolax (Bisacodyl) 10 Mg Supp.rect 10 Mg RC PRN DAILY PRN 07/19/18 Reported Docusate Sodium 100 Mg Capsule 1 Cap PO BID 07/19/18 Reported Carvedilol (Carvedilol) 12.5 Mg Tablet 12.5 Mg PO BIDWMEALS 07/19/18 Reported Levemir (Insulin Detemir) 100 Unit/1 Ml Vial 5 Unit SQ QHS 30 07/15/18 Rx Hold for < 140mg/dL Acetaminophen 500 Mg Tablet 500 Mg PO PRN Q6HRS PRN 30 07/14/18 Rx Aspirin 325 Mg Tablet 1 Tab PO DAILY 04/16/18 Rx Protonix (Pantoprazole Sodium) 20 Mg Tablet.dr 40 Mg PO DAILY 11/06/17 Reported Voltaren (Diclofenac Sodium) 100 Gm Gel..gram. 1 Gm TP BID 11/06/17 Reported Zofran Odt (Ondansetron) 4 Mg Tab.rapdis 4 Mg PO Q6HRS PRN 10/30/17 Reported Sensipar (Cinacalcet Hcl) 30 Mg Tablet 1 Tab PO DAILY 02/04/17 Reported Renvela (Sevelamer Carbonate) 2.4 Gm Powd.pack 2.4 Gm PO TIDWMEALS 02/04/17 Reported Lumigan (Bimatoprost) 2.5 Ml Drops 1 Drop EACHEYE QHS 02/04/17 Reported Calcitriol 0.25 Mcg Capsule 1 Cap PO DAILY 01/18/17 Reported Nephro-Roland Tablet (Folic Acid/Vitamin B Comp W-C) 0.8 Mg Tablet 1 Tab PO DAILYBFRSUP 11/26/15 Reported Vitamin D (Cholecalciferol (Vitamin D3)) 2,000 Unit Capsule 1 Cap PO DAILY 11/26/15 Reported Impression . IMPRESSION: 1. Dyspnea with cough and mild bronchospasm, likely related to viral pneumonitis, triggering bronchospasm. She may have adult onset reactive airway disease. 2. Recent abnormal CT chest on 07/11 suggesting upper lobe viral pneumonitis. She has some ground glass infiltrates at that time. 3. End-stage renal disease, on hemodialysis. 4. Underlying obesity. 5. Chronic hypoxic respiratory failure, on home oxygen 2 liters. 6 HYPOTENSION 7. LEONIE EXT EDEMA Plan . WILL RULE OUT DVT UPPER EXT PENDING DOPAMINE MAP GREATER THAN 60 SPOKE WITH PALLIATIVE CARE JULIANE MILLER MD Jul 24, 2018 11:03
[2018-07-24] MEDS: CHOLECALCIFEROL (VITAMIN D3) 1,000 UNIT TABLET PO SCH (11:16)
[2018-07-24] MEDS: ASPIRIN 325 MG TABLET PO SCH (11:16)
[2018-07-24] MEDS: CINACALCET HCL 30 MG TABLET PO SCH (11:16)
[2018-07-24] MEDS: AMOXICILLIN/K CLAV 500/125MG TABLET. PO SCH ×2 (11:16→20:33)
[2018-07-24] MEDS: SENNOSIDES 8.6 MG TABLET PO SCH (11:16)
[2018-07-24] MEDS: FOLIC/VIT B COMP W-C (RENAL) TABLET. PO SCH (11:17)
[2018-07-24] MEDS: PANTOPRAZOLE 40 MG TABLET.DR. PO SCH (11:17)
[2018-07-24] MEDS: CALCITRIOL 0.25 MCG CAPSULE. PO SCH (11:17)
[2018-07-24] MEDS: DICLOFENAC SODIUM 1% TOPICAL GEL 100GM TUBE. TP SCH ×2 (11:17→20:36)
[2018-07-24] MEDS: DOCUSATE SODIUM 100 MG CAPSULE. PO SCH ×2 (11:17→20:33)
[2018-07-24] MEDS: LACTOBACILLUS RHAMNOSUS GG 1 CAPSULE. PO SCH ×2 (11:18→20:33)
--- NOTE | 2018-07-24 11:36 | PDOC ---
Renal-Progress Notes Subjective Notes Notes SOB History of Present Illness Hx of present illness SAME AND SOMEWHAT WORSE Vitals Vitals Vital Signs Date Time Temp Pulse Resp B/P (MAP) Pulse Ox O2 Delivery O2 Flow Rate FiO2 07/24/18 10:00 81 18 111/48 (69) 100 Nasal Cannula 2.0 07/24/18 07:00 97.6 97.6 Weight Weight [ ] I.O. Intake and Output Intake and Output 07/24/18 07:00 Intake Total 586 ml Output Total 0 ml Balance 586 ml IV Total 586 ml Output Urine Total 0 ml Labs Labs Laboratory Tests Test 07/23/18 11:47 07/23/18 17:14 07/23/18 21:46 07/24/18 04:45 Glucose (Fingerstick) 265 mg/dL (70-99) 259 mg/dL (70-99) 235 mg/dL (70-99) White Blood Count 13.6 x10^3/uL (4.0-11.0) Red Blood Count 3.67 x10^6/uL (3.50-5.40) Hemoglobin 12.1 g/dL (12.0-15.5) Hematocrit 37.9 % (36.0-47.0) Mean Corpuscular Volume 103 fL (79-100) Mean Corpuscular Hemoglobin 33 pg (25-35) Mean Corpuscular Hemoglobin Concent 32 g/dL (31-37) Red Cell Distribution Width 15.7 % (11.5-14.5) Platelet Count 148 x10^3/uL (140-400) Neutrophils (%) (Auto) 89 % (31-73) Lymphocytes (%) (Auto) 6 % (24-48) Monocytes (%) (Auto) 5 % (0-9) Eosinophils (%) (Auto) 0 % (0-3) Basophils (%) (Auto) 0 % (0-3) Neutrophils # (Auto) 12.0 x10^3uL (1.8-7.7) Lymphocytes # (Auto) 0.8 x10^3/uL (1.0-4.8) Monocytes # (Auto) 0.7 x10^3/uL (0.0-1.1) Eosinophils # (Auto) 0.0 x10^3/uL (0.0-0.7) Basophils # (Auto) 0.1 x10^3/uL (0.0-0.2) Sodium Level 132 mmol/L (136-145) Potassium Level 5.1 mmol/L (3.5-5.1) Chloride Level 92 mmol/L (98-107) Carbon Dioxide Level 22 mmol/L (21-32) Anion Gap 18 (6-14) Blood Urea Nitrogen 68 mg/dL (7-20) Creatinine 5.5 mg/dL (0.6-1.0) Estimated GFR (Cockcroft-Gault) 7.4 BUN/Creatinine Ratio 12 (6-20) Glucose Level 297 mg/dL (70-99) Calcium Level 8.1 mg/dL (8.5-10.1) Phosphorus Level 3.7 mg/dL (2.6-4.7) Magnesium Level 2.6 mg/dL (1.8-2.4) Total Bilirubin 1.2 mg/dL (0.2-1.0) Aspartate Amino Transf (AST/SGOT) 24 U/L (15-37) Alanine Aminotransferase (ALT/SGPT) 12 U/L (14-59) Alkaline Phosphatase 166 U/L (46-116) Total Protein 6.4 g/dL (6.4-8.2) Albumin 2.8 g/dL (3.4-5.0) Albumin/Globulin Ratio 0.8 (1.0-1.7) Test 07/24/18 08:39 Glucose (Fingerstick) 191 mg/dL (70-99) Review of Systems Constitutional: yes: weakness, alert Ears/Nose/Throat: Yes: dysphagia Cardiovascular: Yes no symptom reported Gastrointestional: Yes: constipation Genitourinary: Yes: no symptom reported Musculoskeletal: Yes: muscle stiffness Skin: Yes no symptom reported Psychiatric/Neurological: Yes: no symptom reported Endocrine: Yes: no symptom reported Physical Exam General Appearance: no apparent distress Skin: warm Respiratory: decreased breath sounds Heart: S1S2, RRR Abdomen: soft Genitourinary: bladder flat, no mass Extremities: pulses present, no edema, atrophy Neurology: alert, oriented, follow commands Assessment Assessment IMP HYPOTENSION MILD HYPERVOLEMIA-RESOLVED ESRD-TTS ANEMIA DECONDITIONING DM II DYSPHAGIA PLAN HD TODAY UF ABOUT 2.5 TOLERATED PRESSORS NEEDED WILL HD AGAIN TOMORROW MIDODRINE MAY NEED TO REPEAT SWALLOW EVAL CALERO,NANCY S MD Jul 24, 2018 11:36
--- NOTE | 2018-07-24 11:52 | PDOC ---
CARDIO Progress Notes Date and Time Date of Service 07/24/18 Time of Evaluation 1115 Subjective Subjective: No Chest Pain, No shortness of breath, No Palpitations Vitals Vitals Vital Signs Date Time Temp Pulse Resp B/P (MAP) Pulse Ox O2 Delivery O2 Flow Rate FiO2 07/24/18 11:49 98 Nasal Cannula 2.0 07/24/18 11:00 92 17 107/55 (72) 07/24/18 07:00 97.6 97.6 Weight Weight [ ] Input and Output Intake and Output Intake and Output 07/24/18 07:00 Intake Total 586 ml Output Total 0 ml Balance 586 ml IV Total 586 ml Output Urine Total 0 ml Laboratory Labs Laboratory Tests Test 07/23/18 17:14 07/23/18 21:46 07/24/18 04:45 07/24/18 08:39 Glucose (Fingerstick) 259 mg/dL (70-99) 235 mg/dL (70-99) 191 mg/dL (70-99) White Blood Count 13.6 x10^3/uL (4.0-11.0) Red Blood Count 3.67 x10^6/uL (3.50-5.40) Hemoglobin 12.1 g/dL (12.0-15.5) Hematocrit 37.9 % (36.0-47.0) Mean Corpuscular Volume 103 fL (79-100) Mean Corpuscular Hemoglobin 33 pg (25-35) Mean Corpuscular Hemoglobin Concent 32 g/dL (31-37) Red Cell Distribution Width 15.7 % (11.5-14.5) Platelet Count 148 x10^3/uL (140-400) Neutrophils (%) (Auto) 89 % (31-73) Lymphocytes (%) (Auto) 6 % (24-48) Monocytes (%) (Auto) 5 % (0-9) Eosinophils (%) (Auto) 0 % (0-3) Basophils (%) (Auto) 0 % (0-3) Neutrophils # (Auto) 12.0 x10^3uL (1.8-7.7) Lymphocytes # (Auto) 0.8 x10^3/uL (1.0-4.8) Monocytes # (Auto) 0.7 x10^3/uL (0.0-1.1) Eosinophils # (Auto) 0.0 x10^3/uL (0.0-0.7) Basophils # (Auto) 0.1 x10^3/uL (0.0-0.2) Sodium Level 132 mmol/L (136-145) Potassium Level 5.1 mmol/L (3.5-5.1) Chloride Level 92 mmol/L (98-107) Carbon Dioxide Level 22 mmol/L (21-32) Anion Gap 18 (6-14) Blood Urea Nitrogen 68 mg/dL (7-20) Creatinine 5.5 mg/dL (0.6-1.0) Estimated GFR (Cockcroft-Gault) 7.4 BUN/Creatinine Ratio 12 (6-20) Glucose Level 297 mg/dL (70-99) Calcium Level 8.1 mg/dL (8.5-10.1) Phosphorus Level 3.7 mg/dL (2.6-4.7) Magnesium Level 2.6 mg/dL (1.8-2.4) Total Bilirubin 1.2 mg/dL (0.2-1.0) Aspartate Amino Transf (AST/SGOT) 24 U/L (15-37) Alanine Aminotransferase (ALT/SGPT) 12 U/L (14-59) Alkaline Phosphatase 166 U/L (46-116) Total Protein 6.4 g/dL (6.4-8.2) Albumin 2.8 g/dL (3.4-5.0) Albumin/Globulin Ratio 0.8 (1.0-1.7) Review of Systems Constitutional: yes: weakness, alert Ears/Nose/Throat: Yes: dysphagia Cardiovascular: Yes no symptom reported Gastrointestional: Yes: constipation Genitourinary: Yes: no symptom reported Musculoskeletal: Yes: muscle stiffness Skin: Yes no symptom reported Psychiatric/Neurological: Yes: no symptom reported Endocrine: Yes: no symptom reported Physical Exam HEENT: Neck Supple W Full Motion Chest: Symmetric LUNGS: Other (basilar crackles) Heart: S1S2, irregularly irregular (AFIB rate controlled) Extremities: Other (trace LE edema) Neurology: alert, follow commands Assessment Assessment 1. Hypotension. transferred to ICU overnight for same. BP remains marginal. Receiving albumin. Recent echo with LVEF 40% with severe TR. 2. H/o CAD s/p CABG CABG. Ejection fraction of 40% as above. CP free 3. Hypertension; with present hypotension as noted above 4. ESRD on HD 5. Chronic diastolic HF; appears compensated 6. Probable PNA 7. DM, II; uncontrolled. as per PCP 8. Persistent AFIB; rate controlled without therapy. ASA for stroke prophylaxis. Poor candidate for OAC DOMINIC AMARO APRN Jul 24, 2018 11:52
--- NOTE | 2018-07-24 13:16 | NUR ---
SS following up with discharge planning. Pt accepted clinically at [facility]. SS will await insurance determination with [employer] and will proceed accordingly.
--- NOTE | 2018-07-24 13:41 | PDOC2 ---
PALLIATIVE CARE Palliative Care Note Palliative Care Patient drowsy, slightly confused at times. Not sure what she would want if she declined more. Not sure if she would want a PEG tube if she were unable to swallow safely. Waiting for daughter to come in. Dialysis this am. Doesn't remember having dialysis today. Code Status; DNR/DNI Continue current treatment plan. Patient has been accept clinically at [facility]. Awaiting Insurance confirmation. HARRISON STUART Jul 24, 2018 13:41
[2018-07-24] MEDS: DIGOXIN 125 MCG TABLET. PO SCH (16:00)
--- NOTE | 2018-07-24 16:14 | RAD ---
Left upper extremity venous ultrasound, 07/23/2018: History: Arm edema, possible clot The study is just now being presented for review due to PACS issues. Duplex evaluation of the major veins in the left upper extremity was performed including grayscale, color-flow and spectral Doppler analysis. The left internal jugular, subclavian and axillary veins are patent. There is occlusive thrombus in one of the brachial veins in the left upper arm related to a PICC line. The other brachial vein is patent. Patent basilic and cephalic veins are present in the upper arm. Patent radial and ulnar veins are evident in the forearm. Subcutaneous edema is evident in the forearm. IMPRESSION: Occlusive thrombus in one brachial vein in the left upper arm surrounding an indwelling PICC line. Note: The cardiac cath lab technologist reports having given these findings to the patient's nurse at the time of the exam.
--- NOTE | 2018-07-24 16:27 | PDOC2 ---
PALLIATIVE CARE Palliative Care Note Palliative Care Spoke with patient and daughter in separate conversations. Reviewed need to continue with Dopamine. Swallow concerns discussed. Unable to do video swallow evaluation today. Patient undecided if she would want a PEG tube. Now NPO Daughter aware of [facility] Screen and transfer if decision is made to continue current aggressive care. Code Status; DNR/DNI Patient and daughter aware of progressive decline. HARRISON STUART Jul 24, 2018 16:27
[2018-07-24] MEDS: AMINO AC 3%/ELECTROLYTE/GLYCER 1,000 ML IV SCH (17:28)
[2018-07-24] MEDS ORDERED: HEPARIN for IV BOLUS 10,000 UNIT/10 ML VIAL. IV ONE (19:30)
[2018-07-24] MEDS ORDERED: HEPARIN 25,000UTS/500ML PREMIX 500 ML IV PRN ×2 (19:30)
[2018-07-24] MEDS ORDERED: HEPARIN for IV BOLUS 10,000 UNIT/10 ML VIAL. IV PRN ×2 (19:30)
--- NOTE | 2018-07-24 19:30 | NUR ---
Patient's ultrasound of R arm resulted--occluding clot in brachial vein. No call received about this result. Dr. Escobar paged, orders received to get PICC line removed, get central line placed if OK with renal, and start Heparin gtt for DVT protocol. Dr. Alonso also paged, page returned. Orders received to start Heparin gtt via DVT protocol, OK to continue using PICC line for tonight--no need to remove immediately, and we can look more into a central line in the AM.
[2018-07-24] MEDS: HEPARIN 25,000UTS/500ML PREMIX 500 ML IV PRN (19:45)
[2018-07-24] MEDS: LATANOPROST 0.005% OPHTH SOLUTION 2.5ML BOTTLE. OU SCH (20:36)
[2018-07-24] MEDS: INSULIN GLARGINE 300 UNITS/3 ML INSULN.PEN. SQ SCH (20:37)
[2018-07-25] VITALS (23 sets, daily range): BP systolic 84–146; BP diastolic 36–82
[2018-07-25 01:03] LABS: HEMATOCRIT 38.1 % (36.0-47.0); HEMOGLOBIN 12.6 g/dL (12.0-15.5); RED BLOOD COUNT 3.71 x10^6/uL (3.50-5.40); RED CELL DISTRIBUTION WIDTH 15.7 % (11.5-14.5); WHITE BLOOD COUNT 13.3 x10^3/uL (4.0-11.0)
[2018-07-25 05:36] LABS: BASO # 0.1 x10^3/uL (0.0-0.2); BASO % 1 % (0-3); EOS % 0 % (0-3); HEMATOCRIT 34.6 % (36.0-47.0); HEMOGLOBIN 11.8 g/dL (12.0-15.5); LYMPH # 0.7 x10^3/uL (1.0-4.8); LYMPH % 7 % (24-48); MEAN CORPUSCULAR HEMOGLOBIN 35 pg (25-35); MEAN CORPUSCULAR HGB CONC 34 g/dL (31-37); MEAN CORPUSCULAR VOLUME 103 fL (79-100); MONO # 0.9 x10^3/uL (0.0-1.1); MONO % 9 % (0-9); NEUT # 8.5 x10^3uL (1.8-7.7); NEUT % 84 % (31-73); PLATELET COUNT 161 x10^3/uL (140-400); RED BLOOD COUNT 3.37 x10^6/uL (3.50-5.40); RED CELL DISTRIBUTION WIDTH 15.8 % (11.5-14.5); WHITE BLOOD COUNT 10.2 x10^3/uL (4.0-11.0)
[2018-07-25 05:52] LABS: ALBUMIN 2.5 g/dL (3.4-5.0); CALCIUM 7.9 mg/dL (8.5-10.1); CREATININE 3.9 mg/dL (0.6-1.0); GFR 10.9; MAGNESIUM 2.6 mg/dL (1.8-2.4); POTASSIUM 4.1 mmol/L (3.5-5.1)
[2018-07-25] MEDS: methylPREDNISolone SOD SUCC PF 40 MG/ML VIAL. IV SCH ×3 (06:23→21:21)
[2018-07-25] MEDS: MIDODRINE 2.5 MG TABLET PO SCH ×3 (06:30→18:00)
[2018-07-25] MEDS: PANTOPRAZOLE 40 MG TABLET.DR. PO SCH (07:30)
[2018-07-25] MEDS: SEVELAMER CARBONATE 2.4 GM PACKET. PO SCH ×3 (08:00→17:00)
[2018-07-25] MEDS: IPRATRPIUM/ALBUTEROL 0.5/2.5MG 3 ML NEBU. NEB SCH ×4 (08:06→20:13)
[2018-07-25] MEDS: AMINO AC 3%/ELECTROLYTE/GLYCER 1,000 ML IV SCH (08:07)
[2018-07-25] MEDS: INSULIN LISPRO 300 UNITS/3 ML INSULN.PEN. SQ SCH ×3 (08:18→17:32)
[2018-07-25] MEDS: AMOXICILLIN/K CLAV 500/125MG TABLET. PO SCH (08:19)
[2018-07-25] MEDS: guaiFENesin DM 200MG/20MG 10 ML SYRUP PO SCH ×4 (08:20→20:31)
[2018-07-25] MEDS: CALCITRIOL 0.25 MCG CAPSULE. PO SCH (08:20)
[2018-07-25] MEDS: CINACALCET HCL 30 MG TABLET PO SCH (08:20)
[2018-07-25] MEDS: DOCUSATE SODIUM 100 MG CAPSULE. PO SCH ×2 (08:20→20:31)
[2018-07-25] MEDS: CHOLECALCIFEROL (VITAMIN D3) 1,000 UNIT TABLET PO SCH (08:20)
[2018-07-25] MEDS: POLYETHYLENE GLYCOL 3350 17 GM PACKET. PO SCH ×2 (08:20→20:31)
[2018-07-25] MEDS: ASPIRIN 325 MG TABLET PO SCH (08:20)
[2018-07-25] MEDS: SENNOSIDES 8.6 MG TABLET PO SCH (08:20)
[2018-07-25] MEDS: LACTOBACILLUS RHAMNOSUS GG 1 CAPSULE. PO SCH ×2 (08:20→20:31)
[2018-07-25] MEDS ORDERED: IV NORMAL SALINE 1000ML BAG 1,000 ML IV PRN ×2 (08:22)
[2018-07-25] MEDS ORDERED: DIALYSIS PATIENT. MC PRN (08:30)
[2018-07-25] MEDS ORDERED: ALBUMIN HUMAN 25% 200 ML IV ONE (08:30)
[2018-07-25] MEDS ORDERED: diphenhydrAMINE 50 MG/ML VIAL IV PRN ×2 (08:30)
--- NOTE | 2018-07-25 08:37 | NUR ---
SS following up with discharge planning. SS phoned and faxed clinical updates to [facility], ; fax [phone]. SS continuing to await insurance determination from [facility] and will proceed accordingly.
--- NOTE | 2018-07-25 09:04 | PDOC ---
Infectious Disease Note Subjective: Subjective Pt is off dopamin undergoing dialysis, says cough continues but has improved no fevers/n/v/d/abdo pain NPO D/W RN ROS: ROS Negative except for above. Vital Signs: Vital Signs Vital Signs Date Time Temp Pulse Resp B/P (MAP) Pulse Ox O2 Delivery O2 Flow Rate FiO2 07/25/18 08:06 100 Nasal Cannula 0.5 07/25/18 06:00 65 14 110/46 (67) 07/25/18 04:00 98.0 98.0 Physical Exam: PHYSICAL EXAM GENERAL: Alert, oriented x 3 female, lying in bed comfortably, in no acute distress, cooperative. HEENT: Normocephalic, atraumatic, anicteric. No thrush. Oral mucosa dry NECK: Supple. No JVD. LUNGS: Dec bs at bases otherwise clear anteriorly HEART: S1, S2. No gallops or murmurs. ABDOMEN: Soft, obese. Bowel sounds present. EXTREMITIES: No edema, no cyanosis. DERMATOLOGIC: No generalized rash. Chronic skin changes present in both lower extremities. No evidence of infection. Right upper extremity fistula site looks okay. CENTRAL NERVOUS SYSTEM: Alert and oriented. Grossly nonfocal. Medications: Inpatient Meds: Current Medications Medications (Trade) Dose Ordered Sig/Homa Start Time Stop Time Status Last Admin Dose Admin Acetaminophen (Tylenol) 500 mg PRN Q6HRS PRN 07/19/18 14:45 Albumin Human 200 ml @ 200 mls/hr 1X ONCE 07/25/18 08:30 07/25/18 09:29 07/25/18 08:49 200 MLS/HR Albuterol/ Ipratropium (Duoneb) 3 ml RTQID 07/19/18 16:00 07/25/18 08:06 3 ML Amino Acids/ Glycerin/ Electrolytes 1,000 ml @ 50 mls/hr Q20H 07/24/18 17:00 07/25/18 08:07 50 MLS/HR Amoxicillin/ Clavulanate Potassium (Augmentin 500/ 125mg) 1 tab BID 07/24/18 09:00 07/24/18 11:16 1 TAB Aspirin (Tracee Aspirin) 325 mg DAILY 07/19/18 15:00 07/24/18 11:16 325 MG Bisacodyl (Dulcolax Supp) 10 mg PRN DAILY PRN 3/23/19 19:45 Calcitriol (Rocaltrol) 0.25 mcg DAILY 07/20/18 09:00 07/24/18 11:17 0.25 MCG Carvedilol (Coreg) 3.125 mg BIDWMEALS 07/19/18 17:00 07/19/18 19:42 DC Cinacalcet (Sensipar) 30 mg DAILY 07/19/18 15:00 07/24/18 11:16 30 MG Dextrose (Dextrose 50%-Water Syringe) 12.5 gm PRN Q15MIN PRN 07/19/18 14:45 Diclofenac Sodium (Voltaren) 1 grisel BID 07/19/18 21:00 07/24/18 20:36 1 GRISEL Digoxin (Lanoxin) 125 mcg QTUTHSA 07/24/18 16:00 Diphenhydramine HCl (Benadryl) 25 mg 1X PRN PRN 07/25/18 08:30 07/26/18 08:29 Docusate Sodium (Colace) 100 mg BID 07/19/18 21:00 07/24/18 11:17 100 MG Dopamine HCl/ Dextrose 250 ml @ 6.124 mls/ hr CONT PRN 07/20/18 12:00 07/24/18 20:37 30.618 MLS/HR Fentanyl (Duragesic 12mcg/ Hr Patch) 1 patch Q3DAYS 07/19/18 15:00 07/19/18 19:42 DC Furosemide (Lasix) 40 mg 1X ONCE 07/19/18 14:45 07/19/18 14:52 DC 07/19/18 14:52 40 MG Guaifenesin (Robitussin Dm) 10 ml QID 07/19/18 17:00 07/23/18 17:58 10 ML Heparin Sodium (Porcine) (Heparin Sodium) 1,300 unit PRN Q6HRS PRN 07/24/18 19:30 Heparin Sodium/ Dextrose 500 ml @ 0 mls/hr CONT PRN 07/24/18 19:45 07/24/18 19:45 27.4 MLS/HR Hydromorphone HCl (Dilaudid) 2 mg PRN Q8HRS PRN 07/19/18 15:00 07/20/18 09:31 DC Info (PHARMACY MONITORING -- do not chart) 1 each PRN DAILY PRN 07/25/18 08:30 Insulin Glargine (Lantus) 5 units QHS 07/19/18 21:00 07/24/18 20:37 5 UNITS Insulin Human Lispro (HumaLOG) 0-7 UNITS TIDWMEALS 07/19/18 17:00 07/25/18 08:18 4 UNITS Lactobacillus Rhamnosus (Culturelle) 1 cap BID 07/20/18 21:00 07/24/18 11:18 1 CAP Latanoprost (Xalatan) 1 drop QHS 07/19/18 21:00 07/24/18 20:36 1 DROP Magnesium Hydroxide (Milk Of Magnesia) 2,400 mg PRN DAILY PRN 07/19/18 19:45 Magnesium Sulfate 50 ml @ 25 mls/hr PRN DAILY PRN 07/20/18 09:45 Methylprednisolone Sodium Succinate (SOLU-Medrol 40MG VIAL) 40 mg Q8HRS 07/20/18 14:00 07/25/18 06:23 40 MG Midodrine (Proamatine) 2.5 mg [id number] 07/22/18 13:00 07/24/18 13:22 2.5 MG Nitroglycerin (Nitrostat) 0.4 mg PRN Q5MIN PRN 07/19/18 14:30 07/20/18 14:29 DC Non-Formulary Medication (Latanoprost/Pf (Latanoprost 0.005% Eye Drop)) 7.5 ml QHS 07/19/18 21:00 UNV Ondansetron HCl (Zofran Odt) 4 mg PRN Q6HRS PRN 07/19/18 14:45 Ondansetron HCl (Zofran) 4 mg PRN Q8HRS PRN 07/19/18 14:30 07/20/18 14:29 DC Pantoprazole Sodium (Protonix) 40 mg DAILYAC 07/20/18 07:30 07/24/18 11:17 40 MG Piperacillin Sod/ Tazobactam Sod (Zosyn Per Pharmacy) 1 each PRN DAILY PRN 07/19/18 14:45 07/24/18 11:11 DC Piperacillin Sod/ Tazobactam Sod 2.25 gm/Sodium Chloride 50 ml @ 100 mls/hr Q8H 07/19/18 16:00 07/24/18 08:08 DC 07/24/18 00:10 100 MLS/HR Polyethylene Glycol (miraLAX PACKET) 17 gm BID 07/19/18 21:00 07/23/18 08:42 17 GM Sennosides (Senna) 8.6 mg DAILY 07/20/18 09:00 07/24/18 11:16 8.6 MG Sevelamer Carbonate (Renvela) 2.4 gm TIDWMEALS 07/19/18 17:00 07/23/18 17:58 2.4 GM Sodium Monofluorophosphate (Fleet Adult) 133 ml PRN DAILY PRN 07/19/18 19:45 07/22/18 12:17 DC Sodium Chloride 1,000 ml @ 400 mls/hr Q2H30M PRN 07/25/18 08:22 07/25/18 20:21 Temazepam (Restoril) 7.5 mg PRN QHS PRN 07/19/18 14:45 07/22/18 20:42 7.5 MG Vitamin B Complex/ Vitamin C (Bela-Roland) 1 tab DAILYBFRSUP 07/19/18 17:00 07/24/18 11:17 1 TAB Vitamin D (Vitamin D3) 1,000 unit DAILY 07/20/18 09:00 07/24/18 11:16 1,000 UNIT Labs: Lab Laboratory Tests Test 07/24/18 12:07 07/24/18 17:26 07/24/18 20:36 07/25/18 00:55 Glucose (Fingerstick) 182 mg/dL (70-99) 264 mg/dL (70-99) 236 mg/dL (70-99) White Blood Count 13.3 x10^3/uL (4.0-11.0) Red Blood Count 3.71 x10^6/uL (3.50-5.40) Hemoglobin 12.6 g/dL (12.0-15.5) Hematocrit 38.1 % (36.0-47.0) Mean Corpuscular Volume 103 fL (79-100) Mean Corpuscular Hemoglobin 34 pg (25-35) Mean Corpuscular Hemoglobin Concent 33 g/dL (31-37) Red Cell Distribution Width 15.7 % (11.5-14.5) Platelet Count 203 x10^3/uL (140-400) Heparin Anti-Xa Act, Unfractionated 1.07 IU/mL (0.30-0.70) Test 07/25/18 05:10 07/25/18 08:16 White Blood Count 10.2 x10^3/uL (4.0-11.0) Red Blood Count 3.37 x10^6/uL (3.50-5.40) Hemoglobin 11.8 g/dL (12.0-15.5) Hematocrit 34.6 % (36.0-47.0) Mean Corpuscular Volume 103 fL (79-100) Mean Corpuscular Hemoglobin 35 pg (25-35) Mean Corpuscular Hemoglobin Concent 34 g/dL (31-37) Red Cell Distribution Width 15.8 % (11.5-14.5) Platelet Count 161 x10^3/uL (140-400) Neutrophils (%) (Auto) 84 % (31-73) Lymphocytes (%) (Auto) 7 % (24-48) Monocytes (%) (Auto) 9 % (0-9) Eosinophils (%) (Auto) 0 % (0-3) Basophils (%) (Auto) 1 % (0-3) Neutrophils # (Auto) 8.5 x10^3uL (1.8-7.7) Lymphocytes # (Auto) 0.7 x10^3/uL (1.0-4.8) Monocytes # (Auto) 0.9 x10^3/uL (0.0-1.1) Eosinophils # (Auto) 0.0 x10^3/uL (0.0-0.7) Basophils # (Auto) 0.1 x10^3/uL (0.0-0.2) Sodium Level 132 mmol/L (136-145) Potassium Level 4.1 mmol/L (3.5-5.1) Chloride Level 94 mmol/L (98-107) Carbon Dioxide Level 26 mmol/L (21-32) Anion Gap 12 (6-14) Blood Urea Nitrogen 53 mg/dL (7-20) Creatinine 3.9 mg/dL (0.6-1.0) Estimated GFR (Cockcroft-Gault) 10.9 Glucose Level 324 mg/dL (70-99) Calcium Level 7.9 mg/dL (8.5-10.1) Phosphorus Level 3.0 mg/dL (2.6-4.7) Magnesium Level 2.6 mg/dL (1.8-2.4) Albumin 2.5 g/dL (3.4-5.0) Glucose (Fingerstick) 245 mg/dL (70-99) Objective: Assessment: 1. Dyspnea with cough and bronchospasm with recent viral pneumonia with possible secondary infection, also had high BNP. 2. Hypotensive during dialysis. cont to require pressors 3. Leukocytosis, on steroids. 4. End-stage renal disease, on hemodialysis. 5. Obesity. 6. Chronic hypoxic respiratory failure, on home O2 at 2 liters. 7. Anemia of chronic kidney disease. 8. ? aspiration Plan: Plan of Care Restart Zosyn pt is NPO will wean off soon Elevate LUE Continue supportive care. Follow up labs and cultures. D/W Nursing CHRISTOPH MOY MD Jul 25, 2018 09:04
[2018-07-25] MEDS: PIPERACILLIN/TAZOBACTAM 2.25 GM in IV NORMAL SALINE 50ML 50 ML IV SCH ×3 (09:30→21:21)
--- NOTE | 2018-07-25 09:30 | PDOC ---
PULMONARY PROGRESS NOTES Subjective NOW OFF PRESSORS TOLERATED HD OK Vitals Vital Signs Date Time Temp Pulse Resp B/P (MAP) Pulse Ox O2 Delivery O2 Flow Rate FiO2 07/25/18 09:00 77 14 109/54 (72) 99 Room Air 07/25/18 08:06 0.5 07/25/18 04:00 98.0 98.0 ROS: No Nausea, No Chest Pain, No Abdominal Pain, No Increase Cough General: Alert, No acute distress Lungs: Wheezing, Crackles (less crackles) Cardiovascular: S1, S2 Abdomen: Soft Neuro Exam: Alert Extremities: Other (EDEMA L) Skin: Warm Labs Laboratory Tests Test 07/23/18 11:47 07/23/18 17:14 07/23/18 21:46 07/24/18 04:45 Glucose (Fingerstick) 265 mg/dL (70-99) 259 mg/dL (70-99) 235 mg/dL (70-99) White Blood Count 13.6 x10^3/uL (4.0-11.0) Red Blood Count 3.67 x10^6/uL (3.50-5.40) Hemoglobin 12.1 g/dL (12.0-15.5) Hematocrit 37.9 % (36.0-47.0) Mean Corpuscular Volume 103 fL (79-100) Mean Corpuscular Hemoglobin 33 pg (25-35) Mean Corpuscular Hemoglobin Concent 32 g/dL (31-37) Red Cell Distribution Width 15.7 % (11.5-14.5) Platelet Count 148 x10^3/uL (140-400) Neutrophils (%) (Auto) 89 % (31-73) Lymphocytes (%) (Auto) 6 % (24-48) Monocytes (%) (Auto) 5 % (0-9) Eosinophils (%) (Auto) 0 % (0-3) Basophils (%) (Auto) 0 % (0-3) Neutrophils # (Auto) 12.0 x10^3uL (1.8-7.7) Lymphocytes # (Auto) 0.8 x10^3/uL (1.0-4.8) Monocytes # (Auto) 0.7 x10^3/uL (0.0-1.1) Eosinophils # (Auto) 0.0 x10^3/uL (0.0-0.7) Basophils # (Auto) 0.1 x10^3/uL (0.0-0.2) Sodium Level 132 mmol/L (136-145) Potassium Level 5.1 mmol/L (3.5-5.1) Chloride Level 92 mmol/L (98-107) Carbon Dioxide Level 22 mmol/L (21-32) Anion Gap 18 (6-14) Blood Urea Nitrogen 68 mg/dL (7-20) Creatinine 5.5 mg/dL (0.6-1.0) Estimated GFR (Cockcroft-Gault) 7.4 BUN/Creatinine Ratio 12 (6-20) Glucose Level 297 mg/dL (70-99) Calcium Level 8.1 mg/dL (8.5-10.1) Phosphorus Level 3.7 mg/dL (2.6-4.7) Magnesium Level 2.6 mg/dL (1.8-2.4) Total Bilirubin 1.2 mg/dL (0.2-1.0) Aspartate Amino Transf (AST/SGOT) 24 U/L (15-37) Alanine Aminotransferase (ALT/SGPT) 12 U/L (14-59) Alkaline Phosphatase 166 U/L (46-116) Total Protein 6.4 g/dL (6.4-8.2) Albumin 2.8 g/dL (3.4-5.0) Albumin/Globulin Ratio 0.8 (1.0-1.7) Test 07/24/18 08:39 07/24/18 12:07 07/24/18 17:26 07/24/18 20:36 Glucose (Fingerstick) 191 mg/dL (70-99) 182 mg/dL (70-99) 264 mg/dL (70-99) 236 mg/dL (70-99) Test 07/25/18 00:55 07/25/18 05:10 07/25/18 08:16 White Blood Count 13.3 x10^3/uL (4.0-11.0) 10.2 x10^3/uL (4.0-11.0) Red Blood Count 3.71 x10^6/uL (3.50-5.40) 3.37 x10^6/uL (3.50-5.40) Hemoglobin 12.6 g/dL (12.0-15.5) 11.8 g/dL (12.0-15.5) Hematocrit 38.1 % (36.0-47.0) 34.6 % (36.0-47.0) Mean Corpuscular Volume 103 fL (79-100) 103 fL (79-100) Mean Corpuscular Hemoglobin 34 pg (25-35) 35 pg (25-35) Mean Corpuscular Hemoglobin Concent 33 g/dL (31-37) 34 g/dL (31-37) Red Cell Distribution Width 15.7 % (11.5-14.5) 15.8 % (11.5-14.5) Platelet Count 203 x10^3/uL (140-400) 161 x10^3/uL (140-400) Heparin Anti-Xa Act, Unfractionated 1.07 IU/mL (0.30-0.70) Neutrophils (%) (Auto) 84 % (31-73) Lymphocytes (%) (Auto) 7 % (24-48) Monocytes (%) (Auto) 9 % (0-9) Eosinophils (%) (Auto) 0 % (0-3) Basophils (%) (Auto) 1 % (0-3) Neutrophils # (Auto) 8.5 x10^3uL (1.8-7.7) Lymphocytes # (Auto) 0.7 x10^3/uL (1.0-4.8) Monocytes # (Auto) 0.9 x10^3/uL (0.0-1.1) Eosinophils # (Auto) 0.0 x10^3/uL (0.0-0.7) Basophils # (Auto) 0.1 x10^3/uL (0.0-0.2) Sodium Level 132 mmol/L (136-145) Potassium Level 4.1 mmol/L (3.5-5.1) Chloride Level 94 mmol/L (98-107) Carbon Dioxide Level 26 mmol/L (21-32) Anion Gap 12 (6-14) Blood Urea Nitrogen 53 mg/dL (7-20) Creatinine 3.9 mg/dL (0.6-1.0) Estimated GFR (Cockcroft-Gault) 10.9 Glucose Level 324 mg/dL (70-99) Calcium Level 7.9 mg/dL (8.5-10.1) Phosphorus Level 3.0 mg/dL (2.6-4.7) Magnesium Level 2.6 mg/dL (1.8-2.4) Albumin 2.5 g/dL (3.4-5.0) Glucose (Fingerstick) 245 mg/dL (70-99) Laboratory Tests Test 07/24/18 12:07 07/24/18 17:26 07/24/18 20:36 07/25/18 00:55 Glucose (Fingerstick) 182 mg/dL (70-99) 264 mg/dL (70-99) 236 mg/dL (70-99) White Blood Count 13.3 x10^3/uL (4.0-11.0) Red Blood Count 3.71 x10^6/uL (3.50-5.40) Hemoglobin 12.6 g/dL (12.0-15.5) Hematocrit 38.1 % (36.0-47.0) Mean Corpuscular Volume 103 fL (79-100) Mean Corpuscular Hemoglobin 34 pg (25-35) Mean Corpuscular Hemoglobin Concent 33 g/dL (31-37) Red Cell Distribution Width 15.7 % (11.5-14.5) Platelet Count 203 x10^3/uL (140-400) Heparin Anti-Xa Act, Unfractionated 1.07 IU/mL (0.30-0.70) Test 07/25/18 05:10 07/25/18 08:16 White Blood Count 10.2 x10^3/uL (4.0-11.0) Red Blood Count 3.37 x10^6/uL (3.50-5.40) Hemoglobin 11.8 g/dL (12.0-15.5) Hematocrit 34.6 % (36.0-47.0) Mean Corpuscular Volume 103 fL (79-100) Mean Corpuscular Hemoglobin 35 pg (25-35) Mean Corpuscular Hemoglobin Concent 34 g/dL (31-37) Red Cell Distribution Width 15.8 % (11.5-14.5) Platelet Count 161 x10^3/uL (140-400) Neutrophils (%) (Auto) 84 % (31-73) Lymphocytes (%) (Auto) 7 % (24-48) Monocytes (%) (Auto) 9 % (0-9) Eosinophils (%) (Auto) 0 % (0-3) Basophils (%) (Auto) 1 % (0-3) Neutrophils # (Auto) 8.5 x10^3uL (1.8-7.7) Lymphocytes # (Auto) 0.7 x10^3/uL (1.0-4.8) Monocytes # (Auto) 0.9 x10^3/uL (0.0-1.1) Eosinophils # (Auto) 0.0 x10^3/uL (0.0-0.7) Basophils # (Auto) 0.1 x10^3/uL (0.0-0.2) Sodium Level 132 mmol/L (136-145) Potassium Level 4.1 mmol/L (3.5-5.1) Chloride Level 94 mmol/L (98-107) Carbon Dioxide Level 26 mmol/L (21-32) Anion Gap 12 (6-14) Blood Urea Nitrogen 53 mg/dL (7-20) Creatinine 3.9 mg/dL (0.6-1.0) Estimated GFR (Cockcroft-Gault) 10.9 Glucose Level 324 mg/dL (70-99) Calcium Level 7.9 mg/dL (8.5-10.1) Phosphorus Level 3.0 mg/dL (2.6-4.7) Magnesium Level 2.6 mg/dL (1.8-2.4) Albumin 2.5 g/dL (3.4-5.0) Glucose (Fingerstick) 245 mg/dL (70-99) Medications Active Scripts Medications Dose Route/Sig Max Daily Dose Days Date Category Dose Instructions Senna (Sennosides) 8.6 Mg Tablet 8.6 Mg PO DAILY 07/19/18 Reported Novolog Flexpen (Insulin Aspart) 100 Unit/1 Ml Insuln.pen 1 Unit SQ TIDAC 07/19/18 Reported Miralax (Polyethylene Glycol 3350) 17 Gm Powd.pack 1 Packet PO BID 07/19/18 Reported Milk Of Magnesia (Magnesium Hydroxide) 400 Mg/5 Ml Oral.susp 30 Ml PO PRN DAILY 07/19/18 Reported Duoneb 0.5-3(2.5) Mg/3 Ml (Albuterol/Ipratropium) 3 Ml Ampul.neb 3 Ml NEB TID 07/19/18 Reported Fleet Enema (Na Phos,M-B/Na Phos,Di-Ba) 133 Ml Enema 1 Each RC PRN DAILY PRN 07/19/18 Reported Dulcolax (Bisacodyl) 10 Mg Supp.rect 10 Mg RC PRN DAILY PRN 07/19/18 Reported Docusate Sodium 100 Mg Capsule 1 Cap PO BID 07/19/18 Reported Carvedilol (Carvedilol) 12.5 Mg Tablet 12.5 Mg PO BIDWMEALS 07/19/18 Reported Levemir (Insulin Detemir) 100 Unit/1 Ml Vial 5 Unit SQ QHS 30 07/15/18 Rx Hold for < 140mg/dL Acetaminophen 500 Mg Tablet 500 Mg PO PRN Q6HRS PRN 30 07/14/18 Rx Aspirin 325 Mg Tablet 1 Tab PO DAILY 04/16/18 Rx Protonix (Pantoprazole Sodium) 20 Mg Tablet.dr 40 Mg PO DAILY 11/06/17 Reported Voltaren (Diclofenac Sodium) 100 Gm Gel..gram. 1 Gm TP BID 11/06/17 Reported Zofran Odt (Ondansetron) 4 Mg Tab.rapdis 4 Mg PO Q6HRS PRN 10/30/17 Reported Sensipar (Cinacalcet Hcl) 30 Mg Tablet 1 Tab PO DAILY 02/04/17 Reported Renvela (Sevelamer Carbonate) 2.4 Gm Powd.pack 2.4 Gm PO TIDWMEALS 02/04/17 Reported Lumigan (Bimatoprost) 2.5 Ml Drops 1 Drop EACHEYE QHS 02/04/17 Reported Calcitriol 0.25 Mcg Capsule 1 Cap PO DAILY 01/18/17 Reported Nephro-Roland Tablet (Folic Acid/Vitamin B Comp W-C) 0.8 Mg Tablet 1 Tab PO DAILYBFRSUP 11/26/15 Reported Vitamin D (Cholecalciferol (Vitamin D3)) 2,000 Unit Capsule 1 Cap PO DAILY 11/26/15 Reported Impression . IMPRESSION: 1. Dyspnea with cough and mild bronchospasm, likely related to viral pneumonitis, triggering bronchospasm. She may have adult onset reactive airway disease. 2. Recent abnormal CT chest on 07/11 suggesting upper lobe viral pneumonitis. She has some ground glass infiltrates at that time. 3. End-stage renal disease, on hemodialysis. 4. Underlying obesity. 5. Chronic hypoxic respiratory failure, on home oxygen 2 liters. 6 HYPOTENSION IMPROVED 7. LEONIE EXT BRACHIAL CLOT Plan . STARTED ON HEPARIN FOR BRACHIAL CLOT OK TO TRANSFER TO FLOOR NEEDS PICC REMOVED CENTRAL LINE NEEDED AGREE WITH DR CALERO PALLIATIVE CARE WOULD BE APPROPRIATE FOR THIS PATIENT JULIANE MILLER MD Jul 25, 2018 09:30
--- NOTE | 2018-07-25 10:15 | PDOC2 ---
GI CONSULT Reason For Consult: Rectal bleeding HPI: HPI: 87 y/o female w/ PMH as below. Admitted this time w/ hypotension. Imaging showed occlusive thrombus in one brachial vein in the left upper arm surrounding an indwelling PICC line. Was given Heparin, then noted overnight with "blood trickling from the rectum." Chronic anemia - chart indicates anemia of chronic disease though can't see ever had anemia parameters - Hgb stable. Heparin stopped, no bleeding this morning. She was dialyzing when I saw - briefly opened one eye and shook head to give yes/no answers (and denied pain), no history beyond this. PMH: PMH: CAD, A Fib, CHF, HTN, DE, valvular disease, COPD, anemia, ESRD on HD, UTI, DM, hyperparathyroidism, CABG, RUE fistula FH: Family History: CAD, Other (unabel to obtain) Social History: Smoke: No ALCOHOL: none Drugs: None ROS: Denies pain. Vitals: Vitals: Vital Signs Date Time Temp Pulse Resp B/P (MAP) Pulse Ox O2 Delivery O2 Flow Rate FiO2 07/25/18 09:00 77 14 109/54 (72) 99 Room Air 07/25/18 08:06 0.5 07/25/18 04:00 98.0 98.0 Labs: Labs: Laboratory Tests Test 07/24/18 12:07 07/24/18 17:26 07/24/18 20:36 07/25/18 00:55 Glucose (Fingerstick) 182 mg/dL (70-99) 264 mg/dL (70-99) 236 mg/dL (70-99) White Blood Count 13.3 x10^3/uL (4.0-11.0) Red Blood Count 3.71 x10^6/uL (3.50-5.40) Hemoglobin 12.6 g/dL (12.0-15.5) Hematocrit 38.1 % (36.0-47.0) Mean Corpuscular Volume 103 fL (79-100) Mean Corpuscular Hemoglobin 34 pg (25-35) Mean Corpuscular Hemoglobin Concent 33 g/dL (31-37) Red Cell Distribution Width 15.7 % (11.5-14.5) Platelet Count 203 x10^3/uL (140-400) Heparin Anti-Xa Act, Unfractionated 1.07 IU/mL (0.30-0.70) Test 07/25/18 05:10 07/25/18 08:16 White Blood Count 10.2 x10^3/uL (4.0-11.0) Red Blood Count 3.37 x10^6/uL (3.50-5.40) Hemoglobin 11.8 g/dL (12.0-15.5) Hematocrit 34.6 % (36.0-47.0) Mean Corpuscular Volume 103 fL (79-100) Mean Corpuscular Hemoglobin 35 pg (25-35) Mean Corpuscular Hemoglobin Concent 34 g/dL (31-37) Red Cell Distribution Width 15.8 % (11.5-14.5) Platelet Count 161 x10^3/uL (140-400) Neutrophils (%) (Auto) 84 % (31-73) Lymphocytes (%) (Auto) 7 % (24-48) Monocytes (%) (Auto) 9 % (0-9) Eosinophils (%) (Auto) 0 % (0-3) Basophils (%) (Auto) 1 % (0-3) Neutrophils # (Auto) 8.5 x10^3uL (1.8-7.7) Lymphocytes # (Auto) 0.7 x10^3/uL (1.0-4.8) Monocytes # (Auto) 0.9 x10^3/uL (0.0-1.1) Eosinophils # (Auto) 0.0 x10^3/uL (0.0-0.7) Basophils # (Auto) 0.1 x10^3/uL (0.0-0.2) Sodium Level 132 mmol/L (136-145) Potassium Level 4.1 mmol/L (3.5-5.1) Chloride Level 94 mmol/L (98-107) Carbon Dioxide Level 26 mmol/L (21-32) Anion Gap 12 (6-14) Blood Urea Nitrogen 53 mg/dL (7-20) Creatinine 3.9 mg/dL (0.6-1.0) Estimated GFR (Cockcroft-Gault) 10.9 Glucose Level 324 mg/dL (70-99) Calcium Level 7.9 mg/dL (8.5-10.1) Phosphorus Level 3.0 mg/dL (2.6-4.7) Magnesium Level 2.6 mg/dL (1.8-2.4) Albumin 2.5 g/dL (3.4-5.0) Glucose (Fingerstick) 245 mg/dL (70-99) Allergies: Coded Allergies: morphine (Verified Adverse Reaction, Intermediate, HALLUCINATIONS, 08/13/16 ) Medications: Current Medications Medications (Trade) Dose Ordered Sig/Homa Route PRN Reason Start Time Stop Time Status Last Admin Dose Admin Amino Acids/ Glycerin/ Electrolytes 1,000 ml @ 50 mls/hr Q20H IV 07/24/18 17:00 07/25/18 08:07 Heparin Sodium (Porcine) (Heparin Sodium) 6,850 unit 1X ONCE IV 07/24/18 19:30 07/24/18 19:33 DC 07/24/18 19:38 Heparin Sodium/ Dextrose 500 ml @ 0 mls/hr CONT PRN IV SEE I/O RECORD 07/24/18 19:45 07/24/18 19:45 Albumin Human 200 ml @ 200 mls/hr 1X ONCE IV 07/25/18 08:30 07/25/18 09:29 DC 07/25/18 08:49 Imaging: Imaging: LUE US IMPRESSION: Occlusive thrombus in one brachial vein in the left upper arm surrounding an indwelling PICC line. Chest CT IMPRESSION: 1. Cardiomegaly and central vascular congestion with mild intralobular septal thickening and patchy ground glass opacification of the lungs. Interval development of small pleural effusions right greater than left, with underlying atelectasis. The appearance suggests mild congestive failure, however an atypical infectious process, or inflammatory etiology is possible. 2. 6 mm groundglass nodule, right lobe is unchanged. 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 DW pt's dtr Ila at bedside. Pt now w/increased audible upper airway congestion and aphonia. Able to produce phonation w/effort but < 3 syllables per breath unit w/ max effort. Non-productive cough. Remainder of exam largely unchange. IMPRESSIONS: Increased upper airway congestion. Pt generally weak, and at risk of aspiration, though current assessment does not find any indication of this when pt seated at 90*. Would con't current diet but avoid straw use. Feel pt would benefit from videoswallow study to further examine swallow function in r/ t respiratory status. PE: GEN: dialyzing HEENT: Atraumatic, eyes closed LUNGS: room air HEART: RRR ABD: NABS, S/ND/NT EXTREMITY: No edema SKIN: No rashes, no jaundice NEURO/PSYCH: shakes head no, doesn't speak A/P: A/P: LUE thrombus s/p Heparin, rectal bleeding - resolved Chronic anemia - Hgb not below baseline Hypotension, CAD, CHF, COPD, ESRD on HD CRC screen - unclear -- Agree w/ PPI - change to IV if needed. Monitor for recurrent bleeding. 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 REDD NAVARRO Jul 25, 2018 10:15
--- NOTE | 2018-07-25 10:32 | PDOC ---
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 , SNU resident, hypotension but now blood pressure 90'Ss symptomatic with lethargy 07/23 INC DYSPHONIA NEEDS SWALLOW STUDY 07/24 d/w pat, CONSIDER Palliative care transition, family meeting needed History of Present Illness History of Present Illness Assessment/Plan Assessment/Plan SOA, fluid overload-cannot rule out HCAP ESRD on dialysis-did not finish dialysis Existing AV fistula with good bruit Hypotension, resolved now hypertension Anemia of chronic disease Generalized weakness SNU resident Diabetes type 2 on low-dose insulin symptomatic with lethargy hypotension not improved on dopamine, not able to wean CXR 07/21 The patient is post CABG procedure. The cardiac silhouette is mild to moderately enlarged. Atherosclerotic calcification of the thoracic aorta is seen. The thoracic aorta is tortuous. Prominence of pulmonary vasculature is seen consistent with CHF. Left lower lobe atelectasis and or infiltrate is noted. No pneumothorax or pleural effusion is seen. The osseous structures are unchanged.? ASPIRATION SILENT 07/22 ct chest patchy ground glass opacification of the lungs. Interval development of small pleural effusions right greater than left, with underlying atelectasis. The appearance suggests mild congestive failure, however an atypical infectious process, or inflammatory etiology is possible. MOD-SEVERE protein-caloric malnutrition PLAN: DOPAMINE DRIP BP SUPPORT, WEANING not successful ID CONSULT VIRAL RESP PANEL RSV DIALYSIS- PT OT Sliding-scale insulin moderate dose Renal diet Renal FOLLOWING Zosyn per pharmacy Follow cultures FREQUENT LABS Back to HCR on d/c Small IV 5% albumin boluses can be administered if maps dropped below 65 Full code SWALLOW , VIDEO on hold D/W ST transfer to select when insurance approves 38 min visit time, pt exam chart review > 50% time with exam, chart review pt care coordination, GUARDED // poor PROGNOSIS PER MY CHART REVIEW Vitals Vitals Vital Signs Date Time Temp Pulse Resp B/P (MAP) Pulse Ox O2 Delivery O2 Flow Rate FiO2 07/25/18 09:00 77 14 109/54 (72) 99 Room Air 07/25/18 08:06 0.5 07/25/18 04:00 98.0 98.0 Physical Exam Physical Exam GENERAL: Alert, oriented x 3 female, lying in bed comfortably, in no acute distress, cooperative. HEENT: Normocephalic, atraumatic, anicteric. No thrush. Oral mucosa dry NECK: Supple. No JVD. LUNGS: Dec bs at bases otherwise clear anteriorly HEART: S1, S2. No gallops or murmurs. ABDOMEN: Soft, obese. Bowel sounds present. EXTREMITIES: No edema, no cyanosis. DERMATOLOGIC: No generalized rash. Chronic skin changes present in both lower extremities. No evidence of infection. Right upper extremity fistula site looks okay. CENTRAL NERVOUS SYSTEM: Alert and oriented. Grossly nonfocal. General: Alert, Oriented X3, Cooperative, mild distress Heart: Regular rate, Normal S1 Lungs: Wheezing, Crackles (less crackles) Abdomen: Normal bowel sounds, No masses Extremities: No clubbing, No cyanosis, No edema, Normal pulses, No tenderness/ swelling Skin: No rashes, No breakdown, No significant lesion Labs LABS Laboratory Tests Test 07/24/18 12:07 07/24/18 17:26 07/24/18 20:36 07/25/18 00:55 Glucose (Fingerstick) 182 mg/dL (70-99) 264 mg/dL (70-99) 236 mg/dL (70-99) White Blood Count 13.3 x10^3/uL (4.0-11.0) Red Blood Count 3.71 x10^6/uL (3.50-5.40) Hemoglobin 12.6 g/dL (12.0-15.5) Hematocrit 38.1 % (36.0-47.0) Mean Corpuscular Volume 103 fL (79-100) Mean Corpuscular Hemoglobin 34 pg (25-35) Mean Corpuscular Hemoglobin Concent 33 g/dL (31-37) Red Cell Distribution Width 15.7 % (11.5-14.5) Platelet Count 203 x10^3/uL (140-400) Heparin Anti-Xa Act, Unfractionated 1.07 IU/mL (0.30-0.70) Test 07/25/18 05:10 07/25/18 08:16 White Blood Count 10.2 x10^3/uL (4.0-11.0) Red Blood Count 3.37 x10^6/uL (3.50-5.40) Hemoglobin 11.8 g/dL (12.0-15.5) Hematocrit 34.6 % (36.0-47.0) Mean Corpuscular Volume 103 fL (79-100) Mean Corpuscular Hemoglobin 35 pg (25-35) Mean Corpuscular Hemoglobin Concent 34 g/dL (31-37) Red Cell Distribution Width 15.8 % (11.5-14.5) Platelet Count 161 x10^3/uL (140-400) Neutrophils (%) (Auto) 84 % (31-73) Lymphocytes (%) (Auto) 7 % (24-48) Monocytes (%) (Auto) 9 % (0-9) Eosinophils (%) (Auto) 0 % (0-3) Basophils (%) (Auto) 1 % (0-3) Neutrophils # (Auto) 8.5 x10^3uL (1.8-7.7) Lymphocytes # (Auto) 0.7 x10^3/uL (1.0-4.8) Monocytes # (Auto) 0.9 x10^3/uL (0.0-1.1) Eosinophils # (Auto) 0.0 x10^3/uL (0.0-0.7) Basophils # (Auto) 0.1 x10^3/uL (0.0-0.2) Sodium Level 132 mmol/L (136-145) Potassium Level 4.1 mmol/L (3.5-5.1) Chloride Level 94 mmol/L (98-107) Carbon Dioxide Level 26 mmol/L (21-32) Anion Gap 12 (6-14) Blood Urea Nitrogen 53 mg/dL (7-20) Creatinine 3.9 mg/dL (0.6-1.0) Estimated GFR (Cockcroft-Gault) 10.9 Glucose Level 324 mg/dL (70-99) Calcium Level 7.9 mg/dL (8.5-10.1) Phosphorus Level 3.0 mg/dL (2.6-4.7) Magnesium Level 2.6 mg/dL (1.8-2.4) Albumin 2.5 g/dL (3.4-5.0) Glucose (Fingerstick) 245 mg/dL (70-99) Assessment and Plan Assessmemt and Plan Problems Medical Problems: (1) Congestive heart failure Status: Acute Comment Review of Relevant I have reviewed the following items smith (where applicable) has been applied. Labs Laboratory Tests Test 07/23/18 11:47 07/23/18 17:14 07/23/18 21:46 07/24/18 04:45 Glucose (Fingerstick) 265 mg/dL (70-99) 259 mg/dL (70-99) 235 mg/dL (70-99) White Blood Count 13.6 x10^3/uL (4.0-11.0) Red Blood Count 3.67 x10^6/uL (3.50-5.40) Hemoglobin 12.1 g/dL (12.0-15.5) Hematocrit 37.9 % (36.0-47.0) Mean Corpuscular Volume 103 fL (79-100) Mean Corpuscular Hemoglobin 33 pg (25-35) Mean Corpuscular Hemoglobin Concent 32 g/dL (31-37) Red Cell Distribution Width 15.7 % (11.5-14.5) Platelet Count 148 x10^3/uL (140-400) Neutrophils (%) (Auto) 89 % (31-73) Lymphocytes (%) (Auto) 6 % (24-48) Monocytes (%) (Auto) 5 % (0-9) Eosinophils (%) (Auto) 0 % (0-3) Basophils (%) (Auto) 0 % (0-3) Neutrophils # (Auto) 12.0 x10^3uL (1.8-7.7) Lymphocytes # (Auto) 0.8 x10^3/uL (1.0-4.8) Monocytes # (Auto) 0.7 x10^3/uL (0.0-1.1) Eosinophils # (Auto) 0.0 x10^3/uL (0.0-0.7) Basophils # (Auto) 0.1 x10^3/uL (0.0-0.2) Sodium Level 132 mmol/L (136-145) Potassium Level 5.1 mmol/L (3.5-5.1) Chloride Level 92 mmol/L (98-107) Carbon Dioxide Level 22 mmol/L (21-32) Anion Gap 18 (6-14) Blood Urea Nitrogen 68 mg/dL (7-20) Creatinine 5.5 mg/dL (0.6-1.0) Estimated GFR (Cockcroft-Gault) 7.4 BUN/Creatinine Ratio 12 (6-20) Glucose Level 297 mg/dL (70-99) Calcium Level 8.1 mg/dL (8.5-10.1) Phosphorus Level 3.7 mg/dL (2.6-4.7) Magnesium Level 2.6 mg/dL (1.8-2.4) Total Bilirubin 1.2 mg/dL (0.2-1.0) Aspartate Amino Transf (AST/SGOT) 24 U/L (15-37) Alanine Aminotransferase (ALT/SGPT) 12 U/L (14-59) Alkaline Phosphatase 166 U/L (46-116) Total Protein 6.4 g/dL (6.4-8.2) Albumin 2.8 g/dL (3.4-5.0) Albumin/Globulin Ratio 0.8 (1.0-1.7) Test 07/24/18 08:39 07/24/18 12:07 07/24/18 17:26 07/24/18 20:36 Glucose (Fingerstick) 191 mg/dL (70-99) 182 mg/dL (70-99) 264 mg/dL (70-99) 236 mg/dL (70-99) Test 07/25/18 00:55 07/25/18 05:10 07/25/18 08:16 White Blood Count 13.3 x10^3/uL (4.0-11.0) 10.2 x10^3/uL (4.0-11.0) Red Blood Count 3.71 x10^6/uL (3.50-5.40) 3.37 x10^6/uL (3.50-5.40) Hemoglobin 12.6 g/dL (12.0-15.5) 11.8 g/dL (12.0-15.5) Hematocrit 38.1 % (36.0-47.0) 34.6 % (36.0-47.0) Mean Corpuscular Volume 103 fL (79-100) 103 fL (79-100) Mean Corpuscular Hemoglobin 34 pg (25-35) 35 pg (25-35) Mean Corpuscular Hemoglobin Concent 33 g/dL (31-37) 34 g/dL (31-37) Red Cell Distribution Width 15.7 % (11.5-14.5) 15.8 % (11.5-14.5) Platelet Count 203 x10^3/uL (140-400) 161 x10^3/uL (140-400) Heparin Anti-Xa Act, Unfractionated 1.07 IU/mL (0.30-0.70) Neutrophils (%) (Auto) 84 % (31-73) Lymphocytes (%) (Auto) 7 % (24-48) Monocytes (%) (Auto) 9 % (0-9) Eosinophils (%) (Auto) 0 % (0-3) Basophils (%) (Auto) 1 % (0-3) Neutrophils # (Auto) 8.5 x10^3uL (1.8-7.7) Lymphocytes # (Auto) 0.7 x10^3/uL (1.0-4.8) Monocytes # (Auto) 0.9 x10^3/uL (0.0-1.1) Eosinophils # (Auto) 0.0 x10^3/uL (0.0-0.7) Basophils # (Auto) 0.1 x10^3/uL (0.0-0.2) Sodium Level 132 mmol/L (136-145) Potassium Level 4.1 mmol/L (3.5-5.1) Chloride Level 94 mmol/L (98-107) Carbon Dioxide Level 26 mmol/L (21-32) Anion Gap 12 (6-14) Blood Urea Nitrogen 53 mg/dL (7-20) Creatinine 3.9 mg/dL (0.6-1.0) Estimated GFR (Cockcroft-Gault) 10.9 Glucose Level 324 mg/dL (70-99) Calcium Level 7.9 mg/dL (8.5-10.1) Phosphorus Level 3.0 mg/dL (2.6-4.7) Magnesium Level 2.6 mg/dL (1.8-2.4) Albumin 2.5 g/dL (3.4-5.0) Glucose (Fingerstick) 245 mg/dL (70-99) Laboratory Tests Test 07/24/18 12:07 07/24/18 17:26 07/24/18 20:36 07/25/18 00:55 Glucose (Fingerstick) 182 mg/dL (70-99) 264 mg/dL (70-99) 236 mg/dL (70-99) White Blood Count 13.3 x10^3/uL (4.0-11.0) Red Blood Count 3.71 x10^6/uL (3.50-5.40) Hemoglobin 12.6 g/dL (12.0-15.5) Hematocrit 38.1 % (36.0-47.0) Mean Corpuscular Volume 103 fL (79-100) Mean Corpuscular Hemoglobin 34 pg (25-35) Mean Corpuscular Hemoglobin Concent 33 g/dL (31-37) Red Cell Distribution Width 15.7 % (11.5-14.5) Platelet Count 203 x10^3/uL (140-400) Heparin Anti-Xa Act, Unfractionated 1.07 IU/mL (0.30-0.70) Test 07/25/18 05:10 07/25/18 08:16 White Blood Count 10.2 x10^3/uL (4.0-11.0) Red Blood Count 3.37 x10^6/uL (3.50-5.40) Hemoglobin 11.8 g/dL (12.0-15.5) Hematocrit 34.6 % (36.0-47.0) Mean Corpuscular Volume 103 fL (79-100) Mean Corpuscular Hemoglobin 35 pg (25-35) Mean Corpuscular Hemoglobin Concent 34 g/dL (31-37) Red Cell Distribution Width 15.8 % (11.5-14.5) Platelet Count 161 x10^3/uL (140-400) Neutrophils (%) (Auto) 84 % (31-73) Lymphocytes (%) (Auto) 7 % (24-48) Monocytes (%) (Auto) 9 % (0-9) Eosinophils (%) (Auto) 0 % (0-3) Basophils (%) (Auto) 1 % (0-3) Neutrophils # (Auto) 8.5 x10^3uL (1.8-7.7) Lymphocytes # (Auto) 0.7 x10^3/uL (1.0-4.8) Monocytes # (Auto) 0.9 x10^3/uL (0.0-1.1) Eosinophils # (Auto) 0.0 x10^3/uL (0.0-0.7) Basophils # (Auto) 0.1 x10^3/uL (0.0-0.2) Sodium Level 132 mmol/L (136-145) Potassium Level 4.1 mmol/L (3.5-5.1) Chloride Level 94 mmol/L (98-107) Carbon Dioxide Level 26 mmol/L (21-32) Anion Gap 12 (6-14) Blood Urea Nitrogen 53 mg/dL (7-20) Creatinine 3.9 mg/dL (0.6-1.0) Estimated GFR (Cockcroft-Gault) 10.9 Glucose Level 324 mg/dL (70-99) Calcium Level 7.9 mg/dL (8.5-10.1) Phosphorus Level 3.0 mg/dL (2.6-4.7) Magnesium Level 2.6 mg/dL (1.8-2.4) Albumin 2.5 g/dL (3.4-5.0) Glucose (Fingerstick) 245 mg/dL (70-99) Medications Current Medications Albuterol/ Ipratropium (Duoneb) 3 ml 1X ONCE NEB Last administered on at 12:57; Start 07/19/18 at 12:45; Stop 07/19/18 at 12:46; Status DC Ondansetron HCl (Zofran) 4 mg PRN Q8HRS PRN IV NAUSEA/VOMITING; Start 07/19/18 at 14:30; Stop 07/20/18 at 14:29; Status DC Acetaminophen (Tylenol) 650 mg PRN Q4HRS PRN PO FEVER; Start 07/19/18 at 14:30 ; Stop 07/20/18 at 08:37; Status DC Nitroglycerin (Nitrostat) 0.4 mg PRN Q5MIN PRN SL CHEST PAIN; Start 07/19/18 at 14:30; Stop 07/20/18 at 14:29; Status DC Albuterol/ Ipratropium (Duoneb) 3 ml RTQID NEB ; Start 07/19/18 at 16:00; Stop 07/20/18 at 15:59; Status Cancel Aspirin (Tracee Aspirin) 325 mg DAILY PO Last administered on 07/24/18at 11:16; Start 07/19/18 at 15:00 Carvedilol (Coreg) 3.125 mg BIDWMEALS PO ; Start 07/19/18 at 17:00; Stop at 19:42; Status DC Cinacalcet (Sensipar) 30 mg DAILY PO Last administered on 07/24/18 11:16; Start 07/19/18 at 15:00 Diclofenac Sodium (Voltaren) 1 grisel BID TP Last administered on 07/24/18 20:36 ; Start 07/19/18 at 21:00 Fentanyl (Duragesic 12mcg/ Hr Patch) 1 patch Q3DAYS TD ; Start 07/19/18 at 15:00 ; Stop 07/19/18 at 19:42; Status DC Vitamin B Complex/ Vitamin C (Bela-Roland) 1 tab DAILYBFRSUP PO Last administered on 07/24/18 11:17; Start 07/19/18 at 17:00 Ondansetron HCl (Zofran Odt) 4 mg PRN Q6HRS PRN PO NAUSEA/VOMITING; Start 07/19 at 14:45 Sevelamer Carbonate (Renvela) 2.4 gm TIDWMEALS PO Last administered on 17:58; Start 07/19/18 at 17:00 Acetaminophen (Tylenol) 500 mg PRN Q6HRS PRN PO MILD PAIN / TEMP; Start at 14:45 Latanoprost (Xalatan) 1 drop QHS OU Last administered on 07/24/18 20:36; Start 07/19/18 at 21:00 Calcitriol (Rocaltrol) 0.25 mcg DAILY PO Last administered on 07/24/18 11:17; Start 07/20/18 at 09:00 Vitamin D (Vitamin D3) 1,000 unit DAILY PO Last administered on 07/24/18 11:16 ; Start 07/20/18 at 09:00 Hydromorphone HCl (Dilaudid) 2 mg PRN Q8HRS PRN PO MODERATE PAIN, SEVERE PAIN; Start 07/19/18 at 15:00; Stop 07/20/18 at 09:31; Status DC Insulin Glargine (Lantus) 5 units QHS SQ Last administered on 07/24/18 20:37; Start 07/19/18 at 21:00 Non-Formulary Medication (Latanoprost/Pf (Latanoprost 0.005% Eye Drop)) 7.5 ml QHS OP ; Start 07/19/18 at 21:00; Status UNV Pantoprazole Sodium (Protonix) 40 mg DAILYAC PO Last administered on 07/24/18at 11:17; Start 07/20/18 at 07:30 Piperacillin Sod/ Tazobactam Sod (Zosyn Per Pharmacy) 1 each PRN DAILY PRN MC SEE COMMENTS; Start 07/19/18 at 14:45; Stop 07/24/18 at 11:11; Status DC Albuterol/ Ipratropium (Duoneb) 3 ml RTQID NEB Last administered on 07/25/18at 08:06; Start 07/19/18 at 16:00 Guaifenesin (Robitussin Dm) 10 ml QID PO Last administered on 07/23/18at 17:58; Start 07/19/18 at 17:00 Temazepam (Restoril) 7.5 mg PRN QHS PRN PO INSOMNIA Last administered on at 20:42; Start 07/19/18 at 14:45 Insulin Human Lispro (HumaLOG) 0-7 UNITS TIDWMEALS SQ Last administered on 07/25 08:18; Start 07/19/18 at 17:00 Dextrose (Dextrose 50%-Water Syringe) 12.5 gm PRN Q15MIN PRN IV SEE COMMENTS; Start 07/19/18 at 14:45 Piperacillin Sod/ Tazobactam Sod 2.25 gm/Sodium Chloride 50 ml @ 100 mls/hr Q8H IV Last administered on 07/24/18at 00:10; Start 07/19/18 at 16:00; Stop at 08:08; Status DC Furosemide (Lasix) 40 mg 1X ONCE IVP Last administered on 07/19/18at 14:52; Start 07/19/18 at 14:45; Stop 07/19/18 at 14:52; Status DC Docusate Sodium (Colace) 100 mg BID PO Last administered on 07/24/18at 11:17; Start 07/19/18 at 21:00 Magnesium Hydroxide (Milk Of Magnesia) 2,400 mg PRN DAILY PRN PO CONSTIPATION; Start 07/19/18 at 19:45 Sodium Monofluorophosphate (Fleet Adult) 133 ml PRN DAILY PRN RC CONSTIPATION; Start 07/19/18 at 19:45; Stop 07/22/18 at 12:17; Status DC Bisacodyl (Dulcolax Supp) 10 mg PRN DAILY PRN [place] CONSTIPATION 1ST CHOICE; Start 07/19/18 at 19:45 Polyethylene Glycol (miraLAX PACKET) 17 gm BID PO Last administered on at 08:42; Start 07/19/18 at 21:00 Sennosides (Senna) 8.6 mg DAILY PO Last administered on 07/24/18at 11:16; Start 07/20/18 at 09:00 Lactobacillus Rhamnosus (Culturelle) 1 cap BID PO Last administered on at 11:18; Start 07/20/18 at 21:00 Methylprednisolone Sodium Succinate (SOLU-Medrol 40MG VIAL) 40 mg Q8HRS IV Last administered on 07/25/18at 06:23; Start 07/20/18 at 14:00 Albumin Human 250 ml @ 62.5 mls/hr PRN Q6HRS PRN IV for MAP < 65 Last administered on 07/21/18at 20:45; Start 07/20/18 at 09:45 Magnesium Sulfate 50 ml @ 25 mls/hr PRN DAILY PRN IV for Mag < 1.7 on am labs; Start 07/20/18 at 09:45 Dopamine HCl/ Dextrose 250 ml @ 6.124 mls/ hr CONT PRN IV SEE I/O RECORD Last administered on 07/24/18at 20:37; Start 07/20/18 at 12:00 Sodium Chloride 1,000 ml @ 1,000 mls/hr Q1H PRN IV hypotension; Start 07/21/18 at 13:00; Stop 07/21/18 at 18:59; Status DC Sodium Chloride 1,000 ml @ 400 mls/hr Q2H30M PRN IV PATENCY; Start 07/21/18 at 13:00; Stop 07/22/18 at 00:59; Status DC Info (PHARMACY MONITORING -- do not chart) 1 each PRN DAILY PRN MC SEE COMMENTS ; Start 07/21/18 at 13:30; Status UNV Info (PHARMACY MONITORING -- do not chart) 1 each PRN DAILY PRN MC SEE COMMENTS ; Start 07/21/18 at 13:30; Stop 07/24/18 at 07:10; Status DC Albumin Human 100 ml @ 100 mls/hr 1X ONCE IV Last administered on 07/21/18at 14:00; Start 07/21/18 at 13:30; Stop 07/21/18 at 14:29; Status DC Sodium Chloride 500 ml @ 500 mls/hr 1X ONCE IV Last administered on at 11:14; Start 07/22/18 at 11:15; Stop 07/22/18 at 12:14; Status DC Digoxin (Lanoxin) 125 mcg QMWF@1600 PO ; Start 07/23/18 at 16:00; Stop 07/23/18 at 16:00; Status DC Digoxin (Lanoxin) 125 mcg 1X ONCE PO Last administered on 07/22/18at 12:26; Start 07/22/18 at 12:00; Stop 07/22/18 at 12:01; Status DC Midodrine (Proamatine) 2.5 mg [id number] PO Last administered on 07/24/18at 13:22; Start 07/22/18 at 13:00 Digoxin (Lanoxin) 125 mcg QTUTHSA PO ; Start 07/24/18 at 16:00 Sodium Chloride 500 ml @ 500 mls/hr 1X ONCE IV Last administered on at 15:42; Start 07/23/18 at 15:00; Stop 07/23/18 at 15:59; Status DC Sodium Chloride 1,000 ml @ 1,000 mls/hr Q1H PRN IV hypotension; Start 07/24/18 at 06:59; Stop 07/24/18 at 12:58; Status DC Albumin Human 200 ml @ 200 mls/hr 1X PRN PRN IV Hypotension Last administered on 07/24/18at 08:09; Start 07/24/18 at 07:00; Stop 07/24/18 at 12:59; Status DC Sodium Chloride 1,000 ml @ 400 mls/hr Q2H30M PRN IV PATENCY; Start 07/24/18 at 06:59; Stop 07/24/18 at 18:58; Status DC Info (PHARMACY MONITORING -- do not chart) 1 each PRN DAILY PRN MC SEE COMMENTS ; Start 07/24/18 at 07:00 Info (PHARMACY MONITORING -- do not chart) 1 each PRN DAILY PRN MC SEE COMMENTS ; Start 07/24/18 at 07:00; Status UNV Amoxicillin/ Clavulanate Potassium (Augmentin 500/ 125mg) 1 tab BID PO Last administered on 07/24/18at 11:16; Start 07/24/18 at 09:00; Stop 07/25/18 at 09:21 ; Status DC Amino Acids/ Glycerin/ Electrolytes 1,000 ml @ 50 mls/hr Q20H IV Last administered on 07/25/18at 08:07; Start 07/24/18 at 17:00 Heparin Sodium/ Dextrose 500 ml @ 0 mls/hr CONT PRN IV SEE I/O RECORD; Start at 19:30; Status Cancel Heparin Sodium (Porcine) (Heparin Sodium) 6,850 unit 1X ONCE IV Last administered on 07/24/18at 19:38; Start 07/24/18 at 19:30; Stop 07/24/18 at 19:33 ; Status DC Heparin Sodium/ Dextrose 500 ml @ 0 mls/hr CONT PRN IV SEE I/O RECORD; Start at 19:30; Status UNV Heparin Sodium (Porcine) (Heparin Sodium) 2,550 unit PRN Q6HRS PRN IV FOR UFH LEVEL LESS THAN 0.2; Start 07/24/18 at 19:30 Heparin Sodium (Porcine) (Heparin Sodium) 1,300 unit PRN Q6HRS PRN IV FOR UFH LEVEL 0.2 - 0.29; Start 07/24/18 at 19:30 Heparin Sodium/ Dextrose 500 ml @ 0 mls/hr CONT PRN IV SEE I/O RECORD Last administered on 07/24/18at 19:45; Start 07/24/18 at 19:45 Sodium Chloride 1,000 ml @ 1,000 mls/hr Q1H PRN IV hypotension; Start 07/25/18 at 08:22; Stop 07/25/18 at 14:21 Albumin Human 200 ml @ 200 mls/hr 1X ONCE IV Last administered on 07/25/18at 08:49; Start 07/25/18 at 08:30; Stop 07/25/18 at 09:29; Status DC Diphenhydramine HCl (Benadryl) 25 mg 1X PRN PRN IV ITCHING; Start 07/25/18 at 08:30; Stop 07/26/18 at 08:29 Diphenhydramine HCl (Benadryl) 25 mg 1X PRN PRN IV ITCHING; Start 07/25/18 at 08:30; Stop 07/26/18 at 08:29 Sodium Chloride 1,000 ml @ 400 mls/hr Q2H30M PRN IV PATENCY; Start 07/25/18 at 08:22; Stop 07/25/18 at 20:21 Info (PHARMACY MONITORING -- do not chart) 1 each PRN DAILY PRN MC SEE COMMENTS ; Start 07/25/18 at 08:30 Piperacillin Sod/ Tazobactam Sod 2.25 gm/Sodium Chloride 50 ml @ 100 mls/hr Q8HRS IV ; Start 07/25/18 at 09:30 Active Scripts Active Levemir (Insulin Detemir) 100 Unit/1 Ml Vial 5 Unit SQ QHS 30 Days Hold for < 140mg/dL Aspirin 325 Mg Tablet 1 Tab PO DAILY Reported Amlodipine Besylate 10 Mg Tablet 10 Mg PO DAILY Tylenol (Acetaminophen) 325 Mg Tablet 2 Tab PO PRN Q6HRS PRN Senna (Sennosides) 8.6 Mg Tablet 8.6 Mg PO DAILY Novolog Flexpen (Insulin Aspart) 100 Unit/1 Ml Insuln.pen 1 Unit SQ TIDAC Miralax (Polyethylene Glycol 3350) 17 Gm Powd.pack 1 Packet PO BID Milk Of Magnesia (Magnesium Hydroxide) 400 Mg/5 Ml Oral.susp 30 Ml PO PRN DAILY Duoneb 0.5-3(2.5) Mg/3 Ml (Albuterol/Ipratropium) 3 Ml Ampul.neb 3 Ml NEB TID Fleet Enema (Na Phos,M-B/Na Phos,Di-Ba) 133 Ml Enema 1 Each RC PRN DAILY PRN Dulcolax (Bisacodyl) 10 Mg Supp.rect 10 Mg RC PRN DAILY PRN Docusate Sodium 100 Mg Capsule 1 Cap PO BID Carvedilol (Carvedilol) 12.5 Mg Tablet 12.5 Mg PO BIDWMEALS Protonix (Pantoprazole Sodium) 20 Mg Tablet.dr 40 Mg PO DAILY Voltaren (Diclofenac Sodium) 100 Gm Gel..gram. 1 Gm TP BID Zofran Odt (Ondansetron) 4 Mg Tab.rapdis 4 Mg PO Q6HRS PRN Sensipar (Cinacalcet Hcl) 30 Mg Tablet 1 Tab PO DAILY Renvela (Sevelamer Carbonate) 2.4 Gm Powd.pack 2.4 Gm PO TIDWMEALS Lumigan (Bimatoprost) 2.5 Ml Drops 1 Drop EACHEYE QHS Calcitriol 0.25 Mcg Capsule 1 Cap PO DAILY Nephro-Roland Tablet (Folic Acid/Vitamin B Comp W-C) 0.8 Mg Tablet 1 Tab PO DAILYBFRSUP Vitamin D (Cholecalciferol (Vitamin D3)) 2,000 Unit Capsule 1 Cap PO DAILY Vitals/I & O Vital Sign - Last 24 Hours 07/24/18 07/24/18 07/24/18 07/24/18 11:00 11:46 11:49 12:00 Temp 97.8 97.8 Pulse 92 96 Resp 17 20 B/P (MAP) 107/55 (72) 105/40 (61) Pulse Ox 100 98 100 O2 Delivery Nasal Cannula Nasal Cannula Nasal Cannula Nasal Cannula O2 Flow Rate 2.0 2.0 2.0 2.0 07/24/18 07/24/18 07/24/18 07/24/18 13:00 13:22 14:00 15:00 Pulse 92 101 87 87 Resp 20 21 14 B/P (MAP) 102/73 (83) 102/73 97/48 (64) 98/83 (88) Pulse Ox 100 100 100 O2 Delivery Nasal Cannula Nasal Cannula Nasal Cannula O2 Flow Rate 2.0 2.0 2.0 07/24/18 07/24/18 07/24/18 07/24/18 16:00 16:00 16:31 17:00 Temp 97.6 97.6 Pulse 92 92 Resp 21 26 B/P (MAP) 97/48 (64) 108/81 (90) Pulse Ox 100 100 100 O2 Delivery Nasal Cannula Nasal Cannula Nasal Cannula Nasal Cannula O2 Flow Rate 2.0 2.0 2.0 2.0 07/24/18 07/24/18 07/24/18 07/24/18 18:00 19:00 19:15 20:00 Pulse 96 90 90 Resp 17 22 B/P (MAP) 101/58 (72) 77/49 (58) 91/47 (62) Pulse Ox 100 99 O2 Delivery Nasal Cannula Nasal Cannula Nasal Cannula O2 Flow Rate 2.0 2.0 2.0 07/24/18 07/24/18 07/24/18 07/24/18 20:00 20:13 21:00 22:00 Temp 97.8 97.8 Pulse 90 91 92 Resp 18 19 20 B/P (MAP) 119/79 (92) 109/55 (73) 110/54 (72) Pulse Ox 97 100 99 97 O2 Delivery Nasal Cannula Nasal Cannula Nasal Cannula Nasal Cannula O2 Flow Rate 2.0 0.5 2.0 2.0 07/24/18 07/25/18 07/25/18 07/25/18 23:00 00:00 00:00 01:00 Temp 97.1 97.1 Pulse 90 93 88 Resp 25 25 B/P (MAP) 118/68 (85) 118/82 (94) 142/61 (88) Pulse Ox 97 98 96 O2 Delivery Nasal Cannula Nasal Cannula Nasal Cannula Nasal Cannula O2 Flow Rate 2.0 2.0 2.0 2.0 07/25/18 07/25/18 07/25/18 07/25/18 02:00 02:30 02:45 03:00 Pulse 92 88 90 90 Resp 24 B/P (MAP) 140/69 (92) 146/54 (84) 123/69 (87) 100/66 (77) Pulse Ox 93 97 O2 Delivery Nasal Cannula Nasal Cannula O2 Flow Rate 2.0 2.0 07/25/18 07/25/18 07/25/18 07/25/18 03:45 04:00 04:00 04:30 Temp 98.0 98.0 Pulse 85 81 84 Resp 23 B/P (MAP) 138/64 (88) 127/67 (87) 127/65 (85) Pulse Ox 95 O2 Delivery Room Air Room Air 07/25/18 07/25/18 07/25/18 07/25/18 04:45 05:00 05:15 05:30 Pulse 82 80 76 71 Resp 20 B/P (MAP) 118/52 (74) 125/64 (84) 118/59 (78) 107/44 (65) Pulse Ox 97 O2 Delivery Room Air 3/2907/25/18 07/25/18 07/25/18 06:00 07:00 08:00 08:00 Pulse 65 64 64 Resp 14 13 16 B/P (MAP) 110/46 (67) 114/46 (68) 133/58 (83) Pulse Ox 97 96 97 O2 Delivery Room Air Room Air Room Air Room Air 07/25/18 07/25/18 08:06 09:00 Pulse 77 Resp 14 B/P (MAP) 109/54 (72) Pulse Ox 100 99 O2 Delivery Nasal Cannula Room Air O2 Flow Rate 0.5 Intake and Output 07/24/18 07/24/18 07/25/18 15:00 23:00 07:00 Intake Total 120 ml 373 ml 1223 ml Output Total 0 ml 0 ml 0 ml Balance 120 ml 373 ml 1223 ml DAY ROSADO MD Jul 25, 2018 10:32
[2018-07-25] MEDS: ANTI-COAG MONITOR BY PHARMACY. MC PRN ×2 (11:21→12:26)
--- NOTE | 2018-07-25 11:35 | PDOC ---
Renal-Progress Notes Subjective Notes Notes STILL SOB History of Present Illness Hx of present illness NOT ANY BETTER Vitals Vitals Vital Signs Date Time Temp Pulse Resp B/P (MAP) Pulse Ox O2 Delivery O2 Flow Rate FiO2 07/25/18 09:00 77 14 109/54 (72) 99 Room Air 07/25/18 08:06 0.5 07/25/18 04:00 98.0 98.0 Weight Weight [ ] I.O. Intake and Output Intake and Output 07/25/18 07:00 Intake Total 1716 ml Output Total 0 ml Balance 1716 ml Intake Oral 120 ml IV Total 1596 ml Output Urine Total 0 ml # Bowel Movements 1 Labs Labs Laboratory Tests Test 07/24/18 12:07 07/24/18 17:26 07/24/18 20:36 07/25/18 00:55 Glucose (Fingerstick) 182 mg/dL (70-99) 264 mg/dL (70-99) 236 mg/dL (70-99) White Blood Count 13.3 x10^3/uL (4.0-11.0) Red Blood Count 3.71 x10^6/uL (3.50-5.40) Hemoglobin 12.6 g/dL (12.0-15.5) Hematocrit 38.1 % (36.0-47.0) Mean Corpuscular Volume 103 fL (79-100) Mean Corpuscular Hemoglobin 34 pg (25-35) Mean Corpuscular Hemoglobin Concent 33 g/dL (31-37) Red Cell Distribution Width 15.7 % (11.5-14.5) Platelet Count 203 x10^3/uL (140-400) Heparin Anti-Xa Act, Unfractionated 1.07 IU/mL (0.30-0.70) Test 07/25/18 05:10 07/25/18 08:16 White Blood Count 10.2 x10^3/uL (4.0-11.0) Red Blood Count 3.37 x10^6/uL (3.50-5.40) Hemoglobin 11.8 g/dL (12.0-15.5) Hematocrit 34.6 % (36.0-47.0) Mean Corpuscular Volume 103 fL (79-100) Mean Corpuscular Hemoglobin 35 pg (25-35) Mean Corpuscular Hemoglobin Concent 34 g/dL (31-37) Red Cell Distribution Width 15.8 % (11.5-14.5) Platelet Count 161 x10^3/uL (140-400) Neutrophils (%) (Auto) 84 % (31-73) Lymphocytes (%) (Auto) 7 % (24-48) Monocytes (%) (Auto) 9 % (0-9) Eosinophils (%) (Auto) 0 % (0-3) Basophils (%) (Auto) 1 % (0-3) Neutrophils # (Auto) 8.5 x10^3uL (1.8-7.7) Lymphocytes # (Auto) 0.7 x10^3/uL (1.0-4.8) Monocytes # (Auto) 0.9 x10^3/uL (0.0-1.1) Eosinophils # (Auto) 0.0 x10^3/uL (0.0-0.7) Basophils # (Auto) 0.1 x10^3/uL (0.0-0.2) Sodium Level 132 mmol/L (136-145) Potassium Level 4.1 mmol/L (3.5-5.1) Chloride Level 94 mmol/L (98-107) Carbon Dioxide Level 26 mmol/L (21-32) Anion Gap 12 (6-14) Blood Urea Nitrogen 53 mg/dL (7-20) Creatinine 3.9 mg/dL (0.6-1.0) Estimated GFR (Cockcroft-Gault) 10.9 Glucose Level 324 mg/dL (70-99) Calcium Level 7.9 mg/dL (8.5-10.1) Phosphorus Level 3.0 mg/dL (2.6-4.7) Magnesium Level 2.6 mg/dL (1.8-2.4) Albumin 2.5 g/dL (3.4-5.0) Glucose (Fingerstick) 245 mg/dL (70-99) Review of Systems Constitutional: yes: weakness, alert Ears/Nose/Throat: Yes: dysphagia Cardiovascular: Yes no symptom reported Gastrointestional: Yes: constipation Genitourinary: Yes: no symptom reported Musculoskeletal: Yes: muscle stiffness Skin: Yes no symptom reported Psychiatric/Neurological: Yes: no symptom reported Endocrine: Yes: no symptom reported Physical Exam General Appearance: no apparent distress Skin: warm Respiratory: decreased breath sounds Heart: S1S2, RRR Abdomen: soft Genitourinary: bladder flat, no mass Extremities: pulses present, no edema, atrophy Neurology: alert, follow commands Assessment Assessment IMP DYSPNEA HYPOTENSION HYPERVOLEMIA ESRD-TTS ANEMIA DECONDITIONING DM II DYSPHAGIA PLAN HD AGAIN TODAY UF ABOUT 2.5 TOLERATED PRESSORS NEEDED WILL HD AGAIN TOMORROW MIDODRINE COMFORT CARE WOULD BE APPROPRIATE ATTEMPTED TO CONTACT DAUGHTER TODAY BUT NO ANSWER NANCY CALERO MD Jul 25, 2018 11:35
[2018-07-25] MEDS: DICLOFENAC SODIUM 1% TOPICAL GEL 100GM TUBE. TP SCH ×2 (13:08→21:21)
--- NOTE | 2018-07-25 14:55 | NUR ---
SS following up with discharge planning. [facility] declined LTAC and stated that pt was too acute and needed to remain in the hospital. Peer to peer offered and case management has until 07/28/2018 at 1300 to contact and schedule peer to peer if physician in agreement to complete. Case management notified. Palliative care continuing to work with family.
--- NOTE | 2018-07-25 15:43 | RAD ---
Chest radiograph 07/25/2018 3:18 PM INDICATION: Central line placement COMPARISON: July 23, 2018 TECHNIQUE: Frontal view of the chest is provided. FINDINGS: The cardiomediastinal silhouette is similar in appearance. Right IJ central venous catheter is identified with the distal tip projecting over the superior right atrium. Median sternotomy changes are present. Left upper extremity PICC is identified in similar position. There is mild pulmonary vascular congestion. No significant pleural effusions or pneumothorax. Patchy density at the left lung base appears similar. There is a skinfold projecting over the right lateral chest wall which mimics a pneumothorax. IMPRESSION: New right IJ central venous catheter is identified with the distal tip projecting over the right atrium. No definite pneumothorax. Electronically signed by: Parris Flores MD (07/25/2018 3:40 PM) [id number]
--- NOTE | 2018-07-25 15:52 | PDOC2 ---
PALLIATIVE CARE Palliative Care Note Palliative Care Spoke with patient's daughter Racheal She wants to continue with current treatment plan. Will need more information of LTAC. Will continue to follow and discuss plan of care HARRISON STUART Jul 25, 2018 15:52
--- NOTE | 2018-07-25 16:15 | PDOC ---
PROGRESS NOTES Subjective Subjective Patient seen and examined Mildly more responsive this morning. Objective Objective Vital Signs Date Time Temp Pulse Resp B/P (MAP) Pulse Ox O2 Delivery O2 Flow Rate FiO2 07/25/18 15:00 97.8 64 17 90/53 (65) 97 Room Air 97.8 07/25/18 11:53 0.5 Intake and Output 07/25/18 07:00 Intake Total 1716 ml Output Total 0 ml Balance 1716 ml Intake Oral 120 ml IV Total 1596 ml Output Urine Total 0 ml # Bowel Movements 1 Physical Exam Abdomen: Normal bowel sounds Heart: Regular rate General: mild distress Lungs: Clear to auscultation (mildly decreased breath sounds) Assessment Assessment Problems Medical Problems: (1) Congestive heart failure Status: Acute 1. Hypotension. transferred to ICU yesterday. Attempting to wean off dopamine. Albumin as per the renal service. Echocardiogram with an LV ejection fraction 40 % with severe tricuspid regurgitation. 2. H/o CAD s/p CABG CABG. Ejection fraction of 40% as above. CP free 3. History of hypertension. Now with resistant hypotension as noted above. 4. ESRD . HD as per the renal service and as pressures allow. 5. Chronic diastolic HF; appears compensated 6. Probable PNA 7. DM, II; uncontrolled. as per PCP 8. Persistent AFIB; rate controlled without therapy. ASA for stroke prophylaxis. Poor candidate for OAC Comment Review of Relevant I have reviewed the following items smith (where applicable) has been applied. Labs Laboratory Tests Test 07/23/18 17:14 07/23/18 21:46 07/24/18 04:45 07/24/18 08:39 Glucose (Fingerstick) 259 mg/dL (70-99) 235 mg/dL (70-99) 191 mg/dL (70-99) White Blood Count 13.6 x10^3/uL (4.0-11.0) Red Blood Count 3.67 x10^6/uL (3.50-5.40) Hemoglobin 12.1 g/dL (12.0-15.5) Hematocrit 37.9 % (36.0-47.0) Mean Corpuscular Volume 103 fL (79-100) Mean Corpuscular Hemoglobin 33 pg (25-35) Mean Corpuscular Hemoglobin Concent 32 g/dL (31-37) Red Cell Distribution Width 15.7 % (11.5-14.5) Platelet Count 148 x10^3/uL (140-400) Neutrophils (%) (Auto) 89 % (31-73) Lymphocytes (%) (Auto) 6 % (24-48) Monocytes (%) (Auto) 5 % (0-9) Eosinophils (%) (Auto) 0 % (0-3) Basophils (%) (Auto) 0 % (0-3) Neutrophils # (Auto) 12.0 x10^3uL (1.8-7.7) Lymphocytes # (Auto) 0.8 x10^3/uL (1.0-4.8) Monocytes # (Auto) 0.7 x10^3/uL (0.0-1.1) Eosinophils # (Auto) 0.0 x10^3/uL (0.0-0.7) Basophils # (Auto) 0.1 x10^3/uL (0.0-0.2) Sodium Level 132 mmol/L (136-145) Potassium Level 5.1 mmol/L (3.5-5.1) Chloride Level 92 mmol/L (98-107) Carbon Dioxide Level 22 mmol/L (21-32) Anion Gap 18 (6-14) Blood Urea Nitrogen 68 mg/dL (7-20) Creatinine 5.5 mg/dL (0.6-1.0) Estimated GFR (Cockcroft-Gault) 7.4 BUN/Creatinine Ratio 12 (6-20) Glucose Level 297 mg/dL (70-99) Calcium Level 8.1 mg/dL (8.5-10.1) Phosphorus Level 3.7 mg/dL (2.6-4.7) Magnesium Level 2.6 mg/dL (1.8-2.4) Total Bilirubin 1.2 mg/dL (0.2-1.0) Aspartate Amino Transf (AST/SGOT) 24 U/L (15-37) Alanine Aminotransferase (ALT/SGPT) 12 U/L (14-59) Alkaline Phosphatase 166 U/L (46-116) Total Protein 6.4 g/dL (6.4-8.2) Albumin 2.8 g/dL (3.4-5.0) Albumin/Globulin Ratio 0.8 (1.0-1.7) Test 07/24/18 12:07 07/24/18 17:26 07/24/18 20:36 07/25/18 00:55 Glucose (Fingerstick) 182 mg/dL (70-99) 264 mg/dL (70-99) 236 mg/dL (70-99) White Blood Count 13.3 x10^3/uL (4.0-11.0) Red Blood Count 3.71 x10^6/uL (3.50-5.40) Hemoglobin 12.6 g/dL (12.0-15.5) Hematocrit 38.1 % (36.0-47.0) Mean Corpuscular Volume 103 fL (79-100) Mean Corpuscular Hemoglobin 34 pg (25-35) Mean Corpuscular Hemoglobin Concent 33 g/dL (31-37) Red Cell Distribution Width 15.7 % (11.5-14.5) Platelet Count 203 x10^3/uL (140-400) Heparin Anti-Xa Act, Unfractionated 1.07 IU/mL (0.30-0.70) Test 07/25/18 05:10 07/25/18 08:16 07/25/18 13:05 White Blood Count 10.2 x10^3/uL (4.0-11.0) Red Blood Count 3.37 x10^6/uL (3.50-5.40) Hemoglobin 11.8 g/dL (12.0-15.5) Hematocrit 34.6 % (36.0-47.0) Mean Corpuscular Volume 103 fL (79-100) Mean Corpuscular Hemoglobin 35 pg (25-35) Mean Corpuscular Hemoglobin Concent 34 g/dL (31-37) Red Cell Distribution Width 15.8 % (11.5-14.5) Platelet Count 161 x10^3/uL (140-400) Neutrophils (%) (Auto) 84 % (31-73) Lymphocytes (%) (Auto) 7 % (24-48) Monocytes (%) (Auto) 9 % (0-9) Eosinophils (%) (Auto) 0 % (0-3) Basophils (%) (Auto) 1 % (0-3) Neutrophils # (Auto) 8.5 x10^3uL (1.8-7.7) Lymphocytes # (Auto) 0.7 x10^3/uL (1.0-4.8) Monocytes # (Auto) 0.9 x10^3/uL (0.0-1.1) Eosinophils # (Auto) 0.0 x10^3/uL (0.0-0.7) Basophils # (Auto) 0.1 x10^3/uL (0.0-0.2) Sodium Level 132 mmol/L (136-145) Potassium Level 4.1 mmol/L (3.5-5.1) Chloride Level 94 mmol/L (98-107) Carbon Dioxide Level 26 mmol/L (21-32) Anion Gap 12 (6-14) Blood Urea Nitrogen 53 mg/dL (7-20) Creatinine 3.9 mg/dL (0.6-1.0) Estimated GFR (Cockcroft-Gault) 10.9 Glucose Level 324 mg/dL (70-99) Calcium Level 7.9 mg/dL (8.5-10.1) Phosphorus Level 3.0 mg/dL (2.6-4.7) Magnesium Level 2.6 mg/dL (1.8-2.4) Albumin 2.5 g/dL (3.4-5.0) Glucose (Fingerstick) 245 mg/dL (70-99) 119 mg/dL (70-99) Laboratory Tests Test 07/24/18 17:26 07/24/18 20:36 07/25/18 00:55 07/25/18 05:10 Glucose (Fingerstick) 264 mg/dL (70-99) 236 mg/dL (70-99) White Blood Count 13.3 x10^3/uL (4.0-11.0) 10.2 x10^3/uL (4.0-11.0) Red Blood Count 3.71 x10^6/uL (3.50-5.40) 3.37 x10^6/uL (3.50-5.40) Hemoglobin 12.6 g/dL (12.0-15.5) 11.8 g/dL (12.0-15.5) Hematocrit 38.1 % (36.0-47.0) 34.6 % (36.0-47.0) Mean Corpuscular Volume 103 fL (79-100) 103 fL (79-100) Mean Corpuscular Hemoglobin 34 pg (25-35) 35 pg (25-35) Mean Corpuscular Hemoglobin Concent 33 g/dL (31-37) 34 g/dL (31-37) Red Cell Distribution Width 15.7 % (11.5-14.5) 15.8 % (11.5-14.5) Platelet Count 203 x10^3/uL (140-400) 161 x10^3/uL (140-400) Heparin Anti-Xa Act, Unfractionated 1.07 IU/mL (0.30-0.70) Neutrophils (%) (Auto) 84 % (31-73) Lymphocytes (%) (Auto) 7 % (24-48) Monocytes (%) (Auto) 9 % (0-9) Eosinophils (%) (Auto) 0 % (0-3) Basophils (%) (Auto) 1 % (0-3) Neutrophils # (Auto) 8.5 x10^3uL (1.8-7.7) Lymphocytes # (Auto) 0.7 x10^3/uL (1.0-4.8) Monocytes # (Auto) 0.9 x10^3/uL (0.0-1.1) Eosinophils # (Auto) 0.0 x10^3/uL (0.0-0.7) Basophils # (Auto) 0.1 x10^3/uL (0.0-0.2) Sodium Level 132 mmol/L (136-145) Potassium Level 4.1 mmol/L (3.5-5.1) Chloride Level 94 mmol/L (98-107) Carbon Dioxide Level 26 mmol/L (21-32) Anion Gap 12 (6-14) Blood Urea Nitrogen 53 mg/dL (7-20) Creatinine 3.9 mg/dL (0.6-1.0) Estimated GFR (Cockcroft-Gault) 10.9 Glucose Level 324 mg/dL (70-99) Calcium Level 7.9 mg/dL (8.5-10.1) Phosphorus Level 3.0 mg/dL (2.6-4.7) Magnesium Level 2.6 mg/dL (1.8-2.4) Albumin 2.5 g/dL (3.4-5.0) Test 07/25/18 08:16 07/25/18 13:05 Glucose (Fingerstick) 245 mg/dL (70-99) 119 mg/dL (70-99) Medications Current Medications Albuterol/ Ipratropium (Duoneb) 3 ml 1X ONCE NEB Last administered on 12:57; Start 07/19/18 at 12:45; Stop 07/19/18 at 12:46; Status DC Ondansetron HCl (Zofran) 4 mg PRN Q8HRS PRN IV NAUSEA/VOMITING; Start 07/19/18 at 14:30; Stop 07/20/18 at 14:29; Status DC Acetaminophen (Tylenol) 650 mg PRN Q4HRS PRN PO FEVER; Start 07/19/18 at 14:30 ; Stop 07/20/18 at 08:37; Status DC Nitroglycerin (Nitrostat) 0.4 mg PRN Q5MIN PRN SL CHEST PAIN; Start 07/19/18 at 14:30; Stop 07/20/18 at 14:29; Status DC Albuterol/ Ipratropium (Duoneb) 3 ml RTQID NEB ; Start 07/19/18 at 16:00; Stop 07/20/18 at 15:59; Status Cancel Aspirin (Tracee Aspirin) 325 mg DAILY PO Last administered on 07/24/18 11:16; Start 07/19/18 at 15:00 Carvedilol (Coreg) 3.125 mg BIDWMEALS PO ; Start 07/19/18 at 17:00; Stop at 19:42; Status DC Cinacalcet (Sensipar) 30 mg DAILY PO Last administered on 07/24/18at 11:16; Start 07/19/18 at 15:00 Diclofenac Sodium (Voltaren) 1 grisel BID TP Last administered on 07/25/18 13:08 ; Start 07/19/18 at 21:00 Fentanyl (Duragesic 12mcg/ Hr Patch) 1 patch Q3DAYS TD ; Start 07/19/18 at 15:00 ; Stop 07/19/18 at 19:42; Status DC Vitamin B Complex/ Vitamin C (Bela-Roland) 1 tab DAILYBFRSUP PO Last administered on 07/24/18at 11:17; Start 07/19/18 at 17:00 Ondansetron HCl (Zofran Odt) 4 mg PRN Q6HRS PRN PO NAUSEA/VOMITING; Start 07/19 at 14:45 Sevelamer Carbonate (Renvela) 2.4 gm TIDWMEALS PO Last administered on at 17:58; Start 07/19/18 at 17:00 Acetaminophen (Tylenol) 500 mg PRN Q6HRS PRN PO MILD PAIN / TEMP; Start at 14:45 Latanoprost (Xalatan) 1 drop QHS OU Last administered on 07/24/18at 20:36; Start 07/19/18 at 21:00 Calcitriol (Rocaltrol) 0.25 mcg DAILY PO Last administered on 07/24/18 11:17; Start 07/20/18 at 09:00 Vitamin D (Vitamin D3) 1,000 unit DAILY PO Last administered on 07/24/18 11:16 ; Start 07/20/18 at 09:00 Hydromorphone HCl (Dilaudid) 2 mg PRN Q8HRS PRN PO MODERATE PAIN, SEVERE PAIN; Start 07/19/18 at 15:00; Stop 07/20/18 at 09:31; Status DC Insulin Glargine (Lantus) 5 units QHS SQ Last administered on 07/24/18at 20:37; Start 07/19/18 at 21:00 Non-Formulary Medication (Latanoprost/Pf (Latanoprost 0.005% Eye Drop)) 7.5 ml QHS OP ; Start 07/19/18 at 21:00; Status UNV Pantoprazole Sodium (Protonix) 40 mg DAILYAC PO Last administered on 07/24/18at 11:17; Start 07/20/18 at 07:30 Piperacillin Sod/ Tazobactam Sod (Zosyn Per Pharmacy) 1 each PRN DAILY PRN MC SEE COMMENTS; Start 07/19/18 at 14:45; Stop 07/24/18 at 11:11; Status DC Albuterol/ Ipratropium (Duoneb) 3 ml RTQID NEB Last administered on 07/25/18at 16:09; Start 07/19/18 at 16:00 Guaifenesin (Robitussin Dm) 10 ml QID PO Last administered on 07/23/18 17:58; Start 07/19/18 at 17:00 Temazepam (Restoril) 7.5 mg PRN QHS PRN PO INSOMNIA Last administered on at 20:42; Start 07/19/18 at 14:45 Insulin Human Lispro (HumaLOG) 0-7 UNITS TIDWMEALS SQ Last administered on 07/25 08:18; Start 07/19/18 at 17:00 Dextrose (Dextrose 50%-Water Syringe) 12.5 gm PRN Q15MIN PRN IV SEE COMMENTS; Start 07/19/18 at 14:45 Piperacillin Sod/ Tazobactam Sod 2.25 gm/Sodium Chloride 50 ml @ 100 mls/hr Q8H IV Last administered on 07/24/18 00:10; Start 07/19/18 at 16:00; Stop at 08:08; Status DC Furosemide (Lasix) 40 mg 1X ONCE IVP Last administered on 07/19/18at 14:52; Start 07/19/18 at 14:45; Stop 07/19/18 at 14:52; Status DC Docusate Sodium (Colace) 100 mg BID PO Last administered on 07/24/18 11:17; Start 07/19/18 at 21:00 Magnesium Hydroxide (Milk Of Magnesia) 2,400 mg PRN DAILY PRN PO CONSTIPATION; Start 07/19/18 at 19:45 Sodium Monofluorophosphate (Fleet Adult) 133 ml PRN DAILY PRN RC CONSTIPATION; Start 07/19/18 at 19:45; Stop 07/22/18 at 12:17; Status DC Bisacodyl (Dulcolax Supp) 10 mg PRN DAILY PRN SC CONSTIPATION 1ST CHOICE; Start 07/19/18 at 19:45 Polyethylene Glycol (miraLAX PACKET) 17 gm BID PO Last administered on 08:42; Start 07/19/18 at 21:00 Sennosides (Senna) 8.6 mg DAILY PO Last administered on 07/24/18 11:16; Start 07/20/18 at 09:00 Lactobacillus Rhamnosus (Culturelle) 1 cap BID PO Last administered on 11:18; Start 07/20/18 at 21:00 Methylprednisolone Sodium Succinate (SOLU-Medrol 40MG VIAL) 40 mg Q8HRS IV Last administered on 07/25/18at 15:48; Start 07/20/18 at 14:00 Albumin Human 250 ml @ 62.5 mls/hr PRN Q6HRS PRN IV for MAP < 65 Last administered on 07/21/18at 20:45; Start 07/20/18 at 09:45 Magnesium Sulfate 50 ml @ 25 mls/hr PRN DAILY PRN IV for Mag < 1.7 on am labs; Start 07/20/18 at 09:45 Dopamine HCl/ Dextrose 250 ml @ 6.124 mls/ hr CONT PRN IV SEE I/O RECORD Last administered on 07/24/18at 20:37; Start 07/20/18 at 12:00 Sodium Chloride 1,000 ml @ 1,000 mls/hr Q1H PRN IV hypotension; Start 07/21/18 at 13:00; Stop 07/21/18 at 18:59; Status DC Sodium Chloride 1,000 ml @ 400 mls/hr Q2H30M PRN IV PATENCY; Start 07/21/18 at 13:00; Stop 07/22/18 at 00:59; Status DC Info (PHARMACY MONITORING -- do not chart) 1 each PRN DAILY PRN MC SEE COMMENTS ; Start 07/21/18 at 13:30; Status UNV Info (PHARMACY MONITORING -- do not chart) 1 each PRN DAILY PRN MC SEE COMMENTS ; Start 07/21/18 at 13:30; Stop 07/24/18 at 07:10; Status DC Albumin Human 100 ml @ 100 mls/hr 1X ONCE IV Last administered on 07/21/18at 14:00; Start 07/21/18 at 13:30; Stop 07/21/18 at 14:29; Status DC Sodium Chloride 500 ml @ 500 mls/hr 1X ONCE IV Last administered on at 11:14; Start 07/22/18 at 11:15; Stop 07/22/18 at 12:14; Status DC Digoxin (Lanoxin) 125 mcg QMWF@1600 PO ; Start 07/23/18 at 16:00; Stop 07/23/18 at 16:00; Status DC Digoxin (Lanoxin) 125 mcg 1X ONCE PO Last administered on 07/22/18at 12:26; Start 07/22/18 at 12:00; Stop 07/22/18 at 12:01; Status DC Midodrine (Proamatine) 2.5 mg [id number] PO Last administered on 07/24/18at 13:22; Start 07/22/18 at 13:00 Digoxin (Lanoxin) 125 mcg QTUTHSA PO ; Start 07/24/18 at 16:00 Sodium Chloride 500 ml @ 500 mls/hr 1X ONCE IV Last administered on at 15:42; Start 07/23/18 at 15:00; Stop 07/23/18 at 15:59; Status DC Sodium Chloride 1,000 ml @ 1,000 mls/hr Q1H PRN IV hypotension; Start 07/24/18 at 06:59; Stop 07/24/18 at 12:58; Status DC Albumin Human 200 ml @ 200 mls/hr 1X PRN PRN IV Hypotension Last administered on 07/24/18at 08:09; Start 07/24/18 at 07:00; Stop 07/24/18 at 12:59; Status DC Sodium Chloride 1,000 ml @ 400 mls/hr Q2H30M PRN IV PATENCY; Start 07/24/18 at 06:59; Stop 07/24/18 at 18:58; Status DC Info (PHARMACY MONITORING -- do not chart) 1 each PRN DAILY PRN MC SEE COMMENTS ; Start 07/24/18 at 07:00; Stop 07/25/18 at 11:17; Status DC Info (PHARMACY MONITORING -- do not chart) 1 each PRN DAILY PRN MC SEE COMMENTS ; Start 07/24/18 at 07:00; Status UNV Amoxicillin/ Clavulanate Potassium (Augmentin 500/ 125mg) 1 tab BID PO Last administered on 07/24/18at 11:16; Start 07/24/18 at 09:00; Stop 07/25/18 at 09:21 ; Status DC Amino Acids/ Glycerin/ Electrolytes 1,000 ml @ 50 mls/hr Q20H IV Last administered on 07/25/18at 08:07; Start 07/24/18 at 17:00 Heparin Sodium/ Dextrose 500 ml @ 0 mls/hr CONT PRN IV SEE I/O RECORD; Start at 19:30; Status Cancel Heparin Sodium (Porcine) (Heparin Sodium) 6,850 unit 1X ONCE IV Last administered on 07/24/18at 19:38; Start 07/24/18 at 19:30; Stop 07/24/18 at 19:33 ; Status DC Heparin Sodium/ Dextrose 500 ml @ 0 mls/hr CONT PRN IV SEE I/O RECORD; Start at 19:30; Status UNV Heparin Sodium (Porcine) (Heparin Sodium) 2,550 unit PRN Q6HRS PRN IV FOR UFH LEVEL LESS THAN 0.2; Start 07/24/18 at 19:30 Heparin Sodium (Porcine) (Heparin Sodium) 1,300 unit PRN Q6HRS PRN IV FOR UFH LEVEL 0.2 - 0.29; Start 07/24/18 at 19:30 Heparin Sodium/ Dextrose 500 ml @ 0 mls/hr CONT PRN IV SEE I/O RECORD Last administered on 07/24/18at 19:45; Start 07/24/18 at 19:45 Sodium Chloride 1,000 ml @ 1,000 mls/hr Q1H PRN IV hypotension; Start 07/25/18 at 08:22; Stop 07/25/18 at 14:21; Status DC Albumin Human 200 ml @ 200 mls/hr 1X ONCE IV Last administered on 07/25/18at 08:49; Start 07/25/18 at 08:30; Stop 07/25/18 at 09:29; Status DC Diphenhydramine HCl (Benadryl) 25 mg 1X PRN PRN IV ITCHING; Start 07/25/18 at 08:30; Stop 07/26/18 at 08:29 Diphenhydramine HCl (Benadryl) 25 mg 1X PRN PRN IV ITCHING; Start 07/25/18 at 08:30; Stop 07/26/18 at 08:29 Sodium Chloride 1,000 ml @ 400 mls/hr Q2H30M PRN IV PATENCY; Start 07/25/18 at 08:22; Stop 07/25/18 at 20:21 Info (PHARMACY MONITORING -- do not chart) 1 each PRN DAILY PRN MC SEE COMMENTS ; Start 07/25/18 at 08:30 Piperacillin Sod/ Tazobactam Sod 2.25 gm/Sodium Chloride 50 ml @ 100 mls/hr Q8HRS IV Last administered on 07/25/18at 15:47; Start 07/25/18 at 09:30 Info (Anti-Coagulation Monitoring By Pharmacy) 1 each PRN DAILY PRN MC SEE COMMENTS Last administered on 07/25/18at 12:26; Start 07/25/18 at 11:30 Active Scripts Active Levemir (Insulin Detemir) 100 Unit/1 Ml Vial 5 Unit SQ QHS 30 Days Hold for < 140mg/dL Aspirin 325 Mg Tablet 1 Tab PO DAILY Reported Amlodipine Besylate 10 Mg Tablet 10 Mg PO DAILY Tylenol (Acetaminophen) 325 Mg Tablet 2 Tab PO PRN Q6HRS PRN Senna (Sennosides) 8.6 Mg Tablet 8.6 Mg PO DAILY Novolog Flexpen (Insulin Aspart) 100 Unit/1 Ml Insuln.pen 1 Unit SQ TIDAC Miralax (Polyethylene Glycol 3350) 17 Gm Powd.pack 1 Packet PO BID Milk Of Magnesia (Magnesium Hydroxide) 400 Mg/5 Ml Oral.susp 30 Ml PO PRN DAILY Duoneb 0.5-3(2.5) Mg/3 Ml (Albuterol/Ipratropium) 3 Ml Ampul.neb 3 Ml NEB TID Fleet Enema (Na Phos,M-B/Na Phos,Di-Ba) 133 Ml Enema 1 Each RC PRN DAILY PRN Dulcolax (Bisacodyl) 10 Mg Supp.rect 10 Mg RC PRN DAILY PRN Docusate Sodium 100 Mg Capsule 1 Cap PO BID Carvedilol (Carvedilol) 12.5 Mg Tablet 12.5 Mg PO BIDWMEALS Protonix (Pantoprazole Sodium) 20 Mg Tablet.dr 40 Mg PO DAILY Voltaren (Diclofenac Sodium) 100 Gm Gel..gram. 1 Gm TP BID Zofran Odt (Ondansetron) 4 Mg Tab.rapdis 4 Mg PO Q6HRS PRN Sensipar (Cinacalcet Hcl) 30 Mg Tablet 1 Tab PO DAILY Renvela (Sevelamer Carbonate) 2.4 Gm Powd.pack 2.4 Gm PO TIDWMEALS Lumigan (Bimatoprost) 2.5 Ml Drops 1 Drop EACHEYE QHS Calcitriol 0.25 Mcg Capsule 1 Cap PO DAILY Nephro-Roland Tablet (Folic Acid/Vitamin B Comp W-C) 0.8 Mg Tablet 1 Tab PO DAILYBFRSUP Vitamin D (Cholecalciferol (Vitamin D3)) 2,000 Unit Capsule 1 Cap PO DAILY Vitals/I & O Vital Sign - Last 24 Hours 07/24/18 07/24/18 07/24/18 07/24/18 16:31 17:00 18:00 19:00 Pulse 92 96 90 Resp 17 22 B/P (MAP) 108/81 (90) 101/58 (72) 77/49 (58) Pulse Ox 100 100 100 99 O2 Delivery Nasal Cannula Nasal Cannula Nasal Cannula Nasal Cannula O2 Flow Rate 2.0 2.0 2.0 2.0 07/24/18 07/24/18 07/24/18 07/24/18 19:15 20:00 20:00 20:13 Temp 97.8 97.8 Pulse 90 90 Resp 18 B/P (MAP) 91/47 (62) 119/79 (92) Pulse Ox 97 100 O2 Delivery Nasal Cannula Nasal Cannula Nasal Cannula O2 Flow Rate 2.0 2.0 0.5 07/24/18 07/24/18 07/24/18 07/25/18 21:00 22:00 23:00 00:00 Temp 97.1 97.1 Pulse 91 92 90 93 Resp 19 20 25 21 B/P (MAP) 109/55 (73) 110/54 (72) 118/68 (85) 118/82 (94) Pulse Ox 99 97 97 98 O2 Delivery Nasal Cannula Nasal Cannula Nasal Cannula Nasal Cannula O2 Flow Rate 2.0 2.0 2.0 2.0 07/25/18 07/25/18 07/25/18 07/25/18 00:00 01:00 02:00 02:30 Pulse 88 92 88 Resp 25 B/P (MAP) 142/61 (88) 140/69 (92) 146/54 (84) Pulse Ox 96 93 O2 Delivery Nasal Cannula Nasal Cannula Nasal Cannula O2 Flow Rate 2.0 2.0 2.0 07/25/18 07/25/18 07/25/18 07/25/18 02:45 03:00 03:45 04:00 Temp 98.0 98.0 Pulse 90 90 85 81 Resp 23 B/P (MAP) 123/69 (87) 100/66 (77) 138/64 (88) 127/67 (87) Pulse Ox 97 95 O2 Delivery Nasal Cannula Room Air O2 Flow Rate 2.0 07/25/18 07/25/18 07/25/18 07/25/18 04:00 04:30 04:45 05:00 Pulse 84 82 80 Resp 20 B/P (MAP) 127/65 (85) 118/52 (74) 125/64 (84) Pulse Ox 97 O2 Delivery Room Air Room Air 07/25/18 07/25/18 07/25/18 07/25/18 05:15 05:30 06:00 07:00 Pulse 76 71 65 64 Resp 14 13 B/P (MAP) 118/59 (78) 107/44 (65) 110/46 (67) 114/46 (68) Pulse Ox 97 96 O2 Delivery Room Air Room Air 07/25/18 07/25/18 07/25/18 07/25/18 08:00 08:00 08:06 09:00 Pulse 64 77 Resp 16 14 B/P (MAP) 133/58 (83) 109/54 (72) Pulse Ox 97 100 99 O2 Delivery Room Air Room Air Nasal Cannula Room Air O2 Flow Rate 0.5 07/25/18 07/25/18 07/25/18 07/25/18 10:00 11:00 11:53 12:00 Temp 97.5 97.5 Pulse 62 74 70 Resp 13 14 16 B/P (MAP) 100/36 (57) 93/49 (64) 98/67 (77) Pulse Ox 99 100 98 100 O2 Delivery Room Air Room Air Nasal Cannula Room Air O2 Flow Rate 0.5 07/25/18 07/25/18 12:00 15:00 Temp 97.8 97.8 Pulse 64 Resp 17 B/P (MAP) 90/53 (65) Pulse Ox 97 O2 Delivery Room Air Room Air Intake and Output 07/24/18 07/24/18 07/25/18 15:00 23:00 07:00 Intake Total 120 ml 373 ml 1223 ml Output Total 0 ml 0 ml 0 ml Balance 120 ml 373 ml 1223 ml NYA LAWRENCE MD Jul 25, 2018 16:15
--- NOTE | 2018-07-25 16:21 | RAD ---
Procedure: Ultrasound-guided placement of right internal jugular central venous catheter07/25/2018 4:17 PM Clinical Indication: Need for central venous access. Patient in ICU, critically ill. Multiple IV medications. Discussion: The risks and benefits of the procedure were discussed the patient and/or their scheduling representative. Informed consent was obtained. A timeout procedure was performed. All elements of maximal sterile barrier technique including the use of a cap, mask, sterile gown, sterile gloves, large sterile sheet, appropriate hand hygiene, and 2% chlorhexidine for cutaneous antisepsis (or acceptable alternative antiseptic per current guidelines) were followed for this procedure. The patient was prepped and draped in the usual sterile fashion. Ultrasound interrogation of the right neck revealed patency and compressibility of the right internal jugular vein. A 21-gauge micropuncture was then used to gain access to this vein under ultrasound guidance. A hard copy ultrasound image was recorded. A guidewire was advanced centrally. 5 Salvadorean sheath was placed. Over a wire following dilatation, a triple-lumen central venous catheter was advanced centrally. Catheter was found to flush and aspirate normally. Follow-up chest radiograph demonstrates tip at the cavoatrial junction. Catheter secured in place and a sterile dressing was applied. No immediate complications were identified. Impression: Successful ultrasound-guided placement of right internal jugular triple-lumen central venous catheter
[2018-07-25] MEDS: FOLIC/VIT B COMP W-C (RENAL) TABLET. PO SCH (17:00)
[2018-07-25] MEDS: LATANOPROST 0.005% OPHTH SOLUTION 2.5ML BOTTLE. OU SCH (21:21)
[2018-07-25] MEDS: INSULIN GLARGINE 300 UNITS/3 ML INSULN.PEN. SQ SCH (21:34)
--- NOTE | 2018-07-25 23:20 | NUR ---
report called to [facility] on [facility] for pt transfer. pt updated on plan of care, voices understanding. daughter phoned and notified of pt's new room assignment. all of pt's personal belongings taken with her upon transfer, pt also in stable condition upon transfer as well.
[2018-07-26 00:10] VITALS: BP 132/58
[2018-07-26 03:00] VITALS: BP 109/54
[2018-07-26] MEDS: AMINO AC 3%/ELECTROLYTE/GLYCER 1,000 ML IV SCH (04:10)
[2018-07-26] MEDS: HEPARIN 25,000UTS/500ML PREMIX 500 ML IV PRN (04:14)
[2018-07-26] MEDS: PIPERACILLIN/TAZOBACTAM 2.25 GM in IV NORMAL SALINE 50ML 50 ML IV SCH ×3 (05:47→21:30)
[2018-07-26] MEDS: methylPREDNISolone SOD SUCC PF 40 MG/ML VIAL. IV SCH ×3 (05:47→21:29)
[2018-07-26 06:23] LABS: CALCIUM 8.1 mg/dL (8.5-10.1); GFR 14.8; PHOSPHORUS 2.7 mg/dL (2.6-4.7); POTASSIUM 4.2 mmol/L (3.5-5.1)
[2018-07-26 07:00] VITALS: BP 150/59
[2018-07-26] MEDS: MIDODRINE 2.5 MG TABLET PO SCH ×3 (07:00→17:23)
[2018-07-26] MEDS: PANTOPRAZOLE 40 MG TABLET.DR. PO SCH (07:18)
[2018-07-26] MEDS: SEVELAMER CARBONATE 2.4 GM PACKET. PO SCH ×3 (08:00→16:56)
[2018-07-26] MEDS: IPRATRPIUM/ALBUTEROL 0.5/2.5MG 3 ML NEBU. NEB SCH ×4 (08:08→19:58)
[2018-07-26] MEDS ORDERED: DIALYSIS PATIENT. MC PRN ×2 (08:15)
[2018-07-26] MEDS: INSULIN LISPRO 300 UNITS/3 ML INSULN.PEN. SQ SCH ×3 (08:37→17:25)
[2018-07-26] MEDS: DICLOFENAC SODIUM 1% TOPICAL GEL 100GM TUBE. TP SCH ×2 (09:00→21:30)
[2018-07-26] MEDS: guaiFENesin DM 200MG/20MG 10 ML SYRUP PO SCH ×4 (09:00→21:29)
[2018-07-26] MEDS: SENNOSIDES 8.6 MG TABLET PO SCH (09:00)
[2018-07-26] MEDS: CALCITRIOL 0.25 MCG CAPSULE. PO SCH (09:00)
[2018-07-26] MEDS: LACTOBACILLUS RHAMNOSUS GG 1 CAPSULE. PO SCH ×2 (09:00→21:29)
[2018-07-26] MEDS: CHOLECALCIFEROL (VITAMIN D3) 1,000 UNIT TABLET PO SCH (09:00)
[2018-07-26] MEDS: CINACALCET HCL 30 MG TABLET PO SCH (09:00)
[2018-07-26] MEDS: ASPIRIN 325 MG TABLET PO SCH (09:00)
[2018-07-26] MEDS: POLYETHYLENE GLYCOL 3350 17 GM PACKET. PO SCH ×2 (09:00→21:29)
[2018-07-26] MEDS: DOCUSATE SODIUM 100 MG CAPSULE. PO SCH ×2 (09:00→21:29)
--- NOTE | 2018-07-26 09:58 | PDOC ---
Infectious Disease Note Subjective Subjective Tired, says hasn't slept well in 3 days, "worrying" Hopes to see her daughter soon Cough with phlegm production PPN - NPO Denies F/C/S/aches Denies N/V/D Denies CP/SOA ROS ROS per HPI otherwise negative Vital Sign Vital Signs Vital Signs Date Time Temp Pulse Resp B/P (MAP) Pulse Ox O2 Delivery O2 Flow Rate FiO2 07/26/18 08:10 95 Room Air 07/26/18 07:00 98.1 68 16 150/59 (89) 98.1 07/25/18 16:09 0.5 Physical Exam PHYSICAL EXAM GENERAL: Propped up in bed, alert, dialyzing - Up in chair currently HEENT: PATRICIA, Oropharynx dry LUNGS: Diminished aeration bases, no wheezes HEART: S1, S2. ABDOMEN: Obese, soft and nontender. EXTREMITIES: No edema, no cyanosis. SKIN: No generalized rash. Chronic skin changes present in both lower extremities. No evidence of infection. Right upper extremity fistula site looks okay. CENTRAL NERVOUS SYSTEM: Alert and oriented. Grossly nonfocal. RIJ (07/25) without signs of any complications Labs Lab Laboratory Tests Test 07/25/18 13:05 07/25/18 17:24 07/25/18 21:24 07/25/18 22:00 Glucose (Fingerstick) 119 mg/dL (70-99) 152 mg/dL (70-99) 165 mg/dL (70-99) Heparin Anti-Xa Act, Unfractionated 0.20 IU/mL (0.30-0.70) Test 07/26/18 05:55 07/26/18 08:18 Heparin Anti-Xa Act, Unfractionated 0.53 IU/mL (0.30-0.70) Sodium Level 133 mmol/L (136-145) Potassium Level 4.2 mmol/L (3.5-5.1) Chloride Level 94 mmol/L (98-107) Carbon Dioxide Level 27 mmol/L (21-32) Anion Gap 12 (6-14) Blood Urea Nitrogen 36 mg/dL (7-20) Creatinine 3.0 mg/dL (0.6-1.0) Estimated GFR (Cockcroft-Gault) 14.8 Glucose Level 268 mg/dL (70-99) Calcium Level 8.1 mg/dL (8.5-10.1) Phosphorus Level 2.7 mg/dL (2.6-4.7) Albumin 3.0 g/dL (3.4-5.0) Glucose (Fingerstick) 285 mg/dL (70-99) Objective Assessment Dyspnea with cough and bronchospasm with recent viral pneumonia with possible secondary infection, also had high BNP. Just passed her swallow study Hypotensive during dialysis. Leukocytosis, on steroids.- better End-stage renal disease, on hemodialysis. Obesity. Chronic hypoxic respiratory failure, on home O2 at 2 liters. Anemia of chronic kidney disease. ? aspiration Plan Plan of Care Zosyn since 07/19, wean soon Elevate LUE Supportive care D/w family/nursing and speech Attending Co-Sign Attending Co-Sign The patient was seen and interviewed as well as examined at the bedside. The chart was reviewed. The case was discussed. Agree with the plan of care. MOISES BARKER APRN Jul 26, 2018 09:58 TRACY HERNANDEZ MD Jul 26, 2018 14:21
--- NOTE | 2018-07-26 12:15 | PDOC ---
PULMONARY PROGRESS NOTES Subjective SEE DURING HD OFF PRESSORS NOT MORE SOA Vitals Vital Signs Date Time Temp Pulse Resp B/P (MAP) Pulse Ox O2 Delivery O2 Flow Rate FiO2 07/26/18 08:10 95 Room Air 07/26/18 07:00 98.1 68 16 150/59 (89) 98.1 07/25/18 16:09 0.5 ROS: No Nausea, No Chest Pain, No Abdominal Pain, No Increase Cough General: Alert, No acute distress Lungs: Wheezing, Crackles (less crackles) Cardiovascular: S1, S2 Abdomen: Soft Neuro Exam: Alert Extremities: Other (EDEMA L) Skin: Warm Labs Laboratory Tests Test 07/24/18 17:26 07/24/18 20:36 07/25/18 00:55 07/25/18 05:10 Glucose (Fingerstick) 264 mg/dL (70-99) 236 mg/dL (70-99) White Blood Count 13.3 x10^3/uL (4.0-11.0) 10.2 x10^3/uL (4.0-11.0) Red Blood Count 3.71 x10^6/uL (3.50-5.40) 3.37 x10^6/uL (3.50-5.40) Hemoglobin 12.6 g/dL (12.0-15.5) 11.8 g/dL (12.0-15.5) Hematocrit 38.1 % (36.0-47.0) 34.6 % (36.0-47.0) Mean Corpuscular Volume 103 fL (79-100) 103 fL (79-100) Mean Corpuscular Hemoglobin 34 pg (25-35) 35 pg (25-35) Mean Corpuscular Hemoglobin Concent 33 g/dL (31-37) 34 g/dL (31-37) Red Cell Distribution Width 15.7 % (11.5-14.5) 15.8 % (11.5-14.5) Platelet Count 203 x10^3/uL (140-400) 161 x10^3/uL (140-400) Heparin Anti-Xa Act, Unfractionated 1.07 IU/mL (0.30-0.70) Neutrophils (%) (Auto) 84 % (31-73) Lymphocytes (%) (Auto) 7 % (24-48) Monocytes (%) (Auto) 9 % (0-9) Eosinophils (%) (Auto) 0 % (0-3) Basophils (%) (Auto) 1 % (0-3) Neutrophils # (Auto) 8.5 x10^3uL (1.8-7.7) Lymphocytes # (Auto) 0.7 x10^3/uL (1.0-4.8) Monocytes # (Auto) 0.9 x10^3/uL (0.0-1.1) Eosinophils # (Auto) 0.0 x10^3/uL (0.0-0.7) Basophils # (Auto) 0.1 x10^3/uL (0.0-0.2) Sodium Level 132 mmol/L (136-145) Potassium Level 4.1 mmol/L (3.5-5.1) Chloride Level 94 mmol/L (98-107) Carbon Dioxide Level 26 mmol/L (21-32) Anion Gap 12 (6-14) Blood Urea Nitrogen 53 mg/dL (7-20) Creatinine 3.9 mg/dL (0.6-1.0) Estimated GFR (Cockcroft-Gault) 10.9 Glucose Level 324 mg/dL (70-99) Calcium Level 7.9 mg/dL (8.5-10.1) Phosphorus Level 3.0 mg/dL (2.6-4.7) Magnesium Level 2.6 mg/dL (1.8-2.4) Albumin 2.5 g/dL (3.4-5.0) Test 07/25/18 08:16 07/25/18 13:05 07/25/18 17:24 07/25/18 21:24 Glucose (Fingerstick) 245 mg/dL (70-99) 119 mg/dL (70-99) 152 mg/dL (70-99) 165 mg/dL (70-99) Test 07/25/18 22:00 07/26/18 05:55 07/26/18 08:18 Heparin Anti-Xa Act, Unfractionated 0.20 IU/mL (0.30-0.70) 0.53 IU/mL (0.30-0.70) Sodium Level 133 mmol/L (136-145) Potassium Level 4.2 mmol/L (3.5-5.1) Chloride Level 94 mmol/L (98-107) Carbon Dioxide Level 27 mmol/L (21-32) Anion Gap 12 (6-14) Blood Urea Nitrogen 36 mg/dL (7-20) Creatinine 3.0 mg/dL (0.6-1.0) Estimated GFR (Cockcroft-Gault) 14.8 Glucose Level 268 mg/dL (70-99) Calcium Level 8.1 mg/dL (8.5-10.1) Phosphorus Level 2.7 mg/dL (2.6-4.7) Albumin 3.0 g/dL (3.4-5.0) Glucose (Fingerstick) 285 mg/dL (70-99) Laboratory Tests Test 07/25/18 13:05 07/25/18 17:24 07/25/18 21:24 07/25/18 22:00 Glucose (Fingerstick) 119 mg/dL (70-99) 152 mg/dL (70-99) 165 mg/dL (70-99) Heparin Anti-Xa Act, Unfractionated 0.20 IU/mL (0.30-0.70) Test 07/26/18 05:55 07/26/18 08:18 Heparin Anti-Xa Act, Unfractionated 0.53 IU/mL (0.30-0.70) Sodium Level 133 mmol/L (136-145) Potassium Level 4.2 mmol/L (3.5-5.1) Chloride Level 94 mmol/L (98-107) Carbon Dioxide Level 27 mmol/L (21-32) Anion Gap 12 (6-14) Blood Urea Nitrogen 36 mg/dL (7-20) Creatinine 3.0 mg/dL (0.6-1.0) Estimated GFR (Cockcroft-Gault) 14.8 Glucose Level 268 mg/dL (70-99) Calcium Level 8.1 mg/dL (8.5-10.1) Phosphorus Level 2.7 mg/dL (2.6-4.7) Albumin 3.0 g/dL (3.4-5.0) Glucose (Fingerstick) 285 mg/dL (70-99) Medications Active Scripts Medications Dose Route/Sig Max Daily Dose Days Date Category Dose Instructions Senna (Sennosides) 8.6 Mg Tablet 8.6 Mg PO DAILY 07/19/18 Reported Novolog Flexpen (Insulin Aspart) 100 Unit/1 Ml Insuln.pen 1 Unit SQ TIDAC 07/19/18 Reported Miralax (Polyethylene Glycol 3350) 17 Gm Powd.pack 1 Packet PO BID 07/19/18 Reported Milk Of Magnesia (Magnesium Hydroxide) 400 Mg/5 Ml Oral.susp 30 Ml PO PRN DAILY 07/19/18 Reported Duoneb 0.5-3(2.5) Mg/3 Ml (Albuterol/Ipratropium) 3 Ml Ampul.neb 3 Ml NEB TID 07/19/18 Reported Fleet Enema (Na Phos,M-B/Na Phos,Di-Ba) 133 Ml Enema 1 Each RC PRN DAILY PRN 07/19/18 Reported Dulcolax (Bisacodyl) 10 Mg Supp.rect 10 Mg RC PRN DAILY PRN 07/19/18 Reported Docusate Sodium 100 Mg Capsule 1 Cap PO BID 07/19/18 Reported Carvedilol (Carvedilol) 12.5 Mg Tablet 12.5 Mg PO BIDWMEALS 07/19/18 Reported Levemir (Insulin Detemir) 100 Unit/1 Ml Vial 5 Unit SQ QHS 30 07/15/18 Rx Hold for < 140mg/dL Acetaminophen 500 Mg Tablet 500 Mg PO PRN Q6HRS PRN 30 07/14/18 Rx Aspirin 325 Mg Tablet 1 Tab PO DAILY 04/16/18 Rx Protonix (Pantoprazole Sodium) 20 Mg Tablet.dr 40 Mg PO DAILY 11/06/17 Reported Voltaren (Diclofenac Sodium) 100 Gm Gel..gram. 1 Gm TP BID 11/06/17 Reported Zofran Odt (Ondansetron) 4 Mg Tab.rapdis 4 Mg PO Q6HRS PRN 10/30/17 Reported Sensipar (Cinacalcet Hcl) 30 Mg Tablet 1 Tab PO DAILY 02/04/17 Reported Renvela (Sevelamer Carbonate) 2.4 Gm Powd.pack 2.4 Gm PO TIDWMEALS 02/04/17 Reported Lumigan (Bimatoprost) 2.5 Ml Drops 1 Drop EACHEYE QHS 02/04/17 Reported Calcitriol 0.25 Mcg Capsule 1 Cap PO DAILY 01/18/17 Reported Nephro-Roland Tablet (Folic Acid/Vitamin B Comp W-C) 0.8 Mg Tablet 1 Tab PO DAILYBFRSUP 11/26/15 Reported Vitamin D (Cholecalciferol (Vitamin D3)) 2,000 Unit Capsule 1 Cap PO DAILY 11/26/15 Reported Impression . IMPRESSION: 1. Dyspnea with cough and mild bronchospasm, likely related to viral pneumonitis, triggering bronchospasm. She may have adult onset reactive airway disease. 2. Recent abnormal CT chest on 07/11 suggesting upper lobe viral pneumonitis. She has some ground glass infiltrates at that time. 3. End-stage renal disease, on hemodialysis. 4. Underlying obesity. 5. Chronic hypoxic respiratory failure, on home oxygen 2 liters. 6 HYPOTENSION IMPROVED 7. LEONIE EXT BRACHIAL CLOT SEE BELOW PICC REMOVED 07/25 CENTRAL LINE 07/25 Impression: Successful ultrasound-guided placement of right internal jugular triple-lumen central venous catheter Plan . CONTINUE THE SAME STARTED ON HEPARIN FOR BRACHIAL CLOT AGREE WITH DR CALERO PALLIATIVE CARE WOULD BE APPROPRIATE FOR THIS PATIENT JULIANE MILLER MD Jul 26, 2018 12:15
[2018-07-26] MEDS ORDERED: BARIUM SULFATE 40% (APPLE) 148 GM PWD. PO ONE (13:30)
[2018-07-26] MEDS: ANTI-COAG MONITOR BY PHARMACY. MC PRN (14:14)
--- NOTE | 2018-07-26 14:26 | RAD ---
Video swallowing examination History: Dysphagia Findings: Fluoroscopy time, fluoroscopy images: 2.4 minutes, 0 images Patient was given a variety of consistencies of barium with a member of the speech pathology department present. There was laryngeal penetration with thin consistencies with larger boluses, not seen with smaller boluses. No episodes of aspiration were identified with the various tested consistencies. Impression: 1. There was laryngeal pressure of thin inconsistency with larger bolus. Electronically signed by: Sly Rubi MD (07/26/2018 2:23 PM) [facility]
[2018-07-26 15:00] VITALS: BP 147/67
--- NOTE | 2018-07-26 15:09 | PDOC ---
PROGRESS NOTES Chief Complaint Chief Complaint SOA, fluid overload and treating HCAP ESRD on dialysis-did not finish dialysis Existing AV fistula Hypotension, resolved now hypertension Anemia of chronic disease Generalized weakness SNU resident Diabetes type 2 on low-dose insulin symptomatic with lethargy hypotension dysphagia, malnutrition 87-year-old female //admitted from 07/10 thru 07/15, discharge 4 days [employer] to [employer] , SNU resident, sepsis to ICU, now improved, swallow eval today may start diet History of Present Illness History of Present Illness patchy ground glass opacification of the lungs. dysphagia and aspiration . MOD-SEVERE protein-caloric malnutrition try to transfer to LTAC Vitals Vitals Vital Signs Date Time Temp Pulse Resp B/P (MAP) Pulse Ox O2 Delivery O2 Flow Rate FiO2 07/26/18 14:43 89 126/67 07/26/18 12:32 Room Air 07/26/18 08:10 95 07/26/18 07:00 98.1 16 98.1 07/25/18 16:09 0.5 Physical Exam Physical Exam GENERAL: Propped up in bed, alert, dialyzing - Up in chair currently HEENT: PATRICIA, Oropharynx dry LUNGS: Diminished aeration bases, no wheezes HEART: S1, S2. ABDOMEN: Obese, soft and nontender. EXTREMITIES: No edema, no cyanosis. SKIN: No generalized rash. Chronic skin changes present in both lower extremities. No evidence of infection. Right upper extremity fistula site looks okay. CENTRAL NERVOUS SYSTEM: Alert and oriented. Grossly nonfocal. RIJ (07/25) without signs of any complications General: Alert, No acute distress, mild distress Heart: Regular rate Lungs: Wheezing, Crackles (less crackles) Abdomen: Normal bowel sounds Extremities: No clubbing, No cyanosis, No edema, Normal pulses, No tenderness/ swelling Skin: No rashes, No breakdown, No significant lesion Labs LABS Laboratory Tests Test 07/25/18 17:24 07/25/18 21:24 07/25/18 22:00 07/26/18 05:55 Glucose (Fingerstick) 152 mg/dL (70-99) 165 mg/dL (70-99) Heparin Anti-Xa Act, Unfractionated 0.20 IU/mL (0.30-0.70) 0.53 IU/mL (0.30-0.70) Sodium Level 133 mmol/L (136-145) Potassium Level 4.2 mmol/L (3.5-5.1) Chloride Level 94 mmol/L (98-107) Carbon Dioxide Level 27 mmol/L (21-32) Anion Gap 12 (6-14) Blood Urea Nitrogen 36 mg/dL (7-20) Creatinine 3.0 mg/dL (0.6-1.0) Estimated GFR (Cockcroft-Gault) 14.8 Glucose Level 268 mg/dL (70-99) Calcium Level 8.1 mg/dL (8.5-10.1) Phosphorus Level 2.7 mg/dL (2.6-4.7) Albumin 3.0 g/dL (3.4-5.0) Test 07/26/18 08:18 Glucose (Fingerstick) 285 mg/dL (70-99) Review of Systems Review of Systems some weaknes no n.v.d Assessment and Plan Assessmemt and Plan Problems Medical Problems: (1) Congestive heart failure Status: Acute Comment Review of Relevant I have reviewed the following items smith (where applicable) has been applied. Labs Laboratory Tests Test 07/24/18 17:26 07/24/18 20:36 07/25/18 00:55 07/25/18 05:10 Glucose (Fingerstick) 264 mg/dL (70-99) 236 mg/dL (70-99) White Blood Count 13.3 x10^3/uL (4.0-11.0) 10.2 x10^3/uL (4.0-11.0) Red Blood Count 3.71 x10^6/uL (3.50-5.40) 3.37 x10^6/uL (3.50-5.40) Hemoglobin 12.6 g/dL (12.0-15.5) 11.8 g/dL (12.0-15.5) Hematocrit 38.1 % (36.0-47.0) 34.6 % (36.0-47.0) Mean Corpuscular Volume 103 fL (79-100) 103 fL (79-100) Mean Corpuscular Hemoglobin 34 pg (25-35) 35 pg (25-35) Mean Corpuscular Hemoglobin Concent 33 g/dL (31-37) 34 g/dL (31-37) Red Cell Distribution Width 15.7 % (11.5-14.5) 15.8 % (11.5-14.5) Platelet Count 203 x10^3/uL (140-400) 161 x10^3/uL (140-400) Heparin Anti-Xa Act, Unfractionated 1.07 IU/mL (0.30-0.70) Neutrophils (%) (Auto) 84 % (31-73) Lymphocytes (%) (Auto) 7 % (24-48) Monocytes (%) (Auto) 9 % (0-9) Eosinophils (%) (Auto) 0 % (0-3) Basophils (%) (Auto) 1 % (0-3) Neutrophils # (Auto) 8.5 x10^3uL (1.8-7.7) Lymphocytes # (Auto) 0.7 x10^3/uL (1.0-4.8) Monocytes # (Auto) 0.9 x10^3/uL (0.0-1.1) Eosinophils # (Auto) 0.0 x10^3/uL (0.0-0.7) Basophils # (Auto) 0.1 x10^3/uL (0.0-0.2) Sodium Level 132 mmol/L (136-145) Potassium Level 4.1 mmol/L (3.5-5.1) Chloride Level 94 mmol/L (98-107) Carbon Dioxide Level 26 mmol/L (21-32) Anion Gap 12 (6-14) Blood Urea Nitrogen 53 mg/dL (7-20) Creatinine 3.9 mg/dL (0.6-1.0) Estimated GFR (Cockcroft-Gault) 10.9 Glucose Level 324 mg/dL (70-99) Calcium Level 7.9 mg/dL (8.5-10.1) Phosphorus Level 3.0 mg/dL (2.6-4.7) Magnesium Level 2.6 mg/dL (1.8-2.4) Albumin 2.5 g/dL (3.4-5.0) Test 07/25/18 08:16 07/25/18 13:05 07/25/18 17:24 07/25/18 21:24 Glucose (Fingerstick) 245 mg/dL (70-99) 119 mg/dL (70-99) 152 mg/dL (70-99) 165 mg/dL (70-99) Test 07/25/18 22:00 07/26/18 05:55 07/26/18 08:18 Heparin Anti-Xa Act, Unfractionated 0.20 IU/mL (0.30-0.70) 0.53 IU/mL (0.30-0.70) Sodium Level 133 mmol/L (136-145) Potassium Level 4.2 mmol/L (3.5-5.1) Chloride Level 94 mmol/L (98-107) Carbon Dioxide Level 27 mmol/L (21-32) Anion Gap 12 (6-14) Blood Urea Nitrogen 36 mg/dL (7-20) Creatinine 3.0 mg/dL (0.6-1.0) Estimated GFR (Cockcroft-Gault) 14.8 Glucose Level 268 mg/dL (70-99) Calcium Level 8.1 mg/dL (8.5-10.1) Phosphorus Level 2.7 mg/dL (2.6-4.7) Albumin 3.0 g/dL (3.4-5.0) Glucose (Fingerstick) 285 mg/dL (70-99) Laboratory Tests Test 07/25/18 17:24 07/25/18 21:24 07/25/18 22:00 07/26/18 05:55 Glucose (Fingerstick) 152 mg/dL (70-99) 165 mg/dL (70-99) Heparin Anti-Xa Act, Unfractionated 0.20 IU/mL (0.30-0.70) 0.53 IU/mL (0.30-0.70) Sodium Level 133 mmol/L (136-145) Potassium Level 4.2 mmol/L (3.5-5.1) Chloride Level 94 mmol/L (98-107) Carbon Dioxide Level 27 mmol/L (21-32) Anion Gap 12 (6-14) Blood Urea Nitrogen 36 mg/dL (7-20) Creatinine 3.0 mg/dL (0.6-1.0) Estimated GFR (Cockcroft-Gault) 14.8 Glucose Level 268 mg/dL (70-99) Calcium Level 8.1 mg/dL (8.5-10.1) Phosphorus Level 2.7 mg/dL (2.6-4.7) Albumin 3.0 g/dL (3.4-5.0) Test 07/26/18 08:18 Glucose (Fingerstick) 285 mg/dL (70-99) Medications Current Medications Albuterol/ Ipratropium (Duoneb) 3 ml 1X ONCE NEB Last administered on at 12:57; Start 07/19/18 at 12:45; Stop 07/19/18 at 12:46; Status DC Ondansetron HCl (Zofran) 4 mg PRN Q8HRS PRN IV NAUSEA/VOMITING; Start 07/19/18 at 14:30; Stop 07/20/18 at 14:29; Status DC Acetaminophen (Tylenol) 650 mg PRN Q4HRS PRN PO FEVER; Start 07/19/18 at 14:30 ; Stop 07/20/18 at 08:37; Status DC Nitroglycerin (Nitrostat) 0.4 mg PRN Q5MIN PRN SL CHEST PAIN; Start 07/19/18 at 14:30; Stop 07/20/18 at 14:29; Status DC Albuterol/ Ipratropium (Duoneb) 3 ml RTQID NEB ; Start 07/19/18 at 16:00; Stop 07/20/18 at 15:59; Status Cancel Aspirin (Tracee Aspirin) 325 mg DAILY PO Last administered on 07/24/18at 11:16; Start 07/19/18 at 15:00 Carvedilol (Coreg) 3.125 mg BIDWMEALS PO ; Start 07/19/18 at 17:00; Stop at 19:42; Status DC Cinacalcet (Sensipar) 30 mg DAILY PO Last administered on 07/24/18at 11:16; Start 07/19/18 at 15:00 Diclofenac Sodium (Voltaren) 1 grisel BID TP Last administered on 07/25/18 21:21 ; Start 07/19/18 at 21:00 Fentanyl (Duragesic 12mcg/ Hr Patch) 1 patch Q3DAYS TD ; Start 07/19/18 at 15:00 ; Stop 07/19/18 at 19:42; Status DC Vitamin B Complex/ Vitamin C (Bela-Roland) 1 tab DAILYBFRSUP PO Last administered on 07/24/18at 11:17; Start 07/19/18 at 17:00 Ondansetron HCl (Zofran Odt) 4 mg PRN Q6HRS PRN PO NAUSEA/VOMITING; Start 07/19 at 14:45 Sevelamer Carbonate (Renvela) 2.4 gm TIDWMEALS PO Last administered on at 17:58; Start 07/19/18 at 17:00 Acetaminophen (Tylenol) 500 mg PRN Q6HRS PRN PO MILD PAIN / TEMP; Start at 14:45 Latanoprost (Xalatan) 1 drop QHS OU Last administered on 07/25/18 21:21; Start 07/19/18 at 21:00 Calcitriol (Rocaltrol) 0.25 mcg DAILY PO Last administered on 07/24/18 11:17; Start 07/20/18 at 09:00 Vitamin D (Vitamin D3) 1,000 unit DAILY PO Last administered on 07/24/18 11:16 ; Start 07/20/18 at 09:00 Hydromorphone HCl (Dilaudid) 2 mg PRN Q8HRS PRN PO MODERATE PAIN, SEVERE PAIN; Start 07/19/18 at 15:00; Stop 07/20/18 at 09:31; Status DC Insulin Glargine (Lantus) 5 units QHS SQ Last administered on 07/25/18at 21:34; Start 07/19/18 at 21:00 Non-Formulary Medication (Latanoprost/Pf (Latanoprost 0.005% Eye Drop)) 7.5 ml QHS OP ; Start 07/19/18 at 21:00; Status UNV Pantoprazole Sodium (Protonix) 40 mg DAILYAC PO Last administered on 07/24/18 11:17; Start 07/20/18 at 07:30 Piperacillin Sod/ Tazobactam Sod (Zosyn Per Pharmacy) 1 each PRN DAILY PRN MC SEE COMMENTS; Start 07/19/18 at 14:45; Stop 07/24/18 at 11:11; Status DC Albuterol/ Ipratropium (Duoneb) 3 ml RTQID NEB Last administered on 07/26/18at 12:31; Start 07/19/18 at 16:00 Guaifenesin (Robitussin Dm) 10 ml QID PO Last administered on 07/26/18 14:43; Start 07/19/18 at 17:00 Temazepam (Restoril) 7.5 mg PRN QHS PRN PO INSOMNIA Last administered on at 20:42; Start 07/19/18 at 14:45 Insulin Human Lispro (HumaLOG) 0-7 UNITS TIDWMEALS SQ Last administered on 07/26 08:37; Start 07/19/18 at 17:00 Dextrose (Dextrose 50%-Water Syringe) 12.5 gm PRN Q15MIN PRN IV SEE COMMENTS; Start 07/19/18 at 14:45 Piperacillin Sod/ Tazobactam Sod 2.25 gm/Sodium Chloride 50 ml @ 100 mls/hr Q8H IV Last administered on 07/24/18at 00:10; Start 07/19/18 at 16:00; Stop at 08:08; Status DC Furosemide (Lasix) 40 mg 1X ONCE IVP Last administered on 07/19/18at 14:52; Start 07/19/18 at 14:45; Stop 07/19/18 at 14:52; Status DC Docusate Sodium (Colace) 100 mg BID PO Last administered on 07/24/18 11:17; Start 07/19/18 at 21:00 Magnesium Hydroxide (Milk Of Magnesia) 2,400 mg PRN DAILY PRN PO CONSTIPATION; Start 07/19/18 at 19:45 Sodium Monofluorophosphate (Fleet Adult) 133 ml PRN DAILY PRN RC CONSTIPATION; Start 07/19/18 at 19:45; Stop 07/22/18 at 12:17; Status DC Bisacodyl (Dulcolax Supp) 10 mg PRN DAILY PRN NM CONSTIPATION 1ST CHOICE; Start 07/19/18 at 19:45 Polyethylene Glycol (miraLAX PACKET) 17 gm BID PO Last administered on 08:42; Start 07/19/18 at 21:00 Sennosides (Senna) 8.6 mg DAILY PO Last administered on 07/24/18 11:16; Start 07/20/18 at 09:00 Lactobacillus Rhamnosus (Culturelle) 1 cap BID PO Last administered on 11:18; Start 07/20/18 at 21:00 Methylprednisolone Sodium Succinate (SOLU-Medrol 40MG VIAL) 40 mg Q8HRS IV Last administered on 07/26/18at 14:43; Start 07/20/18 at 14:00 Albumin Human 250 ml @ 62.5 mls/hr PRN Q6HRS PRN IV for MAP < 65 Last administered on 07/21/18at 20:45; Start 07/20/18 at 09:45 Magnesium Sulfate 50 ml @ 25 mls/hr PRN DAILY PRN IV for Mag < 1.7 on am labs; Start 07/20/18 at 09:45 Dopamine HCl/ Dextrose 250 ml @ 6.124 mls/ hr CONT PRN IV SEE I/O RECORD Last administered on 07/24/18at 20:37; Start 07/20/18 at 12:00; Stop 07/26/18 at 14:13 ; Status DC Sodium Chloride 1,000 ml @ 1,000 mls/hr Q1H PRN IV hypotension; Start 07/21/18 at 13:00; Stop 07/21/18 at 18:59; Status DC Sodium Chloride 1,000 ml @ 400 mls/hr Q2H30M PRN IV PATENCY; Start 07/21/18 at 13:00; Stop 07/22/18 at 00:59; Status DC Info (PHARMACY MONITORING -- do not chart) 1 each PRN DAILY PRN MC SEE COMMENTS ; Start 07/21/18 at 13:30; Status UNV Info (PHARMACY MONITORING -- do not chart) 1 each PRN DAILY PRN MC SEE COMMENTS ; Start 07/21/18 at 13:30; Stop 07/24/18 at 07:10; Status DC Albumin Human 100 ml @ 100 mls/hr 1X ONCE IV Last administered on 07/21/18at 14:00; Start 07/21/18 at 13:30; Stop 07/21/18 at 14:29; Status DC Sodium Chloride 500 ml @ 500 mls/hr 1X ONCE IV Last administered on at 11:14; Start 07/22/18 at 11:15; Stop 07/22/18 at 12:14; Status DC Digoxin (Lanoxin) 125 mcg QMWF@1600 PO ; Start 07/23/18 at 16:00; Stop 07/23/18 at 16:00; Status DC Digoxin (Lanoxin) 125 mcg 1X ONCE PO Last administered on 07/22/18at 12:26; Start 07/22/18 at 12:00; Stop 07/22/18 at 12:01; Status DC Midodrine (Proamatine) 2.5 mg [id number] PO Last administered on 07/26/18at 14:43; Start 07/22/18 at 13:00 Digoxin (Lanoxin) 125 mcg QTUTHSA PO ; Start 07/24/18 at 16:00 Sodium Chloride 500 ml @ 500 mls/hr 1X ONCE IV Last administered on at 15:42; Start 07/23/18 at 15:00; Stop 07/23/18 at 15:59; Status DC Sodium Chloride 1,000 ml @ 1,000 mls/hr Q1H PRN IV hypotension; Start 07/24/18 at 06:59; Stop 07/24/18 at 12:58; Status DC Albumin Human 200 ml @ 200 mls/hr 1X PRN PRN IV Hypotension Last administered on 07/24/18at 08:09; Start 07/24/18 at 07:00; Stop 07/24/18 at 12:59; Status DC Sodium Chloride 1,000 ml @ 400 mls/hr Q2H30M PRN IV PATENCY; Start 07/24/18 at 06:59; Stop 07/24/18 at 18:58; Status DC Info (PHARMACY MONITORING -- do not chart) 1 each PRN DAILY PRN MC SEE COMMENTS ; Start 07/24/18 at 07:00; Stop 07/25/18 at 11:17; Status DC Info (PHARMACY MONITORING -- do not chart) 1 each PRN DAILY PRN MC SEE COMMENTS ; Start 07/24/18 at 07:00; Status UNV Amoxicillin/ Clavulanate Potassium (Augmentin 500/ 125mg) 1 tab BID PO Last administered on 07/24/18at 11:16; Start 07/24/18 at 09:00; Stop 07/25/18 at 09:21 ; Status DC Amino Acids/ Glycerin/ Electrolytes 1,000 ml @ 50 mls/hr Q20H IV Last administered on 07/26/18at 04:10; Start 07/24/18 at 17:00 Heparin Sodium/ Dextrose 500 ml @ 0 mls/hr CONT PRN IV SEE I/O RECORD; Start at 19:30; Status Cancel Heparin Sodium (Porcine) (Heparin Sodium) 6,850 unit 1X ONCE IV Last administered on 07/24/18at 19:38; Start 07/24/18 at 19:30; Stop 07/24/18 at 19:33 ; Status DC Heparin Sodium/ Dextrose 500 ml @ 0 mls/hr CONT PRN IV SEE I/O RECORD; Start at 19:30; Status UNV Heparin Sodium (Porcine) (Heparin Sodium) 2,550 unit PRN Q6HRS PRN IV FOR UFH LEVEL LESS THAN 0.2; Start 07/24/18 at 19:30 Heparin Sodium (Porcine) (Heparin Sodium) 1,300 unit PRN Q6HRS PRN IV FOR UFH LEVEL 0.2 - 0.29 Last administered on 07/25/18at 23:25; Start 07/24/18 at 19:30 Heparin Sodium/ Dextrose 500 ml @ 0 mls/hr CONT PRN IV SEE I/O RECORD Last administered on 07/26/18at 04:14; Start 07/24/18 at 19:45 Sodium Chloride 1,000 ml @ 1,000 mls/hr Q1H PRN IV hypotension; Start 07/25/18 at 08:22; Stop 07/25/18 at 14:21; Status DC Albumin Human 200 ml @ 200 mls/hr 1X ONCE IV Last administered on 07/25/18at 08:49; Start 07/25/18 at 08:30; Stop 07/25/18 at 09:29; Status DC Diphenhydramine HCl (Benadryl) 25 mg 1X PRN PRN IV ITCHING; Start 07/25/18 at 08:30; Stop 07/26/18 at 08:29; Status DC Diphenhydramine HCl (Benadryl) 25 mg 1X PRN PRN IV ITCHING; Start 07/25/18 at 08:30; Stop 07/26/18 at 08:29; Status DC Sodium Chloride 1,000 ml @ 400 mls/hr Q2H30M PRN IV PATENCY; Start 07/25/18 at 08:22; Stop 07/25/18 at 20:21; Status DC Info (PHARMACY MONITORING -- do not chart) 1 each PRN DAILY PRN MC SEE COMMENTS ; Start 07/25/18 at 08:30; Stop 07/26/18 at 14:10; Status DC Piperacillin Sod/ Tazobactam Sod 2.25 gm/Sodium Chloride 50 ml @ 100 mls/hr Q8HRS IV Last administered on 07/26/18at 14:44; Start 07/25/18 at 09:30 Info (Anti-Coagulation Monitoring By Pharmacy) 1 each PRN DAILY PRN MC SEE COMMENTS Last administered on 07/26/18at 14:14; Start 07/25/18 at 11:30 Info (PHARMACY MONITORING -- do not chart) 1 each PRN DAILY PRN MC SEE COMMENTS ; Start 07/26/18 at 08:15 Info (PHARMACY MONITORING -- do not chart) 1 each PRN DAILY PRN MC SEE COMMENTS ; Start 07/26/18 at 08:15; Stop 07/26/18 at 08:17; Status DC Barium Sulfate (Varibar Thin Liquid Apple) 148 gm 1X ONCE PO Last administered on 07/26/18at 13:30; Start 07/26/18 at 13:30; Stop 07/26/18 at 13:31 ; Status DC Active Scripts Active Levemir (Insulin Detemir) 100 Unit/1 Ml Vial 5 Unit SQ QHS 30 Days Hold for < 140mg/dL Aspirin 325 Mg Tablet 1 Tab PO DAILY Reported Amlodipine Besylate 10 Mg Tablet 10 Mg PO DAILY Tylenol (Acetaminophen) 325 Mg Tablet 2 Tab PO PRN Q6HRS PRN Senna (Sennosides) 8.6 Mg Tablet 8.6 Mg PO DAILY Novolog Flexpen (Insulin Aspart) 100 Unit/1 Ml Insuln.pen 1 Unit SQ TIDAC Miralax (Polyethylene Glycol 3350) 17 Gm Powd.pack 1 Packet PO BID Milk Of Magnesia (Magnesium Hydroxide) 400 Mg/5 Ml Oral.susp 30 Ml PO PRN DAILY Duoneb 0.5-3(2.5) Mg/3 Ml (Albuterol/Ipratropium) 3 Ml Ampul.neb 3 Ml NEB TID Fleet Enema (Na Phos,M-B/Na Phos,Di-Ba) 133 Ml Enema 1 Each RC PRN DAILY PRN Dulcolax (Bisacodyl) 10 Mg Supp.rect 10 Mg RC PRN DAILY PRN Docusate Sodium 100 Mg Capsule 1 Cap PO BID Carvedilol (Carvedilol) 12.5 Mg Tablet 12.5 Mg PO BIDWMEALS Protonix (Pantoprazole Sodium) 20 Mg Tablet.dr 40 Mg PO DAILY Voltaren (Diclofenac Sodium) 100 Gm Gel..gram. 1 Gm TP BID Zofran Odt (Ondansetron) 4 Mg Tab.rapdis 4 Mg PO Q6HRS PRN Sensipar (Cinacalcet Hcl) 30 Mg Tablet 1 Tab PO DAILY Renvela (Sevelamer Carbonate) 2.4 Gm Powd.pack 2.4 Gm PO TIDWMEALS Lumigan (Bimatoprost) 2.5 Ml Drops 1 Drop EACHEYE QHS Calcitriol 0.25 Mcg Capsule 1 Cap PO DAILY Nephro-Roland Tablet (Folic Acid/Vitamin B Comp W-C) 0.8 Mg Tablet 1 Tab PO DAILYBFRSUP Vitamin D (Cholecalciferol (Vitamin D3)) 2,000 Unit Capsule 1 Cap PO DAILY Vitals/I & O Vital Sign - Last 24 Hours 07/25/18 07/25/18 07/25/18 07/25/18 16:09 19:00 20:00 20:11 Temp 98.1 98.1 Pulse 76 Resp 17 B/P (MAP) 84/44 (57) Pulse Ox 98 96 95 O2 Delivery Nasal Cannula Room Air Room Air Room Air O2 Flow Rate 0.5 07/25/18 07/26/18 07/26/18 07/26/18 23:00 00:10 00:24 03:00 Temp 98.0 98.0 98.0 98.0 98.0 98.0 Pulse 76 92 94 Resp 14 24 21 B/P (MAP) 86/57 (67) 132/58 (82) 109/54 (72) Pulse Ox 98 98 98 O2 Delivery Room Air Room Air Room Air Room Air 07/26/18 07/26/18 07/26/18 07/26/18 07:00 07:31 08:10 12:32 Temp 98.1 98.1 Pulse 68 Resp 16 B/P (MAP) 150/59 (89) Pulse Ox 95 95 O2 Delivery Room Air Room Air Room Air Room Air 07/26/18 14:43 Pulse 89 B/P (MAP) 126/67 Intake and Output 3/29/19 3/29/19 3/30/19 14:59 22:59 06:59 Intake Total 708.6 ml Output Total 0 ml 0 ml 0 ml Balance 0 ml 708.6 ml 0 ml PARKER MASON MD Jul 26, 2018 15:09
--- NOTE | 2018-07-26 15:14 | NUR ---
Videoswallow evaluation: Please refer to full report for additional details. Impressions: Mild oropharyngeal dysphagia w/ pt demonstrating prolonged chewing and decreased oral transit w/ solids, premature spillage of all consistencies to the vallecula and mild swallow delay. Penetration of thin liquids w/ large drinks via cup, chin tuck and straw drinking were observed. Decreasing bolus size, keeping head in neutral position and alternating or utilizing a dry swallow were all effective strategies. No aspiration was observed during this evaluation. Recommendations: Dysphagia II diet w/ thin liquids, no straws, use swallow strategies (d/w RN, pt and family). Crush meds. ST f/u for dysphagia.
--- NOTE | 2018-07-26 15:38 | PDOC ---
PROGRESS NOTES Subjective Subjective SEEN IN FOLLOW UP OF ESRD Objective Objective Vital Signs Date Time Temp Pulse Resp B/P (MAP) Pulse Ox O2 Delivery O2 Flow Rate FiO2 07/26/18 15:00 98.1 90 16 147/67 (93) 95 Room Air 98.1 07/25/18 16:09 0.5 Intake and Output 07/26/18 06:59 Intake Total 708.6 ml Output Total 0 ml Balance 708.6 ml Intake Oral 0 ml IV Total 708.6 ml Output Urine Total 0 ml # Bowel Movements 1 Physical Exam Abdomen: Normal bowel sounds, Soft, No tenderness, No hepatosplenomegaly, No masses Heart: Regular rate, Normal S1, Normal S2, No murmurs, Gallops Extremities: No clubbing, No cyanosis, No edema, Normal pulses, No tenderness/ swelling General: Alert, Oriented X3, Cooperative, No acute distress Lungs: Clear to auscultation, Normal air movement Psych/Mental Status: Mental status NL, Mood NL Diagnosis RENAL FAILURE: ESRD Assessment Assessment Problems Medical Problems: (1) Congestive heart failure Status: Acute Plan Plan of Care DIALYSIS TODAY AND TOLERATED WELL. ? HOME SOON Comment Review of Relevant I have reviewed the following items smith (where applicable) has been applied. Labs Laboratory Tests Test 07/24/18 17:26 07/24/18 20:36 07/25/18 00:55 07/25/18 05:10 Glucose (Fingerstick) 264 mg/dL (70-99) 236 mg/dL (70-99) White Blood Count 13.3 x10^3/uL (4.0-11.0) 10.2 x10^3/uL (4.0-11.0) Red Blood Count 3.71 x10^6/uL (3.50-5.40) 3.37 x10^6/uL (3.50-5.40) Hemoglobin 12.6 g/dL (12.0-15.5) 11.8 g/dL (12.0-15.5) Hematocrit 38.1 % (36.0-47.0) 34.6 % (36.0-47.0) Mean Corpuscular Volume 103 fL (79-100) 103 fL (79-100) Mean Corpuscular Hemoglobin 34 pg (25-35) 35 pg (25-35) Mean Corpuscular Hemoglobin Concent 33 g/dL (31-37) 34 g/dL (31-37) Red Cell Distribution Width 15.7 % (11.5-14.5) 15.8 % (11.5-14.5) Platelet Count 203 x10^3/uL (140-400) 161 x10^3/uL (140-400) Heparin Anti-Xa Act, Unfractionated 1.07 IU/mL (0.30-0.70) Neutrophils (%) (Auto) 84 % (31-73) Lymphocytes (%) (Auto) 7 % (24-48) Monocytes (%) (Auto) 9 % (0-9) Eosinophils (%) (Auto) 0 % (0-3) Basophils (%) (Auto) 1 % (0-3) Neutrophils # (Auto) 8.5 x10^3uL (1.8-7.7) Lymphocytes # (Auto) 0.7 x10^3/uL (1.0-4.8) Monocytes # (Auto) 0.9 x10^3/uL (0.0-1.1) Eosinophils # (Auto) 0.0 x10^3/uL (0.0-0.7) Basophils # (Auto) 0.1 x10^3/uL (0.0-0.2) Sodium Level 132 mmol/L (136-145) Potassium Level 4.1 mmol/L (3.5-5.1) Chloride Level 94 mmol/L (98-107) Carbon Dioxide Level 26 mmol/L (21-32) Anion Gap 12 (6-14) Blood Urea Nitrogen 53 mg/dL (7-20) Creatinine 3.9 mg/dL (0.6-1.0) Estimated GFR (Cockcroft-Gault) 10.9 Glucose Level 324 mg/dL (70-99) Calcium Level 7.9 mg/dL (8.5-10.1) Phosphorus Level 3.0 mg/dL (2.6-4.7) Magnesium Level 2.6 mg/dL (1.8-2.4) Albumin 2.5 g/dL (3.4-5.0) Test 07/25/18 08:16 07/25/18 13:05 07/25/18 17:24 07/25/18 21:24 Glucose (Fingerstick) 245 mg/dL (70-99) 119 mg/dL (70-99) 152 mg/dL (70-99) 165 mg/dL (70-99) Test 07/25/18 22:00 07/26/18 05:55 07/26/18 08:18 Heparin Anti-Xa Act, Unfractionated 0.20 IU/mL (0.30-0.70) 0.53 IU/mL (0.30-0.70) Sodium Level 133 mmol/L (136-145) Potassium Level 4.2 mmol/L (3.5-5.1) Chloride Level 94 mmol/L (98-107) Carbon Dioxide Level 27 mmol/L (21-32) Anion Gap 12 (6-14) Blood Urea Nitrogen 36 mg/dL (7-20) Creatinine 3.0 mg/dL (0.6-1.0) Estimated GFR (Cockcroft-Gault) 14.8 Glucose Level 268 mg/dL (70-99) Calcium Level 8.1 mg/dL (8.5-10.1) Phosphorus Level 2.7 mg/dL (2.6-4.7) Albumin 3.0 g/dL (3.4-5.0) Glucose (Fingerstick) 285 mg/dL (70-99) Laboratory Tests Test 07/25/18 17:24 07/25/18 21:24 07/25/18 22:00 07/26/18 05:55 Glucose (Fingerstick) 152 mg/dL (70-99) 165 mg/dL (70-99) Heparin Anti-Xa Act, Unfractionated 0.20 IU/mL (0.30-0.70) 0.53 IU/mL (0.30-0.70) Sodium Level 133 mmol/L (136-145) Potassium Level 4.2 mmol/L (3.5-5.1) Chloride Level 94 mmol/L (98-107) Carbon Dioxide Level 27 mmol/L (21-32) Anion Gap 12 (6-14) Blood Urea Nitrogen 36 mg/dL (7-20) Creatinine 3.0 mg/dL (0.6-1.0) Estimated GFR (Cockcroft-Gault) 14.8 Glucose Level 268 mg/dL (70-99) Calcium Level 8.1 mg/dL (8.5-10.1) Phosphorus Level 2.7 mg/dL (2.6-4.7) Albumin 3.0 g/dL (3.4-5.0) Test 07/26/18 08:18 Glucose (Fingerstick) 285 mg/dL (70-99) Medications Current Medications Albuterol/ Ipratropium (Duoneb) 3 ml 1X ONCE NEB Last administered on at 12:57; Start 07/19/18 at 12:45; Stop 07/19/18 at 12:46; Status DC Ondansetron HCl (Zofran) 4 mg PRN Q8HRS PRN IV NAUSEA/VOMITING; Start 07/19/18 at 14:30; Stop 07/20/18 at 14:29; Status DC Acetaminophen (Tylenol) 650 mg PRN Q4HRS PRN PO FEVER; Start 07/19/18 at 14:30 ; Stop 07/20/18 at 08:37; Status DC Nitroglycerin (Nitrostat) 0.4 mg PRN Q5MIN PRN SL CHEST PAIN; Start 07/19/18 at 14:30; Stop 07/20/18 at 14:29; Status DC Albuterol/ Ipratropium (Duoneb) 3 ml RTQID NEB ; Start 07/19/18 at 16:00; Stop 07/20/18 at 15:59; Status Cancel Aspirin (Tracee Aspirin) 325 mg DAILY PO Last administered on 07/24/18at 11:16; Start 07/19/18 at 15:00 Carvedilol (Coreg) 3.125 mg BIDWMEALS PO ; Start 07/19/18 at 17:00; Stop at 19:42; Status DC Cinacalcet (Sensipar) 30 mg DAILY PO Last administered on 07/24/18at 11:16; Start 07/19/18 at 15:00 Diclofenac Sodium (Voltaren) 1 grisel BID TP Last administered on 07/25/18at 21:21 ; Start 07/19/18 at 21:00 Fentanyl (Duragesic 12mcg/ Hr Patch) 1 patch Q3DAYS TD ; Start 07/19/18 at 15:00 ; Stop 07/19/18 at 19:42; Status DC Vitamin B Complex/ Vitamin C (Bela-Roland) 1 tab DAILYBFRSUP PO Last administered on 07/24/18at 11:17; Start 07/19/18 at 17:00 Ondansetron HCl (Zofran Odt) 4 mg PRN Q6HRS PRN PO NAUSEA/VOMITING; Start 07/19 at 14:45 Sevelamer Carbonate (Renvela) 2.4 gm TIDWMEALS PO Last administered on at 17:58; Start 07/19/18 at 17:00 Acetaminophen (Tylenol) 500 mg PRN Q6HRS PRN PO MILD PAIN / TEMP; Start at 14:45 Latanoprost (Xalatan) 1 drop QHS OU Last administered on 07/25/18at 21:21; Start 07/19/18 at 21:00 Calcitriol (Rocaltrol) 0.25 mcg DAILY PO Last administered on 07/24/18 11:17; Start 07/20/18 at 09:00 Vitamin D (Vitamin D3) 1,000 unit DAILY PO Last administered on 07/24/18at 11:16 ; Start 07/20/18 at 09:00 Hydromorphone HCl (Dilaudid) 2 mg PRN Q8HRS PRN PO MODERATE PAIN, SEVERE PAIN; Start 07/19/18 at 15:00; Stop 07/20/18 at 09:31; Status DC Insulin Glargine (Lantus) 5 units QHS SQ Last administered on 07/25/18at 21:34; Start 07/19/18 at 21:00 Non-Formulary Medication (Latanoprost/Pf (Latanoprost 0.005% Eye Drop)) 7.5 ml QHS OP ; Start 07/19/18 at 21:00; Status UNV Pantoprazole Sodium (Protonix) 40 mg DAILYAC PO Last administered on 07/24/18at 11:17; Start 07/20/18 at 07:30 Piperacillin Sod/ Tazobactam Sod (Zosyn Per Pharmacy) 1 each PRN DAILY PRN MC SEE COMMENTS; Start 07/19/18 at 14:45; Stop 07/24/18 at 11:11; Status DC Albuterol/ Ipratropium (Duoneb) 3 ml RTQID NEB Last administered on 07/26/18 12:31; Start 07/19/18 at 16:00 Guaifenesin (Robitussin Dm) 10 ml QID PO Last administered on 07/26/18 14:43; Start 07/19/18 at 17:00 Temazepam (Restoril) 7.5 mg PRN QHS PRN PO INSOMNIA Last administered on at 20:42; Start 07/19/18 at 14:45 Insulin Human Lispro (HumaLOG) 0-7 UNITS TIDWMEALS SQ Last administered on 07/26 08:37; Start 07/19/18 at 17:00 Dextrose (Dextrose 50%-Water Syringe) 12.5 gm PRN Q15MIN PRN IV SEE COMMENTS; Start 07/19/18 at 14:45 Piperacillin Sod/ Tazobactam Sod 2.25 gm/Sodium Chloride 50 ml @ 100 mls/hr Q8H IV Last administered on 07/24/18at 00:10; Start 07/19/18 at 16:00; Stop at 08:08; Status DC Furosemide (Lasix) 40 mg 1X ONCE IVP Last administered on 07/19/18 14:52; Start 07/19/18 at 14:45; Stop 07/19/18 at 14:52; Status DC Docusate Sodium (Colace) 100 mg BID PO Last administered on 07/24/18at 11:17; Start 07/19/18 at 21:00 Magnesium Hydroxide (Milk Of Magnesia) 2,400 mg PRN DAILY PRN PO CONSTIPATION; Start 07/19/18 at 19:45 Sodium Monofluorophosphate (Fleet Adult) 133 ml PRN DAILY PRN RC CONSTIPATION; Start 07/19/18 at 19:45; Stop 07/22/18 at 12:17; Status DC Bisacodyl (Dulcolax Supp) 10 mg PRN DAILY PRN LA CONSTIPATION 1ST CHOICE; Start 07/19/18 at 19:45 Polyethylene Glycol (miraLAX PACKET) 17 gm BID PO Last administered on 08:42; Start 07/19/18 at 21:00 Sennosides (Senna) 8.6 mg DAILY PO Last administered on 07/24/18at 11:16; Start 07/20/18 at 09:00 Lactobacillus Rhamnosus (Culturelle) 1 cap BID PO Last administered on at 11:18; Start 07/20/18 at 21:00 Methylprednisolone Sodium Succinate (SOLU-Medrol 40MG VIAL) 40 mg Q8HRS IV Last administered on 07/26/18at 14:43; Start 07/20/18 at 14:00 Albumin Human 250 ml @ 62.5 mls/hr PRN Q6HRS PRN IV for MAP < 65 Last administered on 07/21/18at 20:45; Start 07/20/18 at 09:45 Magnesium Sulfate 50 ml @ 25 mls/hr PRN DAILY PRN IV for Mag < 1.7 on am labs; Start 07/20/18 at 09:45 Dopamine HCl/ Dextrose 250 ml @ 6.124 mls/ hr CONT PRN IV SEE I/O RECORD Last administered on 07/24/18at 20:37; Start 07/20/18 at 12:00; Stop 07/26/18 at 14:13 ; Status DC Sodium Chloride 1,000 ml @ 1,000 mls/hr Q1H PRN IV hypotension; Start 07/21/18 at 13:00; Stop 07/21/18 at 18:59; Status DC Sodium Chloride 1,000 ml @ 400 mls/hr Q2H30M PRN IV PATENCY; Start 07/21/18 at 13:00; Stop 07/22/18 at 00:59; Status DC Info (PHARMACY MONITORING -- do not chart) 1 each PRN DAILY PRN MC SEE COMMENTS ; Start 07/21/18 at 13:30; Status UNV Info (PHARMACY MONITORING -- do not chart) 1 each PRN DAILY PRN MC SEE COMMENTS ; Start 07/21/18 at 13:30; Stop 07/24/18 at 07:10; Status DC Albumin Human 100 ml @ 100 mls/hr 1X ONCE IV Last administered on 07/21/18at 14:00; Start 07/21/18 at 13:30; Stop 07/21/18 at 14:29; Status DC Sodium Chloride 500 ml @ 500 mls/hr 1X ONCE IV Last administered on at 11:14; Start 07/22/18 at 11:15; Stop 07/22/18 at 12:14; Status DC Digoxin (Lanoxin) 125 mcg QMWF@1600 PO ; Start 07/23/18 at 16:00; Stop 07/23/18 at 16:00; Status DC Digoxin (Lanoxin) 125 mcg 1X ONCE PO Last administered on 07/22/18at 12:26; Start 07/22/18 at 12:00; Stop 07/22/18 at 12:01; Status DC Midodrine (Proamatine) 2.5 mg [id number] PO Last administered on 07/26/18at 14:43; Start 07/22/18 at 13:00 Digoxin (Lanoxin) 125 mcg QTUTHSA PO ; Start 07/24/18 at 16:00 Sodium Chloride 500 ml @ 500 mls/hr 1X ONCE IV Last administered on at 15:42; Start 07/23/18 at 15:00; Stop 07/23/18 at 15:59; Status DC Sodium Chloride 1,000 ml @ 1,000 mls/hr Q1H PRN IV hypotension; Start 07/24/18 at 06:59; Stop 07/24/18 at 12:58; Status DC Albumin Human 200 ml @ 200 mls/hr 1X PRN PRN IV Hypotension Last administered on 07/24/18at 08:09; Start 07/24/18 at 07:00; Stop 07/24/18 at 12:59; Status DC Sodium Chloride 1,000 ml @ 400 mls/hr Q2H30M PRN IV PATENCY; Start 07/24/18 at 06:59; Stop 07/24/18 at 18:58; Status DC Info (PHARMACY MONITORING -- do not chart) 1 each PRN DAILY PRN MC SEE COMMENTS ; Start 07/24/18 at 07:00; Stop 07/25/18 at 11:17; Status DC Info (PHARMACY MONITORING -- do not chart) 1 each PRN DAILY PRN MC SEE COMMENTS ; Start 07/24/18 at 07:00; Status UNV Amoxicillin/ Clavulanate Potassium (Augmentin 500/ 125mg) 1 tab BID PO Last administered on 07/24/18at 11:16; Start 07/24/18 at 09:00; Stop 07/25/18 at 09:21 ; Status DC Amino Acids/ Glycerin/ Electrolytes 1,000 ml @ 50 mls/hr Q20H IV Last administered on 07/26/18at 04:10; Start 07/24/18 at 17:00 Heparin Sodium/ Dextrose 500 ml @ 0 mls/hr CONT PRN IV SEE I/O RECORD; Start at 19:30; Status Cancel Heparin Sodium (Porcine) (Heparin Sodium) 6,850 unit 1X ONCE IV Last administered on 07/24/18at 19:38; Start 07/24/18 at 19:30; Stop 07/24/18 at 19:33 ; Status DC Heparin Sodium/ Dextrose 500 ml @ 0 mls/hr CONT PRN IV SEE I/O RECORD; Start at 19:30; Status UNV Heparin Sodium (Porcine) (Heparin Sodium) 2,550 unit PRN Q6HRS PRN IV FOR UFH LEVEL LESS THAN 0.2; Start 07/24/18 at 19:30 Heparin Sodium (Porcine) (Heparin Sodium) 1,300 unit PRN Q6HRS PRN IV FOR UFH LEVEL 0.2 - 0.29 Last administered on 07/25/18at 23:25; Start 07/24/18 at 19:30 Heparin Sodium/ Dextrose 500 ml @ 0 mls/hr CONT PRN IV SEE I/O RECORD Last administered on 07/26/18at 04:14; Start 07/24/18 at 19:45 Sodium Chloride 1,000 ml @ 1,000 mls/hr Q1H PRN IV hypotension; Start 07/25/18 at 08:22; Stop 07/25/18 at 14:21; Status DC Albumin Human 200 ml @ 200 mls/hr 1X ONCE IV Last administered on 07/25/18at 08:49; Start 07/25/18 at 08:30; Stop 07/25/18 at 09:29; Status DC Diphenhydramine HCl (Benadryl) 25 mg 1X PRN PRN IV ITCHING; Start 07/25/18 at 08:30; Stop 07/26/18 at 08:29; Status DC Diphenhydramine HCl (Benadryl) 25 mg 1X PRN PRN IV ITCHING; Start 07/25/18 at 08:30; Stop 07/26/18 at 08:29; Status DC Sodium Chloride 1,000 ml @ 400 mls/hr Q2H30M PRN IV PATENCY; Start 07/25/18 at 08:22; Stop 07/25/18 at 20:21; Status DC Info (PHARMACY MONITORING -- do not chart) 1 each PRN DAILY PRN MC SEE COMMENTS ; Start 07/25/18 at 08:30; Stop 07/26/18 at 14:10; Status DC Piperacillin Sod/ Tazobactam Sod 2.25 gm/Sodium Chloride 50 ml @ 100 mls/hr Q8HRS IV Last administered on 07/26/18at 14:44; Start 07/25/18 at 09:30 Info (Anti-Coagulation Monitoring By Pharmacy) 1 each PRN DAILY PRN MC SEE COMMENTS Last administered on 07/26/18at 14:14; Start 07/25/18 at 11:30 Info (PHARMACY MONITORING -- do not chart) 1 each PRN DAILY PRN MC SEE COMMENTS ; Start 07/26/18 at 08:15 Info (PHARMACY MONITORING -- do not chart) 1 each PRN DAILY PRN MC SEE COMMENTS ; Start 07/26/18 at 08:15; Stop 07/26/18 at 08:17; Status DC Barium Sulfate (Varibar Thin Liquid Apple) 148 gm 1X ONCE PO Last administered on 07/26/18at 13:30; Start 07/26/18 at 13:30; Stop 07/26/18 at 13:31 ; Status DC Active Scripts Active Levemir (Insulin Detemir) 100 Unit/1 Ml Vial 5 Unit SQ QHS 30 Days Hold for < 140mg/dL Aspirin 325 Mg Tablet 1 Tab PO DAILY Reported Amlodipine Besylate 10 Mg Tablet 10 Mg PO DAILY Tylenol (Acetaminophen) 325 Mg Tablet 2 Tab PO PRN Q6HRS PRN Senna (Sennosides) 8.6 Mg Tablet 8.6 Mg PO DAILY Novolog Flexpen (Insulin Aspart) 100 Unit/1 Ml Insuln.pen 1 Unit SQ TIDAC Miralax (Polyethylene Glycol 3350) 17 Gm Powd.pack 1 Packet PO BID Milk Of Magnesia (Magnesium Hydroxide) 400 Mg/5 Ml Oral.susp 30 Ml PO PRN DAILY Duoneb 0.5-3(2.5) Mg/3 Ml (Albuterol/Ipratropium) 3 Ml Ampul.neb 3 Ml NEB TID Fleet Enema (Na Phos,M-B/Na Phos,Di-Ba) 133 Ml Enema 1 Each RC PRN DAILY PRN Dulcolax (Bisacodyl) 10 Mg Supp.rect 10 Mg RC PRN DAILY PRN Docusate Sodium 100 Mg Capsule 1 Cap PO BID Carvedilol (Carvedilol) 12.5 Mg Tablet 12.5 Mg PO BIDWMEALS Protonix (Pantoprazole Sodium) 20 Mg Tablet.dr 40 Mg PO DAILY Voltaren (Diclofenac Sodium) 100 Gm Gel..gram. 1 Gm TP BID Zofran Odt (Ondansetron) 4 Mg Tab.rapdis 4 Mg PO Q6HRS PRN Sensipar (Cinacalcet Hcl) 30 Mg Tablet 1 Tab PO DAILY Renvela (Sevelamer Carbonate) 2.4 Gm Powd.pack 2.4 Gm PO TIDWMEALS Lumigan (Bimatoprost) 2.5 Ml Drops 1 Drop EACHEYE QHS Calcitriol 0.25 Mcg Capsule 1 Cap PO DAILY Nephro-Roland Tablet (Folic Acid/Vitamin B Comp W-C) 0.8 Mg Tablet 1 Tab PO DAILYBFRSUP Vitamin D (Cholecalciferol (Vitamin D3)) 2,000 Unit Capsule 1 Cap PO DAILY Vitals/I & O Vital Sign - Last 24 Hours 07/25/18 07/25/18 07/25/18 07/25/18 16:09 19:00 20:00 20:11 Temp 98.1 98.1 Pulse 76 Resp 17 B/P (MAP) 84/44 (57) Pulse Ox 98 96 95 O2 Delivery Nasal Cannula Room Air Room Air Room Air O2 Flow Rate 0.5 07/25/18 07/26/18 07/26/18 07/26/18 23:00 00:10 00:24 03:00 Temp 98.0 98.0 98.0 98.0 98.0 98.0 Pulse 76 92 94 Resp 14 24 21 B/P (MAP) 86/57 (67) 132/58 (82) 109/54 (72) Pulse Ox 98 98 98 O2 Delivery Room Air Room Air Room Air Room Air 07/26/18 07/26/18 07/26/18 07/26/18 07:00 07:31 08:10 12:32 Temp 98.1 98.1 Pulse 68 Resp 16 B/P (MAP) 150/59 (89) Pulse Ox 95 95 O2 Delivery Room Air Room Air Room Air Room Air 07/26/18 07/26/18 14:43 15:00 Temp 98.1 98.1 Pulse 89 90 Resp 16 B/P (MAP) 126/67 147/67 (93) Pulse Ox 95 O2 Delivery Room Air Intake and Output 07/25/18 07/25/18 07/26/18 14:59 22:59 06:59 Intake Total 708.6 ml Output Total 0 ml 0 ml 0 ml Balance 0 ml 708.6 ml 0 ml CLYDE MAHONEY MD Jul 26, 2018 15:38
[2018-07-26] MEDS: FOLIC/VIT B COMP W-C (RENAL) TABLET. PO SCH (16:56)
[2018-07-26] MEDS: DIGOXIN 125 MCG TABLET. PO SCH (16:58)
[2018-07-26 19:20] VITALS: BP 127/49
[2018-07-26] MEDS: LATANOPROST 0.005% OPHTH SOLUTION 2.5ML BOTTLE. OU SCH (21:28)
[2018-07-26] MEDS: INSULIN GLARGINE 300 UNITS/3 ML INSULN.PEN. SQ SCH (21:46)
[2018-07-26 23:34] VITALS: BP 118/43
[2018-07-27] MEDS: AMINO AC 3%/ELECTROLYTE/GLYCER 1,000 ML IV SCH ×2 (00:55→20:49)
[2018-07-27] MEDS: HEPARIN 25,000UTS/500ML PREMIX 500 ML IV PRN (00:56)
[2018-07-27 03:00] VITALS: BP 126/57
[2018-07-27] MEDS: methylPREDNISolone SOD SUCC PF 40 MG/ML VIAL. IV SCH ×3 (05:14→20:49)
[2018-07-27] MEDS: PIPERACILLIN/TAZOBACTAM 2.25 GM in IV NORMAL SALINE 50ML 50 ML IV SCH ×3 (05:15→20:50)
[2018-07-27] MEDS: MIDODRINE 2.5 MG TABLET PO SCH ×3 (05:16→17:24)
[2018-07-27 06:30] LABS: CALCIUM 7.9 mg/dL (8.5-10.1); CREATININE 2.4 mg/dL (0.6-1.0); GFR 19.1; PHOSPHORUS 2.7 mg/dL (2.6-4.7); POTASSIUM 4.3 mmol/L (3.5-5.1)
[2018-07-27 07:23] VITALS: BP 141/62
[2018-07-27] MEDS: PANTOPRAZOLE 40 MG TABLET.DR. PO SCH (07:30)
[2018-07-27] MEDS: CINACALCET HCL 30 MG TABLET PO SCH (08:30)
[2018-07-27] MEDS: DOCUSATE SODIUM 100 MG CAPSULE. PO SCH ×2 (08:30→20:53)
[2018-07-27] MEDS: POLYETHYLENE GLYCOL 3350 17 GM PACKET. PO SCH ×2 (08:33→20:53)
[2018-07-27] MEDS: CHOLECALCIFEROL (VITAMIN D3) 1,000 UNIT TABLET PO SCH (08:37)
[2018-07-27] MEDS: guaiFENesin DM 200MG/20MG 10 ML SYRUP PO SCH ×4 (08:38→21:07)
[2018-07-27] MEDS: LACTOBACILLUS RHAMNOSUS GG 1 CAPSULE. PO SCH ×2 (08:38→20:50)
[2018-07-27] MEDS: SEVELAMER CARBONATE 2.4 GM PACKET. PO SCH ×3 (08:38→17:23)
[2018-07-27] MEDS: SENNOSIDES 8.6 MG TABLET PO SCH (08:38)
[2018-07-27] MEDS: ASPIRIN 325 MG TABLET PO SCH (08:38)
[2018-07-27] MEDS: DICLOFENAC SODIUM 1% TOPICAL GEL 100GM TUBE. TP SCH ×2 (08:39→20:52)
[2018-07-27] MEDS: IPRATRPIUM/ALBUTEROL 0.5/2.5MG 3 ML NEBU. NEB SCH ×4 (08:41→20:47)
[2018-07-27] MEDS: INSULIN LISPRO 300 UNITS/3 ML INSULN.PEN. SQ SCH ×5 (08:55→17:34)
[2018-07-27] MEDS: CALCITRIOL 0.25 MCG CAPSULE. PO SCH (09:00)
[2018-07-27 10:13] VITALS: BP 162/72
--- NOTE | 2018-07-27 10:19 | NUR ---
PATIENTS HEPARIN GTT ON HOLD FOR [address] MASON ORDERS DUE TO BLEEDING AT DIALYSIS FISTULA AND IJ SITE. WILL CONTINUE TO MONITOR PATIENT.
--- NOTE | 2018-07-27 10:33 | PDOC ---
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 dysphagia and aspiration . MOD-SEVERE protein-caloric malnutrition try to transfer to LTAC Vitals Vitals Vital Signs Date Time Temp Pulse Resp B/P (MAP) Pulse Ox O2 Delivery O2 Flow Rate FiO2 07/27/18 10:13 98.3 80 20 162/72 (102) 95 Room Air 98.3 Physical Exam Physical Exam GENERAL: Propped up in bed, falls asleep, more lethargic today HEENT: PATRICIA, Oropharynx dry LUNGS: Diminished aeration bases, no wheezes HEART: S1, S2. ABDOMEN: , soft and nontender. EXTREMITIES: No edema, no cyanosis. SKIN: No generalized rash. Chronic skin changes present in both lower extremities. No evidence of infection. Right upper extremity fistula site looks okay. CENTRAL NERVOUS SYSTEM: Alert and oriented. Grossly nonfocal. RIJ (07/25) without signs of any complications General: Alert, Oriented X3, Cooperative, No acute distress Heart: Regular rate, Normal S1, Normal S2, No murmurs, Gallops Lungs: Wheezing, Crackles (less crackles) Abdomen: Normal bowel sounds, Soft, No tenderness, No hepatosplenomegaly, No masses Extremities: No clubbing, No cyanosis, No edema, Normal pulses, No tenderness/ swelling Skin: No rashes, No breakdown, No significant lesion Labs LABS Laboratory Tests Test 07/26/18 17:00 07/26/18 17:13 07/26/18 20:46 07/27/18 05:45 Heparin Anti-Xa Act, Unfractionated 0.67 IU/mL (0.30-0.70) 0.80 IU/mL (0.30-0.70) Glucose (Fingerstick) 286 mg/dL (70-99) 238 mg/dL (70-99) Sodium Level 135 mmol/L (136-145) Potassium Level 4.3 mmol/L (3.5-5.1) Chloride Level 95 mmol/L (98-107) Carbon Dioxide Level 29 mmol/L (21-32) Anion Gap 11 (6-14) Blood Urea Nitrogen 27 mg/dL (7-20) Creatinine 2.4 mg/dL (0.6-1.0) Estimated GFR (Cockcroft-Gault) 19.1 Glucose Level 322 mg/dL (70-99) Calcium Level 7.9 mg/dL (8.5-10.1) Phosphorus Level 2.7 mg/dL (2.6-4.7) Albumin 3.0 g/dL (3.4-5.0) Test 07/27/18 08:05 Glucose (Fingerstick) 286 mg/dL (70-99) Assessment and Plan Assessmemt and Plan Problems Medical Problems: (1) Congestive heart failure Status: Acute Comment Review of Relevant I have reviewed the following items smith (where applicable) has been applied. Labs Laboratory Tests Test 07/25/18 13:05 07/25/18 17:24 07/25/18 21:24 07/25/18 22:00 Glucose (Fingerstick) 119 mg/dL (70-99) 152 mg/dL (70-99) 165 mg/dL (70-99) Heparin Anti-Xa Act, Unfractionated 0.20 IU/mL (0.30-0.70) Test 07/26/18 05:55 07/26/18 08:18 07/26/18 17:00 07/26/18 17:13 Heparin Anti-Xa Act, Unfractionated 0.53 IU/mL (0.30-0.70) 0.67 IU/mL (0.30-0.70) Sodium Level 133 mmol/L (136-145) Potassium Level 4.2 mmol/L (3.5-5.1) Chloride Level 94 mmol/L (98-107) Carbon Dioxide Level 27 mmol/L (21-32) Anion Gap 12 (6-14) Blood Urea Nitrogen 36 mg/dL (7-20) Creatinine 3.0 mg/dL (0.6-1.0) Estimated GFR (Cockcroft-Gault) 14.8 Glucose Level 268 mg/dL (70-99) Calcium Level 8.1 mg/dL (8.5-10.1) Phosphorus Level 2.7 mg/dL (2.6-4.7) Albumin 3.0 g/dL (3.4-5.0) Glucose (Fingerstick) 285 mg/dL (70-99) 286 mg/dL (70-99) Test 07/26/18 20:46 07/27/18 05:45 07/27/18 08:05 Glucose (Fingerstick) 238 mg/dL (70-99) 286 mg/dL (70-99) Heparin Anti-Xa Act, Unfractionated 0.80 IU/mL (0.30-0.70) Sodium Level 135 mmol/L (136-145) Potassium Level 4.3 mmol/L (3.5-5.1) Chloride Level 95 mmol/L (98-107) Carbon Dioxide Level 29 mmol/L (21-32) Anion Gap 11 (6-14) Blood Urea Nitrogen 27 mg/dL (7-20) Creatinine 2.4 mg/dL (0.6-1.0) Estimated GFR (Cockcroft-Gault) 19.1 Glucose Level 322 mg/dL (70-99) Calcium Level 7.9 mg/dL (8.5-10.1) Phosphorus Level 2.7 mg/dL (2.6-4.7) Albumin 3.0 g/dL (3.4-5.0) Laboratory Tests Test 07/26/18 17:00 07/26/18 17:13 07/26/18 20:46 07/27/18 05:45 Heparin Anti-Xa Act, Unfractionated 0.67 IU/mL (0.30-0.70) 0.80 IU/mL (0.30-0.70) Glucose (Fingerstick) 286 mg/dL (70-99) 238 mg/dL (70-99) Sodium Level 135 mmol/L (136-145) Potassium Level 4.3 mmol/L (3.5-5.1) Chloride Level 95 mmol/L (98-107) Carbon Dioxide Level 29 mmol/L (21-32) Anion Gap 11 (6-14) Blood Urea Nitrogen 27 mg/dL (7-20) Creatinine 2.4 mg/dL (0.6-1.0) Estimated GFR (Cockcroft-Gault) 19.1 Glucose Level 322 mg/dL (70-99) Calcium Level 7.9 mg/dL (8.5-10.1) Phosphorus Level 2.7 mg/dL (2.6-4.7) Albumin 3.0 g/dL (3.4-5.0) Test 07/27/18 08:05 Glucose (Fingerstick) 286 mg/dL (70-99) Medications Current Medications Albuterol/ Ipratropium (Duoneb) 3 ml 1X ONCE NEB Last administered on at 12:57; Start 07/19/18 at 12:45; Stop 07/19/18 at 12:46; Status DC Ondansetron HCl (Zofran) 4 mg PRN Q8HRS PRN IV NAUSEA/VOMITING; Start 07/19/18 at 14:30; Stop 07/20/18 at 14:29; Status DC Acetaminophen (Tylenol) 650 mg PRN Q4HRS PRN PO FEVER; Start 07/19/18 at 14:30 ; Stop 07/20/18 at 08:37; Status DC Nitroglycerin (Nitrostat) 0.4 mg PRN Q5MIN PRN SL CHEST PAIN; Start 07/19/18 at 14:30; Stop 07/20/18 at 14:29; Status DC Albuterol/ Ipratropium (Duoneb) 3 ml RTQID NEB ; Start 07/19/18 at 16:00; Stop 07/20/18 at 15:59; Status Cancel Aspirin (Tracee Aspirin) 325 mg DAILY PO Last administered on 07/27/18at 08:38; Start 07/19/18 at 15:00 Carvedilol (Coreg) 3.125 mg BIDWMEALS PO ; Start 07/19/18 at 17:00; Stop at 19:42; Status DC Cinacalcet (Sensipar) 30 mg DAILY PO Last administered on 07/24/18at 11:16; Start 07/19/18 at 15:00 Diclofenac Sodium (Voltaren) 1 grisel BID TP Last administered on 07/27/18at 08:39 ; Start 07/19/18 at 21:00 Fentanyl (Duragesic 12mcg/ Hr Patch) 1 patch Q3DAYS TD ; Start 07/19/18 at 15:00 ; Stop 07/19/18 at 19:42; Status DC Vitamin B Complex/ Vitamin C (Bela-Roland) 1 tab DAILYBFRSUP PO Last administered on 07/26/18at 16:56; Start 07/19/18 at 17:00 Ondansetron HCl (Zofran Odt) 4 mg PRN Q6HRS PRN PO NAUSEA/VOMITING; Start 07/19 at 14:45 Sevelamer Carbonate (Renvela) 2.4 gm TIDWMEALS PO Last administered on 08:38; Start 07/19/18 at 17:00 Acetaminophen (Tylenol) 500 mg PRN Q6HRS PRN PO MILD PAIN / TEMP; Start at 14:45 Latanoprost (Xalatan) 1 drop QHS OU Last administered on 07/26/18 21:28; Start 07/19/18 at 21:00 Calcitriol (Rocaltrol) 0.25 mcg DAILY PO Last administered on 07/24/18 11:17; Start 07/20/18 at 09:00 Vitamin D (Vitamin D3) 1,000 unit DAILY PO Last administered on 07/27/18 08:37 ; Start 07/20/18 at 09:00 Hydromorphone HCl (Dilaudid) 2 mg PRN Q8HRS PRN PO MODERATE PAIN, SEVERE PAIN; Start 07/19/18 at 15:00; Stop 07/20/18 at 09:31; Status DC Insulin Glargine (Lantus) 5 units QHS SQ Last administered on 07/26/18at 21:46; Start 07/19/18 at 21:00; Stop 07/27/18 at 10:00; Status DC Non-Formulary Medication (Latanoprost/Pf (Latanoprost 0.005% Eye Drop)) 7.5 ml QHS OP ; Start 07/19/18 at 21:00; Status UNV Pantoprazole Sodium (Protonix) 40 mg DAILYAC PO Last administered on 07/24/18 11:17; Start 07/20/18 at 07:30; Stop 07/27/18 at 09:10; Status DC Piperacillin Sod/ Tazobactam Sod (Zosyn Per Pharmacy) 1 each PRN DAILY PRN MC SEE COMMENTS; Start 07/19/18 at 14:45; Stop 07/24/18 at 11:11; Status DC Albuterol/ Ipratropium (Duoneb) 3 ml RTQID NEB Last administered on 07/27/18at 08:41; Start 07/19/18 at 16:00 Guaifenesin (Robitussin Dm) 10 ml QID PO Last administered on 07/27/18at 08:38; Start 07/19/18 at 17:00 Temazepam (Restoril) 7.5 mg PRN QHS PRN PO INSOMNIA Last administered on at 20:42; Start 07/19/18 at 14:45 Insulin Human Lispro (HumaLOG) 0-7 UNITS TIDWMEALS SQ Last administered on 07/27at 08:55; Start 07/19/18 at 17:00 Dextrose (Dextrose 50%-Water Syringe) 12.5 gm PRN Q15MIN PRN IV SEE COMMENTS; Start 07/19/18 at 14:45 Piperacillin Sod/ Tazobactam Sod 2.25 gm/Sodium Chloride 50 ml @ 100 mls/hr Q8H IV Last administered on 07/24/18at 00:10; Start 07/19/18 at 16:00; Stop at 08:08; Status DC Furosemide (Lasix) 40 mg 1X ONCE IVP Last administered on 07/19/18at 14:52; Start 07/19/18 at 14:45; Stop 07/19/18 at 14:52; Status DC Docusate Sodium (Colace) 100 mg BID PO Last administered on 07/26/18at 21:29; Start 07/19/18 at 21:00 Magnesium Hydroxide (Milk Of Magnesia) 2,400 mg PRN DAILY PRN PO CONSTIPATION; Start 07/19/18 at 19:45 Sodium Monofluorophosphate (Fleet Adult) 133 ml PRN DAILY PRN RC CONSTIPATION; Start 07/19/18 at 19:45; Stop 07/22/18 at 12:17; Status DC Bisacodyl (Dulcolax Supp) 10 mg PRN DAILY PRN IA CONSTIPATION 1ST CHOICE; Start 07/19/18 at 19:45 Polyethylene Glycol (miraLAX PACKET) 17 gm BID PO Last administered on 21:29; Start 07/19/18 at 21:00 Sennosides (Senna) 8.6 mg DAILY PO Last administered on 07/24/18at 11:16; Start 07/20/18 at 09:00 Lactobacillus Rhamnosus (Culturelle) 1 cap BID PO Last administered on 08:38; Start 07/20/18 at 21:00 Methylprednisolone Sodium Succinate (SOLU-Medrol 40MG VIAL) 40 mg Q8HRS IV Last administered on 07/27/18at 05:14; Start 07/20/18 at 14:00 Albumin Human 250 ml @ 62.5 mls/hr PRN Q6HRS PRN IV for MAP < 65 Last administered on 07/21/18at 20:45; Start 07/20/18 at 09:45 Magnesium Sulfate 50 ml @ 25 mls/hr PRN DAILY PRN IV for Mag < 1.7 on am labs; Start 07/20/18 at 09:45 Dopamine HCl/ Dextrose 250 ml @ 6.124 mls/ hr CONT PRN IV SEE I/O RECORD Last administered on 07/24/18at 20:37; Start 07/20/18 at 12:00; Stop 07/26/18 at 14:13 ; Status DC Sodium Chloride 1,000 ml @ 1,000 mls/hr Q1H PRN IV hypotension; Start 07/21/18 at 13:00; Stop 07/21/18 at 18:59; Status DC Sodium Chloride 1,000 ml @ 400 mls/hr Q2H30M PRN IV PATENCY; Start 07/21/18 at 13:00; Stop 07/22/18 at 00:59; Status DC Info (PHARMACY MONITORING -- do not chart) 1 each PRN DAILY PRN MC SEE COMMENTS ; Start 07/21/18 at 13:30; Status UNV Info (PHARMACY MONITORING -- do not chart) 1 each PRN DAILY PRN MC SEE COMMENTS ; Start 07/21/18 at 13:30; Stop 07/24/18 at 07:10; Status DC Albumin Human 100 ml @ 100 mls/hr 1X ONCE IV Last administered on 07/21/18at 14:00; Start 07/21/18 at 13:30; Stop 07/21/18 at 14:29; Status DC Sodium Chloride 500 ml @ 500 mls/hr 1X ONCE IV Last administered on at 11:14; Start 07/22/18 at 11:15; Stop 07/22/18 at 12:14; Status DC Digoxin (Lanoxin) 125 mcg QMWF@1600 PO ; Start 07/23/18 at 16:00; Stop 07/23/18 at 16:00; Status DC Digoxin (Lanoxin) 125 mcg 1X ONCE PO Last administered on 07/22/18at 12:26; Start 07/22/18 at 12:00; Stop 07/22/18 at 12:01; Status DC Midodrine (Proamatine) 2.5 mg [id number] PO Last administered on 07/27/18at 05:16; Start 07/22/18 at 13:00 Digoxin (Lanoxin) 125 mcg QTUTHSA PO Last administered on 07/26/18at 16:58; Start 07/24/18 at 16:00 Sodium Chloride 500 ml @ 500 mls/hr 1X ONCE IV Last administered on at 15:42; Start 07/23/18 at 15:00; Stop 07/23/18 at 15:59; Status DC Sodium Chloride 1,000 ml @ 1,000 mls/hr Q1H PRN IV hypotension; Start 07/24/18 at 06:59; Stop 07/24/18 at 12:58; Status DC Albumin Human 200 ml @ 200 mls/hr 1X PRN PRN IV Hypotension Last administered on 07/24/18at 08:09; Start 07/24/18 at 07:00; Stop 07/24/18 at 12:59; Status DC Sodium Chloride 1,000 ml @ 400 mls/hr Q2H30M PRN IV PATENCY; Start 07/24/18 at 06:59; Stop 07/24/18 at 18:58; Status DC Info (PHARMACY MONITORING -- do not chart) 1 each PRN DAILY PRN MC SEE COMMENTS ; Start 07/24/18 at 07:00; Stop 07/25/18 at 11:17; Status DC Info (PHARMACY MONITORING -- do not chart) 1 each PRN DAILY PRN MC SEE COMMENTS ; Start 07/24/18 at 07:00; Status UNV Amoxicillin/ Clavulanate Potassium (Augmentin 500/ 125mg) 1 tab BID PO Last administered on 07/24/18at 11:16; Start 07/24/18 at 09:00; Stop 07/25/18 at 09:21 ; Status DC Amino Acids/ Glycerin/ Electrolytes 1,000 ml @ 50 mls/hr Q20H IV Last administered on 07/27/18at 00:55; Start 07/24/18 at 17:00 Heparin Sodium/ Dextrose 500 ml @ 0 mls/hr CONT PRN IV SEE I/O RECORD; Start at 19:30; Status Cancel Heparin Sodium (Porcine) (Heparin Sodium) 6,850 unit 1X ONCE IV Last administered on 07/24/18at 19:38; Start 07/24/18 at 19:30; Stop 07/24/18 at 19:33 ; Status DC Heparin Sodium/ Dextrose 500 ml @ 0 mls/hr CONT PRN IV SEE I/O RECORD; Start at 19:30; Status UNV Heparin Sodium (Porcine) (Heparin Sodium) 2,550 unit PRN Q6HRS PRN IV FOR UFH LEVEL LESS THAN 0.2; Start 07/24/18 at 19:30 Heparin Sodium (Porcine) (Heparin Sodium) 1,300 unit PRN Q6HRS PRN IV FOR UFH LEVEL 0.2 - 0.29 Last administered on 07/25/18at 23:25; Start 07/24/18 at 19:30 Heparin Sodium/ Dextrose 500 ml @ 0 mls/hr CONT PRN IV SEE I/O RECORD Last administered on 07/27/18at 00:56; Start 07/24/18 at 19:45 Sodium Chloride 1,000 ml @ 1,000 mls/hr Q1H PRN IV hypotension; Start 07/25/18 at 08:22; Stop 07/25/18 at 14:21; Status DC Albumin Human 200 ml @ 200 mls/hr 1X ONCE IV Last administered on 07/25/18at 08:49; Start 07/25/18 at 08:30; Stop 07/25/18 at 09:29; Status DC Diphenhydramine HCl (Benadryl) 25 mg 1X PRN PRN IV ITCHING; Start 07/25/18 at 08:30; Stop 07/26/18 at 08:29; Status DC Diphenhydramine HCl (Benadryl) 25 mg 1X PRN PRN IV ITCHING; Start 07/25/18 at 08:30; Stop 07/26/18 at 08:29; Status DC Sodium Chloride 1,000 ml @ 400 mls/hr Q2H30M PRN IV PATENCY; Start 07/25/18 at 08:22; Stop 07/25/18 at 20:21; Status DC Info (PHARMACY MONITORING -- do not chart) 1 each PRN DAILY PRN MC SEE COMMENTS ; Start 07/25/18 at 08:30; Stop 07/26/18 at 14:10; Status DC Piperacillin Sod/ Tazobactam Sod 2.25 gm/Sodium Chloride 50 ml @ 100 mls/hr Q8HRS IV Last administered on 07/27/18at 05:15; Start 07/25/18 at 09:30 Info (Anti-Coagulation Monitoring By Pharmacy) 1 each PRN DAILY PRN MC SEE COMMENTS Last administered on 07/26/18at 14:14; Start 07/25/18 at 11:30 Info (PHARMACY MONITORING -- do not chart) 1 each PRN DAILY PRN MC SEE COMMENTS ; Start 07/26/18 at 08:15 Info (PHARMACY MONITORING -- do not chart) 1 each PRN DAILY PRN MC SEE COMMENTS ; Start 07/26/18 at 08:15; Stop 07/26/18 at 08:17; Status DC Barium Sulfate (Varibar Thin Liquid Apple) 148 gm 1X ONCE PO Last administered on 07/26/18at 13:30; Start 07/26/18 at 13:30; Stop 07/26/18 at 13:31 ; Status DC Pantoprazole Sodium (PROTONIX VIAL for IV PUSH) 40 mg DAILYAC IVP ; Start at 11:30 Insulin Glargine (Lantus) 9 units QHS SQ ; Start 07/27/18 at 21:00 Insulin Human Lispro (HumaLOG) 4 units TIDWMEALS SQ ; Start 07/27/18 at 12:00 Active Scripts Active Levemir (Insulin Detemir) 100 Unit/1 Ml Vial 5 Unit SQ QHS 30 Days Hold for < 140mg/dL Aspirin 325 Mg Tablet 1 Tab PO DAILY Reported Amlodipine Besylate 10 Mg Tablet 10 Mg PO DAILY Tylenol (Acetaminophen) 325 Mg Tablet 2 Tab PO PRN Q6HRS PRN Senna (Sennosides) 8.6 Mg Tablet 8.6 Mg PO DAILY Novolog Flexpen (Insulin Aspart) 100 Unit/1 Ml Insuln.pen 1 Unit SQ TIDAC Miralax (Polyethylene Glycol 3350) 17 Gm Powd.pack 1 Packet PO BID Milk Of Magnesia (Magnesium Hydroxide) 400 Mg/5 Ml Oral.susp 30 Ml PO PRN DAILY Duoneb 0.5-3(2.5) Mg/3 Ml (Albuterol/Ipratropium) 3 Ml Ampul.neb 3 Ml NEB TID Fleet Enema (Na Phos,M-B/Na Phos,Di-Ba) 133 Ml Enema 1 Each RC PRN DAILY PRN Dulcolax (Bisacodyl) 10 Mg Supp.rect 10 Mg RC PRN DAILY PRN Docusate Sodium 100 Mg Capsule 1 Cap PO BID Carvedilol (Carvedilol) 12.5 Mg Tablet 12.5 Mg PO BIDWMEALS Protonix (Pantoprazole Sodium) 20 Mg Tablet.dr 40 Mg PO DAILY Voltaren (Diclofenac Sodium) 100 Gm Gel..gram. 1 Gm TP BID Zofran Odt (Ondansetron) 4 Mg Tab.rapdis 4 Mg PO Q6HRS PRN Sensipar (Cinacalcet Hcl) 30 Mg Tablet 1 Tab PO DAILY Renvela (Sevelamer Carbonate) 2.4 Gm Powd.pack 2.4 Gm PO TIDWMEALS Lumigan (Bimatoprost) 2.5 Ml Drops 1 Drop EACHEYE QHS Calcitriol 0.25 Mcg Capsule 1 Cap PO DAILY Nephro-Roland Tablet (Folic Acid/Vitamin B Comp W-C) 0.8 Mg Tablet 1 Tab PO DAILYBFRSUP Vitamin D (Cholecalciferol (Vitamin D3)) 2,000 Unit Capsule 1 Cap PO DAILY Vitals/I & O Vital Sign - Last 24 Hours 07/26/18 07/26/18 07/26/18 07/26/18 12:32 14:43 15:00 16:58 Temp 98.1 98.1 Pulse 89 90 83 Resp 16 B/P (MAP) 126/67 147/67 (93) 145/70 Pulse Ox 95 O2 Delivery Room Air Room Air 07/26/18 07/26/18 07/26/18 07/26/18 17:03 17:23 19:20 19:45 Temp 97.8 97.8 Pulse 85 79 Resp 17 B/P (MAP) 145/70 127/49 (75) Pulse Ox 95 95 O2 Delivery Room Air Room Air Room Air 07/26/18 07/26/18 07/27/18 07/27/18 19:54 23:34 03:00 05:16 Temp 97.9 98.0 97.9 98.0 Pulse 82 84 70 Resp 21 17 B/P (MAP) 118/43 (68) 126/57 (80) 126/57 Pulse Ox 94 97 O2 Delivery Room Air Room Air Room Air 07/27/18 07/27/18 07/27/18 07/27/18 07:23 07:40 08:42 10:13 Temp 98.1 98.3 98.1 98.3 Pulse 70 80 Resp 17 20 B/P (MAP) 141/62 (88) 162/72 (102) Pulse Ox 97 97 95 O2 Delivery Room Air Room Air Room Air Room Air Intake and Output 07/26/18 07/26/18 07/27/18 15:00 23:00 07:00 Intake Total 100 ml 60 ml Balance 100 ml 60 ml PARKER MASON MD Jul 27, 2018 10:33
--- NOTE | 2018-07-27 10:49 | PDOC ---
Infectious Disease Note Subjective Subjective Not very verbal this morning AVF bleeding No fevers reported Vital Sign Vital Signs Vital Signs Date Time Temp Pulse Resp B/P (MAP) Pulse Ox O2 Delivery O2 Flow Rate FiO2 07/27/18 10:13 98.3 80 20 162/72 (102) 95 Room Air 98.3 Physical Exam PHYSICAL EXAM GENERAL: Propped up in bed, awake, quiet HEENT: Oropharynx dry LUNGS: Mild congestion, right HEART: S1, S2. ABDOMEN: , soft and nontender. EXTREMITIES: No edema, no cyanosis. SKIN: No generalized rash. Chronic skin changes present in both lower extremities. 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 RIJ (07/25) without signs of any complications AVF bandaged/bleeding Labs Lab Laboratory Tests Test 07/26/18 17:00 07/26/18 17:13 07/26/18 20:46 07/27/18 05:45 Heparin Anti-Xa Act, Unfractionated 0.67 IU/mL (0.30-0.70) 0.80 IU/mL (0.30-0.70) Glucose (Fingerstick) 286 mg/dL (70-99) 238 mg/dL (70-99) Sodium Level 135 mmol/L (136-145) Potassium Level 4.3 mmol/L (3.5-5.1) Chloride Level 95 mmol/L (98-107) Carbon Dioxide Level 29 mmol/L (21-32) Anion Gap 11 (6-14) Blood Urea Nitrogen 27 mg/dL (7-20) Creatinine 2.4 mg/dL (0.6-1.0) Estimated GFR (Cockcroft-Gault) 19.1 Glucose Level 322 mg/dL (70-99) Calcium Level 7.9 mg/dL (8.5-10.1) Phosphorus Level 2.7 mg/dL (2.6-4.7) Albumin 3.0 g/dL (3.4-5.0) Test 07/27/18 08:05 Glucose (Fingerstick) 286 mg/dL (70-99) Objective Assessment Dyspnea with cough and bronchospasm with recent viral pneumonia with possible secondary infection, also had high BNP. Passed her swallow study Hypotensive during dialysis. Leukocytosis, on steroids.- better End-stage renal disease, on hemodialysis. AVF bleeding Obesity. Chronic hypoxic respiratory failure, on home O2 at 2 liters. Anemia of chronic kidney disease. ? aspiration Plan Plan of Care Zosyn since 07/19, wean soon Elevate LUE Supportive care f/u am labs Supportive care D/w nursing D/w MOISES Pacheco APRN Jul 27, 2018 10:49
[2018-07-27] MEDS: PANTOPRAZOLE IV PUSH 40 MG VIAL. IVP SCH (12:21)
--- NOTE | 2018-07-27 12:28 | PDOC ---
PULMONARY PROGRESS NOTES Subjective NOT MORE SOA Vitals Vital Signs Date Time Temp Pulse Resp B/P (MAP) Pulse Ox O2 Delivery O2 Flow Rate FiO2 07/27/18 12:21 80 162/72 07/27/18 12:20 96 Room Air 07/27/18 10:13 98.3 20 98.3 ROS: No Nausea, No Chest Pain, No Abdominal Pain, No Increase Cough General: Alert, No acute distress Lungs: Wheezing, Crackles (less crackles) Cardiovascular: S1, S2 Abdomen: Soft Neuro Exam: Alert Extremities: Other (EDEMA L) Skin: Warm Labs Laboratory Tests Test 07/25/18 13:05 07/25/18 17:24 07/25/18 21:24 07/25/18 22:00 Glucose (Fingerstick) 119 mg/dL (70-99) 152 mg/dL (70-99) 165 mg/dL (70-99) Heparin Anti-Xa Act, Unfractionated 0.20 IU/mL (0.30-0.70) Test 07/26/18 05:55 07/26/18 08:18 07/26/18 17:00 07/26/18 17:13 Heparin Anti-Xa Act, Unfractionated 0.53 IU/mL (0.30-0.70) 0.67 IU/mL (0.30-0.70) Sodium Level 133 mmol/L (136-145) Potassium Level 4.2 mmol/L (3.5-5.1) Chloride Level 94 mmol/L (98-107) Carbon Dioxide Level 27 mmol/L (21-32) Anion Gap 12 (6-14) Blood Urea Nitrogen 36 mg/dL (7-20) Creatinine 3.0 mg/dL (0.6-1.0) Estimated GFR (Cockcroft-Gault) 14.8 Glucose Level 268 mg/dL (70-99) Calcium Level 8.1 mg/dL (8.5-10.1) Phosphorus Level 2.7 mg/dL (2.6-4.7) Albumin 3.0 g/dL (3.4-5.0) Glucose (Fingerstick) 285 mg/dL (70-99) 286 mg/dL (70-99) Test 07/26/18 20:46 07/27/18 05:45 07/27/18 08:05 07/27/18 12:09 Glucose (Fingerstick) 238 mg/dL (70-99) 286 mg/dL (70-99) 302 mg/dL (70-99) Heparin Anti-Xa Act, Unfractionated 0.80 IU/mL (0.30-0.70) Sodium Level 135 mmol/L (136-145) Potassium Level 4.3 mmol/L (3.5-5.1) Chloride Level 95 mmol/L (98-107) Carbon Dioxide Level 29 mmol/L (21-32) Anion Gap 11 (6-14) Blood Urea Nitrogen 27 mg/dL (7-20) Creatinine 2.4 mg/dL (0.6-1.0) Estimated GFR (Cockcroft-Gault) 19.1 Glucose Level 322 mg/dL (70-99) Calcium Level 7.9 mg/dL (8.5-10.1) Phosphorus Level 2.7 mg/dL (2.6-4.7) Albumin 3.0 g/dL (3.4-5.0) Laboratory Tests Test 07/26/18 17:00 07/26/18 17:13 07/26/18 20:46 07/27/18 05:45 Heparin Anti-Xa Act, Unfractionated 0.67 IU/mL (0.30-0.70) 0.80 IU/mL (0.30-0.70) Glucose (Fingerstick) 286 mg/dL (70-99) 238 mg/dL (70-99) Sodium Level 135 mmol/L (136-145) Potassium Level 4.3 mmol/L (3.5-5.1) Chloride Level 95 mmol/L (98-107) Carbon Dioxide Level 29 mmol/L (21-32) Anion Gap 11 (6-14) Blood Urea Nitrogen 27 mg/dL (7-20) Creatinine 2.4 mg/dL (0.6-1.0) Estimated GFR (Cockcroft-Gault) 19.1 Glucose Level 322 mg/dL (70-99) Calcium Level 7.9 mg/dL (8.5-10.1) Phosphorus Level 2.7 mg/dL (2.6-4.7) Albumin 3.0 g/dL (3.4-5.0) Test 07/27/18 08:05 07/27/18 12:09 Glucose (Fingerstick) 286 mg/dL (70-99) 302 mg/dL (70-99) Medications Active Scripts Medications Dose Route/Sig Max Daily Dose Days Date Category Dose Instructions Senna (Sennosides) 8.6 Mg Tablet 8.6 Mg PO DAILY 07/19/18 Reported Novolog Flexpen (Insulin Aspart) 100 Unit/1 Ml Insuln.pen 1 Unit SQ TIDAC 07/19/18 Reported Miralax (Polyethylene Glycol 3350) 17 Gm Powd.pack 1 Packet PO BID 07/19/18 Reported Milk Of Magnesia (Magnesium Hydroxide) 400 Mg/5 Ml Oral.susp 30 Ml PO PRN DAILY 07/19/18 Reported Duoneb 0.5-3(2.5) Mg/3 Ml (Albuterol/Ipratropium) 3 Ml Ampul.neb 3 Ml NEB TID 07/19/18 Reported Fleet Enema (Na Phos,M-B/Na Phos,Di-Ba) 133 Ml Enema 1 Each RC PRN DAILY PRN 07/19/18 Reported Dulcolax (Bisacodyl) 10 Mg Supp.rect 10 Mg RC PRN DAILY PRN 07/19/18 Reported Docusate Sodium 100 Mg Capsule 1 Cap PO BID 07/19/18 Reported Carvedilol (Carvedilol) 12.5 Mg Tablet 12.5 Mg PO BIDWMEALS 07/19/18 Reported Levemir (Insulin Detemir) 100 Unit/1 Ml Vial 5 Unit SQ QHS 30 07/15/18 Rx Hold for < 140mg/dL Acetaminophen 500 Mg Tablet 500 Mg PO PRN Q6HRS PRN 30 07/14/18 Rx Aspirin 325 Mg Tablet 1 Tab PO DAILY 04/16/18 Rx Protonix (Pantoprazole Sodium) 20 Mg Tablet.dr 40 Mg PO DAILY 11/06/17 Reported Voltaren (Diclofenac Sodium) 100 Gm Gel..gram. 1 Gm TP BID 11/06/17 Reported Zofran Odt (Ondansetron) 4 Mg Tab.rapdis 4 Mg PO Q6HRS PRN 10/30/17 Reported Sensipar (Cinacalcet Hcl) 30 Mg Tablet 1 Tab PO DAILY 02/04/17 Reported Renvela (Sevelamer Carbonate) 2.4 Gm Powd.pack 2.4 Gm PO TIDWMEALS 02/04/17 Reported Lumigan (Bimatoprost) 2.5 Ml Drops 1 Drop EACHEYE QHS 02/04/17 Reported Calcitriol 0.25 Mcg Capsule 1 Cap PO DAILY 01/18/17 Reported Nephro-Roland Tablet (Folic Acid/Vitamin B Comp W-C) 0.8 Mg Tablet 1 Tab PO DAILYBFRSUP 11/26/15 Reported Vitamin D (Cholecalciferol (Vitamin D3)) 2,000 Unit Capsule 1 Cap PO DAILY 11/26/15 Reported Impression . IMPRESSION: 1. Dyspnea with cough and mild bronchospasm, likely related to viral pneumonitis, triggering bronchospasm. She may have adult onset reactive airway disease. 2. Recent abnormal CT chest on 07/11 suggesting upper lobe viral pneumonitis. She has some ground glass infiltrates at that time. 3. End-stage renal disease, on hemodialysis. 4. Underlying obesity. 5. Chronic hypoxic respiratory failure, on home oxygen 2 liters. 6 HYPOTENSION IMPROVED 7. LEONIE EXT BRACHIAL CLOT SEE BELOW PICC REMOVED 07/25 CENTRAL LINE 07/25 Impression: Successful ultrasound-guided placement of right internal jugular triple-lumen central venous catheter Plan . RESP STATUS IMPROVING CONTINUE THE SAME STARTED ON HEPARIN FOR BRACHIAL CLOT AGREE WITH DR CALERO PALLIATIVE CARE WOULD BE APPROPRIATE FOR THIS PATIENT JULIANE MILLER MD Jul 27, 2018 12:28
[2018-07-27] MEDS: ANTI-COAG MONITOR BY PHARMACY. MC PRN (13:16)
[2018-07-27 14:40] VITALS: BP 140/63
[2018-07-27 14:52] LABS: BASO # 0.1 x10^3/uL (0.0-0.2); BASO % 1 % (0-3); EOS % 0 % (0-3); HEMATOCRIT 32.7 % (36.0-47.0); HEMOGLOBIN 10.7 g/dL (12.0-15.5); LYMPH # 1.1 x10^3/uL (1.0-4.8); LYMPH % 8 % (24-48); MEAN CORPUSCULAR HEMOGLOBIN 34 pg (25-35); MEAN CORPUSCULAR HGB CONC 33 g/dL (31-37); MEAN CORPUSCULAR VOLUME 104 fL (79-100); MONO # 0.5 x10^3/uL (0.0-1.1); MONO % 4 % (0-9); NEUT # 12.8 x10^3uL (1.8-7.7); NEUT % 88 % (31-73); PLATELET COUNT 170 x10^3/uL (140-400); RED BLOOD COUNT 3.15 x10^6/uL (3.50-5.40); RED CELL DISTRIBUTION WIDTH 15.7 % (11.5-14.5); WHITE BLOOD COUNT 14.5 x10^3/uL (4.0-11.0)
[2018-07-27] MEDS: FOLIC/VIT B COMP W-C (RENAL) TABLET. PO SCH (17:23)
[2018-07-27 19:50] VITALS: BP 126/59
[2018-07-27] MEDS: LATANOPROST 0.005% OPHTH SOLUTION 2.5ML BOTTLE. OU SCH (20:50)
[2018-07-27] MEDS ORDERED: INSULIN GLARGINE 300 UNITS/3 ML INSULN.PEN. SQ SCH (21:00)
[2018-07-27 23:27] VITALS: BP 143/61
[2018-07-28 03:27] VITALS: BP 120/55
[2018-07-28] MEDS: methylPREDNISolone SOD SUCC PF 40 MG/ML VIAL. IV SCH ×3 (05:07→21:15)
[2018-07-28] MEDS: PIPERACILLIN/TAZOBACTAM 2.25 GM in IV NORMAL SALINE 50ML 50 ML IV SCH (05:07)
[2018-07-28] MEDS: MIDODRINE 2.5 MG TABLET PO SCH ×3 (05:10→18:00)
[2018-07-28] MEDS: HEPARIN 25,000UTS/500ML PREMIX 500 ML IV PRN (05:11)
[2018-07-28 05:35] LABS: BASO # 0.1 x10^3/uL (0.0-0.2); BASO % 0 % (0-3); EOS % 0 % (0-3); HEMATOCRIT 32.4 % (36.0-47.0); HEMOGLOBIN 10.6 g/dL (12.0-15.5); LYMPH # 0.9 x10^3/uL (1.0-4.8); LYMPH % 5 % (24-48); MEAN CORPUSCULAR HEMOGLOBIN 34 pg (25-35); MEAN CORPUSCULAR HGB CONC 33 g/dL (31-37); MEAN CORPUSCULAR VOLUME 104 fL (79-100); MONO # 0.6 x10^3/uL (0.0-1.1); MONO % 3 % (0-9); NEUT # 16.3 x10^3uL (1.8-7.7); NEUT % 91 % (31-73); PLATELET COUNT 160 x10^3/uL (140-400); RED BLOOD COUNT 3.11 x10^6/uL (3.50-5.40); RED CELL DISTRIBUTION WIDTH 16.2 % (11.5-14.5); WHITE BLOOD COUNT 17.9 x10^3/uL (4.0-11.0)
[2018-07-28 05:56] LABS: ALBUMIN 2.7 g/dL (3.4-5.0); ALBUMIN/GLOBULIN RATIO 0.9 (1.0-1.7); CALCIUM 7.9 mg/dL (8.5-10.1); CREATININE 3.2 mg/dL (0.6-1.0); GFR 13.7; POTASSIUM 4.6 mmol/L (3.5-5.1); TOTAL BILIRUBIN 1.2 mg/dL (0.2-1.0); TOTAL PROTEIN 5.7 g/dL (6.4-8.2)
[2018-07-28 06:16] LABS: PARTIAL THROMBOPLASTIN TIME > 150 SEC (24-38)
[2018-07-28 07:25] VITALS: BP 118/49
[2018-07-28] MEDS: PANTOPRAZOLE IV PUSH 40 MG VIAL. IVP SCH (07:54)
[2018-07-28] MEDS: IPRATRPIUM/ALBUTEROL 0.5/2.5MG 3 ML NEBU. NEB SCH ×4 (08:12→19:28)
[2018-07-28] MEDS: SEVELAMER CARBONATE 2.4 GM PACKET. PO SCH ×3 (08:51→17:19)
[2018-07-28] MEDS: FOLIC/VIT B COMP W-C (RENAL) TABLET. PO SCH (08:53)
[2018-07-28] MEDS: LACTOBACILLUS RHAMNOSUS GG 1 CAPSULE. PO SCH ×2 (08:53→21:15)
[2018-07-28] MEDS: ASPIRIN 325 MG TABLET PO SCH (08:53)
[2018-07-28] MEDS: CALCITRIOL 0.25 MCG CAPSULE. PO SCH (08:53)
[2018-07-28] MEDS: CHOLECALCIFEROL (VITAMIN D3) 1,000 UNIT TABLET PO SCH (08:54)
[2018-07-28] MEDS: guaiFENesin DM 200MG/20MG 10 ML SYRUP PO SCH ×4 (08:55→21:15)
[2018-07-28] MEDS: DICLOFENAC SODIUM 1% TOPICAL GEL 100GM TUBE. TP SCH ×2 (08:58→21:14)
[2018-07-28] MEDS: POLYETHYLENE GLYCOL 3350 17 GM PACKET. PO SCH ×2 (09:00→21:00)
[2018-07-28] MEDS: SENNOSIDES 8.6 MG TABLET PO SCH (09:00)
[2018-07-28] MEDS: DOCUSATE SODIUM 100 MG CAPSULE. PO SCH ×2 (09:01→21:15)
[2018-07-28] MEDS: CINACALCET HCL 30 MG TABLET PO SCH (09:01)
--- NOTE | 2018-07-28 09:01 | PDOC ---
PULMONARY PROGRESS NOTES Subjective NOT MORE SOA Vitals Vital Signs Date Time Temp Pulse Resp B/P (MAP) Pulse Ox O2 Delivery O2 Flow Rate FiO2 07/28/18 08:11 97 Room Air 07/28/18 07:25 97.3 78 18 118/49 (72) 97.3 ROS: No Nausea, No Chest Pain, No Abdominal Pain, No Increase Cough General: Alert, No acute distress Lungs: Wheezing, Crackles (less crackles) Cardiovascular: S1, S2 Abdomen: Soft Neuro Exam: Alert Extremities: Other (EDEMA L) Skin: Warm Labs Laboratory Tests Test 07/26/18 17:00 07/26/18 17:13 07/26/18 20:46 07/27/18 05:45 Heparin Anti-Xa Act, Unfractionated 0.67 IU/mL (0.30-0.70) 0.80 IU/mL (0.30-0.70) Glucose (Fingerstick) 286 mg/dL (70-99) 238 mg/dL (70-99) Sodium Level 135 mmol/L (136-145) Potassium Level 4.3 mmol/L (3.5-5.1) Chloride Level 95 mmol/L (98-107) Carbon Dioxide Level 29 mmol/L (21-32) Anion Gap 11 (6-14) Blood Urea Nitrogen 27 mg/dL (7-20) Creatinine 2.4 mg/dL (0.6-1.0) Estimated GFR (Cockcroft-Gault) 19.1 Glucose Level 322 mg/dL (70-99) Calcium Level 7.9 mg/dL (8.5-10.1) Phosphorus Level 2.7 mg/dL (2.6-4.7) Albumin 3.0 g/dL (3.4-5.0) Test 07/27/18 08:05 07/27/18 12:09 07/27/18 14:45 07/27/18 17:16 Glucose (Fingerstick) 286 mg/dL (70-99) 302 mg/dL (70-99) 336 mg/dL (70-99) White Blood Count 14.5 x10^3/uL (4.0-11.0) Red Blood Count 3.15 x10^6/uL (3.50-5.40) Hemoglobin 10.7 g/dL (12.0-15.5) Hematocrit 32.7 % (36.0-47.0) Mean Corpuscular Volume 104 fL (79-100) Mean Corpuscular Hemoglobin 34 pg (25-35) Mean Corpuscular Hemoglobin Concent 33 g/dL (31-37) Red Cell Distribution Width 15.7 % (11.5-14.5) Platelet Count 170 x10^3/uL (140-400) Neutrophils (%) (Auto) 88 % (31-73) Lymphocytes (%) (Auto) 8 % (24-48) Monocytes (%) (Auto) 4 % (0-9) Eosinophils (%) (Auto) 0 % (0-3) Basophils (%) (Auto) 1 % (0-3) Neutrophils # (Auto) 12.8 x10^3uL (1.8-7.7) Lymphocytes # (Auto) 1.1 x10^3/uL (1.0-4.8) Monocytes # (Auto) 0.5 x10^3/uL (0.0-1.1) Eosinophils # (Auto) 0.0 x10^3/uL (0.0-0.7) Basophils # (Auto) 0.1 x10^3/uL (0.0-0.2) Test 07/27/18 20:47 07/28/18 00:01 07/28/18 05:00 07/28/18 07:03 Glucose (Fingerstick) 311 mg/dL (70-99) 344 mg/dL (70-99) Heparin Anti-Xa Act, Unfractionated 0.51 IU/mL (0.30-0.70) 0.60 IU/mL (0.30-0.70) White Blood Count 17.9 x10^3/uL (4.0-11.0) Red Blood Count 3.11 x10^6/uL (3.50-5.40) Hemoglobin 10.6 g/dL (12.0-15.5) Hematocrit 32.4 % (36.0-47.0) Mean Corpuscular Volume 104 fL (79-100) Mean Corpuscular Hemoglobin 34 pg (25-35) Mean Corpuscular Hemoglobin Concent 33 g/dL (31-37) Red Cell Distribution Width 16.2 % (11.5-14.5) Platelet Count 160 x10^3/uL (140-400) Neutrophils (%) (Auto) 91 % (31-73) Lymphocytes (%) (Auto) 5 % (24-48) Monocytes (%) (Auto) 3 % (0-9) Eosinophils (%) (Auto) 0 % (0-3) Basophils (%) (Auto) 0 % (0-3) Neutrophils # (Auto) 16.3 x10^3uL (1.8-7.7) Lymphocytes # (Auto) 0.9 x10^3/uL (1.0-4.8) Monocytes # (Auto) 0.6 x10^3/uL (0.0-1.1) Eosinophils # (Auto) 0.0 x10^3/uL (0.0-0.7) Basophils # (Auto) 0.1 x10^3/uL (0.0-0.2) Prothrombin Time 19.0 SEC (11.7-14.0) Prothromb Time International Ratio 1.6 (0.8-1.1) Activated Partial Thromboplast Time > 150 SEC (24-38) Sodium Level 130 mmol/L (136-145) Potassium Level 4.6 mmol/L (3.5-5.1) Chloride Level 93 mmol/L (98-107) Carbon Dioxide Level 27 mmol/L (21-32) Anion Gap 10 (6-14) Blood Urea Nitrogen 44 mg/dL (7-20) Creatinine 3.2 mg/dL (0.6-1.0) Estimated GFR (Cockcroft-Gault) 13.7 BUN/Creatinine Ratio 14 (6-20) Glucose Level 360 mg/dL (70-99) Calcium Level 7.9 mg/dL (8.5-10.1) Total Bilirubin 1.2 mg/dL (0.2-1.0) Aspartate Amino Transf (AST/SGOT) 16 U/L (15-37) Alanine Aminotransferase (ALT/SGPT) 17 U/L (14-59) Alkaline Phosphatase 144 U/L (46-116) Total Protein 5.7 g/dL (6.4-8.2) Albumin 2.7 g/dL (3.4-5.0) Albumin/Globulin Ratio 0.9 (1.0-1.7) Laboratory Tests Test 07/27/18 12:09 07/27/18 14:45 07/27/18 17:16 07/27/18 20:47 Glucose (Fingerstick) 302 mg/dL (70-99) 336 mg/dL (70-99) 311 mg/dL (70-99) White Blood Count 14.5 x10^3/uL (4.0-11.0) Red Blood Count 3.15 x10^6/uL (3.50-5.40) Hemoglobin 10.7 g/dL (12.0-15.5) Hematocrit 32.7 % (36.0-47.0) Mean Corpuscular Volume 104 fL (79-100) Mean Corpuscular Hemoglobin 34 pg (25-35) Mean Corpuscular Hemoglobin Concent 33 g/dL (31-37) Red Cell Distribution Width 15.7 % (11.5-14.5) Platelet Count 170 x10^3/uL (140-400) Neutrophils (%) (Auto) 88 % (31-73) Lymphocytes (%) (Auto) 8 % (24-48) Monocytes (%) (Auto) 4 % (0-9) Eosinophils (%) (Auto) 0 % (0-3) Basophils (%) (Auto) 1 % (0-3) Neutrophils # (Auto) 12.8 x10^3uL (1.8-7.7) Lymphocytes # (Auto) 1.1 x10^3/uL (1.0-4.8) Monocytes # (Auto) 0.5 x10^3/uL (0.0-1.1) Eosinophils # (Auto) 0.0 x10^3/uL (0.0-0.7) Basophils # (Auto) 0.1 x10^3/uL (0.0-0.2) Test 07/28/18 00:01 07/28/18 05:00 07/28/18 07:03 Heparin Anti-Xa Act, Unfractionated 0.51 IU/mL (0.30-0.70) 0.60 IU/mL (0.30-0.70) White Blood Count 17.9 x10^3/uL (4.0-11.0) Red Blood Count 3.11 x10^6/uL (3.50-5.40) Hemoglobin 10.6 g/dL (12.0-15.5) Hematocrit 32.4 % (36.0-47.0) Mean Corpuscular Volume 104 fL (79-100) Mean Corpuscular Hemoglobin 34 pg (25-35) Mean Corpuscular Hemoglobin Concent 33 g/dL (31-37) Red Cell Distribution Width 16.2 % (11.5-14.5) Platelet Count 160 x10^3/uL (140-400) Neutrophils (%) (Auto) 91 % (31-73) Lymphocytes (%) (Auto) 5 % (24-48) Monocytes (%) (Auto) 3 % (0-9) Eosinophils (%) (Auto) 0 % (0-3) Basophils (%) (Auto) 0 % (0-3) Neutrophils # (Auto) 16.3 x10^3uL (1.8-7.7) Lymphocytes # (Auto) 0.9 x10^3/uL (1.0-4.8) Monocytes # (Auto) 0.6 x10^3/uL (0.0-1.1) Eosinophils # (Auto) 0.0 x10^3/uL (0.0-0.7) Basophils # (Auto) 0.1 x10^3/uL (0.0-0.2) Prothrombin Time 19.0 SEC (11.7-14.0) Prothromb Time International Ratio 1.6 (0.8-1.1) Activated Partial Thromboplast Time > 150 SEC (24-38) Sodium Level 130 mmol/L (136-145) Potassium Level 4.6 mmol/L (3.5-5.1) Chloride Level 93 mmol/L (98-107) Carbon Dioxide Level 27 mmol/L (21-32) Anion Gap 10 (6-14) Blood Urea Nitrogen 44 mg/dL (7-20) Creatinine 3.2 mg/dL (0.6-1.0) Estimated GFR (Cockcroft-Gault) 13.7 BUN/Creatinine Ratio 14 (6-20) Glucose Level 360 mg/dL (70-99) Calcium Level 7.9 mg/dL (8.5-10.1) Total Bilirubin 1.2 mg/dL (0.2-1.0) Aspartate Amino Transf (AST/SGOT) 16 U/L (15-37) Alanine Aminotransferase (ALT/SGPT) 17 U/L (14-59) Alkaline Phosphatase 144 U/L (46-116) Total Protein 5.7 g/dL (6.4-8.2) Albumin 2.7 g/dL (3.4-5.0) Albumin/Globulin Ratio 0.9 (1.0-1.7) Glucose (Fingerstick) 344 mg/dL (70-99) Medications Active Scripts Medications Dose Route/Sig Max Daily Dose Days Date Category Dose Instructions Senna (Sennosides) 8.6 Mg Tablet 8.6 Mg PO DAILY 07/19/18 Reported Novolog Flexpen (Insulin Aspart) 100 Unit/1 Ml Insuln.pen 1 Unit SQ TIDAC 07/19/18 Reported Miralax (Polyethylene Glycol 3350) 17 Gm Powd.pack 1 Packet PO BID 07/19/18 Reported Milk Of Magnesia (Magnesium Hydroxide) 400 Mg/5 Ml Oral.susp 30 Ml PO PRN DAILY 07/19/18 Reported Duoneb 0.5-3(2.5) Mg/3 Ml (Albuterol/Ipratropium) 3 Ml Ampul.neb 3 Ml NEB TID 07/19/18 Reported Fleet Enema (Na Phos,M-B/Na Phos,Di-Ba) 133 Ml Enema 1 Each RC PRN DAILY PRN 07/19/18 Reported Dulcolax (Bisacodyl) 10 Mg Supp.rect 10 Mg RC PRN DAILY PRN 07/19/18 Reported Docusate Sodium 100 Mg Capsule 1 Cap PO BID 07/19/18 Reported Carvedilol (Carvedilol) 12.5 Mg Tablet 12.5 Mg PO BIDWMEALS 07/19/18 Reported Levemir (Insulin Detemir) 100 Unit/1 Ml Vial 5 Unit SQ QHS 30 07/15/18 Rx Hold for < 140mg/dL Acetaminophen 500 Mg Tablet 500 Mg PO PRN Q6HRS PRN 30 07/14/18 Rx Aspirin 325 Mg Tablet 1 Tab PO DAILY 04/16/18 Rx Protonix (Pantoprazole Sodium) 20 Mg Tablet.dr 40 Mg PO DAILY 11/06/17 Reported Voltaren (Diclofenac Sodium) 100 Gm Gel..gram. 1 Gm TP BID 11/06/17 Reported Zofran Odt (Ondansetron) 4 Mg Tab.rapdis 4 Mg PO Q6HRS PRN 10/30/17 Reported Sensipar (Cinacalcet Hcl) 30 Mg Tablet 1 Tab PO DAILY 02/04/17 Reported Renvela (Sevelamer Carbonate) 2.4 Gm Powd.pack 2.4 Gm PO TIDWMEALS 02/04/17 Reported Lumigan (Bimatoprost) 2.5 Ml Drops 1 Drop EACHEYE QHS 02/04/17 Reported Calcitriol 0.25 Mcg Capsule 1 Cap PO DAILY 01/18/17 Reported Nephro-Roland Tablet (Folic Acid/Vitamin B Comp W-C) 0.8 Mg Tablet 1 Tab PO DAILYBFRSUP 11/26/15 Reported Vitamin D (Cholecalciferol (Vitamin D3)) 2,000 Unit Capsule 1 Cap PO DAILY 11/26/15 Reported Impression . IMPRESSION: 1. Dyspnea with cough and mild bronchospasm, likely related to viral pneumonitis, triggering bronchospasm. She may have adult onset reactive airway disease. 2. Recent abnormal CT chest on 07/11 suggesting upper lobe viral pneumonitis. She has some ground glass infiltrates at that time. 3. End-stage renal disease, on hemodialysis. 4. Underlying obesity. 5. Chronic hypoxic respiratory failure, on home oxygen 2 liters. 6 HYPOTENSION IMPROVED 7. LEONIE EXT BRACHIAL CLOT SEE BELOW PICC REMOVED 07/25 CENTRAL LINE 07/25 Impression: Successful ultrasound-guided placement of right internal jugular triple-lumen central venous catheter Plan . RESP STATUS IMPROVING, AT TIME TENUOUS NEEDS HIGH LEVEL OF CARE NOT A CANDIDATE FOR SNU, LTAC IS APPROPRIATE CONTINUE THE SAME STARTED ON HEPARIN FOR BRACHIAL CLOT JULIANE MILLER MD Jul 28, 2018 09:01
[2018-07-28] MEDS: INSULIN LISPRO 300 UNITS/3 ML INSULN.PEN. SQ SCH ×6 (09:04→17:33)
--- NOTE | 2018-07-28 09:31 | PDOC ---
Infectious Disease Note Subjective Subjective Doing ok. cough is slightly better No F/C/S/N/V/D/Rash ROS ROS o/w neg Vital Sign Vital Signs Vital Signs Date Time Temp Pulse Resp B/P (MAP) Pulse Ox O2 Delivery O2 Flow Rate FiO2 07/28/18 08:54 78 118/49 07/28/18 08:11 97 Room Air 07/28/18 07:25 97.3 18 97.3 Physical Exam PHYSICAL EXAM GENERAL: Propped up in bed, awake, Looks well HEENT: Oropharynx dry LUNGS: Mild congestion, right HEART: S1, S2. ABDOMEN: , soft and nontender. EXTREMITIES: No edema, no cyanosis. SKIN: No generalized rash. Chronic skin changes present in both lower extremities. 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 RIJ (07/25) without signs of any complications AVF bandaged/bleeding Labs Lab Laboratory Tests Test 07/27/18 12:09 07/27/18 14:45 07/27/18 17:16 07/27/18 20:47 Glucose (Fingerstick) 302 mg/dL (70-99) 336 mg/dL (70-99) 311 mg/dL (70-99) White Blood Count 14.5 x10^3/uL (4.0-11.0) Red Blood Count 3.15 x10^6/uL (3.50-5.40) Hemoglobin 10.7 g/dL (12.0-15.5) Hematocrit 32.7 % (36.0-47.0) Mean Corpuscular Volume 104 fL (79-100) Mean Corpuscular Hemoglobin 34 pg (25-35) Mean Corpuscular Hemoglobin Concent 33 g/dL (31-37) Red Cell Distribution Width 15.7 % (11.5-14.5) Platelet Count 170 x10^3/uL (140-400) Neutrophils (%) (Auto) 88 % (31-73) Lymphocytes (%) (Auto) 8 % (24-48) Monocytes (%) (Auto) 4 % (0-9) Eosinophils (%) (Auto) 0 % (0-3) Basophils (%) (Auto) 1 % (0-3) Neutrophils # (Auto) 12.8 x10^3uL (1.8-7.7) Lymphocytes # (Auto) 1.1 x10^3/uL (1.0-4.8) Monocytes # (Auto) 0.5 x10^3/uL (0.0-1.1) Eosinophils # (Auto) 0.0 x10^3/uL (0.0-0.7) Basophils # (Auto) 0.1 x10^3/uL (0.0-0.2) Test 07/28/18 00:01 07/28/18 05:00 07/28/18 07:03 Heparin Anti-Xa Act, Unfractionated 0.51 IU/mL (0.30-0.70) 0.60 IU/mL (0.30-0.70) White Blood Count 17.9 x10^3/uL (4.0-11.0) Red Blood Count 3.11 x10^6/uL (3.50-5.40) Hemoglobin 10.6 g/dL (12.0-15.5) Hematocrit 32.4 % (36.0-47.0) Mean Corpuscular Volume 104 fL (79-100) Mean Corpuscular Hemoglobin 34 pg (25-35) Mean Corpuscular Hemoglobin Concent 33 g/dL (31-37) Red Cell Distribution Width 16.2 % (11.5-14.5) Platelet Count 160 x10^3/uL (140-400) Neutrophils (%) (Auto) 91 % (31-73) Lymphocytes (%) (Auto) 5 % (24-48) Monocytes (%) (Auto) 3 % (0-9) Eosinophils (%) (Auto) 0 % (0-3) Basophils (%) (Auto) 0 % (0-3) Neutrophils # (Auto) 16.3 x10^3uL (1.8-7.7) Lymphocytes # (Auto) 0.9 x10^3/uL (1.0-4.8) Monocytes # (Auto) 0.6 x10^3/uL (0.0-1.1) Eosinophils # (Auto) 0.0 x10^3/uL (0.0-0.7) Basophils # (Auto) 0.1 x10^3/uL (0.0-0.2) Prothrombin Time 19.0 SEC (11.7-14.0) Prothromb Time International Ratio 1.6 (0.8-1.1) Activated Partial Thromboplast Time > 150 SEC (24-38) Sodium Level 130 mmol/L (136-145) Potassium Level 4.6 mmol/L (3.5-5.1) Chloride Level 93 mmol/L (98-107) Carbon Dioxide Level 27 mmol/L (21-32) Anion Gap 10 (6-14) Blood Urea Nitrogen 44 mg/dL (7-20) Creatinine 3.2 mg/dL (0.6-1.0) Estimated GFR (Cockcroft-Gault) 13.7 BUN/Creatinine Ratio 14 (6-20) Glucose Level 360 mg/dL (70-99) Calcium Level 7.9 mg/dL (8.5-10.1) Total Bilirubin 1.2 mg/dL (0.2-1.0) Aspartate Amino Transf (AST/SGOT) 16 U/L (15-37) Alanine Aminotransferase (ALT/SGPT) 17 U/L (14-59) Alkaline Phosphatase 144 U/L (46-116) Total Protein 5.7 g/dL (6.4-8.2) Albumin 2.7 g/dL (3.4-5.0) Albumin/Globulin Ratio 0.9 (1.0-1.7) Glucose (Fingerstick) 344 mg/dL (70-99) Objective Assessment Dyspnea with cough and bronchospasm with recent viral pneumonia with possible secondary infection- improving Hypotensive during dialysis. Leukocytosis, on steroids. End-stage renal disease, on hemodialysis. Obesity. Chronic hypoxic respiratory failure, on home O2 at 2 liters. Anemia of chronic kidney disease. ? aspiration Plan Plan of Care D/c Zosyn since 07/19 Elevate LUE Supportive care f/u am labs D/w nursing TRACY HERNANDEZ MD Jul 28, 2018 09:31
--- NOTE | 2018-07-28 10:44 | PDOC ---
Subjective: Subjective: Denies pain and bleeding. Daughter has questions about "what department" evaluates swallowing. Objective: Objective: Per RN - no bleeding, stooled this morning. Coughs when eats. Doing better overall. On Heparin. Vital Signs: Vital Signs Date Time Temp Pulse Resp B/P (MAP) Pulse Ox O2 Delivery O2 Flow Rate FiO2 07/28/18 08:54 78 118/49 07/28/18 08:11 97 Room Air 07/28/18 07:25 97.3 18 97.3 Labs: Laboratory Tests Test 07/27/18 12:09 07/27/18 14:45 07/27/18 17:16 07/27/18 20:47 Glucose (Fingerstick) 302 mg/dL 336 mg/dL 311 mg/dL White Blood Count 14.5 x10^3/uL Red Blood Count 3.15 x10^6/uL Hemoglobin 10.7 g/dL Hematocrit 32.7 % Mean Corpuscular Volume 104 fL Mean Corpuscular Hemoglobin 34 pg Mean Corpuscular Hemoglobin Concent 33 g/dL Red Cell Distribution Width 15.7 % Platelet Count 170 x10^3/uL Neutrophils (%) (Auto) 88 % Lymphocytes (%) (Auto) 8 % Monocytes (%) (Auto) 4 % Eosinophils (%) (Auto) 0 % Basophils (%) (Auto) 1 % Neutrophils # (Auto) 12.8 x10^3uL Lymphocytes # (Auto) 1.1 x10^3/uL Monocytes # (Auto) 0.5 x10^3/uL Eosinophils # (Auto) 0.0 x10^3/uL Basophils # (Auto) 0.1 x10^3/uL Test 07/28/18 00:01 07/28/18 05:00 07/28/18 07:03 Heparin Anti-Xa Act, Unfractionated 0.51 IU/mL 0.60 IU/mL White Blood Count 17.9 x10^3/uL Red Blood Count 3.11 x10^6/uL Hemoglobin 10.6 g/dL Hematocrit 32.4 % Mean Corpuscular Volume 104 fL Mean Corpuscular Hemoglobin 34 pg Mean Corpuscular Hemoglobin Concent 33 g/dL Red Cell Distribution Width 16.2 % Platelet Count 160 x10^3/uL Neutrophils (%) (Auto) 91 % Lymphocytes (%) (Auto) 5 % Monocytes (%) (Auto) 3 % Eosinophils (%) (Auto) 0 % Basophils (%) (Auto) 0 % Neutrophils # (Auto) 16.3 x10^3uL Lymphocytes # (Auto) 0.9 x10^3/uL Monocytes # (Auto) 0.6 x10^3/uL Eosinophils # (Auto) 0.0 x10^3/uL Basophils # (Auto) 0.1 x10^3/uL Prothrombin Time 19.0 SEC Prothromb Time International Ratio 1.6 Activated Partial Thromboplast Time > 150 SEC Sodium Level 130 mmol/L Potassium Level 4.6 mmol/L Chloride Level 93 mmol/L Carbon Dioxide Level 27 mmol/L Anion Gap 10 Blood Urea Nitrogen 44 mg/dL Creatinine 3.2 mg/dL Estimated GFR (Cockcroft-Gault) 13.7 BUN/Creatinine Ratio 14 Glucose Level 360 mg/dL Calcium Level 7.9 mg/dL Total Bilirubin 1.2 mg/dL Aspartate Amino Transf (AST/SGOT) 16 U/L Alanine Aminotransferase (ALT/SGPT) 17 U/L Alkaline Phosphatase 144 U/L Total Protein 5.7 g/dL Albumin 2.7 g/dL Albumin/Globulin Ratio 0.9 Glucose (Fingerstick) 344 mg/dL Imaging: Videoswallow 07/26 Impression: 1. There was laryngeal pressure of thin inconsistency with larger bolus. Videoswallow evaluation: Please refer to full report for additional details. Impressions: Mild oropharyngeal dysphagia w/ pt demonstrating prolonged chewing and decreased oral transit w/ solids, premature spillage of all consistencies to the vallecula and mild swallow delay. Penetration of thin liquids w/ large drinks via cup, chin tuck and straw drinking were observed. Decreasing bolus size, keeping head in neutral position and alternating or utilizing a dry swallow were all effective strategies. No aspiration was observed during this evaluation. Recommendations: Dysphagia II diet w/ thin liquids, no straws, use swallow strategies (d/w RN, pt and family). Crush meds. ST f/u for dysphagia. PE: GEN: NAD LUNGS: room air HEART: RRR ABD: S/ND/NT NEURO/PSYCH: A & O 3 - will only nod or shake head, doesn't speak A/P: Rectal bleeding - resolved Chronic anemia Oropharyngeal dysphagia -- No recurrent bleeding. Change to PO PPI since eating. Continue diet per [employer]OR [employer]IC[employer]. REDD NAVARRO Jul 28, 2018 10:44
[2018-07-28 11:00] VITALS: BP 134/66
--- NOTE | 2018-07-28 13:54 | PDOC ---
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 Decreasing bolus size, keeping head in neutral position and alternating or utilizing a dry swallow were all effective strategies. No aspiration was observed during this evaluation. Occlusive thrombus in one brachial vein in the left upper arm surrounding an indwelling PICC line, on heparin for clot Dysphagia II diet w/ thin liquids, AGREE WITH LTAC PLANS REMAINS TO HAVE MARKED DECLINES SLOW TO IMPROVE, High risk of additional complications History of Present Illness History of Present Illness bleeding from HD fistula, heparin level high will hold heparin gtt for 6 hours, replace wound dressing patchy ground glass opacification of the lungs. dysphagia and aspiration . MOD-SEVERE protein-caloric malnutrition try to transfer to LTAC Vitals Vitals Vital Signs Date Time Temp Pulse Resp B/P (MAP) Pulse Ox O2 Delivery O2 Flow Rate FiO2 07/28/18 11:48 97 Room Air 07/28/18 11:00 97.9 82 18 134/66 (88) 97.9 07/28/18 08:00 2.0 Physical Exam Physical Exam GENERAL: Propped up in bed, awake, Looks well HEENT: Oropharynx dry LUNGS: Mild congestion, right HEART: S1, S2. ABDOMEN: , soft and nontender. EXTREMITIES: No edema, no cyanosis. SKIN: No generalized rash. Chronic skin changes present in both lower extremities. FILM CUTTER: Awake, appropriate RIJ (07/25) without signs of any complications AVF bandaged/bleeding General: Alert, Oriented X3, Cooperative, No acute distress Heart: Regular rate, Normal S1, Normal S2, No murmurs, Gallops Lungs: Wheezing, Crackles (less crackles) Abdomen: Normal bowel sounds, Soft, No tenderness, No hepatosplenomegaly, No masses Extremities: No clubbing, No cyanosis, No edema, Normal pulses, No tenderness/ swelling Skin: No rashes, No breakdown, No significant lesion Labs LABS Left upper extremity venous ultrasound, 07/23/2018: History: Arm edema, possible clot The study is just now being presented for review due to PACS issues. Duplex evaluation of the major veins in the left upper extremity was performed including grayscale, color-flow and spectral Doppler analysis. The left internal jugular, subclavian and axillary veins are patent. There is occlusive thrombus in one of the brachial veins in the left upper arm related to a PICC line. The other brachial vein is patent. Patent basilic and cephalic veins are present in the upper arm. Patent radial and ulnar veins are evident in the forearm. Subcutaneous edema is evident in the forearm. IMPRESSION: Occlusive thrombus in one brachial vein in the left upper arm surrounding an indwelling PICC line. Note: The nuclear medicine technologist reports having given these findings to the patient's nurse at the time of the exam. DICTATED and SIGNED BY: AYE SOLIS MD DATE: 07/24/18 1605 Video swallowing examination History: Dysphagia Findings: Fluoroscopy time, fluoroscopy images: 2.4 minutes, 0 images Patient was given a variety of consistencies of barium with a member of the speech pathology department present. There was laryngeal penetration with thin consistencies with larger boluses, not seen with smaller boluses. No episodes of aspiration were identified with the various tested consistencies. Impression: 1. There was laryngeal pressure of thin inconsistency with larger bolus. Electronically signed by: Sly Rubi MD (07/26/2018 2:23 PM) [facility] Laboratory Tests Test 07/27/18 14:45 07/27/18 17:16 07/27/18 20:47 07/28/18 00:01 White Blood Count 14.5 x10^3/uL (4.0-11.0) Red Blood Count 3.15 x10^6/uL (3.50-5.40) Hemoglobin 10.7 g/dL (12.0-15.5) Hematocrit 32.7 % (36.0-47.0) Mean Corpuscular Volume 104 fL (79-100) Mean Corpuscular Hemoglobin 34 pg (25-35) Mean Corpuscular Hemoglobin Concent 33 g/dL (31-37) Red Cell Distribution Width 15.7 % (11.5-14.5) Platelet Count 170 x10^3/uL (140-400) Neutrophils (%) (Auto) 88 % (31-73) Lymphocytes (%) (Auto) 8 % (24-48) Monocytes (%) (Auto) 4 % (0-9) Eosinophils (%) (Auto) 0 % (0-3) Basophils (%) (Auto) 1 % (0-3) Neutrophils # (Auto) 12.8 x10^3uL (1.8-7.7) Lymphocytes # (Auto) 1.1 x10^3/uL (1.0-4.8) Monocytes # (Auto) 0.5 x10^3/uL (0.0-1.1) Eosinophils # (Auto) 0.0 x10^3/uL (0.0-0.7) Basophils # (Auto) 0.1 x10^3/uL (0.0-0.2) Glucose (Fingerstick) 336 mg/dL (70-99) 311 mg/dL (70-99) Heparin Anti-Xa Act, Unfractionated 0.51 IU/mL (0.30-0.70) Test 07/28/18 05:00 07/28/18 07:03 07/28/18 11:26 White Blood Count 17.9 x10^3/uL (4.0-11.0) Red Blood Count 3.11 x10^6/uL (3.50-5.40) Hemoglobin 10.6 g/dL (12.0-15.5) Hematocrit 32.4 % (36.0-47.0) Mean Corpuscular Volume 104 fL (79-100) Mean Corpuscular Hemoglobin 34 pg (25-35) Mean Corpuscular Hemoglobin Concent 33 g/dL (31-37) Red Cell Distribution Width 16.2 % (11.5-14.5) Platelet Count 160 x10^3/uL (140-400) Neutrophils (%) (Auto) 91 % (31-73) Lymphocytes (%) (Auto) 5 % (24-48) Monocytes (%) (Auto) 3 % (0-9) Eosinophils (%) (Auto) 0 % (0-3) Basophils (%) (Auto) 0 % (0-3) Neutrophils # (Auto) 16.3 x10^3uL (1.8-7.7) Lymphocytes # (Auto) 0.9 x10^3/uL (1.0-4.8) Monocytes # (Auto) 0.6 x10^3/uL (0.0-1.1) Eosinophils # (Auto) 0.0 x10^3/uL (0.0-0.7) Basophils # (Auto) 0.1 x10^3/uL (0.0-0.2) Prothrombin Time 19.0 SEC (11.7-14.0) Prothromb Time International Ratio 1.6 (0.8-1.1) Activated Partial Thromboplast Time > 150 SEC (24-38) Heparin Anti-Xa Act, Unfractionated 0.60 IU/mL (0.30-0.70) Sodium Level 130 mmol/L (136-145) Potassium Level 4.6 mmol/L (3.5-5.1) Chloride Level 93 mmol/L (98-107) Carbon Dioxide Level 27 mmol/L (21-32) Anion Gap 10 (6-14) Blood Urea Nitrogen 44 mg/dL (7-20) Creatinine 3.2 mg/dL (0.6-1.0) Estimated GFR (Cockcroft-Gault) 13.7 BUN/Creatinine Ratio 14 (6-20) Glucose Level 360 mg/dL (70-99) Calcium Level 7.9 mg/dL (8.5-10.1) Total Bilirubin 1.2 mg/dL (0.2-1.0) Aspartate Amino Transf (AST/SGOT) 16 U/L (15-37) Alanine Aminotransferase (ALT/SGPT) 17 U/L (14-59) Alkaline Phosphatase 144 U/L (46-116) Total Protein 5.7 g/dL (6.4-8.2) Albumin 2.7 g/dL (3.4-5.0) Albumin/Globulin Ratio 0.9 (1.0-1.7) Glucose (Fingerstick) 344 mg/dL (70-99) 367 mg/dL (70-99) Assessment and Plan Assessmemt and Plan Problems Medical Problems: (1) Congestive heart failure Status: Acute Comment Review of Relevant I have reviewed the following items smith (where applicable) has been applied. Labs Laboratory Tests Test 07/26/18 17:00 07/26/18 17:13 07/26/18 20:46 07/27/18 05:45 Heparin Anti-Xa Act, Unfractionated 0.67 IU/mL (0.30-0.70) 0.80 IU/mL (0.30-0.70) Glucose (Fingerstick) 286 mg/dL (70-99) 238 mg/dL (70-99) Sodium Level 135 mmol/L (136-145) Potassium Level 4.3 mmol/L (3.5-5.1) Chloride Level 95 mmol/L (98-107) Carbon Dioxide Level 29 mmol/L (21-32) Anion Gap 11 (6-14) Blood Urea Nitrogen 27 mg/dL (7-20) Creatinine 2.4 mg/dL (0.6-1.0) Estimated GFR (Cockcroft-Gault) 19.1 Glucose Level 322 mg/dL (70-99) Calcium Level 7.9 mg/dL (8.5-10.1) Phosphorus Level 2.7 mg/dL (2.6-4.7) Albumin 3.0 g/dL (3.4-5.0) Test 07/27/18 08:05 07/27/18 12:09 07/27/18 14:45 07/27/18 17:16 Glucose (Fingerstick) 286 mg/dL (70-99) 302 mg/dL (70-99) 336 mg/dL (70-99) White Blood Count 14.5 x10^3/uL (4.0-11.0) Red Blood Count 3.15 x10^6/uL (3.50-5.40) Hemoglobin 10.7 g/dL (12.0-15.5) Hematocrit 32.7 % (36.0-47.0) Mean Corpuscular Volume 104 fL (79-100) Mean Corpuscular Hemoglobin 34 pg (25-35) Mean Corpuscular Hemoglobin Concent 33 g/dL (31-37) Red Cell Distribution Width 15.7 % (11.5-14.5) Platelet Count 170 x10^3/uL (140-400) Neutrophils (%) (Auto) 88 % (31-73) Lymphocytes (%) (Auto) 8 % (24-48) Monocytes (%) (Auto) 4 % (0-9) Eosinophils (%) (Auto) 0 % (0-3) Basophils (%) (Auto) 1 % (0-3) Neutrophils # (Auto) 12.8 x10^3uL (1.8-7.7) Lymphocytes # (Auto) 1.1 x10^3/uL (1.0-4.8) Monocytes # (Auto) 0.5 x10^3/uL (0.0-1.1) Eosinophils # (Auto) 0.0 x10^3/uL (0.0-0.7) Basophils # (Auto) 0.1 x10^3/uL (0.0-0.2) Test 07/27/18 20:47 07/28/18 00:01 07/28/18 05:00 07/28/18 07:03 Glucose (Fingerstick) 311 mg/dL (70-99) 344 mg/dL (70-99) Heparin Anti-Xa Act, Unfractionated 0.51 IU/mL (0.30-0.70) 0.60 IU/mL (0.30-0.70) White Blood Count 17.9 x10^3/uL (4.0-11.0) Red Blood Count 3.11 x10^6/uL (3.50-5.40) Hemoglobin 10.6 g/dL (12.0-15.5) Hematocrit 32.4 % (36.0-47.0) Mean Corpuscular Volume 104 fL (79-100) Mean Corpuscular Hemoglobin 34 pg (25-35) Mean Corpuscular Hemoglobin Concent 33 g/dL (31-37) Red Cell Distribution Width 16.2 % (11.5-14.5) Platelet Count 160 x10^3/uL (140-400) Neutrophils (%) (Auto) 91 % (31-73) Lymphocytes (%) (Auto) 5 % (24-48) Monocytes (%) (Auto) 3 % (0-9) Eosinophils (%) (Auto) 0 % (0-3) Basophils (%) (Auto) 0 % (0-3) Neutrophils # (Auto) 16.3 x10^3uL (1.8-7.7) Lymphocytes # (Auto) 0.9 x10^3/uL (1.0-4.8) Monocytes # (Auto) 0.6 x10^3/uL (0.0-1.1) Eosinophils # (Auto) 0.0 x10^3/uL (0.0-0.7) Basophils # (Auto) 0.1 x10^3/uL (0.0-0.2) Prothrombin Time 19.0 SEC (11.7-14.0) Prothromb Time International Ratio 1.6 (0.8-1.1) Activated Partial Thromboplast Time > 150 SEC (24-38) Sodium Level 130 mmol/L (136-145) Potassium Level 4.6 mmol/L (3.5-5.1) Chloride Level 93 mmol/L (98-107) Carbon Dioxide Level 27 mmol/L (21-32) Anion Gap 10 (6-14) Blood Urea Nitrogen 44 mg/dL (7-20) Creatinine 3.2 mg/dL (0.6-1.0) Estimated GFR (Cockcroft-Gault) 13.7 BUN/Creatinine Ratio 14 (6-20) Glucose Level 360 mg/dL (70-99) Calcium Level 7.9 mg/dL (8.5-10.1) Total Bilirubin 1.2 mg/dL (0.2-1.0) Aspartate Amino Transf (AST/SGOT) 16 U/L (15-37) Alanine Aminotransferase (ALT/SGPT) 17 U/L (14-59) Alkaline Phosphatase 144 U/L (46-116) Total Protein 5.7 g/dL (6.4-8.2) Albumin 2.7 g/dL (3.4-5.0) Albumin/Globulin Ratio 0.9 (1.0-1.7) Test 07/28/18 11:26 Glucose (Fingerstick) 367 mg/dL (70-99) Laboratory Tests Test 07/27/18 14:45 07/27/18 17:16 07/27/18 20:47 07/28/18 00:01 White Blood Count 14.5 x10^3/uL (4.0-11.0) Red Blood Count 3.15 x10^6/uL (3.50-5.40) Hemoglobin 10.7 g/dL (12.0-15.5) Hematocrit 32.7 % (36.0-47.0) Mean Corpuscular Volume 104 fL (79-100) Mean Corpuscular Hemoglobin 34 pg (25-35) Mean Corpuscular Hemoglobin Concent 33 g/dL (31-37) Red Cell Distribution Width 15.7 % (11.5-14.5) Platelet Count 170 x10^3/uL (140-400) Neutrophils (%) (Auto) 88 % (31-73) Lymphocytes (%) (Auto) 8 % (24-48) Monocytes (%) (Auto) 4 % (0-9) Eosinophils (%) (Auto) 0 % (0-3) Basophils (%) (Auto) 1 % (0-3) Neutrophils # (Auto) 12.8 x10^3uL (1.8-7.7) Lymphocytes # (Auto) 1.1 x10^3/uL (1.0-4.8) Monocytes # (Auto) 0.5 x10^3/uL (0.0-1.1) Eosinophils # (Auto) 0.0 x10^3/uL (0.0-0.7) Basophils # (Auto) 0.1 x10^3/uL (0.0-0.2) Glucose (Fingerstick) 336 mg/dL (70-99) 311 mg/dL (70-99) Heparin Anti-Xa Act, Unfractionated 0.51 IU/mL (0.30-0.70) Test 07/28/18 05:00 07/28/18 07:03 07/28/18 11:26 White Blood Count 17.9 x10^3/uL (4.0-11.0) Red Blood Count 3.11 x10^6/uL (3.50-5.40) Hemoglobin 10.6 g/dL (12.0-15.5) Hematocrit 32.4 % (36.0-47.0) Mean Corpuscular Volume 104 fL (79-100) Mean Corpuscular Hemoglobin 34 pg (25-35) Mean Corpuscular Hemoglobin Concent 33 g/dL (31-37) Red Cell Distribution Width 16.2 % (11.5-14.5) Platelet Count 160 x10^3/uL (140-400) Neutrophils (%) (Auto) 91 % (31-73) Lymphocytes (%) (Auto) 5 % (24-48) Monocytes (%) (Auto) 3 % (0-9) Eosinophils (%) (Auto) 0 % (0-3) Basophils (%) (Auto) 0 % (0-3) Neutrophils # (Auto) 16.3 x10^3uL (1.8-7.7) Lymphocytes # (Auto) 0.9 x10^3/uL (1.0-4.8) Monocytes # (Auto) 0.6 x10^3/uL (0.0-1.1) Eosinophils # (Auto) 0.0 x10^3/uL (0.0-0.7) Basophils # (Auto) 0.1 x10^3/uL (0.0-0.2) Prothrombin Time 19.0 SEC (11.7-14.0) Prothromb Time International Ratio 1.6 (0.8-1.1) Activated Partial Thromboplast Time > 150 SEC (24-38) Heparin Anti-Xa Act, Unfractionated 0.60 IU/mL (0.30-0.70) Sodium Level 130 mmol/L (136-145) Potassium Level 4.6 mmol/L (3.5-5.1) Chloride Level 93 mmol/L (98-107) Carbon Dioxide Level 27 mmol/L (21-32) Anion Gap 10 (6-14) Blood Urea Nitrogen 44 mg/dL (7-20) Creatinine 3.2 mg/dL (0.6-1.0) Estimated GFR (Cockcroft-Gault) 13.7 BUN/Creatinine Ratio 14 (6-20) Glucose Level 360 mg/dL (70-99) Calcium Level 7.9 mg/dL (8.5-10.1) Total Bilirubin 1.2 mg/dL (0.2-1.0) Aspartate Amino Transf (AST/SGOT) 16 U/L (15-37) Alanine Aminotransferase (ALT/SGPT) 17 U/L (14-59) Alkaline Phosphatase 144 U/L (46-116) Total Protein 5.7 g/dL (6.4-8.2) Albumin 2.7 g/dL (3.4-5.0) Albumin/Globulin Ratio 0.9 (1.0-1.7) Glucose (Fingerstick) 344 mg/dL (70-99) 367 mg/dL (70-99) Medications Current Medications Albuterol/ Ipratropium (Duoneb) 3 ml 1X ONCE NEB Last administered on at 12:57; Start 07/19/18 at 12:45; Stop 07/19/18 at 12:46; Status DC Ondansetron HCl (Zofran) 4 mg PRN Q8HRS PRN IV NAUSEA/VOMITING; Start 07/19/18 at 14:30; Stop 07/20/18 at 14:29; Status DC Acetaminophen (Tylenol) 650 mg PRN Q4HRS PRN PO FEVER; Start 07/19/18 at 14:30 ; Stop 07/20/18 at 08:37; Status DC Nitroglycerin (Nitrostat) 0.4 mg PRN Q5MIN PRN SL CHEST PAIN; Start 07/19/18 at 14:30; Stop 07/20/18 at 14:29; Status DC Albuterol/ Ipratropium (Duoneb) 3 ml RTQID NEB ; Start 07/19/18 at 16:00; Stop 07/20/18 at 15:59; Status Cancel Aspirin (Tracee Aspirin) 325 mg DAILY PO Last administered on 07/28/18at 08:53; Start 07/19/18 at 15:00 Carvedilol (Coreg) 3.125 mg BIDWMEALS PO ; Start 07/19/18 at 17:00; Stop at 19:42; Status DC Cinacalcet (Sensipar) 30 mg DAILY PO Last administered on 07/28/18at 09:01; Start 07/19/18 at 15:00 Diclofenac Sodium (Voltaren) 1 grisel BID TP Last administered on 07/28/18at 08:58; Start 07/19/18 at 21:00 Fentanyl (Duragesic 12mcg/ Hr Patch) 1 patch Q3DAYS TD ; Start 07/19/18 at 15:00 ; Stop 07/19/18 at 19:42; Status DC Vitamin B Complex/ Vitamin C (Bela-Roland) 1 tab DAILYBFRSUP PO Last administered on 07/28/18at 08:53; Start 07/19/18 at 17:00 Ondansetron HCl (Zofran Odt) 4 mg PRN Q6HRS PRN PO NAUSEA/VOMITING; Start 07/19 at 14:45 Sevelamer Carbonate (Renvela) 2.4 gm TIDWMEALS PO Last administered on at 12:24; Start 07/19/18 at 17:00 Acetaminophen (Tylenol) 500 mg PRN Q6HRS PRN PO MILD PAIN / TEMP; Start at 14:45 Latanoprost (Xalatan) 1 drop QHS OU Last administered on 07/27/18at 20:50; Start 07/19/18 at 21:00 Calcitriol (Rocaltrol) 0.25 mcg DAILY PO Last administered on 07/28/18at 08:53; Start 07/20/18 at 09:00 Vitamin D (Vitamin D3) 1,000 unit DAILY PO Last administered on 07/28/18at 08:54 ; Start 07/20/18 at 09:00 Hydromorphone HCl (Dilaudid) 2 mg PRN Q8HRS PRN PO MODERATE PAIN, SEVERE PAIN; Start 07/19/18 at 15:00; Stop 07/20/18 at 09:31; Status DC Insulin Glargine (Lantus) 5 units QHS SQ Last administered on 07/26/18at 21:46; Start 07/19/18 at 21:00; Stop 07/27/18 at 10:00; Status DC Non-Formulary Medication (Latanoprost/Pf (Latanoprost 0.005% Eye Drop)) 7.5 ml QHS OP ; Start 07/19/18 at 21:00; Status UNV Pantoprazole Sodium (Protonix) 40 mg DAILYAC PO Last administered on 07/24/18at 11:17; Start 07/20/18 at 07:30; Stop 07/27/18 at 09:10; Status DC Piperacillin Sod/ Tazobactam Sod (Zosyn Per Pharmacy) 1 each PRN DAILY PRN MC SEE COMMENTS; Start 07/19/18 at 14:45; Stop 07/24/18 at 11:11; Status DC Albuterol/ Ipratropium (Duoneb) 3 ml RTQID NEB Last administered on 07/28/18at 11 :47; Start 07/19/18 at 16:00 Guaifenesin (Robitussin Dm) 10 ml QID PO Last administered on 07/28/18 12:24; Start 07/19/18 at 17:00 Temazepam (Restoril) 7.5 mg PRN QHS PRN PO INSOMNIA Last administered on at 20:42; Start 07/19/18 at 14:45 Insulin Human Lispro (HumaLOG) 0-7 UNITS TIDWMEALS SQ Last administered on 12:39; Start 07/19/18 at 17:00 Dextrose (Dextrose 50%-Water Syringe) 12.5 gm PRN Q15MIN PRN IV SEE COMMENTS; Start 07/19/18 at 14:45 Piperacillin Sod/ Tazobactam Sod 2.25 gm/Sodium Chloride 50 ml @ 100 mls/hr Q8H IV Last administered on 07/24/18 00:10; Start 07/19/18 at 16:00; Stop at 08:08; Status DC Furosemide (Lasix) 40 mg 1X ONCE IVP Last administered on 07/19/18at 14:52; Start 07/19/18 at 14:45; Stop 07/19/18 at 14:52; Status DC Docusate Sodium (Colace) 100 mg BID PO Last administered on 07/28/18 09:01; Start 07/19/18 at 21:00 Magnesium Hydroxide (Milk Of Magnesia) 2,400 mg PRN DAILY PRN PO CONSTIPATION; Start 07/19/18 at 19:45 Sodium Monofluorophosphate (Fleet Adult) 133 ml PRN DAILY PRN RC CONSTIPATION; Start 07/19/18 at 19:45; Stop 07/22/18 at 12:17; Status DC Bisacodyl (Dulcolax Supp) 10 mg PRN DAILY PRN [place] CONSTIPATION 1ST CHOICE; Start 07/19/18 at 19:45 Polyethylene Glycol (miraLAX PACKET) 17 gm BID PO Last administered on 21:29; Start 07/19/18 at 21:00 Sennosides (Senna) 8.6 mg DAILY PO Last administered on 07/24/18 11:16; Start 07/20/18 at 09:00 Lactobacillus Rhamnosus (Culturelle) 1 cap BID PO Last administered on at 08:53; Start 07/20/18 at 21:00 Methylprednisolone Sodium Succinate (SOLU-Medrol 40MG VIAL) 40 mg Q8HRS IV Last administered on 07/28/18at 05:07; Start 07/20/18 at 14:00 Albumin Human 250 ml @ 62.5 mls/hr PRN Q6HRS PRN IV for MAP < 65 Last administered on 07/21/18at 20:45; Start 07/20/18 at 09:45 Magnesium Sulfate 50 ml @ 25 mls/hr PRN DAILY PRN IV for Mag < 1.7 on am labs; Start 07/20/18 at 09:45 Dopamine HCl/ Dextrose 250 ml @ 6.124 mls/ hr CONT PRN IV SEE I/O RECORD Last administered on 07/24/18at 20:37; Start 07/20/18 at 12:00; Stop 07/26/18 at 14:13 ; Status DC Sodium Chloride 1,000 ml @ 1,000 mls/hr Q1H PRN IV hypotension; Start 07/21/18 at 13:00; Stop 07/21/18 at 18:59; Status DC Sodium Chloride 1,000 ml @ 400 mls/hr Q2H30M PRN IV PATENCY; Start 07/21/18 at 13:00; Stop 07/22/18 at 00:59; Status DC Info (PHARMACY MONITORING -- do not chart) 1 each PRN DAILY PRN MC SEE COMMENTS ; Start 07/21/18 at 13:30; Status UNV Info (PHARMACY MONITORING -- do not chart) 1 each PRN DAILY PRN MC SEE COMMENTS ; Start 07/21/18 at 13:30; Stop 07/24/18 at 07:10; Status DC Albumin Human 100 ml @ 100 mls/hr 1X ONCE IV Last administered on 07/21/18at 14:00; Start 07/21/18 at 13:30; Stop 07/21/18 at 14:29; Status DC Sodium Chloride 500 ml @ 500 mls/hr 1X ONCE IV Last administered on at 11:14; Start 07/22/18 at 11:15; Stop 07/22/18 at 12:14; Status DC Digoxin (Lanoxin) 125 mcg QMWF@1600 PO ; Start 07/23/18 at 16:00; Stop 07/23/18 at 16:00; Status DC Digoxin (Lanoxin) 125 mcg 1X ONCE PO Last administered on 07/22/18 12:26; Start 07/22/18 at 12:00; Stop 07/22/18 at 12:01; Status DC Midodrine (Proamatine) 2.5 mg [id number] PO Last administered on 07/28/18at 08:54; Start 07/22/18 at 13:00 Digoxin (Lanoxin) 125 mcg QTUTHSA PO Last administered on 07/26/18at 16:58; Start 07/24/18 at 16:00 Sodium Chloride 500 ml @ 500 mls/hr 1X ONCE IV Last administered on at 15:42; Start 07/23/18 at 15:00; Stop 07/23/18 at 15:59; Status DC Sodium Chloride 1,000 ml @ 1,000 mls/hr Q1H PRN IV hypotension; Start 07/24/18 at 06:59; Stop 07/24/18 at 12:58; Status DC Albumin Human 200 ml @ 200 mls/hr 1X PRN PRN IV Hypotension Last administered on 07/24/18at 08:09; Start 07/24/18 at 07:00; Stop 07/24/18 at 12:59; Status DC Sodium Chloride 1,000 ml @ 400 mls/hr Q2H30M PRN IV PATENCY; Start 07/24/18 at 06:59; Stop 07/24/18 at 18:58; Status DC Info (PHARMACY MONITORING -- do not chart) 1 each PRN DAILY PRN MC SEE COMMENTS ; Start 07/24/18 at 07:00; Stop 07/25/18 at 11:17; Status DC Info (PHARMACY MONITORING -- do not chart) 1 each PRN DAILY PRN MC SEE COMMENTS ; Start 07/24/18 at 07:00; Status UNV Amoxicillin/ Clavulanate Potassium (Augmentin 500/ 125mg) 1 tab BID PO Last administered on 07/24/18at 11:16; Start 07/24/18 at 09:00; Stop 07/25/18 at 09:21 ; Status DC Amino Acids/ Glycerin/ Electrolytes 1,000 ml @ 50 mls/hr Q20H IV Last administered on 07/27/18at 20:49; Start 07/24/18 at 17:00 Heparin Sodium/ Dextrose 500 ml @ 0 mls/hr CONT PRN IV SEE I/O RECORD; Start at 19:30; Status Cancel Heparin Sodium (Porcine) (Heparin Sodium) 6,850 unit 1X ONCE IV Last administered on 07/24/18at 19:38; Start 07/24/18 at 19:30; Stop 07/24/18 at 19:33 ; Status DC Heparin Sodium/ Dextrose 500 ml @ 0 mls/hr CONT PRN IV SEE I/O RECORD; Start at 19:30; Status UNV Heparin Sodium (Porcine) (Heparin Sodium) 2,550 unit PRN Q6HRS PRN IV FOR UFH LEVEL LESS THAN 0.2; Start 07/24/18 at 19:30 Heparin Sodium (Porcine) (Heparin Sodium) 1,300 unit PRN Q6HRS PRN IV FOR UFH LEVEL 0.2 - 0.29 Last administered on 07/25/18at 23:25; Start 07/24/18 at 19:30 Heparin Sodium/ Dextrose 500 ml @ 0 mls/hr CONT PRN IV SEE I/O RECORD Last administered on 07/28/18at 05:11; Start 07/24/18 at 19:45 Sodium Chloride 1,000 ml @ 1,000 mls/hr Q1H PRN IV hypotension; Start 07/25/18 at 08:22; Stop 07/25/18 at 14:21; Status DC Albumin Human 200 ml @ 200 mls/hr 1X ONCE IV Last administered on 07/25/18at 08:49; Start 07/25/18 at 08:30; Stop 07/25/18 at 09:29; Status DC Diphenhydramine HCl (Benadryl) 25 mg 1X PRN PRN IV ITCHING; Start 07/25/18 at 08:30; Stop 07/26/18 at 08:29; Status DC Diphenhydramine HCl (Benadryl) 25 mg 1X PRN PRN IV ITCHING; Start 07/25/18 at 08:30; Stop 07/26/18 at 08:29; Status DC Sodium Chloride 1,000 ml @ 400 mls/hr Q2H30M PRN IV PATENCY; Start 07/25/18 at 08:22; Stop 07/25/18 at 20:21; Status DC Info (PHARMACY MONITORING -- do not chart) 1 each PRN DAILY PRN MC SEE COMMENTS ; Start 07/25/18 at 08:30; Stop 07/26/18 at 14:10; Status DC Piperacillin Sod/ Tazobactam Sod 2.25 gm/Sodium Chloride 50 ml @ 100 mls/hr Q8HRS IV Last administered on 07/28/18at 05:07; Start 07/25/18 at 09:30; Stop 07/28/18 at 09:31; Status DC Info (Anti-Coagulation Monitoring By Pharmacy) 1 each PRN DAILY PRN MC SEE COMMENTS Last administered on 07/27/18at 13:16; Start 07/25/18 at 11:30 Info (PHARMACY MONITORING -- do not chart) 1 each PRN DAILY PRN MC SEE COMMENTS ; Start 07/26/18 at 08:15 Info (PHARMACY MONITORING -- do not chart) 1 each PRN DAILY PRN MC SEE COMMENTS ; Start 07/26/18 at 08:15; Stop 07/26/18 at 08:17; Status DC Barium Sulfate (Varibar Thin Liquid Apple) 148 gm 1X ONCE PO Last administered on 07/26/18at 13:30; Start 07/26/18 at 13:30; Stop 07/26/18 at 13:31 ; Status DC Pantoprazole Sodium (PROTONIX VIAL for IV PUSH) 40 mg DAILYAC IVP Last administered on 07/28/18at 07:54; Start 07/27/18 at 11:30; Stop 07/28/18 at 10:43; Status DC Insulin Glargine (Lantus) 9 units QHS SQ Last administered on 07/27/18at 20:52; Start 07/27/18 at 21:00 Insulin Human Lispro (HumaLOG) 4 units TIDWMEALS SQ Last administered on at 12:37; Start 07/27/18 at 12:00 Pantoprazole Sodium (Protonix) 40 mg DAILYAC PO ; Start 07/29/18 at 07:30 Active Scripts Active Levemir (Insulin Detemir) 100 Unit/1 Ml Vial 5 Unit SQ QHS 30 Days Hold for < 140mg/dL Aspirin 325 Mg Tablet 1 Tab PO DAILY Reported Amlodipine Besylate 10 Mg Tablet 10 Mg PO DAILY Tylenol (Acetaminophen) 325 Mg Tablet 2 Tab PO PRN Q6HRS PRN Senna (Sennosides) 8.6 Mg Tablet 8.6 Mg PO DAILY Novolog Flexpen (Insulin Aspart) 100 Unit/1 Ml Insuln.pen 1 Unit SQ TIDAC Miralax (Polyethylene Glycol 3350) 17 Gm Powd.pack 1 Packet PO BID Milk Of Magnesia (Magnesium Hydroxide) 400 Mg/5 Ml Oral.susp 30 Ml PO PRN DAILY Duoneb 0.5-3(2.5) Mg/3 Ml (Albuterol/Ipratropium) 3 Ml Ampul.neb 3 Ml NEB TID Fleet Enema (Na Phos,M-B/Na Phos,Di-Ba) 133 Ml Enema 1 Each RC PRN DAILY PRN Dulcolax (Bisacodyl) 10 Mg Supp.rect 10 Mg RC PRN DAILY PRN Docusate Sodium 100 Mg Capsule 1 Cap PO BID Carvedilol (Carvedilol) 12.5 Mg Tablet 12.5 Mg PO BIDWMEALS Protonix (Pantoprazole Sodium) 20 Mg Tablet.dr 40 Mg PO DAILY Voltaren (Diclofenac Sodium) 100 Gm Gel..gram. 1 Gm TP BID Zofran Odt (Ondansetron) 4 Mg Tab.rapdis 4 Mg PO Q6HRS PRN Sensipar (Cinacalcet Hcl) 30 Mg Tablet 1 Tab PO DAILY Renvela (Sevelamer Carbonate) 2.4 Gm Powd.pack 2.4 Gm PO TIDWMEALS Lumigan (Bimatoprost) 2.5 Ml Drops 1 Drop EACHEYE QHS Calcitriol 0.25 Mcg Capsule 1 Cap PO DAILY Nephro-Roland Tablet (Folic Acid/Vitamin B Comp W-C) 0.8 Mg Tablet 1 Tab PO DAILYBFRSUP Vitamin D (Cholecalciferol (Vitamin D3)) 2,000 Unit Capsule 1 Cap PO DAILY Vitals/I & O Vital Sign - Last 24 Hours 07/27/18 07/27/18 07/27/18 07/27/18 14:40 17:03 17:24 19:39 Temp 97.2 97.2 Pulse 80 Resp 20 B/P (MAP) 140/63 (88) 140/63 Pulse Ox 97 97 O2 Delivery Room Air Room Air Room Air 07/27/18 07/27/18 07/27/18 07/28/18 19:50 20:48 23:27 03:27 Temp 97.5 97.8 98.0 97.5 97.8 98.0 Pulse 81 76 96 Resp 18 18 16 B/P (MAP) 126/59 (81) 143/61 (88) 120/55 (76) Pulse Ox 96 97 96 97 O2 Delivery Room Air Room Air Room Air Room Air 07/28/18 07/28/18 07/28/18 07/28/18 05:10 07:25 08:00 08:11 Temp 97.3 97.3 Pulse 96 78 Resp 18 B/P (MAP) 120/55 118/49 (72) Pulse Ox 96 97 O2 Delivery Room Air Room Air Room Air O2 Flow Rate 2.0 07/28/18 07/28/18 07/28/18 08:54 11:00 11:48 Temp 97.9 97.9 Pulse 78 82 Resp 18 B/P (MAP) 118/49 134/66 (88) Pulse Ox 96 97 O2 Delivery Room Air Room Air Intake and Output 07/27/18 07/27/18 07/28/18 15:00 23:00 07:00 Intake Total 220 ml Balance 220 ml DAY ROSADO MD Jul 28, 2018 13:54
--- NOTE | 2018-07-28 14:02 | NUR ---
SS following up with discharge planning. Peer to peer scheduled at 1445 for LTAC denial. SS will await peer to peer results and will proceed accordingly. SS awaiting updated PT/OT notes and will fax clinical updates to [facility], ; fax [phone]. SS discussed with pt and pt's daughter in room. Pt's RN notified.
--- NOTE | 2018-07-28 14:06 | PDOC ---
Renal-Progress Notes Subjective Notes Notes FEELING BETTER History of Present Illness Hx of present illness IMPROVED Vitals Vitals Vital Signs Date Time Temp Pulse Resp B/P (MAP) Pulse Ox O2 Delivery O2 Flow Rate FiO2 07/28/18 11:48 97 Room Air 07/28/18 11:00 97.9 82 18 134/66 (88) 97.9 07/28/18 08:00 2.0 Weight Weight [ ] I.O. Intake and Output Intake and Output 07/28/18 07:00 Intake Total 220 ml Balance 220 ml Intake Oral 220 ml # Bowel Movements 4 Labs Labs Laboratory Tests Test 07/27/18 14:45 07/27/18 17:16 07/27/18 20:47 07/28/18 00:01 White Blood Count 14.5 x10^3/uL (4.0-11.0) Red Blood Count 3.15 x10^6/uL (3.50-5.40) Hemoglobin 10.7 g/dL (12.0-15.5) Hematocrit 32.7 % (36.0-47.0) Mean Corpuscular Volume 104 fL (79-100) Mean Corpuscular Hemoglobin 34 pg (25-35) Mean Corpuscular Hemoglobin Concent 33 g/dL (31-37) Red Cell Distribution Width 15.7 % (11.5-14.5) Platelet Count 170 x10^3/uL (140-400) Neutrophils (%) (Auto) 88 % (31-73) Lymphocytes (%) (Auto) 8 % (24-48) Monocytes (%) (Auto) 4 % (0-9) Eosinophils (%) (Auto) 0 % (0-3) Basophils (%) (Auto) 1 % (0-3) Neutrophils # (Auto) 12.8 x10^3uL (1.8-7.7) Lymphocytes # (Auto) 1.1 x10^3/uL (1.0-4.8) Monocytes # (Auto) 0.5 x10^3/uL (0.0-1.1) Eosinophils # (Auto) 0.0 x10^3/uL (0.0-0.7) Basophils # (Auto) 0.1 x10^3/uL (0.0-0.2) Glucose (Fingerstick) 336 mg/dL (70-99) 311 mg/dL (70-99) Heparin Anti-Xa Act, Unfractionated 0.51 IU/mL (0.30-0.70) Test 07/28/18 05:00 07/28/18 07:03 07/28/18 11:26 White Blood Count 17.9 x10^3/uL (4.0-11.0) Red Blood Count 3.11 x10^6/uL (3.50-5.40) Hemoglobin 10.6 g/dL (12.0-15.5) Hematocrit 32.4 % (36.0-47.0) Mean Corpuscular Volume 104 fL (79-100) Mean Corpuscular Hemoglobin 34 pg (25-35) Mean Corpuscular Hemoglobin Concent 33 g/dL (31-37) Red Cell Distribution Width 16.2 % (11.5-14.5) Platelet Count 160 x10^3/uL (140-400) Neutrophils (%) (Auto) 91 % (31-73) Lymphocytes (%) (Auto) 5 % (24-48) Monocytes (%) (Auto) 3 % (0-9) Eosinophils (%) (Auto) 0 % (0-3) Basophils (%) (Auto) 0 % (0-3) Neutrophils # (Auto) 16.3 x10^3uL (1.8-7.7) Lymphocytes # (Auto) 0.9 x10^3/uL (1.0-4.8) Monocytes # (Auto) 0.6 x10^3/uL (0.0-1.1) Eosinophils # (Auto) 0.0 x10^3/uL (0.0-0.7) Basophils # (Auto) 0.1 x10^3/uL (0.0-0.2) Prothrombin Time 19.0 SEC (11.7-14.0) Prothromb Time International Ratio 1.6 (0.8-1.1) Activated Partial Thromboplast Time > 150 SEC (24-38) Heparin Anti-Xa Act, Unfractionated 0.60 IU/mL (0.30-0.70) Sodium Level 130 mmol/L (136-145) Potassium Level 4.6 mmol/L (3.5-5.1) Chloride Level 93 mmol/L (98-107) Carbon Dioxide Level 27 mmol/L (21-32) Anion Gap 10 (6-14) Blood Urea Nitrogen 44 mg/dL (7-20) Creatinine 3.2 mg/dL (0.6-1.0) Estimated GFR (Cockcroft-Gault) 13.7 BUN/Creatinine Ratio 14 (6-20) Glucose Level 360 mg/dL (70-99) Calcium Level 7.9 mg/dL (8.5-10.1) Total Bilirubin 1.2 mg/dL (0.2-1.0) Aspartate Amino Transf (AST/SGOT) 16 U/L (15-37) Alanine Aminotransferase (ALT/SGPT) 17 U/L (14-59) Alkaline Phosphatase 144 U/L (46-116) Total Protein 5.7 g/dL (6.4-8.2) Albumin 2.7 g/dL (3.4-5.0) Albumin/Globulin Ratio 0.9 (1.0-1.7) Glucose (Fingerstick) 344 mg/dL (70-99) 367 mg/dL (70-99) Review of Systems Constitutional: yes: weakness, alert Ears/Nose/Throat: Yes: dysphagia Cardiovascular: Yes no symptom reported Gastrointestional: Yes: constipation Genitourinary: Yes: no symptom reported Musculoskeletal: Yes: muscle stiffness Skin: Yes no symptom reported Psychiatric/Neurological: Yes: no symptom reported Endocrine: Yes: no symptom reported Physical Exam General Appearance: no apparent distress Skin: warm Respiratory: decreased breath sounds Heart: S1S2, RRR Abdomen: soft Genitourinary: bladder flat, no mass Extremities: pulses present, no edema, atrophy Neurology: alert, follow commands Assessment Assessment IMP DYSPNEA HYPOTENSION HYPERVOLEMIA ESRD-TTS ANEMIA DECONDITIONING DM II DYSPHAGIA PLAN HD TOMORROW MIDODRINE DOING BETTER UPDATED DAUGHTER NEEDS LTAC NANCY CALERO MD Jul 28, 2018 14:06
--- NOTE | 2018-07-28 14:17 | PDOC ---
CARDIO Progress Notes Date and Time Date of Service 07/28/18 Time of Evaluation 1410 Subjective Subjective: No Chest Pain, No shortness of breath, No Palpitations Vitals Vitals Vital Signs Date Time Temp Pulse Resp B/P (MAP) Pulse Ox O2 Delivery O2 Flow Rate FiO2 07/28/18 11:48 97 Room Air 07/28/18 11:00 97.9 82 18 134/66 (88) 97.9 07/28/18 08:00 2.0 Weight Weight [ ] Input and Output Intake and Output Intake and Output 07/28/18 06:59 Intake Total 220 ml Balance 220 ml Intake Oral 220 ml # Bowel Movements 4 Laboratory Labs Laboratory Tests Test 07/27/18 14:45 07/27/18 17:16 07/27/18 20:47 07/28/18 00:01 White Blood Count 14.5 x10^3/uL (4.0-11.0) Red Blood Count 3.15 x10^6/uL (3.50-5.40) Hemoglobin 10.7 g/dL (12.0-15.5) Hematocrit 32.7 % (36.0-47.0) Mean Corpuscular Volume 104 fL (79-100) Mean Corpuscular Hemoglobin 34 pg (25-35) Mean Corpuscular Hemoglobin Concent 33 g/dL (31-37) Red Cell Distribution Width 15.7 % (11.5-14.5) Platelet Count 170 x10^3/uL (140-400) Neutrophils (%) (Auto) 88 % (31-73) Lymphocytes (%) (Auto) 8 % (24-48) Monocytes (%) (Auto) 4 % (0-9) Eosinophils (%) (Auto) 0 % (0-3) Basophils (%) (Auto) 1 % (0-3) Neutrophils # (Auto) 12.8 x10^3uL (1.8-7.7) Lymphocytes # (Auto) 1.1 x10^3/uL (1.0-4.8) Monocytes # (Auto) 0.5 x10^3/uL (0.0-1.1) Eosinophils # (Auto) 0.0 x10^3/uL (0.0-0.7) Basophils # (Auto) 0.1 x10^3/uL (0.0-0.2) Glucose (Fingerstick) 336 mg/dL (70-99) 311 mg/dL (70-99) Heparin Anti-Xa Act, Unfractionated 0.51 IU/mL (0.30-0.70) Test 07/28/18 05:00 07/28/18 07:03 07/28/18 11:26 White Blood Count 17.9 x10^3/uL (4.0-11.0) Red Blood Count 3.11 x10^6/uL (3.50-5.40) Hemoglobin 10.6 g/dL (12.0-15.5) Hematocrit 32.4 % (36.0-47.0) Mean Corpuscular Volume 104 fL (79-100) Mean Corpuscular Hemoglobin 34 pg (25-35) Mean Corpuscular Hemoglobin Concent 33 g/dL (31-37) Red Cell Distribution Width 16.2 % (11.5-14.5) Platelet Count 160 x10^3/uL (140-400) Neutrophils (%) (Auto) 91 % (31-73) Lymphocytes (%) (Auto) 5 % (24-48) Monocytes (%) (Auto) 3 % (0-9) Eosinophils (%) (Auto) 0 % (0-3) Basophils (%) (Auto) 0 % (0-3) Neutrophils # (Auto) 16.3 x10^3uL (1.8-7.7) Lymphocytes # (Auto) 0.9 x10^3/uL (1.0-4.8) Monocytes # (Auto) 0.6 x10^3/uL (0.0-1.1) Eosinophils # (Auto) 0.0 x10^3/uL (0.0-0.7) Basophils # (Auto) 0.1 x10^3/uL (0.0-0.2) Prothrombin Time 19.0 SEC (11.7-14.0) Prothromb Time International Ratio 1.6 (0.8-1.1) Activated Partial Thromboplast Time > 150 SEC (24-38) Heparin Anti-Xa Act, Unfractionated 0.60 IU/mL (0.30-0.70) Sodium Level 130 mmol/L (136-145) Potassium Level 4.6 mmol/L (3.5-5.1) Chloride Level 93 mmol/L (98-107) Carbon Dioxide Level 27 mmol/L (21-32) Anion Gap 10 (6-14) Blood Urea Nitrogen 44 mg/dL (7-20) Creatinine 3.2 mg/dL (0.6-1.0) Estimated GFR (Cockcroft-Gault) 13.7 BUN/Creatinine Ratio 14 (6-20) Glucose Level 360 mg/dL (70-99) Calcium Level 7.9 mg/dL (8.5-10.1) Total Bilirubin 1.2 mg/dL (0.2-1.0) Aspartate Amino Transf (AST/SGOT) 16 U/L (15-37) Alanine Aminotransferase (ALT/SGPT) 17 U/L (14-59) Alkaline Phosphatase 144 U/L (46-116) Total Protein 5.7 g/dL (6.4-8.2) Albumin 2.7 g/dL (3.4-5.0) Albumin/Globulin Ratio 0.9 (1.0-1.7) Glucose (Fingerstick) 344 mg/dL (70-99) 367 mg/dL (70-99) Review of Systems Constitutional: yes: weakness, alert Ears/Nose/Throat: Yes: dysphagia Cardiovascular: Yes no symptom reported Gastrointestional: Yes: constipation Genitourinary: Yes: no symptom reported Musculoskeletal: Yes: muscle stiffness Skin: Yes no symptom reported Psychiatric/Neurological: Yes: no symptom reported Endocrine: Yes: no symptom reported Physical Exam HEENT: Neck Supple W Full Motion Chest: Symmetric LUNGS: Other (diminished bases) Heart: S1S2, irregularly irregular (AFIB rate controlled) Extremities: Other (trace LE edema) Neurology: alert, follow commands Assessment Assessment 1. Hypotension. Off dopamine. BP maintaining. Echocardiogram with an LV ejection fraction 40% with severe tricuspid regurgitation. Continue midodrine 2. H/o CAD s/p CABG CABG. Ejection fraction of 40% as above. CP free 3. History of hypertension. Now with resistant hypotension as noted above. 4. ESRD . HD as per the renal service 5. Chronic diastolic HF; appears compensated 6. Probable PNA 7. DM, II; uncontrolled. as per PCP 8. Persistent AFIB; rate controlled without therapy. ASA for stroke prophylaxis. Poor candidate for OAC DOMINIC AMARO APRN Jul 28, 2018 14:17
[2018-07-28 14:49] VITALS: BP 126/66
[2018-07-28] MEDS: ANTI-COAG MONITOR BY PHARMACY. MC PRN (15:54)
[2018-07-28 19:21] VITALS: BP 152/81
[2018-07-28] MEDS: AMINO AC 3%/ELECTROLYTE/GLYCER 1,000 ML IV SCH (21:12)
[2018-07-28] MEDS: LATANOPROST 0.005% OPHTH SOLUTION 2.5ML BOTTLE. OU SCH (21:16)
[2018-07-28] MEDS: INSULIN GLARGINE 300 UNITS/3 ML INSULN.PEN. SQ SCH (21:20)
[2018-07-28 22:05] VITALS: BP 127/61
[2018-07-29 03:18] VITALS: BP 130/74
[2018-07-29] MEDS: HEPARIN 25,000UTS/500ML PREMIX 500 ML IV PRN (03:52)
[2018-07-29] MEDS: methylPREDNISolone SOD SUCC PF 40 MG/ML VIAL. IV SCH ×3 (05:17→21:56)
[2018-07-29] MEDS: MIDODRINE 2.5 MG TABLET PO SCH ×3 (05:43→18:26)
[2018-07-29 05:55] LABS: BASO # 0.1 x10^3/uL (0.0-0.2); BASO % 1 % (0-3); EOS % 0 % (0-3); HEMATOCRIT 34.1 % (36.0-47.0); HEMOGLOBIN 11.2 g/dL (12.0-15.5); LYMPH # 1.1 x10^3/uL (1.0-4.8); LYMPH % 5 % (24-48); MEAN CORPUSCULAR HEMOGLOBIN 34 pg (25-35); MEAN CORPUSCULAR HGB CONC 33 g/dL (31-37); MEAN CORPUSCULAR VOLUME 105 fL (79-100); MONO # 0.9 x10^3/uL (0.0-1.1); MONO % 5 % (0-9); NEUT # 17.9 x10^3uL (1.8-7.7); NEUT % 89 % (31-73); PLATELET COUNT 168 x10^3/uL (140-400); RED BLOOD COUNT 3.25 x10^6/uL (3.50-5.40); RED CELL DISTRIBUTION WIDTH 16.2 % (11.5-14.5)
[2018-07-29 06:42] LABS: ALBUMIN 2.7 g/dL (3.4-5.0); ALBUMIN/GLOBULIN RATIO 0.8 (1.0-1.7); CALCIUM 7.9 mg/dL (8.5-10.1); CREATININE 3.8 mg/dL (0.6-1.0); GFR 11.3; POTASSIUM 4.7 mmol/L (3.5-5.1); TOTAL BILIRUBIN 1.2 mg/dL (0.2-1.0); TOTAL PROTEIN 5.9 g/dL (6.4-8.2)
[2018-07-29 07:00] VITALS: BP 137/60
[2018-07-29] MEDS: IPRATRPIUM/ALBUTEROL 0.5/2.5MG 3 ML NEBU. NEB SCH ×4 (07:30→20:02)
--- NOTE | 2018-07-29 07:49 | PDOC ---
Infectious Disease Note Subjective Subjective Feeling better Had a good night. cough is slightly better No F/C/S/N/V/D/Rash ROS ROS o/w neg Vital Sign Vital Signs Vital Signs Date Time Temp Pulse Resp B/P (MAP) Pulse Ox O2 Delivery O2 Flow Rate FiO2 07/29/18 07:30 100 Room Air 07/29/18 07:00 97.5 76 19 137/60 (85) 97.5 07/28/18 19:20 2.0 Physical Exam PHYSICAL EXAM GENERAL: Propped up in bed, awake, Looks well HEENT: anicteric getting breathing treatment LUNGS: Mild congestion - bilat HEART: S1, S2. ABDOMEN: , soft and nontender. EXTREMITIES: No edema, no cyanosis. SKIN: No generalized rash. Chronic skin changes present in both lower extremities. DECK MATE: Awake, appropriate RIJ (07/25) without signs of any complications AVF bandaged/bleeding Labs Lab Laboratory Tests Test 07/28/18 11:26 07/28/18 17:16 07/28/18 20:42 07/29/18 05:40 Glucose (Fingerstick) 367 mg/dL (70-99) 347 mg/dL (70-99) 306 mg/dL (70-99) White Blood Count 20.0 x10^3/uL (4.0-11.0) Red Blood Count 3.25 x10^6/uL (3.50-5.40) Hemoglobin 11.2 g/dL (12.0-15.5) Hematocrit 34.1 % (36.0-47.0) Mean Corpuscular Volume 105 fL (79-100) Mean Corpuscular Hemoglobin 34 pg (25-35) Mean Corpuscular Hemoglobin Concent 33 g/dL (31-37) Red Cell Distribution Width 16.2 % (11.5-14.5) Platelet Count 168 x10^3/uL (140-400) Neutrophils (%) (Auto) 89 % (31-73) Lymphocytes (%) (Auto) 5 % (24-48) Monocytes (%) (Auto) 5 % (0-9) Eosinophils (%) (Auto) 0 % (0-3) Basophils (%) (Auto) 1 % (0-3) Neutrophils # (Auto) 17.9 x10^3uL (1.8-7.7) Lymphocytes # (Auto) 1.1 x10^3/uL (1.0-4.8) Monocytes # (Auto) 0.9 x10^3/uL (0.0-1.1) Eosinophils # (Auto) 0.0 x10^3/uL (0.0-0.7) Basophils # (Auto) 0.1 x10^3/uL (0.0-0.2) Heparin Anti-Xa Act, Unfractionated 0.85 IU/mL (0.30-0.70) Sodium Level 128 mmol/L (136-145) Potassium Level 4.7 mmol/L (3.5-5.1) Chloride Level 89 mmol/L (98-107) Carbon Dioxide Level 23 mmol/L (21-32) Anion Gap 16 (6-14) Blood Urea Nitrogen 59 mg/dL (7-20) Creatinine 3.8 mg/dL (0.6-1.0) Estimated GFR (Cockcroft-Gault) 11.3 BUN/Creatinine Ratio 16 (6-20) Glucose Level 240 mg/dL (70-99) Calcium Level 7.9 mg/dL (8.5-10.1) Total Bilirubin 1.2 mg/dL (0.2-1.0) Aspartate Amino Transf (AST/SGOT) 16 U/L (15-37) Alanine Aminotransferase (ALT/SGPT) 16 U/L (14-59) Alkaline Phosphatase 144 U/L (46-116) Total Protein 5.9 g/dL (6.4-8.2) Albumin 2.7 g/dL (3.4-5.0) Albumin/Globulin Ratio 0.8 (1.0-1.7) Test 07/29/18 07:19 Glucose (Fingerstick) 236 mg/dL (70-99) Objective Assessment Dyspnea with cough and bronchospasm with recent viral pneumonia with possible secondary infection- improving off abx Leukocytosis, on steroids. End-stage renal disease, on hemodialysis. Obesity. Chronic hypoxic respiratory failure, on home O2 at 2 liters. Anemia of chronic kidney disease. ? aspiration Plan Plan of Care Doing well ID to sign off D/w nursing TRACY HERNANDEZ MD Jul 29, 2018 07:49
[2018-07-29 08:21] LABS: % LYMPHS 2 % (24-48); % MONOS 4 % (0-10); % SEGS 94 % (35-66); PLT ESTIMATE ADEQUATE (ADEQUATE)
[2018-07-29 08:25] LABS: TEAR DROP CELLS OCC
[2018-07-29 08:26] LABS: ANISOCYTOSIS SLIGHT
--- NOTE | 2018-07-29 08:26 | NUR ---
SS following up with discharge planning. [facility] upheld denial from peer to peer with Dr. Acosta for [facility]. SS phoned and faxed referral to [facility], ; fax [phone]. [facility] notified SS that pt will need to be off PPN and Heparin drip prior to coming for skilled services. Pt's RN notified. SS will await insurance determination from [facility] for prison unit and will proceed accordingly.
[2018-07-29] MEDS: CALCITRIOL 0.25 MCG CAPSULE. PO SCH (08:32)
[2018-07-29] MEDS: SEVELAMER CARBONATE 2.4 GM PACKET. PO SCH ×3 (08:32→17:00)
[2018-07-29] MEDS: guaiFENesin DM 200MG/20MG 10 ML SYRUP PO SCH ×4 (08:32→21:53)
[2018-07-29] MEDS: PANTOPRAZOLE 40 MG TABLET.DR. PO SCH (08:32)
[2018-07-29] MEDS: CINACALCET HCL 30 MG TABLET PO SCH (08:32)
[2018-07-29] MEDS: CHOLECALCIFEROL (VITAMIN D3) 1,000 UNIT TABLET PO SCH (08:32)
[2018-07-29] MEDS: ASPIRIN 325 MG TABLET PO SCH (08:33)
[2018-07-29] MEDS: LACTOBACILLUS RHAMNOSUS GG 1 CAPSULE. PO SCH ×2 (08:33→21:57)
[2018-07-29] MEDS: DICLOFENAC SODIUM 1% TOPICAL GEL 100GM TUBE. TP SCH ×2 (08:34→21:55)
[2018-07-29] MEDS: POLYETHYLENE GLYCOL 3350 17 GM PACKET. PO SCH ×2 (08:36→21:57)
[2018-07-29] MEDS: INSULIN LISPRO 300 UNITS/3 ML INSULN.PEN. SQ SCH ×6 (08:45→17:00)
[2018-07-29] MEDS: SENNOSIDES 8.6 MG TABLET PO SCH (08:46)
[2018-07-29] MEDS: DOCUSATE SODIUM 100 MG CAPSULE. PO SCH ×2 (08:46→21:00)
--- NOTE | 2018-07-29 08:58 | PDOC ---
PROGRESS NOTES Chief Complaint Chief Complaint SOA, fluid overload and treating HCAP ESRD on dialysis-did not finish dialysis Existing AV fistula Hypotension, resolved now hypertension Anemia of chronic disease severe Generalized weakness SNU resident Diabetes type 2 on low-dose insulin uncontrolled// inc lantus to 14 units sq hs symptomatic with lethargy hypotension dysphagia, malnutrition MARKED DEBILITY, WEAKNESS Penetration of thin liquids w/ large drinks via cup, chin tuck and straw drinking were observed. Decreasing bolus size, keeping head in neutral position and alternating or utilizing a dry swallow were all effective strategies. No aspiration was observed during this evaluation. 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 Dysphagia and aspiration She is due for dialysis today . MOD-SEVERE protein-caloric malnutrition - on PPN, eating 50% and more from her meals, may benefit from backing off PPN as she is getting fluid overloaded. Vitals Vitals Vital Signs Date Time Temp Pulse Resp B/P (MAP) Pulse Ox O2 Delivery O2 Flow Rate FiO2 07/29/18 07:30 100 Room Air 07/29/18 07:00 97.5 76 19 137/60 (85) 97.5 07/28/18 19:20 2.0 Physical Exam Physical Exam GENERAL: Propped up in bed, awake, Looks well HEENT: anicteric getting breathing treatment LUNGS: Mild congestion - bilat HEART: S1, S2. ABDOMEN: , soft and nontender. EXTREMITIES: No edema, no cyanosis. SKIN: No generalized rash. Chronic skin changes present in both lower extremities. MC KAY STITCHER: Awake, appropriate RIJ (07/25) without signs of any complications AVF bandaged/bleeding General: Alert, Oriented X3, Cooperative, No acute distress Heart: Regular rate, Normal S1, Normal S2, No murmurs, Gallops Lungs: Wheezing, Crackles (less crackles) Abdomen: Normal bowel sounds, Soft, No tenderness, No hepatosplenomegaly, No masses Extremities: No clubbing, No cyanosis, No edema, Normal pulses, No tenderness/ swelling Skin: No rashes, No breakdown, No significant lesion Labs LABS Laboratory Tests Test 07/28/18 11:26 07/28/18 17:16 07/28/18 20:42 07/29/18 05:40 Glucose (Fingerstick) 367 mg/dL (70-99) 347 mg/dL (70-99) 306 mg/dL (70-99) White Blood Count 20.0 x10^3/uL (4.0-11.0) Red Blood Count 3.25 x10^6/uL (3.50-5.40) Hemoglobin 11.2 g/dL (12.0-15.5) Hematocrit 34.1 % (36.0-47.0) Mean Corpuscular Volume 105 fL (79-100) Mean Corpuscular Hemoglobin 34 pg (25-35) Mean Corpuscular Hemoglobin Concent 33 g/dL (31-37) Red Cell Distribution Width 16.2 % (11.5-14.5) Platelet Count 168 x10^3/uL (140-400) Neutrophils (%) (Auto) 89 % (31-73) Lymphocytes (%) (Auto) 5 % (24-48) Monocytes (%) (Auto) 5 % (0-9) Eosinophils (%) (Auto) 0 % (0-3) Basophils (%) (Auto) 1 % (0-3) Neutrophils # (Auto) 17.9 x10^3uL (1.8-7.7) Lymphocytes # (Auto) 1.1 x10^3/uL (1.0-4.8) Monocytes # (Auto) 0.9 x10^3/uL (0.0-1.1) Eosinophils # (Auto) 0.0 x10^3/uL (0.0-0.7) Basophils # (Auto) 0.1 x10^3/uL (0.0-0.2) Segmented Neutrophils % 94 % (35-66) Lymphocytes % 2 % (24-48) Monocytes % 4 % (0-10) Platelet Estimate Adequate (ADEQUATE) Large Platelets Occ Anisocytosis Slight Macrocytosis Slight Tear Drop Cells Occ Heparin Anti-Xa Act, Unfractionated 0.85 IU/mL (0.30-0.70) Sodium Level 128 mmol/L (136-145) Potassium Level 4.7 mmol/L (3.5-5.1) Chloride Level 89 mmol/L (98-107) Carbon Dioxide Level 23 mmol/L (21-32) Anion Gap 16 (6-14) Blood Urea Nitrogen 59 mg/dL (7-20) Creatinine 3.8 mg/dL (0.6-1.0) Estimated GFR (Cockcroft-Gault) 11.3 BUN/Creatinine Ratio 16 (6-20) Glucose Level 240 mg/dL (70-99) Calcium Level 7.9 mg/dL (8.5-10.1) Total Bilirubin 1.2 mg/dL (0.2-1.0) Aspartate Amino Transf (AST/SGOT) 16 U/L (15-37) Alanine Aminotransferase (ALT/SGPT) 16 U/L (14-59) Alkaline Phosphatase 144 U/L (46-116) Total Protein 5.9 g/dL (6.4-8.2) Albumin 2.7 g/dL (3.4-5.0) Albumin/Globulin Ratio 0.8 (1.0-1.7) Test 07/29/18 07:19 Glucose (Fingerstick) 236 mg/dL (70-99) Assessment and Plan Assessmemt and Plan Problems Medical Problems: (1) Congestive heart failure Status: Acute Comment Review of Relevant I have reviewed the following items smith (where applicable) has been applied. Labs Laboratory Tests Test 07/27/18 12:09 07/27/18 14:45 07/27/18 17:16 07/27/18 20:47 Glucose (Fingerstick) 302 mg/dL (70-99) 336 mg/dL (70-99) 311 mg/dL (70-99) White Blood Count 14.5 x10^3/uL (4.0-11.0) Red Blood Count 3.15 x10^6/uL (3.50-5.40) Hemoglobin 10.7 g/dL (12.0-15.5) Hematocrit 32.7 % (36.0-47.0) Mean Corpuscular Volume 104 fL (79-100) Mean Corpuscular Hemoglobin 34 pg (25-35) Mean Corpuscular Hemoglobin Concent 33 g/dL (31-37) Red Cell Distribution Width 15.7 % (11.5-14.5) Platelet Count 170 x10^3/uL (140-400) Neutrophils (%) (Auto) 88 % (31-73) Lymphocytes (%) (Auto) 8 % (24-48) Monocytes (%) (Auto) 4 % (0-9) Eosinophils (%) (Auto) 0 % (0-3) Basophils (%) (Auto) 1 % (0-3) Neutrophils # (Auto) 12.8 x10^3uL (1.8-7.7) Lymphocytes # (Auto) 1.1 x10^3/uL (1.0-4.8) Monocytes # (Auto) 0.5 x10^3/uL (0.0-1.1) Eosinophils # (Auto) 0.0 x10^3/uL (0.0-0.7) Basophils # (Auto) 0.1 x10^3/uL (0.0-0.2) Test 07/28/18 00:01 07/28/18 05:00 07/28/18 07:03 07/28/18 11:26 Heparin Anti-Xa Act, Unfractionated 0.51 IU/mL (0.30-0.70) 0.60 IU/mL (0.30-0.70) White Blood Count 17.9 x10^3/uL (4.0-11.0) Red Blood Count 3.11 x10^6/uL (3.50-5.40) Hemoglobin 10.6 g/dL (12.0-15.5) Hematocrit 32.4 % (36.0-47.0) Mean Corpuscular Volume 104 fL (79-100) Mean Corpuscular Hemoglobin 34 pg (25-35) Mean Corpuscular Hemoglobin Concent 33 g/dL (31-37) Red Cell Distribution Width 16.2 % (11.5-14.5) Platelet Count 160 x10^3/uL (140-400) Neutrophils (%) (Auto) 91 % (31-73) Lymphocytes (%) (Auto) 5 % (24-48) Monocytes (%) (Auto) 3 % (0-9) Eosinophils (%) (Auto) 0 % (0-3) Basophils (%) (Auto) 0 % (0-3) Neutrophils # (Auto) 16.3 x10^3uL (1.8-7.7) Lymphocytes # (Auto) 0.9 x10^3/uL (1.0-4.8) Monocytes # (Auto) 0.6 x10^3/uL (0.0-1.1) Eosinophils # (Auto) 0.0 x10^3/uL (0.0-0.7) Basophils # (Auto) 0.1 x10^3/uL (0.0-0.2) Prothrombin Time 19.0 SEC (11.7-14.0) Prothromb Time International Ratio 1.6 (0.8-1.1) Activated Partial Thromboplast Time > 150 SEC (24-38) Sodium Level 130 mmol/L (136-145) Potassium Level 4.6 mmol/L (3.5-5.1) Chloride Level 93 mmol/L (98-107) Carbon Dioxide Level 27 mmol/L (21-32) Anion Gap 10 (6-14) Blood Urea Nitrogen 44 mg/dL (7-20) Creatinine 3.2 mg/dL (0.6-1.0) Estimated GFR (Cockcroft-Gault) 13.7 BUN/Creatinine Ratio 14 (6-20) Glucose Level 360 mg/dL (70-99) Calcium Level 7.9 mg/dL (8.5-10.1) Total Bilirubin 1.2 mg/dL (0.2-1.0) Aspartate Amino Transf (AST/SGOT) 16 U/L (15-37) Alanine Aminotransferase (ALT/SGPT) 17 U/L (14-59) Alkaline Phosphatase 144 U/L (46-116) Total Protein 5.7 g/dL (6.4-8.2) Albumin 2.7 g/dL (3.4-5.0) Albumin/Globulin Ratio 0.9 (1.0-1.7) Glucose (Fingerstick) 344 mg/dL (70-99) 367 mg/dL (70-99) Test 07/28/18 17:16 07/28/18 20:42 07/29/18 05:40 07/29/18 07:19 Glucose (Fingerstick) 347 mg/dL (70-99) 306 mg/dL (70-99) 236 mg/dL (70-99) White Blood Count 20.0 x10^3/uL (4.0-11.0) Red Blood Count 3.25 x10^6/uL (3.50-5.40) Hemoglobin 11.2 g/dL (12.0-15.5) Hematocrit 34.1 % (36.0-47.0) Mean Corpuscular Volume 105 fL (79-100) Mean Corpuscular Hemoglobin 34 pg (25-35) Mean Corpuscular Hemoglobin Concent 33 g/dL (31-37) Red Cell Distribution Width 16.2 % (11.5-14.5) Platelet Count 168 x10^3/uL (140-400) Neutrophils (%) (Auto) 89 % (31-73) Lymphocytes (%) (Auto) 5 % (24-48) Monocytes (%) (Auto) 5 % (0-9) Eosinophils (%) (Auto) 0 % (0-3) Basophils (%) (Auto) 1 % (0-3) Neutrophils # (Auto) 17.9 x10^3uL (1.8-7.7) Lymphocytes # (Auto) 1.1 x10^3/uL (1.0-4.8) Monocytes # (Auto) 0.9 x10^3/uL (0.0-1.1) Eosinophils # (Auto) 0.0 x10^3/uL (0.0-0.7) Basophils # (Auto) 0.1 x10^3/uL (0.0-0.2) Segmented Neutrophils % 94 % (35-66) Lymphocytes % 2 % (24-48) Monocytes % 4 % (0-10) Platelet Estimate Adequate (ADEQUATE) Large Platelets Occ Anisocytosis Slight Macrocytosis Slight Tear Drop Cells Occ Heparin Anti-Xa Act, Unfractionated 0.85 IU/mL (0.30-0.70) Sodium Level 128 mmol/L (136-145) Potassium Level 4.7 mmol/L (3.5-5.1) Chloride Level 89 mmol/L (98-107) Carbon Dioxide Level 23 mmol/L (21-32) Anion Gap 16 (6-14) Blood Urea Nitrogen 59 mg/dL (7-20) Creatinine 3.8 mg/dL (0.6-1.0) Estimated GFR (Cockcroft-Gault) 11.3 BUN/Creatinine Ratio 16 (6-20) Glucose Level 240 mg/dL (70-99) Calcium Level 7.9 mg/dL (8.5-10.1) Total Bilirubin 1.2 mg/dL (0.2-1.0) Aspartate Amino Transf (AST/SGOT) 16 U/L (15-37) Alanine Aminotransferase (ALT/SGPT) 16 U/L (14-59) Alkaline Phosphatase 144 U/L (46-116) Total Protein 5.9 g/dL (6.4-8.2) Albumin 2.7 g/dL (3.4-5.0) Albumin/Globulin Ratio 0.8 (1.0-1.7) Laboratory Tests Test 07/28/18 11:26 07/28/18 17:16 07/28/18 20:42 07/29/18 05:40 Glucose (Fingerstick) 367 mg/dL (70-99) 347 mg/dL (70-99) 306 mg/dL (70-99) White Blood Count 20.0 x10^3/uL (4.0-11.0) Red Blood Count 3.25 x10^6/uL (3.50-5.40) Hemoglobin 11.2 g/dL (12.0-15.5) Hematocrit 34.1 % (36.0-47.0) Mean Corpuscular Volume 105 fL (79-100) Mean Corpuscular Hemoglobin 34 pg (25-35) Mean Corpuscular Hemoglobin Concent 33 g/dL (31-37) Red Cell Distribution Width 16.2 % (11.5-14.5) Platelet Count 168 x10^3/uL (140-400) Neutrophils (%) (Auto) 89 % (31-73) Lymphocytes (%) (Auto) 5 % (24-48) Monocytes (%) (Auto) 5 % (0-9) Eosinophils (%) (Auto) 0 % (0-3) Basophils (%) (Auto) 1 % (0-3) Neutrophils # (Auto) 17.9 x10^3uL (1.8-7.7) Lymphocytes # (Auto) 1.1 x10^3/uL (1.0-4.8) Monocytes # (Auto) 0.9 x10^3/uL (0.0-1.1) Eosinophils # (Auto) 0.0 x10^3/uL (0.0-0.7) Basophils # (Auto) 0.1 x10^3/uL (0.0-0.2) Segmented Neutrophils % 94 % (35-66) Lymphocytes % 2 % (24-48) Monocytes % 4 % (0-10) Platelet Estimate Adequate (ADEQUATE) Large Platelets Occ Anisocytosis Slight Macrocytosis Slight Tear Drop Cells Occ Heparin Anti-Xa Act, Unfractionated 0.85 IU/mL (0.30-0.70) Sodium Level 128 mmol/L (136-145) Potassium Level 4.7 mmol/L (3.5-5.1) Chloride Level 89 mmol/L (98-107) Carbon Dioxide Level 23 mmol/L (21-32) Anion Gap 16 (6-14) Blood Urea Nitrogen 59 mg/dL (7-20) Creatinine 3.8 mg/dL (0.6-1.0) Estimated GFR (Cockcroft-Gault) 11.3 BUN/Creatinine Ratio 16 (6-20) Glucose Level 240 mg/dL (70-99) Calcium Level 7.9 mg/dL (8.5-10.1) Total Bilirubin 1.2 mg/dL (0.2-1.0) Aspartate Amino Transf (AST/SGOT) 16 U/L (15-37) Alanine Aminotransferase (ALT/SGPT) 16 U/L (14-59) Alkaline Phosphatase 144 U/L (46-116) Total Protein 5.9 g/dL (6.4-8.2) Albumin 2.7 g/dL (3.4-5.0) Albumin/Globulin Ratio 0.8 (1.0-1.7) Test 07/29/18 07:19 Glucose (Fingerstick) 236 mg/dL (70-99) Medications Current Medications Albuterol/ Ipratropium (Duoneb) 3 ml 1X ONCE NEB Last administered on at 12:57; Start 07/19/18 at 12:45; Stop 07/19/18 at 12:46; Status DC Ondansetron HCl (Zofran) 4 mg PRN Q8HRS PRN IV NAUSEA/VOMITING; Start 07/19/18 at 14:30; Stop 07/20/18 at 14:29; Status DC Acetaminophen (Tylenol) 650 mg PRN Q4HRS PRN PO FEVER; Start 07/19/18 at 14:30 ; Stop 07/20/18 at 08:37; Status DC Nitroglycerin (Nitrostat) 0.4 mg PRN Q5MIN PRN SL CHEST PAIN; Start 07/19/18 at 14:30; Stop 07/20/18 at 14:29; Status DC Albuterol/ Ipratropium (Duoneb) 3 ml RTQID NEB ; Start 07/19/18 at 16:00; Stop 07/20/18 at 15:59; Status Cancel Aspirin (Tracee Aspirin) 325 mg DAILY PO Last administered on 07/29/18 08:33; Start 07/19/18 at 15:00 Carvedilol (Coreg) 3.125 mg BIDWMEALS PO ; Start 07/19/18 at 17:00; Stop at 19:42; Status DC Cinacalcet (Sensipar) 30 mg DAILY PO Last administered on 07/29/18 08:32; Start 07/19/18 at 15:00 Diclofenac Sodium (Voltaren) 1 grisel BID TP Last administered on 07/29/18 08:34; Start 07/19/18 at 21:00 Fentanyl (Duragesic 12mcg/ Hr Patch) 1 patch Q3DAYS TD ; Start 07/19/18 at 15:00 ; Stop 07/19/18 at 19:42; Status DC Vitamin B Complex/ Vitamin C (Bela-Roland) 1 tab DAILYBFRSUP PO Last administered on 07/28/18 08:53; Start 07/19/18 at 17:00 Ondansetron HCl (Zofran Odt) 4 mg PRN Q6HRS PRN PO NAUSEA/VOMITING; Start 07/19 at 14:45 Sevelamer Carbonate (Renvela) 2.4 gm TIDWMEALS PO Last administered on 08:32; Start 07/19/18 at 17:00 Acetaminophen (Tylenol) 500 mg PRN Q6HRS PRN PO MILD PAIN / TEMP; Start at 14:45 Latanoprost (Xalatan) 1 drop QHS OU Last administered on 07/28/18 21:16; Start 07/19/18 at 21:00 Calcitriol (Rocaltrol) 0.25 mcg DAILY PO Last administered on 07/29/18 08:32; Start 07/20/18 at 09:00 Vitamin D (Vitamin D3) 1,000 unit DAILY PO Last administered on 07/29/18 08:32 ; Start 07/20/18 at 09:00 Hydromorphone HCl (Dilaudid) 2 mg PRN Q8HRS PRN PO MODERATE PAIN, SEVERE PAIN; Start 07/19/18 at 15:00; Stop 07/20/18 at 09:31; Status DC Insulin Glargine (Lantus) 5 units QHS SQ Last administered on 07/26/18 21:46; Start 07/19/18 at 21:00; Stop 07/27/18 at 10:00; Status DC Non-Formulary Medication (Latanoprost/Pf (Latanoprost 0.005% Eye Drop)) 7.5 ml QHS OP ; Start 07/19/18 at 21:00; Status UNV Pantoprazole Sodium (Protonix) 40 mg DAILYAC PO Last administered on 07/24/18 11:17; Start 07/20/18 at 07:30; Stop 07/27/18 at 09:10; Status DC Piperacillin Sod/ Tazobactam Sod (Zosyn Per Pharmacy) 1 each PRN DAILY PRN MC SEE COMMENTS; Start 07/19/18 at 14:45; Stop 07/24/18 at 11:11; Status DC Albuterol/ Ipratropium (Duoneb) 3 ml RTQID NEB Last administered on 07/29/18 07 :30; Start 07/19/18 at 16:00 Guaifenesin (Robitussin Dm) 10 ml QID PO Last administered on 07/29/18 08:32; Start 07/19/18 at 17:00 Temazepam (Restoril) 7.5 mg PRN QHS PRN PO INSOMNIA Last administered on at 20:42; Start 07/19/18 at 14:45 Insulin Human Lispro (HumaLOG) 0-7 UNITS TIDWMEALS SQ Last administered on at 08:46; Start 07/19/18 at 17:00 Dextrose (Dextrose 50%-Water Syringe) 12.5 gm PRN Q15MIN PRN IV SEE COMMENTS; Start 07/19/18 at 14:45 Piperacillin Sod/ Tazobactam Sod 2.25 gm/Sodium Chloride 50 ml @ 100 mls/hr Q8H IV Last administered on 07/24/18at 00:10; Start 07/19/18 at 16:00; Stop at 08:08; Status DC Furosemide (Lasix) 40 mg 1X ONCE IVP Last administered on 07/19/18at 14:52; Start 07/19/18 at 14:45; Stop 07/19/18 at 14:52; Status DC Docusate Sodium (Colace) 100 mg BID PO Last administered on 07/28/18at 21:15; Start 07/19/18 at 21:00 Magnesium Hydroxide (Milk Of Magnesia) 2,400 mg PRN DAILY PRN PO CONSTIPATION; Start 07/19/18 at 19:45 Sodium Monofluorophosphate (Fleet Adult) 133 ml PRN DAILY PRN RC CONSTIPATION; Start 07/19/18 at 19:45; Stop 07/22/18 at 12:17; Status DC Bisacodyl (Dulcolax Supp) 10 mg PRN DAILY PRN MA CONSTIPATION 1ST CHOICE; Start 07/19/18 at 19:45 Polyethylene Glycol (miraLAX PACKET) 17 gm BID PO Last administered on at 08:36; Start 07/19/18 at 21:00 Sennosides (Senna) 8.6 mg DAILY PO Last administered on 07/24/18at 11:16; Start 07/20/18 at 09:00 Lactobacillus Rhamnosus (Culturelle) 1 cap BID PO Last administered on at 08:33; Start 07/20/18 at 21:00 Methylprednisolone Sodium Succinate (SOLU-Medrol 40MG VIAL) 40 mg Q8HRS IV Last administered on 07/29/18at 05:17; Start 07/20/18 at 14:00 Albumin Human 250 ml @ 62.5 mls/hr PRN Q6HRS PRN IV for MAP < 65 Last administered on 07/21/18at 20:45; Start 07/20/18 at 09:45 Magnesium Sulfate 50 ml @ 25 mls/hr PRN DAILY PRN IV for Mag < 1.7 on am labs; Start 07/20/18 at 09:45 Dopamine HCl/ Dextrose 250 ml @ 6.124 mls/ hr CONT PRN IV SEE I/O RECORD Last administered on 07/24/18at 20:37; Start 07/20/18 at 12:00; Stop 07/26/18 at 14:13 ; Status DC Sodium Chloride 1,000 ml @ 1,000 mls/hr Q1H PRN IV hypotension; Start 07/21/18 at 13:00; Stop 07/21/18 at 18:59; Status DC Sodium Chloride 1,000 ml @ 400 mls/hr Q2H30M PRN IV PATENCY; Start 07/21/18 at 13:00; Stop 07/22/18 at 00:59; Status DC Info (PHARMACY MONITORING -- do not chart) 1 each PRN DAILY PRN MC SEE COMMENTS ; Start 07/21/18 at 13:30; Status UNV Info (PHARMACY MONITORING -- do not chart) 1 each PRN DAILY PRN MC SEE COMMENTS ; Start 07/21/18 at 13:30; Stop 07/24/18 at 07:10; Status DC Albumin Human 100 ml @ 100 mls/hr 1X ONCE IV Last administered on 07/21/18at 14:00; Start 07/21/18 at 13:30; Stop 07/21/18 at 14:29; Status DC Sodium Chloride 500 ml @ 500 mls/hr 1X ONCE IV Last administered on at 11:14; Start 07/22/18 at 11:15; Stop 07/22/18 at 12:14; Status DC Digoxin (Lanoxin) 125 mcg QMWF@1600 PO ; Start 07/23/18 at 16:00; Stop 07/23/18 at 16:00; Status DC Digoxin (Lanoxin) 125 mcg 1X ONCE PO Last administered on 07/22/18at 12:26; Start 07/22/18 at 12:00; Stop 07/22/18 at 12:01; Status DC Midodrine (Proamatine) 2.5 mg [id number] PO Last administered on 07/28/18at 08:54; Start 07/22/18 at 13:00 Digoxin (Lanoxin) 125 mcg QTUTHSA PO Last administered on 07/26/18at 16:58; Start 07/24/18 at 16:00 Sodium Chloride 500 ml @ 500 mls/hr 1X ONCE IV Last administered on at 15:42; Start 07/23/18 at 15:00; Stop 07/23/18 at 15:59; Status DC Sodium Chloride 1,000 ml @ 1,000 mls/hr Q1H PRN IV hypotension; Start 07/24/18 at 06:59; Stop 07/24/18 at 12:58; Status DC Albumin Human 200 ml @ 200 mls/hr 1X PRN PRN IV Hypotension Last administered on 07/24/18at 08:09; Start 07/24/18 at 07:00; Stop 07/24/18 at 12:59; Status DC Sodium Chloride 1,000 ml @ 400 mls/hr Q2H30M PRN IV PATENCY; Start 07/24/18 at 06:59; Stop 07/24/18 at 18:58; Status DC Info (PHARMACY MONITORING -- do not chart) 1 each PRN DAILY PRN MC SEE COMMENTS ; Start 07/24/18 at 07:00; Stop 07/25/18 at 11:17; Status DC Info (PHARMACY MONITORING -- do not chart) 1 each PRN DAILY PRN MC SEE COMMENTS ; Start 07/24/18 at 07:00; Status UNV Amoxicillin/ Clavulanate Potassium (Augmentin 500/ 125mg) 1 tab BID PO Last administered on 07/24/18at 11:16; Start 07/24/18 at 09:00; Stop 07/25/18 at 09:21 ; Status DC Amino Acids/ Glycerin/ Electrolytes 1,000 ml @ 50 mls/hr Q20H IV Last administered on 07/28/18at 21:12; Start 07/24/18 at 17:00 Heparin Sodium/ Dextrose 500 ml @ 0 mls/hr CONT PRN IV SEE I/O RECORD; Start at 19:30; Status Cancel Heparin Sodium (Porcine) (Heparin Sodium) 6,850 unit 1X ONCE IV Last administered on 07/24/18at 19:38; Start 07/24/18 at 19:30; Stop 07/24/18 at 19:33 ; Status DC Heparin Sodium/ Dextrose 500 ml @ 0 mls/hr CONT PRN IV SEE I/O RECORD; Start at 19:30; Status UNV Heparin Sodium (Porcine) (Heparin Sodium) 2,550 unit PRN Q6HRS PRN IV FOR UFH LEVEL LESS THAN 0.2; Start 07/24/18 at 19:30 Heparin Sodium (Porcine) (Heparin Sodium) 1,300 unit PRN Q6HRS PRN IV FOR UFH LEVEL 0.2 - 0.29 Last administered on 07/25/18at 23:25; Start 07/24/18 at 19:30 Heparin Sodium/ Dextrose 500 ml @ 0 mls/hr CONT PRN IV SEE I/O RECORD Last administered on 07/29/18at 03:52; Start 07/24/18 at 19:45 Sodium Chloride 1,000 ml @ 1,000 mls/hr Q1H PRN IV hypotension; Start 07/25/18 at 08:22; Stop 07/25/18 at 14:21; Status DC Albumin Human 200 ml @ 200 mls/hr 1X ONCE IV Last administered on 07/25/18at 08:49; Start 07/25/18 at 08:30; Stop 07/25/18 at 09:29; Status DC Diphenhydramine HCl (Benadryl) 25 mg 1X PRN PRN IV ITCHING; Start 07/25/18 at 08:30; Stop 07/26/18 at 08:29; Status DC Diphenhydramine HCl (Benadryl) 25 mg 1X PRN PRN IV ITCHING; Start 07/25/18 at 08:30; Stop 07/26/18 at 08:29; Status DC Sodium Chloride 1,000 ml @ 400 mls/hr Q2H30M PRN IV PATENCY; Start 07/25/18 at 08:22; Stop 07/25/18 at 20:21; Status DC Info (PHARMACY MONITORING -- do not chart) 1 each PRN DAILY PRN MC SEE COMMENTS ; Start 07/25/18 at 08:30; Stop 07/26/18 at 14:10; Status DC Piperacillin Sod/ Tazobactam Sod 2.25 gm/Sodium Chloride 50 ml @ 100 mls/hr Q8HRS IV Last administered on 07/28/18at 05:07; Start 07/25/18 at 09:30; Stop 07/28/18 at 09:31; Status DC Info (Anti-Coagulation Monitoring By Pharmacy) 1 each PRN DAILY PRN MC SEE COMMENTS Last administered on 07/28/18at 15:54; Start 07/25/18 at 11:30 Info (PHARMACY MONITORING -- do not chart) 1 each PRN DAILY PRN MC SEE COMMENTS ; Start 07/26/18 at 08:15 Info (PHARMACY MONITORING -- do not chart) 1 each PRN DAILY PRN MC SEE COMMENTS ; Start 07/26/18 at 08:15; Stop 07/26/18 at 08:17; Status DC Barium Sulfate (Varibar Thin Liquid Apple) 148 gm 1X ONCE PO Last administered on 07/26/18at 13:30; Start 07/26/18 at 13:30; Stop 07/26/18 at 13:31 ; Status DC Pantoprazole Sodium (PROTONIX VIAL for IV PUSH) 40 mg DAILYAC IVP Last administered on 07/28/18at 07:54; Start 07/27/18 at 11:30; Stop 07/28/18 at 10:43; Status DC Insulin Glargine (Lantus) 9 units QHS SQ Last administered on 07/27/18at 20:52; Start 07/27/18 at 21:00; Stop 07/28/18 at 14:03; Status DC Insulin Human Lispro (HumaLOG) 4 units TIDWMEALS SQ Last administered on at 08:45; Start 07/27/18 at 12:00 Pantoprazole Sodium (Protonix) 40 mg DAILYAC PO Last administered on 07/29/18at 08:32; Start 07/29/18 at 07:30 Insulin Glargine (Lantus) 14 units QHS SQ Last administered on 07/28/18at 21:20; Start 07/28/18 at 21:00 Active Scripts Active Levemir (Insulin Detemir) 100 Unit/1 Ml Vial 5 Unit SQ QHS 30 Days Hold for < 140mg/dL Aspirin 325 Mg Tablet 1 Tab PO DAILY Reported Amlodipine Besylate 10 Mg Tablet 10 Mg PO DAILY Tylenol (Acetaminophen) 325 Mg Tablet 2 Tab PO PRN Q6HRS PRN Senna (Sennosides) 8.6 Mg Tablet 8.6 Mg PO DAILY Novolog Flexpen (Insulin Aspart) 100 Unit/1 Ml Insuln.pen 1 Unit SQ TIDAC Miralax (Polyethylene Glycol 3350) 17 Gm Powd.pack 1 Packet PO BID Milk Of Magnesia (Magnesium Hydroxide) 400 Mg/5 Ml Oral.susp 30 Ml PO PRN DAILY Duoneb 0.5-3(2.5) Mg/3 Ml (Albuterol/Ipratropium) 3 Ml Ampul.neb 3 Ml NEB TID Fleet Enema (Na Phos,M-B/Na Phos,Di-Ba) 133 Ml Enema 1 Each RC PRN DAILY PRN Dulcolax (Bisacodyl) 10 Mg Supp.rect 10 Mg RC PRN DAILY PRN Docusate Sodium 100 Mg Capsule 1 Cap PO BID Carvedilol (Carvedilol) 12.5 Mg Tablet 12.5 Mg PO BIDWMEALS Protonix (Pantoprazole Sodium) 20 Mg Tablet.dr 40 Mg PO DAILY Voltaren (Diclofenac Sodium) 100 Gm Gel..gram. 1 Gm TP BID Zofran Odt (Ondansetron) 4 Mg Tab.rapdis 4 Mg PO Q6HRS PRN Sensipar (Cinacalcet Hcl) 30 Mg Tablet 1 Tab PO DAILY Renvela (Sevelamer Carbonate) 2.4 Gm Powd.pack 2.4 Gm PO TIDWMEALS Lumigan (Bimatoprost) 2.5 Ml Drops 1 Drop EACHEYE QHS Calcitriol 0.25 Mcg Capsule 1 Cap PO DAILY Nephro-Roland Tablet (Folic Acid/Vitamin B Comp W-C) 0.8 Mg Tablet 1 Tab PO DAILYBFRSUP Vitamin D (Cholecalciferol (Vitamin D3)) 2,000 Unit Capsule 1 Cap PO DAILY Vitals/I & O Vital Sign - Last 24 Hours 07/28/18 07/28/18 07/28/18 07/28/18 08:54 11:00 11:48 14:49 Temp 97.9 97.6 97.9 97.6 Pulse 78 82 68 Resp 18 18 B/P (MAP) 118/49 134/66 (88) 126/66 (86) Pulse Ox 96 97 92 O2 Delivery Room Air Room Air Room Air 07/28/18 07/28/18 07/28/18 07/28/18 16:03 18:00 19:20 19:21 Temp 97.8 97.8 Pulse 89 88 Resp 20 B/P (MAP) 152/81 152/81 (104) Pulse Ox 97 98 O2 Delivery Room Air Room Air Room Air O2 Flow Rate 2.0 07/28/18 07/28/18 07/29/18 07/29/18 19:28 22:05 03:18 05:43 Temp 97.7 98.0 97.7 98.0 Pulse 79 78 79 Resp 18 18 B/P (MAP) 127/61 (83) 130/74 (92) 125/76 Pulse Ox 96 97 97 O2 Delivery Room Air Room Air Room Air 07/29/18 07/29/18 07:00 07:30 Temp 97.5 97.5 Pulse 76 Resp 19 B/P (MAP) 137/60 (85) Pulse Ox 97 100 O2 Delivery Room Air Room Air Intake and Output 07/28/18 07/28/18 07/29/18 15:00 23:00 07:00 Intake Total 50 ml 832.98 ml Balance 50 ml 832.98 ml MAHSA REYNOSO MD Jul 29, 2018 08:58
[2018-07-29] MEDS: ANTI-COAG MONITOR BY PHARMACY. MC PRN (09:27)
--- NOTE | 2018-07-29 09:29 | NUR ---
Pharmacy Warfarin Dosing Note S:Pharmacy consulted to assist with anticoagulation therapy started with target INR: 2 -3 O:JOHNNY BENÍTEZ is a 87 year old F with DVT/PE UPPER EXTREMITY DVT LABS: Last INR: 1.6 4/1 Last HGB: 11.2 Last HCT: 34.1 Last PLT: 168 Last dose of given on at Previous Regimen: Vitamin K given: Drug Interaction Changes: Ongoing Drug Interactions: A:INR of 1.6 4/1 is below desired range. Target range for this patient is: 2 -3 P: Warfarin dose: 2 mg Today at 1600 [address] Therapy: Heparin Therapeutic CONT Next INR due TOMORROW. Pharmacy anticoagulation service will continue to follow. MADELIN MONTERROSO [facility], 07/29/18 [id number]
--- NOTE | 2018-07-29 10:48 | PDOC ---
Objective: Objective: Reviewed w/ RN - no bleeding, loose stools w/ Miralax, eating better w/ less coughing. Vital Signs: Vital Signs Date Time Temp Pulse Resp B/P (MAP) Pulse Ox O2 Delivery O2 Flow Rate FiO2 07/29/18 07:30 100 Room Air 07/29/18 07:00 97.5 76 19 137/60 (85) 97.5 07/28/18 19:20 2.0 Labs: Laboratory Tests Test 07/28/18 11:26 07/28/18 17:16 07/28/18 20:42 07/29/18 05:40 Glucose (Fingerstick) 367 mg/dL 347 mg/dL 306 mg/dL White Blood Count 20.0 x10^3/uL Red Blood Count 3.25 x10^6/uL Hemoglobin 11.2 g/dL Hematocrit 34.1 % Mean Corpuscular Volume 105 fL Mean Corpuscular Hemoglobin 34 pg Mean Corpuscular Hemoglobin Concent 33 g/dL Red Cell Distribution Width 16.2 % Platelet Count 168 x10^3/uL Neutrophils (%) (Auto) 89 % Lymphocytes (%) (Auto) 5 % Monocytes (%) (Auto) 5 % Eosinophils (%) (Auto) 0 % Basophils (%) (Auto) 1 % Neutrophils # (Auto) 17.9 x10^3uL Lymphocytes # (Auto) 1.1 x10^3/uL Monocytes # (Auto) 0.9 x10^3/uL Eosinophils # (Auto) 0.0 x10^3/uL Basophils # (Auto) 0.1 x10^3/uL Segmented Neutrophils % 94 % Lymphocytes % 2 % Monocytes % 4 % Platelet Estimate Adequate Large Platelets Occ Anisocytosis Slight Macrocytosis Slight Tear Drop Cells Occ Heparin Anti-Xa Act, Unfractionated 0.85 IU/mL Sodium Level 128 mmol/L Potassium Level 4.7 mmol/L Chloride Level 89 mmol/L Carbon Dioxide Level 23 mmol/L Anion Gap 16 Blood Urea Nitrogen 59 mg/dL Creatinine 3.8 mg/dL Estimated GFR (Cockcroft-Gault) 11.3 BUN/Creatinine Ratio 16 Glucose Level 240 mg/dL Calcium Level 7.9 mg/dL Total Bilirubin 1.2 mg/dL Aspartate Amino Transf (AST/SGOT) 16 U/L Alanine Aminotransferase (ALT/SGPT) 16 U/L Alkaline Phosphatase 144 U/L Total Protein 5.9 g/dL Albumin 2.7 g/dL Albumin/Globulin Ratio 0.8 Test 07/29/18 07:19 Glucose (Fingerstick) 236 mg/dL PE: GEN: NAD NEURO/PSYCH: sleeping, not awakened A/P: Rectal bleeding - resolved Chronic anemia Oropharyngeal dysphagia - tolerating PO -- Stable GI-haley, await discharge plans. REDD NAVARRO Jul 29, 2018 10:48
[2018-07-29 11:17] VITALS: BP 122/62
--- NOTE | 2018-07-29 12:50 | PDOC ---
PULMONARY PROGRESS NOTES Subjective NOT MORE SOA Vitals Vital Signs Date Time Temp Pulse Resp B/P (MAP) Pulse Ox O2 Delivery O2 Flow Rate FiO2 07/29/18 11:17 97.3 80 20 122/62 (82) 97 Room Air 97.3 07/28/18 19:20 2.0 ROS: No Nausea, No Chest Pain, No Abdominal Pain, No Increase Cough General: Alert, No acute distress Lungs: Crackles (less crackles) Cardiovascular: S1, S2 Abdomen: Soft Neuro Exam: Alert Extremities: Other (EDEMA L) Skin: Warm Labs Laboratory Tests Test 07/27/18 14:45 07/27/18 17:16 07/27/18 20:47 07/28/18 00:01 White Blood Count 14.5 x10^3/uL (4.0-11.0) Red Blood Count 3.15 x10^6/uL (3.50-5.40) Hemoglobin 10.7 g/dL (12.0-15.5) Hematocrit 32.7 % (36.0-47.0) Mean Corpuscular Volume 104 fL (79-100) Mean Corpuscular Hemoglobin 34 pg (25-35) Mean Corpuscular Hemoglobin Concent 33 g/dL (31-37) Red Cell Distribution Width 15.7 % (11.5-14.5) Platelet Count 170 x10^3/uL (140-400) Neutrophils (%) (Auto) 88 % (31-73) Lymphocytes (%) (Auto) 8 % (24-48) Monocytes (%) (Auto) 4 % (0-9) Eosinophils (%) (Auto) 0 % (0-3) Basophils (%) (Auto) 1 % (0-3) Neutrophils # (Auto) 12.8 x10^3uL (1.8-7.7) Lymphocytes # (Auto) 1.1 x10^3/uL (1.0-4.8) Monocytes # (Auto) 0.5 x10^3/uL (0.0-1.1) Eosinophils # (Auto) 0.0 x10^3/uL (0.0-0.7) Basophils # (Auto) 0.1 x10^3/uL (0.0-0.2) Glucose (Fingerstick) 336 mg/dL (70-99) 311 mg/dL (70-99) Heparin Anti-Xa Act, Unfractionated 0.51 IU/mL (0.30-0.70) Test 07/28/18 05:00 07/28/18 07:03 07/28/18 11:26 07/28/18 17:16 White Blood Count 17.9 x10^3/uL (4.0-11.0) Red Blood Count 3.11 x10^6/uL (3.50-5.40) Hemoglobin 10.6 g/dL (12.0-15.5) Hematocrit 32.4 % (36.0-47.0) Mean Corpuscular Volume 104 fL (79-100) Mean Corpuscular Hemoglobin 34 pg (25-35) Mean Corpuscular Hemoglobin Concent 33 g/dL (31-37) Red Cell Distribution Width 16.2 % (11.5-14.5) Platelet Count 160 x10^3/uL (140-400) Neutrophils (%) (Auto) 91 % (31-73) Lymphocytes (%) (Auto) 5 % (24-48) Monocytes (%) (Auto) 3 % (0-9) Eosinophils (%) (Auto) 0 % (0-3) Basophils (%) (Auto) 0 % (0-3) Neutrophils # (Auto) 16.3 x10^3uL (1.8-7.7) Lymphocytes # (Auto) 0.9 x10^3/uL (1.0-4.8) Monocytes # (Auto) 0.6 x10^3/uL (0.0-1.1) Eosinophils # (Auto) 0.0 x10^3/uL (0.0-0.7) Basophils # (Auto) 0.1 x10^3/uL (0.0-0.2) Prothrombin Time 19.0 SEC (11.7-14.0) Prothromb Time International Ratio 1.6 (0.8-1.1) Activated Partial Thromboplast Time > 150 SEC (24-38) Heparin Anti-Xa Act, Unfractionated 0.60 IU/mL (0.30-0.70) Sodium Level 130 mmol/L (136-145) Potassium Level 4.6 mmol/L (3.5-5.1) Chloride Level 93 mmol/L (98-107) Carbon Dioxide Level 27 mmol/L (21-32) Anion Gap 10 (6-14) Blood Urea Nitrogen 44 mg/dL (7-20) Creatinine 3.2 mg/dL (0.6-1.0) Estimated GFR (Cockcroft-Gault) 13.7 BUN/Creatinine Ratio 14 (6-20) Glucose Level 360 mg/dL (70-99) Calcium Level 7.9 mg/dL (8.5-10.1) Total Bilirubin 1.2 mg/dL (0.2-1.0) Aspartate Amino Transf (AST/SGOT) 16 U/L (15-37) Alanine Aminotransferase (ALT/SGPT) 17 U/L (14-59) Alkaline Phosphatase 144 U/L (46-116) Total Protein 5.7 g/dL (6.4-8.2) Albumin 2.7 g/dL (3.4-5.0) Albumin/Globulin Ratio 0.9 (1.0-1.7) Glucose (Fingerstick) 344 mg/dL (70-99) 367 mg/dL (70-99) 347 mg/dL (70-99) Test 07/28/18 20:42 07/29/18 05:40 07/29/18 07:19 07/29/18 11:50 Glucose (Fingerstick) 306 mg/dL (70-99) 236 mg/dL (70-99) 247 mg/dL (70-99) White Blood Count 20.0 x10^3/uL (4.0-11.0) Red Blood Count 3.25 x10^6/uL (3.50-5.40) Hemoglobin 11.2 g/dL (12.0-15.5) Hematocrit 34.1 % (36.0-47.0) Mean Corpuscular Volume 105 fL (79-100) Mean Corpuscular Hemoglobin 34 pg (25-35) Mean Corpuscular Hemoglobin Concent 33 g/dL (31-37) Red Cell Distribution Width 16.2 % (11.5-14.5) Platelet Count 168 x10^3/uL (140-400) Neutrophils (%) (Auto) 89 % (31-73) Lymphocytes (%) (Auto) 5 % (24-48) Monocytes (%) (Auto) 5 % (0-9) Eosinophils (%) (Auto) 0 % (0-3) Basophils (%) (Auto) 1 % (0-3) Neutrophils # (Auto) 17.9 x10^3uL (1.8-7.7) Lymphocytes # (Auto) 1.1 x10^3/uL (1.0-4.8) Monocytes # (Auto) 0.9 x10^3/uL (0.0-1.1) Eosinophils # (Auto) 0.0 x10^3/uL (0.0-0.7) Basophils # (Auto) 0.1 x10^3/uL (0.0-0.2) Segmented Neutrophils % 94 % (35-66) Lymphocytes % 2 % (24-48) Monocytes % 4 % (0-10) Platelet Estimate Adequate (ADEQUATE) Large Platelets Occ Anisocytosis Slight Macrocytosis Slight Tear Drop Cells Occ Heparin Anti-Xa Act, Unfractionated 0.85 IU/mL (0.30-0.70) 0.73 IU/mL (0.30-0.70) Sodium Level 128 mmol/L (136-145) Potassium Level 4.7 mmol/L (3.5-5.1) Chloride Level 89 mmol/L (98-107) Carbon Dioxide Level 23 mmol/L (21-32) Anion Gap 16 (6-14) Blood Urea Nitrogen 59 mg/dL (7-20) Creatinine 3.8 mg/dL (0.6-1.0) Estimated GFR (Cockcroft-Gault) 11.3 BUN/Creatinine Ratio 16 (6-20) Glucose Level 240 mg/dL (70-99) Calcium Level 7.9 mg/dL (8.5-10.1) Total Bilirubin 1.2 mg/dL (0.2-1.0) Aspartate Amino Transf (AST/SGOT) 16 U/L (15-37) Alanine Aminotransferase (ALT/SGPT) 16 U/L (14-59) Alkaline Phosphatase 144 U/L (46-116) Total Protein 5.9 g/dL (6.4-8.2) Albumin 2.7 g/dL (3.4-5.0) Albumin/Globulin Ratio 0.8 (1.0-1.7) Laboratory Tests Test 07/28/18 17:16 07/28/18 20:42 07/29/18 05:40 07/29/18 07:19 Glucose (Fingerstick) 347 mg/dL (70-99) 306 mg/dL (70-99) 236 mg/dL (70-99) White Blood Count 20.0 x10^3/uL (4.0-11.0) Red Blood Count 3.25 x10^6/uL (3.50-5.40) Hemoglobin 11.2 g/dL (12.0-15.5) Hematocrit 34.1 % (36.0-47.0) Mean Corpuscular Volume 105 fL (79-100) Mean Corpuscular Hemoglobin 34 pg (25-35) Mean Corpuscular Hemoglobin Concent 33 g/dL (31-37) Red Cell Distribution Width 16.2 % (11.5-14.5) Platelet Count 168 x10^3/uL (140-400) Neutrophils (%) (Auto) 89 % (31-73) Lymphocytes (%) (Auto) 5 % (24-48) Monocytes (%) (Auto) 5 % (0-9) Eosinophils (%) (Auto) 0 % (0-3) Basophils (%) (Auto) 1 % (0-3) Neutrophils # (Auto) 17.9 x10^3uL (1.8-7.7) Lymphocytes # (Auto) 1.1 x10^3/uL (1.0-4.8) Monocytes # (Auto) 0.9 x10^3/uL (0.0-1.1) Eosinophils # (Auto) 0.0 x10^3/uL (0.0-0.7) Basophils # (Auto) 0.1 x10^3/uL (0.0-0.2) Segmented Neutrophils % 94 % (35-66) Lymphocytes % 2 % (24-48) Monocytes % 4 % (0-10) Platelet Estimate Adequate (ADEQUATE) Large Platelets Occ Anisocytosis Slight Macrocytosis Slight Tear Drop Cells Occ Heparin Anti-Xa Act, Unfractionated 0.85 IU/mL (0.30-0.70) Sodium Level 128 mmol/L (136-145) Potassium Level 4.7 mmol/L (3.5-5.1) Chloride Level 89 mmol/L (98-107) Carbon Dioxide Level 23 mmol/L (21-32) Anion Gap 16 (6-14) Blood Urea Nitrogen 59 mg/dL (7-20) Creatinine 3.8 mg/dL (0.6-1.0) Estimated GFR (Cockcroft-Gault) 11.3 BUN/Creatinine Ratio 16 (6-20) Glucose Level 240 mg/dL (70-99) Calcium Level 7.9 mg/dL (8.5-10.1) Total Bilirubin 1.2 mg/dL (0.2-1.0) Aspartate Amino Transf (AST/SGOT) 16 U/L (15-37) Alanine Aminotransferase (ALT/SGPT) 16 U/L (14-59) Alkaline Phosphatase 144 U/L (46-116) Total Protein 5.9 g/dL (6.4-8.2) Albumin 2.7 g/dL (3.4-5.0) Albumin/Globulin Ratio 0.8 (1.0-1.7) Test 07/29/18 11:50 Heparin Anti-Xa Act, Unfractionated 0.73 IU/mL (0.30-0.70) Glucose (Fingerstick) 247 mg/dL (70-99) Medications Active Scripts Medications Dose Route/Sig Max Daily Dose Days Date Category Dose Instructions Senna (Sennosides) 8.6 Mg Tablet 8.6 Mg PO DAILY 07/19/18 Reported Novolog Flexpen (Insulin Aspart) 100 Unit/1 Ml Insuln.pen 1 Unit SQ TIDAC 07/19/18 Reported Miralax (Polyethylene Glycol 3350) 17 Gm Powd.pack 1 Packet PO BID 07/19/18 Reported Milk Of Magnesia (Magnesium Hydroxide) 400 Mg/5 Ml Oral.susp 30 Ml PO PRN DAILY 07/19/18 Reported Duoneb 0.5-3(2.5) Mg/3 Ml (Albuterol/Ipratropium) 3 Ml Ampul.neb 3 Ml NEB TID 07/19/18 Reported Fleet Enema (Na Phos,M-B/Na Phos,Di-Ba) 133 Ml Enema 1 Each RC PRN DAILY PRN 07/19/18 Reported Dulcolax (Bisacodyl) 10 Mg Supp.rect 10 Mg RC PRN DAILY PRN 07/19/18 Reported Docusate Sodium 100 Mg Capsule 1 Cap PO BID 07/19/18 Reported Carvedilol (Carvedilol) 12.5 Mg Tablet 12.5 Mg PO BIDWMEALS 07/19/18 Reported Levemir (Insulin Detemir) 100 Unit/1 Ml Vial 5 Unit SQ QHS 30 07/15/18 Rx Hold for < 140mg/dL Acetaminophen 500 Mg Tablet 500 Mg PO PRN Q6HRS PRN 30 07/14/18 Rx Aspirin 325 Mg Tablet 1 Tab PO DAILY 04/16/18 Rx Protonix (Pantoprazole Sodium) 20 Mg Tablet.dr 40 Mg PO DAILY 11/06/17 Reported Voltaren (Diclofenac Sodium) 100 Gm Gel..gram. 1 Gm TP BID 11/06/17 Reported Zofran Odt (Ondansetron) 4 Mg Tab.rapdis 4 Mg PO Q6HRS PRN 10/30/17 Reported Sensipar (Cinacalcet Hcl) 30 Mg Tablet 1 Tab PO DAILY 02/04/17 Reported Renvela (Sevelamer Carbonate) 2.4 Gm Powd.pack 2.4 Gm PO TIDWMEALS 02/04/17 Reported Lumigan (Bimatoprost) 2.5 Ml Drops 1 Drop EACHEYE QHS 02/04/17 Reported Calcitriol 0.25 Mcg Capsule 1 Cap PO DAILY 01/18/17 Reported Nephro-Roland Tablet (Folic Acid/Vitamin B Comp W-C) 0.8 Mg Tablet 1 Tab PO DAILYBFRSUP 11/26/15 Reported Vitamin D (Cholecalciferol (Vitamin D3)) 2,000 Unit Capsule 1 Cap PO DAILY 11/26/15 Reported Impression . IMPRESSION: 1. Dyspnea with cough and mild bronchospasm, likely related to viral pneumonitis, triggering bronchospasm POA. She may have adult onset reactive airway disease. resolved now 2. Recent abnormal CT chest on 07/11 suggesting upper lobe viral pneumonitis. She has some ground glass infiltrates at that time. 3. End-stage renal disease, on hemodialysis. 4. Underlying obesity. 5. Chronic hypoxic respiratory failure, on home oxygen 2 liters. 6 HYPOTENSION IMPROVED 7. LEONIE EXT BRACHIAL CLOT SEE BELOW PICC REMOVED 07/25 CENTRAL LINE 07/25 Impression: Successful ultrasound-guided placement of right internal jugular triple-lumen central venous catheter Plan . RESP STATUS IMPROVED NEEDS HIGH LEVEL OF CARE. NOT A CANDIDATE FOR SNU, LTAC IS APPROPRIATE/ INSURANCE DENIED AT PRESENT CONTINUE THE SAME STARTED ON HEPARIN/ COUMADIN FOR BRACHIAL CLOT/ NEEDS SHORT TERM AC ( 2-4 WEEKS REPEAT US IN FEW WEEKS GIAN SHAFFER MD Jul 29, 2018 12:50
--- NOTE | 2018-07-29 13:00 | PDOC ---
Renal-Progress Notes Subjective Notes Notes FEELS A BIT STRONGER History of Present Illness Hx of present illness OVERALL SLIGHTLY BETTER BUT STILL HAS SEVERE WEAKNESS Vitals Vitals Vital Signs Date Time Temp Pulse Resp B/P (MAP) Pulse Ox O2 Delivery O2 Flow Rate FiO2 07/29/18 11:17 97.3 80 20 122/62 (82) 97 Room Air 97.3 07/28/18 19:20 2.0 Weight Weight [ ] I.O. Intake and Output Intake and Output 07/29/18 07:00 Intake Total 882.98 ml Balance 882.98 ml Intake Oral 30 ml IV Total 852.98 ml # Voids 1 # Bowel Movements 3 Labs Labs Laboratory Tests Test 07/28/18 17:16 07/28/18 20:42 07/29/18 05:40 07/29/18 07:19 Glucose (Fingerstick) 347 mg/dL (70-99) 306 mg/dL (70-99) 236 mg/dL (70-99) White Blood Count 20.0 x10^3/uL (4.0-11.0) Red Blood Count 3.25 x10^6/uL (3.50-5.40) Hemoglobin 11.2 g/dL (12.0-15.5) Hematocrit 34.1 % (36.0-47.0) Mean Corpuscular Volume 105 fL (79-100) Mean Corpuscular Hemoglobin 34 pg (25-35) Mean Corpuscular Hemoglobin Concent 33 g/dL (31-37) Red Cell Distribution Width 16.2 % (11.5-14.5) Platelet Count 168 x10^3/uL (140-400) Neutrophils (%) (Auto) 89 % (31-73) Lymphocytes (%) (Auto) 5 % (24-48) Monocytes (%) (Auto) 5 % (0-9) Eosinophils (%) (Auto) 0 % (0-3) Basophils (%) (Auto) 1 % (0-3) Neutrophils # (Auto) 17.9 x10^3uL (1.8-7.7) Lymphocytes # (Auto) 1.1 x10^3/uL (1.0-4.8) Monocytes # (Auto) 0.9 x10^3/uL (0.0-1.1) Eosinophils # (Auto) 0.0 x10^3/uL (0.0-0.7) Basophils # (Auto) 0.1 x10^3/uL (0.0-0.2) Segmented Neutrophils % 94 % (35-66) Lymphocytes % 2 % (24-48) Monocytes % 4 % (0-10) Platelet Estimate Adequate (ADEQUATE) Large Platelets Occ Anisocytosis Slight Macrocytosis Slight Tear Drop Cells Occ Heparin Anti-Xa Act, Unfractionated 0.85 IU/mL (0.30-0.70) Sodium Level 128 mmol/L (136-145) Potassium Level 4.7 mmol/L (3.5-5.1) Chloride Level 89 mmol/L (98-107) Carbon Dioxide Level 23 mmol/L (21-32) Anion Gap 16 (6-14) Blood Urea Nitrogen 59 mg/dL (7-20) Creatinine 3.8 mg/dL (0.6-1.0) Estimated GFR (Cockcroft-Gault) 11.3 BUN/Creatinine Ratio 16 (6-20) Glucose Level 240 mg/dL (70-99) Calcium Level 7.9 mg/dL (8.5-10.1) Total Bilirubin 1.2 mg/dL (0.2-1.0) Aspartate Amino Transf (AST/SGOT) 16 U/L (15-37) Alanine Aminotransferase (ALT/SGPT) 16 U/L (14-59) Alkaline Phosphatase 144 U/L (46-116) Total Protein 5.9 g/dL (6.4-8.2) Albumin 2.7 g/dL (3.4-5.0) Albumin/Globulin Ratio 0.8 (1.0-1.7) Test 07/29/18 11:50 Heparin Anti-Xa Act, Unfractionated 0.73 IU/mL (0.30-0.70) Glucose (Fingerstick) 247 mg/dL (70-99) Review of Systems Constitutional: yes: weakness, alert Ears/Nose/Throat: Yes: dysphagia Cardiovascular: Yes no symptom reported Gastrointestional: Yes: constipation Genitourinary: Yes: no symptom reported Musculoskeletal: Yes: muscle stiffness Skin: Yes no symptom reported Psychiatric/Neurological: Yes: no symptom reported Endocrine: Yes: no symptom reported Physical Exam General Appearance: no apparent distress Skin: warm Respiratory: decreased breath sounds Heart: S1S2, RRR Abdomen: soft Genitourinary: bladder flat, no mass Extremities: pulses present, no edema, atrophy Neurology: alert, follow commands Assessment Assessment IMP DYSPNEA HYPOTENSION HYPERVOLEMIA ESRD-TTS ANEMIA DECONDITIONING DM II DYSPHAGIA PLAN HD TODAY UF TO [facility] COMBS DOING BETTER UPDATED DAUGHTER NEEDS LTAC OR SHE WILL PROB [employer] INSURANCE COMPANY DENYING SELECT NANCY CALERO MD Jul 29, 2018 13:00
[2018-07-29] MEDS ORDERED: IV NORMAL SALINE 1000ML BAG 1,000 ML IV PRN (13:50)
[2018-07-29] MEDS ORDERED: DIALYSIS PATIENT. MC PRN ×2 (14:00)
[2018-07-29] MEDS ORDERED: WARFARIN 2 MG TABLET. PO ONE (16:00)
[2018-07-29] MEDS ORDERED: WARFARIN 2.5 MG TABLET. PO SCH (16:00)
[2018-07-29] MEDS: FOLIC/VIT B COMP W-C (RENAL) TABLET. PO SCH (18:25)
[2018-07-29] MEDS: DIGOXIN 125 MCG TABLET. PO SCH (18:26)
[2018-07-29 19:48] VITALS: BP 130/67
[2018-07-29] MEDS: LATANOPROST 0.005% OPHTH SOLUTION 2.5ML BOTTLE. OU SCH (21:53)
[2018-07-29] MEDS: INSULIN GLARGINE 300 UNITS/3 ML INSULN.PEN. SQ SCH (22:01)
[2018-07-29 23:15] VITALS: BP 103/52
[2018-07-30] VITALS (7 sets, daily range): BP systolic 114–141; BP diastolic 42–64
[2018-07-30 00:27] LABS: PROTHROMBIN TIME PATIENT 18.3 SEC (11.7-14.0)
[2018-07-30 00:28] LABS: UNFRACTIONATED HEPARIN TESTING 0.4 IU/mL (0.30-0.70)
[2018-07-30] MEDS: HEPARIN 25,000UTS/500ML PREMIX 500 ML IV PRN (04:32)
[2018-07-30] MEDS: methylPREDNISolone SOD SUCC PF 40 MG/ML VIAL. IV SCH ×3 (06:12→22:00)
[2018-07-30] MEDS: MIDODRINE 2.5 MG TABLET PO SCH ×3 (06:20→18:15)
--- NOTE | 2018-07-30 06:21 | NUR ---
proamatene held pt bp 120/50, hr 80 will cont to monitor pt. pmrn
[2018-07-30] MEDS: INSULIN LISPRO 300 UNITS/3 ML INSULN.PEN. SQ SCH ×6 (08:00→18:21)
[2018-07-30] MEDS: IPRATRPIUM/ALBUTEROL 0.5/2.5MG 3 ML NEBU. NEB SCH ×4 (08:00→20:43)
--- NOTE | 2018-07-30 08:08 | PDOC ---
PROGRESS NOTES Chief Complaint Chief Complaint SOA, fluid overload and treating HCAP ESRD on dialysis-did not finish dialysis Existing AV fistula Hypotension, resolved now hypertension Anemia of chronic disease severe Generalized weakness SNU resident Diabetes type 2 on low-dose insulin uncontrolled// inc lantus to 14 units sq hs symptomatic with lethargy hypotension dysphagia, malnutrition MARKED DEBILITY, WEAKNESS Penetration of thin liquids w/ large drinks via cup, chin tuck and straw drinking were observed. Decreasing bolus size, keeping head in neutral position and alternating or utilizing a dry swallow were all effective strategies. No aspiration was observed during this evaluation. Occlusive thrombus in one brachial vein in the left upper arm surrounding an indwelling PICC line, on heparin for clot Dysphagia II diet w/ thin liquids, AGREE WITH LTAC/SNF PLANS REMAINS TO HAVE MARKED DECLINES SLOW TO IMPROVE, High risk of additional complications History of Present Illness History of Present Illness 87-year-old female //admitted from 07/10 thru 07/15, discharge 4 days [employer] to [employer] , 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 Bleeding from HD fistula, heparin level high, INR was up but has not been on coumadin which was started last night. Patchy ground glass opacification of the lungs. Dysphagia and aspiration She is not speaking much today. her AV fistula started spurting blood again last night. She is still very weak and dejected today. Denies CP, has shortness of breath and c/o dysphagia, encouraged to sit up in bed. Plan: MOD-SEVERE protein-caloric malnutrition - on PPN, eating 50% and more from her meals, may benefit from backing off PPN as she is getting fluid overloaded. She may need to get back on PPN/TPN based on not eating again today. LTAC may actually be most appropriate for her. Vitals Vitals Vital Signs Date Time Temp Pulse Resp B/P (MAP) Pulse Ox O2 Delivery O2 Flow Rate FiO2 07/30/18 07:56 97.9 85 16 120/50 (73) 97 Room Air 97.9 Physical Exam Physical Exam GENERAL: Propped up in bed, awake, Looks well HEENT: anicteric getting breathing treatment LUNGS: Mild congestion - bilat HEART: S1, S2. ABDOMEN: , soft and nontender. EXTREMITIES: No edema, no cyanosis. SKIN: No generalized rash. Chronic skin changes present in both lower extremities. 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, appropriate RIJ (07/25) without signs of any complications AVF bandaged/bleeding General: Alert, Oriented X3, Cooperative, No acute distress Heart: Regular rate, Normal S1, Normal S2, No murmurs, Gallops Lungs: Crackles (less crackles) Abdomen: Normal bowel sounds, Soft, No tenderness, No hepatosplenomegaly, No masses Extremities: No clubbing, No cyanosis, No edema, Normal pulses, No tenderness/ swelling Skin: No rashes, No breakdown, No significant lesion Labs LABS Laboratory Tests Test 07/29/18 11:50 07/29/18 17:56 07/29/18 20:38 07/30/18 00:05 Heparin Anti-Xa Act, Unfractionated 0.73 IU/mL (0.30-0.70) 0.40 IU/mL (0.30-0.70) Glucose (Fingerstick) 247 mg/dL (70-99) 121 mg/dL (70-99) 190 mg/dL (70-99) Prothrombin Time 18.3 SEC (11.7-14.0) Prothromb Time International Ratio 1.6 (0.8-1.1) Test 07/30/18 06:15 Heparin Anti-Xa Act, Unfractionated 0.37 IU/mL (0.30-0.70) Assessment and Plan Assessmemt and Plan Problems Medical Problems: (1) Congestive heart failure Status: Acute Comment Review of Relevant I have reviewed the following items smith (where applicable) has been applied. Labs Laboratory Tests Test 07/28/18 11:26 07/28/18 17:16 07/28/18 20:42 07/29/18 05:40 Glucose (Fingerstick) 367 mg/dL (70-99) 347 mg/dL (70-99) 306 mg/dL (70-99) White Blood Count 20.0 x10^3/uL (4.0-11.0) Red Blood Count 3.25 x10^6/uL (3.50-5.40) Hemoglobin 11.2 g/dL (12.0-15.5) Hematocrit 34.1 % (36.0-47.0) Mean Corpuscular Volume 105 fL (79-100) Mean Corpuscular Hemoglobin 34 pg (25-35) Mean Corpuscular Hemoglobin Concent 33 g/dL (31-37) Red Cell Distribution Width 16.2 % (11.5-14.5) Platelet Count 168 x10^3/uL (140-400) Neutrophils (%) (Auto) 89 % (31-73) Lymphocytes (%) (Auto) 5 % (24-48) Monocytes (%) (Auto) 5 % (0-9) Eosinophils (%) (Auto) 0 % (0-3) Basophils (%) (Auto) 1 % (0-3) Neutrophils # (Auto) 17.9 x10^3uL (1.8-7.7) Lymphocytes # (Auto) 1.1 x10^3/uL (1.0-4.8) Monocytes # (Auto) 0.9 x10^3/uL (0.0-1.1) Eosinophils # (Auto) 0.0 x10^3/uL (0.0-0.7) Basophils # (Auto) 0.1 x10^3/uL (0.0-0.2) Segmented Neutrophils % 94 % (35-66) Lymphocytes % 2 % (24-48) Monocytes % 4 % (0-10) Platelet Estimate Adequate (ADEQUATE) Large Platelets Occ Anisocytosis Slight Macrocytosis Slight Tear Drop Cells Occ Heparin Anti-Xa Act, Unfractionated 0.85 IU/mL (0.30-0.70) Sodium Level 128 mmol/L (136-145) Potassium Level 4.7 mmol/L (3.5-5.1) Chloride Level 89 mmol/L (98-107) Carbon Dioxide Level 23 mmol/L (21-32) Anion Gap 16 (6-14) Blood Urea Nitrogen 59 mg/dL (7-20) Creatinine 3.8 mg/dL (0.6-1.0) Estimated GFR (Cockcroft-Gault) 11.3 BUN/Creatinine Ratio 16 (6-20) Glucose Level 240 mg/dL (70-99) Calcium Level 7.9 mg/dL (8.5-10.1) Total Bilirubin 1.2 mg/dL (0.2-1.0) Aspartate Amino Transf (AST/SGOT) 16 U/L (15-37) Alanine Aminotransferase (ALT/SGPT) 16 U/L (14-59) Alkaline Phosphatase 144 U/L (46-116) Total Protein 5.9 g/dL (6.4-8.2) Albumin 2.7 g/dL (3.4-5.0) Albumin/Globulin Ratio 0.8 (1.0-1.7) Test 07/29/18 07:19 07/29/18 11:50 07/29/18 17:56 07/29/18 20:38 Glucose (Fingerstick) 236 mg/dL (70-99) 247 mg/dL (70-99) 121 mg/dL (70-99) 190 mg/dL (70-99) Heparin Anti-Xa Act, Unfractionated 0.73 IU/mL (0.30-0.70) Test 07/30/18 00:05 07/30/18 06:15 Prothrombin Time 18.3 SEC (11.7-14.0) Prothromb Time International Ratio 1.6 (0.8-1.1) Heparin Anti-Xa Act, Unfractionated 0.40 IU/mL (0.30-0.70) 0.37 IU/mL (0.30-0.70) Laboratory Tests Test 07/29/18 11:50 07/29/18 17:56 07/29/18 20:38 07/30/18 00:05 Heparin Anti-Xa Act, Unfractionated 0.73 IU/mL (0.30-0.70) 0.40 IU/mL (0.30-0.70) Glucose (Fingerstick) 247 mg/dL (70-99) 121 mg/dL (70-99) 190 mg/dL (70-99) Prothrombin Time 18.3 SEC (11.7-14.0) Prothromb Time International Ratio 1.6 (0.8-1.1) Test 07/30/18 06:15 Heparin Anti-Xa Act, Unfractionated 0.37 IU/mL (0.30-0.70) Medications Current Medications Albuterol/ Ipratropium (Duoneb) 3 ml 1X ONCE NEB Last administered on at 12:57; Start 07/19/18 at 12:45; Stop 07/19/18 at 12:46; Status DC Ondansetron HCl (Zofran) 4 mg PRN Q8HRS PRN IV NAUSEA/VOMITING; Start 07/19/18 at 14:30; Stop 07/20/18 at 14:29; Status DC Acetaminophen (Tylenol) 650 mg PRN Q4HRS PRN PO FEVER; Start 07/19/18 at 14:30 ; Stop 07/20/18 at 08:37; Status DC Nitroglycerin (Nitrostat) 0.4 mg PRN Q5MIN PRN SL CHEST PAIN; Start 07/19/18 at 14:30; Stop 07/20/18 at 14:29; Status DC Albuterol/ Ipratropium (Duoneb) 3 ml RTQID NEB ; Start 07/19/18 at 16:00; Stop 07/20/18 at 15:59; Status Cancel Aspirin (Tracee Aspirin) 325 mg DAILY PO Last administered on 07/29/18 08:33; Start 07/19/18 at 15:00 Carvedilol (Coreg) 3.125 mg BIDWMEALS PO ; Start 07/19/18 at 17:00; Stop at 19:42; Status DC Cinacalcet (Sensipar) 30 mg DAILY PO Last administered on 07/29/18 08:32; Start 07/19/18 at 15:00 Diclofenac Sodium (Voltaren) 1 grisel BID TP Last administered on 07/29/18 21:55; Start 07/19/18 at 21:00 Fentanyl (Duragesic 12mcg/ Hr Patch) 1 patch Q3DAYS TD ; Start 07/19/18 at 15:00 ; Stop 07/19/18 at 19:42; Status DC Vitamin B Complex/ Vitamin C (Bela-Roland) 1 tab DAILYBFRSUP PO Last administered on 07/29/18 18:25; Start 07/19/18 at 17:00 Ondansetron HCl (Zofran Odt) 4 mg PRN Q6HRS PRN PO NAUSEA/VOMITING; Start 07/19 at 14:45 Sevelamer Carbonate (Renvela) 2.4 gm TIDWMEALS PO Last administered on 17:00; Start 07/19/18 at 17:00 Acetaminophen (Tylenol) 500 mg PRN Q6HRS PRN PO MILD PAIN / TEMP; Start at 14:45 Latanoprost (Xalatan) 1 drop QHS OU Last administered on 07/29/18 21:53; Start 07/19/18 at 21:00 Calcitriol (Rocaltrol) 0.25 mcg DAILY PO Last administered on 07/29/18 08:32; Start 07/20/18 at 09:00 Vitamin D (Vitamin D3) 1,000 unit DAILY PO Last administered on 07/29/18 08:32 ; Start 07/20/18 at 09:00 Hydromorphone HCl (Dilaudid) 2 mg PRN Q8HRS PRN PO MODERATE PAIN, SEVERE PAIN; Start 07/19/18 at 15:00; Stop 07/20/18 at 09:31; Status DC Insulin Glargine (Lantus) 5 units QHS SQ Last administered on 07/26/18 21:46; Start 07/19/18 at 21:00; Stop 07/27/18 at 10:00; Status DC Non-Formulary Medication (Latanoprost/Pf (Latanoprost 0.005% Eye Drop)) 7.5 ml QHS OP ; Start 07/19/18 at 21:00; Status UNV Pantoprazole Sodium (Protonix) 40 mg DAILYAC PO Last administered on 07/24/18 11:17; Start 07/20/18 at 07:30; Stop 07/27/18 at 09:10; Status DC Piperacillin Sod/ Tazobactam Sod (Zosyn Per Pharmacy) 1 each PRN DAILY PRN MC SEE COMMENTS; Start 07/19/18 at 14:45; Stop 07/24/18 at 11:11; Status DC Albuterol/ Ipratropium (Duoneb) 3 ml RTQID NEB Last administered on 07/29/18 20 :02; Start 07/19/18 at 16:00 Guaifenesin (Robitussin Dm) 10 ml QID PO Last administered on 07/29/18 21:53; Start 07/19/18 at 17:00 Temazepam (Restoril) 7.5 mg PRN QHS PRN PO INSOMNIA Last administered on 20:42; Start 07/19/18 at 14:45 Insulin Human Lispro (HumaLOG) 0-7 UNITS TIDWMEALS SQ Last administered on 12:50; Start 07/19/18 at 17:00 Dextrose (Dextrose 50%-Water Syringe) 12.5 gm PRN Q15MIN PRN IV SEE COMMENTS; Start 07/19/18 at 14:45 Piperacillin Sod/ Tazobactam Sod 2.25 gm/Sodium Chloride 50 ml @ 100 mls/hr Q8H IV Last administered on 07/24/18at 00:10; Start 07/19/18 at 16:00; Stop at 08:08; Status DC Furosemide (Lasix) 40 mg 1X ONCE IVP Last administered on 07/19/18at 14:52; Start 07/19/18 at 14:45; Stop 07/19/18 at 14:52; Status DC Docusate Sodium (Colace) 100 mg BID PO Last administered on 07/28/18at 21:15; Start 07/19/18 at 21:00 Magnesium Hydroxide (Milk Of Magnesia) 2,400 mg PRN DAILY PRN PO CONSTIPATION; Start 07/19/18 at 19:45 Sodium Monofluorophosphate (Fleet Adult) 133 ml PRN DAILY PRN RC CONSTIPATION; Start 07/19/18 at 19:45; Stop 07/22/18 at 12:17; Status DC Bisacodyl (Dulcolax Supp) 10 mg PRN DAILY PRN AK CONSTIPATION 1ST CHOICE; Start 07/19/18 at 19:45 Polyethylene Glycol (miraLAX PACKET) 17 gm BID PO Last administered on at 21:57; Start 07/19/18 at 21:00 Sennosides (Senna) 8.6 mg DAILY PO Last administered on 07/24/18at 11:16; Start 07/20/18 at 09:00 Lactobacillus Rhamnosus (Culturelle) 1 cap BID PO Last administered on 21:57; Start 07/20/18 at 21:00 Methylprednisolone Sodium Succinate (SOLU-Medrol 40MG VIAL) 40 mg Q8HRS IV Last administered on 07/30/18at 06:12; Start 07/20/18 at 14:00 Albumin Human 250 ml @ 62.5 mls/hr PRN Q6HRS PRN IV for MAP < 65 Last administered on 07/21/18at 20:45; Start 07/20/18 at 09:45 Magnesium Sulfate 50 ml @ 25 mls/hr PRN DAILY PRN IV for Mag < 1.7 on am labs; Start 07/20/18 at 09:45 Dopamine HCl/ Dextrose 250 ml @ 6.124 mls/ hr CONT PRN IV SEE I/O RECORD Last administered on 07/24/18at 20:37; Start 07/20/18 at 12:00; Stop 07/26/18 at 14:13 ; Status DC Sodium Chloride 1,000 ml @ 1,000 mls/hr Q1H PRN IV hypotension; Start 07/21/18 at 13:00; Stop 07/21/18 at 18:59; Status DC Sodium Chloride 1,000 ml @ 400 mls/hr Q2H30M PRN IV PATENCY; Start 07/21/18 at 13:00; Stop 07/22/18 at 00:59; Status DC Info (PHARMACY MONITORING -- do not chart) 1 each PRN DAILY PRN MC SEE COMMENTS ; Start 07/21/18 at 13:30; Status UNV Info (PHARMACY MONITORING -- do not chart) 1 each PRN DAILY PRN MC SEE COMMENTS ; Start 07/21/18 at 13:30; Stop 07/24/18 at 07:10; Status DC Albumin Human 100 ml @ 100 mls/hr 1X ONCE IV Last administered on 07/21/18at 14:00; Start 07/21/18 at 13:30; Stop 07/21/18 at 14:29; Status DC Sodium Chloride 500 ml @ 500 mls/hr 1X ONCE IV Last administered on at 11:14; Start 07/22/18 at 11:15; Stop 07/22/18 at 12:14; Status DC Digoxin (Lanoxin) 125 mcg QMWF@1600 PO ; Start 07/23/18 at 16:00; Stop 07/23/18 at 16:00; Status DC Digoxin (Lanoxin) 125 mcg 1X ONCE PO Last administered on 07/22/18at 12:26; Start 07/22/18 at 12:00; Stop 07/22/18 at 12:01; Status DC Midodrine (Proamatine) 2.5 mg [id number] PO Last administered on 07/29/18 18:26; Start 07/22/18 at 13:00 Digoxin (Lanoxin) 125 mcg QTUTHSA PO Last administered on 07/29/18at 18:26; Start 07/24/18 at 16:00 Sodium Chloride 500 ml @ 500 mls/hr 1X ONCE IV Last administered on at 15:42; Start 07/23/18 at 15:00; Stop 07/23/18 at 15:59; Status DC Sodium Chloride 1,000 ml @ 1,000 mls/hr Q1H PRN IV hypotension; Start 07/24/18 at 06:59; Stop 07/24/18 at 12:58; Status DC Albumin Human 200 ml @ 200 mls/hr 1X PRN PRN IV Hypotension Last administered on 07/24/18at 08:09; Start 07/24/18 at 07:00; Stop 07/24/18 at 12:59; Status DC Sodium Chloride 1,000 ml @ 400 mls/hr Q2H30M PRN IV PATENCY; Start 07/24/18 at 06:59; Stop 07/24/18 at 18:58; Status DC Info (PHARMACY MONITORING -- do not chart) 1 each PRN DAILY PRN MC SEE COMMENTS ; Start 07/24/18 at 07:00; Stop 07/25/18 at 11:17; Status DC Info (PHARMACY MONITORING -- do not chart) 1 each PRN DAILY PRN MC SEE COMMENTS ; Start 07/24/18 at 07:00; Status UNV Amoxicillin/ Clavulanate Potassium (Augmentin 500/ 125mg) 1 tab BID PO Last administered on 07/24/18at 11:16; Start 07/24/18 at 09:00; Stop 07/25/18 at 09:21 ; Status DC Amino Acids/ Glycerin/ Electrolytes 1,000 ml @ 50 mls/hr Q20H IV Last administered on 07/28/18at 21:12; Start 07/24/18 at 17:00; Stop 07/29/18 at 08:56; Status DC Heparin Sodium/ Dextrose 500 ml @ 0 mls/hr CONT PRN IV SEE I/O RECORD; Start at 19:30; Status Cancel Heparin Sodium (Porcine) (Heparin Sodium) 6,850 unit 1X ONCE IV Last administered on 07/24/18at 19:38; Start 07/24/18 at 19:30; Stop 07/24/18 at 19:33 ; Status DC Heparin Sodium/ Dextrose 500 ml @ 0 mls/hr CONT PRN IV SEE I/O RECORD; Start at 19:30; Status UNV Heparin Sodium (Porcine) (Heparin Sodium) 2,550 unit PRN Q6HRS PRN IV FOR UFH LEVEL LESS THAN 0.2; Start 07/24/18 at 19:30 Heparin Sodium (Porcine) (Heparin Sodium) 1,300 unit PRN Q6HRS PRN IV FOR UFH LEVEL 0.2 - 0.29 Last administered on 07/25/18at 23:25; Start 07/24/18 at 19:30 Heparin Sodium/ Dextrose 500 ml @ 0 mls/hr CONT PRN IV SEE I/O RECORD Last administered on 07/30/18at 04:32; Start 07/24/18 at 19:45 Sodium Chloride 1,000 ml @ 1,000 mls/hr Q1H PRN IV hypotension; Start 07/25/18 at 08:22; Stop 07/25/18 at 14:21; Status DC Albumin Human 200 ml @ 200 mls/hr 1X ONCE IV Last administered on 07/25/18at 08:49; Start 07/25/18 at 08:30; Stop 07/25/18 at 09:29; Status DC Diphenhydramine HCl (Benadryl) 25 mg 1X PRN PRN IV ITCHING; Start 07/25/18 at 08:30; Stop 07/26/18 at 08:29; Status DC Diphenhydramine HCl (Benadryl) 25 mg 1X PRN PRN IV ITCHING; Start 07/25/18 at 08:30; Stop 07/26/18 at 08:29; Status DC Sodium Chloride 1,000 ml @ 400 mls/hr Q2H30M PRN IV PATENCY; Start 07/25/18 at 08:22; Stop 07/25/18 at 20:21; Status DC Info (PHARMACY MONITORING -- do not chart) 1 each PRN DAILY PRN MC SEE COMMENTS ; Start 07/25/18 at 08:30; Stop 07/26/18 at 14:10; Status DC Piperacillin Sod/ Tazobactam Sod 2.25 gm/Sodium Chloride 50 ml @ 100 mls/hr Q8HRS IV Last administered on 07/28/18at 05:07; Start 07/25/18 at 09:30; Stop 07/28/18 at 09:31; Status DC Info (Anti-Coagulation Monitoring By Pharmacy) 1 each PRN DAILY PRN MC SEE COMMENTS Last administered on 07/29/18at 09:27; Start 07/25/18 at 11:30 Info (PHARMACY MONITORING -- do not chart) 1 each PRN DAILY PRN MC SEE COMMENTS ; Start 07/26/18 at 08:15 Info (PHARMACY MONITORING -- do not chart) 1 each PRN DAILY PRN MC SEE COMMENTS ; Start 07/26/18 at 08:15; Stop 07/26/18 at 08:17; Status DC Barium Sulfate (Varibar Thin Liquid Apple) 148 gm 1X ONCE PO Last administered on 07/26/18at 13:30; Start 07/26/18 at 13:30; Stop 07/26/18 at 13:31 ; Status DC Pantoprazole Sodium (PROTONIX VIAL for IV PUSH) 40 mg DAILYAC IVP Last administered on 07/28/18at 07:54; Start 07/27/18 at 11:30; Stop 07/28/18 at 10:43; Status DC Insulin Glargine (Lantus) 9 units QHS SQ Last administered on 07/27/18at 20:52; Start 07/27/18 at 21:00; Stop 07/28/18 at 14:03; Status DC Insulin Human Lispro (HumaLOG) 4 units TIDWMEALS SQ Last administered on at 12:51; Start 07/27/18 at 12:00 Pantoprazole Sodium (Protonix) 40 mg DAILYAC PO Last administered on 07/29/18at 08:32; Start 07/29/18 at 07:30 Insulin Glargine (Lantus) 14 units QHS SQ Last administered on 07/29/18at 22:01; Start 07/28/18 at 21:00 Warfarin Sodium (Coumadin) 2.5 mg DAILY16 PO ; Start 07/29/18 at 16:00; Stop 07/29 at 16:00; Status DC Warfarin Sodium (Coumadin Per Pharmacy) 1 each PRN DAILY PRN MC SEE COMMENTS Last administered on 07/29/18at 09:25; Start 07/29/18 at 09:00 Warfarin Sodium (Coumadin) 2 mg 1X WARF ONCE PO Last administered on 4/2/19at 18:27; Start 07/29/18 at 16:00; Stop 07/29/18 at 16:01; Status DC Sodium Chloride 1,000 ml @ 1,000 mls/hr Q1H PRN IV hypotension; Start 07/29/18 at 13:50; Stop 07/29/18 at 19:49; Status DC Info (PHARMACY MONITORING -- do not chart) 1 each PRN DAILY PRN MC SEE COMMENTS ; Start 07/29/18 at 14:00 Info (PHARMACY MONITORING -- do not chart) 1 each PRN DAILY PRN MC SEE COMMENTS ; Start 07/29/18 at 14:00; Status UNV Warfarin Sodium (Coumadin) 2 mg 1X WARF ONCE PO ; Start 07/30/18 at 16:00; Stop 07/30/18 at 16:01 Active Scripts Active Levemir (Insulin Detemir) 100 Unit/1 Ml Vial 5 Unit SQ QHS 30 Days Hold for < 140mg/dL Aspirin 325 Mg Tablet 1 Tab PO DAILY Reported Amlodipine Besylate 10 Mg Tablet 10 Mg PO DAILY Tylenol (Acetaminophen) 325 Mg Tablet 2 Tab PO PRN Q6HRS PRN Senna (Sennosides) 8.6 Mg Tablet 8.6 Mg PO DAILY Novolog Flexpen (Insulin Aspart) 100 Unit/1 Ml Insuln.pen 1 Unit SQ TIDAC Miralax (Polyethylene Glycol 3350) 17 Gm Powd.pack 1 Packet PO BID Milk Of Magnesia (Magnesium Hydroxide) 400 Mg/5 Ml Oral.susp 30 Ml PO PRN DAILY Duoneb 0.5-3(2.5) Mg/3 Ml (Albuterol/Ipratropium) 3 Ml Ampul.neb 3 Ml NEB TID Fleet Enema (Na Phos,M-B/Na Phos,Di-Ba) 133 Ml Enema 1 Each RC PRN DAILY PRN Dulcolax (Bisacodyl) 10 Mg Supp.rect 10 Mg RC PRN DAILY PRN Docusate Sodium 100 Mg Capsule 1 Cap PO BID Carvedilol (Carvedilol) 12.5 Mg Tablet 12.5 Mg PO BIDWMEALS Protonix (Pantoprazole Sodium) 20 Mg Tablet.dr 40 Mg PO DAILY Voltaren (Diclofenac Sodium) 100 Gm Gel..gram. 1 Gm TP BID Zofran Odt (Ondansetron) 4 Mg Tab.rapdis 4 Mg PO Q6HRS PRN Sensipar (Cinacalcet Hcl) 30 Mg Tablet 1 Tab PO DAILY Renvela (Sevelamer Carbonate) 2.4 Gm Powd.pack 2.4 Gm PO TIDWMEALS Lumigan (Bimatoprost) 2.5 Ml Drops 1 Drop EACHEYE QHS Calcitriol 0.25 Mcg Capsule 1 Cap PO DAILY Nephro-Roland Tablet (Folic Acid/Vitamin B Comp W-C) 0.8 Mg Tablet 1 Tab PO DAILYBFRSUP Vitamin D (Cholecalciferol (Vitamin D3)) 2,000 Unit Capsule 1 Cap PO DAILY Vitals/I & O Vital Sign - Last 24 Hours 07/29/18 07/29/18 07/29/18 07/29/18 11:17 18:26 18:26 19:35 Temp 97.3 97.3 Pulse 80 87 75 Resp 20 B/P (MAP) 122/62 (82) 125/58 125/58 Pulse Ox 97 O2 Delivery Room Air Room Air 07/29/18 07/29/18 07/29/18 07/30/18 19:48 20:02 23:15 03:59 Temp 97.9 98.0 97.9 97.9 98.0 97.9 Pulse 84 77 76 Resp 16 16 16 B/P (MAP) 130/67 (88) 103/52 (69) 114/54 (74) Pulse Ox 97 100 96 92 O2 Delivery Room Air Room Air Room Air Room Air 07/30/18 07/30/18 06:20 07:56 Temp 97.9 97.9 Pulse 80 85 Resp 16 B/P (MAP) 120/50 120/50 (73) Pulse Ox 97 O2 Delivery Room Air Intake and Output 07/29/18 07/29/18 07/30/18 15:00 23:00 07:00 Intake Total 470 ml 120 ml 100 ml Balance 470 ml 120 ml 100 ml MAHSA REYNOSO MD Jul 30, 2018 08:08
[2018-07-30] MEDS: POLYETHYLENE GLYCOL 3350 17 GM PACKET. PO SCH ×2 (09:00→21:59)
[2018-07-30] MEDS: PANTOPRAZOLE 40 MG TABLET.DR. PO SCH (09:36)
[2018-07-30] MEDS: SEVELAMER CARBONATE 2.4 GM PACKET. PO SCH ×3 (09:36→17:59)
[2018-07-30] MEDS: CINACALCET HCL 30 MG TABLET PO SCH (09:37)
[2018-07-30] MEDS: LACTOBACILLUS RHAMNOSUS GG 1 CAPSULE. PO SCH ×2 (09:37→21:58)
[2018-07-30] MEDS: SENNOSIDES 8.6 MG TABLET PO SCH (09:37)
[2018-07-30] MEDS: DOCUSATE SODIUM 100 MG CAPSULE. PO SCH ×2 (09:37→21:00)
[2018-07-30] MEDS: CALCITRIOL 0.25 MCG CAPSULE. PO SCH (09:38)
[2018-07-30] MEDS: ASPIRIN 325 MG TABLET PO SCH (09:38)
[2018-07-30] MEDS: CHOLECALCIFEROL (VITAMIN D3) 1,000 UNIT TABLET PO SCH (09:38)
[2018-07-30] MEDS: guaiFENesin DM 200MG/20MG 10 ML SYRUP PO SCH ×4 (09:38→21:59)
[2018-07-30] MEDS: DICLOFENAC SODIUM 1% TOPICAL GEL 100GM TUBE. TP SCH ×2 (09:39→21:59)
--- NOTE | 2018-07-30 12:15 | PDOC ---
Subjective: Subjective: Nods and shakes head when I ask her how she's feeling. I asked if she's always this quiet and she says "there's nothing to talk about." Indicates no bleeding and indicates she is tolerating diet. Daughter says cough remains the same. Objective: Vital Signs: Vital Signs Date Time Temp Pulse Resp B/P (MAP) Pulse Ox O2 Delivery O2 Flow Rate FiO2 07/30/18 10:53 97.4 79 16 141/60 (87) 95 Room Air 97.4 Labs: Laboratory Tests Test 07/29/18 17:56 07/29/18 20:38 07/30/18 00:05 07/30/18 06:15 Glucose (Fingerstick) 121 mg/dL 190 mg/dL Prothrombin Time 18.3 SEC Prothromb Time International Ratio 1.6 Heparin Anti-Xa Act, Unfractionated 0.40 IU/mL 0.37 IU/mL Test 07/30/18 07:42 07/30/18 11:35 Glucose (Fingerstick) 118 mg/dL 174 mg/dL PE: GEN: NAD, up to chair LUNGS: deep cough, clear anteriorly HEART: RRR ABD: S/ND/NT NEURO/PSYCH: A & O 3 A/P: Chronic anemia - no further GI bleeding on Warfarin and Heparin, on PPI -- Stable from GI standpoint. REDD NAVARRO Jul 30, 2018 12:15
--- NOTE | 2018-07-30 12:24 | PDOC ---
Renal-Progress Notes Subjective Notes Notes STILL VERY WEAK History of Present Illness Hx of present illness STABLE BUT WEAK Vitals Vitals Vital Signs Date Time Temp Pulse Resp B/P (MAP) Pulse Ox O2 Delivery O2 Flow Rate FiO2 07/30/18 12:18 90 Room Air 07/30/18 10:53 97.4 79 16 141/60 (87) 97.4 Weight Weight [ ] I.O. Intake and Output Intake and Output 07/30/18 06:59 Intake Total 690 ml Balance 690 ml Intake Oral 340 ml IV Total 350 ml # Voids 2 # Bowel Movements 4 Labs Labs Laboratory Tests Test 07/29/18 17:56 07/29/18 20:38 07/30/18 00:05 07/30/18 06:15 Glucose (Fingerstick) 121 mg/dL (70-99) 190 mg/dL (70-99) Prothrombin Time 18.3 SEC (11.7-14.0) Prothromb Time International Ratio 1.6 (0.8-1.1) Heparin Anti-Xa Act, Unfractionated 0.40 IU/mL (0.30-0.70) 0.37 IU/mL (0.30-0.70) Test 07/30/18 07:42 07/30/18 11:35 Glucose (Fingerstick) 118 mg/dL (70-99) 174 mg/dL (70-99) Review of Systems Constitutional: yes: weakness, alert Ears/Nose/Throat: Yes: dysphagia Cardiovascular: Yes no symptom reported Gastrointestional: Yes: constipation Genitourinary: Yes: no symptom reported Musculoskeletal: Yes: muscle stiffness Skin: Yes no symptom reported Psychiatric/Neurological: Yes: no symptom reported Endocrine: Yes: no symptom reported Physical Exam General Appearance: no apparent distress Skin: warm Respiratory: decreased breath sounds Heart: S1S2, RRR Abdomen: soft Genitourinary: bladder flat, no mass Extremities: pulses present, no edema, atrophy Neurology: alert, follow commands Assessment Assessment IMP DYSPNEA HYPOTENSION HYPERVOLEMIA ESRD-TTS ANEMIA DECONDITIONING DM II DYSPHAGIA PLAN HD TOMORROW MIDODRINE DOING BETTER UPDATED DAUGHTER NEEDS LTAC OR SHE WILL PROB [employer] DENYING [facility] PROB GOING TO [facility] WILL FOLLOW NANCY CALERO MD Jul 30, 2018 12:24
--- NOTE | 2018-07-30 14:50 | NUR ---
SS following up with discharge planning. [facility] denied LTAC and is still pending authorization for snf unit at this time. SS phoned and faxed clinical updates to [facility], ; fax [phone] per [facility] request. Family requesting full aggressive care at this time. SS will continue to follow for discharge planning.
[2018-07-30] MEDS: ANTI-COAG MONITOR BY PHARMACY. MC PRN (15:03)
--- NOTE | 2018-07-30 15:09 | NUR ---
Pharmacy Warfarin Dosing Note S:Pharmacy consulted to assist with anticoagulation therapy started with target INR: 2 -3 O:JOHNNY BENÍTEZ is a 87 year old F with UPPER EXTREMITY DVT LABS: Last INR: 1.6 Last HGB: 11.2 Last HCT: 34.1 Last PLT: 168 Last dose of 2 mg given on 07/29/18 at 1827 Previous Regimen: NA Vitamin K given: N Drug Interaction Changes: Same Interacting Drug Ongoing Drug Interactions: ASA A:INR of 1.6 is below desired range. Target range for this patient is: 2 -3 P: Warfarin dose: 2 mg Today at 1600 [address] Therapy: Heparin Therapeutic CONT Next INR due 07/31/18 Pharmacy anticoagulation service will continue to follow. JOSE ALEJANDRO KEENE, [facility], 07/30/18 [id number]
[2018-07-30] MEDS ORDERED: WARFARIN 2 MG TABLET. PO ONE (16:00)
[2018-07-30] MEDS: FOLIC/VIT B COMP W-C (RENAL) TABLET. PO SCH (17:59)
--- NOTE | 2018-07-30 19:30 | NUR ---
DR SCHULTZ CONSULTED REGARDING PTS CONTINUAL BLEEDING ON RIGHT ARM AT DIALYSIS ACCESS POINTS WELL BRUISING AND SWELLING. ORDERS GIVEN TO HOLD HEPARIN, COUMADIN AND US FOR AM OF RIGHT ARM AND VPADS, GAUZE AND HENRY WARP TO ARM.
[2018-07-30] MEDS: LATANOPROST 0.005% OPHTH SOLUTION 2.5ML BOTTLE. OU SCH (21:58)
[2018-07-30] MEDS: INSULIN GLARGINE 300 UNITS/3 ML INSULN.PEN. SQ SCH (22:01)
[2018-07-31 03:59] VITALS: BP 135/58
[2018-07-31 06:13] LABS: BASO % 0 % (0-3); EOS % 0 % (0-3); HEMOGLOBIN 9.3 g/dL (12.0-15.5); LYMPH # 0.6 x10^3/uL (1.0-4.8); LYMPH % 4 % (24-48); MEAN CORPUSCULAR HEMOGLOBIN 35 pg (25-35); MEAN CORPUSCULAR HGB CONC 33 g/dL (31-37); MEAN CORPUSCULAR VOLUME 106 fL (79-100); MONO % 6 % (0-9); NEUT # 15.7 x10^3uL (1.8-7.7); NEUT % 91 % (31-73); PLATELET COUNT 144 x10^3/uL (140-400); RED BLOOD COUNT 2.64 x10^6/uL (3.50-5.40); WHITE BLOOD COUNT 17.3 x10^3/uL (4.0-11.0)
[2018-07-31] MEDS: methylPREDNISolone SOD SUCC PF 40 MG/ML VIAL. IV SCH ×3 (06:16→21:45)
[2018-07-31] MEDS: MIDODRINE 2.5 MG TABLET PO SCH ×3 (06:20→18:11)
[2018-07-31 06:24] LABS: PROTHROMBIN TIME PATIENT 16.1 SEC (11.7-14.0)
[2018-07-31 06:31] LABS: ALBUMIN 2.7 g/dL (3.4-5.0); CALCIUM 7.6 mg/dL (8.5-10.1); CREATININE 3.6 mg/dL (0.6-1.0); PHOSPHORUS 3.1 mg/dL (2.6-4.7); POTASSIUM 5.1 mmol/L (3.5-5.1)
[2018-07-31 07:00] VITALS: BP 97/55
[2018-07-31] MEDS: IPRATRPIUM/ALBUTEROL 0.5/2.5MG 3 ML NEBU. NEB SCH ×4 (08:00→20:17)
[2018-07-31] MEDS: INSULIN LISPRO 300 UNITS/3 ML INSULN.PEN. SQ SCH ×6 (08:00→17:00)
--- NOTE | 2018-07-31 08:11 | PDOC ---
PROGRESS NOTES Chief Complaint Chief Complaint SOA, fluid overload and treating HCAP ESRD on dialysis-did not finish dialysis Existing AV fistula Hypotension, resolved now hypertension Anemia of chronic disease severe Generalized weakness SNU resident Diabetes type 2 on low-dose insulin uncontrolled// inc lantus to 14 units sq hs symptomatic with lethargy hypotension dysphagia, malnutrition MARKED DEBILITY, WEAKNESS Penetration of thin liquids w/ large drinks via cup, chin tuck and straw drinking were observed. Decreasing bolus size, keeping head in neutral position and alternating or utilizing a dry swallow were all effective strategies. No aspiration was observed during this evaluation. Occlusive thrombus in one brachial vein in the left upper arm surrounding an indwelling PICC line, on heparin for clot Dysphagia II diet w/ thin liquids, AGREE WITH LTAC/ PLANS REMAINS TO HAVE MARKED DECLINES SLOW TO IMPROVE with variability day to day, High risk of additional complications and readmission History of Present Illness History of Present Illness 87-year-old female //admitted from 07/10 thru 07/15, discharge 4 days [employer] to [facility] , 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 Bleeding from HD fistula, heparin level high, INR was up but has not been on coumadin which was started last night. Patchy ground glass opacification of the lungs. Dysphagia and aspiration 07/30: She is not speaking much today. her AV fistula started spurting blood again last night. She is still very weak and dejected today. Held heparin and coumadin for AV fistula bleeding > 24 hours. This morning she is still in poor spirits. Denies CP, has shortness of breath and c/o dysphagia, encouraged to sit up in bed. AV fistula bleeding seems to have stopped. She is more weak today, requiring some assistance even with eating. Plan: MOD-SEVERE protein-caloric malnutrition - on PPN, eating 50% and more from her meals, may benefit from backing off PPN as she is getting fluid overloaded. She may need to get back on PPN/TPN based on not eating again today. LTAC may actually be most appropriate for her. US RUE: 1. Patent AV fistula in the right upper arm containing a small bit of thrombus. 2. Small hypoechoic process adjacent to the fistula at the lateral antecubital fossa level, most likely representing a small hematoma. Vitals Vitals Vital Signs Date Time Temp Pulse Resp B/P (MAP) Pulse Ox O2 Delivery O2 Flow Rate FiO2 07/31/18 07:00 97.5 74 18 97/55 (69) 98 Room Air 97.5 Physical Exam Physical Exam GENERAL: Propped up in bed, awake, Looks well HEENT: anicteric getting breathing treatment LUNGS: Mild congestion - bilat HEART: S1, S2. ABDOMEN: , soft and nontender. EXTREMITIES: No edema, no cyanosis. SKIN: No generalized rash. Chronic skin changes present in both lower extremities. PET WALKER: Awake, appropriate RIJ (07/25) without signs of any complications AVF bandaged/bleeding General: Alert, Oriented X3, Cooperative, No acute distress Heart: Regular rate, Normal S1, Normal S2, No murmurs, Gallops Lungs: Crackles (less crackles) Abdomen: Normal bowel sounds, Soft, No tenderness, No hepatosplenomegaly, No masses Extremities: No clubbing, No cyanosis, No edema, Normal pulses, No tenderness/ swelling Skin: No rashes, No breakdown, No significant lesion Labs LABS Laboratory Tests Test 07/30/18 11:35 07/30/18 12:29 07/30/18 17:38 07/30/18 20:36 Glucose (Fingerstick) 174 mg/dL (70-99) 211 mg/dL (70-99) 165 mg/dL (70-99) Heparin Anti-Xa Act, Unfractionated 0.56 IU/mL (0.30-0.70) Test 07/31/18 05:50 07/31/18 07:16 White Blood Count 17.3 x10^3/uL (4.0-11.0) Red Blood Count 2.64 x10^6/uL (3.50-5.40) Hemoglobin 9.3 g/dL (12.0-15.5) Hematocrit 28.0 % (36.0-47.0) Mean Corpuscular Volume 106 fL (79-100) Mean Corpuscular Hemoglobin 35 pg (25-35) Mean Corpuscular Hemoglobin Concent 33 g/dL (31-37) Red Cell Distribution Width 17.0 % (11.5-14.5) Platelet Count 144 x10^3/uL (140-400) Neutrophils (%) (Auto) 91 % (31-73) Lymphocytes (%) (Auto) 4 % (24-48) Monocytes (%) (Auto) 6 % (0-9) Eosinophils (%) (Auto) 0 % (0-3) Basophils (%) (Auto) 0 % (0-3) Neutrophils # (Auto) 15.7 x10^3uL (1.8-7.7) Lymphocytes # (Auto) 0.6 x10^3/uL (1.0-4.8) Monocytes # (Auto) 1.0 x10^3/uL (0.0-1.1) Eosinophils # (Auto) 0.0 x10^3/uL (0.0-0.7) Basophils # (Auto) 0.0 x10^3/uL (0.0-0.2) Prothrombin Time 16.1 SEC (11.7-14.0) Prothromb Time International Ratio 1.3 (0.8-1.1) Sodium Level 136 mmol/L (136-145) Potassium Level 5.1 mmol/L (3.5-5.1) Chloride Level 97 mmol/L (98-107) Carbon Dioxide Level 27 mmol/L (21-32) Anion Gap 12 (6-14) Blood Urea Nitrogen 46 mg/dL (7-20) Creatinine 3.6 mg/dL (0.6-1.0) Estimated GFR (Cockcroft-Gault) 12.0 Glucose Level 72 mg/dL (70-99) Calcium Level 7.6 mg/dL (8.5-10.1) Phosphorus Level 3.1 mg/dL (2.6-4.7) Albumin 2.7 g/dL (3.4-5.0) Glucose (Fingerstick) 70 mg/dL (70-99) Assessment and Plan Assessmemt and Plan Problems Medical Problems: (1) Congestive heart failure Status: Acute Comment Review of Relevant I have reviewed the following items smith (where applicable) has been applied. Labs Laboratory Tests Test 07/29/18 11:50 07/29/18 17:56 07/29/18 20:38 07/30/18 00:05 Heparin Anti-Xa Act, Unfractionated 0.73 IU/mL (0.30-0.70) 0.40 IU/mL (0.30-0.70) Glucose (Fingerstick) 247 mg/dL (70-99) 121 mg/dL (70-99) 190 mg/dL (70-99) Prothrombin Time 18.3 SEC (11.7-14.0) Prothromb Time International Ratio 1.6 (0.8-1.1) Test 07/30/18 06:15 07/30/18 07:42 07/30/18 11:35 07/30/18 12:29 Heparin Anti-Xa Act, Unfractionated 0.37 IU/mL (0.30-0.70) 0.56 IU/mL (0.30-0.70) Glucose (Fingerstick) 118 mg/dL (70-99) 174 mg/dL (70-99) Test 07/30/18 17:38 07/30/18 20:36 07/31/18 05:50 07/31/18 07:16 Glucose (Fingerstick) 211 mg/dL (70-99) 165 mg/dL (70-99) 70 mg/dL (70-99) White Blood Count 17.3 x10^3/uL (4.0-11.0) Red Blood Count 2.64 x10^6/uL (3.50-5.40) Hemoglobin 9.3 g/dL (12.0-15.5) Hematocrit 28.0 % (36.0-47.0) Mean Corpuscular Volume 106 fL (79-100) Mean Corpuscular Hemoglobin 35 pg (25-35) Mean Corpuscular Hemoglobin Concent 33 g/dL (31-37) Red Cell Distribution Width 17.0 % (11.5-14.5) Platelet Count 144 x10^3/uL (140-400) Neutrophils (%) (Auto) 91 % (31-73) Lymphocytes (%) (Auto) 4 % (24-48) Monocytes (%) (Auto) 6 % (0-9) Eosinophils (%) (Auto) 0 % (0-3) Basophils (%) (Auto) 0 % (0-3) Neutrophils # (Auto) 15.7 x10^3uL (1.8-7.7) Lymphocytes # (Auto) 0.6 x10^3/uL (1.0-4.8) Monocytes # (Auto) 1.0 x10^3/uL (0.0-1.1) Eosinophils # (Auto) 0.0 x10^3/uL (0.0-0.7) Basophils # (Auto) 0.0 x10^3/uL (0.0-0.2) Prothrombin Time 16.1 SEC (11.7-14.0) Prothromb Time International Ratio 1.3 (0.8-1.1) Sodium Level 136 mmol/L (136-145) Potassium Level 5.1 mmol/L (3.5-5.1) Chloride Level 97 mmol/L (98-107) Carbon Dioxide Level 27 mmol/L (21-32) Anion Gap 12 (6-14) Blood Urea Nitrogen 46 mg/dL (7-20) Creatinine 3.6 mg/dL (0.6-1.0) Estimated GFR (Cockcroft-Gault) 12.0 Glucose Level 72 mg/dL (70-99) Calcium Level 7.6 mg/dL (8.5-10.1) Phosphorus Level 3.1 mg/dL (2.6-4.7) Albumin 2.7 g/dL (3.4-5.0) Laboratory Tests Test 07/30/18 11:35 07/30/18 12:29 07/30/18 17:38 07/30/18 20:36 Glucose (Fingerstick) 174 mg/dL (70-99) 211 mg/dL (70-99) 165 mg/dL (70-99) Heparin Anti-Xa Act, Unfractionated 0.56 IU/mL (0.30-0.70) Test 07/31/18 05:50 07/31/18 07:16 White Blood Count 17.3 x10^3/uL (4.0-11.0) Red Blood Count 2.64 x10^6/uL (3.50-5.40) Hemoglobin 9.3 g/dL (12.0-15.5) Hematocrit 28.0 % (36.0-47.0) Mean Corpuscular Volume 106 fL (79-100) Mean Corpuscular Hemoglobin 35 pg (25-35) Mean Corpuscular Hemoglobin Concent 33 g/dL (31-37) Red Cell Distribution Width 17.0 % (11.5-14.5) Platelet Count 144 x10^3/uL (140-400) Neutrophils (%) (Auto) 91 % (31-73) Lymphocytes (%) (Auto) 4 % (24-48) Monocytes (%) (Auto) 6 % (0-9) Eosinophils (%) (Auto) 0 % (0-3) Basophils (%) (Auto) 0 % (0-3) Neutrophils # (Auto) 15.7 x10^3uL (1.8-7.7) Lymphocytes # (Auto) 0.6 x10^3/uL (1.0-4.8) Monocytes # (Auto) 1.0 x10^3/uL (0.0-1.1) Eosinophils # (Auto) 0.0 x10^3/uL (0.0-0.7) Basophils # (Auto) 0.0 x10^3/uL (0.0-0.2) Prothrombin Time 16.1 SEC (11.7-14.0) Prothromb Time International Ratio 1.3 (0.8-1.1) Sodium Level 136 mmol/L (136-145) Potassium Level 5.1 mmol/L (3.5-5.1) Chloride Level 97 mmol/L (98-107) Carbon Dioxide Level 27 mmol/L (21-32) Anion Gap 12 (6-14) Blood Urea Nitrogen 46 mg/dL (7-20) Creatinine 3.6 mg/dL (0.6-1.0) Estimated GFR (Cockcroft-Gault) 12.0 Glucose Level 72 mg/dL (70-99) Calcium Level 7.6 mg/dL (8.5-10.1) Phosphorus Level 3.1 mg/dL (2.6-4.7) Albumin 2.7 g/dL (3.4-5.0) Glucose (Fingerstick) 70 mg/dL (70-99) Medications Current Medications Albuterol/ Ipratropium (Duoneb) 3 ml 1X ONCE NEB Last administered on at 12:57; Start 07/19/18 at 12:45; Stop 07/19/18 at 12:46; Status DC Ondansetron HCl (Zofran) 4 mg PRN Q8HRS PRN IV NAUSEA/VOMITING; Start 07/19/18 at 14:30; Stop 07/20/18 at 14:29; Status DC Acetaminophen (Tylenol) 650 mg PRN Q4HRS PRN PO FEVER; Start 07/19/18 at 14:30 ; Stop 07/20/18 at 08:37; Status DC Nitroglycerin (Nitrostat) 0.4 mg PRN Q5MIN PRN SL CHEST PAIN; Start 07/19/18 at 14:30; Stop 07/20/18 at 14:29; Status DC Albuterol/ Ipratropium (Duoneb) 3 ml RTQID NEB ; Start 07/19/18 at 16:00; Stop 07/20/18 at 15:59; Status Cancel Aspirin (Tracee Aspirin) 325 mg DAILY PO Last administered on 07/30/18 09:38; Start 07/19/18 at 15:00 Carvedilol (Coreg) 3.125 mg BIDWMEALS PO ; Start 07/19/18 at 17:00; Stop at 19:42; Status DC Cinacalcet (Sensipar) 30 mg DAILY PO Last administered on 07/30/18 09:37; Start 07/19/18 at 15:00 Diclofenac Sodium (Voltaren) 1 grisel BID TP Last administered on 07/30/18 21:59; Start 07/19/18 at 21:00 Fentanyl (Duragesic 12mcg/ Hr Patch) 1 patch Q3DAYS TD ; Start 07/19/18 at 15:00 ; Stop 07/19/18 at 19:42; Status DC Vitamin B Complex/ Vitamin C (Bela-Roland) 1 tab DAILYBFRSUP PO Last administered on 07/30/18 17:59; Start 07/19/18 at 17:00 Ondansetron HCl (Zofran Odt) 4 mg PRN Q6HRS PRN PO NAUSEA/VOMITING; Start 07/19 at 14:45 Sevelamer Carbonate (Renvela) 2.4 gm TIDWMEALS PO Last administered on 17:59; Start 07/19/18 at 17:00 Acetaminophen (Tylenol) 500 mg PRN Q6HRS PRN PO MILD PAIN / TEMP; Start at 14:45 Latanoprost (Xalatan) 1 drop QHS OU Last administered on 07/30/18 21:58; Start 07/19/18 at 21:00 Calcitriol (Rocaltrol) 0.25 mcg DAILY PO Last administered on 07/30/18 09:38; Start 07/20/18 at 09:00 Vitamin D (Vitamin D3) 1,000 unit DAILY PO Last administered on 07/30/18 09:38 ; Start 07/20/18 at 09:00 Hydromorphone HCl (Dilaudid) 2 mg PRN Q8HRS PRN PO MODERATE PAIN, SEVERE PAIN; Start 07/19/18 at 15:00; Stop 07/20/18 at 09:31; Status DC Insulin Glargine (Lantus) 5 units QHS SQ Last administered on 07/26/18 21:46; Start 07/19/18 at 21:00; Stop 07/27/18 at 10:00; Status DC Non-Formulary Medication (Latanoprost/Pf (Latanoprost 0.005% Eye Drop)) 7.5 ml QHS OP ; Start 07/19/18 at 21:00; Status UNV Pantoprazole Sodium (Protonix) 40 mg DAILYAC PO Last administered on 07/24/18at 11:17; Start 07/20/18 at 07:30; Stop 07/27/18 at 09:10; Status DC Piperacillin Sod/ Tazobactam Sod (Zosyn Per Pharmacy) 1 each PRN DAILY PRN MC SEE COMMENTS; Start 07/19/18 at 14:45; Stop 07/24/18 at 11:11; Status DC Albuterol/ Ipratropium (Duoneb) 3 ml RTQID NEB Last administered on 07/30/18 20 :43; Start 07/19/18 at 16:00 Guaifenesin (Robitussin Dm) 10 ml QID PO Last administered on 07/30/18 21:59; Start 07/19/18 at 17:00 Temazepam (Restoril) 7.5 mg PRN QHS PRN PO INSOMNIA Last administered on 20:42; Start 07/19/18 at 14:45 Insulin Human Lispro (HumaLOG) 0-7 UNITS TIDWMEALS SQ Last administered on at 18:20; Start 07/19/18 at 17:00 Dextrose (Dextrose 50%-Water Syringe) 12.5 gm PRN Q15MIN PRN IV SEE COMMENTS; Start 07/19/18 at 14:45 Piperacillin Sod/ Tazobactam Sod 2.25 gm/Sodium Chloride 50 ml @ 100 mls/hr Q8H IV Last administered on 07/24/18at 00:10; Start 07/19/18 at 16:00; Stop at 08:08; Status DC Furosemide (Lasix) 40 mg 1X ONCE IVP Last administered on 07/19/18at 14:52; Start 07/19/18 at 14:45; Stop 07/19/18 at 14:52; Status DC Docusate Sodium (Colace) 100 mg BID PO Last administered on 07/30/18 09:37; Start 07/19/18 at 21:00 Magnesium Hydroxide (Milk Of Magnesia) 2,400 mg PRN DAILY PRN PO CONSTIPATION; Start 07/19/18 at 19:45 Sodium Monofluorophosphate (Fleet Adult) 133 ml PRN DAILY PRN RC CONSTIPATION; Start 07/19/18 at 19:45; Stop 07/22/18 at 12:17; Status DC Bisacodyl (Dulcolax Supp) 10 mg PRN DAILY PRN ND CONSTIPATION 1ST CHOICE; Start 07/19/18 at 19:45 Polyethylene Glycol (miraLAX PACKET) 17 gm BID PO Last administered on 21:59; Start 07/19/18 at 21:00 Sennosides (Senna) 8.6 mg DAILY PO Last administered on 07/30/18 09:37; Start 07/20/18 at 09:00 Lactobacillus Rhamnosus (Culturelle) 1 cap BID PO Last administered on 21:58; Start 07/20/18 at 21:00 Methylprednisolone Sodium Succinate (SOLU-Medrol 40MG VIAL) 40 mg Q8HRS IV Last administered on 07/31/18 06:16; Start 07/20/18 at 14:00 Albumin Human 250 ml @ 62.5 mls/hr PRN Q6HRS PRN IV for MAP < 65 Last administered on 07/21/18 20:45; Start 07/20/18 at 09:45 Magnesium Sulfate 50 ml @ 25 mls/hr PRN DAILY PRN IV for Mag < 1.7 on am labs; Start 07/20/18 at 09:45 Dopamine HCl/ Dextrose 250 ml @ 6.124 mls/ hr CONT PRN IV SEE I/O RECORD Last administered on 07/24/18at 20:37; Start 07/20/18 at 12:00; Stop 07/26/18 at 14:13 ; Status DC Sodium Chloride 1,000 ml @ 1,000 mls/hr Q1H PRN IV hypotension; Start 07/21/18 at 13:00; Stop 07/21/18 at 18:59; Status DC Sodium Chloride 1,000 ml @ 400 mls/hr Q2H30M PRN IV PATENCY; Start 07/21/18 at 13:00; Stop 07/22/18 at 00:59; Status DC Info (PHARMACY MONITORING -- do not chart) 1 each PRN DAILY PRN MC SEE COMMENTS ; Start 07/21/18 at 13:30; Status UNV Info (PHARMACY MONITORING -- do not chart) 1 each PRN DAILY PRN MC SEE COMMENTS ; Start 07/21/18 at 13:30; Stop 07/24/18 at 07:10; Status DC Albumin Human 100 ml @ 100 mls/hr 1X ONCE IV Last administered on 07/21/18at 14:00; Start 07/21/18 at 13:30; Stop 07/21/18 at 14:29; Status DC Sodium Chloride 500 ml @ 500 mls/hr 1X ONCE IV Last administered on at 11:14; Start 07/22/18 at 11:15; Stop 07/22/18 at 12:14; Status DC Digoxin (Lanoxin) 125 mcg QMWF@1600 PO ; Start 07/23/18 at 16:00; Stop 07/23/18 at 16:00; Status DC Digoxin (Lanoxin) 125 mcg 1X ONCE PO Last administered on 07/22/18at 12:26; Start 07/22/18 at 12:00; Stop 07/22/18 at 12:01; Status DC Midodrine (Proamatine) 2.5 mg [id number] PO Last administered on 07/31/18at 06:20; Start 07/22/18 at 13:00 Digoxin (Lanoxin) 125 mcg QTUTHSA PO Last administered on 07/29/18at 18:26; Start 07/24/18 at 16:00 Sodium Chloride 500 ml @ 500 mls/hr 1X ONCE IV Last administered on at 15:42; Start 07/23/18 at 15:00; Stop 07/23/18 at 15:59; Status DC Sodium Chloride 1,000 ml @ 1,000 mls/hr Q1H PRN IV hypotension; Start 07/24/18 at 06:59; Stop 07/24/18 at 12:58; Status DC Albumin Human 200 ml @ 200 mls/hr 1X PRN PRN IV Hypotension Last administered on 07/24/18at 08:09; Start 07/24/18 at 07:00; Stop 07/24/18 at 12:59; Status DC Sodium Chloride 1,000 ml @ 400 mls/hr Q2H30M PRN IV PATENCY; Start 07/24/18 at 06:59; Stop 07/24/18 at 18:58; Status DC Info (PHARMACY MONITORING -- do not chart) 1 each PRN DAILY PRN MC SEE COMMENTS ; Start 07/24/18 at 07:00; Stop 07/25/18 at 11:17; Status DC Info (PHARMACY MONITORING -- do not chart) 1 each PRN DAILY PRN MC SEE COMMENTS ; Start 07/24/18 at 07:00; Status UNV Amoxicillin/ Clavulanate Potassium (Augmentin 500/ 125mg) 1 tab BID PO Last administered on 07/24/18at 11:16; Start 07/24/18 at 09:00; Stop 07/25/18 at 09:21 ; Status DC Amino Acids/ Glycerin/ Electrolytes 1,000 ml @ 50 mls/hr Q20H IV Last administered on 07/28/18at 21:12; Start 07/24/18 at 17:00; Stop 07/29/18 at 08:56; Status DC Heparin Sodium/ Dextrose 500 ml @ 0 mls/hr CONT PRN IV SEE I/O RECORD; Start at 19:30; Status Cancel Heparin Sodium (Porcine) (Heparin Sodium) 6,850 unit 1X ONCE IV Last administered on 07/24/18at 19:38; Start 07/24/18 at 19:30; Stop 07/24/18 at 19:33 ; Status DC Heparin Sodium/ Dextrose 500 ml @ 0 mls/hr CONT PRN IV SEE I/O RECORD; Start at 19:30; Status UNV Heparin Sodium (Porcine) (Heparin Sodium) 2,550 unit PRN Q6HRS PRN IV FOR UFH LEVEL LESS THAN 0.2; Start 07/24/18 at 19:30 Heparin Sodium (Porcine) (Heparin Sodium) 1,300 unit PRN Q6HRS PRN IV FOR UFH LEVEL 0.2 - 0.29 Last administered on 07/25/18at 23:25; Start 07/24/18 at 19:30 Heparin Sodium/ Dextrose 500 ml @ 0 mls/hr CONT PRN IV SEE I/O RECORD Last administered on 07/30/18at 04:32; Start 07/24/18 at 19:45 Sodium Chloride 1,000 ml @ 1,000 mls/hr Q1H PRN IV hypotension; Start 07/25/18 at 08:22; Stop 07/25/18 at 14:21; Status DC Albumin Human 200 ml @ 200 mls/hr 1X ONCE IV Last administered on 07/25/18at 08:49; Start 07/25/18 at 08:30; Stop 07/25/18 at 09:29; Status DC Diphenhydramine HCl (Benadryl) 25 mg 1X PRN PRN IV ITCHING; Start 07/25/18 at 08:30; Stop 07/26/18 at 08:29; Status DC Diphenhydramine HCl (Benadryl) 25 mg 1X PRN PRN IV ITCHING; Start 07/25/18 at 08:30; Stop 07/26/18 at 08:29; Status DC Sodium Chloride 1,000 ml @ 400 mls/hr Q2H30M PRN IV PATENCY; Start 07/25/18 at 08:22; Stop 07/25/18 at 20:21; Status DC Info (PHARMACY MONITORING -- do not chart) 1 each PRN DAILY PRN MC SEE COMMENTS ; Start 07/25/18 at 08:30; Stop 07/26/18 at 14:10; Status DC Piperacillin Sod/ Tazobactam Sod 2.25 gm/Sodium Chloride 50 ml @ 100 mls/hr Q8HRS IV Last administered on 07/28/18at 05:07; Start 07/25/18 at 09:30; Stop 07/28/18 at 09:31; Status DC Info (Anti-Coagulation Monitoring By Pharmacy) 1 each PRN DAILY PRN MC SEE COMMENTS Last administered on 07/30/18at 15:03; Start 07/25/18 at 11:30 Info (PHARMACY MONITORING -- do not chart) 1 each PRN DAILY PRN MC SEE COMMENTS ; Start 07/26/18 at 08:15 Info (PHARMACY MONITORING -- do not chart) 1 each PRN DAILY PRN MC SEE COMMENTS ; Start 07/26/18 at 08:15; Stop 07/26/18 at 08:17; Status DC Barium Sulfate (Varibar Thin Liquid Apple) 148 gm 1X ONCE PO Last administered on 07/26/18at 13:30; Start 07/26/18 at 13:30; Stop 07/26/18 at 13:31 ; Status DC Pantoprazole Sodium (PROTONIX VIAL for IV PUSH) 40 mg DAILYAC IVP Last administered on 07/28/18at 07:54; Start 07/27/18 at 11:30; Stop 07/28/18 at 10:43; Status DC Insulin Glargine (Lantus) 9 units QHS SQ Last administered on 07/27/18at 20:52; Start 07/27/18 at 21:00; Stop 07/28/18 at 14:03; Status DC Insulin Human Lispro (HumaLOG) 4 units TIDWMEALS SQ Last administered on 18:21; Start 07/27/18 at 12:00 Pantoprazole Sodium (Protonix) 40 mg DAILYAC PO Last administered on 07/30/18at 09:36; Start 07/29/18 at 07:30 Insulin Glargine (Lantus) 14 units QHS SQ Last administered on 07/30/18at 22:01; Start 07/28/18 at 21:00 Warfarin Sodium (Coumadin) 2.5 mg DAILY16 PO ; Start 07/29/18 at 16:00; Stop 07/29 at 16:00; Status DC Warfarin Sodium (Coumadin Per Pharmacy) 1 each PRN DAILY PRN MC SEE COMMENTS Last administered on 07/30/18at 15:03; Start 07/29/18 at 09:00 Warfarin Sodium (Coumadin) 2 mg 1X WARF ONCE PO Last administered on 07/29/18 18:27; Start 07/29/18 at 16:00; Stop 4/2/19 at 16:01; Status DC Sodium Chloride 1,000 ml @ 1,000 mls/hr Q1H PRN IV hypotension; Start 07/29/18 at 13:50; Stop 07/29/18 at 19:49; Status DC Info (PHARMACY MONITORING -- do not chart) 1 each PRN DAILY PRN MC SEE COMMENTS ; Start 07/29/18 at 14:00 Info (PHARMACY MONITORING -- do not chart) 1 each PRN DAILY PRN MC SEE COMMENTS ; Start 07/29/18 at 14:00; Status UNV Warfarin Sodium (Coumadin) 2 mg 1X WARF ONCE PO ; Start 07/30/18 at 16:00; Stop 07/30/18 at 16:01; Status DC Active Scripts Active Levemir (Insulin Detemir) 100 Unit/1 Ml Vial 5 Unit SQ QHS 30 Days Hold for < 140mg/dL Aspirin 325 Mg Tablet 1 Tab PO DAILY Reported Amlodipine Besylate 10 Mg Tablet 10 Mg PO DAILY Tylenol (Acetaminophen) 325 Mg Tablet 2 Tab PO PRN Q6HRS PRN Senna (Sennosides) 8.6 Mg Tablet 8.6 Mg PO DAILY Novolog Flexpen (Insulin Aspart) 100 Unit/1 Ml Insuln.pen 1 Unit SQ TIDAC Miralax (Polyethylene Glycol 3350) 17 Gm Powd.pack 1 Packet PO BID Milk Of Magnesia (Magnesium Hydroxide) 400 Mg/5 Ml Oral.susp 30 Ml PO PRN DAILY Duoneb 0.5-3(2.5) Mg/3 Ml (Albuterol/Ipratropium) 3 Ml Ampul.neb 3 Ml NEB TID Fleet Enema (Na Phos,M-B/Na Phos,Di-Ba) 133 Ml Enema 1 Each RC PRN DAILY PRN Dulcolax (Bisacodyl) 10 Mg Supp.rect 10 Mg RC PRN DAILY PRN Docusate Sodium 100 Mg Capsule 1 Cap PO BID Carvedilol (Carvedilol) 12.5 Mg Tablet 12.5 Mg PO BIDWMEALS Protonix (Pantoprazole Sodium) 20 Mg Tablet.dr 40 Mg PO DAILY Voltaren (Diclofenac Sodium) 100 Gm Gel..gram. 1 Gm TP BID Zofran Odt (Ondansetron) 4 Mg Tab.rapdis 4 Mg PO Q6HRS PRN Sensipar (Cinacalcet Hcl) 30 Mg Tablet 1 Tab PO DAILY Renvela (Sevelamer Carbonate) 2.4 Gm Powd.pack 2.4 Gm PO TIDWMEALS Lumigan (Bimatoprost) 2.5 Ml Drops 1 Drop EACHEYE QHS Calcitriol 0.25 Mcg Capsule 1 Cap PO DAILY Nephro-Roland Tablet (Folic Acid/Vitamin B Comp W-C) 0.8 Mg Tablet 1 Tab PO DAILYBFRSUP Vitamin D (Cholecalciferol (Vitamin D3)) 2,000 Unit Capsule 1 Cap PO DAILY Vitals/I & O Vital Sign - Last 24 Hours 07/30/18 07/30/18 07/30/18 07/30/18 10:53 12:18 13:17 13:36 Temp 97.4 97.4 Pulse 79 79 84 Resp 16 18 B/P (MAP) 141/60 (87) 141/60 124/64 (84) Pulse Ox 95 90 O2 Delivery Room Air Room Air Room Air 07/30/18 07/30/18 07/30/18 07/30/18 14:52 16:01 18:15 19:50 Temp 97.3 97.3 Pulse 74 77 Resp 16 B/P (MAP) 124/57 (79) 138/63 Pulse Ox 94 94 O2 Delivery Room Air Room Air Room Air 07/30/18 07/30/18 07/30/18 07/31/18 19:53 20:37 22:23 03:59 Temp 98.2 98.2 97.5 98.2 98.2 97.5 Pulse 99 78 76 Resp 16 18 16 B/P (MAP) 122/51 (74) 119/42 (67) 135/58 (83) Pulse Ox 96 94 97 96 O2 Delivery Room Air Room Air Room Air Room Air 07/31/18 07/31/18 06:20 07:00 Temp 97.5 97.5 Pulse 78 74 Resp 18 B/P (MAP) 117/71 97/55 (69) Pulse Ox 98 O2 Delivery Room Air Intake and Output 07/30/18 07/30/18 07/31/18 15:00 23:00 07:00 Intake Total 120 ml 120 ml Output Total 0 ml Balance 120 ml 120 ml MAHSA REYNOSO MD Jul 31, 2018 08:11
[2018-07-31] MEDS: POLYETHYLENE GLYCOL 3350 17 GM PACKET. PO SCH ×2 (09:00→20:52)
--- NOTE | 2018-07-31 09:02 | RAD ---
Right upper extremity arterial ultrasound, 07/31/2018: HISTORY: Right arm discoloration and swelling, AV fistula Duplex evaluation of the right upper extremity was performed including grayscale, color-flow and spectral Doppler analysis. An AV fistula is present. Just below the antecubital fossa there is an anastomosis between what appears to be the radial artery and the cephalic vein. The anastomosis is patent demonstrating a peak systolic velocity of 317 cm/s. The fistula is patent throughout the right upper arm and attaches superiorly to the subclavian vein. This anastomosis is widely patent. There is a segment of the fistula in the mid upper arm which is dilated. It contains a small bit of mural thrombus measuring 3 x 8 mm. A small elongated hypoechoic process is seen adjacent to the fistula along the lateral aspect of the antecubital fossa, likely representing a small hematoma. It measures 2.9 x 2.6 x 0.9 cm. No other abnormal fluid collection or mass is seen. IMPRESSION: 1. Patent AV fistula in the right upper arm containing a small bit of thrombus. 2. Small hypoechoic process adjacent to the fistula at the lateral antecubital fossa level, most likely representing a small hematoma. Electronically signed by: Ty Hussein MD (07/31/2018 8:59 AM) [facility]
[2018-07-31] MEDS: guaiFENesin DM 200MG/20MG 10 ML SYRUP PO SCH ×4 (09:46→20:52)
[2018-07-31] MEDS: CALCITRIOL 0.25 MCG CAPSULE. PO SCH (09:47)
[2018-07-31] MEDS: LACTOBACILLUS RHAMNOSUS GG 1 CAPSULE. PO SCH ×2 (09:47→20:52)
[2018-07-31] MEDS: PANTOPRAZOLE 40 MG TABLET.DR. PO SCH (09:47)
[2018-07-31] MEDS: ASPIRIN 325 MG TABLET PO SCH (09:47)
[2018-07-31] MEDS: SENNOSIDES 8.6 MG TABLET PO SCH (09:47)
[2018-07-31] MEDS: DOCUSATE SODIUM 100 MG CAPSULE. PO SCH ×2 (09:48→20:52)
[2018-07-31] MEDS: SEVELAMER CARBONATE 2.4 GM PACKET. PO SCH ×3 (09:48→18:05)
[2018-07-31] MEDS: CINACALCET HCL 30 MG TABLET PO SCH (09:48)
[2018-07-31] MEDS: LATANOPROST 0.005% OPHTH SOLUTION 2.5ML BOTTLE. OU SCH (09:48)
[2018-07-31] MEDS: DICLOFENAC SODIUM 1% TOPICAL GEL 100GM TUBE. TP SCH ×2 (09:48→15:34)
[2018-07-31] MEDS: CHOLECALCIFEROL (VITAMIN D3) 1,000 UNIT TABLET PO SCH (09:49)
[2018-07-31] MEDS ORDERED: IV NORMAL SALINE 1000ML BAG 1,000 ML IV PRN ×2 (09:54)
[2018-07-31] MEDS ORDERED: DIALYSIS PATIENT. MC PRN ×2 (10:00)
[2018-07-31] MEDS ORDERED: ALBUMIN HUMAN 25% 200 ML IV PRN (10:00)
--- NOTE | 2018-07-31 10:13 | PDOC ---
Subjective: Subjective: No complaints. Objective: Objective: Reviewed w/ RN - UE bleeding from dialysis points, vascular asked to see, holding Heparin and Warfarin. Vital Signs: Vital Signs Date Time Temp Pulse Resp B/P (MAP) Pulse Ox O2 Delivery O2 Flow Rate FiO2 07/31/18 07:00 97.5 74 18 97/55 (69) 98 Room Air 97.5 Labs: Laboratory Tests Test 07/30/18 11:35 07/30/18 17:38 07/30/18 20:36 07/31/18 07:16 Glucose (Fingerstick) 174 mg/dL (70-99) 211 mg/dL (70-99) 165 mg/dL (70-99) 70 mg/dL (70-99) Imaging: UE US IMPRESSION: 1. Patent AV fistula in the right upper arm containing a small bit of thrombus. 2. Small hypoechoic process adjacent to the fistula at the lateral antecubital fossa level, most likely representing a small hematoma. PE: GEN: NAD, eating breakfast LUNGS: room air HEART: RRR ABD: S/ND/NT NEURO/PSYCH: A & O 3 - a bit more talkative today A/P: Chronic anemia - UE bleeding yesterday, no GI bleeding -- Stable GI-haley. REDD NAVARRO Jul 31, 2018 10:13
--- NOTE | 2018-07-31 10:33 | NUR ---
Patient left the floor for dialysis at approx 1000. Daughter here this morning however left to go back to [place] for the day and will return this weekend.
--- NOTE | 2018-07-31 11:50 | PDOC ---
SUBJECTIVE ROS Seen on HD , No new concerns OBJECTIVE Vital Signs Vital Signs Date Time Temp Pulse Resp B/P (MAP) Pulse Ox O2 Delivery O2 Flow Rate FiO2 07/31/18 07:00 97.5 74 18 97/55 (69) 98 Room Air 97.5 I & 0 Intake and Output 07/31/18 07:00 Intake Total 240 ml Output Total 0 ml Balance 240 ml Intake Oral 240 ml Output Urine Total 0 ml # Bowel Movements 2 PHYSICAL EXAM Physical Exam General: Alert, No acute distress Lungs: Crackles (less crackles) Cardiovascular: S1, S2 Abdomen: Soft Neuro Exam: Alert Extremities: Other (EDEMA L) Skin: Warm DIAGNOSIS/ASSESSMENT Assessment & Plan ESRD- TTS Seen on HD, 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 Patent AV fistula in the right upper arm containing a small bit of thrombus. 2. Small hypoechoic process adjacent to the fistula at the lateral antecubital fossa level, most likely representing a small hematoma. COMMENT/RELEVANT DATA Meds Current Medications Medications (Trade) Dose Ordered Sig/Homa Start Time Stop Time Status Last Admin Dose Admin Acetaminophen (Tylenol) 500 mg PRN Q6HRS PRN 07/19/18 14:45 Albumin Human 200 ml @ 200 mls/hr 1X PRN PRN 07/31/18 10:00 07/31/18 15:59 Albuterol/ Ipratropium (Duoneb) 3 ml RTQID 07/19/18 16:00 07/30/18 20:43 3 ML Amino Acids/ Glycerin/ Electrolytes 1,000 ml @ 50 mls/hr Q20H 07/24/18 17:00 07/29/18 08:56 DC 07/28/18 21:12 50 MLS/HR Amoxicillin/ Clavulanate Potassium (Augmentin 500/ 125mg) 1 tab BID 07/24/18 09:00 07/25/18 09:21 DC 07/24/18 11:16 1 TAB Aspirin (Tracee Aspirin) 325 mg DAILY 07/19/18 15:00 07/31/18 09:47 325 MG Barium Sulfate (Varibar Thin Liquid Apple) 148 gm 1X ONCE 07/26/18 13:30 07/26/18 13:31 DC 07/26/18 13:30 148 GM Bisacodyl (Dulcolax Supp) 10 mg PRN DAILY PRN 07/19/18 19:45 Calcitriol (Rocaltrol) 0.25 mcg DAILY 07/20/18 09:00 07/31/18 09:47 0.25 MCG Carvedilol (Coreg) 3.125 mg BIDWMEALS 07/19/18 17:00 07/19/18 19:42 DC Cinacalcet (Sensipar) 30 mg DAILY 07/19/18 15:00 07/31/18 09:48 30 MG Dextrose (Dextrose 50%-Water Syringe) 12.5 gm PRN Q15MIN PRN 07/19/18 14:45 Diclofenac Sodium (Voltaren) 1 grisel BID 07/19/18 21:00 07/31/18 09:48 1 GRISEL Digoxin (Lanoxin) 125 mcg QTUTHSA 07/24/18 16:00 07/29/18 18:26 125 MCG Diphenhydramine HCl (Benadryl) 25 mg 1X PRN PRN 07/25/18 08:30 07/26/18 08:29 DC Docusate Sodium (Colace) 100 mg BID 07/19/18 21:00 07/31/18 09:48 100 MG Dopamine HCl/ Dextrose 250 ml @ 6.124 mls/ hr CONT PRN 07/20/18 12:00 07/26/18 14:13 DC 07/24/18 20:37 30.618 MLS/HR Fentanyl (Duragesic 12mcg/ Hr Patch) 1 patch Q3DAYS 07/19/18 15:00 07/19/18 19:42 DC Furosemide (Lasix) 40 mg 1X ONCE 07/19/18 14:45 07/19/18 14:52 DC 07/19/18 14:52 40 MG Guaifenesin (Robitussin Dm) 10 ml QID 07/19/18 17:00 07/31/18 09:46 10 ML Heparin Sodium (Porcine) (Heparin Sodium) 1,300 unit PRN Q6HRS PRN 07/24/18 19:30 07/25/18 23:25 1,300 UNIT Heparin Sodium/ Dextrose 500 ml @ 0 mls/hr CONT PRN 07/24/18 19:45 07/30/18 04:32 18.8 MLS/HR Hydromorphone HCl (Dilaudid) 2 mg PRN Q8HRS PRN 07/19/18 15:00 07/20/18 09:31 DC Info (Anti-Coagulation Monitoring By Pharmacy) 1 each PRN DAILY PRN 07/25/18 11:30 07/30/18 15:03 1 EACH Info (PHARMACY MONITORING -- do not chart) 1 each PRN DAILY PRN 07/31/18 10:00 Insulin Glargine (Lantus) 14 units QHS 07/28/18 21:00 07/30/18 22:01 14 UNITS Insulin Human Lispro (HumaLOG) 4 units TIDWMEALS 07/27/18 12:00 07/30/18 18:21 4 UNITS Lactobacillus Rhamnosus (Culturelle) 1 cap BID 07/20/18 21:00 07/31/18 09:47 1 CAP Latanoprost (Xalatan) 1 drop QHS 07/19/18 21:00 07/31/18 09:48 1 DROP Magnesium Hydroxide (Milk Of Magnesia) 2,400 mg PRN DAILY PRN 07/19/18 19:45 Magnesium Sulfate 50 ml @ 25 mls/hr PRN DAILY PRN 07/20/18 09:45 Methylprednisolone Sodium Succinate (SOLU-Medrol 40MG VIAL) 40 mg Q8HRS 07/20/18 14:00 07/31/18 06:16 40 MG Midodrine (Proamatine) 2.5 mg [id number] 07/22/18 13:00 07/31/18 06:20 2.5 MG Nitroglycerin (Nitrostat) 0.4 mg PRN Q5MIN PRN 07/19/18 14:30 07/20/18 14:29 DC Non-Formulary Medication (Latanoprost/Pf (Latanoprost 0.005% Eye Drop)) 7.5 ml QHS 07/19/18 21:00 UNV Ondansetron HCl (Zofran Odt) 4 mg PRN Q6HRS PRN 07/19/18 14:45 Ondansetron HCl (Zofran) 4 mg PRN Q8HRS PRN 07/19/18 14:30 07/20/18 14:29 DC Pantoprazole Sodium (PROTONIX VIAL for IV PUSH) 40 mg DAILYAC 07/27/18 11:30 07/28/18 10:43 DC 07/28/18 07:54 40 MG Pantoprazole Sodium (Protonix) 40 mg DAILYAC 07/29/18 07:30 07/31/18 09:47 40 MG Piperacillin Sod/ Tazobactam Sod (Zosyn Per Pharmacy) 1 each PRN DAILY PRN 07/19/18 14:45 07/24/18 11:11 DC Piperacillin Sod/ Tazobactam Sod 2.25 gm/Sodium Chloride 50 ml @ 100 mls/hr Q8HRS 07/25/18 09:30 07/28/18 09:31 DC 07/28/18 05:07 100 MLS/HR Polyethylene Glycol (miraLAX PACKET) 17 gm BID 07/19/18 21:00 07/30/18 21:59 17 GM Sennosides (Senna) 8.6 mg DAILY 07/20/18 09:00 07/31/18 09:47 8.6 MG Sevelamer Carbonate (Renvela) 2.4 gm TIDWMEALS 07/19/18 17:00 07/31/18 09:48 2.4 GM Sodium Monofluorophosphate (Fleet Adult) 133 ml PRN DAILY PRN 07/19/18 19:45 07/22/18 12:17 DC Sodium Chloride 1,000 ml @ 400 mls/hr Q2H30M PRN 07/31/18 09:54 07/31/18 21:53 Temazepam (Restoril) 7.5 mg PRN QHS PRN 07/19/18 14:45 07/22/18 20:42 7.5 MG Vitamin B Complex/ Vitamin C (Bela-Roland) 1 tab DAILYBFRSUP 07/19/18 17:00 07/30/18 17:59 1 TAB Vitamin D (Vitamin D3) 1,000 unit DAILY 07/20/18 09:00 07/31/18 09:49 1,000 UNIT Warfarin Sodium (Coumadin Per Pharmacy) 1 each PRN DAILY PRN 07/29/18 09:00 07/30/18 15:03 1 EACH Warfarin Sodium (Coumadin) 2 mg 1X WARF ONCE 07/30/18 16:00 07/30/18 16:01 DC Lab Laboratory Tests Test 07/30/18 12:29 07/30/18 17:38 07/30/18 20:36 07/31/18 05:50 Heparin Anti-Xa Act, Unfractionated 0.56 IU/mL (0.30-0.70) Glucose (Fingerstick) 211 mg/dL (70-99) 165 mg/dL (70-99) White Blood Count 17.3 x10^3/uL (4.0-11.0) Red Blood Count 2.64 x10^6/uL (3.50-5.40) Hemoglobin 9.3 g/dL (12.0-15.5) Hematocrit 28.0 % (36.0-47.0) Mean Corpuscular Volume 106 fL (79-100) Mean Corpuscular Hemoglobin 35 pg (25-35) Mean Corpuscular Hemoglobin Concent 33 g/dL (31-37) Red Cell Distribution Width 17.0 % (11.5-14.5) Platelet Count 144 x10^3/uL (140-400) Neutrophils (%) (Auto) 91 % (31-73) Lymphocytes (%) (Auto) 4 % (24-48) Monocytes (%) (Auto) 6 % (0-9) Eosinophils (%) (Auto) 0 % (0-3) Basophils (%) (Auto) 0 % (0-3) Neutrophils # (Auto) 15.7 x10^3uL (1.8-7.7) Lymphocytes # (Auto) 0.6 x10^3/uL (1.0-4.8) Monocytes # (Auto) 1.0 x10^3/uL (0.0-1.1) Eosinophils # (Auto) 0.0 x10^3/uL (0.0-0.7) Basophils # (Auto) 0.0 x10^3/uL (0.0-0.2) Prothrombin Time 16.1 SEC (11.7-14.0) Prothromb Time International Ratio 1.3 (0.8-1.1) Sodium Level 136 mmol/L (136-145) Potassium Level 5.1 mmol/L (3.5-5.1) Chloride Level 97 mmol/L (98-107) Carbon Dioxide Level 27 mmol/L (21-32) Anion Gap 12 (6-14) Blood Urea Nitrogen 46 mg/dL (7-20) Creatinine 3.6 mg/dL (0.6-1.0) Estimated GFR (Cockcroft-Gault) 12.0 Glucose Level 72 mg/dL (70-99) Calcium Level 7.6 mg/dL (8.5-10.1) Phosphorus Level 3.1 mg/dL (2.6-4.7) Albumin 2.7 g/dL (3.4-5.0) Test 07/31/18 07:16 Glucose (Fingerstick) 70 mg/dL (70-99) Results All relevant outside records, renal labs, imaging studies, telemetry/EKG's were reviewed. ASHU GARDINER MD Jul 31, 2018 11:50
--- NOTE | 2018-07-31 13:30 | PDOC2 ---
CONSULT Date of Consult Date of Consult DATE: 07/31/18 TIME: 13:03 Reason for Consult Reason for Consult: Bleeding arterio-venous fistula right arm. Left arm brachial vein thrombus on anticoagulation of heparin gtt and Warfarin. Referring Physician Referring Physician: Dr. Paniagua Identification/Chief Complaint Chief Complaint Shortness of air, hypotension now presenting with bleeding arterio-venous fistula right upper arm. Source Source: Chart review, Patient History of Present Illness Reason for Visit: 87 year old female admitted with shortness of air, cough, weakness and hypotension. Patient has end stage renal disease on dialysis via a right upper arm arteriovenous fistula. Patient has had the arteriovenous fistula for more than 8 years. She has had issues with bleeding from the fistula since initiation of anticoagulation for a left arm DVT. The patient is cooperative but provides minimal medical history. She denies any arm pain. Currently she is not actively bleeding from her fistula. Heparin and Warfarin have been stopped. There is no aneurysmal dilatation of her arteriovenous fistula and is patent by ultrasound. Ultrasound imaging obtained on July 23 demonstrated occlusive thrombus surround a PICC line in her left brachial vein. The PICC line has been removed. Past Medical History Cardiovascular: CAD, CHF, HTN, [place], Valve insufficiency Pulmonary: Bronchitis, COPD GI: No pertinent hx Heme/Onc: Anemia NOS Rheumatologic: No pertinent hx Infectious disease: No pertinent hx Renal/: Chronic renal insuff, UTI Endocrine: Diabetes, Hyperparathyroidism Past Surgical History Past Surgical History: CABG, Other (right upper arm arteriovenous fistula) Family History Family History: Heart Disease, High Cholestrol, Hypertension Social History No ALCOHOL: none Drugs: None Lives: [facility] Current Problem List Problem List Problems Medical Problems: (1) Congestive heart failure Status: Acute Current Medications Current Medications Current Medications Albuterol/ Ipratropium (Duoneb) 3 ml 1X ONCE NEB Last administered on at 12:57; Start 07/19/18 at 12:45; Stop 07/19/18 at 12:46; Status DC Ondansetron HCl (Zofran) 4 mg PRN Q8HRS PRN IV NAUSEA/VOMITING; Start 07/19/18 at 14:30; Stop 07/20/18 at 14:29; Status DC Acetaminophen (Tylenol) 650 mg PRN Q4HRS PRN PO FEVER; Start 07/19/18 at 14:30 ; Stop 07/20/18 at 08:37; Status DC Nitroglycerin (Nitrostat) 0.4 mg PRN Q5MIN PRN SL CHEST PAIN; Start 07/19/18 at 14:30; Stop 07/20/18 at 14:29; Status DC Albuterol/ Ipratropium (Duoneb) 3 ml RTQID NEB ; Start 07/19/18 at 16:00; Stop 07/20/18 at 15:59; Status Cancel Aspirin (Tracee Aspirin) 325 mg DAILY PO Last administered on 07/31/18 09:47; Start 07/19/18 at 15:00 Carvedilol (Coreg) 3.125 mg BIDWMEALS PO ; Start 07/19/18 at 17:00; Stop at 19:42; Status DC Cinacalcet (Sensipar) 30 mg DAILY PO Last administered on 07/31/18 09:48; Start 07/19/18 at 15:00 Diclofenac Sodium (Voltaren) 1 grisel BID TP Last administered on 07/31/18 09:48; Start 07/19/18 at 21:00 Fentanyl (Duragesic 12mcg/ Hr Patch) 1 patch Q3DAYS TD ; Start 07/19/18 at 15:00 ; Stop 07/19/18 at 19:42; Status DC Vitamin B Complex/ Vitamin C (Bela-Roland) 1 tab DAILYBFRSUP PO Last administered on 07/30/18 17:59; Start 07/19/18 at 17:00 Ondansetron HCl (Zofran Odt) 4 mg PRN Q6HRS PRN PO NAUSEA/VOMITING; Start 07/19 at 14:45 Sevelamer Carbonate (Renvela) 2.4 gm TIDWMEALS PO Last administered on 09:48; Start 07/19/18 at 17:00 Acetaminophen (Tylenol) 500 mg PRN Q6HRS PRN PO MILD PAIN / TEMP; Start at 14:45 Latanoprost (Xalatan) 1 drop QHS OU Last administered on 07/31/18 09:48; Start 07/19/18 at 21:00 Calcitriol (Rocaltrol) 0.25 mcg DAILY PO Last administered on 07/31/18 09:47; Start 07/20/18 at 09:00 Vitamin D (Vitamin D3) 1,000 unit DAILY PO Last administered on 07/31/18 09:49 ; Start 07/20/18 at 09:00 Hydromorphone HCl (Dilaudid) 2 mg PRN Q8HRS PRN PO MODERATE PAIN, SEVERE PAIN; Start 07/19/18 at 15:00; Stop 07/20/18 at 09:31; Status DC Insulin Glargine (Lantus) 5 units QHS SQ Last administered on 07/26/18at 21:46; Start 07/19/18 at 21:00; Stop 07/27/18 at 10:00; Status DC Non-Formulary Medication (Latanoprost/Pf (Latanoprost 0.005% Eye Drop)) 7.5 ml QHS OP ; Start 07/19/18 at 21:00; Status UNV Pantoprazole Sodium (Protonix) 40 mg DAILYAC PO Last administered on 07/24/18at 11:17; Start 07/20/18 at 07:30; Stop 07/27/18 at 09:10; Status DC Piperacillin Sod/ Tazobactam Sod (Zosyn Per Pharmacy) 1 each PRN DAILY PRN MC SEE COMMENTS; Start 07/19/18 at 14:45; Stop 07/24/18 at 11:11; Status DC Albuterol/ Ipratropium (Duoneb) 3 ml RTQID NEB Last administered on 07/30/18at 20 :43; Start 07/19/18 at 16:00 Guaifenesin (Robitussin Dm) 10 ml QID PO Last administered on 07/31/18 09:46; Start 07/19/18 at 17:00 Temazepam (Restoril) 7.5 mg PRN QHS PRN PO INSOMNIA Last administered on 20:42; Start 07/19/18 at 14:45 Insulin Human Lispro (HumaLOG) 0-7 UNITS TIDWMEALS SQ Last administered on 18:20; Start 07/19/18 at 17:00 Dextrose (Dextrose 50%-Water Syringe) 12.5 gm PRN Q15MIN PRN IV SEE COMMENTS; Start 07/19/18 at 14:45 Piperacillin Sod/ Tazobactam Sod 2.25 gm/Sodium Chloride 50 ml @ 100 mls/hr Q8H IV Last administered on 07/24/18 00:10; Start 07/19/18 at 16:00; Stop at 08:08; Status DC Furosemide (Lasix) 40 mg 1X ONCE IVP Last administered on 07/19/18 14:52; Start 07/19/18 at 14:45; Stop 07/19/18 at 14:52; Status DC Docusate Sodium (Colace) 100 mg BID PO Last administered on 07/31/18 09:48; Start 07/19/18 at 21:00 Magnesium Hydroxide (Milk Of Magnesia) 2,400 mg PRN DAILY PRN PO CONSTIPATION; Start 07/19/18 at 19:45 Sodium Monofluorophosphate (Fleet Adult) 133 ml PRN DAILY PRN RC CONSTIPATION; Start 07/19/18 at 19:45; Stop 07/22/18 at 12:17; Status DC Bisacodyl (Dulcolax Supp) 10 mg PRN DAILY PRN MT CONSTIPATION 1ST CHOICE; Start 07/19/18 at 19:45 Polyethylene Glycol (miraLAX PACKET) 17 gm BID PO Last administered on 21:59; Start 07/19/18 at 21:00 Sennosides (Senna) 8.6 mg DAILY PO Last administered on 07/31/18 09:47; Start 07/20/18 at 09:00 Lactobacillus Rhamnosus (Culturelle) 1 cap BID PO Last administered on 09:47; Start 07/20/18 at 21:00 Methylprednisolone Sodium Succinate (SOLU-Medrol 40MG VIAL) 40 mg Q8HRS IV Last administered on 07/31/18 06:16; Start 07/20/18 at 14:00 Albumin Human 250 ml @ 62.5 mls/hr PRN Q6HRS PRN IV for MAP < 65 Last administered on 07/21/18 20:45; Start 07/20/18 at 09:45 Magnesium Sulfate 50 ml @ 25 mls/hr PRN DAILY PRN IV for Mag < 1.7 on am labs; Start 07/20/18 at 09:45 Dopamine HCl/ Dextrose 250 ml @ 6.124 mls/ hr CONT PRN IV SEE I/O RECORD Last administered on 07/24/18at 20:37; Start 07/20/18 at 12:00; Stop 07/26/18 at 14:13 ; Status DC Sodium Chloride 1,000 ml @ 1,000 mls/hr Q1H PRN IV hypotension; Start 07/21/18 at 13:00; Stop 07/21/18 at 18:59; Status DC Sodium Chloride 1,000 ml @ 400 mls/hr Q2H30M PRN IV PATENCY; Start 07/21/18 at 13:00; Stop 07/22/18 at 00:59; Status DC Info (PHARMACY MONITORING -- do not chart) 1 each PRN DAILY PRN MC SEE COMMENTS ; Start 07/21/18 at 13:30; Status UNV Info (PHARMACY MONITORING -- do not chart) 1 each PRN DAILY PRN MC SEE COMMENTS ; Start 07/21/18 at 13:30; Stop 07/24/18 at 07:10; Status DC Albumin Human 100 ml @ 100 mls/hr 1X ONCE IV Last administered on 07/21/18at 14:00; Start 07/21/18 at 13:30; Stop 07/21/18 at 14:29; Status DC Sodium Chloride 500 ml @ 500 mls/hr 1X ONCE IV Last administered on at 11:14; Start 07/22/18 at 11:15; Stop 07/22/18 at 12:14; Status DC Digoxin (Lanoxin) 125 mcg QMWF@1600 PO ; Start 07/23/18 at 16:00; Stop 07/23/18 at 16:00; Status DC Digoxin (Lanoxin) 125 mcg 1X ONCE PO Last administered on 07/22/18at 12:26; Start 07/22/18 at 12:00; Stop 07/22/18 at 12:01; Status DC Midodrine (Proamatine) 2.5 mg [id number] PO Last administered on 07/31/18at 06:20; Start 07/22/18 at 13:00 Digoxin (Lanoxin) 125 mcg QTUTHSA PO Last administered on 07/29/18at 18:26; Start 07/24/18 at 16:00 Sodium Chloride 500 ml @ 500 mls/hr 1X ONCE IV Last administered on at 15:42; Start 07/23/18 at 15:00; Stop 07/23/18 at 15:59; Status DC Sodium Chloride 1,000 ml @ 1,000 mls/hr Q1H PRN IV hypotension; Start 07/24/18 at 06:59; Stop 07/24/18 at 12:58; Status DC Albumin Human 200 ml @ 200 mls/hr 1X PRN PRN IV Hypotension Last administered on 07/24/18at 08:09; Start 07/24/18 at 07:00; Stop 07/24/18 at 12:59; Status DC Sodium Chloride 1,000 ml @ 400 mls/hr Q2H30M PRN IV PATENCY; Start 07/24/18 at 06:59; Stop 07/24/18 at 18:58; Status DC Info (PHARMACY MONITORING -- do not chart) 1 each PRN DAILY PRN MC SEE COMMENTS ; Start 07/24/18 at 07:00; Stop 07/25/18 at 11:17; Status DC Info (PHARMACY MONITORING -- do not chart) 1 each PRN DAILY PRN MC SEE COMMENTS ; Start 07/24/18 at 07:00; Status UNV Amoxicillin/ Clavulanate Potassium (Augmentin 500/ 125mg) 1 tab BID PO Last administered on 07/24/18at 11:16; Start 07/24/18 at 09:00; Stop 07/25/18 at 09:21 ; Status DC Amino Acids/ Glycerin/ Electrolytes 1,000 ml @ 50 mls/hr Q20H IV Last administered on 07/28/18at 21:12; Start 07/24/18 at 17:00; Stop 07/29/18 at 08:56; Status DC Heparin Sodium/ Dextrose 500 ml @ 0 mls/hr CONT PRN IV SEE I/O RECORD; Start at 19:30; Status Cancel Heparin Sodium (Porcine) (Heparin Sodium) 6,850 unit 1X ONCE IV Last administered on 07/24/18at 19:38; Start 07/24/18 at 19:30; Stop 07/24/18 at 19:33 ; Status DC Heparin Sodium/ Dextrose 500 ml @ 0 mls/hr CONT PRN IV SEE I/O RECORD; Start at 19:30; Status UNV Heparin Sodium (Porcine) (Heparin Sodium) 2,550 unit PRN Q6HRS PRN IV FOR UFH LEVEL LESS THAN 0.2; Start 07/24/18 at 19:30 Heparin Sodium (Porcine) (Heparin Sodium) 1,300 unit PRN Q6HRS PRN IV FOR UFH LEVEL 0.2 - 0.29 Last administered on 07/25/18at 23:25; Start 07/24/18 at 19:30 Heparin Sodium/ Dextrose 500 ml @ 0 mls/hr CONT PRN IV SEE I/O RECORD Last administered on 07/30/18at 04:32; Start 07/24/18 at 19:45 Sodium Chloride 1,000 ml @ 1,000 mls/hr Q1H PRN IV hypotension; Start 07/25/18 at 08:22; Stop 07/25/18 at 14:21; Status DC Albumin Human 200 ml @ 200 mls/hr 1X ONCE IV Last administered on 07/25/18at 08:49; Start 07/25/18 at 08:30; Stop 07/25/18 at 09:29; Status DC Diphenhydramine HCl (Benadryl) 25 mg 1X PRN PRN IV ITCHING; Start 07/25/18 at 08:30; Stop 07/26/18 at 08:29; Status DC Diphenhydramine HCl (Benadryl) 25 mg 1X PRN PRN IV ITCHING; Start 07/25/18 at 08:30; Stop 07/26/18 at 08:29; Status DC Sodium Chloride 1,000 ml @ 400 mls/hr Q2H30M PRN IV PATENCY; Start 07/25/18 at 08:22; Stop 07/25/18 at 20:21; Status DC Info (PHARMACY MONITORING -- do not chart) 1 each PRN DAILY PRN MC SEE COMMENTS ; Start 07/25/18 at 08:30; Stop 07/26/18 at 14:10; Status DC Piperacillin Sod/ Tazobactam Sod 2.25 gm/Sodium Chloride 50 ml @ 100 mls/hr Q8HRS IV Last administered on 07/28/18at 05:07; Start 07/25/18 at 09:30; Stop 07/28/18 at 09:31; Status DC Info (Anti-Coagulation Monitoring By Pharmacy) 1 each PRN DAILY PRN MC SEE COMMENTS Last administered on 07/30/18at 15:03; Start 07/25/18 at 11:30 Info (PHARMACY MONITORING -- do not chart) 1 each PRN DAILY PRN MC SEE COMMENTS ; Start 07/26/18 at 08:15; Status Cancel Info (PHARMACY MONITORING -- do not chart) 1 each PRN DAILY PRN MC SEE COMMENTS ; Start 07/26/18 at 08:15; Stop 07/26/18 at 08:17; Status DC Barium Sulfate (Varibar Thin Liquid Apple) 148 gm 1X ONCE PO Last administered on 07/26/18at 13:30; Start 07/26/18 at 13:30; Stop 07/26/18 at 13:31 ; Status DC Pantoprazole Sodium (PROTONIX VIAL for IV PUSH) 40 mg DAILYAC IVP Last administered on 07/28/18at 07:54; Start 07/27/18 at 11:30; Stop 07/28/18 at 10:43; Status DC Insulin Glargine (Lantus) 9 units QHS SQ Last administered on 07/27/18at 20:52; Start 07/27/18 at 21:00; Stop 07/28/18 at 14:03; Status DC Insulin Human Lispro (HumaLOG) 4 units TIDWMEALS SQ Last administered on 18:21; Start 07/27/18 at 12:00 Pantoprazole Sodium (Protonix) 40 mg DAILYAC PO Last administered on 07/31/18 09:47; Start 07/29/18 at 07:30 Insulin Glargine (Lantus) 14 units QHS SQ Last administered on 07/30/18at 22:01; Start 07/28/18 at 21:00 Warfarin Sodium (Coumadin) 2.5 mg DAILY16 PO ; Start 07/29/18 at 16:00; Stop 07/29 at 16:00; Status DC Warfarin Sodium (Coumadin Per Pharmacy) 1 each PRN DAILY PRN MC SEE COMMENTS Last administered on 07/30/18 15:03; Start 07/29/18 at 09:00 Warfarin Sodium (Coumadin) 2 mg 1X WARF ONCE PO Last administered on 07/29/18 18:27; Start 07/29/18 at 16:00; Stop 07/29/18 at 16:01; Status DC Sodium Chloride 1,000 ml @ 1,000 mls/hr Q1H PRN IV hypotension; Start 07/29/18 at 13:50; Stop 07/29/18 at 19:49; Status DC Info (PHARMACY MONITORING -- do not chart) 1 each PRN DAILY PRN MC SEE COMMENTS ; Start 07/29/18 at 14:00; Status Cancel Info (PHARMACY MONITORING -- do not chart) 1 each PRN DAILY PRN MC SEE COMMENTS ; Start 07/29/18 at 14:00; Status UNV Warfarin Sodium (Coumadin) 2 mg 1X WARF ONCE PO ; Start 07/30/18 at 16:00; Stop 07/30/18 at 16:01; Status DC Sodium Chloride 1,000 ml @ 1,000 mls/hr Q1H PRN IV hypotension; Start 07/31/18 at 09:54; Stop 07/31/18 at 15:53 Albumin Human 200 ml @ 200 mls/hr 1X PRN PRN IV Hypotension; Start 07/31/18 at 10:00; Stop 07/31/18 at 15:59 Sodium Chloride 1,000 ml @ 400 mls/hr Q2H30M PRN IV PATENCY; Start 07/31/18 at 09:54; Stop 07/31/18 at 21:53 Info (PHARMACY MONITORING -- do not chart) 1 each PRN DAILY PRN MC SEE COMMENTS ; Start 07/31/18 at 10:00; Status UNV Info (PHARMACY MONITORING -- do not chart) 1 each PRN DAILY PRN MC SEE COMMENTS ; Start 07/31/18 at 10:00 Active Scripts Active Levemir (Insulin Detemir) 100 Unit/1 Ml Vial 5 Unit SQ QHS 30 Days Hold for < 140mg/dL Aspirin 325 Mg Tablet 1 Tab PO DAILY Reported Amlodipine Besylate 10 Mg Tablet 10 Mg PO DAILY Tylenol (Acetaminophen) 325 Mg Tablet 2 Tab PO PRN Q6HRS PRN Senna (Sennosides) 8.6 Mg Tablet 8.6 Mg PO DAILY Novolog Flexpen (Insulin Aspart) 100 Unit/1 Ml Insuln.pen 1 Unit SQ TIDAC Miralax (Polyethylene Glycol 3350) 17 Gm Powd.pack 1 Packet PO BID Milk Of Magnesia (Magnesium Hydroxide) 400 Mg/5 Ml Oral.susp 30 Ml PO PRN DAILY Duoneb 0.5-3(2.5) Mg/3 Ml (Albuterol/Ipratropium) 3 Ml Ampul.neb 3 Ml NEB TID Fleet Enema (Na Phos,M-B/Na Phos,Di-Ba) 133 Ml Enema 1 Each RC PRN DAILY PRN Dulcolax (Bisacodyl) 10 Mg Supp.rect 10 Mg RC PRN DAILY PRN Docusate Sodium 100 Mg Capsule 1 Cap PO BID Carvedilol (Carvedilol) 12.5 Mg Tablet 12.5 Mg PO BIDWMEALS Protonix (Pantoprazole Sodium) 20 Mg Tablet.dr 40 Mg PO DAILY Voltaren (Diclofenac Sodium) 100 Gm Gel..gram. 1 Gm TP BID Zofran Odt (Ondansetron) 4 Mg Tab.rapdis 4 Mg PO Q6HRS PRN Sensipar (Cinacalcet Hcl) 30 Mg Tablet 1 Tab PO DAILY Renvela (Sevelamer Carbonate) 2.4 Gm Powd.pack 2.4 Gm PO TIDWMEALS Lumigan (Bimatoprost) 2.5 Ml Drops 1 Drop EACHEYE QHS Calcitriol 0.25 Mcg Capsule 1 Cap PO DAILY Nephro-Roland Tablet (Folic Acid/Vitamin B Comp W-C) 0.8 Mg Tablet 1 Tab PO DAILYBFRSUP Vitamin D (Cholecalciferol (Vitamin D3)) 2,000 Unit Capsule 1 Cap PO DAILY Allergies Allergies: Coded Allergies: morphine (Verified Adverse Reaction, Intermediate, HALLUCINATIONS, 08/13/16 ) ROS Review of System Difficult to obtain due to patient's mental status Constitutional: No current fever or chills. Fatigue is present. Respiratory: Cough. Cardiovascular: Peripheral edema. Gastrointestinal: No abdominal pain, nausea, constipation or diarrhea. Integumentary/breast: Sever ecchymosis bilateral upper extremities. Right greater than left. Musculoskeletal: As per HPI Neurological: No gross deficits All other reviews systems negative except history of present illness. Physical Exam General: Alert, No acute distress Lungs: Normal air movement Heart: Regular rate Abdomen: Other (obese) Extremities: Other (RUE: Palpable thrill in fistula, no obvious aneurysmal dilatiation, mild swelling in forearm and hand, severe ecchymosis, no active bleeding. Motor function and sensation intact. LLE: Mild swelling in forearm and hand, palpable brahial pulse. Motor function and sensation intact.) Skin: Other (as above, no open lesions.) Vitals VITALS Vital Signs Date Time Temp Pulse Resp B/P (MAP) Pulse Ox O2 Delivery O2 Flow Rate FiO2 07/31/18 07:00 97.5 74 18 97/55 (69) 98 Room Air 97.5 Labs Labs Laboratory Tests Test 07/29/18 17:56 07/29/18 20:38 07/30/18 00:05 07/30/18 06:15 Glucose (Fingerstick) 121 mg/dL (70-99) 190 mg/dL (70-99) Prothrombin Time 18.3 SEC (11.7-14.0) Prothromb Time International Ratio 1.6 (0.8-1.1) Heparin Anti-Xa Act, Unfractionated 0.40 IU/mL (0.30-0.70) 0.37 IU/mL (0.30-0.70) Test 07/30/18 07:42 07/30/18 11:35 07/30/18 12:29 07/30/18 17:38 Glucose (Fingerstick) 118 mg/dL (70-99) 174 mg/dL (70-99) 211 mg/dL (70-99) Heparin Anti-Xa Act, Unfractionated 0.56 IU/mL (0.30-0.70) Test 07/30/18 20:36 07/31/18 05:50 07/31/18 07:16 Glucose (Fingerstick) 165 mg/dL (70-99) 70 mg/dL (70-99) White Blood Count 17.3 x10^3/uL (4.0-11.0) Red Blood Count 2.64 x10^6/uL (3.50-5.40) Hemoglobin 9.3 g/dL (12.0-15.5) Hematocrit 28.0 % (36.0-47.0) Mean Corpuscular Volume 106 fL (79-100) Mean Corpuscular Hemoglobin 35 pg (25-35) Mean Corpuscular Hemoglobin Concent 33 g/dL (31-37) Red Cell Distribution Width 17.0 % (11.5-14.5) Platelet Count 144 x10^3/uL (140-400) Neutrophils (%) (Auto) 91 % (31-73) Lymphocytes (%) (Auto) 4 % (24-48) Monocytes (%) (Auto) 6 % (0-9) Eosinophils (%) (Auto) 0 % (0-3) Basophils (%) (Auto) 0 % (0-3) Neutrophils # (Auto) 15.7 x10^3uL (1.8-7.7) Lymphocytes # (Auto) 0.6 x10^3/uL (1.0-4.8) Monocytes # (Auto) 1.0 x10^3/uL (0.0-1.1) Eosinophils # (Auto) 0.0 x10^3/uL (0.0-0.7) Basophils # (Auto) 0.0 x10^3/uL (0.0-0.2) Prothrombin Time 16.1 SEC (11.7-14.0) Prothromb Time International Ratio 1.3 (0.8-1.1) Sodium Level 136 mmol/L (136-145) Potassium Level 5.1 mmol/L (3.5-5.1) Chloride Level 97 mmol/L (98-107) Carbon Dioxide Level 27 mmol/L (21-32) Anion Gap 12 (6-14) Blood Urea Nitrogen 46 mg/dL (7-20) Creatinine 3.6 mg/dL (0.6-1.0) Estimated GFR (Cockcroft-Gault) 12.0 Glucose Level 72 mg/dL (70-99) Calcium Level 7.6 mg/dL (8.5-10.1) Phosphorus Level 3.1 mg/dL (2.6-4.7) Albumin 2.7 g/dL (3.4-5.0) Laboratory Tests Test 07/30/18 17:38 07/30/18 20:36 07/31/18 05:50 07/31/18 07:16 Glucose (Fingerstick) 211 mg/dL (70-99) 165 mg/dL (70-99) 70 mg/dL (70-99) White Blood Count 17.3 x10^3/uL (4.0-11.0) Red Blood Count 2.64 x10^6/uL (3.50-5.40) Hemoglobin 9.3 g/dL (12.0-15.5) Hematocrit 28.0 % (36.0-47.0) Mean Corpuscular Volume 106 fL (79-100) Mean Corpuscular Hemoglobin 35 pg (25-35) Mean Corpuscular Hemoglobin Concent 33 g/dL (31-37) Red Cell Distribution Width 17.0 % (11.5-14.5) Platelet Count 144 x10^3/uL (140-400) Neutrophils (%) (Auto) 91 % (31-73) Lymphocytes (%) (Auto) 4 % (24-48) Monocytes (%) (Auto) 6 % (0-9) Eosinophils (%) (Auto) 0 % (0-3) Basophils (%) (Auto) 0 % (0-3) Neutrophils # (Auto) 15.7 x10^3uL (1.8-7.7) Lymphocytes # (Auto) 0.6 x10^3/uL (1.0-4.8) Monocytes # (Auto) 1.0 x10^3/uL (0.0-1.1) Eosinophils # (Auto) 0.0 x10^3/uL (0.0-0.7) Basophils # (Auto) 0.0 x10^3/uL (0.0-0.2) Prothrombin Time 16.1 SEC (11.7-14.0) Prothromb Time International Ratio 1.3 (0.8-1.1) Sodium Level 136 mmol/L (136-145) Potassium Level 5.1 mmol/L (3.5-5.1) Chloride Level 97 mmol/L (98-107) Carbon Dioxide Level 27 mmol/L (21-32) Anion Gap 12 (6-14) Blood Urea Nitrogen 46 mg/dL (7-20) Creatinine 3.6 mg/dL (0.6-1.0) Estimated GFR (Cockcroft-Gault) 12.0 Glucose Level 72 mg/dL (70-99) Calcium Level 7.6 mg/dL (8.5-10.1) Phosphorus Level 3.1 mg/dL (2.6-4.7) Albumin 2.7 g/dL (3.4-5.0) Assessment/Plan Assessment/Plan 87-year-old female with end-stage renal disease on dialysis via a right upper arm AV fistula. The patient was evaluated while on dialysis and the fistula appears to be functioning well, there is no active bleeding and there appears to be no aneurysmal dilatation of the fistula. The patient does have severe ecchymosis and some mild swelling. Ultrasound examination demonstrates that the fistula is patent. There is a small area of mural thrombus. In addition she has a small hematoma along the fistula probably related to the recent bleeding. Ultrasound examination on 23 July demonstrated some brachial vein thrombus surrounding a PICC line in the left arm. The PICC has been removed. She now has a right jugular vein central line. She has minimal arm swelling and denies pain or discomfort. In addition she has motor and sensation intact. Discussed history and examination with Dr. Barbosa, he has reviewed the images and we recommend continuing to hold anticoagulation. Recommend continued elevation of the left arm if she has swelling. If patient continues to have issues with bleeding recommend right upper arm fistulogram. MISSY GROSSMAN APRN Jul 31, 2018 13:29
--- NOTE | 2018-07-31 13:50 | NUR ---
SS following up with discharge planning. [facility] completing a written appeal to [employer] in hopes of having LTAC denial overturned. Pt's family wanting full aggressive care at this time. If pt is denied for LTAC pt will be able to go to halfway unit at [facility] once TPN/PPN and drips are discontinued. SS will await secondary appeal for LTAC and will proceed accordingly with discharge planning.
[2018-07-31] MEDS: ANTI-COAG MONITOR BY PHARMACY. MC PRN (15:00)
--- NOTE | 2018-07-31 15:03 | NUR ---
Pharmacy Warfarin Dosing Note S:Pharmacy consulted to assist with anticoagulation therapy with target INR: 2 -3 O:JOHNNY BENÍTEZ is a 87 year old F with UPPER EXTREMITY DVT LABS: Last INR: 1.3 Last HGB: 9.3 Last HCT: 28 Last PLT: 144 Last dose of Hold given on 07/30/18 at 1600 Previous Regimen: Vitamin K given: N Drug Interaction Changes: Same Interacting Drug A:INR of 1.3 is below desired range. Target range for this patient is: 2 -3 P: Warfarin dose: HOLD PER VASCULAR REC'S Bridge Therapy: Heparin Therapeutic - HELD Pharmacy anticoagulation service will continue to follow. Raven Chen RPH, 07/31/18 [id number]
[2018-07-31 15:12] VITALS: BP 128/61
[2018-07-31] MEDS ORDERED: WARFARIN 2 MG TABLET. PO ONE (16:00)
[2018-07-31] MEDS: FOLIC/VIT B COMP W-C (RENAL) TABLET. PO SCH (18:11)
[2018-07-31] MEDS: DIGOXIN 125 MCG TABLET. PO SCH (18:14)
[2018-07-31 19:46] VITALS: BP 110/38
[2018-07-31] MEDS: INSULIN GLARGINE 300 UNITS/3 ML INSULN.PEN. SQ SCH (21:00)
[2018-07-31] MEDS ORDERED: INSULIN LISPRO 300 UNITS/3 ML INSULN.PEN. SQ ONE (22:15)
--- NOTE | 2018-07-31 22:15 | NUR ---
called placed to Dr. Arceo regarding patient BS [phone] no sliding scale ordered for HS. Orders received.
[2018-07-31 22:57] VITALS: BP 118/40
[2018-08-01] VITALS (7 sets, daily range): BP systolic 107–140; BP diastolic 54–77
[2018-08-01 05:39] LABS: BASO # 0.1 x10^3/uL (0.0-0.2); BASO % 1 % (0-3); EOS % 0 % (0-3); HEMATOCRIT 28.2 % (36.0-47.0); HEMOGLOBIN 9.2 g/dL (12.0-15.5); LYMPH # 0.5 x10^3/uL (1.0-4.8); LYMPH % 4 % (24-48); MEAN CORPUSCULAR HEMOGLOBIN 35 pg (25-35); MEAN CORPUSCULAR HGB CONC 33 g/dL (31-37); MEAN CORPUSCULAR VOLUME 107 fL (79-100); MONO # 1.2 x10^3/uL (0.0-1.1); MONO % 8 % (0-9); NEUT # 12.5 x10^3uL (1.8-7.7); NEUT % 88 % (31-73); PLATELET COUNT 122 x10^3/uL (140-400); RED BLOOD COUNT 2.65 x10^6/uL (3.50-5.40); RED CELL DISTRIBUTION WIDTH 20.2 % (11.5-14.5); WHITE BLOOD COUNT 14.3 x10^3/uL (4.0-11.0)
[2018-08-01 05:44] LABS: PROTHROMBIN TIME PATIENT 15.7 SEC (11.7-14.0)
[2018-08-01 06:04] LABS: ALBUMIN 2.8 g/dL (3.4-5.0); CALCIUM 7.7 mg/dL (8.5-10.1); CREATININE 2.7 mg/dL (0.6-1.0); GFR 16.7; PHOSPHORUS 2.9 mg/dL (2.6-4.7); POTASSIUM 4.7 mmol/L (3.5-5.1)
[2018-08-01] MEDS: methylPREDNISolone SOD SUCC PF 40 MG/ML VIAL. IV SCH (06:05)
[2018-08-01] MEDS: PANTOPRAZOLE 40 MG TABLET.DR. PO SCH (06:07)
[2018-08-01] MEDS: MIDODRINE 2.5 MG TABLET PO SCH ×3 (06:07→17:49)
[2018-08-01] MEDS: IPRATRPIUM/ALBUTEROL 0.5/2.5MG 3 ML NEBU. NEB SCH ×4 (08:10→19:58)
--- NOTE | 2018-08-01 08:19 | PDOC ---
PROGRESS NOTES Chief Complaint Chief Complaint SOA, fluid overload and treating HCAP ESRD on dialysis-did not finish dialysis Existing AV fistula Hypotension, resolved now hypertension Anemia of chronic disease severe Generalized weakness SNU resident Diabetes type 2 on low-dose insulin uncontrolled// inc lantus to 14 units sq hs symptomatic with lethargy hypotension dysphagia, malnutrition MARKED DEBILITY, WEAKNESS Penetration of thin liquids w/ large drinks via cup, chin tuck and straw drinking were observed. Decreasing bolus size, keeping head in neutral position and alternating or utilizing a dry swallow were all effective strategies. No aspiration was observed during this evaluation. Occlusive thrombus in one brachial vein in the left upper arm surrounding an indwelling PICC line, on heparin for clot Dysphagia II diet w/ thin liquids, AGREE WITH LTAC/ PLANS REMAINS TO HAVE MARKED DECLINES SLOW TO IMPROVE with variability day to day, High risk of additional complications and readmission History of Present Illness History of Present Illness 87-year-old female //admitted from 07/10 thru 07/15, discharge 4 days [facility] to [facility] , 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 Bleeding from HD fistula, heparin level high, INR was up but has not been on coumadin which was started last night. Patchy ground glass opacification of the lungs. Dysphagia and aspiration /: She is not speaking much today. her AV fistula started spurting blood again last night. She is still very weak and dejected today. Held heparin and coumadin for AV fistula bleeding > 24 hours. This morning she is still in poor spirits. Denies CP, has shortness of breath and c/o dysphagia, encouraged to sit up in bed. AV fistula bleeding seems to have stopped. She is more weak today, requiring some assistance even with eating. She has been eating a lot of ice cream the past few days, glycemic control has been more difficult. Right arm very bruised. Tolerated dialysis well yesterday Plan: MOD-SEVERE protein-caloric malnutrition - on PPN, eating 50% and more from her meals, may benefit from backing off PPN as she is getting fluid overloaded. She may need to get back on PPN/TPN based on not eating again today. LTAC may actually be most appropriate for her. US RUE: 1. Patent AV fistula in the right upper arm containing a small bit of thrombus. 2. Small hypoechoic process adjacent to the fistula at the lateral antecubital fossa level, most likely representing a small hematoma. Vitals Vitals Vital Signs Date Time Temp Pulse Resp B/P (MAP) Pulse Ox O2 Delivery O2 Flow Rate FiO2 08/01/18 07:25 97.5 80 18 107/54 (71) 95 Room Air 97.5 Physical Exam Physical Exam GENERAL: Propped up in bed, awake, Looks well HEENT: anicteric getting breathing treatment LUNGS: Mild congestion - bilat HEART: S1, S2. ABDOMEN: , soft and nontender. EXTREMITIES: No edema, no cyanosis. SKIN: No generalized rash. Chronic skin changes present in both lower extremities. BEEF TRIMMER: Awake, appropriate RIJ (07/25) without signs of any complications AVF bandaged/bleeding General: Alert, No acute distress Heart: Regular rate Lungs: Crackles (less crackles) Abdomen: Other (obese) Extremities: Other (RUE: Palpable thrill in fistula, no obvious aneurysmal dilatiation, mild swelling in forearm and hand, severe ecchymosis, no active bleeding. Motor function and sensation intact. LLE: Mild swelling in forearm and hand, palpable brahial pulse. Motor function and sensation intact.) Skin: Other (as above, no open lesions.) Labs LABS Laboratory Tests Test 07/31/18 13:32 07/31/18 16:34 07/31/18 20:52 08/01/18 05:00 Glucose (Fingerstick) 119 mg/dL (70-99) 130 mg/dL (70-99) 360 mg/dL (70-99) White Blood Count 14.3 x10^3/uL (4.0-11.0) Red Blood Count 2.65 x10^6/uL (3.50-5.40) Hemoglobin 9.2 g/dL (12.0-15.5) Hematocrit 28.2 % (36.0-47.0) Mean Corpuscular Volume 107 fL (79-100) Mean Corpuscular Hemoglobin 35 pg (25-35) Mean Corpuscular Hemoglobin Concent 33 g/dL (31-37) Red Cell Distribution Width 20.2 % (11.5-14.5) Platelet Count 122 x10^3/uL (140-400) Neutrophils (%) (Auto) 88 % (31-73) Lymphocytes (%) (Auto) 4 % (24-48) Monocytes (%) (Auto) 8 % (0-9) Eosinophils (%) (Auto) 0 % (0-3) Basophils (%) (Auto) 1 % (0-3) Neutrophils # (Auto) 12.5 x10^3uL (1.8-7.7) Lymphocytes # (Auto) 0.5 x10^3/uL (1.0-4.8) Monocytes # (Auto) 1.2 x10^3/uL (0.0-1.1) Eosinophils # (Auto) 0.0 x10^3/uL (0.0-0.7) Basophils # (Auto) 0.1 x10^3/uL (0.0-0.2) Prothrombin Time 15.7 SEC (11.7-14.0) Prothromb Time International Ratio 1.3 (0.8-1.1) Sodium Level 137 mmol/L (136-145) Potassium Level 4.7 mmol/L (3.5-5.1) Chloride Level 98 mmol/L (98-107) Carbon Dioxide Level 29 mmol/L (21-32) Anion Gap 10 (6-14) Blood Urea Nitrogen 28 mg/dL (7-20) Creatinine 2.7 mg/dL (0.6-1.0) Estimated GFR (Cockcroft-Gault) 16.7 Glucose Level 195 mg/dL (70-99) Calcium Level 7.7 mg/dL (8.5-10.1) Phosphorus Level 2.9 mg/dL (2.6-4.7) Albumin 2.8 g/dL (3.4-5.0) Test 08/01/18 07:14 Glucose (Fingerstick) 242 mg/dL (70-99) Assessment and Plan Assessmemt and Plan Problems Medical Problems: (1) Congestive heart failure Status: Acute Comment Review of Relevant I have reviewed the following items smith (where applicable) has been applied. Labs Laboratory Tests Test 07/30/18 11:35 07/30/18 12:29 07/30/18 17:38 07/30/18 20:36 Glucose (Fingerstick) 174 mg/dL (70-99) 211 mg/dL (70-99) 165 mg/dL (70-99) Heparin Anti-Xa Act, Unfractionated 0.56 IU/mL (0.30-0.70) Test 07/30/18 22:20 07/31/18 05:50 07/31/18 07:16 07/31/18 13:32 Nasal Screen MRSA (PCR) Negative (Negative) White Blood Count 17.3 x10^3/uL (4.0-11.0) Red Blood Count 2.64 x10^6/uL (3.50-5.40) Hemoglobin 9.3 g/dL (12.0-15.5) Hematocrit 28.0 % (36.0-47.0) Mean Corpuscular Volume 106 fL (79-100) Mean Corpuscular Hemoglobin 35 pg (25-35) Mean Corpuscular Hemoglobin Concent 33 g/dL (31-37) Red Cell Distribution Width 17.0 % (11.5-14.5) Platelet Count 144 x10^3/uL (140-400) Neutrophils (%) (Auto) 91 % (31-73) Lymphocytes (%) (Auto) 4 % (24-48) Monocytes (%) (Auto) 6 % (0-9) Eosinophils (%) (Auto) 0 % (0-3) Basophils (%) (Auto) 0 % (0-3) Neutrophils # (Auto) 15.7 x10^3uL (1.8-7.7) Lymphocytes # (Auto) 0.6 x10^3/uL (1.0-4.8) Monocytes # (Auto) 1.0 x10^3/uL (0.0-1.1) Eosinophils # (Auto) 0.0 x10^3/uL (0.0-0.7) Basophils # (Auto) 0.0 x10^3/uL (0.0-0.2) Prothrombin Time 16.1 SEC (11.7-14.0) Prothromb Time International Ratio 1.3 (0.8-1.1) Sodium Level 136 mmol/L (136-145) Potassium Level 5.1 mmol/L (3.5-5.1) Chloride Level 97 mmol/L (98-107) Carbon Dioxide Level 27 mmol/L (21-32) Anion Gap 12 (6-14) Blood Urea Nitrogen 46 mg/dL (7-20) Creatinine 3.6 mg/dL (0.6-1.0) Estimated GFR (Cockcroft-Gault) 12.0 Glucose Level 72 mg/dL (70-99) Calcium Level 7.6 mg/dL (8.5-10.1) Phosphorus Level 3.1 mg/dL (2.6-4.7) Albumin 2.7 g/dL (3.4-5.0) Glucose (Fingerstick) 70 mg/dL (70-99) 119 mg/dL (70-99) Test 07/31/18 16:34 07/31/18 20:52 08/01/18 05:00 08/01/18 07:14 Glucose (Fingerstick) 130 mg/dL (70-99) 360 mg/dL (70-99) 242 mg/dL (70-99) White Blood Count 14.3 x10^3/uL (4.0-11.0) Red Blood Count 2.65 x10^6/uL (3.50-5.40) Hemoglobin 9.2 g/dL (12.0-15.5) Hematocrit 28.2 % (36.0-47.0) Mean Corpuscular Volume 107 fL (79-100) Mean Corpuscular Hemoglobin 35 pg (25-35) Mean Corpuscular Hemoglobin Concent 33 g/dL (31-37) Red Cell Distribution Width 20.2 % (11.5-14.5) Platelet Count 122 x10^3/uL (140-400) Neutrophils (%) (Auto) 88 % (31-73) Lymphocytes (%) (Auto) 4 % (24-48) Monocytes (%) (Auto) 8 % (0-9) Eosinophils (%) (Auto) 0 % (0-3) Basophils (%) (Auto) 1 % (0-3) Neutrophils # (Auto) 12.5 x10^3uL (1.8-7.7) Lymphocytes # (Auto) 0.5 x10^3/uL (1.0-4.8) Monocytes # (Auto) 1.2 x10^3/uL (0.0-1.1) Eosinophils # (Auto) 0.0 x10^3/uL (0.0-0.7) Basophils # (Auto) 0.1 x10^3/uL (0.0-0.2) Prothrombin Time 15.7 SEC (11.7-14.0) Prothromb Time International Ratio 1.3 (0.8-1.1) Sodium Level 137 mmol/L (136-145) Potassium Level 4.7 mmol/L (3.5-5.1) Chloride Level 98 mmol/L (98-107) Carbon Dioxide Level 29 mmol/L (21-32) Anion Gap 10 (6-14) Blood Urea Nitrogen 28 mg/dL (7-20) Creatinine 2.7 mg/dL (0.6-1.0) Estimated GFR (Cockcroft-Gault) 16.7 Glucose Level 195 mg/dL (70-99) Calcium Level 7.7 mg/dL (8.5-10.1) Phosphorus Level 2.9 mg/dL (2.6-4.7) Albumin 2.8 g/dL (3.4-5.0) Laboratory Tests Test 07/31/18 13:32 07/31/18 16:34 07/31/18 20:52 08/01/18 05:00 Glucose (Fingerstick) 119 mg/dL (70-99) 130 mg/dL (70-99) 360 mg/dL (70-99) White Blood Count 14.3 x10^3/uL (4.0-11.0) Red Blood Count 2.65 x10^6/uL (3.50-5.40) Hemoglobin 9.2 g/dL (12.0-15.5) Hematocrit 28.2 % (36.0-47.0) Mean Corpuscular Volume 107 fL (79-100) Mean Corpuscular Hemoglobin 35 pg (25-35) Mean Corpuscular Hemoglobin Concent 33 g/dL (31-37) Red Cell Distribution Width 20.2 % (11.5-14.5) Platelet Count 122 x10^3/uL (140-400) Neutrophils (%) (Auto) 88 % (31-73) Lymphocytes (%) (Auto) 4 % (24-48) Monocytes (%) (Auto) 8 % (0-9) Eosinophils (%) (Auto) 0 % (0-3) Basophils (%) (Auto) 1 % (0-3) Neutrophils # (Auto) 12.5 x10^3uL (1.8-7.7) Lymphocytes # (Auto) 0.5 x10^3/uL (1.0-4.8) Monocytes # (Auto) 1.2 x10^3/uL (0.0-1.1) Eosinophils # (Auto) 0.0 x10^3/uL (0.0-0.7) Basophils # (Auto) 0.1 x10^3/uL (0.0-0.2) Prothrombin Time 15.7 SEC (11.7-14.0) Prothromb Time International Ratio 1.3 (0.8-1.1) Sodium Level 137 mmol/L (136-145) Potassium Level 4.7 mmol/L (3.5-5.1) Chloride Level 98 mmol/L (98-107) Carbon Dioxide Level 29 mmol/L (21-32) Anion Gap 10 (6-14) Blood Urea Nitrogen 28 mg/dL (7-20) Creatinine 2.7 mg/dL (0.6-1.0) Estimated GFR (Cockcroft-Gault) 16.7 Glucose Level 195 mg/dL (70-99) Calcium Level 7.7 mg/dL (8.5-10.1) Phosphorus Level 2.9 mg/dL (2.6-4.7) Albumin 2.8 g/dL (3.4-5.0) Test 08/01/18 07:14 Glucose (Fingerstick) 242 mg/dL (70-99) Medications Current Medications Albuterol/ Ipratropium (Duoneb) 3 ml 1X ONCE NEB Last administered on at 12:57; Start 07/19/18 at 12:45; Stop 07/19/18 at 12:46; Status DC Ondansetron HCl (Zofran) 4 mg PRN Q8HRS PRN IV NAUSEA/VOMITING; Start 07/19/18 at 14:30; Stop 07/20/18 at 14:29; Status DC Acetaminophen (Tylenol) 650 mg PRN Q4HRS PRN PO FEVER; Start 07/19/18 at 14:30 ; Stop 07/20/18 at 08:37; Status DC Nitroglycerin (Nitrostat) 0.4 mg PRN Q5MIN PRN SL CHEST PAIN; Start 07/19/18 at 14:30; Stop 07/20/18 at 14:29; Status DC Albuterol/ Ipratropium (Duoneb) 3 ml RTQID NEB ; Start 07/19/18 at 16:00; Stop 07/20/18 at 15:59; Status Cancel Aspirin (Tracee Aspirin) 325 mg DAILY PO Last administered on 07/31/18 09:47; Start 07/19/18 at 15:00 Carvedilol (Coreg) 3.125 mg BIDWMEALS PO ; Start 07/19/18 at 17:00; Stop at 19:42; Status DC Cinacalcet (Sensipar) 30 mg DAILY PO Last administered on 07/31/18 09:48; Start 07/19/18 at 15:00 Diclofenac Sodium (Voltaren) 1 grisel BID TP Last administered on 07/31/18 09:48; Start 07/19/18 at 21:00 Fentanyl (Duragesic 12mcg/ Hr Patch) 1 patch Q3DAYS TD ; Start 07/19/18 at 15:00 ; Stop 07/19/18 at 19:42; Status DC Vitamin B Complex/ Vitamin C (Bela-Roland) 1 tab DAILYBFRSUP PO Last administered on 07/31/18 18:11; Start 07/19/18 at 17:00 Ondansetron HCl (Zofran Odt) 4 mg PRN Q6HRS PRN PO NAUSEA/VOMITING; Start 07/19 at 14:45 Sevelamer Carbonate (Renvela) 2.4 gm TIDWMEALS PO Last administered on 18:05; Start 07/19/18 at 17:00 Acetaminophen (Tylenol) 500 mg PRN Q6HRS PRN PO MILD PAIN / TEMP; Start at 14:45 Latanoprost (Xalatan) 1 drop QHS OU Last administered on 07/31/18 09:48; Start 07/19/18 at 21:00 Calcitriol (Rocaltrol) 0.25 mcg DAILY PO Last administered on 07/31/18 09:47; Start 07/20/18 at 09:00 Vitamin D (Vitamin D3) 1,000 unit DAILY PO Last administered on 07/31/18 09:49 ; Start 07/20/18 at 09:00 Hydromorphone HCl (Dilaudid) 2 mg PRN Q8HRS PRN PO MODERATE PAIN, SEVERE PAIN; Start 07/19/18 at 15:00; Stop 07/20/18 at 09:31; Status DC Insulin Glargine (Lantus) 5 units QHS SQ Last administered on 07/26/18at 21:46; Start 07/19/18 at 21:00; Stop 07/27/18 at 10:00; Status DC Non-Formulary Medication (Latanoprost/Pf (Latanoprost 0.005% Eye Drop)) 7.5 ml QHS OP ; Start 07/19/18 at 21:00; Status UNV Pantoprazole Sodium (Protonix) 40 mg DAILYAC PO Last administered on 07/24/18at 11:17; Start 07/20/18 at 07:30; Stop 07/27/18 at 09:10; Status DC Piperacillin Sod/ Tazobactam Sod (Zosyn Per Pharmacy) 1 each PRN DAILY PRN MC SEE COMMENTS; Start 07/19/18 at 14:45; Stop 07/24/18 at 11:11; Status DC Albuterol/ Ipratropium (Duoneb) 3 ml RTQID NEB Last administered on 07/31/18 20 :17; Start 07/19/18 at 16:00 Guaifenesin (Robitussin Dm) 10 ml QID PO Last administered on 07/31/18at 20:52; Start 07/19/18 at 17:00 Temazepam (Restoril) 7.5 mg PRN QHS PRN PO INSOMNIA Last administered on at 20:42; Start 07/19/18 at 14:45 Insulin Human Lispro (HumaLOG) 0-7 UNITS TIDWMEALS SQ Last administered on at 18:20; Start 07/19/18 at 17:00 Dextrose (Dextrose 50%-Water Syringe) 12.5 gm PRN Q15MIN PRN IV SEE COMMENTS; Start 07/19/18 at 14:45 Piperacillin Sod/ Tazobactam Sod 2.25 gm/Sodium Chloride 50 ml @ 100 mls/hr Q8H IV Last administered on 07/24/18at 00:10; Start 07/19/18 at 16:00; Stop at 08:08; Status DC Furosemide (Lasix) 40 mg 1X ONCE IVP Last administered on 07/19/18 14:52; Start 07/19/18 at 14:45; Stop 07/19/18 at 14:52; Status DC Docusate Sodium (Colace) 100 mg BID PO Last administered on 07/31/18 20:52; Start 07/19/18 at 21:00 Magnesium Hydroxide (Milk Of Magnesia) 2,400 mg PRN DAILY PRN PO CONSTIPATION; Start 07/19/18 at 19:45 Sodium Monofluorophosphate (Fleet Adult) 133 ml PRN DAILY PRN RC CONSTIPATION; Start 07/19/18 at 19:45; Stop 07/22/18 at 12:17; Status DC Bisacodyl (Dulcolax Supp) 10 mg PRN DAILY PRN WI CONSTIPATION 1ST CHOICE; Start 07/19/18 at 19:45 Polyethylene Glycol (miraLAX PACKET) 17 gm BID PO Last administered on 20:52; Start 07/19/18 at 21:00 Sennosides (Senna) 8.6 mg DAILY PO Last administered on 07/31/18 09:47; Start 07/20/18 at 09:00 Lactobacillus Rhamnosus (Culturelle) 1 cap BID PO Last administered on 20:52; Start 07/20/18 at 21:00 Methylprednisolone Sodium Succinate (SOLU-Medrol 40MG VIAL) 40 mg Q8HRS IV Last administered on 08/01/18 06:05; Start 07/20/18 at 14:00 Albumin Human 250 ml @ 62.5 mls/hr PRN Q6HRS PRN IV for MAP < 65 Last administered on 07/21/18 20:45; Start 07/20/18 at 09:45 Magnesium Sulfate 50 ml @ 25 mls/hr PRN DAILY PRN IV for Mag < 1.7 on am labs; Start 07/20/18 at 09:45 Dopamine HCl/ Dextrose 250 ml @ 6.124 mls/ hr CONT PRN IV SEE I/O RECORD Last administered on 07/24/18at 20:37; Start 07/20/18 at 12:00; Stop 07/26/18 at 14:13 ; Status DC Sodium Chloride 1,000 ml @ 1,000 mls/hr Q1H PRN IV hypotension; Start 07/21/18 at 13:00; Stop 07/21/18 at 18:59; Status DC Sodium Chloride 1,000 ml @ 400 mls/hr Q2H30M PRN IV PATENCY; Start 07/21/18 at 13:00; Stop 07/22/18 at 00:59; Status DC Info (PHARMACY MONITORING -- do not chart) 1 each PRN DAILY PRN MC SEE COMMENTS ; Start 07/21/18 at 13:30; Status UNV Info (PHARMACY MONITORING -- do not chart) 1 each PRN DAILY PRN MC SEE COMMENTS ; Start 07/21/18 at 13:30; Stop 07/24/18 at 07:10; Status DC Albumin Human 100 ml @ 100 mls/hr 1X ONCE IV Last administered on 07/21/18at 14:00; Start 07/21/18 at 13:30; Stop 07/21/18 at 14:29; Status DC Sodium Chloride 500 ml @ 500 mls/hr 1X ONCE IV Last administered on at 11:14; Start 07/22/18 at 11:15; Stop 07/22/18 at 12:14; Status DC Digoxin (Lanoxin) 125 mcg QMWF@1600 PO ; Start 07/23/18 at 16:00; Stop 07/23/18 at 16:00; Status DC Digoxin (Lanoxin) 125 mcg 1X ONCE PO Last administered on 07/22/18at 12:26; Start 07/22/18 at 12:00; Stop 07/22/18 at 12:01; Status DC Midodrine (Proamatine) 2.5 mg [id number] PO Last administered on 08/01/18at 06:07; Start 07/22/18 at 13:00 Digoxin (Lanoxin) 125 mcg QTUTHSA PO Last administered on 07/31/18at 18:14; Start 07/24/18 at 16:00 Sodium Chloride 500 ml @ 500 mls/hr 1X ONCE IV Last administered on at 15:42; Start 07/23/18 at 15:00; Stop 07/23/18 at 15:59; Status DC Sodium Chloride 1,000 ml @ 1,000 mls/hr Q1H PRN IV hypotension; Start 07/24/18 at 06:59; Stop 07/24/18 at 12:58; Status DC Albumin Human 200 ml @ 200 mls/hr 1X PRN PRN IV Hypotension Last administered on 07/24/18at 08:09; Start 07/24/18 at 07:00; Stop 07/24/18 at 12:59; Status DC Sodium Chloride 1,000 ml @ 400 mls/hr Q2H30M PRN IV PATENCY; Start 07/24/18 at 06:59; Stop 07/24/18 at 18:58; Status DC Info (PHARMACY MONITORING -- do not chart) 1 each PRN DAILY PRN MC SEE COMMENTS ; Start 07/24/18 at 07:00; Stop 07/25/18 at 11:17; Status DC Info (PHARMACY MONITORING -- do not chart) 1 each PRN DAILY PRN MC SEE COMMENTS ; Start 07/24/18 at 07:00; Status UNV Amoxicillin/ Clavulanate Potassium (Augmentin 500/ 125mg) 1 tab BID PO Last administered on 07/24/18at 11:16; Start 07/24/18 at 09:00; Stop 07/25/18 at 09:21 ; Status DC Amino Acids/ Glycerin/ Electrolytes 1,000 ml @ 50 mls/hr Q20H IV Last administered on 07/28/18at 21:12; Start 07/24/18 at 17:00; Stop 07/29/18 at 08:56; Status DC Heparin Sodium/ Dextrose 500 ml @ 0 mls/hr CONT PRN IV SEE I/O RECORD; Start at 19:30; Status Cancel Heparin Sodium (Porcine) (Heparin Sodium) 6,850 unit 1X ONCE IV Last administered on 07/24/18at 19:38; Start 07/24/18 at 19:30; Stop 07/24/18 at 19:33 ; Status DC Heparin Sodium/ Dextrose 500 ml @ 0 mls/hr CONT PRN IV SEE I/O RECORD; Start at 19:30; Status UNV Heparin Sodium (Porcine) (Heparin Sodium) 2,550 unit PRN Q6HRS PRN IV FOR UFH LEVEL LESS THAN 0.2; Start 07/24/18 at 19:30 Heparin Sodium (Porcine) (Heparin Sodium) 1,300 unit PRN Q6HRS PRN IV FOR UFH LEVEL 0.2 - 0.29 Last administered on 07/25/18at 23:25; Start 07/24/18 at 19:30 Heparin Sodium/ Dextrose 500 ml @ 0 mls/hr CONT PRN IV SEE I/O RECORD Last administered on 07/30/18at 04:32; Start 07/24/18 at 19:45 Sodium Chloride 1,000 ml @ 1,000 mls/hr Q1H PRN IV hypotension; Start 07/25/18 at 08:22; Stop 07/25/18 at 14:21; Status DC Albumin Human 200 ml @ 200 mls/hr 1X ONCE IV Last administered on 07/25/18at 08:49; Start 07/25/18 at 08:30; Stop 07/25/18 at 09:29; Status DC Diphenhydramine HCl (Benadryl) 25 mg 1X PRN PRN IV ITCHING; Start 07/25/18 at 08:30; Stop 07/26/18 at 08:29; Status DC Diphenhydramine HCl (Benadryl) 25 mg 1X PRN PRN IV ITCHING; Start 07/25/18 at 08:30; Stop 07/26/18 at 08:29; Status DC Sodium Chloride 1,000 ml @ 400 mls/hr Q2H30M PRN IV PATENCY; Start 07/25/18 at 08:22; Stop 07/25/18 at 20:21; Status DC Info (PHARMACY MONITORING -- do not chart) 1 each PRN DAILY PRN MC SEE COMMENTS ; Start 07/25/18 at 08:30; Stop 07/26/18 at 14:10; Status DC Piperacillin Sod/ Tazobactam Sod 2.25 gm/Sodium Chloride 50 ml @ 100 mls/hr Q8HRS IV Last administered on 07/28/18at 05:07; Start 07/25/18 at 09:30; Stop 07/28/18 at 09:31; Status DC Info (Anti-Coagulation Monitoring By Pharmacy) 1 each PRN DAILY PRN MC SEE COMMENTS Last administered on 07/31/18at 15:00; Start 07/25/18 at 11:30 Info (PHARMACY MONITORING -- do not chart) 1 each PRN DAILY PRN MC SEE COMMENTS ; Start 07/26/18 at 08:15; Status Cancel Info (PHARMACY MONITORING -- do not chart) 1 each PRN DAILY PRN MC SEE COMMENTS ; Start 07/26/18 at 08:15; Stop 07/26/18 at 08:17; Status DC Barium Sulfate (Varibar Thin Liquid Apple) 148 gm 1X ONCE PO Last administered on 07/26/18at 13:30; Start 07/26/18 at 13:30; Stop 07/26/18 at 13:31 ; Status DC Pantoprazole Sodium (PROTONIX VIAL for IV PUSH) 40 mg DAILYAC IVP Last administered on 07/28/18at 07:54; Start 07/27/18 at 11:30; Stop 07/28/18 at 10:43; Status DC Insulin Glargine (Lantus) 9 units QHS SQ Last administered on 07/27/18at 20:52; Start 07/27/18 at 21:00; Stop 07/28/18 at 14:03; Status DC Insulin Human Lispro (HumaLOG) 4 units TIDWMEALS SQ Last administered on 18:21; Start 07/27/18 at 12:00 Pantoprazole Sodium (Protonix) 40 mg DAILYAC PO Last administered on 08/01/18 06:07; Start 07/29/18 at 07:30 Insulin Glargine (Lantus) 14 units QHS SQ Last administered on 07/31/18at 21:00; Start 07/28/18 at 21:00 Warfarin Sodium (Coumadin) 2.5 mg DAILY16 PO ; Start 07/29/18 at 16:00; Stop 07/29 at 16:00; Status DC Warfarin Sodium (Coumadin Per Pharmacy) 1 each PRN DAILY PRN MC SEE COMMENTS Last administered on 07/31/18at 14:57; Start 07/29/18 at 09:00 Warfarin Sodium (Coumadin) 2 mg 1X WARF ONCE PO Last administered on 07/29/18 18:27; Start 07/29/18 at 16:00; Stop 07/29/18 at 16:01; Status DC Sodium Chloride 1,000 ml @ 1,000 mls/hr Q1H PRN IV hypotension; Start 07/29/18 at 13:50; Stop 07/29/18 at 19:49; Status DC Info (PHARMACY MONITORING -- do not chart) 1 each PRN DAILY PRN MC SEE COMMENTS ; Start 07/29/18 at 14:00; Status Cancel Info (PHARMACY MONITORING -- do not chart) 1 each PRN DAILY PRN MC SEE COMMENTS ; Start 07/29/18 at 14:00; Status UNV Warfarin Sodium (Coumadin) 2 mg 1X WARF ONCE PO ; Start 07/30/18 at 16:00; Stop 07/30/18 at 16:01; Status DC Sodium Chloride 1,000 ml @ 1,000 mls/hr Q1H PRN IV hypotension; Start 07/31/18 at 09:54; Stop 07/31/18 at 15:53; Status DC Albumin Human 200 ml @ 200 mls/hr 1X PRN PRN IV Hypotension; Start 07/31/18 at 10:00; Stop 07/31/18 at 15:59; Status DC Sodium Chloride 1,000 ml @ 400 mls/hr Q2H30M PRN IV PATENCY; Start 07/31/18 at 09:54; Stop 07/31/18 at 21:53; Status DC Info (PHARMACY MONITORING -- do not chart) 1 each PRN DAILY PRN MC SEE COMMENTS ; Start 07/31/18 at 10:00; Status UNV Info (PHARMACY MONITORING -- do not chart) 1 each PRN DAILY PRN MC SEE COMMENTS ; Start 07/31/18 at 10:00 Warfarin Sodium (Coumadin) 2 mg 1X WARF ONCE PO ; Start 07/31/18 at 16:00; Stop 07/31/18 at 16:01; Status Cancel Insulin Human Lispro (HumaLOG) 7 units 1X ONCE SQ Last administered on at 23:20; Start 07/31/18 at 22:15; Stop 07/31/18 at 22:16; Status DC Active Scripts Active Levemir (Insulin Detemir) 100 Unit/1 Ml Vial 5 Unit SQ QHS 30 Days Hold for < 140mg/dL Aspirin 325 Mg Tablet 1 Tab PO DAILY Reported Amlodipine Besylate 10 Mg Tablet 10 Mg PO DAILY Tylenol (Acetaminophen) 325 Mg Tablet 2 Tab PO PRN Q6HRS PRN Senna (Sennosides) 8.6 Mg Tablet 8.6 Mg PO DAILY Novolog Flexpen (Insulin Aspart) 100 Unit/1 Ml Insuln.pen 1 Unit SQ TIDAC Miralax (Polyethylene Glycol 3350) 17 Gm Powd.pack 1 Packet PO BID Milk Of Magnesia (Magnesium Hydroxide) 400 Mg/5 Ml Oral.susp 30 Ml PO PRN DAILY Duoneb 0.5-3(2.5) Mg/3 Ml (Albuterol/Ipratropium) 3 Ml Ampul.neb 3 Ml NEB TID Fleet Enema (Na Phos,M-B/Na Phos,Di-Ba) 133 Ml Enema 1 Each RC PRN DAILY PRN Dulcolax (Bisacodyl) 10 Mg Supp.rect 10 Mg RC PRN DAILY PRN Docusate Sodium 100 Mg Capsule 1 Cap PO BID Carvedilol (Carvedilol) 12.5 Mg Tablet 12.5 Mg PO BIDWMEALS Protonix (Pantoprazole Sodium) 20 Mg Tablet.dr 40 Mg PO DAILY Voltaren (Diclofenac Sodium) 100 Gm Gel..gram. 1 Gm TP BID Zofran Odt (Ondansetron) 4 Mg Tab.rapdis 4 Mg PO Q6HRS PRN Sensipar (Cinacalcet Hcl) 30 Mg Tablet 1 Tab PO DAILY Renvela (Sevelamer Carbonate) 2.4 Gm Powd.pack 2.4 Gm PO TIDWMEALS Lumigan (Bimatoprost) 2.5 Ml Drops 1 Drop EACHEYE QHS Calcitriol 0.25 Mcg Capsule 1 Cap PO DAILY Nephro-Roland Tablet (Folic Acid/Vitamin B Comp W-C) 0.8 Mg Tablet 1 Tab PO DAILYBFRSUP Vitamin D (Cholecalciferol (Vitamin D3)) 2,000 Unit Capsule 1 Cap PO DAILY Vitals/I & O Vital Sign - Last 24 Hours 07/31/18 07/31/18 07/31/18 07/31/18 15:12 16:55 18:11 18:14 Temp 97.6 97.6 Pulse 66 66 91 Resp 12 B/P (MAP) 128/61 (83) 128/76 128/76 Pulse Ox 99 O2 Delivery Room Air Room Air 07/31/18 07/31/18 07/31/18 07/31/18 19:40 19:46 20:17 22:57 Temp 98.3 98.3 98.3 98.3 Pulse 89 78 Resp 16 18 B/P (MAP) 110/38 (62) 118/40 (66) Pulse Ox 93 92 O2 Delivery Room Air Room Air Room Air Room Air 08/01/18 08/01/18 08/01/18 03:28 06:07 07:25 Temp 98.0 97.5 98.0 97.5 Pulse 86 82 80 Resp 18 18 B/P (MAP) 133/62 (85) 132/57 107/54 (71) Pulse Ox 97 95 O2 Delivery Room Air Room Air Intake and Output 07/31/18 07/31/18 08/01/18 15:00 23:00 07:00 Intake Total 120 ml 120 ml 0 ml Balance 120 ml 120 ml 0 ml MAHSA REYNOSO MD Aug 01, 2018 08:19
[2018-08-01] MEDS: CALCITRIOL 0.25 MCG CAPSULE. PO SCH (08:56)
[2018-08-01] MEDS: DOCUSATE SODIUM 100 MG CAPSULE. PO SCH ×2 (08:56→21:00)
[2018-08-01] MEDS: SEVELAMER CARBONATE 2.4 GM PACKET. PO SCH ×3 (08:56→17:00)
[2018-08-01] MEDS: CHOLECALCIFEROL (VITAMIN D3) 1,000 UNIT TABLET PO SCH (08:56)
[2018-08-01] MEDS: LACTOBACILLUS RHAMNOSUS GG 1 CAPSULE. PO SCH ×2 (08:56→20:30)
[2018-08-01] MEDS: CINACALCET HCL 30 MG TABLET PO SCH (08:56)
[2018-08-01] MEDS: ASPIRIN 325 MG TABLET PO SCH (08:56)
[2018-08-01] MEDS: DICLOFENAC SODIUM 1% TOPICAL GEL 100GM TUBE. TP SCH ×2 (08:57→20:39)
[2018-08-01] MEDS: guaiFENesin DM 200MG/20MG 10 ML SYRUP PO SCH ×4 (08:57→20:30)
[2018-08-01] MEDS: SENNOSIDES 8.6 MG TABLET PO SCH (08:57)
[2018-08-01] MEDS: POLYETHYLENE GLYCOL 3350 17 GM PACKET. PO SCH ×2 (08:57→21:00)
[2018-08-01] MEDS: INSULIN LISPRO 300 UNITS/3 ML INSULN.PEN. SQ SCH ×6 (09:00→17:54)
--- NOTE | 2018-08-01 09:17 | PDOC ---
Subjective: Subjective: "I'm still here." Objective: Objective: D/w RN - bleeding stopped, not hungry - would like pancakes for every meal today. Vital Signs: Vital Signs Date Time Temp Pulse Resp B/P (MAP) Pulse Ox O2 Delivery O2 Flow Rate FiO2 08/01/18 08:10 98 Room Air 08/01/18 07:25 97.5 80 18 107/54 (71) 97.5 Labs: Laboratory Tests Test 07/31/18 13:32 07/31/18 16:34 07/31/18 20:52 08/01/18 05:00 Glucose (Fingerstick) 119 mg/dL 130 mg/dL 360 mg/dL White Blood Count 14.3 x10^3/uL Red Blood Count 2.65 x10^6/uL Hemoglobin 9.2 g/dL Hematocrit 28.2 % Mean Corpuscular Volume 107 fL Mean Corpuscular Hemoglobin 35 pg Mean Corpuscular Hemoglobin Concent 33 g/dL Red Cell Distribution Width 20.2 % Platelet Count 122 x10^3/uL Neutrophils (%) (Auto) 88 % Lymphocytes (%) (Auto) 4 % Monocytes (%) (Auto) 8 % Eosinophils (%) (Auto) 0 % Basophils (%) (Auto) 1 % Neutrophils # (Auto) 12.5 x10^3uL Lymphocytes # (Auto) 0.5 x10^3/uL Monocytes # (Auto) 1.2 x10^3/uL Eosinophils # (Auto) 0.0 x10^3/uL Basophils # (Auto) 0.1 x10^3/uL Prothrombin Time 15.7 SEC Prothromb Time International Ratio 1.3 Sodium Level 137 mmol/L Potassium Level 4.7 mmol/L Chloride Level 98 mmol/L Carbon Dioxide Level 29 mmol/L Anion Gap 10 Blood Urea Nitrogen 28 mg/dL Creatinine 2.7 mg/dL Estimated GFR (Cockcroft-Gault) 16.7 Glucose Level 195 mg/dL Calcium Level 7.7 mg/dL Phosphorus Level 2.9 mg/dL Albumin 2.8 g/dL Test 08/01/18 07:14 Glucose (Fingerstick) 242 mg/dL PE: GEN: NAD LUNGS: CTAB HEART: RRR ABD: S/ND/NT NEURO/PSYCH: A & O 3 A/P: Chronic anemia - stable, anticoagulation held -- No GI bleeding, continue PPI. REDD NAVARRO Aug 01, 2018 09:17
--- NOTE | 2018-08-01 09:31 | PDOC ---
PULMONARY PROGRESS NOTES Subjective NOT MORE SOA Vitals Vital Signs Date Time Temp Pulse Resp B/P (MAP) Pulse Ox O2 Delivery O2 Flow Rate FiO2 08/01/18 08:10 98 Room Air 08/01/18 07:25 97.5 80 18 107/54 (71) 97.5 ROS: No Nausea, No Chest Pain, No Abdominal Pain, No Increase Cough General: Alert, No acute distress Lungs: Crackles (less crackles) Cardiovascular: S1, S2 Abdomen: Soft Neuro Exam: Alert Extremities: Other (EDEMA L) Skin: Warm Labs Laboratory Tests Test 07/30/18 11:35 07/30/18 12:29 07/30/18 17:38 07/30/18 20:36 Glucose (Fingerstick) 174 mg/dL (70-99) 211 mg/dL (70-99) 165 mg/dL (70-99) Heparin Anti-Xa Act, Unfractionated 0.56 IU/mL (0.30-0.70) Test 07/30/18 22:20 07/31/18 05:50 07/31/18 07:16 07/31/18 13:32 Nasal Screen MRSA (PCR) Negative (Negative) White Blood Count 17.3 x10^3/uL (4.0-11.0) Red Blood Count 2.64 x10^6/uL (3.50-5.40) Hemoglobin 9.3 g/dL (12.0-15.5) Hematocrit 28.0 % (36.0-47.0) Mean Corpuscular Volume 106 fL (79-100) Mean Corpuscular Hemoglobin 35 pg (25-35) Mean Corpuscular Hemoglobin Concent 33 g/dL (31-37) Red Cell Distribution Width 17.0 % (11.5-14.5) Platelet Count 144 x10^3/uL (140-400) Neutrophils (%) (Auto) 91 % (31-73) Lymphocytes (%) (Auto) 4 % (24-48) Monocytes (%) (Auto) 6 % (0-9) Eosinophils (%) (Auto) 0 % (0-3) Basophils (%) (Auto) 0 % (0-3) Neutrophils # (Auto) 15.7 x10^3uL (1.8-7.7) Lymphocytes # (Auto) 0.6 x10^3/uL (1.0-4.8) Monocytes # (Auto) 1.0 x10^3/uL (0.0-1.1) Eosinophils # (Auto) 0.0 x10^3/uL (0.0-0.7) Basophils # (Auto) 0.0 x10^3/uL (0.0-0.2) Prothrombin Time 16.1 SEC (11.7-14.0) Prothromb Time International Ratio 1.3 (0.8-1.1) Sodium Level 136 mmol/L (136-145) Potassium Level 5.1 mmol/L (3.5-5.1) Chloride Level 97 mmol/L (98-107) Carbon Dioxide Level 27 mmol/L (21-32) Anion Gap 12 (6-14) Blood Urea Nitrogen 46 mg/dL (7-20) Creatinine 3.6 mg/dL (0.6-1.0) Estimated GFR (Cockcroft-Gault) 12.0 Glucose Level 72 mg/dL (70-99) Calcium Level 7.6 mg/dL (8.5-10.1) Phosphorus Level 3.1 mg/dL (2.6-4.7) Albumin 2.7 g/dL (3.4-5.0) Glucose (Fingerstick) 70 mg/dL (70-99) 119 mg/dL (70-99) Test 07/31/18 16:34 07/31/18 20:52 08/01/18 05:00 08/01/18 07:14 Glucose (Fingerstick) 130 mg/dL (70-99) 360 mg/dL (70-99) 242 mg/dL (70-99) White Blood Count 14.3 x10^3/uL (4.0-11.0) Red Blood Count 2.65 x10^6/uL (3.50-5.40) Hemoglobin 9.2 g/dL (12.0-15.5) Hematocrit 28.2 % (36.0-47.0) Mean Corpuscular Volume 107 fL (79-100) Mean Corpuscular Hemoglobin 35 pg (25-35) Mean Corpuscular Hemoglobin Concent 33 g/dL (31-37) Red Cell Distribution Width 20.2 % (11.5-14.5) Platelet Count 122 x10^3/uL (140-400) Neutrophils (%) (Auto) 88 % (31-73) Lymphocytes (%) (Auto) 4 % (24-48) Monocytes (%) (Auto) 8 % (0-9) Eosinophils (%) (Auto) 0 % (0-3) Basophils (%) (Auto) 1 % (0-3) Neutrophils # (Auto) 12.5 x10^3uL (1.8-7.7) Lymphocytes # (Auto) 0.5 x10^3/uL (1.0-4.8) Monocytes # (Auto) 1.2 x10^3/uL (0.0-1.1) Eosinophils # (Auto) 0.0 x10^3/uL (0.0-0.7) Basophils # (Auto) 0.1 x10^3/uL (0.0-0.2) Prothrombin Time 15.7 SEC (11.7-14.0) Prothromb Time International Ratio 1.3 (0.8-1.1) Sodium Level 137 mmol/L (136-145) Potassium Level 4.7 mmol/L (3.5-5.1) Chloride Level 98 mmol/L (98-107) Carbon Dioxide Level 29 mmol/L (21-32) Anion Gap 10 (6-14) Blood Urea Nitrogen 28 mg/dL (7-20) Creatinine 2.7 mg/dL (0.6-1.0) Estimated GFR (Cockcroft-Gault) 16.7 Glucose Level 195 mg/dL (70-99) Calcium Level 7.7 mg/dL (8.5-10.1) Phosphorus Level 2.9 mg/dL (2.6-4.7) Albumin 2.8 g/dL (3.4-5.0) Laboratory Tests Test 07/31/18 13:32 07/31/18 16:34 07/31/18 20:52 08/01/18 05:00 Glucose (Fingerstick) 119 mg/dL (70-99) 130 mg/dL (70-99) 360 mg/dL (70-99) White Blood Count 14.3 x10^3/uL (4.0-11.0) Red Blood Count 2.65 x10^6/uL (3.50-5.40) Hemoglobin 9.2 g/dL (12.0-15.5) Hematocrit 28.2 % (36.0-47.0) Mean Corpuscular Volume 107 fL (79-100) Mean Corpuscular Hemoglobin 35 pg (25-35) Mean Corpuscular Hemoglobin Concent 33 g/dL (31-37) Red Cell Distribution Width 20.2 % (11.5-14.5) Platelet Count 122 x10^3/uL (140-400) Neutrophils (%) (Auto) 88 % (31-73) Lymphocytes (%) (Auto) 4 % (24-48) Monocytes (%) (Auto) 8 % (0-9) Eosinophils (%) (Auto) 0 % (0-3) Basophils (%) (Auto) 1 % (0-3) Neutrophils # (Auto) 12.5 x10^3uL (1.8-7.7) Lymphocytes # (Auto) 0.5 x10^3/uL (1.0-4.8) Monocytes # (Auto) 1.2 x10^3/uL (0.0-1.1) Eosinophils # (Auto) 0.0 x10^3/uL (0.0-0.7) Basophils # (Auto) 0.1 x10^3/uL (0.0-0.2) Prothrombin Time 15.7 SEC (11.7-14.0) Prothromb Time International Ratio 1.3 (0.8-1.1) Sodium Level 137 mmol/L (136-145) Potassium Level 4.7 mmol/L (3.5-5.1) Chloride Level 98 mmol/L (98-107) Carbon Dioxide Level 29 mmol/L (21-32) Anion Gap 10 (6-14) Blood Urea Nitrogen 28 mg/dL (7-20) Creatinine 2.7 mg/dL (0.6-1.0) Estimated GFR (Cockcroft-Gault) 16.7 Glucose Level 195 mg/dL (70-99) Calcium Level 7.7 mg/dL (8.5-10.1) Phosphorus Level 2.9 mg/dL (2.6-4.7) Albumin 2.8 g/dL (3.4-5.0) Test 08/01/18 07:14 Glucose (Fingerstick) 242 mg/dL (70-99) Medications Active Scripts Medications Dose Route/Sig Max Daily Dose Days Date Category Dose Instructions Senna (Sennosides) 8.6 Mg Tablet 8.6 Mg PO DAILY 07/19/18 Reported Novolog Flexpen (Insulin Aspart) 100 Unit/1 Ml Insuln.pen 1 Unit SQ TIDAC 07/19/18 Reported Miralax (Polyethylene Glycol 3350) 17 Gm Powd.pack 1 Packet PO BID 07/19/18 Reported Milk Of Magnesia (Magnesium Hydroxide) 400 Mg/5 Ml Oral.susp 30 Ml PO PRN DAILY 07/19/18 Reported Duoneb 0.5-3(2.5) Mg/3 Ml (Albuterol/Ipratropium) 3 Ml Ampul.neb 3 Ml NEB TID 07/19/18 Reported Fleet Enema (Na Phos,M-B/Na Phos,Di-Ba) 133 Ml Enema 1 Each RC PRN DAILY PRN 07/19/18 Reported Dulcolax (Bisacodyl) 10 Mg Supp.rect 10 Mg RC PRN DAILY PRN 07/19/18 Reported Docusate Sodium 100 Mg Capsule 1 Cap PO BID 07/19/18 Reported Carvedilol (Carvedilol) 12.5 Mg Tablet 12.5 Mg PO BIDWMEALS 07/19/18 Reported Levemir (Insulin Detemir) 100 Unit/1 Ml Vial 5 Unit SQ QHS 30 07/15/18 Rx Hold for < 140mg/dL Acetaminophen 500 Mg Tablet 500 Mg PO PRN Q6HRS PRN 30 07/14/18 Rx Aspirin 325 Mg Tablet 1 Tab PO DAILY 04/16/18 Rx Protonix (Pantoprazole Sodium) 20 Mg Tablet.dr 40 Mg PO DAILY 11/06/17 Reported Voltaren (Diclofenac Sodium) 100 Gm Gel..gram. 1 Gm TP BID 11/06/17 Reported Zofran Odt (Ondansetron) 4 Mg Tab.rapdis 4 Mg PO Q6HRS PRN 10/30/17 Reported Sensipar (Cinacalcet Hcl) 30 Mg Tablet 1 Tab PO DAILY 02/04/17 Reported Renvela (Sevelamer Carbonate) 2.4 Gm Powd.pack 2.4 Gm PO TIDWMEALS 02/04/17 Reported Lumigan (Bimatoprost) 2.5 Ml Drops 1 Drop EACHEYE QHS 02/04/17 Reported Calcitriol 0.25 Mcg Capsule 1 Cap PO DAILY 01/18/17 Reported Nephro-Roland Tablet (Folic Acid/Vitamin B Comp W-C) 0.8 Mg Tablet 1 Tab PO DAILYBFRSUP 11/26/15 Reported Vitamin D (Cholecalciferol (Vitamin D3)) 2,000 Unit Capsule 1 Cap PO DAILY 11/26/15 Reported Impression . IMPRESSION: 1. Dyspnea with cough and mild bronchospasm POA, likely related to viral pneumonitis, triggering bronchospasm POA. She may have adult onset reactive airway disease. resolved now 2. Recent abnormal CT chest on 07/11 suggesting upper lobe viral pneumonitis. She has some ground glass infiltrates at that time. 3. End-stage renal disease, on hemodialysis. 4. Underlying obesity. 5. Chronic hypoxic respiratory failure, on home oxygen 2 liters. 6 HYPOTENSION IMPROVED 7. LEONIE EXT BRACHIAL CLOT SEE BELOW PICC REMOVED 07/25 CENTRAL LINE 07/25 Impression: Successful ultrasound-guided placement of right internal jugular triple-lumen central venous catheter Plan . RESP STATUS IMPROVED AWAITING LTAC EVAL/ APPROVAL CONTINUE THE SAME STARTED ON HEPARIN/ COUMADIN FOR BRACHIAL CLOT/ NEEDS SHORT TERM AC ( 2-4 WEEKS) / REPEAT DOPPLERS IN 2 WEEKS) CHANGE TO PO STEROIDS GIAN SHAFFER MD Aug 01, 2018 09:31
--- NOTE | 2018-08-01 14:47 | PDOC ---
SUBJECTIVE ROS Stable, no new concerns OBJECTIVE Vital Signs Vital Signs Date Time Temp Pulse Resp B/P (MAP) Pulse Ox O2 Delivery O2 Flow Rate FiO2 08/01/18 13:21 83 116/77 08/01/18 11:14 97 Room Air 08/01/18 10:41 98.2 16 98.2 I & 0 Intake and Output 08/01/18 07:00 Intake Total 240 ml Balance 240 ml Intake Oral 240 ml # Bowel Movements 1 PHYSICAL EXAM Physical Exam General: Alert, No acute distress Lungs: Crackles (less crackles) Cardiovascular: S1, S2 Abdomen: Soft Neuro Exam: Alert Extremities: Other (EDEMA L) Skin: Warm DIAGNOSIS/ASSESSMENT Assessment & Plan ESRD- TTS Currently no indication for HD today Chronic anemia - UE bleeding yesterday, no GI bleeding Dyspnea- On Abx for HCAP Dysphagia, malnutrition US Rt UE -- 1. Patent AV fistula in the right upper arm containing a small bit of thrombus. 2. Small hypoechoic process adjacent to the fistula at the lateral antecubital fossa level, most likely representing a small hematoma. COMMENT/RELEVANT DATA Meds Current Medications Medications (Trade) Dose Ordered Sig/Homa Start Time Stop Time Status Last Admin Dose Admin Acetaminophen (Tylenol) 500 mg PRN Q6HRS PRN 07/19/18 14:45 Albumin Human 200 ml @ 200 mls/hr 1X PRN PRN 07/31/18 10:00 07/31/18 15:59 DC Albuterol/ Ipratropium (Duoneb) 3 ml RTQID 07/19/18 16:00 08/01/18 11:14 3 ML Amino Acids/ Glycerin/ Electrolytes 1,000 ml @ 50 mls/hr Q20H 07/24/18 17:00 07/29/18 08:56 DC 07/28/18 21:12 50 MLS/HR Amoxicillin/ Clavulanate Potassium (Augmentin 500/ 125mg) 1 tab BID 07/24/18 09:00 07/25/18 09:21 DC 07/24/18 11:16 1 TAB Aspirin (Tracee Aspirin) 325 mg DAILY 07/19/18 15:00 08/01/18 08:56 325 MG Barium Sulfate (Varibar Thin Liquid Apple) 148 gm 1X ONCE 07/26/18 13:30 07/26/18 13:31 DC 07/26/18 13:30 148 GM Bisacodyl (Dulcolax Supp) 10 mg PRN DAILY PRN 07/19/18 19:45 Calcitriol (Rocaltrol) 0.25 mcg DAILY 07/20/18 09:00 08/01/18 08:56 0.25 MCG Carvedilol (Coreg) 3.125 mg BIDWMEALS 07/19/18 17:00 07/19/18 19:42 DC Cinacalcet (Sensipar) 30 mg DAILY 07/19/18 15:00 08/01/18 08:56 30 MG Dextrose (Dextrose 50%-Water Syringe) 12.5 gm PRN Q15MIN PRN 07/19/18 14:45 Diclofenac Sodium (Voltaren) 1 grisel BID 07/19/18 21:00 08/01/18 08:57 1 GRISEL Digoxin (Lanoxin) 125 mcg QTUTHSA 07/24/18 16:00 07/31/18 18:14 125 MCG Diphenhydramine HCl (Benadryl) 25 mg 1X PRN PRN 07/25/18 08:30 07/26/18 08:29 DC Docusate Sodium (Colace) 100 mg BID 07/19/18 21:00 08/01/18 08:56 100 MG Dopamine HCl/ Dextrose 250 ml @ 6.124 mls/ hr CONT PRN 07/20/18 12:00 07/26/18 14:13 DC 07/24/18 20:37 30.618 MLS/HR Fentanyl (Duragesic 12mcg/ Hr Patch) 1 patch Q3DAYS 07/19/18 15:00 07/19/18 19:42 DC Furosemide (Lasix) 40 mg 1X ONCE 07/19/18 14:45 07/19/18 14:52 DC 07/19/18 14:52 40 MG Guaifenesin (Robitussin Dm) 10 ml QID 07/19/18 17:00 07/31/18 20:52 10 ML Heparin Sodium (Porcine) (Heparin Sodium) 1,300 unit PRN Q6HRS PRN 07/24/18 19:30 07/25/18 23:25 1,300 UNIT Heparin Sodium/ Dextrose 500 ml @ 0 mls/hr CONT PRN 07/24/18 19:45 07/30/18 04:32 18.8 MLS/HR Hydromorphone HCl (Dilaudid) 2 mg PRN Q8HRS PRN 07/19/18 15:00 07/20/18 09:31 DC Info (Anti-Coagulation Monitoring By Pharmacy) 1 each PRN DAILY PRN 07/25/18 11:30 07/31/18 15:00 1 EACH Info (PHARMACY MONITORING -- do not chart) 1 each PRN DAILY PRN 07/31/18 10:00 Insulin Glargine (Lantus) 14 units QHS 07/28/18 21:00 07/31/18 21:00 14 UNITS Insulin Human Lispro (HumaLOG) 7 units 1X ONCE 07/31/18 22:15 07/31/18 22:16 DC 07/31/18 23:20 7 UNITS Lactobacillus Rhamnosus (Culturelle) 1 cap BID 07/20/18 21:00 08/01/18 08:56 1 CAP Latanoprost (Xalatan) 1 drop QHS 07/19/18 21:00 07/31/18 09:48 1 DROP Magnesium Hydroxide (Milk Of Magnesia) 2,400 mg PRN DAILY PRN 07/19/18 19:45 Magnesium Sulfate 50 ml @ 25 mls/hr PRN DAILY PRN 07/20/18 09:45 Methylprednisolone Sodium Succinate (SOLU-Medrol 40MG VIAL) 40 mg Q8HRS 07/20/18 14:00 08/01/18 09:32 DC 08/01/18 06:05 40 MG Midodrine (Proamatine) 2.5 mg [id number] 07/22/18 13:00 08/01/18 13:21 2.5 MG Nitroglycerin (Nitrostat) 0.4 mg PRN Q5MIN PRN 07/19/18 14:30 07/20/18 14:29 DC Non-Formulary Medication (Latanoprost/Pf (Latanoprost 0.005% Eye Drop)) 7.5 ml QHS 07/19/18 21:00 UNV Ondansetron HCl (Zofran Odt) 4 mg PRN Q6HRS PRN 07/19/18 14:45 Ondansetron HCl (Zofran) 4 mg PRN Q8HRS PRN 07/19/18 14:30 07/20/18 14:29 DC Pantoprazole Sodium (PROTONIX VIAL for IV PUSH) 40 mg DAILYAC 07/27/18 11:30 07/28/18 10:43 DC 07/28/18 07:54 40 MG Pantoprazole Sodium (Protonix) 40 mg DAILYAC 07/29/18 07:30 08/01/18 06:07 40 MG Piperacillin Sod/ Tazobactam Sod (Zosyn Per Pharmacy) 1 each PRN DAILY PRN 07/19/18 14:45 07/24/18 11:11 DC Piperacillin Sod/ Tazobactam Sod 2.25 gm/Sodium Chloride 50 ml @ 100 mls/hr Q8HRS 07/25/18 09:30 07/28/18 09:31 DC 07/28/18 05:07 100 MLS/HR Polyethylene Glycol (miraLAX PACKET) 17 gm BID 07/19/18 21:00 07/31/18 20:52 17 GM Prednisone (Prednisone) 20 mg DAILY 08/02/18 09:00 Sennosides (Senna) 8.6 mg DAILY 07/20/18 09:00 07/31/18 09:47 8.6 MG Sevelamer Carbonate (Renvela) 2.4 gm TIDWMEALS 07/19/18 17:00 08/01/18 08:56 2.4 GM Sodium Monofluorophosphate (Fleet Adult) 133 ml PRN DAILY PRN 07/19/18 19:45 07/22/18 12:17 DC Sodium Chloride 1,000 ml @ 400 mls/hr Q2H30M PRN 07/31/18 09:54 07/31/18 21:53 DC Temazepam (Restoril) 7.5 mg PRN QHS PRN 07/19/18 14:45 07/22/18 20:42 7.5 MG Vitamin B Complex/ Vitamin C (Bela-Roland) 1 tab DAILYBFRSUP 07/19/18 17:00 07/31/18 18:11 1 TAB Vitamin D (Vitamin D3) 1,000 unit DAILY 07/20/18 09:00 08/01/18 08:56 1,000 UNIT Warfarin Sodium (Coumadin Per Pharmacy) 1 each PRN DAILY PRN 07/29/18 09:00 07/31/18 14:57 1 EACH Warfarin Sodium (Coumadin) 2 mg 1X WARF ONCE 07/31/18 16:00 07/31/18 16:01 Cancel Lab Laboratory Tests Test 07/31/18 16:34 07/31/18 20:52 08/01/18 05:00 08/01/18 07:14 Glucose (Fingerstick) 130 mg/dL (70-99) 360 mg/dL (70-99) 242 mg/dL (70-99) White Blood Count 14.3 x10^3/uL (4.0-11.0) Red Blood Count 2.65 x10^6/uL (3.50-5.40) Hemoglobin 9.2 g/dL (12.0-15.5) Hematocrit 28.2 % (36.0-47.0) Mean Corpuscular Volume 107 fL (79-100) Mean Corpuscular Hemoglobin 35 pg (25-35) Mean Corpuscular Hemoglobin Concent 33 g/dL (31-37) Red Cell Distribution Width 20.2 % (11.5-14.5) Platelet Count 122 x10^3/uL (140-400) Neutrophils (%) (Auto) 88 % (31-73) Lymphocytes (%) (Auto) 4 % (24-48) Monocytes (%) (Auto) 8 % (0-9) Eosinophils (%) (Auto) 0 % (0-3) Basophils (%) (Auto) 1 % (0-3) Neutrophils # (Auto) 12.5 x10^3uL (1.8-7.7) Lymphocytes # (Auto) 0.5 x10^3/uL (1.0-4.8) Monocytes # (Auto) 1.2 x10^3/uL (0.0-1.1) Eosinophils # (Auto) 0.0 x10^3/uL (0.0-0.7) Basophils # (Auto) 0.1 x10^3/uL (0.0-0.2) Prothrombin Time 15.7 SEC (11.7-14.0) Prothromb Time International Ratio 1.3 (0.8-1.1) Sodium Level 137 mmol/L (136-145) Potassium Level 4.7 mmol/L (3.5-5.1) Chloride Level 98 mmol/L (98-107) Carbon Dioxide Level 29 mmol/L (21-32) Anion Gap 10 (6-14) Blood Urea Nitrogen 28 mg/dL (7-20) Creatinine 2.7 mg/dL (0.6-1.0) Estimated GFR (Cockcroft-Gault) 16.7 Glucose Level 195 mg/dL (70-99) Calcium Level 7.7 mg/dL (8.5-10.1) Phosphorus Level 2.9 mg/dL (2.6-4.7) Albumin 2.8 g/dL (3.4-5.0) Test 08/01/18 11:22 08/01/18 14:16 Glucose (Fingerstick) 224 mg/dL (70-99) 230 mg/dL (70-99) Results All relevant outside records, renal labs, imaging studies, telemetry/EKG's were reviewed. ASHU GARDINER MD Aug 01, 2018 14:47
[2018-08-01] MEDS: FOLIC/VIT B COMP W-C (RENAL) TABLET. PO SCH (17:42)
[2018-08-01] MEDS: LATANOPROST 0.005% OPHTH SOLUTION 2.5ML BOTTLE. OU SCH (20:31)
[2018-08-01] MEDS: INSULIN GLARGINE 300 UNITS/3 ML INSULN.PEN. SQ SCH (20:39)
[2018-08-02 03:00] VITALS: BP 109/46
[2018-08-02 05:13] LABS: BASO % 0 % (0-3); EOS # 0.1 x10^3/uL (0.0-0.7); EOS % 1 % (0-3); HEMOGLOBIN 9.5 g/dL (12.0-15.5); LYMPH # 1.9 x10^3/uL (1.0-4.8); LYMPH % 14 % (24-48); MEAN CORPUSCULAR HEMOGLOBIN 35 pg (25-35); MEAN CORPUSCULAR HGB CONC 33 g/dL (31-37); MEAN CORPUSCULAR VOLUME 107 fL (79-100); MONO # 1.2 x10^3/uL (0.0-1.1); MONO % 9 % (0-9); NEUT # 10.1 x10^3uL (1.8-7.7); NEUT % 76 % (31-73); PLATELET COUNT 120 x10^3/uL (140-400); RED BLOOD COUNT 2.71 x10^6/uL (3.50-5.40); RED CELL DISTRIBUTION WIDTH 20.2 % (11.5-14.5); WHITE BLOOD COUNT 13.3 x10^3/uL (4.0-11.0)
[2018-08-02 05:34] LABS: ALBUMIN 2.9 g/dL (3.4-5.0); CALCIUM 7.7 mg/dL (8.5-10.1); CREATININE 3.5 mg/dL (0.6-1.0); GFR 12.4; PHOSPHORUS 2.6 mg/dL (2.6-4.7); POTASSIUM 4.6 mmol/L (3.5-5.1)
[2018-08-02] MEDS: MIDODRINE 2.5 MG TABLET PO SCH ×3 (06:10→18:33)
[2018-08-02] MEDS: PANTOPRAZOLE 40 MG TABLET.DR. PO SCH (06:10)
[2018-08-02] MEDS: DEXTROSE 50% 25 GM / 50ML DISP.SYRIN. IV PRN (06:18)
--- NOTE | 2018-08-02 07:18 | PDOC ---
PULMONARY PROGRESS NOTES Subjective is tired, has occ cough, sob better. Vitals Vital Signs Date Time Temp Pulse Resp B/P (MAP) Pulse Ox O2 Delivery O2 Flow Rate FiO2 08/02/18 06:10 73 123/58 08/02/18 03:00 96.4 16 99 Room Air 96.4 ROS: No Nausea, No Chest Pain, No Abdominal Pain, No Increase Cough General: Alert, No acute distress Lungs: Crackles (less crackles) Cardiovascular: S1, S2 Abdomen: Soft Neuro Exam: Alert Extremities: Other (EDEMA L) Skin: Warm Labs Laboratory Tests Test 07/31/18 07:16 07/31/18 13:32 07/31/18 16:34 07/31/18 20:52 Glucose (Fingerstick) 70 mg/dL (70-99) 119 mg/dL (70-99) 130 mg/dL (70-99) 360 mg/dL (70-99) Test 08/01/18 05:00 08/01/18 07:14 08/01/18 11:22 08/01/18 14:16 White Blood Count 14.3 x10^3/uL (4.0-11.0) Red Blood Count 2.65 x10^6/uL (3.50-5.40) Hemoglobin 9.2 g/dL (12.0-15.5) Hematocrit 28.2 % (36.0-47.0) Mean Corpuscular Volume 107 fL (79-100) Mean Corpuscular Hemoglobin 35 pg (25-35) Mean Corpuscular Hemoglobin Concent 33 g/dL (31-37) Red Cell Distribution Width 20.2 % (11.5-14.5) Platelet Count 122 x10^3/uL (140-400) Neutrophils (%) (Auto) 88 % (31-73) Lymphocytes (%) (Auto) 4 % (24-48) Monocytes (%) (Auto) 8 % (0-9) Eosinophils (%) (Auto) 0 % (0-3) Basophils (%) (Auto) 1 % (0-3) Neutrophils # (Auto) 12.5 x10^3uL (1.8-7.7) Lymphocytes # (Auto) 0.5 x10^3/uL (1.0-4.8) Monocytes # (Auto) 1.2 x10^3/uL (0.0-1.1) Eosinophils # (Auto) 0.0 x10^3/uL (0.0-0.7) Basophils # (Auto) 0.1 x10^3/uL (0.0-0.2) Prothrombin Time 15.7 SEC (11.7-14.0) Prothromb Time International Ratio 1.3 (0.8-1.1) Sodium Level 137 mmol/L (136-145) Potassium Level 4.7 mmol/L (3.5-5.1) Chloride Level 98 mmol/L (98-107) Carbon Dioxide Level 29 mmol/L (21-32) Anion Gap 10 (6-14) Blood Urea Nitrogen 28 mg/dL (7-20) Creatinine 2.7 mg/dL (0.6-1.0) Estimated GFR (Cockcroft-Gault) 16.7 Glucose Level 195 mg/dL (70-99) Calcium Level 7.7 mg/dL (8.5-10.1) Phosphorus Level 2.9 mg/dL (2.6-4.7) Albumin 2.8 g/dL (3.4-5.0) Glucose (Fingerstick) 242 mg/dL (70-99) 224 mg/dL (70-99) 230 mg/dL (70-99) Test 08/01/18 17:20 08/01/18 20:32 08/02/18 05:00 08/02/18 06:08 Glucose (Fingerstick) 335 mg/dL (70-99) 216 mg/dL (70-99) 50 mg/dL (70-99) White Blood Count 13.3 x10^3/uL (4.0-11.0) Red Blood Count 2.71 x10^6/uL (3.50-5.40) Hemoglobin 9.5 g/dL (12.0-15.5) Hematocrit 29.0 % (36.0-47.0) Mean Corpuscular Volume 107 fL (79-100) Mean Corpuscular Hemoglobin 35 pg (25-35) Mean Corpuscular Hemoglobin Concent 33 g/dL (31-37) Red Cell Distribution Width 20.2 % (11.5-14.5) Platelet Count 120 x10^3/uL (140-400) Neutrophils (%) (Auto) 76 % (31-73) Lymphocytes (%) (Auto) 14 % (24-48) Monocytes (%) (Auto) 9 % (0-9) Eosinophils (%) (Auto) 1 % (0-3) Basophils (%) (Auto) 0 % (0-3) Neutrophils # (Auto) 10.1 x10^3uL (1.8-7.7) Lymphocytes # (Auto) 1.9 x10^3/uL (1.0-4.8) Monocytes # (Auto) 1.2 x10^3/uL (0.0-1.1) Eosinophils # (Auto) 0.1 x10^3/uL (0.0-0.7) Basophils # (Auto) 0.0 x10^3/uL (0.0-0.2) Prothrombin Time 15.0 SEC (11.7-14.0) Prothromb Time International Ratio 1.2 (0.8-1.1) Sodium Level 138 mmol/L (136-145) Potassium Level 4.6 mmol/L (3.5-5.1) Chloride Level 99 mmol/L (98-107) Carbon Dioxide Level 31 mmol/L (21-32) Anion Gap 8 (6-14) Blood Urea Nitrogen 43 mg/dL (7-20) Creatinine 3.5 mg/dL (0.6-1.0) Estimated GFR (Cockcroft-Gault) 12.4 Glucose Level 56 mg/dL (70-99) Calcium Level 7.7 mg/dL (8.5-10.1) Phosphorus Level 2.6 mg/dL (2.6-4.7) Albumin 2.9 g/dL (3.4-5.0) Test 08/02/18 06:33 Glucose (Fingerstick) 101 mg/dL (70-99) Laboratory Tests Test 08/01/18 07:14 08/01/18 11:22 08/01/18 14:16 08/01/18 17:20 Glucose (Fingerstick) 242 mg/dL (70-99) 224 mg/dL (70-99) 230 mg/dL (70-99) 335 mg/dL (70-99) Test 08/01/18 20:32 08/02/18 05:00 08/02/18 06:08 08/02/18 06:33 Glucose (Fingerstick) 216 mg/dL (70-99) 50 mg/dL (70-99) 101 mg/dL (70-99) White Blood Count 13.3 x10^3/uL (4.0-11.0) Red Blood Count 2.71 x10^6/uL (3.50-5.40) Hemoglobin 9.5 g/dL (12.0-15.5) Hematocrit 29.0 % (36.0-47.0) Mean Corpuscular Volume 107 fL (79-100) Mean Corpuscular Hemoglobin 35 pg (25-35) Mean Corpuscular Hemoglobin Concent 33 g/dL (31-37) Red Cell Distribution Width 20.2 % (11.5-14.5) Platelet Count 120 x10^3/uL (140-400) Neutrophils (%) (Auto) 76 % (31-73) Lymphocytes (%) (Auto) 14 % (24-48) Monocytes (%) (Auto) 9 % (0-9) Eosinophils (%) (Auto) 1 % (0-3) Basophils (%) (Auto) 0 % (0-3) Neutrophils # (Auto) 10.1 x10^3uL (1.8-7.7) Lymphocytes # (Auto) 1.9 x10^3/uL (1.0-4.8) Monocytes # (Auto) 1.2 x10^3/uL (0.0-1.1) Eosinophils # (Auto) 0.1 x10^3/uL (0.0-0.7) Basophils # (Auto) 0.0 x10^3/uL (0.0-0.2) Prothrombin Time 15.0 SEC (11.7-14.0) Prothromb Time International Ratio 1.2 (0.8-1.1) Sodium Level 138 mmol/L (136-145) Potassium Level 4.6 mmol/L (3.5-5.1) Chloride Level 99 mmol/L (98-107) Carbon Dioxide Level 31 mmol/L (21-32) Anion Gap 8 (6-14) Blood Urea Nitrogen 43 mg/dL (7-20) Creatinine 3.5 mg/dL (0.6-1.0) Estimated GFR (Cockcroft-Gault) 12.4 Glucose Level 56 mg/dL (70-99) Calcium Level 7.7 mg/dL (8.5-10.1) Phosphorus Level 2.6 mg/dL (2.6-4.7) Albumin 2.9 g/dL (3.4-5.0) Medications Active Scripts Medications Dose Route/Sig Max Daily Dose Days Date Category Dose Instructions Senna (Sennosides) 8.6 Mg Tablet 8.6 Mg PO DAILY 07/19/18 Reported Novolog Flexpen (Insulin Aspart) 100 Unit/1 Ml Insuln.pen 1 Unit SQ TIDAC 07/19/18 Reported Miralax (Polyethylene Glycol 3350) 17 Gm Powd.pack 1 Packet PO BID 07/19/18 Reported Milk Of Magnesia (Magnesium Hydroxide) 400 Mg/5 Ml Oral.susp 30 Ml PO PRN DAILY 07/19/18 Reported Duoneb 0.5-3(2.5) Mg/3 Ml (Albuterol/Ipratropium) 3 Ml Ampul.neb 3 Ml NEB TID 07/19/18 Reported Fleet Enema (Na Phos,M-B/Na Phos,Di-Ba) 133 Ml Enema 1 Each RC PRN DAILY PRN 07/19/18 Reported Dulcolax (Bisacodyl) 10 Mg Supp.rect 10 Mg RC PRN DAILY PRN 07/19/18 Reported Docusate Sodium 100 Mg Capsule 1 Cap PO BID 07/19/18 Reported Carvedilol (Carvedilol) 12.5 Mg Tablet 12.5 Mg PO BIDWMEALS 07/19/18 Reported Levemir (Insulin Detemir) 100 Unit/1 Ml Vial 5 Unit SQ QHS 30 07/15/18 Rx Hold for < 140mg/dL Acetaminophen 500 Mg Tablet 500 Mg PO PRN Q6HRS PRN 30 07/14/18 Rx Aspirin 325 Mg Tablet 1 Tab PO DAILY 04/16/18 Rx Protonix (Pantoprazole Sodium) 20 Mg Tablet.dr 40 Mg PO DAILY 11/06/17 Reported Voltaren (Diclofenac Sodium) 100 Gm Gel..gram. 1 Gm TP BID 11/06/17 Reported Zofran Odt (Ondansetron) 4 Mg Tab.rapdis 4 Mg PO Q6HRS PRN 10/30/17 Reported Sensipar (Cinacalcet Hcl) 30 Mg Tablet 1 Tab PO DAILY 02/04/17 Reported Renvela (Sevelamer Carbonate) 2.4 Gm Powd.pack 2.4 Gm PO TIDWMEALS 02/04/17 Reported Lumigan (Bimatoprost) 2.5 Ml Drops 1 Drop EACHEYE QHS 02/04/17 Reported Calcitriol 0.25 Mcg Capsule 1 Cap PO DAILY 01/18/17 Reported Nephro-Roland Tablet (Folic Acid/Vitamin B Comp W-C) 0.8 Mg Tablet 1 Tab PO DAILYBFRSUP 11/26/15 Reported Vitamin D (Cholecalciferol (Vitamin D3)) 2,000 Unit Capsule 1 Cap PO DAILY 11/26/15 Reported Impression . IMPRESSION: 1. Dyspnea with cough and mild bronchospasm POA, likely related to viral pneumonitis, triggering bronchospasm POA. She may have adult onset reactive airway disease. resolved now 2. Recent abnormal CT chest on 07/11 suggesting upper lobe viral pneumonitis. She has some ground glass infiltrates at that time. 3. End-stage renal disease, on hemodialysis. 4. Underlying obesity. 5. Chronic hypoxic respiratory failure, on home oxygen 2 liters. 6 HYPOTENSION IMPROVED 7. LEONIE EXT BRACHIAL CLOT SEE BELOW PICC REMOVED 07/25 CENTRAL LINE 07/25 Impression: Successful ultrasound-guided placement of right internal jugular triple-lumen central venous catheter Plan . RESP STATUS IMPROVED AWAITING LTAC EVAL/ APPROVAL CONTINUE THE SAME STARTED ON HEPARIN/ COUMADIN FOR BRACHIAL CLOT/ NEEDS SHORT TERM AC ( 2-4 WEEKS) / REPEAT DOPPLERS IN 2 WEEKS) prednisone 20 mg daily BD discussed w rn, pt CLARITA GRANADOS MD Aug 02, 2018 07:18
[2018-08-02 07:25] VITALS: BP 106/44
--- NOTE | 2018-08-02 07:55 | PDOC ---
PROGRESS NOTES Chief Complaint Chief Complaint SOA, fluid overload and treating HCAP ESRD on dialysis-did not finish dialysis Existing AV fistula Hypotension, resolved now hypertension Anemia of chronic disease severe Generalized weakness SNU resident Diabetes type 2 on low-dose insulin uncontrolled// inc lantus to 14 units sq hs symptomatic with lethargy hypotension dysphagia, malnutrition MARKED DEBILITY, WEAKNESS Penetration of thin liquids w/ large drinks via cup, chin tuck and straw drinking were observed. Decreasing bolus size, keeping head in neutral position and alternating or utilizing a dry swallow were all effective strategies. No aspiration was observed during this evaluation. Occlusive thrombus in one brachial vein in the left upper arm surrounding an indwelling PICC line, on heparin for clot Dysphagia II diet w/ thin liquids, AGREE WITH LTAC/ PLANS REMAINS TO HAVE MARKED DECLINES SLOW TO IMPROVE with variability day to day, High risk of additional complications and readmission History of Present Illness History of Present Illness 87-year-old female //admitted from 07/10 thru 07/15, discharge 4 days [employer] , 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 Bleeding from HD fistula, heparin level high, INR was up but has not been on coumadin which was started last night. Patchy ground glass opacification of the lungs. Dysphagia and aspiration 07/30: She is not speaking much today. her AV fistula started spurting blood again last night. She is still very weak and dejected today. Held heparin and coumadin for AV fistula bleeding > 24 hours. 07/31-08/01: AV fistula bleeding stopped, vascular recommends not reinitiating coumadin or heparin. Tolerated dialysis well 07/31 This morning she is still in poor spirits. Denies CP, has shortness of breath and c/o dysphagia, encouraged to sit up in bed. AV fistula bleeding seems to have stopped. She is more weak today, requiring some assistance even with eating. She has been eating a lot of ice cream the past few days, glycemic control has been more difficult. Right arm very bruised. Dialysis today Plan: MOD-SEVERE protein-caloric malnutrition - on PPN, eating 50% and more from her meals, may benefit from backing off PPN as she is getting fluid overloaded. She may need to get back on PPN/TPN based on not eating again today. LTAC may actually be most appropriate for her. US RUE: 1. Patent AV fistula in the right upper arm containing a small bit of thrombus. 2. Small hypoechoic process adjacent to the fistula at the lateral antecubital fossa level, most likely representing a small hematoma. Vitals Vitals Vital Signs Date Time Temp Pulse Resp B/P (MAP) Pulse Ox O2 Delivery O2 Flow Rate FiO2 08/02/18 07:25 97.4 71 18 106/44 (64) 95 Room Air 97.4 Physical Exam Physical Exam GENERAL: Propped up in bed, awake, Looks well HEENT: anicteric getting breathing treatment LUNGS: Mild congestion - bilat HEART: S1, S2. ABDOMEN: , soft and nontender. EXTREMITIES: No edema, no cyanosis. SKIN: No generalized rash. Chronic skin changes present in both lower extremities. HAND COPER: Awake, appropriate RIJ (07/25) without signs of any complications AVF bandaged/bleeding General: Alert, No acute distress Heart: Regular rate Lungs: Crackles (less crackles) Abdomen: Other (obese) Extremities: Other (RUE: Palpable thrill in fistula, no obvious aneurysmal dilatiation, mild swelling in forearm and hand, severe ecchymosis, no active bleeding. Motor function and sensation intact. LLE: Mild swelling in forearm and hand, palpable brahial pulse. Motor function and sensation intact.) Skin: Other (as above, no open lesions.) Labs LABS Laboratory Tests Test 08/01/18 11:22 08/01/18 14:16 08/01/18 17:20 08/01/18 20:32 Glucose (Fingerstick) 224 mg/dL (70-99) 230 mg/dL (70-99) 335 mg/dL (70-99) 216 mg/dL (70-99) Test 08/02/18 05:00 08/02/18 06:08 08/02/18 06:33 08/02/18 07:04 White Blood Count 13.3 x10^3/uL (4.0-11.0) Red Blood Count 2.71 x10^6/uL (3.50-5.40) Hemoglobin 9.5 g/dL (12.0-15.5) Hematocrit 29.0 % (36.0-47.0) Mean Corpuscular Volume 107 fL (79-100) Mean Corpuscular Hemoglobin 35 pg (25-35) Mean Corpuscular Hemoglobin Concent 33 g/dL (31-37) Red Cell Distribution Width 20.2 % (11.5-14.5) Platelet Count 120 x10^3/uL (140-400) Neutrophils (%) (Auto) 76 % (31-73) Lymphocytes (%) (Auto) 14 % (24-48) Monocytes (%) (Auto) 9 % (0-9) Eosinophils (%) (Auto) 1 % (0-3) Basophils (%) (Auto) 0 % (0-3) Neutrophils # (Auto) 10.1 x10^3uL (1.8-7.7) Lymphocytes # (Auto) 1.9 x10^3/uL (1.0-4.8) Monocytes # (Auto) 1.2 x10^3/uL (0.0-1.1) Eosinophils # (Auto) 0.1 x10^3/uL (0.0-0.7) Basophils # (Auto) 0.0 x10^3/uL (0.0-0.2) Prothrombin Time 15.0 SEC (11.7-14.0) Prothromb Time International Ratio 1.2 (0.8-1.1) Sodium Level 138 mmol/L (136-145) Potassium Level 4.6 mmol/L (3.5-5.1) Chloride Level 99 mmol/L (98-107) Carbon Dioxide Level 31 mmol/L (21-32) Anion Gap 8 (6-14) Blood Urea Nitrogen 43 mg/dL (7-20) Creatinine 3.5 mg/dL (0.6-1.0) Estimated GFR (Cockcroft-Gault) 12.4 Glucose Level 56 mg/dL (70-99) Calcium Level 7.7 mg/dL (8.5-10.1) Phosphorus Level 2.6 mg/dL (2.6-4.7) Albumin 2.9 g/dL (3.4-5.0) Glucose (Fingerstick) 50 mg/dL (70-99) 101 mg/dL (70-99) 99 mg/dL (70-99) Assessment and Plan Assessmemt and Plan Problems Medical Problems: (1) Congestive heart failure Status: Acute Comment Review of Relevant I have reviewed the following items smith (where applicable) has been applied. Labs Laboratory Tests Test 07/31/18 13:32 07/31/18 16:34 07/31/18 20:52 08/01/18 05:00 Glucose (Fingerstick) 119 mg/dL (70-99) 130 mg/dL (70-99) 360 mg/dL (70-99) White Blood Count 14.3 x10^3/uL (4.0-11.0) Red Blood Count 2.65 x10^6/uL (3.50-5.40) Hemoglobin 9.2 g/dL (12.0-15.5) Hematocrit 28.2 % (36.0-47.0) Mean Corpuscular Volume 107 fL (79-100) Mean Corpuscular Hemoglobin 35 pg (25-35) Mean Corpuscular Hemoglobin Concent 33 g/dL (31-37) Red Cell Distribution Width 20.2 % (11.5-14.5) Platelet Count 122 x10^3/uL (140-400) Neutrophils (%) (Auto) 88 % (31-73) Lymphocytes (%) (Auto) 4 % (24-48) Monocytes (%) (Auto) 8 % (0-9) Eosinophils (%) (Auto) 0 % (0-3) Basophils (%) (Auto) 1 % (0-3) Neutrophils # (Auto) 12.5 x10^3uL (1.8-7.7) Lymphocytes # (Auto) 0.5 x10^3/uL (1.0-4.8) Monocytes # (Auto) 1.2 x10^3/uL (0.0-1.1) Eosinophils # (Auto) 0.0 x10^3/uL (0.0-0.7) Basophils # (Auto) 0.1 x10^3/uL (0.0-0.2) Prothrombin Time 15.7 SEC (11.7-14.0) Prothromb Time International Ratio 1.3 (0.8-1.1) Sodium Level 137 mmol/L (136-145) Potassium Level 4.7 mmol/L (3.5-5.1) Chloride Level 98 mmol/L (98-107) Carbon Dioxide Level 29 mmol/L (21-32) Anion Gap 10 (6-14) Blood Urea Nitrogen 28 mg/dL (7-20) Creatinine 2.7 mg/dL (0.6-1.0) Estimated GFR (Cockcroft-Gault) 16.7 Glucose Level 195 mg/dL (70-99) Calcium Level 7.7 mg/dL (8.5-10.1) Phosphorus Level 2.9 mg/dL (2.6-4.7) Albumin 2.8 g/dL (3.4-5.0) Test 08/01/18 07:14 08/01/18 11:22 08/01/18 14:16 08/01/18 17:20 Glucose (Fingerstick) 242 mg/dL (70-99) 224 mg/dL (70-99) 230 mg/dL (70-99) 335 mg/dL (70-99) Test 08/01/18 20:32 08/02/18 05:00 08/02/18 06:08 08/02/18 06:33 Glucose (Fingerstick) 216 mg/dL (70-99) 50 mg/dL (70-99) 101 mg/dL (70-99) White Blood Count 13.3 x10^3/uL (4.0-11.0) Red Blood Count 2.71 x10^6/uL (3.50-5.40) Hemoglobin 9.5 g/dL (12.0-15.5) Hematocrit 29.0 % (36.0-47.0) Mean Corpuscular Volume 107 fL (79-100) Mean Corpuscular Hemoglobin 35 pg (25-35) Mean Corpuscular Hemoglobin Concent 33 g/dL (31-37) Red Cell Distribution Width 20.2 % (11.5-14.5) Platelet Count 120 x10^3/uL (140-400) Neutrophils (%) (Auto) 76 % (31-73) Lymphocytes (%) (Auto) 14 % (24-48) Monocytes (%) (Auto) 9 % (0-9) Eosinophils (%) (Auto) 1 % (0-3) Basophils (%) (Auto) 0 % (0-3) Neutrophils # (Auto) 10.1 x10^3uL (1.8-7.7) Lymphocytes # (Auto) 1.9 x10^3/uL (1.0-4.8) Monocytes # (Auto) 1.2 x10^3/uL (0.0-1.1) Eosinophils # (Auto) 0.1 x10^3/uL (0.0-0.7) Basophils # (Auto) 0.0 x10^3/uL (0.0-0.2) Prothrombin Time 15.0 SEC (11.7-14.0) Prothromb Time International Ratio 1.2 (0.8-1.1) Sodium Level 138 mmol/L (136-145) Potassium Level 4.6 mmol/L (3.5-5.1) Chloride Level 99 mmol/L (98-107) Carbon Dioxide Level 31 mmol/L (21-32) Anion Gap 8 (6-14) Blood Urea Nitrogen 43 mg/dL (7-20) Creatinine 3.5 mg/dL (0.6-1.0) Estimated GFR (Cockcroft-Gault) 12.4 Glucose Level 56 mg/dL (70-99) Calcium Level 7.7 mg/dL (8.5-10.1) Phosphorus Level 2.6 mg/dL (2.6-4.7) Albumin 2.9 g/dL (3.4-5.0) Test 08/02/18 07:04 Glucose (Fingerstick) 99 mg/dL (70-99) Laboratory Tests Test 08/01/18 11:22 08/01/18 14:16 08/01/18 17:20 08/01/18 20:32 Glucose (Fingerstick) 224 mg/dL (70-99) 230 mg/dL (70-99) 335 mg/dL (70-99) 216 mg/dL (70-99) Test 08/02/18 05:00 08/02/18 06:08 08/02/18 06:33 08/02/18 07:04 White Blood Count 13.3 x10^3/uL (4.0-11.0) Red Blood Count 2.71 x10^6/uL (3.50-5.40) Hemoglobin 9.5 g/dL (12.0-15.5) Hematocrit 29.0 % (36.0-47.0) Mean Corpuscular Volume 107 fL (79-100) Mean Corpuscular Hemoglobin 35 pg (25-35) Mean Corpuscular Hemoglobin Concent 33 g/dL (31-37) Red Cell Distribution Width 20.2 % (11.5-14.5) Platelet Count 120 x10^3/uL (140-400) Neutrophils (%) (Auto) 76 % (31-73) Lymphocytes (%) (Auto) 14 % (24-48) Monocytes (%) (Auto) 9 % (0-9) Eosinophils (%) (Auto) 1 % (0-3) Basophils (%) (Auto) 0 % (0-3) Neutrophils # (Auto) 10.1 x10^3uL (1.8-7.7) Lymphocytes # (Auto) 1.9 x10^3/uL (1.0-4.8) Monocytes # (Auto) 1.2 x10^3/uL (0.0-1.1) Eosinophils # (Auto) 0.1 x10^3/uL (0.0-0.7) Basophils # (Auto) 0.0 x10^3/uL (0.0-0.2) Prothrombin Time 15.0 SEC (11.7-14.0) Prothromb Time International Ratio 1.2 (0.8-1.1) Sodium Level 138 mmol/L (136-145) Potassium Level 4.6 mmol/L (3.5-5.1) Chloride Level 99 mmol/L (98-107) Carbon Dioxide Level 31 mmol/L (21-32) Anion Gap 8 (6-14) Blood Urea Nitrogen 43 mg/dL (7-20) Creatinine 3.5 mg/dL (0.6-1.0) Estimated GFR (Cockcroft-Gault) 12.4 Glucose Level 56 mg/dL (70-99) Calcium Level 7.7 mg/dL (8.5-10.1) Phosphorus Level 2.6 mg/dL (2.6-4.7) Albumin 2.9 g/dL (3.4-5.0) Glucose (Fingerstick) 50 mg/dL (70-99) 101 mg/dL (70-99) 99 mg/dL (70-99) Medications Current Medications Albuterol/ Ipratropium (Duoneb) 3 ml 1X ONCE NEB Last administered on at 12:57; Start 07/19/18 at 12:45; Stop 07/19/18 at 12:46; Status DC Ondansetron HCl (Zofran) 4 mg PRN Q8HRS PRN IV NAUSEA/VOMITING; Start 07/19/18 at 14:30; Stop 07/20/18 at 14:29; Status DC Acetaminophen (Tylenol) 650 mg PRN Q4HRS PRN PO FEVER; Start 07/19/18 at 14:30 ; Stop 07/20/18 at 08:37; Status DC Nitroglycerin (Nitrostat) 0.4 mg PRN Q5MIN PRN SL CHEST PAIN; Start 07/19/18 at 14:30; Stop 07/20/18 at 14:29; Status DC Albuterol/ Ipratropium (Duoneb) 3 ml RTQID NEB ; Start 07/19/18 at 16:00; Stop 07/20/18 at 15:59; Status Cancel Aspirin (Tracee Aspirin) 325 mg DAILY PO Last administered on 08/01/18 08:56; Start 07/19/18 at 15:00 Carvedilol (Coreg) 3.125 mg BIDWMEALS PO ; Start 07/19/18 at 17:00; Stop at 19:42; Status DC Cinacalcet (Sensipar) 30 mg DAILY PO Last administered on 08/01/18 08:56; Start 07/19/18 at 15:00 Diclofenac Sodium (Voltaren) 1 grisel BID TP Last administered on 08/01/18 20:39; Start 07/19/18 at 21:00 Fentanyl (Duragesic 12mcg/ Hr Patch) 1 patch Q3DAYS TD ; Start 07/19/18 at 15:00 ; Stop 07/19/18 at 19:42; Status DC Vitamin B Complex/ Vitamin C (Bela-Roland) 1 tab DAILYBFRSUP PO Last administered on 08/01/18 17:42; Start 07/19/18 at 17:00 Ondansetron HCl (Zofran Odt) 4 mg PRN Q6HRS PRN PO NAUSEA/VOMITING; Start 07/19 at 14:45 Sevelamer Carbonate (Renvela) 2.4 gm TIDWMEALS PO Last administered on 08:56; Start 07/19/18 at 17:00 Acetaminophen (Tylenol) 500 mg PRN Q6HRS PRN PO MILD PAIN / TEMP; Start at 14:45 Latanoprost (Xalatan) 1 drop QHS OU Last administered on 08/01/18 20:31; Start 07/19/18 at 21:00 Calcitriol (Rocaltrol) 0.25 mcg DAILY PO Last administered on 08/01/18 08:56; Start 07/20/18 at 09:00 Vitamin D (Vitamin D3) 1,000 unit DAILY PO Last administered on 08/01/18 08:56 ; Start 07/20/18 at 09:00 Hydromorphone HCl (Dilaudid) 2 mg PRN Q8HRS PRN PO MODERATE PAIN, SEVERE PAIN; Start 07/19/18 at 15:00; Stop 07/20/18 at 09:31; Status DC Insulin Glargine (Lantus) 5 units QHS SQ Last administered on 07/26/18 21:46; Start 07/19/18 at 21:00; Stop 07/27/18 at 10:00; Status DC Non-Formulary Medication (Latanoprost/Pf (Latanoprost 0.005% Eye Drop)) 7.5 ml QHS OP ; Start 07/19/18 at 21:00; Status UNV Pantoprazole Sodium (Protonix) 40 mg DAILYAC PO Last administered on 07/24/18 11:17; Start 07/20/18 at 07:30; Stop 07/27/18 at 09:10; Status DC Piperacillin Sod/ Tazobactam Sod (Zosyn Per Pharmacy) 1 each PRN DAILY PRN MC SEE COMMENTS; Start 07/19/18 at 14:45; Stop 07/24/18 at 11:11; Status DC Albuterol/ Ipratropium (Duoneb) 3 ml RTQID NEB Last administered on 08/01/18 19 :58; Start 07/19/18 at 16:00 Guaifenesin (Robitussin Dm) 10 ml QID PO Last administered on 08/01/18 20:30; Start 07/19/18 at 17:00 Temazepam (Restoril) 7.5 mg PRN QHS PRN PO INSOMNIA Last administered on 20:42; Start 07/19/18 at 14:45 Insulin Human Lispro (HumaLOG) 0-7 UNITS TIDWMEALS SQ Last administered on 17:53; Start 07/19/18 at 17:00 Dextrose (Dextrose 50%-Water Syringe) 12.5 gm PRN Q15MIN PRN IV SEE COMMENTS Last administered on 08/02/18 06:18; Start 07/19/18 at 14:45 Piperacillin Sod/ Tazobactam Sod 2.25 gm/Sodium Chloride 50 ml @ 100 mls/hr Q8H IV Last administered on 07/24/18 00:10; Start 07/19/18 at 16:00; Stop at 08:08; Status DC Furosemide (Lasix) 40 mg 1X ONCE IVP Last administered on 07/19/18 14:52; Start 07/19/18 at 14:45; Stop 07/19/18 at 14:52; Status DC Docusate Sodium (Colace) 100 mg BID PO Last administered on 08/01/18 08:56; Start 07/19/18 at 21:00 Magnesium Hydroxide (Milk Of Magnesia) 2,400 mg PRN DAILY PRN PO CONSTIPATION; Start 07/19/18 at 19:45 Sodium Monofluorophosphate (Fleet Adult) 133 ml PRN DAILY PRN RC CONSTIPATION; Start 07/19/18 at 19:45; Stop 07/22/18 at 12:17; Status DC Bisacodyl (Dulcolax Supp) 10 mg PRN DAILY PRN MA CONSTIPATION 1ST CHOICE; Start 07/19/18 at 19:45 Polyethylene Glycol (miraLAX PACKET) 17 gm BID PO Last administered on 20:52; Start 07/19/18 at 21:00 Sennosides (Senna) 8.6 mg DAILY PO Last administered on 07/31/18 09:47; Start 07/20/18 at 09:00 Lactobacillus Rhamnosus (Culturelle) 1 cap BID PO Last administered on 20:30; Start 07/20/18 at 21:00 Methylprednisolone Sodium Succinate (SOLU-Medrol 40MG VIAL) 40 mg Q8HRS IV Last administered on 08/01/18 06:05; Start 07/20/18 at 14:00; Stop 08/01/18 at 09 :32; Status DC Albumin Human 250 ml @ 62.5 mls/hr PRN Q6HRS PRN IV for MAP < 65 Last administered on 07/21/18at 20:45; Start 07/20/18 at 09:45 Magnesium Sulfate 50 ml @ 25 mls/hr PRN DAILY PRN IV for Mag < 1.7 on am labs; Start 07/20/18 at 09:45 Dopamine HCl/ Dextrose 250 ml @ 6.124 mls/ hr CONT PRN IV SEE I/O RECORD Last administered on 07/24/18at 20:37; Start 07/20/18 at 12:00; Stop 07/26/18 at 14:13 ; Status DC Sodium Chloride 1,000 ml @ 1,000 mls/hr Q1H PRN IV hypotension; Start 07/21/18 at 13:00; Stop 07/21/18 at 18:59; Status DC Sodium Chloride 1,000 ml @ 400 mls/hr Q2H30M PRN IV PATENCY; Start 07/21/18 at 13:00; Stop 07/22/18 at 00:59; Status DC Info (PHARMACY MONITORING -- do not chart) 1 each PRN DAILY PRN MC SEE COMMENTS ; Start 07/21/18 at 13:30; Status UNV Info (PHARMACY MONITORING -- do not chart) 1 each PRN DAILY PRN MC SEE COMMENTS ; Start 07/21/18 at 13:30; Stop 07/24/18 at 07:10; Status DC Albumin Human 100 ml @ 100 mls/hr 1X ONCE IV Last administered on 07/21/18at 14:00; Start 07/21/18 at 13:30; Stop 07/21/18 at 14:29; Status DC Sodium Chloride 500 ml @ 500 mls/hr 1X ONCE IV Last administered on at 11:14; Start 07/22/18 at 11:15; Stop 07/22/18 at 12:14; Status DC Digoxin (Lanoxin) 125 mcg QMWF@1600 PO ; Start 07/23/18 at 16:00; Stop 07/23/18 at 16:00; Status DC Digoxin (Lanoxin) 125 mcg 1X ONCE PO Last administered on 07/22/18at 12:26; Start 07/22/18 at 12:00; Stop 07/22/18 at 12:01; Status DC Midodrine (Proamatine) 2.5 mg [id number] PO Last administered on 08/02/18at 06:10; Start 07/22/18 at 13:00 Digoxin (Lanoxin) 125 mcg QTUTHSA PO Last administered on 07/31/18at 18:14; Start 07/24/18 at 16:00 Sodium Chloride 500 ml @ 500 mls/hr 1X ONCE IV Last administered on at 15:42; Start 07/23/18 at 15:00; Stop 07/23/18 at 15:59; Status DC Sodium Chloride 1,000 ml @ 1,000 mls/hr Q1H PRN IV hypotension; Start 07/24/18 at 06:59; Stop 07/24/18 at 12:58; Status DC Albumin Human 200 ml @ 200 mls/hr 1X PRN PRN IV Hypotension Last administered on 07/24/18at 08:09; Start 07/24/18 at 07:00; Stop 07/24/18 at 12:59; Status DC Sodium Chloride 1,000 ml @ 400 mls/hr Q2H30M PRN IV PATENCY; Start 07/24/18 at 06:59; Stop 07/24/18 at 18:58; Status DC Info (PHARMACY MONITORING -- do not chart) 1 each PRN DAILY PRN MC SEE COMMENTS ; Start 07/24/18 at 07:00; Stop 07/25/18 at 11:17; Status DC Info (PHARMACY MONITORING -- do not chart) 1 each PRN DAILY PRN MC SEE COMMENTS ; Start 07/24/18 at 07:00; Status UNV Amoxicillin/ Clavulanate Potassium (Augmentin 500/ 125mg) 1 tab BID PO Last administered on 07/24/18at 11:16; Start 07/24/18 at 09:00; Stop 07/25/18 at 09:21 ; Status DC Amino Acids/ Glycerin/ Electrolytes 1,000 ml @ 50 mls/hr Q20H IV Last administered on 07/28/18at 21:12; Start 07/24/18 at 17:00; Stop 07/29/18 at 08:56; Status DC Heparin Sodium/ Dextrose 500 ml @ 0 mls/hr CONT PRN IV SEE I/O RECORD; Start at 19:30; Status Cancel Heparin Sodium (Porcine) (Heparin Sodium) 6,850 unit 1X ONCE IV Last administered on 07/24/18at 19:38; Start 07/24/18 at 19:30; Stop 07/24/18 at 19:33 ; Status DC Heparin Sodium/ Dextrose 500 ml @ 0 mls/hr CONT PRN IV SEE I/O RECORD; Start at 19:30; Status UNV Heparin Sodium (Porcine) (Heparin Sodium) 2,550 unit PRN Q6HRS PRN IV FOR UFH LEVEL LESS THAN 0.2; Start 07/24/18 at 19:30 Heparin Sodium (Porcine) (Heparin Sodium) 1,300 unit PRN Q6HRS PRN IV FOR UFH LEVEL 0.2 - 0.29 Last administered on 07/25/18at 23:25; Start 07/24/18 at 19:30 Heparin Sodium/ Dextrose 500 ml @ 0 mls/hr CONT PRN IV SEE I/O RECORD Last administered on 07/30/18at 04:32; Start 07/24/18 at 19:45 Sodium Chloride 1,000 ml @ 1,000 mls/hr Q1H PRN IV hypotension; Start 07/25/18 at 08:22; Stop 07/25/18 at 14:21; Status DC Albumin Human 200 ml @ 200 mls/hr 1X ONCE IV Last administered on 07/25/18at 08:49; Start 07/25/18 at 08:30; Stop 07/25/18 at 09:29; Status DC Diphenhydramine HCl (Benadryl) 25 mg 1X PRN PRN IV ITCHING; Start 07/25/18 at 08:30; Stop 07/26/18 at 08:29; Status DC Diphenhydramine HCl (Benadryl) 25 mg 1X PRN PRN IV ITCHING; Start 07/25/18 at 08:30; Stop 07/26/18 at 08:29; Status DC Sodium Chloride 1,000 ml @ 400 mls/hr Q2H30M PRN IV PATENCY; Start 07/25/18 at 08:22; Stop 07/25/18 at 20:21; Status DC Info (PHARMACY MONITORING -- do not chart) 1 each PRN DAILY PRN MC SEE COMMENTS ; Start 07/25/18 at 08:30; Stop 07/26/18 at 14:10; Status DC Piperacillin Sod/ Tazobactam Sod 2.25 gm/Sodium Chloride 50 ml @ 100 mls/hr Q8HRS IV Last administered on 07/28/18at 05:07; Start 07/25/18 at 09:30; Stop 07/28/18 at 09:31; Status DC Info (Anti-Coagulation Monitoring By Pharmacy) 1 each PRN DAILY PRN MC SEE COMMENTS Last administered on 07/31/18at 15:00; Start 07/25/18 at 11:30 Info (PHARMACY MONITORING -- do not chart) 1 each PRN DAILY PRN MC SEE COMMENTS ; Start 07/26/18 at 08:15; Status Cancel Info (PHARMACY MONITORING -- do not chart) 1 each PRN DAILY PRN MC SEE COMMENTS ; Start 07/26/18 at 08:15; Stop 07/26/18 at 08:17; Status DC Barium Sulfate (Varibar Thin Liquid Apple) 148 gm 1X ONCE PO Last administered on 07/26/18at 13:30; Start 07/26/18 at 13:30; Stop 07/26/18 at 13:31 ; Status DC Pantoprazole Sodium (PROTONIX VIAL for IV PUSH) 40 mg DAILYAC IVP Last administered on 07/28/18at 07:54; Start 07/27/18 at 11:30; Stop 07/28/18 at 10:43; Status DC Insulin Glargine (Lantus) 9 units QHS SQ Last administered on 07/27/18at 20:52; Start 07/27/18 at 21:00; Stop 07/28/18 at 14:03; Status DC Insulin Human Lispro (HumaLOG) 4 units TIDWMEALS SQ Last administered on at 17:54; Start 07/27/18 at 12:00 Pantoprazole Sodium (Protonix) 40 mg DAILYAC PO Last administered on 08/02/18at 06:10; Start 07/29/18 at 07:30 Insulin Glargine (Lantus) 14 units QHS SQ Last administered on 08/01/18at 20:39; Start 07/28/18 at 21:00 Warfarin Sodium (Coumadin) 2.5 mg DAILY16 PO ; Start 07/29/18 at 16:00; Stop 07/29 at 16:00; Status DC Warfarin Sodium (Coumadin Per Pharmacy) 1 each PRN DAILY PRN MC SEE COMMENTS Last administered on 07/31/18at 14:57; Start 07/29/18 at 09:00 Warfarin Sodium (Coumadin) 2 mg 1X WARF ONCE PO Last administered on 07/29/18at 18:27; Start 07/29/18 at 16:00; Stop 07/29/18 at 16:01; Status DC Sodium Chloride 1,000 ml @ 1,000 mls/hr Q1H PRN IV hypotension; Start 07/29/18 at 13:50; Stop 07/29/18 at 19:49; Status DC Info (PHARMACY MONITORING -- do not chart) 1 each PRN DAILY PRN MC SEE COMMENTS ; Start 07/29/18 at 14:00; Status Cancel Info (PHARMACY MONITORING -- do not chart) 1 each PRN DAILY PRN MC SEE COMMENTS ; Start 07/29/18 at 14:00; Status UNV Warfarin Sodium (Coumadin) 2 mg 1X WARF ONCE PO ; Start 07/30/18 at 16:00; Stop 07/30/18 at 16:01; Status DC Sodium Chloride 1,000 ml @ 1,000 mls/hr Q1H PRN IV hypotension; Start 07/31/18 at 09:54; Stop 07/31/18 at 15:53; Status DC Albumin Human 200 ml @ 200 mls/hr 1X PRN PRN IV Hypotension; Start 07/31/18 at 10:00; Stop 07/31/18 at 15:59; Status DC Sodium Chloride 1,000 ml @ 400 mls/hr Q2H30M PRN IV PATENCY; Start 07/31/18 at 09:54; Stop 07/31/18 at 21:53; Status DC Info (PHARMACY MONITORING -- do not chart) 1 each PRN DAILY PRN MC SEE COMMENTS ; Start 07/31/18 at 10:00; Status UNV Info (PHARMACY MONITORING -- do not chart) 1 each PRN DAILY PRN MC SEE COMMENTS ; Start 07/31/18 at 10:00 Warfarin Sodium (Coumadin) 2 mg 1X WARF ONCE PO ; Start 07/31/18 at 16:00; Stop 07/31/18 at 16:01; Status Cancel Insulin Human Lispro (HumaLOG) 7 units 1X ONCE SQ Last administered on at 23:20; Start 07/31/18 at 22:15; Stop 07/31/18 at 22:16; Status DC Prednisone (Prednisone) 20 mg DAILY PO ; Start 08/02/18 at 09:00 Warfarin Sodium (Coumadin - No Dose Today) 1 each 1X WARF ONCE MC ; Start at 16:00; Stop 08/01/18 at 17:29; Status DC Active Scripts Active Levemir (Insulin Detemir) 100 Unit/1 Ml Vial 5 Unit SQ QHS 30 Days Hold for < 140mg/dL Aspirin 325 Mg Tablet 1 Tab PO DAILY Reported Amlodipine Besylate 10 Mg Tablet 10 Mg PO DAILY Tylenol (Acetaminophen) 325 Mg Tablet 2 Tab PO PRN Q6HRS PRN Senna (Sennosides) 8.6 Mg Tablet 8.6 Mg PO DAILY Novolog Flexpen (Insulin Aspart) 100 Unit/1 Ml Insuln.pen 1 Unit SQ TIDAC Miralax (Polyethylene Glycol 3350) 17 Gm Powd.pack 1 Packet PO BID Milk Of Magnesia (Magnesium Hydroxide) 400 Mg/5 Ml Oral.susp 30 Ml PO PRN DAILY Duoneb 0.5-3(2.5) Mg/3 Ml (Albuterol/Ipratropium) 3 Ml Ampul.neb 3 Ml NEB TID Fleet Enema (Na Phos,M-B/Na Phos,Di-Ba) 133 Ml Enema 1 Each RC PRN DAILY PRN Dulcolax (Bisacodyl) 10 Mg Supp.rect 10 Mg RC PRN DAILY PRN Docusate Sodium 100 Mg Capsule 1 Cap PO BID Carvedilol (Carvedilol) 12.5 Mg Tablet 12.5 Mg PO BIDWMEALS Protonix (Pantoprazole Sodium) 20 Mg Tablet.dr 40 Mg PO DAILY Voltaren (Diclofenac Sodium) 100 Gm Gel..gram. 1 Gm TP BID Zofran Odt (Ondansetron) 4 Mg Tab.rapdis 4 Mg PO Q6HRS PRN Sensipar (Cinacalcet Hcl) 30 Mg Tablet 1 Tab PO DAILY Renvela (Sevelamer Carbonate) 2.4 Gm Powd.pack 2.4 Gm PO TIDWMEALS Lumigan (Bimatoprost) 2.5 Ml Drops 1 Drop EACHEYE QHS Calcitriol 0.25 Mcg Capsule 1 Cap PO DAILY Nephro-Roland Tablet (Folic Acid/Vitamin B Comp W-C) 0.8 Mg Tablet 1 Tab PO DAILYBFRSUP Vitamin D (Cholecalciferol (Vitamin D3)) 2,000 Unit Capsule 1 Cap PO DAILY Vitals/I & O Vital Sign - Last 24 Hours 08/01/18 08/01/18 08/01/18 08/01/18 08:10 10:41 11:14 13:21 Temp 98.2 98.2 Pulse 93 83 Resp 16 B/P (MAP) 116/77 (90) 116/77 Pulse Ox 98 93 97 O2 Delivery Room Air Room Air Room Air 08/01/18 08/01/18 08/01/18 08/01/18 14:36 15:00 15:53 17:49 Temp 98.3 98.3 98.3 98.3 Pulse 83 83 83 Resp 18 18 B/P (MAP) 132/63 (86) 132/63 (86) 132/63 Pulse Ox 98 96 97 O2 Delivery Room Air Room Air Room Air 08/01/18 08/01/18 08/01/18 08/02/18 19:00 19:30 22:50 03:00 Temp 97.8 97.9 96.4 97.8 97.9 96.4 Pulse 87 87 83 Resp 16 16 16 B/P (MAP) 119/56 (77) 140/68 (92) 109/46 (67) Pulse Ox 97 95 99 O2 Delivery Room Air Room Air Room Air Room Air 08/02/18 08/02/18 06:10 07:25 Temp 97.4 97.4 Pulse 73 71 Resp 18 B/P (MAP) 123/58 106/44 (64) Pulse Ox 95 O2 Delivery Room Air Intake and Output 08/01/18 08/01/18 08/02/18 15:00 23:00 07:00 Intake Total 120 ml 0 ml Balance 120 ml 0 ml MAHSA REYNOSO MD Aug 02, 2018 07:55
[2018-08-02] MEDS: INSULIN LISPRO 300 UNITS/3 ML INSULN.PEN. SQ SCH ×6 (08:00→18:45)
[2018-08-02] MEDS: IPRATRPIUM/ALBUTEROL 0.5/2.5MG 3 ML NEBU. NEB SCH ×4 (08:04→20:13)
[2018-08-02] MEDS: SEVELAMER CARBONATE 2.4 GM PACKET. PO SCH ×3 (08:18→18:25)
[2018-08-02] MEDS: guaiFENesin DM 200MG/20MG 10 ML SYRUP PO SCH ×4 (08:23→20:06)
[2018-08-02] MEDS: CINACALCET HCL 30 MG TABLET PO SCH (08:23)
[2018-08-02] MEDS: ASPIRIN 325 MG TABLET PO SCH (08:23)
[2018-08-02] MEDS: CHOLECALCIFEROL (VITAMIN D3) 1,000 UNIT TABLET PO SCH (08:23)
[2018-08-02] MEDS: predniSONE 20 MG TABLET PO SCH (08:24)
[2018-08-02] MEDS: CALCITRIOL 0.25 MCG CAPSULE. PO SCH (08:24)
[2018-08-02] MEDS: LACTOBACILLUS RHAMNOSUS GG 1 CAPSULE. PO SCH ×2 (08:24→20:11)
[2018-08-02] MEDS: DICLOFENAC SODIUM 1% TOPICAL GEL 100GM TUBE. TP SCH ×2 (08:26→20:06)
[2018-08-02] MEDS: DOCUSATE SODIUM 100 MG CAPSULE. PO SCH ×2 (09:00→21:00)
[2018-08-02] MEDS: POLYETHYLENE GLYCOL 3350 17 GM PACKET. PO SCH ×2 (09:00→21:00)
[2018-08-02] MEDS: SENNOSIDES 8.6 MG TABLET PO SCH (09:00)
[2018-08-02] MEDS ORDERED: IV NORMAL SALINE 1000ML BAG 1,000 ML IV PRN ×2 (09:30)
[2018-08-02] MEDS ORDERED: DIALYSIS PATIENT. MC PRN ×2 (09:45)
[2018-08-02 11:32] VITALS: BP 111/46
--- NOTE | 2018-08-02 13:50 | NUR ---
FACULTY CO-SIGN I have reviewed the documentation by hospital nursing assistant: Addendum: 08/02/18 at 1351 by TAMMY BECKETT RN Amended: Links added.
--- NOTE | 2018-08-02 14:39 | PDOC ---
SUBJECTIVE ROS Stable,seen on hD OBJECTIVE Vital Signs Vital Signs Date Time Temp Pulse Resp B/P (MAP) Pulse Ox O2 Delivery O2 Flow Rate FiO2 08/02/18 13:01 75 111/46 08/02/18 11:50 Room Air 08/02/18 11:32 97.5 18 96 97.5 I & 0 Intake and Output 08/02/18 06:59 Intake Total 120 ml Balance 120 ml Intake Oral 120 ml PHYSICAL EXAM Physical Exam Physical Exam General: Alert, No acute distress Lungs: Crackles (less crackles) Cardiovascular: S1, S2 Abdomen: Soft Neuro Exam: Alert Extremities: Other (EDEMA L) Skin: Warm DIAGNOSIS/ASSESSMENT Assessment & Plan ESRD- TTS Seen on HD, tolerating well, Continue as Ordered, [employer] Chronic anemia Dyspnea- On Abx for HCAP Dysphagia, malnutrition US Rt UE -- 1. Patent AV fistula in the right upper arm containing a small bit of thrombus. 2. Small hypoechoic process adjacent to the fistula at the lateral antecubital fossa level, most likely representing a small hematoma. COMMENT/RELEVANT DATA Meds Current Medications Medications (Trade) Dose Ordered Sig/Homa Start Time Stop Time Status Last Admin Dose Admin Acetaminophen (Tylenol) 500 mg PRN Q6HRS PRN 07/19/18 14:45 Albumin Human 200 ml @ 200 mls/hr 1X PRN PRN 07/31/18 10:00 07/31/18 15:59 DC Albuterol/ Ipratropium (Duoneb) 3 ml RTQID 07/19/18 16:00 08/02/18 11:49 3 ML Amino Acids/ Glycerin/ Electrolytes 1,000 ml @ 50 mls/hr Q20H 07/24/18 17:00 07/29/18 08:56 DC 07/28/18 21:12 50 MLS/HR Amoxicillin/ Clavulanate Potassium (Augmentin 500/ 125mg) 1 tab BID 07/24/18 09:00 07/25/18 09:21 DC 07/24/18 11:16 1 TAB Aspirin (Tracee Aspirin) 325 mg DAILY 07/19/18 15:00 08/02/18 08:23 325 MG Barium Sulfate (Varibar Thin Liquid Apple) 148 gm 1X ONCE 07/26/18 13:30 07/26/18 13:31 DC 07/26/18 13:30 148 GM Bisacodyl (Dulcolax Supp) 10 mg PRN DAILY PRN 07/19/18 19:45 Calcitriol (Rocaltrol) 0.25 mcg DAILY 07/20/18 09:00 08/02/18 08:24 0.25 MCG Carvedilol (Coreg) 3.125 mg BIDWMEALS 07/19/18 17:00 07/19/18 19:42 DC Cinacalcet (Sensipar) 30 mg DAILY 07/19/18 15:00 08/02/18 08:23 30 MG Dextrose (Dextrose 50%-Water Syringe) 12.5 gm PRN Q15MIN PRN 07/19/18 14:45 08/02/18 06:18 12.5 GM Diclofenac Sodium (Voltaren) 1 grisel BID 07/19/18 21:00 08/02/18 08:26 1 GRISEL Digoxin (Lanoxin) 125 mcg QTUTHSA 07/24/18 16:00 07/31/18 18:14 125 MCG Diphenhydramine HCl (Benadryl) 25 mg 1X PRN PRN 07/25/18 08:30 07/26/18 08:29 DC Docusate Sodium (Colace) 100 mg BID 07/19/18 21:00 08/01/18 08:56 100 MG Dopamine HCl/ Dextrose 250 ml @ 6.124 mls/ hr CONT PRN 07/20/18 12:00 07/26/18 14:13 DC 07/24/18 20:37 30.618 MLS/HR Fentanyl (Duragesic 12mcg/ Hr Patch) 1 patch Q3DAYS 07/19/18 15:00 07/19/18 19:42 DC Furosemide (Lasix) 40 mg 1X ONCE 07/19/18 14:45 07/19/18 14:52 DC 07/19/18 14:52 40 MG Guaifenesin (Robitussin Dm) 10 ml QID 07/19/18 17:00 08/02/18 12:57 10 ML Heparin Sodium (Porcine) (Heparin Sodium) 1,300 unit PRN Q6HRS PRN 07/24/18 19:30 07/25/18 23:25 1,300 UNIT Heparin Sodium/ Dextrose 500 ml @ 0 mls/hr CONT PRN 07/24/18 19:45 07/30/18 04:32 18.8 MLS/HR Hydromorphone HCl (Dilaudid) 2 mg PRN Q8HRS PRN 07/19/18 15:00 07/20/18 09:31 DC Info (Anti-Coagulation Monitoring By Pharmacy) 1 each PRN DAILY PRN 07/25/18 11:30 07/31/18 15:00 1 EACH Info (PHARMACY MONITORING -- do not chart) 1 each PRN DAILY PRN 08/02/18 09:45 UNV Insulin Glargine (Lantus) 14 units QHS 07/28/18 21:00 08/01/18 20:39 14 UNITS Insulin Human Lispro (HumaLOG) 7 units 1X ONCE 07/31/18 22:15 07/31/18 22:16 DC 07/31/18 23:20 7 UNITS Lactobacillus Rhamnosus (Culturelle) 1 cap BID 07/20/18 21:00 08/02/18 08:24 1 CAP Latanoprost (Xalatan) 1 drop QHS 07/19/18 21:00 08/01/18 20:31 1 DROP Magnesium Hydroxide (Milk Of Magnesia) 2,400 mg PRN DAILY PRN 07/19/18 19:45 Magnesium Sulfate 50 ml @ 25 mls/hr PRN DAILY PRN 07/20/18 09:45 Methylprednisolone Sodium Succinate (SOLU-Medrol 40MG VIAL) 40 mg Q8HRS 07/20/18 14:00 08/01/18 09:32 DC 08/01/18 06:05 40 MG Midodrine (Proamatine) 2.5 mg [id number] 07/22/18 13:00 08/02/18 13:01 2.5 MG Nitroglycerin (Nitrostat) 0.4 mg PRN Q5MIN PRN 07/19/18 14:30 07/20/18 14:29 DC Non-Formulary Medication (Latanoprost/Pf (Latanoprost 0.005% Eye Drop)) 7.5 ml QHS 07/19/18 21:00 UNV Ondansetron HCl (Zofran Odt) 4 mg PRN Q6HRS PRN 07/19/18 14:45 Ondansetron HCl (Zofran) 4 mg PRN Q8HRS PRN 07/19/18 14:30 07/20/18 14:29 DC Pantoprazole Sodium (PROTONIX VIAL for IV PUSH) 40 mg DAILYAC 07/27/18 11:30 07/28/18 10:43 DC 07/28/18 07:54 40 MG Pantoprazole Sodium (Protonix) 40 mg DAILYAC 07/29/18 07:30 08/02/18 06:10 40 MG Piperacillin Sod/ Tazobactam Sod (Zosyn Per Pharmacy) 1 each PRN DAILY PRN 07/19/18 14:45 07/24/18 11:11 DC Piperacillin Sod/ Tazobactam Sod 2.25 gm/Sodium Chloride 50 ml @ 100 mls/hr Q8HRS 07/25/18 09:30 07/28/18 09:31 DC 07/28/18 05:07 100 MLS/HR Polyethylene Glycol (miraLAX PACKET) 17 gm BID 07/19/18 21:00 07/31/18 20:52 17 GM Prednisone (Prednisone) 20 mg DAILY 08/02/18 09:00 08/02/18 08:24 20 MG Sennosides (Senna) 8.6 mg DAILY 07/20/18 09:00 07/31/18 09:47 8.6 MG Sevelamer Carbonate (Renvela) 2.4 gm TIDWMEALS 07/19/18 17:00 08/02/18 13:00 2.4 GM Sodium Monofluorophosphate (Fleet Adult) 133 ml PRN DAILY PRN 07/19/18 19:45 07/22/18 12:17 DC Sodium Chloride 1,000 ml @ 400 mls/hr Q2H30M PRN 08/02/18 09:30 08/02/18 18:00 Temazepam (Restoril) 7.5 mg PRN QHS PRN 07/19/18 14:45 07/22/18 20:42 7.5 MG Vitamin B Complex/ Vitamin C (Bela-Roland) 1 tab DAILYBFRSUP 07/19/18 17:00 08/01/18 17:42 1 TAB Vitamin D (Vitamin D3) 1,000 unit DAILY 07/20/18 09:00 08/02/18 08:23 1,000 UNIT Warfarin Sodium (Coumadin - No Dose Today) 1 each 1X WARF ONCE 08/01/18 16:00 08/01/18 17:29 DC Warfarin Sodium (Coumadin Per Pharmacy) 1 each PRN DAILY PRN 07/29/18 09:00 07/31/18 14:57 1 EACH Warfarin Sodium (Coumadin) 2 mg 1X WARF ONCE 07/31/18 16:00 07/31/18 16:01 Cancel Lab Laboratory Tests Test 08/01/18 17:20 08/01/18 20:32 08/02/18 05:00 08/02/18 06:08 Glucose (Fingerstick) 335 mg/dL (70-99) 216 mg/dL (70-99) 50 mg/dL (70-99) White Blood Count 13.3 x10^3/uL (4.0-11.0) Red Blood Count 2.71 x10^6/uL (3.50-5.40) Hemoglobin 9.5 g/dL (12.0-15.5) Hematocrit 29.0 % (36.0-47.0) Mean Corpuscular Volume 107 fL (79-100) Mean Corpuscular Hemoglobin 35 pg (25-35) Mean Corpuscular Hemoglobin Concent 33 g/dL (31-37) Red Cell Distribution Width 20.2 % (11.5-14.5) Platelet Count 120 x10^3/uL (140-400) Neutrophils (%) (Auto) 76 % (31-73) Lymphocytes (%) (Auto) 14 % (24-48) Monocytes (%) (Auto) 9 % (0-9) Eosinophils (%) (Auto) 1 % (0-3) Basophils (%) (Auto) 0 % (0-3) Neutrophils # (Auto) 10.1 x10^3uL (1.8-7.7) Lymphocytes # (Auto) 1.9 x10^3/uL (1.0-4.8) Monocytes # (Auto) 1.2 x10^3/uL (0.0-1.1) Eosinophils # (Auto) 0.1 x10^3/uL (0.0-0.7) Basophils # (Auto) 0.0 x10^3/uL (0.0-0.2) Prothrombin Time 15.0 SEC (11.7-14.0) Prothromb Time International Ratio 1.2 (0.8-1.1) Sodium Level 138 mmol/L (136-145) Potassium Level 4.6 mmol/L (3.5-5.1) Chloride Level 99 mmol/L (98-107) Carbon Dioxide Level 31 mmol/L (21-32) Anion Gap 8 (6-14) Blood Urea Nitrogen 43 mg/dL (7-20) Creatinine 3.5 mg/dL (0.6-1.0) Estimated GFR (Cockcroft-Gault) 12.4 Glucose Level 56 mg/dL (70-99) Calcium Level 7.7 mg/dL (8.5-10.1) Phosphorus Level 2.6 mg/dL (2.6-4.7) Albumin 2.9 g/dL (3.4-5.0) Test 08/02/18 06:33 08/02/18 07:04 08/02/18 11:08 Glucose (Fingerstick) 101 mg/dL (70-99) 99 mg/dL (70-99) 162 mg/dL (70-99) Results All relevant outside records, renal labs, imaging studies, telemetry/EKG's were reviewed. ASHU GARDINER MD Aug 02, 2018 14:39
[2018-08-02] MEDS: FOLIC/VIT B COMP W-C (RENAL) TABLET. PO SCH (18:25)
[2018-08-02] MEDS: DIGOXIN 125 MCG TABLET. PO SCH (18:32)
[2018-08-02 19:15] VITALS: BP 138/62
[2018-08-02] MEDS: LATANOPROST 0.005% OPHTH SOLUTION 2.5ML BOTTLE. OU SCH (20:06)
[2018-08-02] MEDS: INSULIN GLARGINE 300 UNITS/3 ML INSULN.PEN. SQ SCH (20:17)
[2018-08-02 23:43] VITALS: BP 124/48
[2018-08-03] VITALS (7 sets, daily range): BP systolic 99–165; BP diastolic 44–67
[2018-08-03] MEDS: DEXTROSE 50% 25 GM / 50ML DISP.SYRIN. IV PRN (05:43)
[2018-08-03 06:12] LABS: ALBUMIN 2.6 g/dL (3.4-5.0); CALCIUM 7.8 mg/dL (8.5-10.1); CREATININE 2.3 mg/dL (0.6-1.0); GFR 20.1; POTASSIUM 3.9 mmol/L (3.5-5.1)
[2018-08-03 06:13] LABS: BASO # 0.2 x10^3/uL (0.0-0.2); BASO % 2 % (0-3); EOS # 0.2 x10^3/uL (0.0-0.7); EOS % 2 % (0-3); HEMATOCRIT 29.4 % (36.0-47.0); HEMOGLOBIN 9.6 g/dL (12.0-15.5); LYMPH # 1.8 x10^3/uL (1.0-4.8); LYMPH % 15 % (24-48); MEAN CORPUSCULAR HEMOGLOBIN 35 pg (25-35); MEAN CORPUSCULAR HGB CONC 33 g/dL (31-37); MEAN CORPUSCULAR VOLUME 108 fL (79-100); MONO # 1.3 x10^3/uL (0.0-1.1); MONO % 11 % (0-9); NEUT # 8.4 x10^3uL (1.8-7.7); NEUT % 71 % (31-73); PLATELET COUNT 117 x10^3/uL (140-400); RED BLOOD COUNT 2.73 x10^6/uL (3.50-5.40); RED CELL DISTRIBUTION WIDTH 20.4 % (11.5-14.5); WHITE BLOOD COUNT 11.9 x10^3/uL (4.0-11.0)
[2018-08-03 06:26] LABS: PROTHROMBIN TIME PATIENT 14.4 SEC (11.7-14.0)
[2018-08-03] MEDS: MIDODRINE 2.5 MG TABLET PO SCH ×3 (06:28→16:20)
[2018-08-03] MEDS: PANTOPRAZOLE 40 MG TABLET.DR. PO SCH (06:28)
--- NOTE | 2018-08-03 07:26 | PDOC ---
PROGRESS NOTES Chief Complaint Chief Complaint SOA, fluid overload and treating HCAP ESRD on dialysis-did not finish dialysis Existing AV fistula Hypotension, resolved now hypertension Anemia of chronic disease severe Generalized weakness SNU resident Diabetes type 2 on low-dose insulin uncontrolled// inc lantus to 14 units sq hs symptomatic with lethargy hypotension dysphagia, malnutrition MARKED DEBILITY, WEAKNESS Penetration of thin liquids w/ large drinks via cup, chin tuck and straw drinking were observed. Decreasing bolus size, keeping head in neutral position and alternating or utilizing a dry swallow were all effective strategies. No aspiration was observed during this evaluation. Occlusive thrombus in one brachial vein in the left upper arm surrounding an indwelling PICC line, on heparin for clot Dysphagia II diet w/ thin liquids, AGREE WITH LTAC/ PLANS REMAINS TO HAVE MARKED DECLINES SLOW TO IMPROVE with variability day to day, High risk of additional complications and readmission History of Present Illness History of Present Illness 87-year-old female //admitted from 07/10 thru 07/15, discharge 4 days [employer] , 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 Bleeding from HD fistula, heparin level high, INR was up but has not been on coumadin which was started last night. Patchy ground glass opacification of the lungs. Dysphagia and aspiration 07/30: She is not speaking much today. her AV fistula started spurting blood again last night. She is still very weak and dejected today. Held heparin and coumadin for AV fistula bleeding > 24 hours. 07/31-08/01: AV fistula bleeding stopped, vascular recommends not reinitiating coumadin or heparin. Tolerated dialysis well 07/31 08/02: This morning she is still in poor spirits. Denies CP, has shortness of breath and c/o dysphagia, encouraged to sit up in bed. AV fistula bleeding seems to have stopped. She is more weak today, requiring some assistance even with eating. She has been eating a lot of ice cream the past few days, glycemic control has been more difficult. Right arm very bruised. Dialysis today This morning glucose 31. Feeling low appetite and depressed. Denies SOB or CP. Plan: MOD-SEVERE protein-caloric malnutrition - on PPN, eating 50% and more from her meals, may benefit from backing off PPN as she is getting fluid overloaded. She may need to get back on PPN/TPN based on not eating again today. LTAC may actually be most appropriate for her. US RUE: 1. Patent AV fistula in the right upper arm containing a small bit of thrombus. 2. Small hypoechoic process adjacent to the fistula at the lateral antecubital fossa level, most likely representing a small hematoma. Vitals Vitals Vital Signs Date Time Temp Pulse Resp B/P (MAP) Pulse Ox O2 Delivery O2 Flow Rate FiO2 08/03/18 06:28 74 113/57 08/03/18 03:52 97.9 18 100 Room Air 97.9 Physical Exam Physical Exam GENERAL: Propped up in bed, awake, Looks well HEENT: anicteric getting breathing treatment LUNGS: Mild congestion - bilat HEART: S1, S2. ABDOMEN: , soft and nontender. EXTREMITIES: No edema, no cyanosis. SKIN: No generalized rash. Chronic skin changes present in both lower extremities. 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 Motor function and sensation intact. LLE: Mild swelling in forearm and hand, palpable brahial pulse. Motor function and sensation intact.) Skin: Other (as above, no open lesions.) Labs LABS Laboratory Tests Test 08/02/18 11:08 08/02/18 18:24 08/02/18 20:10 08/03/18 05:30 Glucose (Fingerstick) 162 mg/dL (70-99) 185 mg/dL (70-99) 200 mg/dL (70-99) White Blood Count 11.9 x10^3/uL (4.0-11.0) Red Blood Count 2.73 x10^6/uL (3.50-5.40) Hemoglobin 9.6 g/dL (12.0-15.5) Hematocrit 29.4 % (36.0-47.0) Mean Corpuscular Volume 108 fL (79-100) Mean Corpuscular Hemoglobin 35 pg (25-35) Mean Corpuscular Hemoglobin Concent 33 g/dL (31-37) Red Cell Distribution Width 20.4 % (11.5-14.5) Platelet Count 117 x10^3/uL (140-400) Neutrophils (%) (Auto) 71 % (31-73) Lymphocytes (%) (Auto) 15 % (24-48) Monocytes (%) (Auto) 11 % (0-9) Eosinophils (%) (Auto) 2 % (0-3) Basophils (%) (Auto) 2 % (0-3) Neutrophils # (Auto) 8.4 x10^3uL (1.8-7.7) Lymphocytes # (Auto) 1.8 x10^3/uL (1.0-4.8) Monocytes # (Auto) 1.3 x10^3/uL (0.0-1.1) Eosinophils # (Auto) 0.2 x10^3/uL (0.0-0.7) Basophils # (Auto) 0.2 x10^3/uL (0.0-0.2) Prothrombin Time 14.4 SEC (11.7-14.0) Prothromb Time International Ratio 1.2 (0.8-1.1) Sodium Level 140 mmol/L (136-145) Potassium Level 3.9 mmol/L (3.5-5.1) Chloride Level 102 mmol/L (98-107) Carbon Dioxide Level 31 mmol/L (21-32) Anion Gap 7 (6-14) Blood Urea Nitrogen 21 mg/dL (7-20) Creatinine 2.3 mg/dL (0.6-1.0) Estimated GFR (Cockcroft-Gault) 20.1 Glucose Level 46 mg/dL (70-99) Calcium Level 7.8 mg/dL (8.5-10.1) Phosphorus Level 2.0 mg/dL (2.6-4.7) Albumin 2.6 g/dL (3.4-5.0) Test 08/03/18 05:32 08/03/18 06:02 08/03/18 07:08 Glucose (Fingerstick) 31 mg/dL (70-99) 67 mg/dL (70-99) 84 mg/dL (70-99) Assessment and Plan Assessmemt and Plan Problems Medical Problems: (1) Congestive heart failure Status: Acute Comment Review of Relevant I have reviewed the following items smith (where applicable) has been applied. Labs Laboratory Tests Test 08/01/18 11:22 08/01/18 14:16 08/01/18 17:20 08/01/18 20:32 Glucose (Fingerstick) 224 mg/dL (70-99) 230 mg/dL (70-99) 335 mg/dL (70-99) 216 mg/dL (70-99) Test 08/02/18 05:00 08/02/18 06:08 08/02/18 06:33 08/02/18 07:04 White Blood Count 13.3 x10^3/uL (4.0-11.0) Red Blood Count 2.71 x10^6/uL (3.50-5.40) Hemoglobin 9.5 g/dL (12.0-15.5) Hematocrit 29.0 % (36.0-47.0) Mean Corpuscular Volume 107 fL (79-100) Mean Corpuscular Hemoglobin 35 pg (25-35) Mean Corpuscular Hemoglobin Concent 33 g/dL (31-37) Red Cell Distribution Width 20.2 % (11.5-14.5) Platelet Count 120 x10^3/uL (140-400) Neutrophils (%) (Auto) 76 % (31-73) Lymphocytes (%) (Auto) 14 % (24-48) Monocytes (%) (Auto) 9 % (0-9) Eosinophils (%) (Auto) 1 % (0-3) Basophils (%) (Auto) 0 % (0-3) Neutrophils # (Auto) 10.1 x10^3uL (1.8-7.7) Lymphocytes # (Auto) 1.9 x10^3/uL (1.0-4.8) Monocytes # (Auto) 1.2 x10^3/uL (0.0-1.1) Eosinophils # (Auto) 0.1 x10^3/uL (0.0-0.7) Basophils # (Auto) 0.0 x10^3/uL (0.0-0.2) Prothrombin Time 15.0 SEC (11.7-14.0) Prothromb Time International Ratio 1.2 (0.8-1.1) Sodium Level 138 mmol/L (136-145) Potassium Level 4.6 mmol/L (3.5-5.1) Chloride Level 99 mmol/L (98-107) Carbon Dioxide Level 31 mmol/L (21-32) Anion Gap 8 (6-14) Blood Urea Nitrogen 43 mg/dL (7-20) Creatinine 3.5 mg/dL (0.6-1.0) Estimated GFR (Cockcroft-Gault) 12.4 Glucose Level 56 mg/dL (70-99) Calcium Level 7.7 mg/dL (8.5-10.1) Phosphorus Level 2.6 mg/dL (2.6-4.7) Albumin 2.9 g/dL (3.4-5.0) Glucose (Fingerstick) 50 mg/dL (70-99) 101 mg/dL (70-99) 99 mg/dL (70-99) Test 08/02/18 11:08 08/02/18 18:24 08/02/18 20:10 08/03/18 05:30 Glucose (Fingerstick) 162 mg/dL (70-99) 185 mg/dL (70-99) 200 mg/dL (70-99) White Blood Count 11.9 x10^3/uL (4.0-11.0) Red Blood Count 2.73 x10^6/uL (3.50-5.40) Hemoglobin 9.6 g/dL (12.0-15.5) Hematocrit 29.4 % (36.0-47.0) Mean Corpuscular Volume 108 fL (79-100) Mean Corpuscular Hemoglobin 35 pg (25-35) Mean Corpuscular Hemoglobin Concent 33 g/dL (31-37) Red Cell Distribution Width 20.4 % (11.5-14.5) Platelet Count 117 x10^3/uL (140-400) Neutrophils (%) (Auto) 71 % (31-73) Lymphocytes (%) (Auto) 15 % (24-48) Monocytes (%) (Auto) 11 % (0-9) Eosinophils (%) (Auto) 2 % (0-3) Basophils (%) (Auto) 2 % (0-3) Neutrophils # (Auto) 8.4 x10^3uL (1.8-7.7) Lymphocytes # (Auto) 1.8 x10^3/uL (1.0-4.8) Monocytes # (Auto) 1.3 x10^3/uL (0.0-1.1) Eosinophils # (Auto) 0.2 x10^3/uL (0.0-0.7) Basophils # (Auto) 0.2 x10^3/uL (0.0-0.2) Prothrombin Time 14.4 SEC (11.7-14.0) Prothromb Time International Ratio 1.2 (0.8-1.1) Sodium Level 140 mmol/L (136-145) Potassium Level 3.9 mmol/L (3.5-5.1) Chloride Level 102 mmol/L (98-107) Carbon Dioxide Level 31 mmol/L (21-32) Anion Gap 7 (6-14) Blood Urea Nitrogen 21 mg/dL (7-20) Creatinine 2.3 mg/dL (0.6-1.0) Estimated GFR (Cockcroft-Gault) 20.1 Glucose Level 46 mg/dL (70-99) Calcium Level 7.8 mg/dL (8.5-10.1) Phosphorus Level 2.0 mg/dL (2.6-4.7) Albumin 2.6 g/dL (3.4-5.0) Test 08/03/18 05:32 08/03/18 06:02 08/03/18 07:08 Glucose (Fingerstick) 31 mg/dL (70-99) 67 mg/dL (70-99) 84 mg/dL (70-99) Laboratory Tests Test 08/02/18 11:08 08/02/18 18:24 08/02/18 20:10 08/03/18 05:30 Glucose (Fingerstick) 162 mg/dL (70-99) 185 mg/dL (70-99) 200 mg/dL (70-99) White Blood Count 11.9 x10^3/uL (4.0-11.0) Red Blood Count 2.73 x10^6/uL (3.50-5.40) Hemoglobin 9.6 g/dL (12.0-15.5) Hematocrit 29.4 % (36.0-47.0) Mean Corpuscular Volume 108 fL (79-100) Mean Corpuscular Hemoglobin 35 pg (25-35) Mean Corpuscular Hemoglobin Concent 33 g/dL (31-37) Red Cell Distribution Width 20.4 % (11.5-14.5) Platelet Count 117 x10^3/uL (140-400) Neutrophils (%) (Auto) 71 % (31-73) Lymphocytes (%) (Auto) 15 % (24-48) Monocytes (%) (Auto) 11 % (0-9) Eosinophils (%) (Auto) 2 % (0-3) Basophils (%) (Auto) 2 % (0-3) Neutrophils # (Auto) 8.4 x10^3uL (1.8-7.7) Lymphocytes # (Auto) 1.8 x10^3/uL (1.0-4.8) Monocytes # (Auto) 1.3 x10^3/uL (0.0-1.1) Eosinophils # (Auto) 0.2 x10^3/uL (0.0-0.7) Basophils # (Auto) 0.2 x10^3/uL (0.0-0.2) Prothrombin Time 14.4 SEC (11.7-14.0) Prothromb Time International Ratio 1.2 (0.8-1.1) Sodium Level 140 mmol/L (136-145) Potassium Level 3.9 mmol/L (3.5-5.1) Chloride Level 102 mmol/L (98-107) Carbon Dioxide Level 31 mmol/L (21-32) Anion Gap 7 (6-14) Blood Urea Nitrogen 21 mg/dL (7-20) Creatinine 2.3 mg/dL (0.6-1.0) Estimated GFR (Cockcroft-Gault) 20.1 Glucose Level 46 mg/dL (70-99) Calcium Level 7.8 mg/dL (8.5-10.1) Phosphorus Level 2.0 mg/dL (2.6-4.7) Albumin 2.6 g/dL (3.4-5.0) Test 08/03/18 05:32 08/03/18 06:02 08/03/18 07:08 Glucose (Fingerstick) 31 mg/dL (70-99) 67 mg/dL (70-99) 84 mg/dL (70-99) Medications Current Medications Albuterol/ Ipratropium (Duoneb) 3 ml 1X ONCE NEB Last administered on at 12:57; Start 07/19/18 at 12:45; Stop 07/19/18 at 12:46; Status DC Ondansetron HCl (Zofran) 4 mg PRN Q8HRS PRN IV NAUSEA/VOMITING; Start 07/19/18 at 14:30; Stop 07/20/18 at 14:29; Status DC Acetaminophen (Tylenol) 650 mg PRN Q4HRS PRN PO FEVER; Start 07/19/18 at 14:30 ; Stop 07/20/18 at 08:37; Status DC Nitroglycerin (Nitrostat) 0.4 mg PRN Q5MIN PRN SL CHEST PAIN; Start 07/19/18 at 14:30; Stop 07/20/18 at 14:29; Status DC Albuterol/ Ipratropium (Duoneb) 3 ml RTQID NEB ; Start 07/19/18 at 16:00; Stop 07/20/18 at 15:59; Status Cancel Aspirin (Tracee Aspirin) 325 mg DAILY PO Last administered on 08/02/18at 08:23; Start 07/19/18 at 15:00 Carvedilol (Coreg) 3.125 mg BIDWMEALS PO ; Start 07/19/18 at 17:00; Stop at 19:42; Status DC Cinacalcet (Sensipar) 30 mg DAILY PO Last administered on 08/02/18 08:23; Start 07/19/18 at 15:00 Diclofenac Sodium (Voltaren) 1 grisel BID TP Last administered on 08/02/18 08:26; Start 07/19/18 at 21:00 Fentanyl (Duragesic 12mcg/ Hr Patch) 1 patch Q3DAYS TD ; Start 07/19/18 at 15:00 ; Stop 07/19/18 at 19:42; Status DC Vitamin B Complex/ Vitamin C (Bela-Roland) 1 tab DAILYBFRSUP PO Last administered on 08/02/18 18:25; Start 07/19/18 at 17:00 Ondansetron HCl (Zofran Odt) 4 mg PRN Q6HRS PRN PO NAUSEA/VOMITING; Start 07/19 at 14:45 Sevelamer Carbonate (Renvela) 2.4 gm TIDWMEALS PO Last administered on 4/6/ 19at 18:25; Start 07/19/18 at 17:00 Acetaminophen (Tylenol) 500 mg PRN Q6HRS PRN PO MILD PAIN / TEMP; Start at 14:45 Latanoprost (Xalatan) 1 drop QHS OU Last administered on 08/02/18 20:06; Start 07/19/18 at 21:00 Calcitriol (Rocaltrol) 0.25 mcg DAILY PO Last administered on 08/02/18 08:24; Start 07/20/18 at 09:00 Vitamin D (Vitamin D3) 1,000 unit DAILY PO Last administered on 08/02/18 08:23 ; Start 07/20/18 at 09:00 Hydromorphone HCl (Dilaudid) 2 mg PRN Q8HRS PRN PO MODERATE PAIN, SEVERE PAIN; Start 07/19/18 at 15:00; Stop 07/20/18 at 09:31; Status DC Insulin Glargine (Lantus) 5 units QHS SQ Last administered on 07/26/18at 21:46; Start 07/19/18 at 21:00; Stop 07/27/18 at 10:00; Status DC Non-Formulary Medication (Latanoprost/Pf (Latanoprost 0.005% Eye Drop)) 7.5 ml QHS OP ; Start 07/19/18 at 21:00; Status UNV Pantoprazole Sodium (Protonix) 40 mg DAILYAC PO Last administered on 07/24/18at 11:17; Start 07/20/18 at 07:30; Stop 07/27/18 at 09:10; Status DC Piperacillin Sod/ Tazobactam Sod (Zosyn Per Pharmacy) 1 each PRN DAILY PRN MC SEE COMMENTS; Start 07/19/18 at 14:45; Stop 07/24/18 at 11:11; Status DC Albuterol/ Ipratropium (Duoneb) 3 ml RTQID NEB Last administered on 08/02/18 20 :13; Start 07/19/18 at 16:00 Guaifenesin (Robitussin Dm) 10 ml QID PO Last administered on 08/02/18 20:06; Start 07/19/18 at 17:00 Temazepam (Restoril) 7.5 mg PRN QHS PRN PO INSOMNIA Last administered on 20:42; Start 07/19/18 at 14:45 Insulin Human Lispro (HumaLOG) 0-7 UNITS TIDWMEALS SQ Last administered on 18:44; Start 07/19/18 at 17:00 Dextrose (Dextrose 50%-Water Syringe) 12.5 gm PRN Q15MIN PRN IV SEE COMMENTS Last administered on 08/03/18 05:43; Start 07/19/18 at 14:45 Piperacillin Sod/ Tazobactam Sod 2.25 gm/Sodium Chloride 50 ml @ 100 mls/hr Q8H IV Last administered on 07/24/18 00:10; Start 07/19/18 at 16:00; Stop at 08:08; Status DC Furosemide (Lasix) 40 mg 1X ONCE IVP Last administered on 07/19/18 14:52; Start 07/19/18 at 14:45; Stop 07/19/18 at 14:52; Status DC Docusate Sodium (Colace) 100 mg BID PO Last administered on 08/01/18 08:56; Start 07/19/18 at 21:00 Magnesium Hydroxide (Milk Of Magnesia) 2,400 mg PRN DAILY PRN PO CONSTIPATION; Start 07/19/18 at 19:45 Sodium Monofluorophosphate (Fleet Adult) 133 ml PRN DAILY PRN RC CONSTIPATION; Start 07/19/18 at 19:45; Stop 07/22/18 at 12:17; Status DC Bisacodyl (Dulcolax Supp) 10 mg PRN DAILY PRN AK CONSTIPATION 1ST CHOICE; Start 07/19/18 at 19:45 Polyethylene Glycol (miraLAX PACKET) 17 gm BID PO Last administered on 20:52; Start 07/19/18 at 21:00 Sennosides (Senna) 8.6 mg DAILY PO Last administered on 07/31/18 09:47; Start 07/20/18 at 09:00 Lactobacillus Rhamnosus (Culturelle) 1 cap BID PO Last administered on 20:11; Start 07/20/18 at 21:00 Methylprednisolone Sodium Succinate (SOLU-Medrol 40MG VIAL) 40 mg Q8HRS IV Last administered on 4/5/19at 06:05; Start 07/20/18 at 14:00; Stop 08/01/18 at 09 :32; Status DC Albumin Human 250 ml @ 62.5 mls/hr PRN Q6HRS PRN IV for MAP < 65 Last administered on 07/21/18at 20:45; Start 07/20/18 at 09:45 Magnesium Sulfate 50 ml @ 25 mls/hr PRN DAILY PRN IV for Mag < 1.7 on am labs; Start 07/20/18 at 09:45 Dopamine HCl/ Dextrose 250 ml @ 6.124 mls/ hr CONT PRN IV SEE I/O RECORD Last administered on 07/24/18at 20:37; Start 07/20/18 at 12:00; Stop 07/26/18 at 14:13 ; Status DC Sodium Chloride 1,000 ml @ 1,000 mls/hr Q1H PRN IV hypotension; Start 07/21/18 at 13:00; Stop 07/21/18 at 18:59; Status DC Sodium Chloride 1,000 ml @ 400 mls/hr Q2H30M PRN IV PATENCY; Start 07/21/18 at 13:00; Stop 07/22/18 at 00:59; Status DC Info (PHARMACY MONITORING -- do not chart) 1 each PRN DAILY PRN MC SEE COMMENTS ; Start 07/21/18 at 13:30; Status UNV Info (PHARMACY MONITORING -- do not chart) 1 each PRN DAILY PRN MC SEE COMMENTS ; Start 07/21/18 at 13:30; Stop 07/24/18 at 07:10; Status DC Albumin Human 100 ml @ 100 mls/hr 1X ONCE IV Last administered on 07/21/18at 14:00; Start 07/21/18 at 13:30; Stop 07/21/18 at 14:29; Status DC Sodium Chloride 500 ml @ 500 mls/hr 1X ONCE IV Last administered on at 11:14; Start 07/22/18 at 11:15; Stop 07/22/18 at 12:14; Status DC Digoxin (Lanoxin) 125 mcg QMWF@1600 PO ; Start 07/23/18 at 16:00; Stop 07/23/18 at 16:00; Status DC Digoxin (Lanoxin) 125 mcg 1X ONCE PO Last administered on 07/22/18at 12:26; Start 07/22/18 at 12:00; Stop 07/22/18 at 12:01; Status DC Midodrine (Proamatine) 2.5 mg [id number] PO Last administered on 08/03/18at 06:28; Start 07/22/18 at 13:00 Digoxin (Lanoxin) 125 mcg QTUTHSA PO Last administered on 08/02/18at 18:32; Start 07/24/18 at 16:00 Sodium Chloride 500 ml @ 500 mls/hr 1X ONCE IV Last administered on at 15:42; Start 07/23/18 at 15:00; Stop 07/23/18 at 15:59; Status DC Sodium Chloride 1,000 ml @ 1,000 mls/hr Q1H PRN IV hypotension; Start 07/24/18 at 06:59; Stop 07/24/18 at 12:58; Status DC Albumin Human 200 ml @ 200 mls/hr 1X PRN PRN IV Hypotension Last administered on 07/24/18at 08:09; Start 07/24/18 at 07:00; Stop 07/24/18 at 12:59; Status DC Sodium Chloride 1,000 ml @ 400 mls/hr Q2H30M PRN IV PATENCY; Start 07/24/18 at 06:59; Stop 07/24/18 at 18:58; Status DC Info (PHARMACY MONITORING -- do not chart) 1 each PRN DAILY PRN MC SEE COMMENTS ; Start 07/24/18 at 07:00; Stop 07/25/18 at 11:17; Status DC Info (PHARMACY MONITORING -- do not chart) 1 each PRN DAILY PRN MC SEE COMMENTS ; Start 07/24/18 at 07:00; Status UNV Amoxicillin/ Clavulanate Potassium (Augmentin 500/ 125mg) 1 tab BID PO Last administered on 07/24/18at 11:16; Start 07/24/18 at 09:00; Stop 07/25/18 at 09:21 ; Status DC Amino Acids/ Glycerin/ Electrolytes 1,000 ml @ 50 mls/hr Q20H IV Last administered on 07/28/18at 21:12; Start 07/24/18 at 17:00; Stop 07/29/18 at 08:56; Status DC Heparin Sodium/ Dextrose 500 ml @ 0 mls/hr CONT PRN IV SEE I/O RECORD; Start at 19:30; Status Cancel Heparin Sodium (Porcine) (Heparin Sodium) 6,850 unit 1X ONCE IV Last administered on 07/24/18at 19:38; Start 07/24/18 at 19:30; Stop 07/24/18 at 19:33 ; Status DC Heparin Sodium/ Dextrose 500 ml @ 0 mls/hr CONT PRN IV SEE I/O RECORD; Start at 19:30; Status UNV Heparin Sodium (Porcine) (Heparin Sodium) 2,550 unit PRN Q6HRS PRN IV FOR UFH LEVEL LESS THAN 0.2; Start 07/24/18 at 19:30 Heparin Sodium (Porcine) (Heparin Sodium) 1,300 unit PRN Q6HRS PRN IV FOR UFH LEVEL 0.2 - 0.29 Last administered on 07/25/18at 23:25; Start 07/24/18 at 19:30 Heparin Sodium/ Dextrose 500 ml @ 0 mls/hr CONT PRN IV SEE I/O RECORD Last administered on 07/30/18at 04:32; Start 07/24/18 at 19:45 Sodium Chloride 1,000 ml @ 1,000 mls/hr Q1H PRN IV hypotension; Start 07/25/18 at 08:22; Stop 07/25/18 at 14:21; Status DC Albumin Human 200 ml @ 200 mls/hr 1X ONCE IV Last administered on 07/25/18at 08:49; Start 07/25/18 at 08:30; Stop 07/25/18 at 09:29; Status DC Diphenhydramine HCl (Benadryl) 25 mg 1X PRN PRN IV ITCHING; Start 07/25/18 at 08:30; Stop 07/26/18 at 08:29; Status DC Diphenhydramine HCl (Benadryl) 25 mg 1X PRN PRN IV ITCHING; Start 07/25/18 at 08:30; Stop 07/26/18 at 08:29; Status DC Sodium Chloride 1,000 ml @ 400 mls/hr Q2H30M PRN IV PATENCY; Start 07/25/18 at 08:22; Stop 07/25/18 at 20:21; Status DC Info (PHARMACY MONITORING -- do not chart) 1 each PRN DAILY PRN MC SEE COMMENTS ; Start 07/25/18 at 08:30; Stop 07/26/18 at 14:10; Status DC Piperacillin Sod/ Tazobactam Sod 2.25 gm/Sodium Chloride 50 ml @ 100 mls/hr Q8HRS IV Last administered on 07/28/18at 05:07; Start 07/25/18 at 09:30; Stop 07/28/18 at 09:31; Status DC Info (Anti-Coagulation Monitoring By Pharmacy) 1 each PRN DAILY PRN MC SEE COMMENTS Last administered on 07/31/18at 15:00; Start 07/25/18 at 11:30 Info (PHARMACY MONITORING -- do not chart) 1 each PRN DAILY PRN MC SEE COMMENTS ; Start 07/26/18 at 08:15; Status Cancel Info (PHARMACY MONITORING -- do not chart) 1 each PRN DAILY PRN MC SEE COMMENTS ; Start 07/26/18 at 08:15; Stop 07/26/18 at 08:17; Status DC Barium Sulfate (Varibar Thin Liquid Apple) 148 gm 1X ONCE PO Last administered on 07/26/18at 13:30; Start 07/26/18 at 13:30; Stop 07/26/18 at 13:31 ; Status DC Pantoprazole Sodium (PROTONIX VIAL for IV PUSH) 40 mg DAILYAC IVP Last administered on 07/28/18at 07:54; Start 07/27/18 at 11:30; Stop 07/28/18 at 10:43; Status DC Insulin Glargine (Lantus) 9 units QHS SQ Last administered on 07/27/18at 20:52; Start 07/27/18 at 21:00; Stop 07/28/18 at 14:03; Status DC Insulin Human Lispro (HumaLOG) 4 units TIDWMEALS SQ Last administered on at 18:45; Start 07/27/18 at 12:00 Pantoprazole Sodium (Protonix) 40 mg DAILYAC PO Last administered on 08/03/18at 06:28; Start 07/29/18 at 07:30 Insulin Glargine (Lantus) 14 units QHS SQ Last administered on 08/02/18at 20:17; Start 07/28/18 at 21:00 Warfarin Sodium (Coumadin) 2.5 mg DAILY16 PO ; Start 07/29/18 at 16:00; Stop 07/29 at 16:00; Status DC Warfarin Sodium (Coumadin Per Pharmacy) 1 each PRN DAILY PRN MC SEE COMMENTS Last administered on 07/31/18at 14:57; Start 07/29/18 at 09:00 Warfarin Sodium (Coumadin) 2 mg 1X WARF ONCE PO Last administered on 07/29/18at 18:27; Start 07/29/18 at 16:00; Stop 07/29/18 at 16:01; Status DC Sodium Chloride 1,000 ml @ 1,000 mls/hr Q1H PRN IV hypotension; Start 07/29/18 at 13:50; Stop 07/29/18 at 19:49; Status DC Info (PHARMACY MONITORING -- do not chart) 1 each PRN DAILY PRN MC SEE COMMENTS ; Start 07/29/18 at 14:00; Status Cancel Info (PHARMACY MONITORING -- do not chart) 1 each PRN DAILY PRN MC SEE COMMENTS ; Start 07/29/18 at 14:00; Status UNV Warfarin Sodium (Coumadin) 2 mg 1X WARF ONCE PO ; Start 07/30/18 at 16:00; Stop 07/30/18 at 16:01; Status DC Sodium Chloride 1,000 ml @ 1,000 mls/hr Q1H PRN IV hypotension; Start 07/31/18 at 09:54; Stop 07/31/18 at 15:53; Status DC Albumin Human 200 ml @ 200 mls/hr 1X PRN PRN IV Hypotension; Start 07/31/18 at 10:00; Stop 07/31/18 at 15:59; Status DC Sodium Chloride 1,000 ml @ 400 mls/hr Q2H30M PRN IV PATENCY; Start 07/31/18 at 09:54; Stop 07/31/18 at 21:53; Status DC Info (PHARMACY MONITORING -- do not chart) 1 each PRN DAILY PRN MC SEE COMMENTS ; Start 07/31/18 at 10:00; Status UNV Info (PHARMACY MONITORING -- do not chart) 1 each PRN DAILY PRN MC SEE COMMENTS ; Start 07/31/18 at 10:00 Warfarin Sodium (Coumadin) 2 mg 1X WARF ONCE PO ; Start 07/31/18 at 16:00; Stop 07/31/18 at 16:01; Status Cancel Insulin Human Lispro (HumaLOG) 7 units 1X ONCE SQ Last administered on at 23:20; Start 07/31/18 at 22:15; Stop 07/31/18 at 22:16; Status DC Prednisone (Prednisone) 20 mg DAILY PO Last administered on 08/02/18at 08:24; Start 08/02/18 at 09:00 Warfarin Sodium (Coumadin - No Dose Today) 1 each 1X WARF ONCE MC ; Start at 16:00; Stop 08/01/18 at 17:29; Status DC Sodium Chloride 1,000 ml @ 1,000 mls/hr Q1H PRN IV hypotension; Start 08/02/18 at 09:30; Stop 08/02/18 at 17:00; Status DC Sodium Chloride 1,000 ml @ 400 mls/hr Q2H30M PRN IV PATENCY; Start 08/02/18 at 09:30; Stop 08/02/18 at 18:00; Status DC Info (PHARMACY MONITORING -- do not chart) 1 each PRN DAILY PRN MC SEE COMMENTS ; Start 08/02/18 at 09:45; Status UNV Info (PHARMACY MONITORING -- do not chart) 1 each PRN DAILY PRN MC SEE COMMENTS ; Start 08/02/18 at 09:45; Status UNV Active Scripts Active Levemir (Insulin Detemir) 100 Unit/1 Ml Vial 5 Unit SQ QHS 30 Days Hold for < 140mg/dL Aspirin 325 Mg Tablet 1 Tab PO DAILY Reported Amlodipine Besylate 10 Mg Tablet 10 Mg PO DAILY Tylenol (Acetaminophen) 325 Mg Tablet 2 Tab PO PRN Q6HRS PRN Senna (Sennosides) 8.6 Mg Tablet 8.6 Mg PO DAILY Novolog Flexpen (Insulin Aspart) 100 Unit/1 Ml Insuln.pen 1 Unit SQ TIDAC Miralax (Polyethylene Glycol 3350) 17 Gm Powd.pack 1 Packet PO BID Milk Of Magnesia (Magnesium Hydroxide) 400 Mg/5 Ml Oral.susp 30 Ml PO PRN DAILY Duoneb 0.5-3(2.5) Mg/3 Ml (Albuterol/Ipratropium) 3 Ml Ampul.neb 3 Ml NEB TID Fleet Enema (Na Phos,M-B/Na Phos,Di-Ba) 133 Ml Enema 1 Each RC PRN DAILY PRN Dulcolax (Bisacodyl) 10 Mg Supp.rect 10 Mg RC PRN DAILY PRN Docusate Sodium 100 Mg Capsule 1 Cap PO BID Carvedilol (Carvedilol) 12.5 Mg Tablet 12.5 Mg PO BIDWMEALS Protonix (Pantoprazole Sodium) 20 Mg Tablet.dr 40 Mg PO DAILY Voltaren (Diclofenac Sodium) 100 Gm Gel..gram. 1 Gm TP BID Zofran Odt (Ondansetron) 4 Mg Tab.rapdis 4 Mg PO Q6HRS PRN Sensipar (Cinacalcet Hcl) 30 Mg Tablet 1 Tab PO DAILY Renvela (Sevelamer Carbonate) 2.4 Gm Powd.pack 2.4 Gm PO TIDWMEALS Lumigan (Bimatoprost) 2.5 Ml Drops 1 Drop EACHEYE QHS Calcitriol 0.25 Mcg Capsule 1 Cap PO DAILY Nephro-Roland Tablet (Folic Acid/Vitamin B Comp W-C) 0.8 Mg Tablet 1 Tab PO DAILYBFRSUP Vitamin D (Cholecalciferol (Vitamin D3)) 2,000 Unit Capsule 1 Cap PO DAILY Vitals/I & O Vital Sign - Last 24 Hours 08/02/18 08/02/18 08/02/18 08/02/18 08:00 08:05 11:32 11:50 Temp 97.5 97.5 Pulse 75 Resp 18 B/P (MAP) 111/46 (67) Pulse Ox 97 96 O2 Delivery Room Air Room Air Room Air Room Air 08/02/18 08/02/18 08/02/18 08/02/18 13:01 18:32 18:33 19:15 Temp 98.7 98.7 Pulse 75 86 86 87 Resp 19 B/P (MAP) 111/46 117/56 138/62 (87) Pulse Ox 96 O2 Delivery Room Air 08/02/18 08/02/18 08/02/18 08/03/18 19:30 20:15 23:43 03:52 Temp 98.1 97.9 98.1 97.9 Pulse 90 85 Resp 20 18 B/P (MAP) 124/48 (73) 108/55 (72) Pulse Ox 95 100 O2 Delivery Room Air Room Air Room Air Room Air 08/03/18 06:28 Pulse 74 B/P (MAP) 113/57 Intake and Output 08/02/18 08/02/18 08/03/18 14:59 22:59 06:59 Intake Total 0 ml 120 ml Output Total 1 ml Balance -1 ml 0 ml 120 ml MAHSA REYNOSO MD Aug 03, 2018 07:26
[2018-08-03] MEDS: IPRATRPIUM/ALBUTEROL 0.5/2.5MG 3 ML NEBU. NEB SCH ×4 (07:35→19:48)
[2018-08-03] MEDS: INSULIN LISPRO 300 UNITS/3 ML INSULN.PEN. SQ SCH ×4 (08:00→16:53)
[2018-08-03] MEDS: POLYETHYLENE GLYCOL 3350 17 GM PACKET. PO SCH ×2 (09:00→20:50)
[2018-08-03] MEDS: SENNOSIDES 8.6 MG TABLET PO SCH (09:00)
[2018-08-03] MEDS: DICLOFENAC SODIUM 1% TOPICAL GEL 100GM TUBE. TP SCH ×2 (09:00→20:50)
[2018-08-03] MEDS: DOCUSATE SODIUM 100 MG CAPSULE. PO SCH ×2 (09:00→20:50)
[2018-08-03] MEDS: predniSONE 20 MG TABLET PO SCH (09:19)
[2018-08-03] MEDS: ASPIRIN 325 MG TABLET PO SCH (09:19)
[2018-08-03] MEDS: CALCITRIOL 0.25 MCG CAPSULE. PO SCH (09:19)
[2018-08-03] MEDS: LACTOBACILLUS RHAMNOSUS GG 1 CAPSULE. PO SCH ×2 (09:19→20:50)
[2018-08-03] MEDS: guaiFENesin DM 200MG/20MG 10 ML SYRUP PO SCH ×4 (09:19→20:50)
[2018-08-03] MEDS: SEVELAMER CARBONATE 2.4 GM PACKET. PO SCH ×3 (09:19→16:20)
[2018-08-03] MEDS: CHOLECALCIFEROL (VITAMIN D3) 1,000 UNIT TABLET PO SCH (09:19)
[2018-08-03] MEDS: CINACALCET HCL 30 MG TABLET PO SCH (09:19)
[2018-08-03] MEDS: FOLIC/VIT B COMP W-C (RENAL) TABLET. PO SCH (16:19)
[2018-08-03] MEDS: LATANOPROST 0.005% OPHTH SOLUTION 2.5ML BOTTLE. OU SCH (20:50)
[2018-08-03] MEDS: INSULIN GLARGINE 300 UNITS/3 ML INSULN.PEN. SQ SCH (21:03)
[2018-08-04 03:21] VITALS: BP 117/55
[2018-08-04 06:48] LABS: BASO # 0.1 x10^3/uL (0.0-0.2); BASO % 1 % (0-3); EOS # 0.2 x10^3/uL (0.0-0.7); EOS % 2 % (0-3); HEMOGLOBIN 8.9 g/dL (12.0-15.5); LYMPH # 1.1 x10^3/uL (1.0-4.8); LYMPH % 12 % (24-48); MEAN CORPUSCULAR HEMOGLOBIN 36 pg (25-35); MEAN CORPUSCULAR HGB CONC 33 g/dL (31-37); MEAN CORPUSCULAR VOLUME 107 fL (79-100); MONO # 0.9 x10^3/uL (0.0-1.1); MONO % 10 % (0-9); NEUT # 7.4 x10^3uL (1.8-7.7); NEUT % 76 % (31-73); PLATELET COUNT 97 x10^3/uL (140-400); RED BLOOD COUNT 2.51 x10^6/uL (3.50-5.40); RED CELL DISTRIBUTION WIDTH 20.5 % (11.5-14.5); WHITE BLOOD COUNT 9.7 x10^3/uL (4.0-11.0)
[2018-08-04 06:56] LABS: PROTHROMBIN TIME PATIENT 14.9 SEC (11.7-14.0)
[2018-08-04 07:00] VITALS: BP 120/63
[2018-08-04] MEDS: MIDODRINE 2.5 MG TABLET PO SCH ×3 (07:00→17:11)
[2018-08-04 07:06] LABS: ALBUMIN 2.3 g/dL (3.4-5.0); CALCIUM 7.2 mg/dL (8.5-10.1); CREATININE 3.1 mg/dL (0.6-1.0); GFR 14.2; PHOSPHORUS 2.4 mg/dL (2.6-4.7); POTASSIUM 4.4 mmol/L (3.5-5.1)
[2018-08-04] MEDS: INSULIN LISPRO 300 UNITS/3 ML INSULN.PEN. SQ SCH ×3 (08:00→17:45)
[2018-08-04] MEDS: IPRATRPIUM/ALBUTEROL 0.5/2.5MG 3 ML NEBU. NEB SCH ×4 (08:09→20:02)
--- NOTE | 2018-08-04 08:48 | PDOC ---
PROGRESS NOTES Chief Complaint Chief Complaint SOA, fluid overload and treating HCAP ESRD on dialysis-did not finish dialysis Existing AV fistula Hypotension, resolved now hypertension Anemia of chronic disease severe Generalized weakness SNU resident Diabetes type 2 on low-dose insulin uncontrolled// inc lantus to 14 units sq hs symptomatic with lethargy hypotension dysphagia, malnutrition MARKED DEBILITY, WEAKNESS Long-term SNU resident-[facility] Occlusive thrombus in one brachial vein in the left upper arm surrounding an indwelling PICC line, on heparin for clot Dysphagia II diet w/ thin liquids, Hx bleed History of Present Illness History of Present Illness 87-year-old female //admitted from 07/10 thru 07/15, discharge 4 days [employer] to [facility] , 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 Bleeding from HD fistula, Patchy ground glass opacification of the lungs. Dysphagia and aspiration 07/30: She is not speaking much today. her AV fistula started spurting blood again last night. She is still very weak and dejected today. Held heparin and coumadin for AV fistula bleeding > 24 hours. 07/31-08/01: AV fistula bleeding stopped, vascular recommends not reinitiating coumadin or heparin. Tolerated dialysis well 07/31 Plan: She may need to get back on PPN/TPN based on not eating again today. LTAC may actually be most appropriate for her. US RUE: 1. Patent AV fistula in the right upper arm containing a small bit of thrombus. 2. Small hypoechoic process adjacent to the fistula at the lateral antecubital fossa level, most likely representing a small hematoma. PLAN: She has no complaints to me She wants to go back to [facility] I am unsure if she'll qualify for LTAC She is off blood thinners because of bleeding AV fistula, she is bruised up black and blue She does not ambulate She is interested in breakfast Plan She still is in A. fib but rate controlled Continue to hold Coumadin and other anti-coagulation Might need to restart Coumadin in SNU let's say in about 2-4 weeks time pending her course Discussed with RN Discussed with social work-they are screening for LTAC If not approved then we'll just go back to [facility] DNR Vitals Vitals Vital Signs Date Time Temp Pulse Resp B/P (MAP) Pulse Ox O2 Delivery O2 Flow Rate FiO2 08/04/18 08:09 96 Room Air 08/04/18 07:00 98.0 74 16 120/63 (82) 98.0 Physical Exam Physical Exam GENERAL: Propped up in bed, awake, Looks well HEENT: anicteric getting breathing treatment LUNGS: Mild congestion - bilat HEART: S1, S2. ABDOMEN: , soft and nontender. EXTREMITIES: No edema, no cyanosis. SKIN: No generalized rash. Chronic skin changes present in both lower extremities. 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 Motor function and sensation intact. LLE: Mild swelling in forearm and hand, palpable brahial pulse. Motor function and sensation intact.) Skin: Other (as above, no open lesions.) Labs LABS Laboratory Tests Test 08/03/18 11:11 08/03/18 16:36 08/03/18 20:52 08/04/18 06:30 Glucose (Fingerstick) 138 mg/dL (70-99) 169 mg/dL (70-99) 202 mg/dL (70-99) White Blood Count 9.7 x10^3/uL (4.0-11.0) Red Blood Count 2.51 x10^6/uL (3.50-5.40) Hemoglobin 8.9 g/dL (12.0-15.5) Hematocrit 27.0 % (36.0-47.0) Mean Corpuscular Volume 107 fL (79-100) Mean Corpuscular Hemoglobin 36 pg (25-35) Mean Corpuscular Hemoglobin Concent 33 g/dL (31-37) Red Cell Distribution Width 20.5 % (11.5-14.5) Platelet Count 97 x10^3/uL (140-400) Neutrophils (%) (Auto) 76 % (31-73) Lymphocytes (%) (Auto) 12 % (24-48) Monocytes (%) (Auto) 10 % (0-9) Eosinophils (%) (Auto) 2 % (0-3) Basophils (%) (Auto) 1 % (0-3) Neutrophils # (Auto) 7.4 x10^3uL (1.8-7.7) Lymphocytes # (Auto) 1.1 x10^3/uL (1.0-4.8) Monocytes # (Auto) 0.9 x10^3/uL (0.0-1.1) Eosinophils # (Auto) 0.2 x10^3/uL (0.0-0.7) Basophils # (Auto) 0.1 x10^3/uL (0.0-0.2) Prothrombin Time 14.9 SEC (11.7-14.0) Prothromb Time International Ratio 1.2 (0.8-1.1) Sodium Level 138 mmol/L (136-145) Potassium Level 4.4 mmol/L (3.5-5.1) Chloride Level 100 mmol/L (98-107) Carbon Dioxide Level 31 mmol/L (21-32) Anion Gap 7 (6-14) Blood Urea Nitrogen 30 mg/dL (7-20) Creatinine 3.1 mg/dL (0.6-1.0) Estimated GFR (Cockcroft-Gault) 14.2 Glucose Level 114 mg/dL (70-99) Calcium Level 7.2 mg/dL (8.5-10.1) Phosphorus Level 2.4 mg/dL (2.6-4.7) Albumin 2.3 g/dL (3.4-5.0) Test 08/04/18 07:04 Glucose (Fingerstick) 109 mg/dL (70-99) Review of Systems Review of Systems Frail weak, hungry Assessment and Plan Assessmemt and Plan Problems Medical Problems: (1) Congestive heart failure Status: Acute Comment Review of Relevant I have reviewed the following items smith (where applicable) has been applied. Labs Laboratory Tests Test 08/02/18 11:08 08/02/18 18:24 08/02/18 20:10 08/03/18 05:30 Glucose (Fingerstick) 162 mg/dL (70-99) 185 mg/dL (70-99) 200 mg/dL (70-99) White Blood Count 11.9 x10^3/uL (4.0-11.0) Red Blood Count 2.73 x10^6/uL (3.50-5.40) Hemoglobin 9.6 g/dL (12.0-15.5) Hematocrit 29.4 % (36.0-47.0) Mean Corpuscular Volume 108 fL (79-100) Mean Corpuscular Hemoglobin 35 pg (25-35) Mean Corpuscular Hemoglobin Concent 33 g/dL (31-37) Red Cell Distribution Width 20.4 % (11.5-14.5) Platelet Count 117 x10^3/uL (140-400) Neutrophils (%) (Auto) 71 % (31-73) Lymphocytes (%) (Auto) 15 % (24-48) Monocytes (%) (Auto) 11 % (0-9) Eosinophils (%) (Auto) 2 % (0-3) Basophils (%) (Auto) 2 % (0-3) Neutrophils # (Auto) 8.4 x10^3uL (1.8-7.7) Lymphocytes # (Auto) 1.8 x10^3/uL (1.0-4.8) Monocytes # (Auto) 1.3 x10^3/uL (0.0-1.1) Eosinophils # (Auto) 0.2 x10^3/uL (0.0-0.7) Basophils # (Auto) 0.2 x10^3/uL (0.0-0.2) Prothrombin Time 14.4 SEC (11.7-14.0) Prothromb Time International Ratio 1.2 (0.8-1.1) Sodium Level 140 mmol/L (136-145) Potassium Level 3.9 mmol/L (3.5-5.1) Chloride Level 102 mmol/L (98-107) Carbon Dioxide Level 31 mmol/L (21-32) Anion Gap 7 (6-14) Blood Urea Nitrogen 21 mg/dL (7-20) Creatinine 2.3 mg/dL (0.6-1.0) Estimated GFR (Cockcroft-Gault) 20.1 Glucose Level 46 mg/dL (70-99) Calcium Level 7.8 mg/dL (8.5-10.1) Phosphorus Level 2.0 mg/dL (2.6-4.7) Albumin 2.6 g/dL (3.4-5.0) Test 08/03/18 05:32 08/03/18 06:02 08/03/18 07:08 08/03/18 11:11 Glucose (Fingerstick) 31 mg/dL (70-99) 67 mg/dL (70-99) 84 mg/dL (70-99) 138 mg/dL (70-99) Test 08/03/18 16:36 08/03/18 20:52 08/04/18 06:30 08/04/18 07:04 Glucose (Fingerstick) 169 mg/dL (70-99) 202 mg/dL (70-99) 109 mg/dL (70-99) White Blood Count 9.7 x10^3/uL (4.0-11.0) Red Blood Count 2.51 x10^6/uL (3.50-5.40) Hemoglobin 8.9 g/dL (12.0-15.5) Hematocrit 27.0 % (36.0-47.0) Mean Corpuscular Volume 107 fL (79-100) Mean Corpuscular Hemoglobin 36 pg (25-35) Mean Corpuscular Hemoglobin Concent 33 g/dL (31-37) Red Cell Distribution Width 20.5 % (11.5-14.5) Platelet Count 97 x10^3/uL (140-400) Neutrophils (%) (Auto) 76 % (31-73) Lymphocytes (%) (Auto) 12 % (24-48) Monocytes (%) (Auto) 10 % (0-9) Eosinophils (%) (Auto) 2 % (0-3) Basophils (%) (Auto) 1 % (0-3) Neutrophils # (Auto) 7.4 x10^3uL (1.8-7.7) Lymphocytes # (Auto) 1.1 x10^3/uL (1.0-4.8) Monocytes # (Auto) 0.9 x10^3/uL (0.0-1.1) Eosinophils # (Auto) 0.2 x10^3/uL (0.0-0.7) Basophils # (Auto) 0.1 x10^3/uL (0.0-0.2) Prothrombin Time 14.9 SEC (11.7-14.0) Prothromb Time International Ratio 1.2 (0.8-1.1) Sodium Level 138 mmol/L (136-145) Potassium Level 4.4 mmol/L (3.5-5.1) Chloride Level 100 mmol/L (98-107) Carbon Dioxide Level 31 mmol/L (21-32) Anion Gap 7 (6-14) Blood Urea Nitrogen 30 mg/dL (7-20) Creatinine 3.1 mg/dL (0.6-1.0) Estimated GFR (Cockcroft-Gault) 14.2 Glucose Level 114 mg/dL (70-99) Calcium Level 7.2 mg/dL (8.5-10.1) Phosphorus Level 2.4 mg/dL (2.6-4.7) Albumin 2.3 g/dL (3.4-5.0) Laboratory Tests Test 08/03/18 11:11 08/03/18 16:36 08/03/18 20:52 08/04/18 06:30 Glucose (Fingerstick) 138 mg/dL (70-99) 169 mg/dL (70-99) 202 mg/dL (70-99) White Blood Count 9.7 x10^3/uL (4.0-11.0) Red Blood Count 2.51 x10^6/uL (3.50-5.40) Hemoglobin 8.9 g/dL (12.0-15.5) Hematocrit 27.0 % (36.0-47.0) Mean Corpuscular Volume 107 fL (79-100) Mean Corpuscular Hemoglobin 36 pg (25-35) Mean Corpuscular Hemoglobin Concent 33 g/dL (31-37) Red Cell Distribution Width 20.5 % (11.5-14.5) Platelet Count 97 x10^3/uL (140-400) Neutrophils (%) (Auto) 76 % (31-73) Lymphocytes (%) (Auto) 12 % (24-48) Monocytes (%) (Auto) 10 % (0-9) Eosinophils (%) (Auto) 2 % (0-3) Basophils (%) (Auto) 1 % (0-3) Neutrophils # (Auto) 7.4 x10^3uL (1.8-7.7) Lymphocytes # (Auto) 1.1 x10^3/uL (1.0-4.8) Monocytes # (Auto) 0.9 x10^3/uL (0.0-1.1) Eosinophils # (Auto) 0.2 x10^3/uL (0.0-0.7) Basophils # (Auto) 0.1 x10^3/uL (0.0-0.2) Prothrombin Time 14.9 SEC (11.7-14.0) Prothromb Time International Ratio 1.2 (0.8-1.1) Sodium Level 138 mmol/L (136-145) Potassium Level 4.4 mmol/L (3.5-5.1) Chloride Level 100 mmol/L (98-107) Carbon Dioxide Level 31 mmol/L (21-32) Anion Gap 7 (6-14) Blood Urea Nitrogen 30 mg/dL (7-20) Creatinine 3.1 mg/dL (0.6-1.0) Estimated GFR (Cockcroft-Gault) 14.2 Glucose Level 114 mg/dL (70-99) Calcium Level 7.2 mg/dL (8.5-10.1) Phosphorus Level 2.4 mg/dL (2.6-4.7) Albumin 2.3 g/dL (3.4-5.0) Test 08/04/18 07:04 Glucose (Fingerstick) 109 mg/dL (70-99) Medications Current Medications Albuterol/ Ipratropium (Duoneb) 3 ml 1X ONCE NEB Last administered on at 12:57; Start 07/19/18 at 12:45; Stop 07/19/18 at 12:46; Status DC Ondansetron HCl (Zofran) 4 mg PRN Q8HRS PRN IV NAUSEA/VOMITING; Start 07/19/18 at 14:30; Stop 07/20/18 at 14:29; Status DC Acetaminophen (Tylenol) 650 mg PRN Q4HRS PRN PO FEVER; Start 07/19/18 at 14:30 ; Stop 07/20/18 at 08:37; Status DC Nitroglycerin (Nitrostat) 0.4 mg PRN Q5MIN PRN SL CHEST PAIN; Start 07/19/18 at 14:30; Stop 07/20/18 at 14:29; Status DC Albuterol/ Ipratropium (Duoneb) 3 ml RTQID NEB ; Start 07/19/18 at 16:00; Stop 07/20/18 at 15:59; Status Cancel Aspirin (Tracee Aspirin) 325 mg DAILY PO Last administered on 08/03/18 09:19; Start 07/19/18 at 15:00 Carvedilol (Coreg) 3.125 mg BIDWMEALS PO ; Start 07/19/18 at 17:00; Stop at 19:42; Status DC Cinacalcet (Sensipar) 30 mg DAILY PO Last administered on 08/03/18 09:19; Start 07/19/18 at 15:00 Diclofenac Sodium (Voltaren) 1 grisel BID TP Last administered on 08/02/18 08:26; Start 07/19/18 at 21:00 Fentanyl (Duragesic 12mcg/ Hr Patch) 1 patch Q3DAYS TD ; Start 07/19/18 at 15:00 ; Stop 07/19/18 at 19:42; Status DC Vitamin B Complex/ Vitamin C (Bela-Roland) 1 tab DAILYBFRSUP PO Last administered on 08/03/18 16:19; Start 07/19/18 at 17:00 Ondansetron HCl (Zofran Odt) 4 mg PRN Q6HRS PRN PO NAUSEA/VOMITING; Start 07/19 at 14:45 Sevelamer Carbonate (Renvela) 2.4 gm TIDWMEALS PO Last administered on 16:20; Start 07/19/18 at 17:00 Acetaminophen (Tylenol) 500 mg PRN Q6HRS PRN PO MILD PAIN / TEMP; Start at 14:45 Latanoprost (Xalatan) 1 drop QHS OU Last administered on 08/03/18at 20:50; Start 07/19/18 at 21:00 Calcitriol (Rocaltrol) 0.25 mcg DAILY PO Last administered on 08/03/18 09:19; Start 07/20/18 at 09:00 Vitamin D (Vitamin D3) 1,000 unit DAILY PO Last administered on 08/03/18 09:19 ; Start 07/20/18 at 09:00 Hydromorphone HCl (Dilaudid) 2 mg PRN Q8HRS PRN PO MODERATE PAIN, SEVERE PAIN; Start 07/19/18 at 15:00; Stop 07/20/18 at 09:31; Status DC Insulin Glargine (Lantus) 5 units QHS SQ Last administered on 07/26/18at 21:46; Start 07/19/18 at 21:00; Stop 07/27/18 at 10:00; Status DC Non-Formulary Medication (Latanoprost/Pf (Latanoprost 0.005% Eye Drop)) 7.5 ml QHS OP ; Start 07/19/18 at 21:00; Status UNV Pantoprazole Sodium (Protonix) 40 mg DAILYAC PO Last administered on 07/24/18at 11:17; Start 07/20/18 at 07:30; Stop 07/27/18 at 09:10; Status DC Piperacillin Sod/ Tazobactam Sod (Zosyn Per Pharmacy) 1 each PRN DAILY PRN MC SEE COMMENTS; Start 07/19/18 at 14:45; Stop 07/24/18 at 11:11; Status DC Albuterol/ Ipratropium (Duoneb) 3 ml RTQID NEB Last administered on 08/04/18 08 :09; Start 07/19/18 at 16:00 Guaifenesin (Robitussin Dm) 10 ml QID PO Last administered on 08/03/18 09:19; Start 07/19/18 at 17:00 Temazepam (Restoril) 7.5 mg PRN QHS PRN PO INSOMNIA Last administered on at 20:42; Start 07/19/18 at 14:45 Insulin Human Lispro (HumaLOG) 0-7 UNITS TIDWMEALS SQ Last administered on 16:53; Start 07/19/18 at 17:00 Dextrose (Dextrose 50%-Water Syringe) 12.5 gm PRN Q15MIN PRN IV SEE COMMENTS Last administered on 08/03/18 05:43; Start 07/19/18 at 14:45 Piperacillin Sod/ Tazobactam Sod 2.25 gm/Sodium Chloride 50 ml @ 100 mls/hr Q8H IV Last administered on 07/24/18at 00:10; Start 07/19/18 at 16:00; Stop at 08:08; Status DC Furosemide (Lasix) 40 mg 1X ONCE IVP Last administered on 07/19/18at 14:52; Start 07/19/18 at 14:45; Stop 07/19/18 at 14:52; Status DC Docusate Sodium (Colace) 100 mg BID PO Last administered on 08/03/18 20:50; Start 07/19/18 at 21:00 Magnesium Hydroxide (Milk Of Magnesia) 2,400 mg PRN DAILY PRN PO CONSTIPATION; Start 07/19/18 at 19:45 Sodium Monofluorophosphate (Fleet Adult) 133 ml PRN DAILY PRN RC CONSTIPATION; Start 07/19/18 at 19:45; Stop 07/22/18 at 12:17; Status DC Bisacodyl (Dulcolax Supp) 10 mg PRN DAILY PRN IA CONSTIPATION 1ST CHOICE; Start 07/19/18 at 19:45 Polyethylene Glycol (miraLAX PACKET) 17 gm BID PO Last administered on 20:50; Start 07/19/18 at 21:00 Sennosides (Senna) 8.6 mg DAILY PO Last administered on 07/31/18 09:47; Start 07/20/18 at 09:00 Lactobacillus Rhamnosus (Culturelle) 1 cap BID PO Last administered on 20:50; Start 07/20/18 at 21:00 Methylprednisolone Sodium Succinate (SOLU-Medrol 40MG VIAL) 40 mg Q8HRS IV Last administered on 08/01/18 06:05; Start 07/20/18 at 14:00; Stop 08/01/18 at 09 :32; Status DC Albumin Human 250 ml @ 62.5 mls/hr PRN Q6HRS PRN IV for MAP < 65 Last administered on 07/21/18 20:45; Start 07/20/18 at 09:45 Magnesium Sulfate 50 ml @ 25 mls/hr PRN DAILY PRN IV for Mag < 1.7 on am labs; Start 07/20/18 at 09:45 Dopamine HCl/ Dextrose 250 ml @ 6.124 mls/ hr CONT PRN IV SEE I/O RECORD Last administered on 07/24/18 20:37; Start 07/20/18 at 12:00; Stop 07/26/18 at 14:13 ; Status DC Sodium Chloride 1,000 ml @ 1,000 mls/hr Q1H PRN IV hypotension; Start 07/21/18 at 13:00; Stop 07/21/18 at 18:59; Status DC Sodium Chloride 1,000 ml @ 400 mls/hr Q2H30M PRN IV PATENCY; Start 07/21/18 at 13:00; Stop 07/22/18 at 00:59; Status DC Info (PHARMACY MONITORING -- do not chart) 1 each PRN DAILY PRN MC SEE COMMENTS ; Start 07/21/18 at 13:30; Status UNV Info (PHARMACY MONITORING -- do not chart) 1 each PRN DAILY PRN MC SEE COMMENTS ; Start 07/21/18 at 13:30; Stop 07/24/18 at 07:10; Status DC Albumin Human 100 ml @ 100 mls/hr 1X ONCE IV Last administered on 07/21/18at 14:00; Start 07/21/18 at 13:30; Stop 07/21/18 at 14:29; Status DC Sodium Chloride 500 ml @ 500 mls/hr 1X ONCE IV Last administered on at 11:14; Start 07/22/18 at 11:15; Stop 07/22/18 at 12:14; Status DC Digoxin (Lanoxin) 125 mcg QMWF@1600 PO ; Start 07/23/18 at 16:00; Stop 07/23/18 at 16:00; Status DC Digoxin (Lanoxin) 125 mcg 1X ONCE PO Last administered on 07/22/18at 12:26; Start 07/22/18 at 12:00; Stop 07/22/18 at 12:01; Status DC Midodrine (Proamatine) 2.5 mg [id number] PO Last administered on 08/03/18at 16:20; Start 07/22/18 at 13:00 Digoxin (Lanoxin) 125 mcg QTUTHSA PO Last administered on 08/02/18at 18:32; Start 07/24/18 at 16:00 Sodium Chloride 500 ml @ 500 mls/hr 1X ONCE IV Last administered on at 15:42; Start 07/23/18 at 15:00; Stop 07/23/18 at 15:59; Status DC Sodium Chloride 1,000 ml @ 1,000 mls/hr Q1H PRN IV hypotension; Start 07/24/18 at 06:59; Stop 07/24/18 at 12:58; Status DC Albumin Human 200 ml @ 200 mls/hr 1X PRN PRN IV Hypotension Last administered on 07/24/18at 08:09; Start 07/24/18 at 07:00; Stop 07/24/18 at 12:59; Status DC Sodium Chloride 1,000 ml @ 400 mls/hr Q2H30M PRN IV PATENCY; Start 07/24/18 at 06:59; Stop 07/24/18 at 18:58; Status DC Info (PHARMACY MONITORING -- do not chart) 1 each PRN DAILY PRN MC SEE COMMENTS ; Start 07/24/18 at 07:00; Stop 07/25/18 at 11:17; Status DC Info (PHARMACY MONITORING -- do not chart) 1 each PRN DAILY PRN MC SEE COMMENTS ; Start 07/24/18 at 07:00; Status UNV Amoxicillin/ Clavulanate Potassium (Augmentin 500/ 125mg) 1 tab BID PO Last administered on 07/24/18at 11:16; Start 07/24/18 at 09:00; Stop 07/25/18 at 09:21 ; Status DC Amino Acids/ Glycerin/ Electrolytes 1,000 ml @ 50 mls/hr Q20H IV Last administered on 07/28/18at 21:12; Start 07/24/18 at 17:00; Stop 07/29/18 at 08:56; Status DC Heparin Sodium/ Dextrose 500 ml @ 0 mls/hr CONT PRN IV SEE I/O RECORD; Start at 19:30; Status Cancel Heparin Sodium (Porcine) (Heparin Sodium) 6,850 unit 1X ONCE IV Last administered on 07/24/18at 19:38; Start 07/24/18 at 19:30; Stop 07/24/18 at 19:33 ; Status DC Heparin Sodium/ Dextrose 500 ml @ 0 mls/hr CONT PRN IV SEE I/O RECORD; Start at 19:30; Status UNV Heparin Sodium (Porcine) (Heparin Sodium) 2,550 unit PRN Q6HRS PRN IV FOR UFH LEVEL LESS THAN 0.2; Start 07/24/18 at 19:30 Heparin Sodium (Porcine) (Heparin Sodium) 1,300 unit PRN Q6HRS PRN IV FOR UFH LEVEL 0.2 - 0.29 Last administered on 07/25/18at 23:25; Start 07/24/18 at 19:30 Heparin Sodium/ Dextrose 500 ml @ 0 mls/hr CONT PRN IV SEE I/O RECORD Last administered on 07/30/18at 04:32; Start 07/24/18 at 19:45 Sodium Chloride 1,000 ml @ 1,000 mls/hr Q1H PRN IV hypotension; Start 07/25/18 at 08:22; Stop 07/25/18 at 14:21; Status DC Albumin Human 200 ml @ 200 mls/hr 1X ONCE IV Last administered on 07/25/18at 08:49; Start 07/25/18 at 08:30; Stop 07/25/18 at 09:29; Status DC Diphenhydramine HCl (Benadryl) 25 mg 1X PRN PRN IV ITCHING; Start 07/25/18 at 08:30; Stop 07/26/18 at 08:29; Status DC Diphenhydramine HCl (Benadryl) 25 mg 1X PRN PRN IV ITCHING; Start 07/25/18 at 08:30; Stop 07/26/18 at 08:29; Status DC Sodium Chloride 1,000 ml @ 400 mls/hr Q2H30M PRN IV PATENCY; Start 07/25/18 at 08:22; Stop 07/25/18 at 20:21; Status DC Info (PHARMACY MONITORING -- do not chart) 1 each PRN DAILY PRN MC SEE COMMENTS ; Start 07/25/18 at 08:30; Stop 07/26/18 at 14:10; Status DC Piperacillin Sod/ Tazobactam Sod 2.25 gm/Sodium Chloride 50 ml @ 100 mls/hr Q8HRS IV Last administered on 07/28/18at 05:07; Start 07/25/18 at 09:30; Stop 07/28/18 at 09:31; Status DC Info (Anti-Coagulation Monitoring By Pharmacy) 1 each PRN DAILY PRN MC SEE COMMENTS Last administered on 07/31/18at 15:00; Start 07/25/18 at 11:30 Info (PHARMACY MONITORING -- do not chart) 1 each PRN DAILY PRN MC SEE COMMENTS ; Start 07/26/18 at 08:15; Status Cancel Info (PHARMACY MONITORING -- do not chart) 1 each PRN DAILY PRN MC SEE COMMENTS ; Start 07/26/18 at 08:15; Stop 07/26/18 at 08:17; Status DC Barium Sulfate (Varibar Thin Liquid Apple) 148 gm 1X ONCE PO Last administered on 07/26/18 13:30; Start 07/26/18 at 13:30; Stop 07/26/18 at 13:31 ; Status DC Pantoprazole Sodium (PROTONIX VIAL for IV PUSH) 40 mg DAILYAC IVP Last administered on 07/28/18at 07:54; Start 07/27/18 at 11:30; Stop 07/28/18 at 10:43; Status DC Insulin Glargine (Lantus) 9 units QHS SQ Last administered on 07/27/18at 20:52; Start 07/27/18 at 21:00; Stop 07/28/18 at 14:03; Status DC Insulin Human Lispro (HumaLOG) 4 units TIDWMEALS SQ Last administered on 18:45; Start 07/27/18 at 12:00; Stop 08/03/18 at 12:24; Status DC Pantoprazole Sodium (Protonix) 40 mg DAILYAC PO Last administered on 08/03/18at 06:28; Start 07/29/18 at 07:30 Insulin Glargine (Lantus) 14 units QHS SQ Last administered on 08/02/18 20:17; Start 07/28/18 at 21:00; Stop 08/03/18 at 12:24; Status DC Warfarin Sodium (Coumadin) 2.5 mg DAILY16 PO ; Start 07/29/18 at 16:00; Stop 07/29 at 16:00; Status DC Warfarin Sodium (Coumadin Per Pharmacy) 1 each PRN DAILY PRN MC SEE COMMENTS Last administered on 07/31/18 14:57; Start 07/29/18 at 09:00 Warfarin Sodium (Coumadin) 2 mg 1X WARF ONCE PO Last administered on 07/29/18 18:27; Start 07/29/18 at 16:00; Stop 07/29/18 at 16:01; Status DC Sodium Chloride 1,000 ml @ 1,000 mls/hr Q1H PRN IV hypotension; Start 07/29/18 at 13:50; Stop 07/29/18 at 19:49; Status DC Info (PHARMACY MONITORING -- do not chart) 1 each PRN DAILY PRN MC SEE COMMENTS ; Start 07/29/18 at 14:00; Status Cancel Info (PHARMACY MONITORING -- do not chart) 1 each PRN DAILY PRN MC SEE COMMENTS ; Start 07/29/18 at 14:00; Status UNV Warfarin Sodium (Coumadin) 2 mg 1X WARF ONCE PO ; Start 07/30/18 at 16:00; Stop 07/30/18 at 16:01; Status DC Sodium Chloride 1,000 ml @ 1,000 mls/hr Q1H PRN IV hypotension; Start 07/31/18 at 09:54; Stop 07/31/18 at 15:53; Status DC Albumin Human 200 ml @ 200 mls/hr 1X PRN PRN IV Hypotension; Start 07/31/18 at 10:00; Stop 07/31/18 at 15:59; Status DC Sodium Chloride 1,000 ml @ 400 mls/hr Q2H30M PRN IV PATENCY; Start 07/31/18 at 09:54; Stop 07/31/18 at 21:53; Status DC Info (PHARMACY MONITORING -- do not chart) 1 each PRN DAILY PRN MC SEE COMMENTS ; Start 07/31/18 at 10:00; Status UNV Info (PHARMACY MONITORING -- do not chart) 1 each PRN DAILY PRN MC SEE COMMENTS ; Start 07/31/18 at 10:00 Warfarin Sodium (Coumadin) 2 mg 1X WARF ONCE PO ; Start 07/31/18 at 16:00; Stop 07/31/18 at 16:01; Status Cancel Insulin Human Lispro (HumaLOG) 7 units 1X ONCE SQ Last administered on at 23:20; Start 07/31/18 at 22:15; Stop 07/31/18 at 22:16; Status DC Prednisone (Prednisone) 20 mg DAILY PO Last administered on 08/03/18at 09:19; Start 08/02/18 at 09:00 Warfarin Sodium (Coumadin - No Dose Today) 1 each 1X WARF ONCE MC ; Start at 16:00; Stop 08/01/18 at 17:29; Status DC Sodium Chloride 1,000 ml @ 1,000 mls/hr Q1H PRN IV hypotension; Start 08/02/18 at 09:30; Stop 08/02/18 at 17:00; Status DC Sodium Chloride 1,000 ml @ 400 mls/hr Q2H30M PRN IV PATENCY; Start 08/02/18 at 09:30; Stop 08/02/18 at 18:00; Status DC Info (PHARMACY MONITORING -- do not chart) 1 each PRN DAILY PRN MC SEE COMMENTS ; Start 08/02/18 at 09:45; Status UNV Info (PHARMACY MONITORING -- do not chart) 1 each PRN DAILY PRN MC SEE COMMENTS ; Start 08/02/18 at 09:45; Status UNV Insulin Glargine (Lantus) 8 units QHS SQ Last administered on 08/03/18at 21:03; Start 08/03/18 at 21:00 Active Scripts Active Levemir (Insulin Detemir) 100 Unit/1 Ml Vial 5 Unit SQ QHS 30 Days Hold for < 140mg/dL Aspirin 325 Mg Tablet 1 Tab PO DAILY Reported Amlodipine Besylate 10 Mg Tablet 10 Mg PO DAILY Tylenol (Acetaminophen) 325 Mg Tablet 2 Tab PO PRN Q6HRS PRN Senna (Sennosides) 8.6 Mg Tablet 8.6 Mg PO DAILY Novolog Flexpen (Insulin Aspart) 100 Unit/1 Ml Insuln.pen 1 Unit SQ TIDAC Miralax (Polyethylene Glycol 3350) 17 Gm Powd.pack 1 Packet PO BID Milk Of Magnesia (Magnesium Hydroxide) 400 Mg/5 Ml Oral.susp 30 Ml PO PRN DAILY Duoneb 0.5-3(2.5) Mg/3 Ml (Albuterol/Ipratropium) 3 Ml Ampul.neb 3 Ml NEB TID Fleet Enema (Na Phos,M-B/Na Phos,Di-Ba) 133 Ml Enema 1 Each RC PRN DAILY PRN Dulcolax (Bisacodyl) 10 Mg Supp.rect 10 Mg RC PRN DAILY PRN Docusate Sodium 100 Mg Capsule 1 Cap PO BID Carvedilol (Carvedilol) 12.5 Mg Tablet 12.5 Mg PO BIDWMEALS Protonix (Pantoprazole Sodium) 20 Mg Tablet.dr 40 Mg PO DAILY Voltaren (Diclofenac Sodium) 100 Gm Gel..gram. 1 Gm TP BID Zofran Odt (Ondansetron) 4 Mg Tab.rapdis 4 Mg PO Q6HRS PRN Sensipar (Cinacalcet Hcl) 30 Mg Tablet 1 Tab PO DAILY Renvela (Sevelamer Carbonate) 2.4 Gm Powd.pack 2.4 Gm PO TIDWMEALS Lumigan (Bimatoprost) 2.5 Ml Drops 1 Drop EACHEYE QHS Calcitriol 0.25 Mcg Capsule 1 Cap PO DAILY Nephro-Roland Tablet (Folic Acid/Vitamin B Comp W-C) 0.8 Mg Tablet 1 Tab PO DAILYBFRSUP Vitamin D (Cholecalciferol (Vitamin D3)) 2,000 Unit Capsule 1 Cap PO DAILY Vitals/I & O Vital Sign - Last 24 Hours 08/03/18 08/03/18 08/03/18 08/03/18 11:37 11:47 13:08 14:46 Temp 98.4 97.4 98.4 97.4 Pulse 70 70 70 Resp 18 18 B/P (MAP) 114/50 (71) 114/50 114/50 (71) Pulse Ox 100 100 O2 Delivery Room Air Room Air Room Air 08/03/18 08/03/18 08/03/18 08/03/18 14:47 16:09 16:20 19:15 Temp 97.4 98.2 97.4 98.2 Pulse 89 89 73 Resp 18 18 B/P (MAP) 127/67 (87) 127/67 165/45 (85) Pulse Ox 99 98 O2 Delivery Room Air Room Air Room Air 08/03/18 08/03/18 08/03/18 08/04/18 19:49 20:45 23:30 03:21 Temp 98.3 98.0 98.3 98.0 Pulse 80 83 Resp 17 17 B/P (MAP) 133/46 (75) 117/55 (75) Pulse Ox 100 98 98 O2 Delivery Room Air Room Air Room Air Room Air 08/04/18 08/04/18 07:00 08:09 Temp 98.0 98.0 Pulse 74 Resp 16 B/P (MAP) 120/63 (82) Pulse Ox 99 96 O2 Delivery Room Air Room Air Intake and Output 08/03/18 08/03/18 08/04/18 15:00 23:00 07:00 Intake Total 120 ml 60 ml 100 ml Balance 120 ml 60 ml 100 ml ERINN ROCKWELL MD Aug 04, 2018 08:48
[2018-08-04] MEDS ORDERED: MIDO2.5T PO (08:51)
[2018-08-04] MEDS ORDERED: DIGO125T PO (08:51)
[2018-08-04] MEDS ORDERED: INSU100I13 SQ (08:51)
[2018-08-04] MEDS ORDERED: TEMA7.5C2 PO (08:51)
[2018-08-04] MEDS: ASPIRIN 325 MG TABLET PO SCH (08:52)
[2018-08-04] MEDS: predniSONE 20 MG TABLET PO SCH (08:52)
[2018-08-04] MEDS: LACTOBACILLUS RHAMNOSUS GG 1 CAPSULE. PO SCH ×2 (08:52→21:30)
[2018-08-04] MEDS: SENNOSIDES 8.6 MG TABLET PO SCH (08:52)
[2018-08-04] MEDS: CHOLECALCIFEROL (VITAMIN D3) 1,000 UNIT TABLET PO SCH (08:52)
[2018-08-04] MEDS: CALCITRIOL 0.25 MCG CAPSULE. PO SCH (08:53)
[2018-08-04] MEDS: CINACALCET HCL 30 MG TABLET PO SCH (08:53)
[2018-08-04] MEDS: guaiFENesin DM 200MG/20MG 10 ML SYRUP PO SCH ×4 (08:53→21:00)
[2018-08-04] MEDS: SEVELAMER CARBONATE 2.4 GM PACKET. PO SCH ×3 (08:53→17:11)
[2018-08-04] MEDS: POLYETHYLENE GLYCOL 3350 17 GM PACKET. PO SCH ×2 (08:54→21:00)
--- NOTE | 2018-08-04 08:54 | SNU/HH DC ---
DISCHARGE ORDERS DISCHARGE INFORMATION: DISCHARGE DATE: Aug 04, 2018 FINAL DIAGNOSIS Problems Medical Problems: (1) Congestive heart failure Status: Acute CONDITION ON DISCHARGE: Stable CODE STATUS: Code Status: DNR/DNI LONG TERM: SNF STAY <30 DAYS: No HOSPICE: HOSPICE: No HOSPICE EVAL & TREAT: No LTAC: ADMIT TO LTAC: No POST DISCHARGE ORDERS: ACTIVITY ORDERS: Activity as tolerated WEIGHT BEARING STATUS: As tolerated BATHING ORDERS: Shower-keep dressing dry DIET AFTER DISCHARGE: Renal WOUND/INCISION CARE: Ice to area for comfort CHECKS AFTER DISCHARGE: CHECKS AFTER DISCHARGE: Check blood press - daily, Check blood sugar, ac/hs, Weigh Yourself Daily FOLLOW-UP: PHYSICIAN FOLLOW-UP: PCP re BP - she is off anti hypertensives now and on midodrine; ADDITIONAL FOLLOW-UP: cards re chronic a fib on dig with hypotension, Off coumadin bec of AV fist TREATMENT/EQUIPMENT ORDERS: ADAPTIVE EQUIPMENT NEEDED: Hemiwalker, Wheelchair Physical Therapy For: Evalulation/Treatment Occupational Therapy For: Evaluation/Treatment Speech Language Pathology For: Swallow Cognition DISCHARGE MEDICATIONS: Home Meds Active Scripts Insulin Glargine,Hum.rec.anlog (LANTUS SOLOSTAR) 100 Unit/1 Ml Insuln.pen, 8 UNITS SQ QHS for dm MDD 1, #30 EACH Prov:ERINN ROCKWELL MD 08/04/18 Temazepam (RESTORIL) 7.5 Mg Capsule, 7.5 MG PO PRN QHS PRN for INSOMNIA MDD 1, # 30 CAP Prov:ERINN ROCKWELL MD 08/04/18 Digoxin (DIGOXIN) 125 Mcg Tablet, 125 MCG PO QTUTHSA for a fib MDD 1, #90 TAB Prov:ERINN ROCKWELL MD 08/04/18 Midodrine Hcl (MIDODRINE HCL) 2.5 Mg Tablet, 2.5 MG PO [id number] for hypotension MDD 1, #90 TAB Prov:ERINN ROCKWELL MD 08/04/18 Insulin Detemir (LEVEMIR) 100 Unit/1 Ml Vial, 5 UNIT SQ QHS for dm for 30 Days, #30 VIAL Hold for < 140mg/dL Prov:MAHSA REYNOSO MD 07/15/18 Aspirin (ASPIRIN) 325 Mg Tablet, 1 TAB PO DAILY, #30 TAB 0 Refills Prov:SIERRA HOBBS MD 04/16/18 Reported Medications Amlodipine Besylate (AMLODIPINE BESYLATE) 10 Mg Tablet, 10 MG PO DAILY for HTN, TAB 07/22/18 Acetaminophen (TYLENOL) 325 Mg Tablet, 2 TAB PO PRN Q6HRS PRN for PAIN, #30 TAB 07/22/18 Sennosides (SENNA) 8.6 Mg Tablet, 8.6 MG PO DAILY for constipation, TAB 07/19/18 Insulin Aspart (NOVOLOG FLEXPEN) 100 Unit/1 Ml Insuln.pen, 1 UNIT SQ TIDAC for dm, SYR 07/19/18 Polyethylene Glycol 3350 (MIRALAX) 17 Gm Powd.pack, 1 PACKET PO BID for constipation, #30 PACKET 3 Refills 07/19/18 Magnesium Hydroxide (MILK OF MAGNESIA) 400 Mg/5 Ml Oral.susp, 30 ML PO PRN DAILY for bowel care 07/19/18 Ipratropium/Albuterol Sulfate (DUONEB 0.5-3(2.5) MG/3 ML) 3 Ml Ampul.neb, 3 ML NEB TID for cough, EACH 07/19/18 Na Phos,M-B/Na Phos,Di-Ba (FLEET ENEMA) 133 Ml Enema, 1 EACH RC PRN DAILY PRN for CONSTIPATION, #1 BOTTLE 07/19/18 Bisacodyl (DULCOLAX) 10 Mg Supp.rect, 10 MG RC PRN DAILY PRN for CONSTIPATION, SUPP.RECT 0 Refills 07/19/18 Docusate Sodium (DOCUSATE SODIUM) 100 Mg Capsule, 1 CAP PO BID for constipation , #30 CAP 07/19/18 Carvedilol (CARVEDILOL ) 12.5 Mg Tablet, 12.5 MG PO BIDWMEALS for CARDIAC, TAB 07/19/18 Pantoprazole Sodium (PROTONIX) 20 Mg Tablet.dr, 40 MG PO DAILY, TAB 11/06/17 Diclofenac Sodium (VOLTAREN) 100 Gm Gel..gram., 1 GM TP BID, #100 GM 2 Refills 11/06/17 Ondansetron (ZOFRAN ODT) 4 Mg Tab.rapdis, 4 MG PO Q6HRS PRN for NAUSEA/VOMITING , TAB 10/30/17 Cinacalcet Hcl (SENSIPAR) 30 Mg Tablet, 1 TAB PO DAILY, #30 TAB 11 Refills 02/04/17 Sevelamer Carbonate (RENVELA) 2.4 Gm Powd.pack, 2.4 GM PO TIDWMEALS, PACKET 02/04/17 Bimatoprost (LUMIGAN) 2.5 Ml Drops, 1 DROP EACHEYE QHS, #7.5 ML 3 Refills 02/04/17 Calcitriol (CALCITRIOL) 0.25 Mcg Capsule, 1 CAP PO DAILY for calcium replacement , #30 CAP 5 Refills 01/18/17 Folic Acid/Vitamin B Comp W-C (NEPHRO-RADHA TABLET) 0.8 Mg Tablet, 1 TAB PO DAILYBFRSUP, #90 TAB 3 Refills 11/26/15 Cholecalciferol (Vitamin D3) (VITAMIN D) 2,000 Unit Capsule, 1 CAP PO DAILY, # 30 CAP 3 Refills 11/26/15 ERINN ROCKWELL MD Aug 04, 2018 08:54
[2018-08-04] MEDS: DOCUSATE SODIUM 100 MG CAPSULE. PO SCH ×2 (08:55→21:00)
[2018-08-04] MEDS: PANTOPRAZOLE 40 MG TABLET.DR. PO SCH (08:56)
[2018-08-04] MEDS: DICLOFENAC SODIUM 1% TOPICAL GEL 100GM TUBE. TP SCH ×2 (08:56→17:40)
--- NOTE | 2018-08-04 08:58 | PDOC3 ---
Discharge Summary Visit Information Date of Admission: Jul 19, 2018 Date of Discharge: Aug 04, 2018 Admitting Diagnosis Comment: SOA, fluid overload and treating HCAP ESRD on dialysis-did not finish dialysis Existing AV fistula Hypotension, resolved now hypertension Anemia of chronic disease severe Generalized weakness SNU resident Diabetes type 2 on low-dose insulin uncontrolled// inc lantus to 14 units sq hs symptomatic with lethargy hypotension dysphagia, malnutrition MARKED DEBILITY, WEAKNESS Long-term SNU resident-HCR Occlusive thrombus in one brachial vein in the left upper arm surrounding an indwelling PICC line, on heparin for clot Dysphagia II diet w/ thin liquids, Hx bleed Final Diagnosis Problems Medical Problems: (1) Congestive heart failure Status: Acute Brief Hospital Course Allergies Allergies Coded Allergies Type Severity Reaction Last Updated Verified No Known Medication Allergies Allergy Unknown 08/01/18 Yes morphine Adverse Reaction Intermediate HALLUCINATIONS 08/13/16 Yes Vital Signs Vital Signs Date Time Temp Pulse Resp B/P (MAP) Pulse Ox O2 Delivery O2 Flow Rate FiO2 08/04/18 08:09 96 Room Air 08/04/18 07:00 98.0 74 16 120/63 (82) 98.0 Lab Results Laboratory Tests Test 08/02/18 11:08 08/02/18 18:24 08/02/18 20:10 08/03/18 05:30 Glucose (Fingerstick) 162 mg/dL (70-99) 185 mg/dL (70-99) 200 mg/dL (70-99) White Blood Count 11.9 x10^3/uL (4.0-11.0) Red Blood Count 2.73 x10^6/uL (3.50-5.40) Hemoglobin 9.6 g/dL (12.0-15.5) Hematocrit 29.4 % (36.0-47.0) Mean Corpuscular Volume 108 fL (79-100) Mean Corpuscular Hemoglobin 35 pg (25-35) Mean Corpuscular Hemoglobin Concent 33 g/dL (31-37) Red Cell Distribution Width 20.4 % (11.5-14.5) Platelet Count 117 x10^3/uL (140-400) Neutrophils (%) (Auto) 71 % (31-73) Lymphocytes (%) (Auto) 15 % (24-48) Monocytes (%) (Auto) 11 % (0-9) Eosinophils (%) (Auto) 2 % (0-3) Basophils (%) (Auto) 2 % (0-3) Neutrophils # (Auto) 8.4 x10^3uL (1.8-7.7) Lymphocytes # (Auto) 1.8 x10^3/uL (1.0-4.8) Monocytes # (Auto) 1.3 x10^3/uL (0.0-1.1) Eosinophils # (Auto) 0.2 x10^3/uL (0.0-0.7) Basophils # (Auto) 0.2 x10^3/uL (0.0-0.2) Prothrombin Time 14.4 SEC (11.7-14.0) Prothromb Time International Ratio 1.2 (0.8-1.1) Sodium Level 140 mmol/L (136-145) Potassium Level 3.9 mmol/L (3.5-5.1) Chloride Level 102 mmol/L (98-107) Carbon Dioxide Level 31 mmol/L (21-32) Anion Gap 7 (6-14) Blood Urea Nitrogen 21 mg/dL (7-20) Creatinine 2.3 mg/dL (0.6-1.0) Estimated GFR (Cockcroft-Gault) 20.1 Glucose Level 46 mg/dL (70-99) Calcium Level 7.8 mg/dL (8.5-10.1) Phosphorus Level 2.0 mg/dL (2.6-4.7) Albumin 2.6 g/dL (3.4-5.0) Test 08/03/18 05:32 08/03/18 06:02 08/03/18 07:08 08/03/18 11:11 Glucose (Fingerstick) 31 mg/dL (70-99) 67 mg/dL (70-99) 84 mg/dL (70-99) 138 mg/dL (70-99) Test 08/03/18 16:36 08/03/18 20:52 08/04/18 06:30 08/04/18 07:04 Glucose (Fingerstick) 169 mg/dL (70-99) 202 mg/dL (70-99) 109 mg/dL (70-99) White Blood Count 9.7 x10^3/uL (4.0-11.0) Red Blood Count 2.51 x10^6/uL (3.50-5.40) Hemoglobin 8.9 g/dL (12.0-15.5) Hematocrit 27.0 % (36.0-47.0) Mean Corpuscular Volume 107 fL (79-100) Mean Corpuscular Hemoglobin 36 pg (25-35) Mean Corpuscular Hemoglobin Concent 33 g/dL (31-37) Red Cell Distribution Width 20.5 % (11.5-14.5) Platelet Count 97 x10^3/uL (140-400) Neutrophils (%) (Auto) 76 % (31-73) Lymphocytes (%) (Auto) 12 % (24-48) Monocytes (%) (Auto) 10 % (0-9) Eosinophils (%) (Auto) 2 % (0-3) Basophils (%) (Auto) 1 % (0-3) Neutrophils # (Auto) 7.4 x10^3uL (1.8-7.7) Lymphocytes # (Auto) 1.1 x10^3/uL (1.0-4.8) Monocytes # (Auto) 0.9 x10^3/uL (0.0-1.1) Eosinophils # (Auto) 0.2 x10^3/uL (0.0-0.7) Basophils # (Auto) 0.1 x10^3/uL (0.0-0.2) Prothrombin Time 14.9 SEC (11.7-14.0) Prothromb Time International Ratio 1.2 (0.8-1.1) Sodium Level 138 mmol/L (136-145) Potassium Level 4.4 mmol/L (3.5-5.1) Chloride Level 100 mmol/L (98-107) Carbon Dioxide Level 31 mmol/L (21-32) Anion Gap 7 (6-14) Blood Urea Nitrogen 30 mg/dL (7-20) Creatinine 3.1 mg/dL (0.6-1.0) Estimated GFR (Cockcroft-Gault) 14.2 Glucose Level 114 mg/dL (70-99) Calcium Level 7.2 mg/dL (8.5-10.1) Phosphorus Level 2.4 mg/dL (2.6-4.7) Albumin 2.3 g/dL (3.4-5.0) Laboratory Tests Test 4/7/19 11:11 08/03/18 16:36 08/03/18 20:52 08/04/18 06:30 Glucose (Fingerstick) 138 mg/dL (70-99) 169 mg/dL (70-99) 202 mg/dL (70-99) White Blood Count 9.7 x10^3/uL (4.0-11.0) Red Blood Count 2.51 x10^6/uL (3.50-5.40) Hemoglobin 8.9 g/dL (12.0-15.5) Hematocrit 27.0 % (36.0-47.0) Mean Corpuscular Volume 107 fL (79-100) Mean Corpuscular Hemoglobin 36 pg (25-35) Mean Corpuscular Hemoglobin Concent 33 g/dL (31-37) Red Cell Distribution Width 20.5 % (11.5-14.5) Platelet Count 97 x10^3/uL (140-400) Neutrophils (%) (Auto) 76 % (31-73) Lymphocytes (%) (Auto) 12 % (24-48) Monocytes (%) (Auto) 10 % (0-9) Eosinophils (%) (Auto) 2 % (0-3) Basophils (%) (Auto) 1 % (0-3) Neutrophils # (Auto) 7.4 x10^3uL (1.8-7.7) Lymphocytes # (Auto) 1.1 x10^3/uL (1.0-4.8) Monocytes # (Auto) 0.9 x10^3/uL (0.0-1.1) Eosinophils # (Auto) 0.2 x10^3/uL (0.0-0.7) Basophils # (Auto) 0.1 x10^3/uL (0.0-0.2) Prothrombin Time 14.9 SEC (11.7-14.0) Prothromb Time International Ratio 1.2 (0.8-1.1) Sodium Level 138 mmol/L (136-145) Potassium Level 4.4 mmol/L (3.5-5.1) Chloride Level 100 mmol/L (98-107) Carbon Dioxide Level 31 mmol/L (21-32) Anion Gap 7 (6-14) Blood Urea Nitrogen 30 mg/dL (7-20) Creatinine 3.1 mg/dL (0.6-1.0) Estimated GFR (Cockcroft-Gault) 14.2 Glucose Level 114 mg/dL (70-99) Calcium Level 7.2 mg/dL (8.5-10.1) Phosphorus Level 2.4 mg/dL (2.6-4.7) Albumin 2.3 g/dL (3.4-5.0) Test 08/04/18 07:04 Glucose (Fingerstick) 109 mg/dL (70-99) Brief Hospital Course Ms. Hua is a 87 old female who is a long-term [facility] resident, came in on July 19, 2018 because of combination of SOA/fluid overload and HCAP. She is dialysis patient. But her course remarkable for hypotension needing ICU and now off beta leeanna and Norvasc and instead now, on midodrine. Comanagement with pulmonary and cardiology. Respiratory status can be tenuous. Patient is appropriately DNR. In any case, we are screening for LTAC but if she will not qualify then she will go to SNU Course also remarkable for bleeding AV fistula, she is on warfarin for chronic A. fib, bedbound immobility. She basically ambulates mostly via wheelchair. Significant bleeding needed to hold Coumadin, needed IR consult but I do not think she needed any intervention to stop the bleeding. So far off Coumadin because of the bleeding and significant anemia. Developed some occlusive thrombus on the PICC line area. We will go to back to [facility] SNU DNR with no BP meds and no Coumadin. Might need to restart Coumadin in the future say 4 weeks down the line depending on her SNU course as she is a high risk for developing clots given overall clinical picture Discussed with RN Patient seen and examined Consults performed GI, cardiology, pulmonary Procedures performed multiple tests dc 32 mins, 2 notes today Discharge Information Condition at Discharge: Stable Disposition/Orders: Other (snu) Scheduled Amlodipine Besylate (Amlodipine Besylate) 10 Mg Tablet, 10 MG PO DAILY for HTN, (Reported) Entered as Reported by: REYNOLD WALLER on 07/22/181514 Last Action: New Order on 07/22/181514 by REYNOLD WALLER Aspirin (Aspirin) 325 Mg Tablet, 1 TAB PO DAILY, #30 Ref 0 Prescribed by: SIERRA HOBBS MD on 04/16/18 1749 Last Action: Continued on 07/19/181432 by ERINN ROCKWELL Bimatoprost (Lumigan) 2.5 Ml Drops, 1 DROP EACHEYE QHS, #7.5 Ref 3 (Reported) Entered as Reported by: MUNDO TODD on 02/04/174 Last Action: Converted on 07/19/181432 by ERINN ROCKWELL Calcitriol (Calcitriol) 0.25 Mcg Capsule, 1 CAP PO DAILY for calcium replacement , #30 Ref 5 (Reported) Entered as Reported by: ESTEE MYERS on 01/18/17 1516 Last Action: Converted on 07/19/181432 by ERINN ROCKWELL Carvedilol (Carvedilol ) 12.5 Mg Tablet, 12.5 MG PO BIDWMEALS for CARDIAC, ( Reported) Entered as Reported by: THOMPSON LEYVA on 07/19/18 170 Last Action: New Order on 07/19/181699 by THOMPSON LEYVA Cholecalciferol (Vitamin D3) (Vitamin D) 2,000 Unit Capsule, 1 CAP PO DAILY, # 30 Ref 3 (Reported) Entered as Reported by: HECTOR CLEVELAND on 11/26/151950 Last Action: Converted on 07/19/181432 by ERINN ROCKWELL Cinacalcet Hcl (Sensipar) 30 Mg Tablet, 1 TAB PO DAILY, #30 Ref 11 (Reported) Entered as Reported by: MUNDO TODD on 02/04/171833 Last Action: Continued on 07/19/181432 by ERINN ROCKWELL Diclofenac Sodium (Voltaren) 100 Gm Gel..gram., 1 GM TP BID, #100 Ref 2 ( Reported) Entered as Reported by: COLLEEN PAREDES on 11/06/17 0755 Last Action: Continued on 07/19/181432 by ERINN ROCKWELL Digoxin (Digoxin) 125 Mcg Tablet, 125 MCG PO QTUTHSA for a fib MDD 1, #90 Prescribed by: ERINN ROCKWELL on 08/04/18 0851 Docusate Sodium (Docusate Sodium) 100 Mg Capsule, 1 CAP PO BID for constipation , #30 (Reported) Entered as Reported by: THOMPSON LEYVA on 07/19/181699 Last Action: Continued on 07/19/181936 by THOMPSON LEYVA Folic Acid/Vitamin B Comp W-C (Nephro-Roland Tablet) 0.8 Mg Tablet, 1 TAB PO DAILYBFRSUP, #90 Ref 3 (Reported) Entered as Reported by: HECTOR CLEVELAND on 11/26/151950 Last Action: Continued on 07/19/181432 by ERINN ROCKWELL Insulin Aspart (Novolog Flexpen) 100 Unit/1 Ml Insuln.pen, 1 UNIT SQ TIDAC for dm, (Reported) Entered as Reported by: THOMPSON LEYVA on 07/19/181699 Last Action: New Order on 07/19/181699 by THOMPSON LEYVA Insulin Detemir (Levemir) 100 Unit/1 Ml Vial, 5 UNIT SQ QHS for dm for 30 Days, #30 Hold for < 140mg/dL Prescribed by: MAHSA REYNOSO MD on 07/15/18 1329 Last Action: Converted on 07/19/181432 by ERINN ROCKWELL Insulin Glargine,Hum.rec.anlog (Lantus Solostar) 100 Unit/1 Ml Insuln.pen, 8 UNITS SQ QHS for dm MDD 1, #30 Prescribed by: ERINN ROCKWELL on 08/04/18 0851 Ipratropium/Albuterol Sulfate (Duoneb 0.5-3(2.5) Mg/3 Ml) 3 Ml Ampul.neb, 3 ML NEB TID for cough, (Reported) Entered as Reported by: THOMPSON LEYVA on 07/19/181699 Last Action: New Order on 07/19/181699 by THOMPSON LEYVA Magnesium Hydroxide (Milk Of Magnesia) 400 Mg/5 Ml Oral.susp, 30 ML PO PRN DAILY for bowel care, (Reported) Entered as Reported by: THOMPSON LEYVA on 07/19/181699 Last Action: Continued on 07/19/181936 by THOMPSON LEYVA Midodrine Hcl (Midodrine Hcl) 2.5 Mg Tablet, 2.5 MG PO [id number] for hypotension MDD 1, #90 Prescribed by: ERINN ROCKWELL on 08/04/18 0851 Pantoprazole Sodium (Protonix) 20 Mg Tablet.dr, 40 MG PO DAILY, (Reported) Entered as Reported by: COLLEEN PAREDES on 11/06/17 0755 Last Action: Converted on 07/19/181432 by ERINN ROCKWELL Polyethylene Glycol 3350 (Miralax) 17 Gm Powd.pack, 1 PACKET PO BID for constipation, #30 Ref 3 (Reported) Entered as Reported by: THOMPSON LEYVA on 07/19/181699 Last Action: Converted on 07/19/181936 by THOMPSON LEYVA Sennosides (Senna) 8.6 Mg Tablet, 8.6 MG PO DAILY for constipation, (Reported) Entered as Reported by: THOMPSON LEYVA on 07/19/181699 Last Action: Converted on 07/19/181936 by THOMPSON LEYVA Sevelamer Carbonate (Renvela) 2.4 Gm Powd.pack, 2.4 GM PO TIDWMEALS, (Reported) Entered as Reported by: MUNDO TODD on 02/04/17 183 Last Action: Continued on 07/19/181432 by ERINN ROCKWELL Scheduled PRN Acetaminophen (Tylenol) 325 Mg Tablet, 2 TAB PO PRN Q6HRS PRN for PAIN, #30 ( Reported) Entered as Reported by: REYNOLD WALLER on 07/22/181514 Last Action: New Order on 07/22/181514 by REYNOLD WALLER Bisacodyl (Dulcolax) 10 Mg Supp.rect, 10 MG RC PRN DAILY PRN for CONSTIPATION, Ref 0 (Reported) Entered as Reported by: THOMPSON LEYVA on 07/19/181699 Last Action: Converted on 07/19/181936 by THOMPSON LEYVA Na Phos,M-B/Na Phos,Di-Ba (Fleet Enema) 133 Ml Enema, 1 EACH RC PRN DAILY PRN for CONSTIPATION, #1 (Reported) Entered as Reported by: THOMPSON LEYVA on 07/19/181699 Last Action: Continued on 07/19/181936 by THOMPSON LEYVA Ondansetron (Zofran Odt) 4 Mg Tab.rapdis, 4 MG PO Q6HRS PRN for NAUSEA/VOMITING, (Reported) Entered as Reported by: SONG PATTON on 10/30/17 0831 Last Action: Continued on 07/19/18 1433 by ERINN ROCKWELL Temazepam (Restoril) 7.5 Mg Capsule, 7.5 MG PO PRN QHS PRN for INSOMNIA MDD 1, # 30 Prescribed by: ERINN ROCKWELL on 08/04/18 0851 ERINN ROCKWELL MD Aug 04, 2018 08:58
--- NOTE | 2018-08-04 09:04 | PDOC ---
Subjective: Subjective: Offers no complaints - says eating and stooling without issue. Objective: Objective: Has DC orders. Vital Signs: Vital Signs Date Time Temp Pulse Resp B/P (MAP) Pulse Ox O2 Delivery O2 Flow Rate FiO2 08/04/18 08:09 96 Room Air 08/04/18 07:00 98.0 74 16 120/63 (82) 98.0 Labs: Laboratory Tests Test 08/03/18 11:11 08/03/18 16:36 08/03/18 20:52 08/04/18 06:30 Glucose (Fingerstick) 138 mg/dL 169 mg/dL 202 mg/dL White Blood Count 9.7 x10^3/uL Red Blood Count 2.51 x10^6/uL Hemoglobin 8.9 g/dL Hematocrit 27.0 % Mean Corpuscular Volume 107 fL Mean Corpuscular Hemoglobin 36 pg Mean Corpuscular Hemoglobin Concent 33 g/dL Red Cell Distribution Width 20.5 % Platelet Count 97 x10^3/uL Neutrophils (%) (Auto) 76 % Lymphocytes (%) (Auto) 12 % Monocytes (%) (Auto) 10 % Eosinophils (%) (Auto) 2 % Basophils (%) (Auto) 1 % Neutrophils # (Auto) 7.4 x10^3uL Lymphocytes # (Auto) 1.1 x10^3/uL Monocytes # (Auto) 0.9 x10^3/uL Eosinophils # (Auto) 0.2 x10^3/uL Basophils # (Auto) 0.1 x10^3/uL Prothrombin Time 14.9 SEC Prothromb Time International Ratio 1.2 Sodium Level 138 mmol/L Potassium Level 4.4 mmol/L Chloride Level 100 mmol/L Carbon Dioxide Level 31 mmol/L Anion Gap 7 Blood Urea Nitrogen 30 mg/dL Creatinine 3.1 mg/dL Estimated GFR (Cockcroft-Gault) 14.2 Glucose Level 114 mg/dL Calcium Level 7.2 mg/dL Phosphorus Level 2.4 mg/dL Albumin 2.3 g/dL Test 08/04/18 07:04 Glucose (Fingerstick) 109 mg/dL PE: GEN: NAD LUNGS: CTAB HEART: RRR ABD: S/ND/NT NEURO/PSYCH: A & O 3 A/P: Chronic anemia, macrocytic - no GI bleeding -- DC per primary, would continue PPI. REDD NAVARRO Aug 04, 2018 09:04
[2018-08-04 11:07] VITALS: BP 108/55
--- NOTE | 2018-08-04 11:26 | NUR ---
SS following up with discharge planning. SS phoned and faxed clinical updates to [facility], ; fax [phone]. SS awaiting appeal decision at this time. [facility] declined correction unit stating that pt was too acute for SNU. SS awaiting appeal determination from [facility] for LTAC and will proceed accordingly. Pt's RN notified.
--- NOTE | 2018-08-04 12:16 | PDOC ---
SUBJECTIVE ROS Stable, no new concerns voiced OBJECTIVE Vital Signs Vital Signs Date Time Temp Pulse Resp B/P (MAP) Pulse Ox O2 Delivery O2 Flow Rate FiO2 08/04/18 12:06 96 Room Air 08/04/18 11:07 97.6 76 16 108/55 (72) 97.6 08/04/18 08:00 2.0 I & 0 Intake and Output 08/04/18 06:59 Intake Total 280 ml Balance 280 ml Intake Oral 280 ml # Bowel Movements 2 PHYSICAL EXAM Physical Exam Physical Exam Physical Exam General: Alert, No acute distress Lungs: Crackles (less crackles) Cardiovascular: S1, S2 Abdomen: Soft Neuro Exam: Alert Extremities: Other (EDEMA L) Skin: Warm DIAGNOSIS/ASSESSMENT Assessment & Plan ESRD- TTS Currently no indication for HD today Chronic anemia Start Aranesp Dyspnea- On RA On Abx for HCAP Dysphagia, malnutrition US Rt UE -- 1. Patent AV fistula in the right upper arm containing a small bit of thrombus. 2. Small hypoechoic process adjacent to the fistula at the lateral antecubital fossa level, most likely representing a small hematoma. COMMENT/RELEVANT DATA Meds Current Medications Medications (Trade) Dose Ordered Sig/Homa Start Time Stop Time Status Last Admin Dose Admin Acetaminophen (Tylenol) 500 mg PRN Q6HRS PRN 07/19/18 14:45 Albumin Human 200 ml @ 200 mls/hr 1X PRN PRN 07/31/18 10:00 07/31/18 15:59 DC Albuterol/ Ipratropium (Duoneb) 3 ml RTQID 07/19/18 16:00 08/04/18 12:06 3 ML Amino Acids/ Glycerin/ Electrolytes 1,000 ml @ 50 mls/hr Q20H 07/24/18 17:00 07/29/18 08:56 DC 07/28/18 21:12 50 MLS/HR Amoxicillin/ Clavulanate Potassium (Augmentin 500/ 125mg) 1 tab BID 07/24/18 09:00 07/25/18 09:21 DC 07/24/18 11:16 1 TAB Aspirin (Tracee Aspirin) 325 mg DAILY 07/19/18 15:00 08/04/18 08:52 325 MG Barium Sulfate (Varibar Thin Liquid Apple) 148 gm 1X ONCE 07/26/18 13:30 07/26/18 13:31 DC 07/26/18 13:30 148 GM Bisacodyl (Dulcolax Supp) 10 mg PRN DAILY PRN 07/19/18 19:45 Calcitriol (Rocaltrol) 0.25 mcg DAILY 07/20/18 09:00 08/04/18 08:53 0.25 MCG Carvedilol (Coreg) 3.125 mg BIDWMEALS 07/19/18 17:00 07/19/18 19:42 DC Cinacalcet (Sensipar) 30 mg DAILY 07/19/18 15:00 08/04/18 08:53 30 MG Dextrose (Dextrose 50%-Water Syringe) 12.5 gm PRN Q15MIN PRN 07/19/18 14:45 08/03/18 05:43 12.5 GM Diclofenac Sodium (Voltaren) 1 grisel BID 07/19/18 21:00 08/04/18 08:56 1 GRISEL Digoxin (Lanoxin) 125 mcg QTUTHSA 07/24/18 16:00 08/02/18 18:32 125 MCG Diphenhydramine HCl (Benadryl) 25 mg 1X PRN PRN 07/25/18 08:30 07/26/18 08:29 DC Docusate Sodium (Colace) 100 mg BID 07/19/18 21:00 08/03/18 20:50 100 MG Dopamine HCl/ Dextrose 250 ml @ 6.124 mls/ hr CONT PRN 07/20/18 12:00 07/26/18 14:13 DC 07/24/18 20:37 30.618 MLS/HR Fentanyl (Duragesic 12mcg/ Hr Patch) 1 patch Q3DAYS 07/19/18 15:00 07/19/18 19:42 DC Furosemide (Lasix) 40 mg 1X ONCE 07/19/18 14:45 07/19/18 14:52 DC 07/19/18 14:52 40 MG Guaifenesin (Robitussin Dm) 10 ml QID 07/19/18 17:00 08/04/18 08:53 10 ML Heparin Sodium (Porcine) (Heparin Sodium) 1,300 unit PRN Q6HRS PRN 3/28/19 19:30 07/25/18 23:25 1,300 UNIT Heparin Sodium/ Dextrose 500 ml @ 0 mls/hr CONT PRN 07/24/18 19:45 07/30/18 04:32 18.8 MLS/HR Hydromorphone HCl (Dilaudid) 2 mg PRN Q8HRS PRN 07/19/18 15:00 07/20/18 09:31 DC Info (Anti-Coagulation Monitoring By Pharmacy) 1 each PRN DAILY PRN 07/25/18 11:30 07/31/18 15:00 1 EACH Info (PHARMACY MONITORING -- do not chart) 1 each PRN DAILY PRN 08/02/18 09:45 UNV Insulin Glargine (Lantus) 8 units QHS 08/03/18 21:00 08/03/18 21:03 8 UNITS Insulin Human Lispro (HumaLOG) 7 units 1X ONCE 07/31/18 22:15 07/31/18 22:16 DC 07/31/18 23:20 7 UNITS Lactobacillus Rhamnosus (Culturelle) 1 cap BID 07/20/18 21:00 08/04/18 08:52 1 CAP Latanoprost (Xalatan) 1 drop QHS 07/19/18 21:00 08/03/18 20:50 1 DROP Magnesium Hydroxide (Milk Of Magnesia) 2,400 mg PRN DAILY PRN 07/19/18 19:45 Magnesium Sulfate 50 ml @ 25 mls/hr PRN DAILY PRN 07/20/18 09:45 Methylprednisolone Sodium Succinate (SOLU-Medrol 40MG VIAL) 40 mg Q8HRS 07/20/18 14:00 08/01/18 09:32 DC 08/01/18 06:05 40 MG Midodrine (Proamatine) 2.5 mg [id number] 07/22/18 13:00 08/03/18 16:20 2.5 MG Nitroglycerin (Nitrostat) 0.4 mg PRN Q5MIN PRN 07/19/18 14:30 07/20/18 14:29 DC Non-Formulary Medication (Latanoprost/Pf (Latanoprost 0.005% Eye Drop)) 7.5 ml QHS 07/19/18 21:00 UNV Ondansetron HCl (Zofran Odt) 4 mg PRN Q6HRS PRN 07/19/18 14:45 Ondansetron HCl (Zofran) 4 mg PRN Q8HRS PRN 07/19/18 14:30 07/20/18 14:29 DC Pantoprazole Sodium (PROTONIX VIAL for IV PUSH) 40 mg DAILYAC 07/27/18 11:30 07/28/18 10:43 DC 07/28/18 07:54 40 MG Pantoprazole Sodium (Protonix) 40 mg DAILYAC 07/29/18 07:30 08/04/18 08:56 40 MG Piperacillin Sod/ Tazobactam Sod (Zosyn Per Pharmacy) 1 each PRN DAILY PRN 07/19/18 14:45 07/24/18 11:11 DC Piperacillin Sod/ Tazobactam Sod 2.25 gm/Sodium Chloride 50 ml @ 100 mls/hr Q8HRS 07/25/18 09:30 07/28/18 09:31 DC 07/28/18 05:07 100 MLS/HR Polyethylene Glycol (miraLAX PACKET) 17 gm BID 07/19/18 21:00 08/04/18 08:54 17 GM Prednisone (Prednisone) 20 mg DAILY 08/02/18 09:00 08/04/18 08:52 20 MG Sennosides (Senna) 8.6 mg DAILY 07/20/18 09:00 08/04/18 08:52 8.6 MG Sevelamer Carbonate (Renvela) 2.4 gm TIDWMEALS 07/19/18 17:00 08/04/18 08:53 2.4 GM Sodium Monofluorophosphate (Fleet Adult) 133 ml PRN DAILY PRN 07/19/18 19:45 07/22/18 12:17 DC Sodium Chloride 1,000 ml @ 400 mls/hr Q2H30M PRN 08/02/18 09:30 08/02/18 18:00 DC Temazepam (Restoril) 7.5 mg PRN QHS PRN 07/19/18 14:45 07/22/18 20:42 7.5 MG Vitamin B Complex/ Vitamin C (Bela-Roland) 1 tab DAILYBFRSUP 07/19/18 17:00 08/03/18 16:19 1 TAB Vitamin D (Vitamin D3) 1,000 unit DAILY 07/20/18 09:00 08/04/18 08:52 1,000 UNIT Warfarin Sodium (Coumadin - No Dose Today) 1 each 1X WARF ONCE 08/01/18 16:00 08/01/18 17:29 DC Warfarin Sodium (Coumadin Per Pharmacy) 1 each PRN DAILY PRN 07/29/18 09:00 07/31/18 14:57 1 EACH Warfarin Sodium (Coumadin) 2 mg 1X WARF ONCE 07/31/18 16:00 07/31/18 16:01 Cancel Lab Laboratory Tests Test 08/03/18 16:36 08/03/18 20:52 08/04/18 06:30 08/04/18 07:04 Glucose (Fingerstick) 169 mg/dL (70-99) 202 mg/dL (70-99) 109 mg/dL (70-99) White Blood Count 9.7 x10^3/uL (4.0-11.0) Red Blood Count 2.51 x10^6/uL (3.50-5.40) Hemoglobin 8.9 g/dL (12.0-15.5) Hematocrit 27.0 % (36.0-47.0) Mean Corpuscular Volume 107 fL (79-100) Mean Corpuscular Hemoglobin 36 pg (25-35) Mean Corpuscular Hemoglobin Concent 33 g/dL (31-37) Red Cell Distribution Width 20.5 % (11.5-14.5) Platelet Count 97 x10^3/uL (140-400) Neutrophils (%) (Auto) 76 % (31-73) Lymphocytes (%) (Auto) 12 % (24-48) Monocytes (%) (Auto) 10 % (0-9) Eosinophils (%) (Auto) 2 % (0-3) Basophils (%) (Auto) 1 % (0-3) Neutrophils # (Auto) 7.4 x10^3uL (1.8-7.7) Lymphocytes # (Auto) 1.1 x10^3/uL (1.0-4.8) Monocytes # (Auto) 0.9 x10^3/uL (0.0-1.1) Eosinophils # (Auto) 0.2 x10^3/uL (0.0-0.7) Basophils # (Auto) 0.1 x10^3/uL (0.0-0.2) Prothrombin Time 14.9 SEC (11.7-14.0) Prothromb Time International Ratio 1.2 (0.8-1.1) Sodium Level 138 mmol/L (136-145) Potassium Level 4.4 mmol/L (3.5-5.1) Chloride Level 100 mmol/L (98-107) Carbon Dioxide Level 31 mmol/L (21-32) Anion Gap 7 (6-14) Blood Urea Nitrogen 30 mg/dL (7-20) Creatinine 3.1 mg/dL (0.6-1.0) Estimated GFR (Cockcroft-Gault) 14.2 Glucose Level 114 mg/dL (70-99) Calcium Level 7.2 mg/dL (8.5-10.1) Phosphorus Level 2.4 mg/dL (2.6-4.7) Albumin 2.3 g/dL (3.4-5.0) Vitamin B12 Level 1052 pg/mL (247-911) Test 08/04/18 11:26 Glucose (Fingerstick) 148 mg/dL (70-99) Results All relevant outside records, renal labs, imaging studies, telemetry/EKG's were reviewed. ASHU GARDINER MD Aug 04, 2018 12:16
--- NOTE | 2018-08-04 13:01 | PDOC ---
PULMONARY PROGRESS NOTES Subjective is tired, has occ cough, sob better. Vitals Vital Signs Date Time Temp Pulse Resp B/P (MAP) Pulse Ox O2 Delivery O2 Flow Rate FiO2 08/04/18 12:35 76 108/55 08/04/18 12:06 96 Room Air 08/04/18 11:07 97.6 16 97.6 08/04/18 08:00 2.0 ROS: No Nausea, No Chest Pain, No Abdominal Pain, No Increase Cough General: Alert, No acute distress Lungs: Clear Cardiovascular: S1, S2 Abdomen: Soft Neuro Exam: Alert Extremities: Other (EDEMA L) Skin: Warm Labs Laboratory Tests Test 08/02/18 18:24 08/02/18 20:10 08/03/18 05:30 08/03/18 05:32 Glucose (Fingerstick) 185 mg/dL (70-99) 200 mg/dL (70-99) 31 mg/dL (70-99) White Blood Count 11.9 x10^3/uL (4.0-11.0) Red Blood Count 2.73 x10^6/uL (3.50-5.40) Hemoglobin 9.6 g/dL (12.0-15.5) Hematocrit 29.4 % (36.0-47.0) Mean Corpuscular Volume 108 fL (79-100) Mean Corpuscular Hemoglobin 35 pg (25-35) Mean Corpuscular Hemoglobin Concent 33 g/dL (31-37) Red Cell Distribution Width 20.4 % (11.5-14.5) Platelet Count 117 x10^3/uL (140-400) Neutrophils (%) (Auto) 71 % (31-73) Lymphocytes (%) (Auto) 15 % (24-48) Monocytes (%) (Auto) 11 % (0-9) Eosinophils (%) (Auto) 2 % (0-3) Basophils (%) (Auto) 2 % (0-3) Neutrophils # (Auto) 8.4 x10^3uL (1.8-7.7) Lymphocytes # (Auto) 1.8 x10^3/uL (1.0-4.8) Monocytes # (Auto) 1.3 x10^3/uL (0.0-1.1) Eosinophils # (Auto) 0.2 x10^3/uL (0.0-0.7) Basophils # (Auto) 0.2 x10^3/uL (0.0-0.2) Prothrombin Time 14.4 SEC (11.7-14.0) Prothromb Time International Ratio 1.2 (0.8-1.1) Sodium Level 140 mmol/L (136-145) Potassium Level 3.9 mmol/L (3.5-5.1) Chloride Level 102 mmol/L (98-107) Carbon Dioxide Level 31 mmol/L (21-32) Anion Gap 7 (6-14) Blood Urea Nitrogen 21 mg/dL (7-20) Creatinine 2.3 mg/dL (0.6-1.0) Estimated GFR (Cockcroft-Gault) 20.1 Glucose Level 46 mg/dL (70-99) Calcium Level 7.8 mg/dL (8.5-10.1) Phosphorus Level 2.0 mg/dL (2.6-4.7) Albumin 2.6 g/dL (3.4-5.0) Test 08/03/18 06:02 08/03/18 07:08 08/03/18 11:11 08/03/18 16:36 Glucose (Fingerstick) 67 mg/dL (70-99) 84 mg/dL (70-99) 138 mg/dL (70-99) 169 mg/dL (70-99) Test 08/03/18 20:52 08/04/18 06:30 08/04/18 07:04 08/04/18 11:26 Glucose (Fingerstick) 202 mg/dL (70-99) 109 mg/dL (70-99) 148 mg/dL (70-99) White Blood Count 9.7 x10^3/uL (4.0-11.0) Red Blood Count 2.51 x10^6/uL (3.50-5.40) Hemoglobin 8.9 g/dL (12.0-15.5) Hematocrit 27.0 % (36.0-47.0) Mean Corpuscular Volume 107 fL (79-100) Mean Corpuscular Hemoglobin 36 pg (25-35) Mean Corpuscular Hemoglobin Concent 33 g/dL (31-37) Red Cell Distribution Width 20.5 % (11.5-14.5) Platelet Count 97 x10^3/uL (140-400) Neutrophils (%) (Auto) 76 % (31-73) Lymphocytes (%) (Auto) 12 % (24-48) Monocytes (%) (Auto) 10 % (0-9) Eosinophils (%) (Auto) 2 % (0-3) Basophils (%) (Auto) 1 % (0-3) Neutrophils # (Auto) 7.4 x10^3uL (1.8-7.7) Lymphocytes # (Auto) 1.1 x10^3/uL (1.0-4.8) Monocytes # (Auto) 0.9 x10^3/uL (0.0-1.1) Eosinophils # (Auto) 0.2 x10^3/uL (0.0-0.7) Basophils # (Auto) 0.1 x10^3/uL (0.0-0.2) Prothrombin Time 14.9 SEC (11.7-14.0) Prothromb Time International Ratio 1.2 (0.8-1.1) Sodium Level 138 mmol/L (136-145) Potassium Level 4.4 mmol/L (3.5-5.1) Chloride Level 100 mmol/L (98-107) Carbon Dioxide Level 31 mmol/L (21-32) Anion Gap 7 (6-14) Blood Urea Nitrogen 30 mg/dL (7-20) Creatinine 3.1 mg/dL (0.6-1.0) Estimated GFR (Cockcroft-Gault) 14.2 Glucose Level 114 mg/dL (70-99) Calcium Level 7.2 mg/dL (8.5-10.1) Phosphorus Level 2.4 mg/dL (2.6-4.7) Albumin 2.3 g/dL (3.4-5.0) Vitamin B12 Level 1052 pg/mL (247-911) Laboratory Tests Test 08/03/18 16:36 08/03/18 20:52 08/04/18 06:30 08/04/18 07:04 Glucose (Fingerstick) 169 mg/dL (70-99) 202 mg/dL (70-99) 109 mg/dL (70-99) White Blood Count 9.7 x10^3/uL (4.0-11.0) Red Blood Count 2.51 x10^6/uL (3.50-5.40) Hemoglobin 8.9 g/dL (12.0-15.5) Hematocrit 27.0 % (36.0-47.0) Mean Corpuscular Volume 107 fL (79-100) Mean Corpuscular Hemoglobin 36 pg (25-35) Mean Corpuscular Hemoglobin Concent 33 g/dL (31-37) Red Cell Distribution Width 20.5 % (11.5-14.5) Platelet Count 97 x10^3/uL (140-400) Neutrophils (%) (Auto) 76 % (31-73) Lymphocytes (%) (Auto) 12 % (24-48) Monocytes (%) (Auto) 10 % (0-9) Eosinophils (%) (Auto) 2 % (0-3) Basophils (%) (Auto) 1 % (0-3) Neutrophils # (Auto) 7.4 x10^3uL (1.8-7.7) Lymphocytes # (Auto) 1.1 x10^3/uL (1.0-4.8) Monocytes # (Auto) 0.9 x10^3/uL (0.0-1.1) Eosinophils # (Auto) 0.2 x10^3/uL (0.0-0.7) Basophils # (Auto) 0.1 x10^3/uL (0.0-0.2) Prothrombin Time 14.9 SEC (11.7-14.0) Prothromb Time International Ratio 1.2 (0.8-1.1) Sodium Level 138 mmol/L (136-145) Potassium Level 4.4 mmol/L (3.5-5.1) Chloride Level 100 mmol/L (98-107) Carbon Dioxide Level 31 mmol/L (21-32) Anion Gap 7 (6-14) Blood Urea Nitrogen 30 mg/dL (7-20) Creatinine 3.1 mg/dL (0.6-1.0) Estimated GFR (Cockcroft-Gault) 14.2 Glucose Level 114 mg/dL (70-99) Calcium Level 7.2 mg/dL (8.5-10.1) Phosphorus Level 2.4 mg/dL (2.6-4.7) Albumin 2.3 g/dL (3.4-5.0) Vitamin B12 Level 1052 pg/mL (247-911) Test 08/04/18 11:26 Glucose (Fingerstick) 148 mg/dL (70-99) Medications Active Scripts Medications Dose Route/Sig Max Daily Dose Days Date Category Dose Instructions Senna (Sennosides) 8.6 Mg Tablet 8.6 Mg PO DAILY 07/19/18 Reported Novolog Flexpen (Insulin Aspart) 100 Unit/1 Ml Insuln.pen 1 Unit SQ TIDAC 07/19/18 Reported Miralax (Polyethylene Glycol 3350) 17 Gm Powd.pack 1 Packet PO BID 07/19/18 Reported Milk Of Magnesia (Magnesium Hydroxide) 400 Mg/5 Ml Oral.susp 30 Ml PO PRN DAILY 07/19/18 Reported Duoneb 0.5-3(2.5) Mg/3 Ml (Albuterol/Ipratropium) 3 Ml Ampul.neb 3 Ml NEB TID 07/19/18 Reported Fleet Enema (Na Phos,M-B/Na Phos,Di-Ba) 133 Ml Enema 1 Each RC PRN DAILY PRN 07/19/18 Reported Dulcolax (Bisacodyl) 10 Mg Supp.rect 10 Mg RC PRN DAILY PRN 07/19/18 Reported Docusate Sodium 100 Mg Capsule 1 Cap PO BID 07/19/18 Reported Carvedilol (Carvedilol) 12.5 Mg Tablet 12.5 Mg PO BIDWMEALS 07/19/18 Reported Levemir (Insulin Detemir) 100 Unit/1 Ml Vial 5 Unit SQ QHS 30 07/15/18 Rx Hold for < 140mg/dL Acetaminophen 500 Mg Tablet 500 Mg PO PRN Q6HRS PRN 30 07/14/18 Rx Aspirin 325 Mg Tablet 1 Tab PO DAILY 04/16/18 Rx Protonix (Pantoprazole Sodium) 20 Mg Tablet.dr 40 Mg PO DAILY 11/06/17 Reported Voltaren (Diclofenac Sodium) 100 Gm Gel..gram. 1 Gm TP BID 11/06/17 Reported Zofran Odt (Ondansetron) 4 Mg Tab.rapdis 4 Mg PO Q6HRS PRN 10/30/17 Reported Sensipar (Cinacalcet Hcl) 30 Mg Tablet 1 Tab PO DAILY 02/04/17 Reported Renvela (Sevelamer Carbonate) 2.4 Gm Powd.pack 2.4 Gm PO TIDWMEALS 02/04/17 Reported Lumigan (Bimatoprost) 2.5 Ml Drops 1 Drop EACHEYE QHS 02/04/17 Reported Calcitriol 0.25 Mcg Capsule 1 Cap PO DAILY 01/18/17 Reported Nephro-Roland Tablet (Folic Acid/Vitamin B Comp W-C) 0.8 Mg Tablet 1 Tab PO DAILYBFRSUP 11/26/15 Reported Vitamin D (Cholecalciferol (Vitamin D3)) 2,000 Unit Capsule 1 Cap PO DAILY 11/26/15 Reported Impression . IMPRESSION: 1. Dyspnea with cough and mild bronchospasm POA, likely related to viral pneumonitis, triggering bronchospasm POA. She may have adult onset reactive airway disease. resolved now 2. Recent abnormal CT chest on 07/11 suggesting upper lobe viral pneumonitis. She has some ground glass infiltrates at that time. 3. End-stage renal disease, on hemodialysis. 4. Underlying obesity. 5. Chronic hypoxic respiratory failure, on home oxygen 2 liters. 6 HYPOTENSION IMPROVED 7. LEONIE EXT BRACHIAL CLOT Plan . RESP STATUS IMPROVED AWAITING LTAC EVAL/ APPROVAL CONTINUE THE SAME OFF HEPARIN/ COUMADIN FOR BRACHIAL CLOT DUE TO FISTULA BLEEDING. NO FURTHER AC PER VASCULAR/ REPEAT DOPPLERS TODAY OF LEONIE EXT prednisone 20 mg daily BD adan w rn, pt GIAN SHAFFER MD Aug 04, 2018 13:01
[2018-08-04 15:02] VITALS: BP 122/68
--- NOTE | 2018-08-04 16:10 | RAD ---
Left upper extremity venous duplex study 08/04/2018 Clinical History: Follow-up, left upper extremity DVT COMPARISON STUDY: Left upper extremity venous duplex ultrasound July 23, 2018 Technique: Using a combination of real time ultrasound imaging and color-flow and pulse Doppler imaging techniques, including spectral analysis, graded compression and augmentation, duplex evaluation of the deep venous system of the left upper extremity was performed. Multiple images were obtained. Findings: There is no sonographic evidence of deep venous thrombosis involving the visualized deep venous structures of the left upper extremity. Left brachial thrombus has resolved since comparison study. Impression: No evidence of deep venous thrombosis involving the left upper extremity Electronically signed by: Wally Rascon MD (08/04/2018 4:06 PM) [id number]
[2018-08-04] MEDS: FOLIC/VIT B COMP W-C (RENAL) TABLET. PO SCH (17:11)
[2018-08-04 19:33] VITALS: BP 107/53
[2018-08-04] MEDS ORDERED: DARBEPOETIN ALFA 60 MCG/0.3 ML DISP.SYRIN. SQ SCH (21:00)
[2018-08-04] MEDS: LATANOPROST 0.005% OPHTH SOLUTION 2.5ML BOTTLE. OU SCH (21:30)
[2018-08-04] MEDS: INSULIN GLARGINE 300 UNITS/3 ML INSULN.PEN. SQ SCH (21:37)
[2018-08-04 22:51] VITALS: BP 120/58
[2018-08-05 02:37] VITALS: BP 126/59
[2018-08-05 06:04] LABS: PROTHROMBIN TIME PATIENT 14.3 SEC (11.7-14.0)
[2018-08-05 07:00] VITALS: BP 126/58
[2018-08-05] MEDS ORDERED: IV NORMAL SALINE 1000ML BAG 1,000 ML IV PRN ×2 (07:17)
[2018-08-05] MEDS ORDERED: 0.9 % SODIUM CHLORIDE 10 ML DISP.SYRIN. IV PRN ×2 (07:30)
[2018-08-05] MEDS ORDERED: ALBUMIN HUMAN 25% 200 ML IV PRN (07:30)
[2018-08-05] MEDS ORDERED: DIALYSIS PATIENT. MC PRN ×2 (07:30)
[2018-08-05] MEDS: guaiFENesin DM 200MG/20MG 10 ML SYRUP PO SCH ×4 (07:51→21:29)
[2018-08-05] MEDS: CINACALCET HCL 30 MG TABLET PO SCH (07:52)
[2018-08-05] MEDS: PANTOPRAZOLE 40 MG TABLET.DR. PO SCH (07:52)
[2018-08-05] MEDS: LACTOBACILLUS RHAMNOSUS GG 1 CAPSULE. PO SCH ×2 (07:52→21:29)
[2018-08-05] MEDS: CHOLECALCIFEROL (VITAMIN D3) 1,000 UNIT TABLET PO SCH (07:52)
[2018-08-05] MEDS: predniSONE 20 MG TABLET PO SCH (07:52)
[2018-08-05] MEDS: ASPIRIN 325 MG TABLET PO SCH (07:52)
[2018-08-05] MEDS: MIDODRINE 2.5 MG TABLET PO SCH ×3 (07:53→16:38)
[2018-08-05] MEDS: SEVELAMER CARBONATE 2.4 GM PACKET. PO SCH ×3 (07:53→16:37)
[2018-08-05] MEDS: INSULIN LISPRO 300 UNITS/3 ML INSULN.PEN. SQ SCH (08:00)
[2018-08-05] MEDS: IPRATRPIUM/ALBUTEROL 0.5/2.5MG 3 ML NEBU. NEB SCH ×4 (08:25→19:30)
--- NOTE | 2018-08-05 08:33 | PDOC ---
PULMONARY PROGRESS NOTES Subjective is tired, has occ cough, sob better. Vitals Vital Signs Date Time Temp Pulse Resp B/P (MAP) Pulse Ox O2 Delivery O2 Flow Rate FiO2 08/05/18 08:28 100 Room Air 08/05/18 07:53 80 126/58 08/05/18 07:00 97.7 20 2.0 97.7 ROS: No Nausea, No Chest Pain, No Abdominal Pain, No Increase Cough General: Alert, No acute distress Lungs: Clear Cardiovascular: S1, S2 Abdomen: Soft Neuro Exam: Alert Extremities: Other (EDEMA L) Skin: Warm Labs Laboratory Tests Test 08/03/18 11:11 08/03/18 16:36 08/03/18 20:52 08/04/18 06:30 Glucose (Fingerstick) 138 mg/dL (70-99) 169 mg/dL (70-99) 202 mg/dL (70-99) White Blood Count 9.7 x10^3/uL (4.0-11.0) Red Blood Count 2.51 x10^6/uL (3.50-5.40) Hemoglobin 8.9 g/dL (12.0-15.5) Hematocrit 27.0 % (36.0-47.0) Mean Corpuscular Volume 107 fL (79-100) Mean Corpuscular Hemoglobin 36 pg (25-35) Mean Corpuscular Hemoglobin Concent 33 g/dL (31-37) Red Cell Distribution Width 20.5 % (11.5-14.5) Platelet Count 97 x10^3/uL (140-400) Neutrophils (%) (Auto) 76 % (31-73) Lymphocytes (%) (Auto) 12 % (24-48) Monocytes (%) (Auto) 10 % (0-9) Eosinophils (%) (Auto) 2 % (0-3) Basophils (%) (Auto) 1 % (0-3) Neutrophils # (Auto) 7.4 x10^3uL (1.8-7.7) Lymphocytes # (Auto) 1.1 x10^3/uL (1.0-4.8) Monocytes # (Auto) 0.9 x10^3/uL (0.0-1.1) Eosinophils # (Auto) 0.2 x10^3/uL (0.0-0.7) Basophils # (Auto) 0.1 x10^3/uL (0.0-0.2) Prothrombin Time 14.9 SEC (11.7-14.0) Prothromb Time International Ratio 1.2 (0.8-1.1) Sodium Level 138 mmol/L (136-145) Potassium Level 4.4 mmol/L (3.5-5.1) Chloride Level 100 mmol/L (98-107) Carbon Dioxide Level 31 mmol/L (21-32) Anion Gap 7 (6-14) Blood Urea Nitrogen 30 mg/dL (7-20) Creatinine 3.1 mg/dL (0.6-1.0) Estimated GFR (Cockcroft-Gault) 14.2 Glucose Level 114 mg/dL (70-99) Calcium Level 7.2 mg/dL (8.5-10.1) Phosphorus Level 2.4 mg/dL (2.6-4.7) Albumin 2.3 g/dL (3.4-5.0) Vitamin B12 Level 1052 pg/mL (247-911) Test 08/04/18 07:04 08/04/18 11:26 08/04/18 16:38 08/04/18 21:06 Glucose (Fingerstick) 109 mg/dL (70-99) 148 mg/dL (70-99) 232 mg/dL (70-99) 265 mg/dL (70-99) Test 08/05/18 05:50 08/05/18 07:54 08/05/18 08:19 Prothrombin Time 14.3 SEC (11.7-14.0) Prothromb Time International Ratio 1.1 (0.8-1.1) Glucose (Fingerstick) 48 mg/dL (70-99) 55 mg/dL (70-99) Laboratory Tests Test 08/04/18 11:26 08/04/18 16:38 08/04/18 21:06 08/05/18 05:50 Glucose (Fingerstick) 148 mg/dL (70-99) 232 mg/dL (70-99) 265 mg/dL (70-99) Prothrombin Time 14.3 SEC (11.7-14.0) Prothromb Time International Ratio 1.1 (0.8-1.1) Test 08/05/18 07:54 08/05/18 08:19 Glucose (Fingerstick) 48 mg/dL (70-99) 55 mg/dL (70-99) Medications Active Scripts Medications Dose Route/Sig Max Daily Dose Days Date Category Dose Instructions Senna (Sennosides) 8.6 Mg Tablet 8.6 Mg PO DAILY 07/19/18 Reported Novolog Flexpen (Insulin Aspart) 100 Unit/1 Ml Insuln.pen 1 Unit SQ TIDAC 07/19/18 Reported Miralax (Polyethylene Glycol 3350) 17 Gm Powd.pack 1 Packet PO BID 07/19/18 Reported Milk Of Magnesia (Magnesium Hydroxide) 400 Mg/5 Ml Oral.susp 30 Ml PO PRN DAILY 07/19/18 Reported Duoneb 0.5-3(2.5) Mg/3 Ml (Albuterol/Ipratropium) 3 Ml Ampul.neb 3 Ml NEB TID 07/19/18 Reported Fleet Enema (Na Phos,M-B/Na Phos,Di-Ba) 133 Ml Enema 1 Each RC PRN DAILY PRN 07/19/18 Reported Dulcolax (Bisacodyl) 10 Mg Supp.rect 10 Mg RC PRN DAILY PRN 07/19/18 Reported Docusate Sodium 100 Mg Capsule 1 Cap PO BID 07/19/18 Reported Carvedilol (Carvedilol) 12.5 Mg Tablet 12.5 Mg PO BIDWMEALS 07/19/18 Reported Levemir (Insulin Detemir) 100 Unit/1 Ml Vial 5 Unit SQ QHS 30 07/15/18 Rx Hold for < 140mg/dL Acetaminophen 500 Mg Tablet 500 Mg PO PRN Q6HRS PRN 30 07/14/18 Rx Aspirin 325 Mg Tablet 1 Tab PO DAILY 04/16/18 Rx Protonix (Pantoprazole Sodium) 20 Mg Tablet.dr 40 Mg PO DAILY 11/06/17 Reported Voltaren (Diclofenac Sodium) 100 Gm Gel..gram. 1 Gm TP BID 11/06/17 Reported Zofran Odt (Ondansetron) 4 Mg Tab.rapdis 4 Mg PO Q6HRS PRN 10/30/17 Reported Sensipar (Cinacalcet Hcl) 30 Mg Tablet 1 Tab PO DAILY 02/04/17 Reported Renvela (Sevelamer Carbonate) 2.4 Gm Powd.pack 2.4 Gm PO TIDWMEALS 02/04/17 Reported Lumigan (Bimatoprost) 2.5 Ml Drops 1 Drop EACHEYE QHS 02/04/17 Reported Calcitriol 0.25 Mcg Capsule 1 Cap PO DAILY 01/18/17 Reported Nephro-Roland Tablet (Folic Acid/Vitamin B Comp W-C) 0.8 Mg Tablet 1 Tab PO DAILYBFRSUP 11/26/15 Reported Vitamin D (Cholecalciferol (Vitamin D3)) 2,000 Unit Capsule 1 Cap PO DAILY 11/26/15 Reported Impression . IMPRESSION: 1. Dyspnea with cough and mild bronchospasm POA, likely related to viral pneumonitis, triggering bronchospasm POA. She may have adult onset reactive airway disease. resolved now 2. Recent abnormal CT chest on 07/11 suggesting upper lobe viral pneumonitis. She has some ground glass infiltrates at that time. 3. End-stage renal disease, on hemodialysis. 4. Underlying obesity. 5. Chronic hypoxic respiratory failure, on home oxygen 2 liters. 6 HYPOTENSION IMPROVED 7. LEONIE EXT BRACHIAL CLOT Plan . RESP STATUS IMPROVED AWAITING [facility]AC EVAL/ APPROVAL CONTINUE THE SAME OFF HEPARIN/ COUMADIN FOR BRACHIAL CLOT DUE TO FISTULA BLEEDING. NO FURTHER AC PER VASCULAR/ REPEAT DOPPLERS TODAY OF LEONIE EXT prednisone 20 mg daily BD discussed w rn, pt JULIANE MILLER MD Aug 05, 2018 08:33
[2018-08-05] MEDS: SENNOSIDES 8.6 MG TABLET PO SCH (09:00)
[2018-08-05] MEDS: DICLOFENAC SODIUM 1% TOPICAL GEL 100GM TUBE. TP SCH ×2 (09:00→21:29)
[2018-08-05] MEDS: DOCUSATE SODIUM 100 MG CAPSULE. PO SCH (09:00)
--- NOTE | 2018-08-05 09:11 | PDOC ---
PROGRESS NOTES Chief Complaint Chief Complaint SOA, fluid overload and treating HCAP ESRD on dialysis-did not finish dialysis Existing AV fistula Hypotension, resolved now hypertension Anemia of chronic disease severe Generalized weakness SNU resident Diabetes type 2 on low-dose insulin uncontrolled// inc lantus to 14 units sq hs symptomatic with lethargy hypotension dysphagia, malnutrition MARKED DEBILITY, WEAKNESS Long-term SNU resident-HCR Occlusive thrombus in one brachial vein in the left upper arm surrounding an indwelling PICC line, on heparin for clot Dysphagia II diet w/ thin liquids, Hx bleed History of Present Illness History of Present Illness 87-year-old female //admitted from 07/10 thru 07/15, 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 Pt has no complaints Re ultrasound of the left upper extremity shows no DVT No OAC per vasc surgery HCR says she is to acute for SNU Patient is [employer] and LTAC screen on going Plan: CPM PT OT while here NO OAC, high bleeding issues with the AV fistula Dialysis per renal DNR Vitals Vitals Vital Signs Date Time Temp Pulse Resp B/P (MAP) Pulse Ox O2 Delivery O2 Flow Rate FiO2 08/05/18 08:28 100 Room Air 08/05/18 07:53 80 126/58 08/05/18 07:00 97.7 20 2.0 97.7 Physical Exam Physical Exam GENERAL: Propped up in bed, awake, Looks well HEENT: anicteric getting breathing treatment LUNGS: Mild congestion - bilat HEART: S1, S2. ABDOMEN: , soft and nontender. EXTREMITIES: No edema, no cyanosis. SKIN: No generalized rash. Chronic skin changes present in both lower extremities. 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 Motor function and sensation intact. LLE: Mild swelling in forearm and hand, palpable brahial pulse. Motor function and sensation intact.) Skin: No breakdown, Other (as above, no open lesions. Very fragile skin with minimal subcutaneous tinnitus tissue, old bruising) Labs LABS Laboratory Tests Test 08/04/18 11:26 08/04/18 16:38 08/04/18 21:06 08/05/18 05:50 Glucose (Fingerstick) 148 mg/dL (70-99) 232 mg/dL (70-99) 265 mg/dL (70-99) Prothrombin Time 14.3 SEC (11.7-14.0) Prothromb Time International Ratio 1.1 (0.8-1.1) Test 08/05/18 07:54 08/05/18 08:19 Glucose (Fingerstick) 48 mg/dL (70-99) 55 mg/dL (70-99) Review of Systems Review of Systems A 14 point ROS was completed with the following noted as positive: Other systems reviewed and negative. \CONSTITUTIONAL: No fever or chills EYES: No recent changes SKIN: No rash or itching CARDIOVASCULAR: No chest pain, syncope, palpitations, or edema RESPIRATORY: No SOB or cough GASTROINTESTINAL: No nausea, vomiting or abdominal pain NEUROLOGICAL: No headaches or weakness ENDOCRINE: No cold or heat intolerance GENITOURINARY: No urgency or frequency of urination MUSCULOSKELETAL: No back pain or joint pain LYMPHATICS: No enlarged lymph nodes PSYCHIATRIC: No anxiety or depression Assessment and Plan Assessmemt and Plan Problems Medical Problems: (1) Congestive heart failure Status: Acute Comment Review of Relevant I have reviewed the following items smith (where applicable) has been applied. Labs Laboratory Tests Test 08/03/18 11:11 08/03/18 16:36 08/03/18 20:52 08/04/18 06:30 Glucose (Fingerstick) 138 mg/dL (70-99) 169 mg/dL (70-99) 202 mg/dL (70-99) White Blood Count 9.7 x10^3/uL (4.0-11.0) Red Blood Count 2.51 x10^6/uL (3.50-5.40) Hemoglobin 8.9 g/dL (12.0-15.5) Hematocrit 27.0 % (36.0-47.0) Mean Corpuscular Volume 107 fL (79-100) Mean Corpuscular Hemoglobin 36 pg (25-35) Mean Corpuscular Hemoglobin Concent 33 g/dL (31-37) Red Cell Distribution Width 20.5 % (11.5-14.5) Platelet Count 97 x10^3/uL (140-400) Neutrophils (%) (Auto) 76 % (31-73) Lymphocytes (%) (Auto) 12 % (24-48) Monocytes (%) (Auto) 10 % (0-9) Eosinophils (%) (Auto) 2 % (0-3) Basophils (%) (Auto) 1 % (0-3) Neutrophils # (Auto) 7.4 x10^3uL (1.8-7.7) Lymphocytes # (Auto) 1.1 x10^3/uL (1.0-4.8) Monocytes # (Auto) 0.9 x10^3/uL (0.0-1.1) Eosinophils # (Auto) 0.2 x10^3/uL (0.0-0.7) Basophils # (Auto) 0.1 x10^3/uL (0.0-0.2) Prothrombin Time 14.9 SEC (11.7-14.0) Prothromb Time International Ratio 1.2 (0.8-1.1) Sodium Level 138 mmol/L (136-145) Potassium Level 4.4 mmol/L (3.5-5.1) Chloride Level 100 mmol/L (98-107) Carbon Dioxide Level 31 mmol/L (21-32) Anion Gap 7 (6-14) Blood Urea Nitrogen 30 mg/dL (7-20) Creatinine 3.1 mg/dL (0.6-1.0) Estimated GFR (Cockcroft-Gault) 14.2 Glucose Level 114 mg/dL (70-99) Calcium Level 7.2 mg/dL (8.5-10.1) Phosphorus Level 2.4 mg/dL (2.6-4.7) Albumin 2.3 g/dL (3.4-5.0) Vitamin B12 Level 1052 pg/mL (247-911) Test 08/04/18 07:04 08/04/18 11:26 08/04/18 16:38 08/04/18 21:06 Glucose (Fingerstick) 109 mg/dL (70-99) 148 mg/dL (70-99) 232 mg/dL (70-99) 265 mg/dL (70-99) Test 08/05/18 05:50 08/05/18 07:54 08/05/18 08:19 Prothrombin Time 14.3 SEC (11.7-14.0) Prothromb Time International Ratio 1.1 (0.8-1.1) Glucose (Fingerstick) 48 mg/dL (70-99) 55 mg/dL (70-99) Laboratory Tests Test 08/04/18 11:26 08/04/18 16:38 08/04/18 21:06 08/05/18 05:50 Glucose (Fingerstick) 148 mg/dL (70-99) 232 mg/dL (70-99) 265 mg/dL (70-99) Prothrombin Time 14.3 SEC (11.7-14.0) Prothromb Time International Ratio 1.1 (0.8-1.1) Test 08/05/18 07:54 08/05/18 08:19 Glucose (Fingerstick) 48 mg/dL (70-99) 55 mg/dL (70-99) Medications Current Medications Albuterol/ Ipratropium (Duoneb) 3 ml 1X ONCE NEB Last administered on at 12:57; Start 07/19/18 at 12:45; Stop 07/19/18 at 12:46; Status DC Ondansetron HCl (Zofran) 4 mg PRN Q8HRS PRN IV NAUSEA/VOMITING; Start 07/19/18 at 14:30; Stop 07/20/18 at 14:29; Status DC Acetaminophen (Tylenol) 650 mg PRN Q4HRS PRN PO FEVER; Start 07/19/18 at 14:30 ; Stop 07/20/18 at 08:37; Status DC Nitroglycerin (Nitrostat) 0.4 mg PRN Q5MIN PRN SL CHEST PAIN; Start 07/19/18 at 14:30; Stop 07/20/18 at 14:29; Status DC Albuterol/ Ipratropium (Duoneb) 3 ml RTQID NEB ; Start 07/19/18 at 16:00; Stop 07/20/18 at 15:59; Status Cancel Aspirin (Tracee Aspirin) 325 mg DAILY PO Last administered on 08/05/18at 07:52; Start 07/19/18 at 15:00 Carvedilol (Coreg) 3.125 mg BIDWMEALS PO ; Start 07/19/18 at 17:00; Stop at 19:42; Status DC Cinacalcet (Sensipar) 30 mg DAILY PO Last administered on 08/05/18 07:52; Start 07/19/18 at 15:00 Diclofenac Sodium (Voltaren) 1 grisel BID TP Last administered on 08/04/18 08:56; Start 07/19/18 at 21:00 Fentanyl (Duragesic 12mcg/ Hr Patch) 1 patch Q3DAYS TD ; Start 07/19/18 at 15:00 ; Stop 07/19/18 at 19:42; Status DC Vitamin B Complex/ Vitamin C (Bela-Roland) 1 tab DAILYBFRSUP PO Last administered on 08/04/18 17:11; Start 07/19/18 at 17:00 Ondansetron HCl (Zofran Odt) 4 mg PRN Q6HRS PRN PO NAUSEA/VOMITING; Start 07/19 at 14:45 Sevelamer Carbonate (Renvela) 2.4 gm TIDWMEALS PO Last administered on 07:53; Start 07/19/18 at 17:00 Acetaminophen (Tylenol) 500 mg PRN Q6HRS PRN PO MILD PAIN / TEMP; Start at 14:45 Latanoprost (Xalatan) 1 drop QHS OU Last administered on 08/04/18 21:30; Start 07/19/18 at 21:00 Calcitriol (Rocaltrol) 0.25 mcg DAILY PO Last administered on 08/04/18 08:53; Start 07/20/18 at 09:00 Vitamin D (Vitamin D3) 1,000 unit DAILY PO Last administered on 08/05/18 07:52 ; Start 07/20/18 at 09:00 Hydromorphone HCl (Dilaudid) 2 mg PRN Q8HRS PRN PO MODERATE PAIN, SEVERE PAIN; Start 07/19/18 at 15:00; Stop 07/20/18 at 09:31; Status DC Insulin Glargine (Lantus) 5 units QHS SQ Last administered on 07/26/18 21:46; Start 07/19/18 at 21:00; Stop 07/27/18 at 10:00; Status DC Non-Formulary Medication (Latanoprost/Pf (Latanoprost 0.005% Eye Drop)) 7.5 ml QHS OP ; Start 07/19/18 at 21:00; Status UNV Pantoprazole Sodium (Protonix) 40 mg DAILYAC PO Last administered on 07/24/18at 11:17; Start 07/20/18 at 07:30; Stop 07/27/18 at 09:10; Status DC Piperacillin Sod/ Tazobactam Sod (Zosyn Per Pharmacy) 1 each PRN DAILY PRN MC SEE COMMENTS; Start 07/19/18 at 14:45; Stop 07/24/18 at 11:11; Status DC Albuterol/ Ipratropium (Duoneb) 3 ml RTQID NEB Last administered on 08/05/18at 08 :25; Start 07/19/18 at 16:00 Guaifenesin (Robitussin Dm) 10 ml QID PO Last administered on 08/05/18at 07:51; Start 07/19/18 at 17:00 Temazepam (Restoril) 7.5 mg PRN QHS PRN PO INSOMNIA Last administered on at 20:42; Start 07/19/18 at 14:45 Insulin Human Lispro (HumaLOG) 0-7 UNITS TIDWMEALS SQ Last administered on 17:45; Start 07/19/18 at 17:00 Dextrose (Dextrose 50%-Water Syringe) 12.5 gm PRN Q15MIN PRN IV SEE COMMENTS Last administered on 08/03/18at 05:43; Start 07/19/18 at 14:45 Piperacillin Sod/ Tazobactam Sod 2.25 gm/Sodium Chloride 50 ml @ 100 mls/hr Q8H IV Last administered on 07/24/18 00:10; Start 07/19/18 at 16:00; Stop at 08:08; Status DC Furosemide (Lasix) 40 mg 1X ONCE IVP Last administered on 07/19/18 14:52; Start 07/19/18 at 14:45; Stop 07/19/18 at 14:52; Status DC Docusate Sodium (Colace) 100 mg BID PO Last administered on 4/7/19at 20:50; Start 07/19/18 at 21:00 Magnesium Hydroxide (Milk Of Magnesia) 2,400 mg PRN DAILY PRN PO CONSTIPATION; Start 07/19/18 at 19:45 Sodium Monofluorophosphate (Fleet Adult) 133 ml PRN DAILY PRN RC CONSTIPATION; Start 07/19/18 at 19:45; Stop 07/22/18 at 12:17; Status DC Bisacodyl (Dulcolax Supp) 10 mg PRN DAILY PRN AR CONSTIPATION 1ST CHOICE; Start 07/19/18 at 19:45 Polyethylene Glycol (miraLAX PACKET) 17 gm BID PO Last administered on 08:54; Start 07/19/18 at 21:00 Sennosides (Senna) 8.6 mg DAILY PO Last administered on 08/04/18 08:52; Start 07/20/18 at 09:00 Lactobacillus Rhamnosus (Culturelle) 1 cap BID PO Last administered on 07:52; Start 07/20/18 at 21:00 Methylprednisolone Sodium Succinate (SOLU-Medrol 40MG VIAL) 40 mg Q8HRS IV Last administered on 08/01/18 06:05; Start 07/20/18 at 14:00; Stop 08/01/18 at 09 :32; Status DC Albumin Human 250 ml @ 62.5 mls/hr PRN Q6HRS PRN IV for MAP < 65 Last administered on 07/21/18at 20:45; Start 07/20/18 at 09:45 Magnesium Sulfate 50 ml @ 25 mls/hr PRN DAILY PRN IV for Mag < 1.7 on am labs; Start 07/20/18 at 09:45 Dopamine HCl/ Dextrose 250 ml @ 6.124 mls/ hr CONT PRN IV SEE I/O RECORD Last administered on 07/24/18at 20:37; Start 07/20/18 at 12:00; Stop 07/26/18 at 14:13 ; Status DC Sodium Chloride 1,000 ml @ 1,000 mls/hr Q1H PRN IV hypotension; Start 07/21/18 at 13:00; Stop 07/21/18 at 18:59; Status DC Sodium Chloride 1,000 ml @ 400 mls/hr Q2H30M PRN IV PATENCY; Start 07/21/18 at 13:00; Stop 07/22/18 at 00:59; Status DC Info (PHARMACY MONITORING -- do not chart) 1 each PRN DAILY PRN MC SEE COMMENTS ; Start 07/21/18 at 13:30; Status UNV Info (PHARMACY MONITORING -- do not chart) 1 each PRN DAILY PRN MC SEE COMMENTS ; Start 07/21/18 at 13:30; Stop 07/24/18 at 07:10; Status DC Albumin Human 100 ml @ 100 mls/hr 1X ONCE IV Last administered on 07/21/18at 14:00; Start 07/21/18 at 13:30; Stop 07/21/18 at 14:29; Status DC Sodium Chloride 500 ml @ 500 mls/hr 1X ONCE IV Last administered on at 11:14; Start 07/22/18 at 11:15; Stop 07/22/18 at 12:14; Status DC Digoxin (Lanoxin) 125 mcg QMWF@1600 PO ; Start 07/23/18 at 16:00; Stop 07/23/18 at 16:00; Status DC Digoxin (Lanoxin) 125 mcg 1X ONCE PO Last administered on 07/22/18at 12:26; Start 07/22/18 at 12:00; Stop 07/22/18 at 12:01; Status DC Midodrine (Proamatine) 2.5 mg [id number] PO Last administered on 08/05/18at 07:53; Start 07/22/18 at 13:00 Digoxin (Lanoxin) 125 mcg QTUTHSA PO Last administered on 08/02/18at 18:32; Start 07/24/18 at 16:00 Sodium Chloride 500 ml @ 500 mls/hr 1X ONCE IV Last administered on at 15:42; Start 07/23/18 at 15:00; Stop 07/23/18 at 15:59; Status DC Sodium Chloride 1,000 ml @ 1,000 mls/hr Q1H PRN IV hypotension; Start 07/24/18 at 06:59; Stop 07/24/18 at 12:58; Status DC Albumin Human 200 ml @ 200 mls/hr 1X PRN PRN IV Hypotension Last administered on 07/24/18at 08:09; Start 07/24/18 at 07:00; Stop 07/24/18 at 12:59; Status DC Sodium Chloride 1,000 ml @ 400 mls/hr Q2H30M PRN IV PATENCY; Start 07/24/18 at 06:59; Stop 07/24/18 at 18:58; Status DC Info (PHARMACY MONITORING -- do not chart) 1 each PRN DAILY PRN MC SEE COMMENTS ; Start 07/24/18 at 07:00; Stop 07/25/18 at 11:17; Status DC Info (PHARMACY MONITORING -- do not chart) 1 each PRN DAILY PRN MC SEE COMMENTS ; Start 07/24/18 at 07:00; Status UNV Amoxicillin/ Clavulanate Potassium (Augmentin 500/ 125mg) 1 tab BID PO Last administered on 07/24/18at 11:16; Start 07/24/18 at 09:00; Stop 07/25/18 at 09:21 ; Status DC Amino Acids/ Glycerin/ Electrolytes 1,000 ml @ 50 mls/hr Q20H IV Last administered on 07/28/18at 21:12; Start 07/24/18 at 17:00; Stop 07/29/18 at 08:56; Status DC Heparin Sodium/ Dextrose 500 ml @ 0 mls/hr CONT PRN IV SEE I/O RECORD; Start at 19:30; Status Cancel Heparin Sodium (Porcine) (Heparin Sodium) 6,850 unit 1X ONCE IV Last administered on 07/24/18at 19:38; Start 07/24/18 at 19:30; Stop 07/24/18 at 19:33 ; Status DC Heparin Sodium/ Dextrose 500 ml @ 0 mls/hr CONT PRN IV SEE I/O RECORD; Start at 19:30; Status UNV Heparin Sodium (Porcine) (Heparin Sodium) 2,550 unit PRN Q6HRS PRN IV FOR UFH LEVEL LESS THAN 0.2; Start 07/24/18 at 19:30 Heparin Sodium (Porcine) (Heparin Sodium) 1,300 unit PRN Q6HRS PRN IV FOR UFH LEVEL 0.2 - 0.29 Last administered on 07/25/18at 23:25; Start 07/24/18 at 19:30 Heparin Sodium/ Dextrose 500 ml @ 0 mls/hr CONT PRN IV SEE I/O RECORD Last administered on 07/30/18at 04:32; Start 07/24/18 at 19:45 Sodium Chloride 1,000 ml @ 1,000 mls/hr Q1H PRN IV hypotension; Start 07/25/18 at 08:22; Stop 07/25/18 at 14:21; Status DC Albumin Human 200 ml @ 200 mls/hr 1X ONCE IV Last administered on 07/25/18at 08:49; Start 07/25/18 at 08:30; Stop 07/25/18 at 09:29; Status DC Diphenhydramine HCl (Benadryl) 25 mg 1X PRN PRN IV ITCHING; Start 07/25/18 at 08:30; Stop 07/26/18 at 08:29; Status DC Diphenhydramine HCl (Benadryl) 25 mg 1X PRN PRN IV ITCHING; Start 07/25/18 at 08:30; Stop 07/26/18 at 08:29; Status DC Sodium Chloride 1,000 ml @ 400 mls/hr Q2H30M PRN IV PATENCY; Start 07/25/18 at 08:22; Stop 07/25/18 at 20:21; Status DC Info (PHARMACY MONITORING -- do not chart) 1 each PRN DAILY PRN MC SEE COMMENTS ; Start 07/25/18 at 08:30; Stop 07/26/18 at 14:10; Status DC Piperacillin Sod/ Tazobactam Sod 2.25 gm/Sodium Chloride 50 ml @ 100 mls/hr Q8HRS IV Last administered on 07/28/18at 05:07; Start 07/25/18 at 09:30; Stop 07/28/18 at 09:31; Status DC Info (Anti-Coagulation Monitoring By Pharmacy) 1 each PRN DAILY PRN MC SEE COMMENTS Last administered on 07/31/18at 15:00; Start 07/25/18 at 11:30 Info (PHARMACY MONITORING -- do not chart) 1 each PRN DAILY PRN MC SEE COMMENTS ; Start 07/26/18 at 08:15; Status Cancel Info (PHARMACY MONITORING -- do not chart) 1 each PRN DAILY PRN MC SEE COMMENTS ; Start 07/26/18 at 08:15; Stop 07/26/18 at 08:17; Status DC Barium Sulfate (Varibar Thin Liquid Apple) 148 gm 1X ONCE PO Last administered on 07/26/18 13:30; Start 07/26/18 at 13:30; Stop 07/26/18 at 13:31 ; Status DC Pantoprazole Sodium (PROTONIX VIAL for IV PUSH) 40 mg DAILYAC IVP Last administered on 07/28/18 07:54; Start 07/27/18 at 11:30; Stop 07/28/18 at 10:43; Status DC Insulin Glargine (Lantus) 9 units QHS SQ Last administered on 07/27/18 20:52; Start 07/27/18 at 21:00; Stop 07/28/18 at 14:03; Status DC Insulin Human Lispro (HumaLOG) 4 units TIDWMEALS SQ Last administered on 18:45; Start 07/27/18 at 12:00; Stop 08/03/18 at 12:24; Status DC Pantoprazole Sodium (Protonix) 40 mg DAILYAC PO Last administered on 08/05/18 07:52; Start 07/29/18 at 07:30 Insulin Glargine (Lantus) 14 units QHS SQ Last administered on 08/02/18 20:17; Start 07/28/18 at 21:00; Stop 08/03/18 at 12:24; Status DC Warfarin Sodium (Coumadin) 2.5 mg DAILY16 PO ; Start 07/29/18 at 16:00; Stop 07/29 at 16:00; Status DC Warfarin Sodium (Coumadin Per Pharmacy) 1 each PRN DAILY PRN MC SEE COMMENTS Last administered on 07/31/18 14:57; Start 07/29/18 at 09:00 Warfarin Sodium (Coumadin) 2 mg 1X WARF ONCE PO Last administered on 07/29/18 18:27; Start 07/29/18 at 16:00; Stop 07/29/18 at 16:01; Status DC Sodium Chloride 1,000 ml @ 1,000 mls/hr Q1H PRN IV hypotension; Start 07/29/18 at 13:50; Stop 07/29/18 at 19:49; Status DC Info (PHARMACY MONITORING -- do not chart) 1 each PRN DAILY PRN MC SEE COMMENTS ; Start 07/29/18 at 14:00; Status Cancel Info (PHARMACY MONITORING -- do not chart) 1 each PRN DAILY PRN MC SEE COMMENTS ; Start 07/29/18 at 14:00; Status UNV Warfarin Sodium (Coumadin) 2 mg 1X WARF ONCE PO ; Start 07/30/18 at 16:00; Stop 07/30/18 at 16:01; Status DC Sodium Chloride 1,000 ml @ 1,000 mls/hr Q1H PRN IV hypotension; Start 07/31/18 at 09:54; Stop 07/31/18 at 15:53; Status DC Albumin Human 200 ml @ 200 mls/hr 1X PRN PRN IV Hypotension; Start 07/31/18 at 10:00; Stop 07/31/18 at 15:59; Status DC Sodium Chloride 1,000 ml @ 400 mls/hr Q2H30M PRN IV PATENCY; Start 07/31/18 at 09:54; Stop 07/31/18 at 21:53; Status DC Info (PHARMACY MONITORING -- do not chart) 1 each PRN DAILY PRN MC SEE COMMENTS ; Start 07/31/18 at 10:00; Status UNV Info (PHARMACY MONITORING -- do not chart) 1 each PRN DAILY PRN MC SEE COMMENTS ; Start 07/31/18 at 10:00 Warfarin Sodium (Coumadin) 2 mg 1X WARF ONCE PO ; Start 07/31/18 at 16:00; Stop 07/31/18 at 16:01; Status Cancel Insulin Human Lispro (HumaLOG) 7 units 1X ONCE SQ Last administered on at 23:20; Start 07/31/18 at 22:15; Stop 07/31/18 at 22:16; Status DC Prednisone (Prednisone) 20 mg DAILY PO Last administered on 08/05/18at 07:52; Start 08/02/18 at 09:00 Warfarin Sodium (Coumadin - No Dose Today) 1 each 1X WARF ONCE MC ; Start at 16:00; Stop 08/01/18 at 17:29; Status DC Sodium Chloride 1,000 ml @ 1,000 mls/hr Q1H PRN IV hypotension; Start 08/02/18 at 09:30; Stop 08/02/18 at 17:00; Status DC Sodium Chloride 1,000 ml @ 400 mls/hr Q2H30M PRN IV PATENCY; Start 08/02/18 at 09:30; Stop 08/02/18 at 18:00; Status DC Info (PHARMACY MONITORING -- do not chart) 1 each PRN DAILY PRN MC SEE COMMENTS ; Start 08/02/18 at 09:45; Status UNV Info (PHARMACY MONITORING -- do not chart) 1 each PRN DAILY PRN MC SEE COMMENTS ; Start 08/02/18 at 09:45; Status UNV Insulin Glargine (Lantus) 8 units QHS SQ Last administered on 08/04/18at 21:37; Start 08/03/18 at 21:00 Darbepoetin Donte (Aranesp) 60 mcg Mo SQ Last administered on 08/04/18at 21:31; Start 08/04/18 at 21:00 Sodium Chloride 1,000 ml @ 1,000 mls/hr Q1H PRN IV hypotension; Start 08/05/18 at 07:17; Stop 08/05/18 at 13:16 Albumin Human 200 ml @ 200 mls/hr 1X PRN PRN IV Hypotension; Start 08/05/18 at 07:30; Stop 08/05/18 at 13:29 Sodium Chloride (Normal Saline Flush) 10 ml 1X PRN PRN IV AP catheter pack; Start 08/05/18 at 07:30; Stop 08/06/18 at 07:29 Sodium Chloride (Normal Saline Flush) 10 ml 1X PRN PRN IV VACATION PLANNER catheter pack; Start 08/05/18 at 07:30; Stop 08/06/18 at 07:29 Sodium Chloride 1,000 ml @ 400 mls/hr Q2H30M PRN IV PATENCY; Start 08/05/18 at 07:17; Stop 08/05/18 at 19:16 Info (PHARMACY MONITORING -- do not chart) 1 each PRN DAILY PRN MC SEE COMMENTS ; Start 08/05/18 at 07:30; Status UNV Info (PHARMACY MONITORING -- do not chart) 1 each PRN DAILY PRN MC SEE COMMENTS ; Start 08/05/18 at 07:30; Status UNV Active Scripts Active Lantus Solostar (Insulin Glargine,Hum.rec.anlog) 100 Unit/1 Ml Insuln.pen 8 Units SQ QHS MDD 1 Restoril (Temazepam) 7.5 Mg Capsule 7.5 Mg PO PRN QHS PRN MDD 1 Digoxin 125 Mcg Tablet 125 Mcg PO QTUTHSA MDD 1 Midodrine Hcl 2.5 Mg Tablet 2.5 Mg PO [id number] MDD 1 Levemir (Insulin Detemir) 100 Unit/1 Ml Vial 5 Unit SQ QHS 30 Days Hold for < 140mg/dL Aspirin 325 Mg Tablet 1 Tab PO DAILY Reported Amlodipine Besylate 10 Mg Tablet 10 Mg PO DAILY Tylenol (Acetaminophen) 325 Mg Tablet 2 Tab PO PRN Q6HRS PRN Senna (Sennosides) 8.6 Mg Tablet 8.6 Mg PO DAILY Novolog Flexpen (Insulin Aspart) 100 Unit/1 Ml Insuln.pen 1 Unit SQ TIDAC Miralax (Polyethylene Glycol 3350) 17 Gm Powd.pack 1 Packet PO BID Milk Of Magnesia (Magnesium Hydroxide) 400 Mg/5 Ml Oral.susp 30 Ml PO PRN DAILY Duoneb 0.5-3(2.5) Mg/3 Ml (Albuterol/Ipratropium) 3 Ml Ampul.neb 3 Ml NEB TID Fleet Enema (Na Phos,M-B/Na Phos,Di-Ba) 133 Ml Enema 1 Each RC PRN DAILY PRN Dulcolax (Bisacodyl) 10 Mg Supp.rect 10 Mg RC PRN DAILY PRN Docusate Sodium 100 Mg Capsule 1 Cap PO BID Carvedilol (Carvedilol) 12.5 Mg Tablet 12.5 Mg PO BIDWMEALS Protonix (Pantoprazole Sodium) 20 Mg Tablet.dr 40 Mg PO DAILY Voltaren (Diclofenac Sodium) 100 Gm Gel..gram. 1 Gm TP BID Zofran Odt (Ondansetron) 4 Mg Tab.rapdis 4 Mg PO Q6HRS PRN Sensipar (Cinacalcet Hcl) 30 Mg Tablet 1 Tab PO DAILY Renvela (Sevelamer Carbonate) 2.4 Gm Powd.pack 2.4 Gm PO TIDWMEALS Lumigan (Bimatoprost) 2.5 Ml Drops 1 Drop EACHEYE QHS Calcitriol 0.25 Mcg Capsule 1 Cap PO DAILY Nephro-Roland Tablet (Folic Acid/Vitamin B Comp W-C) 0.8 Mg Tablet 1 Tab PO DAILYBFRSUP Vitamin D (Cholecalciferol (Vitamin D3)) 2,000 Unit Capsule 1 Cap PO DAILY Vitals/I & O Vital Sign - Last 24 Hours 08/04/18 08/04/18 08/04/18 08/04/18 11:07 12:06 12:35 15:02 Temp 97.6 98.0 97.6 98.0 Pulse 76 76 84 Resp 16 16 B/P (MAP) 108/55 (72) 108/55 122/68 (86) Pulse Ox 95 96 94 O2 Delivery Room Air Room Air Room Air 08/04/18 08/04/18 08/04/18 08/04/18 16:29 17:11 19:33 20:00 Temp 97.8 97.8 Pulse 84 72 Resp 16 B/P (MAP) 122/68 107/53 (71) Pulse Ox 100 O2 Delivery Room Air Room Air Room Air 08/04/18 08/04/18 08/05/18 08/05/18 20:04 22:51 02:37 07:00 Temp 98.1 98.2 97.7 98.1 98.2 97.7 Pulse 77 83 80 Resp 16 16 20 B/P (MAP) 120/58 (78) 126/59 (81) 126/58 (80) Pulse Ox 97 99 97 99 O2 Delivery Room Air Room Air Room Air Room Air O2 Flow Rate 2.0 08/05/18 08/05/18 07:53 08:28 Pulse 80 B/P (MAP) 126/58 Pulse Ox 100 O2 Delivery Room Air Intake and Output 08/04/18 08/04/18 08/05/18 15:00 23:00 07:00 Intake Total 460 ml 150 ml Balance 460 ml 150 ml ERINN ROCKWELL MD Aug 05, 2018 09:11
--- NOTE | 2018-08-05 09:30 | PDOC ---
Subjective: Subjective: No complaints. Objective: Vital Signs: Vital Signs Date Time Temp Pulse Resp B/P (MAP) Pulse Ox O2 Delivery O2 Flow Rate FiO2 08/05/18 08:28 100 Room Air 08/05/18 07:53 80 126/58 08/05/18 07:00 97.7 20 2.0 97.7 Labs: Laboratory Tests Test 08/04/18 11:26 08/04/18 16:38 08/04/18 21:06 08/05/18 05:50 Glucose (Fingerstick) 148 mg/dL 232 mg/dL 265 mg/dL Prothrombin Time 14.3 SEC Prothromb Time International Ratio 1.1 Test 08/05/18 07:54 08/05/18 08:19 Glucose (Fingerstick) 48 mg/dL 55 mg/dL Imaging: UE US Impression: No evidence of deep venous thrombosis involving the left upper extremity. PE: GEN: NAD - resp therapy present helping her eat breakfast LUNGS: wet cough ABD: S/ND/NT NEURO/PSYCH: A & O 3, quiet A/P: Chronic anemia - no GI bleeding -- Continue same per GI, await DC. D/w therapy later - frequent stooling with movement - ?incontinent Changed Miralax to PRN and will follow-up w/ RN. Could consider FiberCon, etc. REDD NAVARRO Aug 05, 2018 09:30
--- NOTE | 2018-08-05 10:52 | NUR ---
SS following up with discharge planning. [facility], ; fax [phone], contacted and notified SS that [employer] has overturned there denial for LTAC and pt is now authorized to go to LTAC. [facility] reported that would contact SS when bed was available. Physician notified and completing discharge orders. Pt's RN and pt's daughter notified.
--- NOTE | 2018-08-05 12:10 | NUR ---
Pt FSBS was 48 this AM, unit protocol followed. Rechecked BS level and increased to 55. Dr. Escobar notified; no new orders received.
[2018-08-05] MEDS ORDERED: POLYETHYLENE GLYCOL 3350 17 GM PACKET. PO PRN (13:15)
[2018-08-05] MEDS: CALCITRIOL 0.25 MCG CAPSULE. PO SCH (13:57)
--- NOTE | 2018-08-05 13:59 | NUR ---
SS following for discharge planning. Discharge orders received for [facility] SS phoned and faxed discharge orders to [facility] ; fax [phone]. SS will await bed availability from [facility] and will proceed accordingly with transfer. Pt's daughter notified.
[2018-08-05 14:25] VITALS: BP 130/61
[2018-08-05 14:45] LABS: BASO # 0.2 x10^3/uL (0.0-0.2); BASO % 2 % (0-3); EOS # 0.2 x10^3/uL (0.0-0.7); EOS % 2 % (0-3); HEMATOCRIT 28.5 % (36.0-47.0); HEMOGLOBIN 9.2 g/dL (12.0-15.5); LYMPH # 1.4 x10^3/uL (1.0-4.8); LYMPH % 15 % (24-48); MEAN CORPUSCULAR HEMOGLOBIN 35 pg (25-35); MEAN CORPUSCULAR HGB CONC 32 g/dL (31-37); MEAN CORPUSCULAR VOLUME 110 fL (79-100); MONO % 10 % (0-9); NEUT # 6.5 x10^3uL (1.8-7.7); NEUT % 70 % (31-73); PLATELET COUNT 98 x10^3/uL (140-400); RED CELL DISTRIBUTION WIDTH 21.8 % (11.5-14.5); WHITE BLOOD COUNT 9.3 x10^3/uL (4.0-11.0)
[2018-08-05 14:48] LABS: ALBUMIN 2.7 g/dL (3.4-5.0); ALBUMIN/GLOBULIN RATIO 0.9 (1.0-1.7); CALCIUM 7.4 mg/dL (8.5-10.1); GFR 10.6; TOTAL BILIRUBIN 1.1 mg/dL (0.2-1.0); TOTAL PROTEIN 5.7 g/dL (6.4-8.2)
--- NOTE | 2018-08-05 14:57 | PDOC ---
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 Patent AV fistula in the right upper arm containing a small bit of thrombus. 2. Small hypoechoic process adjacent to the fistula at the lateral antecubital fossa level, most likely representing a small hematoma. COMMENT/RELEVANT DATA Meds Current Medications Medications (Trade) Dose Ordered Sig/Homa Start Time Stop Time Status Last Admin Dose Admin Acetaminophen (Tylenol) 500 mg PRN Q6HRS PRN 07/19/18 14:45 Albumin Human 200 ml @ 200 mls/hr 1X PRN PRN 08/05/18 07:30 08/05/18 13:29 DC Albuterol/ Ipratropium (Duoneb) 3 ml RTQID 07/19/18 16:00 08/05/18 08:25 3 ML Amino Acids/ Glycerin/ Electrolytes 1,000 ml @ 50 mls/hr Q20H 07/24/18 17:00 07/29/18 08:56 DC 07/28/18 21:12 50 MLS/HR Amoxicillin/ Clavulanate Potassium (Augmentin 500/ 125mg) 1 tab BID 07/24/18 09:00 07/25/18 09:21 DC 07/24/18 11:16 1 TAB Aspirin (Tracee Aspirin) 325 mg DAILY 07/19/18 15:00 08/05/18 07:52 325 MG Barium Sulfate (Varibar Thin Liquid Apple) 148 gm 1X ONCE 3/30/19 13:30 07/26/18 13:31 DC 07/26/18 13:30 148 GM Bisacodyl (Dulcolax Supp) 10 mg PRN DAILY PRN 07/19/18 19:45 Calcitriol (Rocaltrol) 0.25 mcg DAILY 07/20/18 09:00 08/05/18 13:57 0.25 MCG Carvedilol (Coreg) 3.125 mg BIDWMEALS 07/19/18 17:00 07/19/18 19:42 DC Cinacalcet (Sensipar) 30 mg DAILY 07/19/18 15:00 08/05/18 07:52 30 MG Darbepoetin Donte (Aranesp) 60 mcg Mo 08/04/18 21:00 08/04/18 21:31 60 MCG Dextrose (Dextrose 50%-Water Syringe) 12.5 gm PRN Q15MIN PRN 07/19/18 14:45 08/03/18 05:43 12.5 GM Diclofenac Sodium (Voltaren) 1 grisel BID 07/19/18 21:00 08/04/18 08:56 1 GRISEL Digoxin (Lanoxin) 125 mcg QTUTHSA 07/24/18 16:00 08/02/18 18:32 125 MCG Diphenhydramine HCl (Benadryl) 25 mg 1X PRN PRN 07/25/18 08:30 07/26/18 08:29 DC Docusate Sodium (Colace) 100 mg BID 07/19/18 21:00 08/03/18 20:50 100 MG Dopamine HCl/ Dextrose 250 ml @ 6.124 mls/ hr CONT PRN 07/20/18 12:00 07/26/18 14:13 DC 07/24/18 20:37 30.618 MLS/HR Fentanyl (Duragesic 12mcg/ Hr Patch) 1 patch Q3DAYS 07/19/18 15:00 07/19/18 19:42 DC Furosemide (Lasix) 40 mg 1X ONCE 07/19/18 14:45 07/19/18 14:52 DC 07/19/18 14:52 40 MG Guaifenesin (Robitussin Dm) 10 ml QID 07/19/18 17:00 08/05/18 13:57 10 ML Heparin Sodium (Porcine) (Heparin Sodium) 1,300 unit PRN Q6HRS PRN 07/24/18 19:30 07/25/18 23:25 1,300 UNIT Heparin Sodium/ Dextrose 500 ml @ 0 mls/hr CONT PRN 07/24/18 19:45 07/30/18 04:32 18.8 MLS/HR Hydromorphone HCl (Dilaudid) 2 mg PRN Q8HRS PRN 07/19/18 15:00 07/20/18 09:31 DC Info (Anti-Coagulation Monitoring By Pharmacy) 1 each PRN DAILY PRN 07/25/18 11:30 07/31/18 15:00 1 EACH Info (PHARMACY MONITORING -- do not chart) 1 each PRN DAILY PRN 08/05/18 07:30 UNV Insulin Glargine (Lantus) 8 units QHS 08/03/18 21:00 08/04/18 21:37 8 UNITS Insulin Human Lispro (HumaLOG) 7 units 1X ONCE 07/31/18 22:15 07/31/18 22:16 DC 07/31/18 23:20 7 UNITS Lactobacillus Rhamnosus (Culturelle) 1 cap BID 07/20/18 21:00 08/05/18 07:52 1 CAP Latanoprost (Xalatan) 1 drop QHS 07/19/18 21:00 08/04/18 21:30 1 DROP Magnesium Hydroxide (Milk Of Magnesia) 2,400 mg PRN DAILY PRN 07/19/18 19:45 Magnesium Sulfate 50 ml @ 25 mls/hr PRN DAILY PRN 07/20/18 09:45 Methylprednisolone Sodium Succinate (SOLU-Medrol 40MG VIAL) 40 mg Q8HRS 07/20/18 14:00 08/01/18 09:32 DC 08/01/18 06:05 40 MG Midodrine (Proamatine) 2.5 mg [id number] 07/22/18 13:00 08/05/18 13:58 2.5 MG Nitroglycerin (Nitrostat) 0.4 mg PRN Q5MIN PRN 07/19/18 14:30 07/20/18 14:29 DC Non-Formulary Medication (Latanoprost/Pf (Latanoprost 0.005% Eye Drop)) 7.5 ml QHS 07/19/18 21:00 UNV Ondansetron HCl (Zofran Odt) 4 mg PRN Q6HRS PRN 07/19/18 14:45 Ondansetron HCl (Zofran) 4 mg PRN Q8HRS PRN 07/19/18 14:30 07/20/18 14:29 DC Pantoprazole Sodium (PROTONIX VIAL for IV PUSH) 40 mg DAILYAC 07/27/18 11:30 07/28/18 10:43 DC 07/28/18 07:54 40 MG Pantoprazole Sodium (Protonix) 40 mg DAILYAC 07/29/18 07:30 08/05/18 07:52 40 MG Piperacillin Sod/ Tazobactam Sod (Zosyn Per Pharmacy) 1 each PRN DAILY PRN 07/19/18 14:45 07/24/18 11:11 DC Piperacillin Sod/ Tazobactam Sod 2.25 gm/Sodium Chloride 50 ml @ 100 mls/hr Q8HRS 07/25/18 09:30 07/28/18 09:31 DC 07/28/18 05:07 100 MLS/HR Polyethylene Glycol (miraLAX PACKET) 17 gm PRN DAILY PRN 08/05/18 13:15 Prednisone (Prednisone) 20 mg DAILY 08/02/18 09:00 08/05/18 07:52 20 MG Sennosides (Senna) 8.6 mg DAILY 07/20/18 09:00 08/04/18 08:52 8.6 MG Sevelamer Carbonate (Renvela) 2.4 gm TIDWMEALS 07/19/18 17:00 08/05/18 13:57 2.4 GM Sodium Monofluorophosphate (Fleet Adult) 133 ml PRN DAILY PRN 07/19/18 19:45 07/22/18 12:17 DC Sodium Chloride 1,000 ml @ 400 mls/hr Q2H30M PRN 08/05/18 07:17 08/05/18 19:16 Sodium Chloride (Normal Saline Flush) 10 ml 1X PRN PRN 08/05/18 07:30 08/06/18 07:29 Temazepam (Restoril) 7.5 mg PRN QHS PRN 07/19/18 14:45 07/22/18 20:42 7.5 MG Vitamin B Complex/ Vitamin C (Bela-Roland) 1 tab DAILYBFRSUP 07/19/18 17:00 08/04/18 17:11 1 TAB Vitamin D (Vitamin D3) 1,000 unit DAILY 07/20/18 09:00 08/05/18 07:52 1,000 UNIT Warfarin Sodium (Coumadin - No Dose Today) 1 each 1X WARF ONCE 08/01/18 16:00 08/01/18 17:29 DC Warfarin Sodium (Coumadin Per Pharmacy) 1 each PRN DAILY PRN 07/29/18 09:00 08/05/18 14:01 DC 07/31/18 14:57 1 EACH Warfarin Sodium (Coumadin) 2 mg 1X WARF ONCE 07/31/18 16:00 07/31/18 16:01 Cancel Lab Laboratory Tests Test 08/04/18 16:38 08/04/18 21:06 08/05/18 05:50 08/05/18 07:54 Glucose (Fingerstick) 232 mg/dL (70-99) 265 mg/dL (70-99) 48 mg/dL (70-99) White Blood Count 9.3 x10^3/uL (4.0-11.0) Red Blood Count 2.60 x10^6/uL (3.50-5.40) Hemoglobin 9.2 g/dL (12.0-15.5) Hematocrit 28.5 % (36.0-47.0) Mean Corpuscular Volume 110 fL (79-100) Mean Corpuscular Hemoglobin 35 pg (25-35) Mean Corpuscular Hemoglobin Concent 32 g/dL (31-37) Red Cell Distribution Width 21.8 % (11.5-14.5) Platelet Count 98 x10^3/uL (140-400) Neutrophils (%) (Auto) 70 % (31-73) Lymphocytes (%) (Auto) 15 % (24-48) Monocytes (%) (Auto) 10 % (0-9) Eosinophils (%) (Auto) 2 % (0-3) Basophils (%) (Auto) 2 % (0-3) Neutrophils # (Auto) 6.5 x10^3uL (1.8-7.7) Lymphocytes # (Auto) 1.4 x10^3/uL (1.0-4.8) Monocytes # (Auto) 1.0 x10^3/uL (0.0-1.1) Eosinophils # (Auto) 0.2 x10^3/uL (0.0-0.7) Basophils # (Auto) 0.2 x10^3/uL (0.0-0.2) Prothrombin Time 14.3 SEC (11.7-14.0) Prothromb Time International Ratio 1.1 (0.8-1.1) Sodium Level 139 mmol/L (136-145) Potassium Level 5.0 mmol/L (3.5-5.1) Chloride Level 100 mmol/L (98-107) Carbon Dioxide Level 30 mmol/L (21-32) Anion Gap 9 (6-14) Blood Urea Nitrogen 39 mg/dL (7-20) Creatinine 4.0 mg/dL (0.6-1.0) Estimated GFR (Cockcroft-Gault) 10.6 BUN/Creatinine Ratio 10 (6-20) Glucose Level 100 mg/dL (70-99) Calcium Level 7.4 mg/dL (8.5-10.1) Total Bilirubin 1.1 mg/dL (0.2-1.0) Aspartate Amino Transf (AST/SGOT) 19 U/L (15-37) Alanine Aminotransferase (ALT/SGPT) 22 U/L (14-59) Alkaline Phosphatase 160 U/L (46-116) Total Protein 5.7 g/dL (6.4-8.2) Albumin 2.7 g/dL (3.4-5.0) Albumin/Globulin Ratio 0.9 (1.0-1.7) Test 08/05/18 08:19 08/05/18 13:46 Glucose (Fingerstick) 55 mg/dL (70-99) 126 mg/dL (70-99) Results All relevant outside records, renal labs, imaging studies, telemetry/EKG's were reviewed. ASHU GARDINER MD Aug 05, 2018 14:57
[2018-08-05] MEDS: FOLIC/VIT B COMP W-C (RENAL) TABLET. PO SCH (16:37)
[2018-08-05] MEDS: DIGOXIN 125 MCG TABLET. PO SCH (16:38)
--- NOTE | 2018-08-05 19:29 | NUR ---
Pt. returned from dialysis at 1745. FSBS checked reads 49. Pt. alert and oriented no s/s of hypoglycemia. Gave pt 2 cups apple use Addendum: 08/05/18 at 1933 by KITA MEREDITH RN RN juice. Rechecked BS at 1800 and reads 67. Pt ate super and checked immediately after at 116. contacted and ok with following through with discharge pt.
[2018-08-05 19:30] VITALS: BP 145/107
[2018-08-05] MEDS ORDERED: DEXTROSE 50% 25 GM / 50ML DISP.SYRIN. IV PRN (19:30)
[2018-08-05] MEDS: INSULIN GLARGINE 300 UNITS/3 ML INSULN.PEN. SQ SCH (21:35)
[2018-08-05] MEDS: LATANOPROST 0.005% OPHTH SOLUTION 2.5ML BOTTLE. OU SCH (21:36)
[2018-08-05 23:25] VITALS: BP 133/83
[2018-08-06 03:22] VITALS: BP 115/54
[2018-08-06] MEDS: PANTOPRAZOLE 40 MG TABLET.DR. PO SCH (06:41)
[2018-08-06] MEDS: MIDODRINE 2.5 MG TABLET PO SCH ×2 (06:42→13:47)
[2018-08-06 07:00] VITALS: BP 107/51
[2018-08-06 07:12] LABS: PROTHROMBIN TIME PATIENT 14.9 SEC (11.7-14.0)
[2018-08-06] MEDS: IPRATRPIUM/ALBUTEROL 0.5/2.5MG 3 ML NEBU. NEB SCH ×3 (07:41→15:41)
[2018-08-06] MEDS: INSULIN LISPRO 300 UNITS/3 ML INSULN.PEN. SQ SCH ×2 (08:00→12:08)
[2018-08-06] MEDS: CHOLECALCIFEROL (VITAMIN D3) 1,000 UNIT TABLET PO SCH (08:08)
[2018-08-06] MEDS: predniSONE 20 MG TABLET PO SCH (08:08)
[2018-08-06] MEDS: ASPIRIN 325 MG TABLET PO SCH (08:08)
[2018-08-06] MEDS: SEVELAMER CARBONATE 2.4 GM PACKET. PO SCH ×2 (08:08→12:05)
[2018-08-06] MEDS: CALCITRIOL 0.25 MCG CAPSULE. PO SCH (08:08)
[2018-08-06] MEDS: LACTOBACILLUS RHAMNOSUS GG 1 CAPSULE. PO SCH (08:08)
[2018-08-06] MEDS: guaiFENesin DM 200MG/20MG 10 ML SYRUP PO SCH ×2 (08:09→13:46)
[2018-08-06] MEDS: CINACALCET HCL 30 MG TABLET PO SCH (08:09)
[2018-08-06] MEDS: SENNOSIDES 8.6 MG TABLET PO SCH (08:17)
[2018-08-06] MEDS: DICLOFENAC SODIUM 1% TOPICAL GEL 100GM TUBE. TP SCH (08:17)
[2018-08-06] MEDS ORDERED: DOCUSATE SODIUM 100 MG CAPSULE. PO PRN (09:00)
--- NOTE | 2018-08-06 09:46 | NUR ---
SS following up with discharge planning. SS phoned and faxed clinical updates and discharge orders to [facility], ; [phone]. [facility] contacted and reported that pt was third on the list for a bed today. [facility] reported that they would contact SS for transport once bed was available. Pt's RN notified.
--- NOTE | 2018-08-06 10:16 | PDOC ---
SUBJECTIVE ROS Stable, no new concerns voiced OBJECTIVE Vital Signs Vital Signs Date Time Temp Pulse Resp B/P (MAP) Pulse Ox O2 Delivery O2 Flow Rate FiO2 08/06/18 07:43 100 Room Air 08/06/18 07:00 98.3 81 16 107/51 (69) 98.3 08/05/18 14:25 2.0 I & 0 Intake and Output 08/06/18 06:59 Intake Total 440 ml Output Total 0 ml Balance 440 ml Intake Oral 440 ml Output Urine Total 0 ml # Bowel Movements 3 PHYSICAL EXAM Physical Exam Physical Exam General: Alert, No acute distress Lungs: Crackles (less crackles) Cardiovascular: S1, S2 Abdomen: Soft Neuro Exam: Alert Extremities: Other (EDEMA L) Skin: Warm DIAGNOSIS/ASSESSMENT Assessment & Plan ESRD- TTS No indication for HD today Chronic anemia - On Aranesp Dyspnea- stable Dysphagia, malnutrition Awaiting transfer to [facility] US Rt UE -- 1. Patent AV fistula in the right upper arm containing a small bit of thrombus. 2. Small hypoechoic process adjacent to the fistula at the lateral antecubital fossa level, most likely representing a small hematoma. COMMENT/RELEVANT DATA Meds Current Medications Medications (Trade) Dose Ordered Sig/Homa Start Time Stop Time Status Last Admin Dose Admin Acetaminophen (Tylenol) 500 mg PRN Q6HRS PRN 07/19/18 14:45 Albumin Human 200 ml @ 200 mls/hr 1X PRN PRN 08/05/18 07:30 08/05/18 13:29 DC Albuterol/ Ipratropium (Duoneb) 3 ml RTQID 07/19/18 16:00 08/06/18 07:41 3 ML Amino Acids/ Glycerin/ Electrolytes 1,000 ml @ 50 mls/hr Q20H 07/24/18 17:00 07/29/18 08:56 DC 07/28/18 21:12 50 MLS/HR Amoxicillin/ Clavulanate Potassium (Augmentin 500/ 125mg) 1 tab BID 07/24/18 09:00 07/25/18 09:21 DC 07/24/18 11:16 1 TAB Aspirin (Tracee Aspirin) 325 mg DAILY 07/19/18 15:00 08/06/18 08:08 325 MG Barium Sulfate (Varibar Thin Liquid Apple) 148 gm 1X ONCE 07/26/18 13:30 07/26/18 13:31 DC 07/26/18 13:30 148 GM Bisacodyl (Dulcolax Supp) 10 mg PRN DAILY PRN 07/19/18 19:45 Calcitriol (Rocaltrol) 0.25 mcg DAILY 07/20/18 09:00 08/06/18 08:08 0.25 MCG Carvedilol (Coreg) 3.125 mg BIDWMEALS 07/19/18 17:00 07/19/18 19:42 DC Cinacalcet (Sensipar) 30 mg DAILY 07/19/18 15:00 08/06/18 08:09 30 MG Darbepoetin Donte (Aranesp) 60 mcg Mo 08/04/18 21:00 08/04/18 21:31 60 MCG Dextrose (Dextrose 50%-Water Syringe) 12.5 gm PRN Q15MIN PRN 08/05/18 19:30 Diclofenac Sodium (Voltaren) 1 grisel BID 07/19/18 21:00 08/05/18 21:29 1 GRISEL Digoxin (Lanoxin) 125 mcg QTUTHSA 07/24/18 16:00 08/05/18 16:38 125 MCG Diphenhydramine HCl (Benadryl) 25 mg 1X PRN PRN 07/25/18 08:30 07/26/18 08:29 DC Docusate Sodium (Colace) 100 mg PRN BID PRN 08/06/18 09:00 Dopamine HCl/ Dextrose 250 ml @ 6.124 mls/ hr CONT PRN 07/20/18 12:00 07/26/18 14:13 DC 07/24/18 20:37 30.618 MLS/HR Fentanyl (Duragesic 12mcg/ Hr Patch) 1 patch Q3DAYS 07/19/18 15:00 07/19/18 19:42 DC Furosemide (Lasix) 40 mg 1X ONCE 07/19/18 14:45 07/19/18 14:52 DC 07/19/18 14:52 40 MG Guaifenesin (Robitussin Dm) 10 ml QID 07/19/18 17:00 08/06/18 08:09 10 ML Heparin Sodium (Porcine) (Heparin Sodium) 1,300 unit PRN Q6HRS PRN 07/24/18 19:30 07/25/18 23:25 1,300 UNIT Heparin Sodium/ Dextrose 500 ml @ 0 mls/hr CONT PRN 07/24/18 19:45 07/30/18 04:32 18.8 MLS/HR Hydromorphone HCl (Dilaudid) 2 mg PRN Q8HRS PRN 07/19/18 15:00 07/20/18 09:31 DC Info (Anti-Coagulation Monitoring By Pharmacy) 1 each PRN DAILY PRN 07/25/18 11:30 07/31/18 15:00 1 EACH Info (PHARMACY MONITORING -- do not chart) 1 each PRN DAILY PRN 08/05/18 07:30 UNV Insulin Glargine (Lantus) 8 units QHS 08/03/18 21:00 08/05/18 21:35 8 UNITS Insulin Human Lispro (HumaLOG) 0-5 UNITS TIDWMEALS 08/06/18 08:00 Lactobacillus Rhamnosus (Culturelle) 1 cap BID 07/20/18 21:00 08/06/18 08:08 1 CAP Latanoprost (Xalatan) 1 drop QHS 07/19/18 21:00 08/05/18 21:36 1 DROP Magnesium Hydroxide (Milk Of Magnesia) 2,400 mg PRN DAILY PRN 07/19/18 19:45 Magnesium Sulfate 50 ml @ 25 mls/hr PRN DAILY PRN 07/20/18 09:45 Methylprednisolone Sodium Succinate (SOLU-Medrol 40MG VIAL) 40 mg Q8HRS 07/20/18 14:00 08/01/18 09:32 DC 08/01/18 06:05 40 MG Midodrine (Proamatine) 2.5 mg [id number] 07/22/18 13:00 08/06/18 06:42 2.5 MG Nitroglycerin (Nitrostat) 0.4 mg PRN Q5MIN PRN 07/19/18 14:30 07/20/18 14:29 DC Non-Formulary Medication (Latanoprost/Pf (Latanoprost 0.005% Eye Drop)) 7.5 ml QHS 07/19/18 21:00 UNV Ondansetron HCl (Zofran Odt) 4 mg PRN Q6HRS PRN 07/19/18 14:45 Ondansetron HCl (Zofran) 4 mg PRN Q8HRS PRN 07/19/18 14:30 07/20/18 14:29 DC Pantoprazole Sodium (PROTONIX VIAL for IV PUSH) 40 mg DAILYAC 07/27/18 11:30 07/28/18 10:43 DC 07/28/18 07:54 40 MG Pantoprazole Sodium (Protonix) 40 mg DAILYAC 07/29/18 07:30 08/06/18 06:41 40 MG Piperacillin Sod/ Tazobactam Sod (Zosyn Per Pharmacy) 1 each PRN DAILY PRN 07/19/18 14:45 07/24/18 11:11 DC Piperacillin Sod/ Tazobactam Sod 2.25 gm/Sodium Chloride 50 ml @ 100 mls/hr Q8HRS 07/25/18 09:30 07/28/18 09:31 DC 07/28/18 05:07 100 MLS/HR Polyethylene Glycol (miraLAX PACKET) 17 gm PRN DAILY PRN 08/05/18 13:15 Prednisone (Prednisone) 20 mg DAILY 08/02/18 09:00 08/06/18 08:08 20 MG Sennosides (Senna) 8.6 mg DAILY 07/20/18 09:00 08/04/18 08:52 8.6 MG Sevelamer Carbonate (Renvela) 2.4 gm TIDWMEALS 07/19/18 17:00 08/06/18 08:08 2.4 GM Sodium Monofluorophosphate (Fleet Adult) 133 ml PRN DAILY PRN 07/19/18 19:45 07/22/18 12:17 DC Sodium Chloride 1,000 ml @ 400 mls/hr Q2H30M PRN 08/05/18 07:17 08/05/18 19:16 DC Sodium Chloride (Normal Saline Flush) 10 ml 1X PRN PRN 08/05/18 07:30 08/06/18 07:29 DC Temazepam (Restoril) 7.5 mg PRN QHS PRN 07/19/18 14:45 07/22/18 20:42 7.5 MG Vitamin B Complex/ Vitamin C (Bela-Roland) 1 tab DAILYBFRSUP 07/19/18 17:00 08/05/18 16:37 1 TAB Vitamin D (Vitamin D3) 1,000 unit DAILY 07/20/18 09:00 08/06/18 08:08 1,000 UNIT Warfarin Sodium (Coumadin - No Dose Today) 1 each 1X WARF ONCE 08/01/18 16:00 08/01/18 17:29 DC Warfarin Sodium (Coumadin Per Pharmacy) 1 each PRN DAILY PRN 07/29/18 09:00 08/05/18 14:01 DC 07/31/18 14:57 1 EACH Warfarin Sodium (Coumadin) 2 mg 1X WARF ONCE 07/31/18 16:00 07/31/18 16:01 Cancel Lab Laboratory Tests Test 08/05/18 13:46 08/05/18 17:35 08/05/18 20:20 08/06/18 05:30 Glucose (Fingerstick) 126 mg/dL (70-99) 219 mg/dL (70-99) 255 mg/dL (70-99) Prothrombin Time 14.9 SEC (11.7-14.0) Prothromb Time International Ratio 1.2 (0.8-1.1) Test 08/06/18 07:30 Glucose (Fingerstick) 91 mg/dL (70-99) Results All relevant outside records, renal labs, imaging studies, telemetry/EKG's were reviewed. ASHU GARDINER MD Aug 06, 2018 10:16
--- NOTE | 2018-08-06 10:46 | PDOC ---
Objective: Objective: D/w staff - frequent stooling, incontinence, says she tells staff but doesn't. ?DC today Vital Signs: Vital Signs Date Time Temp Pulse Resp B/P (MAP) Pulse Ox O2 Delivery O2 Flow Rate FiO2 08/06/18 07:43 100 Room Air 08/06/18 07:00 98.3 81 16 107/51 (69) 98.3 08/05/18 14:25 2.0 Labs: Laboratory Tests Test 08/05/18 13:46 08/05/18 17:35 08/05/18 20:20 08/06/18 05:30 Glucose (Fingerstick) 126 mg/dL 219 mg/dL 255 mg/dL Prothrombin Time 14.9 SEC Prothromb Time International Ratio 1.2 Test 08/06/18 07:30 Glucose (Fingerstick) 91 mg/dL PE: GEN: NAD NEURO/PSYCH: sleeping, not awakened A/P: Chronic anemia Frequent stooling/incontinence - stool softeners and laxatives stopped yesterday -- DC per primary, consider fiber. REDD NAVARRO Aug 06, 2018 10:46
--- NOTE | 2018-08-06 10:47 | NUR ---
SS following up with discharge planning. [facility] contacted SS and requested pt transfer to them at 1400. Pt's RN and pt's daughter notified. Pt will discharge today and go to [facility] at 1400 via [facility].
[2018-08-06 11:00] VITALS: BP 115/48
--- NOTE | 2018-08-06 11:06 | PDOC ---
PULMONARY PROGRESS NOTES Subjective is tired, has occ cough, sob better. Vitals Vital Signs Date Time Temp Pulse Resp B/P (MAP) Pulse Ox O2 Delivery O2 Flow Rate FiO2 08/06/18 07:43 100 Room Air 08/06/18 07:00 98.3 81 16 107/51 (69) 98.3 08/05/18 14:25 2.0 ROS: No Nausea, No Chest Pain, No Abdominal Pain, No Increase Cough General: Alert, No acute distress Lungs: Clear Cardiovascular: S1, S2 Abdomen: Soft Neuro Exam: Alert Extremities: Other (EDEMA L) Skin: Warm Labs Laboratory Tests Test 08/04/18 11:26 08/04/18 16:38 08/04/18 21:06 08/05/18 05:50 Glucose (Fingerstick) 148 mg/dL (70-99) 232 mg/dL (70-99) 265 mg/dL (70-99) White Blood Count 9.3 x10^3/uL (4.0-11.0) Red Blood Count 2.60 x10^6/uL (3.50-5.40) Hemoglobin 9.2 g/dL (12.0-15.5) Hematocrit 28.5 % (36.0-47.0) Mean Corpuscular Volume 110 fL (79-100) Mean Corpuscular Hemoglobin 35 pg (25-35) Mean Corpuscular Hemoglobin Concent 32 g/dL (31-37) Red Cell Distribution Width 21.8 % (11.5-14.5) Platelet Count 98 x10^3/uL (140-400) Neutrophils (%) (Auto) 70 % (31-73) Lymphocytes (%) (Auto) 15 % (24-48) Monocytes (%) (Auto) 10 % (0-9) Eosinophils (%) (Auto) 2 % (0-3) Basophils (%) (Auto) 2 % (0-3) Neutrophils # (Auto) 6.5 x10^3uL (1.8-7.7) Lymphocytes # (Auto) 1.4 x10^3/uL (1.0-4.8) Monocytes # (Auto) 1.0 x10^3/uL (0.0-1.1) Eosinophils # (Auto) 0.2 x10^3/uL (0.0-0.7) Basophils # (Auto) 0.2 x10^3/uL (0.0-0.2) Prothrombin Time 14.3 SEC (11.7-14.0) Prothromb Time International Ratio 1.1 (0.8-1.1) Sodium Level 139 mmol/L (136-145) Potassium Level 5.0 mmol/L (3.5-5.1) Chloride Level 100 mmol/L (98-107) Carbon Dioxide Level 30 mmol/L (21-32) Anion Gap 9 (6-14) Blood Urea Nitrogen 39 mg/dL (7-20) Creatinine 4.0 mg/dL (0.6-1.0) Estimated GFR (Cockcroft-Gault) 10.6 BUN/Creatinine Ratio 10 (6-20) Glucose Level 100 mg/dL (70-99) Calcium Level 7.4 mg/dL (8.5-10.1) Total Bilirubin 1.1 mg/dL (0.2-1.0) Aspartate Amino Transf (AST/SGOT) 19 U/L (15-37) Alanine Aminotransferase (ALT/SGPT) 22 U/L (14-59) Alkaline Phosphatase 160 U/L (46-116) Total Protein 5.7 g/dL (6.4-8.2) Albumin 2.7 g/dL (3.4-5.0) Albumin/Globulin Ratio 0.9 (1.0-1.7) Test 08/05/18 07:54 08/05/18 08:19 08/05/18 13:46 08/05/18 17:35 Glucose (Fingerstick) 48 mg/dL (70-99) 55 mg/dL (70-99) 126 mg/dL (70-99) 219 mg/dL (70-99) Test 08/05/18 20:20 08/06/18 05:30 08/06/18 07:30 Glucose (Fingerstick) 255 mg/dL (70-99) 91 mg/dL (70-99) Prothrombin Time 14.9 SEC (11.7-14.0) Prothromb Time International Ratio 1.2 (0.8-1.1) Laboratory Tests Test 08/05/18 13:46 08/05/18 17:35 08/05/18 20:20 08/06/18 05:30 Glucose (Fingerstick) 126 mg/dL (70-99) 219 mg/dL (70-99) 255 mg/dL (70-99) Prothrombin Time 14.9 SEC (11.7-14.0) Prothromb Time International Ratio 1.2 (0.8-1.1) Test 08/06/18 07:30 Glucose (Fingerstick) 91 mg/dL (70-99) Medications Active Scripts Medications Dose Route/Sig Max Daily Dose Days Date Category Dose Instructions Senna (Sennosides) 8.6 Mg Tablet 8.6 Mg PO DAILY 07/19/18 Reported Novolog Flexpen (Insulin Aspart) 100 Unit/1 Ml Insuln.pen 1 Unit SQ TIDAC 07/19/18 Reported Miralax (Polyethylene Glycol 3350) 17 Gm Powd.pack 1 Packet PO BID 07/19/18 Reported Milk Of Magnesia (Magnesium Hydroxide) 400 Mg/5 Ml Oral.susp 30 Ml PO PRN DAILY 07/19/18 Reported Duoneb 0.5-3(2.5) Mg/3 Ml (Albuterol/Ipratropium) 3 Ml Ampul.neb 3 Ml NEB TID 07/19/18 Reported Fleet Enema (Na Phos,M-B/Na Phos,Di-Ba) 133 Ml Enema 1 Each RC PRN DAILY PRN 07/19/18 Reported Dulcolax (Bisacodyl) 10 Mg Supp.rect 10 Mg RC PRN DAILY PRN 07/19/18 Reported Docusate Sodium 100 Mg Capsule 1 Cap PO BID 07/19/18 Reported Carvedilol (Carvedilol) 12.5 Mg Tablet 12.5 Mg PO BIDWMEALS 07/19/18 Reported Levemir (Insulin Detemir) 100 Unit/1 Ml Vial 5 Unit SQ QHS 30 07/15/18 Rx Hold for < 140mg/dL Acetaminophen 500 Mg Tablet 500 Mg PO PRN Q6HRS PRN 30 07/14/18 Rx Aspirin 325 Mg Tablet 1 Tab PO DAILY 04/16/18 Rx Protonix (Pantoprazole Sodium) 20 Mg Tablet.dr 40 Mg PO DAILY 11/06/17 Reported Voltaren (Diclofenac Sodium) 100 Gm Gel..gram. 1 Gm TP BID 11/06/17 Reported Zofran Odt (Ondansetron) 4 Mg Tab.rapdis 4 Mg PO Q6HRS PRN 10/30/17 Reported Sensipar (Cinacalcet Hcl) 30 Mg Tablet 1 Tab PO DAILY 02/04/17 Reported Renvela (Sevelamer Carbonate) 2.4 Gm Powd.pack 2.4 Gm PO TIDWMEALS 02/04/17 Reported Lumigan (Bimatoprost) 2.5 Ml Drops 1 Drop EACHEYE QHS 02/04/17 Reported Calcitriol 0.25 Mcg Capsule 1 Cap PO DAILY 01/18/17 Reported Nephro-Roland Tablet (Folic Acid/Vitamin B Comp W-C) 0.8 Mg Tablet 1 Tab PO DAILYBFRSUP 11/26/15 Reported Vitamin D (Cholecalciferol (Vitamin D3)) 2,000 Unit Capsule 1 Cap PO DAILY 11/26/15 Reported Impression . IMPRESSION: 1. Dyspnea with cough and mild bronchospasm POA, likely related to viral pneumonitis, triggering bronchospasm POA. She may have adult onset reactive airway disease. resolved now 2. Recent abnormal CT chest on 07/11 suggesting upper lobe viral pneumonitis. She has some ground glass infiltrates at that time. 3. End-stage renal disease, on hemodialysis. 4. Underlying obesity. 5. Chronic hypoxic respiratory failure, on home oxygen 2 liters. 6 HYPOTENSION IMPROVED 7. LEONIE EXT BRACHIAL CLOT /resolved Plan . RESP STATUS IMPROVED AWAITING LT[facility] EVAL/ APPROVAL CONTINUE THE SAME OFF HEPARIN/ COUMADIN FOR BRACHIAL CLOT DUE TO FISTULA BLEEDING. NO FURTHER AC PER VASCULAR/ REPEAT DOPPLERS NEG FOR ANY CLOT LEONIE EXT prednisone 20 mg daily/ Taper BD adan w rn, pt GIAN SHAFFER MD Aug 06, 2018 11:06
--- NOTE | 2018-08-06 11:26 | PDOC3 ---
Discharge Summary Visit Information Date of Admission: Jul 19, 2018 Date of Discharge: Aug 04, 2018 Admitting Diagnosis: HCAP Final Diagnosis SOA, fluid overload HCAP treated ESRD on dialysis Existing AV fistula Hypotension, resolved now hypertension Anemia of chronic disease severe Generalized weakness SNU resident, now requiring LTAC Diabetes type 2 insulin requiring hypotension resolved dysphagia, malnutrition MARKED DEBILITY, WEAKNESS Long-term SNU resident-HCR Occlusive thrombus in one brachial vein in the left upper arm surrounding an indwelling PICC line, no anticoagulation deemed necessary as per vascular surgery Dysphagia II diet w/ thin liquids Hx bleed Brief Hospital Course Allergies Allergies Coded Allergies Type Severity Reaction Last Updated Verified No Known Medication Allergies Allergy Unknown 08/01/18 Yes morphine Adverse Reaction Intermediate HALLUCINATIONS 08/13/16 Yes Vital Signs Vital Signs Date Time Temp Pulse Resp B/P (MAP) Pulse Ox O2 Delivery O2 Flow Rate FiO2 08/06/18 07:43 100 Room Air 08/06/18 07:00 98.3 81 16 107/51 (69) 98.3 08/05/18 14:25 2.0 GENERAL: Propped up in bed, awake, Looks well HEENT: anicteric getting breathing treatment LUNGS: Mild congestion - bilat HEART: S1, S2. ABDOMEN: , soft and nontender. EXTREMITIES: No edema, no cyanosis. SKIN: No generalized rash. Chronic skin changes present in both lower extremities. [employer]GER: Awake, appropriate RIJ (07/25) without signs of any complications Lab Results Laboratory Tests Test 08/04/18 11:26 08/04/18 16:38 08/04/18 21:06 08/05/18 05:50 Glucose (Fingerstick) 148 mg/dL (70-99) 232 mg/dL (70-99) 265 mg/dL (70-99) White Blood Count 9.3 x10^3/uL (4.0-11.0) Red Blood Count 2.60 x10^6/uL (3.50-5.40) Hemoglobin 9.2 g/dL (12.0-15.5) Hematocrit 28.5 % (36.0-47.0) Mean Corpuscular Volume 110 fL (79-100) Mean Corpuscular Hemoglobin 35 pg (25-35) Mean Corpuscular Hemoglobin Concent 32 g/dL (31-37) Red Cell Distribution Width 21.8 % (11.5-14.5) Platelet Count 98 x10^3/uL (140-400) Neutrophils (%) (Auto) 70 % (31-73) Lymphocytes (%) (Auto) 15 % (24-48) Monocytes (%) (Auto) 10 % (0-9) Eosinophils (%) (Auto) 2 % (0-3) Basophils (%) (Auto) 2 % (0-3) Neutrophils # (Auto) 6.5 x10^3uL (1.8-7.7) Lymphocytes # (Auto) 1.4 x10^3/uL (1.0-4.8) Monocytes # (Auto) 1.0 x10^3/uL (0.0-1.1) Eosinophils # (Auto) 0.2 x10^3/uL (0.0-0.7) Basophils # (Auto) 0.2 x10^3/uL (0.0-0.2) Prothrombin Time 14.3 SEC (11.7-14.0) Prothromb Time International Ratio 1.1 (0.8-1.1) Sodium Level 139 mmol/L (136-145) Potassium Level 5.0 mmol/L (3.5-5.1) Chloride Level 100 mmol/L (98-107) Carbon Dioxide Level 30 mmol/L (21-32) Anion Gap 9 (6-14) Blood Urea Nitrogen 39 mg/dL (7-20) Creatinine 4.0 mg/dL (0.6-1.0) Estimated GFR (Cockcroft-Gault) 10.6 BUN/Creatinine Ratio 10 (6-20) Glucose Level 100 mg/dL (70-99) Calcium Level 7.4 mg/dL (8.5-10.1) Total Bilirubin 1.1 mg/dL (0.2-1.0) Aspartate Amino Transf (AST/SGOT) 19 U/L (15-37) Alanine Aminotransferase (ALT/SGPT) 22 U/L (14-59) Alkaline Phosphatase 160 U/L (46-116) Total Protein 5.7 g/dL (6.4-8.2) Albumin 2.7 g/dL (3.4-5.0) Albumin/Globulin Ratio 0.9 (1.0-1.7) Test 08/05/18 07:54 08/05/18 08:19 08/05/18 13:46 08/05/18 17:35 Glucose (Fingerstick) 48 mg/dL (70-99) 55 mg/dL (70-99) 126 mg/dL (70-99) 219 mg/dL (70-99) Test 08/05/18 20:20 08/06/18 05:30 08/06/18 07:30 Glucose (Fingerstick) 255 mg/dL (70-99) 91 mg/dL (70-99) Prothrombin Time 14.9 SEC (11.7-14.0) Prothromb Time International Ratio 1.2 (0.8-1.1) Laboratory Tests Test 08/05/18 13:46 08/05/18 17:35 08/05/18 20:20 08/06/18 05:30 Glucose (Fingerstick) 126 mg/dL (70-99) 219 mg/dL (70-99) 255 mg/dL (70-99) Prothrombin Time 14.9 SEC (11.7-14.0) Prothromb Time International Ratio 1.2 (0.8-1.1) Test 08/06/18 07:30 Glucose (Fingerstick) 91 mg/dL (70-99) Brief Hospital Course Ms. Hua is a 87 old female who presented with inability to be cared for at [facility]. 87-year-old female with history of end-stage renal disease, on hemodialysis, who missed her dialysis session, presented to the ER on 07/19/2018 with difficulty breathing week prior to admission and was found to have low blood pressure while at dialysis the same day. The patient was recently treated for pneumonia. She denied any fevers or chills. She is a long-term resident. The patient had leukocytosis with a high BNP. Influenza screen was negative. Chest x-ray showed mild linear atelectasis or fibrotic change of the mid left hemothorax. There is enlargement of the pericardial cardiac silhouette. The patient was admitted with a working diagnosis of CHF. She also had some wheezing. Pulmonary was consulted. She was started on IV Zosyn and received Solu-Medrol. Recent CT on 07/11 had suggested upper lobe viral pneumonitis with ground-glass infiltrate at that time. ID consult was requested for antibiotic management. She did not have wheezing. Denied any fevers, chills, nausea, vomiting, diarrhea, abdominal pain, headache,visual disturbances, oral sores, difficulty swallowing, focal weakness. At some point the patient required pressor support due to hypotension. He was taking off her beta leeanna and Norvasc and was placed on middle drain patient is currently a DO NOT RESUSCITATE status. The patient had bleeding off her AV fistula and she was on warfarin for chronic atrial fibrillation, this was stopped due to the above-mentioned bleeding fistula. This can probably be restarted within the next couple weeks She was treated for healthcare associated pneumonia and finished her course on 07/19/2018. Given the multitude of comorbidities and her advanced age a palliative care consult was requested on 07/22/2018. Patient on the day of discharge is in good spirits greater than 35 minutes were spent in the discharge process the patient in counseling coronation of care and arrangements for a safe transfer to LTAC Discharge Information Condition at Discharge: Improved Follow Up: Weeks Disposition/Orders: D/C to Home Scheduled Bimatoprost (Lumigan) 2.5 Ml Drops, 1 DROP EACHEYE QHS, #7.5 Ref 3 (Reported) Entered as Reported by: MUNDO TODD on 02/04/171833 Last Action: Converted on 07/19/181432 by ERINN ROCKWELL Calcitriol (Calcitriol) 0.25 Mcg Capsule, 1 CAP PO DAILY for calcium replacement , #30 Ref 5 (Reported) Entered as Reported by: ESTEE MYERS on 01/18/17 1516 Last Action: Converted on 07/19/181432 by ERINN ROCKWELL Cholecalciferol (Vitamin D3) (Vitamin D) 2,000 Unit Capsule, 1 CAP PO DAILY, # 30 Ref 3 (Reported) Entered as Reported by: HECTOR CLEVELAND on 11/26/15 195 Last Action: Converted on 07/19/181432 by ERINN ROCKWELL Cinacalcet Hcl (Sensipar) 30 Mg Tablet, 1 TAB PO DAILY, #30 Ref 11 (Reported) Entered as Reported by: MUNDO TODD on 02/04/171833 Last Action: Continued on 07/19/181432 by ERINN ROCKWELL Diclofenac Sodium (Voltaren) 100 Gm Gel..gram., 1 GM TP BID, #100 Ref 2 ( Reported) Entered as Reported by: COLLEEN PAREDES on 11/06/17754 Last Action: Continued on 07/19/181432 by ERINN ROCKWELL Digoxin (Digoxin) 125 Mcg Tablet, 125 MCG PO QTUTHSA for a fib MDD 1, #90 Prescribed by: ERINN ROCKWELL on 08/04/18 0851 Docusate Sodium (Docusate Sodium) 100 Mg Capsule, 1 CAP PO BID for constipation , #30 (Reported) Entered as Reported by: THOMPSON LEYVA on 07/19/181699 Last Action: Continued on 07/19/181936 by THOMPSON LEYVA Folic Acid/Vitamin B Comp W-C (Nephro-Roland Tablet) 0.8 Mg Tablet, 1 TAB PO DAILYBFRSUP, #90 Ref 3 (Reported) Entered as Reported by: HECTOR CLEVELAND on 11/26/151950 Last Action: Continued on 07/19/181432 by ERINN ROCKWELL Insulin Glargine,Hum.rec.anlog (Lantus Solostar) 100 Unit/1 Ml Insuln.pen, 8 UNITS SQ QHS for dm MDD 1, #30 Prescribed by: ERINN ROCKWELL on 08/04/18 0851 Ipratropium/Albuterol Sulfate (Duoneb 0.5-3(2.5) Mg/3 Ml) 3 Ml Ampul.neb, 3 ML NEB TID for cough, (Reported) Entered as Reported by: THOMPSON LEYVA on 07/19/181699 Last Action: New Order on 07/19/181699 by THOMPSON LEYVA Magnesium Hydroxide (Milk Of Magnesia) 400 Mg/5 Ml Oral.susp, 30 ML PO PRN DAILY for bowel care, (Reported) Entered as Reported by: THOMPSON LEYVA on 07/19/181699 Last Action: Continued on 07/19/181936 by THOMPSON LEYVA Midodrine Hcl (Midodrine Hcl) 2.5 Mg Tablet, 2.5 MG PO [id number] for hypotension MDD 1, #90 Prescribed by: ERINN ROCKWELL on 08/04/18 0851 Pantoprazole Sodium (Protonix) 20 Mg Tablet.dr, 40 MG PO DAILY, (Reported) Entered as Reported by: COLLEEN PAREDES on 7/11/18 0755 Last Action: Converted on 07/19/181432 by ERINN ROCKWELL Polyethylene Glycol 3350 (Miralax) 17 Gm Powd.pack, 1 PACKET PO BID for constipation, #30 Ref 3 (Reported) Entered as Reported by: THOMPSON LEYVA on 07/19/181699 Last Action: Converted on 07/19/181936 by THOMPSON LEYVA Sennosides (Senna) 8.6 Mg Tablet, 8.6 MG PO DAILY for constipation, (Reported) Entered as Reported by: THOMPSON LEYVA on 07/19/181699 Last Action: Converted on 07/19/181936 by THOMPSON LEYVA Sevelamer Carbonate (Renvela) 2.4 Gm Powd.pack, 2.4 GM PO TIDWMEALS, (Reported) Entered as Reported by: MUNDO TODD on 02/04/17 1834 Last Action: Continued on 07/19/181432 by ERINN ROCKWELL Scheduled PRN Acetaminophen (Tylenol) 325 Mg Tablet, 2 TAB PO PRN Q6HRS PRN for PAIN, #30 ( Reported) Entered as Reported by: REYNOLD WALLER on 07/22/181514 Last Action: New Order on 07/22/181514 by REYNOLD WALLER Bisacodyl (Dulcolax) 10 Mg Supp.rect, 10 MG RC PRN DAILY PRN for CONSTIPATION, Ref 0 (Reported) Entered as Reported by: THOMPSON LEYVA on 07/19/181699 Last Action: Converted on 07/19/181936 by THOMPSON LEYVA Na Phos,M-B/Na Phos,Di-Ba (Fleet Enema) 133 Ml Enema, 1 EACH RC PRN DAILY PRN for CONSTIPATION, #1 (Reported) Entered as Reported by: THOMPSON LEYVA on 07/19/181699 Last Action: Continued on 07/19/181936 by THOMPSON LEYVA Ondansetron (Zofran Odt) 4 Mg Tab.rapdis, 4 MG PO Q6HRS PRN for NAUSEA/VOMITING, (Reported) Entered as Reported by: SONG PATTON on 10/30/17 0831 Last Action: Continued on 07/19/181432 by ERINN ROCKWELL Temazepam (Restoril) 7.5 Mg Capsule, 7.5 MG PO PRN QHS PRN for INSOMNIA MDD 1, # 30 Prescribed by: ERINN ROCKWELL on 08/04/18 0851 Discontinued Medications Amlodipine Besylate (Amlodipine Besylate) 10 Mg Tablet, 10 MG PO DAILY for HTN, (Reported) Entered as Reported by: REYNOLD WALLER on 07/22/181514 Last Action: New Order on 07/22/181514 by REYNOLD WALLER Aspirin (Aspirin) 325 Mg Tablet, 1 TAB PO DAILY, #30 Ref 0 Prescribed by: SIERRA HOBBS MD on 04/16/18 1749 Last Action: Continued on 07/19/181432 by ERINN ROCKWELL Carvedilol (Carvedilol ) 12.5 Mg Tablet, 12.5 MG PO BIDWMEALS for CARDIAC, ( Reported) Entered as Reported by: THOMPSON LEYVA on 07/19/181699 Last Action: New Order on 07/19/181699 by THOMPSON LEYVA Insulin Aspart (Novolog Flexpen) 100 Unit/1 Ml Insuln.pen, 1 UNIT SQ TIDAC for dm, (Reported) Entered as Reported by: THOMPSON LEYVA on 07/19/181699 Last Action: New Order on 07/19/181699 by THOMPSON LEYVA Insulin Detemir (Levemir) 100 Unit/1 Ml Vial, 5 UNIT SQ QHS for dm for 30 Days, #30 Hold for < 140mg/dL Prescribed by: MAHSA REYNOSO MD on 07/15/18 1329 Last Action: Converted on 07/19/181432 by ELIAZAR BEVERLY MD Aug 06, 2018 11:26
[2018-08-06 13:47] VITALS: BP 127/59
--- NOTE | 2018-08-06 18:41 | NUR ---
Discharge Note: JOHNNY BENÍTEZ [facility] Discharge instructions and discharge home medications reviewed with Other facility Rinku RN and a copy given. All questions have been answered and understanding verbalized. The following instructions and handouts were given: CHF, PNA Patient discharged with TL IJ [facility]
== END 2018-08-06 18:43 | DRG 871 ==
LOC: ER 12:34 → 2 NORTH 14:39 → 1 WEST ICU 07-23 18:00 → 2 SOUTH 07-25 23:50
PROVIDERS: ADMIT Internal Medicine; ATTEND Internal Medicine
PROC: 5A1D70Z Performance of Urinary Filtration, Intermittent, Less than 6 Hours Per Day (ICD-10-PCS; 2018-07-21)
PROC: 5A1D70Z Performance of Urinary Filtration, Intermittent, Less than 6 Hours Per Day (ICD-10-PCS; 2018-07-24)
PROC: 02HV33Z Insertion of Infusion Device into Superior Vena Cava, Percutaneous Approach (ICD-10-PCS; principal; 2018-07-25)
PROC: B548ZZA Ultrasonography of Superior Vena Cava, Guidance (ICD-10-PCS; 2018-07-25)
PROC: 5A1D70Z Performance of Urinary Filtration, Intermittent, Less than 6 Hours Per Day (ICD-10-PCS; 2018-07-25)
PROC: 5A1D70Z Performance of Urinary Filtration, Intermittent, Less than 6 Hours Per Day (ICD-10-PCS; 2018-07-26)
PROC: 5A1D70Z Performance of Urinary Filtration, Intermittent, Less than 6 Hours Per Day (ICD-10-PCS; 2018-07-29)
PROC: 5A1D70Z Performance of Urinary Filtration, Intermittent, Less than 6 Hours Per Day (ICD-10-PCS; 2018-07-31)
PROC: 5A1D70Z Performance of Urinary Filtration, Intermittent, Less than 6 Hours Per Day (ICD-10-PCS; 2018-08-02)
PROC: 5A1D70Z Performance of Urinary Filtration, Intermittent, Less than 6 Hours Per Day (ICD-10-PCS; 2018-08-05)
DX: A41.9 Sepsis, unspecified organism (principal); J12.9 Viral pneumonia, unspecified; N18.6 End stage renal disease; E43 Unspecified severe protein-calorie malnutrition; T82.868A Thrombosis due to vascular prosthetic devices, implants and grafts, initial encounter; I13.2 Hypertensive heart and chronic kidney disease with heart failure and with stage 5 chronic kidney disease, or end stage renal disease; I42.9 Cardiomyopathy, unspecified; I48.1 Persistent atrial fibrillation; I50.32 Chronic diastolic (congestive) heart failure; I82.622 Acute embolism and thrombosis of deep veins of left upper extremity; J44.0 Chronic obstructive pulmonary disease with (acute) lower respiratory infection; J94.2 Hemothorax; J96.11 Chronic respiratory failure with hypoxia; J98.11 Atelectasis; K62.5 Hemorrhage of anus and rectum; T82.838A Hemorrhage due to vascular prosthetic devices, implants and grafts, initial encounter; I95.3 Hypotension of hemodialysis; D53.9 Nutritional anemia, unspecified; D63.1 Anemia in chronic kidney disease; E21.3 Hyperparathyroidism, unspecified; E66.9 Obesity, unspecified; E78.00 Pure hypercholesterolemia, unspecified; I25.10 Atherosclerotic heart disease of native coronary artery without angina pectoris; I27.29 Other secondary pulmonary hypertension; I48.2 Chronic atrial fibrillation; I51.3 Intracardiac thrombosis, not elsewhere classified; I70.0 Atherosclerosis of aorta; J98.01 Acute bronchospasm; K59.00 Constipation, unspecified; R13.12 Dysphagia, oropharyngeal phase; Y84.1 Kidney dialysis as the cause of abnormal reaction of the patient, or of later complication, without mention of misadventure at the time of the procedure; Y95 Nosocomial condition; E11.22 Type 2 diabetes mellitus with diabetic chronic kidney disease; Z66 Do not resuscitate; Z74.01 Bed confinement status; Z79.01 Long term (current) use of anticoagulants; Z79.4 Long term (current) use of insulin; Z79.82 Long term (current) use of aspirin; Z79.899 Other long term (current) drug therapy; Z82.49 Family history of ischemic heart disease and other diseases of the circulatory system; Z87.440 Personal history of urinary (tract) infections; Z95.1 Presence of aortocoronary bypass graft; Z99.2 Dependence on renal dialysis; Z99.3 Dependence on wheelchair; Z99.81 Dependence on supplemental oxygen; Z88.8 Allergy status to other drugs, medicaments and biological substances; Z68.31 Body mass index [BMI] 31.0-31.9, adult
CPT/HCPCS: 36415; 36556; 36569; 71045; 71250; 74230; 76937; 80053; 80069; 82607; 82962; 83735; 83880; 84100; 84484; 85007; 85025; 85027; 85520; 85610; 85730; 87641; 87804; 93005; 93931; 93971; 94640; 94760; 96374; C1892; C9113; G0238; J0881; J1265; J1644; J1815; J1940; J2543; J2920; J7040; J7042; J7512; J7620; P9041; P9046; 92526; 92610; 92611; 97110; 97530; 97535; 99285-25